=== PATIENT | female | born 1970 | race Caucasian/White ===

== ENCOUNTER 2022-10-20 08:52 | Outpatient (OUT) | payer OTHER, SELFPAY ==
--- NOTE | 2022-10-20 | CT_ITS ---
[address] [address] Patient Name: SAI BURRIS MRN: [id number] date: 1970 Sex: F Assigned Patient Location: CT Current Patient Location: Accession/Order Number: [id number] Exam Date: 10/20/2022 09:00 Report Date: 10/22/2022 09:53 At the request of: PAMELA MAK Procedure: CT lung screening low-dose EXAMINATION: CT lung screening low-dose HISTORY: ENCOUNTER FOR SCREENING FOR MALIGNANT NEOPLASM COMPARISON: No relevant comparison available. TECHNIQUE: Axial, Coronal, and Sagittal images were created without the administration of IV contrast material. Dose reduction techniques were achieved by using automated exposure control and/or adjustment of mA and/or kV according to patient size and/or use of iterative reconstruction technique. FINDINGS: LUNGS: No visible pulmonary disease. PLEURA: No mass, effusion, or pneumothorax. VASCULATURE: No abnormality. RUTHY: No mass or pathologic adenopathy. MEDIASTINUM: No mass or pathologic adenopathy. CARDIAC: No enlargement, pericardial thickening, or significant calcification. AORTA: No aneurysm or dissection. CHEST WALL: No mass or axillary adenopathy BONES: Prominent left convex curvature of thoracic spine. No fracture or bone lesion. LIMITED ABDOMEN: No suspicious findings. Limited images of the upper abdomen. OTHER: Negative. CT/CT lung screening low-dose IMPRESSION: 1. Lung-RADS Category 1 Negative. No nodules and definitely benign nodules. Continue annual screening with LDCT in 12 months. Electronically authenticated by: BRITNI HARRISON Date: 10/22/2022 09:53
== END 2022-10-20 08:53 | disposition home or self-care (01) ==
LOC: CT 08:52
PROVIDERS: PCP Nurse Practitioner Primary Care; Visit Provider Nurse Practitioner Primary Care
DX: Z12.2 Encounter for screening for malignant neoplasm of respiratory organs (principal)
CPT/HCPCS: 71271

== ENCOUNTER 2023-03-02 11:09 | Outpatient (OUT) | payer OTHER, SELFPAY ==
[2023-03-02 11:38] LABS: Basophils Absolute Auto 0.1 10^3/uL (0.0-0.1); Basophils Percent Auto 0.7 % (0.2-2.0); Eosinophils Absolute Auto 0.3 10^3/uL (0.0-0.7); Eosinophils Percent Auto 3.5 % (0.9-7.0); Hematocrit 43.2 % (36.0-48.0); Hemoglobin 14.2 g/dL (12.0-16.0); Immature Granulocytes Abs Auto 0.03 10^3/uL (0.00-0.03); Immature Granulocytes Pct Auto 0.3 % (0.0-0.5); Lymphocytes Absolute Auto 2.7 10^3/uL (1.2-3.8); Lymphocytes Percent Auto 29.1 % (20.5-60.0); Mean Corpuscular HGB Conc 32.9 g/dL (29.9-35.2); Mean Corpuscular Hemoglobin 30.3 pg (26.7-34.0); Mean Corpuscular Volume 92.3 fL (81.0-99.0); Mean Platelet Volume 11.4 fL (9.5-13.5); Monocytes Absolute Auto 0.7 10^3/uL (0.3-0.8); Monocytes Percent Auto 7.5 % (1.7-12.0); Neutrophils Absolute Auto 5.4 10^3/uL (1.4-6.5); Neutrophils Percent Auto 58.9 % (43.0-75.0); Platelet Count 213 10^3/uL (150-450); Red Blood Count 4.68 10^6/uL (4.20-5.40); Red Cell Distribution Width 13.2 % (11.0-15.0); White Blood Count 9.2 10^3/uL (4.0-11.0)
[2023-03-02 11:49] LABS: Estimated Average Glucose 111 mg/dL; Glycohemoglobin A1C 5.5 % (4.5-6.2)
== END 2023-03-02 11:10 | disposition home or self-care (01) ==
LOC: LAB 11:09
PROVIDERS: PCP Nurse Practitioner Primary Care; Visit Provider Nurse Practitioner Primary Care
DX: Z00.00 Encounter for general adult medical examination without abnormal findings (principal); Z13.6 Encounter for screening for cardiovascular disorders; Z11.59 Encounter for screening for other viral diseases; Z11.4 Encounter for screening for human immunodeficiency virus [HIV]; Z13.29 Encounter for screening for other suspected endocrine disorder
CPT/HCPCS: 36415; 80053; 80061; 83036; 84443; 85025; 86803; 87389

== ENCOUNTER 2023-03-07 15:50 | Outpatient (OUT) | payer OTHER, SELFPAY ==
--- OUTSIDE RECORDS SUMMARY | 2023-03-07 15:54 | XMS_ITS | CCD ---
Author Name Unknown Address [address] [place] [address] Organization [facility] Care Team Providers Care Dust Box Tender Name Role Phone Cristina Iqbal CNP Primary Care Provider Vipin Pina Attending Unavailable Roshni Werner Attending Unavailable Cristina Iqbal CNP Primary Care Provider [phone] CRISTINA IQBAL Primary Care Unavailable GEHLOT, UPENDER Attending Unavailable CRISTINA IQBAL Primary Care Unavailable KENNEDYOT, ALESSANDROENDER Attending Unavailable CRISTINA IQBAL Primary Care Unavailable GEHLOT, ALESSANDROENDER Attending Unavailable CRISTINA IQBAL Primary Care Unavailable GEHLOT, UPENDER Attending Unavailable Cristina Iqbal CNP Primary Care Provider [phone] Cristina Iqbal CNP Primary Care Provider [phone] Cristina Iqbal CNP Primary Care Provider [phone] CRISTINA IQBAL Primary Care Unavailable KIRSTEN DALTON Attending Unavailable CRISTINA IQBAL Primary Care Unavailable DAVIDI, ANASTASIYA Referring Unavailable DAVIDI, ANASTASIYA Attending Unavailable CRISTINA IQBAL Primary Care Unavailable DAVIDI, ANASTASIYA Attending Unavailable ROGER, CRISTINA ALEE Referring Unavailable AICHHOLZ, CRISTINA ALEE Primary Care Unavailable AICHSOPHEI, CRISTINA JO Primary Care Unavailable ROGER, CRISTINA ALEE Referring Unavailable TIFFANI MORALES Attending Unavailable FREDERICK CHAVES Attending Unavailable ROGER, CRISTINA VICKERS Primary Care Unavailable TIFFANI MORALES Referring Unavailable ROGER, CRISTINA ALEE Primary Care Unavailable TIFFANI MORALES Referring Unavailable TIFFANI MORALES Attending Unavailable [facility], CRISTINA ALEE Primary Care Unavailable YAN GARCIA JR Attending Unavailable [facility], [facility] Primary Care Unavailable ANASTASIYA MOSQUEDA Referring Unavailable [facility], [facility] Care Unavailable ANNELISE FRAZIER Admitting Unavailable ANNELISE FRAZIER Attending Unavailable ANNELISE FRAZIER Consulting Unavailable BELEN REGAN Consulting Unavailable IRINA SEGURA Admitting Unavailable IRINA SEGURA Attending Unavailable [facility], [facility] Primary Care Unavailable MISC, DR DECKER Consulting Unavailable GEHLOT, UPENDER Admitting Unavailable GEOT, UPENDER Attending Unavailable [facility], [facility] Referring Unavailable [facility], [facility] Primary Care Unavailable GEHLOT, UPENDER Consulting Unavailable BENEDICT, DR RYDER Admitting Unavailable BENEDICT, DR RYDER Attending Unavailable [facility], [facility] Primary Care Unavailable BENEDICT, DR RYDER Consulting Unavailable MISC, DR DECKER Admitting Unavailable MISC, DR DECKER Attending Unavailable [facility], [facility] Primary Care Unavailable MISC, DR DECKER Consulting Unavailable [facility] Primary Care Unavailable PAY ., DR ZULUAGA Admitting Unavailable PAY ., DR ZULUAGA Attending Unavailable PAY ., DR ZULUAGA Consulting Unavailable CHITRA ALFARO Consulting Unavailable [facility] Primary Care Unavailable PAY ., DR ZULUAGA Admitting Unavailable PAY ., DR ZULUAGA Attending Unavailable ZIEBER, DR BRITNI Wheeler Consulting Unavailable PAY ., DR ZULUAGA Consulting Unavailable [facility] Primary Care Unavailable TJ .GELA Admitting Unavailable GELA WESLEY Attending Unavailable BARBI HENRY Consulting Unavailable TJ ., GELA Consulting Unavailable Medications Current Medications Medication Drug Class(es) Dates Sig (Normalized) Sig (Original) albuterol 0.83 mg/ml inhalation solution (18 sources) beta2-Adrenergic Agonist Start: 07-16-2019 albuterol (PROVENTIL) 2.5 mg /3 mL (0.083 %) nebulizer solution 2.5 mg . 0 07/16/2019 Active ARIPiprazole 5 mg oral tablet (2 sources) Atypical Antipsychotic Start: 09-27-2021 take 1 tablet by mouth once daily ARIPiprazole (ABILIFY) 5 MG tablet Take 1 (one) tablet (5 mg total) by mouth daily . 30 tablet 2 09/27/2021 Active enteric contrast (will be provided with radiology test) (1 source) Start: 03-02-2022 End: 03-03-2022 enteric contrast (will be provided with radiology test) For CT ENTEROGRAPHY W IVCON order Administer, As Directed One Time Only, via Oral, Rectal, both Oral and Rectal, Enteric Tube, Stoma or Indwelling Catheter, Enteric Contrast as designated per enteric contrast guidelines. 1 Each 0 03/02/2022 03/03/2022 Active Comment on above: For CT ENTEROGRAPHY W IVCON order Administer, As Directed One Time Only, via Oral, Rectal, both Oral and Rectal, Enteric Tube, Stoma or Indwelling Catheter, Enteric Contrast as designated per enteric contrast guidelines. iv contrast (will be provided with radiology test) (1 source) Start: 03-02-2022 End: 03-03-2022 iv contrast (will be provided with radiology test) CT Enterography W Inject, intravenously, once for 1 dose.No IV access, insert saline lock prior to the beginning of sedation, infusion, injection of imaging exam. Discontinue saline lock post exam. If Pt. has a central line or IVAD, may access for administration according to line specific nursing protocol. Once exam is complete flush line and de-access according to line specific nursing protocol in the CT contrast administration guidelines link. 1 Each 0 03/02/2022 03/03/2022 Active Comment on above: CT Enterography W In ject, intravenously, once for 1 dose.No IV access, insert saline lock prior to the beginning of sedation, infusion, injection of imaging exam. Discontinue saline lock post exam. If Pt. has a central line or IVAD, may access for administration according to line specific nursing protocol. Once exam is complete flush line and de-access according to line specific nursing protocol in the CT contrast administration guidelines link. OLANZapine 5 mg oral tablet (20 sources) Atypical Antipsychotic Start: 04-20-2022 take 1 tablet by mouth once daily OLANZapine (ZYPREXA) 5 MG tablet Take 1 (one) tablet (5 mg total) by mouth nightly . 30 tablet 0 04/20/2022 Active Start: 12-19-2021 End: 04-20-2022 take 1 tablet by mouth once daily OLANZapine (ZYPREXA) 5 MG tablet Take 1 (one) tablet (5 mg total) by mouth nightly . 30 tablet 0 03/20/2022 04/20/2022 Discontinued (Reorder (Suppress CancelRx Message to Pharmacy)) Comment on above: Take 5 mg by mouth d aily at bedtime. ondansetron 8 mg disintegrating oral tablet (20 sources) Serotonin-3 Receptor Antagonist Start: 03-01-20 End: 11-07-19 take 1 tablet by mouth every twelve hours as needed ondansetron orally disintegrating (ZOFRAN ODT) 8 mg disintegrating tablet Take 1 tablet by mouth every 12 hours as needed for nausea/vomiting. 60 tablet 5 05/10/2022 11/06/2022 Active Start: 02-16-2022 End: 03-02-2022 take 1 tablet by mouth once daily as needed for nausea ondansetron (ZOFRAN) 4 mg tablet Take 1 tablet by mouth once daily as needed for nausea/vomiting (for nausea.) for up to 14 days. 30 tablet 0 02/16/2022 03/02/2022 Active Start: 01-05-2022 End: 02-04-2022 take 1 tablet by mouth every eight hours as needed ondansetron (ZOFRAN) 4 mg tablet Take 1 tablet by mouth every 8 hours as needed for nausea/vomiting (for nausea.). 90 tablet 0 01/05/2022 02/04/2022 Active Comment on above: Take 4 mg by mouth e very 8 hours as needed. Take 1 tablet by shahzad th every 8 hours as needed for nausea/vomiting (for nausea.). Take 1 tablet by shahzad th once daily as needed for nausea/vomiting (for nausea.) for up to 14 days. Take 1 tablet by shahzad th every 12 hours as needed for nausea/vomiting. pantoprazole 40 mg delayed release oral tablet (20 sources) Proton Pump Inhibitor Start: 07-16-19 20 pantoprazole (PROTONIX) 40 MG tablet Take 40 mg by mouth . 0 07/16/2019 Active Comment on above: Take 40 mg by mouth once daily. polyethylene glycol 3350 20518 mg powder for oral solution (18 sources) Osmotic Laxative Start: 05-24-19 21 polyethylene glycol (MIRALAX) 17 gram powder MIX 1 PACKET IN DRINK AND TAKE ONCE DAILY 0 05/23/2020 Active risperiDONE 2 mg oral tablet (16 sources) Atypical Antipsychotic Start: 10-29-19 End: 09-20-19 take 1 tablet by mouth once daily risperiDONE (RISPERDAL) 2 MG tablet Take 1 (one) tablet (2 mg total) by mouth daily . 30 tablet 5 09/19/2021 Active Start: 06-24-2020 End: 08-22-2020 take 1 tablet by mouth once daily risperiDONE (RISPERDAL) 4 MG tablet Take 1 (one) tablet (4 mg total) by mouth daily . 30 tablet 5 08/22/2020 Active 10 actuat tiotropium 0.0025 mg/actuat inhalation spray (20 sources) Anticholinergic Start: 07-04-2020 take 2 puff(s) by mouth once daily Spiriva Respimat 2.5 mcg/actuation Mist TAKE 2 PUFFS BY MOUTH EVERY DAY 0 07/04/2020 Active take 1 capsule by inhalation onc e daily tiotropium (SPIRIVA WITH HANDIHALER) 18 mcg inhalation capsule Inhale 18 mcg as instructed once daily. 0 Active Comment on above: Inhale 18 mcg as ins tructed once daily. Completed/Discontinued Medications Medication Drug Class(es) Dates Sig (Normalized) Sig (Original) ALPRAZolam 0.5 mg oral tablet (20 sources) Benzodiazepine Start: 05-31-2021 End: 07-11-2022 take 1 tablet by mouth every eight hours as needed ALPRAZolam (XANAX) 0.5 mg tablet Take 0.5 mg by mouth three times daily as needed. 0 12/20/2021 Active Start: 04-03-2021 take 1 tablet by [facility] three times daily as needed for anxiety ALPRAZolam (XANAX) 0.5 MG tablet Indications: Generalized anxiety disorder Take 1 (one) tablet (0.5 mg total) by mouth 3 (three) times a day as needed for sleep or anxiety . 90 tablet 0 04/03/2021 Active Start: 10-28-2020 End: 04-03-2021 take 1 tablet by mouth three times daily as needed for anxiety ALPRAZolam (XANAX) 0.5 MG tablet Indications: Generalized anxiety disorder Take 1 (one) tablet (0.5 mg total) by mouth 3 (three) times a day as needed for sleep or anxiety . 90 tablet 0 03/01/2021 04/03/2021 Discontinued (Reorder) Start: 07-04-2020 End: 08-22-2020 take 1 tablet by mouth three times daily as needed for anxiety ALPRAZolam (XANAX) 0.5 MG tablet Indications: Generalized anxiety disorder Take 1 (one) tablet (0.5 mg total) by mouth 3 (three) times a day as needed for sleep or anxiety . 90 tablet 1 08/22/2020 Active Comment on above: Take 0.5 mg by mouth three times daily as needed. clonazePAM 1 mg oral tablet (7 sources) Benzodiazepine End: 01-04-20 take 1 tablet by mouth every twelve hours as needed clonazePAM 1 mg tablet Take 1 mg by mouth twice daily as needed. 0 01/03/2022 Discontinued (Course of therapy completed) Comment on above: Take 1 mg by mouth t wice daily as needed. cloNIDine hydrochloride 0.2 mg oral tablet (20 sources) Central alpha-2 Adrenergic Agonist Start: 12-20-19 cloNIDine HCl (CATAPRES) 0.2 mg tablet Start: 10-28-2020 End: 10-03-2021 take 1 tablet by mouth once daily cloNIDine HCL (CATAPRES) 0.2 MG tablet Take 1 (one) tablet (0.2 mg total) by mouth nightly . 30 tablet 5 10/03/2021 Active Start: 06-16-2020 End: 08-22-2020 take 1 tablet by mouth once daily cloNIDine HCL (CATAPRES) 0.2 MG tablet Take 1 (one) tablet (0.2 mg total) by mouth nightly . 30 tablet 5 08/22/2020 Active diclofenac sodium 0.01 mg/mg topical gel (7 sources) Nonsteroidal Anti-inflammatory Drug Start: 10-24-2012 End: 01-03-2022 Diclofenac Sodium (VOLTAREN) 1 % gel Indications: Hand pain , Joint swelling apply 2gms to areas of joint pain up to four times a day. Avoid contact with eyes. Do not exceed 32gm/day 100 g 5 10/24/2012 01/03/2022 Discontinued (Course of therapy completed) Comment on above: apply 2gms to areas of joint pain up to four times a day. Avoid contact with eyes. Do not exceed 32gm/day fluticasone / salmeterol (7 sources) Corticosteroid, beta2-Adrenergic Agonist End: 01-03-2022 take 1 puff(s) by inhalation twice daily fluticasone-salme terol (ADVAIR DISKUS) 100-50 mcg/dose DsDv Inhale 1 Puff as instructed twice daily. 0 01/03/2022 Discontinued (Course of therapy completed) take 1 puff(s) by in halation twice daily fluticasone-salmeterol (ADVAIR DISKUS) 1 00-50 mcg/dose DsDv Inhale 1 Puff as instructed twice daily. 0 Active Comment on above: Inhale 1 Puff as ins tructed twice daily. gabapentin 100 mg oral capsule (7 sources) Anti-epileptic Agent Start: 10-25-19 End: 01-04-20 22 gabapentin (NEURONTIN) 100 mg capsule Indications: Hand pain , Numbness and tingling , Neuropathy Take 1cap nightly x 3-5days, increase 1cap every 3-5days until 3caps AM/3caps noon/3capsPM thereafter if tolerated/necessary. 270 capsule 3 10/24/2012 01/03/2022 Discontinued (Course of therapy completed) Comment on above: Take 1cap nightly x 3-5days, increase 1cap every 3-5days until 3caps AM/3caps noon/3capsPM thereafter if tolerated/necessary. hydrOXYzine pamoate 25 mg oral capsule (7 sources) Antihistamine End: 01-04-20 take 1 capsule by mouth every eight hours as needed hydrOXYzine pamoate 25 mg capsule Take 25 mg by mouth three times daily as needed. 0 01/03/2022 Discontinued (Course of therapy completed) Comment on above: Take 25 mg by mouth three times daily as needed. lamoTRIgine 200 mg oral tablet (20 sources) Mood Stabilizer, Anti-epileptic Agent Start: 12-20-19 22 lamoTRIgine (LAMICTAL) 200 mg tablet Take 200 mg by mouth. 0 12/19/2021 Active Start: 10-28-2020 End: 10-03-2021 take 1 tablet by mouth once daily lamoTRIgine (LAMICTAL) 200 MG tablet Take 1 (one) tablet (200 mg total) by mouth daily . 30 tablet 5 10/03/2021 Active Start: 08-29-2020 take 1 tablet by shahzad th once daily lamoTRIgine (LAMICTAL) 200 MG tablet Take 1 (one) tablet (200 mg total) by mouth daily Start: 08/29/20. 30 tablet 1 08/29/2020 Active Start: 07-08-2020 End: 08-22-2020 lamoTRIgine (LAMICTAL) 25 MG tablet Comment on above: Take 200 mg by mouth . metoclopramide 10 mg oral tablet (1 source) Dopamine-2 Receptor Antagonist Start: 2021 End: 2021 take 1 tablet by mouth every eight hours as needed metoclopramide HCl (REGLAN) 10 mg tablet Take 10 mg by mouth every 8 hours as needed. 0 12/11/2021 01/05/2022 Discontinued (Course of therapy completed) Comment on above: Take 10 mg by mouth every 8 hours as needed. 24 hr nicotine 0.875 mg/hr transdermal system (7 sources) Cholinergic Nicotinic Agonist Start: 2012 End: 2021 apply 1 dose transdermal route every twenty-four hours nicotine 21 mg/24 hr Indications: Tobacco abuse Apply 1 Patch as directed every 24 hours. 30 Patch 3 10/24/2012 01/03/2022 Discontinued (Course of therapy completed) Comment on above: Apply 1 Patch as dir ected every 24 hours. prazosin 2 mg oral capsule (7 sources) alpha-Adrenergic Cari End: 2021 take 1 capsule by mouth twice daily prazosin 2 mg cap Take by mouth twice daily. 0 01/03/2022 Discontinued (Course of therapy completed) Comment on above: Take by mouth twice daily. prochlorperazine 5 mg oral tablet (15 sources) Phenothiazine Start: 2021 End: 2021 take 1 tablet by mouth every six hours as needed for nausea and vomiting prochlorperazine (COMPAZINE) 5 mg tablet TAKE 1 TABLET BY MOUTH EVERY 6 HOURS NEEDED FOR NAUSEA AND VOMITING 100 tablet 1 03/14/2022 Active Start: 01-05-2022 End: 02-04-2022 take 1 tablet by mouth every six hours as needed prochlorperazine (COMPAZINE) 5 mg tablet Take 1 tablet by mouth every 6 hours as needed for nausea/vomiting. 120 tablet 0 01/05/2022 02/04/2022 Active Comment on above: Take 1 tablet by shahzad th every 6 hours as needed for nausea/vomiting. TAKE 1 TABLET BY SHAHZAD TH EVERY 6 HOURS NEEDED FOR NAUSEA AND VOMITING sertraline 100 mg oral tablet (7 sources) Serotonin Reuptake Inhibitor End: 01-04-20 take 1 tablet by mouth once daily sertraline 100 mg tablet Take 100 mg by mouth once daily. 0 01/03/2022 Discontinued (Course of therapy completed) Comment on above: Take 100 mg by mouth once daily. 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] Onset: 3 Chronic Chronic obstructive pulmonary disease and bronchiectasis (19 sources) Chronic obstructive lung disease; Translations: [Chronic obstructive pulmonary disease, unspecified] Onset: 1 07-18-2020 Chronic Esophageal disorders (19 sources) Gastroesophageal reflux disease; Translations: [Gastro-esophageal reflux disease without esophagitis] Onset: 1 07-18-2020 Chronic Gastritis and duodenitis (1 source) Unspecified chronic gastritis without bleeding; Translations: [UNS CHRONIC GASTRITIS W/O BLEEDING] Onset: 2 Chronic Mood disorders (20 sources) Moderate mixed bipolar I disorder; Translations: [Bipolar disorder, current episode mixed, moderate] Onset: 1 Chronic Nutritional deficiencies (14 sources) Deficiency of macronutrients; Translations: [Unspecified severe protein-calorie malnutrition] Onset: 2 Chronic Other aftercare (5 sources) H/O: high risk medication; Translations: [Other extermination inspector (current) drug therapy] Episodic Other and unspecified benign neoplasm (1 source) Intestinal polyposis syndrome; Translations: [Benign neoplasm of colon, unspecified] Episodic Other circulatory disease (20 sources) Raynaud's phenomenon; Translations: [Raynaud's syndrome without gangrene] Onset: 3 10-24-2012 Chronic Other gastrointestinal disorders (1 source) Irritable bowel syndrome without diarrhea; Translations: [IRRITABLE BOWEL SYND W/O DIARRHEA] Onset: 2 Chronic Other gastrointestinal disorders (1 source) Polyp of small intestine; Translations: [Other specified diseases of intestine] Episodic Other nervous system disorders (20 sources) Neuropathy; Translations: [Polyneuropathy, unspecified] Onset: 3 10-24-2012 Chronic Other nervous system disorders (1 source) Other chronic pain; Translations: [OTHER CHRONIC PAIN] Onset: 2 Chronic Other nervous system disorders (1 source) Other symptoms and signs involving cognitive functions and awareness; Translations: [OTH SX SIGNS COG FUNC AND AWARENESS] Onset: 3 Episodic Other nutritional; endocrine; and metabolic disorders (3 sources) Weight loss; Translations: [Abnormal weight loss] Episodic Residual codes; unclassified (18 sources) Sleep apnea; Translations: [Sleep apnea, unspecified] Onset: 1 07-18-2020 Chronic Residual codes; unclassified (4 sources) Obstructive sleep apnea (adult) (pediatric); Translations: [OBSTRUCTIVE SLEEP APNEA] Onset: 3 Chronic Residual codes; unclassified (4 sources) Transient alteration of awareness; Translations: [TRANSIENT ALTERATION OF AWARENESS] Onset: 3 Episodic Substance-related disorders (1 source) Nicotine dependence, cigarettes, uncomplicated; Translations: [NICOTINE DEPEND CIGARETTES UNCOMP] Onset: 2 Chronic Unclassified (1 source) APPOINTMENT CANCELLED Unclassified (2 sources) Medication Management Onset: 1 Past or Other Problems Problem Classification Problem Date Documented Da te Episodic/Chronic Abdominal pain (12 sources) Left upper quadrant pain; Translations: [Left upper quadrant pain] Onset: 11-14-2021 Episodic Fluid and electrolyte disorders (1 source) Dehydration; Translations: [DEHYDRATION] Onset: 12-13-2021 Episodic Genitourinary symptoms and ill-defined conditions (1 source) Personal history of urinary (tract) infections; Translations: [PERS HX URINARY TRACT INFECTIONS] Onset: 11-16-2021 Episodic Immunizations and screening for infectious disease (20 sources) Anti-nuclear factor positive; Translations: [Other specified abnormal immunological findings in serum] Onset: 10-24-2012 10-24-2012 Episodic Nausea and vomiting (7 sources) Nausea and vomiting; Translations: [Nausea with vomiting, unspecified] Onset: 11-13-2021 Episodic Nonspecific chest pain (5 sources) Chest pain, unspecified; Translations: [Other chest pain] Onset: 2021 Episodic Other aftercare (7 sources) Other jail (current) drug therapy; Translations: [Other jail (current) drug therapy] Onset: 09-19-2021 Episodic Other circulatory disease (18 sources) Low blood pressure; Translations: [Hypotension, unspecified] Onset: 07-18-2020 07-18-2020 Episodic Other connective tissue disease (20 sources) Hand pain; Translations: [Pain in unspecified hand] Onset: 10-24-2012 10-24-2012 Episodic Other gastrointestinal disorders (18 sources) Incontinence of feces; Translations: [Full incontinence of feces] Onset: 07-18-2020 07-18-2020 Episodic Other gastrointestinal disorders (1 source) Diarrhea, unspecified; Translations: [DIARRHEA UNSPECIFIED] Onset: 11-13-2021 Episodic Other nervous system disorders (20 sources) Numbness and tingling sensation of skin; Translations: [Anesthesia of skin] Onset: 10-24-2012 10-24-2012 Episodic Other non-traumatic joint disorders (20 sources) Joint swelling; Translations: [Effusion, unspecified joint] Onset: 10-24-2012 10-24-2012 Episodic Other nutritional; endocrine; and metabolic disorders (1 source) Abnormal weight loss; Translations: [Weight loss] Onset: 12-15-2021 Episodic Other screening for suspected conditions (not mental disorders or infectious disease) (20 sources) Elevated C-reactive protein; Translations: [Elevated C-reactive protein (CRP)] Onset: 10-24-2012 10-24-2012 Episodic Residual codes; unclassified (20 sources) FH: Rheumatoid arthritis; Translations: [Family history of arthritis] Onset: 10-24-2012 10-24-2012 Episodic Residual codes; unclassified (20 sources) Tobacco user; Translations: [Tobacco use] Onset: 10-24-2012 10-24-2012 Episodic Residual codes; unclassified (1 source) Acquired absence of both cervix and uterus; Translations: [ACQUIRED ABSENCE BOTH CERVIX AND UTERUS] Onset: 11-16-2021 Episodic Residual codes; unclassified (1 source) Acquired absence of other specified parts of digestive tract; Translations: [ACQ ABSENCE OTH PART DIGESTV TRACT] Onset: 2021 Episodic Substance-related disorders (1 source) Cannabis use, unspecified, uncomplicated; Translations: [CANNABIS USE UNS UNCOMPLICATED] Onset: 2021 Episodic Viral infection (1 source) Zoster without complications; Translations: [ZOSTER WITHOUT COMPLICATIONS] Onset: 2021 Episodic Results Test Name Value Interpretation Reference Range Facility [facility] SAI PINEDA ([id number]) 1970 F Date Time Provider Department 05/08/22 TIFFANI MORALES [id number] During your visit today, we recorded the following information about you: Eva Chong 05/08/2022 10:45 AM Signed 05/08/22 Patient calling to see if Dr Morales will write her a script for Zofran nausea medication strips. [facility] in [place] [phone] Eva Covarrubias RN 05/11/2022 10:05 AM Signed Called pt and let her know Dr. Morales said if med helping her symptoms, she was fine to re-order and she did. Pt said it has been helping very much. Has follow up appt scheduled in mid May but reviewed with something changes to let MD know. Magda Covarrubias RN Allergies As of Date: 05/08/2022 (No Known Allergies) Date Reviewed: 04/04/2022 Reviewed by: Eduardo Harrington RN - Fully Assessed Reason for Visit: Patient Question [6837] Order(s):ondansetron orally disintegrating (ZOFRAN ODT) 8 mg disintegrating tabletTake 1 tablet by mouth every 12 hours as needed for nausea/vomiting.Disp: 60 tabletRfl: 5 Prescriptions as of 05/11/2022 - ondansetron orally disintegrating (ZOFRAN ODT) 8 mg disintegrating tablet Take 1 tablet by mouth every 12 hours as needed for nausea/vomiting. - prochlorperazine (COMPAZINE) 5 mg tablet TAKE 1 TABLET BY MOUTH EVERY 6 HOURS NEEDED FOR NAUSEA AND VOMITING - ALPRAZolam (XANAX) 0.5 mg tablet Take 0.5 mg by mouth three times daily as needed. - cloNIDine HCl (CATAPRES) 0.2 mg tablet - lamoTRIgine (LAMICTAL) 200 mg tablet Take 200 mg by mouth. - OLANZapine 5 mg tablet Take 5 mg by mouth daily at bedtime. - pantoprazole 40 mg tablet Take 40 mg by mouth once daily. - tiotropium (SPIRIVA WITH HANDIHALER) 18 mcg inhalation capsule Inhale 18 mcg as instructed once daily. Problem List As Of Date 05/08/2022 Noted Resolved Hand pain [M79.643] 10/24/2012 Joint swelling [M25.40] 10/24/2012 DESMOND positive [R76.8] 10/24/2012 Elevated C-reactive protein (CRP) [R79.82] 10/24/2012 Family history of rheumatoid arthritis [Z82.61] 10/24/2012 Tobacco abuse [Z72.0] 10/24/2012 Numbness and tingling [R20.0, R20.2] 10/24/2012 Neuropathy [G62.9] 10/24/2012 Raynauds phenomenon [I73.00] 10/24/2012 Severe protein-calorie malnutrition (HCC) [E43] 03/02/2022 Prescriptions ordered this encounter Disp Refills Start End ONDANSETRON 8 MG DISINTEGRATING TABL* 60 t* 5 05/10/2022 11/06/2022 Route: ORAL Sig: Take 1 tablet by mouth every 12 hours as needed for nausea/vomiting. Medications Discontinued During This Encounter Prescriptions - ondansetron orally disintegrating (ZOFRAN ODT) 8 mg disintegrating tablet (Discontinued) Take 1 tablet by mouth every 12 hours as needed for nausea/vomiting. Encounter Status:Closed by TIFFANI MORALES on 05/10/22 Normal [facility] COPPER, SERUM or PLASMAon Copper, Serum 129 ug/dL Normal 80-158 [facility] Comment on above: Result Comment: Dete ction Limit = 5 Performed By: #### C OPPER #### [facility] [address] [address] [address] Prince Olivas FATTY ACID PROFILEon 023 a-Linolenic Acid C18:3w3 81 nmol/mL Normal 20-200 [facility] Comment on above: Performed By: #### M MA2 #### [facility] [address] [address] [address] Prince Olivas Arachidic Acid C20:0 31 nmol/mL Normal 8-43 [facility] Comment on above: Performed By: #### M MA2 #### [facility] [address] [address] [address] Prince Olivas Arachidonic Acid, C20:4w6 943 nmol/mL Normal 310-1420 [facility] Comment on above: Performed By: #### M MA2 #### [facility] [address] [address] [address] Prince Olivas DHA, C22:6w3 85 nmol/mL Normal 45-365 [facility] Comment on above: Performed By: #### M MA2 #### [facility] [address] [address] [address] Prince Olivas Docosenoic Acid C22:1 5 nmol/mL Normal 1-10 [facility] Comment on above: Performed By: #### M MA2 #### [facility] [address] [address] [address] Prince Olivas DPA, C22:5w3 58 nmol/mL Normal 13-75 [facility] Comment on above: Performed By: #### M MA2 #### [facility] [address] [address] [address] Prince Olivas DPA, C22:5w6 18 nmol/mL Normal 6-55 [facility] Comment on above: Performed By: #### M MA2 #### [facility] [address] [address] [address] Prince Olivas DTA, C22:4w6 28 nmol/mL Normal 10-40 [facility] Comment on above: Performed By: #### M MA2 #### [facility] [address] [address] [address] Prince HARRIS Fatty Acid Profile, [facility] See Note Normal [facility] Comment on above: Result Comment: Auth orized individuals can access the [facility] Enhanced Report using the following link: [email or web address] Performed By: #### M MA2 #### [facility] [address] [address] [address] Prince Olivas EPA, C20:5w3 90 nmol/mL Normal 8-130 [facility] Comment on above: Performed By: #### Marine MA2 #### [facility] [address] [address] [address] Prince Olivas g-Linolenic Acid C18:3w6 139 nmol/mL Critically high 10-120 [facility] Comment on above: Performed By: #### Marine MA2 #### [facility] [address] [address] [address] Prince Olivas u-x-Etmdmavwd Acid C20:3w6 211 nmol/mL Normal 45-340 [facility] Comment on above: Performed By: #### Marine MA2 #### [facility] [address] [address] [address] Prince Olivas Hexadecenoic Acid C16:1w9 56 nmol/mL Normal 14-95 [facility] Comment on above: Performed By: #### Marine MA2 #### [facility] [address] [address] [address] Prince Olivas Image . Normal [facility] Comment on above: Performed By: #### Marine CAMPBELL2 #### [facility] [address] [address] [address] Prince Olivas Interp, Fatty Acids Profile SP See Note Normal [facility] Comment on above: Result Comment: Incr eased concentration of omega-6 gamma-linolenic acid, possibly reflecting dietary artifacts. INTERPRETIVE INFORMATION: Fatty Acids Profile, Essential Ser/Plas This test does not screen for disorders of peroxisomal biogenesis/function. This test was developed and its performance characteristics determined by [employer]. It has not been cleared or approved by the [place] Food and Drug Administration. This test was performed in a CLIA certified laboratory and is intended for clinical purposes. Performed By: #### M MA2 #### [facility] [address] [address] [address] Prince Olivas Lauric Acid C12:0 12 nmol/mL Normal 1-200 [facility] Comment on above: Performed By: #### M MA2 #### [facility] [address] [place] [address] Dr. Prince Olivas Linoleic Acid C18:2w6 3844 nmol/mL Normal 5721-0436 [facility] Comment on above: Performed By: #### M MA2 #### [facility] [address] [place] [address] Dr. Prince Olivas Newton Acid C20:3w9 29 nmol/mL Normal 1-35 [facility] Comment on above: Performed By: #### Marine MA2 #### [facility] [address] [place] [address] Dr. Prince Olivas Myristic Acid C14:0 178 nmol/mL Normal 20-520 [facility] Comment on above: Performed By: #### Marine MA2 #### [facility] [address] [place] [address] Dr. Prince Olivas Nervonic Acid C24:1w9 138 nmol/mL Normal 35-145 [facility] Comment on above: Performed By: #### M MA2 #### [facility] [address] [place] [address] Dr. Prince Olivas Oleic Acid C18:1w9 2898 nmol/mL Normal 740-3900 [facility] Comment on above: Performed By: #### Marine MA2 #### [facility] [address] [address] [address] Prince Olivas Palmitic Acid C16:0 3316 nmol/mL Normal 0479-8627 [facility] Comment on above: Performed By: #### Marine MA2 #### [facility] [address] [address] [address] Prince Olivas Palmitoleic Acid C16:1w7 355 nmol/mL Normal 35-580 [facility] Comment on above: Performed By: #### M MA2 #### [facility] [address] [address] [address] Prince Olivas Stearic Acid C18:0 1072 nmol/mL Normal 280-1250 [facility] Comment on above: Performed By: #### M MA2 #### [facility] [address] [address] [address] Prince Olivas Total Fatty Acids 13.7 mmol/L Normal 4.5-15.0 [facility] Comment on above: Performed By: #### M MA2 #### [facility] [address] [address] [address] Prince Olivas Total Monounsaturated Acid 3.6 mmol/L [facility] 0.9-4.7 [facility] Comment on above: Performed By: #### Marine MA2 #### [facility] [address] [address] [address] Prince Olivas Total Polyunsaturated Acid 5.5 mmol/L Normal 2.1-6.2 [facility] Comment on above: Performed By: #### Marine MA2 #### [facility] [address] [address] [address] Prince Olivas Total Saturated Acid 4.6 mmol/L Normal 1.5-5.3 [facility] Comment on above: Performed By: #### M MA2 #### [facility] [address] [address] [address] Prince Olivas Total w3 0.31 mmol/L Normal 0.12-0.55 [facility] Comment on above: Performed By: #### M MA2 #### [facility] [address] [address] [address] Prince Olivas Total w6 5.2 mmol/L Normal 1.8-5.7 [facility] Comment on above: Performed By: #### Marine MA2 #### [facility] [address] [address] [address] Prince Olivas Triene Tetraene Ratio 0.031 Normal 0.004-0.051 [facility] Comment on above: Performed By: #### M MA2 #### [facility] [address] [place] [address] Dr. Prince Olivas Vaccenic Acid C18:1w7 149 nmol/mL Normal 50-250 [facility] Comment on above: Performed By: #### M MA2 #### [facility] [address] [place] [address] Dr. Prince Olivas VITAMIN Aon 04-06-2022 Vitamin A 54.9 ug/dL Normal 20.1-62.0 [facility] Comment on above: Result Comment: Refe rence intervals for vitamin A determined from [facility] internal studies. Individuals with vitamin A less than 20 ug/dL are considered vitamin A deficient and those with serum concentrations less than 10 ug/dL are considered severely deficient. . This test was developed and its performance characteristics determined by [facility]. It has not been cleared or approved by the Food and Drug Administration. Performed By: #### M ADRIAN2 #### [facility] [address] [place] [address] Dr. Prince Olivas VITAMIN Luciano 04-06-2022 Vitamin E (Alpha T) 9.9 mg/L Normal 7.0-25.1 [facility] Comment on above: Performed By: #### S SKYLER #### [facility] [address] [place] [address] Dr. Prince Olivas Vitamin E (Gamma T) 2.1 mg/L Normal 0.5-5.5 [facility] Comment on above: Result Comment: Refe rence intervals for alpha and gamma-tocopherol determined from National Health and Nutrition Examination Survey, 0698-3704. Individuals with alpha-tocopherol levels less than 5.0 mg/L are considered vitamin E deficient. Performed By: #### S ELEDISON #### [facility] [address] [place] [address] Dr. Prince Olivas ZINC SERUM OR PLASMAon 04-06 Zinc, Plasma or Serum 75 ug/dL Normal 44-115 [facility] Comment on above: Result Comment: Dete ction Limit = 5 Performed By: #### L IPID, CMP #### [facility] [address] [place] [address] Dr. Prince Pinon 04-05-2022 CNPN Telephone (GASTA5) SAI PINEDA ([id number]) 1970 F Date Time Provider Department 04/05/22 TIFFANI MORALES GASTA5 During your visit today, we recorded the following information about you: Eva Chong 04/05/2022 9:31 AM Signed 04/05/22 Patient wants tow know if y script you can send her script for ZOFRAN, under the tongue tablets. For nausea. Eva Allergies As of Date: 04/05/2022 (No Known Allergies) Date Reviewed: 04/04/2022 Reviewed by: Eduardo Harrington RN - Fully Assessed Reason for Visit: Refill Request [94] Order(s):ondansetron orally disintegrating (ZOFRAN ODT) 8 mg disintegrating tabletTake 1 tablet by mouth every 12 hours as needed for nausea/vomiting.Disp: 60 tabletRfl: 1 Prescriptions as of 04/05/2022 - ondansetron orally disintegrating (ZOFRAN ODT) 8 mg disintegrating tablet Take 1 tablet by mouth every 12 hours as needed for nausea/vomiting. - prochlorperazine (COMPAZINE) 5 mg tablet TAKE 1 TABLET BY MOUTH EVERY 6 HOURS NEEDED FOR NAUSEA AND VOMITING - ALPRAZolam (XANAX) 0.5 mg tablet Take 0.5 mg by mouth three times daily as needed. - cloNIDine HCl (CATAPRES) 0.2 mg tablet - lamoTRIgine (LAMICTAL) 200 mg tablet Take 200 mg by mouth. - OLANZapine 5 mg tablet Take 5 mg by mouth daily at bedtime. - pantoprazole 40 mg tablet Take 40 mg by mouth once daily. - tiotropium (SPIRIVA WITH HANDIHALER) 18 mcg inhalation capsule Inhale 18 mcg as instructed once daily. Problem List As Of Date 04/05/2022 Noted Resolved Hand pain [M79.643] 10/24/2012 Joint swelling [M25.40] 10/24/2012 DESMOND positive [R76.8] 10/24/2012 Elevated C-reactive protein (CRP) [R79.82] 10/24/2012 Family history of rheumatoid arthritis [Z82.61] 10/24/2012 Tobacco abuse [Z72.0] 10/24/2012 Numbness and tingling [R20.0, R20.2] 10/24/2012 Neuropathy [G62.9] 10/24/2012 Raynauds phenomenon [I73.00] 10/24/2012 Severe protein-calorie malnutrition (HCC) [E43] 03/02/2022 Prescriptions ordered this encounter Disp Refills Start End ONDANSETRON 8 MG DISINTEGRATING TABL* 60 t* 1 04/05/2022 Route: ORAL Sig: Take 1 tablet by mouth every 12 hours as needed for nausea/vomiting. Medications Discontinued During This Encounter Prescriptions - ondansetron orally disintegrating (ZOFRAN ODT) 8 mg disintegrating tablet (Discontinued) Take 1 tablet by mouth every 12 hours as needed for nausea/vomiting. Encounter Status:Closed by TIFFANI MORALES on 04/05/22 Normal [facility] METHYLMALONIC ACID (MMA)on 0 04-05-2022 Methylmalonic Acid, Serum 498 nmol/L Critically high 0-378 [facility] Comment on above: Performed By: #### M MA2 #### [facility] [address] [place] [address] Dr. Prince Olivas ANES POSTPROC EVALon 023 ANES POSTPROC EVAL HNO ID: [id number] Author: Altagracia Salvador MD Service: ? 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 Post Anesthesia Patient Status Patient Evaluation: PACU. PACU/ICU Patient Condition: stable. Anticipated Disposition: phase 2 then home. Neurological Status: aware and responsive. Pulmonary Status: breathing comfortably on supplemental oxygen Airway Control: returned to baseline unsupported. Cardiovascular Status: stable. Pain Management: clinically adequate Postoperative Hydration: acceptable. Intraoperative Events: no significant anesthesia events Post Operative Nausea/Vomiting Status: no significant post operative nausea or vomiting Recommendation: continue current plan of care. Anesthesia Observations No notable events were associated with this procedure. Documented by Frederick Chaves APRN.[employer] 04/04/2022 3:31 PM EST SIGNATURE: Altagracia Salvador MD PATIENT NAME: Sai Pineda DATE: April 04, 2022 TIME: 3:51 PM CSN: [id number] Normal [facility] ANES PRE-OPon 04-04-2022 ANES PRE-OP HNO ID: [id number] Author: Altagracia Salvador MD Service: ? Author Type: Anesthesiologist Type: Anesthesia Preprocedure Evaluation Filed: 04/04/2022 12:56 PM Note Text: ANESTHESIOLOGY DAY OF SURGERY NOTE : 1970 Procedure Information Date/Time: 04/04/22 1300 Scheduled providers: Tiffani Morales MD; Altagracia Salvador MD; Frederick Chaves APRN.[employer] Procedure: ENTEROSCOPY Location: Gastroenterology Estimated body mass index is 15.36 kg/m? as calculated from the following: Height as of this encounter: 172.7 cm (5' 8 ). Weight as of this encounter: 45.8 kg (101 lb). Most recent hematocrit and potassium results: No results found for this basename: HCT,HEMATOCRIT,K,POTAS SIUM +COPD I - PHYSICAL EVALUATION AIRWAY Patient intubated: No. Tracheostomy tube not present Mallampati: II. TM distance: >3 FB. Neck ROM: full ROM without neurological symptoms. Mouth opening: adequate. Short neck: no. Thick neck: no Merino present: no DENTAL Dental findings: edentulous. Dentures, upper: complete. Dentures, lower: complete. II - ANESTHESIA PLAN ASA Score: 3 Anesthetic Plan: general Airway type: ETT The patient is a current smoker. NPO Status: adequate Beta Cari Monitoring Plan Monitoring plan: standard ASA. Post Procedure Analgesic Plan Postoperative analgesic plan: per surgical service. Informed Consent Anesthetic risks, benefits, alternatives, personnel and consent discussed: yes. Patient / Responsible Republican agrees to proceed: yes Patient / Surrogate agrees to blood products: Yes Significant changes in the patient condition since the History and Physical, not otherwise documented in primary service progress note: no. Potential Anesthesia issues that may suggest increased risk of complications or contraindication to planned procedure: none. Vitals Value Taken Time BP 108/67 04/04/22 1251 Pulse 90 04/04/22 1251 Resp 18 04/04/22 1251 Temp 37 ?C (98.6 ?F) 04/04/22 1251 SpO2 93 % 04/04/22 1251 Outpatient Medications as of 04/04/2022 Medication Sig - prochlorperazine (COMPAZINE) 5 mg tablet TAKE 1 TABLET BY MOUTH EVERY 6 HOURS NEEDED FOR NAUSEA AND VOMITING - ondansetron orally disintegrating (ZOFRAN ODT) 8 mg disintegrating tablet Take 1 tablet by mouth every 12 hours as needed for nausea/vomiting. - ALPRAZolam (XANAX) 0.5 mg tablet Take 0.5 mg by mouth three times daily as needed. - cloNIDine HCl (CATAPRES) 0.2 mg tablet - lamoTRIgine (LAMICTAL) 200 mg tablet Take 200 mg by mouth. - OLANZapine 5 mg tablet Take 5 mg by mouth daily at bedtime. - pantoprazole 40 mg tablet Take 40 mg by mouth once daily. - tiotropium (SPIRIVA WITH HANDIHALER) 18 mcg inhalation capsule Inhale 18 mcg as instructed once daily. No current facility-administered medications on file as of 04/04/2022. I have interviewed and examined the patient. I have reviewed the medical record and/or the pre-anesthesia evaluation, pertinent labs, and test results. This contains updated information obtained within 48 hours of Surgery/Procedure. 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 No clear liquids within 2 hours. PAST ANESTHESIA HISTORY: No history of adverse anesthesia event PAST MEDICAL HISTORY: PAST MEDICAL HISTORY Diagnosis Date COPD (chronic obstructive pulmonary disease) (HCC) PAST SURGICAL HISTORY: PAST SURGICAL HISTORY Procedure Laterality Date APPENDECTOMY HX REMOVAL GALLBLADDER TOTAL ABDOM HYSTERECTOMY CURRENT MEDICATIONS: Prior to Admission medications as of 04/04/22 1251 Medication Sig Last Dose Taking prochlorperazine (COMPAZINE) 5 mg tablet TAKE 1 TABLET BY MOUTH EVERY 6 HOURS NEEDED FOR NAUSEA AND VOMITING ondansetron orally disintegrating (ZOFRAN ODT) 8 mg disintegrating tablet Take 1 tablet by mouth every 12 hours as needed for nausea/vomiting. ALPRAZolam (XANAX) 0.5 mg tablet Take 0.5 mg by mouth three times daily as needed. cloNIDine HCl (CATAPRES) 0.2 mg tablet lamoTRIgine (LAMICTAL) 200 mg tablet Take 200 mg by mouth. OLANZapine 5 mg tablet Take 5 mg by mouth daily at bedtime. pantoprazole 40 mg tablet Take 40 mg by mouth once daily. tiotropium (SPIRIVA WITH HANDIHALER) 18 mcg inhalation capsule Inhale 18 mcg as instructed once daily. ALLERGIES: ALLERGIES No Known Allergies OBJECTIVE PHYSICAL EXAM: BP: 108/67 Temp: 37 ?C (98.6 ?F) Pulse: 90 Resp: 18 O2 Therapy: Room Air SpO2: 93 % AIRWAY: Patent, Full neck flexion and extension, Mallampati 1. LUNGS: Normal respiratory effort CARDIAC: PPP, normal HS, no murmur ABDOMEN: Soft, non-tender, no masses SIGNATURE: Tiffani Morales MD PATIENT NAME: Sai Pineda DATE: 04/04/2022 TIME: 1302 Normal [facility] METHYLMALONIC ACID (MMA)on 0 04-04-2022 Methylmalonic Acid, Serum 397 nmol/L Critically high 0-378 [facility] Comment on above: Performed By: #### M GA2 #### [facility] [address] [place] [address] Dr. Prince Olivas NURSING PROGon 04-04-2022 NURSING PROG HNO ID: [id number] Author: Eduardo Harrington RN Service: Nursing Author Type: Registered Nurse Type: Nursing Progress Note Filed: 04/04/2022 3:24 PM Note Text: AMBULATORY PATIENT EDUCATION NOTE TOPIC: GI PROCEDURES: Enteroscopy READINESS TO LEARN INSTRUCTION PROVIDED TO: Patient, readness to learn accessed prior to procedure COGNITIVE ABILITY: Alert and oriented PTED MOTIVATION TO LEARN: Eager FAMILY SUPPORT: High - Very involved in pt care IPATIENT LEARNS BEST BY: Individual Instruction Written Instruction - Hand-outs Verbal Instruction FACTORS AFFECTING LEARNING: None PHYSICAL LIMITATIONS AFFECTING LEARNING: None LEARNING RESPONSE METHOD OF INSTRUCTION: Individual instruction PATIENT / FAMILY RESPONSE: Verbalizes understanding of: WORSENING CONDITION-Signs and symptoms of a worsening condition that warrant a call to the physician FOLLOW-UP PLAN: Recommend - Recommend continued instruction and follow up as directed Contact information given. SUPPLEMENTAL MATERIAL: Procedure Discharge Instructions REFERRAL (RECOMMENDATION): None Electronically Signed By: Eduardo Harrington RN Normal [facility] NURSING PROG HNO ID: [id number] Author: Rima Kirk RN Service: Nursing Author Type: Registered Nurse Type: Nursing Progress Note Filed: 04/04/2022 12:48 PM Note Text: PRE OP LEARNING ASSESSMENT PROCEDURE/SURGERY: GI PROCEDURES: enteroscopy READINESS TO LEARN COGNITIVE ABILITY: Alert and oriented MOTIVATION TO LEARN: Eager Interested FAMILY SUPPORT: High - Very involved in pt care PATIENT LEARNS BEST BY: Individual Instruction Written Instruction - Hand-outs Verbal Instruction FACTORS AFFECTING LEARNING: None PHYSICAL LIMITATIONS AFFECTING LEARNING: None Electronically Signed By: Rima Kirk RN In Department: GASTROENTEROLOGY Normal [facility] SELENIUM, PLASMAon 3 Selenium, Serum/Plasma 124 ug/L Normal 93-198 [facility] Comment on above: Performed By: #### S ELNIUM #### [facility] [address] [address] [address] Prince Olivas SURGICAL PATHOLOGYon 023 CASE REPORT Normal [facility] Comment on above: Order Comment: Speci men Type: TISSUE SPECIMENOrdering Facility: [facility] Address: [address] [place] [address] Result Comment: Surg ica Pathology Report Case: [id number] Authorizing Provider: Tiffani Morales MD Collected: 04/04/2022 02:57 PM Ordering Location: Gastroenterology Received: 04/04/2022 05:34 PM Pathologist: Gonzalo Lemons MD Specimen: JEJUNUM BIOPSY, polyp: r/o adenoma Performed By: #### S ####[facility] [id number] [address] FINAL DIAGNOSIS Normal [facility] Comment on above: Order Comment: Speci men Type: TISSUE SPECIMENOrdering Facility: [facility] Address: [address] [place] [address] Result Comment: A. Therese ejunum, polyp, biopsy: - Small intestine with gastric heterotopia. - Negative for dysplasia and malignancy. Performed By: #### S ####[facility] [id number] [address] OF [facility] FINAL PERFORMING LAB Normal [facility] Comment on above: Order Comment: Speci men Type: TISSUE SPECIMENOrdering Facility: [facility] Address: [address] [place] [address] Result Comment: Diag nostic interpretation performed at [facility], [address] [place], [place] [id number] CLIA# [id number] Broach Trouble Shooter: Constantin Quevedo M.D. Performed By: #### S ####[facility] [id number] [address] [id number] [place] GROSS DESCRIPTION Normal [facility] Comment on above: Order Comment: Speci men Type: TISSUE SPECIMENOrdering Facility: [facility] Address: [address] [id number] Result Comment: A. J EJUNUM BIOPSY Received in formalin is a segment of proctor polypoid tissue measuring 1.2 x 1.0 x 0.4 cm. No stalk is noted. The line of resection is noted. The specimen is bisected and totally submitted in formalin in one cassette. Gross examination performed at [facility], [address] [place] [address] 04/04/2022 10:13 PM Performed By: #### S ####[facility] [id number] [address] [id number] [place] FOLATE, RBC AND SERUMon 03-18 Folate 7.5 ng/mL Normal >3.0 [facility] Comment on above: Result Comment: A se rum folate concentration of less than 3.1 ng/mL is considered to represent clinical deficiency. Performed By: #### L IPID, CMP #### [facility] [address] [address] [address] Prince Olivas Folate, Hemolysate 297.0 ng/mL Normal Not Estab. [facility] Comment on above: Performed By: #### L IPID, CMP #### [facility] [id number] Prince Olivas Folate, RBC 721 ng/mL Normal >498 [facility] Comment on above: Performed By: #### L IPID, CMP #### [facility] [address] [address] [address] Prince Olivas Hematocrit (Bld) [Volume fraction] 41.2 % Normal 34.0-46.6 [facility] Comment on above: Performed By: #### L IPID, CMP #### [facility] [address] [place] [address] Dr. Prince Olivas CBC AUTO DIFFon 03-31-2022 BASO # 0.1 103/ul Normal 0.0-0.1 [facility] Comment on above: Performed By: #### L IPID, CMP #### [facility] [address] [place] [address] Dr. Prince Olivas Basophils/100 WBC (Bld) 0.6 % Normal 0.2-2.0 [facility] Comment on above: Performed By: #### L IPID, CMP #### [facility] [address] [place] [address] Dr. Prince Olivas EO # 0.2 103/ul Normal 0.0-0.7 [facility] Comment on above: Performed By: #### L IPID, CMP #### [facility] [address] [place] [address] Dr. Prince Olivas Eosinophils/100 WBC (Bld) 2.9 % Normal 0.9-7.0 [facility] Comment on above: Performed By: #### L IPID, CMP #### [facility] [address] [place] [address] Dr. Prince Olivas Erythrocyte distribution width (RBC) [Ratio] 13.2 % Normal 11.0-15.0 [facility] Comment on above: Performed By: #### L IPID, CMP #### [facility] [address] [place] [address] Dr. Prince Olivas Hematocrit (Bld) [Volume fraction] 41.1 % Normal 36.0-48.0 [facility] Comment on above: Performed By: #### L IPID, CMP #### [facility] [address] [place] [address] Dr. Prince Olivas Hemoglobin (Bld) [Mass/Vol] 13.6 g/dL Normal 12.0-16.0 [facility] Comment on above: Performed By: #### L IPID, CMP #### [facility] [address] [address] [address] Prince Olivas IG # 0.04 10e3/ul Critically high 0.00-0.03 [facility] Comment on above: Performed By: #### L IPID, CMP #### [facility] [address] [address] [address] Prince Olivas IG % 0.5 % Normal 0.0-0.5 [facility] Comment on above: Performed By: #### L IPID, CMP #### [facility] [address] [address] [address] Prince Olivas LYMPH # 2.5 103/ul Normal 1.2-3.8 [facility] Comment on above: Performed By: #### L IPID, CMP #### [facility] [address] [address] [address] Prince Olivas Lymphocytes/100 WBC (Bld) 31.5 % Normal 20.5-60.0 [facility] Comment on above: Performed By: #### L IPID, CMP #### [facility] [address] [address] [address] Prince Olivas MANUAL DIFF REQ NO Normal [facility] Comment on above: Performed By: #### L IPID, CMP #### [facility] [address] [address] [address] Prince Olivas MCH (RBC) [Entitic mass] 30.5 pg Normal 26.7-34.0 [facility] Comment on above: Performed By: #### L IPID, CMP #### [facility] [address] [address] [address] Prince Olivas MCHC (RBC) [Mass/Vol] 33.1 g/dL Normal 29.9-35.2 [facility] Comment on above: Performed By: #### L IPID, CMP #### [facility] [address] [address] [address] Prince Olivas MCV (RBC) [Entitic vol] 92.2 fL Normal 81.0-99.0 [facility] Comment on above: Performed By: #### L IPID, CMP #### [facility] [address] [place] [address] Dr. Prince Olivas MONO # 0.6 103/ul Normal 0.3-0.8 [facility] Comment on above: Performed By: #### L IPID, CMP #### [facility] [address] [place] [address] Dr. Prince Olivas Monocytes/100 WBC (Bld) 7.0 % Normal 1.7-12.0 [facility] Comment on above: Performed By: #### L IPID, CMP #### [facility] [address] [place] [address] Dr. Prince Olivas NEUT # 4.5 103/ul Normal 1.4-6.5 [facility] Comment on above: Performed By: #### L IPID, CMP #### [facility] [address] [place] [address] Dr. Prince Olivas Neutrophils/100 WBC (Bld) 57.5 % Normal 43.0-75.0 [facility] Comment on above: Performed By: #### L IPID, CMP #### [facility] [address] [place] [address] Dr. Prince Olivas Platelet mean volume (Bld) [Entitic vol] 11.5 fL Normal 9.5-13.5 [facility] Comment on above: Performed By: #### L IPID, CMP #### [facility] [address] [place] [address] Dr. Prince Olivas PLT 224 103/ul Normal 150-450 [facility] Comment on above: Performed By: #### L IPID, CMP #### [facility] [address] [place] [address] Dr. Prince Olivas RBC 4.46 106/ul Normal 4.20-5.40 [facility] Comment on above: Performed By: #### L IPID, CMP #### [facility] [address] [place] [address] Dr. Prince Olivas WBC 7.9 103/ul Normal 4.0-11.0 [facility] Comment on above: Performed By: #### L IPID, CMP #### [facility] [address] [place] [address] Dr. Prince Olivas CRPon 03-31-2022 CRP [Mass/Vol] mg/L Normal <=1.0 [facility] Comment on above: Performed By: #### C OPPER #### [facility] [address] [place] [address] Dr. Prince Olivas FERRITINon 03-31-2022 Ferritin [Mass/Vol] 99.0 ng/mL Normal 8.0-252.0 [facility] Comment on above: Performed By: #### F ERR, VITB12, VITAD, FETIBC #### [facility] [address] [place] [address] Dr. Prince Olivas IRON AND TIBCon 03-31-2022 % SATURATION 29.3 % Normal [facility] Comment on above: Performed By: #### F ERR, VITB12, VITAD, FETIBC #### [facility] [address] [place] [address] Dr. Prince Olivas Iron [Mass/Vol] 90.0 ug/dL Normal 50.0-170.[address] [facility] Comment on above: Performed By: #### F ERR, VITB12, VITAD, FETIBC #### [facility] [address] [place] [address] Dr. Prince Olivas TIBC DIRECT 307.0 ug/dL Normal 250.0-450.0 [facility] Comment on above: Performed By: #### F ERR, VITB12, VITAD, FETIBC #### [facility] [address] [place] [address] Dr. Prince Olivas MAGNESIUMon 03-31-2022 Magnesium [Mass/Vol] 2.0 mg/dL Normal 1.8-2.4 [facility] Comment on above: Performed By: #### C OPPER #### [facility] [address] [place] [address] Dr. Prince Olivas PHOSPHORUSon 03-31-2022 Phosphate [Mass/Vol] 3.6 mg/dL Normal 2.6-4.7 [facility] Comment on above: Performed By: #### C OPPER #### [facility] [address] [address] [address] Prince Olivas PROF 14(COMP METB)on 023 Albumin [Mass/Vol] 3.9 g/dL Normal 3.4-5.[address] [facility] Comment on above: Performed By: #### C OPPER #### [facility] [address] [address] [address] Prince Olivas Albumin/Globulin [Mass ratio] 1.3 {ratio} Normal [facility] Comment on above: Performed By: #### C OPPER #### [facility] [address] [place] [address] Dr. Prince Olivas ALP [Catalytic activity/Vol] 75 U/L Normal 46-116 [facility] Comment on above: Performed By: #### C OPPER #### [facility] [address] [place] [address] Dr. Prince Olivas ALT [Catalytic activity/Vol] 19 U/L Normal 14-59 [facility] Comment on above: Performed By: #### C OPPER #### [facility] [address] [place] [address] Dr. Prince Olivas Anion gap [Moles/Vol] 11.3 mmol/L Normal [facility] Comment on above: Performed By: #### C OPPER #### [facility] [address] [place] [address] Dr. Prince Olivas AST [Catalytic activity/Vol] 19 U/L Normal 15-37 [facility] Comment on above: Performed By: #### C OPPER #### [facility] [address] [place] [address] Dr. Prince Olivas Bilirubin [Mass/Vol] 0.3 mg/dL Normal 0.2-1.0 [facility] Comment on above: Performed By: #### C OPPER #### [facility] [address] [place] [address] Dr. Prince Olivas Calcium [Mass/Vol] 9.0 mg/dL Normal 8.5-10.1 [facility] Comment on above: Performed By: #### C OPPER #### [facility] [address] [address] [address] Prince Olivas Chloride [Moles/Vol] 105 mmol/L Normal 98-107 [facility] Comment on above: Performed By: #### C OPPER #### [facility] [address] [address] [address] Prince Olivas CO2 [Moles/Vol] 28.9 mmol/L Normal 21.0-32.0 [facility] Comment on above: Performed By: #### C OPPER #### [facility] [address] [place] [address] Dr. Prince Olivas Creatinine [Mass/Vol] 0.79 mg/dL Normal 0.55-1.02 [facility] Comment on above: Performed By: #### C OPPER #### [facility] [address] [place] [address] Dr. Prince Olivas EGFR-AF HUNGARIAN >60 Normal >=60 [facility] Comment on above: Performed By: #### C OPPER #### [facility] [address] [place] [address] Dr. Prince Olivas EGFR-NON AF HUNGARIAN >60 Normal >=60 [facility] Comment on above: Performed By: #### C OPPER #### [facility] [address] [place] [address] Dr. Prince Olivas Globulin (S) [Mass/Vol] 3.0 g/dL Normal [facility] Comment on above: Performed By: #### C OPPER #### [facility] [address] [place] [address] Dr. Prince Olivas Glucose [Mass/Vol] 91 mg/dL Normal 74-[address] [facility] Comment on above: Performed By: #### C OPPER #### [facility] [address] [place] [address] Dr. Prince Olivas Potassium [Moles/Vol] 4.2 mmol/L Normal 3.5-5.1 [facility] Comment on above: Performed By: #### C OPPER #### [facility] [address] [address] [address] Prince Olivas Protein [Mass/Vol] 6.9 g/dL Normal 6.4-8.2 [facility] Comment on above: Performed By: #### C OPPER #### [facility] [address] [address] [address] Prince Olivas Sodium [Moles/Vol] 141 mmol/L Normal 136-[address] [facility] Comment on above: Performed By: #### C OPPER #### [facility] [address] [address] [address] Prince Olivas Urea nitrogen [Mass/Vol] 10.0 mg/dL Normal 7.0-18.0 [facility] Comment on above: Performed By: #### C OPPER #### [facility] [address] [place] [address] Dr. Prince Olivas Urea nitrogen/Creatinine [Mass ratio] 12.7 mg/mg Normal [facility] Comment on above: Performed By: #### C OPPER #### [facility] [address] [place] [address] Dr. Prince Olivas PROTIMEon 03-31-2022 INR Coag (PPP) [Relative time] 0.94 {INR} Normal [facility] Comment on above: Performed By: #### M MA2 #### [facility] [address] [place] [address] Dr. Prince Olivas INR GUIDELINES SEE BELOW Normal [facility] Comment on above: Result Comment: BRIANNA RED INR: 2.0 - 3.0 CONDITIONS NOT LISTED BELOW 2.5 - 3.5 FOR PROSTHETIC HEART VALVE REPLACEMENT 2.5 - 3.5 RECURRENT THROMBOSIS Performed By: #### M MA2 #### [facility] [address] [place] [address] Dr. Prince Olivas PT Coag (PPP) [Time] 10.0 s Normal 9.0-11.6 [facility] Comment on above: Performed By: #### M MA2 #### [facility] [address] [place] [address] Dr. Prince Olivas TRIGLYCERIDEon 03-31-2022 Triglyceride [Mass/Vol] 103 mg/dL Normal <=150 [facility] Comment on above: Performed By: #### C OPPER #### [facility] [address] [place] [address] Dr. Prince Olivas VITAMIN B12on 03-31-2022 Cobalamin (Vitamin B12) [Mass/Vol] 259.0 pg/mL Normal 193.0-986.0 [facility] Comment on above: Performed By: #### F ERR, VITB12, VITAD, FETIBC #### [facility] [address] [place] [address] Dr. Prince Olivas VITAMIN D 25 OHon 03-31-2022 VIT D 25-OH 49.0 ng/mL Normal [facility] Comment on above: Performed By: #### F ERR, VITB12, VITAD, FETIBC #### [facility] [address] [place] [address] Dr. Prince Olivas VIT D RANGES SEE BELOW Normal [facility] Comment on above: Result Comment: <20 ng/mL Vit D deficient 20 - <30 ng/mL Vit D insufficient 30 - 100 ng/mL Vit D sufficient >100 ng/mL Potential Toxicity Performed By: #### F ERR, VITB12, VITAD, FETIBC #### [facility] [address] [place] [address] Dr. Prince Olivas CBC AUTO DIFFon 03-28-2022 BASO # 0.1 103/ul Normal 0.0-0.1 [facility] Comment on above: Performed By: #### S ELNIUM #### [facility] [address] [place] [address] Dr. Prince Olivas Basophils/100 WBC (Bld) 0.6 % Normal 0.2-2.0 [facility] Comment on above: Performed By: #### S ELNIUM #### [facility] [address] [place] [address] Dr. Prince Olivas EO # 0.2 103/ul Normal 0.0-0.7 [facility] Comment on above: Performed By: #### S ELNIYANNICK #### [facility] [address] [place] [address] Dr. Prince Olivas Eosinophils/100 WBC (Bld) 2.4 % Normal 0.9-7.0 [facility] Comment on above: Performed By: #### S ELNIUM #### [facility] [address] [place] [address] Dr. Prince Olivas Erythrocyte distribution width (RBC) [Ratio] 13.2 % Normal 11.0-15.0 [facility] Comment on above: Performed By: #### S ELNIUM #### [facility] [address] [place] [address] Dr. Prince Olivas Hematocrit (Bld) [Volume fraction] 44.3 % Normal 36.0-48.0 [facility] Comment on above: Performed By: #### S ELNIUM #### [facility] [address] [place] [address] Dr. Prince Olivas Hemoglobin (Bld) [Mass/Vol] 13.8 g/dL Normal 12.0-16.0 [facility] Comment on above: Performed By: #### S ELNIUM #### [facility] [address] [place] [address] Dr. Prince Olivas IG # 0.02 10e3/ul Normal 0.00-0.03 [facility] Comment on above: Performed By: #### S ELNIUM #### [facility] [address] [place] [address] Dr. Prince Olivas IG % 0.2 % Normal 0.0-0.5 [facility] Comment on above: Performed By: #### S ELNIUM #### [facility] [address] [place] [address] Dr. Prince Olivas LYMPH # 3.1 103/ul Normal 1.2-3.8 [facility] Comment on above: Performed By: #### S ELNIUM #### [facility] [address] [place] [address] Dr. Prince Olivas Lymphocytes/100 WBC (Bld) 34.8 % Normal 20.5-60.0 [facility] Comment on above: Performed By: #### S ELNIUM #### [facility] [address] [address] [address] Prince Olivas MANUAL DIFF REQ NO Normal [facility] Comment on above: Performed By: #### S ELNIUM #### [facility] [address] [place] [address] Dr. Prince Olivas MCH (RBC) [Entitic mass] 30.5 pg Normal 26.7-34.0 [facility] Comment on above: Performed By: #### S ELNIUM #### [facility] [address] [place] [address] Dr. Prince Olivas MCHC (RBC) [Mass/Vol] 31.2 g/dL Normal 29.9-35.2 [facility] Comment on above: Performed By: #### S ELNIUM #### [facility] [address] [place] [address] Dr. Prince Olivas MCV (RBC) [Entitic vol] 98.0 fL Normal 81.0-99.0 [facility] Comment on above: Performed By: #### S ELNIUM #### [facility] [address] [place] [address] Dr. Prince Olivas MONO # 0.5 103/ul Normal 0.3-0.8 [facility] Comment on above: Performed By: #### S ELNIUM #### [facility] [address] [place] [address] Dr. Prince Olivas Monocytes/100 WBC (Bld) 6.0 % Normal 1.7-12.0 [facility] Comment on above: Performed By: #### S ELNIUM #### [facility] [address] [place] [address] Dr. Prince Olivas NEUT # 5.0 103/ul Normal 1.4-6.5 [facility] Comment on above: Performed By: #### S ELNIUM #### [facility] [address] [place] [address] Dr. Prince Olivas Neutrophils/100 WBC (Bld) 56.0 % Normal 43.0-75.0 [facility] Comment on above: Performed By: #### S ELNIUM #### [facility] [address] [address] [address] Prince Olivas Platelet mean volume (Bld) [Entitic vol] 11.5 fL Normal 9.5-13.5 [facility] Comment on above: Performed By: #### S ELNIUM #### [facility] [address] [address] [address] Prince Olivas PLT 221 103/ul Normal 150-450 [facility] Comment on above: Performed By: #### S ELNIUM #### [facility] [address] [address] [address] Prince Olivas RBC 4.52 106/ul Normal 4.20-5.40 [facility] Comment on above: Performed By: #### S ELNIUM #### [facility] [address] [address] [address] Prince Olivas WBC 8.9 103/ul Normal 4.0-11.0 [facility] Comment on above: Performed By: #### S ELNIUM #### [facility] [address] [address] [address] Prince Pinon 03-28-2022 KISHANN Telephone ([facility]) SAI PINEDA ([id number]) 1970 F Date Time Provider Department 03/28/22 EDUARDO HARRINGTON [facility] During your visit today, we recorded the following information about you: Eduardo Harrington RN 03/28/2022 3:52 PM Signed Attempted to reach the patient at the contact number that they provided [phone] (home) . Unable to speak with patient so without identifying the patient the following information was left on their voice mail: Date of procedure, location and report time A message was left informing the patient/patient tax representative they must have a responsible adult accompany them to their procedure; and remain in the endoscopy area until they are discharged. Failure to have a responsible adult accompany the patient to their procedure appointment prevents the use of sedation or anesthesia for their procedure; and can result in cancellation of the procedure NPO instructions were reviewed. Instructions to contact their primary care provider regarding their medications and which medications to stop in preparation for their procedure Instructions to completely read and follow the written instructions that they recieved regarding their procedure. Number to call with questions or concerns [phone] Number to call to cancel their procedure [phone] Eduardo Harrington RN Allergies As of Date: 03/28/2022 (No Known Allergies) Date Reviewed: 01/01/2022 Reviewed by: Juan Carlos Saucedo LPN - Fully Assessed Reason for Visit: Appointment Confirmation [1225] Prescriptions as of 03/28/2022 - prochlorperazine (COMPAZINE) 5 mg tablet TAKE 1 TABLET BY MOUTH EVERY 6 HOURS NEEDED FOR NAUSEA AND VOMITING - ondansetron orally disintegrating (ZOFRAN ODT) 8 mg disintegrating tablet Take 1 tablet by mouth every 12 hours as needed for nausea/vomiting. - ALPRAZolam (XANAX) 0.5 mg tablet Take 0.5 mg by mouth three times daily as needed. - cloNIDine HCl (CATAPRES) 0.2 mg tablet - lamoTRIgine (LAMICTAL) 200 mg tablet Take 200 mg by mouth. - OLANZapine 5 mg tablet Take 5 mg by mouth daily at bedtime. - pantoprazole 40 mg tablet Take 40 mg by mouth once daily. - tiotropium (SPIRIVA WITH HANDIHALER) 18 mcg inhalation capsule Inhale 18 mcg as instructed once daily. Problem List As Of Date 03/28/2022 Noted Resolved Hand pain [M79.643] 10/24/2012 Joint swelling [M25.40] 10/24/2012 DESMOND positive [R76.8] 10/24/2012 Elevated C-reactive protein (CRP) [R79.82] 10/24/2012 Family history of rheumatoid arthritis [Z82.61] 10/24/2012 Tobacco abuse [Z72.0] 10/24/2012 Numbness and tingling [R20.0, R20.2] 10/24/2012 Neuropathy [G62.9] 10/24/2012 Raynauds phenomenon [I73.00] 10/24/2012 Severe protein-calorie malnutrition (HCC) [E43] 03/02/2022 Encounter Status:Closed by EDUARDO HARRINGTON on 03/28/22 Normal [facility] PROF 14(COMP METB)on 023 Albumin [Mass/Vol] 4.2 g/dL Normal 3.4-5.0 [facility] Comment on above: Performed By: #### L IPID, CMP #### [facility] [address] [place] [address] Dr. Prince Olivas Albumin/Globulin [Mass ratio] 1.4 {ratio} Normal [facility] Comment on above: Performed By: #### L IPID, CMP #### [facility] [address] [place] [address] Dr. Prince Olivas ALP [Catalytic activity/Vol] 86 U/L Normal 46-116 [facility] Comment on above: Performed By: #### L IPID, CMP #### [facility] [address] [address] [address] Prince Olivas ALT [Catalytic activity/Vol] 13 U/L Critically low 14-59 [facility] Comment on above: Performed By: #### L IPID, CMP #### [facility] [address] [place] [address] Dr. Prince Olivas Anion gap [Moles/Vol] 9.7 mmol/L Normal [facility] Comment on above: Performed By: #### L IPID, CMP #### [facility] [address] [address] [address] Prince Olivas AST [Catalytic activity/Vol] 15 U/L Normal 15-37 [facility] Comment on above: Performed By: #### L IPID, CMP #### [facility] [address] [address] [address] Prince Olivas Bilirubin [Mass/Vol] 0.2 mg/dL Normal 0.2-1.0 [facility] Comment on above: Performed By: #### L IPID, CMP #### [facility] [address] [address] [address] Prince Olivas Calcium [Mass/Vol] 9.2 mg/dL Normal 8.5-10.[address] [facility] Comment on above: Performed By: #### L IPID, CMP #### [facility] [address] [address] [address] Prince Olivas Chloride [Moles/Vol] 102 mmol/L Normal 98-107 [facility] Comment on above: Performed By: #### L IPID, CMP #### [facility] [address] [address] [address] Prince Olivas CO2 [Moles/Vol] 28.9 mmol/L Normal 21.0-32.0 [facility] Comment on above: Performed By: #### L IPID, CMP #### [facility] [address] [place] [address] Dr. Prince Olivas Creatinine [Mass/Vol] 0.81 mg/dL Normal 0.55-1.02 [facility] Comment on above: Performed By: #### L IPID, CMP #### [facility] [address] [place] [address] Dr. Prince Olivas EGFR-AF HUNGARIAN >60 Normal >=60 [facility] Comment on above: Performed By: #### L IPID, CMP #### [facility] [address] [place] [address] Dr. Prince Olivas EGFR-NON AF HUNGARIAN >60 Normal >=60 [facility] Comment on above: Performed By: #### L IPID, CMP #### [facility] [address] [place] [address] Dr. Prince Olivas Globulin (S) [Mass/Vol] 3.1 g/dL Normal [facility] Comment on above: Performed By: #### L IPID, CMP #### [facility] [address] [address] [address] Prince Olivas Glucose [Mass/Vol] 74 mg/dL Normal 74-[address] [facility] Comment on above: Performed By: #### L IPID, CMP #### [facility] [address] [place] [address] Dr. Prince Olivas Potassium [Moles/Vol] 4.1 mmol/L Normal 3.5-5.1 [facility] Comment on above: Performed By: #### L IPID, CMP #### [facility] [address] [place] [address] Dr. Prince Olivas Protein [Mass/Vol] 7.3 g/dL Normal 6.4-8.2 [facility] Comment on above: Performed By: #### L IPID, CMP #### [facility] [address] [place] [address] Dr. Prince Olivas Sodium [Moles/Vol] 138 mmol/L Normal 136-145 [facility] Comment on above: Performed By: #### L IPID, CMP #### [facility] [address] [place] [address] Dr. Prince Olivas Urea nitrogen [Mass/Vol] 11.0 mg/dL Normal 7.0-18.0 [facility] Comment on above: Performed By: #### L IPID, CMP #### [facility] [address] [place] [address] Dr. Prince Olivas Urea nitrogen/Creatinine [Mass ratio] 13.6 mg/mg Normal [facility] Comment on above: Performed By: #### L IPID, CMP #### [facility] [address] [place] [address] Dr. Prince Olivas TSHon 03-28-2022 TSH 0.948 uIU/mL Normal 0.358-3.740 [facility] Comment on above: Performed By: #### L IPID, CMP #### [facility] [address] [place] [address] Dr. Prince Olivas VIT B12 AND FOLATEon 023 Cobalamin (Vitamin B12) [Mass/Vol] 260.0 pg/mL Normal 193.0-986.0 [facility] Comment on above: Performed By: #### C OPPER #### [facility] [address] [place] [address] Dr. Prince Olivas FOLATE 7.90 ng/mL Critically low 8.60-58.90 [facility] Comment on above: Performed By: #### C OPPER #### [facility] [address] [address] [address] Prince Olivas NM GASTRIC EMPTYING SOLIDon 02-05-2022 NM GASTRIC EMPTYING SOLID * * *Final Report* * * DATE OF EXAM: Feb 05 2022 12:26PM [facility] 0017 - [place] GASTRIC EMPTYING SOLID / PROCEDURE REASON: Nausea * * * * Physician Interpretation * * * * SOLID MEAL GASTRIC EMPTYING STUDY HISTORY: Nausea - Assess for abnormal gastric emptying of a solid meal. TECHNIQUE: 1 mCi Tc-99m sulfur colloid was given orally in a meal consisting of 4 oz Egg Beaters, 2 slices of toast, 1 oz jelly, and 8 oz water, consumed over 5 to 10 minutes. Anterior and posterior spot images of the stomach region at times 0, 1, 2, and 4 hours were obtained, over the course of 1 minute each. Anterior and posterior projection were then used to calculate the geometric mean activity. RESULT: Solid study demonstrates: - 61% gastric retention at 1hr (normal range, 37-90%) - 19% gastric retention at 2hr (normal range, 30-60%) - 0% gastric retention at 4hr (normal range, 0-10%) No evidence of accelerated emptying of gastric contents, with 61% retention at 1hr (rapid emptying is <30% retention at 1hr). IMPRESSION: Normal rate of gastric emptying of solid meal. Aligner: PSCB Transcribe Date/Time: Feb 05 2022 1:36P Dictated by : SHER RODRIGUEZ MD This examination was interpreted and the report reviewed and electronically signed by: RENATO PATEL MD on Feb 05 2022 2:03PM EST [id number] [facility] Zi 01-05-2022 YAMILETH Telephone (GAPRA3) SAI PINEDA ([id number]) 1970 F Date Time Provider Department 01/05/22 TIFFANI MORALES During your visit today, we recorded the following information about you: Tiffani Morales MD 01/05/2022 5:55 PM Signed Phone note F/U EGD Incidental finding of duodenal adenoma. She continues to feel unwell with ongoing nausea and upper abdominal pain. Weight has stabilized around 100 lbs (BMI 15) She had a colonoscopy and thinks that she is due for another one soon. Plan: Capsule study Stool fat and stool elastase Gastric emptying study Cross sectional imaging AND update basic labs (CBC, CMP, CRP, 25-OH vitamin D, B12, ferritin, folate, TSH) if not done recently. Continued symptom management Colonoscopy eventually when she can tolerate a bowel preparation Tiffani Morales MD 01-05-2022 17:51 Allergies As of Date: 01/05/2022 (No Known Allergies) Date Reviewed: 01/01/2022 Reviewed by: Juan Carlos Saucedo LPN - Fully Assessed Reason for Visit: Results [95] Cmt: Post-EGD Prescriptions as of 01/05/2022 - ALPRAZolam (XANAX) 0.5 mg tablet Take 0.5 mg by mouth three times daily as needed. - cloNIDine HCl (CATAPRES) 0.2 mg tablet - lamoTRIgine (LAMICTAL) 200 mg tablet Take 200 mg by mouth. - ondansetron (ZOFRAN) 4 mg tablet Take 1 tablet by mouth every 8 hours as needed for nausea/vomiting (for nausea.). - prochlorperazine (COMPAZINE) 5 mg tablet Take 1 tablet by mouth every 6 hours as needed for nausea/vomiting. - OLANZapine 5 mg tablet Take 5 mg by mouth daily at bedtime. - pantoprazole 40 mg tablet Take 40 mg by mouth once daily. - tiotropium (SPIRIVA WITH HANDIHALER) 18 mcg inhalation capsule Inhale 18 mcg as instructed once daily. Problem List As Of Date 01/05/2022 Noted Resolved Hand pain [M79.643] 10/24/2012 Joint swelling [M25.40] 10/24/2012 DESMOND positive [R76.8] 10/24/2012 Elevated C-reactive protein (CRP) [R79.82] 10/24/2012 Family history of rheumatoid arthritis [Z82.61] 10/24/2012 Tobacco abuse [Z72.0] 10/24/2012 Numbness and tingling [R20.0, R20.2] 10/24/2012 Neuropathy [G62.9] 10/24/2012 Raynauds phenomenon [I73.00] 10/24/2012 Encounter Status:Closed by TIFFANI MORALES on 01/05/22 [facility] ([id number]) 1970 F Date Time Provider Department 01/03/22 ANASTASIYA MOSQUEDA GASTGA During your visit today, we recorded the following information about you: Anastasiya Mosqueda PA-C 01/03/2022 10:19 AM Signed EGD results discussed with patient as requested, pathology still pending. Will reach out to patient once resulted. Red flags for in person care discussed. GRECIA Castorena [facility] 01/05/2022 10:02 AM Signed Patient requests return call [phone] Elizabeth Jean Barbara [facility] Allergies As of Date: 01/03/2022 (No Known Allergies) Date Reviewed: 01/01/2022 Reviewed by: Juan Carlos Saucedo LPN - Fully Assessed Reason for Visit: Results [95] Prescriptions as of 01/05/2022 - OLANZapine 5 mg tablet Take 5 mg by mouth daily at bedtime. - pantoprazole 40 mg tablet Take 40 mg by mouth once daily. - ondansetron 4 mg tablet Take 4 mg by mouth every 8 hours as needed. - tiotropium (SPIRIVA WITH HANDIHALER) 18 mcg inhalation capsule Inhale 18 mcg as instructed once daily. Problem List As Of Date 01/03/2022 Noted Resolved Hand pain [M79.643] 10/24/2012 Joint swelling [M25.40] 10/24/2012 DESMOND positive [R76.8] 10/24/2012 Elevated C-reactive protein (CRP) [R79.82] 10/24/2012 Family history of rheumatoid arthritis [Z82.61] 10/24/2012 Tobacco abuse [Z72.0] 10/24/2012 Numbness and tingling [R20.0, R20.2] 10/24/2012 Neuropathy [G62.9] 10/24/2012 Raynauds phenomenon [I73.00] 10/24/2012 Medications Discontinued During This Encounter Prescriptions - Diclofenac Sodium (VOLTAREN) 1 % gel (Discontinued) apply 2gms to areas of joint pain up to four times a day. Avoid contact with eyes. Do not exceed 32gm/day - clonazePAM 1 mg tablet (Discontinued) Take 1 mg by mouth twice daily as needed. - fluticasone-salmeterol (ADVAIR DISKUS) 100-50 mcg/dose DsDv (Discontinued) Inhale 1 Puff as instructed twice daily. - gabapentin (NEURONTIN) 100 mg capsule (Discontinued) Take 1cap nightly x 3-5days, increase 1cap every 3-5days until 3caps AM/3caps noon/3capsPM thereafter if tolerated/necessary. - hydrOXYzine pamoate 25 mg capsule (Discontinued) Take 25 mg by mouth three times daily as needed. - nicotine 21 mg/24 hr (Discontinued) Apply 1 Patch as directed every 24 hours. - prazosin 2 mg cap (Discontinued) Take by mouth twice daily. - sertraline 100 mg tablet (Discontinued) Take 100 mg by mouth once daily. Encounter Status:Closed by ANASTASIYA MOSQUEDA on 01/03/22 [facility] Zi 01-02-2022 [facility] Telephone (DDQ) PINEDASAI MICHAEL ([id number]) 1970 F Date Time Provider Department 01/02/22 ANASTASIYA MOSQUEDA During your visit today, we recorded the following information about you: Leydi Henry Workleader 01/02/2022 8:52 AM Signed Patient called to get results from her procedure. Please contact her at number listed in system. Thanks Leydisrini Henry Workleader Allergies As of Date: 01/02/2022 (No Known Allergies) Date Reviewed: 01/01/2022 Reviewed by: Juan Carlos Saucedo LPN - Fully Assessed Reason for Visit: Results [95] Prescriptions as of 01/02/2022 - sertraline 100 mg tablet Take 100 mg by mouth once daily. - hydrOXYzine pamoate 25 mg capsule Take 25 mg by mouth three times daily as needed. - clonazePAM 1 mg tablet Take 1 mg by mouth twice daily as needed. - OLANZapine 5 mg tablet Take 5 mg by mouth daily at bedtime. - pantoprazole 40 mg tablet Take 40 mg by mouth once daily. - ondansetron 4 mg tablet Take 4 mg by mouth every 8 hours as needed. - prazosin 2 mg cap Take by mouth twice daily. - tiotropium (SPIRIVA WITH HANDIHALER) 18 mcg inhalation capsule Inhale 18 mcg as instructed once daily. - fluticasone-salmeterol (ADVAIR DISKUS) 100-50 mcg/dose DsDv Inhale 1 Puff as instructed twice daily. - nicotine 21 mg/24 hr Apply 1 Patch as directed every 24 hours. - gabapentin (NEURONTIN) 100 mg capsule Take 1cap nightly x 3-5days, increase 1cap every 3-5days until 3caps AM/3caps noon/3capsPM thereafter if tolerated/necessary. - Diclofenac Sodium (VOLTAREN) 1 % gel apply 2gms to areas of joint pain up to four times a day. Avoid contact with eyes. Do not exceed 32gm/day Problem List As Of Date 01/02/2022 Noted Resolved Hand pain [M79.643] 10/24/2012 Joint swelling [M25.40] 10/24/2012 DESMOND positive [R76.8] 10/24/2012 Elevated C-reactive protein (CRP) [R79.82] 10/24/2012 Family history of rheumatoid arthritis [Z82.61] 10/24/2012 Tobacco abuse [Z72.0] 10/24/2012 Numbness and tingling [R20.0, R20.2] 10/24/2012 Neuropathy [G62.9] 10/24/2012 Raynauds phenomenon [I73.00] 10/24/2012 Encounter Status:Closed by RON ARAIZALEADELEYDI Wheeler on 01/02/22 [facility] ANES POSTPROC EVALon 022 ANES POSTPROC EVAL HNO ID: [id number] Author: Sher Hudson MD Service: ? Author Type: Anesthesiologist Type: Anesthesia Postprocedure Evaluation Filed: 01/01/2022 5:13 PM Note Text: POST ANESTHESIA EVALUATION NOTE : 1970 Procedure Summary Date: 01/01/22 Room / Location: Gastroenterology Anesthesia Start: 1559 Anesthesia Stop: 1634 Procedure: EGD DIAGNOSTIC Diagnosis: Nausea and vomiting, unspecified vomiting type Left upper quadrant abdominal pain (Epigastric abdominal pain) (Nausea) (Weight loss) Scheduled Providers: Tiffani Morales MD Responsible Provider: Sher Hudson MD Anesthesia Type: general ASA Status: 3 Anesthesia Type: general Airway Type: anesthesia mask Last Vitals Vitals Value Taken Time BP 110/69 01/01/22 1650 Temp 36.7 ?C (98.1 ?F) 01/01/22 1633 Pulse 73 01/01/22 1652 Resp 18 01/01/22 1713 SpO2 95 % 01/01/22 1652 Vitals shown include unvalidated device data. Post Anesthesia Patient Status Patient Evaluation: PACU. PACU/ICU Patient Condition: stable. Anticipated Disposition: phase 2 then home. Neurological Status: aware and responsive. Pulmonary Status: breathing comfortably on room air Airway Control: returned to baseline unsupported. Cardiovascular Status: stable. Pain Management: clinically adequate Postoperative Hydration: acceptable. Intraoperative Events: no significant anesthesia events Post Operative Nausea/Vomiting Status: no significant post operative nausea or vomiting Anesthetic Observations: Recommendation: further care per PACU/ICU/floor team. Anesthesia Observations No Documentation SIGNATURE: Sher Hudson MD PATIENT NAME: Sai Guerrero DATE: January 01, 2022 TIME: 5:13 PM CSN: [id number] [facility] ANES PRE-OPon 01-01-2022 ANES PRE-OP HNO ID: [id number] Author: Sher Hudson MD Service: ? Author Type: Anesthesiologist Type: Anesthesia Preprocedure Evaluation Filed: 01/01/2022 3:42 PM Note Text: ANESTHESIOLOGY DAY OF SURGERY NOTE : 1970 Procedure Information Date/Time: 01/01/22 1600 Scheduled providers: Tiffani Morales MD; Sher Hudson MD; Kirsten Dalton APRN.[employer] Procedure: EGD DIAGNOSTIC Location: Gastroenterology Estimated body mass index is 15.36 kg/m? as calculated from the following: Height as of this encounter: 172.7 cm (5' 8 ). Weight as of this encounter: 45.8 kg (101 lb). Most recent hematocrit and potassium results: No results found for this basename: HCT,HEMATOCRIT,K,POTAS SIUM Relevant Problems No relevant active problems I - PHYSICAL EVALUATION AIRWAY Patient intubated: No. Tracheostomy tube not present Mallampati: II. TM distance: >3 FB. Neck ROM: full ROM without neurological symptoms. Mouth opening: adequate. Short neck: no. Thick neck: no DENTAL Dental findings: missing tooth/teeth. Dentures, upper: complete. Dentures, lower: complete. II - ANESTHESIA PLAN ASA Score: 3 Anesthetic Plan: general Airway type: anesthesia mask The patient is not a current smoker. NPO Status: adequate Monitoring plan: standard ASA. Postoperative analgesic plan: multimodal analgesia. Informed Consent Anesthetic risks, benefits, alternatives, personnel and consent discussed: yes. Patient / Responsible Republican agrees to proceed: yes Patient / Surrogate agrees to blood products: Yes Significant changes in the patient condition since the History and Physical, not otherwise documented in primary service progress note: no. Potential Anesthesia issues that may suggest increased risk of complications or contraindication to planned procedure: none. Vitals Value Taken Time BP 121/64 01/01/22 1539 Pulse 78 01/01/22 1539 Resp 19 01/01/22 1539 Temp 36.3 ?C (97.3 ?F) 01/01/22 1539 SpO2 98 % 01/01/22 1539 Outpatient Medications as of 01/01/2022 Medication Sig - sertraline 100 mg tablet Take 100 mg by mouth once daily. - hydrOXYzine pamoate 25 mg capsule Take 25 mg by mouth three times daily as needed. - clonazePAM 1 mg tablet Take 1 mg by mouth twice daily as needed. - OLANZapine 5 mg tablet Take 5 mg by mouth daily at bedtime. - pantoprazole 40 mg tablet Take 40 mg by mouth once daily. - ondansetron 4 mg tablet Take 4 mg by mouth every 8 hours as needed. - prazosin 2 mg cap Take by mouth twice daily. - tiotropium (SPIRIVA WITH HANDIHALER) 18 mcg inhalation capsule Inhale 18 mcg as instructed once daily. - fluticasone-salmeterol (ADVAIR DISKUS) 100-50 mcg/dose DsDv Inhale 1 Puff as instructed twice daily. - nicotine 21 mg/24 hr Apply 1 Patch as directed every 24 hours. - gabapentin (NEURONTIN) 100 mg capsule Take 1cap nightly x 3-5days, increase 1cap every 3-5days until 3caps AM/3caps noon/3capsPM thereafter if tolerated/necessary. - Diclofenac Sodium (VOLTAREN) 1 % gel apply 2gms to areas of joint pain up to four times a day. Avoid contact with eyes. Do not exceed 32gm/day No current facility-administered medications on file as of 01/01/2022. I have interviewed and examined the patient. I have reviewed the medical record and/or the pre-anesthesia evaluation, pertinent labs, and test results. This contains updated information obtained within 48 hours of Surgery/Procedure. SIGNATURE: Sher Hudson MD PATIENT NAME: Sai Guerrero DATE: January 01, 2022 TIME: 3:42 PM CSN: [id number] [facility] EGD DIAGNOSTICon 01-01-2022 [facility] HISTORY PHYSICALon HISTORY PHYSICAL HNO ID: [id number] Author: Tiffani Morales MD Service: Gastroenterology Author Type: Physician Type: HANDP Filed: 01/01/2022 4:01 PM Note Text: GI PROCEDURAL HISTORY AND PHYSICAL EXAM PLANNED PROCEDURE EGD ASSESSMENT Unexplained weight loss, oily stools, nausea, upper abdominal pain SUBJECTIVE HPI: This is a 51 year old female who presents with a history of chronic nausea, abdominal discomfort, and alternating diarrhea and constipation. EGD about 4 years ago was unremarkable. She now has lost about 15 lbs within the past 3-4 weeks. Last oral intake: No solids within 8 hours. No clear liquids within 2 hours. 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 No pertinent surgical history. CURRENT MEDICATIONS: Prior to Admission medications as of 01/01/22 1535 Medication Sig Last Dose Taking sertraline 100 mg tablet Take 100 mg by mouth once daily. hydrOXYzine pamoate 25 mg capsule Take 25 mg by mouth three times daily as needed. clonazePAM 1 mg tablet Take 1 mg by mouth twice daily as needed. OLANZapine 5 mg tablet Take 5 mg by mouth daily at bedtime. pantoprazole 40 mg tablet Take 40 mg by mouth once daily. ondansetron 4 mg tablet Take 4 mg by mouth every 8 hours as needed. prazosin 2 mg cap Take by mouth twice daily. tiotropium (SPIRIVA WITH HANDIHALER) 18 mcg inhalation capsule Inhale 18 mcg as instructed once daily. fluticasone-salmeterol (ADVAIR DISKUS) 100-50 mcg/dose DsDv Inhale 1 Puff as instructed twice daily. nicotine 21 mg/24 hr Apply 1 Patch as directed every 24 hours. gabapentin (NEURONTIN) 100 mg capsule Take 1cap nightly x 3-5days, increase 1cap every 3-5days until 3caps AM/3caps noon/3capsPM thereafter if tolerated/necessary. Diclofenac Sodium (VOLTAREN) 1 % gel apply 2gms to areas of joint pain up to four times a day. Avoid contact with eyes. Do not exceed 32gm/day ALLERGIES: ALLERGIES No Known Allergies OBJECTIVE PHYSICAL EXAM: BP: 121/64 Temp: 36.3 ?C (97.3 ?F) Temp src: Temporal Pulse: 78 Resp: 19 O2 Therapy: Room Air SpO2: 98 % AIRWAY: Patent, Full neck flexion and extension, Mallampati 2. LUNGS: Normal respiratory effort CARDIAC: PPP, normal HS, no murmur ABDOMEN: Soft, non-tender, no masses SIGNATURE: Tiffani Morales MD PATIENT NAME: Sai Guerrero DATE: 01/01/2022 TIME: 1600 [facility] NURSING PROGon 01-01-2022 NURSING PROG HNO ID: [id number] Author: Juan Carlos Saucedo LPN Service: ? Author Type: LICENSED NURSE Type: Nursing Progress Note Filed: 01/01/2022 5:18 PM Note Text: AMBULATORY PATIENT EDUCATION NOTE TOPIC: GI PROCEDURES: Esophagogastroduodenos copy(EGD) with or without biopies based on clinical findings, removal of polyps or lesions READINESS TO LEARN INSTRUCTION PROVIDED TO: Patient and family member COGNITIVE ABILITY: Alert and oriented PTED MOTIVATION TO LEARN: Interested FAMILY SUPPORT: High - Very involved in pt care IPATIENT LEARNS BEST BY: Individual Instruction Written Instruction - Hand-outs Verbal Instruction FACTORS AFFECTING LEARNING: None PHYSICAL LIMITATIONS AFFECTING LEARNING: None LEARNING RESPONSE METHOD OF INSTRUCTION: Individual instruction PATIENT / FAMILY RESPONSE: Verbalizes understanding of: WORSENING CONDITION-Signs and symptoms of a worsening condition that warrant a call to the physician FOLLOW-UP PLAN: Recommend - Recommend continued instruction and follow up as directed SUPPLEMENTAL MATERIAL: Procedure Discharge Instructions REFERRAL (RECOMMENDATION): None Electronically Signed By: Juan Carlos Saucedo LPN [facility] NURSING PROG HNO ID: [id number] Author: Rima Coleman RN Service: ? Author Type: Registered Nurse Type: Nursing Progress Note Filed: 01/01/2022 3:38 PM Note Text: PRE OP LEARNING ASSESSMENT PROCEDURE/SURGERY: GI PROCEDURES: EGD READINESS TO LEARN COGNITIVE ABILITY: Alert and oriented MOTIVATION TO LEARN: Interested FAMILY SUPPORT: High - Very involved in pt care PATIENT LEARNS BEST BY: Individual Instruction Written Instruction - Hand-outs Verbal Instruction FACTORS AFFECTING LEARNING: None PHYSICAL LIMITATIONS AFFECTING LEARNING: None Electronically Signed By: Rima Coleman RN In Department: GASTROENTEROLOGY [facility] SURGICAL PATHOLOGYon 022 CASE REPORT [facility] Comment on above: Order Comment: Speci men Type: TISSUE SPECIMENOrdering Facility: [facility] Address: [address] [place] [id number] Result Comment: Surg ical Pathology Report Case: [id number] Authorizing Provider: Tiffani Morales MD Collected: 01/01/2022 04:13 PM Ordering Location: Gastroenterology Received: 01/01/2022 08:38 PM Pathologist: Jyotsna Cartwright MD Specimens: A) - DUODENUM BIOPSY, r/o celiac B) - STOMACH BIOPSY, r/o h. pylori C) - STOMACH (GASTRIC) POLYP BIOPSY, r/o adenoma Performed By: #### S ####[facility] LABIA [id number] [address] DIAGNOSIS COMMENT Normal [facility] Comment on above: Order Comment: Speci men Type: TISSUE SPECIMENOrdering Facility: [facility] Address: [address] [place], [place] [id number] Result Comment: A. A denovirus stain is negative for viral inclusions. Dr Valorie Jaimes has reviewed this part of the case and concurs. Laboratory Developed Test (LDT) Disclaimer: Performance characteristics of immunohistochemical, immunofluorescent and chromogenic in-situ hybridization tests have been determined by the performing laboratory within [facility]???s Lul Gandhi [facility] Pathology and Laboratory Medicine [place] ([facility], [facility], [facility] or [facility]) in a manner consistent with CLIA requirements. One or more of these tests have not been cleared or approved by the FDA. [facility] is regulated under CLIA as qualified to perform high-complexity testing. These tests are used for clinical purposes. They should not be regarded as investigational or for research. Positive and negative controls stain appropriately. Performed By: #### S ####[facility] [id number] [address] FINAL DIAGNOSIS [facility] Comment on above: Order Comment: Speci men Type: TISSUE SPECIMENOrdering Facility: [facility] Address: [address] [place] [address] Result Comment: A. D uodenum, biopsy: - Incidental and minute tubular adenoma, negative for high grade dysplasia. See comment. - Duodenal mucosa with no diagnostic alterations. B. Stomach, biopsy: - Oxyntic and antral mucosa with no diagnostic alteration. - No morphologic evidence of H. Pylori microorganisms. C. Stomach, polypectomy: - Hyperplastic polyp. Performed By: #### S ####[facility] LABCLIA [id number] [address] STATES OF [facility] FINAL PERFORMING LAB [facility] Comment on above: Order Comment: Speci men Type: TISSUE SPECIMENOrdering Facility: [facility] Address: [address] [place] [address] Result Comment: Diag nostic interpretation performed at [facility], [address] [place] [address] CLIA# [id number] Broach Trouble Shooter: Constantin Quevedo M.D. Performed By: #### S ####[facility]CL[facility] [id number] [address] GROSS DESCRIPTION Normal [facility] Comment on above: Order Comment: Speci men Type: TISSUE SPECIMENOrdering Facility: [facility] Address: [address] [place] [address] Result Comment: A. D UODENUM BIOPSY Received in formalin are multiple pieces of proctor, soft tissue aggregating to 3.0 x 0.2 x 0.2 cm. Totally submitted in two cassettes. B. STOMACH BIOPSY Received in formalin are multiple pieces of proctor, soft tissue aggregating to 1.9 x 0.3 x 0.2 cm. Totally submitted in one cassette. C. STOMACH (GASTRIC) POLYP BIOPSY Received in formalin is one piece of proctor, soft tissue measuring 0.5 x 0.2 x 0.2 cm. Totally submitted in one cassette. Gross examination performed at [facility], [address] [place] [address] TTN 01/02/2022 12:06 AM Performed By: #### S ####[facility] LABCLIA [id number] [address] [place] Upper GI endoscopyon 10--2 022 Upper GI endoscopy A31 Gastrointestinal Endoscopy Patient Name: Sai Guerrero Procedure Date: 01/01/2022 3:37 PM Date of : 1970 Admit Type: Outpatient Age: 51 Room: PROC 3 Gender: Female Note Status: Finalized Attending MD: Tiffani Morales MD Procedure: Upper GI endoscopy Indications: Epigastric abdominal pain, Nausea, Weight loss Providers: Tiffani Morales MD Patient Profile: Refer to note in patient chart for documentation of history and physical. Referring Physician: Anastasiya Mosqueda (pa) (Referring MD) Medicines: See the Anesthesia note for documentation of the administered medications Complications: No immediate complications. Requesting Provider: Procedure: Pre-Anesthesia Assessment: - Prior to the procedure, a History and Physical was performed, and patient medications and allergies were reviewed. The patient's tolerance of previous anesthesia was also reviewed. The risks and benefits of the procedure and the sedation options and risks were discussed with the patient. All questions were answered, and informed consent was obtained. Prior Anticoagulants: The patient has taken no anticoagulant or antiplatelet agents. ASA Grade Assessment: II - A patient with mild systemic disease. After reviewing the risks and benefits, the patient was deemed in satisfactory condition to undergo the procedure. After obtaining informed consent, the endoscope was passed under direct vision. Throughout the procedure, the patient's blood pressure, pulse, and oxygen saturations were monitored continuously. The Endoscope was introduced through the mouth, and advanced to the third part of duodenum. The upper GI endoscopy was accomplished without difficulty. The patient tolerated the procedure well. Moderate Sedation: MAC anesthesia was administered by the anesthesia team. MAC anesthesia was administered by the anesthesia team. Findings: The esophagus was normal. The Z-line was found 36 cm from the incisors. A 2 cm hiatal hernia was present. Moderately erythematous mucosa without bleeding was found in the entire examined stomach. Biopsies were taken with a cold forceps for histology. A single 6 mm sessile polyp with no stigmata of recent bleeding was found in the gastric body. Biopsies were taken with a cold forceps for histology. Hiatal hernia seen again on retroflexion, Hill Grade IV. Patchy atrophic mucosa was found in the entire duodenum. Biopsies were taken with a cold forceps for histology. There was a small lipoma, 12 mm in diameter, in the third portion of the duodenum with a positive pillow sign. Impression: - Normal esophageal mucosa. - 2cm hiatal hernia, Hill Grade IV - Gastropathy may be due to NSAIDs, H pylori, or chemical injury (eg bile acid). Biopsied. - A single gastric polyp is likely a benign fundic gland polyp. Biopsied. - Duodenal mucosal atrophy may be causing malabsorption and contributing to weight loss. Biopsied. 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 Estimated Blood Loss: Estimated blood loss was minimal. Recommendation: - Await pathology results. - Resume previous diet. - Continue present medications. Avoid all NSAID medications. - Patient has a contact number available for emergencies. The signs and symptoms of potential delayed complications were discussed with the patient. Return to normal activities tomorrow. Written discharge instructions were provided to the patient. Procedure Code(s): --- Professional --- 63814, Esophagogastroduodenos copy, flexible, transoral; with biopsy, single or multiple Diagnosis Code(s): --- Professional --- K44.9, Diaphragmatic hernia without obstruction or gangrene K31.89, Other diseases of stomach and duodenum K31.7, Polyp of stomach and duodenum D17.5, Benign lipomatous neoplasm of intra-abdominal organs R10.13, Epigastric pain R11.0, Nausea R63.4, Abnormal weight loss CPT copyright 2020 [employer]. All rights reserved. The codes documented in this report are preliminary and upon data coder operator review may be revised to meet current compliance requirements. Attending Participation: I personally performed the entire procedure. Scope In: 4:09:57 PM Scope Out: 4:21:34 PM MD Tiffani Camargo MD 01/01/2022 4:34:18 PM This report has been signed electronically by Tiffani Morales MD Number of Addenda: 0 Note Initiated On: 01/01/2022 3:37 PM Normal [facility] 12-28-2021 CNPN Telephone (GAPRA3) SAI WELLS ([id number]) 1970 F Date Time Provider Department 12/28/21 JOSE ROBERTO VYAS GAPRA3 During your visit today, we recorded the following information about you: Jose Roberto Vyas RN 12/28/2021 9:55 AM Signed GI Pre-Procedure Spoke with patient: Yes Confirmed date scheduled and patient report time: Yes Procedure Planned:Esophagogastro duodenoscopy(EGD) with or without biopies based on clinical findings, removal of polyps or lesions Is the patient on blood thinners?no Procedure Instructions given to patient: Yes, and they verbalized their understanding of instructions given Patient instructed to take prescribed preparation prior to procedure:Yes, and they verbalized their understanding of instructions given Patient instructed to have family/friend present for procedure transport home:Patient/patient tax representative was told that if they do not have a responsible adult accompany them to their procedure; and remain in the endoscopy area until they are discharged; that their procedure cannot be done with sedation or anesthesia and may be cancelled. and They verbalized their understanding and agree to have a responsible adult accompany the patient to their procedure and remain in the endoscopy area. Any barriers to Patient learning: Patient/Patient Competitive Intelligence Analyst responded appropriately on phone. Type of instruction given: Verbal by telephone contact. Jose Roberto Vyas RN Allergies As of Date: 12/28/2021 (No Known Allergies) Date Reviewed: 11/11/2012 Reviewed by: Merry Alfaro Ma - Fully Assessed Reason for Visit: Appointment [186] Cmt: EGD preparation instructions Prescriptions as of 12/28/2021 - sertraline 100 mg tablet Take 100 mg by mouth once daily. - hydrOXYzine pamoate 25 mg capsule Take 25 mg by mouth three times daily as needed. - clonazePAM 1 mg tablet Take 1 mg by mouth twice daily as needed. - OLANZapine 5 mg tablet Take 5 mg by mouth daily at bedtime. - pantoprazole 40 mg tablet Take 40 mg by mouth once daily. - ondansetron 4 mg tablet Take 4 mg by mouth every 8 hours as needed. - prazosin 2 mg cap Take by mouth twice daily. - tiotropium (SPIRIVA WITH HANDIHALER) 18 mcg inhalation capsule Inhale 18 mcg as instructed once daily. - fluticasone-salmeterol (ADVAIR DISKUS) 100-50 mcg/dose DsDv Inhale 1 Puff as instructed twice daily. - nicotine 21 mg/24 hr Apply 1 Patch as directed every 24 hours. - gabapentin (NEURONTIN) 100 mg capsule Take 1cap nightly x 3-5days, increase 1cap every 3-5days until 3caps AM/3caps noon/3capsPM thereafter if tolerated/necessary. - Diclofenac Sodium (VOLTAREN) 1 % gel apply 2gms to areas of joint pain up to four times a day. Avoid contact with eyes. Do not exceed 32gm/day Problem List As Of Date 12/28/2021 Noted Resolved Hand pain [M79.643] 10/24/2012 Joint swelling [M25.40] 10/24/2012 DESMOND positive [R76.8] 10/24/2012 Elevated C-reactive protein (CRP) [R79.82] 10/24/2012 Family history of rheumatoid arthritis [Z82.61] 10/24/2012 Tobacco abuse [Z72.0] 10/24/2012 Numbness and tingling [R20.0, R20.2] 10/24/2012 Neuropathy [G62.9] 10/24/2012 Raynauds phenomenon [I73.00] 10/24/2012 Encounter Status:[facility] YAMILETH [facility] (GAPRA3) SAI WELLS ([id number]) 1970 F Date Time Provider Department 12/25/21 RIMA GERARD During your visit today, we recorded the following information about you: Rima Gerard RN 12/25/2021 8:41 AM Signed Patient scheduled incorrectly. Anesthesia not supposed to have 430 case. I called patient to see if they can come in early. She said she would call me back Rima Gerard RN Allergies As of Date: 12/25/2021 (No Known Allergies) Date Reviewed: 11/11/2012 Reviewed by: Merry Alfaro Ma - Fully Assessed Reason for Visit: Appointment [186] Prescriptions as of 12/25/2021 - sertraline 100 mg tablet Take 100 mg by mouth once daily. - hydrOXYzine pamoate 25 mg capsule Take 25 mg by mouth three times daily as needed. - clonazePAM 1 mg tablet Take 1 mg by mouth twice daily as needed. - OLANZapine 5 mg tablet Take 5 mg by mouth daily at bedtime. - pantoprazole 40 mg tablet Take 40 mg by mouth once daily. - ondansetron 4 mg tablet Take 4 mg by mouth every 8 hours as needed. - prazosin 2 mg cap Take by mouth twice daily. - tiotropium (SPIRIVA WITH HANDIHALER) 18 mcg inhalation capsule Inhale 18 mcg as instructed once daily. - fluticasone-salmeterol (ADVAIR DISKUS) 100-50 mcg/dose DsDv Inhale 1 Puff as instructed twice daily. - nicotine 21 mg/24 hr Apply 1 Patch as directed every 24 hours. - gabapentin (NEURONTIN) 100 mg capsule Take 1cap nightly x 3-5days, increase 1cap every 3-5days until 3caps AM/3caps noon/3capsPM thereafter if tolerated/necessary. - Diclofenac Sodium (VOLTAREN) 1 % gel apply 2gms to areas of joint pain up to four times a day. Avoid contact with eyes. Do not exceed 32gm/day Problem List As Of Date 12/25/2021 Noted Resolved Hand pain [M79.643] 10/24/2012 Joint swelling [M25.40] 10/24/2012 DESMOND positive [R76.8] 10/24/2012 Elevated C-reactive protein (CRP) [R79.82] 10/24/2012 Family history of rheumatoid arthritis [Z82.61] 10/24/2012 Tobacco abuse [Z72.0] 10/24/2012 Numbness and tingling [R20.0, R20.2] 10/24/2012 Neuropathy [G62.9] 10/24/2012 Raynauds phenomenon [I73.00] 10/24/2012 Encounter Status:Closed by RIMA GERARD on 10/10/22 Normal [facility] 12-18-2021 CNPN Telephone (GAPRA3) SAI WELLS ([id number]) 1970 F Date Time Provider Department 12/18/21 BHUPINDER CARREON GAPRA3 During your visit today, we recorded the following information about you: Bhupinder Carreon MA 12/18/2021 10:51 AM Signed Attempted to reach the patient at the contact number that they provided [phone] (home) . Unable to speak with patient the line was busy, 2 attempts Bhupinder Carreon MA Allergies As of Date: 12/18/2021 (No Known Allergies) Date Reviewed: 11/11/2012 Reviewed by: Merry Alfaro Ma - Fully Assessed Reason for Visit: Education Of Patient/family [904] Cmt: 12/25 appt Prescriptions as of 12/18/2021 - sertraline 100 mg tablet Take 100 mg by mouth once daily. - hydrOXYzine pamoate 25 mg capsule Take 25 mg by mouth three times daily as needed. - clonazePAM 1 mg tablet Take 1 mg by mouth twice daily as needed. - OLANZapine 5 mg tablet Take 5 mg by mouth daily at bedtime. - pantoprazole 40 mg tablet Take 40 mg by mouth once daily. - ondansetron 4 mg tablet Take 4 mg by mouth every 8 hours as needed. - prazosin 2 mg cap Take by mouth twice daily. - tiotropium (SPIRIVA WITH HANDIHALER) 18 mcg inhalation capsule Inhale 18 mcg as instructed once daily. - fluticasone-salmeterol (ADVAIR DISKUS) 100-50 mcg/dose DsDv Inhale 1 Puff as instructed twice daily. - nicotine 21 mg/24 hr Apply 1 Patch as directed every 24 hours. - gabapentin (NEURONTIN) 100 mg capsule Take 1cap nightly x 3-5days, increase 1cap every 3-5days until 3caps AM/3caps noon/3capsPM thereafter if tolerated/necessary. - Diclofenac Sodium (VOLTAREN) 1 % gel apply 2gms to areas of joint pain up to four times a day. Avoid contact with eyes. Do not exceed 32gm/day Problem List As Of Date 12/18/2021 Noted Resolved Hand pain [M79.643] 10/24/2012 Joint swelling [M25.40] 10/24/2012 DESMOND positive [R76.8] 10/24/2012 Elevated C-reactive protein (CRP) [R79.82] 10/24/2012 Family history of rheumatoid arthritis [Z82.61] 10/24/2012 Tobacco abuse [Z72.0] 10/24/2012 Numbness and tingling [R20.0, R20.2] 10/24/2012 Neuropathy [G62.9] 10/24/2012 Raynauds phenomenon [I73.00] 10/24/2012 Encounter Status:Closed by BHUPINDER CARREON on 12/18/21 [facility] ([id number]) 1970 F Date Time Provider Department 12/13/21 ANASTASIYA MOSQUEDA [facility] During your visit today, we recorded the following information about you: Elizabeth Jimenez [facility] 12/13/2021 11:20 AM Signed Received a call from patient's health agency concerning virtual visit set up with you today at 11 - Patient has not registered for [facility] (having trouble accessing her email) AND they want to know if you will do a phone visit instead Was told this was an urgent request from the referring doctor's office - the visit was scheduled thru the Referring Physician office There are no records found for this patient AND I attempted to pull records thru Care Everywhere Patient's phone [phone] Elizabeth Jimenez [facility] Elizabeth Ted Jimenez [facility] 12/13/2021 12:33 PM Signed Spoke to patient's daughter - she will contact the [employer] support line to assist with setting up patient's Mychart AND assist with set up for virtual visit tomorrow morning Elizabeth Jimenez [facility] Elizabeth Jimenez [facility] 12/14/2021 12:34 PM Signed Patient phoned again unable to connect with you via [facility] Okay to schedule phone visit tomorrow? [phone] Elizabeth Jimenez [facility] Elizabeth Ted Jimenez [facility] 12/14/2021 1:32 PM Signed Patient scheduled for phone visit Dec 15 at 11 am - patient instructed not to screen her calls at the time of the visit AND to answer her phone Elizabeth Jimenez [facility] Elizabeth Jimenez [facility] 12/15/2021 11:46 AM Addendum Patient called the office stating you did not phone her for her 11 am appt today- she confirmed the phone number on file service desk associate checked the patient in as arrived you should be able to call her back without rescheduling the time [phone] [facility] As of Date: 12/13/2021 (No Known Allergies) Date Reviewed: 11/11/2012 Reviewed by: Merry Alfaro Ma - Fully Assessed Reason for Visit: Appointment [186] Prescriptions as of 12/15/2021 - sertraline 100 mg tablet Take 100 mg by mouth once daily. - hydrOXYzine pamoate 25 mg capsule Take 25 mg by mouth three times daily as needed. - clonazePAM 1 mg tablet Take 1 mg by mouth twice daily as needed. - OLANZapine 5 mg tablet Take 5 mg by mouth daily at bedtime. - pantoprazole 40 mg tablet Take 40 mg by mouth once daily. - ondansetron 4 mg tablet Take 4 mg by mouth every 8 hours as needed. - prazosin 2 mg cap Take by mouth twice daily. - tiotropium (SPIRIVA WITH HANDIHALER) 18 mcg inhalation capsule Inhale 18 mcg as instructed once daily. - fluticasone-salmeterol (ADVAIR DISKUS) 100-50 mcg/dose DsDv Inhale 1 Puff as instructed twice daily. - nicotine 21 mg/24 hr Apply 1 Patch as directed every 24 hours. - gabapentin (NEURONTIN) 100 mg capsule Take 1cap nightly x 3-5days, increase 1cap every 3-5days until 3caps AM/3caps noon/3capsPM thereafter if tolerated/necessary. - Diclofenac Sodium (VOLTAREN) 1 % gel apply 2gms to areas of joint pain up to four times a day. Avoid contact with eyes. Do not exceed 32gm/day Problem List As Of Date 12/13/2021 Noted Resolved Hand pain [M79.643] 10/24/2012 Joint swelling [M25.40] 10/24/2012 DESMOND positive [R76.8] 10/24/2012 Elevated C-reactive protein (CRP) [R79.82] 10/24/2012 Family history of rheumatoid arthritis [Z82.61] 10/24/2012 Tobacco abuse [Z72.0] 10/24/2012 Numbness and tingling [R20.0, R20.2] 10/24/2012 Neuropathy [G62.9] 10/24/2012 Raynauds phenomenon [I73.00] 10/24/2012 Encounter Status:Closed by ELIZABETH RODRIGUEZ on 12/13/21 Normal [facility] BNPon 12-11-2021 Natriuretic peptide B (Bld) [Mass/Vol] 134.0 pg/mL Normal <=900.0 [facility] Comment on above: Performed By: #### M MA2 #### [facility] [address] [place] [address] Dr. Prince Olivas CBC AUTO DIFFon 12-11-2021 BASO # 0.0 103/ul Normal 0.0-0.1 [facility] Comment on above: Performed By: #### L IPID, CMP #### [facility] [address] [place] [address] Dr. Prince Olivas Basophils/100 WBC (Bld) 0.4 % Normal 0.2-2.0 [facility] Comment on above: Performed By: #### L IPID, CMP #### [facility] [address] [place] [address] Dr. Prince Olivas EO # 0.0 103/ul Normal 0.0-0.7 [facility] Comment on above: Performed By: #### L IPID, CMP #### [facility] [address] [place] [address] Dr. Prince Olivas Eosinophils/100 WBC (Bld) 0.3 % Critically low 0.9-7.0 [facility] Comment on above: Performed By: #### L IPID, CMP #### [facility] [address] [place] [address] Dr. Prince Olivas Erythrocyte distribution width (RBC) [Ratio] 13.1 % Normal 11.0-15.0 [facility] Comment on above: Performed By: #### L IPID, CMP #### [facility] [address] [place] [address] Dr. Prince Olivas Hematocrit (Bld) [Volume fraction] 45.9 % Normal 36.0-48.0 [facility] Comment on above: Performed By: #### L IPID, CMP #### [facility] [address] [place] [address] Dr. Prince Olivas Hemoglobin (Bld) [Mass/Vol] 15.3 g/dL Normal 12.0-16.0 [facility] Comment on above: Performed By: #### L IPID, CMP #### [facility] [address] [place] [address] Dr. Prince Olivas IG # 0.04 10e3/ul Critically high 0.00-0.03 [facility] Comment on above: Performed By: #### L IPID, CMP #### [facility] [address] [place] [address] Dr. Prince Olivas IG % 0.4 % Normal 0.0-0.5 [facility] Comment on above: Performed By: #### L IPID, CMP #### [facility] [address] [place] [address] Dr. Prince Olivas LYMPH # 1.9 103/ul Normal 1.2-3.8 [facility] Comment on above: Performed By: #### L IPID, CMP #### [facility] [address] [place] [address] Dr. Prince Olivas Lymphocytes/100 WBC (Bld) 17.0 % Critically low 20.5-60.0 [facility] Comment on above: Performed By: #### L IPID, CMP #### [facility] [address] [place] [address] Dr. Prince Olivas MANUAL DIFF REQ NO Normal [facility] Comment on above: Performed By: #### L IPID, CMP #### [facility] [address] [place] [address] Dr. Prince lOivas MCH (RBC) [Entitic mass] 31.4 pg Normal 26.7-34.0 [facility] Comment on above: Performed By: #### L IPID, CMP #### [facility] [address] [place] [address] Dr. Prince Olivas MCHC (RBC) [Mass/Vol] 33.3 g/dL Normal 29.9-35.2 [facility] Comment on above: Performed By: #### L IPID, CMP #### [facility] [address] [place] [address] Dr. Prince Olivas MCV (RBC) [Entitic vol] 94.3 fL Normal 81.0-99.0 [facility] Comment on above: Performed By: #### L IPID, CMP #### [facility] [address] [place] [address] Dr. Prince Olivas MONO # 0.6 103/ul Normal 0.3-0.8 [facility] Comment on above: Performed By: #### L IPID, CMP #### [facility] [address] [place] [address] Dr. Prince Olivas Monocytes/100 WBC (Bld) 5.6 % Normal 1.7-12.0 [facility] Comment on above: Performed By: #### L IPID, CMP #### [facility] [address] [place] [address] Dr. Prince Olivas NEUT # 8.3 103/ul Critically high 1.4-6.5 [facility] Comment on above: Performed By: #### L IPID, CMP #### [facility] [address] [place] [address] Dr. Prince Olivas Neutrophils/100 WBC (Bld) 76.3 % Critically high 43.0-75.0 [facility] Comment on above: Performed By: #### L IPID, CMP #### [facility] [address] [place] [address] Dr. Prince Olivas Platelet mean volume (Bld) [Entitic vol] 12.1 fL Normal 9.5-13.5 [facility] Comment on above: Performed By: #### L IPID, CMP #### [facility] [address] [place] [address] Dr. Prince Olivas PLT 204 103/ul Normal 150-450 [facility] Comment on above: Performed By: #### L IPID, CMP #### [facility] [address] [place] [address] Dr. Prince Olivas RBC 4.87 106/ul Normal 4.20-5.40 [facility] Comment on above: Performed By: #### L IPID, CMP #### [facility] [address] [place] [address] Dr. Prince Olivas WBC 10.9 103/ul Normal 4.0-11.0 [facility] Comment on above: Performed By: #### L IPID, CMP #### [facility] [address] [place] [address] Dr. Prince Olivas LACTATE/LACTIC ACIDon 2021 Lactate [Moles/Vol] 1.9 mmol/L Normal 0.4-1.9 [facility] Comment on above: Performed By: #### S ELNIUM #### [facility] [address] [place] [address] Dr. Prince Olivas LIPASEon 12-11-2021 Lipase [Catalytic activity/Vol] 49.0 U/L Critically low 73.0-393.0 [facility] Comment on above: Performed By: #### M MA2 #### [facility] [address] [address] [address] Prince Olivas PROF 14(COMP METB)on 022 Albumin [Mass/Vol] 4.5 g/dL Normal 3.4-5.0 [facility] Comment on above: Performed By: #### M MA2 #### [facility] [address] [place] [address] Dr. Prince Olivas Albumin/Globulin [Mass ratio] 1.7 {ratio} Normal [facility] Comment on above: Performed By: #### M MA2 #### [facility] [address] [place] [address] Dr. Prince Olivas ALP [Catalytic activity/Vol] 83 U/L Normal 46-116 [facility] Comment on above: Performed By: #### Marine MA2 #### [facility] [address] [place] [address] Dr. Prince Olivas ALT [Catalytic activity/Vol] 19 U/L Normal 14-59 [facility] Comment on above: Performed By: #### Marine MA2 #### [facility] [address] [place] [address] Dr. Prince Olivas Anion gap [Moles/Vol] 15.8 mmol/L Normal [facility] Comment on above: Performed By: #### Marine MA2 #### [facility] [address] [place] [address] Dr. Prince Olivas AST [Catalytic activity/Vol] 15 U/L Normal 15-37 [facility] Comment on above: Performed By: #### Marine MA2 #### [facility] [address] [place] [address] Dr. Prince Olivas Bilirubin [Mass/Vol] 0.6 mg/dL Normal 0.2-1.0 [facility] Comment on above: Performed By: #### M MA2 #### [facility] [address] [place] [address] Dr. Prince Olivas Calcium [Mass/Vol] 9.3 mg/dL Normal 8.5-10.[address] [facility] Comment on above: Performed By: #### M MA2 #### [facility] [address] [address] [address] Prince Olivas Chloride [Moles/Vol] 103 mmol/L Normal 98-107 [facility] Comment on above: Performed By: #### M MA2 #### [facility] [address] [place] [address] Dr. Prince Olivas CO2 [Moles/Vol] 25.9 mmol/L Normal 21.0-32.0 [facility] Comment on above: Performed By: #### M MA2 #### [facility] [address] [place] [address] Dr. Prince Olivas Creatinine [Mass/Vol] 0.97 mg/dL Normal 0.55-1.02 [facility] Comment on above: Performed By: #### M MA2 #### [facility] [address] [place] [address] Dr. Prince Olivas EGFR-AF HUNGARIAN >60 Normal >=60 [facility] Comment on above: Performed By: #### M MA2 #### [facility] [address] [place] [address] Dr. Prince Olivas EGFR-NON AF HUNGARIAN >60 Normal >=60 [facility] Comment on above: Performed By: #### M MA2 #### [facility] [address] [address] [address] Prince Olivas Globulin (S) [Mass/Vol] 2.7 g/dL Normal [facility] Comment on above: Performed By: #### M MA2 #### [facility] [address] [address] [address] Prince Olivas Glucose [Mass/Vol] 107 mg/dL Critically high 74-106 [facility] Comment on above: Performed By: #### M MA2 #### [facility] [address] [place] [address] Dr. Prince Olivas Potassium [Moles/Vol] 3.7 mmol/L Normal 3.5-5.1 [facility] Comment on above: Performed By: #### M MA2 #### [facility] [address] [place] [address] Dr. Prince Olivas Protein [Mass/Vol] 7.2 g/dL Normal 6.4-8.[address] [facility] Comment on above: Performed By: #### M MA2 #### [facility] [address] [address] [address] Prince Olivas Sodium [Moles/Vol] 141 mmol/L Normal 136-[address] [facility] Comment on above: Performed By: #### M MA2 #### [facility] [address] [address] [address] Prince Olivas Urea nitrogen [Mass/Vol] 11.0 mg/dL Normal 7.0-18.0 [facility] Comment on above: Performed By: #### M MA2 #### [facility] [address] [address] [address] Prince Olivas Urea nitrogen/Creatinine [Mass ratio] 11.3 mg/mg Normal [facility] Comment on above: Performed By: #### M MA2 #### [facility] [address] [address] [address] Prince Olivas TROPONIN, HIGH SENSITIVITYon 12-11-2021 HSTROP 5.5 pg/mL Normal 4.0-51.3 [facility] Comment on above: Result Comment: CUT- OFF POINTS HAVE BEEN ESTABLISHED BASED ON THE FOURTH UNIVERSAL DEFINITIONS OF MYOCARDIAL INFARCTION. THE UPPER REFERENCE LIMIT (URL) OF TROPONIN, DEFINED THE 99TH PERCENTILE OF cTnI DISTRIBUTION IN A REFERENCE POPULATION, HAS BEEN CONFIRMED THE DECISION THRESHOLD FOR IN DIAGNOSIS. Performed By: #### M MA2 #### [facility] [address] [address] [address] Prince Olivas XR CHEST 1 Von 12-11-2021 XR CHEST 1 V EXAMINATION: XR CHES T 1 V HISTORY: CHEST PAIN, UNSPECIFIED , shortness breath COMPARISON: XR abdomen with PA chest 11/14/2021 FINDINGS: LUNGS: Hyperexpanded lungs. No significant pulmonary parenchymal abnormalities. VASCULATURE: No increased pulmonary vasculature. PLEURA: No pneumothorax, effusion, or pleural thickening. CARDIAC: No cardiomegaly or cardiac silhouette abnormality. MEDIASTINUM: No visible mass or adenopathy. BONES: No fracture or visible bone lesion. OTHER: Negative. IMPRESSION: 1. No acute cardiopulmonary process. Electronically authenticated by: BRITNI HARRISON Date: 2021-12-11 15:20 Normal [facility] Coding Summary.on 12-06-2021 Coding Summary. [id number] [id number] [id number] [id number] dpDGzjaK1xsBCqV1d4HkJe XX08kH46IFzzFBDzVgU6Yl ZpbjsgbWFy Q3miQmFxlVVyFyl+PHRhYm xlIHdpZHRoPScxMDAlJyBz jWwmVO7nFy4nABImLQAleN xhcHNlOiBj v7asBZQeAMbaVV7yzUlsD3 YmxJP3SQXzx3h9Pt35oGM+ NMPaCHV4pLupJTkle130Cx Eqj9ykHST5 lIGsZAkpPII3L03tt5I2CL WzTXIkIER3wFT1dL4xfAkq hwdnP3LzoYEvQfE3DBZ5oN PgwD9ztElx wuvycS3sBgh+P44UAC2GRL SYWM5TSdz2V4LmXaogpJD+ CB74RIOzUQ79gKMuySVqf1 xmsYd5RqAi ARMcFUX6qMegFVasx6AaFO IyS85pfVYvg9D5FACtsGvz hCTtWaAmaSR1yZ0jGGwkaz ddg7ezvhrk Gxtgu7hwom01dN11P84oLY yxICWaLFA9CUBpJDRyvKoi xo8ueD6rFx5+CIxka0sdy1 hllZa5TeXb GUTienMveHokFFV2a0UaJy 86W0AwaAvbk8CcJsf3kr91 lWWlj7M3uOJ5RLyvIMZgmW 8iRXrmWoM9 CBPoOdBknR17uWElXKziGf 2tcQwwlJzrZA9pLVBzufmf OJQziR7cAAZqxATleKkgRU 4wNTBpbjtm i078HhNxGGK1DCElyUHdP3 DlzA3qTlBeCLCzPWNqL1Ud qCNdXJggC119STnmUhZ7WA NxtlXsH4Oj TCLajQkbKtH2f3C4Aa2Cm9 RsycnfRBL4MTbvOCJ5PpRh VwGjCvM1T4EiKzs5EGEfkY tuMA2sD1Jz JCXlbrucpxyexBT0IYDlRT HcaU61bSLoPKzzOj9io9G7 p894QNWiSYUfeW67Ke4ghK ogMTBwdCBU kU9mklwhv7goczalNmRrHL GoQVs0SVs5QINmoHroTcUj KXV4CsO9KTR5vIXwyW2fgK hwyeykxT2j Oyc+B72qwU1xPTL7BXR7fv lfHCWrdeXaKI24MG36O4Ks PjwvdGFibGU+PGRpdiBzdH gxRQ6nBsQf p3fwr5AkHXnzT0HpFBSdVH pvDre9BZGbAJS8rSN5iT9j GPCzGLcef9F9xUD7D0Ovbr Bpoe7ry4bi TPZqZKknF41egTFdc9M8KV BrhFB5BODtcLezRjFgrI79 Oyc+EXHkoTyqb8StMxvgd4 lit5rscHh2 VyMfMDAkdnSxwYioBVY9h1 AyIj84L64uGIbaKPPgRDLt CVNrQXRfdDnhwo6ltP5vIv 8+PGNvbCB3 dZN4gO0oQALaToR1JWlwX3 32PwYbxEMtWtwvu3fez2yg zFq0FzAaJRWrlwJszDsdWR E2r8TlNx53 V56vBTgjRNDmSKZpEAQvGB ExhJluli3jdK4aIj1+PC9j v2mmtb79wL11mTM+PHRkIH P3vYhwDEsv CGAqdU7fHCtwAnA6IWKgAm YvqS05jXSfRZlgLt7wpTrb bAbmOE0pVIRhsxoua970Ko Dfq8nnJLEo uPCkCTvnMAS3O36te6D9ZF PyTXMyHQQ1kSE1lC6ljLcc bjogbGVmdDsgdmVydGljYW giVRbvO860 IHRvcDsnPlBhdGllbnQgTm VcBRp2K6MlIwi9LQPbuXvu TH9zhDAdQNvjJj5feQincP mxXQ3bUXEa lmhdr681PbKxg6kaFIMjoC NhLIerGSG9A96uy5B6HPKs FJBwAUU6cTI6rN6jgUoniv ogbGVmdDsg kjXdrYajUEzbTCafQ369CZ RvcDsnPkJpcnRoIERhdGU6 SV42EI64lHVpr8J2mVC0T6 BhZGRpbmct npadnMO2SQBdJCSpyS84Ii 3abQhlBw2yWLHuWKO9AFDi hDGnY9NtmV8sBaCdTUHgMI KaG9PkiTOu NBycN370HKolMpB2BRYaly ZyH1ViCTEdiFxtVfD5z3J3 Bc0NP1T6UN95NI17vPExs4 G0rME5Q9Kn WUDzlzymlssnqKQ1BAEkQC XxxJ65Lm9xjQphJt4oWBBc RMS4PMNwjHSsH8RqrB6yUz AjMDAwMDAw K4BdxFFrVVcpE697MSenRv Z9HHPdkvIvV2BcBBGmrMdx ZsR0l2H9Uk5DQPz8LD13KJ 47yZKpi9Q9 zPV3X9RyIPIcvlineewwiT Y3YEZnOAXauG90Sd1edYiu Fg1gSOCkGHU5PYGueBNfG2 JtjM5rSbJt VJLyGKLsO0OsaKHhSWylW8 21BVvbCrD0YZFbxyCgS2Al GTIfyMqxSlJ9h5X7Cc2BBD QhUL42GFO0 jIL6IY15OM54A9SuLrhnsJ FibGU+PHRhYmxlIHdpZHRo UCztEJRdQjQiuSlqIG4dXu 9yZGVyLWNv iKxpsYYcSwBej8fpMORzLA wbTB6huPjxD2IhmLL2MKJr p0n7Rf70Y56jD1QknAR+PG RjtED9bYH7 gP2lQeLxZeW1AFvoK095Lg OltTTlWqusr2vfl3sktSy3 LqO0NXUycmQkwCbgCJZ5d3 NxTo17O19t IHdpZHRoPSIxNSUiIHZhbG kjyf9zuD2vNy0+PGNvbCB3 aLE2uU0mCzWdZzK2ENeqR4 49InRvcCIv Enxis8qea7vauHk0JcSiAL TxvmVsqKffJPL1r4LvLb84 T2VoxYbgq6DbUcx1cm58zO Ohp0J6rEV6 E5BzDOUdqqpgnSLbaCkoIY 8eOPNimrsmQZGzoO6aKZOt Y9r5QpZcPoW8FAhkR5Zlnq S7VFMdbNEw NFuePNI6H39bv7S9EWZbFW EfAKU7jRD7mC1ifQpskndj bGVmdDsgdmVydGljYWwtYW wfS778CXGs uGtlTPRfqL2vFSMfyXKmhF muVF2qYHLugfdlKkbAQYQL LfngCscTQpBNHRL0K4QiFd i2PEEgbXvp IH8xgMJnPTtoJz7jfPvxcD saQX1jEAXpyesdRIQhcY1g GRXmtKLrkOzxOJ1wKILrha zrz729RaOk KNH2ESQmpTGiT4XzlY2iOb SjOMFcFMEtG8IptSWoBRdu T379HLxeRiE5SWKymfIrD8 FsLWFsaWdu SfK7q0U6Ga7lEs7yXx7gQP zzBX16EA72jFNuh0C7xKB8 V4FyLRHakfazapuydEE9XK PxYNOopP02 nGSgIXskSw4ya3N6s111SF MrTIFdjK94Tb3ntGzbKWRi qEGTkY8idvkvl6caiahkZt AwMDAwMDt0 CNe3GEYlkNabCyTgCXF2Nz W0AQL7uSFohJ7sbWigwfof cY7nTqg+ZBIyJZOsgwK8R8 IjBfq9JIKh oZwgML3chZJzZKmyWx6ssV ejtBvhIB3wGMLkdsjpDPFt bU2aUOMnkUKyyBpqBQ6oEA Tyhhxms052 EqJbSOA9CBMfuGGtO0UkqI 6tZyIcDIItFPXhF0QlbMXl ANgqT331HGihZiS2ZQFupa KpS3VsNZNe yXszZgK7x1W4Jf3QTE9jdN L4U8ZdGlk3AJNkeJgkYV9c xSInGWjiGb8tcSwksErjKQ 4wNTBpbjtw YEJzvF8tROZnzWTzoRqgYI 5xRLUvakpwz282ErRwXSW4 EBLknCAsK1VpuC3dLqSgJZ YzLPIfE5Mp oZXzIHwyC538BVybTqF8VU VqubUbC4WbHCCsiAseRiZ5 c8R9Xm7UbOSmG7LwZ4d5A1 RkPjwvdHI+ PB74HDQgID63qAUzvPBro9 slkWl5XfZkIWXeOEY1xZmn BGhky9RnANNqP78rvXShc1 S7GMIokScb fWOpUsWsmND2dH9gDJihhr kdc6pwfbikTcqwt4wcpq28 wM46X49bDNivFKOtYSQwJU UiIHZhbGln rr8tsH2kLl7+WZAhkDW2xR C2iA7bKrMeRyT0ROceA758 RnBcnKPwJefwu4mbn2xsqH h1VuMwWTBv ptUxnUxyZAZ1z2FsPe64J5 9sIHdpZHRoPSIyMCUiIHZh dHwwwm0ssK2cCh0+PC9jb2 mzwy24uV33 dHI+WVDmMCM7nPnvCOubFA FdjS9iIHihLfW1ISPjPcAx fW14aXWiICeiYc0igQlkcL naLD6oDCRe lnqcx298LpTil2suBPVnsQ RdKGrwQEV2X46bd5P1FWGq DIDzTTQ0jUE5pQ3rgZaxsw ogbGVmdDsg gmIxcQkiKQikEDeuT908KY OqdLrzGmYnpPQoM3msowIB AA6wLeriuUB+PSImQLI7dU xlPSdwYWRk oU4aTUXdP5t6WkBzAdI2LT smW3RmwrI8SDUhhAYqLUNi sMUBzW4wumuye4yuxhmuIz AwMDAwMDt0 MTu3GYSeuLjdUzMaJGV7Sh A7IES5yDSmbQ0suCupxlig uA7zJhv+RklOOjwvdGQ+PH UoUDJ5mGym KGgcYOZntX0fIIRmR9x9Zy PnYoP9VPssO4XbtrS1WCEu dSCxIMVkhVVBmY0emcelh7 xvcjogIzAw XCBzHMb7XJc8SEYgzAlaDn GtAVC5MxC5JGM6xZYjpY8r xTzqfbeupX7lTjb+TVJOOj wvdGQ+PHRk TBX8eEvjJXbtAOJkoW0mJJ AzB3s0WtIlMqM2GCdbL8Dk dkK7LXBdnRGrKTHbwGKNnR 1xnjgqm3ro vmfzXyDwBMUhHDr1HTa2YR IoaEfcTiOpJNA1NqL0YIS9 lDZxtI1mfXsonhegfU5kGu c+DKE7NZL3 RL27BD83Y8AwJtvooJJdlT U+PHRhYmxlIHdpZHRoPScx PITmSgQnoHulRK6zJw5eCY VyLWNvbGxh cHNl (more content not included)... Normal [facility] Amylaseon 12-03-2021 Amylase [Catalytic activity/Vol] 32 U/L Normal 25-157 [facility] Comment on above: Performed By: #### 1 [id number], 7092654, 1693795, 2074011, 5620975, 2079023, 6562501 #### [facility] Laboratory [address] [place] [address] Auto Diffon 12-03-2021 Basophils/100 WBC (Bld) 0.6 % Normal 0.0-2.0 [facility] Comment on above: Order Comment: Order Added by Discern Expert. Performed By: #### 1 [id number], 7480590, 4893132, 1852632, 6547570, 2277760, 6761387 #### [facility] [address] [place] [address] Basophils/Leukocytes Auto (Bld) [Pure # fraction] 0.1 E9/L Normal 0.0-0.2 [facility] Comment on above: Order Comment: Order Added by Discern Expert. Performed By: #### 1 [id number], 5660135, 4843646, 8353255, 3395651, 3567918, 5778841 #### [facility] [address] [place] [address] Eosinophils/100 WBC (Bld) 0.1 % Normal 0.0-8.0 [facility] Comment on above: Order Comment: Order Added by Discern Expert. Performed By: #### 1 4106686, 7553303, 7006792, 6013246, 6654116, 0560483, 1235331 #### [facility] [address] [place] [address] Eosinophils/Leukocyt es Auto (Bld) [Pure # fraction] 0.0 E9/L Normal 0.0-0.5 [facility] Comment on above: Order Comment: Order Added by Discern Expert. Performed By: #### 1 1637445, 6656146, 1577485, 0808348, 4580901, 7193896, 8784202 #### [facility] [address] [place] [address] Lymphocytes/100 WBC (Bld) 16.1 % Normal 14.0-50.0 [facility] Comment on above: Order Comment: Order Added by Discern Expert. Performed By: #### 1 5376826, 4251324, 1312730, 9704862, 0490378, 6354815, 7882445 #### [facility] Laboratory [address] [place] [address] Lymphocytes/Leukocyt es Auto (Bld) [Pure # fraction] 1.5 E9/L Normal 1.0-4.0 [facility] Comment on above: Order Comment: Order Added by Discern Expert. Performed By: #### 1 3236492, 4605924, 9598108, 6845077, 5177824, 4069321, 0834586 #### [facility] [address] [place] [address] Monocytes/100 WBC (Bld) 4.6 % Normal 4.0-14.0 [facility] Comment on above: Order Comment: Order Added by Discern Expert. Performed By: #### 1 3857164, 1104193, 1570147, 4545354, 5386131, 0234730, 7338173 #### [facility] [address] [place] [address] Monocytes/Leukocytes Auto (Bld) [Pure # fraction] 0.4 E9/L Normal 0.2-1.0 [facility] Comment on above: Order Comment: Order Added by Discern Expert. Performed By: #### 1 8976033, 3386504, 7060036, 5358951, 5316915, 6202287, 4061535 #### [facility] [address] [place] [address] Neutrophils/100 WBC (Bld) 78.6 % High 36.0-75.0 [facility] Comment on above: Order Comment: Order Added by Discern Expert. Performed By: #### 1 6579136, 4150276, 9417016, 7369137, 5060795, 0421812, 4072180 #### [facility] [address] [place] [address] Neutrophils/Leukocyt es Auto (Bld) [Pure # fraction] 7.6 E9/L High 2.0-7.5 [facility] Comment on above: Order Comment: Order Added by Discern Expert. Performed By: #### 1 8032103, 6966614, 8150458, 2772595, 2085771, 0291258, 9011476 #### [facility] [address] [place] [address] BMPon 12-03-2021 Creatinine [Mass/Vol] 1.1 mg/dL Normal 0.5-1.3 [facility] Comment on above: Performed By: #### 1 5695295, 0588906, 0161241, 1669680, 2080552, 6071863, 3058656 #### [facility] [address] [place] [address] Urea nitrogen [Mass/Vol] 21 mg/dL Normal 5-21 [facility] Comment on above: Performed By: #### 1 1500462, 4475074, 4889831, 5889878, 5672573, 5000015, 2631658 #### [facility] [address] [place] [address] Urea nitrogen/Creatinine [Mass ratio] 19 No Units Normal 10-20 [facility] Comment on above: Performed By: #### 1 9286635, 5250236, 7091661, 9263533, 3104745, 0792153, 8511554 #### [facility] [address] [place] [address] Anion gap [Moles/Vol] 22 mmol/L High 6-16 [facility] Comment on above: Performed By: #### 1 4398938, 9619742, 6816518, 0865515, 2273838, 9430137, 8442459 #### [facility] [address] [place] [address] Calcium [Mass/Vol] 9.8 mg/dL Normal 8.9-11.1 [facility] Comment on above: Performed By: #### 1 4992350, 2650989, 3826311, 9609689, 8584392, 7187143, 6814096 #### [facility] [address] [place] [address] Chloride [Moles/Vol] 96 mmol/L Low 101-111 [facility] Comment on above: Performed By: #### 1 7085814, 0269519, 8678552, 0934917, 2306148, 0011415, 6934647 #### [facility] [address] [place] [address] CO2 [Moles/Vol] 19 mmol/L Low 21-31 [facility] Comment on above: Performed By: #### 1 4783585, 7539220, 3743754, 6685993, 8216510, 1828275, 1605077 #### [facility] [address] [place] [address] Glucose [Mass/Vol] 64 mg/dL Normal 55-199 [facility] Comment on above: Result Comment: If t his glucose result represents a fasting glucose, interpretation should refer to the following reference range: 55-99 mg/dL Performed By: #### 1 6324376, 4496681, 6630196, 8023627, 6541737, 2735819, 0100810 #### [facility] [address] [place] [address] Potassium [Moles/Vol] 4.3 mmol/L Normal 3.5-5.3 [facility] Comment on above: Performed By: #### 1 1636354, 0473495, 4989368, 9744996, 4728848, 7957798, 2691530 #### [facility] [address] [place] [address] Sodium [Moles/Vol] 133 mmol/L Low 135-145 [facility] Comment on above: Performed By: #### 1 5084412, 4205016, 3457356, 0421821, 1999820, 8572895, 2792939 #### [facility] [address] [place] [address] CBC w/ Auto Diffon 2 Erythrocyte distribution width (RBC) [Ratio] 13.5 % Normal 10.9-14.2 [facility] Comment on above: Performed By: #### 1 7198849, 2449003, 7369333, 8361554, 3235426, 9220137, 4678439 #### [facility] [address] [place] [address] Hematocrit (Bld) [Volume fraction] 51.0 % High 34.0-46.0 [facility] Comment on above: Performed By: #### 1 8723345, 5674800, 8440498, 2231260, 1533980, 6100281, 7600431 #### [facility] [address] [place] [address] Hemoglobin (Bld) [Mass/Vol] 16.8 g/dL High 12.0-16.0 [facility] Comment on above: Performed By: #### 1 3387618, 5384487, 8807306, 5158347, 7860360, 5746878, 8562880 #### [facility] [address] [place] [address] MCH (RBC) [Entitic mass] 30.9 pg Normal 27.0-34.0 [facility] Comment on above: Performed By: #### 1 2753724, 6211351, 6865892, 3271326, 9385594, 6068050, 2437022 #### [facility] [address] [place] [address] MCHC (RBC) [Mass/Vol] 32.9 g/dL Normal 31.4-36.0 [facility] Comment on above: Performed By: #### 1 8879452, 2463692, 9896789, 7406610, 3731931, 7251342, 9087610 #### [facility] [address] [place] [address] MCV (RBC) [Entitic vol] 94.0 fL Normal 80.0-100.0 [facility] Comment on above: Performed By: #### 1 0606566, 5612949, 1052111, 9010980, 8433030, 0292413, 9456830 #### [facility] [address] [place] [address] Platelet mean volume (Bld) [Entitic vol] 9.8 fL Normal 6.4-10.8 [facility] Comment on above: Performed By: #### 1 0119145, 5628504, 0112547, 6106607, 7450657, 4512651, 3596988 #### [facility] [address] [place] [address] Platelets (Bld) [#/Vol] 212.0 E9/L Normal 150.0-500.0 [facility] Comment on above: Performed By: #### 1 3166277, 5309185, 0997655, 6774357, 7976152, 6097896, 6149304 #### [facility] [address] [place] [address] RBC (Bld) [#/Vol] 5.4 E12/L Normal 4.3-5.9 [facility] Comment on above: Performed By: #### 1 1542455, 0859886, 2336363, 6242724, 6092070, 3219406, 1670130 #### [facility] [address] [place] [address] WBC corrected for nucl RBC Auto (Bld) [#/Vol] 9.6 E9/L Normal 4.0-11.0 [facility] Comment on above: Performed By: #### 1 0763387, 5134599, 5356428, 9885338, 5350471, 8136544, 9256298 #### [facility] [address] [place] [address] Consent for Treatmenton 11-16 Consent for Treatment [id number] 0CD:127 Normal [facility] Discharge Instructionson Discharge Instructions [id number] CD:127 Normal [facility] ED Clinical Summaryon 2021 ED Clinical Summary [address] [address] ED Clinical Summary Person Information Name: SAI PINEDA Natalie/[facility] Age: 51 Years : 1970 Sex: Female Language: Ukrainian PCP: CRISTINA IQBAL CNP Marital Status: MRN: Visit Id: Visit Reason: Nausea; Abdominal pain; PYTMB-TBROS-ITNA BREATHING Speciality: Acuity: 3 Enc Type: Emergency Med Service: Emergency Arrival: 12/03/2021 09:55:45 Discharge: 12/03/2021 13:54:49 LOS: 000 03:59 Checkin: 12/03/2021 09:55:45 Checkout: 12/03/2021 13:54:49 Dispo Type: Home (Routine DC) EVENTS: Event Name Event Status Request Date/Time Start Date/Time Complete Date/Time Arrive Complete 12/03/2021 09:55:45 12/03/2021 09:55:45 12/03/2021 09:55:45 Document Home Meds Request 12/03/2021 09:55:45 Triage Complete 12/03/2021 09:55:45 12/03/2021 10:15:35 12/03/2021 10:15:35 Bed Assign Complete 12/03/2021 10:15:47 12/03/2021 10:15:47 12/03/2021 10:15:47 Dr Exam Complete 12/03/2021 10:15:47 12/03/2021 10:38:51 12/03/2021 10:38:51 RN Exam Complete 12/03/2021 10:15:47 12/03/2021 12:19:50 12/03/2021 12:19:50 Registration Complete 12/03/2021 10:21:52 12/03/2021 10:21:52 12/03/2021 10:21:52 Reg Complete Request 12/03/2021 10:21:52 Reg Bed Request Complete 12/03/2021 10:21:52 12/03/2021 10:21:52 12/03/2021 10:21:52 Registration Request 12/03/2021 10:38:51 EKG Complete 12/03/2021 11:05:50 12/03/2021 11:15:02 Meds Admin Complete 12/03/2021 11:05:50 12/03/2021 11:52:35 Pending Labs Request 12/03/2021 11:05:50 Lab Request 12/03/2021 11:05:50 Urine Collect Request 12/03/2021 11:05:50 Pending Labs Complete 12/03/2021 11:30:09 12/03/2021 11:30:09 12/03/2021 11:50:45 Lab Complete 12/03/2021 11:30:09 12/03/2021 11:30:09 12/03/2021 11:50:45 Meds Admin Complete 12/03/2021 11:39:14 12/03/2021 11:52:35 Pending Labs Complete 12/03/2021 11:39:37 12/03/2021 11:39:37 12/03/2021 11:39:44 Lab Complete 12/03/2021 11:39:37 12/03/2021 11:39:37 12/03/2021 11:39:44 Pending Labs Complete 12/03/2021 12:51:41 12/03/2021 12:51:41 12/03/2021 12:51:42 Discharge Complete 12/03/2021 13:36:07 12/03/2021 13:54:54 12/03/2021 13:54:54 Transfer Complete 12/03/2021 13:54:54 12/03/2021 13:54:54 12/03/2021 13:54:54 ADDRESS: [address] [facility] [id number] PHYS DOC NOTES: MEDICAL INFORMATION: Prescriptions Given: New Medications [facility]/pharmacy #[id number], [address], [place] [id number], [phone] promethazine (Phenergan 25 mg Supp) 1 Suppositories By rectum every 6 hours as needed as needed for nausea. Insert one per rectum every six hours as needed for nausea and vomiting. Refills: 0. promethazine (promethazine 25 mg Tab) 1 Tablets By Mouth every 4 hours. Refills: 0. Medications to Continue Taking That Have Changed [facility]/pharmacy #[id number], [address], [place] [phone], [phone] START: pantoprazole (Protonix 40 mg Tab-DR) 1 Tablets By Mouth every day. Refills: 0. Printed Prescriptions START: alprazolam (Xanax 0.5 mg Tab) 1 Tablets By Mouth 3 times a day as needed for anxiety. Refills: 0. Other Medications START: alprazolam (Xanax 0.5 mg Tab) 1 Tablets By Mouth 3 times a day as needed for anxiety. Refills: 2. START: pantoprazole (pantoprazole 40 mg Oral EC Tab) 1 Tablets By Mouth every day. Medications to Continue with No Changes Other Medications albuterol (albuterol 0.083% Inh Misty 3 mL) 3 Milliliter Inhalation every 6 hours. Q6H and PRN. albuterol (Ventolin HFA 90 mcg/inh Aerosol) 2 Puffs Inhalation every 4 hours as needed for wheezing. clonidine (cloNIDine 0.2 mg Tab) 1 Tablets By Mouth at bedtime. Refills: 1. hydrOXYzine (hydrOXYzine hydrochloride 50 mg oral tablet) 1 Tablets By Mouth 3 times a day as needed as needed for anxiety. Refills: 0. ondansetron (Zofran 4 mg Tab) 1 Tablets By Mouth every 8 hours as needed Nausea. Refills: 0. tiotropium (Spiriva Respimat 10 ACT 2.5 mcg/inh inhalation aerosol) 2 Puffs Inhalation every day. PATIENT EDUCATION INFORMATION: Instructions: Gastritis, Adult, [id number]; Abdominal Pain, Adult Follow up: With: Address: When: CRISTINA IQBAL [address] [facility], [place], [place] [phone] Business (1) In 3 days 12/06/2021 DIAGNOSIS: 1:Upper abdominal pain; 2:Gastritis; 3:Anxiety Normal [facility] ED Note-Physicianon 12-04-19 ED Note-Physician Basic Information Time Seen: Vipin Pina MD 12/03/2021 10:38 Chief Complaint Abdomial pain, nausea and vomitng x2 weeks. Anxious. Unable to keep xanax down per pt. 15 lb weight loss in 2 weeks History of Present Illness 51-year-old female presents the complaining of upper abdominal pain which started 4 days ago. The pain has been there fairly constantly. The pain is associated with nausea and occasional vomiting. Patient had a similar episode within the past month that lasted for 8 days and was treated with Zofran. Patient states she has a history of PTSD and takes Xanax on a daily basis. Patient states that she did vomit the Xanax this morning when she tried to take it for her anxiety. Patient states has been since at least several days since her last bowel movement. She denies any dysuria. Patient states she has had a significant weight loss over the past year. Patient has had a previous appendectomy and cholecystectomy and hysterectomy. 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 She is a smoker with COPD. Review of Systems A 10 point review of systems is negative except as noted above. Medical and Surgical History: Reviewed and noted Social history: Lives at home Tobacco: Denies Physical Exam Vitals & Measurements T: 36.8 ?C(Oral) HR: 96(Monitored) RR: 18 BP: 96/75 SpO2: 98% HT: 172.9 cm HT: 172.9 cm WT: 46.2 kg WT: 46.2 kg BMI: 15.45 This is a well-developed 51-year-old female she is alert and oriented skin is warm and dry color is pink on room air. Oral mucosa does appear to be slightly dry. The heart is regular without murmur gallop or rub. Lungs are clear to auscultation there is no respiratory guarding. The abdomen is flat soft tender across the upper abdomen but there is no guarding or rebound. Bowel sounds are hypoactive. There is no CVA tenderness. Medical Decision Making In reviewing the patient's past medical records it does appear that she has had a diagnosis of gastritis in the past. It also appears that her stomach symptoms are closely related to her anxiety. The fact that she could not keep her Xanax down today may have been an element of the exacerbation. Patient is currently taking Protonix. We can consider using the Phenergan suppositories as a substitute for the Zofran if it is not effective. Assessment/Plan 1. Upper abdominal pain (R10.10: Upper abdominal pain, unspecified) 2. Gastritis (K29.70: Gastritis, unspecified, without bleeding) 3. Anxiety (F41.9: Anxiety disorder, unspecified) Orders: alprazolam, 0.5 mg = 1 tab(s), Oral, TID, PRN for anxiety, # 12 tab(s), Refills(s) 0 diazepam, 5 mg = 1 mL, Injection, IV Push, Once, Stop date 12/03/21 11:39:00 EDT, STAT, Start date 12/03/21 11:39:00 EDT, 12/03/21 11:39:00 EDT dicyclomine, 20 mg = 2 mL, Injection, IntraMuscular, Once, Stop date 12/03/21 11:05:00 EDT, STAT, Start date 12/03/21 11:05:00 EDT, 12/03/21 11:05:00 EDT famotidine, 20 mg = 2 mL, Soln-IV, IV Push, Once, Stop date 12/03/21 11:05:00 EDT, STAT, Start date 12/03/21 11:05:00 EDT, 12/03/21 11:05:00 EDT pantoprazole, 40 mg = 1 tab(s), Oral, Daily, # 30 tab(s), Refills(s) 0, Pharmacy: [facility]/pharmacy #[id number], 172.9, cm, 12/03/21 10:15:00 EDT, Height/Length Dosing, 46.2, kg, 12/03/21 10:15:00 EDT, Weight Dosing promethazine, 25 mg = 1 tab(s), Oral, q4hr, # 12 tab(s), Refills(s) 0, Pharmacy: [facility]/pharmacy #[id number], 172.9, cm, 12/03/21 10:15:00 EDT, Height/Length Dosing, 46.2, kg, 12/03/21 10:15:00 EDT, Weight Dosing promethazine, 25 mg = 1 supp, Rectal, q6hr, PRN as needed for nausea, Insert one per rectum every six hours as needed for nausea and vomiting, # 6 EA, Refills(s) 0, Pharmacy: [facility]/pharmacy #[id number], 172.9, cm, 12/03/21 10:15:00 EDT, Height/Length Dosing, 46.2, kg, 11/16... promethazine, 12.5 mg = 0.5 mL, Injection, IV Push, Once, Stop date 12/03/21 11:05:00 EDT, STAT, Start date 12/03/21 11:05:00 EDT, 12/03/21 11:05:00 EDT Sodium Chloride 0.9% intravenous solution, 1,000 mL, Soln-IV, IV, Once, Stop date 12/03/21 11:05:00 EDT, STAT, Start date 12/03/21 11:05:00 EDT, mL/hr, Infuse over 61, minute(s) Amylase Level Automated Diff Basic Metabolic Panel CBC w/ Auto Diff ECG 12 Lead Adult eGFR Extra SST Tube Hepatic Function Panel Lipase Level UA With Cult Reflex Medications Administered Given diazepam 5 mg/mL Inj, 5 mg, IV Push dicyclomine 10 mg/mL Inj, 20 mg, IntraMuscular famotidine 10 mg/mL IV Misty, 20 mg, IV Push [id number] [F], 1000 mL, IV promethazine 25 mg/mL Inj, 12.5 mg, IV Push Disposition Plan Discharge Prescription List Prescriptions Phenergan 25 mg Supp, 25 mg= 1 supp, Rectal, q6hr, PRN promethazine 25 mg Tab, 25 mg= 1 tab(s), Oral, q4hr Protonix 40 mg Tab-DR, 40 mg= 1 tab(s), Oral, Daily Xanax 0.5 mg Tab, 0.5 mg= 1 tab(s), Oral, TID, PRN Follow-up With When Contact Information CRISTINA IQBAL In 3 days 12/06/2021 EDT [address] [facility] [address] [phone] Business (1) Additional Instructions: Patient Ed (more content not included)... Normal [facility] Comment on above: Result Comment: Shivam carrillo Signed By: Vipin Pina MD\.br\Date and Time Signed: 12/03/21 13:50 EDT ED Patient Education Noteon 12-03-2021 ED Patient Education Note Gastroenterology Gastritis, Adult Gastritis is swelling (inflammation) of the stomach. Gastritis can develop quickly (acute). It can also develop slowly over time (chronic). It is important to get help for this condition. If you do not get help, your stomach can bleed, and you can get sores (ulcers) in your stomach. What are the causes? This condition may be caused by: ? Germs that get to your stomach. ? Drinking too much alcohol. ? Medicines you are taking. ? Too much acid in the stomach. ? A disease of the intestines or stomach. ? Stress. ? An allergic reaction. ? Crohn's disease. ? Some cancer treatments (radiation). Sometimes the cause of this condition is not known. What are the signs or symptoms? Symptoms of this condition include: ? Pain in your stomach. ? A burning feeling in your stomach. ? Feeling sick to your stomach (nauseous). ? Throwing up (vomiting). ? Feeling too full after you eat. ? Weight loss. ? Bad breath. ? Throwing up blood. ? Blood in your poop (stool). How is this diagnosed? This condition may be diagnosed with: ? Your medical history and symptoms. ? A physical exam. ? Tests. These can include: ? Blood tests. ? Stool tests. ? A procedure to look inside your stomach (upper endoscopy). ? A test in which a sample of tissue is taken for testing (biopsy). How is this treated? Treatment for this condition depends on what caused it. You may be given: ? Antibiotic medicine, if your condition was caused by germs. ? H2 blockers and similar medicines, if your condition was caused by too much acid. Follow these instructions at home: Medicines ? Take wruh-dyu-fniwsfc and prescription medicines only as told by your doctor. ? If you were prescribed an antibiotic medicine, take it as told by your doctor. Do not stop taking it even if you start to feel better. Eating and drinking ? Eat small meals often, instead of large meals. ? Avoid foods and drinks that make your symptoms worse. ? Drink enough fluid to keep your pee (urine) pale yellow. Alcohol use ? Do not drink alcohol if: ? Your doctor tells you not to drink. ? You are , may be , or are planning to become . ? If you drink alcohol: ? Limit your use to: ? 0?1 drink a day for women. ? 0?2 drinks a day for men. ? Be aware of how much alcohol is in your drink. In the [place] one drink equals one 12 oz bottle of beer (355 mL), one 5 oz glass of wine (148 mL), or one 1? oz glass of hard liquor (44 mL). General instructions ? Talk with your doctor about ways to manage stress. You can exercise or do deep breathing, meditation, or yoga. ? Do not smoke or use products that have nicotine or tobacco. If you need help quitting, ask your doctor. ? Keep all follow-up visits as told by your doctor. This is important. Contact a doctor if: ? Your symptoms get worse. ? Your symptoms go away and then come back. Get help right away if: ? You throw up blood or something that looks like coffee grounds. ? You have black or dark red poop. ? You throw up any time you try to drink fluids. ? Your stomach pain gets worse. ? You have a fever. ? You do not feel better after one week. Summary ? Gastritis is swelling (inflammation) of the stomach. ? You must get help for this condition. If you do not get help, your stomach can bleed, and you can get sores (ulcers). ? This condition is diagnosed with medical history, physical exam, or tests. ? You can be treated with medicines for germs or medicines to block too much acid in your stomach. This information is not intended to replace advice given to you by your health care provider. Make sure you discuss any questions you have with your health care provider. Document Released: 08/20/2008 Document Revised: 07/22/2018 Document Reviewed: 07/22/2018 [employer] Patient Education ? 2020 [employer] Abdominal Pain, Adult Pain in the abdomen (abdominal pain) can be caused by many things. Often, abdominal pain is not serious and it gets better with no treatment or by being treated at home. However, sometimes abdominal pain is serious. Your health care provider will ask questions about your medical history and do a physical exam to try to determine the cause of your abdominal pain. Follow these instructions at home: Medicines ? Take arud-bin-oocloca and prescription medicines only as told by your health care provider. ? Do not take a laxative unless told by your health care provider. General instructions ? Watch your condition for any changes. ? Drink enough fluid to keep your urine pale yellow. ? Keep all follow-up visits as told by your health care provider. This is important. Contact a health care provider if: ? Your abdominal pain changes or gets worse. ? You are not hungry or you lose weight without trying. ? You are cons (more content not included)... Normal [facility] ED Patient Summaryon 022 ED Patient Summary [place] [id number] Patient Discharge Instructions Person Information Name: SAI PINEDA Age: 51 Years Arrival Date: 12/03/2021 09:55:45 Discharge Diagnosis: 1:Upper abdominal pain; 2:Gastritis; 3:Anxiety Primary Care Physician: CRISTINA IQBAL CNP Provider Information Primary Provider: Vipin Pina MD Advanced Implementation Director:None The exam and treatment you received in the Emergency Department were for an urgent problem and are not intended as complete care. It is important that you follow up with a doctor, nurse practitioner, or physician?s administrative library assistant for ongoing care. If your symptoms become worse or you do not improve as expected and you are unable to reach your usual health care provider, you should return to the Emergency Department. We are available 24 hours a day. SAI PINEDA has been given the following list of patient education materials, prescriptions and follow-up instructions: Follow-up Instructions: With: Address: When: CRISTINA IQBAL [address], [place] [id number] [phone] Business (1) In 3 days 12/06/2021 In the event that this physician does not participate in your insurance network, please consult with your insurance company to find a nearby participating provider. Patient Education Materials: Gastritis, Adult, Ijvm-kk-Gcvk; Abdominal Pain, Adult A MESSAGE TO ALL PATIENTS REGARDING OPIOIDS PRESCRIPTION OPIOIDS: WHAT YOU NEED TO KNOW Prescription opioids can be used to help relieve qiklgsgh-hp-gdkkoz pain and are often prescribed following a surgery or injury, or for certain health conditions. These medications can be an important part of the treatment but also come with serious risks. It is important to work with your healthcare provider to make sure you are getting the safest, most effective care. WHAT ARE THE RISKS AND SIDE EFFECTS OF OPIOID USE? Prescription opioids carry serious risks of addiction and overdose, especially with prolonged use. An opioid overdose, often marked by slowed breathing, can cause sudden . The use of prescription opioids can have a number of side effects as well, even when taken as directed: ? Tolerance?meaning you might need to take more of the medication for the same pain relief ? Physical dependence?meaning you have symptoms of withdrawal when a medication is stopped ? Increased sensitivity to pain ? Constipation ? Nausea, vomiting, and dry mouth ? Sleepiness and dizziness ? Confusion ? Depression ? Low levels of testosterone that can result in lower sex drive, energy, and strength ? Itching and sweating RISKS ARE GREATER WITH: ? History of drug misuse, substance use disorder, or overdose ? Mental health conditions (such as depression or anxiety) ? Sleep apnea ? Older age (65 years and older) ? Avoid alcohol while taking prescription opioids. Also, unless specifically advised by your health care provider, medications to avoid include: ? Benzodiazepines (such as Xanax or Valium) ? Muscle relaxants (such as Soma or Flexeril) ? Hypnotics (such as Ambien or Lunesta) ? Other prescription opioids KNOW YOUR OPTIONS Talk to your health care provider about ways to manage your pain that don?t involve prescription opioids. Some of these options may actually work better and have fewer risks and side effects. Options may include: ? Pain relievers such as acetaminophen, ibuprofen, and naproxen ? Some medication that are also used for depression or seizures ? Physical therapy and exercise ? Cognitive behavioral therapy, a psychological, goal-directed approach, in which patients learn how to modify physical, behavioral, and emotional triggers of pain and stress. IF YOU ARE PRESCRIBED OPIOIDS FOR PAIN: ? Never take opioids in greater amounts or more often than prescribed. ? Follow up with your primary health care provider. o Work together to create a plan on how to manage your pain. o Talk about ways to help manage your pain that don?t involve prescription opioids. o Talk about any and all concerns and side effects. ? Help prevent misuse and abuse o Never sell or share prescription opioids. o Never use another person?s prescription opioids. ? Store prescription opioids in a secure place and out of reach of others (this may include visitors, children, friends, and family). ? Safely dispose of unused prescription opioids: Find your community drug take-back program or your pharmacy mail-back program, or flush them down the toilet, following guidance from the Food and Drug Administration (www.fda.gov/Drugs/Res ourcesForYou). ? Visit www.cdc.gov/drugoverdo se to learn about the risks of opioids abuse and overdose. ? If you believe you may be struggling with addiction, tell your health client care consultant and ask for guidance or call [facility]? (more content not included)... Normal [facility] Hep Func Panelon 12-03-2021 Albumin [Mass/Vol] 5.3 g/dL High 3.3-5.0 [facility] Comment on above: Performed By: #### 1 [id number], [id number], 6853013, 2202875, 7557431, 4402713, 8649475 #### [facility] Laboratory [address] [place] [address] Albumin/Globulin (S) [Mass conc ratio] 1.8 Normal 1.1-2.2 [facility] Comment on above: Performed By: #### 1 [id number], [id number], 4524691, 4622919, 8009477, 1056415, 6791225 #### [facility] [address] [place] [address] ALP [Catalytic activity/Vol] 79 Int._Unit/L Normal 21-98 [facility] Comment on above: Performed By: #### 1 [id number], 6847505, 3136125, 1960655, 4625007, 2205241, 1070724 #### [facility] [address] [place] [address] ALT No additional P-5'-P [Catalytic activity/Vol] 14 Int._Unit/L Normal 6-46 [facility] Comment on above: Performed By: #### 1 4052941, 3662601, 6262102, 7826230, 7475736, 3375238, 6334048 #### [facility] [address] [place] [address] AST [Catalytic activity/Vol] 21 Int._Unit/L Normal 5-43 [facility] Comment on above: Performed By: #### 1 [id number], 3120499, 9161761, 8332999, 6633753, 1034625, 4917145 #### [facility] [address] [place] [id number] Bilirubin [Mass/Vol] 1.2 mg/dL High 0.0-1.1 [facility] Comment on above: Performed By: #### 1 0519437, 4255371, 0240342, 4694340, 8404439, 0386745, 5096256 #### [facility] [address] [place] [address] Bilirubin.direct [Mass/Vol] 0.2 mg/dL Normal 0.1-0.4 [facility] Comment on above: Performed By: #### 1 5353096, 3664494, 1618767, 8725552, 3223901, 7849046, 3415331 #### [facility] [address] [place] [address] Bilirubin.indirect [Mass or moles/Vol] 1.0 mg/dL High 0.1-0.9 [facility] Comment on above: Performed By: #### 1 6904691, 7664255, 0552085, 2883593, 4260219, 7059898, 4845842 #### [facility] [address] [place] [address] Globulin (S) [Mass/Vol] 3.0 g/dL Normal 1.4-4.0 [facility] Comment on above: Performed By: #### 1 5262475, 9390200, 1622889, 9003846, 3515217, 9324078, 6981442 #### [facility] [address] [place] [address] Protein [Mass/Vol] 8.3 g/dL High 6.0-7.8 [facility] Comment on above: Performed By: #### 1 8268818, 3457843, 3046794, 6770149, 8097246, 5117083, 4952719 #### [facility] [address] [place] [address] Lipase Levelon 12-03-2021 Lipase [Catalytic activity/Vol] 21 U/L Normal 13-58 [facility] Comment on above: Performed By: #### 1 5529063, 2527774, 6716370, 3674305, 7628589, 1235621, 3693524 #### [facility] [address] [place] [address] eGFRon 12-03-2021 GFR/1.73 sq M.predicted among blacks MDRD (S/P/Bld) [Vol rate/Area] mL/min/{1.73_m2} Normal >=59 [facility] Comment on above: Order Comment: Order added by Discern Expert. Result Comment: eGFR is race adjusted. AA=. Performed By: #### 1 [id number], 4216832, 0515376, 0826210, 1072531, 2142249, 5431277 #### [facility] [address] [place] [address] GFR/1.73 sq M.predicted among non-blacks MDRD (S/P/Bld) [Vol rate/Area] 52 mL/min/1.73 m2 Low >=59 [facility] Comment on above: Order Comment: Order added by Discern Expert. Result Comment: Parking Worker julian kidney disease could be indicated at eGFR's of less than 60 mL/min/1.73m2. Kidney failure is indicated at less than 15 mL/min/1.73m2. Performed By: #### 1 [id number], 1139061, 1596297, 7693738, 6347334, 3078954, 5178923 #### [facility] [address] [place] [address] CARDIAC SIMA ADMITon 022 CK [Catalytic activity/Vol] 72 U/L Normal 26-192 [facility] Comment on above: Performed By: #### S ELNIUM #### [facility] [address] [address] [address] Prince Olivas CK.MB [Mass/Vol] 1.28 ng/mL Normal <=3.60 [facility] Comment on above: Performed By: #### S ELNIUM #### [facility] [address] [address] [address] Prince Olivas HSTROP 5.4 pg/mL Normal 4.0-51.3 [facility] Comment on above: Result Comment: CUT- OFF POINTS HAVE BEEN ESTABLISHED BASED ON THE FOURTH UNIVERSAL DEFINITIONS OF MYOCARDIAL INFARCTION. THE UPPER REFERENCE LIMIT (URL) OF TROPONIN, DEFINED THE 99TH PERCENTILE OF cTnI DISTRIBUTION IN A REFERENCE POPULATION, HAS BEEN CONFIRMED THE DECISION THRESHOLD FOR IN DIAGNOSIS. Performed By: #### S ELNIUM #### [facility] [address] [address] [address] Prince Olivas JENNIFER 58 ng/mL Normal 9-82 [facility] Comment on above: Performed By: #### S ELVETOUM #### [facility] [address] [place] [address] Dr. Prince Olivas CBC AUTO DIFFon 11-14-2021 BASO # 0.1 103/ul Normal 0.0-0.1 [facility] Comment on above: Performed By: #### L IPID, CMP #### [facility] [address] [address] [address] Prince Olivas Basophils/100 WBC (Bld) 0.6 % Normal 0.2-2.0 [facility] Comment on above: Performed By: #### L IPID, CMP #### [facility] [address] [place] [address] Dr. Prince Olivas EO # 0.1 103/ul Normal 0.0-0.7 [facility] Comment on above: Performed By: #### L IPID, CMP #### [facility] [address] [place] [address] Dr. Prince Olivas Eosinophils/100 WBC (Bld) 0.9 % Normal 0.9-7.0 [facility] Comment on above: Performed By: #### L IPID, CMP #### [facility] [address] [place] [address] Dr. Prince Olivas Erythrocyte distribution width (RBC) [Ratio] 13.0 % Normal 11.0-15.0 [facility] Comment on above: Performed By: #### L IPID, CMP #### [facility] [address] [place] [address] Dr. Prince Olivas Hematocrit (Bld) [Volume fraction] 46.3 % Normal 36.0-48.0 [facility] Comment on above: Performed By: #### L IPID, CMP #### [facility] [address] [place] [address] Dr. Prince Olivas Hemoglobin (Bld) [Mass/Vol] 15.8 g/dL Normal 12.0-16.0 [facility] Comment on above: Performed By: #### L IPID, CMP #### [facility] [address] [place] [address] Dr. Prince Olivas IG # 0.03 10e3/ul Normal 0.00-0.03 [facility] Comment on above: Performed By: #### L IPID, CMP #### [facility] [address] [place] [address] Dr. Pirnce Olivas IG % 0.3 % Normal 0.0-0.5 [facility] Comment on above: Performed By: #### L IPID, CMP #### [facility] [address] [place] [address] Dr. Prince Olivas LYMPH # 2.8 103/ul Normal 1.2-3.8 [facility] Comment on above: Performed By: #### L IPID, CMP #### [facility] [address] [place] [address] Dr. Prince Olivas Lymphocytes/100 WBC (Bld) 31.8 % Normal 20.5-60.0 [facility] Comment on above: Performed By: #### L IPID, CMP #### [facility] [address] [place] [address] Dr. Prince Olivas MANUAL DIFF REQ NO Normal [facility] Comment on above: Performed By: #### L IPID, CMP #### [facility] [address] [place] [address] Dr. Prince Olivas MCH (RBC) [Entitic mass] 31.5 pg Normal 26.7-34.0 [facility] Comment on above: Performed By: #### L IPID, CMP #### [facility] [address] [place] [address] Dr. Prince Olivas MCHC (RBC) [Mass/Vol] 34.1 g/dL Normal 29.9-35.2 [facility] Comment on above: Performed By: #### L IPID, CMP #### [facility] [address] [place] [address] Dr. Prince Olivas MCV (RBC) [Entitic vol] 92.4 fL Normal 81.0-99.0 [facility] Comment on above: Performed By: #### L IPID, CMP #### [facility] [address] [place] [address] Dr. Prince Olivas MONO # 0.6 103/ul Normal 0.3-0.8 [facility] Comment on above: Performed By: #### L IPID, CMP #### [facility] [address] [place] [address] Dr. Prince Olivas Monocytes/100 WBC (Bld) 6.8 % Normal 1.7-12.0 [facility] Comment on above: Performed By: #### L IPID, CMP #### [facility] [address] [place] [address] Dr. Prince Olivas NEUT # 5.3 103/ul Normal 1.4-6.5 [facility] Comment on above: Performed By: #### L IPID, CMP #### [facility] [address] [place] [address] Dr. Prince Olivas Neutrophils/100 WBC (Bld) 59.6 % Normal 43.0-75.0 [facility] Comment on above: Performed By: #### L IPID, CMP #### [facility] [address] [place] [address] Dr. Prince Olivas Platelet mean volume (Bld) [Entitic vol] 11.6 fL Normal 9.5-13.5 [facility] Comment on above: Performed By: #### L IPID, CMP #### [facility] [address] [place] [address] Dr. Prince Olivas PLT 185 103/ul Normal 150-450 [facility] Comment on above: Performed By: #### L IPJACLYN, CMP #### [facility] [address] [place] [address] Dr. Prince Olivas RBC 5.01 106/ul Normal 4.20-5.40 [facility] Comment on above: Performed By: #### L ONDINA, CMP #### [facility] [address] [place] [address] Dr. Prince Olivas WBC 8.9 103/ul Normal 4.0-11.0 [facility] Comment on above: Performed By: #### L ONDINA, CMP #### [facility] [address] [place] [address] Dr. Prince Olivas LIPASEon 11-14-2021 Lipase [Catalytic activity/Vol] 84.0 U/L Normal 73.0-393.0 [facility] Comment on above: Performed By: #### S ARGENTINANIUM #### [facility] [address] [place] [address] Dr. Prince Olivas PROF 14(COMP METB)on 022 Albumin [Mass/Vol] 4.1 g/dL Normal 3.4-5.0 [facility] Comment on above: Performed By: #### S ADOREUM #### [facility] [address] [place] [address] Dr. Prince Olivas Albumin/Globulin [Mass ratio] 1.6 {ratio} Normal [facility] Comment on above: Performed By: #### S ADOREUM #### [facility] [address] [address] [address] Prince Olivas ALP [Catalytic activity/Vol] 76 U/L Normal 46-116 [facility] Comment on above: Performed By: #### S ELNIUM #### [facility] [address] [address] [address] Prince Olivas ALT [Catalytic activity/Vol] 14 U/L Normal 14-59 [facility] Comment on above: Performed By: #### S ELNIUM #### [facility] [address] [address] [address] Prince Olivas Anion gap [Moles/Vol] 17.7 mmol/L Normal [facility] Comment on above: Performed By: #### S ELNIUM #### [facility] [address] [address] [address] Prince Olivas AST [Catalytic activity/Vol] 15 U/L Normal 15-37 [facility] Comment on above: Performed By: #### S ELNIUM #### [facility] [address] [address] [address] Prince Olivas Bilirubin [Mass/Vol] 0.7 mg/dL Normal 0.2-1.0 [facility] Comment on above: Performed By: #### S ELNIUM #### [facility] [address] [address] [address] Prince Olivas Calcium [Mass/Vol] 9.4 mg/dL Normal 8.5-10.1 [facility] Comment on above: Performed By: #### S ELNIUM #### [facility] [address] [address] [address] Prince Olivas Chloride [Moles/Vol] 104 mmol/L Normal 98-107 [facility] Comment on above: Performed By: #### S ELNIUM #### [facility] [address] [address] [address] Prince Olivas CO2 [Moles/Vol] 20.8 mmol/L Critically low 21.0-32.0 [facility] Comment on above: Performed By: #### S ELNIUM #### [facility] [address] [address] [address] Prince Olivas Creatinine [Mass/Vol] 0.96 mg/dL Normal 0.55-1.02 [facility] Comment on above: Performed By: #### S ELNIUM #### [facility] [address] [address] [address] Prince Olivas EGFR-AF HUNGARIAN >60 Normal >=60 [facility] Comment on above: Performed By: #### S ELNIUM #### [facility] [address] [address] [address] Prince Olivas EGFR-NON AF HUNGARIAN >60 Normal >=60 [facility] Comment on above: Performed By: #### S ELNIUM #### [facility] [address] [place] [address] Dr. Prince Olivas Globulin (S) [Mass/Vol] 2.6 g/dL Normal [facility] Comment on above: Performed By: #### S ELNIUM #### [facility] [address] [place] [address] Dr. Prince Olivas Glucose [Mass/Vol] 104 mg/dL Normal 74-[address] [facility] Comment on above: Performed By: #### S ELNIUM #### [facility] [address] [place] [address] Dr. Prince Olivas Potassium [Moles/Vol] 3.5 mmol/L Normal 3.5-5.1 [facility] Comment on above: Performed By: #### S ELNIUM #### [facility] [address] [place] [address] Dr. Prince Olivas Protein [Mass/Vol] 6.7 g/dL Normal 6.4-8.[address] [facility] Comment on above: Performed By: #### S ELNIUM #### [facility] [address] [place] [address] Dr. Prince Olivas Sodium [Moles/Vol] 139 mmol/L Normal 136-[address] [facility] Comment on above: Performed By: #### S ELNIUM #### [facility] [address] [address] [address] Prince Olivas Urea nitrogen [Mass/Vol] 10.0 mg/dL Normal 7.0-18.0 [facility] Comment on above: Performed By: #### S SKYLER #### [facility] [address] [place] [address] Dr. Prince Olivas Urea nitrogen/Creatinine [Mass ratio] 10.4 mg/mg Normal [facility] Comment on above: Performed By: #### S SKYLER #### [facility] [address] [place] [address] Dr. Prince Olivas XR ABD FLAT UP_PA Arnold 11-14 XR ABD FLAT UP_PA CH EXAM: XR ABD FLAT UP_PA CH HISTORY: CHEST PAIN, UNSPECIFIED COMPARISON: 05/22/2020. TECHNIQUE: Single view of the chest and 2 views of the abdomen. FINDINGS: Chronic pulmonary hyperinflation. Cardiomediastinal silhouette and pulmonary vascularity are within normal limits. The lungs and the costophrenic angles are clear. Bowel gas pattern is unremarkable. No abnormal calcifications within the abdomen or the pelvis. Prior cholecystectomy. S-shaped scoliotic curvature of the thoracolumbar spine. IMPRESSION: 1. COPD. No acute cardiopulmonary disease. 2. Unremarkable bowel gas pattern. Electronically authenticated by: CHITRA ALFARO Date: 2021-11-14 18:10 Normal [facility] CBC AUTO DIFFon 11-09-2021 BASO # 0.0 103/ul Normal 0.0-0.1 [facility] Comment on above: Performed By: #### S SKYLER #### [facility] [address] [place] [address] Dr. Prince Olivas Basophils/100 WBC (Bld) 0.3 % Normal 0.2-2.0 [facility] Comment on above: Performed By: #### S ELVETOUM #### [facility] [address] [place] [address] Dr. Prince Olivas EO # 0.0 103/ul Normal 0.0-0.7 [facility] Comment on above: Performed By: #### S SKYLER #### [facility] [address] [address] [address] Prince Olivas Eosinophils/100 WBC (Bld) 0.3 % Critically low 0.9-7.0 [facility] Comment on above: Performed By: #### S ELNIUM #### [facility] [address] [place] [address] Dr. Prince Olivas Erythrocyte distribution width (RBC) [Ratio] 13.1 % Normal 11.0-15.0 [facility] Comment on above: Performed By: #### S ELNIUM #### [facility] [address] [place] [address] Dr. Prince Olivas Hematocrit (Bld) [Volume fraction] 46.8 % Normal 36.0-48.0 [facility] Comment on above: Performed By: #### S ELNIUM #### [facility] [address] [place] [address] Dr. Prince Olivas Hemoglobin (Bld) [Mass/Vol] 15.8 g/dL Normal 12.0-16.0 [facility] Comment on above: Performed By: #### S ELNIUM #### [facility] [address] [place] [address] Dr. Prince Olivas IG # 0.03 10e3/ul Normal 0.00-0.03 [facility] Comment on above: Performed By: #### S ELNIUM #### [facility] [address] [place] [address] Dr. Prince Olvias IG % 0.3 % Normal 0.0-0.5 [facility] Comment on above: Performed By: #### S ELNIUM #### [facility] [address] [place] [address] Dr. Prince Olivas LYMPH # 2.9 103/ul Normal 1.2-3.8 [facility] Comment on above: Performed By: #### S ELNIUM #### [facility] [address] [place] [address] Dr. Prince Olivas Lymphocytes/100 WBC (Bld) 31.7 % Normal 20.5-60.0 [facility] Comment on above: Performed By: #### S ELNIUM #### [facility] [address] [address] [address] Prince Olivas MANUAL DIFF REQ NO Normal [facility] Comment on above: Performed By: #### S ELNIUM #### [facility] [address] [place] [address] Dr. Prince Olivas MCH (RBC) [Entitic mass] 31.9 pg Normal 26.7-34.0 [facility] Comment on above: Performed By: #### S ELNIUM #### [facility] [address] [place] [address] Dr. Prince Olivas MCHC (RBC) [Mass/Vol] 33.8 g/dL Normal 29.9-35.2 [facility] Comment on above: Performed By: #### S ELNIUM #### [facility] [address] [place] [address] Dr. Prince Olivas MCV (RBC) [Entitic vol] 94.5 fL Normal 81.0-99.0 [facility] Comment on above: Performed By: #### S ELNIUM #### [facility] [address] [place] [address] Dr. Prince Olivas MONO # 0.5 103/ul Normal 0.3-0.8 [facility] Comment on above: Performed By: #### S ELNIUM #### [facility] [address] [place] [address] Dr. Prince Olivas Monocytes/100 WBC (Bld) 5.2 % Normal 1.7-12.0 [facility] Comment on above: Performed By: #### S ELNIUM #### [facility] [address] [place] [address] Dr. Prince Olivas NEUT # 5.8 103/ul Normal 1.4-6.5 [facility] Comment on above: Performed By: #### S ELNIUM #### [facility] [address] [place] [address] Dr. Prince Olivas Neutrophils/100 WBC (Bld) 62.2 % Normal 43.0-75.0 [facility] Comment on above: Performed By: #### S ELNIUM #### [facility] [address] [address] [address] Prince Olivas Platelet mean volume (Bld) [Entitic vol] 11.1 fL Normal 9.5-13.5 [facility] Comment on above: Performed By: #### S ELNIUM #### [facility] [address] [place] [address] Dr. Prince Olivas PLT 218 103/ul Normal 150-450 [facility] Comment on above: Performed By: #### S ELNIUM #### [facility] [address] [address] [address] Prince Olivas RBC 4.95 106/ul Normal 4.20-5.40 [facility] Comment on above: Performed By: #### S ELNIUM #### [facility] [address] [place] [address] Dr. Prince Olivas WBC 9.3 103/ul Normal 4.0-11.0 [facility] Comment on above: Performed By: #### S ELNIUM #### [facility] [address] [place] [address] Dr. Prince Olivas PROF CHEM 8 (BAS METB)on Anion gap [Moles/Vol] 14.8 mmol/L Normal [facility] Comment on above: Performed By: #### C OPPER #### [facility] [address] [place] [address] Dr. Prince Olivas Calcium [Mass/Vol] 9.3 mg/dL Normal 8.5-10.1 [facility] Comment on above: Performed By: #### C OPPER #### [facility] [address] [place] [address] Dr. Prince Olivas Chloride [Moles/Vol] 105 mmol/L Normal 98-107 [facility] Comment on above: Performed By: #### C OPPER #### [facility] [address] [place] [address] Dr. Prince Olivas CO2 [Moles/Vol] 23.7 mmol/L Normal 21.0-32.0 [facility] Comment on above: Performed By: #### C OPPER #### [facility] [address] [address] [address] Prince Olivas Creatinine [Mass/Vol] 0.95 mg/dL Normal 0.55-1.02 [facility] Comment on above: Performed By: #### C OPPER #### [facility] [address] [address] [address] Prince Olivas EGFR-AF HUNGARIAN >60 Normal >=60 [facility] Comment on above: Performed By: #### C OPPER #### [facility] [address] [address] [address] Prince Olivas EGFR-NON AF HUNGARIAN >60 Normal >=60 [facility] Comment on above: Performed By: #### C OPPER #### [facility] [address] [address] [address] Prince Olivas Glucose [Mass/Vol] 103 mg/dL Normal 74-106 [facility] Comment on above: Performed By: #### C OPPER #### [facility] [address] [address] [address] Prince Olivas Potassium [Moles/Vol] 3.5 mmol/L Normal 3.5-5.1 [facility] Comment on above: Performed By: #### C OPPER #### [facility] [address] [address] [address] Prince Olivas Sodium [Moles/Vol] 140 mmol/L Normal 136-[address] [facility] Comment on above: Performed By: #### C OPPER #### [facility] [address] [address] [address] Prince Olivas Urea nitrogen [Mass/Vol] 7.0 mg/dL Normal 7.0-18.0 [facility] Comment on above: Performed By: #### C OPPER #### [facility] [address] [address] [address] Prince Olivas Urea nitrogen/Creatinine [Mass ratio] 7.4 mg/mg Normal [facility] Comment on above: Performed By: #### C OPPER #### [facility] [address] [address] [address] Prince Olivas TROPONIN, HIGH SENSITIVITYon 11-09-2021 HSTROP 4.3 pg/mL Normal 4.0-51.3 [facility] Comment on above: Result Comment: CUT- OFF POINTS HAVE BEEN ESTABLISHED BASED ON THE FOURTH UNIVERSAL DEFINITIONS OF MYOCARDIAL INFARCTION. THE UPPER REFERENCE LIMIT (URL) OF TROPONIN, DEFINED THE 99TH PERCENTILE OF cTnI DISTRIBUTION IN A REFERENCE POPULATION, HAS BEEN CONFIRMED THE DECISION THRESHOLD FOR IN DIAGNOSIS. Performed By: #### C OPPER #### [facility] [address] [address] [address] Prince Olivas XR CHEST 1 Von 11-09-2021 XR CHEST 1 V EXAM: XR CHEST 1 V a t 1629 hours HISTORY: CHEST PAIN, UNSPECIFIED COMPARISON: 10/04/2021 TECHNIQUE: AP upright portable chest x-ray FINDINGS: The heart is not enlarged and the vasculature is not distended. No acute infiltrate, effusion or pneumothorax is identified. Scoliosis of the spine is noted. IMPRESSION: No acute infiltrate or evidence of cardiac decompensation. The overall appearance of the chest is unchanged. Electronically authenticated by: BELEN REGAN Date: 2021-11-09 17:05 Normal [facility] CARDIAC SIMA ADMITon 022 CK [Catalytic activity/Vol] 62 U/L Normal 26-192 [facility] Comment on above: Performed By: #### M MA2 #### [facility] [address] [address] [address] Prince Olivas CK.MB [Mass/Vol] 0.37 ng/mL Normal <=3.60 [facility] Comment on above: Performed By: #### M MA2 #### [facility] [address] [address] [address] Prince Olivas HSTROP 3.5 pg/mL Critically low 4.0-51.3 [facility] Comment on above: Result Comment: CUT- OFF POINTS HAVE BEEN ESTABLISHED BASED ON THE FOURTH UNIVERSAL DEFINITIONS OF MYOCARDIAL INFARCTION. THE UPPER REFERENCE LIMIT (URL) OF TROPONIN, DEFINED THE 99TH PERCENTILE OF cTnI DISTRIBUTION IN A REFERENCE POPULATION, HAS BEEN CONFIRMED THE DECISION THRESHOLD FOR IN DIAGNOSIS. Performed By: #### M MA2 #### [facility] [address] [place] [address] Dr. Prince Olivas JENNIEFR 40 ng/mL Normal 9-82 [facility] Comment on above: Performed By: #### M MA2 #### [facility] [address] [place] [address] Dr. Prince Olivas CBC AUTO DIFFon 10-04-2021 BASO # 0.0 103/ul Normal 0.0-0.1 [facility] Comment on above: Performed By: #### C BC #### [facility] [address] [place] [address] Dr. Prince Olivas Basophils/100 WBC (Bld) 0.6 % Normal 0.2-2.0 [facility] Comment on above: Performed By: #### C BC #### [facility] [address] [place] [address] Dr. Prince Olivas EO # 0.3 103/ul Normal 0.0-0.7 [facility] Comment on above: Performed By: #### C BC #### [facility] [address] [place] [address] Dr. Prince Olivas Eosinophils/100 WBC (Bld) 3.7 % Normal 0.9-7.0 [facility] Comment on above: Performed By: #### C BC #### [facility] [address] [place] [address] Dr. Prince Olivas Erythrocyte distribution width (RBC) [Ratio] 13.4 % Normal 11.0-15.0 [facility] Comment on above: Performed By: #### C BC #### [facility] [address] [place] [address] Dr. Prince Olivas Hematocrit (Bld) [Volume fraction] 42.8 % Normal 36.0-48.0 [facility] Comment on above: Performed By: #### C BC #### [facility] [address] [place] [address] Dr. Prince Olvias Hemoglobin (Bld) [Mass/Vol] 14.1 g/dL Normal 12.0-16.0 [facility] Comment on above: Performed By: #### C BC #### [facility] [address] [place] [address] Dr. Prince Olivas IG # 0.02 10e3/ul Normal 0.00-0.03 [facility] Comment on above: Performed By: #### C BC #### [facility] [address] [place] [address] Dr. Prince Olivas IG % 0.3 % Normal 0.0-0.5 [facility] Comment on above: Performed By: #### C BC #### [facility] [address] [place] [address] Dr. Prince Olivas LYMPH # 2.0 103/ul Normal 1.2-3.8 [facility] Comment on above: Performed By: #### C BC #### [facility] [address] [place] [address] Dr. Prince Olivas Lymphocytes/100 WBC (Bld) 27.6 % Normal 20.5-60.0 [facility] Comment on above: Performed By: #### C BC #### [facility] [address] [place] [address] Dr. Prince Olivas MANUAL DIFF REQ NO Normal [facility] Comment on above: Performed By: #### C BC #### [facility] [address] [place] [address] Dr. Prince Olivas MCH (RBC) [Entitic mass] 31.4 pg Normal 26.7-34.0 [facility] Comment on above: Performed By: #### C BC #### [facility] [address] [place] [address] Dr. Prince Olivas MCHC (RBC) [Mass/Vol] 32.9 g/dL Normal 29.9-35.2 [facility] Comment on above: Performed By: #### C BC #### [facility] [address] [place] [address] Dr. Prince Olivas MCV (RBC) [Entitic vol] 95.3 fL Normal 81.0-99.0 [facility] Comment on above: Performed By: #### C BC #### [facility] [address] [place] [address] Dr. Prince Olivas MONO # 0.6 103/ul Normal 0.3-0.8 [facility] Comment on above: Performed By: #### C BC #### [facility] [address] [place] [address] Dr. Prince Olivas Monocytes/100 WBC (Bld) 8.2 % Normal 1.7-12.0 [facility] Comment on above: Performed By: #### C BC #### [facility] [address] [place] [address] Dr. Prince Olivas NEUT # 4.2 103/ul Normal 1.4-6.5 [facility] Comment on above: Performed By: #### C BC #### [facility] [address] [place] [address] Dr. Prince Olivas Neutrophils/100 WBC (Bld) 59.6 % Normal 43.0-75.0 [facility] Comment on above: Performed By: #### C BC #### [facility] [address] [place] [address] Dr. Prince Olivas Platelet mean volume (Bld) [Entitic vol] 11.1 fL Normal 9.5-13.5 [facility] Comment on above: Performed By: #### C BC #### [facility] [address] [place] [address] Dr. Prince Olivas PLT 194 103/ul Normal 150-450 [facility] Comment on above: Performed By: #### C BC #### [facility] [address] [place] [address] Dr. Prince Olivas RBC 4.49 106/ul Normal 4.20-5.40 [facility] Comment on above: Performed By: #### C BC #### [facility] [address] [place] [address] Dr. Prince Olivas WBC 7.1 103/ul Normal 4.0-11.0 [facility] Comment on above: Performed By: #### C BC #### [facility] [address] [place] [address] Dr. Prince Olivas PROF 14(COMP METB)on 022 Albumin [Mass/Vol] 3.9 g/dL Normal 3.4-5.0 [facility] Comment on above: Performed By: #### M MA2 #### [facility] [address] [place] [address] Dr. Prince Olivas Albumin/Globulin [Mass ratio] 1.4 {ratio} Normal [facility] Comment on above: Performed By: #### M MA2 #### [facility] [address] [address] [address] Prince Olivas ALP [Catalytic activity/Vol] 71 U/L Normal 46-116 [facility] Comment on above: Performed By: #### M MA2 #### [facility] [address] [place] [address] Dr. Prince Olivas ALT [Catalytic activity/Vol] 18 U/L Normal 14-59 [facility] Comment on above: Performed By: #### Marine CAMPBELL2 #### [facility] [address] [place] [address] Dr. Prince Olivas Anion gap [Moles/Vol] 10.1 mmol/L Normal [facility] Comment on above: Performed By: #### Marine CAMPBELL2 #### [facility] [address] [place] [address] Dr. Prince Olivas AST [Catalytic activity/Vol] 11 U/L Critically low 15-37 [facility] Comment on above: Performed By: #### Marine CAMPBELL2 #### [facility] [address] [place] [address] Dr. Prince Olivas Bilirubin [Mass/Vol] 0.4 mg/dL Normal 0.2-1.0 [facility] Comment on above: Performed By: #### M MA2 #### [facility] [address] [place] [address] Dr. Prince Olivas Calcium [Mass/Vol] 8.8 mg/dL Normal 8.5-10.[address] [facility] Comment on above: Performed By: #### Marine MA2 #### [facility] [address] [place] [address] Dr. Prince Olivas Chloride [Moles/Vol] 105 mmol/L Normal 98-107 [facility] Comment on above: Performed By: #### M MA2 #### [facility] [address] [address] [address] Prince Olivas CO2 [Moles/Vol] 27.0 mmol/L Normal 21.0-32.0 [facility] Comment on above: Performed By: #### M MA2 #### [facility] [address] [address] [address] Prince Olivas Creatinine [Mass/Vol] 0.67 mg/dL Normal 0.55-1.02 [facility] Comment on above: Performed By: #### M MA2 #### [facility] [address] [place] [address] Dr. Prince Olivas EGFR-AF HUNGARIAN >60 Normal >=60 [facility] Comment on above: Performed By: #### M MA2 #### [facility] [address] [address] [address] Prince Olivas EGFR-NON AF HUNGARIAN >60 Normal >=60 [facility] Comment on above: Performed By: #### M MA2 #### [facility] [address] [address] [address] Prince Olivas Globulin (S) [Mass/Vol] 2.7 g/dL Normal [facility] Comment on above: Performed By: #### M MA2 #### [facility] [address] [address] [address] Prince Olivas Glucose [Mass/Vol] 105 mg/dL Normal 74-[address] [facility] Comment on above: Performed By: #### M MA2 #### [facility] [address] [address] [address] Prince Olivas Potassium [Moles/Vol] 4.1 mmol/L Normal 3.5-5.1 [facility] Comment on above: Performed By: #### M MA2 #### [facility] [address] [place] [address] Dr. Prince Olivas Protein [Mass/Vol] 6.6 g/dL Normal 6.4-8.[address] [facility] Comment on above: Performed By: #### M MA2 #### [facility] [address] [address] [address] Prince Olivas Sodium [Moles/Vol] 138 mmol/L Normal 136-[address] [facility] Comment on above: Performed By: #### M MA2 #### [facility] [address] [address] [address] Prince Olivas Urea nitrogen [Mass/Vol] 7.0 mg/dL Normal 7.0-18.0 [facility] Comment on above: Performed By: #### M MA2 #### [facility] [address] [address] [address] Prince Olivas Urea nitrogen/Creatinine [Mass ratio] 10.4 mg/mg Normal [facility] Comment on above: Performed By: #### M MA2 #### [facility] [address] [address] [address] Prince Olivas XR CHEST 1 Von 10-04-2021 XR CHEST 1 V EXAM: Portable chest REASON FOR EXAM: Chest pain. TECHNIQUE: A portable frontal view of the chest was obtained. COMPARISON: 05/22/2020. FINDINGS: The lungs are well-inflated and clear. The heart and mediastinum are normal. There is no mass or pathologic adenopathy. Osseous structures are stable in appearance. IMPRESSION: No acute cardiopulmonary process. Electronically authenticated by: BARBI HENRY Date: 2021-10-04 10:58 Normal [facility] PROLACTINon 09-26-2021 Prolactin 149.0 ng/mL Critically high 4.8-23.3 [facility] Comment on above: Performed By: #### L IPID, CMP #### [facility] [address] [address] [address] Prince Olivas LIPID PROFILEon 09-25-2021 CHOL-HDL RATIO NORM SEE BELOW Normal [facility] Comment on above: Result Comment: 3.3 - 4.4 LOW RISK 4.4 - 7.1 AVERAGE RISK 7.1 - 11.0 MODERATE RISK >11.0 HIGH RISK Performed By: #### L IPID, CMP #### [facility] [address] [address] [address] Prince Olivas Cholesterol [Mass/Vol] 205 mg/dL Critically high <=200 [facility] Comment on above: Performed By: #### L IPID, CMP #### [facility] [address] [address] [address] Prince Olivas Cholesterol in HDL [Mass/Vol] 46 mg/dL Normal 40-60 [facility] Comment on above: Performed By: #### L IPID, CMP #### [facility] [address] [address] [address] Prince Olivas Cholesterol in LDL [Mass/Vol] 148.6 mg/dL Normal [facility] Comment on above: Performed By: #### L IPID, CMP #### [facility] [address] [address] [address] Prince Olivas Cholesterol.total/Ch olesterol in HDL [Mass ratio] 4.5 {ratio} Normal [facility] Comment on above: Performed By: #### L IPID, CMP #### [facility] [address] [address] [address] Prince Olivas HDL NORMAL > or = 60 mg/dl - LO W CARDIOVASCULAR RISK <40 mg/dl - HIGH CARDIOVASCULAR RISK Normal [facility] Comment on above: Performed By: #### L IPID, CMP #### [facility] [address] [address] [address] Prince Olivas LDL CALC NORMAL SEE BELOW Normal [facility] Comment on above: Result Comment: <100 mg/dl OPTIMAL 100 - 129 mg/dl NEAR OR ABOVE OPTIMAL 130 - 159 mg/dl BORDERLINE HIGH 160 - 189 mg/dl HIGH >190 mg/dl VERY HIGH Performed By: #### L IPID, CMP #### [facility] [address] [address] [address] Prince Olivas Triglyceride [Mass/Vol] 52 mg/dL Normal <=150 [facility] Comment on above: Performed By: #### L IPID, CMP #### [facility] [address] [address] [address] Prince Olivas VLDL CALC 10.4 mg/dL Normal [facility] Comment on above: Performed By: #### L IPID, CMP #### [facility] [address] [address] [address] Prince Olivas PROF 14(COMP METB)on 022 Albumin [Mass/Vol] 3.7 g/dL Normal 3.4-5.0 [facility] Comment on above: Performed By: #### L IPID, CMP #### [facility] [address] [address] [address] Prince Olivas Albumin/Globulin [Mass ratio] 1.5 {ratio} Normal [facility] Comment on above: Performed By: #### L IPID, CMP #### [facility] [address] [place] [address] Dr. Prince Olivas ALP [Catalytic activity/Vol] 66 U/L Normal 46-116 [facility] Comment on above: Performed By: #### L IPID, CMP #### [facility] [address] [place] [address] Dr. Prince Olivas ALT [Catalytic activity/Vol] 14 U/L Normal 14-59 [facility] Comment on above: Performed By: #### L IPID, CMP #### [facility] [address] [place] [address] Dr. Prince Olivas Anion gap [Moles/Vol] 13.8 mmol/L Normal [facility] Comment on above: Performed By: #### L IPID, CMP #### [facility] [address] [place] [address] Dr. Prince Olivas AST [Catalytic activity/Vol] 10 U/L Critically low 15-37 [facility] Comment on above: Performed By: #### L IPID, CMP #### [facility] [address] [place] [address] Dr. Prince Olivas Bilirubin [Mass/Vol] 0.3 mg/dL Normal 0.2-1.0 [facility] Comment on above: Performed By: #### L IPID, CMP #### [facility] [address] [place] [address] Dr. Prince Olivas Calcium [Mass/Vol] 8.9 mg/dL Normal 8.5-10.1 [facility] Comment on above: Performed By: #### L IPID, CMP #### [facility] [address] [place] [address] Dr. Prince Olivas Chloride [Moles/Vol] 106 mmol/L Normal 98-107 [facility] Comment on above: Performed By: #### L IPID, CMP #### [facility] [address] [place] [address] Dr. Prince Olivas CO2 [Moles/Vol] 24.0 mmol/L Normal 21.0-32.0 [facility] Comment on above: Performed By: #### L IPID, CMP #### [facility] [address] [place] [address] Dr. Prince Olivas Creatinine [Mass/Vol] 1.05 mg/dL Critically high 0.55-1.02 [facility] Comment on above: Performed By: #### L IPID, CMP #### [facility] [address] [place] [address] Dr. Prince Olivas EGFR-AF HUNGARIAN >60 Normal >=60 [facility] Comment on above: Performed By: #### L IPID, CMP #### [facility] [address] [place] [address] Dr. Prince Olivas EGFR-NON AF HUNGARIAN 55 mL/min/1.73m2 Critically low >=60 [facility] Comment on above: Performed By: #### L IPID, CMP #### [facility] [address] [place] [address] Dr. Prince Olivas Globulin (S) [Mass/Vol] 2.5 g/dL Normal [facility] Comment on above: Performed By: #### L IPID, CMP #### [facility] [address] [place] [address] Dr. Prince Olivas Glucose [Mass/Vol] 107 mg/dL Critically high 74-106 [facility] Comment on above: Performed By: #### L IPID, CMP #### [facility] [address] [place] [address] Dr. Prince Olivas Potassium [Moles/Vol] 3.8 mmol/L Normal 3.5-5.1 [facility] Comment on above: Performed By: #### L IPID, CMP #### [facility] [address] [address] [address] Prince Olivas Protein [Mass/Vol] 6.2 g/dL Critically low 6.4-8.2 Th e [facility] Comment on above: Performed By: #### L IPID, CMP #### [facility] [address] [address] [address] Prince Olivas Sodium [Moles/Vol] 140 mmol/L Normal 136-145 [facility] Comment on above: Performed By: #### L IPID, CMP #### [facility] [address] [place] [address] Dr. Prince Olivas Urea nitrogen [Mass/Vol] 10.0 mg/dL Normal 7.0-18.0 [facility] Comment on above: Performed By: #### L IPID, CMP #### [facility] [address] [place] [address] Dr. Prince Olivas Urea nitrogen/Creatinine [Mass ratio] 9.5 mg/mg Normal [facility] Comment on above: Performed By: #### L IPID, CMP #### [facility] [address] [place] [address] Dr. Prince Olivas Vital Signs Date Time Vital Sign Value Performing Clinician Faci lity 04-04-2022 15:50-0500 Diastolic blood pressure 70 mm[Hg] Tiffani Morales MD Work Phone: [facility] 04-04-2022 15:50-0500 Heart rate 73 /min Tiffani Morales MD Work Phone: [facility] 04-04-2022 15:50-0500 Respiratory rate 16 /min Tiffani Morales MD Work Phone: [facility] 04-04-2022 15:50-0500 SaO2% (BldA) [Mass fraction] 97 % Tiffani Morales MD Work Phone: [facility] 04-04-2022 15:50-0500 Systolic blood pressure 117 mm[Hg] Tiffani Morales MD Work Phone: [facility] 04-04-2022 15:26-0500 Body temperature 97.2 [degF] Tiffani Morales MD Work Phone: [facility] 04-04-2022 12:51-0500 Body height 172.7 cm Tiffani Morales MD Work Phone: [facility] 04-04-2022 12:51-0500 Body weight 45.81 kg Tiffani Morales MD Work Phone: [facility] 01-01-2022 16:50-0400 Diastolic blood pressure 69 mm[Hg] Tiffani Morales MD Work Phone: [facility] 01-01-2022 16:50-0400 Heart rate 69 /min Tiffani Morales MD Work Phone: [facility] 01-01-2022 16:50-0400 Respiratory rate 16 /min Tiffani Morales MD Work Phone: [facility] 01-01-2022 16:50-0400 SaO2% (BldA) [Mass fraction] 95 % Tiffani Morales MD Work Phone: [facility] 01-01-2022 16:50-0400 Systolic blood pressure 110 mm[Hg] Tiffani Morales MD Work Phone: [facility] 01-01-2022 16:33-0400 Body temperature 98.1 [degF] Tiffani Morales MD Work Phone: [facility] 01-01-2022 15:39-0400 Body height 172.7 cm Tiffani Morales MD Work Phone: [facility] 01-01-2022 15:39-0400 Body weight 45.81 kg Tiffani Morales MD Work Phone: [facility] 06-20-2021 13:37-0400 Body height 174 cm Robb Evans MD Work Phone: [facility] 06-20-2021 13:37-0400 Body mass index (BMI) [Ratio] 17.98 kg/m2 Robb Evans MD Work Phone: [facility] 06-20-2021 13:37-0400 Body weight 54.43 kg Robb Evans MD Work Phone: [facility] 06-20-2021 13:37-0400 Diastolic blood pressure 69 mm[Hg] Robb Evans MD Work Phone: [facility] 06-20-2021 13:37-0400 Heart rate 77 /min Robb Evans MD Work Phone: [facility] 06-20-2021 13:37-0400 Respiratory rate 16 /min Robb Evans MD Work Phone: [facility] 06-20-2021 13:37-0400 SaO2% (BldA) [Mass fraction] 95 % Robb Evans MD Work Phone: [facility] 06-20-2021 13:37-0400 Systolic blood pressure 102 mm[Hg] Robb Evans MD Work Phone: [facility] 07-18-2020 14:10-0400 Body height 174 cm Robb Evans MD Work Phone: [facility] 07-18-2020 14:10-0400 Body mass index (BMI) [Ratio] 17.38 kg/m2 Robb Evans MD Work Phone: [facility] 07-18-2020 14:10-0400 Body weight 52.62 kg Robb Evans MD Work Phone: [facility] 07-18-2020 14:10-0400 Diastolic blood pressure 68 mm[Hg] Robb Evans MD Work Phone: [facility] 07-18-2020 14:10-0400 Heart rate 84 /min Robb Evans MD Work Phone: [facility] 07-18-2020 14:10-0400 Respiratory rate 16 /min Robb Evans MD Work Phone: [facility] 07-18-2020 14:100400 SaO2% (BldA) [Mass fraction] 96 % Robb Evans MD Work Phone: [facility] 07-18-2020 14:100400 Systolic blood pressure 94 mm[Hg] Robb Evans MD Work Phone: [facility] Encounters Encounter Date Encounter Type Care Provider Facility Start: 05-08-2022 Telephone encounter Tiffani valencia MD Work Phone: Gastroenterology Comment on above: Patient Question Start: 05-07-2022 End: 05-08-2022 ambulatory IRINA SEGURA Facility: Start: 04-24-2022 End: 04-24-2022 [facility] Start: 04-24-2022 End: 04-24-2022 Nutrition therapy Tiffani Morales MD Work Phone: Gastroenterology Comment on above: Severe malnutrition (HCC) (Primary Dx) Start: 04-24-2022 End: 04-24-2022 Telemedicine consultation with patient Tiffani Morales MD Work Phone: [facility] Start: 04-20-2022 Refill Robb Evans MD Work Phone: [facility] Start: 04-12-2022 Refill Saúl SHORT 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 Start: 03-14-2022 Refill Anastasiya Davidi PA-C Work Phone: Gastroenterology Comment on above: Refill Request Start: 03-09-2022 Refill Gokul Maurilio CAMPBELL [facility] Comment on above: Generalized anxiety disorder Start: 03-01-2022 End: 03-01-2022 [facility] Start: 03-01-2022 End: 03-01-2022 Nutrition therapy Tiffani Morales MD Work Phone: Gastroenterology Comment on above: Severe protein-calor ie malnutrition (HCC) (Primary Dx); 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); Weight loss; Severe malnutrition (HCC) Start: 03-01-2022 End: 03-01-2022 Telemedicine consultation with patient Tiffani Morales MD Work Phone: [facility] Start: 02-07-2022 ambulatory Yan wood MD Work Phone: Gastroenterology Start: 02-07-2022 Patient encounter procedure Yan Garcia Jr., MD Work Phone: [facility] Start: 02-07-2022 Refill Anastasiya Davidi PA-C Work Phone: Gastroenterology Comment on above: Refill Request Start: 02-06-2022 End: 02-07-2022 ambulatory CRISTINA ALEE IQBAL Facility:[facility] Start: 02-05-2022 End: 02-05-2022 ambulatory [facility] Start: 01-29-2022 ambulatory Dolores Lopez RN Gastr oenterology Start: 01-29-2022 Patient encounter procedure Dolores Lopez RN [facility] Start: 01-29-2022 End: 01-29-2022 Subsequent hospital visit by physician Maegan Work Phone: Gastroenterology Comment on above: Arrived Start: 01-17-2022 ambulatory Roshni Srini Reyes ty:RadhaSeth Start: 01-16-2022 Refill Gokul Maurilio [facility] Start: 01-05-2022 Telephone encounter Anastasiya kimbrough PA-C Work Phone: Gastroenterology Comment on above: Patient Question; Re turning Patient's Call; Results Nausea (Primary Dx); Weight loss; Small bowel polyp Results (Post-EGD) Start: 01-03-2022 Telephone encounter Anastasiya kimbrough PA-C Work Phone: Gastroenterology Comment on above: Results Start: 01-02-2022 Telephone encounter Anastasiya kimbrough PA-C Work Phone: [facility] Comment on above: Results Start: 01-01-2022 End: 01-01-2022 ambulatory KIRSTEN Milligan SJSrini Facility:[facility] Start: 01-01-2022 End: 01-01-2022 Subsequent hospital visit by physician Tiffani Morales MD Work Phone: Gastroenterology Comment on above: Nausea and vomiting, unspecified vomiting type [R11.2] Start: 12-25-2021 Telephone encounter Rima Gerard RNcomputer applications developer Comment on above: Appointment Start: 12-19-2021 End: 12-19-2021 ambulatory CRISTINA IQBAL [facility] Start: 12-15-2021 End: 12-16-2021 ambulatory Anastasiya Mosqueda PA-C Work Phone: Gastroenterology Comment on above: Nausea and vomiting, unspecified vomiting type (Primary Dx); Left upper quadrant abdominal pain; Weight loss Start: 12-15-2021 End: 12-15-2021 Telemedicine consultation with patient Anastasiya Mosqueda PA-C Work Phone: [facility] Start: 12-14-2021 End: 12-14-2021 ambulatory ANASTASIYA MOSQUEDA Facility:[facility] Start: 12-14-2021 End: 12-14-2021 Patient encounter procedure Anastasiya Mosqueda PA-C Work Phone: Gastroenterology Comment on above: APPOINTMENT CANCELLE D (Primary Dx) Start: 12-14-2021 End: 12-14-2021 Telemedicine consultation with patient Anastasiya Mosqueda PA-C Work Phone: [facility] Start: 12-13-2021 Telephone encounter Anastasiya kimbrough PA-C Work Phone: Gastroenterology Comment on above: Appointment Start: 12-11-2021 End: 12-11-2021 ambulatory CLINICAL PHARMACOLOGIST CRISTINA RCSalomeMARYAMBoyd Facility:[facility] Start: 12-03-2021 End: 12-03-2021 Emergency department patient visit Vipin Chitra Facility:[facility] Start: 11-14-2021 End: 11-14-2021 ambulatory CLINICAL PHARMACOLOGIST CRISTINA RCSalomeMARYAMBoyd Facility:[facility] Start: 11-09-2021 End: 11-09-2021 ambulatory CLINICAL PHARMACOLOGIST CRISTINA RCSalomeMARYAMZ Facility:[facility] Start: 10-04-2021 End: 10-04-2021 ambulatory CLINICAL PHARMACOLOGIST CRISTINA RCSalomeMARYAMZ Facility:[facility] Start: 10-03-2021 Refill Robb Evans MD Work Phone: [facility] Start: 09-27-2021 Documentation procedure Zuleyma Evans MD Work Phone: [facility] Start: 09-25-2021 End: 09-26-2021 ambulatory ROBB EVANS Facility:[facility] Start: 09-19-2021 End: 09-19-2021 [facility] Start: 09-19-2021 End: 09-19-2021 Office outpatient visit 25 minutes Robb Evans MD Work Phone: [facility] Comment on above: Bipolar 1 disorder, mixed, mild (HCC) (Primary Dx); Generalized anxiety disorder; Long-term use of high-risk medication Start: 09-15-2021 Refill Fartun Mack LPN [facility] Comment on above: Generalized anxiety disorder Start: 06-20-2021 End: 06-20-2021 [facility] Start: 06-20-2021 End: 06-20-2021 Office outpatient visit 25 minutes Robb Evans MD Work Phone: [facility] Comment on above: Generalized anxiety disorder (Primary Dx); Bipolar 1 disorder, mixed, mild (HCC); Long-term use of high-risk medication; Post traumatic stress disorder (PTSD) Start: 04-03-2021 Refill Gokul Maurilio MA [facility] Comment on above: Generalized anxiety disorder Start: 03-01-2021 End: 03-01-2021 Phys/qhp telephone evaluation 11-20 min Robb Evans MD Work Phone: [facility] Comment on above: Bipolar 1 disorder, mixed, mild (HCC) (Primary Dx); Generalized anxiety disorder; Long-term use of high-risk medication Start: 03-01-2021 End: 03-01-2021 [facility] Start: 01-31-2021 Refill Gokul Maurilio ADRIAN 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); Generalized anxiety disorder; Long-term use of high-risk medication Start: 07-18-2020 End: 07-18-2020 Office outpatient visit 25 minutes Robb Evans MD Work Phone: [facility] Comment on above: Generalized anxiety disorder (Primary Dx); Moderate mixed bipolar I disorder (HCC); Long-term use of high-risk medication Procedures Date Procedure Procedure Detail Performing Clinician Start: 04-04-2022 Endoscopy upper small intestine Tiffani Morales MD Work Phone: Start: 01-01-2022 Esophagogastroduodenoscopy transoral diagnostic Anastasiya Mosqueda PA-C Work Phone: Start: 05-08-2019 Colonoscopy Gokul Montoya MA Plan of Treatment Date Care Activity Detail Author Start: 05-08-2029 Screening for malign ant neoplasm of colon [facility] Start: 04-27-2022 End: 04-27-2022 Patient encounter procedure 04/27/2022 Office Visit Psychiatry Robb Evans MD [address] [facility] [address] [place], [place] [id number] [facility] Start: 03-26-2022 End: 03-26-2022 Patient encounter procedure 03/26/2022 Office Visit Psychiatry Robb Evans MD [address] [place] [address] [facility] Start: 03-18-2022 DEPRESSION ASSESSMENT DEPRESSION ASS [facility] Start: 03-02-2022 End: 03-01-2023 25-hydroxyvitamin D3 [Mass/volume] in Serum or Plasma VITAMIN D 25 HYDROXY Lab Routine Severe protein-calorie malnutrition (HCC) Expected: 03/02/2022 (Approximate), Expires: 03/01/2023 [facility] Work Phone: Comment on above: Expected: 03/02/2022 (Approximate), Expires: 03/01/2023 Start: 03-02-2022 End: 03-01-2023 Alpha tocopherol [Mass/volume] in Serum or Plasma VITAMIN E/TOCOPHEROL Lab Routine Severe protein-calorie malnutrition (HCC) Expected: 03/02/2022 (Approximate), Expires: 03/01/2023 [facility] Work Phone: Comment on above: Expected: 03/02/2022 (Approximate), Expires: 03/01/2023 Start: 03-02-2022 End: 03-01-2023 C reactive protein [Mass/volume] in Serum or Plasma C-REACTIVE PROTEIN (CRP) Lab Routine Severe protein-calorie malnutrition (HCC) Expected: 03/02/2022 (Approximate), Expires: 03/01/2023 [facility] Work Phone: Comment on above: Expected: 03/02/2022 (Approximate), Expires: 03/01/2023 Start: 03-02-2022 End: 03-01-2023 CBC W Auto Differential panel - Blood CBC + DIFF Lab Routine Severe protein-calorie malnutrition (HCC) Expected: 03/02/2022 (Approximate), Expires: 03/01/2023 [facility] Work Phone: Comment on above: Expected: 03/02/2022 (Approximate), Expires: 03/01/2023 Start: 03-02-2022 End: 03-01-2023 Cobalamin (Vitamin B12) [Mass/volume] in Serum or Plasma VITAMIN B12 BLOOD Lab Routine Severe protein-calorie malnutrition (HCC) Expected: 03/02/2022 (Approximate), Expires: 03/01/2023 [facility] Work Phone: Comment on above: Expected: 03/02/2022 (Approximate), Expires: 03/01/2023 Start: 03-02-2022 End: 03-01-2023 Comprehensive metabolic 2000 panel - Serum or Plasma COMP METABOLIC PANEL Lab Routine Severe protein-calorie malnutrition (HCC) Expected: 03/02/2022 (Approximate), Expires: 03/01/2023 [facility] Work Phone: Comment on above: Expected: 03/02/2022 (Approximate), Expires: 03/01/2023 Start: 03-02-2022 End: 03-01-2023 COPPER BLOOD COPPER BLOOD Lab Routine Severe protein-calorie malnutrition (HCC) Expected: 03/02/2022 (Approximate), Expires: 03/01/2023 [facility] Work Phone: Comment on above: Expected: 03/02/2022 (Approximate), Expires: 03/01/2023 Start: 03-02-2022 End: 03-01-2023 FATTY ACIDS PROFILE, ESSENTIAL FATTY ACIDS PROFILE, ESSENTIAL Lab Routine Severe protein-calorie malnutrition (HCC) Expected: 03/02/2022 (Approximate), Expires: 03/01/2023 [facility] Work Phone: Comment on above: Expected: 03/02/2022 (Approximate), Expires: 03/01/2023 Start: 03-02-2022 End: 03-01-2023 Ferritin [Mass/volume] in Serum or Plasma FERRITIN BLD Lab Routine Severe protein-calorie malnutrition (HCC) Expected: 03/02/2022 (Approximate), Expires: 03/01/2023 [facility] Work Phone: Comment on above: Expected: 03/02/2022 (Approximate), Expires: 03/01/2023 Start: 03-02-2022 End: 03-01-2023 Iron and Iron binding capacity panel - Serum or Plasma IRON + TIBC Lab Routine Severe protein-calorie malnutrition (HCC) Expected: 03/02/2022 (Approximate), Expires: 03/01/2023 [facility] Work Phone: Comment on above: Expected: 03/02/2022 (Approximate), Expires: 03/01/2023 Start: 03-02-2022 End: 03-01-2023 Magnesium [Mass/volume] in Serum or Plasma MAGNESIUM BLD Lab Routine Severe protein-calorie malnutrition (HCC) Expected: 03/02/2022 (Approximate), Expires: 03/01/2023 [facility] Work Phone: Comment on above: Expected: 03/02/2022 (Approximate), Expires: 03/01/2023 Start: 03-02-2022 End: 03-01-2023 Methylmalonate [Moles/volume] in Serum or Plasma METHYLMALONIC ACID Lab Routine Severe protein-calorie malnutrition (HCC) Expected: 03/02/2022 (Approximate), Expires: 03/01/2023 [facility] Work Phone: Comment on above: Expected: 03/02/2022 (Approximate), Expires: 03/01/2023 Start: 03-02-2022 End: 03-01-2023 Phosphate [Mass/volume] in Serum or Plasma PHOSPHORUS INORGANIC Lab Routine Severe protein-calorie malnutrition (HCC) Expected: 03/02/2022 (Approximate), Expires: 03/01/2023 [facility] Work Phone: Comment on above: Expected: 03/02/2022 (Approximate), Expires: 03/01/2023 Start: 03-02-2022 End: 03-01-2023 PT panel - Platelet poor plasma by Coagulation assay PROTHROMBIN TIME/PT Lab Routine Severe protein-calorie malnutrition (HCC) Expected: 03/02/2022 (Approximate), Expires: 03/01/2023 [facility] Work Phone: Comment on above: Expected: 03/02/2022 (Approximate), Expires: 03/01/2023 Start: 03-02-2022 End: 03-01-2023 RBC FOLATE RBC FOLATE Lab Routine Severe protein-calorie malnutrition (HCC) Expected: 03/02/2022 (Approximate), Expires: 03/01/2023 [facility] Work Phone: Comment on above: Expected: 03/02/2022 (Approximate), Expires: 03/01/2023 Start: 03-02-2022 End: 03-01-2023 Retinol [Mass/volume] in Serum or Plasma VITAMIN A/RETINOL Lab Routine Severe protein-calorie malnutrition (HCC) Expected: 03/02/2022 (Approximate), Expires: 03/01/2023 [facility] Work Phone: Comment on above: Expected: 03/02/2022 (Approximate), Expires: 03/01/2023 Start: 03-02-2022 End: 03-01-2023 Selenium [Mass/volume] in Blood SELENIUM BLOOD Lab Routine Severe protein-calorie malnutrition (HCC) Expected: 03/02/2022 (Approximate), Expires: 03/01/2023 [facility] Work Phone: Comment on above: Expected: 03/02/2022 (Approximate), Expires: 03/01/2023 Start: 03-02-2022 End: 03-01-2023 Triglyceride [Mass/volume] in Serum or Plasma TRIGLYCERIDES BLD Lab Routine Severe protein-calorie malnutrition (HCC) Expected: 03/02/2022 (Approximate), Expires: 03/01/2023 [facility] Work Phone: Comment on above: Expected: 03/02/2022 (Approximate), Expires: 03/01/2023 Start: 03-02-2022 End: 03-01-2023 Zinc [Mass/volume] in Serum or Plasma ZINC BLD Lab Routine Severe protein-calorie malnutrition (HCC) Expected: 03/02/2022 (Approximate), Expires: 03/01/2023 [facility] Work Phone: Comment on above: Expected: 03/02/2022 (Approximate), Expires: 03/01/2023 Start: 12-19-2021 End: 12-19-2021 Patient encounter procedure 12/19/2021 Office Visit Psychiatry Robb Evans MD [address] [facility] [address] [place] [id number] [facility] Start: 11-16-2021 Influenza vaccination [facility] Start: 09-19-2021 End: 09-19-2021 Patient encounter procedure 09/19/2021 Office Visit Robb Patton MD [address] [facility] [address] [place] [id number] [facility] Start: 09-15-2021 End: 09-15-2021 Patient encounter procedure 09/15/2021 Office Visit Robb Patton MD [address] [facility] [address] [place] [id number] [facility] Start: 05-30-2021 End: 05-30-2021 Patient encounter procedure 05/30/2021 Office Visit Robb Patton MD [address] [facility] [address] [place] [id number] [facility] Start: 03-18-2021 DEPRESSION ASSESSMENT DEPRESSION ASS ESSMENT [facility] Start: 02-17-2021 End: 02-17-2021 Patient encounter procedure 02/17/2021 Office Visit Psychiatry Robb Evans MD [address] [facility] [address] [place] [id number] [facility] Start: 02-03-2021 End: 02-03-2021 Patient encounter procedure 02/03/2021 Office Visit Robb Patton MD [address] [facility] [address] [place] [phone] [facility] Start: 11-16-2020 Influenza vaccination [facility] Start: 10-28-2020 End: 10-28-2020 Patient encounter procedure 10/28/2020 Office Visit Robb Patton MD [address] [facility] [address] [place] [id number] [phone] [facility] Start: 2020 Administration of he rpes zoster vaccine Zoster Vaccines (1 of 2) [facility] Start: 2020 Screening for malign ant neoplasm of colon [facility] Start: 2020 SHINGRIX VACCINE (1 of 2) SHINGRIX VACCINE (1 of 2) [facility] Start: 08-22-2020 End: 08-22-2020 Telemedicine consultation with patient 08/22/2020 Telemedicine Psychiatry Robb Evans MD [address] [facility] [address] [place] [id number] [phone] [facility] Start: 10-07-2015 COLOGUARD (FIT-DNA) COLOGUARD (FIT-D NA) [facility] Start: 10-07-2015 Colonoscopy COLONOSCOPY [facility] Start: 10-07-2015 COLORECTAL CANCER SCREENING COLORECTAL CANCER SCREENING [facility] Start: 10-07-[address] COLONOGRAPHY [facility] Start: 10-07-2015 DIABETES SCREEN DIABETES SCREEN [facility] Start: 10-07-2015 FECAL OCCULT BLOOD FECAL OCCULT BLOO D [facility] Start: 10-07-2015 LIPID SCREEN LIPID SCREEN [facility] Start: 10-07-2015 SIGMOIDOSCOPY SIGMOIDOSCOPY [facility] Start: 01-02-2015 PAP TESTING PAP TESTING [facility] Start: 2010 Mammography MAMMOGRAM [facility] Start: 2010 Screening for malign ant neoplasm of breast Mammogram [facility] Start: 2010 [facility]: 2000 HPV TESTING HPV TESTING [facility] Start: 1989 Urine microalbumin profile DTAP,TDAP,TD (1 - Tdap) [facility] Start: 1988 Hepatitis C screening Hepatitis C Sc reening [facility] Start: 1988 HIV SCREENING HIV SCREENING [facility] Start: 1986 COVID-19 Vaccine (1) COVID-19 Vaccin e (1) [facility] Start: 1985 HIV screening HIV Screening [facility] Start: 1982 COVID-19 Vaccine (1) COVID-19 Vaccin e (1) [facility] [facility] Start: [facility] PNEUMOCOCCAL (1 - PCV) PNEUMOCOCCAL (1 - PCV) [facility] Start: 1976 Pneumococcal Vaccine : Ped or At-Risk (1 - PCV) Pneumococcal Vaccine: Ped or At-Risk (1 - PCV) [facility] Start: 1976 Pneumococcal Vaccine : Ped or At-Risk (1 of 2 - PPSV23) Pneumococcal Vaccine: Ped or At-Risk (1 of 2 - PPSV23) [facility] Start: 1976 Pneumococcal Vaccine : Ped or At-Risk (1 of 4 - PCV13) Pneumococcal Vaccine: Ped or At-Risk (1 of 4 - PCV13) [facility] Start: 10-07-1975 COVID-19 Vaccine (1) COVID-19 Vaccin e (1) [facility] Start: 1973 History and physical examination, annual for health maintenance Wellness Visit [facility] Start: 04-08-1971 COVID-19 Vaccine (#1) COVID-19 Vacci ne (#1) [facility] Start: 1970 HEPATITIS B (1 of 3 - 3-dose series) HEPATITIS B (1 of 3 - 3-dose series) [facility] Start: 1970 Screening for malign ant neoplasm of cervix Pap Smear [facility] Start: 1970 Screening for malign ant neoplasm of colon [facility] Start: 1970 Screening mammography Mammogram [facility] Start: 1970 Tetanus vaccination Tetanus: Every 1 0yrs [facility] End: 09-19-2022 Comprehensive metabolic 2000 panel - Serum or Plasma Comprehensive Metabolic Panel Lab Routine Generalized anxiety disorder Long-term use of high-risk medication Bipolar 1 disorder, mixed, mild (HCC) 1 Occurrences starting 09/19/2021 until 09/19/2022 [facility] Comment on above: 1 Occurrences starti ng 09/19/2021 until 09/19/2022 End: 04-01-2023 Ct abdomen & pelvis w/contrast material CT ENTEROGRAPHY W IVCON Radiology Routine 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) Weight loss 1 Occurrences starting 03/02/2022 until 04/01/2023 [facility] Work Phone: Comment on above: 1 Occurrences starti ng 03/02/2022 until 04/01/2023 End: 12-15-2022 EGD DIAGNOSTIC EGD DIAGNOSTIC Endoscopy Routine Nausea and vomiting, unspecified vomiting type Left upper quadrant abdominal pain 1 Occurrences starting 12/15/2021 until 12/15/2022 [facility] Work Phone: Comment on above: 1 Occurrences starti ng 12/15/2021 until 12/15/2022 End: 03-02-2023 ENTEROSCOPY ENTEROSCOPY Endoscopy Routine 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) 1 Occurrences starting 03/02/2022 until 03/02/2023 [facility] Work Phone: Comment on above: 1 Occurrences starti ng 03/02/2022 until 03/02/2023 FAT, FECAL QUAL FAT, FECAL QUAL Lab Routine Weight loss Ordered: 01/05/2022 [facility] Work Phone: Comment on above: Ordered: 01/05/2022 End: 02-04-2023 Gastric emptying imaging study NM GASTRIC EMPTYING SOLID Radiology Routine Nausea 1 Occurrences starting 01/05/2022 until 02/04/2023 [facility] Work Phone: Comment on above: 1 Occurrences starti ng 01/05/2022 until 02/04/2023 End: 01-05-2023 Gi imag intraluminal esophagus-ileum w/i&r CAPSULE ENDOSCOPY SMALL BOWEL Endoscopy Routine Small bowel polyp 1 Occurrences starting 01/05/2022 until 01/05/2023 [facility] Work Phone: Comment on above: 1 Occurrences starti ng 01/05/2022 until 01/05/2023 End: 09-19-2022 Lipid 1996 panel - Serum or Plasma Lipid Panel Lab Routine Generalized anxiety disorder Long-term use of high-risk medication Bipolar 1 disorder, mixed, mild (HCC) 1 Occurrences starting 09/19/2021 until 09/19/2022 [facility] Comment on above: 1 Occurrences starti ng 09/19/2021 until 09/19/2022 PANC ELASTASE, FECAL PANC ELASTA SE, FECAL Lab Routine Weight loss Ordered: 01/05/2022 [facility] Work Phone: Comment on above: Ordered: 01/05/2022 End: 09-19-2022 Prolactin [Mass/volume] in Serum or Plasma Prolactin Lab Routine Generalized anxiety disorder Long-term use of high-risk medication Bipolar 1 disorder, mixed, mild (HCC) 1 Occurrences starting 09/19/2021 until 09/19/2022 [facility] Work Phone: Comment on above: 1 Occurrences starti ng 09/19/2021 until 09/19/2022 End: 04-01-2023 Radiologic exam chest 2 views XR CHEST 2V FRONTAL/LAT Radiology Routine Weight loss 1 Occurrences starting 03/02/2022 until 04/01/2023 [facility] Work Phone: Comment on above: 1 Occurrences starti ng 03/02/2022 until 04/01/2023 SURGICAL PATHOLOGY [facility] Work Phone: Comment on above: Release Upon Orderin g for 1 Occurrences starting 01/01/2022, 1 completed SURGICAL PATHOLOGY [facility] Work Phone: Comment on above: Release Upon Orderin g for 1 Occurrences starting 04/04/2022, 1 completed [facility] Payers Date Payer Category Payer Medicaid [id number] 2017 Medicaid [id number] 1970 Unknown [id number] 2.16.8 [id number] 1970 Unknown [id number] 2.16.8 [id number] 1970 Unknown [id number] 2.16. [id number] 1970 Unknown [id number] 2.16. [id number] 1970 Unknown [id number] 2.16. [id number] 1970 Unknown [id number] 2.16. [id number] 1970 Unknown [id number] 2.16.84 [id number] 1970 Unknown [id number] 2.16.84 [id number] 1970 Unknown [id number] 2.16.84 [id number] 1970 Unknown [id number] 2.16.84 [id number] 1970 Unknown [id number] 2.16.84 [id number] 1970 Unknown [id number] 2.16.84 [id number] 1970 Unknown [id number] 2.16.84 [id number] 1970 Unknown [id number] 2.16.84 [id number] 1959 Unknown [id number] 1959 Unknown [id number] Social History Date Type Detail Facility Start: 07-18-2020 End: 01-01-2022 Tobacco smoking status NHIS Current every day smoker [facility] Start: 07-18-2020 End: 01-01-2022 Tobacco use and exposure Never used [facility] Start: 07-18-2020 End: 04-04-2022 Alcohol intake Ex-drinker (finding) [facility] Start: 1970 Sex Assigned At Not on file [facility] Start: 09-09-2021 End: 02-05-2022 Exposure to SARS-CoV-2 (event) Not sure [facility] Start: 12-03-2021 End: 12-14-2021 Exposure to SARS-CoV-2 (event) Unable to assess [facility] Start: 06-10-2021 End: 06-20-2021 Exposure to SARS-CoV-2 (event) Yes [facility] Start: 1970 Sex Assigned At Female C [facility] History of tobacco use Cigarette Smoker C [facility] Start: 01-01-2022 Cigarettes smoked cu rrent (pack per day) - Reported 0.5 [facility] History of tobacco use Passive smoker [facility] Clinical Notes 07-20-2020 to 05-08-2022 Telephone Encounter - Eva Chong - 05/08/2022 10:40 AM Estrella Morales MD - 04/24/2022 8:06 AM ESTTelephone Encounter - Eva Chong - 04/05/2022 9:29 AM EST Note Date & Type Note Facility 05-08-2022 Miscellaneous Notes 05/08/22 Patient calling to see if Dr Morales will write her a script for Zofran nausea medication strips. [facility] in [place] [phone] Eva documented in this encounter [facility] 04-24-2022 Note HNO ID: [id number] Author: Tiffani Morales MD Service: ? Author Type: Physician Type: Progress Notes Filed: 04/24/2022 12:52 PM Note Text: SMALL BOWEL DISEASES AND NUTRITION FOLLOW-UP VIDEO VISIT Date of direct communication: 04/24/2022 [x] Patient consented to video visit IMPRESSION: Sai Pineda is a 51 year old female with severe malnutrition and weight loss in the setting of chronic nausea. There is a small tumor/polyp seen in the jejunum on recent capsule study, but this does not fully explain the reason for her nausea or weight loss as it is completely non-obstructing. Plan for further general evaluation of weight loss and malnutrition as well as oral balloon enteroscopy for evaluation and removal of small bowel tumor. 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 - no follow up needed for this #) Nausea management: #) Suspected constipation/high stool burden Zofran ODT, compazine - continue Fleet enema x 1, repeat x1 if needed Start senna daily, if too strong, can use Smooth Move or Calm #) Severe malnutrition (BMI 15) #) Weight loss Labs all normal Continue MVI with mineral supplement daily Would benefit from RD referral locally FOLLOW-UP: 6 weeks or sooner if needed Tiffani Morales MD 04/24/2022 11:19 AM Staff Electronic Scale Tester, [facility] [place] PRIMARY PROBLEM: small bowel tumor, severe malnutrition INTERVAL HISTORY: -Oral DBE with small patch of gastric heterotopic tissue which was removed, otherwise normal -Continues to have ongoing nausea - on zofran, compazine, xanax -Vomiting periodically, moves to fast, trying to do a lot at once -BM's seem normal, once every 2-3 day, soft, formed -Some fecal urgency, occasional incontinence -+abdo pain - sometimes none, sometimes up to 6/10, worse if she does a lot of physical activity, worse with eating, has to take zofran before and after eating, after BM -+gas, +bloat - worse with eating, improved after BM -Hasn't seen a RD locally yet -Weight maintained at 101 lbs CURRENT NUTRITION SUPPORT: None Weight history: Last 5 Encounter Wt Readings: Date: Wt: 04/04/2022 45.8 kg (101 lb) 01/01/2022 45.8 kg (101 lb) 10/24/2012 63.5 kg (140 lb) CURRENT MEDICATIONS: Current Outpatient Medications Medication Sig Dispense Refill ondansetron orally disintegrating (ZOFRAN ODT) 8 mg disintegrating tablet Take 1 tablet by mouth every 12 hours as needed for nausea/vomiting. 60 tablet 1 prochlorperazine (COMPAZINE) 5 mg tablet TAKE 1 TABLET BY MOUTH EVERY 6 HOURS NEEDED FOR NAUSEA AND VOMITING 100 tablet 1 ALPRAZolam (XANAX) 0.5 mg tablet Take 0.5 mg by mouth three times daily as needed. cloNIDine HCl (CATAPRES) 0.2 mg tablet lamoTRIgine (LAMICTAL) 200 mg tablet Take 200 mg by mouth. OLANZapine 5 mg tablet Take 5 mg by mouth daily at bedtime. pantoprazole 40 mg tablet Take 40 mg by mouth once daily. tiotropium (SPIRIVA WITH HANDIHALER) 18 mcg inhalation capsule Inhale 18 mcg as instructed once daily. No current facility-administered medications for this visit. ALLERGIES: ALLERGIES No Known Allergies PAST MEDICAL/SURGICAL HISTORY, SOCIAL HISTORY, AND FAMILY HISTORY: Reviewed and is unchanged aside from the changes documented in HPI. REVIEW OF SYSTEMS: ROS completed and negative outside of the systems documented in the HPI. INVESTIGATIONS: All available pertinent interval investigations were reviewed and were notable for: Capsule endoscopy : small bowel tumor seen in the proximal jejunum Oral DBE 04-04-2022: Findings: Patchy atrophic mucosa was found in the duodenal bulb, in the first portion of the duodenum and in the second portion of the duodenum. A 8 mm sessile polyp with was found in the proximal jejunum just distal to the ligament of Treitz. The polyp was removed with a saline injection-lift technique using a hot snare. Resection and retrieval were complete. Area was tattooed with an injection of 3 mL of Spot (carbon black) on the downstream side of the polypectomy site. For hemostasis, two hemostatic clips were successfully placed (MR conditional). Clip circular sawyer stone: Boonty. There was no bleeding at the end of the maneuver. Exam of the jejunum was otherwise normal. Impression: - Atrophic mucosa. - Jejunal polyp(s). Resected and retrieved. Tattooed. Pathology: A. Jejunum, polyp, biopsy: - Small intestine with gastric heterotopia. - Negative for dysplasia and malignancy. PHYSICAL EXAM: Limited with video visit. Total time spent on this patient encounter today was >25 mins including: preparation for the visit, review and interpretation of records, direct discussion with the patient, physical examination, documentation, and co-ordination of care. [facility] 04-24-2022 History of Presen t illness Narrative SMALL BOWEL DISEASES AND NUTRITION FOLLOW-UP VIDEO VISIT Date of direct communication: 04/24/2022 [x] Patient consented to video visit IMPRESSION: Sai Pineda is a 51 year old female with severe malnutrition and weight loss in the setting of chronic nausea. There is a small tumor/polyp seen in the jejunum on recent capsule study, but this does not fully explain the reason for her nausea or weight loss as it is completely non-obstructing. Plan for further general evaluation of weight loss and malnutrition as well as oral balloon enteroscopy for evaluation and removal of small bowel tumor. 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 - no follow up needed for this #) Nausea management: #) Suspected constipation/high stool burden Zofran ODT, compazine - continue Fleet enema x 1, repeat x1 if needed Start senna daily, if too strong, can use Smooth Move or Calm #) Severe malnutrition (BMI 15) #) Weight loss Labs all normal Continue MVI with mineral supplement daily Would benefit from RD referral locally FOLLOW-UP: 6 weeks or sooner if needed Tiffani Morales MD 04/24/2022 11:19 AM Staff Electronic Scale Tester, [facility] [place] PRIMARY PROBLEM: small bowel tumor, severe malnutrition INTERVAL HISTORY: -Oral DBE with small patch of gastric heterotopic tissue which was removed, otherwise normal -Continues to have ongoing nausea - on zofran, compazine, xanax -Vomiting periodically, moves to fast, trying to do a lot at once -BM's seem normal, once every 2-3 day, soft, formed -Some fecal urgency, occasional incontinence -+abdo pain - sometimes none, sometimes up to 6/10, worse if she does a lot of physical activity, worse with eating, has to take zofran before and after eating, after BM -+gas, +bloat - worse with eating, improved after BM -Hasn't seen a RD locally yet -Weight maintained at 101 lbs CURRENT NUTRITION SUPPORT: None Weight history: Last 5 Encounter Wt Readings: Date: Wt: 04/04/2022 45.8 kg (101 lb) 01/01/2022 45.8 kg (101 lb) 10/24/2012 63.5 kg (140 lb) CURRENT MEDICATIONS: Current Outpatient Medications Medication Sig Dispense Refill ondansetron orally disintegrating (ZOFRAN ODT) 8 mg disintegrating tablet Take 1 tablet by mouth every 12 hours as needed for nausea/vomiting. 60 tablet 1 prochlorperazine (COMPAZINE) 5 mg tablet TAKE 1 TABLET BY MOUTH EVERY 6 HOURS NEEDED FOR NAUSEA AND VOMITING 100 tablet 1 ALPRAZolam (XANAX) 0.5 mg tablet Take 0.5 mg by mouth three times daily as needed. cloNIDine HCl (CATAPRES) 0.2 mg tablet lamoTRIgine (LAMICTAL) 200 mg tablet Take 200 mg by mouth. OLANZapine 5 mg tablet Take 5 mg by mouth daily at bedtime. pantoprazole 40 mg tablet Take 40 mg by mouth once daily. tiotropium (SPIRIVA WITH HANDIHALER) 18 mcg inhalation capsule Inhale 18 mcg as instructed once daily. No current facility-administered medications for this visit. ALLERGIES: ALLERGIES No Known Allergies PAST MEDICAL/SURGICAL HISTORY, SOCIAL HISTORY, AND FAMILY HISTORY: Reviewed and is unchanged aside from the changes documented in HPI. REVIEW OF SYSTEMS: ROS completed and negative outside of the systems documented in the HPI. INVESTIGATIONS: All available pertinent interval investigations were reviewed and were notable for: Capsule endoscopy : small bowel tumor seen in the proximal jejunum Oral DBE 04-04-2022: Findings: Patchy atrophic mucosa was found in the duodenal bulb, in the first portion of the duodenum and in the second portion of the duodenum. A 8 mm sessile polyp with was found in the proximal jejunum just distal to the ligament of Treitz. The polyp was removed with a saline injection-lift technique using a hot snare. Resection and retrieval were complete. Area was tattooed with an injection of 3 mL of Spot (carbon black) on the downstream side of the polypectomy site. For hemostasis, two hemostatic clips were successfully placed (MR conditional). Clip circular sawyer stone: Boonty. There was no bleeding at the end of the maneuver. Exam of the jejunum was otherwise normal. Impression: - Atrophic mucosa. - Jejunal polyp(s). Resected and retrieved. Tattooed. Pathology: A. Jejunum, polyp, biopsy: - Small intestine with gastric heterotopia. - Negative for dysplasia and malignancy. PHYSICAL EXAM: Limited with video visit. Total time spent on this patient encounter today was >25 mins including: preparation for the visit, review and interpretation of records, direct discussion with the patient, physical examination, documentation, and co-ordination of care. documented in this encounter [facility] 04-05-2022 Miscellaneous Notes 04/05/22 Patient wants tow know if y script you can send her script for ZOFRAN, under the tongue tablets. For nausea. Eva documented in this encounter [facility] 04-04-2022 Note HNO ID: [id number] Author: Frederick Chaves APRN.[employer] Service: ? Author Type: Nurse Office Services Representative Type: Anesthesia Procedure Notes Filed: 04/04/2022 1:55 PM Note Text: ANESTHESIOLOGY PROCEDURE NOTE Airway General Information Procedure Start Time/Medication Administration: 04/04/2022 1:38 PM Patient location during procedure: OR Timeout Performed Pre-procedure: timeout performed Consent Obtained: Yes Patient identity confirmed: arm band Staffing [employer]: Frederick Chaves APRN.[employer] Performed by: [employer] Indications and Patient Condition Indications for airway management: anesthesia Preoxygenated: yes anesthesia circuit Patient position: sniffing Method: asleep Cricoid Pressure: No Difficult Mask: No Final Airway Details Final airway type: endotracheal airway Final Endotracheal Airway: ETT Cuffed: yes Successful intubation technique: video laryngoscopy Devices used: Cellectar Endotracheal tube insertion site: oral Blade: [place] Blade size: #3 ETT size (mm): 7.0 Measured from: lips Measurement (cm): 21 Placement verified by: capnometry Cormack-Lehane Classification: grade I - full view of glottis Number of attempts at approach: 1 Airway not difficult SIGNATURE: Frederick Chaves APRN.CRNA PATIENT NAME: Sai Pineda DATE: April 04, 2022 TIME: 1:54 PM CSN: [id number] [facility] 04-04-2022 Note HNO ID: [id number] Author: Frederick Chaves APRN.[employer] Service: ? Author Type: Nurse Office Services Representative Type: Anesthesia Procedure Notes Filed: 04/04/2022 1:51 PM Note Text: ANESTHESIOLOGY PROCEDURE NOTE PIV General Information Procedure Start Time/Medication Administration: 04/04/2022 1:26 PM Patient Location: OR Staffing [employer]: Frederick Chaves APRN.[employer] Performed by: GORGE Preparation Sterility Preparation: hand hygiene performed prior to procedure, surgical cap used, mask used, skin prep agent completely dried prior to procedure Site Prep: alcohol Procedure Details Indication: need for IV access Needle Size/Type: 22 gauge angiocath Orientation: Right Location: Foot Imaging Guidance Used: No SIGNATURE: Frederick Chaves APRN.CRNA PATIENT NAME: Sai Pineda DATE: April 04, 2022 TIME: 1:49 PM CSN: [id number] [facility] 04-04-2022 Nurse Note AMBULATORY PATIENT EDUCATION NOTE TOPIC: GI PROCEDURES: Enteroscopy READINESS TO LEARN INSTRUCTION PROVIDED TO: Patient, readness to learn accessed prior to procedure COGNITIVE ABILITY: Alert and oriented PTED MOTIVATION TO LEARN: Eager FAMILY SUPPORT: High - Very involved in pt care IPATIENT LEARNS BEST BY: Individual Instruction Written Instruction - Hand-outs Verbal Instruction FACTORS AFFECTING LEARNING: None PHYSICAL LIMITATIONS AFFECTING LEARNING: None LEARNING RESPONSE METHOD OF INSTRUCTION: Individual instruction PATIENT / FAMILY RESPONSE: Verbalizes understanding of: WORSENING CONDITION-Signs and symptoms of a worsening condition that warrant a call to the physician FOLLOW-UP PLAN: Recommend - Recommend continued instruction and follow up as directed Contact information given. SUPPLEMENTAL MATERIAL: Procedure Discharge Instructions REFERRAL (RECOMMENDATION): None Electronically Signed By: Eduardo Harrington RN PRE OP LEARNING ASSESSMENT PROCEDURE/SURGERY: GI PROCEDURES: enteroscopy READINESS TO LEARN COGNITIVE ABILITY: Alert and oriented MOTIVATION TO LEARN: Eager Interested FAMILY SUPPORT: High - Very involved in pt care PATIENT LEARNS BEST BY: Individual Instruction Written Instruction - Hand-outs Verbal Instruction FACTORS AFFECTING LEARNING: None PHYSICAL LIMITATIONS AFFECTING LEARNING: None Electronically Signed By: Rima Kirk RN In Department: GASTROENTEROLOGY documented in this encounter [facility] 04-04-2022 Note Q3 Patient Name: Sai Pineda Procedure Date: 04/04/2022 12:43 PM Date of : 1970 Admit Type: Outpatient Age: 51 Gender: Female Note Status: Finalized Attending MD: Tiffani Morales MD Procedure: Small bowel enteroscopy Indications: Abnormal video capsule endoscopy Providers: Tiffani Morales MD Patient Profile: This is a 51 year old female. Refer to note in patient chart for documentation of history and physical. Referring Physician: Tiffani Morales MD (Referring MD) Medicines: General Anesthesia Complications: No immediate complications. Requesting Provider: Procedure: Pre-Anesthesia Assessment: - Prior to the procedure, a History and Physical was performed, and patient medications and allergies were reviewed. The patient is competent. The risks and benefits of the procedure and the sedation options and risks were discussed with the patient. All questions were answered and informed consent was obtained. Patient identification and proposed procedure were verified by the physician, the nurse and the anesthesiologist in the procedure room. Mental Status Examination: alert and oriented. Airway Examination: normal oropharyngeal airway and neck mobility. Prophylactic Antibiotics: The patient does not require prophylactic antibiotics. Prior Anticoagulants: The patient has taken no anticoagulant or antiplatelet agents. ASA Grade Assessment: II - A patient with mild systemic disease. After reviewing the risks and benefits, the patient was deemed in satisfactory condition to undergo the procedure. The anesthesia plan was to use general anesthesia. Immediately prior to administration of medications, the patient was re-assessed for adequacy to receive sedatives. The heart rate, respiratory rate, oxygen saturations, blood pressure, adequacy of pulmonary ventilation, and response to care were monitored throughout the procedure. The physical status of the patient was re-assessed after the procedure. After obtaining informed consent, the endoscope was passed under direct vision. Throughout the procedure, the patient's blood pressure, pulse, and oxygen saturations were monitored continuously. The scope was introduced through the mouth and advanced to the distal jejunum. The small bowel enteroscopy was accomplished without difficulty. The patient tolerated the procedure well. Moderate Sedation: Moderate (conscious) sedation was administered by the endoscopy nurse and supervised by the endoscopist. The patient's oxygen saturation, heart rate, blood pressure and response to care were monitored. MAC anesthesia was administered by the anesthesia team. The administration of moderate sedation was initiated at 13:30 PM. Moderate (conscious) sedation was personally administered by an anesthesia professional. The following parameters were monitored: oxygen saturation, heart rate, blood pressure, and response to care. Findings: Patchy atrophic mucosa was found in the duodenal bulb, in the first portion of the duodenum and in the second portion of the duodenum. A 8 mm sessile polyp with was found in the proximal jejunum just distal to the ligament of Treitz. The polyp was removed with a saline injection-lift technique using a hot snare. Resection and retrieval were complete. Area was tattooed with an injection of 3 mL of Spot (carbon black) on the downstream side of the polypectomy site. For hemostasis, two hemostatic clips were successfully placed (MR conditional). Clip circular sawyer stone: Boonty. There was no bleeding at the end of the maneuver. Exam of the jejunum was otherwise normal. Impression: - Atrophic mucosa. - Jejunal polyp(s). Resected and retrieved. Tattooed. Clips (MR conditional) were placed. Clip circular sawyer stone: Boonty. Estimated Blood Loss: Estimated blood loss was minimal. Recommendation: - Await pathology results. - Resume previous diet. - Continue present medications. - Return to endoscopist at the next available appointment. Procedure Code(s): --- Professional --- 15527, Small intestinal endoscopy, enteroscopy beyond second portion of duodenum, not including ileum; with removal of tumor(s), polyp(s), or other lesion(s) by snare technique 38108, Unlisted procedure, small intestine Diagnosis Code(s): --- Professional --- K31.89, Other diseases of stomach and duodenum D13.39, Benign neoplasm of other parts of small intestine R93.3, Abnormal findings on diagnostic imaging of other parts of digestive tract CPT copyright 2020 [employer]. All rights reserved. Attending Participation: I was present and participated during the entire procedure, including non-morrison portions. Scope In: 1:44:30 PM Scope Out: 3:07:42 PM MD Tiffani Camargo MD 04/04/2022 3:21:50 PM This report has been signed electronically by Tiffani Morales MD Number of Addenda: 0 (more content not included)... 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 No clear liquids within 2 hours. PAST ANESTHESIA HISTORY: No history of adverse anesthesia event PAST MEDICAL HISTORY: PAST MEDICAL HISTORY Diagnosis Date COPD (chronic obstructive pulmonary disease) (HCC) PAST SURGICAL HISTORY: PAST SURGICAL HISTORY Procedure Laterality Date APPENDECTOMY HX REMOVAL GALLBLADDER TOTAL ABDOM HYSTERECTOMY CURRENT MEDICATIONS: Prior to Admission medications as of 04/04/22 1251 Medication Sig Last Dose Taking prochlorperazine (COMPAZINE) 5 mg tablet TAKE 1 TABLET BY MOUTH EVERY 6 HOURS NEEDED FOR NAUSEA AND VOMITING ondansetron orally disintegrating (ZOFRAN ODT) 8 mg disintegrating tablet Take 1 tablet by mouth every 12 hours as needed for nausea/vomiting. ALPRAZolam (XANAX) 0.5 mg tablet Take 0.5 mg by mouth three times daily as needed. cloNIDine HCl (CATAPRES) 0.2 mg tablet lamoTRIgine (LAMICTAL) 200 mg tablet Take 200 mg by mouth. OLANZapine 5 mg tablet Take 5 mg by mouth daily at bedtime. pantoprazole 40 mg tablet Take 40 mg by mouth once daily. tiotropium (SPIRIVA WITH HANDIHALER) 18 mcg inhalation capsule Inhale 18 mcg as instructed once daily. ALLERGIES: ALLERGIES No Known Allergies OBJECTIVE PHYSICAL EXAM: BP: 108/67 Temp: 37 C (98.6 F) Pulse: 90 Resp: 18 O2 Therapy: Room Air SpO2: 93 % AIRWAY: Patent, Full neck flexion and extension, Mallampati 1. LUNGS: Normal respiratory effort CARDIAC: PPP, normal HS, no murmur ABDOMEN: Soft, non-tender, no masses SIGNATURE: Tiffani Morales MD PATIENT NAME: Sai Pineda DATE: 04/04/2022 TIME: 1302 documented in this encounter [facility] 03-28-2022 Miscellaneous Notes Attempted to reach the patient at the contact number that they provided [phone] (home) . Unable to speak with patient so without identifying the patient the following information was left on their voice mail: Date of procedure, location and report time A message was left informing the patient/patient tax representative they must have a responsible adult accompany them to their procedure; and remain in the endoscopy area until they are discharged. Failure to have a responsible adult accompany the patient to their procedure appointment prevents the use of sedation or anesthesia for their procedure; and can result in cancellation of the procedure NPO instructions were reviewed. Instructions to contact their primary care provider regarding their medications and which medications to stop in preparation for their procedure Instructions to completely read and follow the written instructions that they recieved regarding their procedure. Number to call with questions or concerns [phone] Number to call to cancel their procedure [phone] Eduardo Harrington RN documented in this encounter [facility] 03-13-2022 Note Addended by: ROBB EVANS on: 03/13/2022 03:44 PM Modules accepted: Orders [facility] 03-13-2022 Miscellaneous Notes Addended by: ROBB EVANS on: 03/13/2022 03:44 PM Modules accepted: Orders Addended by: GOKUL MONTOYA on: 03/13/2022 03:37 PM Modules accepted: Orders documented in this encounter [facility] 03-13-2022 Note Addended by: GOKUL MONTOYA on: 03/13/2022 03:37 PM Modules accepted: Orders [facility] 03-13-2022 Note Addended by: GOKUL MONTOYA on: 03/13/2022 03:37 PM Modules accepted: Orders [facility] 03-13-2022 Miscellaneous Notes Addended by: GOKUL MONTOYA on: 03/13/2022 03:37 PM Modules accepted: Orders documented in this encounter [facility] 03-01-2022 Note HNO ID: [id number] Author: Tiffani Morales MD Service: ? Author Type: Physician Type: Progress Notes Filed: 03/02/2022 9:08 AM Note Text: SMALL BOWEL DISEASES AND NUTRITION FOLLOW-UP TELEPHONE VISIT Date of direct communication: 03/01/2022 [x] Patient consented to telephone visit. It was done as a phone visit because after over 15 mins of trying to trouble shoot over the phone, she still could not access the video or audio on Zoom with a direct link or access the video or audio with a FaceTime invite. IMPRESSION: Sai Pineda is a 51 year old female with severe malnutrition and weight loss in the setting of chronic nausea. There is a small tumor/polyp seen in the jejunum on recent capsule study, but this does not fully explain the reason for her nausea or weight loss as it is completely non-obstructing. Plan for further general evaluation of weight loss and malnutrition as well as oral balloon enteroscopy for evaluation and removal of small bowel tumor. DIAGNOSTIC ISSUES AND PLAN: #) Small bowel tumor/polyp CT enterography CXR Single balloon enteroscopy #) Nausea management: Zofran ODT #) Severe malnutrition (BMI 15) #) Weight loss Check nutrition labs Oral intake encouraged Add MVI with mineral supplement daily Would benefit from RD referral locally FOLLOW-UP: at the time of GI procedures Tiffani Morales MD 03/01/2022 11:19 AM Staff Electronic Scale Tester, [facility] [place] PRIMARY PROBLEM: small bowel tumor, severe malnutrition INTERVAL HISTORY: -Still 101 lbs, unable to gain weight -Ongoing nausea is really bad -Also with night sweats -Black BM's every 2 weeks -Currently has the flu from her daughter -No NSAIDs, anti-plt, anti-coag CURRENT NUTRITION SUPPORT: None Weight history: Last 5 Encounter Wt Readings: Date: Wt: 01/01/2022 45.8 kg (101 lb) 10/24/2012 63.5 kg (140 lb) CURRENT MEDICATIONS: Current Outpatient Medications Medication Sig Dispense Refill ondansetron (ZOFRAN) 4 mg tablet Take 1 tablet by mouth once daily as needed for nausea/vomiting (for nausea.) for up to 14 days. 30 tablet 0 prochlorperazine (COMPAZINE) 5 mg tablet TAKE 1 TABLET BY MOUTH EVERY 6 HOURS NEEDED FOR NAUSEA AND VOMITING 100 tablet 1 ALPRAZolam (XANAX) 0.5 mg tablet Take 0.5 mg by mouth three times daily as needed. cloNIDine HCl (CATAPRES) 0.2 mg tablet lamoTRIgine (LAMICTAL) 200 mg tablet Take 200 mg by mouth. OLANZapine 5 mg tablet Take 5 mg by mouth daily at bedtime. pantoprazole 40 mg tablet Take 40 mg by mouth once daily. tiotropium (SPIRIVA WITH HANDIHALER) 18 mcg inhalation capsule Inhale 18 mcg as instructed once daily. No current facility-administered medications for this visit. ALLERGIES: ALLERGIES No Known Allergies PAST MEDICAL/SURGICAL HISTORY, SOCIAL HISTORY, AND FAMILY HISTORY: Reviewed and is unchanged aside from the changes documented in HPI. REVIEW OF SYSTEMS: ROS completed and negative outside of the systems documented in the HPI. INVESTIGATIONS: All available pertinent interval investigations were reviewed and were notable for: Capsule endoscopy : small bowel tumor seen in the proximal jejunum PHYSICAL EXAM: Not done with telephone visit Total time spent on this patient encounter today was >45 mins including: preparation for the visit, review and interpretation of records, direct discussion with the patient, physical examination, documentation, and co-ordination of care. [facility] 03-01-2022 History of Presen t illness Narrative SMALL BOWEL DISEASES AND NUTRITION FOLLOW-UP TELEPHONE VISIT Date of direct communication: 03/01/2022 [x] Patient consented to telephone visit. It was done as a phone visit because after over 15 mins of trying to trouble shoot over the phone, she still could not access the video or audio on Zoom with a direct link or access the video or audio with a FaceTime invite. IMPRESSION: Sai Pineda is a 51 year old female with severe malnutrition and weight loss in the setting of chronic nausea. There is a small tumor/polyp seen in the jejunum on recent capsule study, but this does not fully explain the reason for her nausea or weight loss as it is completely non-obstructing. Plan for further general evaluation of weight loss and malnutrition as well as oral balloon enteroscopy for evaluation and removal of small bowel tumor. DIAGNOSTIC ISSUES AND PLAN: #) Small bowel tumor/polyp CT enterography CXR Single balloon enteroscopy #) Nausea management: Zofran ODT #) Severe malnutrition (BMI 15) #) Weight loss Check nutrition labs Oral intake encouraged Add MVI with mineral supplement daily Would benefit from RD referral locally FOLLOW-UP: at the time of GI procedures Tiffani Morales MD 03/01/2022 11:19 AM Staff Electronic Scale Tester, [facility] [place] PRIMARY PROBLEM: small bowel tumor, severe malnutrition INTERVAL HISTORY: -Still 101 lbs, unable to gain weight -Ongoing nausea is really bad -Also with night sweats -Black BM's every 2 weeks -Currently has the flu from her daughter -No NSAIDs, anti-plt, anti-coag CURRENT NUTRITION SUPPORT: None Weight history: Last 5 Encounter Wt Readings: Date: Wt: 01/01/2022 45.8 kg (101 lb) 10/24/2012 63.5 kg (140 lb) CURRENT MEDICATIONS: Current Outpatient Medications Medication Sig Dispense Refill ondansetron (ZOFRAN) 4 mg tablet Take 1 tablet by mouth once daily as needed for nausea/vomiting (for nausea.) for up to 14 days. 30 tablet 0 prochlorperazine (COMPAZINE) 5 mg tablet TAKE 1 TABLET BY MOUTH EVERY 6 HOURS NEEDED FOR NAUSEA AND VOMITING 100 tablet 1 ALPRAZolam (XANAX) 0.5 mg tablet Take 0.5 mg by mouth three times daily as needed. cloNIDine HCl (CATAPRES) 0.2 mg tablet lamoTRIgine (LAMICTAL) 200 mg tablet Take 200 mg by mouth. OLANZapine 5 mg tablet Take 5 mg by mouth daily at bedtime. pantoprazole 40 mg tablet Take 40 mg by mouth once daily. tiotropium (SPIRIVA WITH HANDIHALER) 18 mcg inhalation capsule Inhale 18 mcg as instructed once daily. No current facility-administered medications for this visit. ALLERGIES: ALLERGIES No Known Allergies PAST MEDICAL/SURGICAL HISTORY, SOCIAL HISTORY, AND FAMILY HISTORY: Reviewed and is unchanged aside from the changes documented in HPI. REVIEW OF SYSTEMS: ROS completed and negative outside of the systems documented in the HPI. INVESTIGATIONS: All available pertinent interval investigations were reviewed and were notable for: Capsule endoscopy : small bowel tumor seen in the proximal jejunum PHYSICAL EXAM: Not done with telephone visit Total time spent on this patient encounter today was >45 mins including: preparation for the visit, review and interpretation of records, direct discussion with the patient, physical examination, documentation, and co-ordination of care. documented in this encounter [facility] 02-16-2022 Note HNO ID: [id number] Author: Anastasiya Mosqueda PA-C Service: ? Author Type: Physician Weatherization Crew Leader Type: Progress Notes Filed: 02/16/2022 5:07 PM Note Text: Orders placed [facility] 02-05-2022 Note HNO ID: [id number] Author: RT Fabiana(Liam) Service: Nuclear Medicine Author Type: Technologist Type: Progress Notes Filed: 02/05/2022 10:16 AM Note Text: RADIOLOGY SERVICE PROGRESS NOTE SERVICE DATE: 02/05/2022 SERVICE TIME: 10:16 AM PATIENT IDENTITY VERIFICATION COMPLETED USING TWO (2) STANDARD IDENTIFIERS: Name and Date of confirmed by patient verbally FALL SCREENING: Has the patient had 2 falls in the last year or 1 fall with injury or currently using an Ambulatory Assistive Device (Walker, Cane, Wheelchair, Crutches, etc.)? No PATIENT GENDER DATA: .female : No ALLERGIES: Reviewed and unchanged MEDICATIONS REVIEWED: Yes PATIENT RELEVANT IMPLANT DATA REVIEWED: Not Applicable CREATININE: No results found for: CREAT, EGFROTH, EGFRAA P.O.C.T. RESULTS: N/A February 05, [address] PERFORMED: No IV SITE: NM only - not applicable, oral or physician administered agents given to patient POST EXAM PIV STATUS: Discontinued PROCEDURE TYPE: NM GET: 1 mCi Tc99m SULFUR COLLOID was administered orally via 4 ounces of Egg Beaters,2 pieces of toast, 1 ounce of jelly with 8 ounces of water orally ADMINISTRATION TIME: 08:15 PATIENT DISCHARGED TO: Ambulatory patient, left [place] department area. A Diagnostic radioactive procedure has taken place, with no further precautions necessary other than routine body substance precautions. More information regarding radiation safety can be found using this link: [email or web address] SIGNATURE: RT Fabiana(R) PATIENT NAME: Sai Pineda DATE: February 05, 2022 TIME: 10:16 AM PAGER/CONTACT #: [facility] 01-29-2022 Note HNO ID: [id number] Author: Dolores Lopez RN Service: ? Author Type: Registered Nurse Type: Progress Notes Filed: 02/01/2022 4:29 PM Note Text: Summary: capsule endoscopy small bowel Capsule endoscopy small bowel ingested without difficulty @ 1300 on 01-29-2022. Therese Lopez RN [id number] [facility] PTF G [id number] Capsule Endoscopy Post Ingestion Patient Information Do not eat or drink for two (2) hours after you have swallowed the capsule endoscope. Two (2) hours after you have swallowed the capsule endoscope you may drink clear liquids like coffee and tea (without cream), cola drinks, apple juice, broth, and eat Jell-O or popsicles. Please do not consume anything red in color. You may also return to taking your routine medications. Four (4) hours after you have swallowed the capsule endoscope, you may return to your usual diet. You may return to your normal activities after ingesting the capsule. Please avoid vigorous exercise. You may operate electrical equipment while undergoing your capsule endoscopy. It is not likely that any household or office equipment will interfere with this examination. You may use cell phones, computers, remote TV appliances, microwaves, [employer] players and digital cameras. Because the capsule endoscopy equipment is somewhat ominous in appearance, we recommend you avoid the airport, bank and government buildings. Many museums use a similar technology for security, it is best to avoid these environments. Avoid other patients also undergoing capsule endoscopy. Although the transmission distance is limited, it is possible that your capsule images could be altered. You may not have an MRI (a test similar to an x-ray that uses magnets in the imaging process) while the capsule endoscope remains in your body. Do not schedule a capsule endoscope and an MRI for the same day. Should you require an MRI in the future and you have not seen the capsule evacuated in your stool, discuss this with your physician. An x-ray of your abdomen can show if the capsule has been evacuated. Remove your capsule endoscopy equipment at the time indicated by your procedure nurse. Loosen the Velcro Belt (if you have adhesive patches on your abdomen-remove them). The equipment will come off in one piece. There is nothing to turn of or take apart. Place all equipment in the box provided. Place the provided adhesive- backed UPS requisition on the box for return to the main [place]. Place the box in the closest UPS SEND box. Please return the completed Patient Satisfaction questionnaire with the equipment The capsule endoscope will pass naturally in your stool. It is not necessary to retrieve or return the capsule. The images are stored in the equipment you have worn on your belt. You may flush the used capsule down the bathroom toilet for disposal. In some instances, patients have passed the capsule endoscope during stooling while the capsule is still actively ?blinking?. Do not be alarmed if this happens to you. You may dispose of the capsule in the same manner. If you stopped taking your oral Iron for this examination, you may resume taking it as your physician has prescribed. Seek medical assistance if you develop extreme abdominal pain, bloating, fever, nausea and vomiting. These may be signs of obstruction and require medical intervention. During routine business hours you may call: HERNÁN Salvador RN [phone] After Business hours: [phone] and ask for GI [facility] 01-29-2022 History of Presen t illness Narrative Summary: capsule endoscopy small bowel Capsule endoscopy small bowel ingested without difficulty @ 1300 on 01-29-2022. Therese Lopez RN [id number] [facility] PTF G [id number] Capsule Endoscopy Post Ingestion Patient Information Do not eat or drink for two (2) hours after you have swallowed the capsule endoscope. Two (2) hours after you have swallowed the capsule endoscope you may drink clear liquids like coffee and tea (without cream), cola drinks, apple juice, broth, and eat Jell-O or popsicles. Please do not consume anything red in color. You may also return to taking your routine medications. Four (4) hours after you have swallowed the capsule endoscope, you may return to your usual diet. You may return to your normal activities after ingesting the capsule. Please avoid vigorous exercise. You may operate electrical equipment while undergoing your capsule endoscopy. It is not likely that any household or office equipment will interfere with this examination. You may use cell phones, computers, remote TV appliances, microwaves, [employer] players and digital cameras. Because the capsule endoscopy equipment is somewhat ominous in appearance, we recommend you avoid the airport, bank and government buildings. Many [facility] use a similar technology for security, it is best to avoid these environments. Avoid other patients also undergoing capsule endoscopy. Although the transmission distance is limited, it is possible that your capsule images could be altered. You may not have an MRI (a test similar to an x-ray that uses magnets in the imaging process) while the capsule endoscope remains in your body. Do not schedule a capsule endoscope and an MRI for the same day. Should you require an MRI in the future and you have not seen the capsule evacuated in your stool, discuss this with your physician. An x-ray of your abdomen can show if the capsule has been evacuated. Remove your capsule endoscopy equipment at the time indicated by your procedure nurse. Loosen the Velcro Belt (if you have adhesive patches on your abdomen-remove them). The equipment will come off in one piece. There is nothing to turn of or take apart. Place all equipment in the box provided. Place the provided adhesive- backed UPS requisition on the box for return to the main campus. Place the box in the closest UPS SEND box. Please return the completed Patient Satisfaction questionnaire with the equipment The capsule endoscope will pass naturally in your stool. It is not necessary to retrieve or return the capsule. The images are stored in the equipment you have worn on your belt. You may flush the used capsule down the bathroom toilet for disposal. In some instances, patients have passed the capsule endoscope during stooling while the capsule is still actively blinking . Do not be alarmed if this happens to you. You may dispose of the capsule in the same manner. If you stopped taking your oral Iron for this examination, you may resume taking it as your physician has prescribed. Seek medical assistance if you develop extreme abdominal pain, bloating, fever, nausea and vomiting. These may be signs of obstruction and require medical intervention. During routine business hours you may call: HERNÁN Salvador RN [phone] After Business hours: [phone] and ask for GI [facility] documented in this encounter [facility] 01-05-2022 Miscellaneous Notes Phone note F/U EGD Incidental finding of duodenal adenoma. She continues to feel unwell with ongoing nausea and upper abdominal pain. Weight has stabilized around 100 lbs (BMI 15) She had a colonoscopy and thinks that she is due for another one soon. Plan: Capsule study Stool fat and stool elastase Gastric emptying study Cross sectional imaging & update basic labs (CBC, CMP, CRP, 25-OH vitamin D, B12, ferritin, folate, TSH) if not done recently. Continued symptom management Colonoscopy eventually when she can tolerate a bowel preparation Tiffani Morales MD 01-05-2022 17:51 documented in this encounter [facility] 01-05-2022 Note HNO ID: [id number] Author: Anastasiya Mosqueda PA-C Service: ? Author Type: Physician Weatherization Crew Leader Type: Progress Notes Filed: 01/05/2022 2:24 PM Note Text: Per discussion with Dr. Morales, GES, Small bowel capsule study, Fecal fat qual and pancreatic elastase stool studies orders placed. Discussed plan with patient. Anastasiya Mosqueda PA-C [facility] 01-05-2022 History of Presen t illness Narrative Per discussion with Dr. Morales, GES, Small bowel capsule study, Fecal fat qual and pancreatic elastase stool studies orders placed. Discussed plan with patient. Anastasiya Mosqueda PA-C documented in this encounter [facility] 01-05-2022 Miscellaneous Notes Patient with continued nausea and vomiting, discussed pathology results with patient, though awaiting input from performing GI provider for further clarification. Patient has previously tolerated Zofran and compazine, will try combination. Risks/benefits/side effects discussed given hx of anti-psychotic medications, though given previous tolerance, patient agreeable and wants to continue treatment. Consider GES testing. Anastasiya Mosqueda PA-C documented in this encounter [facility] 01-03-2022 Miscellaneous Notes EGD results discussed with patient as requested, pathology still pending. Will reach out to patient once resulted. Red flags for in person care discussed. Anastasiya Mosqueda PA-C documented in this encounter [facility] 01-02-2022 Miscellaneous Notes Patient called to get results from her procedure. Please contact her at number listed in system. Thanks Leydi Henry Workleader documented in this encounter [facility] 01-01-2022 Nurse Note AMBULATORY PATIENT EDUCATION NOTE TOPIC: GI PROCEDURES: Esophagogastroduodenoscopy(EGD) with or without biopies based on clinical findings, removal of polyps or lesions READINESS TO LEARN INSTRUCTION PROVIDED TO: Patient and family member COGNITIVE ABILITY: Alert and oriented PTED MOTIVATION TO LEARN: Interested FAMILY SUPPORT: High - Very involved in pt care IPATIENT LEARNS BEST BY: Individual Instruction Written Instruction - Hand-outs Verbal Instruction FACTORS AFFECTING LEARNING: None PHYSICAL LIMITATIONS AFFECTING LEARNING: None LEARNING RESPONSE METHOD OF INSTRUCTION: Individual instruction PATIENT / FAMILY RESPONSE: Verbalizes understanding of: WORSENING CONDITION-Signs and symptoms of a worsening condition that warrant a call to the physician FOLLOW-UP PLAN: Recommend - Recommend continued instruction and follow up as directed SUPPLEMENTAL MATERIAL: Procedure Discharge Instructions REFERRAL (RECOMMENDATION): None Electronically Signed By: Juan Carlos Saucedo LPN PRE OP LEARNING ASSESSMENT PROCEDURE/SURGERY: GI PROCEDURES: EGD READINESS TO LEARN COGNITIVE ABILITY: Alert and oriented MOTIVATION TO LEARN: Interested FAMILY SUPPORT: High - Very involved in pt care PATIENT LEARNS BEST BY: Individual Instruction Written Instruction - Hand-outs Verbal Instruction FACTORS AFFECTING LEARNING: None PHYSICAL LIMITATIONS AFFECTING LEARNING: None Electronically Signed By: Rima Coleman RN In Department: GASTROENTEROLOGY documented in this encounter [facility] 01-01-2022 History and physical note GI PROCEDURAL HISTORY AND PHYSICAL EXAM PLANNED PROCEDURE EGD ASSESSMENT Unexplained weight loss, oily stools, nausea, upper abdominal pain SUBJECTIVE HPI: This is a 51 year old female who presents with a history of chronic nausea, abdominal discomfort, and alternating diarrhea and constipation. EGD about 4 years ago was unremarkable. She now has lost about 15 lbs within the past 3-4 weeks. Last oral intake: No solids within 8 hours. No clear liquids within 2 hours. 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 No pertinent surgical history. CURRENT MEDICATIONS: Prior to Admission medications as of 01/01/22 1535 Medication Sig Last Dose Taking sertraline 100 mg tablet Take 100 mg by mouth once daily. hydrOXYzine pamoate 25 mg capsule Take 25 mg by mouth three times daily as needed. clonazePAM 1 mg tablet Take 1 mg by mouth twice daily as needed. OLANZapine 5 mg tablet Take 5 mg by mouth daily at bedtime. pantoprazole 40 mg tablet Take 40 mg by mouth once daily. ondansetron 4 mg tablet Take 4 mg by mouth every 8 hours as needed. prazosin 2 mg cap Take by mouth twice daily. tiotropium (SPIRIVA WITH HANDIHALER) 18 mcg inhalation capsule Inhale 18 mcg as instructed once daily. fluticasone-salmeterol (ADVAIR DISKUS) 100-50 mcg/dose DsDv Inhale 1 Puff as instructed twice daily. nicotine 21 mg/24 hr Apply 1 Patch as directed every 24 hours. gabapentin (NEURONTIN) 100 mg capsule Take 1cap nightly x 3-5days, increase 1cap every 3-5days until 3caps AM/3caps noon/3capsPM thereafter if tolerated/necessary. Diclofenac Sodium (VOLTAREN) 1 % gel apply 2gms to areas of joint pain up to four times a day. Avoid contact with eyes. Do not exceed 32gm/day ALLERGIES: ALLERGIES No Known Allergies OBJECTIVE PHYSICAL EXAM: BP: 121/64 Temp: 36.3 C (97.3 F) Temp src: Temporal Pulse: 78 Resp: 19 O2 Therapy: Room Air SpO2: 98 % AIRWAY: Patent, Full neck flexion and extension, Mallampati 2. LUNGS: Normal respiratory effort CARDIAC: PPP, normal HS, no murmur ABDOMEN: Soft, non-tender, no masses SIGNATURE: Tiffani Morales MD PATIENT NAME: Sai Guerrero DATE: 01/01/2022 TIME: 1600 documented in this encounter [facility] 12-25-2021 Miscellaneous Notes Patient scheduled incorrectly. Anesthesia not supposed to have 430 case. I called patient to see if they can come in early. She said she would call me back Rima Gerard RN documented in this encounter [facility] 12-15-2021 Note HNO ID: [id number] Author: Anastasiya oMsqueda PA-C Service: ? Author Type: Physician Weatherization Crew Leader Type: Progress Notes Filed: 12/15/2021 4:32 PM Note Text: VIRTUAL VISIT NEW PATIENT NAME: Sai Guerrero [facility] NO: [id number] DATE: 12/15/2021 REASON FOR VISIT Sai Guerrero [id number] 1970 has requested a video telemedicine initial consultation at the request of Self. Sai Guerrero verbalized informed consent to proceed with the video telemedicine initial consultation. Sai Guerrero was informed that the details of this video visit would be recorded as part of their electronic medical record. My recommendations will be conveyed to the consulting provider by way of shared electronic medical record, fax, or U.S. Mail. No chief complaint on file. PRESENTING COMPLAINT Sai Guerrero is a 51 year old female with PMHx of MOON, Bipolar 1 disorder, History of Etoh abuse, COPD who presents for evaluation of abdominal pain, nausea and vomiting x 3 weeks. *Visit done via telephone per patient request* Patient reports losing 15 pounds over the past 3 weeks. Mentions she has visited the ED on 3 different occasions for her symptoms. States symptoms initially started off as flu like symptoms followed by chest pain, abdominal pain and diarrhea. Diarrhea has since resolved. Has been on Zofran, phenergan and reglan. Also reports night sweats that started around 1.5 months ago. Mentions anti nausea medication helps, though was previously vomiting around 2-3 times daily. Patient last underwent EGD and a colonoscopy a few years ago, mentions she was having diarrhea and vomiting. States she was told she has a small hiatal hernia on EGD and had multiple polyps removed. Patient last went to the ED on 12/03, was also prescribed PPI which she has been taking. Denies chronic NSAID use. Father had colon cancer was diagnosed at age 65. Patient is a recovering alcoholic, sober for 10 years, denies smoking or illicit drug use. Patient does not have a history of diabetes. Reports having LUQ abdominal pain, tender on palpation. Described as a sharp/aching pain rating it a 8/10 at this time. Has constant nausea. States she has minimum PO intake, gags when attempting to eat. States she is currently 101 pounds. Denies fevers/chills, chest pain, sob, hematemesis, hematochezia, melena, dysphagia or odynophagia. EGD 04/2019: 2mild antral gastritis and small hiatal hernia Colonoscopy 04/2019: 12 small sessile polyps descending colon, 5 small sessile polyps sigmoid. CURRENT MEDICATIONS Current Outpatient Medications Medication Sig Dispense Refill sertraline 100 mg tablet Take 100 mg by mouth once daily. hydrOXYzine pamoate 25 mg capsule Take 25 mg by mouth three times daily as needed. clonazePAM 1 mg tablet Take 1 mg by mouth twice daily as needed. OLANZapine 5 mg tablet Take 5 mg by mouth daily at bedtime. pantoprazole 40 mg tablet Take 40 mg by mouth once daily. ondansetron 4 mg tablet Take 4 mg by mouth every 8 hours as needed. prazosin 2 mg cap Take by mouth twice daily. tiotropium (SPIRIVA WITH HANDIHALER) 18 mcg inhalation capsule Inhale 18 mcg as instructed once daily. fluticasone-salmeterol (ADVAIR DISKUS) 100-50 mcg/dose DsDv Inhale 1 Puff as instructed twice daily. nicotine 21 mg/24 hr Apply 1 Patch as directed every 24 hours. 30 Patch 3 gabapentin (NEURONTIN) 100 mg capsule Take 1cap nightly x 3-5days, increase 1cap every 3-5days until 3caps AM/3caps noon/3capsPM thereafter if tolerated/necessary. 270 capsule 3 Diclofenac Sodium (VOLTAREN) 1 % gel apply 2gms to areas of joint pain up to four times a day. Avoid contact with eyes. Do not exceed 32gm/day 100 g 5 No current facility-administered medications for this visit. Patient has no known allergies. Recent Labs: CBC: No results found for: WBC, HCT, MCV, PLT, NEUT, LYMPHP Hepatic Function Panel: No results found for: ALB, TBILI, CBILI, ALKPHOS, AST, ALT, TPROT PAST MEDICAL HISTORY No past medical history on file. PAST SURGICAL HISTORY No past surgical history on file. FAMILY HISTORY No family history on file. SOCIAL HISTORY ROS EyesNegative for vision changes, diplopia or epiphora. Ears, Mouth, nose, throat:No problems Cardiovascular: No Problems Respiratory: Negative for cough, wheezing and shortness of breath Gastrointestinal : SEE HPI Genitourinary: negative Musuloskeletal: Normal Integumentary: no rashes, lesions, or jaundice Neurological: No history of neurologic problems Endocrine: Negative for cold or heat intolerance, polyuria, polydipsia and goiter. Psychiatric: Cooperative and agreeable Allergic/ Immunologic: Negative All others negative PHYSICAL EXAMINATION Unable to perform as visit done via telephone per patient request. Abdominal exam: Patient reports LUQ tenderness to palpation, denies abdominal rigidity Assessment IMPRESSION (more content not included)... [facility] 12-15-2021 History of Presen t illness Narrative VIRTUAL VISIT NEW PATIENT NAME: Sai Guerrero [facility] NO: [id number] DATE: 12/15/2021 REASON FOR VISIT Sai Guerrero [id number] 1970 has requested a video telemedicine initial consultation at the request of Self. Sai Guerrero verbalized informed consent to proceed with the video telemedicine initial consultation. Sai Guerrero was informed that the details of this video visit would be recorded as part of their electronic medical record. My recommendations will be conveyed to the consulting provider by way of shared electronic medical record, fax, or U.S. Mail. No chief complaint on file. PRESENTING COMPLAINT Sai Guerrero is a 51 year old female with PMHx of MOON, Bipolar 1 disorder, History of Etoh abuse, COPD who presents for evaluation of abdominal pain, nausea and vomiting x 3 weeks. *Visit done via telephone per patient request* Patient reports losing 15 pounds over the past 3 weeks. Mentions she has visited the ED on 3 different occasions for her symptoms. States symptoms initially started off as flu like symptoms followed by chest pain, abdominal pain and diarrhea. Diarrhea has since resolved. Has been on Zofran, phenergan and reglan. Also reports night sweats that started around 1.5 months ago. Mentions anti nausea medication helps, though was previously vomiting around 2-3 times daily. Patient last underwent EGD and a colonoscopy a few years ago, mentions she was having diarrhea and vomiting. States she was told she has a small hiatal hernia on EGD and had multiple polyps removed. Patient last went to the ED on 12/03, was also prescribed PPI which she has been taking. Denies chronic NSAID use. Father had colon cancer was diagnosed at age 65. Patient is a recovering alcoholic, sober for 10 years, denies smoking or illicit drug use. Patient does not have a history of diabetes. Reports having LUQ abdominal pain, tender on palpation. Described as a sharp/aching pain rating it a 8/10 at this time. Has constant nausea. States she has minimum PO intake, gags when attempting to eat. States she is currently 101 pounds. Denies fevers/chills, chest pain, sob, hematemesis, hematochezia, melena, dysphagia or odynophagia. EGD 04/2019: 2mild antral gastritis and small hiatal hernia Colonoscopy 04/2019: 12 small sessile polyps descending colon, 5 small sessile polyps sigmoid. CURRENT MEDICATIONS Current Outpatient Medications Medication Sig Dispense Refill sertraline 100 mg tablet Take 100 mg by mouth once daily. hydrOXYzine pamoate 25 mg capsule Take 25 mg by mouth three times daily as needed. clonazePAM 1 mg tablet Take 1 mg by mouth twice daily as needed. OLANZapine 5 mg tablet Take 5 mg by mouth daily at bedtime. pantoprazole 40 mg tablet Take 40 mg by mouth once daily. ondansetron 4 mg tablet Take 4 mg by mouth every 8 hours as needed. prazosin 2 mg cap Take by mouth twice daily. tiotropium (SPIRIVA WITH HANDIHALER) 18 mcg inhalation capsule Inhale 18 mcg as instructed once daily. fluticasone-salmeterol (ADVAIR DISKUS) 100-50 mcg/dose DsDv Inhale 1 Puff as instructed twice daily. nicotine 21 mg/24 hr Apply 1 Patch as directed every 24 hours. 30 Patch 3 gabapentin (NEURONTIN) 100 mg capsule Take 1cap nightly x 3-5days, increase 1cap every 3-5days until 3caps AM/3caps noon/3capsPM thereafter if tolerated/necessary. 270 capsule 3 Diclofenac Sodium (VOLTAREN) 1 % gel apply 2gms to areas of joint pain up to four times a day. Avoid contact with eyes. Do not exceed 32gm/day 100 g 5 No current facility-administered medications for this visit. Patient has no known allergies. Recent Labs: CBC: No results found for: WBC, HCT, MCV, PLT, NEUT, LYMPHP Hepatic Function Panel: No results found for: ALB, TBILI, CBILI, ALKPHOS, AST, ALT, TPROT PAST MEDICAL HISTORY No past medical history on file. PAST SURGICAL HISTORY No past surgical history on file. FAMILY HISTORY No family history on file. SOCIAL HISTORY ROS EyesNegative for vision changes, diplopia or epiphora. Ears, Mouth, nose, throat:No problems Cardiovascular: No Problems Respiratory: Negative for cough, wheezing and shortness of breath Gastrointestinal : SEE HPI Genitourinary: negative Musuloskeletal: Normal Integumentary: no rashes, lesions, or jaundice Neurological: No history of neurologic problems Endocrine: Negative for cold or heat intolerance, polyuria, polydipsia and goiter. Psychiatric: Cooperative and agreeable Allergic/ Immunologic: Negative All others negative PHYSICAL EXAMINATION Unable to perform as visit done via telephone per patient request. Abdominal exam: Patient reports LUQ tenderness to palpation, denies abdominal rigidity Assessment IMPRESSION Sai Guerrero is a 51 year old female with PMHx of MOON, Bipolar 1 disorder, History of Etoh abuse, COPD who presents for evaluation of abdominal pain, nausea and vomiting x 3 weeks. Patient reports acute onset of n/v/d and abdominal pain 3 weeks ago. Diarrhea has resolved, though nausea, vomiting and L sided abdominal pain have persisted. Currently taking phenergan, zofran and reglan prn for nausea. Reports LUQ abdominal pain in addition, described as a sharp/aching rating it 8/10. Has lost 15 pounds since onset of symptoms, mentions not eating helps symptoms. Last underwent EGD and colonoscopy in 2019, states she was told she has a small hiatal hernia and had multiple polyps removed from colonoscopy, mentions her father was diagnosed with colon cancer at age 65. Denies chronic NSAID use. No history of diabetes. Also started taking PPI, has had 3 hospital visits since onset of symptoms, most recently on 12/03. R/o Gastritis/Esophagitis/Duodeniti s/PUD vs ?Gastroparesis. PLAN Adequate hydration 6 small frequent meals throughout the day Low fat/ Low fiber diet Continue anti-emetics prn Continue PPI Nutrition consultation placed given weight loss EGD order placed, consider GES if negative Red flags for in person care discussed Follow up prn I spent a total of 30 minutes on the date of the service which included completing clinical documentation, performing a medically appropriate examination, counseling and educating the patient/family/caregiver, and ordering medications, tests, or procedures. Anastasiya Mosqueda PA-C December 15, 2021 11:51 AM documented in this encounter [facility] 12-14-2021 Note HNO ID: [id number] Author: Anastasiya Mosqueda PA-C Service: ? Author Type: Physician Weatherization Crew Leader Type: Progress Notes Filed: 12/14/2021 3:51 PM Note Text: Unable to connect to VV, called multiple times and left multiple VM's. Patient rescheduled for tomorrow. [facility] 12-14-2021 History of Presen t illness Narrative Unable to connect to VV, called multiple times and left multiple VM's. Patient rescheduled for tomorrow. documented in this encounter [facility] 12-13-2021 Miscellaneous Notes Spoke to patient's daughter - she will contact the [employer] support line to assist with setting up patient's [employer] & assist with set up for virtual visit tomorrow morning [facility] Received a call from patient's health agency concerning virtual visit set up with you today at 11 - Patient has not registered for [facility] (having trouble accessing her email) & they want to know if you will do a phone visit instead Was told this was an urgent request from the referring doctor's office - the visit was scheduled thru the Referring Physician office There are no records found for this patient & I attempted to pull records thru Care Everywhere Patient's phone [phone] Elizabeth Ricci documented in this encounter [facility] 09-27-2021 History of Presen t illness Narrative Prolactin Level Elevated at 146. Will add Abilify 5 mg daily to address that. Pt informed. Pt is denying breast tenderness or documented in this encounter [facility] 09-19-2021 History of Presen t illness Narrative BEHAVIORAL HEALTH PSYCHIATRIC PROGRESS NOTE Reason for visit: Psychotropic medication management 09/19/2021 Patient is seen alone in his office for psychotropic medication management. Patient reported they are moving to a new residence, in [place] same place they have been living in. Patient is excited about the new place, states moving has been slightly stressful otherwise she is glad that they have downsized. Patient denies any decline in her mood since she was last seen. Patient continues to do well on current psychotropic medication regimen. Patient denies any ongoing pervasive sadness or anhedonia. Reports fair energy and fair motivation. Patient has been taking care of ADLs and hygiene without any issues. Reports her sleep has been fair no issues falling or staying asleep. Patient denies any nightmares or other trauma symptoms. Not feeling helpless or hopeless or worthless. Denies any ongoing suicidal ideation intent or plan. Appetite is within normal limits. Anxiety control has been fair and patient reports no breakthrough bothersome anxiety She also denies any ongoing drug or alcohol abuse. Continues to maintain sobriety. Patient denies experiencing any ongoing hypomanic or manic mood symptoms. Patient denies any ongoing racing thoughts or flight of ideas. Denies any pervasive irritability. Denies any increased distress or increased goal-directed activities. Denies any ongoing distractibility. Interpersonal issues were discussed: Support was provided Medications assessed: Patient has been compliant denies any ongoing side effects and wants to stay on the same plan, response has been fair Goals and objectives of treatment: Maintain baseline mood stability Maintain good anxiety control Maintain sobriety Treatment compliance The following portions of the patient's history were reviewed and updated as appropriate: allergies, current medications, past family history, past medical history, past social history, past surgical history and problem list. Review of Systems : Constitutional: Negative. HENT: Negative. Eyes: Negative. Respiratory: Negative. Cardiovascular: Negative. Gastrointestinal: Negative. Endocrine: Negative. Genitourinary: Negative. Musculoskeletal: Negative. Skin: Negative. Allergic/Immunologic: Negative. Neurological: Negative. Hematological: Negative. Patient's Medications New Prescriptions No medications on file Previous Medications ALBUTEROL (PROVENTIL) 2.5 MG /3 ML (0.083 %) NEBULIZER SOLUTION 2.5 mg . PANTOPRAZOLE (PROTONIX) 40 MG TABLET Take 40 mg by mouth . POLYETHYLENE GLYCOL (MIRALAX) 17 GRAM POWDER MIX 1 PACKET IN DRINK AND TAKE ONCE DAILY SPIRIVA RESPIMAT 2.5 MCG/ACTUATION MIST TAKE 2 PUFFS BY MOUTH EVERY DAY Modified Medications Modified Medication Previous Medication ALPRAZOLAM (XANAX) 0.5 MG TABLET ALPRAZolam (XANAX) 0.5 MG tablet Take 1 (one) tablet (0.5 mg total) by mouth 3 (three) times a day as needed for sleep or anxiety . Take 1 (one) tablet (0.5 mg total) by mouth 3 (three) times a day as needed for sleep or anxiety . CLONIDINE HCL (CATAPRES) 0.2 MG TABLET cloNIDine HCL (CATAPRES) 0.2 MG tablet Take 1 (one) tablet (0.2 mg total) by mouth nightly . Take 1 (one) tablet (0.2 mg total) by mouth nightly . LAMOTRIGINE (LAMICTAL) 200 MG TABLET lamoTRIgine (LAMICTAL) 200 MG tablet Take 1 (one) tablet (200 mg total) by mouth daily . Take 1 (one) tablet (200 mg total) by mouth daily . RISPERIDONE (RISPERDAL) 2 MG TABLET risperiDONE (RISPERDAL) 2 MG tablet Take 1 (one) tablet (2 mg total) by mouth daily . Take 1 (one) tablet (2 mg total) by mouth daily . Discontinued Medications No medications on file Assessment/Plan: MSE: Psychiatric General Behavior: Patient is engaged and cooperative, fair eye contact Speech/motor activity Normal rate and tone, Flow to Thought: Denies racing thoughts/flight of ideas Thought Associations: Intact Content of Thought: No evidence of suicidal ideations / homicidal ideations / delusions / obsessions Mood and affect good / Appropriate and full range Insight: fair Judgment: fair Orientation: alert and oriented to person, place, time Memory: Recent intact, remote intact Attention: fair Concentration: Fair Language: Average Fund of Knowledge: Average ASSESSMENT AND PLAN: Assessment Diagnoses and all orders for this visit: Bipolar 1 disorder, mixed, mild (HCC): In full remission Generalized anxiety disorder - ALPRAZolam (XANAX) 0.5 MG tablet; Take 1 (one) tablet (0.5 mg total) by mouth 3 (three) times a day as needed for sleep or anxiety . Long-term use of high-risk medication PTSD: Chronic Current Global assessment of functionin Other orders - cloNIDine HCL (CATAPRES) 0.2 MG tablet; Take 1 (one) tablet (0.2 mg total) by mouth nightly . - lamoTRIgine (LAMICTAL) 200 MG tablet; Take 1 (one) tablet (200 mg total) by mouth daily . - risperiDONE (RISPERDAL) 2 MG tablet; Take 1 (one) tablet (2 mg total) by mouth daily . Treatment Plan: Pharmacological management: Alternative medication plans were discussed with the patient/guardian. All relevant side effects and potential adverse effects were discussed with the patient/guardian. Standard cautions and potential benefits were discussed. FDA label and OFF label uses of medications were discussed. Patient/Guardian consented to the start/continuation of the following: Continue ALPRAZolam (XANAX) 0.5 MG tablet, Take 1 (one) tablet (0.5 mg total) by mouth 3 (three) times a day as needed for sleep or anxiety ., Disp: 90 tablet, Rfl: 0 cloNIDine HCL (CATAPRES) 0.2 MG tablet, Take 1 (one) tablet (0.2 mg total) by mouth nightly ., Disp: 30 tablet, Rfl: 5 lamoTRIgine (LAMICTAL) 200 MG tablet, Take 1 (one) tablet (200 mg total) by mouth daily ., Disp: 30 tablet, Rfl: 5 risperiDONE (RISPERDAL) 2 MG tablet, Take 1 (one) tablet (2 mg total) by mouth daily ., Disp: 30 tablet, Rfl: 5 Will monitor side effects and progress and adjust medications appropriately Crisis Intervention plan was discussed and agreed upon. Patient/Guardian will call 911 in case of emergency. Emergency contact information was provided to the patient/guardian. Laboratory and other tests: See orders. Psychotherapy: none Follow up as scheduled or return early if needed. School or community referral: none Treatment Goals and Objectives discussed. Other Referrals/Consults/Psychologica l Testing: none Robb Evans documented in this encounter [facility] 06-20-2021 History of Presen t illness Narrative BEHAVIORAL HEALTH PSYCHIATRIC PROGRESS NOTE Reason for visit: Psychotropic medication management 06/20/2021 Patient is seen alone in his office for psychotropic medication management. Patient has no ongoing concerns to report. Patient reports she is doing pretty good the best she has been in a while. She denies any ongoing depressed mood or P or other depressive mood symptoms. Denies any ongoing anhedonia. Reports fair motivation and energy. Patient denies any excessive tearfulness and is not withdrawn and isolated. Patient denies any ongoing feelings of hopelessness or helplessness. Denies any ongoing passive or active morbid thoughts. Patient is not experiencing any manic or hypomanic mood symptoms at this time. Patient denies any pervasive irritability or inflated moods. Patient denies any ongoing racing thoughts or flight of ideas. There is no ongoing increased busyness or increased goal-directed activities. Her Impulse control has been fair. Patient reports adequate anxiety control. She denies any excessive trauma symptoms at this time. She is not experiencing any bothersome nightmares or flashbacks or intrusive memories of her trauma. Patient denies any ongoing drug or alcohol abuse Interpersonal issues were discussed: Support was provided Medications assessed: Patient has been compliant denies any ongoing side effects and wants to stay on the same plan, response has been fair Goals and objectives of treatment: Maintain baseline mood stability Maintain good anxiety control Maintain sobriety Compliance The following portions of the patient's history were reviewed and updated as appropriate: allergies, current medications, past family history, past medical history, past social history, past surgical history and problem list. Review of Systems : Constitutional: Negative. HENT: Negative. Eyes: Negative. Respiratory: Negative. Cardiovascular: Negative. Gastrointestinal: Negative. Endocrine: Negative. Genitourinary: Negative. Musculoskeletal: Negative. Skin: Negative. Allergic/Immunologic: Negative. Neurological: Negative. Hematological: Negative. Patient's Medications New Prescriptions No medications on file Previous Medications ALBUTEROL (PROVENTIL) 2.5 MG /3 ML (0.083 %) NEBULIZER SOLUTION 2.5 mg . PANTOPRAZOLE (PROTONIX) 40 MG TABLET Take 40 mg by mouth . POLYETHYLENE GLYCOL (MIRALAX) 17 GRAM POWDER MIX 1 PACKET IN DRINK AND TAKE ONCE DAILY SPIRIVA RESPIMAT 2.5 MCG/ACTUATION MIST TAKE 2 PUFFS BY MOUTH EVERY DAY Modified Medications Modified Medication Previous Medication ALPRAZOLAM (XANAX) 0.5 MG TABLET ALPRAZolam (XANAX) 0.5 MG tablet Take 1 (one) tablet (0.5 mg total) by mouth 3 (three) times a day as needed for sleep or anxiety . Take 1 (one) tablet (0.5 mg total) by mouth 3 (three) times a day as needed for sleep or anxiety . CLONIDINE HCL (CATAPRES) 0.2 MG TABLET cloNIDine HCL (CATAPRES) 0.2 MG tablet Take 1 (one) tablet (0.2 mg total) by mouth nightly . Take 1 (one) tablet (0.2 mg total) by mouth nightly . LAMOTRIGINE (LAMICTAL) 200 MG TABLET lamoTRIgine (LAMICTAL) 200 MG tablet Take 1 (one) tablet (200 mg total) by mouth daily . Take 1 (one) tablet (200 mg total) by mouth daily . RISPERIDONE (RISPERDAL) 2 MG TABLET risperiDONE (RISPERDAL) 2 MG tablet Take 1 (one) tablet (2 mg total) by mouth daily . Take 1 (one) tablet (2 mg total) by mouth daily . Discontinued Medications No medications on file Assessment/Plan: MSE: Psychiatric General Behavior: Patient is engaged and cooperative, fair eye contact Speech/motor activity Normal rate and tone/normal Flow to Thought: Denies racing thoughts/flight of ideas Thought Associations: Intact Content of Thought: No evidence of suicidal ideations / homicidal ideations / delusions / obsessions Mood and affect good and congruent to stated mood Insight: fair Judgment: fair Orientation: alert and oriented to person, place, time Memory: Recent intact, remote intact Attention: Adequate Concentration: Adequate Language: Average Fund of Knowledge: Average ASSESSMENT AND PLAN: Assessment Diagnoses and all orders for this visit: Bipolar 1 disorder, mixed, mild (HCC): In full remission Generalized anxiety disorder - ALPRAZolam (XANAX) 0.5 MG tablet; Take 1 (one) tablet (0.5 mg total) by mouth 3 (three) times a day as needed for sleep or anxiety . Long-term use of high-risk medication PTSD: Chronic Current Global assessment of functionin Other orders - cloNIDine HCL (CATAPRES) 0.2 MG tablet; Take 1 (one) tablet (0.2 mg total) by mouth nightly . - lamoTRIgine (LAMICTAL) 200 MG tablet; Take 1 (one) tablet (200 mg total) by mouth daily . - risperiDONE (RISPERDAL) 2 MG tablet; Take 1 (one) tablet (2 mg total) by mouth daily . Treatment Plan: Pharmacological management: Alternative medication plans were discussed with the patient/guardian. All relevant side effects and potential adverse effects were discussed with the patient/guardian. Standard cautions and potential benefits were discussed. FDA label and OFF label uses of medications were discussed. Patient/Guardian consented to the start/continuation of the following: Continue ALPRAZolam (XANAX) 0.5 MG tablet, Take 1 (one) tablet (0.5 mg total) by mouth 3 (three) times a day as needed for sleep or anxiety ., Disp: 90 tablet, Rfl: 0 cloNIDine HCL (CATAPRES) 0.2 MG tablet, Take 1 (one) tablet (0.2 mg total) by mouth nightly ., Disp: 30 tablet, Rfl: 5 lamoTRIgine (LAMICTAL) 200 MG tablet, Take 1 (one) tablet (200 mg total) by mouth daily ., Disp: 30 tablet, Rfl: 5 risperiDONE (RISPERDAL) 2 MG tablet, Take 1 (one) tablet (2 mg total) by mouth daily ., Disp: 30 tablet, Rfl: 5 Will monitor side effects and progress and adjust medications appropriately Crisis Intervention plan was discussed and agreed upon. Patient/Guardian will call 911 in case of emergency. Emergency contact information was provided to the patient/guardian. Laboratory and other tests: See orders. Psychotherapy: none Follow up as scheduled or return early if needed. School or community referral: none Treatment Goals and Objectives discussed. Other Referrals/Consults/Psychologica l Testing: none Robb Evans documented in this encounter [facility] 03-01-2021 History of Presen t illness Narrative Telephone Visit Via Phone Call [facility] [address]) [facility] [address] [facility] [phone] Telephone Visit [facility] 03/01/2021 Robb Evans MD Provider Location: [facility] Patient Location Airplane Rental Clerk: None Patient Location: Patient's Home Patient: Sai Pineda Date of : 1970 (50 y.o. female) PCP: Cristina Iqbal CNP I discussed risks, benefits and alternatives of a telephone visit telemedicine consultation with the patient (and any accompanying persons) including the risks that the patient's personal health details and medical records will be discussed over real-time, synchronous, interactive audio technology, the visit will not be recorded without the express consent of both the provider and the patient, and that there are inherent diagnostic limitations compared to [id number] evaluations. We elected to proceed with the telephone visit telemedicine consultation. HPI Patient interviewed over the phone, audio quality was fair, patient was able to engage and answer questions appropriately. Patient reports she is doing better, mood is improved and feeling significantly less irritable and significantly less depressed. Having more fair days, feels more stable more days than not. Reports minimal to no racing thoughts. Motor activity normal limits. Patient is not hyperverbal or having pressured speech over the phone. Patient reported sleep is getting fair, no issues falling or staying asleep. Patient reported fair attention span and concentration. Denies excessive distractibility. Patient reported no ongoing pervasive sadness or anhedonia. Patient denies any ongoing feelings of hopelessness or helplessness. Denies any ongoing passive or active morbid thoughts. Adequate energy and motivation reported. Patient is taking care of ADLs and hygiene and miter cutter. She is not withdrawn or isolated. Denies any excessive tearfulness or crying episodes. Denies any pervasive irritability, denies engaging in impulsive reckless behaviors. Impulse control has been fair. Patient reports adequate anxiety control. Minimal trauma symptoms reported. Patient denies any ongoing drug or alcohol abuse The prescriptions were discussed and support was provided Medications assessed: Patient has been compliant denies any ongoing side effects and wants to stay on the same plan, response has been fair The following portions of the patient's history were reviewed and updated as appropriate: allergies, current medications, past family history, past medical history, past social history, past surgical history and problem list. Review of Systems Constitutional: Negative. HENT: Negative. Eyes: Negative. Respiratory: Negative. Cardiovascular: Negative. Gastrointestinal: Negative. Endocrine: Negative. Genitourinary: Negative. Musculoskeletal: Negative. Skin: Negative. Allergic/Immunologic: Negative. Neurological: Negative. Hematological: Negative. Patient's Medications New Prescriptions No medications on file Previous Medications ALBUTEROL (PROVENTIL) 2.5 MG /3 ML (0.083 %) NEBULIZER SOLUTION 2.5 mg . PANTOPRAZOLE (PROTONIX) 40 MG TABLET Take 40 mg by mouth . POLYETHYLENE GLYCOL (MIRALAX) 17 GRAM POWDER MIX 1 PACKET IN DRINK AND TAKE ONCE DAILY SPIRIVA RESPIMAT 2.5 MCG/ACTUATION MIST TAKE 2 PUFFS BY MOUTH EVERY DAY Modified Medications Modified Medication Previous Medication ALPRAZOLAM (XANAX) 0.5 MG TABLET ALPRAZolam (XANAX) 0.5 MG tablet Take 1 (one) tablet (0.5 mg total) by mouth 3 (three) times a day as needed for sleep or anxiety . Take 1 (one) tablet (0.5 mg total) by mouth 3 (three) times a day as needed for sleep or anxiety . CLONIDINE HCL (CATAPRES) 0.2 MG TABLET cloNIDine HCL (CATAPRES) 0.2 MG tablet Take 1 (one) tablet (0.2 mg total) by mouth nightly . Take 1 (one) tablet (0.2 mg total) by mouth nightly . LAMOTRIGINE (LAMICTAL) 200 MG TABLET lamoTRIgine (LAMICTAL) 200 MG tablet Take 1 (one) tablet (200 mg total) by mouth daily . Take 1 (one) tablet (200 mg total) by mouth daily . RISPERIDONE (RISPERDAL) 2 MG TABLET risperiDONE (RISPERDAL) 2 MG tablet Take 1 (one) tablet (2 mg total) by mouth daily . Take 1 (one) tablet (2 mg total) by mouth daily . Discontinued Medications No medications on file Assessment/Plan: MSE: Psychiatric General Behavior: Patient is engaged and cooperative Speech: Normal rate and tone Flow to Thought: Denies racing thoughts/flight of ideas Thought Associations: Intact Content of Thought: No evidence of suicidal ideations / homicidal ideations / delusions / obsessions Mood: 'better Insight: fair Judgment: fair Orientation: alert and oriented to person, place, time Memory: Recent intact, remote intact Attention: Adequate Concentration: Adequate Language: Average Fund of Knowledge: Average ASSESSMENT AND PLAN: Diagnoses and all orders for this visit: Bipolar 1 disorder, mixed, mild (HCC) Generalized anxiety disorder - ALPRAZolam (XANAX) 0.5 MG tablet; Take 1 (one) tablet (0.5 mg total) by mouth 3 (three) times a day as needed for sleep or anxiety . Long-term use of high-risk medication PTSD: Chronic Current Global assessment of functionin Other orders - cloNIDine HCL (CATAPRES) 0.2 MG tablet; Take 1 (one) tablet (0.2 mg total) by mouth nightly . - lamoTRIgine (LAMICTAL) 200 MG tablet; Take 1 (one) tablet (200 mg total) by mouth daily . - risperiDONE (RISPERDAL) 2 MG tablet; Take 1 (one) tablet (2 mg total) by mouth daily . Treatment Plan: Pharmacological management: Alternative medication plans were discussed with the patient/guardian. All relevant side effects and potential adverse effects were discussed with the patient/guardian. Standard cautions and potential benefits were discussed. FDA label and OFF label uses of medications were discussed. Patient/Guardian consented to the start/continuation of the following: Continue ALPRAZolam (XANAX) 0.5 MG tablet, Take 1 (one) tablet (0.5 mg total) by mouth 3 (three) times a day as needed for sleep or anxiety ., Disp: 90 tablet, Rfl: 0 cloNIDine HCL (CATAPRES) 0.2 MG tablet, Take 1 (one) tablet (0.2 mg total) by mouth nightly ., Disp: 30 tablet, Rfl: 5 lamoTRIgine (LAMICTAL) 200 MG tablet, Take 1 (one) tablet (200 mg total) by mouth daily ., Disp: 30 tablet, Rfl: 5 risperiDONE (RISPERDAL) 2 MG tablet, Take 1 (one) tablet (2 mg total) by mouth daily ., Disp: 30 tablet, Rfl: 5 Will monitor side effects and progress and adjust medications appropriately Crisis Intervention plan was discussed and agreed upon. Patient/Guardian will call 911 in case of emergency. Emergency contact information was provided to the patient/guardian. Laboratory and other tests: See orders. Psychotherapy: none Follow up as scheduled or return early if needed. School or community referral: none Treatment Goals and Objectives discussed. Other Referrals/Consults/Psychologica l Testing: none I have spent 15 minutes with the patient reviewing the HPI and Plan of Care. documented in this encounter [facility] 08-22-2020 History of Presen t illness Narrative Telephone Visit Via Phone Call [facility] [phone] Telephone Visit [facility] 08/22/2020 Robb Evans MD Provider Location: [facility] Patient Location Airplane Rental Clerk: None Patient Location: Patient's Home Patient: Sai Pineda Date of : 1970 (49 y.o. female) PCP: Cristina Iqbal CNP I discussed risks, benefits and alternatives of a telephone visit telemedicine consultation with the patient (and any accompanying persons) including the risks that the patient's personal health details and medical records will be discussed over real-time, synchronous, interactive audio technology, the visit will not be recorded without the express consent of both the provider and the patient, and that there are inherent diagnostic limitations compared to [id number] evaluations. We elected to proceed with the telephone visit telemedicine consultation. HPI Patient was interviewed over the phone, already quality was fair, patient was engaged. Patient reported she has started to make progress since her last visit with medication adjustments. Patient reports she is feeling less down and depressed and less irritable, having more fair days, reports decreased racing thoughts and decreased psychomotor agitation. She reported she is not engaging in anything reckless or impulsive and denied any ongoing increased busyness or increased goal-directed activities. She denies any ongoing feelings of hopelessness, helplessness or worthlessness. Reports adequate energy and motivation. Denies any ongoing passive or active morbid thoughts. Denies any ongoing suicidal ideation intent or plan. Patient also reported that her anxiety control is getting better. Reports reduced breakthrough anxiety. Denies excessive worrying and is not feeling constantly restless or tense like she used to before. Sleep is improved able to fall asleep and stay asleep and is averaging around 6 to 7 hours of sleep. Appetite has improved. Patient reports decreased PTSD symptoms. Reports less frequent nightmares, decreased intensity of intrusive memories and reduced flashbacks. Still has times when she gets easily startled. Denies any ongoing drug or alcohol abuse. Patient has been maintained sobriety Interpersonal issues were discussed: Support was provided Medications assessed: Patient is compliant denies any ongoing side effects. Patient is showing fair response. We will continue to optimize treatment The following portions of the patient's history were reviewed and updated as appropriate: allergies, current medications, past family history, past medical history, past social history, past surgical history and problem list. Review of Systems Constitutional: Negative. HENT: Negative. Eyes: Negative. Respiratory: Negative. Gastrointestinal: Negative. Endocrine: Negative. Genitourinary: Negative. Patient's Medications New Prescriptions No medications on file Previous Medications ALBUTEROL (PROVENTIL) 2.5 MG /3 ML (0.083 %) NEBULIZER SOLUTION 2.5 mg . PANTOPRAZOLE (PROTONIX) 40 MG TABLET Take 40 mg by mouth . POLYETHYLENE GLYCOL (MIRALAX) 17 GRAM POWDER MIX 1 PACKET IN DRINK AND TAKE ONCE DAILY SPIRIVA RESPIMAT 2.5 MCG/ACTUATION MIST TAKE 2 PUFFS BY MOUTH EVERY DAY Modified Medications Modified Medication Previous Medication ALPRAZOLAM (XANAX) 0.5 MG TABLET ALPRAZolam (XANAX) 0.5 MG tablet Take 1 (one) tablet (0.5 mg total) by mouth 3 (three) times a day as needed for sleep or anxiety . Take 1 (one) tablet (0.5 mg total) by mouth 3 (three) times a day as needed for sleep or anxiety . CLONIDINE HCL (CATAPRES) 0.2 MG TABLET cloNIDine HCL (CATAPRES) 0.2 MG tablet Take 1 (one) tablet (0.2 mg total) by mouth nightly . Take 1 (one) tablet (0.2 mg total) by mouth nightly . LAMOTRIGINE (LAMICTAL) 200 MG TABLET lamoTRIgine (LAMICTAL) 25 MG tablet Take 1 (one) tablet (200 mg total) by mouth daily Start: 08/29/20. RISPERIDONE (RISPERDAL) 4 MG TABLET risperiDONE (RISPERDAL) 4 MG tablet Take 1 (one) tablet (4 mg total) by mouth daily . Take 1 (one) tablet (4 mg total) by mouth daily . Discontinued Medications No medications on file Assessment/Plan: Mental status examination: Patient was able to engage over the phone, speech is not pressured, patient is not reporting any psychomotor agitation and reports minimal racing thoughts, reports impulse control has been fair. Patient denies any ongoing suicidal ideation intent or plan. Mood was reported to be okay, patient denies any ongoing thought content and thought process abnormalities. Patient denies any ongoing homicidal ideation intent or plan. Attention and concentration is adequate, memory is baseline intact, insight/judgment: Improved, language/intellect: Average Diagnoses and all orders for this visit: Moderate mixed bipolar I disorder (HCC) Improving Generalized anxiety disorder, improving - ALPRAZolam (XANAX) 0.5 MG tablet; Take 1 (one) tablet (0.5 mg total) by mouth 3 (three) times a day as needed for anxiety . Long-term use of high-risk medication PTSD: Chronic, improving GAF: 67 Other orders - cloNIDine HCL (CATAPRES) 0.2 MG tablet; Take 1 (one) tablet (0.2 mg total) by mouth nightly . - lamoTRIgine (LAMICTAL) 200 MG tablet; Take 1 (one) tablet (200 mg total) by mouth daily Start: 08/29/20. - risperiDONE (RISPERDAL) 4 MG tablet; Take 1 (one) tablet (4 mg total) by mouth daily . Treatment Plan: Pharmacological management: Alternative medication plans were discussed with the patient/guardian. All relevant side effects and potential adverse effects were discussed with the patient/guardian. Standard cautions and potential benefits were discussed. FDA label and OFF label uses of medications were discussed. Patient/Guardian consented to the start/continuation of the following: Continue Risperdal 4 mg daily Starting 08/29/2020 increase lamotrigine to 200 mg daily. Continue to monitor for rash Continue clonidine 0.2 mg daily at bedtime Continue Xanax 0.5 mg 1 tablet 3 times a day as needed for anxiety Will monitor side effects and progress and adjust medications appropriately Crisis Intervention plan was discussed and agreed upon. Patient/Guardian will call 911 in case of emergency. Emergency contact information was provided to the patient/guardian. Laboratory and other tests: See orders. Psychotherapy: Completed Follow up as scheduled or return early if needed. School or community referral: None Treatment Goals and Objectives discussed. Other Referrals/Consults/Psychologica l Testing I have spent 15 minutes with the patient reviewing the HPI and Plan of Care. documented in this encounter [facility] 07-20-2020 History of Presen t illness Narrative BEHAVIORAL HEALTH PSYCHIATRIC ASSESSMENT DOS: 07/18/3020 Reason for visit: Psychotropic management follow-up. Patient is here to reestablish care at my new location HPI: Patient is seen in office alone. Patient was under my care for about a year at my old location in [facility]. Her working diagnosis is bipolar disorder type I, panic disorder with agoraphobia and PTSD. She has prior history of alcohol and cannabis abuse but has maintained sobriety for about last 1 year. Patient was seen here for reestablishing care at my new location in [facility]. Patient wants to continue her psychiatric management.. She had briefly seen a nurse practitioner in [place] after I left. Patient reported she she is doing okay, still having mild to moderate mixed mood symptoms. She reports mild to moderate depressed mood and irritability, does have racing thoughts and flight of ideas and distractibility. Mild psychomotor agitation is present. She is hyperverbal. Patient stated that she did not start lamotrigine because she was concerned about the rash. Patient reported that she was scared. We discussed rash and Du-Mir's again and patient stated that she is going to restart that medication back again. She is feeling helpless and worthless but denies any ongoing feelings of hopelessness. Appetite is within normal limits. She does have mild difficulty falling asleep and staying asleep. She is also reporting mild PTSD symptoms, mostly intrusive memories and flashbacks but denies any ongoing nightmares. Does report mild hypervigilance symptoms. Xanax continues to help her breakthrough anxiety and agoraphobia. Patient stated that she still prefers to stay at home but has less difficulty when sitting out in public and going to her appointments and doing basic stuff like groceries. Patient has been able to take care of her hygiene and ADLs. Denies any ongoing drug or alcohol abuse. Denied any ongoing suicide ideation intent or plan. Denies any ongoing aggressive thoughts or thoughts of harming others. Denied any ongoing psychotic symptoms. Denies any ongoing perceptual disturbances Interpersonal issues were discussed: Support was provided Medications assessed: Patient has been compliant. No ongoing side effects reported. Patient will start her lamotrigine titration. PFSH: Past Medical History: Diagnosis Date Alcoholism ([facility]), in remission Anxiety Bipolar disorder ([facility]) Depression Drug abuse and dependence ([facility]) in remission Panic disorder Psychosis ([facility]) Social History Substance and Sexual Activity Alcohol Use Not Currently Social History Substance and Sexual Activity Drug Use Not on file Social History Substance and Sexual Activity Sexual Activity Not on file Family History: Mother: depression, anxiety Current Medications: Current Outpatient Medications: albuterol (PROVENTIL) 2.5 mg /3 mL (0.083 %) nebulizer solution, 2.5 mg ., Disp: , Rfl: ALPRAZolam (XANAX) 0.5 MG tablet, Take 1 (one) tablet (0.5 mg total) by mouth 3 (three) times a day as needed for sleep or anxiety ., Disp: 90 tablet, Rfl: 1 cloNIDine HCL (CATAPRES) 0.2 MG tablet, Take 1 (one) tablet (0.2 mg total) by mouth nightly ., Disp: 30 tablet, Rfl: 5 lamoTRIgine (LAMICTAL) 25 MG tablet, , Disp: , Rfl: pantoprazole (PROTONIX) 40 MG tablet, Take 40 mg by mouth ., Disp: , Rfl: polyethylene glycol (MIRALAX) 17 gram powder, MIX 1 PACKET IN DRINK AND TAKE ONCE DAILY, Disp: , Rfl: risperiDONE (RISPERDAL) 4 MG tablet, Take 1 (one) tablet (4 mg total) by mouth daily ., Disp: 30 tablet, Rfl: 5 Spiriva Respimat 2.5 mcg/actuation Mist, TAKE 2 PUFFS BY MOUTH EVERY DAY, Disp: , Rfl: PSYCHIATRIC EXAMINATION Constitutional BP 94/68 (BP Location: Right arm, Patient Position: Sitting, BP Cuff Size: Adult) Pulse 84 Resp 16 Ht 5' 8.5 Wt 52.6 kg (116 lb) SpO2 96% BMI 17.38 kg/m Musculoskeletal Muscle strength and tone:Normal Gait and station: normal Psychiatric Grooming & Hygiene: casually dressed and age appropriate General Behavior: Patient is engaged and cooperative need some redirections Psychomotor Activity: Mild psychomotor agitation Speech: Hyperverbal Flow to Thought: Racing thoughts/flight of ideas Thought Associations: Intact Content of Thought: No evidence of suicidal idealizations / homicidal idealizations / delusions / obsessions Mood: Depressed/irritable Affect: Restricted Insight: fair Judgment: fair Orientation: alert and oriented to person, place, time Memory: Recent intact Attention: Distractible Concentration: Reduced Language: Average Fund of Knowledge: Average ASSESSMENT AND PLAN: Follow-up plan was discussed with patient. Impression/ Plan: Bipolar disorder type I, mixed, moderate with anxiety distress Panic disorder with agoraphobia PTSD: Chronic Alcohol use disorder: In remission Global assessment of functionin Recommendations: Treatment Plan: Pharmacological management: Alternative medication plans were discussed with the patient/guardian. All relevant side effects and potential adverse effects were discussed with the patient/guardian. Standard cautions and potential benefits were discussed. FDA label and OFF label uses of medications were discussed. Patient/Guardian consented to the start/continuation of the following: Continue risperidone 4 mg daily at bedtime Continue clonidine 0.2 mg daily at bedtime Start lamotrigine titration, 25 mg 1 daily x2 weeks, then 50 mg daily x2 weeks, then 200 mg daily thereafter. Watch for rash/fever. Du-Mir's rash was discussed. Patient verbalized understanding Continue Xanax 0.5 mg 3 times daily as needed anxiety Will monitor side effects and progress and adjust medications appropriately Crisis Intervention plan was discussed and agreed upon. Patient/Guardian will call 911 in case of emergency. Emergency contact information was provided to the patient/guardian. Laboratory and other tests: See orders. Psychotherapy: continue with current provider Follow up as scheduled or return early if needed. School or community referral: none Treatment Goals and Objectives discussed. Other Referrals/Consults/Psychologica l Testing: none Robb Evans documented in this encounter [facility] Evaluation note Diagnosis Generalized anxiety disorder- Primary Moderate mixed bipolar I disorder (HCC) Bipolar I disorder, most recent episode (or current) mixed, moderate Long-term use of high-risk medication [facility] Diagnosis Moderate mixed bipolar I disorder (HCC)- Primary Bipolar I disorder, most recent episode (or current) mixed, moderate Generalized anxiety disorder Long-term use of high-risk medication [facility] Generalized anxiety disorder [facility] Diagnosis Bipolar 1 disorder, mixed, mild (HCC)- Primary Generalized anxiety disorder Long-term use of high-risk medication [facility] Diagnosis Generalized anxiety disorder- Primary Bipolar 1 disorder, mixed, mild (HCC) Long-term use of high-risk medication Post traumatic stress disorder (PTSD) [facility] Diagnosis Bipolar 1 disorder, mixed, mild (HCC)- Primary Generalized anxiety disorder Long-term use of high-risk medication [facility] Diagnosis APPOINTMENT CANCELLED- Primary documented in this encounter [facility] note* Diagnosis Nausea and vomiting, unspecified vomiting type- Primary Left upper quadrant abdominal pain Weight loss Loss of [facility] Diagnosis Nausea and vomiting, unspecified vomiting type Left upper quadrant abdominal pain [facility]* Diagnosis Nausea- Primary Nausea alone Weight loss Loss of weight 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, jejunum, and ileum [facility]* Diagnosis Abdominal pain, unspecified abdominal location- Primary [facility] Diagnosis Intestinal polyposis- Primary Benign neoplasm of colon documented in this encounter [facility] note* Diagnosis Severe protein-calorie malnutrition (HCC)- Primary Other severe protein-calorie malnutrition 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* Diagnosis Generalized anxiety disorder documented in this encounter [facility] note* Diagnosis Generalized anxiety disorder documented in this encounter 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 note* Diagnosis Severe malnutrition (HCC)- Primary 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 [facility] for referral (narrative)* Outpatient Procedure (Routine) - Closed Specialty Diagnoses / Procedures Referred By Shane titus Referred To Contact [facility] Diagnoses Nausea and vomiting, unspecified vomiting type Left upper quadrant abdominal pain Procedures EGD DIAGNOSTIC ESOPHAGOGASTRODUODENOSC OPY TRANSORAL DIAGNOSTIC Anastasiya Mosqueda PA-C [address] [place] [address] [facility] [id number] [place] [id number] Referral ID Status Reason Start Date Expiration Date V isits Requested Visits Authorized [id number] Closed Auto-Generate d Referral 12/15/2021 12/15/2022 1 1 [facility] for referral (narrative)* Outpatient Procedure (Routine) - Pending Review Specialty Diagnoses / Procedures Referred By Shane titus Referred To Contact [facility] Diagnoses Small bowel polyp Procedures CAPSULE ENDOSCOPY SMALL BOWEL GI TRC IMG INTRALUMINAL ESOPHAGUS-ILEUM W/I&R Anastasiya Mosqueda PA-C [address] [place] [address] [facility] [address] [place] [address] Referral ID Status Reason Start Date Expiration Date Visits Requested Visits Authorized [id number] Pending Review Auto-Generat ed Referral 2 01/05/2023 1 1 * Diagnostic Procedure Only (Routine) - Pending Review Specialty Diagnoses / Procedures Referred By Contac t Referred To Contact [facility] Diagnoses Nausea Procedures NM GASTRIC EMPTYING SOLID GASTRIC EMPTYING STUDY Anastasiya Mosqueda PA-C [address] [place] [address] [facility] [address] [place] [address] Referral ID Status Reason Start Date Expiration Date Visits Requested Visits Authorized [id number] Pending Review Auto-Generat ed Referral 2 02/04/2023 1 1 [facility] for referral (narrative)* Outpatient Procedure (Routine) - Pending Review Specialty Diagnoses / Procedures Referred By Shane t Referred To Contact [facility] Diagnoses 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) Procedures ENTEROSCOPY ENDOSCOPY UPPER SMALL INTESTINE Tiffani Morales MD [address] [place] [address] [facility] [place] [address] [place] [address] Referral ID Status Reason Start Date Expiration Date Visits Requested Visits Authorized [id number] Pending Review Auto-Generat ed Referral 2 03/02/2023 1 1 * MRI/CT (Routine) - Pending Review Specialty Diagnoses / Procedures Referred By Shane t Referred To Contact CT IMAGING Diagnoses 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) Weight loss Procedures CT ENTEROGRAPHY W IVCON CT ABD & PELVIS W/CONTRAST Tiffani Morales MD [address] [place] [address] Ct [facility] Referral ID Status Reason Start Date Expiration Date Visits Requested Visits Authorized [id number] Pending Review Auto-Generat ed Referral 2 04/01/2023 1 1 [facility] for referral (narrative)* Outpatient Procedure (Routine) - Closed Specialty Diagnoses / Procedures Referred By Shane t [facility] Diagnoses 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) Procedures ENTEROSCOPY ENDOSCOPY UPPER SMALL INTESTINE Tiffani Morales MD [address] [place] [address] [address] Referral ID Status Reason Start Date Expiration Date V isits Requested Visits Authorized [id number] Closed Auto-Generate d Referral 03/02/2022 03/02/2023 1 1 [facility] for visit Narrative* Outpatient Procedure (Routine) - Closed Specialty Diagnoses / Procedures [facility] Diagnoses Nausea and vomiting, unspecified vomiting type Left upper quadrant abdominal pain Procedures EGD DIAGNOSTIC ESOPHAGOGASTRODUODENOSC OPY TRANSORAL DIAGNOSTIC Anastasiya Mosqueda PA-C [address] [place] [id number] [address] [address] Referral ID Status Reason Start Date Expiration Date V isits Requested Visits Authorized [id number] Closed Auto-Generate d Referral 12/15/2021 12/15/2022 1 1 [facility] for visit Narrative* Outpatient Procedure (Routine) - Closed Specialty Diagnoses / Procedures [facility] Diagnoses 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) Procedures ENTEROSCOPY ENDOSCOPY UPPER SMALL INTESTINE Tiffani Morales MD [address] [place] [address] [address] Referral ID Status Reason Start Date Expiration Date V isits Requested Visits Authorized [id number] Closed Auto-Generate d Referral 03/02/2022 03/02/2023 1 1 [facility] Advance Directives No Advanced Directives Records FoundDocuments on File Type Date Recorded Patient Competitive Intelligence Analyst Expl anation Advance Directives and Living Will Summary Purpose Family History No Family History Records FoundNo Family History Records FoundNo Family History Records FoundNo Family History Records Found Reason for Referral Specialty Diagnoses / Procedures Referred By Shane titus Referred To Contact Nutrition Diagnoses Nausea and vomiting, unspecified vomiting type Weight loss Procedures CONSULT TO NUTRITION THERAPY OFFICE/OUTPATIENT [facility] HIGH MDM 60-74 MINUTES Anastasiya Mosqueda PA-C [address] [place] [address] Referral ID Status Reason Start Date Expiration Date Visits Requested Visits Authorized [id number] Authorized PCP Requested Referral 12/15/2021 12/15/2022 1 1 Specialty Diagnoses / Procedures Referred By Shane titus Referred To Contact [facility] Diagnoses Nausea and vomiting, unspecified vomiting type Left upper quadrant abdominal pain Procedures EGD DIAGNOSTIC ESOPHAGOGASTRODUODENOSC OPY TRANSORAL DIAGNOSTIC Anastasiya Mosqueda PA-C [address] [place] [address] [facility] [place] [address] [place] [address] Referral ID Status Reason Start Date Expiration Date Visits Requested Visits Authorized [id number] Authorized Auto-Generat ed Referral 12/15/2021 12/15/2022 1 1 Medications Administered Section Inactive Administered Medications - up to 3 most recent administrations Medication Order MAR Action Action Date Dose Rate Site benzocaine 20% (TOPEX) TOPICAL, X (OR/PROCEDURE) PRN, Starting on Sat01/01/22 at 1606, Until Sat01/01/22 at 1606, Intraprocedure Given 01/01/2022 4:06 PM EDT 1 [place] NaCl 0.9% iv infusion 30 mL/hr, INTRAVENOUS, CONTINUOUS, Starting on Sat01/01/22 at 1600, Until Sat01/02/22 at 0407, Preprocedure New Bag/Syringe/Bottle 01/01/2022 3:58 PM EDT 30 mL/hr 30 mL/hr Additional Source Comments Reason for Visit (unrecogniz ed section and content) Reason Comments Medication Management Reason Onset Date Comments Medication Refill 12/29/2020 Reason Onset Date Comments Medication Refill 01/31/2021 Reason Onset Date Comments Medication Refill 04/03/2021 Reason Onset Date Comments Medication Refill 09/15/2021 Reason Onset Date Comments Medication Refill 10/03/2021 Reason Comments Appointment Reason Comments Appointment Cancelled Reason Comments Abdominal Pain Nausea Reason Comments Results Reason Comments Patient Question Returning Patient's Call Results Reason Comments Results Post-EGD Reason Onset Date Comments Medication Refill 01/16/2022 Reason Comments Refill Request Reason Comments Malnutrition Reason Onset Date Comments Medication Refill 03/09/2022 Reason Comments Appointment Confirmation Reason Onset Date Comments Medication Refill 04/20/2022 Reason Comments Malnutrition Reason Comments Patient Question Care Teams (unrecognized sec tion and content) Dust Box Tender Relationship Specialty Start Date End Date Cristina Iqbal, CLINICAL PHARMACOLOGIST [address] [place] [address] PCP - General Nurse Practitioner 07/18/20 Dust Box Tender Relationship Specialty Start Date End Date Cristina Iqbal, CLINICAL PHARMACOLOGIST [address] [place] [address] PCP - General Nurse Practitioner 07/18/20 Dust Box Tender Relationship Specialty Start Date End Date Cristina Iqbal, CLINICAL PHARMACOLOGIST [address] [place] [address] PCP - General Nurse Practitioner 07/18/20 Dust Box Tender Relationship Specialty Start Date End Date Cristina Iqbal, CLINICAL PHARMACOLOGIST [address] [place] [address] PCP - General Nurse Practitioner 07/18/20 Dust Box Tender Relationship Specialty Start Date End Date Cristina Iqbal CLINICAL PHARMACOLOGIST [address] [place] [address] PCP - General Nurse Practitioner 07/18/20 Dust Box Tender Relationship Specialty Start Date End Date Cristina Iqbal, CLINICAL PHARMACOLOGIST [address] [place] [address] PCP - General Family Medicine 10/15/12 Dust Box Tender Relationship Specialty Start Date End Date Cristina Iqbal CLINICAL PHARMACOLOGIST [address] [place] [address] PCP - General Family Medicine 10/15/12 Dust Box Tender Relationship Specialty Start Date End Date Cristina Iqbal, CLINICAL PHARMACOLOGIST [address] [place] [address] PCP - General Family Medicine 10/15/12 Dust Box Tender Relationship Specialty Start Date End Date Cristina Iqbal, CLINICAL PHARMACOLOGIST [address] [place] [address] PCP - General Family Medicine 10/15/12 Dust Box Tender Relationship Specialty Start Date End Date Cristina Iqbal, CLINICAL PHARMACOLOGIST [address] [place] [address] PCP - General Family Medicine 10/15/12 Dust Box Tender Relationship Specialty Start Date End Date Cristina Iqbal, CLINICAL PHARMACOLOGIST [address] [place] [address] PCP - General Family Medicine 10/15/12 Dust Box Tender Relationship Specialty Start Date End Date Cristina Iqbal, CLINICAL PHARMACOLOGIST [address] [place] [address] PCP - General Family Medicine 10/15/12 Dust Box Tender Relationship Specialty Start Date End Date Cristina Iqbal, CLINICAL PHARMACOLOGIST [address] [place] [address] PCP - General Family Medicine 10/15/12 Dust Box Tender Relationship Specialty Start Date End Date Cristina Iqbal, CLINICAL PHARMACOLOGIST [address] [place] [address] PCP - General Nurse Practitioner 07/18/20 Dust Box Tender Relationship Specialty Start Date End Date Cristina Iqbal, CLINICAL PHARMACOLOGIST [address] [place] [address] PCP - General Family Medicine 10/15/12 Dust Box Tender Relationship Specialty Start Date End Date Cristina Iqbal, CLINICAL PHARMACOLOGIST [address] [place] [address] PCP - General Family Medicine 10/15/12 Dust Box Tender Relationship Specialty Start Date End Date Cristina Iqbal, CLINICAL PHARMACOLOGIST [address] [place] [address] PCP - General Family Medicine 10/15/12 Dust Box Tender Relationship Specialty Start Date End Date Cristina Iqbal, CLINICAL PHARMACOLOGIST [address] [place] [address] PCP - General Family Medicine 10/15/12 Dust Box Tender Relationship Specialty Start Date End Date Cristina Iqbal, CLINICAL PHARMACOLOGIST [address] [place] [address] PCP - General Nurse Practitioner 07/18/20 Dust Box Tender Relationship Specialty Start Date End Date Cristina Iqbal, CLINICAL PHARMACOLOGIST [address] [place] [address] PCP - General Nurse Practitioner 07/18/20 Dust Box Tender Relationship Specialty Start Date End Date Cristina Iqbal, CLINICAL PHARMACOLOGIST [address] [place] [address] PCP - General Family Medicine 10/15/12 Dust Box Tender Relationship Specialty Start Date End Date Cristina Iqbal, CLINICAL PHARMACOLOGIST [address] [place] [address] PCP - General Family Medicine 10/15/12 Dust Box Tender Relationship Specialty Start Date End Date Cristina Iqbal, CLINICAL PHARMACOLOGIST [address] [place] [address] PCP - General Family Medicine 10/15/12 Dust Box Tender Relationship Specialty Start Date End Date Cristina Iqbal, CLINICAL PHARMACOLOGIST [address] [place] [address] PCP - General Family Medicine 10/15/12 INFORMATION SOURCE (unrecogn ized section and content) DATE CREATED AUTHOR [facility] DATE CREATED AUTHOR AUTHOR'S ORGANIZ ATION 12/20/2021 [facility] DATE CREATED AUTHOR AUTHOR'S ORGANIZ ATION 05/12/2022 [facility] DATE CREATED AUTHOR AUTHOR'S ORGANIZ ATION 05/31/2022 [facility] Comments (unrecognize d section and content) In the event this informatio n is protected by the Federal Confidentiality of Alcohol and Drug Abuse Patient Records regulations: The Federal rules restrict any use of the information to criminally investigate or prosecute any alcohol or drug abuse patient.[facility] the event this information is protected by the Federal Confidentiality of Alcohol and Drug Abuse Patient Records regulations: The Federal rules restrict any use of the information to criminally investigate or prosecute any alcohol or drug abuse patient.[facility] the event this information is protected by the Federal Confidentiality of Alcohol and Drug Abuse Patient Records regulations: The Federal rules restrict any use of the information to criminally investigate or prosecute any alcohol or drug abuse patient.[facility] the event this information is protected by the Federal Confidentiality of Alcohol and Drug Abuse Patient Records regulations: The Federal rules restrict any use of the information to criminally investigate or prosecute any alcohol or drug abuse patient.[facility] the event this information is protected by the Federal Confidentiality of Alcohol and Drug Abuse Patient Records regulations: The Federal rules restrict any use of the information to criminally investigate or prosecute any alcohol or drug abuse patient.[facility] the event this information is protected by the Federal Confidentiality of Alcohol and Drug Abuse Patient Records regulations: The Federal rules restrict any use of the information to criminally investigate or prosecute any alcohol or drug abuse patient.[facility] the event this information is protected by the Federal Confidentiality of Alcohol and Drug Abuse Patient Records regulations: The Federal rules restrict any use of the information to criminally investigate or prosecute any alcohol or drug abuse patient.[facility] the event this information is protected by the Federal Confidentiality of Alcohol and Drug Abuse Patient Records regulations: The Federal rules restrict any use of the information to criminally investigate or prosecute any alcohol or drug abuse patient.[facility] the event this information is protected by the Federal Confidentiality of Alcohol and Drug Abuse Patient Records regulations: The Federal rules restrict any use of the information to criminally investigate or prosecute any alcohol or drug abuse patient.[facility] the event this information is protected by the Federal Confidentiality of Alcohol and Drug Abuse Patient Records regulations: The Federal rules restrict any use of the information to criminally investigate or prosecute any alcohol or drug abuse patient.[facility] the event this information is protected by the Federal Confidentiality of Alcohol and Drug Abuse Patient Records regulations: The Federal rules restrict any use of the information to criminally investigate or prosecute any alcohol or drug abuse patient.[facility] the event this information is protected by the Federal Confidentiality of Alcohol and Drug Abuse Patient Records regulations: The Federal rules restrict any use of the information to criminally investigate or prosecute any alcohol or drug abuse patient.[facility] the event this information is protected by the Federal Confidentiality of Alcohol and Drug Abuse Patient Records regulations: The Federal rules restrict any use of the information to criminally investigate or prosecute any alcohol or drug abuse patient.[facility] the event this information is protected by the Federal Confidentiality of Alcohol and Drug Abuse Patient Records regulations: The Federal rules restrict any use of the information to criminally investigate or prosecute any alcohol or drug abuse patient.[facility] the event this information is protected by the Federal Confidentiality of Alcohol and Drug Abuse Patient Records regulations: The Federal rules restrict any use of the information to criminally investigate or prosecute any alcohol or drug abuse patient.[facility] the event this information is protected by the Federal Confidentiality of Alcohol and Drug Abuse Patient Records regulations: The Federal rules restrict any use of the information to criminally investigate or prosecute any alcohol or drug abuse patient.[facility] the event this information is protected by the Federal Confidentiality of Alcohol and Drug Abuse Patient Records regulations: The Federal rules restrict any use of the information to criminally investigate or prosecute any alcohol or drug abuse patient.[facility] the event this information is protected by the Federal Confidentiality of Alcohol and Drug Abuse Patient Records regulations: The Federal rules restrict any use of the information to criminally investigate or prosecute any alcohol or drug abuse patient.[facility] the event this information is protected by the Federal Confidentiality of Alcohol and Drug Abuse Patient Records regulations: The Federal rules restrict any use of the information to criminally investigate or prosecute any alcohol or drug abuse patient.[facility] Hospital[facility] the event this information is protected by the Federal Confidentiality of Alcohol and Drug Abuse Patient Records regulations: The Federal rules restrict any use of the information to criminally investigate or prosecute any alcohol or drug abuse patient.[facility] Hospital[facility] the event this information is protected by the Federal Confidentiality of Alcohol and Drug Abuse Patient Records regulations: The Federal rules restrict any use of the information to criminally investigate or prosecute any alcohol or drug abuse patient.[facility] FOR RECORDS PERTAINING TO PATIENTS WHO ARE OR HAVE BEEN ENROLLED IN A CHEMICAL DEPENDENCY/SUBSTANCEABUSE PROGRAM, SOME INFORMATION MAY BE OMITTED. This clinical summary was aggregated from multiple sources. Caution should be exercised in using it in the provision of clinical care. This summary normalizes information from multiple sources, and as a consequence, information in this document may materially change the coding, format and clinical context of patient data. In addition, data may be omitted in some cases. CLINICAL DECISIONS SHOULD BE BASED ON THE PRIMARY CLINICAL RECORDS. [facility]. provides no warranty or guarantee of the accuracy or completeness of information in this document.
[2023-03-07 17:00] LABS: Alanine Aminotransferase 14 U/L (14-59); Albumin Globulin Ratio 1.1; Albumin Level 3.9 g/dL (3.4-5.0); Alkaline Phosphatase 91 U/L (46-116); Anion Gap 13.1; Aspartate Amino Transferase 23 U/L (15-37); BUN Creatinine Ratio 7.6; Bilirubin Total 0.4 mg/dL (0.2-1.0); Calcium 9.3 mg/dL (8.5-10.1); Carbon Dioxide 27.1 mmol/L (21.0-32.0); Chloride 104 mmol/L (98-107); Chol HDL Ratio 4.3; Cholesterol 234 mg/dL (<=200); Estimated GFR (African America >60 (>=60); Estimated GFR (Non-African Ame >60 (>=60); Globulin 3.5 g/dL; Glucose 96 mg/dL (74-106); HDL Cholesterol 54 mg/dL (40-60); Potassium 4.2 mmol/L (3.5-5.1); Sodium 140 mmol/L (136-145); Total Protein 7.4 g/dL (6.4-8.2); Triglycerides 92 mg/dL (<=150); VLDL CHOLESTEROL 18.4 mg/dL
[2023-03-09 08:10] LABS: HCV Ab Non Reactive (Non Reactive); HIV Ab/p24 Ag Screen Non Reactive (Non Reactive)
== END 2023-03-07 15:51 | disposition home or self-care (01) ==
LOC: LAB 15:50
PROVIDERS: PCP Nurse Practitioner Primary Care; Visit Provider Nurse Practitioner Primary Care
DX: Z00.00 Encounter for general adult medical examination without abnormal findings (principal); Z13.6 Encounter for screening for cardiovascular disorders; Z11.59 Encounter for screening for other viral diseases; Z11.4 Encounter for screening for human immunodeficiency virus [HIV]; Z13.29 Encounter for screening for other suspected endocrine disorder
CPT/HCPCS: 36415; 80053; 80061; 84443; 86803; 87389

== ENCOUNTER 2024-02-01 15:12 | Emergency (ER) | payer OTHER, SELFPAY ==
[2024-02-01 15:16] VITALS: BP 156/88; PULSE 109; TEMP 36.6; O2SAT 97; BMI 22.8
--- NOTE | 2024-02-01 15:22 | XR_ITS ---
The [address] [address] Patient Name: SAI BURRIS MRN: [id number] date: 1970 Sex: F Assigned Patient Location: ER Current Patient Location: Accession/Order Number: [id number] Exam Date: 02/01/2024 15:54 Report Date: 02/01/2024 17:46 At the request of: ROBBY MCNAIR Procedure: XR chest 2V EXAM: XR chest 2V HISTORY: sob COMPARISON: 12/11/2021 and earlier. TECHNIQUE: PA, lateral chest x-ray. FINDINGS: Lungs stable, linear density projecting over the midthoracic spine on the lateral view probable scar. No infiltrate or edema or other acute process. Normal heart size and mediastinal contour. No pleural effusion. XR/XR chest 2V IMPRESSION: Stable chest x-ray, no acute findings. Electronically authenticated by: DARRYL ALVA Date: 02/01/2024 17:46
--- OUTSIDE RECORDS SUMMARY | 2024-02-01 15:23 | XMS_ITS | CCD ---
Author Organization [facility] Care Team Providers Care Casing Builder Name Role Phone Cristina Iqabl CNP Primary Care Provider [phone] Vipin Pina Attending Unavailable Roshni Werner Attending Unavailable Cristina Iqbal CNP Primary Care Provider CRISTINA IQBAL Primary Care Unavailable KENNEDYOT, UPENDER Attending Unavailable CRISTINA IQBAL Primary Care Unavailable JENNY, ALESSANDROENDER Attending Unavailable CRISTINA IQBAL Primary Care Unavailable KENNEDYOT, ALESSANDROENDER Attending Unavailable CRISTINA IQBAL Primary Care Unavailable GEHLOT, ALESSANDROENDER Attending Unavailable Cristina Iqbal CNP Primary Care Provider Cristina Iqbal CNP Primary Care Provider Cristina Iqbal CNP Primary Care Provider CRISTINA IQBAL Primary Care Unavailable KIRSTEN DALTON Attending Unavailable CRISTINA IQBAL Primary Care Unavailable MUKHJACOBI, ANASTASIYA Referring Unavailable MUELLAI, ANASTASIYA Attending Unavailable CRISTINA IQBAL Primary Care Unavailable JAYLIN, ANASTASIYA Attending Unavailable CRISTINA IQBAL Referring Unavailable ROGER, CRISTINA VICKERS Primary Care Unavailable ROGER, CRISTINA VICKERS Primary Care Unavailable CRISTINA IQBAL Referring Unavailable TIFFANI MORALES Attending Unavailable FREDERICK CHAVES Attending Unavailable CRISTINA IQBAL Primary Care Unavailable TIFFANI MORALES Referring Unavailable ROGER, CRISTINA VICKERS Primary Care Unavailable TIFFANI MORALES Referring Unavailable TIFFANI MORALES Attending Unavailable AICHHOLZ, CRISTINA ALEE Primary Care Unavailable YAN GARCIA JR Attending Unavailable AICHHOLZ, CRISTINA ALEE Primary Care Unavailable ANASTASIYA MOSQUEDA Referring Unavailable AICHOLZ, [facility] CRISTINA Primary Care Unavailable ANNELISE FRAZIER Admitting Unavailable ANNELISE FRAZIER Attending Unavailable ANNELISE FRAZIER Consulting Unavailable BELEN REGAN Consulting Unavailable IRINA SEGURA Admitting Unavailable IRINA SEGURA Attending Unavailable AICHOLZ, SALES TRAINING COORDINATOR CRISTINA Primary Care Unavailable MISC, DR DECKER Consulting Unavailable GEHLOT, UPENDER Admitting Unavailable GEHLOT, UPENDER Attending Unavailable AICHOLZ, SALES TRAINING COORDINATOR CRISTINA Referring Unavailable AICHHOLZ, [facility] CRISTINA Primary Care Unavailable GEHLOT, UPENDER Consulting Unavailable BENEDICT, DR RYDER Admitting Unavailable BENEDICT, DR RYDER Attending Unavailable AICHOLZ, [facility] CRISTINA Primary Care Unavailable BENEDICT, DR RYDER Consulting Unavailable MISC, DR DECKER Admitting Unavailable MISC, DR DECKER Attending Unavailable AICHOLZ, [facility] CRISTINA Primary Care Unavailable MISC, DR DECKER Consulting Unavailable AICHOLZ, [facility] CRISTINA Primary Care Unavailable PAY ., DR ZULUAGA Admitting Unavailable PAY ., DR ZULUAGA Attending Unavailable PAY ., DR ZULUAGA Consulting Unavailable CHITRA ALFARO Consulting Unavailable AICHOLZ, [facility] CRISTINA Primary Care Unavailable PAY ., DR ZULUAGA Admitting Unavailable PAY ., DR ZULUAGA Attending Unavailable ZIEBER, DR RYDER R Consulting Unavailable PAY ., DR ZULUAGA Consulting Unavailable AICHOLZ, [facility] CRISTINA Primary Care Unavailable GELA WESLEY Admitting Unavailable GELA WESLEY Attending Unavailable BARBI HENRY Consulting Unavailable GELA WESLEY Consulting Unavailable [facility] Primary Care Physician Lala Zarco Primary Care Physician [phone] Sandoval Rae Attending Unavailable [facility] Unavailable Lala Zarco Attending Unavailable Lala Zarco Attending Unavailable [facility] Primary Care Unavailable Sandoval Rae Admitting Unavailable Sandoval Rae Attending Unavailable Sandoval Rae Referring Unavailable Medications Current Medications Medication Drug Class(es) Dates Sig (Normalized) Sig (Original) albuterol 0.83 mg/ml inhalation solution (20 sources) beta2-Adrenergic Agonist Start: 07-16-2019 albuterol (PROVENTIL) 2.5 mg /3 mL (0.083 %) nebulizer solution 2.5 mg . 0 07/16/2019 Active Start: 07-16-2019 take 2.5 mg by inhal ation every six hours as needed albuterol 0.083% Inh Misty 3 mL 2.5 mg, 3 mL, Inhalation, q6hr, Refill(s) 12, Q6H and PRN Start Date: 07/16/19 Status: Ordered ALPRAZolam 0.5 mg oral tablet (20 sources) Benzodiazepine Start: 05-31-2021 End: 07-11-2022 take 1 tablet by mouth three times daily as needed for anxiety Xanax 0.5 mg Tab 0.5 mg = 1 tab(s), Oral, TID, PRN for anxiety, # 12 tab(s), Refills(s) 0 Start Date: 12/03/21 Status: Ordered Start: 04-03-2021 take 1 tablet by shahzad three times daily as needed for anxiety [...] tablet 0 03/01/2021 04/03/2021 Discontinued (Reorder) Start: 05-24-2020 End: 08-22-2020 take 1 tablet by mouth three times daily as needed for anxiety ALPRAZolam (XANAX) 0.5 MG tablet Indications: Generalized anxiety disorder Take 1 (one) tablet (0.5 mg total) by mouth 3 (three) times a day as needed for sleep or anxiety . 90 tablet 1 08/22/2020 Active Comment on above: Take 0.5 mg by mouth three times daily as needed. ARIPiprazole 5 mg oral tablet (2 sources) Atypical Antipsychotic Start: 09-28-19 take 1 tablet by mouth once daily ARIPiprazole (ABILIFY) 5 MG tablet Take 1 (one) tablet (5 mg total) by mouth daily . 30 tablet 2 09/27/2021 Active cephalexin 500 mg oral capsule (1 source) Cephalosporin Antibacterial Start: 09-24-19 End: 09-29-19 take 1 capsule by mouth every twelve hours Keflex 500 mg Cap 500 mg = 1 cap(s), Oral, q12hr, X 5 day(s), # 10 cap(s), Refills(s) 0, Pharmacy: [facility]/pharmacy #[id number], 172, cm, 09/24/23 13:02:00 EDT, Height/Length Dosing, 61.2, kg, 09/24/23 13:02:00 EDT, Weight Dosing Start Date: 09/24/23 Stop Date: 09/29/23 Status: Ordered cholestyramine resin 4000 mg powder for oral suspension (2 sources) Bile Acid Sequestrant Start: 01-16-20 Questran 4 g/9 g oral powder = 1 packet(s), Oral, BID, # 60 EA, Refills(s) 2, Pharmacy: [facility]/pharmacy #[id number], 169, cm, 01/16/24 10:14:00 EDT, Height/Length Dosing, 63.9, kg, 01/16/24 10:14:00 EDT, Weight Dosing Start Date: 01/16/24 Status: Ordered colestipol hydrochloride 1000 mg oral tablet (1 source) Bile Acid Sequestrant Start: 01-23-20 take 2 tablets by mouth twice daily colestipol 1 g Tab 2 gm = 2 tab(s), Oral, BID, with a full glass of water, # 120 tab(s), Refills(s) 1, Pharmacy: [facility]/pharmacy #[id number], 169, cm, 01/16/24 10:14:00 EDT, Height/Length Dosing, 63.9, kg, 01/16/24 10:14:00 EDT, Weight Dosing Start Date: 01/23/24 Status: Ordered enteric contrast (will be provided with radiology test) (1 source) Start: 03-02-20 End: 12-17-20 22 enteric contrast (will be provided with radiology [...] Contrast as designated per enteric contrast guidelines. hydrOXYzine hydrochloride 50 mg oral tablet (10 sources) Antihistamine Start: 04-26-19 take 1 tablet by mouth three times daily as needed for anxiety hydrOXYzine hydrochloride 50 mg oral tablet 50 mg = 1 tab(s), Oral, TID, PRN as needed for anxiety, # 30 tab(s), Refills(s) 0, Pharmacy: [facility]/pharmacy #[id number], 173, cm, 04/26/20 13:07:00 EST, Height/Length Dosing, 52.8, kg, 04/26/20 13:07:00 EST, Weight Dosing Start Date: 04/26/20 Status: Ordered End: 01-03-2022 take 1 capsule by mouth every eight hours as needed hydrOXYzine pamoate 25 mg capsule Take 25 mg by mouth three times daily as needed. 0 01/03/2022 Discontinued (Course of therapy completed) Comment on above: Take 25 mg by mouth three times daily as needed. iv contrast (will be provided with radiology test) (1 source) Start: 03-02-20 End: 03-03-20 iv contrast (will be provided with radiology [...] in the CT contrast administration guidelines link. lamoTRIgine 25 mg oral tablet (20 sources) Mood Stabilizer, Anti-epileptic Agent Start: 11-27-19 take 1 tablet by mouth once daily lamotrigine 25 mg Tab See Instructions, TAKE 1 TABLET BY MOUTH EVERY DAY IN THE AFTERNOON, # 30 tab(s), Refills(s) 0, Pharmacy: [facility] STORE [id number], 169.7, cm, 11/26/23 15:32:00 EDT, Height/Length Dosing, 62.1, kg, 11/26/23 15:32:00 EDT, Weight Dosing Start Date: 11/27/23 Status: Ordered Start: 12-19-2021 lamoTRIgine (L AMICTAL) 200 mg tablet Take 200 mg by [...] above: Take 200 mg by mouth . mirtazapine 7.5 mg oral tablet (2 sources) Start: take 1 tablet by mouth at bedtime mirtazapine 7.5 mg oral tablet 7.5 mg = 1 tab(s), Oral, Bedtime, # 30 tab(s), Refills(s) 0, Pharmacy: [facility]/pharmacy #[id number], 169.7, cm, 10/03/23 9:38:00 EDT, Height/Length Dosing, 62.5, kg, 10/03/23 9:38:00 EDT, Weight Dosing Start Date: 10/31/23 Status: Ordered OLANZapine 5 mg oral tablet (20 sources) Atypical Antipsychotic Start: take 1 tablet by mouth once daily [...] mg by mouth d aily at bedtime. omeprazole 20 mg delayed release oral capsule (2 sources) Proton Pump Inhibitor Start: 01-20-2024 take 1 capsule by mouth once daily omeprazole 20 mg Cap-DR See Instructions, TAKE 1 CAPSULE BY MOUTH EVERY DAY, # 30 cap(s), Refills(s) 0, Pharmacy: [facility] STORE [id number], 169, cm, 01/16/24 10:14:00 EDT, Height/Length Dosing, 63.9, kg, 01/16/24 10:14:00 EDT, Weight Dosing Start Date: 01/20/24 Status: Ordered Start: 12-04-2023 take 1 capsule by [facility] once daily omeprazole 20 mg Cap-DR See Instructions, TAKE 1 CAPSULE BY MOUTH EVERY DAY, # 30 cap(s), Refills(s) 0, Pharmacy: [facility]/pharmacy #[id number], 169.7, cm, 11/26/23 15:32:00 EDT, Height/Length Dosing, 62.1, kg, 11/26/23 15:32:00 EDT, Weight Dosing Start Date: 12/04/23 Status: Ordered ondansetron 4 mg disintegrating oral tablet (20 sources) Serotonin-3 Receptor Antagonist Start: 12-20-2023 take 1 tablet by mouth every six hours as needed for nausea ondansetron 4 mg Dis Tab 4 mg = 1 tab(s), Oral, q6hr, PRN Nausea/Vomiting, # 30 tab(s), Refills(s) 0, Pharmacy: [facility]/pharmacy #[id number], 169.7, cm, 11/26/23 15:32:00 EDT, Height/Length Dosing, 62.1, kg, 11/26/23 15:32:00 EDT, Weight Dosing Start Date: 12/20/23 Status: Ordered Start: 03-01-2022 End: 11-06-2022 take 1 tablet by mouth every twelve [...] 30 tablet 0 02/16/2022 03/02/2022 Active Start: 04-26-2020 End: 02-04-2022 take 1 tablet by mouth every eight hours as needed for nausea Zofran 4 mg Tab 4 mg = 1 tab(s), Oral, q8hr, PRN Nausea, # 10 tab(s), Refills(s) 0, [id number], cm, 04/26/20 13:07:00 EST, Height/Length Dosing, 52.8, kg, 04/26/20 13:07:00 EST, Weight Dosing Start Date: 04/26/20 Status: Ordered Comment on above: Take 4 mg by [...] tablet (20 sources) Proton Pump Inhibitor Start: 07-16-2019 take 1 tablet by mouth once daily Protonix 40 mg Tab-DR 40 mg = 1 tab(s), Oral, Daily, # 30 tab(s), Refills(s) 0, Pharmacy: [facility]/pharmacy #[id number], 172.9, cm, 12/03/21 10:15:00 EDT, Height/Length Dosing, 46.2, kg, 12/03/21 10:15:00 EDT, Weight Dosing Start Date: 12/03/21 Status: Ordered Start: 07-16-2019 take 1 tablet by shahzad th once daily pantoprazole 40 mg Oral EC Tab 40 mg = 1 tab(s), Oral, Daily, # 30 tab(s), Refills(s) 0 Start Date: 07/16/19 Status: Ordered Comment on above: Take 40 mg by mouth once daily. polyethylene glycol 3350 [id number] mg powder for oral solution (18 sources) Osmotic Laxative Start: 05-24-19 polyethylene glycol (MIRALAX) 17 gram powder MIX 1 PACKET IN DRINK AND TAKE ONCE DAILY 0 05/23/2020 Active promethazine hydrochloride 25 mg oral tablet (3 sources) Phenothiazine Start: 09-24-19 take 1 tablet by mouth three times daily promethazine 25 mg Tab 25 mg = 1 tab(s), Oral, TID, # 15 tab(s), Refills(s) 0, Pharmacy: [facility]/pharmacy #[id number], 172, cm, 09/24/23 13:02:00 EDT, Height/Length Dosing, 61.2, kg, 09/24/23 13:02:00 EDT, Weight Dosing Start Date: 09/24/23 Status: Ordered Start: 12-03-2021 take 1 tablet by shahzad th every four hours promethazine 25 mg Tab 25 mg = 1 tab(s), Oral, q4hr, # 12 tab(s), Refills(s) 0, Pharmacy: [facility]/pharmacy #[id number], 172.9, cm, 12/03/21 10:15:00 EDT, Height/Length Dosing, 46.2, kg, 12/03/21 10:15:00 EDT, Weight Dosing Start Date: 12/03/21 Status: Ordered Start: 12-03-2021 Phenergan 25 m g Supp 25 mg = 1 supp, Rectal, q6hr, PRN as needed for nausea, Insert one per rectum every six hours as needed for nausea and vomiting, # 6 EA, Refills(s) 0, Pharmacy: [facility]/pharmacy #[id number], 172.9, cm, 12/03/21 10:15:00 EDT, Height/Length Dosing, 46.2, kg, 12/03/21 10:15:00 EDT, Weight Dosing Start Date: 12/03/21 Status: Ordered risperiDONE 2 mg oral tablet (16 sources) Atypical Antipsychotic Start: 10-28-2020 End: 09-19-2021 take 1 tablet by mouth once daily risperiDONE (RISPERDAL) 2 MG tablet Take 1 (one) tablet (2 mg total) by mouth daily . 30 tablet 5 09/19/2021 Active Start: 06-24-2020 End: 08-22-2020 take 1 tablet by mouth once daily risperiDONE (RISPERDAL) 4 MG tablet Take 1 (one) tablet (4 mg total) by mouth daily . 30 tablet 5 08/22/2020 Active 60 actuat tiotropium 0.0025 mg/actuat inhalation spray (20 sources) Anticholinergic Start: 11-27-2023 Spiriva Respim at 60 ACT 2.5 mcg/inh inhalation aerosol = 2 inh, Inhalation, Daily, # 4 gm, Refills(s) 11, Pharmacy: [facility]/pharmacy #[id number], 169.7, cm, 11/26/23 15:32:00 EDT, Height/Length Dosing, 62.1, kg, 11/26/23 15:32:00 EDT, Weight Dosing Start Date: 11/27/23 Status: Ordered Start: 07-16-2019 Spiriva Respim at 10 ACT 2.5 mcg/inh inhalation aerosol = 2 puff(s), Inhalation, Daily, Refills(s) 0 Start Date: 07/16/19 Status: Ordered take 1 capsule by in halation once daily tiotropium (SPIRIVA WITH HANDIHALER) 18 mcg inhalation capsule Inhale 18 mcg as instructed once daily. 0 Active Comment on above: Inhale 18 mcg as ins tructed once daily. Ventolin HFA 90 mcg/inh Aerosol (3 sources) Start: 07-16-2019 take 2 puff(s) by inhalation every four hours for wheezing Ventolin HFA 90 mcg/inh Aerosol 2 puff(s), Inhalation, q4hr for wheezing, 18 gram, Refill(s) 0 Start Date: 07/16/19 Status: Ordered Zofran ODT 4 mg Tab-Dis (3 sources) Start: 09-24-2023 take 1 tablet by mouth three times daily Zofran ODT 4 mg Tab-Dis 4 mg = 1 tab(s), Oral, TID, # 15 tab(s), Refills(s) 0, [id number], cm, 09/24/23 13:02:00 EDT, Height/Length Dosing, 61.2, kg, 09/24/23 13:02:00 EDT, Weight Dosing Start Date: 09/24/23 Status: Ordered Zofran ODT 8 mg Tab-Dis (1 source) Start: 01-23-2024 take 1 tablet under the tongue every eight hours as needed for nausea Zofran ODT 8 mg Tab-Dis 8 mg = 1 tab(s), SubLingual, q8hr, PRN Nausea/Vomiting, # 24 tab(s), Refills(s) 0, [id number] 169, cm, 01/16/24 10:14:00 EDT, Height/Length Dosing, 63.9, kg, 01/16/24 10:14:00 EDT, Weight Dosing Start Date: 01/23/24 Status: Ordered Completed/Discontinued Medications Medication Drug Class(es) Dates Sig (Normalized) Sig (Original) clonazePAM 1 mg oral tablet (7 sources) Benzodiazepine End: 01-03-2022 take 1 tablet by mouth every twelve hours as needed clonazePAM 1 mg tablet Take 1 mg by mouth twice daily as needed. 0 01/03/2022 Discontinued (Course of therapy completed) Comment on above: Take 1 mg by mouth t wice daily as needed. cloNIDine hydrochloride 0.2 mg oral tablet (20 sources) Central alpha-2 Adrenergic Agonist Start: 05-24-2020 End: 10-03-2021 cloNIDine HCl (CATAPRES) 0.2 mg tablet diclofenac sodium 0.01 mg/mg topical gel (7 [...] oral capsule (7 sources) Anti-epileptic Agent Start: 2012 End: 2021 gabapentin (NEURONTIN) 100 mg capsule Indications: Hand pain , Numbness and tingling , Neuropathy Take 1cap nightly x 3-5days, increase 1cap every 3-5days until 3caps AM/3caps noon/3capsPM thereafter if tolerated/necessary. 270 capsule 3 10/24/2012 01/03/2022 Discontinued (Course of therapy completed) Comment on above: Take 1cap nightly x 3-5days, increase 1cap every 3-5days until 3caps AM/3caps noon/3capsPM thereafter if tolerated/necessary. metoclopramide 10 mg oral tablet (1 source) [...] Date Documented Da te Episodic/Chronic Abdominal pain (16 sources) Left upper quadrant pain; Translations: [Left upper quadrant pain] Onset: 2 Episodic Alcohol-related disorders (3 sources) Alcoholism 10-21-2019 Chronic Anxiety disorders (20 sources) Generalized anxiety disorder; Translations: [Generalized anxiety disorder] Onset: 1 Chronic Bacterial infection; unspecified site (1 source) Bacterial infectious disease; Translations: [Bacterial infection, unspecified] Onset: 4 Episodic Cancer of other GI organs; peritoneum (3 sources) Malignant tumor of digestive organ; 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] Onset: 3 Chronic Chronic obstructive pulmonary disease and bronchiectasis (20 sources) Chronic obstructive lung disease; Translations: [Chronic obstructive pulmonary disease, unspecified] Onset: 1 07-18-2020 Chronic Esophageal disorders (20 sources) Gastroesophageal reflux disease; Translations: [Gastro-esophageal reflux disease without esophagitis] Onset: 1 07-18-2020 Chronic Gastritis and duodenitis (1 source) Unspecified chronic gastritis without bleeding; Translations: [UNS CHRONIC GASTRITIS W/O BLEEDING] Onset: 2 Chronic Mood disorders (20 sources) Moderate mixed bipolar I disorder; Translations: [Bipolar disorder, current episode mixed, moderate] Onset: 1 Chronic Nausea and vomiting (13 sources) Nausea and vomiting; Translations: [Nausea with vomiting, unspecified] Onset: 2 Episodic Noninfectious gastroenteritis (3 sources) Noninfectious enteritis; Translations: [Noninfective gastroenteritis and colitis, unspecified] Onset: 4 Episodic Nutritional deficiencies (17 sources) Deficiency of macronutrients; Translations: [Unspecified severe protein-calorie malnutrition] Onset: 2 Chronic Other aftercare (5 sources) H/O: high risk medication; Translations: [Other chcf (current) drug therapy] Episodic Other and unspecified benign neoplasm (1 source) Intestinal polyposis syndrome; Translations: [Benign neoplasm of colon, unspecified] Episodic Other and unspecified benign neoplasm (3 sources) History of polyp of colon; Translations: [Personal history of colon polyps, unspecified] Onset: 4 Episodic Other circulatory disease (20 sources) Raynaud's phenomenon; Translations: [Raynaud's syndrome without gangrene] Onset: 3 10-24-2012 Chronic Other circulatory disease (20 sources) Low blood pressure; Translations: [Hypotension, unspecified] Onset: 1 07-18-2020 Episodic Other disorders of stomach and duodenum (1 source) Gastroduodenal disorder; Translations: [Disease of stomach and duodenum, unspecified] Onset: 4 Episodic Other disorders of stomach and duodenum (2 sources) Disorder of stomach 01-16-2024 Episodic Other gastrointestinal disorders (1 source) Irritable bowel syndrome without diarrhea; Translations: [IRRITABLE BOWEL SYND W/O DIARRHEA] Onset: 2 Chronic Other gastrointestinal disorders (20 sources) Incontinence of feces; Translations: [Full incontinence of feces] Onset: 1 07-18-2020 Episodic Other gastrointestinal disorders (1 source) Polyp of small intestine; Translations: [Other specified diseases of intestine] Episodic Other gastrointestinal disorders (2 sources) Diarrhea 11-26-2023 Episodic Other lower respiratory disease (3 sources) Chronic disease of respiratory system 04-26-2020 Episodic Other nervous system disorders (20 sources) [...] Weight loss; Translations: [Abnormal weight loss] Episodic Other nutritional; endocrine; and metabolic disorders (3 sources) Underweight 04-26-2020 Episodic Residual codes; unclassified (20 sources) Sleep apnea; Translations: [Sleep apnea, unspecified] Onset: 1 07-18-2020 Chronic Residual codes; unclassified (4 sources) Obstructive sleep apnea (adult) (pediatric); Translations: [OBSTRUCTIVE SLEEP APNEA] Onset: 3 Chronic Residual codes; unclassified (20 sources) Tobacco user; Translations: [Tobacco use] Onset: 3 10-24-2012 Episodic Residual codes; unclassified (4 sources) Transient alteration of awareness; Translations: [TRANSIENT ALTERATION OF AWARENESS] Onset: 3 Episodic Residual codes; unclassified (1 source) Past history of procedure; Translations: [Other specified postprocedural states] Onset: 4 Episodic Residual codes; unclassified (1 source) Acquired absence of organ; Translations: [Acquired absence of other specified parts of digestive tract] Onset: 4 Episodic Substance-related disorders (4 sources) Nicotine dependence, cigarettes, uncomplicated; Translations: [Nicotine dependence] Onset: 2 04-26-2020 Chronic Comment on above: Added secondary to d ocumentation in Social History. Unclassified (1 source) APPOINTMENT CANCELLED Unclassified (2 sources) Medication Management Onset: 1 Unclassified (8 sources) Patient encounter status 04-26-2020 Urinary tract infections (1 source) Urinary tract infectious disease; Translations: [Urinary tract infection, site not specified] Onset: 4 Episodic Past or Other Problems Problem Classification Problem Date Documented Da te Episodic/Chronic Fluid and electrolyte disorders (1 source) Dehydration; Translations: [DEHYDRATION] Onset: 12-13-2021 Episodic Fracture of lower limb (3 sources) Fracture of foot Onset: 03-18-2018 04-26-2020 Episodic Genitourinary symptoms and ill-defined conditions (1 source) Personal history of urinary (tract) infections; Translations: [PERS HX URINARY TRACT INFECTIONS] Onset: 11-16-2021 Episodic Immunizations and screening for infectious disease (20 sources) Anti-nuclear factor positive; Translations: [Other specified abnormal immunological findings in serum] Onset: 10-24-2012 10-24-2012 Episodic Nonspecific chest pain (5 sources) Chest pain, unspecified; Translations: [Other chest pain] Onset: 2021 Episodic Other aftercare (7 sources) 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 HPI Staff Patient is a(n) 53 year old female who was referred by Therese Zarco CNP for chronic diarrhea. Patient also c/o intermittent nausea and vomiting. Episodes last around 4-5 days. Diarrhea: stool testing ordered but not completed. How many BM a day (normal <4): 10 When did it start: Years ago. Had capsule done at [facility] and surgery. Dr Tiffani Morales. Constant? Or alternate with normal BM or constipation: alternates with normal BM Associated symptoms: Severe nausea and vomiting EGD w/ Dr Negro 10/22/19 Impression and Plan Small hiatal hernia Mild nonobstructive Schatzki's ring Mild diffuse gastritis, biopsied Final Diagnosis (Verified) STOMACH, BIOPSY: ??? ANTRAL AND BODY MUCOSA WITH MILD CHRONIC GASTRITIS, COMPATIBLE WITH REACTIVE GASTROPATHY. Colonoscopy w/ Dr Keith 04/2019- no op note available Pathological Diagnosis A. Stomach, antrum, biopsy: - Mild chronic inactive gastritis - No morphologic evidence of H. pylori microorganisms B. Descending colon, biopsy: - Tubular adenoma C. Sigmoid colon, biopsy: - Tubular adenoma History of Present Illness I have reviewed HPI staff note, most recent labs and imaging, I agree with the above documentation with the following additions/exceptions : pt with weight loss, throw up, and diarrhea capsule endoscopy done at [facility] and was found to have stomach going inside small bowel tissues gained 43 pounds since then nausea is debilitating dry heaves and vomits food she ate before on zofran gastric emptying done in the past feels symptoms are coming back symptoms could come every 1-2 weeks and could last for 4-5 days Review of Systems PHQ Score Initial Depression Screen Score: 0 SCORE All systems reviewed, negative except as mentioned above Physical Exam Vitals & Measurements HR: 73(Peripheral) BP: 116/76 HT: 67 in HT: 169 cm WT: 63.9 kg WT: 140.58 lb BMI: 22.37 General: alert, no acute distress HEENT: atraumatic normocephalic Cardiovascular: regular rate and rhythm, normal peripheral perfusion Respiratory: Lungs CTA, respirations non labored Extremities: no deformity, no trauma Abdomen: Benign, soft, tender nondistended Assessment/Plan 1. Chronic diarrhea (K52.9: Noninfective gastroenteritis and colitis, unspecified) 2. Chronic post-traumatic stress disorder (PTSD) (F43.12: Post-traumatic stress disorder, chronic) 3. History of abdominal surgery (Z98.890: Other specified postprocedural states) 4. S/P cholecystectomy (Z90.49: Acquired absence of other specified parts of digestive tract) 5. Nausea and vomiting (R11.2: Nausea with vomiting, unspecified) 6. Epigastric pain (R10.13: Epigastric pain) 7. History of colon polyps (Z86.0100: Personal history of colon polyps, unspecified) 8. Gastropathy (K31.9: Disease of stomach and duodenum, unspecified) 9. Schatzki's ring (K22.2: Esophageal obstruction) Nausea and vomiting hours after eating could be secondary to gastroparesis. Patient is positive with gastric emptying test was done in the past but mother was not sure when and where. 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 Will treat empirically with Questran 4 g twice daily Obtain GI follow-through study to assess anatomy after bowel surgery in the setting of current GI symptoms Continue omeprazole 20 mg daily Continue Zofran as needed for nausea and vomiting Follow-up No qualifying data available Problem List/Past Medical History Ongoing Apnea, sleep Bipolar 1 disorder, mixed, moderate Chronic diarrhea Chronic GERD Chronic obstructive pulmonary disease (COPD) Chronic post-traumatic stress disorder (PTSD) COPD - Chronic obstructive pulmonary disease COPD without exacerbation Diarrhea Dietary counseling Epigastric pain Establishing care with new doctor, encounter for Exercise counseling MOON (generalized anxiety disorder) Gastropathy History of abdominal surgery History of colon polyps Hypotension Malnutrition Nausea and vomiting S/P cholecystectomy Schatzki's ring Smoker Underweight due to inadequate caloric intake Vomiting Historical Alcoholism Stool incontinence Unspecified fracture of left foot, subsequent encounter for fracture with routine healing Procedure/Surgical History Colonoscopy (05/08/2019), EGD - Esophagogastroduodenoscopy (05/08/2019), CT - Computerized tomography (01/18/2019), Echocardiogram (11/14/2016), Cardiovascular stress testing (11/01/2016), Appendectomy, delivery, Cholecystectomy, Foot repair, Oral surgery, Total hysterectomy. Medications albuterol 0.083% Inh Misty 3 mL, 2.5 mg= 3 mL, Inhalation, q6hr cloNIDine 0.2 mg Tab, 0.2 mg= 1 tab(s), Oral, Bedtime, 1 refills hydrOXYzine hydrochloride 50 mg oral tablet, 50 mg= 1 tab(s), Oral, TID, (more content not included)... [facility] Comment on above: Result Comment: Elec tronically Signed By: Butch SANDOVAL, Sandoval Frost\.br\Date and Time Signed: 01/16/24 10:34 EDT Family Medicine Office/Clini c Noteon 11-27-2023 Family Medicine Office/Clinic Note Family Medicine Office/Clinic Note HPI Staff Sai is a 53 year old female presenting with diarrhea and vomiting Onset; 4-5 days She has no control of her BM she said Zofran helps but she is out Zofran and spiriva inhaler need refilled No controls of BM is wearing adult diapers All she has ate was 4-5 crackers since this started History of Present Illness pt presents with diarrhea and vomiting. Review of Systems PHQ Score Initial Depression Screen Score: 0 SCORE Physical Exam Vitals & Measurements T: 37.0 ?C(Oral) HR: 80(Peripheral) RR: 18 BP: 112/72 SpO2: 97% HT: 67 in HT: 169.7 cm WT: 62.1 kg WT: 136.62 lb BMI: 21.56 General: alert, no acute distress ENMT: oral mucosa moist, no pharyngeal erythema or exudate Cardiovascular: regular rate and rhythm, normal peripheral perfusion Respiratory: Lungs CTA, respirations non labored Extremities: no deformity, no trauma Neurological: oriented x 4, LOC appropriate for age, CN II-XII intact, motor strength equal & normal bilaterally, speech normal Assessment/Plan 1. Diarrhea (R19.7: Diarrhea, unspecified) pt unable to give us a stool sample in office today. sent her home with supplies to obtain specimen. encouraged pt to reach out to GI doc for appointment. if unable to get in, will send referral to [facility] 2. Vomiting (R11.10: Vomiting, unspecified) pt is asking for refill on omeprazole 3. Smoker (F17.200: Nicotine dependence, unspecified, uncomplicated) consider not smoking 4. BMI 21.0-21.9, adult (Z68.21: Body mass index [BMI] 21.0-21.9, adult) BMI education given Orders: lamotrigine, See Instructions, TAKE 1 TABLET BY MOUTH EVERY DAY IN THE AFTERNOON, # 30 tab(s), Refills(s) 0, Pharmacy: [id number], 169.7, cm, 10/03/23 9:38:00 EDT, Height/Length Dosing, 62.5, kg, 10/03/23 9:38:00 EDT, Weight Dosing lamotrigine, See Instructions, TAKE 1 TABLET EVERY MORNING, # 30 tab(s), Refills(s) 0, Pharmacy: [id number], 169.7, cm, 10/03/23 9:38:00 EDT, Height/Length Dosing, 62.5, kg, 10/03/23 9:38:00 EDT, Weight Dosing lamotrigine, See Instructions, TAKE 1 TABLET BY MOUTH EVERY DAY IN THE AFTERNOON, # 30 tab(s), Refills(s) 0, Pharmacy: [id number], 169.7, cm, 11/26/23 15:32:00 EDT, Height/Length Dosing, 62.1, kg, 11/26/23 15:32:00 EDT, Weight Dosing nitrofurantoin, 100 mg = 1 cap(s), Oral, BID, X 7 day(s), # 14 cap(s), Refills(s) 0, [id number], 169.7, cm, 11/26/23 15:32:00 EDT, Height/Length Dosing, 62.1, kg, 11/26/23 15:32:00 EDT, Weight Dosing omeprazole, 20 mg = 1 cap(s), Oral, Daily, # 30 cap(s), Refills(s) 0, [id number], 169.7, cm, 10/03/23 9:38:00 EDT, Height/Length Dosing, 62.5, kg, 10/03/23 9:38:00 EDT, Weight Dosing omeprazole, See Instructions, TAKE 1 CAPSULE BY MOUTH EVERY DAY, # 30 cap(s), Refills(s) 0, Pharmacy: [facility] [id number], 169.7, cm, 11/26/23 15:32:00 EDT, Height/Length Dosing, 62.1, kg, 11/26/23 15:32:00 EDT, Weight Dosing tiotropium, = 2 inh, Inhalation, Daily, # 4 gm, Refills(s) 11, [id number], 169.7, cm, 11/26/23 15:32:00 EDT, Height/Length Dosing, 62.1, kg, 11/26/23 15:32:00 EDT, Weight Dosing Follow-up No qualifying data available Problem List/Past Medical History Ongoing Apnea, sleep Bipolar 1 disorder, mixed, moderate Chronic GERD Chronic obstructive pulmonary disease (COPD) Chronic post-traumatic stress disorder (PTSD) COPD - Chronic obstructive pulmonary disease COPD without exacerbation Diarrhea Dietary counseling Establishing care with new doctor, encounter for Exercise counseling MOON (generalized anxiety disorder) Hypotension Malnutrition Smoker Underweight due to inadequate caloric intake Vomiting Historical Alcoholism Stool incontinence Unspecified fracture of left foot, subsequent encounter for fracture with routine healing Procedure/Surgical History Colonoscopy (05/08/2019), EGD - Esophagogastroduodenoscopy (05/08/2019), CT - Computerized tomography (01/18/2019), Echocardiogram (11/14/2016), Cardiovascular stress testing (11/01/2016), Appendectomy, delivery, Cholecystectomy, Foot repair, Oral surgery, Total hysterectomy. Medications albuterol 0.083% Inh Misty 3 mL, 2.5 mg= 3 mL, Inhalation, q6hr cloNIDine 0.2 mg Tab, 0.2 mg= 1 tab(s), Oral, Bedtime, 1 refills hydrOXYzine hydrochloride 50 mg oral tablet, 50 mg= 1 tab(s), Oral, TID, PRN lamotrigine 25 mg Tab, See Instructions Macrobid 100 mg Cap, 100 mg= 1 cap(s), Oral, BID mirtazapine 7.5 mg oral tablet, 7.5 mg= 1 tab(s), Oral, Bedtime omeprazole 20 mg Cap-DR, See Instructions ondansetron 4 mg Dis Tab, 4 mg= 1 tab(s), Oral, q6hr, PRN Protonix 40 mg Tab-DR, 40 mg= 1 tab(s), Oral, Daily Spiriva Respimat 10 ACT 2.5 mcg/inh inhalation aerosol, 2 puff(s), Inhalation, Daily Spiriva Respimat 60 ACT 2.5 mcg/inh inhalation aerosol, 2 inh, Inhalation, Daily, 11 refills Ventolin HFA 90 mcg/inh Aerosol, 2 puff(s), Inhalation, q4hr, PRN Zofran 4 mg Tab, 4 mg= 1 tab(s), Or (more content not included)... [facility] Comment on above: Result Comment: Elec tronically Signed By: Lala Horner\.br\Date and Time Signed: 11/27/23 17:39 EDT Ambulatory Visit Summaryon 0 11-26-2023 Ambulatory Visit Summary Ambulatory Visit Summary SAI PINEDA :1970 Visit Date:11/26/2023 Ambulatory Visit Instructions Your Diagnosis Diarrhea Vomiting Your Care Team Attending Physician - Lala Horner Primary Care Physician - Lala Horner This Is Your Medications List albuterol (Ventolin HFA 90 mcg/inh Aerosol) albuterol (albuterol 0.083% Inh Misty 3 mL) clonidine (cloNIDine 0.2 mg Tab) hydrOXYzine (hydrOXYzine hydrochloride 50 mg oral tablet) lamotrigine (lamotrigine 200 mg Tab) lamotrigine (lamotrigine 25 mg Tab) mirtazapine (mirtazapine 7.5 mg oral tablet) omeprazole (omeprazole 20 mg Cap-DR) ondansetron (Zofran 4 mg Tab) ondansetron (Zofran ODT 4 mg Tab-Dis) ondansetron (ondansetron 4 mg Dis Tab) pantoprazole (Protonix 40 mg Tab-DR) tiotropium (Spiriva Respimat 10 ACT 2.5 mcg/inh inhalation aerosol) Procedures Performed Colonoscopy (05/08/2019), EGD - Esophagogastroduodenoscopy (05/08/2019), CT - Computerized tomography (01/18/2019), Echocardiogram (11/14/2016), Cardiovascular stress testing (11/01/2016), Appendectomy, delivery, Cholecystectomy, Foot repair, Oral surgery, Total hysterectomy. Discharge Vitals Temperature (Oral) 37.0 ?C Heart Rate (Peripheral) 80 Respiratory Rate 18 Blood Pressure 112/72 Height 169.7 cm Height 67 in Weight 62.1 kg Weight 136.62 lb BMI 21.56 What to do next You Need to Complete the Following Clostridium Difficile PCR, Stool, Routine collect, 11/26/23, Order for future visit, Nurse collect, Diarrhea Vomiting, Print Label By Order Location Giardia lamblia, Direct Detection EIA, Stool, Routine collect, 11/26/23, Order for future visit, Nurse collect, Diarrhea Vomiting, Print Label By Order Location O & P Exam, Routine, Stool, Routine collect, 11/26/23, Order for future visit, Nurse collect, Diarrhea Vomiting, Print Label By Order Location Rotavirus Ab, Stool, Routine collect, 11/26/23, Order for future visit, Nurse collect, Diarrhea Vomiting, Print Label By Order Location Medications What How Much When Why Instructions Unchanged albuterol (albuterol 0.083% Inh Misty 3 mL) 3 Milliliter Inhalation Every 6 hours Q6H and PRN Unchanged albuterol (Ventolin HFA 90 mcg/ inh Aerosol) 2 Puffs Inhalation Every 4 hours as needed for for wheezing Unchanged clonidine (cloNIDine 0.2 mg Tab) 1 Tablets By Mouth At bedtime Unchanged hydrOXYzine (hydrOXYzine hydrochloride 50 mg oral tablet) 1 Tablets By Mouth 3 times a day as needed for as needed for anxiety MOON (generalized anxiety disorder) Unchanged lamotrigine (lamotrigine 200 mg Tab) See instructions TAKE 1 TABLET EVERY MORNING Unchanged lamotrigine (lamotrigine 25 mg Tab) See instructions TAKE 1 TABLET BY MOUTH EVERY DAY IN THE AFTERNOON Unchanged mirtazapine (mirtazapine 7.5 mg oral tablet) 1 Tablets By Mouth At bedtime Unchanged omeprazole (omeprazole 20 mg Cap-DR) 1 Capsules By Mouth Every day Unchanged ondansetron (ondansetron 4 mg Dis Tab) 1 Tablets By Mouth Every 6 hours as needed for Nausea/Vomiting Pickup at [facility]/pharmacy #[id number] Unchanged ondansetron (Zofran 4 mg Tab) 1 Tablets By Mouth Every 8 hours as needed for Nausea Nausea Unchanged ondansetron (Zofran ODT 4 mg Tab-Dis) 1 Tablets By Mouth 3 times a day Unchanged pantoprazole (Protonix 40 mg Tab-DR) 1 Tablets By Mouth Every day Unchanged tiotropium (Spiriva Respimat 10 ACT 2.5 mcg/ inh inhalation aerosol) 2 Puffs Inhalation Every day Pharmacy Information [facility]/pharmacy #[id number]: [address], [place] [id number] [phone] Allergies No Known Allergies Problems Ongoing - Any problem that you are currently receiving treatment for. Apnea, sleep Bipolar 1 disorder, mixed, moderate Chronic GERD Chronic obstructive pulmonary disease (COPD) Chronic post-traumatic stress disorder (PTSD) COPD - Chronic obstructive pulmonary disease COPD without exacerbation Diarrhea Dietary counseling Establishing care with new doctor, encounter for Exercise counseling MOON (generalized anxiety disorder) Hypotension Malnutrition Smoker Underweight due to inadequate caloric intake Vomiting Historical - Any problem that you are no longer receiving treatment for. Alcoholism Stool incontinence Unspecified fracture of left foot, subsequent encounter for fracture with routine healing Patient Survey You may receive a survey via text or e-mail asking about your office visit. Please share your experience with us by completing your survey. We appreciate your feedback and thank you for choosing us for your care. [facility] ED Note-Physicianon 10-21-19 ED Note-Physician ED Note-Physician Basic Information Time Seen: Vj Martinez PA-C 09/24/2023 12:59 Chief Complaint Pt presents to ED with complaints of ABD pain, N/V/D onset 4 days ago. previous GI surgery to remove stomach tissue months ago. History of Present Illness 52-year-old female comes to the ED for evaluation of nausea vomiting diarrhea. Over the last few days she has had generalized abdominal cramping with nausea vomiting diarrhea. She had some increased urinary frequency and dysuria. No fever, chills, chest pain or shortness of breath. She states symptoms do feel similar to when she had gastric overgrowth requiring surgical debridement. She has had associated previous appendectomy and cholecystectomy. She took Zofran but continues to have nausea and vomiting. Review of Systems A 10 point review of systems is negative except as noted above. Medical and Surgical History: Reviewed and noted Social history: Lives at home Tobacco: Denies Physical Exam Vitals & Measurements T: 36.7 ?C(Oral) HR: 89(Peripheral) RR: 18 BP: 125/82 SpO2: 96% HT: 172 cm WT: 61.2 kg BMI: 20.69 Nurses notes and vital signs reviewed and patient is not hypoxic. General: The patient appears well and in no significant distress Patient is resting comfortably on the exam bed. Skin: Warm, dry, no pallor noted. Head: Atraumatic. Neck: No JVD. Eye: Normal conjunctiva. Ears, Nose, Mouth, and Throat: Moist mucous membranes Cardiovascular: Strong distal pulses. Chest wall: Respiratory: Respirations are nonlabored. Lungs clear to auscultation. Back: Normal range of motion, no CVA tenderness. Musculoskeletal: Normal ROM with no gross deformity. Gastrointestinal: Abdomen is soft throughout. There is mild generalized tenderness but no focal finding. No guarding, rebound or rigidity. No distention. Urological: Neurological: Awake and alert. No focal deficits. Follows commands. GCS 15. Psychiatric: Cooperative. Medical Decision Making Laboratory studies reviewed and noted. The patient does have urinary findings as well as urinary symptoms. No leukocytosis. Renal function is preserved. She was treated here with IV fluids, antiemetics and pain medications. She had no vomiting here to ED stay. She is overall nontoxic in appearance. She is discharged home with antibiotics, Phenergan and Zofran, and PCP follow-up. Patient was encouraged to return to the ED if symptoms worsen or change. Assessment/Plan Ordered: morphine, 4 mg = 1 mL, Injection, IV Push, Once, Stop date 09/24/23 14:17:00 EDT, STAT, Start date 09/24/23 14:17:00 EDT, 09/24/23 14:17:00 EDT promethazine 25 mg + Sodium Chloride 0.9% intravenous solution 50 mL, Injection, IV Piggyback, Once, Stop date 09/24/23 13:46:00 EDT, STAT, Start date 09/24/23 13:46:00 EDT, 153 mL/hr, Infuse over 20 minute(s) Sodium Chloride 0.9% intravenous solution, 1,000 mL, Soln-IV, IV, Once, Stop date 09/24/23 13:02:00 EDT, STAT, Start date 09/24/23 13:02:00 EDT, Infuse over 61, minute(s) Basic Metabolic Panel CBC w/ Auto Diff eGFR Hepatic Function Panel Lipase Level UA with Cult Rflx Urine Culture Medications Administered Given morphine 4 mg/mL Inj, 4 mg, IV Push NS 1000 ml Bolus, 1000 mL, IV [id number] [F] 25 mg + Sodium Chloride 0.9% IV Misty 50 mL [F] 50 mL, IV Piggyback Disposition Plan Patient Discharge Condition Disposition: Discharged home Condition: Improved and stable Counseled: Patient and/or family were counseled to workup, results, treatment plan and follow-up recommendations Discharge Prescription List Prescriptions Keflex 500 mg Cap, 500 mg= 1 cap(s), Oral, q12hr promethazine 25 mg Tab, 25 mg= 1 tab(s), Oral, TID Zofran ODT 4 mg Tab-Dis, 4 mg= 1 tab(s), Oral, TID Follow-up With When Contact Information CHANCE SERRANO In 3 days 09/27/[address] [place] [id number] [phone] Business (1) Additional Instructions: Patient Education Urinary Tract Infection, Adult Attestation I performed a substantive part of the MDM during the patient?s E/M visit. I personally made or approved the documented management plan and acknowledge its risk of complications. (Independent Interpretation) My (EKG/X-Ray/US/CT) interpretation as above. (Discussion) Management/test interpretation discussed with APC. This report was transcribed using voice recognition software. Every effort was made to ensure accuracy, however, inadvertently computerized glassware engraver mistakes may be present. Appropriate healthcare PPE was used in evaluating this patient. Problem List/Past Medical History Ongoing Apnea, sleep Bipolar 1 disorder, mixed, moderate Chronic GERD Chronic obstructive pulmonary disease (COPD) Chronic post-traumatic stress disorder (PTSD) COPD - Chronic obstructive pulmonary disease COPD without exacerbation Dietary counseling Exercise counseling MOON (generalized anxiety disorder) Hypotension Malnutrition Smoker Underweight due to inadequa (more content not included)... [facility] Comment on above: Result Comment: Elec tronically Signed By: Vj Martinez PA-C\.br\Date and Time Signed: 10/21/23 07:39 EDT\.br\Electronically Co-Signed By: José Luis Resendiz DO\.br\Date and Time Co-Signed: 10/21/23 19:15 EDT Family Medicine Office/Clini c Noteon 10-03-2023 Family Medicine Office/Clinic Note Family Medicine Office/Clinic Note HPI Staff Sai is a 52 year old female presenting to establish care FT ER 09/23 flu like sxs dxed with UTI MOON: 16 Establish Care: History: anxiety, bipolar, PTSD copd Any previous diagnosis: History of seeing any specialist: psych for mental health When was your last doctors visit: month or so ago Last provider: [facility] Any recent labs: IN ER / Health Maintenance UTD: Colonoscopy: several Mammogram: due Pelvic/Pap: hysterectomy yrs ago Acute: Current issues/complaints: fu UTI from ER 7, anxiety bad but going to see a new psych for that didn't know if you'd address that. Would like to have her xanax back went off it but really needs it back the anxiety is affecting her every day life. Has become more of a hermit in her home History of Present Illness pt presents today to establish care. was seen in ER for UTI. Physical Exam Vitals & Measurements T: 37.0 ?C(Temporal Artery) HR: 76(Peripheral) RR: 16 BP: 118/76 SpO2: 98% HT: 67 in HT: 169.7 cm WT: 62.5 kg WT: 137.5 lb BMI: 21.7 General: alert, no acute distress ENMT: oral mucosa moist, no pharyngeal erythema or exudate Cardiovascular: regular rate and rhythm, normal peripheral perfusion Respiratory: Lungs CTA, respirations non labored Extremities: no deformity, no trauma Neurological: oriented x 4, LOC appropriate for age, CN II-XII intact, motor strength equal & normal bilaterally, speech normal Assessment/Plan 1. Establishing care with new doctor, encounter for (Z76.89: Persons encountering health services in other specified circumstances) pt presents today to establish care. was seen in ER for UTI and was told to follow up with PCP. pt is feeling well. denies complaints at this time. she is following up with psych for her anxiety. follow up as needed Ordered: Body Mass Index (BMI) documented 3008F Current tobacco smoker 1034F Most recent diastolic blood pressure <80 mm Hg 3078F Systolic BP <130 mm Hg (Most Recent) 3074F 2. BMI 21.0-21.9, adult (Z68.21: Body mass index [BMI] 21.0-21.9, adult) BNI education given Ordered: Body Mass Index (BMI) documented 3008F Current tobacco smoker 1034F Most recent diastolic blood pressure <80 mm Hg 3078F Systolic BP <130 mm Hg (Most Recent) 3074F 3. Smoker (F17.200: Nicotine dependence, unspecified, uncomplicated) consider not smoking Ordered: Body Mass Index (BMI) documented 3008F Current tobacco smoker 1034F Most recent diastolic blood pressure <80 mm Hg 3078F Systolic BP <130 mm Hg (Most Recent) 3074F Follow-up No qualifying data available Problem List/Past Medical History Ongoing Apnea, sleep Bipolar 1 disorder, mixed, moderate Chronic GERD Chronic obstructive pulmonary disease (COPD) Chronic post-traumatic stress disorder (PTSD) COPD - Chronic obstructive pulmonary disease COPD without exacerbation Dietary counseling Establishing care with new doctor, encounter for Exercise counseling MOON (generalized anxiety disorder) Hypotension Malnutrition Smoker Underweight due to inadequate caloric intake Historical Alcoholism Stool incontinence Unspecified fracture of left foot, subsequent encounter for fracture with routine healing Procedure/Surgical History Colonoscopy (05/08/2019), EGD - Esophagogastroduodenoscopy (05/08/2019), CT - Computerized tomography (01/18/2019), Echocardiogram (11/14/2016), Cardiovascular stress testing (11/01/2016), Appendectomy, delivery, Cholecystectomy, Foot repair, Oral surgery, Total hysterectomy. Medications albuterol 0.083% Inh Misty 3 mL, 2.5 mg= 3 mL, Inhalation, q6hr cloNIDine 0.2 mg Tab, 0.2 mg= 1 tab(s), Oral, Bedtime, 1 refills hydrOXYzine hydrochloride 50 mg oral tablet, 50 mg= 1 tab(s), Oral, TID, PRN Protonix 40 mg Tab-DR, 40 mg= 1 tab(s), Oral, Daily Spiriva Respimat 10 ACT 2.5 mcg/inh inhalation aerosol, 2 puff(s), Inhalation, Daily Ventolin HFA 90 mcg/inh Aerosol, 2 puff(s), Inhalation, q4hr, PRN Zofran 4 mg Tab, 4 mg= 1 tab(s), Oral, q8hr, PRN Zofran ODT 4 mg Tab-Dis, 4 mg= 1 tab(s), Oral, TID Allergies No Known Allergies Social History Alcohol - Denies Alcohol Use, 08/03/2019 Employment/School Unemployed, 08/03/2019 Home/Environment Lives with Significant other. Living situation: Home/Independent., 08/03/2019 Substance Abuse - Denies Substance Abuse, 11/06/2019 Current, Marijuana, 3-5 times per week, 10/21/2019 Tobacco - High Risk, 10/21/2019 4 or less cigarettes(less than 1/4 pack)/day in last 30 days Tobacco Use:. Never Smokeless Tobacco Use:. Cigarettes, 1 per day. Started age 13.0 Years. Previous treatment: Nicotine replacement. Ready to change: No. Household tobacco concerns: Yes., 10/03/2023 Former smoker, quit more than 30 days ago Tobacco Use:., 09/24/2023 Family History Colonic polyp: Father. Immunizations Vaccine Date Status Comments diphtheria/pertussis, acel/tetanus adult 10/11/19 (more content not included)... [facility] Comment on above: Result Comment: Elec tronically Signed By: Lala Horner\.br\Date and Time Signed: 10/03/23 10:12 EDT C Urineon 09-26-2023 Bacteria identified Cx Nom (U) Microbiology PROCEDURE: Urine Culture [R1] SOURCE: U CleanCatch BODY SITE: COLLECTED DATE/TIME: 09/24/2023 13:19 EDT RECEIVED DATE/TIME: 09/24/2023 15:38 EDT START DATE/TIME: 09/24/2023 15:38 EDT FREE TEXT SOURCE: Juan PAIGE, Vj Martinez PA-C, Vj FINAL REPORTS Final Report [] Verified Date/Time: 09/26/2023 09:53 EDT 1,000 cfu/ml Mixed skin contaminants Performing Locations R1: This test was performed at: [facility], [address] [place] [address], [phone] [phone] , [facility] Comment on above: Performed By: #### [id number] #### [facility] [address] [place] [id number] CHEMISTRYOrdered By: SYSTEM SYSTEM on 09-24-2023 Albumin [Mass/Vol] 4.9 g/dL Normal 3.3 - 5.0 gm/dL Remisol Chem Albumin/Globulin [Mass ratio] 1.8 {ratio} Normal 1.1 - 2.2 Remisol Chem ALP [Catalytic activity/Vol] 76 [iU]/d Normal 21 - 98 Int._Unit/L Remisol Chem ALT No additional P-5'-P [Catalytic activity/Vol] 9 [iU]/d Normal 6 - 46 Int._Unit/L Remisol Chem Anion gap [Moles/Vol] 11 mmol/L Normal 6 - 16 mEq/L [facility] AST [Catalytic activity/Vol] 14 [iU]/d Normal 5 - 43 Int._Unit/L [facility] Bilirubin [Mass/Vol] 0.5 mg/dL Normal 0.0 - 1.1 mg/dL [facility] Bilirubin.direct [Mass/Vol] 0.0 mg/dL Normal 0.0 - 0.4 mg/dL [facility] Bilirubin.indirect [Mass or moles/Vol] 0.5 mg/dL Normal 0.1 - 0.9 mg/dL [facility] Calcium [Mass/Vol] 9.8 mg/dL Normal 8.9 - 11. 1 mg/dL [facility] Chloride [Moles/Vol] 104 mmol/L Normal 101 - 111 mmol/L [facility] CO2 [Moles/Vol] 27 mmol/L Normal 21 - 31 mmol/L [facility] Creatinine [Mass/Vol] 1.0 mg/dL Normal 0.5 - 1.3 mg/dL [facility] eGFR 67 mL/min/1.73 m2 Normal >=59mL/min / 1.73 m2 [facility] Globulin (S) [Mass/Vol] 2.8 g/dL Normal 1.4 - 4.0 gm/dL [facility] Glucose [Mass/Vol] 111 mg/dL Normal 55 - 199 mg/dL [facility] Lipase [Catalytic activity/Vol] 9 U/L Low 13 - 58 unit/L [facility] Potassium [Moles/Vol] 3.6 mmol/L Normal 3.5 - 5.3 mmol/L [facility] Protein [Mass/Vol] 7.7 g/dL Normal 6.0 - 7.8 gm/dL [facility] Sodium [Moles/Vol] 138 mmol/L Normal 135 - 145 mmol/L [facility] Urea nitrogen [Mass/Vol] 7 mg/dL Normal 5 - 21 mg/dL [facility] Urea nitrogen/Creatinine [Mass ratio] 7 mg/mg Low 10 - 20 [facility] HEMATOLOGYOrdered By: SYSTEM SYSTEM on 09-24-2023 Basophils/100 WBC (Bld) 1.3 % Normal 0.0 - 2.0 % Rem[facility] Heme Basophils/Leukocyte s Auto (Bld) [Pure # fraction] 0.1 E9/L Normal 0.0 - 0.2 E9/L [facility] Eosinophils (Bld) [#/Vol] 0.1 E9/L Normal 0.0 - 0.5 E9/L [facility] Eosinophils/100 WBC (Bld) 1.3 % Normal 0.0 - 8.0 % [facility]e Erythrocyte distribution width (RBC) [Ratio] 13.1 % Normal 10.9 - 14.2 % [facility] Hematocrit (Bld) [Volume fraction] 47.1 % High 34.0 - 46.0 % [facility]e Hemoglobin (Bld) [Mass/Vol] 15.4 g/dL Normal 12.0 - 16.0 gm/dL [facility] Lymphocytes (Bld) [#/Vol] 2.0 E9/L Normal 1.0 - 4.0 E9/L [facility]e Lymphocytes/100 WBC (Bld) 22.6 % Normal 14.0 - 50.0 % [facility]e MCH (RBC) [Entitic mass] 30.2 pg Normal 27.0 - 34.0 pg Rem[facility]e MCHC (RBC) [Mass/Vol] 32.7 g/dL Normal 31.4 - 36.0 gm/dL [facility] MCV (RBC) [Entitic vol] 92.4 fL Normal 80.0 - 100.0 fL [facility] Monocytes (Bld) [#/Vol] 0.5 E9/L Normal 0.2 - 1.0 E9/L [facility]e Monocytes/100 WBC (Bld) 6.1 % Normal 4.0 - 14.0 % [facility] Neutrophils (Bld) [#/Vol] 6.1 E9/L Normal 2.0 - 7.5 E9/L [facility]e Neutrophils/100 WBC (Bld) 68.7 % Normal 36.0 - 75.0 % [facility] Platelet mean volume (Bld) [Entitic vol] 10.1 fL Normal 6.4 - 10.8 fL [facility] Platelets (Bld) [#/Vol] 239.0 E9/L Normal 150.0 - 500.0 E9/L [facility]e RBC (Bld) [#/Vol] 5.1 E12/L Normal 4.3 - 5.9 E12/L [facility] WBC corrected for nucl RBC Auto (Bld) [#/Vol] 8.9 E9/L Normal 4.0 - 11.0 E9/L [facility]e URINALYSISOrdered By: SYSTEM SYSTEM on 09-24-2023 Bilirubin Ql (U) Negative Normal Negativemg/ dL [facility] UA Auto SS Clarity (U) Clear (09/24/23 1:19 PM) Normal Clear [facility] UA Auto SS Color (U) Yellow 1 (09/24/23 1:19 PM) Normal Yellow [facility] UA Auto SS Comment on above: Interpretive Data: M icroscopic readings are only performed on those samples that meet specific criteria set forth by [facility]. Epithelial cells.squamous Auto (Urine sed) [#/Area] 0-2 graded/HPF Invalid Interpretation Code [facility] UA Auto SS Glucose Ql (U) Negative Normal Negativemg/ dL [facility] UA Auto SS Hemoglobin Auto test strip (U) [Mass/Vol] 1+ mg/dL Invalid Interpretation Code Negativemg/ dL [facility] UA Auto SS Ketones Auto test strip Ql (U) Negative Normal Negativemg/ dL [facility] UA Auto SS Leukocyte esterase Auto test strip Ql (U) 250 Peng/uL Peng/uL Invalid Interpretation Code NegativeLeu /uL [facility] UA Auto SS Mucus Auto Ql (U) Trace graded/LPF Normal Negati vegra ded/LPF [facility] UA Auto SS Nitrite Auto test strip Ql (U) Negative Normal Negativemg/ dL [facility] UA Auto SS pH (U) 5.5 *NA* (09/24/23 1:19 PM) Invalid Interpretation Code 5.0 - 9.0 [facility] UA Auto SS Protein Ql (U) Negative Normal Negativemg/ dL [facility] UA Auto SS RBC Ql (U) 4-20 graded/HPF Invalid Interpretation Code 0-3graded/H PF [facility] UA Auto SS Specific gravity (U) [Rel density] 1.015 *NA* (09/24/23 1:19 PM) Invalid Interpretation Code 1.005 - 1.030 [facility] UA Auto SS Urobilinogen (U) [Mass/Vol] Negative Normal Negativemg/ dL [facility] UA Auto SS WBC Auto (Urine sed) [#/Area] 6-15 graded/HPF Invalid Interpretation Code 0-5graded/H PF [facility] UA Auto SS URINALYSISOrdered By: Vj Martinez on 09-24-2023 UA Spec Desc Clean Catch (09/24/23 1:19 PM) Normal [facility] UA Auto SS Work Phone: Zi 05-08-2022 [facility] Telephone (GASTA5) SAI PINEDA ([id number]) 1970 F Date Time Provider Department 05/08/22 TIFFANI MORALES GASTA5 During your visit today, we recorded the following information about you: Evagreg Jaimeses 05/08/2022 10:45 AM Signed 05/08/22 Patient calling to see if Dr Morales will write her a script for Zofran nausea medication strips. [facility] in [place] [phone] Eva Covarrubias RN 05/11/2022 10:05 AM Signed [...] Fully Assessed Reason for Visit: Patient Question [6991] Order(s):ondansetron orally disintegrating (ZOFRAN ODT) 8 mg [...] Status:Closed by TIFFANI MORALES on 05/10/22 Normal [facility] COPPER, SERUM or PLASMAon Copper, Serum 129 ug/dL Normal 80-158 [facility] Comment on above: Result Comment: Dete ction Limit = 5 Performed By: #### C OPPER #### [facility] [address] [address] [address] Prince Olivas FATTY ACID PROFILEon 023 a-Linolenic Acid C18:3w3 81 nmol/mL Normal 20-200 [facility] Comment on above: Performed By: #### M MA2 #### [facility] [address] [address] [address] Prince Olivas Arachidic Acid C20:0 31 nmol/mL Normal 8-43 [facility] Comment on above: Performed By: #### M MA2 #### [facility] [address] [address] [address] Prince Olivas Arachidonic Acid, C20:4w6 943 nmol/mL Normal 310-1420 [facility] Comment on above: Performed By: #### M MA2 #### [facility] [address] [address] [address] Prince Olivas DHA, C22:6w3 85 nmol/mL Normal 45-365 [facility] Comment on above: Performed By: #### M MA2 #### [facility] [address] [address] [address] Prince Olivas Docosenoic Acid C22:1 5 nmol/mL Normal 1-10 [facility] Comment on above: Performed By: #### M MA2 #### [facility] [address] [address] [address] Prince Olivas DPA, C22:5w3 58 nmol/mL Normal 13-75 [facility] Comment on above: Performed By: #### M MA2 #### [facility] [address] [address] [address] Prince Olivas DPA, C22:5w6 18 nmol/mL Normal 6-55 [facility] Comment on above: Performed By: #### M MA2 #### [facility] [address] [place] [address] Dr. Prince Olivas DTA, C22:4w6 28 nmol/mL Normal 10-40 [facility] Comment on above: Performed By: #### M MA2 #### [facility] [address] [address] [address] Prince Olivas EER Fatty Acid Profile, [facility] See Note Normal [facility] Comment on above: Result Comment: Auth orized individuals can access the [facility] Enhanced Report using the following link: [email or web address] Performed By: #### M MA2 #### [facility] [address] [address] [address] Prince Olivas EPA, C20:5w3 90 nmol/mL Normal 8-130 [facility] Comment on above: Performed By: #### M MA2 #### [facility] [address] [address] [address] Prince Olivas g-Linolenic Acid C18:3w6 139 nmol/mL Critically high 10-120 [facility] Comment on above: Performed By: #### M MA2 #### [facility] [address] [address] [address] Prince Olivas l-s-Jtdigwssd Acid C20:3w6 211 nmol/mL Normal 45-340 [facility] Comment on above: Performed By: #### M MA2 #### [facility] [address] [place] [address] Dr. Prince Olivas Hexadecenoic Acid C16:1w9 56 nmol/mL Normal 14-95 [facility] Comment on above: Performed By: #### M MA2 #### [facility] [address] [address] [address] Prince Olivas Image . Normal [facility] Comment on above: Performed By: #### M MA2 #### [facility] [address] [address] [address] Prince Olivas Inter, Fatty Acids Profile SP See Note Normal [facility] Comment on above: Result Comment: Incr eased concentration of omega-6 gamma- linolenic acid, possibly reflecting dietary artifacts. INTERPRETIVE INFORMATION: Fatty Acids Profile, Essential Ser/Plas This test does not screen for disorders of peroxisomal biogenesis/function. This test was developed and its performance characteristics determined by [employer]. It has not been cleared or approved by the [place] Food and Drug Administration. This test was performed in a CLIA certified laboratory and is intended for clinical purposes. Performed By: #### M MA2 #### [facility] [address] [place] [address] Dr. Prince Olivas Lauric Acid C12:0 12 nmol/mL Normal 1-200 [facility] Comment on above: Performed By: #### M MA2 #### [facility] [address] [address] [address] Prince Olivas Linoleic Acid C18:2w6 3844 nmol/mL Normal 9035-3568 [facility] Comment on above: Performed By: #### M MA2 #### [facility] [address] [place] [address] Dr. Prince Olivas [place] Acid C20:3w9 29 nmol/mL Normal 1-35 [facility] Comment on above: Performed By: #### M MA2 #### [facility] [address] [address] [address] Prince Olivas Myristic Acid C14:0 178 nmol/mL Normal 20-520 [facility] Comment on above: Performed By: #### M MA2 #### [facility] [address] [address] [address] Prince Olivas Nervonic Acid C24:1w9 138 nmol/mL Normal 35-145 [facility] Comment on above: Performed By: #### M MA2 #### [facility] [address] [address] [address] Prince Olivas Oleic Acid C18:1w9 2898 nmol/mL Normal 740-3900 [facility] Comment on above: Performed By: #### M MA2 #### [facility] [address] [address] [address] Prince Olivas Palmitic Acid C16:0 3316 nmol/mL Normal 4562-8766 [facility] Comment on above: Performed By: #### Marine MA2 #### [facility] [address] [address] [address] Prince Olivas Palmitoleic Acid C16:1w7 355 nmol/mL Normal 35-580 [facility] Comment on above: Performed By: #### M MA2 #### [facility] [address] [address] [address] Prince Olivas Stearic Acid C18:0 1072 nmol/mL Normal 280-1250 [facility] Comment on above: Performed By: #### Marine MA2 #### [facility] [address] [address] [address] Prince Olivas Total Fatty Acids 13.7 mmol/L Normal 4.5-15.0 [facility] Comment on above: Performed By: #### M MA2 #### [facility] [address] [address] [address] Prince Olivas Total Monounsaturated Acid 3.6 mmol/L Normal 0.9-4.7 [facility] Comment on above: Performed By: #### Marine MA2 #### [facility] [address] [address] [address] Prince Olivas Total Polyunsaturated Acid 5.5 mmol/L Normal 2.1-6.2 [facility] Comment on above: Performed By: #### M MA2 #### [facility] [address] [place] [address] Dr. Prince Olivas Total Saturated Acid 4.6 mmol/L Normal 1.5-5.3 [facility] Comment on above: Performed By: #### M MA2 #### [facility] [address] [address] [address] Prince Olivas Total w3 0.31 mmol/L Normal 0.12-0.55 [facility] Comment on above: Performed By: #### M MA2 #### [facility] [address] [place] [address] Dr. Prince Olivas Total w6 5.2 mmol/L Normal 1.8-5.7 [facility] Comment on above: Performed By: #### Marine MA2 #### [facility] [address] [place] [address] Dr. Prince Olivas Triene Tetraene Ratio 0.031 Normal 0.004-0.051 [facility] Comment on above: Performed By: #### M MA2 #### [facility] [address] [place] [address] Dr. Prince Olivas Vaccenic Acid C18:1w7 149 nmol/mL Normal 50-250 [facility] Comment on above: Performed By: #### M MA2 #### [facility] [address] [place] [address] Dr. Prince Olivas VITAMIN Aon 04-06-2022 Vitamin A 54.9 ug/dL Normal 20.1-62.0 [facility] Comment on above: Result Comment: Refe [...] Food and Drug Administration. Performed By: #### Marine MA2 #### [facility] [address] [place] [address] Dr. Prince Olivas VITAMIN Luciano 04-06-2022 Vitamin E (Alpha T) 9.9 mg/L Normal 7.0-25.1 [facility] Comment on above: Performed By: #### S ELNIUM #### [facility] [address] [address] [address] Prince Olivas Vitamin E (Gamma T) 2.1 mg/L Normal 0.5-5.5 [facility] Comment on above: Result Comment: Refe rence intervals for alpha and gamma- tocopherol determined from National Health and Nutrition Examination Survey, 8525-6100. Individuals with alpha-tocopherol levels less than 5.0 mg/L are considered vitamin E deficient. Performed By: #### S ELEDISON #### [facility] [address] [address] [address] Prince Olivas ZINC SERUM OR PLASMAon 04-06 Zinc, Plasma or Serum 75 ug/dL Normal 44-115 [facility] Comment on above: Result Comment: Dete ction Limit = 5 Performed By: #### L IPID, CMP #### [facility] [address] [address] [address] Prince Olivas CNPNon 04-05-2022 CNPN Telephone (GASTA5) SAI PINEDA ([id number]) 1970 F Date Time Provider Department 04/05/22 [...] Status:Closed by TIFFANI MORALES on 04/05/22 Normal [facility] METHYLMALONIC ACID (MMA)on 0 04-05-2022 Methylmalonic Acid, Serum 498 nmol/L Critically high 0-378 [facility] Comment on above: Performed By: #### M MA2 #### [facility] [address] [place] [address] Dr. Prince Olivas ANES POSTPROC EVALon 023 ANES POSTPROC EVAL HNO ID: [id number] Author: Altagracia Salvador MD Service: ? Author [...] Morales MD; Altagracia Salvador MD; Frederick Chaves APRN.[employer] Responsible Provider: Altagracia Salvador MD Anesthesia Type: [...] with this procedure. Documented by Frederick Chaves APRN.[employer] 04/04/2022 3:31 PM EST SIGNATURE: Altagracia Salvador MD PATIENT NAME: Sai Pineda DATE: April 04, 2022 TIME: 3:51 PM CSN: [id number] Normal [facility] ANES PRE-OPon 04-04-2022 ANES PRE-OP HNO ID: [id number] Author: Altagracia Salvador MD Service: ? Author Type: Anesthesiologist Type: Anesthesia Preprocedure Evaluation Filed: 04/04/2022 12:56 PM Note Text: ANESTHESIOLOGY DAY OF SURGERY NOTE : 1970 Procedure Information Date/Time: 04/04/22 1300 Scheduled providers: Tiffani Morales MD; Altagracia Salvador MD; Frederick Chaves APRN.[employer] Procedure: ENTEROSCOPY Location: Gastroenterology Estimated body mass index is 15.36 kg/m? as calculated from the following: Height as of this encounter: 172.7 cm (5' 8 ). Weight as of this encounter: 45.8 kg (101 lb). Most recent hematocrit and potassium results: No results found for this basename: HCT,HEMATOCRIT,K,POTASSIUM +COPD I - PHYSICAL EVALUATION AIRWAY Patient [...] and consent discussed: yes. Patient / Responsible Constitution Party agrees to proceed: yes Patient / Surrogate [...] April 04, 2022 TIME: 12:55 PM CSN: [id number] Normal [facility] ENTEROSCOPYon 04-04-2022 [facility] HISTORY PHYSICALon 3 HISTORY PHYSICAL HNO ID: [id number] Author: Tiffani Morales MD Service: Gastroenterology Author [...] Sai Pineda DATE: 04/04/2022 TIME: 1302 Normal [facility] METHYLMALONIC ACID (MMA)on 0 04-04-2022 Methylmalonic Acid, Serum 397 nmol/L Critically high 0-378 [facility] Comment on above: Performed By: #### M MA2 #### [facility] [address] [place] [address] Dr. Prince Olivas NURSING PROGon 04-04-2022 NURSING PROG HNO ID: [id number] Author: Eduardo Harrington RN Service: Nursing Author [...] Electronically Signed By: Eduardo Harrington RN Normal [facility] NURSING PROG HNO ID: [id number] Author: Rima Kirk RN Service: Nursing Author [...] Rima Kirk RN In Department: GASTROENTEROLOGY Normal [facility] SELENIUM, PLASMAon 3 Selenium, Serum/Plasma 124 ug/L Normal 93-198 [facility] Comment on above: Performed By: #### S ELNIUM #### [facility] [address] [place] [address] Dr. Prince Olivas SURGICAL PATHOLOGYon 023 CASE REPORT Normal [facility] Comment on above: Order Comment: Speci men Type: TISSUE SPECIMENOrdering Facility: [facility] Address: [address] [place] [id number] Result Comment: Surg ica Pathology Report Case: [id number] Authorizing Provider: Tiffani Morales MD Collected: 04/04/2022 02:57 PM Ordering Location: Gastroenterology Received: 04/04/2022 05:34 PM Pathologist: Gonzalo Lemons MD Specimen: JEJUNUM BIOPSY, polyp: r/o adenoma Performed By: #### S ####[facility] [id number] [address] FINAL DIAGNOSIS Normal [facility] Comment on above: Order Comment: Speci men Type: TISSUE SPECIMENOrdering Facility: [facility] Address: [address] [place] [address] Result Comment: A. J rosaunum, polyp, biopsy: - Small intestine with gastric heterotopia. - Negative for dysplasia and malignancy. Performed By: #### S ####[facility] [id number] [address] FINAL PERFORMING LAB Normal [facility] Comment on above: Order Comment: Speci men Type: TISSUE SPECIMENOrdering Facility: [facility] Address: [address] [place] [address] Result Comment: Diag nostic interpretation performed at [facility], [address] [place] [address] CLIA# [id number] Behaviour Support Teacher: Constantin Quevedo M.D. Performed By: #### S ####[facility] [id number] [address] GROSS DESCRIPTION Normal [facility] Comment on above: Order Comment: Speci men Type: TISSUE SPECIMENOrdering Facility: [facility] Address: [address] [place] [address] Result Comment: A. J EJUNUM BIOPSY Received in formalin is a segment of proctor polypoid tissue measuring 1.2 x 1.0 x 0.4 cm. No stalk is noted. The line of resection is noted. The specimen is bisected and totally submitted in formalin in one cassette. Gross examination performed at [facility], [address] [place] [address] MDM 04/04/2022 10:13 PM Performed By: #### S ####[facility] [id number] [address] NATALIE FOLATE, RBC AND SERUMon 03-18 Folate 7.5 ng/mL Normal >3.0 [facility] Comment on above: Result Comment: A se rum folate concentration of less than 3.1 ng/mL is considered to represent clinical deficiency. Performed By: #### L IPID, CMP #### [facility] [address] [place] [address] Dr. Prince Olivas Folate, Hemolysate 297.0 ng/mL Normal Not Estab. [facility] Comment on above: Performed By: #### L IPID, CMP #### [facility] [address] [place] [address] Dr. Prince Olivas Folate, RBC 721 ng/mL Normal >498 [facility] Comment on above: Performed By: #### L IPID, CMP #### [facility] [address] [place] [address] Dr. Prince Olivas Hematocrit (Bld) [Volume fraction] 41.2 % Normal 34.0-46.6 [facility] Comment on above: Performed By: #### L IPID, CMP #### [facility] [address] [place] [address] Dr. Prince Olivas CBC AUTO DIFFon 03-31-2022 BASO # 0.1 103/ul Normal 0.0-0.1 [facility] Comment on above: Performed By: #### L IPID, CMP #### [facility] [address] [place] [address] Dr. Prince Olivas Basophils/100 WBC (Bld) 0.6 % Normal 0.2-2.0 [facility] Comment on above: Performed By: #### L IPID, CMP #### [facility] [address] [place] [address] Dr. Prince Olivas EO # 0.2 103/ul Normal 0.0-0.7 [facility] Comment on above: Performed By: #### L IPID, CMP #### [facility] [address] [place] [address] Dr. Prince Olivas Eosinophils/100 WBC (Bld) 2.9 % Normal 0.9-7.0 [facility] Comment on above: Performed By: #### L IPID, CMP #### [facility] [address] [place] [address] Dr. Prince Olivas Erythrocyte distribution width (RBC) [Ratio] 13.2 % Normal 11.0-15.0 [facility] Comment on above: Performed By: #### L IPID, CMP #### [facility] [address] [place] [address] Dr. Prince Olivas Hematocrit (Bld) [Volume fraction] 41.1 % Normal 36.0-48.0 [facility] Comment on above: Performed By: #### L IPID, CMP #### [facility] [address] [place] [address] Dr. Prince Olivas Hemoglobin (Bld) [Mass/Vol] 13.6 g/dL Normal 12.0-16.0 [facility] Comment on above: Performed By: #### L IPID, CMP #### [facility] [address] [place] [address] Dr. Prince Olivas IG # 0.04 10e3/ul Critically high 0.00-0.03 [facility] Comment on above: Performed By: #### L IPID, CMP #### [facility] [address] [place] [address] Dr. Prince Olivas IG % 0.5 % Normal 0.0-0.5 [facility] Comment on above: Performed By: #### L IPID, CMP #### [facility] [address] [place] [address] Dr. Prince Olivas LYMPH # 2.5 103/ul Normal 1.2-3.8 [facility] Comment on above: Performed By: #### L IPID, CMP #### [facility] [address] [place] [address] Dr. Prince Olivas Lymphocytes/100 WBC (Bld) 31.5 % Normal 20.5-60.0 [facility] Comment on above: Performed By: #### L IPID, CMP #### [facility] [address] [place] [address] Dr. Prince Olivas MANUAL DIFF REQ NO Normal [facility] Comment on above: Performed By: #### L IPID, CMP #### [facility] [address] [place] [address] Dr. Prince Olivas MCH (RBC) [Entitic mass] 30.5 pg Normal 26.7-34.0 [facility] Comment on above: Performed By: #### L IPID, CMP #### [facility] [address] [place] [address] Dr. Prince Olivas MCHC (RBC) [Mass/Vol] 33.1 g/dL Normal 29.9-35.2 [facility] Comment on above: Performed By: #### L IPID, CMP #### [facility] [address] [place] [address] Dr. Prince Olivas MCV (RBC) [Entitic vol] 92.2 fL Normal 81.0-99.0 [facility] Comment on above: Performed By: #### L IPID, CMP #### [facility] [address] [place] [address] Dr. Prince Olivas MONO # 0.6 103/ul Normal 0.3-0.8 [facility] Comment on above: Performed By: #### L IPID, CMP #### [facility] [address] [place] [address] Dr. Prince Olivas Monocytes/100 WBC (Bld) 7.0 % Normal 1.7-12.0 [facility] Comment on above: Performed By: #### L IPID, CMP #### [facility] [address] [place] [address] Dr. Prince Olivas NEUT # 4.5 103/ul Normal 1.4-6.5 [facility] Comment on above: Performed By: #### L IPID, CMP #### [facility] [address] [place] [address] Dr. Prince Olivas Neutrophils/100 WBC (Bld) 57.5 % Normal 43.0-75.0 [facility] Comment on above: Performed By: #### L IPID, CMP #### [facility] [address] [address] [address] Prince Olivas Platelet mean volume (Bld) [Entitic vol] 11.5 fL Normal 9.5-13.5 [facility] Comment on above: Performed By: #### L IPID, CMP #### [facility] [address] [address] [address] Prince Olivas PLT 224 103/ul Normal 150-450 [facility] Comment on above: Performed By: #### L IPID, CMP #### [facility] [address] [address] [address] Prince Olivas RBC 4.46 106/ul Normal 4.20-5.40 [facility] Comment on above: Performed By: #### L IPID, CMP #### [facility] [address] [place] [address] Dr. Prince Olivas WBC 7.9 103/ul Normal 4.0-11.0 [facility] Comment on above: Performed By: #### L IPID, CMP #### [facility] [address] [place] [address] Dr. Prince Olivas CRPon 03-31-2022 CRP [Mass/Vol] mg/L Normal <=1.0 [facility] Comment on above: Performed By: #### C OPPER #### [facility] [address] [place] [address] Dr. Prince Olivas FERRITINon 03-31-2022 Ferritin [Mass/Vol] 99.0 ng/mL Normal 8.0-252.0 [facility] Comment on above: Performed By: #### F ERR, VITB12, VITAD, FETIBC #### [facility] [address] [place] [address] Dr. Prince Olivas IRON AND TIBCon 03-31-2022 % SATURATION 29.3 % Normal [facility] Comment on above: Performed By: #### F ERR, VITB12, VITAD, FETIBC #### [facility] [address] [place] [address] Dr. Prince Olivas Iron [Mass/Vol] 90.0 ug/dL Normal 50.0-170.0 [facility] Comment on above: Performed By: #### F ERR, VITB12, VITAD, FETIBC #### [facility] [address] [place] [address] Dr. Prince Olivas TIBC DIRECT 307.0 ug/dL Normal 250.0-450.0 [facility] Comment on above: Performed By: #### F ERR, VITB12, VITAD, FETIBC #### [facility] [address] [place] [address] Dr. Prince Olivas MAGNESIUMon 03-31-2022 Magnesium [Mass/Vol] 2.0 mg/dL Normal 1.8-2.4 [facility] Comment on above: Performed By: #### C OPPER #### [facility] [address] [place] [address] Dr. Prince Olivas PHOSPHORUSon 03-31-2022 Phosphate [Mass/Vol] 3.6 mg/dL Normal 2.6-4.7 [facility] Comment on above: Performed By: #### C OPPER #### [facility] [address] [place] [address] Dr. Prince Olivas PROF 14(COMP METB)on 023 Albumin [Mass/Vol] 3.9 g/dL Normal 3.4-5.0 [facility] Comment on above: Performed By: #### C OPPER #### [facility] [address] [place] [address] Dr. Prince Olivas Albumin/Globulin [Mass ratio] 1.3 {ratio} Normal [facility] Comment on above: Performed By: #### C OPPER #### [facility] [address] [place] [address] Dr. Prince Olivas ALP [Catalytic activity/Vol] 75 U/L Normal 46-116 [facility] Comment on above: Performed By: #### C OPPER #### [facility] [address] [place] [address] Dr. Prince Olivas ALT [Catalytic activity/Vol] 19 U/L Normal 14-59 [facility] Comment on above: Performed By: #### C OPPER #### [facility] [address] [address] [address] Prince Olivas Anion gap [Moles/Vol] 11.3 mmol/L Normal [facility] Comment on above: Performed By: #### C OPPER #### [facility] [address] [address] [address] Prince Olivas AST [Catalytic activity/Vol] 19 U/L Normal 15-37 [facility] Comment on above: Performed By: #### C OPPER #### [facility] [address] [address] [address] Prince Olivas Bilirubin [Mass/Vol] 0.3 mg/dL Normal 0.2-1.0 [facility] Comment on above: Performed By: #### C OPPER #### [facility] [address] [address] [address] Prince Olivas Calcium [Mass/Vol] 9.0 mg/dL Normal 8.5-10.1 [facility] Comment on above: Performed By: #### C OPPER #### [facility] [address] [address] [address] Prince Olivas Chloride [Moles/Vol] 105 mmol/L Normal 98-107 [facility] Comment on above: Performed By: #### C OPPER #### [facility] [address] [address] [address] Prince Olivas CO2 [Moles/Vol] 28.9 mmol/L Normal 21.0-32.0 [facility] Comment on above: Performed By: #### C OPPER #### [facility] [address] [address] [address] Prince Olivas Creatinine [Mass/Vol] 0.79 mg/dL Normal 0.55-1.02 [facility] Comment on above: Performed By: #### C OPPER #### [facility] [address] [address] [address] Prince Olivas EGFR-AF MOSOTHO >60 Normal >=60 [facility] Comment on above: Performed By: #### C OPPER #### [facility] [address] [address] [address] Prince Olivas EGFR-NON AF MOSOTHO >60 Normal >=60 [facility] Comment on above: Performed By: #### C OPPER #### [facility] [address] [place] [address] Dr. Prince Olivas Globulin (S) [Mass/Vol] 3.0 g/dL Normal [facility] Comment on above: Performed By: #### C OPPER #### [facility] [address] [address] [address] Prince Olivas Glucose [Mass/Vol] 91 mg/dL Normal 74-106 [facility] Comment on above: Performed By: #### C OPPER #### [facility] [address] [place] [address] Dr. Prince Olivas Potassium [Moles/Vol] 4.2 mmol/L Normal 3.5-5.1 [facility] Comment on above: Performed By: #### C OPPER #### [facility] [address] [place] [address] Dr. Prince Olivas Protein [Mass/Vol] 6.9 g/dL Normal 6.4-8.2 [facility] Comment on above: Performed By: #### C OPPER #### [facility] [address] [place] [address] Dr. Prince Olivas Sodium [Moles/Vol] 141 mmol/L Normal 136-145 [facility] Comment on above: Performed By: #### C OPPER #### [facility] [address] [place] [address] Dr. Prince Olivas Urea nitrogen [Mass/Vol] 10.0 mg/dL Normal 7.0-18.0 [facility] Comment on above: Performed By: #### C OPPER #### [facility] [address] [place] [address] Dr. Prince Olivas Urea nitrogen/Creatinine [Mass ratio] 12.7 mg/mg Normal [facility] Comment on above: Performed By: #### C OPPER #### [facility] [address] [place] [address] Dr. Prince Olivas PROTIMEon 03-31-2022 INR Coag (PPP) [Relative time] 0.94 {INR} Normal [facility] Comment on above: Performed By: #### M MA2 #### [facility] [address] [place] [address] Dr. Prince Olivas INR GUIDELINES SEE BELOW Normal [facility] Comment on above: Result Comment: BRIANNA RED INR: 2.0 - 3.0 CONDITIONS NOT LISTED BELOW 2.5 - 3.5 FOR PROSTHETIC HEART VALVE REPLACEMENT 2.5 - 3.5 RECURRENT THROMBOSIS Performed By: #### M MA2 #### [facility] [address] [place] [address] Dr. Prince Olivas PT Coag (PPP) [Time] 10.0 s Normal 9.0-11.6 [facility] Comment on above: Performed By: #### M MA2 #### [facility] [address] [place] [address] Dr. Prince Olivas TRIGLYCERIDEon 03-31-2022 Triglyceride [Mass/Vol] 103 mg/dL Normal <=150 [facility] Comment on above: Performed By: #### C OPPER #### [facility] [address] [place] [address] Dr. Prince Olivas VITAMIN B12on 03-31-2022 Cobalamin (Vitamin B12) [Mass/Vol] 259.0 pg/mL Normal 193.0-986.0 [facility] Comment on above: Performed By: #### F ERR, VITB12, VITAD, FETIBC #### [facility] [address] [place] [address] Dr. Prince Olivas VITAMIN D 25 OHon 03-31-2022 VIT D 25-OH 49.0 ng/mL Normal [facility] Comment on above: Performed By: #### F ERR, VITB12, VITAD, FETIBC #### [facility] [address] [place] [address] Dr. Prince Olivas VIT D RANGES SEE BELOW Normal [facility] Comment on above: Result Comment: <20 ng/mL Vit D deficient 20 - <30 ng/mL Vit D insufficient 30 - 100 ng/mL Vit D sufficient >100 ng/mL Potential Toxicity Performed By: #### F ERR, VITB12, VITAD, FETIBC #### [facility] [address] [place] [address] Dr. Prince Olivas CBC AUTO DIFFon 03-28-2022 BASO # 0.1 103/ul Normal 0.0-0.1 [facility] Comment on above: Performed By: #### S ELNIUM #### [facility] [address] [place] [address] Dr. Prince Olivas Basophils/100 WBC (Bld) 0.6 % Normal 0.2-2.0 [facility] Comment on above: Performed By: #### S ELNIUM #### [facility] [address] [place] [address] Dr. Prince Olivas EO # 0.2 103/ul Normal 0.0-0.7 [facility] Comment on above: Performed By: #### S ELNIUM #### [facility] [address] [place] [address] Dr. Prince Olivas Eosinophils/100 WBC (Bld) 2.4 % Normal 0.9-7.0 [facility] Comment on above: Performed By: #### S ELNIUM #### [facility] [address] [place] [address] Dr. Prince Olivas Erythrocyte distribution width (RBC) [Ratio] 13.2 % Normal 11.0-15.0 [facility] Comment on above: Performed By: #### S ELNIUM #### [facility] [address] [place] [address] Dr. Prince Olivas Hematocrit (Bld) [Volume fraction] 44.3 % Normal 36.0-48.0 [facility] Comment on above: Performed By: #### S ELNIUM #### [facility] [address] [place] [address] Dr. Prince Olivas Hemoglobin (Bld) [Mass/Vol] 13.8 g/dL Normal 12.0-16.0 [facility] Comment on above: Performed By: #### S ELNIUM #### [facility] [address] [address] [address] Prince Olivas IG # 0.02 10e3/ul Normal 0.00-0.03 [facility] Comment on above: Performed By: #### S ELNIUM #### [facility] [address] [place] [address] Dr. Prince Olivas IG % 0.2 % Normal 0.0-0.5 [facility] Comment on above: Performed By: #### S ELNIUM #### [facility] [address] [place] [address] Dr. Prince Olivas LYMPH # 3.1 103/ul Normal 1.2-3.8 [facility] Comment on above: Performed By: #### S ELNIUM #### [facility] [address] [place] [address] Dr. Prince Olivas Lymphocytes/100 WBC (Bld) 34.8 % Normal 20.5-60.0 [facility] Comment on above: Performed By: #### S ELNIUM #### [facility] [address] [place] [address] Dr. Prince Olivas MANUAL DIFF REQ NO Normal [facility] Comment on above: Performed By: #### S ELNIUM #### [facility] [address] [place] [address] Dr. Prince Olivas MCH (RBC) [Entitic mass] 30.5 pg Normal 26.7-34.0 [facility] Comment on above: Performed By: #### S ELNIUM #### [facility] [address] [place] [address] Dr. Prince Olivas MCHC (RBC) [Mass/Vol] 31.2 g/dL Normal 29.9-35.2 [facility] Comment on above: Performed By: #### S ELNIUM #### [facility] [address] [place] [address] Dr. Prince Olivas MCV (RBC) [Entitic vol] 98.0 fL Normal 81.0-99.0 [facility] Comment on above: Performed By: #### S ELNIUM #### [facility] [address] [address] [address] Prince Olivas MONO # 0.5 103/ul Normal 0.3-0.8 [facility] Comment on above: Performed By: #### S ELNIUM #### [facility] [address] [address] [address] Prince Olivas Monocytes/100 WBC (Bld) 6.0 % Normal 1.7-12.0 [facility] Comment on above: Performed By: #### S ELNIUM #### [facility] [address] [place] [address] Dr. Prince Olivas NEUT # 5.0 103/ul Normal 1.4-6.5 [facility] Comment on above: Performed By: #### S ELNIUM #### [facility] [address] [place] [address] Dr. Prince Olivas Neutrophils/100 WBC (Bld) 56.0 % Normal 43.0-75.0 [facility] Comment on above: Performed By: #### S ELNIUM #### [facility] [address] [place] [address] Dr. Prince Olivas Platelet mean volume (Bld) [Entitic vol] 11.5 fL Normal 9.5-13.5 [facility] Comment on above: Performed By: #### S ELNIUM #### [facility] [address] [place] [address] Dr. Prince Olivas PLT 221 103/ul Normal 150-450 [facility] Comment on above: Performed By: #### S ELNIUM #### [facility] [address] [place] [address] Dr. Prince Olivas RBC 4.52 106/ul Normal 4.20-5.40 [facility] Comment on above: Performed By: #### S ELNIUM #### [facility] [address] [place] [address] Dr. Prince Olivas WBC 8.9 103/ul Normal 4.0-11.0 [facility] Comment on above: Performed By: #### S ELNIUM #### [facility] [address] [address] [address] Prince Pinon 03-28-2022 CNPN Telephone (GASTPR) SAI PINEDA ([id number]) 1970 F Date Time Provider Department 03/28/22 EDUARDO HARRINGTON [facility] During your visit today, we recorded the following information about you: Eduardo Harrington RN 03/28/2022 3:52 PM Signed Attempted to reach the patient at the contact number that they provided [phone] (home) . Unable to speak with patient so without identifying the patient the following information was left on their voice mail: Date of procedure, location and report time A message was left informing the patient/patient guest service representative they must have a responsible adult [...] Number to call with questions or concerns [phone] Number to call to cancel their procedure [phone] Eduardo Harrington RN Allergies As of Date: 03/28/2022 (No Known Allergies) Date Reviewed: 01/01/2022 Reviewed by: Juan Carlos Saucedo LPN - Fully Assessed Reason for Visit: Appointment Confirmation [[id number]] Prescriptions as of 03/28/2022 - prochlorperazine (COMPAZINE) [...] Status:Closed by EDUARDO HARRINGTON on 03/28/22 Normal [facility] PROF 14(COMP METB)on 023 Albumin [Mass/Vol] 4.2 g/dL Normal 3.4-5.0 [facility] Comment on above: Performed By: #### L IPID, CMP #### [facility] [address] [place] [address] Dr. Prince Olivas Albumin/Globulin [Mass ratio] 1.4 {ratio} Normal [facility] Comment on above: Performed By: #### L IPID, CMP #### [facility] [address] [place] [address] Dr. Prince Olivas ALP [Catalytic activity/Vol] 86 U/L Normal 46-116 [facility] Comment on above: Performed By: #### L IPID, CMP #### [facility] [address] [place] [address] Dr. Prince Olivas ALT [Catalytic activity/Vol] 13 U/L Critically low 14-59 [facility] Comment on above: Performed By: #### L IPID, CMP #### [facility] [address] [place] [address] Dr. Prince Olivas Anion gap [Moles/Vol] 9.7 mmol/L Normal [facility] Comment on above: Performed By: #### L IPID, CMP #### [facility] [address] [place] [address] Dr. Prince Olivas AST [Catalytic activity/Vol] 15 U/L Normal 15-37 [facility] Comment on above: Performed By: #### L IPID, CMP #### [facility] [address] [place] [address] Dr. Prince Olivas Bilirubin [Mass/Vol] 0.2 mg/dL Normal 0.2-1.0 [facility] Comment on above: Performed By: #### L IPID, CMP #### [facility] [address] [place] [address] Dr. Prince Olivas Calcium [Mass/Vol] 9.2 mg/dL Normal 8.5-10.1 [facility] Comment on above: Performed By: #### L IPID, CMP #### [facility] [address] [place] [address] Dr. Prince Olivas Chloride [Moles/Vol] 102 mmol/L Normal 98-107 [facility] Comment on above: Performed By: #### L IPID, CMP #### [facility] [address] [place] [address] Dr. Prince Olivas CO2 [Moles/Vol] 28.9 mmol/L Normal 21.0-32.0 [facility] Comment on above: Performed By: #### L IPID, CMP #### [facility] [address] [place] [address] Dr. Prince Olivas Creatinine [Mass/Vol] 0.81 mg/dL Normal 0.55-1.02 [facility] Comment on above: Performed By: #### L IPID, CMP #### [facility] [address] [address] [address] Prince Olivas EGFR-AF MOSOTHO >60 Normal >=60 [facility] Comment on above: Performed By: #### L IPID, CMP #### [facility] [address] [address] [address] Prince Olivas EGFR-NON AF MOSOTHO >60 Normal >=60 [facility] Comment on above: Performed By: #### L IPID, CMP #### [facility] [address] [address] [address] Prince Olivas Globulin (S) [Mass/Vol] 3.1 g/dL Normal [facility] Comment on above: Performed By: #### L IPID, CMP #### [facility] [address] [place] [address] Dr. Prince Olivas Glucose [Mass/Vol] 74 mg/dL Normal 74-106 [facility] Comment on above: Performed By: #### L IPID, CMP #### [facility] [address] [place] [address] Dr. Prince Olivas Potassium [Moles/Vol] 4.1 mmol/L Normal 3.5-5.1 [facility] Comment on above: Performed By: #### L IPID, CMP #### [facility] [address] [place] [address] Dr. Prince Olivas Protein [Mass/Vol] 7.3 g/dL Normal 6.4-8.2 [facility] Comment on above: Performed By: #### L IPID, CMP #### [facility] [address] [place] [address] Dr. Prince Olivas Sodium [Moles/Vol] 138 mmol/L Normal 136-145 [facility] Comment on above: Performed By: #### L IPID, CMP #### [facility] [address] [place] [address] Dr. Prince Olivas Urea nitrogen [Mass/Vol] 11.0 mg/dL Normal 7.0-18.0 [facility] Comment on above: Performed By: #### L IPID, CMP #### [facility] [address] [place] [address] Dr. Prince Olivas Urea nitrogen/Creatinine [Mass ratio] 13.6 mg/mg Normal [facility] Comment on above: Performed By: #### L IPID, CMP #### [facility] [address] [address] [address] Prince Olivas TSHon 03-28-2022 TSH 0.948 uIU/mL Normal 0.358-3.740 [facility] Comment on above: Performed By: #### L IPID, CMP #### [facility] [address] [address] [address] Prince Olivas VIT B12 AND FOLATEon 023 Cobalamin (Vitamin B12) [Mass/Vol] 260.0 pg/mL Normal 193.0-986.0 [facility] Comment on above: Performed By: #### C OPPER #### [facility] [address] [address] [address] Prince Olivas FOLATE 7.90 ng/mL Critically low 8.60-58.90 [facility] Comment on above: Performed By: #### C OPPER #### [facility] [address] [place] [address] Dr. Prince Olivas NM GASTRIC EMPTYING SOLIDon 02-05-2022 NM GASTRIC EMPTYING SOLID * * *Final Report* * * DATE OF EXAM: Feb 05 2022 12:26PM [facility] 0017 - NM GASTRIC EMPTYING SOLID / PROCEDURE REASON: Nausea [...] rate of gastric emptying of solid meal. Spiral Winding Machine Helper: FAN Transcribe Date/Time: Feb 05 2022 1:36P Dictated by : SHER RODRIGUEZ MD This examination was interpreted and the report reviewed and electronically signed by: RENATO PATEL MD on Feb 05 2022 2:03PM EST [id number] Normal [facility] CNPNon 01-05-2022 CNPN Telephone (GAPRA3) SAI PINEDA ([id number]) 1970 F Date Time Provider Department 01/05/22 TIFFANI MORALES GAPRA3 During your visit today, we recorded [...] Encounter Status:Closed by TIFFANI MORALES on 01/05/22 [facility] 01-03-2022 [facility] Telephone (GASTMN) SAI PINEDA ([id number]) 1970 F Date Time Provider Department 01/03/22 ANASTASIYA MOSQUEDA During your visit today, we recorded the following information about you: Anastasiya Mosqueda PA-C 01/03/2022 10:19 AM Signed EGD results discussed with patient as requested, pathology still pending. Will reach out to patient once resulted. Red flags for in person care discussed. GRECIA Castorena [facility] 01/05/2022 10:02 AM Signed Patient requests return call [phone] Elizabeth Jimenez [facility] Allergies As of Date: 01/03/2022 (No Known [...] Encounter Status:Closed by ANASTASIYA MOSQUEDA on 01/03/22 [facility] 01-02-2022 [facility] Telephone (DDQ) SAI PINEDA ([id number]) 1970 F Date Time Provider Department 01/02/22 ANASTASIYA MOSQUEDA DDQ During your visit today, we recorded the following information about you: Leydi Trejolejayme 01/02/2022 8:52 AM Signed Patient called to get results from her procedure. Please contact her at number listed in system. Thanks Leydi Henry Workleader Allergies As of Date: 01/02/2022 [...] Raynauds phenomenon [I73.00] 10/24/2012 Encounter Status:Closed by LEYDI HUIZAR on 01/02/22 [facility] ANES POSTPROC EVALon 10--2 022 ANES POSTPROC EVAL HNO ID: [id number] Author: Sher Hudson MD Service: ? Author [...] SIGNATURE: Sher Hudson MD PATIENT NAME: Sai Freedovern DATE: January 01, 2022 TIME: 5:13 PM CSN: [id number] Normal [facility] ANES PRE-OPon 01-01-2022 ANES PRE-OP HNO ID: [id number] Author: Sher Hudson MD Service: ? Author Type: Anesthesiologist Type: Anesthesia Preprocedure Evaluation Filed: 01/01/2022 3:42 PM Note Text: ANESTHESIOLOGY DAY OF SURGERY NOTE : 1970 Procedure Information Date/Time: 01/01/22 1600 Scheduled providers: Tiffani Morales MD; Sher Hudson MD; Kirsten Dalton APRN.[employer] Procedure: EGD DIAGNOSTIC Location: Gastroenterology Estimated body mass index is 15.36 kg/m? as calculated from the following: Height as of this encounter: 172.7 cm (5' 8 ). Weight as of this encounter: 45.8 kg (101 lb). Most recent hematocrit and potassium results: No results found for this basename: HCT,HEMATOCRIT,K,POTASSIUM Relevant Problems No relevant active problems I [...] and consent discussed: yes. Patient / Responsible Constitution Party agrees to proceed: yes Patient / Surrogate agrees to blood products: Yes Significant changes in the patient condition since the History and Physical, not otherwise documented in primary service progress note: no. Potential Anesthesia issues that may suggest increased risk of complications or contraindication to planned procedure: none. Vitals Value Taken Time BP 121/64 01/01/22 1539 Pulse 78 01/01/22 1539 Resp 19 01/01/22 153 Temp 36.3 ?C (97.3 ?F) 01/01/22 153 SpO2 98 % 01/01/221538 Outpatient Medications as of 01/01/2022 Medication Sig [...] January 01, 2022 TIME: 3:42 PM CSN: [id number] [facility] EGD DIAGNOSTICon 01-01-2022 [facility] HISTORY PHYSICALon HISTORY PHYSICAL HNO ID: [id number] Author: Tiffani Morales MD Service: Gastroenterology Author [...] Tiffani Morales MD PATIENT NAME: Sai Pineda [place] DATE: 01/01/2022 TIME: 1600 [facility] NURSING PROGon 01-01-2022 NURSING PROG HNO ID: [id number] Author: Juan Carlos Saucedo LPN Service: ? Author Type: LICENSED NURSE Type: Nursing Progress Note Filed: 01/01/2022 5:18 PM Note Text: AMBULATORY PATIENT EDUCATION NOTE TOPIC: GI PROCEDURES: Esophagogastroduodenoscopy(E GD) with or without biopies based on clinical [...] Electronically Signed By: Juan Carlos Saucedo LPN [facility] NURSING PROG HNO ID: [id number] Author: Rima Coleman RN Service: ? Author [...] Rima Coleman RN In Department: GASTROENTEROLOGY [facility] SURGICAL PATHOLOGYon CASE REPORT [facility] Comment on above: Order Comment: Speckimberlee clement Type: TISSUE SPECIMENOrdering Facility: [facility] Address: [address] [place] [address] Result Comment: Surg ical Pathology Report Case: [id number] Authorizing Provider: Tiffani Morales MD Collected: 01/01/2022 04:13 PM Ordering Location: Gastroenterology Received: 01/01/2022 08:38 PM Pathologist: Jyotsna Cartwright MD Specimens: A) - DUODENUM BIOPSY, r/o celiac B) - STOMACH BIOPSY, r/o h. pylori C) - STOMACH (GASTRIC) POLYP BIOPSY, r/o adenoma Performed By: #### S ####[facility] [id number] [address] OF [facility] DIAGNOSIS COMMENT [facility] Comment on above: Order Comment: Robb clement Type: TISSUE SPECIMENOrdering Facility: [facility] Address: [address] [place] [address] Result Comment: A. A denovirus stain is negative for viral inclusions. Dr Valorie Jaimes has reviewed this part of the case and concurs. Laboratory Developed Test (LDT) Disclaimer: Performance characteristics of immunohistochemical, immunofluorescent and chromogenic in-situ hybridization tests have been determined by the performing laboratory within [facility]???s [facility] [place] ([facility], [facility], [facility] or [facility]) in a manner consistent with CLIA requirements. One or more of these tests have not been cleared or approved by the FDA. [facility] is regulated under CLIA as qualified to perform high-complexity testing. These tests are used for clinical purposes. They should not be regarded as investigational or for research. Positive and negative controls stain appropriately. Performed By: #### S ####[facility] [id number] [address] FINAL DIAGNOSIS [facility] Comment on above: Order Comment: Speci men Type: TISSUE SPECIMENOrdering Facility: [facility] Address: [address] [place] [address] Result Comment: A. D uodenum, biopsy: - Incidental and minute tubular adenoma, negative for high grade dysplasia. See comment. - Duodenal mucosa with no diagnostic alterations. B. Stomach, biopsy: - Oxyntic and antral mucosa with no diagnostic alteration. - No morphologic evidence of H. Pylori microorganisms. C. Stomach, polypectomy: - Hyperplastic polyp. Performed By: #### S ####[facility]IA [id number] [address] FINAL PERFORMING LAB [facility] Comment on above: Order Comment: Robb clement Type: TISSUE SPECIMENOrdering Facility: [facility] Address: [address] [place] [address] Result Comment: Diag nostic interpretation performed at [facility], [address] [place], [place] [address]IA# [id number] Behaviour Support Teacher: Constantin Quevedo M.D. Performed By: #### S ####[facility]IA [id number] [address] GROSS DESCRIPTION [facility] Comment on above: Order Comment: Robb clement Type: TISSUE SPECIMENOrdering Facility: [facility] Address: [address] [place] [address] Result Comment: A. D UODENUM BIOPSY Received [...] in one cassette. Gross examination performed at [facility], [facility] [place] [address] TTN 01/02/2022 12:06 AM Performed By: #### S ####[facility]IA [id number] [employer] [id number] [id number] [facility] Upper GI endoscopyon 01-01- 022 Upper GI endoscopy A31 Gastrointestinal Endoscopy Patient Name: Sai Guerrero Procedure Date: 01/01/2022 3:37 PM Date of : 1970 Admit Type: Outpatient Age: 51 Room: [address] Gender: Female Note Status: Finalized Attending [...] the patient. Procedure Code(s): --- Professional --- 95826, Esophagogastroduodenoscopy, flexible, transoral; with biopsy, single or multiple Diagnosis Code(s): --- Professional --- K44.9, Diaphragmatic hernia without obstruction or gangrene K31.89, Other diseases of stomach and duodenum K31.7, Polyp of stomach and duodenum D17.5, Benign lipomatous neoplasm of intra-abdominal organs R10.13, Epigastric pain R11.0, Nausea R63.4, Abnormal weight loss CPT copyright 2020 [employer]. All rights reserved. The codes documented in this report are preliminary and upon pre coder review may be revised to meet current compliance requirements. Attending Participation: I personally performed the entire procedure. Scope In: 4:09:57 PM Scope Out: 4:21:34 PM MD Tiffani Camargo MD 01/01/2022 4:34:18 PM This report has been signed electronically by Tiffani Morales MD Number of Addenda: 0 Note Initiated On: 01/01/2022 3:37 PM Normal [facility] 12-28-2021 CNPN Telephone (GAPRA3) SAI WELLS ([id number]) 1970 F Date Time Provider Department 12/28/21 JOSE ROBERTO VYAS GAP3 During your visit today, we recorded the following information about you: Jose Roberto Vyas RN 12/28/2021 9:55 AM Signed GI Pre-Procedure Spoke with patient: Yes Confirmed date scheduled and patient report time: Yes Procedure Planned:Esophagogastroduoden oscopy(EGD) with or without biopies based on clinical findings, removal of polyps or lesions Is the patient on blood thinners?no Procedure Instructions given to patient: Yes, and they verbalized their understanding of instructions given Patient instructed to take prescribed preparation prior to procedure:Yes, and they verbalized their understanding of instructions given Patient instructed to have family/friend present for procedure transport home:Patient/patient guest service representative was told that if they do [...] area. Any barriers to Patient learning: Patient/Patient Continuous Improvement Engineer responded appropriately on phone. Type of instruction [...] Status:Closed by JOSE ROB[facility]YAS [facility] [facility] FATUMA GUERREROSAI Oliveros ([id number]) 1970 F Date Time Provider Department 12/25/21 [...] 10/24/2012 Encounter Status:Closed by RIMA GERARD on 12/25/21 [facility] [facility] SAI WELLS ([id number]) 1970 F Date Time Provider Department 12/18/21 BHUPINDER CARREON GOLDTHWAITE3 During your visit today, we recorded the following information about you: Bhupinder Carreon MA 12/18/2021 10:51 AM Signed Attempted to reach the patient at the contact number that they provided [phone] (home) . Unable to speak with patient [...] Encounter Status:Closed by BHUPINDER CARREON on 12/18/21 [facility] 12-13-2021 [facility] Telephone (GASTMN) BJ WELLSNDA Domo ([id number]) 1970 F Date Time Provider Department 12/13/21 ANASTASIYA MOSQUEDA During your visit today, we recorded the following information about you: Elizabeth Ricci 12/13/2021 11:20 AM Signed Received a call from patient's health agency concerning virtual visit set up with you today at 11 - Patient has not registered for [employer] (having trouble accessing her email) AND they want to know if you will do a phone visit instead Was told this was an urgent request from the referring doctor's office - the visit was scheduled thru the Referring Physician office There are no records found for this patient AND I attempted to pull records thru Care Everywhere Patient's phone [phone] Elizabeth Ricci 12/13/2021 12:33 PM Signed Spoke to patient's daughter - she will contact the [employer] support line to assist with setting up patient's Mychart AND assist with set up for virtual visit tomorrow morning Elizabeth Ricci 12/14/2021 12:34 PM Signed Patient phoned again unable to connect with you via [facility] Okay to schedule phone visit tomorrow? [phone] Elizabeth Ricci 12/14/2021 1:32 PM Signed Patient scheduled for phone visit Dec 15 at 11 am - patient instructed not to screen her calls at the time of the visit AND to answer her phone Elizabeth Ricci 12/15/2021 11:46 AM Addendum Patient called the office stating you did not phone her for her 11 am appt today- she confirmed the phone number on file agent spa desk checked the patient in as arrived you should be able to call her back without rescheduling the time [phone] Elizabeth Ricci Allergies As of Date: 12/13/2021 (No Known [...] Status:Closed by ELIZABETH RODRIGUEZ on 12/13/21 [facility] BNPon 12-11-2021 Natriuretic peptide B (Bld) [Mass/Vol] 134.0 pg/mL Normal <=900.0 [facility] Comment on above: Performed By: #### M MA2 #### [facility] [address] [place] [address] Dr. Prince Olivas CBC AUTO DIFFon 12-11-2021 BASO # 0.0 103/ul Normal 0.0-0.1 [facility] Comment on above: Performed By: #### L IPID, CMP #### [facility] [address] [place] [address] Dr. Prince Olivas Basophils/100 WBC (Bld) 0.4 % Normal 0.2-2.0 [facility] Comment on above: Performed By: #### L IPID, CMP #### [facility] [address] [place] [address] Dr. Prince Olivas EO # 0.0 103/ul Normal 0.0-0.7 [facility] Comment on above: Performed By: #### L IPID, CMP #### [facility] [address] [place] [address] Dr. Prince Olivas Eosinophils/100 WBC (Bld) 0.3 % Critically low 0.9-7.0 [facility] Comment on above: Performed By: #### L IPID, CMP #### [facility] [address] [place] [address] Dr. Prince Olivas Erythrocyte distribution width (RBC) [Ratio] 13.1 % Normal 11.0-15.0 [facility] Comment on above: Performed By: #### L IPID, CMP #### [facility] [address] [place] [address] Dr. Prince Olivas Hematocrit (Bld) [Volume fraction] 45.9 % Normal 36.0-48.0 [facility] Comment on above: Performed By: #### L IPID, CMP #### [facility] [address] [place] [address] Dr. Prince Olivas Hemoglobin (Bld) [Mass/Vol] 15.3 g/dL Normal 12.0-16.0 [facility] Comment on above: Performed By: #### L IPID, CMP #### [facility] [address] [place] [address] Dr. Prince Olivas IG # 0.04 10e3/ul Critically high 0.00-0.03 [facility] Comment on above: Performed By: #### L IPID, CMP #### [facility] [address] [place] [address] Dr. Pricne Olivas IG % 0.4 % Normal 0.0-0.5 [facility] Comment on above: Performed By: #### L IPID, CMP #### [facility] [address] [place] [address] Dr. Prince Olivas LYMPH # 1.9 103/ul Normal 1.2-3.8 [facility] Comment on above: Performed By: #### L IPID, CMP #### [facility] [address] [place] [address] Dr. Prince Olivas Lymphocytes/100 WBC (Bld) 17.0 % Critically low 20.5-60.0 [facility] Comment on above: Performed By: #### L IPID, CMP #### [facility] [address] [place] [address] Dr. Prince Olivas MANUAL DIFF REQ NO Normal [facility] Comment on above: Performed By: #### L IPID, CMP #### [facility] [address] [place] [address] Dr. Prince Olivas MCH (RBC) [Entitic mass] 31.4 pg Normal 26.7-34.0 [facility] Comment on above: Performed By: #### L IPID, CMP #### [facility] [address] [place] [address] Dr. Prince Olivas MCHC (RBC) [Mass/Vol] 33.3 g/dL Normal 29.9-35.2 [facility] Comment on above: Performed By: #### L IPID, CMP #### [facility] [address] [place] [address] Dr. Prince Olivas MCV (RBC) [Entitic vol] 94.3 fL Normal 81.0-99.0 [facility] Comment on above: Performed By: #### L IPID, CMP #### [facility] [address] [place] [address] Dr. Prince Olivas MONO # 0.6 103/ul Normal 0.3-0.8 [facility] Comment on above: Performed By: #### L IPID, CMP #### [facility] [address] [place] [address] Dr. Prince Olivas Monocytes/100 WBC (Bld) 5.6 % Normal 1.7-12.0 [facility] Comment on above: Performed By: #### L IPID, CMP #### [facility] [address] [place] [address] Dr. Prince Olivas NEUT # 8.3 103/ul Critically high 1.4-6.5 [facility] Comment on above: Performed By: #### L IPID, CMP #### [facility] [address] [place] [address] Dr. Prince Olivas Neutrophils/100 WBC (Bld) 76.3 % Critically high 43.0-75.0 [facility] Comment on above: Performed By: #### L IPID, CMP #### [facility] [address] [place] [address] Dr. Prince Olivas Platelet mean volume (Bld) [Entitic vol] 12.1 fL Normal 9.5-13.5 [facility] Comment on above: Performed By: #### L IPID, CMP #### [facility] [address] [place] [address] Dr. Prince Olivas PLT 204 103/ul Normal 150-450 [facility] Comment on above: Performed By: #### L IPID, CMP #### [facility] [address] [place] [address] Dr. Prince Olivas RBC 4.87 106/ul Normal 4.20-5.40 [facility] Comment on above: Performed By: #### L IPID, CMP #### [facility] [address] [place] [address] Dr. Prince Olivas WBC 10.9 103/ul Normal 4.0-11.0 [facility] Comment on above: Performed By: #### L IPID, CMP #### [facility] [address] [place] [address] Dr. Prince Olivas LACTATE/LACTIC ACIDon 2021 Lactate [Moles/Vol] 1.9 mmol/L Normal 0.4-1.9 [facility] Comment on above: Performed By: #### S ELNIUM #### [facility] [address] [place] [address] Dr. Prince Olivas LIPASEon 12-11-2021 Lipase [Catalytic activity/Vol] 49.0 U/L Critically low 73.0-393.0 [facility] Comment on above: Performed By: #### M MA2 #### [facility] [address] [place] [address] Dr. Prince Olivas PROF 14(COMP METB)on 022 Albumin [Mass/Vol] 4.5 g/dL Normal 3.4-5.0 [facility] Comment on above: Performed By: #### M MA2 #### [facility] [address] [place] [address] Dr. Prince Olivas Albumin/Globulin [Mass ratio] 1.7 {ratio} Normal [facility] Comment on above: Performed By: #### M MA2 #### [facility] [address] [place] [address] Dr. Prince Olivas ALP [Catalytic activity/Vol] 83 U/L Normal 46-116 [facility] Comment on above: Performed By: #### M MA2 #### [facility] [address] [place] [address] Dr. Prince Olivas ALT [Catalytic activity/Vol] 19 U/L Normal 14-59 [facility] Comment on above: Performed By: #### M MA2 #### [facility] [address] [place] [address] Dr. Prince Olivas Anion gap [Moles/Vol] 15.8 mmol/L Normal [facility] Comment on above: Performed By: #### M MA2 #### [facility] [address] [address] [address] Prince Olivas AST [Catalytic activity/Vol] 15 U/L Normal 15-37 [facility] Comment on above: Performed By: #### M MA2 #### [facility] [address] [address] [address] Prince Olivas Bilirubin [Mass/Vol] 0.6 mg/dL Normal 0.2-1.0 [facility] Comment on above: Performed By: #### M MA2 #### [facility] [address] [address] [address] Prince Olivas Calcium [Mass/Vol] 9.3 mg/dL Normal 8.5-10.1 [facility] Comment on above: Performed By: #### M MA2 #### [facility] [address] [place] [address] Dr. Prince Olivas Chloride [Moles/Vol] 103 mmol/L Normal 98-107 [facility] Comment on above: Performed By: #### M MA2 #### [facility] [address] [address] [address] Prince Olivas CO2 [Moles/Vol] 25.9 mmol/L Normal 21.0-32.0 [facility] Comment on above: Performed By: #### M MA2 #### [facility] [address] [address] [address] Prince Olivas Creatinine [Mass/Vol] 0.97 mg/dL Normal 0.55-1.02 [facility] Comment on above: Performed By: #### M MA2 #### [facility] [address] [address] [address] Prince Olivas EGFR-AF MOSOTHO >60 Normal >=60 [facility] Comment on above: Performed By: #### M MA2 #### [facility] [address] [address] [address] Prince Olivas EGFR-NON AF MOSOTHO >60 Normal >=60 [facility] Comment on above: Performed By: #### M MA2 #### [facility] [address] [address] [address] Prince Olivas Globulin (S) [Mass/Vol] 2.7 g/dL Normal [facility] Comment on above: Performed By: #### M MA2 #### [facility] [address] [address] [address] Prince Olivas Glucose [Mass/Vol] 107 mg/dL Critically high 74-106 [facility] Comment on above: Performed By: #### M MA2 #### [facility] [address] [address] [address] Prince Olivas Potassium [Moles/Vol] 3.7 mmol/L Normal 3.5-5.1 [facility] Comment on above: Performed By: #### M MA2 #### [facility] [address] [address] [address] Prince Olivas Protein [Mass/Vol] 7.2 g/dL Normal 6.4-8.2 [facility] Comment on above: Performed By: #### M MA2 #### [facility] [address] [address] [address] Prince Olivas Sodium [Moles/Vol] 141 mmol/L Normal 136-145 [facility] Comment on above: Performed By: #### M MA2 #### [facility] [address] [address] [address] Prince Olivas Urea nitrogen [Mass/Vol] 11.0 mg/dL Normal 7.0-18.0 [facility] Comment on above: Performed By: #### M MA2 #### [facility] [address] [address] [address] Prince Olivas Urea nitrogen/Creatinine [Mass ratio] 11.3 mg/mg Normal [facility] Comment on above: Performed By: #### M MA2 #### [facility] [address] [address] [address] Prince Olivas TROPONIN, HIGH SENSITIVITYon 12-11-2021 HSTROP 5.5 pg/mL Normal 4.0-51.3 [facility] Comment on above: Result Comment: CUT- OFF POINTS HAVE BEEN ESTABLISHED BASED ON THE FOURTH UNIVERSAL DEFINITIONS OF MYOCARDIAL INFARCTION. THE UPPER REFERENCE LIMIT (URL) OF TROPONIN, DEFINED THE 99TH PERCENTILE OF cTnI DISTRIBUTION IN A REFERENCE POPULATION, HAS BEEN CONFIRMED THE DECISION THRESHOLD FOR LA DIAGNOSIS. Performed By: #### M MA2 #### [facility] [id number] Prince Olivas XR CHEST 1 Von [...] No acute cardiopulmonary process. Electronically authenticated by: BIRTNI HARRISON Date: 2021-12-11 15:20 Normal [facility] Coding Summary.on 12-06-2021 Coding Summary. CD:[id number] Gh0bWw+P GhlYWQ+NP5SHTFlG32guGEbwC8ZG 0lWCH6KCZVDHHDPMR1BXK4pqCG8R IxoR5RlmvHs AjsfvVMzSB70FOk7MIQ9vLrpVNjz dG6heSWnS8q1AfMrRW00iK76DVwz ODXvWeL4AaMulcpasFXp M0exLhGnfBHaUmm+PHRhYmxlIHdp WYMzGNexNEMvLhKunFofFP7mXy4h ZGVyLWNvbGxhcHNlOiBj e5riZYTlYKbsGE6iiWbhN9BsmGK5 HEGjk1s7Wh50dCP+IBNzSNR5iIcs TDfgu975HsIhd6pcWCS8 sAKwBCjiPYE4D45lg1J4POQuVZZj KVA4jTI9rJ4ucUyhdvpkC8QxlXQq AuL6ITC0dLFwrM5byPxb wukqtL5pLlz+N98POP1MOXNPXG0Y Zpc8Y3MgEjyehTJ+NR78LVHtFO52 wNGpjHJqy4gkwRy5KhCc PBGqUVB7mEngRImoe9KwKBRwT02d hZUgk2K8WQOlvKsrcQOdKhZlzNZ8 oS4kAHgcmcpri0kapjzb Xuozq6dzrx92tD52A46bZUkzGAGg FZG5SEPlEGErtAnywc9foO8gAx8+ TXaql7slg8gvoUg4QjXa NAQhncRlcMwjJXZ2w6AcRd16Y5Ip jNlff7QzMly0er88fXIsf8V6vFZ3 YBtdZMAdpJ7vHTfsQvJ9 HKCmYbGbmG79xYDkRRtqBc3fwDii hLucBN1yDPUfanxnXAPswF2iELFh hWGwrOgsGS9hJGCpnvfz z656ApSjTHI7TVGpvRUuZ5WtkW7v SxVfEMAqAXVlL5EmdCQfKPinK137 YZraAzN2POKyfoSyE4Fp NRWtbLgjLwR5n6W0Ch4Hi0Lxzrup XUE6KFvkTHE5KpDzBkSsFdH6N2Gk Acw7VVRrrBnrXB8mY4Ks OUMachdulolyjKA2KLAaLEHhvK10 pGGyUZyqAc3xk7S6y600BGBiAGCm tH86Je2cgLrvJXZjqONG nI0wtkdfm7fmcopkFzZpQXCbZVb0 KUj3WLFqlMlsUfGjFAH2UjD5TCM6 bBOftQ0npCrehpdwsY3u Oyc+V03jnX6pYXW3KEU3polnQEYm ttReJT33KP65V6LmVtnfnRVqnEP+ ZUKvtfYwwSobTX0kZuZa j6iqa8SdQFbzJ6QvETLkIRjvNbb6 XULcEWO2vXQ0oF8xMMGmUJaze9P9 kNF4B5YnveBohi3em8ms WMHyCUzeY84mnUDkg1A1NYCkbVQ6 UDXmhLhcYoJgoF91Vhb+PGNvbGdy k2PoModbr9pca3aweUd5 KlZuLTJfyrKvvPqzUYJ8u8XkKo04 W60zXSngGDJbPKYcTGXjBJHajXpx hv4znX0kFg1+PGNvbCB3 zTO6aF1lPBMpZuY2RNgzG428PeZd aCXkEvrrw0ext7zqrSn4DyIlWKLg uiAtvZpoVST2q7UtYp27 O73bDYywXSCaPSKpDMVcOVVikTbm od7yaX9kKs0+WU5qq7nbzg72iY81 dHI+FRWaZBJ9hGdxMEoh OHUngT9lNAypHsA0SFZiDkYtgM73 zRHtMDxcOr9zeQionCyyYI9yYIZo idnyo825OzMup0joAHDd xZAiGMurAPP4Y83uu7E2TAVwRYRg APJ4jNY5pE3zwJcbwesocWCjzJcp jbCzhOgeNGhuMRuxU414 IHRvcDsnPlBhdGllbnQgTmFtZTo8 D3MkVar4TWJiyDfsJB4ytUDwZPdj Sy4qeFxlvEoyFU5gDKUv nwypc406CnXbd2nfFIBsqQYsVSse SFI6V54qb1I4SFEiMYFrAQR5aJU3 xD3ngJondaglmNIikMyv bgUezNiwNPtdJRwrH351LRPoaJyv KfZadwYqECOcgDR0VJ42DH62zOMf e7D3vFL7A9DmFWBuwdzi vghotBE2TNHsRKZmpV93Re8euXow Kp6qXZYiLYB5WGJbhVBdZ2RziP4v PtXtBJSbRKRqD1RiwJPz YWkgE000FBxqJhI3PRLkrsIzM7Oq SKAstXwaAuK8h9P7Kd1XH9M6NV73 QK80uVBvr0I8nZP1T6Qw XTGxnuzwhywzoZK9HXLaHRJbxE70 Di9hkIsxOp6eVIZrNGA6TXKidIMi J7CkbC6kXhHyCUHcKWBq F2XvgDGvZZiyN535PTxsYjA1PCUh cyDyP2WhMZFioSchCwB9i8O6Ef4U RFv6TQ69BF32gLUvs2D6 vGU0X1SdKASbsklmytgyiEG0BBWl RXWofQ60Dl5hiXrkZf1cLEKaYGZ5 QQPqhJYvH9OdvL6dBaYq AJYcZIYhB4SxaGFwMBoyS550UNva ZyF5FTQdjjAzC3VwJSRhpXnqSvO8 r8U1Ag2WICIqDB87IIF6 kJD6NM42EO20M0MeVifcrTSgpTM+ PHRhYmxlIHdpZHRoPScxMDAlJyBz qBmpEJ2mWs3jDYJbCODj nWlerOXzAdUil9vsYAQcEOykKP8z wKhiA0BofHX0RSIkg6i2Yt84X55i S7GgpDF+XFKneDP4gUF9 qM1bKrNeIiJ4RUxcP946LjApzZRy Cetjb8ygn6esdCz1PpN7NCDbexNr iNvyIZF4g6JlLx60H81u HNwuFMCbZKUpCYLjRLEjuNqbql1r iT3yTd7+WDCfnMM4wFH8vK4qTyQl QgU1FZxoD734BfQwaQHi Umqev0fno6igxVj9CnGvFUZwtfRl hApeGQQ5i0HlYt40H6BzxVsqq1Ut Kqt6ec73aBKsf2H4cGX6 W3ZhGGIxmfvghEJzoAlrAA1vYQUh qflcIFWsrW5zIVJnI3o4IcZqDfW4 GIgqZ0CnljJ8PFNynRCs QZzuDGT9Z84ul1Z6HYSrFUCzLXB3 rZN5vP1spHyjgadwtOSntQlcfvDy zNbwQBdbIAxqV721QYYe zHtcQRMpwL8dMPHgnKOdfRfgQB8g NTBpbjsnPldFQVZFUiwgUkhPTkRB FVC9Q3KyMyj2BZThhEqy FX5fjAIjFWuiAn4hxOjtkNvhYF5r RNTendjxHGUpnV4yGHRkuVIohInr FH8fEQLkmrnka084EyUd QRY7NPKuaTGaV4UuwJ1fQuQzWTEr RAQgO3AlqTTtABtrS993LCobUoM3 CBTpzzUnK5FyDNMyfQqk IkS6x0N5Cu6nXe4lAm4rALanEE11 TM04xNVfr1U6xVA7T5WqRRIhxemr iqqnrTF5AWUoPSOahM75 mUNaTPzqLn2hu2T7e649QLVbDIQw dD97Av2fsEpsAHEjaKHBsN1boxoh h5fcwrsqJmInDLSuMWm5 GXh0XRBxoOgwQdIvZSN9MgC6KJK9 kTRwqT8poFiukslrmA2mKpz+NTEg MOAobbL8X0AtQdb2NJOm wDkqZJ1zyQGnHHroUi8jjMlrxYge EM9fACJuxuvsWQRctK3rYXSxnZCq xTnfOQ9sGMIcxknur931 ZcEcYEP0ZSJovDRmC7QmsC3sYxUu FHXeJEQuP3FgyWDeINwxA041EJse BpG0ZTIthiCjM8HjRJTp sZzaYeA9r0I6Jx1JZC7ujXQ2R7Xo Zql8GXVgmDqoXX0tzGMqBRjbPv7y dIuhyFjjCJ5iXVVtgxpq PTRksC5vMFMzjSSgmBsjAA2hOVSx lezrp275NjZjEQE0MEPpeEOcB4Zc iY0dIwRyDEGbKCXgY0Rr bIDkCIulN054NQmkFvT5YMNdxsQu B4MvVFDfnOhjRaI8m5F5Bz4JzWQa Y7EqJ6a9I3MkHdzspWD+ UH76XWHmNI14mYVylHEmq9pugHr0 MsSaINVzSIW7dIigDZzhz3MsJWHl Y42keSPft1B7CSXgmMng vFHjHpExwIU2uT2gELjgwxhmi8kb zcvdMmfmc6ydtb22xT57M69zKKjb ZHRoPSIzMCUiIHZhbGln tv3tiI8yFr6+PBRqkLZ1wUN4oH5i ByFgPzP4RMjqY981ZhNqpGKnUgaa n5ssf9auqPm3KmSwZQOj knOqhUnkIWZ7w6SfPn11L26xAIsf PGJzVUIjRNFyORYqeSjtfc8bmA9k Ii8+SR5be1fklj55hE25 dHI+KJOqDSA6oIvaPJxgGTYyoW7d BWkhCgR0FNNvKjMksU26eZEhRUoa We9kyVjagAnvIV2cEHXt xaisw820ZoGzr6pxSTRlpYOlXCsc ZKV1L00mz0K9MSAmDWMoVOZ3cXA3 iK1avVualhrlhSBlcObd ujYrePkaYRgdVGzcO269LBYsfEvc RuDtzESnX3yqwhMTPR9zSwnqgBF+ NUBmWNI8lPpeKVtpFPMu cG5hJXXlE5g4BhQnBxT0RBblZ1Fr kwE9LZCmuTNgBWRgrYQEkV0lurka u1njmnzcDoVkIXImYHw9 GGn9KNQcyRnfZeNtNBI5JvP2VLR3 yFVsgG6jnKuhohekbK5uTfa+RklO OjwvdGQ+AYCjPSR1iMvz MCbaOKCmnG3oNYZrT9g5UjUlOhN8 PPjmL7DbjlX9DQEpbIUeXKVgnIIO cV6vedrsz5wyaikaLfAu CLYeDPj0JFn9IDPpxMngNuAsCPP0 LbD4GUV7fMUxtG3tnPabpnwrcC5u Oyc+TVJOOjwvdGQ+PHRk AJC0bOyqWDzpOSFnuZ3uIZHrX0a9 AiGkYhP2XOjrR2HzxwV7HIHcaIVb PPLziYVYfI0tgabzo9im wjzhVjDdRLJfNNa3ENp2SVRvgTlp GxZdWFW2CxV4UGW9nWOjcC6jaEjw boqdtE6qLyi+YKG8SCB0 GI16AG99P8DiEcnnfJSzmUQ+PHRh YmxlIHdpZHRoPScxMDAlJyBzdHls LZ6kYz6fBUOeDADcrObz cHNl (more content not included)... Normal [facility] Amylaseon 12-03-2021 Amylase [Catalytic activity/Vol] 32 U/L Normal 25-157 [facility] Comment on above: Performed By: #### 1 1200555, 3161693, 6311437, 9753462, 0880400, 5424943, 2246674 #### [facility] [address] [place] [address] Auto Diffon 12-03-2021 Basophils/100 WBC (Bld) 0.6 % Normal 0.0-2.0 [facility] Comment on above: Order Comment: Order Added by Discern Expert. Performed By: #### 1 6468015, 4434000, 0251904, 4491177, 2395861, 5441595, 0433279 #### [facility] [address] [place] [address] 91622 Basophils/Leukocyte s Auto (Bld) [Pure # fraction] 0.1 E9/L Normal 0.0-0.2 [facility] Comment on above: Order Comment: Order Added by Discern Expert. Performed By: #### 1 9277682, 9690716, 5026914, 2436167, 6881520, 5853954, 7027943 #### [facility] [address] [place] [address]22 Eosinophils/100 WBC (Bld) 0.1 % Normal 0.0-8.0 [facility] Comment on above: Order Comment: Order Added by Discern Expert. Performed By: #### 1 6615965, 2654684, 9547619, 4743161, 8317946, 5854575, 8564518 #### [facility] [address] [place] [address] 46818 Eosinophils/Leukocy lefty Auto (Bld) [Pure # fraction] 0.0 E9/L Normal 0.0-0.5 [facility] Comment on above: Order Comment: Order Added by Discern Expert. Performed By: #### 1 0629059, 1636474, 2115424, 5694175, 5647231, 4555782, 8199343 #### [facility] [address] [place] [address] 82372 Lymphocytes/100 WBC (Bld) 16.1 % Normal 14.0-50.0 [facility] Comment on above: Order Comment: Order Added by Discern Expert. Performed By: #### 1 8033439, 6697096, 1951419, 1413014, 2227014, 8183218, 7305969 #### [facility] [address] [place] [address]1970 Lymphocytes/Leukocy lefty Auto (Bld) [Pure # fraction] 1.5 E9/L Normal 1.0-4.0 [facility] Comment on above: Order Comment: Order Added by Discern Expert. Performed By: #### 1 1006668, 0543329, 6368993, 6589831, 7610502, 3751580, 0733235 #### [facility] [address] [place] [address] 14965 Monocytes/100 WBC (Bld) 4.6 % Normal 4.0-14.0 [facility] Comment on above: Order Comment: Order Added by Discern Expert. Performed By: #### 1 0445777, 3893359, 8297313, 5299884, 2630284, 9923593, 8662189 #### [facility] [address] [place] [address] 76799 Monocytes/Leukocyte s Auto (Bld) [Pure # fraction] 0.4 E9/L Normal 0.2-1.0 [facility] Comment on above: Order Comment: Order Added by Discern Expert. Performed By: #### 1 2944565, 0451861, 7230228, 0866294, 8479864, 0344602, 2925658 #### [facility] [address] [place] [address] 77077 Neutrophils/100 WBC (Bld) 78.6 % High 36.0-75.0 [facility] Comment on above: Order Comment: Order Added by Discern Expert. Performed By: #### 1 0678515, 8107135, 1387376, 7770908, 9648659, 5074089, 1305664 #### [facility] [address] [place] [address] 29224 Neutrophils/Leukocy lefty Auto (Bld) [Pure # fraction] 7.6 E9/L High 2.0-7.5 [facility] Comment on above: Order Comment: Order Added by Discern Expert. Performed By: #### 1 8080215, 7983163, 6330320, 0896842, 9154952, 0250445, 4874904 #### [facility] [address] [place] [address] 40054 BMPon 12-03-2021 Creatinine [Mass/Vol] 1.1 mg/dL Normal 0.5-1.3 [facility] Comment on above: Performed By: #### 1 0445836, 4494799, 1636383, 9660096, 9303480, 9165059, 7591893 #### [facility] [address] [place] [address] Urea nitrogen [Mass/Vol] 21 mg/dL Normal 5-21 [facility] Comment on above: Performed By: #### 1 0393550, 8532982, 8318691, 5213520, 4813130, 4575790, 6454480 #### [facility] [address] [place] [address] Urea nitrogen/Creatinine [Mass ratio] 19 No Units Normal 10-20 [facility] Comment on above: Performed By: #### 1 9148587, 5983926, 5949463, 4082538, 2403158, 8350634, 7853239 #### [facility] [address] [place] [address] Anion gap [Moles/Vol] 22 mmol/L High 6-16 [facility] Comment on above: Performed By: #### 1 9985096, 7900216, 4581992, 4397394, 8371653, 2108632, 1420363 #### [facility] [address] [place] [address] Calcium [Mass/Vol] 9.8 mg/dL Normal 8.9-11.1 [facility] Comment on above: Performed By: #### 1 5112279, 1931914, 2074230, 7901849, 4538925, 9950734, 0545908 #### [facility] [address] [place] [address] Chloride [Moles/Vol] 96 mmol/L Low 101-111 [facility] Comment on above: Performed By: #### 1 4899582, 3562032, 3964473, 2947605, 9527083, 3938152, 1715404 #### [facility] [address] [place] [address] CO2 [Moles/Vol] 19 mmol/L Low 21-31 [facility] Comment on above: Performed By: #### 1 4024786, 1762940, 9554698, 3319743, 1386929, 1146658, 1036419 #### [facility] [address] [place] [address] Glucose [Mass/Vol] 64 mg/dL Normal 55-199 [facility] Comment on above: Result Comment: If t his glucose result represents a fasting glucose, interpretation should refer to the following reference range: 55-99 mg/dL Performed By: #### 1 6444603, 0700849, 5516710, 7030946, 1439964, 3927502, 7997857 #### [facility] [address] [place] [address] Potassium [Moles/Vol] 4.3 mmol/L Normal 3.5-5.3 [facility] Comment on above: Performed By: #### 1 8614950, 1442443, 9795356, 2800376, 3026740, 2785143, 7999412 #### [facility] [address] [place] [address] Sodium [Moles/Vol] 133 mmol/L Low 135-145 [facility] Comment on above: Performed By: #### 1 8459106, 4325245, 2371783, 4405915, 6983587, 0602139, 0669886 #### [facility] [address] [place] [address] CBC w/ Auto Diffon Erythrocyte distribution width (RBC) [Ratio] 13.5 % Normal 10.9-14.2 [facility] Comment on above: Performed By: #### 1 9424802, 6332914, 8080354, 8674343, 3833875, 2442049, 6213901 #### [facility] [address] [place] [address] Hematocrit (Bld) [Volume fraction] 51.0 % High 34.0-46.0 [facility] Comment on above: Performed By: #### 1 3530181, 7931985, 0205127, 5023358, 7723853, 8693564, 3621689 #### [facility] [address] [place] [address] Hemoglobin (Bld) [Mass/Vol] 16.8 g/dL High 12.0-16.0 [facility] Comment on above: Performed By: #### 1 4390641, 5061797, 6386949, 3727159, 0083712, 7516398, 1136736 #### [facility] [address] [place] [address] 78353 MCH (RBC) [Entitic mass] 30.9 pg Normal 27.0-34.0 [facility] Comment on above: Performed By: #### 1 2324583, 7287521, 2471913, 4429967, 9972017, 3598485, 0572276 #### [facility] [address] [place] [address] 19993 MCHC (RBC) [Mass/Vol] 32.9 g/dL Normal 31.4-36.0 [facility] Comment on above: Performed By: #### 1 1863750, 6470625, 8526252, 8133731, 7147868, 8373163, 8583678 #### [facility] [address] [place] [address] 09542 MCV (RBC) [Entitic vol] 94.0 fL Normal 80.0-100.0 [facility] Comment on above: Performed By: #### 1 7494350, 2224403, 1629148, 0274032, 7640494, 8122108, 0511765 #### [facility] [address] [place] [address] 43665 Platelet mean volume (Bld) [Entitic vol] 9.8 fL Normal 6.4-10.8 [facility] Comment on above: Performed By: #### 1 4671026, 2178470, 5669561, 9140639, 9246470, 4800374, 3072135 #### [facility] [address] [place] [address] 01525 Platelets (Bld) [#/Vol] 212.0 E9/L Normal 150.0-500.0 [facility] Comment on above: Performed By: #### 1 4222448, 3854215, 9776206, 8515065, 4594478, 5426314, 9369327 #### [facility] [address] [place] [address] RBC (Bld) [#/Vol] 5.4 E12/L Normal 4.3-5.9 [facility] Comment on above: Performed By: #### 1 8128331, 6092020, 1375376, 1288030, 8490616, 6754104, 5758450 #### [facility] [address] [place] [address] WBC corrected for nucl RBC Auto (Bld) [#/Vol] 9.6 E9/L Normal 4.0-11.0 [facility] Comment on above: Performed By: #### 1 4081914, 4206246, 0200785, 7575900, 7446178, 2582104, 7942623 #### [facility] [address] [place] [address] Consent for Treatmenton 11-16 Consent for Treatment [id number]:127 Normal [facility] Discharge Instructionson Discharge Instructions [id number]:127 Normal [facility] ED Clinical Summaryon 2021 ED Clinical Summary (Inserted Image. Antoinette ble to display) [address] [address] ED Clinical Summary Person Information Name: SAI PINEDA [facility] Age: 51 Years : 1970 Sex: Female Language: Ukrainian PCP: CRISTINA IQBAL CNP Marital Status: Visit Id: Visit Reason: Nausea; Abdominal pain; RPUQG-FYRHN-VPCM BREATHING Speciality: Acuity: 3 Enc Type: Emergency [...] 12/03/2021 13:54:54 12/03/2021 13:54:54 12/03/2021 13:54:54 ADDRESS: [address] [place] [id number] PHYS DOC NOTES: MEDICAL INFORMATION: Prescriptions Given: New Medications [facility]/pharmacy #[id number], [address], [place] [id number], [phone] promethazine (Phenergan 25 mg Supp) 1 Suppositories By rectum every 6 hours as needed as needed for nausea. Insert one per rectum every six hours as needed for nausea and vomiting. Refills: 0. promethazine (promethazine 25 mg Tab) 1 Tablets By Mouth every 4 hours. Refills: 0. Medications to Continue Taking That Have Changed [facility]/pharmacy #[id number], [address], [place] [id number], [phone] START: pantoprazole (Protonix 40 mg Tab-DR) 1 [...] day. PATIENT EDUCATION INFORMATION: Instructions: Gastritis, Adult, Dbsi-el-Hbxz; Abdominal Pain, Adult Follow up: With: Address: When: CRISTINA IQBAL [address], [place], [place] [phone] Business (1) In 3 days 12/06/2021 DIAGNOSIS: 1:Upper abdominal pain; 2:Gastritis; 3:Anxiety Normal [facility] ED Note-Physicianon 12-04-19 ED Note-Physician Basic Information [...] Daily, # 30 tab(s), Refills(s) 0, Pharmacy: [facility]/pharmacy #[id number], 172.9, cm, 12/03/21 10:15:00 EDT, Height/Length Dosing, 46.2, kg, 12/03/21 10:15:00 EDT, Weight Dosing promethazine, 25 mg = 1 tab(s), Oral, q4hr, # 12 tab(s), Refills(s) 0, Pharmacy: [facility]/pharmacy #[id number], 172.9, cm, 12/03/21 10:15:00 EDT, Height/Length Dosing, 46.2, kg, 12/03/21 10:15:00 EDT, Weight Dosing promethazine, 25 mg = 1 supp, Rectal, q6hr, PRN as needed for nausea, Insert one per rectum every six hours as needed for nausea and vomiting, # 6 EA, Refills(s) 0, Pharmacy: [facility]/pharmacy #[id number], 172.9, cm, 12/03/21 10:15:00 EDT, Height/Length [...] mg/mL IV Misty, 20 mg, IV Push [id number] [F], 1000 mL, IV promethazine 25 mg/mL [...] PRN Follow-up With When Contact Information CRISTINA ROGER In 3 days 12/06/[address] EDT [address] [place] [address] [phone] Business (1) Additional Instructions: Patient Ed (more content not included)... Normal [facility] Comment on above: Result Comment: Elec tronically Signed By: Chitra SANDOVAL, Vipin\.br\Date and Time Signed: 12/03/21 13:50 EDT ED [...] these instructions at home: Medicines ? Take vmsk-rnr-riaojnq and prescription medicines only as told by [...] 08/20/2008 Document Revised: 07/22/2018 Document Reviewed: 07/22/2018 [facility] Patient Education ? 2020 Aras. Abdominal Pain, Adult Pain in the abdomen [...] these instructions at home: Medicines ? Take ggkh-rku-orxayia and prescription medicines only as told by [...] are cons (more content not included)... Normal [facility] ED Patient Summaryon 022 ED Patient Summary (Inserted Image. Antoinette ble to display) [address] [address] Patient Discharge Instructions Person Information Name: SAI PINEDA Age: 51 Years Arrival Date: 12/03/2021 09:55:45 Discharge Diagnosis: 1:Upper abdominal pain; 2:Gastritis; 3:Anxiety Primary Care Physician: CRISTINA IQBAL CNP Provider Information Primary Provider: Vipin Pina MD Advanced Lead Python Developer:None The exam and treatment you received in the Emergency Department were for an urgent problem and are not intended as complete care. It is important that you follow up with a doctor, nurse practitioner, or physician?s mechanic's assistant for ongoing care. If your symptoms become worse or you do not improve as expected and you are unable to reach your usual health care provider, you should return to the Emergency Department. We are available 24 hours a day. SAI PINEDA Domo has been given the following list of patient education materials, prescriptions and follow-up instructions: Follow-up Instructions: With: Address: When: CRISTINA IQBAL [address] [place], [place] [phone] Business (1) In 3 days 12/06/2021 In the event that this physician does not participate in your insurance network, please consult with your insurance company to find a nearby participating provider. Patient Education Materials: Gastritis, Adult, Lbea-rm-Pkqh; Abdominal Pain, Adult A MESSAGE TO ALL PATIENTS REGARDING OPIOIDS PRESCRIPTION OPIOIDS: WHAT YOU NEED TO KNOW Prescription opioids can be used to help relieve lptjrlcr-za-gkhizl pain and are often prescribed following a [...] guidance from the Food and Drug Administration (www.fda.gov/Drugs/Resources ForYou). ? Visit www.cdc.gov/drugoverdose to learn about the risks of opioids abuse and overdose. ? If you believe you may be struggling with addiction, tell your health health care law specialist and ask for guidance or call [facility]? (more content not included)... Normal [facility] Hep Func Panelon 12-03-2021 Albumin [Mass/Vol] 5.3 g/dL High 3.3-5.0 [facility] Comment on above: Performed By: #### 1 4189401, 5459232, 7835663, 9566196, 7287918, 4999834, 6042104 #### [facility] [address] [place] [address]165 Albumin/Globulin (S) [Mass conc ratio] 1.8 Normal 1.1-2.2 [facility] Comment on above: Performed By: #### 1 7509761, 1240180, 5852315, 2100189, 1736793, 8179171, 9125337 #### [facility] [address] [place] [address] 26725 ALP [Catalytic activity/Vol] 79 Int._Unit/L Normal 21-98 [facility] Comment on above: Performed By: #### 1 8007089, 8701118, 6952189, 4222150, 3689077, 0910866, 2781300 #### [facility] [address] [place] [address]36 ALT No additional P-5'-P [Catalytic activity/Vol] 14 Int._Unit/L Normal 6-46 [facility] Comment on above: Performed By: #### 1 6176049, 4603089, 3264372, 9998610, 6792168, 8340751, 9638751 #### [facility] [address] [place] [address] 58840 AST [Catalytic activity/Vol] 21 Int._Unit/L Normal 5-43 [facility] Comment on above: Performed By: #### 1 6611413, 2652943, 1023865, 5713363, 3403788, 6934559, 1154007 #### [facility] [address] [place] [address] 10614 Bilirubin [Mass/Vol] 1.2 mg/dL High 0.0-1.1 [facility] Comment on above: Performed By: #### 1 4136159, 8217344, 2500545, 2049986, 5663160, 6210008, 1078505 #### [facility] [address] [place] [address] Bilirubin.direct [Mass/Vol] 0.2 mg/dL Normal 0.1-0.4 [facility] Comment on above: Performed By: #### 1 1918964, 3804125, 7174016, 6006085, 3188441, 4492395, 7099935 #### [facility] [address] [place] [address] Bilirubin.indirect [Mass or moles/Vol] 1.0 mg/dL High 0.1-0.9 [facility] Comment on above: Performed By: #### 1 9393412, 0767315, 0837518, 4004319, 9691175, 4685493, 7463505 #### [facility] [address] [place] [address] Globulin (S) [Mass/Vol] 3.0 g/dL Normal 1.4-4.0 [facility] Comment on above: Performed By: #### 1 6490017, 0399718, 9462581, 4096307, 4358972, 1023164, 6975512 #### [facility] [address] [place] [address] Protein [Mass/Vol] 8.3 g/dL High 6.0-7.8 [facility] Comment on above: Performed By: #### 1 9563069, 1489524, 4711805, 6584773, 7467293, 1765781, 2508358 #### [facility] [address] [place] [address] Lipase Levelon 12-03-2021 Lipase [Catalytic activity/Vol] 21 U/L Normal 13-58 [facility] Comment on above: Performed By: #### 1 1323575, 5767104, 2169901, 1866641, 7087844, 3806866, 4474590 #### [facility] [address] [place] [address] eGFRon 12-03-2021 GFR/1.73 sq M.predicted among blacks MDRD (S/P/Bld) [Vol rate/Area] mL/min/{1.73_m2} Normal >=59 [facility] Comment on above: Order Comment: Order added by Discern Expert. Result Comment: eGFR is race adjusted. AA=. Performed By: #### 1 8360822, 6761323, 1004020, 8215320, 7924851, 6772845, 1961634 #### [facility] [address] [place] [address] GFR/1.73 sq M.predicted among non-blacks MDRD (S/P/Bld) [Vol rate/Area] 52 mL/min/1.73 m2 Low >=59 [facility] Comment on above: Order Comment: Order added by Discern Expert. Result Comment: Green [employer] Packer julian kidney disease could be indicated at eGFR's of less than 60 mL/min/1.73m2. Kidney failure is indicated at less than 15 mL/min/1.73m2. Performed By: #### 1 2375858, 6739862, 4680185, 0340075, 4254145, 5355966, 8934849 #### [facility] [address] [place] [address] CARDIAC SIMA ADMITon 022 CK [Catalytic activity/Vol] 72 U/L Normal 26-192 [facility] Comment on above: Performed By: #### S ADOREUM #### [facility] [address] [address] [address] Prince Olivas CK.MB [Mass/Vol] 1.28 ng/mL Normal <=3.60 [facility] Comment on above: Performed By: #### S ELVETOUM #### [facility] [address] [address] [address] Prince lOivas HSTROP 5.4 pg/mL Normal 4.0-51.3 [facility] Comment on above: Result Comment: CUT- OFF POINTS HAVE BEEN ESTABLISHED BASED ON THE FOURTH UNIVERSAL DEFINITIONS OF MYOCARDIAL INFARCTION. THE UPPER REFERENCE LIMIT (URL) OF TROPONIN, DEFINED THE 99TH PERCENTILE OF cTnI DISTRIBUTION IN A REFERENCE POPULATION, HAS BEEN CONFIRMED THE DECISION THRESHOLD FOR LA DIAGNOSIS. Performed By: #### S ELNIUM #### [facility] [address] [place], [place] [address] Dr. Prince Olivas JENNIFER 58 ng/mL Normal 9-82 [facility] Comment on above: Performed By: #### S ELNIUM #### [facility] [address] [place] [address] Dr. Prince Olivas CBC AUTO DIFFon 11-14-2021 BASO # 0.1 103/ul Normal 0.0-0.1 [facility] Comment on above: Performed By: #### L IPID, CMP #### [facility] [address] [place] [address] Dr. Prince Olivas Basophils/100 WBC (Bld) 0.6 % Normal 0.2-2.0 [facility] Comment on above: Performed By: #### L IPID, CMP #### [facility] [address] [place] [address] Dr. Prince Olivas EO # 0.1 103/ul Normal 0.0-0.7 [facility] Comment on above: Performed By: #### L IPID, CMP #### [facility] [address] [place] [address] Dr. Prince Olivas Eosinophils/100 WBC (Bld) 0.9 % Normal 0.9-7.0 [facility] Comment on above: Performed By: #### L IPID, CMP #### [facility] [address] [place] [address] Dr. Prince Olivas Erythrocyte distribution width (RBC) [Ratio] 13.0 % Normal 11.0-15.0 [facility] Comment on above: Performed By: #### L IPID, CMP #### [facility] [address] [place] [address] Dr. Prince Olivas Hematocrit (Bld) [Volume fraction] 46.3 % Normal 36.0-48.0 [facility] Comment on above: Performed By: #### L IPID, CMP #### [facility] [address] [place] [address] Dr. Prince Olivas Hemoglobin (Bld) [Mass/Vol] 15.8 g/dL Normal 12.0-16.0 [facility] Comment on above: Performed By: #### L IPID, CMP #### [facility] [address] [place] [address] Dr. Prince Olivas IG # 0.03 10e3/ul Normal 0.00-0.03 [facility] Comment on above: Performed By: #### L IPID, CMP #### [facility] [address] [place] [address] Dr. Prince Olivas IG % 0.3 % Normal 0.0-0.5 [facility] Comment on above: Performed By: #### L IPID, CMP #### [facility] [address] [place] [address] Dr. Prince Olivas LYMPH # 2.8 103/ul Normal 1.2-3.8 [facility] Comment on above: Performed By: #### L IPID, CMP #### [facility] [address] [place] [address] Dr. Prince Olivas Lymphocytes/100 WBC (Bld) 31.8 % Normal 20.5-60.0 [facility] Comment on above: Performed By: #### L IPID, CMP #### [facility] [address] [place] [address] Dr. Prince Olivas MANUAL DIFF REQ NO Normal [facility] Comment on above: Performed By: #### L IPID, CMP #### [facility] [address] [place] [address] Dr. Prince Olivas MCH (RBC) [Entitic mass] 31.5 pg Normal 26.7-34.0 [facility] Comment on above: Performed By: #### L IPID, CMP #### [facility] [address] [place] [address] Dr. Prince Olivas MCHC (RBC) [Mass/Vol] 34.1 g/dL Normal 29.9-35.2 [facility] Comment on above: Performed By: #### L IPID, CMP #### [facility] [address] [place] [address] Dr. Prince Olivas MCV (RBC) [Entitic vol] 92.4 fL Normal 81.0-99.0 [facility] Comment on above: Performed By: #### L IPID, CMP #### [facility] [address] [place] [address] Dr. Prince Olivas MONO # 0.6 103/ul Normal 0.3-0.8 [facility] Comment on above: Performed By: #### L IPID, CMP #### [facility] [address] [place] [address] Dr. Prince Olivas Monocytes/100 WBC (Bld) 6.8 % Normal 1.7-12.0 [facility] Comment on above: Performed By: #### L IPID, CMP #### [facility] [address] [place] [address] Dr. Prince Olivas NEUT # 5.3 103/ul Normal 1.4-6.5 [facility] Comment on above: Performed By: #### L IPID, CMP #### [facility] [address] [place] [address] Dr. Prince Olivas Neutrophils/100 WBC (Bld) 59.6 % Normal 43.0-75.0 [facility] Comment on above: Performed By: #### L IPID, CMP #### [facility] [address] [place], [place] [address] Dr. Prince Olivas Platelet mean volume (Bld) [Entitic vol] 11.6 fL Normal 9.5-13.5 [facility] Comment on above: Performed By: #### L IPID, CMP #### [facility] [address] [place] [address] Dr. Prince Olivas PLT 185 103/ul Normal 150-450 [facility] Comment on above: Performed By: #### L IPID, CMP #### [facility] [address] [place] [address] Dr. Prince Olivas RBC 5.01 106/ul Normal 4.20-5.40 [facility] Comment on above: Performed By: #### L IPID, CMP #### [facility] [address] [place] [address] Dr. Prince Olivas WBC 8.9 103/ul Normal 4.0-11.0 [facility] Comment on above: Performed By: #### L IPID, CMP #### [facility] [address] [place] [address] Dr. Prince Olivas LIPASEon 11-14-2021 Lipase [Catalytic activity/Vol] 84.0 U/L Normal 73.0-393.0 [facility] Comment on above: Performed By: #### S ELNIUM #### [facility] [address] [place] [address] Dr. Prince Olivas PROF 14(COMP METB)on 022 Albumin [Mass/Vol] 4.1 g/dL Normal 3.4-5.0 [facility] Comment on above: Performed By: #### S ELNIUM #### [facility] [address] [place] [address] Dr. Prince Olivas Albumin/Globulin [Mass ratio] 1.6 {ratio} Normal [facility] Comment on above: Performed By: #### S ELNIUM #### [facility] [address] [place] [address] Dr. Prince Olivas ALP [Catalytic activity/Vol] 76 U/L Normal 46-116 [facility] Comment on above: Performed By: #### S ELNIUM #### [facility] [address] [address] [address] Prince Olivas ALT [Catalytic activity/Vol] 14 U/L Normal 14-59 [facility] Comment on above: Performed By: #### S ELNIUM #### [facility] [address] [place] [address] Dr. Prince Olivas Anion gap [Moles/Vol] 17.7 mmol/L Normal [facility] Comment on above: Performed By: #### S ELNIUM #### [facility] [address] [place] [address] Dr. Prince Olivas AST [Catalytic activity/Vol] 15 U/L Normal 15-37 [facility] Comment on above: Performed By: #### S ELNIUM #### [facility] [address] [place] [address] Dr. Prince Olivas Bilirubin [Mass/Vol] 0.7 mg/dL Normal 0.2-1.0 [facility] Comment on above: Performed By: #### S ELNIUM #### [facility] [address] [address] [address] Prince Olivas Calcium [Mass/Vol] 9.4 mg/dL Normal 8.5-10.1 [facility] Comment on above: Performed By: #### S ELNIUM #### [facility] [address] [address] [address] Prince Olivas Chloride [Moles/Vol] 104 mmol/L Normal 98-107 [facility] Comment on above: Performed By: #### S ELNIUM #### [facility] [address] [address] [address] Prince Olivas CO2 [Moles/Vol] 20.8 mmol/L Critically low 21.0-32.0 [facility] Comment on above: Performed By: #### S ELNIUM #### [facility] [address] [place] [address] Dr. Prince Olivas Creatinine [Mass/Vol] 0.96 mg/dL Normal 0.55-1.02 [facility] Comment on above: Performed By: #### S ELNIUM #### [facility] [address] [address] [address] Prince Olivas EGFR-AF MOSOTHO >60 Normal >=60 [facility] Comment on above: Performed By: #### S ELNIUM #### [facility] [address] [place] [address] Dr. Prince Olivas EGFR-NON AF MOSOTHO >60 Normal >=60 [facility] Comment on above: Performed By: #### S ELNIUM #### [facility] [address] [address] [address] Prince Olivas Globulin (S) [Mass/Vol] 2.6 g/dL Normal [facility] Comment on above: Performed By: #### S ELNIUM #### [facility] [address] [address] [address] Prince Olivas Glucose [Mass/Vol] 104 mg/dL Normal 74-106 [facility] Comment on above: Performed By: #### S ELNIUM #### [facility] [address] [place] [address] Dr. Prince Olivas Potassium [Moles/Vol] 3.5 mmol/L Normal 3.5-5.1 [facility] Comment on above: Performed By: #### S ELNIUM #### [facility] [address] [address] [address] Prince Olivas Protein [Mass/Vol] 6.7 g/dL Normal 6.4-8.2 [facility] Comment on above: Performed By: #### S ELNIUM #### [facility] [address] [address] [address] Prince Olivas Sodium [Moles/Vol] 139 mmol/L Normal 136-145 [facility] Comment on above: Performed By: #### S ELNIUM #### [facility] [address] [address] [address] Prince Olivas Urea nitrogen [Mass/Vol] 10.0 mg/dL Normal 7.0-18.0 [facility] Comment on above: Performed By: #### S ELNIUM #### [facility] [address] [address] [address] Prince Olivas Urea nitrogen/Creatinine [Mass ratio] 10.4 mg/mg Normal [facility] Comment on above: Performed By: #### S ELNIUM #### [facility] [address] [address] [address] Prince Olivas XR ABD FLAT UP_PA [...] CHITRA ALFARO Date: 2021-11-14 18:10 Normal [facility] CBC AUTO DIFFon 11-09-2021 BASO # 0.0 103/ul Normal 0.0-0.1 [facility] Comment on above: Performed By: #### S ELNIUM #### [facility] [address] [place] [address] Dr. Prince Olivas Basophils/100 WBC (Bld) 0.3 % Normal 0.2-2.0 [facility] Comment on above: Performed By: #### S ELNIUM #### [facility] [address] [place] [address] Dr. Prince Olivas EO # 0.0 103/ul Normal 0.0-0.7 [facility] Comment on above: Performed By: #### S ELNIUM #### [facility] [address] [place] [address] Dr. Prince Olivas Eosinophils/100 WBC (Bld) 0.3 % Critically low 0.9-7.0 [facility] Comment on above: Performed By: #### S ELNIUM #### [facility] [address] [place] [address] Dr. Prince Olivas Erythrocyte distribution width (RBC) [Ratio] 13.1 % Normal 11.0-15.0 [facility] Comment on above: Performed By: #### S ELNIUM #### [facility] [address] [place] [address] Dr. Prince Olivas Hematocrit (Bld) [Volume fraction] 46.8 % Normal 36.0-48.0 [facility] Comment on above: Performed By: #### S ELNIUM #### [facility] [address] [place] [address] Dr. Prince Oliavs Hemoglobin (Bld) [Mass/Vol] 15.8 g/dL Normal 12.0-16.0 [facility] Comment on above: Performed By: #### S ELNIUM #### [facility] [address] [place] [address] Dr. Prince Olivas IG # 0.03 10e3/ul Normal 0.00-0.03 [facility] Comment on above: Performed By: #### S ELNIUM #### [facility] [address] [address] [address] Prince Olivas IG % 0.3 % Normal 0.0-0.5 [facility] Comment on above: Performed By: #### S ELNIUM #### [facility] [address] [address] [address] Prince Olivas LYMPH # 2.9 103/ul Normal 1.2-3.8 [facility] Comment on above: Performed By: #### S ELNIUM #### [facility] [address] [place] [address] Dr. Prince Olivas Lymphocytes/100 WBC (Bld) 31.7 % Normal 20.5-60.0 [facility] Comment on above: Performed By: #### S ELNIUM #### [facility] [address] [place] [address] Dr. Prince Olivas MANUAL DIFF REQ NO Normal [facility] Comment on above: Performed By: #### S ELNIUM #### [facility] [address] [place] [address] Dr. Prince Olivas MCH (RBC) [Entitic mass] 31.9 pg Normal 26.7-34.0 [facility] Comment on above: Performed By: #### S ELNIUM #### [facility] [address] [place] [address] Dr. Prince Olivas MCHC (RBC) [Mass/Vol] 33.8 g/dL Normal 29.9-35.2 [facility] Comment on above: Performed By: #### S ELNIUM #### [facility] [address] [place] [address] Dr. Prince Olivas MCV (RBC) [Entitic vol] 94.5 fL Normal 81.0-99.0 [facility] Comment on above: Performed By: #### S ELNIUM #### [facility] [address] [place] [address] Dr. Prince Olivas MONO # 0.5 103/ul Normal 0.3-0.8 [facility] Comment on above: Performed By: #### S ELNIUM #### [facility] [address] [address] [address] Pricne Olivas Monocytes/100 WBC (Bld) 5.2 % Normal 1.7-12.0 [facility] Comment on above: Performed By: #### S ELNIUM #### [facility] [address] [place] [address] Dr. Prince Olivas NEUT # 5.8 103/ul Normal 1.4-6.5 [facility] Comment on above: Performed By: #### S ELNIUM #### [facility] [address] [place] [address] Dr. Prince Olivas Neutrophils/100 WBC (Bld) 62.2 % Normal 43.0-75.0 [facility] Comment on above: Performed By: #### S ELNIUM #### [facility] [address] [place] [address] Dr. Prince Olivas Platelet mean volume (Bld) [Entitic vol] 11.1 fL Normal 9.5-13.5 [facility] Comment on above: Performed By: #### S ELNIUM #### [facility] [address] [place] [address] Dr. Prince Olivas PLT 218 103/ul Normal 150-450 [facility] Comment on above: Performed By: #### S ELNIUM #### [facility] [address] [place] [address] Dr. Prince Olivas RBC 4.95 106/ul Normal 4.20-5.40 [facility] Comment on above: Performed By: #### S ELNIUM #### [facility] [address] [place] [address] Dr. Prince Olivas WBC 9.3 103/ul Normal 4.0-11.0 [facility] Comment on above: Performed By: #### S ELNIUM #### [facility] [address] [place] [address] Dr. Prince Olivas PROF CHEM 8 (BAS METB)on Anion gap [Moles/Vol] 14.8 mmol/L Normal [facility] Comment on above: Performed By: #### C OPPER #### [facility] [address] [address] [address] Prince Olivas Calcium [Mass/Vol] 9.3 mg/dL Normal 8.5-10.1 [facility] Comment on above: Performed By: #### C OPPER #### [facility] [address] [address] [address] Prince Olivas Chloride [Moles/Vol] 105 mmol/L Normal 98-107 [facility] Comment on above: Performed By: #### C OPPER #### [facility] [address] [address] [address] Prince Olivas CO2 [Moles/Vol] 23.7 mmol/L Normal 21.0-32.0 [facility] Comment on above: Performed By: #### C OPPER #### [facility] [address] [place] [address] Dr. Prince Olivas Creatinine [Mass/Vol] 0.95 mg/dL Normal 0.55-1.02 [facility] Comment on above: Performed By: #### C OPPER #### [facility] [address] [address] [address] Prince Olivas EGFR-AF MOSOTHO >60 Normal >=60 [facility] Comment on above: Performed By: #### C OPPER #### [facility] [address] [place] [address] Dr. Prince Olivas EGFR-NON AF MOSOTHO >60 Normal >=60 [facility] Comment on above: Performed By: #### C OPPER #### [facility] [address] [address] [address] Prince Olivas Glucose [Mass/Vol] 103 mg/dL Normal 74-106 [facility] Comment on above: Performed By: #### C OPPER #### [facility] [address] [place] [address] Dr. Prince Olivas Potassium [Moles/Vol] 3.5 mmol/L Normal 3.5-5.1 [facility] Comment on above: Performed By: #### C OPPER #### [facility] [address] [address] [address] Prince Olivas Sodium [Moles/Vol] 140 mmol/L Normal 136-145 [facility] Comment on above: Performed By: #### C OPPER #### [facility] [address] [address] [address] Prince Olivas Urea nitrogen [Mass/Vol] 7.0 mg/dL Normal 7.0-18.0 [facility] Comment on above: Performed By: #### C OPPER #### [facility] [address] [address] [address] Prince Olivas Urea nitrogen/Creatinine [Mass ratio] 7.4 mg/mg Normal [facility] Comment on above: Performed By: #### C OPPER #### [facility] [address] [address] [address] Prince Olivas TROPONIN, HIGH SENSITIVITYon 11-09-2021 HSTROP 4.3 pg/mL Normal 4.0-51.3 [facility] Comment on above: Result Comment: CUT- OFF POINTS HAVE BEEN ESTABLISHED BASED ON THE FOURTH UNIVERSAL DEFINITIONS OF MYOCARDIAL INFARCTION. THE UPPER REFERENCE LIMIT (URL) OF TROPONIN, DEFINED THE 99TH PERCENTILE OF cTnI DISTRIBUTION IN A REFERENCE POPULATION, HAS BEEN CONFIRMED THE DECISION THRESHOLD FOR LA DIAGNOSIS. Performed By: #### C OPPER #### [facility] [address] [place] [address] Dr. Prince Olivas XR CHEST 1 Von [...] BELEN REGAN Date: 2021-11-09 17:05 Normal [facility] CARDIAC SIMA ADMITon 022 CK [Catalytic activity/Vol] 62 U/L Normal 26-192 [facility] Comment on above: Performed By: #### M MA2 #### [facility] [address] [place] [address] Dr. Prince Olivas CK.MB [Mass/Vol] 0.37 ng/mL Normal <=3.60 [facility] Comment on above: Performed By: #### M MA2 #### [facility] [address] [place] [address] Dr. Prince Olivas HSTROP 3.5 pg/mL Critically low 4.0-51.3 [facility] Comment on above: Result Comment: CUT- OFF POINTS HAVE BEEN ESTABLISHED BASED ON THE FOURTH UNIVERSAL DEFINITIONS OF MYOCARDIAL INFARCTION. THE UPPER REFERENCE LIMIT (URL) OF TROPONIN, DEFINED THE 99TH PERCENTILE OF cTnI DISTRIBUTION IN A REFERENCE POPULATION, HAS BEEN CONFIRMED THE DECISION THRESHOLD FOR LA DIAGNOSIS. Performed By: #### M MA2 #### [facility] [address] [place] [address] Dr. Prince Olivas JENNIFER 40 ng/mL Normal 9-82 [facility] Comment on above: Performed By: #### M MA2 #### [facility] [address] [place] [address] Dr. Prince Olivas CBC AUTO DIFFon 10-04-2021 BASO # 0.0 103/ul Normal 0.0-0.1 [facility] Comment on above: Performed By: #### C BC #### [facility] [address] [place] [address] Dr. Prince Olivas Basophils/100 WBC (Bld) 0.6 % Normal 0.2-2.0 [facility] Comment on above: Performed By: #### C BC #### [facility] [address] [place] [address] Dr. Prince Olivas EO # 0.3 103/ul Normal 0.0-0.7 [facility] Comment on above: Performed By: #### C BC #### [facility] [address] [place] [address] Dr. Prince Olivas Eosinophils/100 WBC (Bld) 3.7 % Normal 0.9-7.0 [facility] Comment on above: Performed By: #### C BC #### [facility] [address] [place] [address] Dr. Prince Olivas Erythrocyte distribution width (RBC) [Ratio] 13.4 % Normal 11.0-15.0 [facility] Comment on above: Performed By: #### C BC #### [facility] [address] [place] [address] Dr. Prince Olivas Hematocrit (Bld) [Volume fraction] 42.8 % Normal 36.0-48.0 [facility] Comment on above: Performed By: #### C BC #### [facility] [address] [place] [address] Dr. Prince Olivas Hemoglobin (Bld) [Mass/Vol] 14.1 g/dL Normal 12.0-16.0 [facility] Comment on above: Performed By: #### C BC #### [facility] [address] [place] [address] Dr. Prince Olivas IG # 0.02 10e3/ul Normal 0.00-0.03 [facility] Comment on above: Performed By: #### C BC #### [facility] [address] [place] [address] Dr. Prince Olivas IG % 0.3 % Normal 0.0-0.5 [facility] Comment on above: Performed By: #### C BC #### [facility] [address] [place] [address] Dr. Prince Olivas LYMPH # 2.0 103/ul Normal 1.2-3.8 [facility] Comment on above: Performed By: #### C BC #### [facility] [address] [place] [address] Dr. Prince Olivas Lymphocytes/100 WBC (Bld) 27.6 % Normal 20.5-60.0 [facility] Comment on above: Performed By: #### C BC #### [facility] [address] [place] [address] Dr. Prince Olivas MANUAL DIFF REQ NO Normal [facility] Comment on above: Performed By: #### C BC #### [facility] [address] [place] [address] Dr. Prince Olivas MCH (RBC) [Entitic mass] 31.4 pg Normal 26.7-34.0 [facility] Comment on above: Performed By: #### C BC #### [facility] [address] [place] [address] Dr. Prince Olivas MCHC (RBC) [Mass/Vol] 32.9 g/dL Normal 29.9-35.2 [facility] Comment on above: Performed By: #### C BC #### [facility] [address] [place] [address] Dr. Prince Olivas MCV (RBC) [Entitic vol] 95.3 fL Normal 81.0-99.0 [facility] Comment on above: Performed By: #### C BC #### [facility] [address] [place] [address] Dr. Prince Olivas MONO # 0.6 103/ul Normal 0.3-0.8 [facility] Comment on above: Performed By: #### C BC #### [facility] [address] [place] [address] Dr. Prince Olivas Monocytes/100 WBC (Bld) 8.2 % Normal 1.7-12.0 [facility] Comment on above: Performed By: #### C BC #### [facility] [address] [place] [address] Dr. Prince Olivas NEUT # 4.2 103/ul Normal 1.4-6.5 [facility] Comment on above: Performed By: #### C BC #### [facility] [address] [place] [address] Dr. Prince Olivas Neutrophils/100 WBC (Bld) 59.6 % Normal 43.0-75.0 [facility] Comment on above: Performed By: #### C BC #### [facility] [address] [place] [address] Dr. Prince Olivas Platelet mean volume (Bld) [Entitic vol] 11.1 fL Normal 9.5-13.5 [facility] Comment on above: Performed By: #### C BC #### [facility] [address] [place] [address] Dr. Prince Olivas PLT 194 103/ul Normal 150-450 [facility] Comment on above: Performed By: #### C BC #### [facility] [address] [place] [address] Dr. Prince Olivas RBC 4.49 106/ul Normal 4.20-5.40 [facility] Comment on above: Performed By: #### C BC #### [facility] [address] [place] [address] Dr. Prince Olivas WBC 7.1 103/ul Normal 4.0-11.0 [facility] Comment on above: Performed By: #### C BC #### [facility] [address] [place] [address] Dr. Prince Olivas PROF 14(COMP METB)on 022 Albumin [Mass/Vol] 3.9 g/dL Normal 3.4-5.0 [facility] Comment on above: Performed By: #### Marine CAMPBELL2 #### [facility] [address] [place] [address] Dr. Prince Olivas Albumin/Globulin [Mass ratio] 1.4 {ratio} Normal [facility] Comment on above: Performed By: #### Marine CAMPBELL2 #### [facility] [address] [place] [address] Dr. Prince Olivas ALP [Catalytic activity/Vol] 71 U/L Normal 46-116 [facility] Comment on above: Performed By: #### Marine CAMPBELL2 #### [facility] [address] [place] [address] Dr. Prince Olivas ALT [Catalytic activity/Vol] 18 U/L Normal 14-59 [facility] Comment on above: Performed By: #### Marine CAMPBELL2 #### [facility] [address] [place] [address] Dr. Prince Olivas Anion gap [Moles/Vol] 10.1 mmol/L Normal [facility] Comment on above: Performed By: #### Marine CAMPBELL2 #### [facility] [address] [place] [address] Dr. Prince Olivas AST [Catalytic activity/Vol] 11 U/L Critically low 15-37 [facility] Comment on above: Performed By: #### M MA2 #### [facility] [address] [address] [address] Prince Olivas Bilirubin [Mass/Vol] 0.4 mg/dL Normal 0.2-1.0 [facility] Comment on above: Performed By: #### M MA2 #### [facility] [address] [address] [address] Prince Olivas Calcium [Mass/Vol] 8.8 mg/dL Normal 8.5-10.1 [facility] Comment on above: Performed By: #### M MA2 #### [facility] [address] [place] [address] Dr. Prince Olivas Chloride [Moles/Vol] 105 mmol/L Normal 98-107 [facility] Comment on above: Performed By: #### M MA2 #### [facility] [address] [place] [address] Dr. Prince Olivas CO2 [Moles/Vol] 27.0 mmol/L Normal 21.0-32.0 [facility] Comment on above: Performed By: #### M MA2 #### [facility] [address] [place] [address] Dr. Prince Olivas Creatinine [Mass/Vol] 0.67 mg/dL Normal 0.55-1.02 [facility] Comment on above: Performed By: #### M MA2 #### [facility] [address] [place] [address] Dr. Prince Olivas EGFR-AF MOSOTHO >60 Normal >=60 [facility] Comment on above: Performed By: #### M MA2 #### [facility] [address] [address] [address] Prince Olivas EGFR-NON AF MOSOTHO >60 Normal >=60 [facility] Comment on above: Performed By: #### M MA2 #### [facility] [address] [place] [address] Dr. Prince Olivas Globulin (S) [Mass/Vol] 2.7 g/dL Normal [facility] Comment on above: Performed By: #### M MA2 #### [facility] [address] [address] [address] Prince Olivas Glucose [Mass/Vol] 105 mg/dL Normal 74-106 [facility] Comment on above: Performed By: #### M MA2 #### [facility] [address] [address] [address] Prince Olivas Potassium [Moles/Vol] 4.1 mmol/L Normal 3.5-5.1 [facility] Comment on above: Performed By: #### M MA2 #### [facility] [address] [address] [address] Prince Olivas Protein [Mass/Vol] 6.6 g/dL Normal 6.4-8.2 [facility] Comment on above: Performed By: #### M MA2 #### [facility] [address] [address] [address] Prince Olivas Sodium [Moles/Vol] 138 mmol/L Normal 136-145 [facility] Comment on above: Performed By: #### M MA2 #### [facility] [address] [address] [address] Prince Olivas Urea nitrogen [Mass/Vol] 7.0 mg/dL Normal 7.0-18.0 [facility] Comment on above: Performed By: #### M MA2 #### [facility] [address] [address] [address] Prince Olivas Urea nitrogen/Creatinine [Mass ratio] 10.4 mg/mg Normal [facility] Comment on above: Performed By: #### M MA2 #### [facility] [address] [address] [address] Prince Olivas XR CHEST 1 Von [...] BARBI HENRY Date: 2021-10-04 10:58 Normal [facility] PROLACTINon 09-26-2021 Prolactin 149.0 ng/mL Critically high 4.8-23.3 [facility] Comment on above: Performed By: #### L IPID, CMP #### [facility] [address] [address] [address] Prince Olivas LIPID PROFILEon 09-25-2021 CHOL-HDL RATIO NORM SEE BELOW Normal [facility] Comment on above: Result Comment: 3.3 - 4.4 LOW RISK 4.4 - 7.1 AVERAGE RISK 7.1 - 11.0 MODERATE RISK >11.0 HIGH RISK Performed By: #### L IPID, CMP #### [facility] [address] [address] [address] Prince Olivas Cholesterol [Mass/Vol] 205 mg/dL Critically high <=200 [facility] Comment on above: Performed By: #### L IPID, CMP #### [facility] [address] [address] [address] Prince Olivas Cholesterol in HDL [Mass/Vol] 46 mg/dL Normal 40-60 [facility] Comment on above: Performed By: #### L IPID, CMP #### [facility] [address] [address] [address] Prince Olivas Cholesterol in LDL [Mass/Vol] 148.6 mg/dL Normal [facility] Comment on above: Performed By: #### L IPID, CMP #### [facility] [address] [address] [address] Prince Olivas Cholesterol.total/C holesterol in HDL [Mass ratio] 4.5 {ratio} Normal [facility] Comment on above: Performed By: #### L IPID, CMP #### [facility] [address] [address] [address] Prince Olivas HDL NORMAL > or = 60 mg/dl - LO W CARDIOVASCULAR RISK <40 mg/dl - HIGH CARDIOVASCULAR RISK Normal [facility] Comment on above: Performed By: #### L IPID, CMP #### [facility] [address] [address] [address] Prince Olivas LDL CALC NORMAL SEE BELOW Normal [facility] Comment on above: Result Comment: <100 mg/dl OPTIMAL 100 - 129 mg/dl NEAR OR ABOVE OPTIMAL 130 - 159 mg/dl BORDERLINE HIGH 160 - 189 mg/dl HIGH >190 mg/dl VERY HIGH Performed By: #### L IPID, CMP #### [facility] [address] [place] [address] Dr. Prince Olivas Triglyceride [Mass/Vol] 52 mg/dL Normal <=150 [facility] Comment on above: Performed By: #### L IPID, CMP #### [facility] [address] [address] [address] Prince Olivas VLDL CALC 10.4 mg/dL Normal [facility] Comment on above: Performed By: #### L IPID, CMP #### [facility] [address] [place] [address] Dr. Prince Olivas PROF 14(COMP METB)on 022 Albumin [Mass/Vol] 3.7 g/dL Normal 3.4-5.0 [facility] Comment on above: Performed By: #### L IPID, CMP #### [facility] [address] [place] [address] Dr. Prince Olivas Albumin/Globulin [Mass ratio] 1.5 {ratio} Normal [facility] Comment on above: Performed By: #### L IPID, CMP #### [facility] [address] [address] [address] Prince Olivas ALP [Catalytic activity/Vol] 66 U/L Normal 46-116 [facility] Comment on above: Performed By: #### L IPID, CMP #### [facility] [address] [address] [address] Prince Olivas ALT [Catalytic activity/Vol] 14 U/L Normal 14-59 [facility] Comment on above: Performed By: #### L IPID, CMP #### [facility] [address] [place] [address] Dr. Prince Olivas Anion gap [Moles/Vol] 13.8 mmol/L Normal [facility] Comment on above: Performed By: #### L IPID, CMP #### [facility] [address] [address] [address] Prince Olivas AST [Catalytic activity/Vol] 10 U/L Critically low 15-37 [facility] Comment on above: Performed By: #### L IPID, CMP #### [facility] [address] [address] [address] Prince Olivas Bilirubin [Mass/Vol] 0.3 mg/dL Normal 0.2-1.0 [facility] Comment on above: Performed By: #### L IPID, CMP #### [facility] [address] [address] [address] Prince Olivas Calcium [Mass/Vol] 8.9 mg/dL Normal 8.5-10.1 [facility] Comment on above: Performed By: #### L IPID, CMP #### [facility] [address] [place] [address] Dr. Prince Olivas Chloride [Moles/Vol] 106 mmol/L Normal 98-107 [facility] Comment on above: Performed By: #### L IPID, CMP #### [facility] [address] [address] [address] Prince Olivas CO2 [Moles/Vol] 24.0 mmol/L Normal 21.0-32.0 [facility] Comment on above: Performed By: #### L IPID, CMP #### [facility] [address] [address] [address] Prince Olivas Creatinine [Mass/Vol] 1.05 mg/dL Critically high 0.55-1.02 [facility] Comment on above: Performed By: #### L IPID, CMP #### [facility] [address] [address] [address] Prince Olivas EGFR-AF MOSOTHO >60 Normal >=60 [facility] Comment on above: Performed By: #### L IPID, CMP #### [facility] [address] [place] [address] Dr. Prince Olivas EGFR-NON AF MOSOTHO 55 mL/min/1.73m2 Critically low >=60 [facility] Comment on above: Performed By: #### L IPID, CMP #### [facility] [address] [address] [address] Prince Olivas Globulin (S) [Mass/Vol] 2.5 g/dL Normal [facility] Comment on above: Performed By: #### L IPID, CMP #### [facility] [address] [place] [address] Dr. Prince Olivas Glucose [Mass/Vol] 107 mg/dL Critically high 74-106 [facility] Comment on above: Performed By: #### L IPID, CMP #### [facility] [address] [place] [address] Dr. Prince Olivas Potassium [Moles/Vol] 3.8 mmol/L Normal 3.5-5.1 [facility] Comment on above: Performed By: #### L IPID, CMP #### [facility] [address] [place] [address] Dr. Prince Olivas Protein [Mass/Vol] 6.2 g/dL Critically low 6.4-8.2 [facility] Comment on above: Performed By: #### L IPID, CMP #### [facility] [address] [place] [address] Dr. Prince Olivas Sodium [Moles/Vol] 140 mmol/L Normal 136-145 [facility] Comment on above: Performed By: #### L IPID, CMP #### [facility] [address] [place] [address] Dr. Prince Olivas Urea nitrogen [Mass/Vol] 10.0 mg/dL Normal 7.0-18.0 [facility] Comment on above: Performed By: #### L IPID, CMP #### [facility] [address] [place] [address] Dr. Prince Olivas Urea nitrogen/Creatinine [Mass ratio] 9.5 mg/mg Normal [facility] Comment on above: Performed By: #### L IPID, CMP #### [facility] [address] [place] [address] Dr. Prince Olivas Vital Signs Date Time Vital Sign Value Performing Clinician Facility 01-16-2024 10:08-0400 Blood Pressure Location [facility] 01-16-2024 10:08-0400 Diastolic blood pressure 76 mm[Hg] Sandoval Magañali [facility] 01-16-2024 10:08-0400 Heart rate 73 /min Sandoval Magañali [facility] 01-16-2024 10:08-0400 Systolic blood pressure 116 mm[Hg] Sandoval Magañali [facility] 09-24-2023 15:00-0400 Diastolic blood pressure 78 mm[Hg] José Luis Astrid [facility] 09-24-2023 15:00-0400 Heart rate 66 /min José Luis Astrid [facility] 09-24-2023 15:00-0400 Mean blood pressure 95 mm[Hg] José Luis Astrid [facility] 09-24-2023 15:00-0400 Respiratory rate 16 /min José Luis Astrid [facility] 09-24-2023 15:00-0400 Systolic blood pressure 128 mm[Hg] José Luis Astrid [facility] 09-24-2023 14:00-0400 Diastolic blood pressure 69 mm[Hg] José Luis Astrid [facility] 09-24-2023 14:00-0400 Heart rate 75 /min José Luis Astird [facility] 09-24-2023 14:00-0400 Mean blood pressure 88 mm[Hg] José Luis Astrid [facility] 09-24-2023 14:00-0400 SaO2% (BldA) [Mass fraction] 95 % José Luis Resendiz [facility] 09-24-2023 14:00-0400 Systolic blood pressure 126 mm[Hg] José Luis Resendiz [facility] 09-24-2023 12:58-0400 Body temperature 98.06 [degF] José Luis Resendiz [facility] 09-24-2023 12:58-0400 Diastolic blood pressure 82 mm[Hg] José Luis Resendiz [facility] 09-24-2023 12:58-0400 Heart rate 89 /min José Luis Resendiz [facility] 09-24-2023 12:58-0400 Respiratory rate 18 /min José Luis Resendiz [facility] 09-24-2023 12:58-0400 SaO2% (BldA) [Mass fraction] 96 % José Luis Resendiz [facility] 09-24-2023 12:58-0400 Systolic blood pressure 125 mm[Hg] José Luis Resendiz [facility] 04-04-2022 15:50-0500 Diastolic blood pressure 70 mm[Hg] Tiffani Morales MD Work Phone: [facility] 04-04-2022 15:50-0500 Heart rate 73 /min Tiffani Morales MD Work Phone: [facility] 04-04-2022 15:50-0500 Respiratory rate 16 /min Tiffani Morales MD Work Phone: [facility] 04-04-2022 15:50-0500 SaO2% (BldA) [Mass fraction] 97 % Tiffani Morales MD Work Phone: [facility] 04-04-2022 15:50-0500 Systolic blood pressure 117 mm[Hg] Tiffani Morales MD Work Phone: [facility] 04-04-2022 15:26-0500 Body temperature 97.2 [degF] Tiffani Morales MD Work Phone: [facility] 04-04-2022 12:51-0500 Body height 172.7 cm Tiffani Morales MD Work Phone: [facility] 04-04-2022 12:51-0500 Body weight 45.81 kg Tiffani Morales MD Work Phone: [facility] 01-01-2022 16:50-0400 Diastolic blood pressure 69 mm[Hg] Tiffani Morales MD Work Phone: [facility] 01-01-2022 16:50-0400 Heart rate 69 /min Tiffani Morales MD Work Phone: [facility] 01-01-2022 16:50-0400 Respiratory rate 16 /min Tiffani Morales MD Work Phone: [facility] 01-01-2022 16:50-0400 SaO2% (BldA) [Mass fraction] 95 % Tiffani Morales MD Work Phone: [facility] 01-01-2022 16:50-0400 Systolic blood pressure 110 mm[Hg] Tiffani Morales MD Work Phone: [facility] 01-01-2022 16:33-0400 Body temperature 98.1 [degF] Tiffani Morales MD Work Phone: [facility] 01-01-2022 15:39-0400 Body height 172.7 cm Tiffani Morales MD Work Phone: [facility] 01-01-2022 15:39-0400 Body weight 45.81 kg Tiffani Morales MD Work Phone: [facility] 06-20-2021 13:37-0400 Body height 174 cm Robb Evans MD Work Phone: [facility] 06-20-2021 13:37-0400 Body mass index (BMI) [Ratio] 17.98 kg/m2 Robb Evans MD Work Phone: [facility] 06-20-2021 13:37-0400 Body weight 54.43 kg Robb Evans MD Work Phone: [facility] 06-20-2021 13:37-0400 Diastolic blood pressure 69 mm[Hg] Robb Evans MD Work Phone: [facility] 06-20-2021 13:37-0400 Heart rate 77 /min Robb Evans MD Work Phone: [facility] 06-20-2021 13:37-0400 Respiratory rate 16 /min Robb Evans MD Work Phone: [facility] 06-20-2021 13:37-0400 SaO2% (BldA) [Mass fraction] 95 % Robb Evans MD Work Phone: [facility] 06-20-2021 13:37-0400 Systolic blood pressure 102 mm[Hg] Robb Evans MD Work Phone: [facility] 07-18-2020 14:10-0400 Body height 174 cm Robb Evans MD Work Phone: [facility] 07-18-2020 14:10-0400 Body mass index (BMI) [Ratio] 17.38 kg/m2 Robb Evans MD Work Phone: [facility] 07-18-2020 14:10-0400 Body weight 52.62 kg Robb Evans MD Work Phone: [facility] 07-18-2020 14:10-0400 Diastolic blood pressure 68 mm[Hg] Robb Evans MD Work Phone: [facility] 07-18-2020 14:10-0400 Heart rate 84 /min Robb Evans MD Work Phone: [facility] 07-18-2020 14:10-0400 Respiratory rate 16 /min Robb Evans MD Work Phone: [facility] 07-18-2020 [id number]:[id number] SaO2% (BldA) [Mass fraction] 96 % Robb Evans MD Work Phone: [facility] 07-18-2020 [id number]:[id number] Systolic blood pressure 94 mm[Hg] Robb Evans MD Work Phone: [facility] Encounters Encounter Date Encounter Type Care Provider Facility Start: 01-27-2024 End: 01-27-2024 ambulatory Sandoval Rae Facility:[facility] Start: 01-27-2024 End: 01-27-2024 Patient encounter procedure Sandoval Rae [facility] Start: 01-16-2024 End: 01-16-2024 ambulatory Sandoval Rae Facility:[facility] Start: 01-16-2024 End: 01-16-2024 Patient encounter procedure Sandoval Rae [facility] Start: 11-26-2023 End: 11-26-2023 ambulatory Lala L Carolee Facility: [facility] [place] [facility] Start: 10-03-2023 End: 10-03-2023 ambulatory Lala L Carolee Facility: [facility] [place] [facility] Start: 09-27-2023 ambulatory CHANCE ZACH Facility:[facility] Start: 09-24-2023 End: 09-24-2023 Emergency department patient visit José Luis Resendiz [facility] Start: 05-08-2022 Telephone encounter Tiffani valencia MD Work Phone: Gastroenterology Comment on above: Patient Question Start: 05-07-2022 End: 05-08-2022 ambulatory IRINA SEGURA Facility: Start: 04-24-2022 End: 04-24-2022 ambulatory CRISTINA IQBAL Facility:[facility] Start: 04-24-2022 End: 04-24-2022 Nutrition therapy Tiffani Morales MD Work Phone: Gastroenterology Comment on above: Severe malnutrition (HCC) (Primary Dx) Start: 04-24-2022 End: 04-24-2022 Telemedicine consultation with patient Tiffani Morales MD Work Phone: [facility] Start: 04-20-2022 Refill Robb Evans MD Work Phone: [facility] Start: 04-12-2022 Refill Saúl Kaur [facility] Comment on above: Generalized anxiety disorder Start: 04-05-2022 Telephone encounter Tiffani valencia MD Work Phone: Gastroenterology Comment on above: Refill Request Start: 04-04-2022 End: 04-04-2022 ambulatory FREDERICK CHAVES Facility:[facility] Start: 04-04-2022 End: 04-04-2022 Subsequent hospital visit by physician Tiffani Morales MD Work Phone: Gastroenterology Comment on above: 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] Start: 03-31-2022 End: 04-01-[address] DOCTOR BERMEO Facility:[facility] Start: 03-28-2022 End: 03-29-[address] BRITNI SIMPSON Facility:[facility] Start: 03-28-2022 Telephone encounter Eduardo Harrington RNreamer hand Comment on above: Appointment Confirma tion Start: 03-20-2022 Refill Saúl SHORT [facility] Start: 03-14-2022 Refill Anastasiya Mosqueda PA-C Work Phone: Gastroenterology Comment on above: Refill Request Start: 03-09-2022 Refill Gokul Maurilio CAMPBELL [facility] Comment on above: Generalized anxiety disorder Start: 03-01-2022 End: 03-01-2022 ambulatory CRISTINA IQBAL Facility:[facility] Start: 03-01-2022 End: 03-01-2022 Nutrition therapy Tiffani Morales MD Work Phone: Gastroenterology Comment on above: Severe protein-calor ie malnutrition (HCC) (Primary Dx); 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); Weight loss; Severe malnutrition (HCC) Start: 03-01-2022 End: 03-01-2022 Telemedicine consultation with patient Tiffani Morales MD Work Phone: [facility] Start: 02-07-2022 ambulatory Yan wood MD Work Phone: Gastroenterology Start: 02-07-2022 Patient encounter procedure Yan Garcia Jr., MD Work Phone: [facility] Start: 02-07-2022 Refill Anastasiya Mosqueda PA-C Work Phone: Gastroenterology Comment on above: Refill Request Start: 02-06-2022 End: 02-07-2022 ambulatory [facility] Facility:[facility] Start: 02-05-2022 End: 02-05-2022 [facility]ulatory [facility] Start: 01-29-2022 ambulatory Dolores Lopez RN Gast[facility]enterology Start: 01-29-2022 Patient encounter procedure Dolores Lopez RN [facility] Start: 01-29-2022 End: 01-29-2022 Subsequent hospital visit by physician Capsule Work Phone: Gastroenterology Comment on above: Arrived Start: 01-17-2022 ambulatory Roshni Reyes ty:Thuy ELLIOTT Start: 01-16-2022 Refill Gokul Maurilio CAMPBELL [facility] Start: 01-05-2022 Telephone encounter Anastasiya kimbrough PA-C Work Phone: Gastroenterology Comment on above: Patient Question; Re turning Patient's Call; Results Nausea (Primary Dx); Weight loss; Small bowel polyp Results (Post-EGD) Start: 01-03-2022 Telephone encounter Anastasiya kimbrough PA-C Work Phone: Gastroenterology Comment on above: Results Start: 01-02-2022 Telephone encounter Anastasiya Mukh luis e PA-C Work Phone: [facility] Comment on above: Results Start: 01-01-2022 End: 01-01-2022 ambulatory KIRSTEN DALTON Facility:[facility] Start: 01-01-2022 End: 01-01-2022 Subsequent hospital visit by physician Tiffani Morales MD Work Phone: Gastroenterology Comment on above: Nausea and vomiting, unspecified vomiting type [R11.2] Start: 12-25-2021 Telephone encounter Rima Gerard RNreamer hand Comment on above: Appointment Start: 12-19-2021 End: 12-19-2021 [facility] Start: 12-15-2021 End: 12-16-2021 ambulatory Anastasiya Nolani PA-C Work Phone: Gastroenterology Comment on above: Nausea and vomiting, unspecified vomiting type (Primary Dx); Left upper quadrant abdominal pain; Weight loss Start: 12-15-2021 End: 12-15-2021 Telemedicine consultation with patient Anastasiya Nolani PA-C Work Phone: [facility] Start: 12-14-2021 End: 12-14-2021 ambulatory ANASTASIYA MOSQUEDA Facility:[facility] Start: 12-14-2021 End: 12-14-2021 Patient encounter procedure Anastasiya Hubbarddomi PA-C Work Phone: Gastroenterology Comment on above: APPOINTMENT CANCELLE D (Primary Dx) Start: 12-14-2021 End: 12-14-2021 Telemedicine consultation with patient Anastasiya Nolani PA-C Work Phone: [facility] Start: 12-13-2021 Telephone encounter Anastasiya Hubbard luis e PA-C Work Phone: Gastroenterology Comment on above: Appointment Start: 12-11-2021 End: 12-11-2021 ambulatory KISHAN IQBAL Facility: Start: 12-03-2021 End: 12-03-2021 Emergency department patient visit [facility] Facility:[facility] Start: 11-14-2021 End: 11-14-2021 ambulatory KISHAN IQBAL Facility:[facility] Start: 11-09-2021 End: 11-09-2021 ambulatory KISHAN IQBAL Facility:[facility] Start: 10-04-2021 End: 10-04-2021 ambulatory KISHAN IQBAL Facility:[facility] Start: 10-03-2021 Refill Robb Evans MD Work Phone: [facility] Start: 09-27-2021 Documentation procedure Zuleyma Evans MD Work Phone: [facility] Start: 09-25-2021 End: 09-26-2021 ambulatory ROBB EVANS Facility:[facility] Start: 09-19-2021 End: 09-19-2021 [facility] Start: 09-19-2021 End: 09-19-2021 Office outpatient visit 25 minutes Robb Evans MD Work Phone: [facility] Comment on above: Bipolar 1 disorder, mixed, mild (HCC) (Primary Dx); Generalized anxiety disorder; Long-term use of high-risk medication Start: 09-15-2021 Refill Fartun Mack LPN [facility] Comment on above: Generalized anxiety disorder Start: 06-20-2021 End: 06-20-2021 [facility] Start: 06-20-2021 End: 06-20-2021 Office outpatient visit 25 minutes Robb Evans MD Work Phone: [facility] Comment on above: Generalized anxiety disorder (Primary Dx); Bipolar 1 disorder, mixed, mild (HCC); Long-term use of high-risk medication; Post traumatic stress disorder (PTSD) Start: 04-03-2021 Refill Gokul Montoya MA [facility] Comment on above: Generalized anxiety disorder Start: 03-01-2021 End: 03-01-2021 Phys/qhp telephone evaluation 11-20 min Robb Evans MD Work Phone: [facility] Comment on above: Bipolar 1 disorder, mixed, mild (HCC) (Primary Dx); Generalized anxiety disorder; Long-term use of high-risk medication Start: 03-01-2021 End: 03-01-2021 ambulatory CRISTINA IQBAL [facility] Start: 01-31-2021 Refill Gokul Montoya ADRIAN [facility] Comment on above: Generalized anxiety disorder Start: 12-29-2020 Refill Gokul Maurilio CAMPBELL [facility] Comment on above: Generalized anxiety disorder Start: 08-22-2020 End: 08-22-2020 Phys/qhp telephone evaluation 11-20 min Upobdulio Evans MD Work Phone: [facility] Comment on above: 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); Generalized anxiety disorder; Long-term use of high-risk medication Start: 07-18-2020 End: 07-18-2020 Office outpatient visit 25 minutes Upobdulio Evans MD Work Phone: [facility] Comment on above: Generalized anxiety disorder (Primary Dx); Moderate mixed bipolar I disorder (HCC); Long-term use of high-risk medication Procedures Date Procedure Procedure Detail Performing Clinician Start: 04-04-2022 Endoscopy upper small intestine Tiffani Morales MD Work Phone: Start: 01-01-2022 Esophagogastroduodenoscopy transoral diagnostic Anastasiya Mosqueda PA-C Work Phone: Start: 05-08-2019 Colonoscopy Gokul Maurilio CAMPBELL Start: 05-08-2019 Colonoscopy José Luis Resendiz Comment on above: 2 small sessile polyps descending colon, 5 small sessile polyps sigmoid. Start: 05-08-2019 Esophagogastroduodenoscopy José Luis Resendiz Comment on above: mild antral gastristis and small hiatal hernia Start: 01-18-2019 Computerized axial tomography José Luis vela Comment on above: Abdomen and Pelvis; small left renal cys t Start: 11-14-2016 Echocardiography José Luis Resendiz Comment on above: ECG Monitoring also performed. Normal , EF 55-60% no vascular abnormalties Start: 11-01-2016 Cardiovascular stress testing José Luis vela Comment on above: Normal; EF 74%, normal study, nucleur Appendectomy José Luis Resendiz section José Luis thomas Cholecystectomy José Luis Resendiz Foot repair José Luis Resendiz H/O: surgery History of abdom inal surgery Sandoval Rae History of cholecystectomy S/P cholecyste ctomy Sandoval Rae Oral surgery (qualifier value) José Luis Resendiz Total hysterectomy José Luis nolasco Plan of Treatment Date Care Activity Detail Author Start: 05-08-2029 Screening for malign ant neoplasm of colon [facility] Start: 04-27-2022 End: 04-27-2022 Patient encounter procedure 04/27/2022 Office Visit Psychiatry Robb Evans MD [address] [place], [place] [id number] [facility] Start: 03-26-2022 End: 03-26-2022 Patient encounter procedure 03/26/2022 Office Visit Psychiatry Robb Evans MD [address] [place], [place] [id number] [facility] Start: 03-18-2022 DEPRESSION ASSESSMENT DEPRESSION ASS ESSMENT [facility] Start: 03-02-2022 End: 03-01-2023 25-hydroxyvitamin D3 [Mass/volume] in Serum or Plasma VITAMIN D 25 HYDROXY Lab Routine Severe protein-calorie malnutrition (HCC) Expected: 03/02/2022 (Approximate), Expires: 03/01/2023 [facility] Work Phone: Comment on above: Expected: 03/02/2022 (Approximate), Expires: 03/01/2023 Start: 03-02-2022 End: 03-01-2023 Alpha tocopherol [Mass/volume] in Serum or Plasma VITAMIN E/TOCOPHEROL Lab Routine Severe protein-calorie malnutrition (HCC) Expected: 03/02/2022 (Approximate), Expires: 03/01/2023 [facility] Work Phone: Comment on above: Expected: 03/02/2022 (Approximate), Expires: 03/01/2023 Start: 03-02-2022 End: 03-01-2023 C reactive protein [Mass/volume] in Serum or Plasma C-REACTIVE PROTEIN (CRP) Lab Routine Severe protein-calorie malnutrition (HCC) Expected: 03/02/2022 (Approximate), Expires: 03/01/2023 [facility] Work Phone: Comment on above: Expected: 03/02/2022 (Approximate), Expires: 03/01/2023 Start: 03-02-2022 End: 03-01-2023 CBC W Auto Differential panel - Blood CBC + DIFF Lab Routine Severe protein-calorie malnutrition (HCC) Expected: 03/02/2022 (Approximate), Expires: 03/01/2023 [facility] Work Phone: Comment on above: Expected: 03/02/2022 (Approximate), Expires: 03/01/2023 Start: 03-02-2022 End: 03-01-2023 Cobalamin (Vitamin B12) [Mass/volume] in Serum or Plasma VITAMIN B12 BLOOD Lab Routine Severe protein-calorie malnutrition (HCC) Expected: 03/02/2022 (Approximate), Expires: 03/01/2023 [facility] Work Phone: Comment on above: Expected: 03/02/2022 (Approximate), Expires: 03/01/2023 Start: 03-02-2022 End: 03-01-2023 Comprehensive metabolic 2000 panel - Serum or Plasma COMP METABOLIC PANEL Lab Routine Severe protein-calorie malnutrition (HCC) Expected: 03/02/2022 (Approximate), Expires: 03/01/2023 [facility] Work Phone: Comment on above: Expected: 03/02/2022 (Approximate), Expires: 03/01/2023 Start: 03-02-2022 End: 03-01-2023 COPPER BLOOD COPPER BLOOD Lab Routine Severe protein-calorie malnutrition (HCC) Expected: 03/02/2022 (Approximate), Expires: 03/01/2023 [facility] Work Phone: Comment on above: Expected: 03/02/2022 (Approximate), Expires: 03/01/2023 Start: 03-02-2022 End: 03-01-2023 FATTY ACIDS PROFILE, ESSENTIAL FATTY ACIDS PROFILE, ESSENTIAL Lab Routine Severe protein-calorie malnutrition (HCC) Expected: 03/02/2022 (Approximate), Expires: 03/01/2023 [facility] Work Phone: Comment on above: Expected: 03/02/2022 (Approximate), Expires: 03/01/2023 Start: 03-02-2022 End: 03-01-2023 Ferritin [Mass/volume] in Serum or Plasma FERRITIN BLD Lab Routine Severe protein-calorie malnutrition (HCC) Expected: 03/02/2022 (Approximate), Expires: 03/01/2023 [facility] Work Phone: Comment on above: Expected: 03/02/2022 (Approximate), Expires: 03/01/2023 Start: 03-02-2022 End: 03-01-2023 Iron and Iron binding capacity panel - Serum or Plasma IRON + TIBC Lab Routine Severe protein-calorie malnutrition (HCC) Expected: 03/02/2022 (Approximate), Expires: 03/01/2023 [facility] Work Phone: Comment on above: Expected: 03/02/2022 (Approximate), Expires: 03/01/2023 Start: 03-02-2022 End: 03-01-2023 Magnesium [Mass/volume] in Serum or Plasma MAGNESIUM BLD Lab Routine Severe protein-calorie malnutrition (HCC) Expected: 03/02/2022 (Approximate), Expires: 03/01/2023 [facility] Work Phone: Comment on above: Expected: 03/02/2022 (Approximate), Expires: 03/01/2023 Start: 03-02-2022 End: 03-01-2023 Methylmalonate [Moles/volume] in Serum or Plasma METHYLMALONIC ACID Lab Routine Severe protein-calorie malnutrition (HCC) Expected: 03/02/2022 (Approximate), Expires: 03/01/2023 [facility] Work Phone: Comment on above: Expected: 03/02/2022 (Approximate), Expires: 03/01/2023 Start: 03-02-2022 End: 03-01-2023 Phosphate [Mass/volume] in Serum or Plasma PHOSPHORUS INORGANIC Lab Routine Severe protein-calorie malnutrition (HCC) Expected: 03/02/2022 (Approximate), Expires: 03/01/2023 [facility] Work Phone: Comment on above: Expected: 03/02/2022 (Approximate), Expires: 03/01/2023 Start: 03-02-2022 End: 03-01-2023 PT panel - Platelet poor plasma by Coagulation assay PROTHROMBIN TIME/PT Lab Routine Severe protein-calorie malnutrition (HCC) Expected: 03/02/2022 (Approximate), Expires: 03/01/2023 [facility] Work Phone: Comment on above: Expected: 03/02/2022 (Approximate), Expires: 03/01/2023 Start: 03-02-2022 End: 03-01-2023 RBC FOLATE RBC FOLATE Lab Routine Severe protein-calorie malnutrition (HCC) Expected: 03/02/2022 (Approximate), Expires: 03/01/2023 [facility] Work Phone: Comment on above: Expected: 03/02/2022 (Approximate), Expires: 03/01/2023 Start: 03-02-2022 End: 03-01-2023 Retinol [Mass/volume] in Serum or Plasma VITAMIN A/RETINOL Lab Routine Severe protein-calorie malnutrition (HCC) Expected: 03/02/2022 (Approximate), Expires: 03/01/2023 [facility] Work Phone: Comment on above: Expected: 03/02/2022 (Approximate), Expires: 03/01/2023 Start: 03-02-2022 End: 03-01-2023 Selenium [Mass/volume] in Blood SELENIUM BLOOD Lab Routine Severe protein-calorie malnutrition (HCC) Expected: 03/02/2022 (Approximate), Expires: 03/01/2023 [facility] Work Phone: Comment on above: Expected: 03/02/2022 (Approximate), Expires: 03/01/2023 Start: 03-02-2022 End: 03-01-2023 Triglyceride [Mass/volume] in Serum or Plasma TRIGLYCERIDES BLD Lab Routine Severe protein-calorie malnutrition (HCC) Expected: 03/02/2022 (Approximate), Expires: 03/01/2023 [facility] Work Phone: Comment on above: Expected: 03/02/2022 (Approximate), Expires: 03/01/2023 Start: 03-02-2022 End: 03-01-2023 Zinc [Mass/volume] in Serum or Plasma ZINC BLD Lab Routine Severe protein-calorie malnutrition (HCC) Expected: 03/02/2022 (Approximate), Expires: 03/01/2023 [facility] Work Phone: Comment on above: Expected: 03/02/2022 (Approximate), Expires: 03/01/2023 Start: 12-19-2021 End: 12-19-2021 Patient encounter procedure 12/19/2021 Office Visit Psychiatry Robb Evans MD [address] [place] [id number] [facility] Start: 11-16-2021 Influenza vaccination [facility] Start: 09-19-2021 End: 09-19-2021 Patient encounter procedure 09/19/2021 Office Visit Psychiatry Robb Evans MD [address] [place] [phone] [facility] Start: 09-15-2021 End: 09-15-2021 Patient encounter procedure 09/15/2021 Office Visit Psychiatry Robb Evans MD [address] [facility] [address] [place] [phone] [facility] Start: 05-30-2021 End: 05-30-2021 Patient encounter procedure 05/30/2021 Office Visit Robb aPtton MD [address] [facility] [address] [place] [phone] [facility] Start: 03-18-2021 DEPRESSION ASSESSMENT DEPRESSION ASS ESSMENT [facility] Start: 02-17-2021 End: 02-17-2021 Patient encounter procedure 02/17/2021 Office Visit Psychiatry Robb Evans MD [address] [facility] [address] [place] [id number] [facility] Start: 02-03-2021 End: 02-03-2021 Patient encounter procedure 02/03/2021 Office Visit Psychiatry Robb Evans MD [address] [facility] [address] [place] [id number] [facility] Start: 11-16-2020 Influenza vaccination [facility] Start: 10-28-2020 End: 10-28-2020 Patient encounter procedure 10/28/2020 Office Visit Psychiatry Robb Evans MD [address] [facility] [address] [place] [id number] [phone] [facility] Start: 2020 Administration of he rpes zoster vaccine Zoster Vaccines (1 of 2) [facility] Start: 2020 Screening for malign ant neoplasm of colon [facility] Start: 2020 SHINGRIX VACCINE (1 of 2) SHINGRIX VACCINE (1 of 2) [facility] Start: 08-22-2020 End: 08-22-2020 Telemedicine consultation with patient 08/22/2020 Telemedicine Psychiatry Robb Evans MD [address] [facility] [address] [place] [id number] [phone] [facility] Start: 10-07-2015 COLOGUARD (FIT-DNA) COLOGUARD (FIT-D NA) [facility] Start: 10-07-2015 Colonoscopy COLONOSCOPY [facility] Start: 10-07-2015 COLORECTAL CANCER SCREENING COLORECTAL CANCER SCREENING [facility] Start: 10-07-[address] COLONOGRAPHY [facility] Start: 10-07-2015 DIABETES SCREEN DIABETES SCREEN [facility] Start: 10-07-2015 FECAL OCCULT BLOOD FECAL OCCULT BLOO D [facility] Start: 10-07-2015 LIPID SCREEN LIPID SCREEN [facility] Start: 10-07-2015 SIGMOIDOSCOPY SIGMOIDOSCOPY [facility] Start: 01-02-2015 PAP TESTING PAP TESTING [facility] Start: 2010 Mammography MAMMOGRAM [facility] Start: 2010 Screening for malign ant neoplasm of breast Mammogram [facility] Start: 2010 Screening mammography Mammogram [facility] Start: 2000 HPV TESTING HPV TESTING [facility] Start: 1989 Urine microalbumin profile DTAP,TDAP,TD (1 - Tdap) [facility] Start: 1988 Hepatitis C screening Hepatitis C Sc reening [facility] Start: 1988 HIV SCREENING HIV SCREENING [facility] Start: 1986 COVID-19 Vaccine (1) COVID-19 Vaccin e (1) [facility] Start: 1985 HIV screening HIV Screening [facility] Start: 1982 COVID-19 Vaccine (1) COVID-19 Vaccin e (1) [facility] Start: 1976 PNEUMOCOCCAL (1 - PCV) PNEUMOCOCCAL (1 - PCV) [facility] Start: 1976 Pneumococcal Vaccine : Ped or At-Risk (1 - PCV) Pneumococcal Vaccine: Ped or At-Risk (1 - PCV) [facility] Start: 1976 Pneumococcal Vaccine : Ped or At-Risk (1 of 2 - PPSV23) Pneumococcal Vaccine: Ped or At-Risk (1 of 2 - PPSV23) [facility] Start: 1976 Pneumococcal Vaccine : Ped or At-Risk (1 of 4 - PCV13) Pneumococcal Vaccine: Ped or At-Risk (1 of 4 - PCV13) [facility] Start: 10-07-1975 COVID-19 Vaccine (1) COVID-19 Vaccin e (1) [facility] Start: 1973 History and physical examination, annual for health maintenance Wellness Visit [facility] Start: 04-08-1971 COVID-19 Vaccine (#1) COVID-19 Vacci ne (#1) [facility] Start: 1970 HEPATITIS B (1 of 3 - 3-dose series) HEPATITIS B (1 of 3 - 3-dose series) [facility] Start: 1970 Screening for malign ant neoplasm of cervix Pap Smear [facility] Start: 1970 Screening for malign ant neoplasm of colon [facility] Start: 1970 Screening mammography Mammogram [facility] Start: 1970 Tetanus vaccination Tetanus: Every 1 0yrs [facility] End: 09-19-2022 Comprehensive metabolic 2000 panel - Serum or Plasma Comprehensive Metabolic Panel Lab Routine Generalized anxiety disorder Long-term use of high-risk medication Bipolar 1 disorder, mixed, mild (HCC) 1 Occurrences starting 09/19/2021 until 09/19/2022 [facility] Comment on above: 1 Occurrences starti ng 09/19/2021 until 09/19/2022 End: 04-01-2023 Ct abdomen & pelvis w/contrast material CT ENTEROGRAPHY W IVCON Radiology Routine 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) Weight loss 1 Occurrences starting 03/02/2022 until 04/01/2023 [facility] Work Phone: Comment on above: 1 Occurrences starti ng 03/02/2022 until 04/01/2023 End: 12-15-2022 EGD DIAGNOSTIC EGD DIAGNOSTIC Endoscopy Routine Nausea and vomiting, unspecified vomiting type Left upper quadrant abdominal pain 1 Occurrences starting 12/15/2021 until 12/15/2022 [facility] Work Phone: Comment on above: 1 Occurrences starti ng 12/15/2021 until 12/15/2022 End: 03-02-2023 ENTEROSCOPY ENTEROSCOPY Endoscopy Routine 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) 1 Occurrences starting 03/02/2022 until 03/02/2023 [facility] Work Phone: Comment on above: 1 Occurrences starti ng 03/02/2022 until 03/02/2023 FAT, FECAL QUAL FAT, FECAL QUAL Lab Routine Weight loss Ordered: 01/05/2022 [facility] Work Phone: Comment on above: Ordered: 01/05/2022 End: 02-04-2023 Gastric emptying imaging study NM GASTRIC EMPTYING SOLID Radiology Routine Nausea 1 Occurrences starting 01/05/2022 until 02/04/2023 [facility] Work Phone: Comment on above: 1 Occurrences starti ng 01/05/2022 until 02/04/2023 End: 01-05-2023 Gi imag intraluminal esophagus-ileum w/i&r CAPSULE ENDOSCOPY SMALL BOWEL Endoscopy Routine Small bowel polyp 1 Occurrences starting 01/05/2022 until 01/05/2023 [facility] Work Phone: Comment on above: 1 Occurrences starti ng 01/05/2022 until 01/05/2023 End: 09-19-2022 Lipid 1996 panel - Serum or Plasma Lipid Panel Lab Routine Generalized anxiety disorder Long-term use of high-risk medication Bipolar 1 disorder, mixed, mild (HCC) 1 Occurrences starting 09/19/2021 until 09/19/2022 [facility] Comment on above: 1 Occurrences starti ng 09/19/2021 until 09/19/2022 PANC ELASTASE, FECAL PANC ELASTA SE, FECAL Lab Routine Weight loss Ordered: 01/05/2022 [facility] Work Phone: Comment on above: Ordered: 01/05/2022 End: 09-19-2022 Prolactin [Mass/volume] in Serum or Plasma Prolactin Lab Routine Generalized anxiety disorder Long-term use of high-risk medication Bipolar 1 disorder, mixed, mild (HCC) 1 Occurrences starting 09/19/2021 until 09/19/2022 [facility] Work Phone: Comment on above: 1 Occurrences starti ng 09/19/2021 until 09/19/2022 End: 04-01-2023 Radiologic exam chest 2 views XR CHEST 2V FRONTAL/LAT Radiology Routine Weight loss 1 Occurrences starting 03/02/2022 until 04/01/2023 [facility] Work Phone: Comment on above: 1 Occurrences starti ng 03/02/2022 until 04/01/2023 SURGICAL PATHOLOGY [facility] Work Phone: Comment on above: Release Upon Orderin g for 1 Occurrences starting 01/01/2022, 1 completed SURGICAL PATHOLOGY [facility] Work Phone: Comment on above: Release Upon Orderin g for 1 Occurrences starting 04/04/2022, 1 completed [facility] Immunizations Immunization Date Immunization Notes Care Provider Dany ordoñez 10-10-2022 tetanus toxoid, reduced diphtheria toxoid, and acellular pertussis vaccine, adsorbed Sandoval Rae [facility] [place] NEGATED: Highlighted row has not occurred!01-16-2024 influenza virus vaccine, unspecified formulation Sandoval Rae [facility] NEGATED: Highlighted row has not occurred!05-24-2020 influenza virus vaccine, unspecified formulation José Luis Resendiz [facility] Payers Date Payer Category Payer Medicaid [id number] 2017 Medicaid [id number] 1970 Unknown [id number] 2.16.8 [id number] 1970 Unknown [id number] 2.16.8 [id number] 1970 Unknown [id number] 2.16. [id number] 1970 Unknown [id number] 2.16. [id number] 1970 Unknown [id number] 2.16. [id number] 1970 Unknown [id number] 2.16. [id number] 1970 Unknown [id number] 2.16.84 0.1.877990.3.579.2.593 1970 Unknown [id number] 2.16.84 0.1.715574.3.579.2.593 1970 Unknown [id number] 2.16.84 0.1.468719.3.579.2.593 1970 Unknown [id number] 2.16.84 0.1.481014.3.579.2.593 1970 Unknown [id number] 2.16.84 0.1.190122.3.579.2.593 1970 Unknown [id number] 2.16.84 0.1.106997.3.579.2.593 1970 Unknown [id number] 2.16.84 0.1.515257.3.579.2.593 1970 Unknown [id number] 2.16.84 0.1.140202.3.579.2.593 1970 Unknown [id number] 2.16.8 40.1.926930.3.579.2.727 1970 Unknown [id number] 2.16.8 40.1.929374.3.579.2.727 1970 Unknown [id number] .16.8 [id number] 1970 Unknown [id number] 2.16.8 [id number] 1959 Unknown [id number] 1959 Unknown [id number] Social History Date Type Detail Facility Start: 07-18-2020 End: 01-01-2022 Tobacco smoking status NHIS Current every day smoker [facility] Start: 07-18-2020 End: 01-01-2022 Tobacco use and exposure Never used [facility] Start: 07-18-2020 End: 04-04-2022 Alcohol intake Ex-drinker (finding) [facility] Start: 1970 Sex Assigned At Not on file [facility] Start: 09-09-2021 End: 02-05-2022 Exposure to SARS-CoV-2 (event) Not sure [facility] Start: 12-03-2021 End: 12-14-2021 Exposure to SARS-CoV-2 (event) Unable to assess [facility] Start: 06-10-2021 End: 06-20-2021 Exposure to SARS-CoV-2 (event) Yes [facility] Tobacco smoking stat [facility] Tobacco smoking consumption unknown [facility] Start: 1970 [facility] History of tobacco use [facility] Start: 01-01-2022 Cigarettes smoked current (pack per day) - Reported 0.5 [facility] History of tobacco use Passive smoker [facility] Start: 09-24-2023 Tobacco smoking status Ex-smoker (fi nding) [facility] Comment on above: quit smoking 2023 Sex Assigned At Female [facility] Start: 01-16-2024 Tobacco smoking status Light t obacco smoker (finding) [facility] Tobacco smoking status Never [facility] Functional Status Date Assessment Result Facility 01-16-2024 Functional Status N/A [facility] 09-24-2023 Functional Status N/A [facility] Clinical Notes 07-20-2020 to 11-26-2023 LaboratoryRadiologyTelephone Encounter - Eva Chong - 05/08/2022 10:40 AM Estrella Morales MD - 04/24/2022 8:06 AM ESTTelephone Encounter - Eva Chong - 04/05/2022 9:29 AM ESTLaboratory Note Date & Type Note Facility 11-26-2023 Evaluation + Plan note Future Scheduled TestsGiardia lamblia, Direct Detection EIA 11/26/23O & P Exam, Routine 11/26/23Rotavirus Ab 11/26/23Clostridium Difficile PCR 11/26/23XR Small Bowel w/ Serial Films 02/10/24 [facility] 09-24-2023 Hospital Discharg e instructions Patient Education 09/24/2023 15:42:11 Urinary Tract Infection, Adult Urinary Tract Infection, Adult A urinary tract infection (UTI) is an infection of any part of the urinary tract. The urinary tract includes the kidneys, ureters, bladder, and urethra. These organs make, store, and get rid of urine in the body. An upper UTI affects the ureters and kidneys. A lower UTI affects the bladder and urethra. What are the causes? Most urinary tract infections are caused by bacteria in your genital area around your urethra, where urine leaves your body. These bacteria grow and cause inflammation of your urinary tract. What increases the risk? You are more likely to develop this condition if: You have a urinary catheter that stays in place. You are not able to control when you urinate or have a bowel movement (incontinence). You are female and you: ?Use a spermicide or diaphragm for control. ?Have low estrogen levels. ?Are . You have certain genes that increase your risk. You are sexually active. You take antibiotic medicines. You have a condition that causes your flow of urine to slow down, such as: ?An enlarged prostate, if you are male. ?Blockage in your urethra. ?A kidney stone. ?A nerve condition that affects your bladder control (neurogenic bladder). ?Not getting enough to drink, or not urinating often. You have certain medical conditions, such as: ?Diabetes. ?A weak disease-fighting system (immunesystem). ?Sickle cell disease. ?Gout. ?Spinal cord injury. What are the signs or symptoms? Symptoms of this condition include: Needing to urinate right away (urgency). Frequent urination. This may include small amounts of urine each time you urinate. Pain or burning with urination. Blood in the urine. Urine that smells bad or unusual. Trouble urinating. Cloudy urine. Vaginal discharge, if you are female. Pain in the abdomen or the lower back. You may also have: Vomiting or a decreased appetite. Confusion. Irritability or tiredness. A fever or chills. Diarrhea. The first symptom in older adults may be confusion. In some cases, they may not have any symptoms until the infection has worsened. How is this diagnosed? This condition is diagnosed based on your medical history and a physical exam. You may also have other tests, including: Urine tests. Blood tests. Tests for STIs (sexually transmitted infections). If you have had more than one UTI, a cystoscopy or imaging studies may be done to determine the cause of the infections. How is this treated? Treatment for this condition includes: Antibiotic medicine. Pvxh-had-mwqwnvr medicines to treat discomfort. Drinking enough water to stay hydrated. If you have frequent infections or have other conditions such as a kidney stone, you may need to see a health care provider who specializes in the urinary tract (urologist). In rare cases, urinary tract infections can cause sepsis. Sepsis is a life-threatening condition that occurs when the body responds to an infection. Sepsis is treated in the hospital with IV antibiotics, fluids, and other medicines. Follow these instructions at home: Medicines Take mohj-ipx-ptpsuvt and prescription medicines only as told by your health care provider. If you were prescribed an antibiotic medicine, take it as told by your health care provider. Do not stop using the antibiotic even if you start to feel better. General instructions Make sure you: ?Empty your bladder often and completely. Do not hold urine for long periods of time. ?Empty your bladder after sex. ?Wipe from front to back after urinating or having a bowel movement if you are female. Use each tissue only one time when you wipe. Drink enough fluid to keep your urine pale yellow. Keep all follow-up visits. This is important. Contact a health care provider if: Your symptoms do not get better after 1 2 days. Your symptoms go away and then return. Get help right away if: You have severe pain in your back or your lower abdomen. You have a fever or chills. You have nausea or vomiting. Summary A urinary tract infection (UTI) is an infection of any part of the urinary tract, which includes the kidneys, ureters, bladder, and urethra. Most urinary tract infections are caused by bacteria in your genital area. Treatment for this condition often includes antibiotic medicines. If you were prescribed an antibiotic medicine, take it as told by your health care provider. Do not stop using the antibiotic even if you start to feel better. Keep all follow-up visits. This is important. This information is not intended to replace advice given to you by your health care provider. Make sure you discuss any questions you have with your health care provider. Document Revised: 10/14/2020 Document Reviewed: 10/14/2020 [employer] Patient Education 2022 Aras. Follow Up Care 09/24/2023 12:53:04 With:CHANCE SERRANO Address: [address] [place] [phone] Business (1) When:09/27/2023 15:19:10 [facility] 09-24-2023 Evaluation + Plan note Diagnostic Tests PendingUrine Culture 09/24/23 [facility] 05-08-2022 Miscellaneous Notes 05/08/22 Patient calling to see if Dr Morales will write her a script for Zofran nausea medication strips. [phone] Eva documented in this encounter [facility] 04-24-2022 Note HNO ID: [id number] Author: Tiffani Morales MD Service: ? Author [...] Tiffani Morales MD 04/24/2022 11:19 AM Staff Transmission Builder, Digestive Disease AND Surgery [place] PRIMARY PROBLEM: small bowel tumor, severe malnutrition [...] clips were successfully placed (MR conditional). Clip tie loader: [employer]. There was no bleeding at the end [...] physical examination, documentation, and co-ordination of care. [facility] 04-24-2022 History of Presen t illness Narrative [...] Tiffani Morales MD 04/24/2022 11:19 AM Staff Transmission Builder, Digestive Disease & Surgery [place] PRIMARY PROBLEM: small bowel tumor, severe malnutrition [...] clips were successfully placed (MR conditional). Clip tie loader: [employer]. There was no bleeding at the end [...] co-ordination of care. documented in this encounter [facility] 04-05-2022 Miscellaneous Notes 04/05/22 Patient wants tow know if y script you can send her script for ZOFRAN, under the tongue tablets. For nausea. Eva documented in this encounter [facility] 04-04-2022 Note HNO ID: [id number] Author: Frederick Chaves APRN.[employer] Service: ? Author Type: Nurse Patch Worker Type: Anesthesia Procedure Notes Filed: 04/04/2022 1:55 PM Note Text: ANESTHESIOLOGY PROCEDURE NOTE Airway General Information Procedure Start Time/Medication Administration: 04/04/2022 1:38 PM Patient location during procedure: OR Timeout Performed Pre-procedure: timeout performed Consent Obtained: Yes Patient identity confirmed: arm band Staffing [employer]: Frederick Chaves APRN.[employer] Performed by: GORGE Indications and Patient Condition Indications for airway management: anesthesia Preoxygenated: yes anesthesia circuit Patient position: sniffing Method: asleep Cricoid Pressure: No Difficult Mask: No Final Airway Details Final airway type: endotracheal airway Final Endotracheal Airway: ETT Cuffed: yes Successful intubation technique: video laryngoscopy Devices used: Implanet Endotracheal tube insertion site: oral Blade: [place] Blade size: #3 ETT size (mm): 7.0 Measured from: lips Measurement (cm): 21 Placement verified by: capnometry Cormack-Lehane Classification: grade I - full view of glottis Number of attempts at approach: 1 Airway not difficult SIGNATURE: Frederick Chaves APRN.CRNA PATIENT NAME: Sai Pineda DATE: April 04, 2022 TIME: 1:54 PM CSN: [id number] [facility] 04-04-2022 Note HNO ID: [id number] Author: Frederick Chaves APRN.[employer] Service: ? Author Type: Nurse Patch Worker Type: Anesthesia Procedure Notes Filed: 04/04/2022 1:51 PM Note Text: ANESTHESIOLOGY PROCEDURE NOTE PIV General Information Procedure Start Time/Medication Administration: 04/04/2022 1:26 PM Patient Location: OR Staffing [employer]: Frederick Chaves APRN.[employer] Performed by: GORGE Preparation Sterility Preparation: hand [...] April 04, 2022 TIME: 1:49 PM CSN: [id number] [facility] 04-04-2022 Nurse Note AMBULATORY PATIENT EDUCATION NOTE [...] LIMITATIONS AFFECTING LEARNING: None Electronically Signed By: iRma Kirk RN In Department: GASTROENTEROLOGY documented in this encounter [facility] 04-04-2022 Note Q3 Patient Name: Sai [...] clips were successfully placed (MR conditional). Clip tie loader: [employer]. There was no bleeding at the end of the maneuver. Exam of the jejunum was otherwise normal. Impression: - Atrophic mucosa. - Jejunal polyp(s). Resected and retrieved. Tattooed. Clips (MR conditional) were placed. Clip tie loader: [employer]. Estimated Blood Loss: Estimated blood loss was minimal. Recommendation: - Await pathology results. - Resume previous diet. - Continue present medications. - Return to endoscopist at the next available appointment. 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 All rights reserved. Attending Participation: I was present and participated during the entire procedure, including non-morrison portions. Scope In: 1:44:30 PM Scope Out: 3:07:42 PM MD Tiffani Camargo MD 04/04/2022 3:21:50 PM This report has been signed electronically by Tiffani Morales MD Number of Addenda: 0 (more content not included)... [facility] 04-04-2022 History and physical note GI PROCEDURAL [...] 04/04/2022 TIME: 1302 documented in this encounter [facility] 03-28-2022 Miscellaneous Notes Attempted to reach the patient at the contact number that they provided [phone] (home) . Unable to speak with patient so without identifying the patient the following information was left on their voice mail: Date of procedure, location and report time A message was left informing the patient/patient guest service representative they must have a responsible adult [...] Number to call with questions or concerns [phone] Number to call to cancel their procedure [phone] Eduardo Harrington RN documented in this encounter [facility] 03-13-2022 Note Addended by: ROBB EVANS on: 03/13/2022 03:44 PM Modules accepted: Orders [facility] 03-13-2022 Miscellaneous Notes Addended by: ROBB EVANS on: 03/13/2022 03:44 PM Modules accepted: Orders Addended by: GOKUL MONTOYA on: 03/13/2022 03:37 PM Modules accepted: Orders documented in this encounter [facility] 03-13-2022 Note Addended by: GOKUL MONTOYA on: 03/13/2022 03:37 PM Modules accepted: Orders [facility] 03-13-2022 Note Addended by: GOKUL MONTOYA on: 03/13/2022 03:37 PM Modules accepted: Orders [facility] 03-13-2022 Miscellaneous Notes Addended by: GOKUL MONTOYA on: 03/13/2022 03:37 PM Modules accepted: Orders documented in this encounter [facility] 03-01-2022 Note HNO ID: [id number] Author: Tiffani Morales MD Service: ? Author [...] Tiffani Morales MD 03/01/2022 11:19 AM Staff Transmission Builder, Digestive Disease AND Surgery [place] PRIMARY PROBLEM: small bowel tumor, severe malnutrition [...] physical examination, documentation, and co-ordination of care. [facility] 03-01-2022 History of Presen t illness Narrative [...] Tiffani Morales MD 03/01/2022 11:19 AM Staff Transmission Builder, Digestive Disease & Surgery [place] PRIMARY PROBLEM: small bowel tumor, severe malnutrition [...] co-ordination of care. documented in this encounter [facility] 02-16-2022 Note HNO ID: [id number] Author: Anastasiya Mosqueda PA-C Service: ? Author Type: Physician Mail Teller Type: Progress Notes Filed: 02/16/2022 5:07 PM Note Text: Orders placed [facility] 02-05-2022 Note HNO ID: [id number] Author: PHILLIP Jung) Service: Nuclear Medicine Author Type: Technologist Type: [...] 08:15 PATIENT DISCHARGED TO: Ambulatory patient, left DC department area. A Diagnostic radioactive procedure has taken place, with no further precautions necessary other than routine body substance precautions. More information regarding radiation safety can be found using this link: [email or web address] SIGNATURE: RT Fabiana(Liam) PATIENT NAME: Sai Pineda DATE: February 05, 2022 TIME: 10:16 AM PAGER/CONTACT #: [facility] 01-29-2022 Note HNO ID: [id number] Author: Dolores Lopez RN Service: ? Author Type: Registered Nurse Type: Progress Notes Filed: 02/01/2022 4:29 PM Note Text: Summary: capsule endoscopy small bowel Capsule endoscopy small bowel ingested without difficulty @ 1300 on 01-29-2022. Therese Lopez RN [id number] [facility] PTF G [id number] Capsule Endoscopy Post Ingestion Patient Information Do [...] cell phones, computers, remote TV appliances, microwaves, Vendly players and digital cameras. Because the capsule endoscopy equipment is somewhat ominous in appearance, we recommend you avoid the airport, [employer] and [employer] buildings. Many museums use a similar technology [...] the box for return to the main gunlock. Place the box in the closest UPS [...] During routine business hours you may call: HERÁNN Salvador RN [phone] After Business hours: [phone] and ask for [facility] History of Presen t illness Narrative Summary: capsule endoscopy small bowel Capsule endoscopy small bowel ingested without difficulty @ 1300 on 01-29-2022. Therese Lopez RN [id number] [facility] PTF G [id number] Capsule Endoscopy Post Ingestion Patient Information Do [...] cell phones, computers, remote TV appliances, microwaves, MP3 players and digital cameras. Because the capsule endoscopy equipment is somewhat ominous in appearance, we recommend you avoid the airport, [employer] and [employer] buildings. Many [employer] use a similar technology for security, it [...] the box for return to the main gunlock. Place the box in the closest UPS [...] hours you may call: HERNÁN Salvador RN [phone] After Business hours: [phone] and ask for GI Jgjggl-Ex-Shg documented in this encounter [facility] 01-05-2022 Miscellaneous Notes Phone note F/U [...] MD 01-05-2022 17:51 documented in this encounter [facility] 01-05-2022 Note HNO ID: [id number] Author: Anastasiya Mosqueda PA-C Service: ? Author Type: Physician Mail Teller Type: Progress Notes Filed: 01/05/2022 2:24 PM Note Text: Per discussion with SUZANNE Estrada, Small bowel capsule study, Fecal fat qual and pancreatic elastase stool studies orders placed. Discussed plan with patient. Anastasiya Mosqueda PA-C [facility] 01-05-2022 History of Presen t illness Narrative Per discussion with SUZANNE Estrada, Small bowel capsule study, Fecal fat qual and pancreatic elastase stool studies orders placed. Discussed plan with patient. Anastasiya Mosqueda PA-C documented in this encounter [facility] 01-05-2022 Miscellaneous Notes Patient with continued [...] Anastasiya Mosqueda PA-C documented in this encounter [facility] 01-03-2022 Miscellaneous Notes EGD results discussed with patient as requested, pathology still pending. Will reach out to patient once resulted. Red flags for in person care discussed. Anastasiya Mosqueda PA-C documented in this encounter [facility] 01-02-2022 Miscellaneous Notes Patient called to get results from her procedure. Please contact her at number listed in system. Thanks Leydi Henry Workleader documented in this encounter [facility] 01-01-2022 Nurse Note AMBULATORY PATIENT EDUCATION [...] In Department: GASTROENTEROLOGY documented in this encounter [facility] 01-01-2022 History and physical note GI [...] 01/01/2022 TIME: 1600 documented in this encounter [facility] 12-25-2021 Miscellaneous Notes Patient scheduled incorrectly. Anesthesia not supposed to have 430 case. I called patient to see if they can come in early. She said she would call me back Rima Gerard RN documented in this encounter [facility] 12-15-2021 Note HNO ID: [id number] Author: Anastasiya Mosqueda PA-C Service: ? Author Type: Physician Mail Teller Type: Progress Notes Filed: 12/15/2021 4:32 PM Note Text: VIRTUAL VISIT NEW PATIENT NAME: Sai Pindea [facility] NO: [id number] DATE: 12/15/2021 REASON FOR VISIT Sai Guerrero [id number] 1970 has requested a video telemedicine initial [...] rigidity Assessment IMPRESSION (more content not included)... [facility] 12-15-2021 History of Presen t illness Narrative VIRTUAL VISIT [id number] DATE: 12/15/2021 REASON FOR VISIT Saiseverino Guerrero [id number] 1970 has requested a video telemedicine initial [...] addition, described as a sharp/aching rating it 10/25. Has lost 15 pounds since onset of [...] 2021 11:51 AM documented in this encounter [facility] 12-14-2021 Note HNO ID: [id number] Author: Anastasiya Mosqueda PA-C Service: ? Author Type: Physician Mail Teller Type: Progress Notes Filed: 12/14/2021 3:51 PM Note Text: Unable to connect to VV, called multiple times and left multiple VM's. Patient rescheduled for tomorrow. [facility] 12-14-2021 History of Presen t illness Narrative Unable to connect to VV, called multiple times and left multiple VM's. Patient rescheduled for tomorrow. documented in this encounter [facility] 12-13-2021 Miscellaneous Notes Spoke to patient's daughter - she will contact the [employer] support line to assist with setting up patient's Mychart & assist with set up for virtual visit tomorrow morning Elizabeth Ricci Received a call from patient's health agency concerning virtual visit set up with you today at 11 - Patient has not registered for [employer] (having trouble accessing her email) & they want to know if you will do a phone visit instead Was told this was an urgent request from the referring doctor's office - the visit was scheduled thru the Referring Physician office There are no records found for this patient & I attempted to pull records thru Care Everywhere Patient's phone [phone] Elizabeth Ricci documented in this encounter [facility] 09-27-2021 History of Presen t illness Narrative Prolactin Level Elevated at 146. Will add Abilify 5 mg daily to address that. Pt informed. Pt is denying breast tenderness or documented in this encounter [facility] 09-19-2021 History of Presen t illness Narrative BEHAVIORAL HEALTH PSYCHIATRIC PROGRESS NOTE Reason for visit: Psychotropic medication management 09/19/2021 Patient is seen alone in his office for psychotropic medication management. Patient reported they are moving to a new residence, in [place] same place they have been living in. [...] none Robb Evans documented in this encounter [facility] 06-20-2021 History of Presen t illness Narrative [...] none Robb Evans documented in this encounter [facility] 03-01-2021 History of Presen t illness Narrative Telephone Visit Via Phone Call [facility] [address] (11) [facility] [address] [facility] [phone] Telephone Visit [facility] 03/01/2021 Robb Evans MD Provider Location: [facility] Patient Location Seed Cutter: None Patient Location: Patient's Home Patient: Sai [...] there are inherent diagnostic limitations compared to eabc-cl-vqit evaluations. 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 She is not withdrawn or isolated. Denies [...] Plan of Care. documented in this encounter [facility] 08-22-2020 History of Presen t illness Narrative Telephone Visit Via Phone Call [facility] [phone] Telephone Visit [facility] 08/22/2020 Robb Evans MD Provider Location: [facility] Patient Location Seed Cutter: None Patient Location: Patient's Home Patient: Sai Pineda Date of : 1970 (49 y.o. female) PCP: Cristina Iqbal, KISHAN I discussed risks, benefits and alternatives of [...] there are inherent diagnostic limitations compared to fhtw-bp-ysev evaluations. We elected to proceed with the [...] Plan of Care. documented in this encounter [facility] 07-20-2020 History of Presen t illness Narrative BEHAVIORAL HEALTH PSYCHIATRIC ASSESSMENT DOS: 07/18/3020 Reason for visit: Psychotropic management follow-up. Patient is here to reestablish care at my new location HPI: Patient is seen in office alone. Patient was under my care for about a year at my old location in [facility]. Her working diagnosis is bipolar disorder type I, panic disorder with agoraphobia and PTSD. She has prior history of alcohol and cannabis abuse but has maintained sobriety for about last 1 year. Patient was seen here for reestablishing care at my new location in [facility]. Patient wants to continue her psychiatric management.. She had briefly seen a nurse practitioner in [place] after I left. Patient reported she she [...] PFSH: Past Medical History: Diagnosis Date Alcoholism (HCC), in remission Anxiety Bipolar disorder (HCC) Depression Drug abuse and dependence (HCC) in remission Panic disorder Psychosis (HCC) Social History Substance and Sexual Activity Alcohol [...] none Robb Evans documented in this encounter [facility] Evaluation + Plan note Future Appointments Appointment Date:01/27/2024 10:00:00 AM Scheduled Provider: Location[facility] Appointment Type:XR Esophagus/Upper GI/Small Bowel (FT) Future Scheduled TestsGiardia lamblia, Direct Detection EIA 11/26/23O & P Exam, Routine 11/26/23Rotavirus Ab 11/26/23Clostridium Difficile PCR 11/26/23XR Small Bowel w/ Serial Films 01/27/24 [facility] Digestive Health Evaluation note Diagnosis Generalized anxiety disorder- Primary Moderate mixed bipolar I disorder (HCC) Bipolar I disorder, most recent episode (or current) mixed, moderate Long-term use of high-risk medication [facility] Moderate mixed bipolar I disorder (HCC)- Primary Bipolar I disorder, most recent episode (or current) mixed, moderate Generalized anxiety disorder Long-term use of high-risk medication documented in this encounter [facility] note* Diagnosis Generalized anxiety disorder documented in this encounter [facility] note* Diagnosis Bipolar 1 disorder, mixed, mild (HCC)- Primary Generalized anxiety disorder Long-term use of high-risk medication documented in this encounter [facility] note* Diagnosis Generalized anxiety disorder- Primary Bipolar 1 disorder, mixed, mild (HCC) Long-term use of high-risk medication Post traumatic stress disorder (PTSD) documented in this encounter [facility] note* Diagnosis Bipolar 1 disorder, mixed, mild (HCC)- Primary Generalized anxiety disorder Long-term use of high-risk medication documented in this encounter [facility] note* Diagnosis APPOINTMENT CANCELLED- Primary documented in this encounter [facility] note* Diagnosis Nausea and vomiting, unspecified vomiting type- Primary Left upper quadrant abdominal pain Weight loss Loss of weight documented in this encounter [facility] note* Diagnosis Nausea and vomiting, unspecified vomiting type Left upper quadrant abdominal pain documented in this encounter [facility] note* Diagnosis Nausea- Primary Nausea alone Weight loss Loss of weight 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, jejunum, and ileum documented in this encounter [facility] note* Diagnosis Abdominal pain, unspecified abdominal location- Primary documented in this encounter [facility] note* Diagnosis Intestinal polyposis- Primary Benign neoplasm of colon documented in this encounter [facility] note* Diagnosis Severe protein-calorie malnutrition (HCC)- Primary Other severe protein-calorie malnutrition 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 Weight loss Loss of weight Severe malnutrition (HCC) 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 [facility] note* Diagnosis Generalized anxiety disorder documented in this encounter [facility] note* Diagnosis Generalized anxiety disorder documented in this encounter [facility] note* Diagnosis Generalized anxiety disorder documented in this encounter [facility] note* Diagnosis 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 documented in this encounter [facility] note* Diagnosis Generalized anxiety disorder documented in this encounter [facility] note* Diagnosis Severe malnutrition (HCC)- Primary 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 [facility] course Narrative No data available for this section [facility] No data available for this section [facility] Digestive Health Progress note No data available for this section [facility] Outpatient Procedure (Routine) - Closed Specialty Diagnoses / Procedures Referred By Shane titus Referred To Contact [facility] Diagnoses Nausea and vomiting, unspecified vomiting type Left upper quadrant abdominal pain Procedures EGD DIAGNOSTIC ESOPHAGOGASTRODUODENOSC OPY TRANSORAL DIAGNOSTIC Anastasiya Mosqueda PA-C [address] [place] [address] [facility] [address] [place] [address] Referral ID Status Reason Start Date Expiration Date V isits Requested Visits Authorized [id number] Closed Auto-Generate d Referral 12/15/2021 12/15/2022 1 1 [facility] for referral (narrative)* Outpatient Procedure (Routine) - Pending Review Specialty Diagnoses / Procedures Referred By Shane titus Referred To Contact [facility] [place] Diagnoses Small bowel polyp Procedures CAPSULE ENDOSCOPY SMALL BOWEL GI TRC IMG INTRALUMINAL ESOPHAGUS-ILEUM W/I&R Anastasiya Mosqueda PA-C [address] [place] [address] [facility] [address] [place] [address] Referral ID Status Reason Start Date Expiration Date Visits Requested Visits Authorized [id number] Pending Review Auto-Generat ed Referral 2 01/05/2023 1 1 * Diagnostic Procedure Only (Routine) - Pending Review Specialty Diagnoses / Procedures Referred By Shane titus Referred To Contact MOLECULAR & FUNCTIONAL IMAGING Diagnoses Nausea Procedures NM GASTRIC EMPTYING SOLID GASTRIC EMPTYING STUDY Anastasiya Mosqueda PA-C [address] [place] [address] Molecular & Functional Imaging [address] [id number] Referral ID Status Reason Start Date Expiration Date Visits Requested Visits Authorized [id number] Pending Review Auto-Generat ed Referral 2 02/04/2023 1 1 [facility] for referral (narrative)* Outpatient Procedure (Routine) - Pending Review Specialty Diagnoses / Procedures Referred By Contac t Referred To Contact [facility] Diagnoses 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) Procedures ENTEROSCOPY ENDOSCOPY UPPER SMALL INTESTINE Tiffani Morales MD [address] [place] [address] [facility] Disease [address] [address] Referral ID Status Reason Start Date Expiration Date Visits Requested Visits Authorized [id number] Pending Review Auto-Generat ed Referral 2 03/02/2023 1 1 * MRI/CT (Routine) - Pending Review Specialty Diagnoses / Procedures Referred By Shane t Referred To Contact CT IMAGING Diagnoses 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) Weight loss Procedures CT ENTEROGRAPHY W IVCON CT ABD & PELVIS W/CONTRAST Tiffani Morales MD [address] [place] [address] Ct Imaging Referral ID Status Reason Start Date Expiration Date Visits Requested Visits Authorized [id number] Pending Review Auto-Generat ed Referral 2 04/01/2023 1 1 [facility] for referral (narrative)* Outpatient Procedure (Routine) - Closed Specialty Diagnoses / Procedures Referred By Shane t Referred To Contact [facility] Diagnoses 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) Procedures ENTEROSCOPY ENDOSCOPY UPPER SMALL INTESTINE Tiffani Morales MD [address] [place] [address] [id number] [place] [address] Referral ID Status Reason Start Date Expiration Date V isits Requested Visits Authorized [id number] Closed Auto-Generate d Referral 03/02/2022 03/02/2023 1 1 [facility] for visit Narrative* Outpatient Procedure (Routine) - Closed Specialty Diagnoses / Procedures Referred By Contac t Referred To Contact [facility] Diagnoses Nausea and vomiting, unspecified vomiting type Left upper quadrant abdominal pain Procedures EGD DIAGNOSTIC ESOPHAGOGASTRODUODENOSC OPY TRANSORAL DIAGNOSTIC Anastasiya Mosqueda PA-C [address] [place] [address] [phone] Referral ID Status Reason Start Date Expiration Date V isits Requested Visits Authorized [id number] Closed Auto-Generate d Referral 12/15/2021 12/15/2022 1 1 [facility] for visit Narrative* Outpatient Procedure (Routine) - Closed Specialty Diagnoses / Procedures Referred By Contac t Referred To Contact [facility] Diagnoses 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) Procedures ENTEROSCOPY ENDOSCOPY UPPER SMALL INTESTINE Tiffani Morales MD [address] [place] [address] [address] Referral ID Status Reason Start Date Expiration Date V isits Requested Visits Authorized [id number] Closed Auto-Generate d Referral 03/02/2022 03/02/2023 1 1 [facility] Advance Directives Documents on File Type Date Recorded 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 Advance Directives and Living Will Summary Purpose Family History No Family History Records FoundNo Family History Records FoundNo Family History Records FoundNo Family History Records Found No data available for this section No data available for this section No Family History Records Found No data available for this section Reason for Referral Specialty Diagnoses / Procedures Referred By Contac t Referred To Contact Nutrition Diagnoses Nausea and vomiting, unspecified vomiting type Weight loss Procedures CONSULT TO NUTRITION THERAPY OFFICE/OUTPATIENT NEW HIGH MDM 60-74 MINUTES Anastasiya Mosqueda PA-C [address] [place] [address] Referral ID Status Reason Start Date Expiration Date Visits Requested Visits Authorized [id number] Authorized PCP Requested Referral 12/15/2021 12/15/2022 1 1 Specialty Diagnoses / Procedures Referred By Shane titus Referred To Contact [facility] Diagnoses Nausea and vomiting, unspecified vomiting type Left upper quadrant abdominal pain Procedures EGD DIAGNOSTIC ESOPHAGOGASTRODUODENOSC OPY TRANSORAL DIAGNOSTIC Anastasiya Mosqueda PA-C [address] [place] [address] [facility] Disease [place] [phone] Referral ID Status Reason Start Date Expiration Date Visits Requested Visits Authorized [id number] Authorized Auto-Generat ed Referral 12/15/2021 12/15/2022 1 1 Medications Administered Section Inactive Administered Medications - up to 3 most recent administrations Medication Order MAR Action Action Date Dose Rate Site benzocaine 20% (TOPEX) TOPICAL, X (OR/PROCEDURE) PRN, Starting on Sat01/01/22 at 1606, Until Sat01/01/22 at 1606, Intraprocedure Given 01/01/2022 4:06 PM EDT 1 [place] NaCl 0.9% iv infusion 30 mL/hr, INTRAVENOUS, [...] Care Teams (unrecognized sec tion and content) Personnel Name: Lala Horner Address: Address: [address] [place] [phone] Casing Builder Relationship Specialty Start Date End Date Cristina Iqbal, SALES TRAINING COORDINATOR [address] [place] [address] PCP - General Nurse Practitioner 07/18/20 Casing Builder Relationship Specialty Start Date End Date [facility] SALES TRAINING COORDINATOR [address] [place] [address] PCP - General Nurse Practitioner 07/18/20 Casing Builder Relationship Specialty Start Date End Date Cristina Iqbal, SALES TRAINING COORDINATOR [address] [facility] [place] [address] PCP - General Nurse Practitioner 07/18/20 Casing Builder Relationship Specialty Start Date End Date Cristina Iqbal, SALES TRAINING COORDINATOR [address] [facility] [place] [address] PCP - General Nurse Practitioner 07/18/20 Casing Builder Relationship Specialty Start Date End Date Cristina Iqbal, SALES TRAINING COORDINATOR [address] [place] [address] PCP - General Nurse Practitioner 07/18/20 Casing Builder Relationship Specialty Start Date End Date Cristina Iqbal, SALES TRAINING COORDINATOR [address] [place] [address] PCP - General Family Medicine 10/15/12 Casing Builder Relationship Specialty Start Date End Date Cristina Iqbal SALES TRAINING COORDINATOR [address] [place] [address] PCP - General Family Medicine 10/15/12 Casing Builder Relationship Specialty Start Date End Date Cristina Iqbal, SALES TRAINING COORDINATOR [address] [place] [address] PCP - General Family Medicine 10/15/12 Casing Builder Relationship Specialty Start Date End Date Cristina Iqbal, SALES TRAINING COORDINATOR [address] [place] [address] PCP - General Family Medicine 10/15/12 Casing Builder Relationship Specialty Start Date End Date Cristina Iqbal, SALES TRAINING COORDINATOR [address] [place] [address] PCP - General Family Medicine 10/15/12 Casing Builder Relationship Specialty Start Date End Date Cristina Iqbal, SALES TRAINING COORDINATOR [address] [place] [address] PCP - General Family Medicine 10/15/12 Casing Builder Relationship Specialty Start Date End Date Cristina Iqbal, SALES TRAINING COORDINATOR [address] [place] [address] PCP - General Family Medicine 10/15/12 Casing Builder Relationship Specialty Start Date End Date Cristina Iqbal, SALES TRAINING COORDINATOR [address] [place] [address] PCP - General Family Medicine 10/15/12 Casing Builder Relationship Specialty Start Date End Date Cristina Iqbal, SALES TRAINING COORDINATOR [address] [place] [address] PCP - General Nurse Practitioner 07/18/20 Casing Builder Relationship Specialty Start Date End Date Cristina Iqbal, SALES TRAINING COORDINATOR [address] [place] [address] PCP - General Family Medicine 10/15/12 Casing Builder Relationship Specialty Start Date End Date Cristina Iqbal, SALES TRAINING COORDINATOR [address] [place] [address] PCP - General Family Medicine 10/15/12 Casing Builder Relationship Specialty Start Date End Date Cristina Iqbal, SALES TRAINING COORDINATOR [address] [place] [address] PCP - General Family Medicine 10/15/12 Casing Builder Relationship Specialty Start Date End Date Cristina Iqbal, SALES TRAINING COORDINATOR [address] [place] [address] PCP - General Family Medicine 10/15/12 Casing Builder Relationship Specialty Start Date End Date Cristina Iqbal, SALES TRAINING COORDINATOR [address] [place] [address] PCP - General Nurse Practitioner 07/18/20 Casing Builder Relationship Specialty Start Date End Date Cristina Iqbal, SALES TRAINING COORDINATOR [address] [place] [address] PCP - General Nurse Practitioner 07/18/20 Casing Builder Relationship Specialty Start Date End Date Cristina Iqbal, SALES TRAINING COORDINATOR [address] [place] [address] PCP - General Family Medicine 10/15/12 Casing Builder Relationship Specialty Start Date End Date Cristina Iqbal, SALES TRAINING COORDINATOR [address] [place] [address] PCP - General Family Medicine 10/15/12 Casing Builder Relationship Specialty Start Date End Date Cristina Iqbal, SALES TRAINING COORDINATOR [address] [place] [address] PCP - General Family Medicine 10/15/12 Casing Builder Relationship Specialty Start Date End Date Cristina Iqbal, SALES TRAINING COORDINATOR [address] [place] [address] PCP - General Family Medicine 10/15/12 INFORMATION SOURCE (unrecogn ized section and content) DATE CREATED AUTHOR 12/16/2021 [employer] [facility] DATE CREATED AUTHOR AUTHOR'S ORGANIZ ATION 12/20/2021 [facility] DATE CREATED AUTHOR AUTHOR'S ORGANIZ ATION 05/12/2022 [facility] DATE CREATED AUTHOR AUTHOR'S ORGANIZ ATION 05/31/2022 [facility] DATE CREATED AUTHOR AUTHOR'S ORGANIZ ATION 01/28/2024 [employer] [facility] Source Comments (unrecognize d section and content) In the event this informatio n is protected by the Federal Confidentiality of Alcohol and Drug Abuse Patient Records regulations: The Federal rules restrict any use of the information to criminally investigate or prosecute any alcohol or drug abuse patient.[facility] the event this information is protected by the Federal Confidentiality of Alcohol and Drug Abuse Patient Records regulations: The Federal rules restrict any use of the information to criminally investigate or prosecute any alcohol or drug abuse patient.[facility] the event this information is protected by the Federal Confidentiality of Alcohol and Drug Abuse Patient Records regulations: The Federal rules restrict any use of the information to criminally investigate or prosecute any alcohol or drug abuse patient.[facility] the event this information is protected by the Federal Confidentiality of Alcohol and Drug Abuse Patient Records regulations: The Federal rules restrict any use of the information to criminally investigate or prosecute any alcohol or drug abuse patient.[facility] the event this information is protected by the Federal Confidentiality of Alcohol and Drug Abuse Patient Records regulations: The Federal rules restrict any use of the information to criminally investigate or prosecute any alcohol or drug abuse patient.[facility] the event this information is protected by the Federal Confidentiality of Alcohol and Drug Abuse Patient Records regulations: The Federal rules restrict any use of the information to criminally investigate or prosecute any alcohol or drug abuse patient.[facility] the event this information is protected by the Federal Confidentiality of Alcohol and Drug Abuse Patient Records regulations: The Federal rules restrict any use of the information to criminally investigate or prosecute any alcohol or drug abuse patient.[facility] the event this information is protected by the Federal Confidentiality of Alcohol and Drug Abuse Patient Records regulations: The Federal rules restrict any use of the information to criminally investigate or prosecute any alcohol or drug abuse patient.[facility] the event this information is protected by the Federal Confidentiality of Alcohol and Drug Abuse Patient Records regulations: The Federal rules restrict any use of the information to criminally investigate or prosecute any alcohol or drug abuse patient.[facility] the event this information is protected by the Federal Confidentiality of Alcohol and Drug Abuse Patient Records regulations: The Federal rules restrict any use of the information to criminally investigate or prosecute any alcohol or drug abuse patient.[facility] the event this information is protected by the Federal Confidentiality of Alcohol and Drug Abuse Patient Records regulations: The Federal rules restrict any use of the information to criminally investigate or prosecute any alcohol or drug abuse patient.[facility] the event this information is protected by the Federal Confidentiality of Alcohol and Drug Abuse Patient Records regulations: The Federal rules restrict any use of the information to criminally investigate or prosecute any alcohol or drug abuse patient.[facility] the event this information is protected by the Federal Confidentiality of Alcohol and Drug Abuse Patient Records regulations: The Federal rules restrict any use of the information to criminally investigate or prosecute any alcohol or drug abuse patient.[facility] the event this information is protected by the Federal Confidentiality of Alcohol and Drug Abuse Patient Records regulations: The Federal rules restrict any use of the information to criminally investigate or prosecute any alcohol or drug abuse patient.[facility] the event this information is protected by the Federal Confidentiality of Alcohol and Drug Abuse Patient Records regulations: The Federal rules restrict any use of the information to criminally investigate or prosecute any alcohol or drug abuse patient.[facility] the event this information is protected by the Federal Confidentiality of Alcohol and Drug Abuse Patient Records regulations: The Federal rules restrict any use of the information to criminally investigate or prosecute any alcohol or drug abuse patient.[facility] the event this information is protected by the Federal Confidentiality of Alcohol and Drug Abuse Patient Records regulations: The Federal rules restrict any use of the information to criminally investigate or prosecute any alcohol or drug abuse patient.[facility] the event this information is protected by the Federal Confidentiality of Alcohol and Drug Abuse Patient Records regulations: The Federal rules restrict any use of the information to criminally investigate or prosecute any alcohol or drug abuse patient.[facility] the event this information is protected by the Federal Confidentiality of Alcohol and Drug Abuse Patient Records regulations: The Federal rules restrict any use of the information to criminally investigate or prosecute any alcohol or drug abuse patient.[facility] the event this information is protected by the Federal Confidentiality of Alcohol and Drug Abuse Patient Records regulations: The Federal rules restrict any use of the information to criminally investigate or prosecute any alcohol or drug abuse patient.[facility] the event this information is protected by the Federal Confidentiality of Alcohol and Drug Abuse Patient Records regulations: The Federal rules restrict any use of the information to criminally investigate or prosecute any alcohol or drug abuse patient.[facility] FOR RECORDS PERTAINING TO PATIENTS WHO [...] BE BASED ON THE PRIMARY CLINICAL RECORDS. [employer] [facility]. provides no warranty or guarantee of the accuracy or completeness of information in this document.
[2024-02-01 15:50] LABS: SARS-CoV-2 Ag NEGATIVE (NEGATIVE)
[2024-02-01 15:51] LABS: Internal Control Within Normal Limits
--- NOTE | 2024-02-01 15:57 | ED.GENADUL1 ---
HPI HPI - General Adult General Chief complaint: Upper Respiratory Infection Stated complaint: sob Time Seen by Provider: 02/01/24 15:20 Source: patient Mode of arrival: walk-in History of Present Illness HPI narrative: 53 female presents here with chief complaint of cough congestion and wheezing. Patient has a history of smoking in the past but states no longer smokes. Over the last several days she has had increased wheezing at home. She has better at this time but wanted to be checked for COVID. States significant other was exposed to COVID 2 days ago. Patient's lung sounds are aspiratory wheezing. She is in no acute distress she is not hypoxic Related Data Previous Rx's ?Medication ?Instructions ?Recorded prednisone 20 mg tablet 20 mg PO DAILY #7 tabs 02/01/24 Allergies Allergy/AdvReac Type Severity Reaction Status Date / Time No Known Drug Allergies Allergy Verified 02/01/24 15:18 Opioid HPI Opioid Management Most Recent Opioid Data: No Data to Display Review of Systems ROS Narrative All Systems are negative except as noted/marked.All systems reviewed and otherwise negative PFSH PFSH Social History Little interest or pleasure in doing things: not at all Feeling down, depressed, or hopeless: not at all Exam Narrative Exam Narrative: A Nurses note and vital signs reviewed and patient is not hypoxic. General: The patient appears well and in no apparent distress. Patient is resting comfortably on cart. Skin: Warm, dry, no pallor noted. There is no rash noted. Head: Normocephalic, atraumatic Eye: Normal conjunctiva, no drainage, EOMI. PERRL Ears, Nose, Mouth, and Throat: oral mucosa is moist. Nares patent. Mouth without vesicles. Ear canals patent. Tm's without Erythema Cardiovascular: Regular Rate and Rhythm Respiratory: dry nonproductive Cough, scattered wheezing throughout posterior, no acute respiratory distress patient is in no distress, no accessory muscle use, no rales or rhonchi Back: non-tender, no CVA tenderness bilaterally to percussion. Musculoskeletal: The patient has no evidence of calf tenderness, no pitting edema, symmetrical pulses noted bilaterally Neurological: A&O x4, normal speech Psychiatric: Cooperative Constitutional Vital Signs, click to edit/add: Last Vital Signs Temp 97.8 F 02/01/24 15:16 Pulse 109 H 02/01/24 15:16 Resp 18 02/01/24 15:16 BP 156/88 H 02/01/24 15:16 Pulse Ox 96 02/01/24 16:17 O2 Del Method Room Air 02/01/24 16:17 Course Vital Signs Vital signs: Vital Signs Temperature 97.8 F 02/01/24 15:16 Pulse Rate 109 H 02/01/24 15:16 Respiratory Rate 18 02/01/24 15:16 Blood Pressure 156/88 H 02/01/24 15:16 Pulse Oximetry 97 02/01/24 15:16 Oxygen Delivery Method Room Air 02/01/24 15:16 Temperature 97.8 F 02/01/24 15:16 Pulse Rate 109 H 02/01/24 15:16 Respiratory Rate 18 02/01/24 15:16 Blood Pressure 156/88 H 02/01/24 15:16 Pulse Oximetry 96 02/01/24 16:17 Oxygen Delivery Method Room Air 02/01/24 16:17 Medical Decision Making MDM Narrative Medical decision making narrative: -year-old female presenting here with chief complaint of wanting tested for COVID. Initial COVID swab was negative. She then asked for me tested for influenza. She has no fevers chills or abdominal pain. No body aches. Patient does have a history of asthma questionable COPD she had a history of smoking in the past but no longer smokes. Patient seen x-ray wheezing on arrival was given a DuoNeb breathing treatment. She was also medicated today with prednisone as she states she has had wheezing and cough at home. Patient's test appear to be normal. Chest x-ray is negative. Patient be discharged home with prescription of prednisone and follow-up primary care physician she denies the need for inhalers. Patient agrees with plan of care and discharged home diagnosis upper respiratory infection. Differential Diagnosis Differential Diagnosis: COPD, URI, COVID Medical Records Medical records reviewed: Yes I reviewed the patient's medical records Lab Data Lab results reviewed: Yes I reviewed the patient's lab results Labs: Lab Results 02/01/24 Range/Units 15:19 Influenza Type A Ag Negative Influenza Type B Ag Negative SARS-CoV-2 Ag (CV2AG) Negative (NEGATIVE) Discharge Plan Discharge Chief Complaint: Upper Respiratory Infection Clinical Impression: Upper respiratory infection Patient Disposition: Home, Self-Care Time of Disposition Decision: 16:27 Condition: Good Prescriptions / Home Meds: New prednisone 20 mg tablet 20 mg PO DAILY Qty: 7 0RF Print Language: Macedonian Instructions: Upper Respiratory Infection (ED) Referrals: Vincent Rosas NP [Primary Care Provider] - 1 week Discharge Date/Time: 02/01/24 16:36
[2024-02-01] MEDS: IPRATROPIUM/ALBUTEROL SULFATE 3 ML AMPUL.NEB IH (16:16)
[2024-02-01 16:17] VITALS: O2SAT 96
[2024-02-01] MEDS: PREDNISONE 20 MG TABLET 40 MG PO (16:20)
[2024-02-01 16:27] LABS: Influenza Virus A Antigen Negative; Influenza Virus B Antigen Negative; Internal Control Within Normal Limits
== END 2024-02-01 16:36 | disposition home or self-care (01) ==
PROVIDERS: Physician Assistant; Emergency Provider Emergency Medicine; PCP Nurse Practitioner Primary Care
DX: J06.9 Acute upper respiratory infection, unspecified (principal); Z87.891 Personal history of nicotine dependence; Z20.822 Contact with and (suspected) exposure to COVID-19
CPT/HCPCS: 71046; 87804; 87811; 94640; 99285; J7512

== ENCOUNTER 2024-03-15 08:47 | Emergency (ER) | payer OTHER, SELFPAY ==
--- OUTSIDE RECORDS SUMMARY | 2024-03-15 08:59 | XMS_ITS | CCD ---
Author Organization [facility] ion [facility] Care Team Providers Care Oracle Data Warehouse Developer Name Role Phone Cristina Iqbal CNP Primary Care Provider Vipin Pina Attending Unavailable Roshni Werner Attending Unavailable Cristina Iqbal CNP Primary Care Provider CRISTINA IQBAL Primary Care Unavailable JENNY, ALESSANDROENDER Attending Unavailable CRISTINA IQBAL Primary Care Unavailable ROBB EVANS Attending Unavailable CRISTINA IQBAL Primary Care Unavailable JENNY, ALESSANDROENDER Attending Unavailable CRISTINA IQBAL Primary Care Unavailable KENNEDYOT, ALESSANDROENDER Attending Unavailable Cristina Iqbal CNP Primary Care Provider [phone] Cristina Iqbal CNP Primary Care Provider Cristina Iqbal CNP Primary Care Provider CRISTINA IQBAL Primary Care Unavailable KIRSTEN DALTON Attending Unavailable CRISTINA IQBAL Primary Care Unavailable DAVIDI, ANASTASIYA Referring Unavailable JAYLIN, ANASTASIYA Attending Unavailable CRISTINA IQBAL Primary Care Unavailable JAYLIN, ANASTASIYA Attending Unavailable CRISTINA IQBAL Referring Unavailable CRISTINA IQBAL Primary Care Unavailable CRISTINA IQBAL Primary Care Unavailable CRISTINA IQBAL Referring Unavailable TIFFANI MORALES Attending Unavailable FREDERICK CHAVES Attending Unavailable CRISTINA IQBAL Primary Care Unavailable TIFFANI MORALES Referring Unavailable AICHHOLZ, CRISTINA ALEE Primary Care Unavailable TIFFANI MORALES Referring Unavailable TIFFANI MORALES Attending Unavailable [facility], CRISTINA ALEE Primary Care Unavailable YAN GARCIA JR Attending Unavailable [facility], CRISTINA ALEE Primary Care Unavailable ANASTASIYA MOSQUEDA Referring Unavailable [facility], [facility] Primary Care Unavailable ANNELISE FRAZIER Admitting Unavailable ANNELISE FRAZIER Attending Unavailable ANNELISE FRAZIER Consulting Unavailable BELEN REGAN Consulting Unavailable IRINA SEGURA Admitting Unavailable IRINA SEGURA Attending [facility]available [facility] Primary Care Unavailable MISC, DR DECKER Consulting Unavailable GEHLOT, UPENDER Admitting Unavailable GEHLOT, UPENDER Attending Unavailable [facility], [facility] Referring Unavailable [facility], [facility] Primary Care Unavailable GEHLOT, UPENDER Consulting Unavailable BENEDICT, DR RYDER Admitting Unavailable BENEDICT, DR RYDER Attending Unavailable [facility], [facility] Primary Care Unavailable BENEDICT, DR RYDER Consulting Unavailable MISC, DR DECKER Admitting Unavailable MISC, DR DECKER Attending Unavailable AICHOLZ, [facility] Primary Care Unavailable MISC, DR DECKER Consulting Unavailable [facility], [facility] Primary Care Unavailable PAY ., DR ZULUAGA Admitting Unavailable PAY ., DR ZULUAGA Attending Unavailable PAY ., DR ZULUAGA Consulting Unavailable CHITRA ALFARO Consulting Unavailable [facility], [facility] Primary Care Unavailable PAY ., DR ZULUAGA Admitting Unavailable PAY ., DR ZULUAGA Attending Unavailable ZIEBER, DR BRITNI Wheleer Consulting Unavailable PAY ., DR ZULUAGA Consulting Unavailable [facility], [facility] Primary Care Unavailable GELA WESLEY Admitting Unavailable GELA WESLEY Attending Unavailable BARBI HENRY Consulting Unavailable GELA WESLEY Consulting Unavailable [facility] Primary Care Physician [phone] Lala Zarco Primary Care Physician [facility] Primary Care Unavailable Sandoval Rae Admitting Unavailable Sandoval Rae Attending Unavailable Sandoval Rae Referring Unavailable Sandoval Rae Attending Unavailable Sandoval Rae Attending Unavailable Sandoval Rae Attending Unavailable Sandoval Rae Attending Unavailable Lala Zarco Attending Unavailable Lala Zarco Attending Unavailable Lala Zarco Attending Unavailable [facility] Care Unavailable Sandoval Rae Admitting Unavailable Sandoval [...] Start: 04-03-2021 take 1 tablet by shahzad th three times daily as needed for anxiety [...] day(s), # 10 cap(s), Refills(s) 0, Pharmacy: [facility]/pharmacy #[id number], 172, cm, 09/24/23 13:02:00 EDT, Height/Length Dosing, 61.2, kg, 09/24/23 13:02:00 EDT, Weight Dosing Start Date: 09/24/23 Stop Date: 09/29/23 Status: Ordered cholestyramine resin 4000 mg powder for oral suspension (5 sources) Bile Acid Sequestrant Start: 01-16-20 Questran 4 g/9 g oral powder = 1 packet(s), Oral, BID, # 60 EA, Refills(s) 2, Pharmacy: [facility]/pharmacy #[id number], 169, cm, 01/16/24 10:14:00 EDT, Height/Length Dosing, 63.9, kg, 01/16/24 10:14:00 EDT, Weight Dosing Start Date: 01/16/24 Status: Ordered cloNIDine hydrochloride 0.2 mg oral tablet (20 sources) Central alpha-2 Adrenergic Agonist Start: 05-25-19 End: 10-04-19 take 1 tablet by mouth at bedtime cloNIDine 0.2 mg Tab 0.2 mg = 1 tab(s), Oral, Bedtime, # 30 tab(s), Refills(s) 1, Pharmacy: [facility]/pharmacy #[id number], 173, cm, 05/24/20 14:42:00 EST, Height/Length Dosing, 50.1, kg, 05/24/20 14:42:00 EST, Weight Dosing Start Date: 05/24/20 Status: Ordered colestipol hydrochloride 1000 mg oral tablet (4 sources) Bile Acid Sequestrant Start: 01-23-20 take 2 tablets by mouth twice daily colestipol 1 g Tab 2 gm = 2 tab(s), Oral, BID, with a full glass of water, # 120 tab(s), Refills(s) 1, Pharmacy: [facility]/pharmacy #[id number], 169, cm, 01/16/24 10:14:00 EDT, Height/Length Dosing, 63.9, kg, 01/16/24 10:14:00 EDT, Weight Dosing Start Date: 01/23/24 Status: Ordered enteric contrast (will be provided with radiology test) (1 source) Start: 03-02-20 End: 03-03-20 enteric contrast (will be provided with radiology [...] guidelines. hydrOXYzine hydrochloride 50 mg oral tablet (13 sources) Antihistamine Start: 04-26-19 take 1 tablet by mouth three times daily as needed for anxiety hydrOXYzine hydrochloride 50 mg oral tablet 50 mg = 1 tab(s), Oral, TID, PRN as needed for anxiety, # 30 tab(s), Refills(s) 0, [id number], cm, 04/26/20 13:07:00 EST, [...] AFTERNOON, # 30 tab(s), Refills(s) 0, Pharmacy: [id number], 169.7, cm, 11/26/23 15:32:00 EDT, Height/Length Dosing, [...] mouth . mirtazapine 7.5 mg oral tablet (5 sources) Start: 4 take 1 tablet by mouth at bedtime mirtazapine 7.5 mg oral tablet 7.5 mg = 1 tab(s), Oral, Bedtime, # 30 tab(s), Refills(s) 0, Pharmacy: [facility]/pharmacy #[id number], 169.7, cm, 10/03/23 9:38:00 EDT, Height/Length Dosing, 62.5, kg, 10/03/23 9:38:00 EDT, Weight Dosing Start Date: 10/31/23 Status: Ordered 24 hr nicotine 0.875 mg/hr transdermal system (8 sources) Cholinergic Nicotinic Agonist Start: 4 nicotine 21 mg/24 hr Transderm ER Film Refill(s) 0 Start Date: 02/18/24 Status: Ordered Start: 10-24-2012 End: 01-03-2022 apply 1 dose transdermal route every twenty-four hours nicotine 21 mg/24 hr Indications: Tobacco abuse Apply 1 Patch as directed every 24 hours. 30 Patch 3 10/24/2012 01/03/2022 Discontinued (Course of therapy completed) Comment on above: Apply 1 Patch as dir ected every 24 hours. OLANZapine 5 mg oral tablet (20 sources) Atypical Antipsychotic Start: 3 take 1 tablet by mouth once daily [...] omeprazole 20 mg delayed release oral capsule (5 sources) Proton Pump Inhibitor Start: 02-24-2024 take 1 capsule by mouth once daily omeprazole 20 mg Cap-DR See Instructions, TAKE 1 CAPSULE BY MOUTH EVERY DAY, # 30 cap(s), Refills(s) 0, Pharmacy: [facility] STORE [id number], 169, cm, 02/21/24 8:47:00 EST, Height/Length Dosing, 62.2, kg, 02/21/24 8:47:00 EST, Weight Dosing Start Date: 02/24/24 Status: Ordered Start: 01-20-2024 take 1 capsule by [facility] once daily omeprazole 20 mg Lisandro- See Instructions, TAKE 1 CAPSULE BY MOUTH EVERY DAY, # 30 cap(s), Refills(s) 0, Pharmacy: [facility] STORE [id number], 169, cm, 01/16/24 10:14:00 EDT, Height/Length Dosing, 63.9, kg, 01/16/24 10:14:00 EDT, Weight Dosing Start Date: 01/20/24 Status: Ordered Start: 12-04-2023 take 1 capsule by [facility] once daily omeprazole 20 mg Lisandro- See Instructions, TAKE 1 CAPSULE BY MOUTH EVERY DAY, # 30 cap(s), Refills(s) 0, Pharmacy: [facility]/pharmacy #[id number], 169.7, cm, 11/26/23 15:32:00 EDT, Height/Length Dosing, 62.1, kg, 11/26/23 15:32:00 EDT, Weight Dosing Start Date: 12/04/23 Status: Ordered ondansetron 8 mg disintegrating oral tablet (20 sources) Serotonin-3 Receptor Antagonist Start: 02-18-2024 ondansetron 8 mg Dis Tab See Instructions, DISSOLVE 1 TABLET ON THE TONGUE EVERY 8 HOURS NEEDED FOR NAUSEA AND VOMITING, # 24 tab(s), Refills(s) 0, Pharmacy: [facility]/pharmacy #[id number], 169, cm, 02/18/24 11:55:00 EST, Height/Length Dosing, 61.8, kg, 02/18/24 11:55:00 EST, Weight Dosing Start Date: 02/18/24 Status: Ordered Start: 12-20-2023 take 1 tablet by shahzad th every six hours as needed for nausea ondansetron 4 mg Dis Tab 4 mg = 1 tab(s), Oral, q6hr, PRN Nausea/Vomiting, # 30 tab(s), Refills(s) 0, [id number] 169.7, cm, 11/26/23 15:32:00 EDT, [...] Nausea, # 10 tab(s), Refills(s) 0, [id number] 173, cm, 04/26/20 13:07:00 EST, [...] (20 sources) Proton Pump Inhibitor Start: 07-16-2019 Protonix 40 mg Tab-DR Oral, 0 Refill(s), Refills(s) 0 Start Date: 07/16/19 Status: Ordered Start: 07-16-2019 take 1 tablet by shahzad th once daily pantoprazole 40 mg Oral EC Tab 40 mg = 1 tab(s), Oral, Daily, # 30 tab(s), Refills(s) 0 Start Date: 07/16/19 Status: Ordered Comment on above: Take 40 mg by mouth once daily. polyethylene glycol 3350 11709 mg powder for oral solution (18 sources) Osmotic Laxative Start: 05-24-19 polyethylene glycol (MIRALAX) 17 gram powder MIX 1 PACKET IN DRINK AND TAKE ONCE DAILY 0 05/23/2020 Active promethazine hydrochloride 25 mg oral tablet (7 sources) Phenothiazine Start: 02-12-20 take 1 tablet by mouth three times daily promethazine 25 mg Tab See Instructions, TAKE 1 TABLET BY MOUTH THREE TIMES A DAY, # 30 tab(s), Refills(s) 1, Pharmacy: [facility]/pharmacy #[id number], 169, cm, 02/18/24 11:55:00 EST, Height/Length Dosing, 61.8, kg, 02/18/24 11:55:00 EST, Weight Dosing Start Date: 02/18/24 Status: Ordered Start: 09-24-2023 take 1 tablet by shahzad three times daily promethazine 25 mg Tab 25 mg = 1 tab(s), Oral, TID, # 15 tab(s), Refills(s) 0, Pharmacy: [facility]/pharmacy #[id number], 172, cm, 09/24/23 13:02:00 EDT, Height/Length Dosing, 61.2, kg, 09/24/23 13:02:00 EDT, Weight Dosing Start Date: 09/24/23 Status: Ordered Start: 12-03-2021 take 1 tablet by shahzad every four hours promethazine 25 mg Tab 25 mg = 1 tab(s), Oral, q4hr, # 12 tab(s), Refills(s) 0, Pharmacy: [facility]/pharmacy #[id number], 172.9, cm, 12/03/21 10:15:00 EDT, Height/Length Dosing, 46.2, kg, 12/03/21 10:15:00 EDT, Weight Dosing Start Date: 12/03/21 Status: Ordered Start: 12-03-2021 Phenergan 25 m g Supp 25 mg = 1 supp, Rectal, q6hr, PRN as needed for nausea, Insert one per rectum every six hours as needed for nausea and vomiting, # 6 EA, Refills(s) 0, Pharmacy: [facility]/pharmacy #[id number], 172.9, cm, 12/03/21 10:15:00 EDT, [...] daily . 30 tablet 5 08/22/2020 Active sucralfate 1000 mg oral tablet (2 sources) Aluminum Complex Start: 02-21-2024 End: 03-06-2024 take 1 tablet by mouth four times daily Carafate 1 gram Tab 1 gm = 1 tab(s), Oral, QID, X 14 day(s), # 56 tab(s), Refills(s) 0, Pharmacy: [facility]/pharmacy #[id number], 169, cm, 02/21/24 8:47:00 EST, Height/Length Dosing, 62.2, kg, 02/21/24 8:47:00 EST, Weight Dosing Start Date: 02/21/24 Stop Date: 03/06/24 Status: Ordered 10 actuat tiotropium 0.0025 mg/actuat inhalation spray (20 sources) Anticholinergic Start: 02-18-2024 Spiriva Respim at 10 ACT 2.5 mcg/inh inhalation aerosol = 2 puff(s), Inhalation, Daily, Refills(s) 0 Start Date: 02/18/24 Status: Ordered Start: 11-27-2023 Spiriva Respim at 60 ACT 2.5 mcg/inh inhalation aerosol = 2 inh, Inhalation, Daily, # 4 gm, Refills(s) 11, Pharmacy: [facility]/pharmacy #[id number], 169.7, cm, 11/26/23 15:32:00 EDT, Height/Length [...] once daily. Ventolin HFA 90 mcg/inh Aerosol (6 sources) Start: 07-16-2019 take 2 puff(s) by inhalation every four hours for wheezing Ventolin HFA 90 mcg/inh Aerosol 2 puff(s), Inhalation, q4hr for wheezing, 18 gram, Refill(s) 0 Start Date: 07/16/19 Status: Ordered Zofran ODT 4 mg Tab-Dis (6 sources) Start: 09-24-2023 take 1 tablet by mouth three times daily Zofran ODT 4 mg Tab-Dis 4 mg = 1 tab(s), Oral, TID, # 15 tab(s), Refills(s) 0, Pharmacy: [facility]/pharmacy #[id number], 172, cm, 09/24/23 13:02:00 EDT, Height/Length Dosing, 61.2, kg, 09/24/23 13:02:00 EDT, Weight Dosing Start Date: 09/24/23 Status: Ordered Zofran ODT 8 mg Tab-Dis (4 sources) Start: 02-12-2024 take 1 tablet under the tongue every eight hours as needed for nausea Zofran ODT 8 mg Tab-Dis 8 mg = 1 tab(s), SubLingual, q8hr, PRN Nausea/Vomiting, # 24 tab(s), Refills(s) 0, Pharmacy: [facility]/pharmacy #[id number], 169, cm, 01/16/24 10:14:00 EDT, Height/Length Dosing, 63.9, kg, 01/16/24 10:14:00 EDT, Weight Dosing Start Date: 02/12/24 Status: Ordered Start: 01-23-2024 take 1 tablet under the tongue every eight hours as needed for nausea Zofran ODT 8 mg Tab-Dis 8 mg = 1 tab(s), SubLingual, q8hr, PRN Nausea/Vomiting, # 24 tab(s), Refills(s) 0, [id number] 169, cm, 01/16/24 10:14:00 EDT, [...] by mouth t wice daily as needed. diclofenac sodium 0.01 mg/mg topical gel (7 [...] take 1 puff(s) by inhalation twice daily fluticasone-salmet tammi (ADVAIR DISKUS) 100-50 mcg/dose DsDv Inhale 1 [...] 8 hours as needed. prazosin 2 mg oral capsule (7 sources) [...] Date Documented Da te Episodic/Chronic Abdominal pain (20 sources) Left upper quadrant pain; Translations: [Left upper quadrant pain] Onset: 2 Episodic Alcohol-related disorders (6 sources) Alcoholism 10-21-2019 Chronic Anxiety disorders (20 [...] moderate] Onset: 1 Chronic Nausea and vomiting (20 sources) Nausea and vomiting; Translations: [Nausea with vomiting, unspecified] Onset: 2 Episodic Noninfectious gastroenteritis (8 sources) Noninfectious enteritis; Translations: [Noninfective gastroenteritis and colitis, unspecified] Onset: 4 Episodic Nutritional deficiencies (20 sources) Deficiency of macronutrients; Translations: [Unspecified severe protein-calorie malnutrition] Onset: 2 Chronic Other aftercare (5 sources) H/O: high risk medication; Translations: [Other [place] [facility] therapy] Episodic Other and unspecified benign neoplasm (1 source) Intestinal polyposis syndrome; Translations: [Benign neoplasm of colon, unspecified] Episodic Other and unspecified benign neoplasm (8 sources) History of polyp of colon; Translations: [Personal history of colon polyps, unspecified] Onset: 4 Episodic Other circulatory disease (20 sources) Raynaud's phenomenon; Translations: [Raynaud's syndrome without gangrene] Onset: 3 10-24-2012 Chronic Other circulatory disease (20 sources) Low blood pressure; Translations: [Hypotension, unspecified] Onset: 1 07-18-2020 Episodic Other disorders of stomach and duodenum (3 sources) Gastroduodenal disorder; Translations: [Disease of stomach and duodenum, unspecified] Onset: 4 Episodic Other disorders of stomach and duodenum (5 sources) Disorder of stomach 01-16-2024 Episodic Other gastrointestinal disorders (1 source) Irritable bowel syndrome without diarrhea; Translations: [IRRITABLE BOWEL SYND W/O DIARRHEA] Onset: 2 Chronic Other gastrointestinal disorders (20 sources) Incontinence of feces; Translations: [Full incontinence of feces] Onset: 1 07-18-2020 Episodic Other gastrointestinal disorders (1 source) Polyp of small intestine; Translations: [Other specified diseases of intestine] Episodic Other gastrointestinal disorders (5 sources) Diarrhea 11-26-2023 Episodic Other lower respiratory disease (6 sources) Chronic disease of respiratory system 04-26-2020 [...] Episodic Other nutritional; endocrine; and metabolic disorders (6 sources) Underweight 04-26-2020 Episodic Residual codes; unclassified [...] AWARENESS] Onset: 3 Episodic Residual codes; unclassified (2 sources) Past history of procedure; Translations: [Other specified postprocedural states] Onset: 4 Episodic Residual codes; unclassified (1 source) Acquired absence of organ; Translations: [Acquired absence of other specified parts of digestive tract] Onset: 4 Episodic Residual codes; unclassified (2 sources) Amnesia 02-18-2024 Episodic Residual codes; unclassified (2 sources) Family history of dementia 02-18-2024 Episodic Substance-related disorders (9 sources) Nicotine dependence, cigarettes, uncomplicated; Translations: [Nicotine dependence] Onset: 2 04-26-2020 Chronic Comment on above: Added secondary to d ocumentation in Social History. Unclassified (1 source) APPOINTMENT CANCELLED Unclassified (2 sources) Medication Management Onset: 1 Unclassified (17 sources) Patient encounter status 04-26-2020 Unclassified (2 sources) Body mass index 20-24 - normal 02-18-2024 Urinary tract infections (1 source) Urinary tract infectious disease; Translations: [Urinary tract infection, site not specified] Onset: 4 Episodic Past or Other Problems Problem Classification Problem Date Documented Da te Episodic/Chronic Fluid and electrolyte disorders (1 source) Dehydration; Translations: [DEHYDRATION] Onset: 12-13-2021 Episodic Fracture of lower limb (6 sources) Fracture of foot Onset: 03-18-2018 04-26-2020 [...] 2021 Episodic Other aftercare (7 sources) [facility] [place] [facility] therapy; Translations: [Other [place] [facility] drug therapy] Onset: 09-19-2021 Episodic Other [...] Test Name Value Interpretation Reference Range Facility Surgical Pathology Reporton 03-02-2024 Surgical Pathology Report [facility] [address] [place] [address]- Surgical Pathology Report Collected Date/Time: 02/25/2024 10:41 EST Pathologist: Brendon SANDOVAL PhD, Prince Ch Received Date/Time: 02/25/2024 12:53 EST Butch SANDOVAL, Sandoval Rae MD, Sandoval Talley Surgical Pathology Report - 03/02/2024 09:55 EST - Auth (Verified) Final Diagnosis A: STOMACH, BIOPSY: - GASTRIC ANTRAL MUCOSA COMPATIBLE WITH MILD REACTIVE GASTROPATHY. - DETACHED UNREMARKABLE DUODENAL MUCOSA. - NO H. PYLORI MICROORGANISMS IDENTIFIED WITH IMMUNOSTAIN. B: POLYP, DUODENUM, POLYPECTOMY: - BENIGN REACTIVE DUODENAL MUCOSA. - NO ACTIVE INFLAMMATION, GRANULOMA OR DYSPLASIA. C: DUODENUM, BIOPSY: - BENIGN REACTIVE DUODENAL MUCOSA. - NO ACTIVE INFLAMMATION, GRANULOMA OR DYSPLASIA. (Electronic Signature) Prince Olivas MD PhD 03/02/2024 09:55 Clinical Information Nausea, vomiting, epigastric pain, chronic diarrhea Pre-Op Diagnosis: Nausea, vomiting, epigastric pain, chronic diarrhea Procedure: EGD Post-Op Diagnosis: 1. Diffuse gastropathy 2. Possible bile reflux 3. Hiatal hernia 4. Duodenal scalloping 5. Duodenal polyp s/p resection Specimen(s) Received A.Gastric biopsy B.Duodenal polyp C.Duodenal biopsy Gross Description A: Received in formalin labeled with patient name, number, and gastric biopsy are three fragments of proctor/pink soft tissue measuring 0.1 to 0.3 cm in diameter. Entire specimen submitted in one cassette. B: Received in formalin labeled with patient name, number, and duodenal polyp is one fragment of proctor/pink soft tissue measuring 0.5 x 0.3 x 0.3 cm. Entire specimen submitted in one cassette. C: Received in formalin labeled with patient name, number, and duodenal biopsy are two fragments of proctor/pink soft tissue measuring 0.2 and 0.3 cm in diameter, respectively. Entire specimen submitted in one cassette. (YC) [facility] Microscopic Description Microscopic examination performed unless gross only specified. The use of one or more reagents in the above tests is regulated as an analyte specific reagent (ASR). The test or tests are ordered following initial H&E microscopic examination. The Surgical Pathology Report Collected Date/Time: 02/25/2024 10:41 EST Pathologist: Brendon SANDOVAL PhD, Prince Ch Received Date/Time: 02/25/2024 12:53 EST Butch SANDOVAL, Sandoval Milligan. Sandoval Rae MD Microscopic Description performance characteristics were determined by the [facility] Surgical Pathology. They have not been cleared or approved by the [place] Food and Drug Administration. The FDA has determined that such clearance or approval is not necessary. These tests are used for clinical purposes. They should not be regarded as investigational or for research. Appropriate positive and negative controls are performed and are acceptable. Normal [facility] Comment on above: Performed By: #### [id number] #### [facility] [address] [place] [address] Main OR Intraoperative Recor don 02-27-2024 Main OR Intraoperative Record Main OR Intraoperative Record IntraOp Document Type FT Summary Primary Physician: Sandoval Rae MD Finalized Date/Time: 02/27/24 07:51:23 Pt. Name: SAI PINEDA/Sex: 1970 Female Med Rec #: [id number] Physician: Sandoval Rae MD Financial #: [id number] Pt. Type: O Room/Bed: / Admit/Disch: 02/25/24 08:51:53 - 02/25/24 23:59:59 Institution: Case Times FT Entry 1 Patient Times In Room 02/25/24 10:32:00 Out Room 02/25/24 10:50:00 Procedure Times Start 02/25/24 10:36:00 Stop 02/25/24 10:46:00 Anesthesia Times Start 02/25/24 10:32:00 Stop 02/25/24 10:50:00 Last Modified By: Chucho Allen RN 02/25/24 10:50:45 General Comments: 02/27/24 Chart opened to review and send charges [facility]oth CSFA Case Attendance FT Entry 1 Entry 2 Entry 3 Case Attendee Evan PENNINGTON, Orlando Rae MD, Chucho Ferreira RN Role Performed ENVIRONMENTAL TEST TECHNICIAN Surgeon - Primary National Accounts Recruiter - Primary Time In 02/25/24 10:32:00 02/25/24 10:32:00 02/25/24 10:32:00 Time Out 02/25/24 10:50:00 02/25/24 10:50:00 02/25/24 10:50:00 Procedure EGD(.) EGD(.) EGD(.) Comments Dr. Rivas supervising case Last Modified By: Chucho Allen RN, RN, Morgan E Souter RN, Morgan E 02/25/24 10:50:45 02/25/24 10:50:45 02/25/24 10:50:45 Entry 4 Entry 5 Case Attendee Roque MOORE, Samantha Jamil Role Performed Scrub - Primary Staff - Other Time In 02/25/24 10:32:00 02/25/24 10:32:00 Time Out 02/25/24 10:50:00 02/25/24 10:50:00 Procedure EGD(.) EGD(.) Comments help in room Last Modified By: Chucho Allen RN, RN, Morgan E 02/25/24 10:50:45 02/25/24 10:50:45 Perioperative Protocols FT Pre-Care Text: Implements protective measures prior to operative or invasive procedure, confirms identity before the operative or invasive procedure, verifies operative procedure, surgical site, and laterality Entry 1 Procedure(s) EGD(.) Patient Identity Birthday, ID Band Verified (select at Check, Patient least 2): Participation Consents / H and P Anesthesia Consent, Operative Site N/A Verified H&P, Surgery/Procedure Marking Verified Consent Surgical Site No Laterality Verified n/a Verified Procedure Verified Yes Correct Patient Yes Position Verified Availability Equipment, Medication Prep Dry n/a Verified (If Applicable) PreOp Antibiotic No Time Out Orlando Gordon CRNA, Given Participants Chucho Allen RN, Mouchli MD, Sandoval Frost, Roque HOT TAMALE WORKER, Luis Manuel Jacob Kirstyn K Time Out Complete 02/25/24 10:35:00 Outcomes Met? Yes Last Modified By: Chucho Allen RN 02/25/24 10:36:15 Post-Care Text: The patient is free from signs and symptoms of injury caused by extraneous objects Allergy Information FT Pre-Care Text: Verifies allergies Entry 1 Allergies Reviewed? Yes Allergies Reviewed Self/Patient With Outcomes Met? Yes Last Modified By: Chucho Allen RN 02/25/24 10:37:04 Post-Care Text: The patient received appropriate medication(s) safely administered during the perioperative period Surgical Procedures FT Entry 1 Procedure Description Procedure EGD Modifiers . Surgeon Description EGD with duodenal biopsy, gastric biopsy, and duodenal polypectomy Primary Procedure Yes Primary Surgeon Butch SANDOVAL, Sandoval Frost Start 02/25/24 10:36:00 Stop 02/25/24 10:46:00 Anesthesia Type General Surgical Service Gastroenterology Wound Class 2 - Clean-Contaminated Last Modified By: Chucho Allen RN 02/25/24 10:49:15 General Case Data FT Pre-Care Text: Classifies surgical wound, implements aseptic technique, initiates traffic control Entry 1 Case Information OR ENDO 1 FT Case Level Level 2 Wound Class 2 - Clean-Contaminated Specialty Gastroenterology ASA Class 3 Preop Diagnosis Nause, Vomiting, Postop Same As Preop No Epigastric pain, Chronic Diarrhea Postop Diagnosis Duodenal polyp, Hiatal Outcomes Met? Yes hernia Last Modified By: Chucho Allen RN 02/25/24 14:52:45 Post-Care Text: The patient is free from signs and symptoms of infection Skin Assessment (Pre Procedure) FT Pre-Care Text: Implements protective measures to prevent skin/ tissue injury due to thermal or mechanical sources Evaluates for signs and symptoms of physical injury to skin and tissue Entry 1 Skin Integrity Dry, Warm Skin Abnormality No Outcomes Met? Yes Last Modified By: Chucho Allen RN 02/25/24 10:39:40 Post-Care Text: The patient is free from signs and symptoms of injury caused by extraneous objects Patient Positioning FT Pre-Care Text: Identifies physical alterations that require additional precautions for procedure-specific positioning, verifies presence of prosthetics or corrective devices, positions the patient, evaluates the patient for signs and symptoms of injury as a result of positioning Entry 1 Procedure EGD(.) Body Position Lateral, right side up Feet Uncrossed? Yes Le (more content not included)... Normal [facility] Discharge Instructionson Discharge Instructions Discharge Instructions SAI PINEDA :1970 Visit Date:02/25/2024 Inpatient Discharge Instructions Your Care Team Admitting Physician - Sandoval Rae MD Referring Physician - Sandoval Rae MD Reason for Your Visit NAUSEA AND VOMITING, EPIGASTRIC PAIN, CHRONIC DIARRHEA Your Diagnosis Adenomatous duodenal polyp Gastropathy Hernia, hiatal Tests Performed Pathology Tissue Exam -- Results Pending -- Please visit your patient portal for your results or contact your primary care physician. This Is Your Medications List albuterol (Ventolin HFA 90 mcg/inh Aerosol) albuterol (albuterol 0.083% Inh Mitsy 3 mL) cholestyramine (Questran 4 g/9 g oral powder) clonidine (cloNIDine 0.2 mg Tab) colestipol (colestipol 1 g Tab) hydrOXYzine (hydrOXYzine hydrochloride 50 mg oral tablet) lamotrigine (lamotrigine 25 mg Tab) mirtazapine (mirtazapine 7.5 mg oral tablet) omeprazole (omeprazole 20 mg Cap-DR) ondansetron (Zofran 4 mg Tab) ondansetron (Zofran ODT 4 mg Tab-Dis) ondansetron (Zofran ODT 8 mg Tab-Dis) ondansetron (ondansetron 4 mg Dis Tab) ondansetron (ondansetron 8 mg Dis Tab) pantoprazole (Protonix 40 mg Tab-DR) promethazine (promethazine 25 mg Tab) promethazine (promethazine 25 mg Tab) sucralfate (Carafate 1 gram Tab) tiotropium (Spiriva Respimat 10 ACT 2.5 mcg/inh inhalation aerosol) tiotropium (Spiriva Respimat 60 ACT 2.5 mcg/inh inhalation aerosol) Procedure History Esophagogastroduodenoscopy (02/25/2024), Colonoscopy (05/08/2019), EGD - Esophagogastroduodenoscopy (05/08/2019), CT - Computerized tomography (01/18/2019), Echocardiogram (11/14/2016), Cardiovascular stress testing (11/01/2016), Appendectomy, delivery, Cholecystectomy, Foot repair, Oral surgery, Total hysterectomy. What to do next Instructions From Your Doctor No qualifying data available. Medications What How Much When Why Instructions Next Dose Unchanged albuterol (albuterol 0.083% Inh Misty 3 mL) 3 Milliliter Inhalation Every 6 hours Q6H and PRN Unchanged albuterol (Ventolin HFA 90 mcg/ inh Aerosol) 2 Puffs Inhalation Every 4 hours as needed for for wheezing Unchanged cholestyramine (Questran 4 g/ 9 g oral powder) 1 Packets By Mouth 2 times a day Unchanged clonidine (cloNIDine 0.2 mg Tab) 1 Tablets By Mouth At bedtime Unchanged colestipol (colestipol 1 g Tab) 2 Tablets By Mouth 2 times a day with a full glass of water Unchanged hydrOXYzine (hydrOXYzine hydrochloride 50 mg oral tablet) 1 Tablets By Mouth 3 times a day as needed for as needed for anxiety MOON (generalized anxiety disorder) Unchanged lamotrigine (lamotrigine 25 mg Tab) See instructions TAKE 1 TABLET BY MOUTH EVERY DAY IN THE AFTERNOON Unchanged mirtazapine (mirtazapine 7.5 mg oral tablet) 1 Tablets By Mouth At bedtime Unchanged omeprazole (omeprazole 20 mg Cap-DR) See instructions TAKE 1 CAPSULE BY MOUTH EVERY DAY Unchanged ondansetron (ondansetron 4 mg Dis Tab) 1 Tablets By Mouth Every 6 hours as needed for Nausea/Vomiting Unchanged ondansetron (ondansetron 8 mg Dis Tab) See instructions DISSOLVE 1 TABLET ON THE TONGUE EVERY 8 HOURS NEEDED FOR NAUSEA AND VOMITING Unchanged ondansetron (Zofran 4 mg Tab) 1 Tablets By Mouth Every 8 hours as needed for Nausea Nausea Unchanged ondansetron (Zofran ODT 4 mg Tab-Dis) 1 Tablets By Mouth 3 times a day Unchanged ondansetron (Zofran ODT 8 mg Tab-Dis) 1 Tablets Sublingual Every 8 hours as needed for Nausea/Vomiting Unchanged pantoprazole (Protonix 40 mg Tab-DR) Oral, 0 Refill(s) Unchanged promethazine (promethazine 25 mg Tab) 1 Tablets By Mouth 3 times a day Unchanged promethazine (promethazine 25 mg Tab) See instructions TAKE 1 TABLET BY MOUTH THREE TIMES A DAY Unchanged sucralfate (Carafate 1 gram Tab) 1 Tablets By Mouth 4 times a day Duration: 14 Days Unchanged tiotropium (Spiriva Respimat 10 ACT 2.5 mcg/ inh inhalation aerosol) 2 Puffs Inhalation Every day Unchanged tiotropium (Spiriva Respimat 60 ACT 2.5 mcg/ inh inhalation aerosol) 2 Inhalation Inhalation Every day Test Results No qualifying data available. Allergies No Known Allergies Problems Ongoing - Any problem that you are currently receiving treatment for. Apnea, sleep Bipolar 1 disorder, mixed, moderate BMI 21.0-21.9, adult Chronic diarrhea Chronic GERD Chronic obstructive pulmonary disease (COPD) Chronic post-traumatic stress disorder (PTSD) COPD - Chronic obstructive pulmonary disease COPD without exacerbation Diarrhea Dietary counseling Epigastric pain Establishing care with new doctor, encounter for Exercise counseling MOON (generalized anxiety disorder) Gastropathy History of abdominal surgery History of colon polyps Hypotension Malnutrition Maternal family history of dementia Memory loss Nausea and vomiting S/P cholecystectomy Schatzki's ring Smoker Smoker Underweight due to inadequate caloric intake Vomiting Historical (more content not included)... Normal [facility] Comment on above: Result Comment: Elec tronically Signed By: Christin Hensley I\.br\Date and Time Signed: 02/25/24 11:03 EST H&P Updateon 02-25-2024 H&P Update H&P Update Patient: SAI PINEDA Age: 53 years Sex: Female : 1970 Associated Diagnoses: None Author: Butch SANDOVAL, Sandoval Frost Preoperative Information Chief compliant/Indication for procedure: Nausea, vomiting, and epigastric pain Chief Complaint as above Review of Systems All systems reviewed, negative except as mentioned above Physical Examination Vital Signs (last 24 hrs) Last Charted Temp Temporal 36.6 DegC (FEB 24:) Heart Rate Monitored 70 bpm (FEB 24:) SBP 130 mmHg (FEB 24:) DBP 75 mmHg (FEB 24) Weight 62.2 kg (DEC 10 09:14) General: in Nad Abdomen: Soft, NTND Impression and Plan Diagnosis: Nausea, vomiting, and epigastric pain -EGD Normal [facility] Main OR PACU II [place] Main OR PACU II Record Main OR PACU II Record PACU Phase II Document Type FT Summary Primary Physician: Sandoval Rae MD Finalized Date/Time: 02/25/24 11:30:19 Pt. Name: SAI PINEDA Domo SolomonB./Sex: 1970 Female Med Rec #: [id number] Physician: Sandoval Rae MD Financial #: [id number] Pt. Type: O Room/Bed: / Admit/Disch: 02/25/24 08:51:53 - Institution: Case Times PACU II FT Pre-Care Text: Identifies barriers to communication and implements measures to provide psychological support and determines knowledge level Develops individualized plan of care, and ensures continuity of care Maintains patient's dignity and privacy, and maintains patient confidentiality Identifies and reports philosophical, cultural, and spiritual beliefs and values Identifies individual values and wishes concerning care administers prescribed antibiotic therapy and immunizing agents as ordered, Evaluates postoperative tissue perfusion Implements thermoregulation measures, and monitors body temperature Evaluates postoperative respiratory status Evaluates postoperative cardiac status Evaluates postoperative neurological status Assesses pain control, collaborated in initiating patient-controlled analgesia and implements alternative methods of pain control Verifies allergies, administers prescribed medications and solutions, evaluates response to medications Entry 1 In PACU II 02/25/24 10:51:00 Discharge from PACU 02/25/24 11:21:00 II Outcomes Met? Yes Last Modified By: Christin Hensley I 02/25/24 11:30:16 Post-Care Text: The patient demonstrates knowledge of the expected response to the operative or invasive procedure The patient's care is consistent with the individualized perioperative plan of care The patient's right to privacy is maintained The patient's value system, lifestyle, ethnicity, and culture are considered, respected, and incorporated into the perioperative plan of care The patient participates in decisions affecting his or her perioperative plan of care. The patient is free from signs and symptoms of infection The patient has wound/tissue perfusion consistent with or improved from baseline levels established preoperatively The patient is at or returning to normothermia at the conclusion of the immediate postoperative period The patient's respiratory function is consistent with or improved from baseline levels established preoperatively The patient's cardiovascular status is consistent with or improved from baseline levels established preoperatively The patient's neurological status is consistent with or improved from baseline levels established preoperatively The patient demonstrates and/or reports adequate pain control throughout the perioperative period The patient received appropriate medication(s), safely administered during the perioperative period Finalized By: Christin Hensley I Document Signatures Signed By: Christin Hensley I 02/25/24 11:30 Normal [facility] Main OR Preoperative Recordo n 02-25-2024 Main OR Preoperative Record Main OR Preoperative Record Holding Area Document Type FT Summary Primary Physician: Sandoval Rae MD Finalized Date/Time: 02/25/24 09:16:52 Pt. Name: SAI PINEDA/Sex: 1970 Female Med Rec #: [id number] Physician: Sandoval Rae MD Financial #: [id number] Pt. Type: O Room/Bed: / Admit/Disch: 02/25/24 08:51:53 - Institution: Case Times Holding FT Pre-Care Text: Verifies consent for planned procedure, identifies individual values and wishes concerning care, includes family members in perioperative teaching Secures patient's records' belongings, and valuables, maintains patient's dignity and privacy, and maintains patient confidentiality Entry 1 In Holding 02/25/24 09:03:00 Outcomes Met? Yes Last Modified By: Mely Montilla RN 02/25/24 09:15:52 Post-Care Text: The patient participates in decisions affecting his or her perioperative plan of care The patient's right to privacy is maintained Surgery Checklist FT Entry 1 Patient Birthday, ID Band Procedure History and Physical, Identification: Check, Patient Verification: Surgical Consent, With Participation Patient NPO after Midnight: Yes Results Reviewed n/a Comments: Personal Items: Dentures, Jewelry Personal Items Metal to R toe, rings, Comment: dentures Limitations: Anxious Complaints of Pain: No Pain Comment: Denies Operative Site n/a Marking: Does Patient Smoke Yes If Yes to Smoking. 4 cigarettes per week Cigars or Cigarettes. How much per day? Patient states Yes Comment - Adult Armando- daughter postop adult Supervision supervision available Case Cancelled in No Holding Area see comments below for reason Last Modified By: Mely Montilla RN 02/25/24 09:16:47 Finalized By: Mely Montilla RN Document Signatures Signed By: Mely Montilla RN 02/25/24 09:16 Normal [facility] Operative Reporton Operative Report Operative Report Patient: SAI PINEDA Age: 53 years Sex: Female : 1970 Associated Diagnoses: None Author: Sandoval Rae MD Pre-Procedure Procedure Date 02/25/2024 10:48:00 . Procedure Type: Esophagogastroduodenoscopy with biopsy, removal of polyp/ tumor by snare technique. Procedure provider Performed by Sandoval Rae MD. Current history and physical Documented on chart. Informed Consent After discussing the rationale, risks and benefits, and alternatives to this procedure, the patient provided signed consent for the procedure. Pre-procedure diagnosis: anemia. Medications (Selected) Inpatient Medications Ordered Lactated Ringers IV Misty 1000 mL 1,000 mL: 1,000 mL, IV, 100 mL/hr, Routine, Start date 02/25/24 10:16:00 EST, 10 hour(s), Total volume (mL): 1,000, 62.2 kg, 1.71, m2 Sodium Chloride 0.9% 60 mL syringe 60 mL: 60 mL, IV, 20 mL/hr, Routine, Start date 02/25/24 6:44:00 EST, 3 hour(s), Total volume (mL): 60, 62.2 kg, 1.71, m2 Prescriptions Prescribed Carafate 1 gram Tab: 1 gm = 1 tab(s), Oral, QID, X 14 day(s), # 56 tab(s), Refills(s) 0, Pharmacy: [facility]/pharmacy #[id number], 169, cm, 02/21/24 8:47:00 EST, Height/Length Dosing, 62.2, kg, 02/21/24 8:47:00 EST, Weight Dosing Questran 4 g/9 g oral powder: = 1 packet(s), Oral, BID, # 60 EA, Refills(s) 2, [id number] 169, cm, 01/16/24 10:14:00 EDT, Height/Length Dosing, 63.9, kg, 01/16/24 10:14:00 EDT, Weight Dosing Spiriva Respimat 60 ACT 2.5 mcg/inh inhalation aerosol: = 2 inh, Inhalation, Daily, # 4 gm, Refills(s) 11, [id number], 169.7, cm, 11/26/23 15:32:00 EDT, Height/Length Dosing, 62.1, kg, 11/26/23 15:32:00 EDT, Weight Dosing Zofran 4 mg Tab: 4 mg = 1 tab(s), Oral, q8hr, PRN Nausea, # 10 tab(s), Refills(s) 0, [id number], 173, cm, 04/26/20 13:07:00 EST, Height/Length Dosing, 52.8, kg, 04/26/20 13:07:00 EST, Weight Dosing Zofran ODT 4 mg Tab-Dis: 4 mg = 1 tab(s), Oral, TID, # 15 tab(s), Refills(s) 0, [id number], 172, cm, 09/24/23 13:02:00 EDT, Height/Length Dosing, 61.2, kg, 09/24/23 13:02:00 EDT, Weight Dosing Zofran ODT 8 mg Tab-Dis: 8 mg = 1 tab(s), SubLingual, q8hr, PRN Nausea/Vomiting, # 24 tab(s), Refills(s) 0, [id number], 169, cm, 01/16/24 10:14:00 EDT, Height/Length Dosing, 63.9, kg, 01/16/24 10:14:00 EDT, Weight Dosing cloNIDine 0.2 mg Tab: 0.2 mg = 1 tab(s), Oral, Bedtime, # 30 tab(s), Refills(s) 1, [id number], 173, cm, 05/24/20 14:42:00 EST, Height/Length Dosing, 50.1, kg, 05/24/20 14:42:00 EST, Weight Dosing colestipol 1 g Tab: 2 gm = 2 tab(s), Oral, BID, with a full glass of water, # 120 tab(s), Refills(s) 1, [id number], 169, cm, 01/16/24 10:14:00 EDT, Height/Length Dosing, 63.9, kg, 01/16/24 10:14:00 EDT, Weight Dosing hydrOXYzine hydrochloride 50 mg oral tablet: 50 mg = 1 tab(s), Oral, TID, PRN as needed for anxiety, # 30 tab(s), Refills(s) 0, [id number], 173, cm, 04/26/20 13:07:00 EST, Height/Length Dosing, 52.8, kg, 04/26/20 13:07:00 EST, Weight Dosing lamotrigine 25 mg Tab: See Instructions, TAKE 1 TABLET BY MOUTH EVERY DAY IN THE AFTERNOON, # 30 tab(s), Refills(s) 0, Pharmacy: [id number], 169.7, cm, 11/26/23 15:32:00 EDT, Height/Length Dosing, 62.1, kg, 11/26/23 15:32:00 EDT, Weight Dosing mirtazapine 7.5 mg oral tablet: 7.5 mg = 1 tab(s), Oral, Bedtime, # 30 tab(s), Refills(s) 0, [id number], 169.7, cm, 10/03/23 9:38:00 EDT, Height/Length Dosing, 62.5, kg, 10/03/23 9:38:00 EDT, Weight Dosing omeprazole 20 mg Cap-DR: See Instructions, TAKE 1 CAPSULE BY MOUTH EVERY DAY, # 30 cap(s), Refills(s) 0, Pharmacy: [id number], 169, cm, 02/21/24 8:47:00 EST, Height/Length Dosing, 62.2, kg, 02/21/24 8:47:00 EST, Weight Dosing ondansetron 4 mg Dis Tab: 4 mg = 1 tab(s), Oral, q6hr, PRN Nausea/Vomiting, # 30 tab(s), Refills(s) 0, [id number], 169.7, cm, 11/26/23 15:32:00 EDT, Height/Length Dosing, 62.1, kg, 11/26/23 15:32:00 EDT, Weight Dosing ondansetron 8 mg Dis Tab: See Instructions, DISSOLVE 1 TABLET ON THE TONGUE EVERY 8 HOURS NEEDED FOR NAUSEA AND VOMITING, # 24 tab(s), Refills(s) 0, [id number] 169, cm, 02/18/24 11:55:00 EST, Height/Length Dosing, 61.8, kg, 02/18/24 11:55:00 EST, Weight D... promethazine 25 mg Tab: 25 mg = 1 tab(s), Oral, TID, # 15 tab(s), Refills(s) 0, [id number], 169, cm, 01/16/24 10:14:00 EDT, Height/Length Dosing, 63.9, kg, 01/16/24 10:14:00 EDT, Weight Dosing promethazine 25 mg Tab: See Instructions, TAKE 1 TABLET BY MOUTH THREE TIMES A DAY, # 30 tab(s), Refills(s) 1, Pharmacy: [facility] #[id number], 169, cm, 02/18/24 11:55:00 EST, Height/Length Dosing, 61.8, kg, 02/18/24 11:55:00 EST, Weight Dosing Documented Medications Documented Protonix 40 mg Tab-DR: Oral, 0 Refill(s), Refills(s) 0 Spiriva Respimat 10 ACT 2.5 mcg/inh inhalation aerosol: = 2 puff(s), Inhalation, Daily, Refi (more content not included)... Normal [facility] Comment on above: Result Comment: Elec tronically Signed By: Butch SANDOVAL, Sandoval Frost\.br\Date and Time Signed: 02/25/24 10:51 EST Other Comment: Linda mendosa Attachment - attachment storage system not supported [id number] Can be viewed in source systemMissing Attachment - attachment storage system not supported [id number] Can be viewed in source systemMissing Attachment - attachment storage system not supported [id number] Can be viewed in source systemMissing Attachment - attachment storage system not supported [id number] Can be viewed in source systemMissing Attachment - attachment storage system not supported [id number] Can be viewed in source systemMissing Attachment - attachment storage system not supported [id number] Can be viewed in source systemMissing Attachment - attachment storage system not supported [id number] Can be viewed in source systemMissing Attachment - attachment storage system not supported [id number] Can be viewed in source systemMissing Attachment - attachment storage system not supported [id number] Can be viewed in source systemMissing Attachment - attachment storage system not supported [id number] Can be viewed in source system Ambulatory Visit Summaryon 1 04-23-2023 Ambulatory Visit Summary Ambulatory Visit Summary SAI PINEDA :1970 Visit Date:02/21/2024 Ambulatory Visit Instructions Your Diagnosis Nausea and vomiting Epigastric pain Chronic diarrhea Gastropathy History of colon polyps Schatzki's ring Your Care Team Attending Physician - Butch SANDOVAL, Sandoval Frost Primary Care Physician - Lala Horner This Is Your Medications List Contact prescribing physician if questions or concerns albuterol (Ventolin HFA 90 mcg/inh Aerosol) albuterol (albuterol 0.083% Inh Misty 3 mL) cholestyramine (Questran 4 g/9 g oral powder) clonidine (cloNIDine 0.2 mg Tab) colestipol (colestipol 1 g Tab) hydrOXYzine (hydrOXYzine hydrochloride 50 mg oral tablet) lamotrigine (lamotrigine 25 mg Tab) mirtazapine (mirtazapine 7.5 mg oral tablet) nicotine (nicotine 21 mg/24 hr Transderm ER Film) omeprazole (omeprazole 20 mg Cap-DR) ondansetron (Zofran 4 mg Tab) ondansetron (Zofran ODT 4 mg Tab-Dis) ondansetron (Zofran ODT 8 mg Tab-Dis) ondansetron (ondansetron 4 mg Dis Tab) ondansetron (ondansetron 8 mg Dis Tab) pantoprazole (Protonix 40 mg Tab-DR) promethazine (promethazine 25 mg Tab) promethazine (promethazine 25 mg Tab) tiotropium (Spiriva Respimat 10 ACT 2.5 mcg/inh inhalation aerosol) tiotropium (Spiriva Respimat 60 ACT 2.5 mcg/inh inhalation aerosol) Procedures Performed Colonoscopy (05/08/2019), EGD - Esophagogastroduodenoscopy (05/08/2019), CT - Computerized tomography (01/18/2019), Echocardiogram (11/14/2016), Cardiovascular stress testing (11/01/2016), Appendectomy, delivery, Cholecystectomy, Foot repair, Oral surgery, Total hysterectomy. Discharge Vitals Heart Rate (Peripheral) 80 Blood Pressure 134/83 Height 169 cm Height 67 in Weight 62.2 kg Weight 137.127 lb BMI 21.78 Medications What How Much When Why Instructions Unchanged albuterol (albuterol 0.083% Inh Misty 3 mL) 3 Milliliter Inhalation Every 6 hours Q6H and PRN Contact prescribing physician if questions or concerns Unchanged albuterol (Ventolin HFA 90 mcg/ inh Aerosol) 2 Puffs Inhalation Every 4 hours as needed for for wheezing Contact prescribing physician if questions or concerns Unchanged cholestyramine (Questran 4 g/ 9 g oral powder) 1 Packets By Mouth 2 times a day Contact prescribing physician if questions or concerns Unchanged clonidine (cloNIDine 0.2 mg Tab) 1 Tablets By Mouth At bedtime Contact prescribing physician if questions or concerns Unchanged colestipol (colestipol 1 g Tab) 2 Tablets By Mouth 2 times a day with a full glass of water Contact prescribing physician if questions or concerns Unchanged hydrOXYzine (hydrOXYzine hydrochloride 50 mg oral tablet) 1 Tablets By Mouth 3 times a day as needed for as needed for anxiety MOON (generalized anxiety disorder) Contact prescribing physician if questions or concerns Unchanged lamotrigine (lamotrigine 25 mg Tab) See instructions TAKE 1 TABLET BY MOUTH EVERY DAY IN THE AFTERNOON Contact prescribing physician if questions or concerns Unchanged mirtazapine (mirtazapine 7.5 mg oral tablet) 1 Tablets By Mouth At bedtime Contact prescribing physician if questions or concerns Unchanged nicotine (nicotine 21 mg/ 24 hr Transderm ER Film) Contact prescribing physician if questions or concerns Unchanged omeprazole (omeprazole 20 mg Cap-DR) See instructions TAKE 1 CAPSULE BY MOUTH EVERY DAY Contact prescribing physician if questions or concerns Unchanged ondansetron (ondansetron 4 mg Dis Tab) 1 Tablets By Mouth Every 6 hours as needed for Nausea/Vomiting Contact prescribing physician if questions or concerns Unchanged ondansetron (ondansetron 8 mg Dis Tab) See instructions DISSOLVE 1 TABLET ON THE TONGUE EVERY 8 HOURS NEEDED FOR NAUSEA AND VOMITING Contact prescribing physician if questions or concerns Unchanged ondansetron (Zofran 4 mg Tab) 1 Tablets By Mouth Every 8 hours as needed for Nausea Nausea Contact prescribing physician if questions or concerns Unchanged ondansetron (Zofran ODT 4 mg Tab-Dis) 1 Tablets By Mouth 3 times a day Contact prescribing physician if questions or concerns Unchanged ondansetron (Zofran ODT 8 mg Tab-Dis) 1 Tablets Sublingual Every 8 hours as needed for Nausea/Vomiting Contact prescribing physician if questions or concerns Unchanged pantoprazole (Protonix 40 mg Tab-DR) Oral, 0 Refill(s) Contact prescribing physician if questions or concerns Unchanged promethazine (promethazine 25 mg Tab) 1 Tablets By Mouth 3 times a day Contact prescribing physician if questions or concerns Unchanged promethazine (promethazine 25 mg Tab) See instructions TAKE 1 TABLET BY MOUTH THREE TIMES A DAY Contact prescribing physician if questions or concerns Unchanged tiotropium (Spiriva Respimat 10 ACT 2.5 mcg/ inh inhalation aerosol) 2 Puffs Inhalation Every day Contact prescribing physician if questions or concerns Unchanged tiotropium (Spiriva Respimat 60 ACT 2.5 mcg/ inh inhalation aerosol) (more content not included)... Normal [facility] Gastroenterology Office/Clin ic Noteon 02-21-2024 Gastroenterology Office/Clinic Note Gastroenterology Office/Clinic Note Chief Complaint Nausea and discuss alternate testing HPI Staff This is a 53 year old female who presents today for a 4 week follow-up for c/o epigastric pain and nausea & vomiting. Discuss alternate testing that doesnt have barium. XR not completed as the patient was not able to keep down the prep so we did order CTE and patient was not willing to proceed with barium. She would like to discuss capsule. (Had one completed at [facility] 2021)- results below Last visit w/ Dr Rae History of Present Illness pt with weight loss, throw up, and diarrhea capsule endoscopy done at [facility] and was found to have stomach going inside small bowel tissues gained 43 pounds since then nausea is debilitating dry heaves and vomits food she ate before on zofran gastric emptying done in the past feels symptoms are coming back symptoms could come every 1-2 weeks and could last for 4-5 days Assessment/Plan 1. 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 - 2cm [...] transverse duodenum with a positive pillow sign. FINAL DIAGNOSIS Result Comments: A. Duodenum, biopsy: - Incidental and minute tubular adenoma, negative for high grade dysplasia. See comment. - Duodenal mucosa with no diagnostic alterations. B. Stomach, biopsy: - Oxyntic and antral mucosa with no diagnostic alteration. - No morphologic evidence of H. Pylori microorganisms. C. Stomach, polypectomy: - Hyperplastic polyp. Small bowel enteroscopy 04/04/22 @ [facility] Findings: Patchy atrophic mucosa was found in [...] clips were successfully placed (MR conditional). 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 There was no bleeding at the end of the maneuver. Exam of the jejunum was otherwise normal. Impression: - Atrophic mucosa. - Jejunal polyp(s). Resected a (more content not included)... Normal [facility] Comment on above: Result Comment: Elec tronically Signed By: Butch SANDOVAL, Sandoval Frost\.br\Date and Time Signed: 02/21/24 09:10 EST Ambulatory Visit Summaryon 1 04-20-2023 Ambulatory Visit Summary Ambulatory Visit Summary SAI PINEDA :1970 Visit Date:02/18/2024 Ambulatory Visit Instructions Your Diagnosis Memory loss Maternal family history of dementia Nausea and vomiting Schatzki's ring Diarrhea Your Care Team Attending Physician - Lala Horner Primary Care Physician - Lala Horner This Is Your Medications List albuterol (Ventolin HFA 90 mcg/inh Aerosol) albuterol (albuterol 0.083% Inh Misty 3 mL) cholestyramine (Questran 4 g/9 g oral powder) clonidine (cloNIDine 0.2 mg Tab) colestipol (colestipol 1 g Tab) hydrOXYzine (hydrOXYzine hydrochloride 50 mg oral tablet) lamotrigine (lamotrigine 25 mg Tab) mirtazapine (mirtazapine 7.5 mg oral tablet) nicotine (nicotine 21 mg/24 hr Transderm ER Film) omeprazole (omeprazole 20 mg Cap-DR) ondansetron (Zofran 4 mg Tab) ondansetron (Zofran ODT 4 mg Tab-Dis) ondansetron (Zofran ODT 8 mg Tab-Dis) ondansetron (ondansetron 4 mg Dis Tab) ondansetron (ondansetron 8 mg Dis Tab) pantoprazole (Protonix 40 mg Tab-DR) promethazine (promethazine 25 mg Tab) promethazine (promethazine 25 mg Tab) tiotropium (Spiriva Respimat 10 ACT 2.5 mcg/inh inhalation aerosol) tiotropium (Spiriva Respimat 60 ACT 2.5 mcg/inh inhalation aerosol) Procedures Performed Colonoscopy (05/08/2019), EGD - Esophagogastroduodenoscopy (05/08/2019), CT - Computerized tomography (01/18/2019), Echocardiogram (11/14/2016), Cardiovascular stress testing (11/01/2016), Appendectomy, delivery, Cholecystectomy, Foot repair, Oral surgery, Total hysterectomy. Discharge Vitals Temperature (Tympanic) 36.6 ???C Heart Rate (Peripheral) 112 Respiratory Rate 18 Blood Pressure 132/80 Height 169 cm Height 67 in Weight 61.8 kg Weight 136.246 lb BMI 21.64 What to do next Someone Will Contact You Regarding These Appointments [facility] External Ambulatory Referral, Neurology, [facility] office, 02/18/24 12:19:00 EST, Memory loss Maternal family history of dementia Medications What How Much When Why Instructions New nicotine (nicotine 21 mg/ 24 hr Transderm ER Film) Changed tiotropium (Spiriva Respimat 10 ACT 2.5 mcg/ inh inhalation aerosol) 2 Puffs Inhalation Every day Changed tiotropium (Spiriva Respimat 60 ACT 2.5 mcg/ inh inhalation aerosol) 2 Inhalation Inhalation Every day Unchanged albuterol (albuterol 0.083% Inh Misty 3 mL) 3 Milliliter Inhalation Every 6 hours Q6H and PRN Unchanged albuterol (Ventolin HFA 90 mcg/ inh Aerosol) 2 Puffs Inhalation Every 4 hours as needed for for wheezing Unchanged cholestyramine (Questran 4 g/ 9 g oral powder) 1 Packets By Mouth 2 times a day Unchanged clonidine (cloNIDine 0.2 mg Tab) 1 Tablets By Mouth At bedtime Unchanged colestipol (colestipol 1 g Tab) 2 Tablets By Mouth 2 times a day with a full glass of water Unchanged hydrOXYzine (hydrOXYzine hydrochloride 50 mg oral tablet) 1 Tablets By Mouth 3 times a day as needed for as needed for anxiety MOON (generalized anxiety disorder) Unchanged lamotrigine (lamotrigine 25 mg Tab) See instructions TAKE 1 TABLET BY MOUTH EVERY DAY IN THE AFTERNOON Unchanged mirtazapine (mirtazapine 7.5 mg oral tablet) 1 Tablets By Mouth At bedtime Unchanged omeprazole (omeprazole 20 mg Cap-DR) See instructions TAKE 1 CAPSULE BY MOUTH EVERY DAY Unchanged ondansetron (ondansetron 4 mg Dis Tab) 1 Tablets By Mouth Every 6 hours as needed for Nausea/Vomiting Unchanged ondansetron (ondansetron 8 mg Dis Tab) See instructions DISSOLVE 1 TABLET ON THE TONGUE EVERY 8 HOURS NEEDED FOR NAUSEA AND VOMITING Pickup at [facility]/pharmacy #[id number] Unchanged ondansetron (Zofran 4 mg Tab) 1 Tablets By Mouth Every 8 hours as needed for Nausea Nausea Unchanged ondansetron (Zofran ODT 4 mg Tab-Dis) 1 Tablets By Mouth 3 times a day Unchanged ondansetron (Zofran ODT 8 mg Tab-Dis) 1 Tablets Sublingual Every 8 hours as needed for Nausea/Vomiting Unchanged pantoprazole (Protonix 40 mg Tab-DR) Oral, 0 Refill(s) Unchanged promethazine (promethazine 25 mg Tab) 1 Tablets By Mouth 3 times a day Unchanged promethazine (promethazine 25 mg Tab) See instructions TAKE 1 TABLET BY MOUTH THREE TIMES A DAY Pickup at [id number] Pharmacy Information [id number]: [address], [place] [id number] [phone] Allergies No Known Allergies Problems Ongoing - [...] surgery History of colon polyps Hypotension Malnutrition Maternal family history of (more content not included)... Normal [facility] Family Medicine Office/Clini c Noteon 02-18-2024 Family Medicine Office/Clinic Note Family Medicine Office/Clinic Note Chief Complaint N&V & Diarrhea HPI Staff Sai is a 53 year old female presenting with diarrhea, vomiting. AMILCAR 11/27/23 pt here for the same reason. Sent home with stool sample supplies. Pt did see [facility] 01/16/24 for diarrhea & N&V. Tx'd w/[facility] did order CTE, however pt no showed due to not wanting to drink barium. Called our office requesting refill of Zofran & promethazine 02/12/24 due to nausea Pt states she does not remember going to see [facility]. She has been having memory issues. History of Present Illness pt presents today with continue nausea, vomiting and diarrhea. also having memory loss issues Review of Systems PHQ Score Initial Depression Screen Score: 0 SCORE Physical Exam Vitals & Measurements T: 36.6 ???C(Tympanic) HR: 112(Peripheral) RR: 18 BP: 132/80 SpO2: 95% HT: 67 in HT: 169 cm WT: 61.8 kg WT: 136.246 lb BMI: 21.64 General: alert, no acute distress ENMT: oral mucosa moist, no pharyngeal erythema or exudate Cardiovascular: regular rate and rhythm, normal peripheral perfusion Respiratory: Lungs CTA, respirations non labored Extremities: no deformity, no trauma Neurological: oriented x 4, LOC appropriate for age, CN II-XII intact, motor strength equal & normal bilaterally, speech normal Assessment/Plan 1. Memory loss (R41.3: Other amnesia) pt states she is having severe memory loss issues. her daughter is present with her today and states I'm here to try to help her sort all of this out. pt becomes tearful and says I can remember anything. Denies headaches. she says she was seen by DESMOND several years ago for memory issues, but these symptoms are much worse. will send referral for neuro consult. her mother has dementia. Ordered: [facility] External Ambulatory Referral 2. Maternal family history of dementia (Z81.8: Family history of other mental and behavioral disorders) mother has dementia Ordered: [facility] External Ambulatory Referral 3. Nausea and vomiting (R11.2: Nausea with vomiting, unspecified) pt continue having nausea and vomiting was seen by GI. they ordered a test with barium and she canceled it. they then reviewed her notes from [facility] and was ordered CT. But patient was a no show for appointment on 02/04 ( she states I didn't even know I had an appointment). she also canceled her CT scan but thought she was canceling the test with barium. She is not a good historian and I'm having trouble getting any helpful information out of her. I then questioned her about the medication that GI prescribed. She says I took it once. and honestly forgot about it. She isn't even sure if she still has it. I encouraged her daughter to call GI and explain what is going on and get her scheduled for follow up . This is beyond my scope of practice. I will send refills on zofran and phenergan while she awaits getting back to GI. I encouraged her and daughter to keep this appointment and to complete any testing that they may order. 4. Schatzki's ring (K22.2: Esophageal obstruction) see above 5. Diarrhea (R19.7: Diarrhea, unspecified) see above 6. BMI 21.0-21.9, adult (Z68.21: Body mass index [BMI] 21.0-21.9, adult) BMI education. discussed eating small frequent meals, staying hydrated. and increasing protein intake 7. Smoker (F17.200: Nicotine dependence, unspecified, uncomplicated) consider not smoking Orders: ondansetron, See Instructions, DISSOLVE 1 TABLET ON THE TONGUE EVERY 8 HOURS NEEDED FOR NAUSEA AND VOMITING, # 24 tab(s), Refills(s) 0, [id number] 169, cm, 02/18/24 11:55:00 EST, Height/Length Dosing, 61.8, kg, 02/18/24 11:55:00 EST, Weight D... promethazine, See Instructions, TAKE 1 TABLET BY MOUTH THREE TIMES A DAY, # 30 tab(s), Refills(s) 1, [id number] 169, cm, 02/18/24 11:55:00 EST, Height/Length Dosing, 61.8, kg, 02/18/24 11:55:00 EST, Weight Dosing Follow-up No qualifying data available Problem List/Past Medical History Ongoing Apnea, sleep Bipolar 1 disorder, mixed, moderate BMI 21.0-21.9, adult Chronic diarrhea Chronic GERD Chronic obstructive pulmonary disease (COPD) Chronic post-traumatic stress disorder (PTSD) COPD - Chronic obstructive pulmonary disease COPD without exacerbation Diarrhea Dietary counseling Epigastric pain Establishing care with new doctor, encounter for Exercise counseling MOON (generalized anxiety disorder) Gastropathy History of abdominal surgery History of colon polyps Hypotension Malnutrition Maternal family history of dementia Memory loss Nausea and vomiting S/P cholecystectomy Schatzki's ring Smoker Smoker Underweight due to inadequate caloric intake Vomiting Historical Alcoholism Stool incontinence Unspecified fracture of left foot, subsequent encounter for fracture with routine healing Procedure/Surgical History Colonoscopy (05/08/2019), EGD - Esophagogastroduodenoscopy (04/19 (more content not included)... Normal [facility] Comment on above: Result Comment: Elec tronically Signed By: Lala Horner\.br\Date and Time Signed: 02/18/24 13:38 EST Gastroenterology Office/Clin ic Noteon 01-16-2024 Gastroenterology Office/Clinic [...] start: Years ago. Had capsule done at [facility] and surgery. Dr Tiffani Morales. Constant? [...] up, and diarrhea capsule endoscopy done at [facility] and was found to have stomach [...] Oral, TID, (more content not included)... Normal [facility] Comment on above: Result Comment: Elec tronically Signed By: Butch SANDOVAL, Sandoval Vega.br\Date and Time Signed: 01/16/24 10:34 EDT Family [...] to get in, will send referral to [facility] 2. Vomiting (R11.10: Vomiting, unspecified) pt is asking for refill on omeprazole 3. Smoker (F17.200: Nicotine dependence, unspecified, uncomplicated) consider not smoking 4. BMI 21.0-21.9, adult (Z68.21: Body mass index [BMI] 21.0-21.9, adult) BMI education given Orders: lamotrigine, See Instructions, TAKE 1 TABLET BY MOUTH EVERY DAY IN THE AFTERNOON, # 30 tab(s), Refills(s) 0, [id number], 169.7, cm, 10/03/23 9:38:00 EDT, Height/Length Dosing, 62.5, kg, 10/03/23 9:38:00 EDT, Weight Dosing lamotrigine, See Instructions, TAKE 1 TABLET EVERY MORNING, # 30 tab(s), Refills(s) 0, [id number], 169.7, cm, 10/03/23 9:38:00 EDT, Height/Length Dosing, 62.5, kg, 10/03/23 9:38:00 EDT, Weight Dosing lamotrigine, See Instructions, TAKE 1 TABLET BY MOUTH EVERY DAY IN THE AFTERNOON, # 30 tab(s), Refills(s) 0, Pharmacy: [id number], 169.7, cm, 11/26/23 15:32:00 EDT, Height/Length Dosing, 62.1, kg, 11/26/23 15:32:00 EDT, Weight Dosing nitrofurantoin, 100 mg = 1 cap(s), Oral, BID, X 7 day(s), # 14 cap(s), Refills(s) 0, [id number], 169.7, cm, 11/26/23 15:32:00 EDT, Height/Length Dosing, 62.1, kg, 11/26/23 15:32:00 EDT, Weight Dosing omeprazole, 20 mg = 1 cap(s), Oral, Daily, # 30 cap(s), Refills(s) 0, [id number], 169.7, cm, 10/03/23 9:38:00 EDT, Height/Length Dosing, 62.5, kg, 10/03/23 9:38:00 EDT, Weight Dosing omeprazole, See Instructions, TAKE 1 CAPSULE BY MOUTH EVERY DAY, # 30 cap(s), Refills(s) 0, Pharmacy: [facility] [id number], 169.7, cm, 11/26/23 15:32:00 EDT, Height/Length Dosing, 62.1, kg, 11/26/23 15:32:00 EDT, Weight Dosing tiotropium, = 2 inh, Inhalation, Daily, # 4 gm, Refills(s) 11, [id number], 169.7, cm, 11/26/23 15:32:00 EDT, [...] tab(s), Or (more content not included)... Normal [facility] Comment on above: Result Comment: Elec tronically [...] hours as needed for Nausea/Vomiting Pickup at [facility]/pharmacy #[id number] Unchanged ondansetron (Zofran 4 mg Tab) 1 Tablets By Mouth Every 8 hours as needed for Nausea Nausea Unchanged ondansetron (Zofran ODT 4 mg Tab-Dis) 1 Tablets By Mouth 3 times a day Unchanged pantoprazole (Protonix 40 mg Tab-DR) 1 Tablets By Mouth Every day Unchanged tiotropium (Spiriva Respimat 10 ACT 2.5 mcg/ inh inhalation aerosol) 2 Puffs Inhalation Every day Pharmacy Information [facility]/pharmacy #[id number]: [address], [place] [phone] Allergies No Known Allergies Problems Ongoing - [...] you for choosing us for your care. Normal [facility] ED Note-Physicianon 10-21-19 ED Note-Physician ED Note-Physician [...] NS 1000 ml Bolus, 1000 mL, IV [id number] [F] 25 mg + Sodium Chloride 0.9% [...] CHANCE SERRANO In 3 days 09/27/[address] [place] [phone] Business (1) Additional Instructions: Patient Education Urinary [...] made to ensure accuracy, however, inadvertently computerized scheduling analyst mistakes may be present. Appropriate healthcare PPE [...] to inadequa (more content not included)... Normal [facility] Comment on above: Result Comment: Elec tronically [...] visit: month or so ago Last provider: Chance Koenig [facility] Any recent labs: IN ER 7/ Health Maintenance UTD: Colonoscopy: several Mammogram: due Pelvic/Pap: hysterectomy yrs ago Acute: Current issues/complaints: fu UTI from ER 09/23, anxiety bad but going to see a [...] adult 10/11/19 (more content not included)... Normal [facility] Comment on above: Result Comment: Elec tronically [...] Locations R1: This test was performed at: [facility], [address] [place] [address], [facility] , , [facility] Comment on above: Performed By: #### 2 [id number] ####[facility] [address] [place] [address] CHEMISTRYOrdered By: SYSTEM SYSTEM on 09-24-2023 Albumin [...] Bilirubin Ql (U) Negative Normal Negativemg/ dL [facility] UA Auto SS Clarity (U) Clear (09/24/23 1:19 PM) Normal Clear [facility] UA Auto SS Color (U) Yellow 1 (09/24/23 1:19 PM) Normal Yellow [facility] UA Auto SS Comment on above: Interpretive Data: M icroscopic readings are only performed on those samples that meet specific criteria set forth by [facility]. Epithelial cells.squamous Auto (Urine sed) [#/Area] 0-2 graded/HPF Invalid Interpretation Code [facility] UA Auto SS Glucose Ql (U) Negative Normal Negativemg/ dL [facility] UA Auto SS Hemoglobin Auto test strip [...] UA Auto SS Work Phone: Zi 05-08-2022 [facility] Telephone ([id number]) PINEDAASI ([id number]) 1970 F Date Time Provider Department 05/08/22 TIFFANI MORALES [id number] During your visit today, we recorded the following information about you: Eva Chong 05/08/2022 10:45 AM Signed 05/08/22 Patient calling to see if Dr Morales will write her a script for Zofran nausea medication strips. [facility] Pharmacy in [place] [id number] Eva Covarrubias RN 05/11/2022 10:05 AM Signed [...] Fully Assessed Reason for Visit: Patient Question [5786] Order(s):ondansetron orally disintegrating (ZOFRAN ODT) 8 mg [...] Status:Closed by TIFFANI MORALES on 05/10/22 Normal [facility] COPPER, SERUM or PLASMAon Copper, Serum 129 ug/dL Normal 80-158 [facility] Comment on above: Result Comment: Dete ction Limit = 5 Performed By: #### C OPPER #### [facility] [address] [place] [id number] [address] Prince Olivas FATTY ACID PROFILEon 023 a-Linolenic Acid C18:3w3 81 nmol/mL Normal 20-200 [facility] Comment on above: Performed By: #### M MA2 #### [facility] [address] [address] [address] Prince Olivas Arachidic Acid C20:0 31 nmol/mL Normal 8-43 [facility] Comment on above: Performed By: #### M MA2 #### [facility] [address] [address] [address] Prince Olivas Arachidonic Acid, C20:4w6 943 nmol/mL Normal 310-1420 [facility] Comment on above: Performed By: #### M MA2 #### [facility] [address] [address] [address] Prince Olivas DHA, C22:6w3 85 nmol/mL Normal 45-365 [facility] Comment on above: Performed By: #### M MA2 #### [facility] [address] [address] [address] Prince Olivas Docosenoic Acid C22:1 5 nmol/mL Normal 1-10 [facility] Comment on above: Performed By: #### Marine MA2 #### [facility] [address] [address] [address] Prince Olivas DPA, C22:5w3 58 nmol/mL Normal 13-75 [facility] Comment on above: Performed By: #### M MA2 #### [facility] [address] [address] [address] Prince Olivas DPA, C22:5w6 18 nmol/mL Normal 6-55 [facility] Comment on above: Performed By: #### Marine MA2 #### [facility] [address] [address] [address] Prince Olivas DTA, C22:4w6 28 nmol/mL Normal 10-40 [facility] Comment on above: Performed By: #### M MA2 #### [facility] [address] [address] [address] Prince Olivas EER Fatty Acid Profile, [facility] See Note Normal [facility] Comment on above: Result Comment: Auth orized individuals can access the [facility] Enhanced Report using the following link: [email or web address] Performed By: #### M MA2 #### [facility] [address] [address] [address] Prince Olivas EPA, C20:5w3 90 nmol/mL Normal 8-130 [facility] Comment on above: Performed By: #### M MA2 #### [facility] [address] [address] [address] Prince Olivas g-Linolenic Acid C18:3w6 139 nmol/mL Critically high 10-120 [facility] Comment on above: Performed By: #### M MA2 #### [facility] [address] [address] [address] Prince Olivas h-p-Smusdiscm Acid C20:3w6 211 nmol/mL Normal 45-340 [facility] Comment on above: Performed By: #### M MA2 #### [facility] [address] [address] [address] Prince Olivas Hexadecenoic Acid C16:1w9 56 nmol/mL Normal 14-95 [facility] Comment on above: Performed By: #### M MA2 #### [facility] [address] [address] [address] Prince Olivas Image . Normal [facility] Comment on above: Performed By: #### M MA2 #### [facility] [address] [address] [address] Prince Olivas Interp, Fatty Acids Profile SP See Note Normal [facility] Comment on above: Result Comment: Incr eased concentration of omega-6 gamma- linolenic acid, possibly reflecting dietary artifacts. INTERPRETIVE INFORMATION: Fatty Acids Profile, Essential Ser/Plas This test does not screen for disorders of peroxisomal biogenesis/function. This test was developed and its performance characteristics determined by [employer]. It has not been cleared or approved by the [place] Food and Drug Administration. This test was performed in a CLIA certified laboratory and is intended for clinical purposes. Performed By: #### M MA2 #### [facility] [address] [address] [address] Prince Olivas Lauric Acid C12:0 12 nmol/mL Normal 1-200 [facility] Comment on above: Performed By: #### M MA2 #### [facility] [address] [place], [place] [address] Dr. Prince Olivas Linoleic Acid C18:2w6 3844 nmol/mL Normal 8356-4534 [facility] Comment on above: Performed By: #### Marine MA2 #### [facility] [address] [address] [address] Prince Olivas [place] Acid C20:3w9 29 nmol/mL Normal 1-35 [facility] Comment on above: Performed By: #### Marine MA2 #### [facility] [address] [address] [address] Prince Olivas Myristic Acid C14:0 178 nmol/mL Normal 20-520 [facility] Comment on above: Performed By: #### Marine MA2 #### [facility] [address] [address] [address] Prince Olivas Nervonic Acid C24:1w9 138 nmol/mL Normal 35-145 [facility] Comment on above: Performed By: #### Marine MA2 #### [facility] [address] [address] [address] Prince Olivas Oleic Acid C18:1w9 2898 nmol/mL Normal 740-3900 [facility] Comment on above: Performed By: #### Marine MA2 #### [facility] [address] [address] [address] Prince Olivas Palmitic Acid C16:0 3316 nmol/mL Normal 8822-0682 [facility] Comment on above: Performed By: #### Marine MA2 #### [facility] [address] [place], [place] [address] Dr. Prince Olivas Palmitoleic Acid C16:1w7 355 nmol/mL Normal 35-580 [facility] [facility] Comment on above: Performed By: #### Marine MA2 #### [facility] [address], [place] [address] Dr. Prince Olivas Stearic Acid C18:0 1072 nmol/mL Normal 280-1250 [facility] Comment on above: Performed By: #### Marine MA2 #### [facility] [address] [address] [address] Prince Olivas Total Fatty Acids 13.7 mmol/L Normal 4.5-15.0 [facility] Comment on above: Performed By: #### M MA2 #### [facility] [address] [address] [address] Prince Olivas Total Monounsaturated Acid 3.6 mmol/L Normal 0.9-4.7 [facility] Comment on above: Performed By: #### M MA2 #### [facility] [address] [address] [address] Prince Olivas Total Polyunsaturated Acid 5.5 mmol/L Normal 2.1-6.2 [facility] Comment on above: Performed By: #### M MA2 #### [facility] [address] [address] [address] Prince Olivas Total Saturated Acid 4.6 mmol/L Normal 1.5-5.3 [facility] Comment on above: Performed By: #### M MA2 #### [facility] [address] [address] [address] Prince Olivas Total w3 0.31 mmol/L Normal 0.12-0.55 [facility] Comment on above: Performed By: #### M MA2 #### [facility] [address] [address] [address] Prince Olivas Total w6 5.2 mmol/L Normal 1.8-5.7 [facility] Comment on above: Performed By: #### M MA2 #### [facility] [address] [address] [address] Prince Olivas Triene Tetraene Ratio 0.031 Normal 0.004-0.051 [facility] Comment on above: Performed By: #### M MA2 #### [facility] [address] [address] [address] Prince Olivas Vaccenic Acid C18:1w7 149 nmol/mL Normal 50-250 [facility] Comment on above: Performed By: #### M MA2 #### [facility] [address] [place] [address] Dr. Prince Olivas VITAMIN Aon 04-06-2022 Vitamin A 54.9 ug/dL Normal 20.1-62.0 [facility] Comment on above: Result Comment: Refe rence intervals for vitamin A determined from [facility] internal studies. Individuals with vitamin A less than 20 ug/dL are considered vitamin A deficient and those with serum concentrations less than 10 ug/dL are considered severely deficient. . This test was developed and its performance characteristics determined by [facility]. It has not been cleared or approved by the Food and Drug Administration. Performed By: #### M MA2 #### [facility] [address] [place] [address] Dr. Prince Olivas VITAMIN Luciano 04-06-2022 Vitamin E (Alpha T) 9.9 mg/L Normal 7.0-25.1 [facility] Comment on above: Performed By: #### S SKYLER #### [facility] [address] [place] [address] Dr. Prince Olivas Vitamin E (Gamma T) 2.1 mg/L Normal 0.5-5.5 [facility] Comment on above: Result Comment: Refe rence intervals for alpha and gamma- tocopherol determined from National Health and Nutrition Examination Survey, 1901-0097. Individuals with alpha-tocopherol levels less than 5.0 mg/L are considered vitamin E deficient. Performed By: #### S ELEDISON #### [facility] [address] [place] [address] Dr. Prince Olivas ZINC SERUM OR PLASMAon 04-06 Zinc, Plasma or Serum 75 ug/dL Normal 44-115 [facility] Comment on above: Result Comment: Dete ction Limit = 5 Performed By: #### L IPID, CMP #### [facility] [address] [place] [address] Dr. Prince Pinon 04-05-2022 YAMILETH Telephone (GASTA5) SAI PINEDA ([id number]) 1970 F Date Time Provider Department 04/05/22 [...] Status:Closed by TIFFANI MORALES on 04/05/22 Normal [facility] METHYLMALONIC ACID (MMA)on 0 - Methylmalonic Acid, Serum 498 nmol/L Critically high 0-378 [facility] Comment on above: Performed By: #### M MA2 #### [facility] [address] [place] [address] Dr. Prince Olivas ANES POSTPROC EVALon 023 ANES POSTPROC EVAL HNO ID: [id number] Author: Altagracia Salvador MD Service: ? Author [...] Morales MD; Altagracia Salvador MD; Frederick Chaves APRN.ENVIRONMENTAL TEST TECHNICIAN Responsible Provider: Altagracia Salvador MD Anesthesia Type: [...] with this procedure. Documented by Frederick Chaves APRN.ENVIRONMENTAL TEST TECHNICIAN 04/04/2022 3:31 PM EST SIGNATURE: Altagracia Salvador MD PATIENT NAME: Sai Pineda DATE: April 04, 2022 TIME: 3:51 PM CSN: [id number] Normal [facility] ANES PRE-OPon 04-04-2022 ANES PRE-OP HNO ID: [id number] Author: Altagracia Salvador MD Service: ? Author Type: Anesthesiologist Type: Anesthesia Preprocedure Evaluation Filed: 04/04/2022 12:56 PM Note Text: ANESTHESIOLOGY DAY OF SURGERY NOTE : 1970 Procedure Information Date/Time: 04/04/22 1300 Scheduled providers: Tiffani Morales MD; Altagracia Salvador MD; Frederick Chaves APRN.ENVIRONMENTAL TEST TECHNICIAN Procedure: ENTEROSCOPY Location: Gastroenterology Estimated body mass [...] and consent discussed: yes. Patient / Responsible Libertarian agrees to proceed: yes Patient / Surrogate [...] April 04, 2022 TIME: 12:55 PM CSN: [id number] [facility] 04-04-2022 [facility] HISTORY PHYSICALon HISTORY PHYSICAL HNO ID: [id number] Author: Tiffani Morales MD Service: Gastroenterology Author [...] Sai Pineda DATE: 04/04/2022 TIME: 1302 Normal [facility] METHYLMALONIC ACID (MMA)on 0 04-04-2022 Methylmalonic Acid, Serum 397 nmol/L Critically high 0-378 [facility] Comment on above: Performed By: #### M MA2 #### [facility] [address], [place] [address] Dr. Prince Olivas NURSING PROGon 04-04-2022 NURSING PROG HNO ID: [id number] Author: Eduardo Harrington RN Service: Nursing Author [...] Electronically Signed By: Eduardo Harrington RN Normal [facility] NURSING PROG HNO ID: [id number] Author: Rima Kirk RN Service: Nursing Author [...] Rima Kirk RN In Department: GASTROENTEROLOGY Normal [facility] SELENIUM, PLASMAon 3 Selenium, Serum/Plasma 124 ug/L Normal 93-198 [facility] Comment on above: Performed By: #### S ELNIUM #### [facility] [address] [address] [address] Prince Olivas SURGICAL PATHOLOGYon 023 CASE REPORT Normal [facility] Comment on above: Order Comment: Speci men Type: TISSUE SPECIMENOrdering Facility: [facility] Address: [address] [place] [address] Result Comment: Surg ica Pathology Report Case: [id number] Authorizing Provider: Tiffani Morales MD Collected: 04/04/2022 02:57 PM Ordering Location: Gastroenterology Received: 04/04/2022 05:34 PM Pathologist: Gonzalo Lemons MD Specimen: JEJUNUM BIOPSY, polyp: r/o adenoma Performed By: #### S ####[facility]CLIA [id number] [address] [place] FINAL DIAGNOSIS Normal [facility] Comment on above: Order Comment: Speci men Type: TISSUE SPECIMENOrdering Facility: [facility] Address: [address] [place] [address] Result Comment: Santosh cordovaum, polyp, biopsy: - Small intestine with gastric heterotopia. - Negative for dysplasia and malignancy. Performed By: #### S ####[facility]CLIA [id number] [address] [place] FINAL PERFORMING LAB Normal [facility] Comment on above: Order Comment: Speci men Type: TISSUE SPECIMENOrdering Facility: [facility] Address: [address] [place] [address] Result Comment: Diag nostic interpretation performed at [facility], [address] [address] CLIA# [id number] Hand Stone Polisher: Constantin Quevedo M.D. Performed By: #### S ####[facility] LABCLIA [id number] [place] [address] [place] GROSS DESCRIPTION Normal [facility] Comment on above: Order Comment: Speci men Type: TISSUE SPECIMENOrdering Facility: [facility] Address: [address] [place] [address] Result Comment: A. J EJUNUM BIOPSY Received in formalin is a segment of proctor polypoid tissue measuring 1.2 x 1.0 x 0.4 cm. No stalk is noted. The line of resection is noted. The specimen is bisected and totally submitted in formalin in one cassette. Gross examination performed at [facility], [address] [facility], [facility], [address] 04/04/2022 10:13 PM Performed By: #### S ####[facility] LABCLIA [id number] [facility] [id number] [address] [id number] [place] FOLATE, RBC AND SERUMon 03-18 Folate 7.5 ng/mL Normal >3.0 [facility] Comment on above: Result Comment: A se rum folate concentration of less than 3.1 ng/mL is considered to represent clinical deficiency. Performed By: #### L IPID, CMP #### [facility] [address] [place] [address] Dr. Prince Olivas Folate, Hemolysate 297.0 ng/mL Normal Not Estab. [facility] Comment on above: Performed By: #### L IPID, CMP #### [facility] [address] [address] [address] Prince Olivas Folate, RBC 721 ng/mL Normal >498 [facility] Comment on above: Performed By: #### L IPID, CMP #### [facility] [address] [address] [address] Prince Olivas Hematocrit (Bld) [Volume fraction] 41.2 % Normal 34.0-46.6 [facility] Comment on above: Performed By: #### L IPID, CMP #### [facility] [address] [address] [address] Prince Olivas CBC AUTO DIFFon 03-31-2022 BASO # 0.1 103/ul Normal 0.0-0.1 [facility] Comment on above: Performed By: #### L IPID, CMP #### [facility] [address] [place] [address] Dr. Prince Olivas Basophils/100 WBC (Bld) 0.6 % Normal 0.2-2.0 [facility] Comment on above: Performed By: #### L IPID, CMP #### [facility] [address] [place] [address] Dr. Prince Olivas EO # 0.2 103/ul Normal 0.0-0.7 [facility] Comment on above: Performed By: #### L IPID, CMP #### [facility] [address] [place] [address] Dr. Prince Olivas Eosinophils/100 WBC (Bld) 2.9 % Normal 0.9-7.0 [facility] Comment on above: Performed By: #### L IPID, CMP #### [facility] [address] [place] [address] Dr. Prince Olivas Erythrocyte distribution width (RBC) [Ratio] 13.2 % Normal 11.0-15.0 [facility] Comment on above: Performed By: #### L IPID, CMP #### [facility] [address] [place] [address] Dr. Prince Olivas Hematocrit (Bld) [Volume fraction] 41.1 % Normal 36.0-48.0 [facility] Comment on above: Performed By: #### L IPID, CMP #### [facility] [address] [place] [address] Dr. Prince Olivas Hemoglobin (Bld) [Mass/Vol] 13.6 g/dL Normal 12.0-16.0 [facility] Comment on above: Performed By: #### L IPID, CMP #### [facility] [address] [place] [address] Dr. Prince Olivas IG # 0.04 10e3/ul Critically high 0.00-0.03 [facility] Comment on above: Performed By: #### L IPID, CMP #### [facility] [address] [place] [address] Dr. Prince Olivas IG % 0.5 % Normal 0.0-0.5 [facility] Comment on above: Performed By: #### L IPID, CMP #### [facility] [address] [address] [address] Prince Olivas LYMPH # 2.5 103/ul Normal 1.2-3.8 [facility] Comment on above: Performed By: #### L IPID, CMP #### [facility] [address] [address] [address] Prince Olivas Lymphocytes/100 WBC (Bld) 31.5 % Normal 20.5-60.0 [facility] Comment on above: Performed By: #### L IPID, CMP #### [facility] [address] [address] [address] Prince Olivas MANUAL DIFF REQ NO Normal [facility] Comment on above: Performed By: #### L IPID, CMP #### [facility] [address] [place] [address] Dr. Prince Olivas MCH (RBC) [Entitic mass] 30.5 pg Normal 26.7-34.0 [facility] Comment on above: Performed By: #### L IPID, CMP #### [facility] [address] [address] [address] Prince Olivas MCHC (RBC) [Mass/Vol] 33.1 g/dL Normal 29.9-35.2 [facility] Comment on above: Performed By: #### L IPID, CMP #### [facility] [address] [address] [address] Prince Olivas MCV (RBC) [Entitic vol] 92.2 fL Normal 81.0-99.0 [facility] Comment on above: Performed By: #### L IPID, CMP #### [facility] [address] [address] [address] Prince Olivas MONO # 0.6 103/ul Normal 0.3-0.8 [facility] Comment on above: Performed By: #### L IPID, CMP #### [facility] [address] [address] [address] Prince Olivas Monocytes/100 WBC (Bld) 7.0 % Normal 1.7-12.0 [facility] Comment on above: Performed By: #### L IPID, CMP #### [facility] [address] [place] [address] Dr. Prince Olivas NEUT # 4.5 103/ul Normal 1.4-6.5 [facility] Comment on above: Performed By: #### L IPID, CMP #### [facility] [address] [place] [address] Dr. Prince Olivas Neutrophils/100 WBC (Bld) 57.5 % Normal 43.0-75.0 [facility] Comment on above: Performed By: #### L IPID, CMP #### [facility] [address] [place] [address] Dr. Prince Olivas Platelet mean volume (Bld) [Entitic vol] 11.5 fL Normal 9.5-13.5 [facility] Comment on above: Performed By: #### L IPID, CMP #### [facility] [address] [place] [address] Dr. Prince Olivas PLT 224 103/ul Normal 150-450 [facility] Comment on above: Performed By: #### L IPID, CMP #### [facility] [address] [place] [address] Dr. Prince Olivas RBC 4.46 106/ul Normal 4.20-5.40 [facility] Comment on above: Performed By: #### L IPID, CMP #### [facility] [address] [place] [address] Dr. Prince Olivas WBC 7.9 103/ul Normal 4.0-11.0 [facility] Comment on above: Performed By: #### L IPID, CMP #### [facility] [address] [place] [address] Dr. Prince Olivas CRPon 03-31-2022 CRP [Mass/Vol] mg/L Normal <=1.0 [facility] Comment on above: Performed By: #### C OPPER #### [facility] [address] [place] [address] Dr. Prince Olivas FERRITINon 03-31-2022 Ferritin [Mass/Vol] 99.0 ng/mL Normal 8.0-252.0 [facility] Comment on above: Performed By: #### F ERR, VITB12, VITAD, FETIBC #### [facility] [address] [place] [address] Dr. Prince Olivas IRON AND TIBCon 03-31-2022 % SATURATION 29.3 % Normal [facility] Comment on above: Performed By: #### F ERR, VITB12, VITAD, FETIBC #### [facility] [address] [place] [address] Dr. Prince Olivas Iron [Mass/Vol] 90.0 ug/dL Normal 50.0-170.0 [facility] Comment on above: Performed By: #### F ERR, VITB12, VITAD, FETIBC #### [facility] [address] [place] [address] Dr. Prince Olivas TIBC DIRECT 307.0 ug/dL Normal 250.0-450.0 [facility] Comment on above: Performed By: #### F ERR, VITB12, VITAD, FETIBC #### [facility] [address] [place] [address] Dr. Prince Olivas MAGNESIUMon 03-31-2022 Magnesium [Mass/Vol] 2.0 mg/dL Normal 1.8-2.4 [facility] Comment on above: Performed By: #### C OPPER #### [facility] [address] [place] [address] Dr. Prince Olivas PHOSPHORUSon 03-31-2022 Phosphate [Mass/Vol] 3.6 mg/dL Normal 2.6-4.7 [facility] Comment on above: Performed By: #### C OPPER #### [facility] [address] [place] [address] Dr. Prince Olivas PROF 14(COMP METB)on 023 Albumin [Mass/Vol] 3.9 g/dL Normal 3.4-5.0 [facility] Comment on above: Performed By: #### C OPPER #### [facility] [address] [place] [address] Dr. Prince Olivas Albumin/Globulin [Mass ratio] 1.3 {ratio} Normal [facility] Comment on above: Performed By: #### C OPPER #### [facility] [address] [place] [address] Dr. Prince Olivas ALP [Catalytic activity/Vol] 75 U/L Normal 46-116 [facility] Comment on above: Performed By: #### C OPPER #### [facility] [address] [place] [address] Dr. Prince Olivas ALT [Catalytic activity/Vol] 19 U/L Normal 14-59 [facility] Comment on above: Performed By: #### C OPPER #### [facility] [address] [place] [address] Dr. Prince Olivas Anion gap [Moles/Vol] 11.3 mmol/L Normal [facility] Comment on above: Performed By: #### C OPPER #### [facility] [address] [place] [address] Dr. Prince Olivas AST [Catalytic activity/Vol] 19 U/L Normal 15-37 [facility] Comment on above: Performed By: #### C OPPER #### [facility] [address] [place] [address] Dr. Prince Olivas Bilirubin [Mass/Vol] 0.3 mg/dL Normal 0.2-1.0 [facility] Comment on above: Performed By: #### C OPPER #### [facility] [address] [place] [address] Dr. Prince Olivas Calcium [Mass/Vol] 9.0 mg/dL Normal 8.5-10.1 [facility] Comment on above: Performed By: #### C OPPER #### [facility] [address] [place] [address] Dr. Prince Olivas Chloride [Moles/Vol] 105 mmol/L Normal 98-107 [facility] Comment on above: Performed By: #### C OPPER #### [facility] [address] [place] [address] Dr. Prince Olivas CO2 [Moles/Vol] 28.9 mmol/L Normal 21.0-32.0 [facility] Comment on above: Performed By: #### C OPPER #### [facility] [address] [place] [address] Dr. Prince Olivas Creatinine [Mass/Vol] 0.79 mg/dL Normal 0.55-1.02 [facility] Comment on above: Performed By: #### C OPPER #### [facility] [address] [address] [address] Prince Olivas EGFR-AF AFGHAN >60 Normal >=60 [facility] Comment on above: Performed By: #### C OPPER #### [facility] [address] [place] [address] Dr. Prince Olivas EGFR-NON AF AFGHAN >60 Normal >=60 [facility] Comment on above: Performed By: #### C OPPER #### [facility] [address] [place] [address] Dr. Prince Olivas Globulin (S) [Mass/Vol] 3.0 g/dL Normal [facility] Comment on above: Performed By: #### C OPPER #### [facility] [address] [place] [address] Dr. Prince Olivas Glucose [Mass/Vol] 91 mg/dL Normal 74-106 [facility] Comment on above: Performed By: #### C OPPER #### [facility] [address] [place] [address] Dr. Prince Olivas Potassium [Moles/Vol] 4.2 mmol/L Normal 3.5-5.1 [facility] Comment on above: Performed By: #### C OPPER #### [facility] [address] [place] [address] Dr. Prince Olivas Protein [Mass/Vol] 6.9 g/dL Normal 6.4-8.2 [facility] Comment on above: Performed By: #### C OPPER #### [facility] [address] [place] [address] Dr. Prince Olivas Sodium [Moles/Vol] 141 mmol/L Normal 136-145 [facility] Comment on above: Performed By: #### C OPPER #### [facility] [address] [place] [address] Dr. Prince Olivas Urea nitrogen [Mass/Vol] 10.0 mg/dL Normal 7.0-18.0 [facility] Comment on above: Performed By: #### C OPPER #### [facility] [address] [place] [address] Dr. Prince Olivas Urea nitrogen/Creatinine [Mass ratio] 12.7 mg/mg Normal [facility] Comment on above: Performed By: #### C OPPER #### [facility] [address] [place] [address] Dr. Prince Olivas PROTIMEon 03-31-2022 INR Coag (PPP) [Relative time] 0.94 {INR} Normal [facility] Comment on above: Performed By: #### M MA2 #### [facility] [address] [place] [address] Dr. Prince Olivas INR GUIDELINES SEE BELOW Normal [facility] Comment on above: Result Comment: BRIANNA RED INR: 2.0 - 3.0 CONDITIONS NOT LISTED BELOW 2.5 - 3.5 FOR PROSTHETIC HEART VALVE REPLACEMENT 2.5 - 3.5 RECURRENT THROMBOSIS Performed By: #### M MA2 #### [facility] [address] [place] [address] Dr. Prince Olivas PT Coag (PPP) [Time] 10.0 s Normal 9.0-11.6 [facility] Comment on above: Performed By: #### M MA2 #### [facility] [address] [place] [address] Dr. Prince Olivas TRIGLYCERIDEon 03-31-2022 Triglyceride [Mass/Vol] 103 mg/dL Normal <=150 [facility] Comment on above: Performed By: #### C OPPER #### [facility] [address] [place] [address] Dr. Prince Olivas VITAMIN B12on 03-31-2022 Cobalamin (Vitamin B12) [Mass/Vol] 259.0 pg/mL Normal 193.0-986.0 [facility] Comment on above: Performed By: #### F ERR, VITB12, VITAD, FETIBC #### [facility] [address] [place] [address] Dr. Prince Olivas VITAMIN D 25 OHon 03-31-2022 VIT D 25-OH 49.0 ng/mL Normal [facility] Comment on above: Performed By: #### F ERR, VITB12, VITAD, FETIBC #### [facility] [address] [place] [address] Dr. Prince Olivas VIT D RANGES SEE BELOW Normal [facility] Comment on above: Result Comment: <20 ng/mL Vit D deficient 20 - <30 ng/mL Vit D insufficient 30 - 100 ng/mL Vit D sufficient >100 ng/mL Potential Toxicity Performed By: #### F ERR, VITB12, VITAD, FETIBC #### [facility] [address] [place] [address] Dr. Prince Olivas CBC AUTO DIFFon 03-28-2022 BASO # 0.1 103/ul Normal 0.0-0.1 [facility] [facility] Comment on above: Performed By: #### S ELNIUM #### [facility] [address] [place] [address] Dr. Prince Olivas Basophils/100 WBC (Bld) 0.6 % Normal 0.2-2.0 [facility] Comment on above: Performed By: #### S ELNIUM #### [facility] [address] [place] [address] Dr. Prince Olivas EO # 0.2 103/ul Normal 0.0-0.7 [facility] Comment on above: Performed By: #### S ELNIUM #### [facility] [address] [place] [address] Dr. Prince Olivas Eosinophils/100 WBC (Bld) 2.4 % Normal 0.9-7.0 [facility] Comment on above: Performed By: #### S ELNIUM #### [facility] [address] [place] [address] Dr. Prince Olivas Erythrocyte distribution width (RBC) [Ratio] 13.2 % Normal 11.0-15.0 [facility] Comment on above: Performed By: #### S ELNIUM #### [facility] [address] [place] [address] Dr. Prince Olivas Hematocrit (Bld) [Volume fraction] 44.3 % Normal 36.0-48.0 [facility] Comment on above: Performed By: #### S ELNIUM #### [facility] [address] [place] [address] Dr. Prince Olivas Hemoglobin (Bld) [Mass/Vol] 13.8 g/dL Normal 12.0-16.0 [facility] Comment on above: Performed By: #### S ELNIUM #### [facility] [address] [place] [address] Dr. Prince Olivas IG # 0.02 10e3/ul Normal 0.00-0.03 [facility] Comment on above: Performed By: #### S ELNIUM #### [facility] [address] [place] [address] Dr. Prince Olivas IG % 0.2 % Normal 0.0-0.5 [facility] Comment on above: Performed By: #### S ELNIUM #### [facility] [address] [place] [address] Dr. Prince Olivas LYMPH # 3.1 103/ul Normal 1.2-3.8 [facility] Comment on above: Performed By: #### S ELNIUM #### [facility] [address] [place] [address] Dr. Prince Olivas Lymphocytes/100 WBC (Bld) 34.8 % Normal 20.5-60.0 [facility] Comment on above: Performed By: #### S ELNIUM #### [facility] [address] [place] [address] Dr. Prince Olivas MANUAL DIFF REQ NO Normal [facility] Comment on above: Performed By: #### S ELNIUM #### [facility] [address] [place] [address] Dr. Prince Olivas MCH (RBC) [Entitic mass] 30.5 pg Normal 26.7-34.0 [facility] Comment on above: Performed By: #### S ELNIUM #### [facility] [address] [place] [address] Dr. Prince Olivas MCHC (RBC) [Mass/Vol] 31.2 g/dL Normal 29.9-35.2 [facility] Comment on above: Performed By: #### S ELNIUM #### [facility] [address] [place] [address] Dr. Prince Olivas MCV (RBC) [Entitic vol] 98.0 fL Normal 81.0-99.0 [facility] Comment on above: Performed By: #### S ELNIUM #### [facility] [address] [place] [address] Dr. Prince Olivas MONO # 0.5 103/ul Normal 0.3-0.8 [facility] Comment on above: Performed By: #### S ELNIUM #### [facility] [address] [place] [address] Dr. Prince Olivas Monocytes/100 WBC (Bld) 6.0 % Normal 1.7-12.0 [facility] Comment on above: Performed By: #### S ELNIUM #### [facility] [address] [place] [address] Dr. Prince Olivas NEUT # 5.0 103/ul Normal 1.4-6.5 [facility] Comment on above: Performed By: #### S ELNIUM #### [facility] [address] [place] [address] Dr. Prince Olivas Neutrophils/100 WBC (Bld) 56.0 % Normal 43.0-75.0 [facility] Comment on above: Performed By: #### S ELNIUM #### [facility] [address] [place] [address] Dr. Prince Olivas Platelet mean volume (Bld) [Entitic vol] 11.5 fL Normal 9.5-13.5 [facility] Comment on above: Performed By: #### S ELNIUM #### [facility] [address] [place] [address] Dr. Prince Olivas PLT 221 103/ul Normal 150-450 [facility] Comment on above: Performed By: #### S ELNIUM #### [facility] [address] [place], [place] [address] Dr. Prince Olivas RBC 4.52 106/ul Normal 4.20-5.40 [facility] Comment on above: Performed By: #### S ELNIUM #### [facility] [address] [place], [place] [address] Dr. Prince Olivas WBC 8.9 103/ul Normal 4.0-11.0 [facility] Comment on above: Performed By: #### S ELNIUM #### [facility] [address] [place], [place] [address] Dr. Prince Pinon 03-28-2022 CNPN Telephone ([facility]) SAI PINEDA ([id number]) 1970 F Date Time Provider Department 03/28/22 EDUARDO HARRINGTON [facility] During your visit today, we recorded the following information about you: Eduardo Harrington RN 03/28/2022 3:52 PM Signed Attempted to reach the patient at the contact number that they provided [phone] (home) . Unable to speak with patient so without identifying the patient the following information was left on their voice mail: Date of procedure, location and report time A message was left informing the patient/patient hospital insurance representative they must have a responsible adult [...] Number to call with questions or concerns [phone] Number to call to cancel their procedure [phone] Eduardo Harrington RN Allergies As of Date: 03/28/2022 (No Known Allergies) Date Reviewed: 01/01/2022 Reviewed by: Juan Carlos Saucedo LPN - Fully Assessed Reason for Visit: Appointment Confirmation [[id number]] Prescriptions as of 03/28/2022 - prochlorperazine (COMPAZINE) [...] Status:Closed by EDUARDO HARRINGTON on 03/28/22 Normal [facility] PROF 14(COMP METB)on 023 Albumin [Mass/Vol] 4.2 g/dL Normal 3.4-5.0 [facility] Comment on above: Performed By: #### L IPID, CMP #### [facility] [address] [place] [address] [address] Prince Olivas Albumin/Globulin [Mass ratio] 1.4 {ratio} Normal [facility] Comment on above: Performed By: #### L IPID, CMP #### [facility] [address] [place] [address] [address] Prince Olivas ALP [Catalytic activity/Vol] 86 U/L Normal 46-116 [facility] Comment on above: Performed By: #### L IPID, CMP #### [facility] [address] [place] [address] [address] Prince Olivas ALT [Catalytic activity/Vol] 13 U/L Critically low 14-59 [facility] Comment on above: Performed By: #### L IPID, CMP #### [facility] [address] [place] [address] [address] Prince Olivas Anion gap [Moles/Vol] 9.7 mmol/L Normal [facility] Comment on above: Performed By: #### L IPID, CMP #### [facility] [address] [place] [address] [address] Prince Olivas AST [Catalytic activity/Vol] 15 U/L Normal 15-37 [facility] Comment on above: Performed By: #### L IPID, CMP #### [facility] [address] [place] [address] [address] Prince Olivas Bilirubin [Mass/Vol] 0.2 mg/dL Normal 0.2-1.0 [facility] Comment on above: Performed By: #### L IPID, CMP #### [facility] [address] [place] [address] [address] Prince Olivas Calcium [Mass/Vol] 9.2 mg/dL Normal 8.5-10.1 [facility] Comment on above: Performed By: #### L IPID, CMP #### [facility] [address] [place] [address] [address] Prince Olivas Chloride [Moles/Vol] 102 mmol/L Normal 98-107 [facility] Comment on above: Performed By: #### L IPID, CMP #### [facility] [address] [place] [address] [address] Prince Olivas CO2 [Moles/Vol] 28.9 mmol/L Normal 21.0-32.0 [facility] Comment on above: Performed By: #### L IPID, CMP #### [facility] [address] [address] [address] Prince Olivas Creatinine [Mass/Vol] 0.81 mg/dL Normal 0.55-1.02 [facility] Comment on above: Performed By: #### L IPID, CMP #### [facility] [address] [place] [address] [address] Prince Olivas EGFR-AF AFGHAN >60 Normal >=60 [facility] Comment on above: Performed By: #### L IPID, CMP #### [facility] [address] [place] [address] [address] Prince Olivas EGFR-NON AF AFGHAN >60 Normal >=60 [facility] Comment on above: Performed By: #### L IPID, CMP #### [facility] [address] [place] [address] [address] Prince Olivas Globulin (S) [Mass/Vol] 3.1 g/dL Normal [facility] Comment on above: Performed By: #### L IPID, CMP #### [facility] [address] [place] [address] [address] Prince Olivas Glucose [Mass/Vol] 74 mg/dL Normal 74-106 [facility] Comment on above: Performed By: #### L IPID, CMP #### [facility] [address] [place] [address] [address] Prince Olivas Potassium [Moles/Vol] 4.1 mmol/L Normal 3.5-5.1 [facility] Comment on above: Performed By: #### L IPID, CMP #### [facility] [address] [place] [address] [address] Prince Olivas Protein [Mass/Vol] 7.3 g/dL Normal 6.4-8.2 [facility] Comment on above: Performed By: #### L IPID, CMP #### [facility] [address] [place] [address] [address] Prince Olivas Sodium [Moles/Vol] 138 mmol/L Normal 136-145 [facility] Comment on above: Performed By: #### L IPID, CMP #### [facility] [address] [place] [address] Dr. Prince Olivas Urea nitrogen [Mass/Vol] 11.0 mg/dL Normal 7.0-18.0 [facility] Comment on above: Performed By: #### L IPID, CMP #### [facility] [address] [place] [address] Dr. Prince Olivas Urea nitrogen/Creatinine [Mass ratio] 13.6 mg/mg Normal [facility] Comment on above: Performed By: #### L IPID, CMP #### [facility] [address] [place] [address] Dr. Prince Olivas TSHon 03-28-2022 TSH 0.948 uIU/mL Normal 0.358-3.740 [facility] Comment on above: Performed By: #### L IPID, CMP #### [facility] [address] [place] [address] Dr. Prince Olivas VIT B12 AND FOLATEon 023 Cobalamin (Vitamin B12) [Mass/Vol] 260.0 pg/mL Normal 193.0-986.0 [facility] Comment on above: Performed By: #### C OPPER #### [facility] [address] [place] [address] Dr. Prince Olivas FOLATE 7.90 ng/mL Critically low 8.60-58.90 [facility] Comment on above: Performed By: #### C OPPER #### [facility] [address] [place] [address] Dr. Prince Olivas NM GASTRIC EMPTYING SOLIDon 02-05-2022 NM GASTRIC EMPTYING SOLID * * *Final Report* * * DATE OF EXAM: Feb 05 2022 12:26PM JIE 0017 - NM GASTRIC EMPTYING SOLID / [...] rate of gastric emptying of solid meal. Roller Coaster Engineer: FAN Transcribe Date/Time: Feb 05 2022 1:36P Dictated by : SHER RODRIGUEZ MD This examination was interpreted and the report reviewed and electronically signed by: RENATO PATEL MD on Feb 05 2022 2:03PM EST [id number] Normal [facility] 01-05-2022 [facility] Telephone (GAPRA3) SAI PINEDA ([id number]) 1970 F Date Time Provider Department 01/05/22 [...] Encounter Status:Closed by TIFFANI MORALES on 01/05/22 [facility] SAI PIN[facility] ([id number]) 1970 F Date Time Provider Department 01/03/22 ANASTASIYA MOSQUEDA GASTWA During your visit today, we recorded the following information about you: Anastasiya Mosqueda PA-C 01/03/2022 10:19 AM Signed EGD results discussed with patient as requested, pathology still pending. Will reach out to patient once resulted. Red flags for in person care discussed. GRECIA Castorena [facility] 01/05/2022 10:02 AM Signed Patient requests return call [phone] Elizabeth Jean Barbara [facility] Allergies As of Date: 01/03/2022 (No Known [...] Encounter Status:Closed by ANASTASIYA MOSQUEDA on 01/03/22 [facility] 01-02-2022 [facility] Telephone (DDQ) SAI PINEDA ([id number]) 1970 F Date Time Provider Department 01/02/22 ANASTASIYA MOSQUEDA DDQ During your visit today, we recorded the following information about you: Leydi Mendiola 01/02/2022 8:52 AM Signed Patient called to get results from her procedure. Please contact her at number listed in system. Thanks Leydi Trejoleader Allergies As of Date: 01/02/2022 (No Known [...] Encounter Status:Closed by LEYDI HUIZAR on 01/02/22 [facility] ANES POSTPROC EVALon 022 ANES POSTPROC EVAL HNO ID: [id number] Author: Sher Hudson MD Service: ? Author [...] SIGNATURE: Sher Hudson MD PATIENT NAME: Sai Pineda [place] DATE: January 01, 2022 TIME: 5:13 PM CSN: [id number] Normal [facility] ANES PRE-OPon 01-01-2022 ANES PRE-OP HNO ID: [id number] Author: Sher Hudson MD Service: ? Author Type: Anesthesiologist Type: Anesthesia Preprocedure Evaluation Filed: 01/01/2022 3:42 PM Note Text: ANESTHESIOLOGY DAY OF SURGERY NOTE : 1970 Procedure Information Date/Time: 01/01/22 1600 Scheduled providers: Tiffani Morales MD; Sher Hudson MD; Kirsten Dalton APRN.ENVIRONMENTAL TEST TECHNICIAN Procedure: EGD DIAGNOSTIC Location: Gastroenterology Estimated body [...] and consent discussed: yes. Patient / Responsible Libertarian agrees to proceed: yes Patient / Surrogate [...] SIGNATURE: Sher Hudson MD PATIENT NAME: Sai Pineda [place] DATE: January 01, 2022 TIME: 3:42 PM CSN: [id number] Normal [facility] EGD DIAGNOSTICon 01-01-2022 [facility] HISTORY PHYSICALon HISTORY PHYSICAL HNO ID: [id number] Author: Tiffani Morales MD Service: Gastroenterology Author [...] Prior to Admission medications as of 01/01/22 9925 Medication Sig Last Dose Taking sertraline 100 [...] SIGNATURE: Tiffani Morales MD PATIENT NAME: Sai Freedovern DATE: 01/01/2022 TIME: 1600 Normal [facility] NURSING PROGon 01-01-2022 NURSING PROG HNO ID: [id number] Author: Juan Carlos Saucedo LPN Service: ? [...] Signed By: Juan Carlos Saucedo LPN Normal [facility] NURSING PROG HNO ID: [id number] Author: Rima Coleman RN Service: ? Author [...] Rima Coleman RN In Department: GASTROENTEROLOGY Normal [facility] SURGICAL PATHOLOGYon CASE REPORT Normal [facility] Comment on above: Order Comment: Speci urbano Type: TISSUE SPECIMENOrdering Facility: [facility] Address: [address] [place] [address] Result Comment: Surg [facility] Pathology Report Case: [id number] Authorizing Provider: Tiffani Morales MD Collected: 01/01/2022 04:13 PM Ordering Location: Gastroenterology Received: 01/01/2022 08:38 PM Pathologist: Jyotsna Cartwright MD Specimens: A) - DUODENUM BIOPSY, r/o celiac B) - STOMACH BIOPSY, r/o h. pylori C) - STOMACH (GASTRIC) POLYP BIOPSY, r/o adenoma Performed By: #### S ####[facility] LABCLIA [id number] [place] [address] [place] DIAGNOSIS COMMENT Normal [facility] Comment on above: Order Comment: Speci men Type: TISSUE SPECIMENOrdering Facility: [facility] Address: [address] [place], [place] [id number] Result Comment: A. A denovirus stain is negative for viral inclusions. Dr Valorie Jaimes has reviewed this part of the case and concurs. Laboratory Developed Test (LDT) Disclaimer: Performance characteristics of immunohistochemical, immunofluorescent and chromogenic in-situ hybridization tests have been determined by the performing laboratory within [facility]???s Lul Gandhi [facility] Pathology and Laboratory Medicine [place] ([facility], [facility], [facility] or [facility]) in a manner consistent with CLIA requirements. One or more of these tests have not been cleared or approved by the FDA. [facility] is regulated under CLIA as qualified to perform high-complexity testing. These tests are used for clinical purposes. They should not be regarded as investigational or for research. Positive and negative controls stain appropriately. Performed By: #### S ####[facility] LABIA [id number] [address] FINAL DIAGNOSIS Normal [facility] Comment on above: Order Comment: Speci men Type: TISSUE SPECIMENOrdering Facility: [facility] Address: [address] [place], [place] [id number] Result Comment: A. D uodenum, biopsy: - Incidental and minute tubular adenoma, negative for high grade dysplasia. See comment. - Duodenal mucosa with no diagnostic alterations. B. Stomach, biopsy: - Oxyntic and antral mucosa with no diagnostic alteration. - No morphologic evidence of H. Pylori microorganisms. C. Stomach, polypectomy: - Hyperplastic polyp. Performed By: #### S ####[facility]IA [id number] [address] FINAL PERFORMING LAB Normal [facility] Comment on above: Order Comment: Speci men Type: TISSUE SPECIMENOrdering Facility: [facility] Address: [address] [place], [place] [id number] Result Comment: Diag nostic interpretation performed at [facility], [address] [place], [place] [id number] CLIA# [id number] Hand Stone Polisher: Constantin Quevedo M.D. Performed By: #### S ####[facility] LABIA [id number] [address] [place] GROSS DESCRIPTION Normal [facility] Comment on above: Order Comment: Speci men Type: TISSUE SPECIMENOrdering Facility: [facility] Address: [address] [place] [address] Result Comment: A. D UODENUM BIOPSY Received [...] in one cassette. Gross examination performed at [facility], [address] [place] [address] TTN 01/02/2022 12:06 AM Performed By: #### S ####[facility] LABIA [id number] [address] [place] Upper GI endoscopyon 10-17-2 022 Upper GI endoscopy A31 Gastrointestinal Endoscopy Patient Name: Sai Guerrero Procedure Date: 01/01/2022 3:37 PM Date of : 1970 Admit Type: Outpatient Age: 51 Room: [address] [place] [address] Gender: Female Note Status: Finalized [...] the patient. 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 All rights reserved. The codes documented in this report are preliminary and upon body painter review may be revised to meet current compliance requirements. Attending Participation: I personally performed the entire procedure. Scope In: 4:09:57 PM Scope Out: 4:21:34 PM MD Tiffani Camargo MD 01/01/2022 4:34:18 PM This report has been signed electronically by Tiffani Morales MD Number of Addenda: 0 Note Initiated On: 01/01/2022 3:37 PM Normal [facility] 12-28-2021 CNPN Telephone (GAPRA3) SAI WELLS ([id number]) 1970 F Date Time Provider Department 12/28/21 JOSE ROBERTO VYAS3 During your visit today, we recorded the [...] have family/friend present for procedure transport home:Patient/patient hospital insurance representative was told that if they do [...] area. Any barriers to Patient learning: Patient/Patient Director Biology responded appropriately on phone. Type of instruction [...] Status:Closed by JOSE ROBERTO VYAS on 12/28/21 [facility] 12-25-2021 [facility] Telephone (GAPRA3) SAI WELLS ([id number]) 1970 F Date Time Provider Department 12/25/21 [...] Encounter Status:Closed by RIMA GERARD on 12/25/21 [facility] SAI WELLS ([id number]) 1970 F Date Time Provider Department 12/18/21 BHUPINDER CARREONRA3 During your visit today, we recorded the following information about you: Bhupinder Carreon MA 12/18/2021 10:51 AM Signed Attempted to reach the patient at the contact number that they provided [phone] (home) . Unable to speak with patient [...] Encounter Status:Closed by BHUPINDER CARREON on 12/18/21 [facility] 12-13-2021 CNPN Telephone (GASTMN) SAI WELLS ([id number]) 1970 F Date Time Provider Department 12/13/21 ANASTASIYA MOSQUEDA GASTWA During your visit today, we recorded the following information about you: [facility] 12/13/2021 11:20 AM Signed Received a call from patient's health agency concerning virtual visit set up with you today at 11 - Patient has not registered for [employer] (having trouble accessing her email) AND they want to know if you will do a phone visit instead Was told this was an urgent request from the referring doctor's office - the visit was scheduled thru the Referring Physician office There are no records found for this patient AND I attempted to pull records thru Care Everywhere Patient's phone [phone] [facility] 12/13/2021 12:33 PM Signed Spoke to patient's daughter - she will contact the [employer] support line to assist with setting up patient's [employer] AND assist with set up for virtual visit tomorrow morning [facility] 12/14/2021 12:34 PM Signed Patient phoned again unable to connect with you via Lailaihui Okay to schedule phone visit tomorrow? [phone] [facility] Elizabeth Jean Maurer [facility] 12/14/2021 1:32 PM Signed Patient scheduled for phone visit Dec 15 at 11 am - patient instructed not to screen her calls at the time of the visit AND to answer her phone Elizabeth Jimenez [facility] Elizabeth Jean Maurer [facility] 12/15/2021 11:46 AM Addendum Patient called the office stating you did not phone her for her 11 am appt today- she confirmed the phone number on file front desk team member checked the patient in as arrived you should be able to call her back without rescheduling the time [phone] [facility] Allergies As of Date: 12/13/2021 (No [...] Status:Closed by ELIZABETH RODRIGUEZ on 12/13/21 Normal [facility] BNPon 12-11-2021 Natriuretic peptide B (Bld) [Mass/Vol] 134.0 pg/mL Normal <=900.0 [facility] Comment on above: Performed By: #### M MA2 #### [facility] [address] [place] [address] Dr. Prince Olivas CBC AUTO DIFFon 12-11-2021 BASO # 0.0 103/ul Normal 0.0-0.1 [facility] Comment on above: Performed By: #### L IPID, CMP #### [facility] [address] [place] [address] Dr. Prince Olivas Basophils/100 WBC (Bld) 0.4 % Normal 0.2-2.0 [facility] Comment on above: Performed By: #### L IPID, CMP #### [facility] [address] [place] [address] Dr. Prince Olivas EO # 0.0 103/ul Normal 0.0-0.7 [facility] Comment on above: Performed By: #### L IPID, CMP #### [facility] [address] [place] [address] Dr. Prince Olivas Eosinophils/100 WBC (Bld) 0.3 % Critically low 0.9-7.0 [facility] Comment on above: Performed By: #### L IPID, CMP #### [facility] [address] [place] [address] Dr. Prince Olivas Erythrocyte distribution width (RBC) [Ratio] 13.1 % Normal 11.0-15.0 [facility] Comment on above: Performed By: #### L IPID, CMP #### [facility] [address] [place] [address] Dr. Prince Olivas Hematocrit (Bld) [Volume fraction] 45.9 % Normal 36.0-48.0 [facility] Comment on above: Performed By: #### L IPID, CMP #### [facility] [address] [place] [address] Dr. Prince Olivas Hemoglobin (Bld) [Mass/Vol] 15.3 g/dL Normal 12.0-16.0 [facility] Comment on above: Performed By: #### L IPID, CMP #### [facility] [address] [place] [address] Dr. Prince Olivas IG # 0.04 10e3/ul Critically high 0.00-0.03 [facility] Comment on above: Performed By: #### L IPID, CMP #### [facility] [address] [place] [address] Dr. Prince Olivas IG % 0.4 % Normal 0.0-0.5 [facility] Comment on above: Performed By: #### L IPID, CMP #### [facility] [address] [place] [address] Dr. Prince Olivas LYMPH # 1.9 103/ul Normal 1.2-3.8 [facility] Comment on above: Performed By: #### L IPID, CMP #### [facility] [address] [place] [address] Dr. Prince Olivas Lymphocytes/100 WBC (Bld) 17.0 % Critically low 20.5-60.0 [facility] Comment on above: Performed By: #### L IPID, CMP #### [facility] [address] [place] [address] Dr. Prince Olivas MANUAL DIFF REQ NO Normal [facility] Comment on above: Performed By: #### L IPID, CMP #### [facility] [address] [address] [address] Prince Olivas MCH (RBC) [Entitic mass] 31.4 pg Normal 26.7-34.0 [facility] Comment on above: Performed By: #### L IPID, CMP #### [facility] [address] [place] [address] Dr. Prince Olivas MCHC (RBC) [Mass/Vol] 33.3 g/dL Normal 29.9-35.2 [facility] Comment on above: Performed By: #### L IPID, CMP #### [facility] [address] [place] [address] Dr. Prnice Olivas MCV (RBC) [Entitic vol] 94.3 fL Normal 81.0-99.0 [facility] Comment on above: Performed By: #### L IPID, CMP #### [facility] [address] [place] [address] Dr. Prince Olivas MONO # 0.6 103/ul Normal 0.3-0.8 [facility] Comment on above: Performed By: #### L IPID, CMP #### [facility] [address] [place] [address] Dr. Prince Olivas Monocytes/100 WBC (Bld) 5.6 % Normal 1.7-12.0 [facility] Comment on above: Performed By: #### L IPID, CMP #### [facility] [address] [place] [address] Dr. Prince Olivas NEUT # 8.3 103/ul Critically high 1.4-6.5 [facility] Comment on above: Performed By: #### L IPID, CMP #### [facility] [address] [place] [address] Dr. Prince Olivas Neutrophils/100 WBC (Bld) 76.3 % Critically high 43.0-75.0 [facility] Comment on above: Performed By: #### L IPID, CMP #### [facility] [address] [place] [address] Dr. Prince Olivas Platelet mean volume (Bld) [Entitic vol] 12.1 fL Normal 9.5-13.5 [facility] Comment on above: Performed By: #### L IPID, CMP #### [facility] [address] [place] [address] Dr. Prince Olivas PLT 204 103/ul Normal 150-450 [facility] Comment on above: Performed By: #### L IPID, CMP #### [facility] [address] [place] [address] Dr. Prince Olivas RBC 4.87 106/ul Normal 4.20-5.40 [facility] Comment on above: Performed By: #### L IPID, CMP #### [facility] [address] [place] [address] Dr. Prince Olivas WBC 10.9 103/ul Normal 4.0-11.0 [facility] Comment on above: Performed By: #### L IPID, CMP #### [facility] [address] [place] [address] Dr. Prince Olivas LACTATE/LACTIC ACIDon 2021 Lactate [Moles/Vol] 1.9 mmol/L Normal 0.4-1.9 [facility] Comment on above: Performed By: #### S ELNIUM #### [facility] [address] [place] [address] Dr. Prince lOivas LIPASEon 12-11-2021 Lipase [Catalytic activity/Vol] 49.0 U/L Critically low 73.0-393.0 [facility] Comment on above: Performed By: #### M MA2 #### [facility] [address] [place] [address] Dr. Prince Olivas PROF 14(COMP METB)on 022 Albumin [Mass/Vol] 4.5 g/dL Normal 3.4-5.0 [facility] Comment on above: Performed By: #### M ADRIAN2 #### [facility] [address] [place] [address] Dr. Prince Olivas Albumin/Globulin [Mass ratio] 1.7 {ratio} Normal [facility] Comment on above: Performed By: #### M ADRIAN2 #### [facility] [address] [address] [address] Prince Olivas ALP [Catalytic activity/Vol] 83 U/L Normal 46-116 [facility] Comment on above: Performed By: #### M MA2 #### [facility] [address] [place] [address] Dr. Prince Olivas ALT [Catalytic activity/Vol] 19 U/L Normal 14-59 [facility] Comment on above: Performed By: #### Marine CAMPBELL2 #### [facility] [address] [address] [address] Prince Olivas Anion gap [Moles/Vol] 15.8 mmol/L Normal [facility] Comment on above: Performed By: #### Marine CAMPBELL2 #### [facility] [address] [place] [address] Dr. Prince Olivas AST [Catalytic activity/Vol] 15 U/L Normal 15-37 [facility] Comment on above: Performed By: #### Marine CAMPBELL2 #### [facility] [address] [place] [address] Dr. Prince Olivas Bilirubin [Mass/Vol] 0.6 mg/dL Normal 0.2-1.0 [facility] Comment on above: Performed By: #### Marine CAMPBELL2 #### [facility] [address] [place] [address] Dr. Prince Olivas Calcium [Mass/Vol] 9.3 mg/dL Normal 8.5-10.1 [facility] Comment on above: Performed By: #### Marine CAMPBELL2 #### [facility] [address] [place] [address] Dr. Prince Olivas Chloride [Moles/Vol] 103 mmol/L Normal 98-107 [facility] Comment on above: Performed By: #### Marine CAMPBELL2 #### [facility] [address] [place] [address] Dr. Prince Olivas CO2 [Moles/Vol] 25.9 mmol/L Normal 21.0-32.0 [facility] Comment on above: Performed By: #### Marine CAMPBELL2 #### [facility] [address] [place] [address] Dr. Prince Olivas Creatinine [Mass/Vol] 0.97 mg/dL Normal 0.55-1.02 [facility] Comment on above: Performed By: #### M MA2 #### [facility] [address] [place] [address] Dr. Prince Olivas EGFR-AF AFGHAN >60 Normal >=60 [facility] Comment on above: Performed By: #### M MA2 #### [facility] [address] [address] [address] Prince Olivas EGFR-NON AF AFGHAN >60 Normal >=60 [facility] Comment on above: Performed By: #### M MA2 #### [facility] [address] [address] [address] Prince Olivas Globulin (S) [Mass/Vol] 2.7 g/dL Normal [facility] Comment on above: Performed By: #### M MA2 #### [facility] [address] [place] [address] Dr. Prince Olivas Glucose [Mass/Vol] 107 mg/dL Critically high 74-106 [facility] Comment on above: Performed By: #### M MA2 #### [facility] [address] [address] [address] Prince Olivas Potassium [Moles/Vol] 3.7 mmol/L Normal 3.5-5.1 [facility] Comment on above: Performed By: #### M MA2 #### [facility] [address] [place] [address] Dr. Prince Olivas Protein [Mass/Vol] 7.2 g/dL Normal 6.4-8.2 [facility] Comment on above: Performed By: #### M MA2 #### [facility] [address] [address] [address] Prince Olivas Sodium [Moles/Vol] 141 mmol/L Normal 136-145 [facility] Comment on above: Performed By: #### M MA2 #### [facility] [address] [place] [address] Dr. Prince Olivas Urea nitrogen [Mass/Vol] 11.0 mg/dL Normal 7.0-18.0 [facility] Comment on above: Performed By: #### M MA2 #### [facility] [address] [place], [place] [address] Dr. Prince Olivas Urea nitrogen/Creatinine [Mass ratio] 11.3 mg/mg Normal [facility] Comment on above: Performed By: #### M MA2 #### [facility] [address] [place], [place] [address] Dr. Prince Olivas TROPONIN, HIGH SENSITIVITYon 12-11-2021 HSTROP 5.5 pg/mL Normal 4.0-51.3 [facility] Comment on above: Result Comment: CUT- OFF POINTS HAVE BEEN ESTABLISHED BASED ON THE FOURTH UNIVERSAL DEFINITIONS OF MYOCARDIAL INFARCTION. THE UPPER REFERENCE LIMIT (URL) OF TROPONIN, DEFINED THE 99TH PERCENTILE OF cTnI DISTRIBUTION IN A REFERENCE POPULATION, HAS BEEN CONFIRMED THE DECISION THRESHOLD FOR [place] DIAGNOSIS. Performed By: #### M MA2 #### [facility] [address] [address] [address] Prince Olivas XR CHEST 1 Von [...] by: BRITNI HARRISON Date: 2021-12-11 15:20 Normal [facility] Coding Summary.on 12-06-2021 Coding Summary. CD:[id number] Gh0bWw+P GhlYWQ+ZI1DBYSyR25gsKUqpP1QM 7hSAD1NBVTGMFJILA1IAU7yvUK0R RyiD7GuatNq IepwlGPlCG30IBl8XLI8vIikVFpp lH3gvNIlD8p2AaNcBE46cA21TMwv QXRwPxA4IfPdzalzfAVq E8mzTmMhbOFjDdu+PHRhYmxlIHdp APTgVOjeYTGoAzGjoXrhZA4cLx9u ZGVyLWNvbGxhcHNlOiBj l9ejACNlHDawTY1veYhcH1TicEF1 EARop2t9Bb23iGU+FFTwASJ4qTub QRmqj811PwWxs2ltHGN5 cJXjAGpzYWM3F67oi6B1NXNpDBXw THI7bXZ5vA3dnLrpqzbyO5OizJDr QaV3CFO7jZUcfA8mlPao ubeynR8mRnt+K52UDF6SPBZHEX6U Ssd0O8GkOubsiBJ+ZT19CTReVK80 mRJuaURsh1wmhTp0VjAk YQWkGMU5xSbzZHwak9HdLNPxX82m sERzw8T5ATIfaDiotUQlQdOjgJW0 cD2rNRlesbgec8nsmvfq Xkvvc5kcyz36rC96I60eUPqoCUNl RPS2ONPoPTSyoPdlbx5fwV4oDi5+ NSyto4eiu0tdlZk4BbZs JAFsvzPavUbmTAB1f7OxAt93R9Si tYwis8PiJgt4ly20cAFkx3G9bLU8 PRzuAIVkaN1hBLihRqN2 KYSrKhPmeE82cSCvZSsoZc5zlZzy kIqiUO1dFPRxpfcjTCCdkY7kGARv jAAnyDizRL2rTZNcyfai t870KyGbVII6UZDpnXQgE9HmlF5i FyYlBLAzDIFjJ7SboDPgJPrcG118 JFwjXlC8RPWvpgWbG2Pi OLPxvWudOvC9g3R8Qy7Gq5Vwhcjk MTQ6YCuzLNV7UiRgNaRbNcM6J9Ef Qjw7MFXqaFbzDR0kO8Nf VWLixkqtrejdyWV6GNVkBRFxdI27 wGOfKKniSz4pz9S8t499PSOnBZOf uS43Jh3ypPxwYHDrbJWZ bN9vuipux0lrjtrmVuQlSFTtUFc7 SKz6BFLgrAijZoEoNBV7KpX2HEQ3 bYRsjI4bvYvbgmlyyO4j Oyc+L23vuO8yLGX5YOL1zyszONFi tlWkOU34YR69E0TqMuvbuIDyeSL+ DHGnauHjnIalFU7iWcOr e6qfw7QwOGwyV4IoDZCbBZexJcp2 FYAgJVQ9dKK8yJ8kIKUkEBtra2R1 xPP8U9BrauZjtt4ti7fk AMCmZCywV19wdWDay8D5CWJuoMP1 MROszHpeXsUtcH37Amb+PGNvbGdy j6QbFmggt9djd7insLr6 PjGuHXFrueLepKmtBRH4w6TtWt81 J49kIQriBDPlMSBhYLHqQDLxeUmd bb1kpZ2wAm2+PGNvbCB3 yUH4bT6hDFIuCtK5VRnfX604GfBi rCStRhgus5tac6neiDn9FuNrXHIx yaOhkKjpDNL4h6TfWe64 D41uMZqnRYOeQPSvFBXmUXQiwDxo pk0smG4aWg2+VV8yv7siav41uA27 dHI+JTHsTMU0rStgTOzj FGYtaH7kWQtwMnJ7WPPfRpVgkW60 jNEmNBnuMm9pbUsxtAajFE0cHSHn rsbqf613NzEez2ndMNGp sDRsGYmoGJK8U20uh7G3MAUsQVQz ZBB1uGZ7nF6amZdsmoqoiJWqkYvw tvOxfYxzURxnAJonX819 IHRvcDsnPlBhdGllbnQgTmFtZTo8 W0DqCmu3DZGtbEttSU6dtEJgONko Dl2pyXkkrRdsFV5zYQDx divzw818FaXwj7hqTQKvwRFwYSag WGB7S91bx6G0KJEjHQSlSLM8hBY2 pH3qhCfylmywaQYvdLoj leQafCtbIHlxBPkkH383PVDuhBjy DuZesnNxSPOzhWW3QC21XG35iUWr j3D8iUN5G0QrFXSkomal ekvapOI2FOWsICJxhO26Gc7waEhj Em0pIMZvPWR5OLFpcNZeM7DzeK9u ScVqYSDzPEZtP4VczBWe MTieV524YCiaImJ8ATYyjwNlL0Ij PDPvwFokBoP2h8P9Wa4WB4M9CX58 PF72eVPbx1L3kXY3O9Hk HBTfxbqgbixaoXJ0YWRgFMBgwT48 Ee2hjUcaSi2oWISmMJW4WRTnnIIc Q8XvkU6tZiNhKUBbZQZd Y1DlpUIvTHusC389INfsOwU5GWMe ekWvS1WjUZCznUduRhJ9z5M7Ew9N UZj3WQ76HT08nWRve0O8 mPK8L2FnGXHhgpfbxytcbMF1GHVk FEHpiB02Dv8cxTvvId8fVPLmERG2 JRWwzBQaT2BobF3iVuOt YJPpTPWpO0MfbYHuNKvhI395JFzm OaO7FJGxjjKgU4CePHPmyYgcPxU7 e7P7Ts8VHXNmIN70PXK1 bRZ0ZH16EB08R9BrVeijeOFibGZ+ PHRhYmxlIHdpZHRoPScxMDAlJyBz rDpaAK4xPb8tRYOlQBLk eZajsZGrDwFip1xtJENfSYtvJD5d gBzsW7PoxOG8XNQme6o4Tw64R32t U3YzgSE+MXOvxBC1nBL4 fU5hWwZrJbA8DXlpY171TrYnuOAa Eknzj9bqc4sxjVf4VaY2RLUrzdRm qIzaZSG9l6FnOm61E17n EVoyWRUiJZPzLMUyGTWhzByrgq1u hO8fSq1+HIVkiKA0yTM7yE1jQtPi VcP7CIgjR187GkTfdCGj Idiqc3irf4vdtQk4IuUeXVGtrkJy oUqpPIC5v5CoEz47P6WumCmtw8Rw Swn9rq29tCXcx5R7rXT6 X3JvQABcqopkqGSobCtvBE4uLFFt wqudAJOmfH0fRCAsB0u3DkQuSeU1 ZTpnP3SeogH2NEMedUNl VVcqRUS6V94mh7O4POYbYGXpDEN2 kTG5mZ6xjYphxltzgMVwlJaiygRu rGuhAJjeOYsxG558OIXc yQuuJIBuoG5wHQFtxCMnjCbhXP8u NTBpbjsnPldFQVZFUiwgUkhPTkRB IIV8S7NqEtn9VWAuxRec PB6hfIIkUQahOt1bsPrwqQjyCZ9y BTLjncwsFJIoyK0fPOUpwXYayIoi KS2xUUUcrixou502WhNd DSY7UQUhxRYxW8GbyM6rXuRmQAXq ZVGuZ5NquLYcOExxL815WVfqMjN5 BAXubqFoB3VuCFXirNkp DwA5x6L4Nj2lZy5zZk5jJYrhVL01 YU71nUIjd4H8gJI4C0NhCWEwjxgr hrkplPB3ZGWfFANlfG40 eDLdAUldSf6lp8S7g434SKSzJBOr fB74Fz3bwOgjEGBgdWRSdY5vbgdb x8qnqmzvPsFwOVEoDQk7 FPc2YZTomCplTkJqITO2XpB5CEU9 hKZsvC6dkMivxyfvvW2jHnr+NTEg CQOoqlF7M7PfQnz0SEDr fLpwEF2saSRbMBxtBz4ieOzvgJtk XH2mJLFetpwbCTKhwD0lRVWhmWPb tIqfBU3oWAFsbfazy033 PlZhZSR8NASlyUYzL8LdhU3pDvTc NOExJPMdP7ViyZOjMWguF522QHwo SkS7PSHsbnBxD2XuBEJw dOzkIsV4p5B2Qt3GQW2erCT6T5Gq Nqn5PTUwcOpzQM1pqEKkHVjjRm5u eSczfBdgSM7zBHKbzuyy PWBrmZ0aIJBfoWYdoPjrMV5tOBLy mhide246ZtYlOOF4PEZfkAYaM0Js sE6vIiXpOPCcZCEnK0Ic wPDkTUkwQ979OZxiZaX7NDPewpBw N5WoLQCqdNwrIiE2i5M7Uv3CvWVj E6OtN2u2T1SeLffpkTB+ HN84VTBfLP87oGRsqHNwf2jjsQn6 YpRxWDZjDRT4cZauSMnzw8XvRZTy Y21ceDVrp2G6LORkhDga lBJhShEqyEQ5fE8eJXawjujgb1px eouaUaqik5pdwp08zL44W16qUSlj ZHRoPSIzMCUiIHZhbGln ng3cbT6cPh0+MKLloXQ3fZW5wU4w UuAoQdY0LKeiF609XqPsdQZmDaav p8nhi8xopIx3HyHdNOGs jzGtpEqgIUA7u0SzOe36E74aHIlf ZLQtTQRoBELmFRSpmKkskh5wdP4u Ii8+KJ6sg8fqyq62aH31 dHI+VKZaIHO7kEpuHQeoGJBdfV4d IPfvNhE4IGBdIaOdcD04zWYcTGjh Ri7ecJmfqGhrTB8qPYWq jchsy220VqNuq9crKIIleOIpRHkf WGJ1H02pe4F8KAYpHUDaEYB8vQD5 yC4laQtsnlopcUFszOqt agGteQgoZBziOPicW494WEOjbWij YsVgyDDoM8esbvZZGD3oUjdftDE+ BCGsKGL6aGjcHVpzAZRa fD4wYBMmM8u0ZaXoZwB7PHfhL4Fc biS9BJCbxDWoJDTzeNGSjW8oxlnc e5vxbzbaNeLoVSWfNMw3 KFz5HZHcwJymBwWwTJL3RbK4CVT4 kBBteX0vyGikkjecxG2jDrk+RklO OjwvdGQ+ZDXrJIX4mJol ETdtNNJnmA0rYLZkM4p1JwAyVxH3 ZAxwQ0DqgvV2LJBxcTGfZBIcqWEV nD7oofvfo8wiysxcEuLx TUZhUEs1LFk3QUXiaQcjUxCfVWT5 KtM8FCE2cFQroG5rfAryltzvrB1n Oyc+TVJOOjwvdGQ+PHRk IOO5rNslVCgsLVKnpB7kFXKtI0m9 GbNmSlQ8SKqfA4MlizF5SOEdwELn LVNckBBUbM7lymxlw0va rsvdKqBjTOEaFLt3RYl0DNGvkQhc PlEfAQK9SnO5ANU1lOUxaF5fxNlj ozzdtJ6sHys+ADD3EYI4 FI34WF14P3PxPcxmaGGpkLA+PHRh YmxlIHdpZHRoPScxMDAlJyBzdHls LD3rLg5oVRTiKMTkiRbq cHNl (more content not included)... Normal [facility] Amylaseon 12-03-2021 Amylase [Catalytic activity/Vol] 32 U/L Normal 25-157 [facility] Comment on above: Performed By: #### 1 [id number], [id number], [id number], 8918564, 9607321, 9594620, 8475827 #### [facility] [address] [place] [address] Auto Diffon 12-03-2021 Basophils/100 WBC (Bld) 0.6 % Normal 0.0-2.0 [facility] Comment on above: Order Comment: Order Added by Discern Expert. Performed By: #### 1 [id number], [id number], 3290373, 1669175, 3260529, 9404790, 9784329 #### [facility] [address] [place] [address] Basophils/Leukocyte s Auto (Bld) [Pure # fraction] 0.1 E9/L Normal 0.0-0.2 [facility] Comment on above: Order Comment: Order Added by Discern Expert. Performed By: #### 1 [id number], 0729490, 7434087, 6792571, 2052745, 0790279, 3504054 #### [facility] [address] [place] [address] Eosinophils/100 WBC (Bld) 0.1 % Normal 0.0-8.0 [facility] Comment on above: Order Comment: Order Added by Discern Expert. Performed By: #### 1 [id number], 3027800, 8152055, 8309262, 9173736, 0089378, 6875347 #### [facility] [address] [place] [address] Eosinophils/Leukocy lefty Auto (Bld) [Pure # fraction] 0.0 E9/L Normal 0.0-0.5 [facility] Comment on above: Order Comment: Order Added by Discern Expert. Performed By: #### 1 [id number], 4189237, 3075098, 5324450, 8440802, 2377466, 1251884 #### [facility] [address] [place] [address]29[address] Lymphocytes/100 WBC (Bld) 16.1 % Normal 14.0-50.0 [facility] Comment on above: Order Comment: Order Added by Discern Expert. Performed By: #### 1 [id number], 8907219, 4160408, 4033475, 2683385, 6234615, 6613716 #### [facility] [address] [place] [address] 318[address] Lymphocytes/Leukocy lefty Auto (Bld) [Pure # fraction] 1.5 E9/L Normal 1.0-4.0 [facility] Comment on above: Order Comment: Order Added by Discern Expert. Performed By: #### 1 [id number], 5217245, 9849524, 2454686, 4628625, 5548775, 2778510 #### [facility] [address] [place] [address] Monocytes/100 WBC (Bld) 4.6 % Normal 4.0-14.0 [facility] Comment on above: Order Comment: Order Added by Discern Expert. Performed By: #### 1 [id number], 4501056, 7095124, 6089151, 7638790, 7787758, 1121590 #### [facility] [address] [place] [address] Monocytes/Leukocyte s Auto (Bld) [Pure # fraction] 0.4 E9/L Normal 0.2-1.0 [facility] Comment on above: Order Comment: Order Added by Discern Expert. Performed By: #### 1 [id number], 7420571, 2608106, 5889897, 8880675, 1992336, 2966979 #### [facility] [address] [place] [address] Neutrophils/100 WBC (Bld) 78.6 % High 36.0-75.0 [facility] Comment on above: Order Comment: Order Added by Farurkh Expert. Performed By: #### 1 [id number], 9360907, 6906684, 1771158, 5667965, 2810889, 6705760 #### [facility] [address] [place] [address] Neutrophils/Leukocy lefty Auto (Bld) [Pure # fraction] 7.6 E9/L High 2.0-7.5 [facility] Comment on above: Order Comment: Order Added by Discern Expert. Performed By: #### 1 [id number], 8047127, 9939762, 6758378, 6814538, 1161696, 7901864 #### [facility] [address] [place] [address] BMPon 12-03-2021 Creatinine [Mass/Vol] 1.1 mg/dL Normal 0.5-1.3 [facility] Comment on above: Performed By: #### 1 [id number], 6736389, 4413683, 0008645, 2049922, 7462341, 3450047 #### [facility] [address] [place] [address] Urea nitrogen [Mass/Vol] 21 mg/dL Normal 5-21 [facility] Comment on above: Performed By: #### 1 [id number], 1829175, 5954016, 2321233, 5603860, 4189643, 3908995 #### [facility] [address] [place] [address] Urea nitrogen/Creatinine [Mass ratio] 19 No Units Normal 10-20 [facility] Comment on above: Performed By: #### 1 [id number], 9544313, 4503290, 2142272, 3454604, 5088455, 4849135 #### [facility] [address] [place] [address] Anion gap [Moles/Vol] 22 mmol/L High 6-16 [facility] Comment on above: Performed By: #### 1 [id number], 5404773, 5901531, 2984292, 9208763, 4294687, 8871631 #### [facility] [address] [place] [address] Calcium [Mass/Vol] 9.8 mg/dL Normal 8.9-11.1 [facility] Comment on above: Performed By: #### 1 [id number], 0851647, 6324047, 2522476, 8511965, 8228567, 1619230 #### [facility] [address] [place] [address] Chloride [Moles/Vol] 96 mmol/L Low 101-111 [facility] Comment on above: Performed By: #### 1 [id number], 1236821, 1678750, 9447933, 8521047, 5158056, 8490119 #### [facility] [address] [place] [address] CO2 [Moles/Vol] 19 mmol/L Low 21-31 [facility] Comment on above: Performed By: #### 1 [id number], 5186199, 2455125, 7851647, 7122029, 8354824, 9475253 #### [facility] [address] [place] [address] Glucose [Mass/Vol] 64 mg/dL Normal 55-199 [facility] Comment on above: Result Comment: If t his glucose result represents a fasting glucose, interpretation should refer to the following reference range: 55-99 mg/dL Performed By: #### 1 [id number], 0033670, 9453514, 7638434, 1374955, 2024613, 1225088 #### [facility] [address] [place] [address] Potassium [Moles/Vol] 4.3 mmol/L Normal 3.5-5.3 [facility] Comment on above: Performed By: #### 1 [id number], 3241706, 9323731, 6675212, 8940675, 3523307, 9950926 #### [facility] [address] [place] [address] Sodium [Moles/Vol] 133 mmol/L Low 135-145 [facility] Comment on above: Performed By: #### 1 [id number], 2977422, 1010220, 8501809, 5558066, 9551406, 5862030 #### [facility] [address] [place] [address] CBC w/ Auto Diffon 2 Erythrocyte distribution width (RBC) [Ratio] 13.5 % Normal 10.9-14.2 [facility] Comment on above: Performed By: #### 1 [id number], 6444031, 2165297, 1555528, 2881972, 6373464, 7162166 #### [facility] [address] [place] [address] Hematocrit (Bld) [Volume fraction] 51.0 % High 34.0-46.0 [facility] Comment on above: Performed By: #### 1 9531465, 7220541, 2679644, 0569560, 7800440, 0929115, 3389176 #### [facility] [address] [place] [address] Hemoglobin (Bld) [Mass/Vol] 16.8 g/dL High 12.0-16.0 [facility] Comment on above: Performed By: #### 1 0891149, 4200311, 9946724, 9257358, 4843719, 5889993, 0347871 #### [facility] [address] [place] [address] MCH (RBC) [Entitic mass] 30.9 pg Normal 27.0-34.0 [facility] Comment on above: Performed By: #### 1 8786765, 5601963, 6413991, 8415084, 7325671, 0404092, 3867437 #### [facility] [facility] [address] [place] [address] 88471 MCHC (RBC) [Mass/Vol] 32.9 g/dL Normal 31.4-36.0 [facility] Comment on above: Performed By: #### 1 [id number], 9254498, 3100397, 3251819, 6442626, 5697837, 4357897 #### [facility] [address] [place] [address] MCV (RBC) [Entitic vol] 94.0 fL Normal 80.0-100.0 [facility] Comment on above: Performed By: #### 1 [id number], 1771761, 1350727, 2751762, 0662021, 0296761, 9330427 #### [facility] [address] [place] [address] Platelet mean volume (Bld) [Entitic vol] 9.8 fL Normal 6.4-10.8 [facility] Comment on above: Performed By: #### 1 [id number], 2472842, 3004825, 9609451, 2931422, 3040368, 8493503 #### [facility] [address] [place] [address] 11114 Platelets (Bld) [#/Vol] 212.0 E9/L Normal 150.0-500.0 [facility] Comment on above: Performed By: #### 1 6829587, 3504233, 2468189, 0347174, 0021572, 1302234, 2994511 #### [facility] [address] [place] [address] 53743 RBC (Bld) [#/Vol] 5.4 E12/L Normal 4.3-5.9 [facility] Comment on above: Performed By: #### 1 6858098, 1101574, 6665727, 3209116, 6751220, 3679933, 2572221 #### [facility] [address] [place] [address] 12280 WBC corrected for nucl RBC Auto (Bld) [#/Vol] 9.6 E9/L Normal 4.0-11.0 [facility] Comment on above: Performed By: #### 1 [id number], 4823893, 9245759, 4389660, 2803876, 1037984, 3994246 #### [facility] [address] [place] [address] 20881 Consent for Treatmenton 11-16 Consent for Treatment [id number]:127 Normal [facility] Discharge Instructionson Discharge Instructions [id number]:127 Normal [facility] ED Clinical Summaryon 2021 ED Clinical Summary (Inserted Image. Antoinette ble to display) [address] [address] ED Clinical Summary Person Information Name: SAI PINEDA [place] Age: 51 Years : 1970 Sex: Female Language: Surinamese PCP: CRISTINA IQBAL CNP Marital Status: MRN: [id number] Visit Id: Visit Reason: Nausea; Abdominal pain; [id number] BREATHING Speciality: Acuity: 3 Enc Type: Emergency [...] 12/03/2021 13:54:54 12/03/2021 13:54:54 12/03/2021 13:54:54 ADDRESS: [address] [place] [phone] PHYS DOC NOTES: MEDICAL INFORMATION: Prescriptions Given: New Medications [id number], [address], [place] [id number], [phone] promethazine (Phenergan 25 mg Supp) 1 Suppositories By rectum every 6 hours as needed as needed for nausea. Insert one per rectum every six hours as needed for nausea and vomiting. Refills: 0. promethazine (promethazine 25 mg Tab) 1 Tablets By Mouth every 4 hours. Refills: 0. Medications to Continue Taking That Have Changed [id number], [address], [place] [id number], [phone] START: pantoprazole (Protonix 40 mg Tab-DR) 1 [...] day. PATIENT EDUCATION INFORMATION: Instructions: Gastritis, Adult, Jhoh-ms-Gfap; Abdominal Pain, Adult Follow up: With: Address: When: CRISTINA IQBAL [address] [facility], [place], [place] [phone] Business (1) In 3 days 12/06/2021 DIAGNOSIS: 1:Upper abdominal pain; 2:Gastritis; 3:Anxiety Normal [facility] ED Note-Physicianon 12-04-19 ED Note-Physician Basic Information [...] Daily, # 30 tab(s), Refills(s) 0, Pharmacy: [id number], 172.9, cm, 12/03/21 10:15:00 EDT, Height/Length Dosing, 46.2, kg, 12/03/21 10:15:00 EDT, Weight Dosing promethazine, 25 mg = 1 tab(s), Oral, q4hr, # 12 tab(s), Refills(s) 0, Pharmacy: [id number], 172.9, cm, 12/03/21 10:15:00 EDT, Height/Length Dosing, 46.2, kg, 12/03/21 10:15:00 EDT, Weight Dosing promethazine, 25 mg = 1 supp, Rectal, q6hr, PRN as needed for nausea, Insert one per rectum every six hours as needed for nausea and vomiting, # 6 EA, Refills(s) 0, Pharmacy: [facility]pharmacy #[id number], 172.9, cm, 12/03/21 10:15:00 EDT, [...] mg/mL IV Misty, 20 mg, IV Push [id number] [F], 1000 mL, IV promethazine 25 mg/mL [...] In 3 days 12/06/2021 EDT [address] [place] [address] [phone] Business (1) Additional Instructions: Patient Ed (more content not included)... Normal [facility] Comment on above: Result Comment: Elec tronically [...] these instructions at home: Medicines ? Take vnsi-zrl-rcmkorv and prescription medicines only as told by [...] 08/20/2008 Document Revised: 07/22/2018 Document Reviewed: 07/22/2018 [employer] Patient Education ? 2020 [employer] Abdominal Pain, Adult Pain in the [...] these instructions at home: Medicines ? Take brya-gej-bopokxn and prescription medicines only as told by [...] are cons (more content not included)... Normal [facility] ED Patient Summaryon 022 ED Patient Summary (Inserted Image. Antoinette ble to display) [address] [address] Patient Discharge Instructions Person Information Name: SAI PINEDA Age: 51 Years Arrival Date: 12/03/2021 09:55:45 Discharge Diagnosis: 1:Upper abdominal pain; 2:Gastritis; 3:Anxiety Primary Care Physician: CRISTINA IQBAL CNP Provider Information Primary Provider: Vipin Pina MD Advanced Shot Coat Tender:None The exam and treatment you received in the Emergency Department were for an urgent problem and are not intended as complete care. It is important that you follow up with a doctor, nurse practitioner, or physician?s employment legal assistant for ongoing care. If your symptoms [...] With: Address: When: CRISTINA IQBAL [address] [facility], [place], [place] [phone] Business (1) In 3 days 12/06/2021 In the event that this physician does not participate in your insurance network, please consult with your insurance company to find a nearby participating provider. Patient Education Materials: Gastritis, Adult, Eqfl-tc-Mnej; Abdominal Pain, Adult A MESSAGE TO ALL PATIENTS REGARDING OPIOIDS PRESCRIPTION OPIOIDS: WHAT YOU NEED TO KNOW Prescription opioids can be used to help relieve oqeklyli-wj-tsyilz pain and are often prescribed following a [...] be struggling with addiction, tell your health personal care assistant and ask for guidance or call [facility]? (more content not included)... Normal [facility] Hep Func Panelon 12-03-2021 Albumin [Mass/Vol] 5.3 g/dL High 3.3-5.0 [facility] Comment on above: Performed By: #### 1 3277865, 3600570, 4999515, 3668528, 8701931, 9083408, 3092493 #### [facility] [address] [place] [address] Albumin/Globulin (S) [Mass conc ratio] 1.8 Normal 1.1-2.2 [facility] Comment on above: Performed By: #### 1 0978591, 0576132, 0097424, 3719981, 7974665, 3191620, 8378837 #### [facility] [address] [place] [address] ALP [Catalytic activity/Vol] 79 Int._Unit/L Normal 21-98 [facility] Comment on above: Performed By: #### 1 3924925, 5652426, 8561972, 7973302, 8188488, 1935347, 2034168 #### [facility] [address] [place] [address] ALT No additional P-5'-P [Catalytic activity/Vol] 14 Int._Unit/L Normal 6-46 [facility] Comment on above: Performed By: #### 1 0924272, 1609411, 5649871, 6271535, 7172860, 5337626, 8485501 #### [facility] [address] [place] [address] AST [Catalytic activity/Vol] 21 Int._Unit/L Normal 5-43 [facility] Comment on above: Performed By: #### 1 9618413, 3383069, 2283528, 3773080, 6990872, 7975636, 5096465 #### [facility] [address] [place] [address] Bilirubin [Mass/Vol] 1.2 mg/dL High 0.0-1.1 [facility] Comment on above: Performed By: #### 1 8464911, 5112960, 8359326, 1514616, 1460314, 6100891, 0659330 #### [facility] [address] [place] [address] Bilirubin.direct [Mass/Vol] 0.2 mg/dL Normal 0.1-0.4 [facility] Comment on above: Performed By: #### 1 3079694, 8264471, 3460457, 2012565, 4898375, 4037015, 1401516 #### [facility] [address] [place] [address] Bilirubin.indirect [Mass or moles/Vol] 1.0 mg/dL High 0.1-0.9 [facility] Comment on above: Performed By: #### 1 7203530, 0604213, 5037520, 9433017, 6734949, 5617897, 6491033 #### [facility] [address] [place] [address] Globulin (S) [Mass/Vol] 3.0 g/dL Normal 1.4-4.0 [facility] Comment on above: Performed By: #### 1 8837454, 2964899, 0930612, 3042755, 8322818, 0925735, 5790542 #### [facility] [address] [place] [address] Protein [Mass/Vol] 8.3 g/dL High 6.0-7.8 [facility] Comment on above: Performed By: #### 1 8572557, 1193122, 0826090, 9548160, 9367696, 2349440, 8524118 #### [facility] [address] [place] [address]40 Lipase Levelon 12-03-2021 Lipase [Catalytic activity/Vol] 21 U/L Normal 13-58 [facility] Comment on above: Performed By: #### 1 5355277, 4257151, 8143154, 4100411, 8050390, 8431192, 6818005 #### [facility] [address] [place] [address] eGFRon 12-03-2021 GFR/1.73 sq M.predicted among blacks MDRD (S/P/Bld) [Vol rate/Area] mL/min/{1.73_m2} Normal >=59 [facility] Comment on above: Order Comment: Order added by Discern Expert. Result Comment: eGFR is race adjusted. AA=. Performed By: #### 1 4029437, 4933397, 3351548, 6272041, 3583121, 1648349, 7048912 #### [facility] [address] [place] [address] GFR/1.73 sq M.predicted among non-blacks MDRD (S/P/Bld) [Vol rate/Area] 52 mL/min/1.73 m2 Low >=59 [facility] Comment on above: Order Comment: Order added by Discern Expert. Result Comment: [employer] julian kidney disease could be indicated at eGFR's of less than 60 mL/min/1.73m2. Kidney failure is indicated at less than 15 mL/min/1.73m2. Performed By: #### 1 8138293, 3556645, 6532856, 5151022, 6858800, 1975730, 2321966 #### [facility] [address] [place] [address] CARDIAC SIMA ADMITon 022 CK [Catalytic activity/Vol] 72 U/L Normal 26-192 [facility] Comment on above: Performed By: #### S SKYLER #### [facility] [address] [place], [place] [address] Dr. Prince Olivas CK.MB [Mass/Vol] 1.28 ng/mL Normal <=3.60 [facility] Comment on above: Performed By: #### S SKYLER #### [facility] [address] [place] [address] [address] Prince Olivas HSTROP 5.4 pg/mL Normal 4.0-51.3 [facility] Comment on above: Result Comment: CUT- OFF POINTS HAVE BEEN ESTABLISHED BASED ON THE FOURTH UNIVERSAL DEFINITIONS OF MYOCARDIAL INFARCTION. THE UPPER REFERENCE LIMIT (URL) OF TROPONIN, DEFINED THE 99TH PERCENTILE OF cTnI DISTRIBUTION IN A REFERENCE POPULATION, HAS BEEN CONFIRMED THE DECISION THRESHOLD FOR [place] DIAGNOSIS. Performed By: #### S ELNIUM #### [facility] [address] [place] [address] [address] Prince Olivas JENNIFER 58 ng/mL Normal 9-82 [facility] Comment on above: Performed By: #### S ELVETOUM #### [facility] [address] [place] [address] Dr. Prince Olivas CBC AUTO DIFFon 11-14-2021 BASO # 0.1 103/ul Normal 0.0-0.1 [facility] Comment on above: Performed By: #### L IPID, CMP #### [facility] [address] [place] [address] Dr. Prince Olivas Basophils/100 WBC (Bld) 0.6 % Normal 0.2-2.0 [facility] Comment on above: Performed By: #### L IPID, CMP #### [facility] [address] [place] [address] Dr. Prince Olivas EO # 0.1 103/ul Normal 0.0-0.7 [facility] Comment on above: Performed By: #### L IPID, CMP #### [facility] [address] [place] [address] Dr. Prince Olivas Eosinophils/100 WBC (Bld) 0.9 % Normal 0.9-7.0 [facility] Comment on above: Performed By: #### L IPID, CMP #### [facility] [address] [place] [address] Dr. Prince Olivas Erythrocyte distribution width (RBC) [Ratio] 13.0 % Normal 11.0-15.0 [facility] Comment on above: Performed By: #### L IPID, CMP #### [facility] [address] [place] [address] Dr. Prince Olivas Hematocrit (Bld) [Volume fraction] 46.3 % Normal 36.0-48.0 [facility] Comment on above: Performed By: #### L IPID, CMP #### [facility] [address] [place] [address] Dr. Prince Olivas Hemoglobin (Bld) [Mass/Vol] 15.8 g/dL Normal 12.0-16.0 [facility] Comment on above: Performed By: #### L IPID, CMP #### [facility] [address] [place] [address] Dr. Prince Olivas IG # 0.03 10e3/ul Normal 0.00-0.03 [facility] Comment on above: Performed By: #### L IPID, CMP #### [facility] [address] [place] [address] Dr. Prince Olivas IG % 0.3 % Normal 0.0-0.5 [facility] Comment on above: Performed By: #### L IPID, CMP #### [facility] [address] [place] [address] Dr. Prince Olivas LYMPH # 2.8 103/ul Normal 1.2-3.8 [facility] Comment on above: Performed By: #### L IPID, CMP #### [facility] [address] [place] [address] Dr. Prince Olivas Lymphocytes/100 WBC (Bld) 31.8 % Normal 20.5-60.0 [facility] Comment on above: Performed By: #### L IPID, CMP #### [facility] [address] [place] [address] Dr. Prince Olivas MANUAL DIFF REQ NO Normal [facility] Comment on above: Performed By: #### L IPID, CMP #### [facility] [address] [place] [address] Dr. Prince Olivas MCH (RBC) [Entitic mass] 31.5 pg Normal 26.7-34.0 [facility] Comment on above: Performed By: #### L IPID, CMP #### [facility] [address] [address] [address] Prince Olivas MCHC (RBC) [Mass/Vol] 34.1 g/dL Normal 29.9-35.2 [facility] Comment on above: Performed By: #### L IPID, CMP #### [facility] [address] [place] [address] Dr. Prince Olivas MCV (RBC) [Entitic vol] 92.4 fL Normal 81.0-99.0 [facility] Comment on above: Performed By: #### L IPID, CMP #### [facility] [address] [place] [address] Dr. Prince Olivas MONO # 0.6 103/ul Normal 0.3-0.8 [facility] Comment on above: Performed By: #### L IPID, CMP #### [facility] [address] [place] [address] Dr. Prince Olivas Monocytes/100 WBC (Bld) 6.8 % Normal 1.7-12.0 [facility] Comment on above: Performed By: #### L IPID, CMP #### [facility] [address] [place] [address] Dr. Prince Olivas NEUT # 5.3 103/ul Normal 1.4-6.5 [facility] Comment on above: Performed By: #### L IPID, CMP #### [facility] [address] [place] [address] Dr. Prince Olivas Neutrophils/100 WBC (Bld) 59.6 % Normal 43.0-75.0 [facility] Comment on above: Performed By: #### L IPID, CMP #### [facility] [address] [place] [address] Dr. Prince Olivas Platelet mean volume (Bld) [Entitic vol] 11.6 fL Normal 9.5-13.5 [facility] Comment on above: Performed By: #### L IPID, CMP #### [facility] [address] [place] [address] Dr. Prince Olivas PLT 185 103/ul Normal 150-450 [facility] Comment on above: Performed By: #### L IPID, CMP #### [facility] [address] [place] [address] Dr. Prince Olivas RBC 5.01 106/ul Normal 4.20-5.40 [facility] Comment on above: Performed By: #### L IPID, CMP #### [facility] [address] [place] [address] Dr. Prince Olivas WBC 8.9 103/ul Normal 4.0-11.0 [facility] Comment on above: Performed By: #### L IPID, CMP #### [facility] [address] [place] [address] Dr. Prince Olivas LIPASEon 11-14-2021 Lipase [Catalytic activity/Vol] 84.0 U/L Normal 73.0-393.0 [facility] Comment on above: Performed By: #### S ELNIUM #### [facility] [address] [place] [address] Dr. Prince Olivas PROF 14(COMP METB)on 022 Albumin [Mass/Vol] 4.1 g/dL Normal 3.4-5.0 [facility] Comment on above: Performed By: #### S ELNIUM #### [facility] [address] [place] [address] Dr. Prince Olivas Albumin/Globulin [Mass ratio] 1.6 {ratio} Normal [facility] Comment on above: Performed By: #### S ELNIUM #### [facility] [address] [place] [address] Dr. Prince Olivas ALP [Catalytic activity/Vol] 76 U/L Normal 46-116 [facility] Comment on above: Performed By: #### S ELNIUM #### [facility] [address] [place] [address] Dr. Prince Olivas ALT [Catalytic activity/Vol] 14 U/L Normal 14-59 [facility] Comment on above: Performed By: #### S ELNIUM #### [facility] [address] [place] [address] Dr. Prince Olivas Anion gap [Moles/Vol] 17.7 mmol/L Normal [facility] Comment on above: Performed By: #### S ELNIUM #### [facility] [address] [place] [address] Dr. Prince Olivas AST [Catalytic activity/Vol] 15 U/L Normal 15-37 [facility] Comment on above: Performed By: #### S ELNIUM #### [facility] [address] [place] [address] Dr. Prince Olivas Bilirubin [Mass/Vol] 0.7 mg/dL Normal 0.2-1.0 [facility] Comment on above: Performed By: #### S ELNIUM #### [facility] [address] [place] [address] Dr. Prince Olivas Calcium [Mass/Vol] 9.4 mg/dL Normal 8.5-10.1 [facility] Comment on above: Performed By: #### S ELNIUM #### [facility] [address] [place] [address] Dr. Prince Olivas Chloride [Moles/Vol] 104 mmol/L Normal 98-107 [facility] Comment on above: Performed By: #### S ELNIUM #### [facility] [address] [place] [address] Dr. Prince Olivas CO2 [Moles/Vol] 20.8 mmol/L Critically low 21.0-32.0 [facility] Comment on above: Performed By: #### S ELNIUM #### [facility] [address] [place] [address] Dr. Prince Olivas Creatinine [Mass/Vol] 0.96 mg/dL Normal 0.55-1.02 [facility] Comment on above: Performed By: #### S ELNIUM #### [facility] [address] [place] [address] Dr. Prince Olivas EGFR-AF AFGHAN >60 Normal >=60 [facility] Comment on above: Performed By: #### S ELNIUM #### [facility] [address] [place] [address] Dr. Prince Olivas EGFR-NON AF AFGHAN >60 Normal >=60 [facility] Comment on above: Performed By: #### S ELNIUM #### [facility] [address] [place] [address] [address] Prince Olivas Globulin (S) [Mass/Vol] 2.6 g/dL Normal [facility] Comment on above: Performed By: #### S ELNIUM #### [facility] [address] [place] [address] [address] Prince Olivas Glucose [Mass/Vol] 104 mg/dL Normal 74-106 [facility] Comment on above: Performed By: #### S ELNIUM #### [facility] [address] [place] [address] [address] Prince Olivas Potassium [Moles/Vol] 3.5 mmol/L Normal 3.5-5.1 [facility] Comment on above: Performed By: #### S ELNIUM #### [facility] [address] [place] [address] Dr. Prince Olivas Protein [Mass/Vol] 6.7 g/dL Normal 6.4-8.2 [facility] Comment on above: Performed By: #### S ELNIUM #### [facility] [address] [place] [address] Dr. Prince Olivas Sodium [Moles/Vol] 139 mmol/L Normal 136-145 [facility] Comment on above: Performed By: #### S ELNIUM #### [facility] [address] [place] [address] [address] Prince Olivas Urea nitrogen [Mass/Vol] 10.0 mg/dL Normal 7.0-18.0 [facility] Comment on above: Performed By: #### S ELNIUM #### [facility] [address] [address] [address] Prince Olivas Urea nitrogen/Creatinine [Mass ratio] 10.4 mg/mg Normal [facility] Comment on above: Performed By: #### S ELNIUM #### [facility] [address] [place] [address] Dr. Prince Olivas XR ABD FLAT UP_PA [...] CHITRA ALFARO Date: 2021-11-14 18:10 Normal [facility] CBC AUTO DIFFon 11-09-2021 BASO # 0.0 103/ul Normal 0.0-0.1 [facility] Comment on above: Performed By: #### S ELNIUM #### [facility] [address] [address] [address] Prince Olivas Basophils/100 WBC (Bld) 0.3 % Normal 0.2-2.0 [facility] Comment on above: Performed By: #### S ELNIUM #### [facility] [address] [place] [address] [address] Prince Olivas EO # 0.0 103/ul Normal 0.0-0.7 [facility] Comment on above: Performed By: #### S ELNIUM #### [facility] [address] [place] [address] [address] Prince Olivas Eosinophils/100 WBC (Bld) 0.3 % Critically low 0.9-7.0 [facility] Comment on above: Performed By: #### S ELNIUM #### [facility] [address] [place] [address] [address] Prince Olivas Erythrocyte distribution width (RBC) [Ratio] 13.1 % Normal 11.0-15.0 [facility] Comment on above: Performed By: #### S ELNIUM #### [facility] [address] [address] [address] Prince Olivas Hematocrit (Bld) [Volume fraction] 46.8 % Normal 36.0-48.0 [facility] Comment on above: Performed By: #### S ELNIUM #### [facility] [address] [place] [address] Dr. Prince Olivas Hemoglobin (Bld) [Mass/Vol] 15.8 g/dL Normal 12.0-16.0 [facility] Comment on above: Performed By: #### S ELNIUM #### [facility] [address] [place] [address] Dr. Prince Olivas IG # 0.03 10e3/ul Normal 0.00-0.03 [facility] Comment on above: Performed By: #### S ELNIUM #### [facility] [address] [place] [address] Dr. Prince Olivas IG % 0.3 % Normal 0.0-0.5 [facility] Comment on above: Performed By: #### S ELNIUM #### [facility] [address] [place] [address] Dr. Prince Olivas LYMPH # 2.9 103/ul Normal 1.2-3.8 [facility] Comment on above: Performed By: #### S ELNIUM #### [facility] [address] [place] [address] Dr. Prince Olivas Lymphocytes/100 WBC (Bld) 31.7 % Normal 20.5-60.0 [facility] Comment on above: Performed By: #### S ELNIUM #### [facility] [address] [place] [address] Dr. Prince Olivas MANUAL DIFF REQ NO Normal [facility] Comment on above: Performed By: #### S ELNIUM #### [facility] [address] [place] [address] Dr. Prince Olivas MCH (RBC) [Entitic mass] 31.9 pg Normal 26.7-34.0 [facility] Comment on above: Performed By: #### S ELNIUM #### [facility] [address] [place] [address] Dr. Prince Olivas MCHC (RBC) [Mass/Vol] 33.8 g/dL Normal 29.9-35.2 [facility] Comment on above: Performed By: #### S ELNIUM #### [facility] [address] [place] [address] Dr. Prince Olivas MCV (RBC) [Entitic vol] 94.5 fL Normal 81.0-99.0 [facility] Comment on above: Performed By: #### S ELNIUM #### [facility] [address] [place] [address] Dr. Prince Olivas MONO # 0.5 103/ul Normal 0.3-0.8 [facility] Comment on above: Performed By: #### S ELNIUM #### [facility] [address] [place] [address] Dr. Prince Olivas Monocytes/100 WBC (Bld) 5.2 % Normal 1.7-12.0 [facility] Comment on above: Performed By: #### S ELNIUM #### [facility] [address] [place] [address] Dr. Prince Olivas NEUT # 5.8 103/ul Normal 1.4-6.5 [facility] Comment on above: Performed By: #### S ELNIUM #### [facility] [address] [place] [address] Dr. Prince Olivas Neutrophils/100 WBC (Bld) 62.2 % Normal 43.0-75.0 [facility] Comment on above: Performed By: #### S ELNIUM #### [facility] [address] [place] [address] Dr. Prince Olivas Platelet mean volume (Bld) [Entitic vol] 11.1 fL Normal 9.5-13.5 [facility] Comment on above: Performed By: #### S ELNIUM #### [facility] [address] [place] [address] Dr. Prince Olivas PLT 218 103/ul Normal 150-450 [facility] Comment on above: Performed By: #### S ELNIUM #### [facility] [address] [place] [address] Dr. Prince Olivas RBC 4.95 106/ul Normal 4.20-5.40 [facility] Comment on above: Performed By: #### S ELNIUM #### [facility] [address] [place] [address] Dr. Prince Olivas WBC 9.3 103/ul Normal 4.0-11.0 [facility] Comment on above: Performed By: #### S ELNIUM #### [facility] [address] [place] [address] Dr. Prince Olivas PROF CHEM 8 (BAS METB)on Anion gap [Moles/Vol] 14.8 mmol/L Normal [facility] Comment on above: Performed By: #### C OPPER #### [facility] [address] [place] [address] Dr. Prince Olivas Calcium [Mass/Vol] 9.3 mg/dL Normal 8.5-10.1 [facility] Comment on above: Performed By: #### C OPPER #### [facility] [address] [place] [address] Dr. Prince Olivas Chloride [Moles/Vol] 105 mmol/L Normal 98-107 [facility] Comment on above: Performed By: #### C OPPER #### [facility] [address] [place] [address] Dr. Prince Olivas CO2 [Moles/Vol] 23.7 mmol/L Normal 21.0-32.0 [facility] Comment on above: Performed By: #### C OPPER #### [facility] [address] [place] [address] Dr. Prince Olivas Creatinine [Mass/Vol] 0.95 mg/dL Normal 0.55-1.02 [facility] Comment on above: Performed By: #### C OPPER #### [facility] [address] [place] [address] Dr. Prince Olivas EGFR-AF AFGHAN >60 Normal >=60 [facility] Comment on above: Performed By: #### C OPPER #### [facility] [address] [place] [address] Dr. Prince Olivas EGFR-NON AF AFGHAN >60 Normal >=60 [facility] Comment on above: Performed By: #### C OPPER #### [facility] [address] [address] [address] Prince Olivas Glucose [Mass/Vol] 103 mg/dL Normal 74-106 [facility] Comment on above: Performed By: #### C OPPER #### [facility] [address] [address] [address] Prince Olivas Potassium [Moles/Vol] 3.5 mmol/L Normal 3.5-5.1 [facility] Comment on above: Performed By: #### C OPPER #### [facility] [address] [address] [address] Prince Olivas Sodium [Moles/Vol] 140 mmol/L Normal 136-145 [facility] Comment on above: Performed By: #### C OPPER #### [facility] [address] [address] [address] Prince Olivas Urea nitrogen [Mass/Vol] 7.0 mg/dL Normal 7.0-18.0 [facility] Comment on above: Performed By: #### C OPPER #### [facility] [address] [place] [address] Dr. Prince Olivas Urea nitrogen/Creatinine [Mass ratio] 7.4 mg/mg Normal [facility] Comment on above: Performed By: #### C OPPER #### [facility] [address] [place] [address] Dr. Prince Olivas TROPONIN, HIGH SENSITIVITYon 11-09-2021 HSTROP 4.3 pg/mL Normal 4.0-51.3 [facility] Comment on above: Result Comment: CUT- OFF POINTS HAVE BEEN ESTABLISHED BASED ON THE FOURTH UNIVERSAL DEFINITIONS OF MYOCARDIAL INFARCTION. THE UPPER REFERENCE LIMIT (URL) OF TROPONIN, DEFINED THE 99TH PERCENTILE OF cTnI DISTRIBUTION IN A REFERENCE POPULATION, HAS BEEN CONFIRMED THE DECISION THRESHOLD FOR [place] DIAGNOSIS. Performed By: #### C OPPER #### [facility] [address] [address] [address] Prince Olivas XR CHEST 1 Von [...] BELEN REGAN Date: 2021-11-09 17:05 Normal [facility] CARDIAC SIMA ADMITon 022 CK [Catalytic activity/Vol] 62 U/L Normal 26-192 [facility] Comment on above: Performed By: #### M MA2 #### [facility] [address] [place] [address] Dr. Prince Olivas CK.MB [Mass/Vol] 0.37 ng/mL Normal <=3.60 [facility] Comment on above: Performed By: #### Marine CAMPBELL2 #### [facility] [address] [address] [address] Prince Olivas HSTROP 3.5 pg/mL Critically low 4.0-51.3 [facility] Comment on above: Result Comment: CUT- OFF POINTS HAVE BEEN ESTABLISHED BASED ON THE FOURTH UNIVERSAL DEFINITIONS OF MYOCARDIAL INFARCTION. THE UPPER REFERENCE LIMIT (URL) OF TROPONIN, DEFINED THE 99TH PERCENTILE OF cTnI DISTRIBUTION IN A REFERENCE POPULATION, HAS BEEN CONFIRMED THE DECISION THRESHOLD FOR NH DIAGNOSIS. Performed By: #### Marine CAMPBELL2 #### [facility] [address] [address] [address] Prince Olivas JENNIFER 40 ng/mL Normal 9-82 [facility] Comment on above: Performed By: #### Marine CAMPBELL2 #### [facility] [address] [address] [address] Prince Olivas CBC AUTO DIFFon 10-04-2021 BASO # 0.0 103/ul Normal 0.0-0.1 [facility] Comment on above: Performed By: #### C BC #### [facility] [address] [address] [address] Prince Olivas Basophils/100 WBC (Bld) 0.6 % Normal 0.2-2.0 [facility] Comment on above: Performed By: #### C BC #### [facility] [address] [place] [address] Dr. Prince Olivas EO # 0.3 103/ul Normal 0.0-0.7 [facility] Comment on above: Performed By: #### C BC #### [facility] [address] [place] [address] Dr. Prince Olivas Eosinophils/100 WBC (Bld) 3.7 % Normal 0.9-7.0 [facility] Comment on above: Performed By: #### C BC #### [facility] [address] [place] [address] Dr. Prince Olivas Erythrocyte distribution width (RBC) [Ratio] 13.4 % Normal 11.0-15.0 [facility] Comment on above: Performed By: #### C BC #### [facility] [address] [place] [address] Dr. Prince Olivas Hematocrit (Bld) [Volume fraction] 42.8 % Normal 36.0-48.0 [facility] Comment on above: Performed By: #### C BC #### [facility] [address] [place] [address] Dr. Prince Olivas Hemoglobin (Bld) [Mass/Vol] 14.1 g/dL Normal 12.0-16.0 [facility] Comment on above: Performed By: #### C BC #### [facility] [address] [place] [address] Dr. Prince Olivas IG # 0.02 10e3/ul Normal 0.00-0.03 [facility] Comment on above: Performed By: #### C BC #### [facility] [address] [place] [address] Dr. Prince Olivas IG % 0.3 % Normal 0.0-0.5 [facility] Comment on above: Performed By: #### C BC #### [facility] [address] [place] [address] Dr. Prince Olivas LYMPH # 2.0 103/ul Normal 1.2-3.8 [facility] Comment on above: Performed By: #### C BC #### [facility] [address] [place] [address] Dr. Prince Olivas Lymphocytes/100 WBC (Bld) 27.6 % Normal 20.5-60.0 [facility] Comment on above: Performed By: #### C BC #### [facility] [address] [place] [address] Dr. Prince Olivas MANUAL DIFF REQ NO Normal [facility] Comment on above: Performed By: #### C BC #### [facility] [address] [place] [address] Dr. Prince Olivas MCH (RBC) [Entitic mass] 31.4 pg Normal 26.7-34.0 [facility] Comment on above: Performed By: #### C BC #### [facility] [address] [place] [address] Dr. Prince Olivas MCHC (RBC) [Mass/Vol] 32.9 g/dL Normal 29.9-35.2 [facility] Comment on above: Performed By: #### C BC #### [facility] [address] [place] [address] Dr. Prince Olivas MCV (RBC) [Entitic vol] 95.3 fL Normal 81.0-99.0 [facility] Comment on above: Performed By: #### C BC #### [facility] [address] [place] [address] Dr. Prince Olivas MONO # 0.6 103/ul Normal 0.3-0.8 [facility] Comment on above: Performed By: #### C BC #### [facility] [address] [place] [address] Dr. Prince Olivas Monocytes/100 WBC (Bld) 8.2 % Normal 1.7-12.0 [facility] Comment on above: Performed By: #### C BC #### [facility] [address] [place] [address] Dr. Prince Olivas NEUT # 4.2 103/ul Normal 1.4-6.5 [facility] Comment on above: Performed By: #### C BC #### [facility] [address] [place] [address] Dr. Prince Olivas Neutrophils/100 WBC (Bld) 59.6 % Normal 43.0-75.0 [facility] Comment on above: Performed By: #### C BC #### [facility] [address] [place] [address] Dr. Prince Olivas Platelet mean volume (Bld) [Entitic vol] 11.1 fL Normal 9.5-13.5 [facility] Comment on above: Performed By: #### C BC #### [facility] [address] [place] [address] Dr. Prince Olivas PLT 194 103/ul Normal 150-450 [facility] Comment on above: Performed By: #### C BC #### [facility] [address] [place] [address] Dr. Prince Olivas RBC 4.49 106/ul Normal 4.20-5.40 [facility] Comment on above: Performed By: #### C BC #### [facility] [address] [place] [address] Dr. Prince Olivas WBC 7.1 103/ul Normal 4.0-11.0 [facility] Comment on above: Performed By: #### C BC #### [facility] [address] [place] [address] Dr. Prince Olivas PROF 14(COMP METB)on 022 Albumin [Mass/Vol] 3.9 g/dL Normal 3.4-5.0 [facility] Comment on above: Performed By: #### M MA2 #### [facility] [address] [place] [address] Dr. Prince Olivas Albumin/Globulin [Mass ratio] 1.4 {ratio} Normal [facility] Comment on above: Performed By: #### M MA2 #### [facility] [address] [place] [address] Dr. Prince Olivas ALP [Catalytic activity/Vol] 71 U/L Normal 46-116 [facility] Comment on above: Performed By: #### M MA2 #### [facility] [address] [address] [address] Prince Olivas ALT [Catalytic activity/Vol] 18 U/L Normal 14-59 [facility] Comment on above: Performed By: #### M MA2 #### [facility] [address] [address] [address] Prince Olivas Anion gap [Moles/Vol] 10.1 mmol/L Normal [facility] Comment on above: Performed By: #### M MA2 #### [facility] [address] [address] [address] Prince Olivas AST [Catalytic activity/Vol] 11 U/L Critically low 15-37 [facility] Comment on above: Performed By: #### M MA2 #### [facility] [address] [address] [address] Prince Olivas Bilirubin [Mass/Vol] 0.4 mg/dL Normal 0.2-1.0 [facility] Comment on above: Performed By: #### Marine MA2 #### [facility] [address] [address] [address] Prince Olivas Calcium [Mass/Vol] 8.8 mg/dL Normal 8.5-10.1 [facility] Comment on above: Performed By: #### M MA2 #### [facility] [address] [address] [address] Prince Olivas Chloride [Moles/Vol] 105 mmol/L Normal 98-107 [facility] Comment on above: Performed By: #### M MA2 #### [facility] [address] [address] [address] Prince Olivas CO2 [Moles/Vol] 27.0 mmol/L Normal 21.0-32.0 [facility] Comment on above: Performed By: #### M MA2 #### [facility] [address] [address] [address] Prince Olivas Creatinine [Mass/Vol] 0.67 mg/dL Normal 0.55-1.02 [facility] Comment on above: Performed By: #### M MA2 #### [facility] [address] [place] [address] Dr. Prince Olivas EGFR-AF AFGHAN >60 Normal >=60 [facility] Comment on above: Performed By: #### M MA2 #### [facility] [address] [place] [address] Dr. Prince Olivas EGFR-NON AF AFGHAN >60 Normal >=60 [facility] Comment on above: Performed By: #### M MA2 #### [facility] [address] [address] [address] Prince Olivas Globulin (S) [Mass/Vol] 2.7 g/dL Normal [facility] Comment on above: Performed By: #### M MA2 #### [facility] [address] [place] [address] Dr. Prince Olivas Glucose [Mass/Vol] 105 mg/dL Normal 74-106 [facility] Comment on above: Performed By: #### M MA2 #### [facility] [address] [place] [address] Dr. Prince Olivas Potassium [Moles/Vol] 4.1 mmol/L Normal 3.5-5.1 [facility] Comment on above: Performed By: #### M MA2 #### [facility] [address] [place] [address] Dr. Prince Olivas Protein [Mass/Vol] 6.6 g/dL Normal 6.4-8.2 [facility] Comment on above: Performed By: #### M MA2 #### [facility] [address] [place] [address] Dr. Prince Olivas Sodium [Moles/Vol] 138 mmol/L Normal 136-145 [facility] Comment on above: Performed By: #### M MA2 #### [facility] [address] [place] [address] Dr. Prince Olivas Urea nitrogen [Mass/Vol] 7.0 mg/dL Normal 7.0-18.0 [facility] Comment on above: Performed By: #### M MA2 #### [facility] [address] [place] [address] Dr. Prince Olivas Urea nitrogen/Creatinine [Mass ratio] 10.4 mg/mg Normal [facility] Comment on above: Performed By: #### M MA2 #### [facility] [address] [address] [address] Prince Olivsa XR CHEST 1 Von 10-04-2021 XR CHEST [...] BARBI HENRY Date: 2021-10-04 10:58 Normal [facility] PROLACTINon 09-26-2021 Prolactin 149.0 ng/mL Critically high 4.8-23.3 [facility] Comment on above: Performed By: #### L IPID, CMP #### [facility] [address] [address] [address] Prince Olivas LIPID PROFILEon 09-25-2021 CHOL-HDL RATIO NORM SEE BELOW Normal [facility] Comment on above: Result Comment: 3.3 - 4.4 LOW RISK 4.4 - 7.1 AVERAGE RISK 7.1 - 11.0 MODERATE RISK >11.0 HIGH RISK Performed By: #### L IPID, CMP #### [facility] [address] [address] [address] Prince Olivas Cholesterol [Mass/Vol] 205 mg/dL Critically high <=200 [facility] Comment on above: Performed By: #### L IPID, CMP #### [facility] [address] [address] [address] Prince Olivas Cholesterol in HDL [Mass/Vol] 46 mg/dL Normal 40-60 [facility] Comment on above: Performed By: #### L IPID, CMP #### [facility] [address] [address] [address] Prince Olivas Cholesterol in LDL [Mass/Vol] 148.6 mg/dL Normal [facility] Comment on above: Performed By: #### L IPID, CMP #### [facility] [address] [address] [address] Prince Olivas Cholesterol.total/C holesterol in HDL [Mass ratio] 4.5 {ratio} Normal [facility] Comment on above: Performed By: #### L IPID, CMP #### [facility] [address] [place] [address] Dr. Prince Olivas HDL NORMAL > or = 60 mg/dl - LO W CARDIOVASCULAR RISK <40 mg/dl - HIGH CARDIOVASCULAR RISK Normal [facility] Comment on above: Performed By: #### L IPID, CMP #### [facility] [address] [place] [address] Dr. Prince Olivas LDL CALC NORMAL SEE BELOW Normal [facility] Comment on above: Result Comment: <100 mg/dl OPTIMAL 100 - 129 mg/dl NEAR OR ABOVE OPTIMAL 130 - 159 mg/dl BORDERLINE HIGH 160 - 189 mg/dl HIGH >190 mg/dl VERY HIGH Performed By: #### L IPID, CMP #### [facility] [address] [place] [address] Dr. Prince Olivas Triglyceride [Mass/Vol] 52 mg/dL Normal <=150 [facility] Comment on above: Performed By: #### L IPID, CMP #### [facility] [address] [place] [address] Dr. Prince Olivas VLDL CALC 10.4 mg/dL Normal [facility] Comment on above: Performed By: #### L IPID, CMP #### [facility] [address] [place] [address] Dr. Prince Olivas PROF 14(COMP METB)on 022 Albumin [Mass/Vol] 3.7 g/dL Normal 3.4-5.0 [facility] Comment on above: Performed By: #### L IPID, CMP #### [facility] [address] [place] [address] Dr. Prince Olivas Albumin/Globulin [Mass ratio] 1.5 {ratio} Normal [facility] Comment on above: Performed By: #### L IPID, CMP #### [facility] [address] [address] [address] Prince Olivas ALP [Catalytic activity/Vol] 66 U/L Normal 46-116 [facility] Comment on above: Performed By: #### L IPID, CMP #### [facility] [address] [address] [address] Prince Olivas ALT [Catalytic activity/Vol] 14 U/L Normal 14-59 [facility] Comment on above: Performed By: #### L IPID, CMP #### [facility] [address] [place] [address] Dr. Prince Olivas Anion gap [Moles/Vol] 13.8 mmol/L Normal [facility] Comment on above: Performed By: #### L IPID, CMP #### [facility] [address] [place] [address] Dr. Prince Olivas AST [Catalytic activity/Vol] 10 U/L Critically low 15-37 [facility] Comment on above: Performed By: #### L IPID, CMP #### [facility] [address] [place] [address] Dr. Prince Olivas Bilirubin [Mass/Vol] 0.3 mg/dL Normal 0.2-1.0 [facility] Comment on above: Performed By: #### L IPID, CMP #### [facility] [address] [place] [address] Dr. Prince Olivas Calcium [Mass/Vol] 8.9 mg/dL Normal 8.5-10.1 [facility] Comment on above: Performed By: #### L IPID, CMP #### [facility] [address] [place] [address] Dr. Prince Olivas Chloride [Moles/Vol] 106 mmol/L Normal 98-107 [facility] Comment on above: Performed By: #### L IPID, CMP #### [facility] [address] [place] [address] Dr. Prince Olivas CO2 [Moles/Vol] 24.0 mmol/L Normal 21.0-32.0 [facility] Comment on above: Performed By: #### L IPID, CMP #### [facility] [address] [address] [address] Prince Olivas Creatinine [Mass/Vol] 1.05 mg/dL Critically high 0.55-1.02 [facility] Comment on above: Performed By: #### L IPID, CMP #### [facility] [address] [address] [address] Prince Olivas EGFR-AF AFGHAN >60 Normal >=60 [facility] Comment on above: Performed By: #### L IPID, CMP #### [facility] [address] [address] [address] Prince Olivas EGFR-NON AF AFGHAN 55 mL/min/1.73m2 Critically low >=60 [facility] Comment on above: Performed By: #### L IPID, CMP #### [facility] [address] [address] [address] Prince Olivas Globulin (S) [Mass/Vol] 2.5 g/dL Normal [facility] [facility] Comment on above: Performed By: #### L IPID, CMP #### [facility] [address] [address] [address] Prince Olivas Glucose [Mass/Vol] 107 mg/dL Critically high 74-106 [facility] Comment on above: Performed By: #### L IPID, CMP #### [facility] [address] [address] [address] Prince Olivas Potassium [Moles/Vol] 3.8 mmol/L Normal 3.5-5.1 [facility] Comment on above: Performed By: #### L IPID, CMP #### [facility] [address] [address] [address] Prince Olivas Protein [Mass/Vol] 6.2 g/dL Critically low 6.4-8.2 Th [facility] Comment on above: Performed By: #### L IPID, CMP #### [facility] [address] [address] [address] Prince Olivas Sodium [Moles/Vol] 140 mmol/L Normal 136-145 [facility] Comment on above: Performed By: #### L IPID, CMP #### [facility] [address] [place], [place] [address] Dr. Prince Olivas Urea nitrogen [Mass/Vol] 10.0 mg/dL Normal 7.0-18.0 [facility] Comment on above: Performed By: #### L IPID, CMP #### [facility] [address] [place], [place] [address] Dr. Prince Olivas Urea nitrogen/Creatinine [Mass ratio] 9.5 mg/mg Normal [facility] Comment on above: Performed By: #### L IPID, CMP #### [facility] [address] [place], [place] [address] Dr. Prince Olivas Vital Signs Date Time Vital Sign Value Performing Clinician Facility 02-25-2024 11:16-0500 Diastolic blood pressure 64 mm[Hg] Mohamad Mouchli [facility] 02-25-2024 11:16-0500 Heart rate 71 /min Mohamad Mouchli [facility] 02-25-2024 11:16-0500 Mean blood pressure 80 mm[Hg] Mohamad Momichelineli [facility] 02-25-2024 11:16-0500 Respiratory rate 10 /min Mohamad Mouchli [facility] 02-25-2024 11:16-0500 SaO2% (BldA) [Mass fraction] 96 % Mohamad Mouchli [facility] 02-25-2024 11:16-0500 Systolic blood pressure 113 mm[Hg] Mohamad Mouchli [facility] 02-25-2024 11:05-0500 Diastolic blood pressure 75 mm[Hg] Mohamad Mouchli [facility] 02-25-2024 11:05-0500 Heart rate 73 /min Mohamad Mouchli [facility] 02-25-2024 11:05-0500 Mean blood pressure 86 mm[Hg] Mohamad Mouchli [facility] 02-25-2024 11:05-0500 Respiratory rate 18 /min Mohamad Mouchli [facility] 02-25-2024 11:05-0500 SaO2% (BldA) [Mass fraction] 95 % Mohamad Mouchli [facility] 02-25-2024 11:05-0500 Systolic blood pressure 107 mm[Hg] Mohamad Mouchli [facility] 02-25-2024 10:51-0500 Body temperature 98.24 [degF] Mohamad Mouchli [facility] 02-25-2024 10:51-0500 Diastolic blood pressure 92 mm[Hg] Mohamad Mouchli [facility] 02-25-2024 10:51-0500 Heart rate 81 /min Mohamad Mouchli [facility] 02-25-2024 10:51-0500 Mean blood pressure 96 mm[Hg] Mohamad Mouchli [facility] 02-25-2024 10:51-0500 Respiratory rate 18 /min Mohamad Mouchli [facility] 02-25-2024 10:51-0500 SaO2% (BldA) [Mass fraction] 97 % Mohamad Mouchli [facility] 02-25-2024 10:51-0500 Systolic blood pressure 103 mm[Hg] Mohamad Mouchli [facility] 02-25-2024 10:45-0500 Respiratory rate 15 /min Mohamad Mouchli [facility] 02-25-2024 10:40-0500 Respiratory rate 16 /min Mohamad Mouchli [facility] 02-25-2024 10:35-0500 Respiratory rate 17 /min Mohamad Mouchli [facility] 02-25-2024 09:14-0500 Blood Pressure Location Mohamad Mouchli [facility] 02-25-2024 09:14-0500 Body temperature 97.88 [degF] Mohamad Mouchli [facility] 02-21-2024 08:41-0500 Blood Pressure Location Mohamad Mouchli [facility] 02-21-2024 08:41-0500 Diastolic blood pressure 83 mm[Hg] Mohamad Mouchli [facility] 02-21-2024 08:41-0500 Heart rate 80 /min Mohamad Mouchli [facility] 02-21-2024 08:41-0500 Systolic blood pressure 134 mm[Hg] Mohamad Mouchli [facility] 01-16-2024 10:08-0400 Blood Pressure Location Mohamad Mouchli [facility] 01-16-2024 10:08-0400 Diastolic blood pressure 76 mm[Hg] Mohamad Mouchli [facility] 01-16-2024 10:08-0400 Heart rate 73 /min Mohamad Mouchli [facility] 01-16-2024 10:08-0400 Systolic blood pressure 116 mm[Hg] Mohamad Mouchli [facility] 09-24-2023 15:00-0400 Diastolic blood pressure 78 mm[Hg] José Luis Resendiz [facility] 09-24-2023 15:00-0400 Heart rate 66 /min José Luis Moee [facility] 09-24-2023 15:00-0400 Mean blood pressure 95 mm[Hg] José Luis Astrid [facility] 09-24-2023 15:00-0400 Respiratory rate 16 /min José Luis Moee [facility] 09-24-2023 15:00-0400 Systolic blood pressure 128 mm[Hg] José Luis Astrid [facility] 09-24-2023 14:00-0400 Diastolic blood pressure 69 mm[Hg] José Luis Astrid [facility] 09-24-2023 14:00-0400 Heart rate 75 /min José Luis Moee [facility] 09-24-2023 14:00-0400 Mean blood pressure 88 mm[Hg] José Luis Moee [facility] 09-24-2023 14:00-0400 SaO2% (BldA) [Mass fraction] 95 % José Luis Astrid [facility] 09-24-2023 14:00-0400 Systolic blood pressure 126 mm[Hg] José Luis Astrid [facility] 09-24-2023 12:58-0400 Body temperature 98.06 [degF] José Luis Astrid [facility] 09-24-2023 12:58-0400 Diastolic blood pressure 82 mm[Hg] José Luis Astrid [facility] 09-24-2023 12:58-0400 Heart rate 89 /min José Luis Resendiz [facility] 09-24-2023 12:58-0400 Respiratory rate 18 /min José Luis Resendiz [facility] 09-24-2023 12:58-0400 SaO2% (BldA) [Mass fraction] 96 % José Luis Resendiz [facility] 09-24-2023 12:58-0400 Systolic blood pressure 125 mm[Hg] José Luis Resendiz [facility] 04-04-2022 15:50-0500 Diastolic blood pressure 70 mm[Hg] Tiffani Morales MD Work Phone: [facility] 04-04-2022 15:50-0500 Heart rate 73 /min Tiffani Morales MD Work Phone: [facility] 04-04-2022 15:50-0500 Respiratory rate 16 /min Tiffani Morales MD Work Phone: [facility] 04-04-2022 15:50-0500 SaO2% (BldA) [Mass fraction] 97 % Tiffani Morales MD Work Phone: [facility] 04-04-2022 15:50-0500 Systolic blood pressure 117 mm[Hg] Tiffani Morales MD Work Phone: [facility] 04-04-2022 15:26-0500 Body temperature 97.2 [degF] Tiffani Morales MD Work Phone: [facility] 04-04-2022 12:51-0500 Body height 172.7 cm Tiffani Morales MD Work Phone: [facility] 04-04-2022 12:51-0500 Body weight 45.81 kg Tiffani Morales MD Work Phone: [facility] 01-01-2022 16:50-0400 Diastolic blood pressure 69 mm[Hg] Tiffani Morales MD Work Phone: [facility] 01-01-2022 16:50-0400 Heart rate 69 /min Tiffani Morales MD Work Phone: [facility] 01-01-2022 16:50-0400 Respiratory rate 16 /min Tiffani Morales MD Work Phone: [facility] 01-01-2022 16:50-0400 SaO2% (BldA) [Mass fraction] 95 % Tiffani Morales MD Work Phone: [facility] 01-01-2022 16:50-0400 Systolic blood pressure 110 mm[Hg] Tiffani Morales MD Work Phone: [facility] 01-01-2022 16:33-0400 Body temperature 98.1 [degF] Tiffani Morales MD Work Phone: [facility] 01-01-2022 15:39-0400 Body height 172.7 cm Tiffani Morales MD Work Phone: [facility] 01-01-2022 15:39-0400 Body weight 45.81 kg Tiffani Morales MD Work Phone: [facility] 06-20-2021 13:37-0400 Body height 174 cm Robb Evans MD Work Phone: [facility] 06-20-2021 13:37-0400 Body mass index (BMI) [Ratio] 17.98 kg/m2 Robb Eavns MD Work Phone: [facility] 06-20-2021 13:37-0400 Body weight 54.43 kg Robb Evans MD Work Phone: [facility] 06-20-2021 13:37-0400 Diastolic blood pressure 69 mm[Hg] Robb Evans MD Work Phone: [facility] 06-20-2021 13:37-0400 Heart rate 77 /min Robb Evans MD Work Phone: [facility] 04-05-2022 13:37-0400 Respiratory rate 16 /min Robb Evans MD Work Phone: [facility] 06-20-2021 13:37-0400 SaO2% (BldA) [Mass fraction] 95 % Robb Evans MD Work Phone: [facility] 06-20-2021 13:37-0400 Systolic blood pressure 102 mm[Hg] Robb Evans MD Work Phone: [facility] 07-18-2020 14:10-0400 Body height 174 cm Robb Evans MD Work Phone: [facility] 07-18-2020 14:10-0400 Body mass index (BMI) [Ratio] 17.38 kg/m2 Robb Evans MD Work Phone: [facility] 07-18-2020 14:10-0400 Body weight 52.62 kg Robb Evans MD Work Phone: [facility] 07-18-2020 14:10-0400 Diastolic blood pressure 68 mm[Hg] Robb Evans MD Work Phone: [facility] 07-18-2020 14:10-0400 Heart rate 84 /min Robb Evans MD Work Phone: [facility] 07-18-2020 14:10-0400 Respiratory rate 16 /min Robb Evans MD Work Phone: [facility] 07-18-2020 14:10-0400 SaO2% (BldA) [Mass fraction] 96 % Robb Evans MD Work Phone: [facility] 07-18-2020 14:10-0400 Systolic blood pressure 94 mm[Hg] Robb Evans MD Work Phone: [facility] Encounters Encounter Date Encounter Type Care Provider Facility Start: 03-23-2024 ambulatory Sandoval Zarate lity:Thuy Start: 02-25-2024 End: 02-25-2024 ambulatory Sandoval Rae [facility] Start: 02-25-2024 End: 02-25-2024 Patient encounter procedure Sandoval Rae [facility] Start: 02-21-2024 End: 02-21-2024 ambulatory [facility] Start: 02-21-2024 End: 02-21-2024 Patient encounter procedure Sandoval Rae [facility] Start: 02-18-2024 End: 02-18-2024 ambulatory Lala L Carolee Facility:[facility] [place] [facility] Start: 02-05-2024 End: 02-05-2024 ambulatory Sandoval Rae Facility[facility] Start: 02-05-2024 End: 02-05-2024 Patient encounter procedure Sandoval Rae [facility] Start: 01-27-2024 End: 01-27-2024 ambulatory Teresad A. Butch Facility:[facility] Start: 01-27-2024 End: 01-27-2024 Patient encounter procedure Teresad A. Gómezli [facility] Start: 01-16-2024 End: 01-16-2024 ambulatory Mohamad A. Momichelineli Facility:[facility] [place] Start: 01-16-2024 End: 01-16-2024 Patient encounter procedure Mohamad A. Mouchli [facility] Start: 11-26-2023 End: 11-26-2023 ambulatory Lala L Carolee Facility: [facility] [place] [facility] Start: 10-03-2023 End: 10-03-2023 ambulatory Lala L Carolee Facility:[facility] [place] Start: 09-27-2023 ambulatory CHANCE ZACH Facility:[facility] Start: 09-24-2023 End: 09-24-2023 Emergency department patient visit José Luis Resendiz [facility] Start: 05-08-2022 Telephone encounter Tiffani valencia MD Work Phone: Gastroenterology Comment on above: Patient Question Start: 05-07-2022 End: 05-08-2022 ambulatory IRINA SEGURA Facility:[facility] Start: 04-24-2022 End: 04-24-2022 [facility] Start: 04-24-2022 End: 04-24-2022 Nutrition therapy Tiffani Morales MD Work Phone: Gastroenterology Comment on above: Severe malnutrition (HCC) (Primary Dx) Start: 04-24-2022 End: 04-24-2022 Telemedicine consultation with patient Tiffani Morales MD Work Phone: [facility] Start: 04-20-2022 Refill Robb Evans MD Work Phone: [facility] Start: 04-12-2022 Refill Saúl SHORT [facility] Comment on above: Generalized anxiety disorder Start: 04-05-2022 Telephone encounter Tiffani valencia MD Work Phone: Gastroenterology Comment on above: Refill Request Start: 04-04-2022 End: 04-04-2022 ambulatory FREDERICK CHAVES Facility:[facility] Start: 04-04-2022 End: 04-04-2022 Subsequent hospital visit by physician Tiffani Morales MD Work Phone: Gastroenterology Comment on above: 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] Start: 03-31-2022 End: 04-01-[address] DOCTOR BERMEO Facility:[facility] Start: 03-28-2022 End: 03-29-[address] BRITNI SIMPSON Facility:[facility] Start: 01-11-2023 Telephone encounter Eduardo Harrington [employer] manufacturing consultant Comment on above: Appointment Renetta berumen Start: 03-20-2022 Refill Saúl Kaur DEJA [facility] Start: 03-14-2022 Refill Anastasiya Mosqueda PA-C Work Phone: Gastroenterology Comment on above: Refill Request Start: 03-09-2022 Refill Gokul Maurilio CAMP[facility]LL [facility] Comment on above: Generalized anxiety disorder Start: 03-01-2022 End: 03-01-2022 [facility] Start: 03-01-2022 End: 03-01-2022 Nutrition therapy Tiffani Morales MD Work Phone: Gastroenterology Comment on above: Severe protein-calor ie malnutrition (HCC) (Primary Dx); 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); Weight loss; Severe malnutrition (HCC) Start: 03-01-2022 End: 03-01-2022 Telemedicine consultation with patient Tiffani Morales MD Work Phone: [facility] Start: 02-07-2022 ambulatory Yan wood MD Work Phone: Gastroenterology Start: 02-07-2022 Patient encounter procedure Yan Garcia Jr., MD Work Phone: [facility] Start: 02-07-2022 Refill Anastasiya Mosqueda PA-C Work Phone: Gastroenterology Comment on above: Refill Request Start: 02-06-2022 End: 02-07-2022 ambulatory [facility] Start: 02-05-2022 End: 02-05-2022 ambulatory [facility] Start: 01-29-2022 ambulatory Dolores Lopez RN [facility] Start: 01-29-2022 Patient encounter procedure Dolores Lopez RN [facility] Start: 01-29-2022 End: 01-29-2022 Subsequent hospital visit by physician Capsule Work Phone: Gastroenterology Comment on above: Arrived Start: 01-17-2022 ambulatory Roshni Milligan Alphonso Reyes ty:Thuy Start: 01-16-2022 Refill [facility] Maurilio CAMPBELL [facility] Start: 01-05-2022 Telephone encounter Anastasiya kimbrough PA-C Work Phone: Gastroenterology Comment on above: Patient Question; Re turning Patient's Call; Results Nausea (Primary Dx); Weight loss; Small bowel polyp Results (Post-EGD) Start: 01-03-2022 Telephone encounter Anastasiyajamal kimbrough PA-C Work Phone: Gastroenterology Comment on above: Results Start: 01-02-2022 Telephone encounter Anastasiya kimbrough PA-C Work Phone: [facility] Comment on above: Results Start: 01-01-2022 End: 01-01-2022 ambulatory KIRSTEN DALTON Facility:[facility] Start: 01-01-2022 End: 01-01-2022 Subsequent hospital visit by physician Tiffani Morales MD Work Phone: Gastroenterology Comment on above: Nausea and vomiting, unspecified vomiting type [R11.2] Start: 12-25-2021 Telephone encounter Rima Gerard [employer] manufacturing consultant Comment on above: Appointment Start: 12-19-2021 End: 12-19-2021 [facility] Start: 12-15-2021 End: 12-16-2021 ambulatory Anastasiya Mosqueda PA-C Work Phone: Gastroenterology Comment on above: Nausea and vomiting, unspecified vomiting type (Primary Dx); Left upper quadrant abdominal pain; Weight loss Start: 12-15-2021 End: 12-15-2021 Telemedicine consultation with patient Anastasiya AGUILAR-C Work Phone: [facility] Start: 12-14-2021 End: 12-14-2021 ambulatory ANASTASIYA MOSQUEDA Facility:[facility] Start: 12-14-2021 End: 12-14-2021 Patient encounter procedure Anastasiya Mosqueda PA-C Work Phone: Gastroenterology Comment on above: APPOINTMENT CANCELLE D (Primary Dx) Start: 12-14-2021 End: 12-14-2021 Telemedicine consultation with patient Anastasiya Mosqueda PA-C Work Phone: [facility] Start: 12-13-2021 Telephone encounter Anastasiya kimbrough JEFFDeyaOsbaldo Work Phone: Gastroenterology Comment on above: Appointment Start: 12-11-2021 End: 12-11-2021 ambulatory CHILD WELFARE DIRECTOR CRISTINA IQBAL Facility:[facility] Start: 12-03-2021 End: 12-03-2021 Emergency department patient visit Vipin Chitra Facility:[facility] Start: 11-14-2021 End: 11-14-2021 ambulatory CHILD WELFARE DIRECTOR CRISTINA IQBAL Facility:[facility] Start: 11-09-2021 End: 11-09-2021 ambulatory CHILD WELFARE DIRECTOR CRISTINA IQBAL Facility:[facility] Start: 10-04-2021 End: 10-04-2021 ambulatory CHILD WELFARE DIRECTOR CRISTINA ROGER Facility:[facility] Start: 10-03-2021 Refill Robb Evans MD Work Phone: [facility] Start: 09-27-2021 Documentation procedure Zuleyma Evans MD Work Phone: [facility] Start: 09-25-2021 End: 09-26-2021 ambulatory ROBB EVANS Facility:[facility] Start: 09-19-2021 End: 09-19-2021 [facility] Start: 09-19-2021 End: 09-19-2021 Office outpatient visit 25 minutes Robb Evans MD Work Phone: [facility] Comment on above: Bipolar 1 disorder, mixed, mild (HCC) (Primary Dx); Generalized anxiety disorder; Long-term use of high-risk medication Start: 09-15-2021 Refill Fartun Mack LPN [facility] Comment on above: Generalized anxiety disorder Start: 06-20-2021 End: 06-20-2021 [facility] Start: 06-20-2021 End: 06-20-2021 Office outpatient visit 25 minutes Robb Evans MD Work Phone: [facility] Comment on above: Generalized anxiety disorder (Primary Dx); Bipolar 1 disorder, mixed, mild (HCC); Long-term use of high-risk medication; Post traumatic stress disorder (PTSD) Start: 04-03-2021 Refill Gokul Maurilio [facility] Comment on above: Generalized anxiety disorder Start: 03-01-2021 End: 03-01-2021 Phys/qhp telephone evaluation 11-20 min Robb Evans MD Work Phone: [facility] Comment on above: Bipolar 1 disorder, mixed, mild (HCC) (Primary Dx); Generalized anxiety disorder; Long-term use of high-risk medication Start: 03-01-2021 End: 03-01-2021 ambulatory CRISTINA [facility] Start: 01-31-2021 Refill Gokul Maurilio [facility] Comment on above: Generalized anxiety disorder Start: 12-29-2020 Refill Gokul Maurilio [facility] Comment on above: Generalized anxiety disorder Start: 08-22-2020 End: 08-22-2020 Phys/qhp telephone evaluation 11-20 min Robb Evans MD Work Phone: [facility] Comment on above: 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); Generalized anxiety disorder; Long-term use of high-risk medication Start: 07-18-2020 End: 07-18-2020 Office outpatient visit 25 minutes Robb Evans MD Work Phone: [facility] Comment on above: Generalized anxiety disorder (Primary Dx); Moderate mixed bipolar I disorder (HCC); Long-term use of high-risk medication Procedures Date Procedure Procedure Detail Performing Clinician Start: 02-25-2024 Esophagogastroduodenoscopy Sandoval oneal Start: 04-04-2022 Endoscopy upper small intestine Tiffani Morales MD Work Phone: Start: 01-01-2022 Esophagogastroduodenoscopy transoral diagnostic Anastasiya Jaylin PAIGE Work Phone: Start: 05-08-2019 Colonoscopy Gokul Maurilio [...] abnormalties Start: 11-01-2016 Cardiovascular stress testing José Lusi vela Comment on above: Normal; EF 74%, normal study, nucleur Appendectomy José Luis Resendiz section José Luis thomas Cholecystectomy José Luis Resendiz Foot repair José Luis Resendiz H/O: surgery History of abdom inal surgery Sandoval Montelongomichelinekimmy History of cholecystectomy S/P cholecyste ctomy Sandoval Rae Oral surgery (qualifier value) José Luis Resendiz Total hysterectomy José Luis nolasco Plan of Treatment Date Care Activity Detail Author Start: 05-08-2029 Screening for malign ant neoplasm of colon [facility] Start: 04-27-2022 End: 04-27-2022 Patient encounter procedure 04/27/2022 Office Visit Psychiatry Robb Evans MD [facility] [place] [address] [facility] Start: 03-26-2022 End: 03-26-2022 Patient encounter procedure 03/26/2022 Office Visit Psychiatry Robb Evans MD [address] [place] [address] [facility] Start: 03-18-2022 DEPRESSION ASSESSMENT DEPRESSION ASS ESSMENT [facility] Start: 03-02-2022 End: 03-01-2023 25-hydroxyvitamin D3 [Mass/volume] in Serum or Plasma VITAMIN D 25 HYDROXY Lab Routine Severe protein-calorie malnutrition (HCC) Expected: 03/02/2022 (Approximate), Expires: 03/01/2023 [facility] Work Phone: Comment on above: Expected: 03/02/2022 (Approximate), Expires: 03/01/2023 Start: 03-02-2022 End: 03-01-2023 Alpha tocopherol [Mass/volume] in Serum or Plasma VITAMIN E/TOCOPHEROL Lab Routine Severe protein-calorie malnutrition (HCC) Expected: 03/02/2022 (Approximate), Expires: 03/01/2023 [facility] Work Phone: Comment on above: Expected: 03/02/2022 (Approximate), Expires: 03/01/2023 Start: 03-02-2022 End: 03-01-2023 C reactive protein [Mass/volume] in Serum or Plasma C-REACTIVE PROTEIN (CRP) Lab Routine Severe protein-calorie malnutrition (HCC) Expected: 03/02/2022 (Approximate), Expires: 03/01/2023 [facility] Work Phone: Comment on above: Expected: 03/02/2022 (Approximate), Expires: 03/01/2023 Start: 03-02-2022 End: 03-01-2023 CBC W Auto Differential panel - Blood CBC + DIFF Lab Routine Severe protein-calorie malnutrition (HCC) Expected: 03/02/2022 (Approximate), Expires: 03/01/2023 [facility] Work Phone: Comment on above: Expected: 03/02/2022 (Approximate), Expires: 03/01/2023 Start: 03-02-2022 End: 03-01-2023 Cobalamin (Vitamin B12) [Mass/volume] in Serum or Plasma VITAMIN B12 BLOOD Lab Routine Severe protein-calorie malnutrition (HCC) Expected: 03/02/2022 (Approximate), Expires: 03/01/2023 [facility] Work Phone: Comment on above: Expected: 03/02/2022 (Approximate), Expires: 03/01/2023 Start: 03-02-2022 End: 03-01-2023 Comprehensive metabolic 2000 panel - Serum or Plasma COMP METABOLIC PANEL Lab Routine Severe protein-calorie malnutrition (HCC) Expected: 03/02/2022 (Approximate), Expires: 03/01/2023 [facility] Work Phone: Comment on above: Expected: 03/02/2022 (Approximate), Expires: 03/01/2023 Start: 03-02-2022 End: 03-01-2023 COPPER BLOOD COPPER BLOOD Lab Routine Severe protein-calorie malnutrition (HCC) Expected: 03/02/2022 (Approximate), Expires: 03/01/2023 [facility] Work Phone: Comment on above: Expected: 03/02/2022 (Approximate), Expires: 03/01/2023 Start: 03-02-2022 End: 03-01-2023 FATTY ACIDS PROFILE, ESSENTIAL FATTY ACIDS PROFILE, ESSENTIAL Lab Routine Severe protein-calorie malnutrition (HCC) Expected: 03/02/2022 (Approximate), Expires: 03/01/2023 [facility] Work Phone: Comment on above: Expected: 03/02/2022 (Approximate), Expires: 03/01/2023 Start: 03-02-2022 End: 03-01-2023 Ferritin [Mass/volume] in Serum or Plasma FERRITIN BLD Lab Routine Severe protein-calorie malnutrition (HCC) Expected: 03/02/2022 (Approximate), Expires: 03/01/2023 [facility] Work Phone: Comment on above: Expected: 03/02/2022 (Approximate), Expires: 03/01/2023 Start: 03-02-2022 End: 03-01-2023 Iron and Iron binding capacity panel - Serum or Plasma IRON + TIBC Lab Routine Severe protein-calorie malnutrition (HCC) Expected: 03/02/2022 (Approximate), Expires: 03/01/2023 [facility] Work Phone: Comment on above: Expected: 03/02/2022 (Approximate), Expires: 03/01/2023 Start: 03-02-2022 End: 03-01-2023 Magnesium [Mass/volume] in Serum or Plasma MAGNESIUM BLD Lab Routine Severe protein-calorie malnutrition (HCC) Expected: 03/02/2022 (Approximate), Expires: 03/01/2023 [facility] Work Phone: Comment on above: Expected: 03/02/2022 (Approximate), Expires: 03/01/2023 Start: 03-02-2022 End: 03-01-2023 Methylmalonate [Moles/volume] in Serum or Plasma METHYLMALONIC ACID Lab Routine Severe protein-calorie malnutrition (HCC) Expected: 03/02/2022 (Approximate), Expires: 03/01/2023 [facility] Work Phone: Comment on above: Expected: 03/02/2022 (Approximate), Expires: 03/01/2023 Start: 03-02-2022 End: 03-01-2023 Phosphate [Mass/volume] in Serum or Plasma PHOSPHORUS INORGANIC Lab Routine Severe protein-calorie malnutrition (HCC) Expected: 03/02/2022 (Approximate), Expires: 03/01/2023 [facility] Work Phone: Comment on above: Expected: 03/02/2022 (Approximate), Expires: 03/01/2023 Start: 03-02-2022 End: 03-01-2023 PT panel - Platelet poor plasma by Coagulation assay PROTHROMBIN TIME/PT Lab Routine Severe protein-calorie malnutrition (HCC) Expected: 03/02/2022 (Approximate), Expires: 03/01/2023 [facility] Work Phone: Comment on above: Expected: 03/02/2022 (Approximate), Expires: 03/01/2023 Start: 03-02-2022 End: 03-01-2023 RBC FOLATE RBC FOLATE Lab Routine Severe protein-calorie malnutrition (HCC) Expected: 03/02/2022 (Approximate), Expires: 03/01/2023 [facility] Work Phone: Comment on above: Expected: 03/02/2022 (Approximate), Expires: 03/01/2023 Start: 03-02-2022 End: 03-01-2023 Retinol [Mass/volume] in Serum or Plasma VITAMIN A/RETINOL Lab Routine Severe protein-calorie malnutrition (HCC) Expected: 03/02/2022 (Approximate), Expires: 03/01/2023 [facility] Work Phone: Comment on above: Expected: 03/02/2022 (Approximate), Expires: 03/01/2023 Start: 03-02-2022 End: 03-01-2023 Selenium [Mass/volume] in Blood SELENIUM BLOOD Lab Routine Severe protein-calorie malnutrition (HCC) Expected: 03/02/2022 (Approximate), Expires: 03/01/2023 [facility] Work Phone: Comment on above: Expected: 03/02/2022 (Approximate), Expires: 03/01/2023 Start: 03-02-2022 End: 03-01-2023 Triglyceride [Mass/volume] in Serum or Plasma TRIGLYCERIDES BLD Lab Routine Severe protein-calorie malnutrition (HCC) Expected: 03/02/2022 (Approximate), Expires: 03/01/2023 [facility] Work Phone: Comment on above: Expected: 03/02/2022 (Approximate), Expires: 03/01/2023 Start: 03-02-2022 End: 03-01-2023 Zinc [Mass/volume] in Serum or Plasma ZINC BLD Lab Routine Severe protein-calorie malnutrition (HCC) Expected: 03/02/2022 (Approximate), Expires: 03/01/2023 [facility] Work Phone: Comment on above: Expected: 03/02/2022 (Approximate), Expires: 03/01/2023 Start: 12-19-2021 End: 12-19-2021 Patient encounter procedure 12/19/2021 Office Visit Robb Patton MD [address] [facility] [place] [id number] [facility] Start: 11-16-2021 Influenza vaccination [facility] Start: 09-19-2021 End: 09-19-2021 Patient encounter procedure 09/19/2021 Office Visit Robb Patton MD [address] [facility] [address] [place] [phone] [facility] Start: 09-15-2021 End: 09-15-2021 Patient encounter procedure 09/15/2021 Office Visit Robb Patton MD [address] [facility] [address] [place] [phone] [facility] Start: 05-30-2021 End: 05-30-2021 Patient encounter procedure 05/30/2021 Office Visit Robb Patton MD [address] [facility] [address] [place] [phone] [facility] Start: 03-18-2021 DEPRESSION ASSESSMENT DEPRESSION ASS [facility] Start: 02-17-2021 End: 02-17-2021 Patient encounter procedure 02/17/2021 Office Visit Robb Patton MD [address] [facility] [address] [place] [phone] [facility] Start: 02-03-2021 End: 02-03-2021 Patient encounter procedure 02/03/2021 Office Visit Robb Patton MD [address] [facility] [address] [place] [phone] [facility] Start: 11-16-2020 Influenza vaccination [facility] Start: 10-28-2020 End: 10-28-2020 Patient encounter procedure 10/28/2020 Office Visit Psychiatry Robb Evans MD [address] [place] [address] [phone] [facility] Start: 2020 Administration of he rpes zoster vaccine Zoster Vaccines (1 of 2) [facility] Start: 2020 Screening for malign ant neoplasm of colon [facility] Start: 2020 SHINGRIX VACCINE (1 of 2) SHINGRIX VACCINE (1 of 2) [facility] Start: 08-22-2020 End: 08-22-2020 Telemedicine consultation with patient 08/22/2020 Telemedicine Psychiatry Robb Evans MD [address] [place] [address] [phone] [facility] Start: 10-07-2015 COLOGUARD (FIT-DNA) COLOGUARD (FIT-D NA) [facility] Start: 10-07-2015 Colonoscopy COLONOSCOPY [facility] Start: 10-07-2015 COLORECTAL CANCER SCREENING COLORECTAL CANCER SCREENING [facility] Start: 10-07-[address] COLONOGRAPHY [facility] Start: 10-07-2015 DIABETES SCREEN DIABETES SCREEN [facility] Start: 10-07-2015 FECAL OCCULT BLOOD FECAL OCCULT BLOO D [facility] Start: 10-07-2015 LIPID SCREEN LIPID SCREEN [facility] Start: 10-07-2015 SIGMOIDOSCOPY SIGMOIDOSCOPY [facility] Start: 01-02-2015 PAP TESTING PAP TESTING [facility] Start: 2010 Mammography MAMMOGRAM [facility] Start: 2010 Screening for malign ant neoplasm of breast Mammogram [facility] Start: 2010 Screening mammography Mammogram [facility] Start: 2000 HPV TESTING HPV TESTING [facility] Start: 1989 Urine microalbumin profile DTAP,TDAP,TD (1 - Tdap) [facility] Start: 1988 Hepatitis C screening Hepatitis C Sc reening [facility] Start: 1988 HIV SCREENING HIV SCREENING [facility] Start: 1986 COVID-19 Vaccine (1) COVID-19 Vaccin e (1) [facility] Start: 1985 HIV screening HIV Screening [facility] Start: 1982 COVID-19 Vaccine (1) COVID-19 Vaccin e (1) [facility] Start: 1976 PNEUMOCOCCAL (1 - PCV) PNEUMOCOCCAL (1 - PCV) [facility] Start: 1976 Pneumococcal Vaccine : Ped or At-Risk (1 - PCV) Pneumococcal Vaccine: Ped or At-Risk (1 - PCV) [facility] Start: 1976 Pneumococcal Vaccine : Ped or At-Risk (1 of 2 - PPSV23) Pneumococcal Vaccine: Ped or At-Risk (1 of 2 - PPSV23) [facility] Start: 1976 Pneumococcal Vaccine : Ped or At-Risk (1 of 4 - PCV13) Pneumococcal Vaccine: Ped or At-Risk (1 of 4 - PCV13) [facility] Start: 10-07-1975 COVID-19 Vaccine (1) COVID-19 Vaccin e (1) [facility] Start: 1973 History and physical examination, annual for health maintenance Wellness Visit [facility] Start: 04-08-1971 COVID-19 Vaccine (#1) COVID-19 Vacci ne (#1) [facility] Start: 1970 HEPATITIS B (1 of 3 - 3-dose series) HEPATITIS B (1 of 3 - 3-dose series) [facility] Start: 1970 Screening for malign ant neoplasm of cervix Pap Smear [facility] Start: 1970 Screening for malign ant neoplasm of colon [facility] Start: 1970 Screening mammography Mammogram [facility] Start: 1970 Tetanus vaccination Tetanus: Every 1 0yrs [facility] End: 09-19-2022 Comprehensive metabolic 2000 panel - Serum or Plasma Comprehensive Metabolic Panel Lab Routine Generalized anxiety disorder Long-term use of high-risk medication Bipolar 1 disorder, mixed, mild (HCC) 1 Occurrences starting 09/19/2021 until 09/19/2022 [facility] Comment on above: 1 Occurrences starti ng 09/19/2021 until 09/19/2022 End: 04-01-2023 Ct abdomen & pelvis w/contrast material CT ENTEROGRAPHY W IVCON Radiology Routine 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) Weight loss 1 Occurrences starting 03/02/2022 until 04/01/2023 [facility] Work Phone: Comment on above: 1 Occurrences starti ng 03/02/2022 until 04/01/2023 End: 12-15-2022 EGD DIAGNOSTIC EGD DIAGNOSTIC Endoscopy Routine Nausea and vomiting, unspecified vomiting type Left upper quadrant abdominal pain 1 Occurrences starting 12/15/2021 until 12/15/2022 [facility] Work Phone: Comment on above: 1 Occurrences starti ng 12/15/2021 until 12/15/2022 End: 03-02-2023 ENTEROSCOPY ENTEROSCOPY Endoscopy Routine 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) 1 Occurrences starting 03/02/2022 until 03/02/2023 [facility] Work Phone: Comment on above: 1 Occurrences starti ng 03/02/2022 until 03/02/2023 FAT, FECAL QUAL FAT, FECAL QUAL Lab Routine Weight loss Ordered: 01/05/2022 [facility] Work Phone: Comment on above: Ordered: 01/05/2022 End: 02-04-2023 Gastric emptying imaging study NM GASTRIC EMPTYING SOLID Radiology Routine Nausea 1 Occurrences starting 01/05/2022 until 02/04/2023 [facility] Work Phone: Comment on above: 1 Occurrences starti ng 01/05/2022 until 02/04/2023 End: 01-05-2023 Gi imag intraluminal esophagus-ileum w/i&r CAPSULE ENDOSCOPY SMALL BOWEL Endoscopy Routine Small bowel polyp 1 Occurrences starting 01/05/2022 until 01/05/2023 [facility] Work Phone: Comment on above: 1 Occurrences starti ng 01/05/2022 until 01/05/2023 End: 09-19-2022 Lipid 1996 panel - Serum or Plasma Lipid Panel Lab Routine Generalized anxiety disorder Long-term use of high-risk medication Bipolar 1 disorder, mixed, mild (HCC) 1 Occurrences starting 09/19/2021 until 09/19/2022 [facility] Comment on above: 1 Occurrences starti ng 09/19/2021 until 09/19/2022 PANC ELASTASE, FECAL PANC ELASTA SE, FECAL Lab Routine Weight loss Ordered: 01/05/2022 [facility] Work Phone: Comment on above: Ordered: 01/05/2022 End: 09-19-2022 Prolactin [Mass/volume] in Serum or Plasma Prolactin Lab Routine Generalized anxiety disorder Long-term use of high-risk medication Bipolar 1 disorder, mixed, mild (HCC) 1 Occurrences starting 09/19/2021 until 09/19/2022 [facility] Work Phone: Comment on above: 1 Occurrences starti ng 09/19/2021 until 09/19/2022 End: 04-01-2023 Radiologic exam chest 2 views XR CHEST 2V FRONTAL/LAT Radiology Routine Weight loss 1 Occurrences starting 03/02/2022 until 04/01/2023 [facility] Work Phone: Comment on above: 1 Occurrences starti ng 03/02/2022 until 04/01/2023 SURGICAL PATHOLOGY [facility] Work Phone: Comment on above: Release Upon Orderin g for 1 Occurrences starting 01/01/2022, 1 completed SURGICAL PATHOLOGY [facility] Work Phone: Comment on above: Release Upon Orderin g for 1 Occurrences starting 04/04/2022, 1 completed [facility] Immunizations Immunization Date Immunization Notes Care Provider Dany ordoñez 10-10-2022 tetanus toxoid, reduced diphtheria toxoid, and acellular pertussis vaccine, adsorbed Sandoval Rae [facility] Rashaun NEGATED: Highlighted row has not occurred!01-16-2024 influenza virus vaccine, unspecified formulation Paradiseamad Mouchli [facility] NEGATED: Highlighted row has not occurred!05-24-2020 influenza virus vaccine, unspecified formulation José Luis Resendiz [facility] Payers Date Payer Category Payer Medicaid [id number] 2017 Medicaid [id number] 1970 Unknown [id number] 2.16.8 40.1.605660.3.579.2.727 1970 Unknown [id number] 2.16.8 40.1.816474.3.579.2.727 1970 Unknown [id number] 2.16. 840.1.297812.3.579.2.903 1970 Unknown [id number] 2.16. 840.1.447188.3.579.2.903 1970 Unknown [id number] 2.16. 840.1.525019.3.579.2.903 1970 Unknown [id number] 2.16. 840.1.260005.3.579.2.903 1970 Unknown [id number] 2.16.84 0.1.141460.3.579.2.593 1970 Unknown [id number] 2.16.84 0.1.823083.3.579.2.593 1970 Unknown [id number] 2.16.84 0.1.991535.3.579.2.593 1970 Unknown [id number] 2.16.84 0.1.387774.3.579.2.593 1970 Unknown [id number] 2.16.84 0.1.970165.3.579.2.593 1970 Unknown [id number] 2.16.84 0.1.224917.3.579.2.593 1970 Unknown [id number] 2.16.84 0.1.194285.3.579.2.593 1970 Unknown [id number] 2.16.84 0.1.047952.3.579.2.593 1970 Unknown [id number] 2.16.8 40.1.636009.3.579.2.727 1970 Unknown [id number] 2.16.8 40.1.938797.3.579.2.727 1970 Unknown [id number] 2.16.8 40.1.294014.3.579.2.727 1970 Unknown [id number] 2.16.8 40.1.416197.3.579.2.727 1970 Unknown [id number] 2.16.8 40.1.989792.3.579.2.727 1970 Unknown [id number] 2.16.8 40.1.126980.3.579.2.727 1970 Unknown [id number] 2.16.8 40.1.251463.3.579.2.727 1970 Unknown [id number] 2.16.8 40.1.778756.3.579.2.727 1970 Unknown [id number] 2.16.8 40.1.424677.3.579.2.727 1959 Unknown [id number] 1959 Unknown [id number] Social History Date Type Detail Facility Start: 07-18-2020 End: 01-01-2022 Tobacco smoking status MOIS Current every day smoker [facility] Start: 07-18-2020 End: 01-01-2022 Tobacco use and exposure Never used [facility] Start: 07-18-2020 End: 04-04-2022 Alcohol intake Ex-drinker (finding) [facility] Start: 1970 Sex Assigned At Not on file [facility] Start: 09-09-2021 End: 02-05-2022 Exposure to SARS-CoV-2 (event) Not sure [facility] Start: 12-03-2021 End: 12-14-2021 Exposure to SARS-CoV-2 (event) Unable to assess [facility] Start: 06-10-2021 End: 06-20-2021 Exposure to SARS-CoV-2 (event) Yes [facility] Tobacco smoking stat us MOIS Tobacco smoking consumption unknown [facility] Start: 1970 [facility] History of tobacco use Cigarette Smoker [facility] Start: 01-01-2022 Cigarettes smoked current (pack per day) - Reported 0.5 [facility] History of tobacco use Passive smoker [facility] Start: 09-24-2023 Tobacco smoking status Ex-smoker (fi nding) [facility] Comment on above: quit smoking 2023 Sex Assigned At Female [facility] Start: 01-16-2024 End: 02-21-2024 Tobacco smoking status Light tobacco smoker (finding) [facility] Tobacco smoking status Never [facility] Functional Status Date Assessment Result Facility 02-25-2024 Functional Status N/A [facility] 02-21-2024 Functional Status N/A [facility] 01-16-2024 Functional Status N/A [facility] 09-24-2023 Functional Status N/A [facility] Clinical Notes 07-20-2020 to 02-25-2024 Note Date & Type Note Facility 02-25-2024 Evaluation + Plan note Extrac kitty from: Title:ANES Post-operative Note---General Author: Dakota Rivas MD Date:02/25/24 Plan Transfer/Discharge: Transfer/Discharge Discharge when meets criteria ( To home ). Extracted from: Title:ANES Pre-operative Note 2022 Author:Dakota Rhoades Date:02/25/24 Plan [place] [employer] ([employer]A) physical status classification: Class III. Anesthetic Preoperative Plan: Anesthesia General. Future Scheduled Tests Laboratory* Giardia lamblia, Direct Detection EIA 11/26/23 * O & P Exam, Routine 11/26/23 * Rotavirus Ab 11/26/23 * Clostridium Difficile PCR 11/26/23 Radiology* CT Abdomen/Pelvis w/contrast (enterography) 01/30/24 * XR Small Bowel w/ Serial Films 02/10/24 [facility] 12-10-2024 Hospital Discharge instructions Patient Education 02/25/2024 11:02:59 Colon Polyps Colon Polyps Colon polyps are tissue growths inside the colon, which is part of the large intestine. They are one of the types of polyps that can grow in the body. A polyp may be a round bump or a mushroom-shapedgrowth. You could have one polyp or more than one. Most colon polyps are noncancerous (benign). However, some colon polyps can become cancerous over time. Finding and removing the polyps early can help prevent this. What are the causes? The exact cause of colon polyps is not known. What increases the risk? The following factors may make you more likely to develop this condition: Having a family history of colorectal cancer or colon polyps. Being older than 45 years of age. Being younger than 45 years of age and having a significant family history of colorectal cancer or colon polyps or a genetic condition that puts you at higher risk of getting colon polyps. Having inflammatory bowel disease, such as ulcerative colitis or Crohn's disease. Having certain conditions passed from parent to child (hereditary conditions), such as: ?Familial adenomatous polyposis (FAP). ?Moyer syndrome. ?Turcot syndrome. ?Peutz Jeghers syndrome. ?MUTYH-associated polyposis (MAP). Being overweight. Certain lifestyle factors. These include smoking cigarettes, drinking too much alcohol, not gettingenough exercise, and eating a diet that is high in fat and red meat and low in fiber. Having had childhood cancer that was treated with radiation of the abdomen. What are the signs or symptoms? Many times, there are no symptoms. If you have symptoms, they may include: Blood coming from the rectum during a bowel movement. Blood in the stool (feces). The blood may be bright red or very dark in color. Pain in the abdomen. A change in bowel habits, such as constipation or diarrhea. How is this diagnosed? This condition is diagnosed with a colonoscopy. This is a procedure in which a lighted, flexible scope is inserted into the opening between the buttocks (anus) and then passed into the colon to examine the area. Polyps are sometimes found when a colonoscopy is done as part of routine cancer screening tests. How is this treated? This condition is treated by removing any polyps that are found. Most polyps can be removed during a colonoscopy. Those polyps will then be tested for cancer. Additional treatment may be needed depending on the results of testing. Follow these instructions at home: Eating and drinking Eat foods that are high in fiber, such as fruits, vegetables, and whole grains. Eat foods that are high in calcium and vitamin D, such as milk, cheese, yogurt, eggs, liver, fish, and broccoli. Limit foods that are high in fat, such as fried foods and desserts. Limit the amount of red meat, precooked or cured meat, or other processed meat that you eat, such as hot dogs, sausages, bolivar, or meat loaves. Limit sugary drinks. Lifestyle Maintain a healthy weight, or lose weight if recommended by your health care provider. Exercise every day or as told by your health care provider. Do not use any products that contain nicotine or tobacco, such as cigarettes, e- cigarettes, and chewing tobacco. If you need help quitting, ask your health care provider. Do not drink alcohol if: ?Your health care provider tells you not to drink. ?You are , may be , or are planning to become . If you drink alcohol: ?Limit how much you use to: ?0 1 drink a day for women. ?0 2 drinks a day for men. ?Know how much alcohol is in your drink. In the [place] one drink equals one 12 oz bottle of beer (355 mL), one 5 oz glass of wine (148 mL), or one 1 oz glass of hard liquor (44 mL). General instructions Take cutx-raa-wznfoha and prescription medicines only as told by your health care provider. Keep all follow-up visits. This is important. This includes having regularly scheduled colonoscopies. Talk to your health care provider about when you need a colonoscopy. Contact a health care provider if: You have new or worsening bleeding during a bowel movement. You have new or increased blood in your stool. You have a change in bowel habits. You lose weight for no known reason. Summary Colon polyps are tissue growths inside the colon, which is part of the large intestine. They are one type of polyp that can grow in the body. Most colon polyps are noncancerous (benign), but some can become cancerous over time. This condition is diagnosed with a colonoscopy. This condition is treated by removing any polyps that are found. Most polyps can be removed during a colonoscopy. This information is not intended to replace advice given to you by your health care provider. Make sure you discuss any questions you have with your health care provider. Document Revised: 06/22/2020 Document Reviewed: 06/22/2020 [employer] Patient Education 2023 [place]. 02/25/2024 11:02:55 Hiatal Hernia Hiatal Hernia A hiatal hernia occurs when part of the stomach slides above the muscle that separates the abdomen from the chest (diaphragm). A person can be born with a hiatal hernia (congenital), or it may develop over time. In almost all cases of hiatal hernia, only the top part of the stomach pushes through the diaphragm. Many people have a hiatal hernia with no symptoms. The larger the hernia, the more likely it is that you will have symptoms. In some cases, a hiatal hernia allows stomach acid to flow back into the tube that carries food from your mouth to your stomach (esophagus). This may cause heartburn symptoms. The development of heartburn symptoms may mean that you have a condition called gastroesophageal reflux disease (GERD). What are the causes? This condition is caused by a weakness in the opening (hiatus) where the esophagus passes through the diaphragm to attach to the upper part of the stomach. A person may be born with a weakness in thehiatus, or a weakness can develop over time. What increases the risk? This condition is more likely to develop in: Older people. Age is a major risk factor for a hiatal hernia, especially if you are over the age of50. women. People who are overweight. People who have frequent constipation. What are the signs or symptoms? Symptoms of this condition usually develop in the form of GERD symptoms. Symptoms include: Heartburn. Upset stomach (indigestion). Trouble swallowing. Coughing or wheezing. Wheezing is making high-pitched whistling sounds when you breathe. Sore throat. Chest pain. Nausea and vomiting. How is this diagnosed? This condition may be diagnosed during testing for GERD. Tests that may be done include: X-rays of your stomach or chest. An upper gastrointestinal (GI) series. This is an X-ray exam of your GI tract that is taken after you swallow a chalky liquid that shows up clearly on the X-ray. Endoscopy. This is a procedure to look into your stomach using a thin, flexible tube that has a tiny camera and light on the end of it. How is this treated? This condition may be treated by: Dietary and lifestyle changes to help reduce GERD symptoms. Medicines. These may include: ?Xxaj-lxq-haabyrc antacids. ?Medicines that make your stomach empty more quickly. ?Medicines that block the production of stomach acid (H2 blockers). ?Stronger medicines to reduce stomach acid (proton pump inhibitors). Surgery to repair the hernia, if other treatments are not helping. If you have no symptoms, you may not need treatment. Follow these instructions at home: Lifestyle and activity Do not use any products that contain nicotine or tobacco. These products include cigarettes, chewing tobacco, and vaping devices, such as e-cigarettes. If you need help quitting, ask your health careprovider. Try to achieve and maintain a healthy body weight. Avoid putting pressure on your abdomen. Anything that puts pressure on your abdomen increases the amount of acid that may be pushed up into your esophagus. ?Avoid bending over, especially after eating. ?Raise the head of your bed by putting blocks under the legs. This keeps your head and esophagus higher than your stomach. ?Do not wear tight clothing around your chest or stomach. ?Try not to strain when having a bowel movement, when urinating, or when lifting heavy objects. Eating and drinking Avoid foods that can worsen GERD symptoms. These may include: ?Fatty foods, like fried foods. ?Clarion fruits, like oranges or lemon. ?Other foods and drinks that contain acid, like orange juice or tomatoes. ?Spicy food. ?Chocolate. Eat frequent small meals instead of three large meals a day. This helps prevent your stomach from getting too full. ?Eat slowly. ?Do not lie down right after eating. ?Do not eat 1 2 hours before bed. Do not drink beverages with caffeine. These include cola, coffee, cocoa, and tea. Do not drink alcohol. General instructions Take apav-jee-vfdmbrt and prescription medicines only as told by your health care provider. Keep all follow-up visits. Your health care provider will want to check that any new prescribed medicines are helping your symptoms. Contact a health care provider if: Your symptoms are not controlled with medicines or lifestyle changes. You are having trouble swallowing. You have coughing or wheezing that will not go away. Your pain is getting worse. Your pain spreads to your arms, neck, jaw, teeth, or back. You feel nauseous or you vomit. Get help right away if: You have shortness of breath. You vomit blood. You have bright red blood in your stools. You have black, tarry stools. These symptoms may be an emergency. Get help right away. Call 911. Do not wait to see if the symptoms will go away. Do not drive yourself to the hospital. Summary A hiatal hernia occurs when part of the stomach slides above the muscle that separates the abdomen from the chest. A person may be born with a weakness in the hiatus, or a weakness can develop over time. Symptoms of a hiatal hernia may include heartburn, trouble swallowing, or sore throat. Management of a hiatal hernia includes eating frequent small meals instead of three large meals a day. Get help right away if you vomit blood, have bright red blood in your stools, or have black, tarry stools. This information is not intended to replace advice given to you by your health care provider. Make sure you discuss any questions you have with your health care provider. Document Revised: 05/01/2022 Document Reviewed: 05/01/2022 [employer] Patient Education 2023 [place]. 02/25/2024 11:02:51 Gastritis, Adult, Rakc-lm-Zuii Gastritis, Adult Gastritis is irritation and swelling (inflammation) of the stomach. There are two kinds of gastritis: Acute gastritis. This kind develops quickly. Chronic gastritis. This kind is much more common. It develops slowly and lasts for a long time. It is important to get help for this condition. If you do not get help, your stomach can bleed, andyou can get sores (ulcers) in your stomach. What are the causes? This condition may be caused by: Germs that get to your stomach and cause an infection. Drinking too much alcohol. Medicines you are taking. Having too much acid in the stomach. Having a disease of the stomach. Other causes may include: An allergic reaction. Some cancer treatments (radiation). Smoking cigarettes or using products that contain nicotine or tobacco. In some cases, the cause of this condition is not known. What increases the risk? Having a disease of the intestines. Having Crohn's disease. Using aspirin or ibuprofen and other NSAIDs to treat other conditions. Stress. What are the signs or symptoms? Pain in your stomach. A burning feeling in your stomach. Feeling like you may vomit (nauseous). Vomiting or vomiting blood. Feeling too full after you eat. Weight loss. Bad breath. Blood in your poop (stool). In some cases, there are no symptoms. How is this treated? This condition is treated with medicines. The medicines that are used depend on what caused the condition. You may be given: Antibiotic medicine, if your condition was caused by an infection from germs. H2 blockers and similar medicines, if your condition was caused by too much acid in the stomach. Treatment may also include stopping the use of certain medicines, such as aspirin or ibuprofen. Follow these instructions at home: Medicines Take rmtz-pcc-mnqxnok and prescription medicines only as told by your doctor. If you were prescribed an antibiotic medicine, take it as told by your doctor. Do not stop taking it even if you start to feel better. Alcohol use Do not drink alcohol if: ?Your doctor tells you not to drink. ?You are , may be , or are planning to become . If you drink alcohol: ?Limit your use to: ?0 1 drink a day for women. ?0 2 drinks a day for men. ?Know how much alcohol is in your drink. In the [place] one drink equals one 12 oz bottle of beer (355 mL), one 5 oz glass of wine (148 mL), or one 1 oz glass of hard liquor (44 mL). General instructions Eat small meals often, instead of large meals. Avoid foods and drinks that make you feel worse. Drink enough fluid to keep your pee (urine) pale yellow. Talk with your doctor about ways to manage stress. You can exercise or do deep breathing, meditation, or yoga. Do not smoke or use any products that contain nicotine or tobacco. If you need help quitting, ask your doctor. Keep all follow-up visits. Contact a doctor if: Your symptoms get worse. Your stomach pain gets worse. Your symptoms go away and then come back. You have a fever. Get help right away if: You vomit blood or something that looks like coffee grounds. You have black or dark red poop. You throw up any time you try to drink fluids. These symptoms may be an emergency. Get help right away. Call your local emergency services (911 int [place] Do not wait to see if the symptoms will go away. Do not drive yourself to the hospital. Summary Gastritis is irritation and swelling (inflammation) of the stomach. You must get help for this condition. If you do not get help, your stomach can bleed, and you can get sores (ulcers) in your stomach. You can be treated with medicines for germs or medicines to block too much acid in your stomach. This information is not intended to replace advice given to you by your health care provider. Make sure you discuss any questions you have with your health care provider. Document Revised: 07/08/2021 Document Reviewed: 07/08/2021 [employer] Patient Education 2023 [place]. 02/25/2024 11:02:46 Endoscopy, Care After Procedure [facility] Endoscopy Care After Procedure Please read the instructions outlined below and refer to this sheet in the next few weeks. These discharge instructions provide you with general information on caring [facility] Your doctor may also give you specific instructions. While your treatment has been planned according to the most current medical practices available, unavoidable complications occasionally occur. If you have any problems or questions after discharge, please call your doctor. ACTIVITY You may resume your regular activity but move at a slower pace for the next 24 hours. Take frequent rest periods for the next 24 hours. Walking will help expel (get rid of) the air and reduce the bloated feeling in your abdomen. No driving for 24 hours (because of the anesthesia (medicine) used during the test). You may shower. Do not sign any important legal documents or operate any machinery for 24 hours (because of the anesthesia used during the test). NUTRITION Drink plenty of fluids. You may resume your normal diet. Begin with a light meal and progress to your normal diet. Avoid alcoholic beverages for 24 hours or as instructed by your caregiver. MEDICATIONS You may resume your normal medications unless your caregiver tells you otherwise. WHAT YOU CAN EXPECT TODAY You may experience abdominal discomfort such as a feeling of fullness or gas pains. FOLLOW-UP Your doctor will discuss the results of your test with you. SEEK IMMEDIATE MEDICAL ATTENTION IF ANY OF THE FOLLOWING OCCUR: Excessive nausea (feeling sick to your stomach) and/or vomiting. Severe abdominal pain and distention (swelling). Trouble swallowing. Temperature over 100 F (37.8 C). Rectal bleeding or vomiting of blood. Document Released: 10/16/2004 Document Re-Released: 08/26/2006 [employer] Patient Information 2009 [employer]. [facility] [id number] NoteProgress Note-Physician Patient: SAI PINEDA Age: 53 years Sex: Female : 1970 Associated Diagnoses: None Author: Dakota Rivas MD Postoperative Information Postoperative disposition: Postoperative disposition: To PACU. Optimetrix number: Optimetrix number [id number]. Anesthetic utilized: General. Health Status Allergies: Allergic Reactions (Selected) No Known Allergies Physical Examination Vital Signs 02/25/2024 11:16 EST Heart Rate Monitored 71 bpm Respiratory Rate Monitored 10 br/min Systolic Blood Pressure 113 mmHg Diastolic Blood Pressure 64 mmHg Mean Arterial Pressure, Cuff 80 mmHg SpO2 96 % 02/25/2024 11:05 EST Heart Rate Monitored 73 bpm Respiratory Rate Monitored 18 br/min Systolic Blood Pressure 107 mmHg Diastolic Blood Pressure 75 mmHg Mean Arterial Pressure, Cuff 86 mmHg SpO2 95 % 02/25/2024 10:51 EST Temperature Temporal Artery 36.8 DegC Heart Rate Monitored 81 bpm Respiratory Rate Monitored 18 br/min Systolic Blood Pressure 103 mmHg Diastolic Blood Pressure 92 mmHg HI Mean Arterial Pressure, Cuff 96 mmHg SpO2 97 % Pain Assessment: Controlled. General: Awake, Appropriate. Respiratory: Adequate air exchange. Cardiovascular: Stable. Neurological Assessment Anesthetic outcome No anesthetic complications noted. Adequate pain relief. Review / Management Condition: Stable. Plan Transfer/Discharge: Transfer/Discharge Discharge when meets criteria ( To home ).[facility]Comment on above:Result Comment: Electronically Signed By: Dakota Rivas MD\.br\Date and Time Signed: 02/25/24 11:49 EST 02-25-2024 NotePatient Education - Text Endoscopy Care After Procedure Please read the instructions outlined below and refer to this sheet in the next few weeks. These discharge instructions provide you with general information on caring for yourself after you leave thehospital. Your doctor may also give you specific instructions. While your treatment has been planned according to the most current medical practices available, unavoidable complications occasionally occur. If you have any problems or questions after discharge, please call your doctor. ACTIVITY ??? You may resume your regular activity but move at a slower pace for the next 24 hours. ??? Take frequent rest periods for the next 24 hours. ??? Walking will help expel (get rid of) the air and reduce the bloated feeling in your abdomen. ??? No driving for 24 hours (because of the anesthesia (medicine) used during the test). ??? You may shower. ??? Do not sign any important legal documents or operate any machinery for 24 hours (because of theanesthesia used during the test). NUTRITION ??? Drink plenty of fluids. ??? You may resume your normal diet. ??? Begin with a light meal and progress to your normal diet. ??? Avoid alcoholic beverages for 24 hours or as instructed by your caregiver. MEDICATIONS ??? You may resume your normal medications unless your caregiver tells you otherwise. WHAT YOU CAN EXPECT TODAY ??? You may experience abdominal discomfort such as a feeling of fullness or ???gas??? pains. FOLLOW-UP ??? Your doctor will discuss the results of your test with you. seek immediate medical attention if any of the following occur: ??? Excessive nausea (feeling sick to your stomach) and/or vomiting. ??? Severe abdominal pain and distention (swelling). ??? Trouble swallowing. ??? Temperature over 100 F (37.8??? C). ??? Rectal bleeding or vomiting of blood. Document Released: 10/16/2004 Document Re-Released: 08/26/2006 [employer]??? Patient Information ???2009 [employer]. Gastroenterology Hiatal Hernia A hiatal hernia occurs when part of the stomach slides above the muscle that separates the abdomen from the chest (diaphragm). A person can be born with a hiatal hernia (congenital), or it may develop over time. In almost all cases of hiatal hernia, only the top part of the stomach pushes through the diaphragm. Many people have a hiatal hernia with no symptoms. The larger the hernia, the more likely it is that you will have symptoms. In some cases, a hiatal hernia allows stomach acid to flow back into the tube that carries food from your mouth to your stomach (esophagus). This may cause heartburn symptoms. The development of heartburn symptoms may mean that you have a condition called gastroesophageal reflux disease (GERD). What are the causes? This condition is caused by a weakness in the opening (hiatus) where the esophagus passes through the diaphragm to attach to the upper part of the stomach. A person may be born with a weakness in thehiatus, or a weakness can develop over time. What increases the risk? This condition is more likely to develop in: ??? Older people. Age is a major risk factor for a hiatal hernia, especially if you are over the age of 50. ??? women. ??? People who are overweight. ??? People who have frequent constipation. What are the signs or symptoms? Symptoms of this condition usually develop in the form of GERD symptoms. Symptoms include: ??? Heartburn. ??? Upset stomach (indigestion). ??? Trouble swallowing. ??? Coughing or wheezing. Wheezing is making high-pitched whistling sounds when you breathe. ??? Sore throat. ??? Chest pain. ??? Nausea and vomiting. How is this diagnosed? This condition may be diagnosed during testing for GERD. Tests that may be done include: ??? X-rays of your stomach or chest. ??? An upper gastrointestinal (GI) series. This is an X-ray exam of your GI tract that is taken after you swallow a chalky liquid that shows up clearly on the X-ray. ??? Endoscopy. This is a procedure to look into your stomach using a thin, flexible tube that has atiny camera and light on the end of it. How is this treated? This condition may be treated by: ??? Dietary and lifestyle changes to help reduce GERD symptoms. ??? Medicines. These may include: ? Etdu-mop-wsqrwhd antacids. ? Medicines that make your stomach empty more quickly. ? Medicines that block the production of stomach acid (H2 blockers). ? Stronger medicines to reduce stomach acid (proton pump inhibitors). ??? Surgery to repair the hernia, if other treatments are not helping. If you have no symptoms, you may not need treatment. Follow these instructions at home: Lifestyle and activity ??? Do not use any products that contain nicotine or tobacco. These products include cigarettes, chewing tobacco, and vaping devices, such as e-cigarettes. If you need help quitting, ask your health care provide (more content not included)...[facility]12-10-[facility] NoteProgress Note-Physician Patient: SAI PINEDA Age: 53 years Sex: Female : 1970 Associated Diagnoses: None Author: Rob SANDOVAL, Dakota Shoemaker Preoperative Information Anesthesia Preop Info: Time patient last ate or drank 02/25/2024 00:00:00. Anesthesia history: Patient history: None. Family history+: None. Informed consent: Signed by patient. Re-evaluation prior to induction: Initial evaluation reviewed: No significant change. Review of Systems Eye Ear/Nose/Mouth/Throat Respiratory: No shortness of breath, No cough. Cardiovascular: Negative. Gastrointestinal: No heartburn. Musculoskeletal Neurologic Health Status Allergies: Allergic Reactions (Selected) No Known Allergies, Allergies (1) Active Severity Reaction No Known Allergies None Documented Current medications: (Selected) Inpatient Medications Ordered Lactated Ringers IV Misty 1000 mL 1,000 mL: 1,000 mL, IV, 100 mL/hr, Routine, Start date 02/25/24 10:16:00 EST, 10 hour(s), Total volume (mL): 1,000, 62.2 kg, 1.71, m2 Sodium Chloride 0.9% 60 mL syringe 60 mL: 60 mL, IV, 20 mL/hr, Routine, Start date 02/25/24 6:44:00EST, 3 hour(s), Total volume (mL): 60, 62.2 kg, 1.71, m2 Prescriptions Prescribed Carafate 1 gram Tab: 1 gm = 1 tab(s), Oral, QID, X 14 day(s), # 56 tab(s), Refills(s) 0, Pharmacy: [facility]/pharmacy #[id number], 169, cm, 02/21/24 8:47:00 EST, Height/Length Dosing, 62.2, kg, 02/21/24 8:47:00 EST, Weight Dosing Questran 4 g/9 g oral powder: = 1 packet(s), Oral, BID, # 60 EA, Refills(s) 2, Pharmacy: [facility]/pharmacy #[id number], 169, cm, 01/16/24 10:14:00 EDT, Height/Length Dosing, 63.9, kg, 01/16/24 10:14:00 EDT, Weight Dosing Spiriva Respimat 60 ACT 2.5 mcg/inh inhalation aerosol: = 2 inh, Inhalation, Daily, # 4 gm, Refills(s) 11, [id number] 169.7, cm, 11/26/23 15:32:00 EDT, Height/Length Dosing, 62.1, kg, 11/26/23 15:32:00 EDT, Weight Dosing Zofran 4 mg Tab: 4 mg = 1 tab(s), Oral, q8hr, PRN Nausea, # 10 tab(s), Refills(s) 0, [id number] 173, cm, 04/26/20 13:07:00 EST, Height/Length Dosing, 52.8, kg, 04/26/20 13:07:00 EST, Weight Dosing Zofran ODT 4 mg Tab-Dis: 4 mg = 1 tab(s), Oral, TID, # 15 tab(s), Refills(s) 0, [id number] 172, cm, 09/24/23 13:02:00 EDT, Height/Length Dosing, 61.2, kg, 09/24/23 13:02:00 EDT, Weight Dosing Zofran ODT 8 mg Tab-Dis: 8 mg = 1 tab(s), SubLingual, q8hr, PRN Nausea/Vomiting, # 24 tab(s), Refills(s) 0, [id number] 169, cm, 01/16/24 10:14:00 EDT, Height/Length Dosing, 63.9, kg, 01/16/24 10:14:00 EDT, Weight Dosing cloNIDine 0.2 mg Tab: 0.2 mg = 1 tab(s), Oral, Bedtime, # 30 tab(s), Refills(s) 1, [id number] 173, cm, 05/24/20 14:42:00 EST, Height/Length Dosing, 50.1, kg, 05/24/20 14:42:00 EST,Weight Dosing colestipol 1 g Tab: 2 gm = 2 tab(s), Oral, BID, with a full glass of water, # 120 tab(s), Refills(s) 1, [id number] 169, cm, 01/16/24 10:14:00 EDT, Height/Length Dosing, 63.9, kg, 01/16/24 10:14:00 EDT, Weight Dosing hydrOXYzine hydrochloride 50 mg oral tablet: 50 mg = 1 tab(s), Oral, TID, PRN as needed for anxiety, # 30 tab(s), Refills(s) 0, [id number] 173, cm, 04/26/20 13:07:00 EST, Height/Length Dosing, 52.8, kg, 04/26/20 13:07:00 EST, Weight Dosing lamotrigine 25 mg Tab: See Instructions, TAKE 1 TABLET BY MOUTH EVERY DAY IN THE AFTERNOON, # 30 tab(s), Refills(s) 0, Pharmacy: [id number], 169.7, cm, 11/26/23 15:32:00 EDT, Height/Length Dosing, 62.1, kg, 11/26/23 15:32:00 EDT, Weight Dosing mirtazapine 7.5 mg oral tablet: 7.5 mg = 1 tab(s), Oral, Bedtime, # 30 tab(s), Refills(s) 0, [id number], 169.7, cm, 10/03/23 9:38:00 EDT, Height/Length Dosing, 62.5, kg, 10/03/23 9:38:00 EDT, Weight Dosing omeprazole 20 mg Cap-DR: See Instructions, TAKE 1 CAPSULE BY MOUTH EVERY DAY, # 30 cap(s), Refills(s) 0, Pharmacy: [id number], 169, cm, 02/21/24 8:47:00 EST, Height/Length Dosing, 62.2, kg, 02/21/24 8:47:00 EST, Weight Dosing ondansetron 4 mg Dis Tab: 4 mg = 1 tab(s), Oral, q6hr, PRN Nausea/Vomiting, # 30 tab(s), Refills(s)0, [id number] 169.7, cm, 11/26/23 15:32:00 EDT, Height/Length Dosing, 62.1, kg, 11/26/23 15:32:00 EDT, Weight Dosing ondansetron 8 mg Dis Tab: See Instructions, DISSOLVE 1 TABLET ON THE TONGUE EVERY 8 HOURS NEEDEDFOR NAUSEA AND VOMITING, # 24 tab(s), Refills(s) 0, [id number] 169, cm, 02/17/2411:55:00 EST, Height/Length Dosing, 61.8, kg, 02/18/24 11:55:00 EST, Weight D... promethazine 25 mg Tab: 25 mg = 1 tab(s), Oral, TID, # 15 tab(s), Refills(s) 0, [id number] 169, cm, 01/16/24 10:14:00 EDT, Height/Length Dosing, 63.9, kg, 01/16/24 10:14:00 EDT, Weight Dosing promethazine 25 mg Tab: See Instructions, TAKE 1 TABLET BY MOUTH THREE TIMES A DAY, # 30 tab(s), Refills(s) 1, [id number] 169, cm, 02/18/24 11:55:00 EST, Height/Length Dosing, 61.8, kg, 02/18/24 11:55:00 E (more content not included)...[facility] MemorialComment on above:Result Comment: Electronically Signed By: Rob SANDOVAL, Dakota Shoemaker\.br\Date and Time Signed: 02/25/24 10:18 [id number] Evaluation + Plan note Future Scheduled Tests Laboratory* Giardia lamblia, Direct Detection EIA 11/26/23 * O & P Exam, Routine 11/26/23 * Rotavirus Ab 11/26/23 * Clostridium Difficile PCR 11/26/23 Radiology* XR Small Bowel w/ Serial Films 02/10/24 [facility] [id number] Evaluation + Plan note Future Scheduled Tests Laboratory* Giardia lamblia, Direct Detection EIA 11/26/23 * O & P Exam, Routine 11/26/23 * Rotavirus Ab 11/26/23 * Clostridium Difficile PCR 11/26/23 Radiology* CT Abdomen/Pelvis w/contrast (enterography) 01/30/24 * XR Small Bowel w/ Serial Films 02/10/24 [facility] 07-09-2024 Hospital Discharge instructions Patient Education 09/24/2023 15:42:11 Urinary Tract Infection, Adult Urinary Tract Infection, Adult A urinary tract infection (UTI) is an infection of any part of the urinary tract. The urinary tractincludes the kidneys, ureters, bladder, and urethra. These organs make, store, and get rid of urinein the body. An upper UTI affects the [...] Treatment for this condition includes: Antibiotic medicine. Fxop-zlp-sdfewap medicines to treat discomfort. Drinking enough water to stay hydrated. If you have frequent infections or have other conditions such as a kidney stone, you may need to see a health care provider who specializes in the urinary tract (urologist). In rare cases, urinary tract infections can cause sepsis. Sepsis is a life- threatening condition that occurs when the body responds to an infection. Sepsis is treated in the hospital with IV antibiotics, fluids, and other medicines. Follow these instructions at home: Medicines Take rjxm-zca-wttdcxo and prescription medicines only as told by your health care provider. If you were prescribed an antibiotic medicine, take it as told by your health care provider. Do notstop using the antibiotic even if you start [...] told by your health care provider. Do notstop using the antibiotic even if you start to feel better. Keep all follow-up visits. This is important. This information is not intended to replace advice given to you by your health care provider. Make sure you discuss any questions you have with your health care provider. Document Revised: 10/14/2020 Document Reviewed: 10/14/2020 [employer] Patient Education 2022 [place]. Follow Up Care 09/24/2023 12:53:04 With:CHANCE SERRANO Address: [address] [place] [phone] Business (1) When:09/27/2023 15:19:10 [facility]07-09-2024 Evaluation + Plan note Diagnostic Tests Pending * Urine Culture 09/24/23 [facility]02-21-2023 Miscellaneous Notes* Telephone Encounter - Eva Chong - 05/08/2022 10:40 AM EST 05/08/22 Patient calling to see if Dr Morales will write her a script for Zofran nausea medication strips. [phone] Eva documented in this encounterUniversity Hospitals Lake West Medical Center02-07-2023 NoteHNO ID: [id number] Author: Tiffani Morales MD Service: ? Author [...] Tiffani Morales MD 04/24/2022 11:19 AM Staff Mate First, [facility] [place] PRIMARY PROBLEM: small bowel tumor, severe malnutrition [...] clips were successfully placed (MR conditional). 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 There was no bleeding at the end [...] patient, physical examination, documentation, and co-ordination of care.[facility]02-07-2023 History of Present illness Narrative* Tiffani Morales MD - 04/24/2022 8:06 AM EST SMALL BOWEL DISEASES AND NUTRITION FOLLOW-UP VIDEO VISIT Date of direct communication: 04/24/2022 [x] Patient consented to video visit IMPRESSION: Sai Pineda is a 51 year old female with severe malnutrition and weight loss in thesetting of chronic nausea. There is a small [...] Tiffani Morales MD 04/24/2022 11:19 AM Staff Mate First, [facility] [place] PRIMARY PROBLEM: small bowel tumor, severe malnutrition [...] clips were successfully placed (MR conditional). 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 There was no bleeding at the end [...] with the patient, physical examination, documentation, and co- ordination of care. documented in this encounterUniversity Hospitals Lake West Medical Center01-19-2023 Miscellaneous Notes* Telephone Encounter - Eva Chong - 04/05/2022 9:29 AM EST 04/05/22 Patient wants tow know if y script you can send her script for ZOFRAN, under the tongue tablets. For nausea. Eva documented in this encounterUniversity Hospitals Lake West Medical Center01-18-2023 NoteHNO ID: [id number] Author: Frederick Chaves APRN.ENVIRONMENTAL TEST TECHNICIAN Service: ? Author Type: Nurse Relief Manager Type: Anesthesia Procedure Notes Filed: 04/04/2022 1:55 PM Note Text: ANESTHESIOLOGY PROCEDURE NOTE Airway General Information Procedure Start Time/Medication Administration: 04/04/2022 1:38 PM Patient location during procedure: OR Timeout Performed Pre-procedure: timeout performed Consent Obtained: Yes Patient identity confirmed: arm band Staffing ENVIRONMENTAL TEST TECHNICIAN: Frederick Chaves APRN.ENVIRONMENTAL TEST TECHNICIAN Performed by: GORGE Indications and Patient Condition Indications for airway management: anesthesia Preoxygenated: yes anesthesia circuit Patient position: sniffing Method: asleep Cricoid Pressure: No Difficult Mask: No Final Airway Details Final airway type: endotracheal airway Final Endotracheal Airway: ETT Cuffed: yes Successful intubation technique: video laryngoscopy Devices used: Peerlyst Endotracheal tube insertion site: oral Blade: [place] Blade size: #3 ETT size (mm): 7.0 Measured from: lips Measurement (cm): 21 Placement verified by: capnometry Cormack-Lehane Classification: grade I - full view of glottis Number of attempts at approach: 1 Airway not difficult SIGNATURE: Frederick Chaves APRN.CRNA PATIENT NAME: Sai Pineda DATE: April 04, 2022 TIME: 1:54 PM [facility]: [id number] NoteHNO ID: [id number] Author: Frederick Chaves APRN.ENVIRONMENTAL TEST TECHNICIAN Service: ? Author Type: Nurse Relief Manager Type: Anesthesia Procedure Notes Filed: 04/04/2022 1:51 PM Note Text: ANESTHESIOLOGY PROCEDURE NOTE PIV General Information Procedure Start Time/Medication Administration: 04/04/2022 1:26 PM Patient Location: OR Staffing ENVIRONMENTAL TEST TECHNICIAN: Frederick Chaves APRN.ENVIRONMENTAL TEST TECHNICIAN Performed by: GORGE Preparation Sterility Preparation: hand [...] April 04, 2022 TIME: 1:49 PM CSN: [id number] Hospital01-18-2023 Nurse Note* Eduardo Harrington RN - 04/04/2022 3:19 PM EST AMBULATORY PATIENT EDUCATION NOTE TOPIC: GI PROCEDURES: [...] / FAMILY RESPONSE: Verbalizes understanding of: WORSENING CONDITION- Signs and symptoms of aworsening condition that warrant a call to the physician FOLLOW-UP PLAN: Recommend - Recommend continued instruction and follow up as directed Contact information given. SUPPLEMENTAL MATERIAL: Procedure Discharge Instructions REFERRAL (RECOMMENDATION): None Electronically Signed By: Eduardo Harrington RN * Rima Kirk RN - 04/04/2022 12:48 PM EST PRE OP LEARNING ASSESSMENT PROCEDURE/SURGERY: GI PROCEDURES: enteroscopy READINESS TO LEARN COGNITIVE ABILITY: Alert and oriented MOTIVATION TO LEARN: Eager Interested FAMILY SUPPORT: High - Very involved in pt care PATIENT LEARNS BEST BY: Individual Instruction Written Instruction - Hand-outs Verbal Instruction FACTORS AFFECTING LEARNING: None PHYSICAL LIMITATIONS AFFECTING LEARNING: None Electronically Signed By: Rima Kirk RN In Department: GASTROENTEROLOGY documented in this encounterUniversity Hospitals Lake West Medical Center01-18-2023 NoteQ3 Patient Name: Sai Pineda Procedure Date: 04/04/2022 [...] clips were successfully placed (MR conditional). 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 There was no bleeding at the end of the maneuver. Exam of the jejunum was otherwise normal. Impression: - Atrophic mucosa. - Jejunal polyp(s). Resected and retrieved. Tattooed. Clips (MR conditional) were placed. Clip internal grinder tender: [employer]. Estimated Blood Loss: Estimated blood loss was minimal. Recommendation: - Await pathology results. - Resume previous diet. - Continue present medications. - Return to endoscopist at the next available appointment. 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 All rights reserved. Attending Participation: I was present and participated during the entire procedure, including non-morrison portions. Scope In: 1:44:30 PM Scope Out: 3:07:42 PM MD Tiffani Camargo MD 04/04/2022 3:21:50 PM This report has been signed electronically by Tiffani Morales MD Number of Addenda: 0 (more content not included)...[facility] 04-04-2022 History and physical note* Tiffani Morales MD - 04/04/2022 1:00 PM EST GI PROCEDURAL HISTORY AND PHYSICAL EXAM PLANNED [...] DATE: 04/04/2022 TIME: 1302 documented in this encounterUniversity Hospitals Lake West Medical Center01-11-2023 Miscellaneous Notes* Telephone Encounter - Eduardo Harrington RN - 03/28/2022 3:50 PM EST Attempted to reach the patient at the contact number that they provided [phone] (home) . Unable to speak with patient so without identifying the patient the following information was left on their voice mail: Date of procedure, location and report time A message was left informing the patient/patient hospital insurance representative they must have a responsible adult accompany them to their procedure; and remain in the endoscopy area until they are discharged. Failure to have a responsible adult accompany the patient to their procedure appointment prevents the useof sedation or anesthesia for their procedure; and can result in cancellation of the procedure NPO instructions were reviewed. Instructions to contact their primary care provider regarding their medications and which medications to stop in preparation for their procedure Instructions to completely read and follow the written instructions that they recieved regarding their procedure. Number to call with questions or concerns [phone] Number to call to cancel their procedure [phone] Eduardo Harrington RN documented in this encounterUniversity Hospitals Lake West Medical Center12-27-2022 Note* Addendum Note - Robb Evans MD - 03/13/2022 3:44 PM ESTAddended by: ROBB EVANS on: 03/13/2022 03:44 PM Modules accepted: Orders [id number] Miscellaneous Notes* Addendum Note - Robb Evans MD - 03/13/2022 3:44 PM ESTAddended by: ROBB EVANS on: 03/13/2022 03:44 PM Modules accepted: Orders * Addendum Note - Gokul Montoya MA - 03/13/2022 3:37 PM ESTAddended by: GOKUL MONTOYA on: 03/13/2022 03:37 PM Modules accepted: Orders documented in this [id number] Note* Addendum Note - Gokul Montoya MA - 03/13/2022 3:37 PM ESTAddended by: GOKUL MONTOYA on: 03/13/2022 03:37 PM Modules accepted: Orders [id number] Note* Addendum Note - Gokul Montoya MA - 03/13/2022 3:37 PM ESTAddended by: GOKUL MONTOYA on: 03/13/2022 03:37 PM Modules accepted: Orders [id number] Miscellaneous Notes* Addendum Note - Gokul Montoya MA - 03/13/2022 3:37 PM ESTAddended by: GOKUL MONTOYA on: 03/13/2022 03:37 PM Modules accepted: Orders documented in this [id number] NoteHNO ID: [id number] Author: Tiffani Morales MD Service: ? Author [...] Tiffani Morales MD 03/01/2022 11:19 AM Staff Mate First, [facility] [place] PRIMARY PROBLEM: small bowel tumor, severe malnutrition [...] patient, physical examination, documentation, and co-ordination of care.[facility]12-15-2022 History of Present illness Narrative* Tiffani Morales MD - 03/01/2022 11:17 AM EST SMALL BOWEL DISEASES AND NUTRITION FOLLOW-UP TELEPHONE VISIT Date of direct communication: 03/01/2022 [x] Patient consented to telephone visit. It was done as aphone visit because after over 15 mins of trying to trouble shoot over the phone, she still could not access the video or audio on Zoom with a direct link or access the video or audio with a FaceTimeinvite. IMPRESSION: Sai Pineda is a 51 year old female with severe malnutrition and weight loss in thesetting of chronic nausea. There is a small [...] Tiffani Morales MD 03/01/2022 11:19 AM Staff Mate First, [facility] [place] PRIMARY PROBLEM: small bowel tumor, severe malnutrition [...] with the patient, physical examination, documentation, and co- ordination of care. documented in this encounterUniversity Hospitals Lake West Medical Center12-02-2022 NoteHNO ID: [id number] Author: Anastasiya Mosqueda PA-C Service: ? Author Type: Physician General Sales Manager Type: Progress Notes Filed: 02/16/2022 5:07 PM Note Text: [facility] placedC[facility]11-21-2022 NoteHNO ID: [id number] Author: RT Fabiana(R) Service: Nuclear Medicine Author Type: Technologist Type: [...] 08:15 PATIENT DISCHARGED TO: Ambulatory patient, left [place] department area. A Diagnostic radioactive procedure has taken place, with no further precautions necessary other than routine body substance precautions. More information regarding radiation safety can be found using this link: [email or web address] SIGNATURE: RT Fabiana(R) PATIENT NAME: Sai Pineda DATE: February 05, 2022 TIME: 10:16 AM PAGER/CONTACT #:[facility]11-14-2022 NoteHNO ID: [id number] Author: Dolores Lopez RN Service: ? Author Type: Registered Nurse Type: Progress Notes Filed: 02/01/2022 4:29 PM Note Text: Summary: capsule endoscopy small bowel Capsule endoscopy small bowel ingested without difficulty @ 1300 on 01-29-2022. Therese Lopez RN [id number] [facility] PTF G [id number] Capsule Endoscopy Post Ingestion Patient Information Do [...] recommend you avoid the airport, bank and [employer] buildings. Many [employer] use a similar technology for security, it [...] hours you may call: HERNÁN Salvador RN [phone] After Business hours: [phone] and ask for GI Zrgsqx-Kn-OuzThpsyqpqmSamaritan [facility]11-14-2022 History of Present illness Narrative* Dolores Lopez RN - 01/29/2022 1:17 PM ESTSummary: capsule endoscopy small bowel Capsule endoscopy small bowel ingested without difficulty @ 1300 on 01-29-2022. Therese Lopez RN [id number] [facility] PTF G [id number] Capsule Endoscopy Post Ingestion Patient Information Do [...] your capsule endoscopy. It is not likely thatany household or office equipment will interfere with [...] that uses magnets in the imaging process) whilethe capsule endoscope remains in your body. Do not schedule a capsule endoscope and an MRI for the same day. Should you require an MRI in the future and you have not seen the capsule evacuated in your stool, discuss this with your physician. An x-ray of your abdomen can show if the capsule has beenevacuated. Remove your capsule endoscopy equipment at the time indicated by your procedure nurse. Loosen the Velcro Belt (if you have adhesive patches on your abdomen-remove them). The equipment will come off in one piece. There is nothing to turn of or take apart. Place all equipment in the box provided. Place the provided adhesive- backed UPS requisition on thebox for return to the main campus. Place [...] blinking . Do not be alarmed if thishappens to you. You may dispose of the [...] hours you may call: HERNÁN Salvador RN [phone] After Business hours: [phone] and ask for GI Qaprdp-Fk-Bgl documented in this encounterUniversity Hospitals Lake West Medical Center10-21-2022 Miscellaneous Notes* Telephone Encounter - Tiffani Morales MD - 01/05/2022 5:46 PM EDT Phone note F/U EGD Incidental finding of [...] Morales MD 01-05-2022 17:51 documented in this encounterUniversity Hospitals Lake West Medical Center10-21-2022 NoteHNO ID: [id number] Author: Anastasiya Mosqueda PA-C Service: ? Author Type: Physician General Sales Manager Type: Progress Notes Filed: 01/05/2022 2:24 PM Note Text: Per discussion with Dr. Morales, GES, Small bowel capsule study, Fecal fat qual and pancreatic elastase stool studies orders placed. Discussed plan with patient. [facility] History of Present illness Narrative* Anastasiya Mosqueda PA-C - 01/05/2022 2:13 PM EDT Per discussion with Dr. Morales, GES, Small bowel capsule study, Fecal fat qual and pancreatic elastase stool studies orders placed. Discussed plan with patient. Anastasiya Mosqueda PA-C documented in this encounterUniversity Hospitals Lake West Medical Center10-21-2022 Miscellaneous Notes* Telephone Encounter - Anastasiya Mosqueda PA-C - 01/05/2022 10:27 AM EDT Patient with continued nausea and vomiting, discussed pathology results with patient, though awaiting input from performing GI provider for further clarification. Patient has previously tolerated Zofran and compazine, will try combination. Risks/benefits/side effects discussed given hx of anti-psychotic medications, though given previous tolerance, patient agreeable and wants to continue treatment. Consider GES testing. Anastasiya Mosqueda PA-C documented in this encounterUniversity Hospitals Lake West Medical Center10-19-2022 Miscellaneous Notes* Telephone Encounter - Anastasiya Mosqueda PA-C - 01/03/2022 10:17 AM EDT EGD results discussed with patient as requested, pathology still pending. Will reach out to patientonce resulted. Red flags for in person care discussed. Anastasiya Mosqueda PA-C documented in this encounterUniversity Hospitals Lake West Medical Center10-18-2022 Miscellaneous Notes* Telephone Encounter - Leydi Henry Workmarcelinoader - 01/02/2022 8:47 AM EDT Patient called to get results from her procedure. Please contact her at number listed in system. Thanks Leydi Henry Workleader documented in this encounterUniversity Hospitals Lake West Medical Center10-17-2022 Nurse Note* Juan Carlos Saucedo LPN - 01/01/2022 5:00 PM EDT AMBULATORY PATIENT EDUCATION NOTE TOPIC: GI PROCEDURES: [...] / FAMILY RESPONSE: Verbalizes understanding of: WORSENING CONDITION- Signs and symptoms of aworsening condition that warrant a call to the physician FOLLOW-UP PLAN: Recommend - Recommend continued instruction and follow up as directed SUPPLEMENTAL MATERIAL: Procedure Discharge Instructions REFERRAL (RECOMMENDATION): None Electronically Signed By: Juan Carlos Saucedo LPN * Rima Coleman RN - 01/01/2022 3:38 PM EDT PRE OP LEARNING ASSESSMENT PROCEDURE/SURGERY: GI PROCEDURES: EGD READINESS TO LEARN COGNITIVE ABILITY: Alert and oriented MOTIVATION TO LEARN: Interested FAMILY SUPPORT: High - Very involved in pt care PATIENT LEARNS BEST BY: Individual Instruction Written Instruction - Hand-outs Verbal Instruction FACTORS AFFECTING LEARNING: None PHYSICAL LIMITATIONS AFFECTING LEARNING: None Electronically Signed By: Rima Coleman RN In Department: GASTROENTEROLOGY documented in this encounterUniversity Hospitals Lake West Medical Center10-17-2022 History and physical note * Tiffani Morales MD - 01/01/2022 4:00 PM EDT GI PROCEDURAL HISTORY AND PHYSICAL EXAM PLANNED [...] DATE: 01/01/2022 TIME: 1600 documented in this encounterUniversity Hospitals Lake West Medical Center10-10-2022 Miscellaneous Notes* Telephone Encounter - Rima Gerard RN - 12/25/2021 8:26 AM EDT Patient scheduled incorrectly. Anesthesia not supposed to have 430 case. I called patient to see iftsaleem can come in early. She said she would call me back Rima Gerard RN documented in this encounterUniversity Hospitals Lake West Medical Center09-30-2022 NoteHNO ID: [id number] Author: Anastasiya Mosqueda PA-C Service: ? Author Type: Physician General Sales Manager Type: Progress Notes Filed: 12/15/2021 4:32 PM Note Text: VIRTUAL VISIT NEW PATIENT NAME: Sai Pineda [facility] NO: [id number] DATE: 12/15/2021 REASON FOR VISIT Sai Guerrero [id number] 1970 has requested a video telemedicine initial [...] abdominal rigidity Assessment IMPRESSION (more content not included)...[facility]09[facility]20[facility] History of Present illness Narrative* Anastasiya Mosqueda PA-C - 12/15/2021 11:50 AM EDT VIRTUAL VISIT NEW PATIENT NAME: Sai Guerrero CLINIC NO: [id number] DATE: 12/15/2021 REASON FOR VISIT Sai Guerrero [id number] 1970 has requested a video telemedicine initial consultationat the request of Self. Sai Guerrero verbalized [...] removed. Patient last went to the ED on12/03, was also prescribed PPI which she has been taking. Denies chronic NSAID use. Father had coloncancer was diagnosed at age 65. Patient is [...] attempting to eat. States she is currently 101pounds. Denies fevers/chills, chest pain, sob, hematemesis, hematochezia, [...] symptoms, mentions not eating helps symptoms. Last underwentEGD and colonoscopy in 2019, states she was told she has a small hiatal hernia and had multiple polyps removed from colonoscopy, mentions her father was diagnosed with colon cancer at age 65. Denies chronic NSAID use. No history of diabetes. Also started taking PPI, has had 3 hospital visits since onset of symptoms, most recently on 12/03. R/o Gastritis/Esophagitis/Duodenitis/PUD vs ?Gastroparesis. PLAN Adequate hydration 6 small [...] 15, 2021 11:51 AM documented in this encounterUniversity Hospitals Lake West Medical Center09-29-2022 NoteHNO ID: [id number] Author: Anastasiya Mosqueda PA-C Service: ? Author Type: Physician General Sales Manager Type: Progress Notes Filed: 12/14/2021 3:51 PM Note Text: Unable to connect to VV, called multiple times and left multiple VM's. Patient rescheduled for tomorrow.[facility]09[facility]20[facility] History of Present illness Narrative* Anastasiya Mosqueda PA-C - 12/14/2021 10:52 AM EDT Unable to connect to VV, called multiple times and left multiple VM's. Patient rescheduled for tomorrow. documented in this encounterUniversity Hospitals Lake West Medical Center09-28-2022 Miscellaneous Notes* Telephone Encounter - Elizabeth Ricci - 12/13/2021 12:32 PM EDT Spoke to patient's daughter - she will contact the [employer] support line to assist with setting up patient's Mychart & assist with set up for virtual visit tomorrow morning Elizabeth Ricci * Telephone Encounter - Elizabeth Ricci - 12/13/2021 11:17 AM EDT Received a call from patient's health agency concerning virtual visit set up with you today at 11 - Patient has not registered for [employer] (having trouble accessing her email) & they want to knowif you will do a phone visit instead Was told this was an urgent request from the referring doctor's office - the visit was scheduled thru the Referring Physician office There are no records found for this patient & I attempted to pull records thru Care Everywhere Patient's phone [phone] Elizabeth Ricci documented in this encounterUniversity Hospitals Lake West Medical Center07-13-2022 History of Present illness Narrative* Robb Evans MD - 09/27/2021 10:19 AM EDT Prolactin Level Elevated at 146. Will add Abilify 5 mg daily to address that. Pt informed. Pt is denying breast tenderness or documented in this [id number] History of Present illness Narrative* Robb Evans MD - 09/19/2021 2:19 PM EDT BEHAVIORAL HEALTH PSYCHIATRIC PROGRESS NOTE Reason for visit: Psychotropic medication management 09/19/2021 Patient is seen alone in his office for psychotropic medication management. Patient reported they are moving to a new residence, in [place] same place they have been living in. Patient is excited about the new place, states moving has been slightly stressful otherwise she is glad that they have downsized. Patient denies any decline in her mood since she was last seen. Patient continues to do well on current psychotropic medication regimen. Patient denies any ongoing pervasive sadness or anhedonia. Reports fair energy and fair motivation.Patient has been taking care of ADLs and [...] mood symptoms. Patient denies any ongoing racing thoughtsor flight of ideas. Denies any pervasive irritability. Denies any increased distress or increased goal- directed activities. Denies any ongoing distractibility. Interpersonal issues [...] past medical history, past social history, past surgicalhistory and problem list. Review of Systems : [...] total) by mouth 3 (three) times a dayas needed for sleep or anxiety ., Disp: 90 tablet, Rfl: 0 cloNIDine HCL (CATAPRES) 0.2 MG tablet, Take 1 (one) tablet (0.2 mg total) by mouth nightly ., Disp: 30 tablet, Rfl: 5 lamoTRIgine (LAMICTAL) 200 MG tablet, Take 1 (one) tablet (200 mg total) by mouth daily ., Disp: 30tablet, Rfl: 5 risperiDONE (RISPERDAL) 2 MG tablet, [...] none Treatment Goals and Objectives discussed. Other Referrals/Consults/Psychological Testing: none Upender Gehlot documented in this [id number] History of Present illness Narrative* Robb Evans MD - 06/20/2021 1:43 PM EDT BEHAVIORAL HEALTH PSYCHIATRIC PROGRESS NOTE Reason for [...] ongoing feelings of hopelessness or helplessness. Denies anyongoing passive or active morbid thoughts. Patient is [...] past medical history, past social history, past surgicalhistory and problem list. Review of Systems : [...] total) by mouth 3 (three) times a dayas needed for sleep or anxiety ., Disp: 90 tablet, Rfl: 0 cloNIDine HCL (CATAPRES) 0.2 MG tablet, Take 1 (one) tablet (0.2 mg total) by mouth nightly ., Disp: 30 tablet, Rfl: 5 lamoTRIgine (LAMICTAL) 200 MG tablet, Take 1 (one) tablet (200 mg total) by mouth daily ., Disp: 30tablet, Rfl: 5 risperiDONE (RISPERDAL) 2 MG tablet, [...] none Treatment Goals and Objectives discussed. Other Referrals/Consults/Psychological Testing: none Robb Evans documented in this [id number] History of Present illness Narrative* Robb Evans MD - 03/01/2021 1:31 PM EST Telephone Visit Via Phone Call [facility] [address]) [facility] [address] [facility] [phone] Telephone Visit [facility] 03/01/2021 Robb Evans MD Provider Location: [facility] Patient Location Curator Of Education: None Patient Location: Patient's Home Patient: Sai Pineda Date of : 1970 (50 y.o. female) PCP: Cristina Iqbal CNP I discussed risks, benefits and alternatives of a telephone visit telemedicine consultation with the patient (and any accompanying persons) including the risks that the patient's personal health details and medical records will be discussed over real-time, synchronous, interactive audio technology,the visit will not be recorded without the express consent of both the provider and the patient, and that there are inherent diagnostic limitations compared to xxsp-so-mxlz evaluations. We elected toproceed with the telephone visit telemedicine consultation. HPI [...] Motor activity normal limits. Patient is not hyp erverbal or having pressured speech over the phone. [...] taking care of ADLs and hygiene and householdchores. She is not withdrawn or isolated. Denies any excessive tearfulness or crying episodes. Denies any pervasive irritability, denies engaging in impulsive reckless behaviors. Impulse controlhas been fair. Patient reports adequate anxiety control. [...] past medical history, past social history, past surgicalhistory and problem list. Review of Systems Constitutional: [...] total) by mouth 3 (three) times a dayas needed for sleep or anxiety ., Disp: 90 tablet, Rfl: 0 cloNIDine HCL (CATAPRES) 0.2 MG tablet, Take 1 (one) tablet (0.2 mg total) by mouth nightly ., Disp: 30 tablet, Rfl: 5 lamoTRIgine (LAMICTAL) 200 MG tablet, Take 1 (one) tablet (200 mg total) by mouth daily ., Disp: 30tablet, Rfl: 5 risperiDONE (RISPERDAL) 2 MG tablet, [...] none Treatment Goals and Objectives discussed. Other Referrals/Consults/Psychological Testing: none I have spent 15 minutes with the patient reviewing the HPI and Plan of Care. documented in this [id number] History of Present illness Narrative* Robb Evans MD - 08/22/2020 3:27 PM EDT Telephone Visit Via Phone Call [facility] [phone] Telephone Visit [facility] 08/22/2020 Robb Evans MD Provider Location: [facility] Patient Location Curator Of Education: None Patient Location: Patient's Home Patient: Sai Pineda Date of : 1970 (49 y.o. female) PCP: Cristina Iqbal CNP I discussed risks, benefits and alternatives of a telephone visit telemedicine consultation with the patient (and any accompanying persons) including the risks that the patient's personal health details and medical records will be discussed over real-time, synchronous, interactive audio technology,the visit will not be recorded without the express consent of both the provider and the patient, and that there are inherent diagnostic limitations compared to [id number] evaluations. We elected toproceed with the telephone visit telemedicine consultation. HPI [...] any ongoing side effects. Patient is showing fairresponse. We will continue to optimize treatment The following portions of the patient's history were reviewed and updated as appropriate: allergies, current medications, past family history, past medical history, past social history, past surgicalhistory and problem list. Review of Systems Constitutional: [...] any psychomotor agitation and reports minimal racing thoughts,reports impulse control has been fair. Patient denies any ongoing suicidal ideation intent or plan.Mood was reported to be okay, patient denies [...] None Treatment Goals and Objectives discussed. Other Referrals/Consults/Psychological Testing I have spent 15 minutes with the patient reviewing the HPI and Plan of Care. documented in this [id number] History of Present illness Narrative* Robb Evans MD - 07/20/2020 11:29 AM EDT BEHAVIORAL HEALTH PSYCHIATRIC ASSESSMENT DOS: 07/18/3020 Reason for visit: Psychotropic management follow-up. Patient is here to reestablish care at my new location HPI: Patient is seen in office alone. Patient was under [facility] care [facility] a [facility]. Her working diagnosis is bipolar disorder type I, panic disorder with agoraphobia and PTSD. She has prior history of alcohol and cannabis abuse but has maintained sobriety for about last 1 year. Patient was seen here for reestablishing care at my new location in [facility]. Patient wants to continue her psychiatric management.. She had [place] seen [place] nurse practitioner [place] Patient reported she she is doing okay, [...] PFSH: Past Medical History: Diagnosis Date Alcoholism ([facility]), in remission Anxiety Bipolar disorder ([facility]) Depression Drug abuse and dependence ([facility]) in remission Panic disorder Psychosis ([facility]) Social History Substance and Sexual Activity Alcohol [...] total) by mouth 3 (three) times a dayas needed for sleep or anxiety ., Disp: [...] Sitting, BP Cuff Size: Adult) Pulse 84 Resp16 Ht 5' 8.5 Wt 52.6 kg (116 [...] none Treatment Goals and Objectives discussed. Other Referrals/Consults/Psychological Testing: none Upender Gehlot documented in this encounterOhioHealthEvaluation + Plan note Future Appointments Appointment Date:01/27/2024 10:00:00 AM Scheduled [facility]: [facility] Esophagus/Upper GI/Small Bowel (FT) Future Scheduled Tests Laboratory* Giardia lamblia, Direct Detection EIA 11/26/23 * O & P Exam, Routine 11/26/23 * Rotavirus Ab 11/26/23 * Clostridium Difficile PCR 11/26/23 Radiology* XR Small Bowel w/ Serial Films 01/27/24 [facility] Evaluation + Plan note Future Appointments Appointment Date:02/25/2024 11:00:00 AM Scheduled Provider: Location:[facility] Appointment Type:Surgery FT Future Scheduled Tests Laboratory* Giardia lamblia, Direct Detection EIA 11/26/23 * O & P Exam, Routine 11/26/23 * Rotavirus Ab 11/26/23 * Clostridium Difficile PCR 11/26/23 Radiology* CT Abdomen/Pelvis w/contrast (enterography) 01/30/24 * XR Small Bowel w/ Serial Films 02/10/24 [facility] Evaluation note* Diagnosis Generalized anxiety disorder- Primary Moderate mixed bipolar I disorder (HCC) Bipolar I disorder, most recent episode (or current) mixed, moderate Long-term use of high-risk medication [facility] Diagnosis Moderate mixed bipolar I disorder (HCC)- Primary Bipolar I disorder, most recent episode (or current) mixed, moderate Generalized anxiety disorder Long-term use of high-risk medication [facility]* Diagnosis Generalized anxiety disorder [facility]* Diagnosis Bipolar 1 disorder, mixed, mild (HCC)- Primary Generalized anxiety disorder Long-term use of high-risk medication [facility] Diagnosis Generalized anxiety disorder- Primary Bipolar 1 disorder, mixed, mild (HCC) Long-term use of high-risk medication Post traumatic stress disorder (PTSD) [facility]* Diagnosis Bipolar 1 disorder, mixed, mild (HCC)- Primary Generalized anxiety disorder Long-term use of high-risk medication documented in this encounter [facility] note* Diagnosis APPOINTMENT CANCELLED- Primary documented in this encounter [facility] note* Diagnosis Nausea and vomiting, unspecified vomiting type- Primary Left upper quadrant abdominal pain Weight loss Loss of weight documented in this encounter [facility] note* Diagnosis Nausea and vomiting, unspecified vomiting type Left upper quadrant abdominal pain documented in this encounter [facility] note* Diagnosis Nausea- Primary Nausea alone Weight loss Loss of weight 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, jejunum, and ileum documented in this encounter [facility] note* Diagnosis Abdominal pain, unspecified abdominal location- Primary documented in this encounter [facility] note* Diagnosis Intestinal polyposis- Primary Benign neoplasm of colon documented in this encounter [facility] note* Diagnosis Severe protein-calorie malnutrition (HCC)- Primary Other severe protein-calorie malnutrition 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 Weight loss Loss of weight Severe malnutrition (HCC) 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 [facility] note* Diagnosis Generalized anxiety disorder documented in this encounter [facility] note* Diagnosis Generalized anxiety disorder documented in this encounter [facility] note* Diagnosis Generalized anxiety disorder documented in this encounter [facility] note* Diagnosis 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 documented in this encounter [facility] note* Diagnosis Generalized anxiety disorder documented in this encounter [facility] note* Diagnosis Severe malnutrition (HCC)- Primary 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 [facility] course Narrative No data available for this section [facility] No data available for this section [facility] Progress note No data available for this section [facility] Outpatient Procedure (Routine) - Closed Specialty Diagnoses / Procedures Referred By Shane t Referred To Contact [facility] Diagnoses Nausea and vomiting, unspecified vomiting type Left upper quadrant abdominal pain Procedures EGD DIAGNOSTIC ESOPHAGOGASTRODUODENOSC OPY TRANSORAL DIAGNOSTIC Anastasiya Mosqueda PA-C [address] [place] [address] [facility] [place] [address] [place] [address] Referral ID Status Reason Start Date Expiration Date V isits Requested Visits Authorized [id number] Closed Auto-Generate d Referral 12/15/2021 12/15/2022 1 1 [facility] for referral (narrative)* Outpatient Procedure (Routine) - Pending Review Specialty Diagnoses / Procedures Referred By Contac t Referred To Contact [facility] Diagnoses Small bowel polyp Procedures CAPSULE ENDOSCOPY SMALL BOWEL GI TRC IMG INTRALUMINAL ESOPHAGUS-ILEUM W/I&R Anastasiya Mosqueda PA-C [address] [place] [address] [facility] [place] [address] [place] [address] Referral ID Status Reason Start Date Expiration Date Visits Requested Visits Authorized [id number] Pending Review Auto-Generat ed Referral 2 01/05/2023 1 1 * Diagnostic Procedure Only (Routine) - Pending Review Specialty Diagnoses / Procedures Referred By Shane t Referred To Contact MOLECULAR & FUNCTIONAL IMAGING Diagnoses Nausea Procedures NM GASTRIC EMPTYING SOLID GASTRIC EMPTYING STUDY Anastasiya Mosqueda PA-C [address] [place] [address] Molecular & Functional Imaging [address] [id number] Referral ID Status Reason Start Date Expiration Date Visits Requested Visits Authorized [id number] Pending Review Auto-Generat ed Referral 2 02/04/2023 1 1 [facility] for referral (narrative)* Outpatient Procedure (Routine) - Pending Review Specialty Diagnoses / Procedures Referred By Contac t Referred To Contact [facility] Diagnoses 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) Procedures ENTEROSCOPY ENDOSCOPY UPPER SMALL INTESTINE Tiffani Morales MD [address] [place] [address] [address] Referral ID Status Reason Start Date Expiration Date Visits Requested Visits Authorized [id number] Pending Review Auto-Generat ed Referral 2 03/02/2023 1 1 * MRI/CT (Routine) - Pending Review Specialty Diagnoses / Procedures Referred By Shane titus Referred To Contact CT IMAGING Diagnoses 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) Weight loss Procedures CT ENTEROGRAPHY W IVCON CT ABD & PELVIS W/CONTRAST Tiffani Morales MD [address] [place] [address] Ct Imaging Referral ID Status Reason Start Date Expiration Date Visits Requested Visits Authorized [id number] Pending Review Auto-Generat ed Referral 2 04/01/2023 1 1 [facility] for referral (narrative)* Outpatient Procedure (Routine) - Closed Specialty Diagnoses / Procedures Referred By Shane titus Referred To Contact [facility] Diagnoses 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) Procedures ENTEROSCOPY ENDOSCOPY UPPER SMALL INTESTINE Tiffani Morales MD [address] [place] [address] [address] Referral ID Status Reason Start Date Expiration Date V isits Requested Visits Authorized [id number] Closed Auto-Generate d Referral 03/02/2022 03/02/2023 1 1 [facility] for visit Narrative* Outpatient Procedure (Routine) - Closed Specialty Diagnoses / Procedures Referred By Shane titus Referred To Contact [facility] Diagnoses Nausea and vomiting, unspecified vomiting type Left upper quadrant abdominal pain Procedures EGD DIAGNOSTIC ESOPHAGOGASTRODUODENOSC OPY TRANSORAL DIAGNOSTIC Anastasiya Mosqueda PA-C [address] [id number] [id number] [place] [id number] Referral ID Status Reason Start Date Expiration Date V isits Requested Visits Authorized [id number] Closed Auto-Generate d Referral 12/15/2021 12/15/2022 1 1 [facility]* Outpatient Procedure (Routine) - Closed Specialty Diagnoses / Procedures Referred By Contac t Referred To Contact [facility] Diagnoses 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) Procedures ENTEROSCOPY ENDOSCOPY UPPER SMALL INTESTINE Tiffani Morales MD [address] [place] [address] [place] [address] Referral ID Status Reason Start Date Expiration Date V isits Requested Visits Authorized [id number] Closed Auto-Generate d Referral 03/02/2022 03/02/2023 1 1 [facility] Advance Directives No Advanced Directives Records FoundDocuments on File Type Date Recorded Patient Director Biology Expl anation Advance Directives and Living Will [...] for this section No Family History Records FoundNo Family History Records Found Reason for Referral Specialty Diagnoses / Procedures Referred By Contac t Referred To Contact Nutrition Diagnoses Nausea and vomiting, unspecified vomiting type Weight loss Procedures CONSULT TO NUTRITION THERAPY OFFICE/OUTPATIENT NEW HIGH MDM 60-74 MINUTES Anastasiya Mosqueda PA-C [address] [place] [address] Referral ID Status Reason Start Date Expiration Date Visits Requested Visits Authorized [id number] Authorized PCP Requested Referral 12/15/2021 12/15/2022 1 1 Specialty Diagnoses / Procedures Referred By Contac t Referred To Contact [facility] Diagnoses Nausea and vomiting, unspecified vomiting type Left upper quadrant abdominal pain Procedures EGD DIAGNOSTIC ESOPHAGOGASTRODUODENOSC OPY TRANSORAL DIAGNOSTIC Anastasiya Mosqueda PA-C [address] [place] [address] [facility] [place] [address] [place] [address] Referral ID Status Reason Start Date Expiration Date Visits Requested Visits Authorized [id number] Authorized Auto-Generat ed Referral 12/15/2021 12/15/2022 1 1 Medications Administered Section Inactive Administered Medications - up to 3 most recent administrations Medication Order MAR Action Action Date Dose Rate Site benzocaine 20% (TOPEX) TOPICAL, X (OR/PROCEDURE) PRN, Starting on Sat01/01/22 at 1606, Until Sat01/01/22 at 1606, Intraprocedure Given 01/01/2022 4:06 PM EDT 1 [place] NaCl 0.9% iv infusion 30 mL/hr, INTRAVENOUS, [...] Care Teams (unrecognized sec tion and content) [employer] Data Warehouse Developer Relationship Specialty Start Date End Date Cristina Iqbal, CHILD WELFARE DIRECTOR [address] [place] [address] PCP - General Nurse Practitioner 07/18/20 [employer] Ware[employer] Developer Relationship Specialty Start Date End Date Cristina Iqbal, CHILD WELFARE DIRECTOR [address] [place] [address] PCP - General Nurse Practitioner 07/18/20 [employer] Warehouse Developer Relationship Specialty Start Date End Date Cristina Iqbal, CHILD WELFARE DIRECTOR [address] [place] [address] PCP - General Nurse Practitioner 07/18/20 [employer] Data Warehouse Developer Relationship Specialty Start Date End Date Cristina Iqbal, CHILD WELFARE DIRECTOR [address] [place] [address] PCP - General Nurse Practitioner 07/18/20 [employer] Data Warehouse Developer Relationship Specialty Start Date End Date Cristina Iqbal CHILD WELFARE DIRECTOR [address] [place] [address] PCP - General Nurse Practitioner 07/18/20 [employer] Data Warehouse Developer Relationship Specialty Start Date End Date Cristina Iqbal, CHILD WELFARE DIRECTOR [address] [place] [address] PCP - General Family Medicine 10/15/12 [employer] Data Warehouse Developer Relationship Specialty Start Date End Date Cristina Iqbal, CHILD WELFARE DIRECTOR [address] [place] [address] PCP - General Family Medicine 10/15/12 [employer] Data Warehouse Developer Relationship Specialty Start Date End Date Cristina Iqbal CHILD WELFARE DIRECTOR [address] [place] [address] PCP - General Family Medicine 10/15/12 [employer] Data Warehouse Developer Relationship Specialty Start Date End Date Cristina Iqbal CHILD WELFARE DIRECTOR [address] [place] [address] PCP - General Family Medicine 10/15/12 [employer] Data Warehouse Developer Relationship Specialty Start Date End Date Cristina Iqbal, CHILD WELFARE DIRECTOR [address] [place] [address] PCP - General Family Medicine 10/15/12 [employer] Data Warehouse Developer Relationship Specialty Start Date End Date Cristina Iqbal, CHILD WELFARE DIRECTOR [address] [place] [address] PCP - General Family Medicine 10/15/12 [employer] Data Warehouse Developer Relationship Specialty Start Date End Date Cristina Iqbal, CHILD WELFARE DIRECTOR [address] [place] [address] PCP - General Family Medicine 10/15/12 [employer] Data Warehouse Developer Relationship Specialty Start Date End Date rCistina Iqbal, CHILD WELFARE DIRECTOR [address] [place] [address] PCP - General Family Medicine 10/15/12 [employer] Data Warehouse Developer Relationship Specialty Start Date End Date Cristina Iqbal, CHILD WELFARE DIRECTOR [address] [place] [address] PCP - General Nurse Practitioner 07/18/20 [employer] Data Warehouse Developer Relationship Specialty Start Date End Date Cristina Iqbal, CHILD WELFARE DIRECTOR [address] [place] [address] PCP - General Family Medicine 10/15/12 [employer] Data Warehouse Developer Relationship Specialty Start Date End Date Cristina Iqbal, CHILD WELFARE DIRECTOR [address] [place] [address] PCP - General Family Medicine 10/15/12 [employer] Data Warehouse Developer Relationship Specialty Start Date End Date Cristina Iqbal, CHILD WELFARE DIRECTOR [address] [place] [address] PCP - General Family Medicine 10/15/12 [employer] Data Warehouse Developer Relationship Specialty Start Date End Date Cristina Iqbal, CHILD WELFARE DIRECTOR [address] [place] [address] PCP - General Family Medicine 10/15/12 [employer] Data Warehouse Developer Relationship Specialty Start Date End Date Cristina Iqbal, CHILD WELFARE DIRECTOR [address] [place] [address] PCP - General Nurse Practitioner 07/18/20 [employer] Warehouse Developer Relationship Specialty Start Date End Date Cristina Iqbal, CHILD WELFARE DIRECTOR [address] [place] [address] PCP - General Nurse Practitioner 07/18/20 [employer] Warehouse Developer Relationship Specialty Start Date End Date Cristina Iqbal, CHILD WELFARE DIRECTOR [address] [place] [address] PCP - General Family Medicine 10/15/12 [employer] Warehouse Developer Relationship Specialty Start Date End Date Cristina Iqbal, CHILD WELFARE DIRECTOR [address] [place] [address] PCP - General Family Medicine 10/15/12 [employer] Warehouse Developer Relationship Specialty Start Date End Date Cristina Iqbal, CHILD WELFARE DIRECTOR [address] [place] [address] PCP - General Family Medicine 10/15/12 [employer] Warehouse Developer Relationship Specialty Start Date End Date Cristina Iqbal, CHILD WELFARE DIRECTOR [address] [place] [address] PCP - General Family Medicine 10/15/12 INFORMATION SOURCE (unrecogn ized section and content) DATE CREATED AUTHOR 12/16/2021 [facility] DATE CREATED AUTHOR AUTHOR'S ORGANIZ ATION 12/20/2021 [facility] DATE CREATED AUTHOR AUTHOR'S ORGANIZ ATION 05/12/2022 [facility] DATE CREATED AUTHOR AUTHOR'S ORGANIZ ATION 05/31/2022 [facility] DATE CREATED AUTHOR AUTHOR'S ORGANIZ ATION 02/28/2024 [facility] DATE CREATED AUTHOR AUTHOR'S ORGANIZ ATION 03/04/2024 [facility] DATE CREATED AUTHOR AUTHOR'S ORGANIZ ATION 03/05/2024 [facility] Source Comments (unrecognize d section and content) In the event this informatio n is protected by the Federal Confidentiality of Alcohol and Drug Abuse Patient Records regulations: The Federal rules restrict any use of the information to criminally investigate or prosecute any alcohol or drug abuse patient.[facility] the event this information is protected by the Federal Confidentiality of Alcohol and Drug Abuse Patient Records regulations: The Federal rules restrict any use of the information to criminally investigate or prosecute any alcohol or drug abuse patient.[facility] the event this information is protected by the Federal Confidentiality of Alcohol and Drug Abuse Patient Records regulations: The Federal rules restrict any use of the information to criminally investigate or prosecute any alcohol or drug abuse patient.[facility] the event this information is protected by the Federal Confidentiality of Alcohol and Drug Abuse Patient Records regulations: The Federal rules restrict any use of the information to criminally investigate or prosecute any alcohol or drug abuse patient.[facility] the event this information is protected by the Federal Confidentiality of Alcohol and Drug Abuse Patient Records regulations: The Federal rules restrict any use of the information to criminally investigate or prosecute any alcohol or drug abuse patient.[facility] the event this information is protected by the Federal Confidentiality of Alcohol and Drug Abuse Patient Records regulations: The Federal rules restrict any use of the information to criminally investigate or prosecute any alcohol or drug abuse patient.[facility] Center[facility] the event this information is protected by the Federal Confidentiality of Alcohol and Drug Abuse Patient Records regulations: The Federal rules restrict any use of the information to criminally investigate or prosecute any alcohol or drug abuse patient.[facility] CenterIn the event this information is protected by the Federal Confidentiality of Alcohol and Drug Abuse Patient Records regulations: The Federal rules restrict any use of the information to criminally investigate or prosecute any alcohol or drug abuse patient.[facility] CenterIn the event this information is protected by the Federal Confidentiality of Alcohol and Drug Abuse Patient Records regulations: The Federal rules restrict any use of the information to criminally investigate or prosecute any alcohol or drug abuse patient.[facility] CenterIn the event this information is protected by the Federal Confidentiality of Alcohol and Drug Abuse Patient Records regulations: The Federal rules restrict any use of the information to criminally investigate or prosecute any alcohol or drug abuse patient.[facility] CenterIn the event this information is protected by the Federal Confidentiality of Alcohol and Drug Abuse Patient Records regulations: The Federal rules restrict any use of the information to criminally investigate or prosecute any alcohol or drug abuse patient.[facility] CenterIn the event this information is protected by the Federal Confidentiality of Alcohol and Drug Abuse Patient Records regulations: The Federal rules restrict any use of the information to criminally investigate or prosecute any alcohol or drug abuse patient.[facility] CenterIn the event this information is protected by the Federal Confidentiality of Alcohol and Drug Abuse Patient Records regulations: The Federal rules restrict any use of the information to criminally investigate or prosecute any alcohol or drug abuse patient.[facility] CenterIn the event this information is protected by the Federal Confidentiality of Alcohol and Drug Abuse Patient Records regulations: The Federal rules restrict any use of the information to criminally investigate or prosecute any alcohol or drug abuse patient.[facility] CenterIn the event this information is protected by the Federal Confidentiality of Alcohol and Drug Abuse Patient Records regulations: The Federal rules restrict any use of the information to criminally investigate or prosecute any alcohol or drug abuse patient.[facility] the event this information is protected by the Federal Confidentiality of Alcohol and Drug Abuse Patient Records regulations: The Federal rules restrict any use of the information to criminally investigate or prosecute any alcohol or drug abuse patient.[facility] CenterIn the event this information is protected by the Federal Confidentiality of Alcohol and Drug Abuse Patient Records regulations: The Federal rules restrict any use of the information to criminally investigate or prosecute any alcohol or drug abuse patient.[facility] CenterIn the event this information is protected by the Federal Confidentiality of Alcohol and Drug Abuse Patient Records regulations: The Federal rules restrict any use of the information to criminally investigate or prosecute any alcohol or drug abuse patient.[facility] the event this information is protected by the Federal Confidentiality of Alcohol and Drug Abuse Patient Records regulations: The Federal rules restrict any use of the information to criminally investigate or prosecute any alcohol or drug abuse patient.[facility] CenterIn the event this information is protected by the Federal Confidentiality of Alcohol and Drug Abuse Patient Records regulations: The Federal rules restrict any use of the information to criminally investigate or prosecute any alcohol or drug abuse patient.[facility] CenterIn the event this information is protected by the Federal Confidentiality of Alcohol and Drug Abuse Patient Records regulations: The Federal rules restrict any use of the information to criminally investigate or prosecute any alcohol or drug abuse patient.[facility] FOR RECORDS PERTAINING TO PATIENTS WHO ARE [...] BE BASED ON THE PRIMARY CLINICAL RECORDS. [facility]. provides no warranty or guarantee of the accuracy or completeness of information in this document.
[2024-03-15 09:04] VITALS: BP 119/96; TEMP 36.8; O2SAT 98; BMI 20.4
--- NOTE | 2024-03-15 09:04 | ED.NAVMDI1 ---
HPI - Nausea/Vomiting/Diarrhea General Chief complaint: Nausea/Vomiting/Diarrhea Stated complaint: VOMITING, DIARRHEA, ABDOMINAL PAIN Time Seen by Provider: 03/15/24 08:55 Source: patient and family History of Present Illness HPI Narrative: Right patient here at the complaining of ongoing nausea vomiting diarrhea. This current episode is lasting about the last 5 days. However she says this has been going off and on for a long time. Her previous episode was around . She has seen a procurement professional logistics in [place] who just a week or so ago did a upper endoscopy and she was told that she had a hiatal hernia. She has not had a colonoscopy for over a year but was told that she had some minor polyps but no inflammatory bowel disease. She has not seen any blood in the vomitus or the diarrhea. She has not run a fever with the vomitus or diarrhea. No other family members have this. She has not been on antibiotics and she has not had any travel history. She says she is having episodes approximately 10 episodes of watery diarrhea a day. Related Data Home Medications ?Medication ?Instructions ?Recorded ?Confirmed clonidine HCl 0.1 mg tablet mg 03/15/24 lamotrigine 200 mg tablet mg 03/15/24 lamotrigine 25 mg tablet mg 03/15/24 mirtazapine 7.5 mg tablet mg 03/15/24 olanzapine 10 mg tablet mg 03/15/24 omeprazole 20 mg capsule,delayed mg 03/15/24 release ondansetron 4 mg disintegrating mg 03/15/24 tablet Allergies Allergy/AdvReac Type Severity Reaction Status Date / Time No Known Drug Allergies Allergy Verified 03/15/24 09:04 PFSH PFS Social History Little interest or pleasure in doing things: not at all Feeling down, depressed, or hopeless: not at all Exam Narrative Exam Narrative: Alert anxious complains of abdominal cramping type of pain. Vital signs are stable afebrile no tachycardia normal blood pressure. Mucous memories are moist and pink there is no scleral icterus or jaundice. Pupils are midposition and reactive. New Bowel sounds are present are not hypertympanic or abnormal. There is no guarding rebound rigidity or peritoneal findings. Previous surgical incisions are noted but did not appear to show any evidence of herniation or complications. Neurological examination with no focal neurologic complaints or deficits. Extremities are unremarkable with no joint pain or swelling or erythema. MDM - Nausea/Vomiting/Diarrhea MDM Narrative Medical decision making narrative: This patient is under the care of numerous specialist including GI doctors. Apparently they have not commented on the etiology of her chronic long-lasting diarrhea and GI symptoms. Incidentally her urine toxicology is positive for THC and this may be contributing to cyclic vomiting this will be discussed with her. Otherwise her laboratory testing is remarkably unremarkable. She was given 3 antinausea medications with moderate relief. There was no clinical evidence of dehydration this was based purely on her history and yet she was not able to provide any stool specimen while being here for multiple hours. There is no indication or likelihood of C. difficile since she has not been on any antibiotics or in a healthcare facility recently. Since she is under the care of a procurement professional logistics I advised further follow-up with them Discharge Plan Discharge Chief Complaint: Nausea/Vomiting/Diarrhea Clinical Impression: Nausea vomiting and diarrhea Patient Disposition: Home, Self-Care Time of Disposition Decision: 12:56 Prescriptions / Home Meds: No Action clonidine HCl 0.1 mg tablet lamotrigine 200 mg tablet olanzapine 10 mg tablet lamotrigine 25 mg tablet omeprazole 20 mg capsule,delayed release(DR/EC) ondansetron 4 mg tablet,disintegrating mirtazapine 7.5 mg tablet Print Language: Stateless Additional Instructions: Follow-up with your procurement professional logistics, clear fluids only and small but frequent sips Referrals: ROQUE MORALES [Primary Care Provider] - 1 week
[2024-03-15] MEDS: 0.9 % SODIUM CHLORIDE 1,000 ML 999 ML IV ×2 (09:30→11:15)
[2024-03-15] MEDS: ONDANSETRON PF 4 MG/2 ML VIAL IV (09:35)
[2024-03-15 09:37] LABS: Basophils Percent Auto 0.3 % (0.2-2.0); Eosinophils Percent Auto 0.2 % (0.9-7.0); Hematocrit 45.3 % (36.0-48.0); Hemoglobin 14.7 g/dL (12.0-16.0); Immature Granulocytes Abs Auto 0.06 10^3/uL (0.00-0.03); Immature Granulocytes Pct Auto 0.4 % (0.0-0.5); Lymphocytes Absolute Auto 1.4 10^3/uL (1.2-3.8); Lymphocytes Percent Auto 9.3 % (20.5-60.0); Mean Corpuscular HGB Conc 32.5 g/dL (29.9-35.2); Mean Corpuscular Hemoglobin 29.5 pg (26.7-34.0); Mean Platelet Volume 10.7 fL (9.5-13.5); Monocytes Absolute Auto 0.5 10^3/uL (0.3-0.8); Monocytes Percent Auto 3.1 % (1.7-12.0); Neutrophils Absolute Auto 13.3 10^3/uL (1.4-6.5); Neutrophils Percent Auto 86.7 % (43.0-75.0); Platelet Count 270 10^3/uL (150-450); Red Blood Count 4.98 10^6/uL (4.20-5.40); Red Cell Distribution Width 14.9 % (11.0-15.0); White Blood Count 15.3 10^3/uL (4.0-11.0)
--- NOTE | 2024-03-15 09:42 | PC.NURSE ---
RLQ and upper abd pain with N/V/D for the past 5 days. States often has these episodes. Seeing a Crm Coordinator. Diagnosed with hiatal hernia.
[2024-03-15 10:07] LABS: Alanine Aminotransferase 50 U/L (14-59); Albumin Level 3.8 g/dL (3.4-5.0); Alkaline Phosphatase 101 U/L (46-116); Aspartate Amino Transferase 33 U/L (15-37); BUN Creatinine Ratio 5.1; Bilirubin Total 0.5 mg/dL (0.2-1.0); Calcium 9.5 mg/dL (8.5-10.1); Carbon Dioxide 26.6 mmol/L (21.0-32.0); Chloride 104 mmol/L (98-107); Estimated GFR (African America >60 (>=60 mL/min/1.73m^2); Estimated GFR (Non-African Ame 59 (>=60 mL/min/1.73m^2); Globulin 3.7 g/dL; Glucose 114 mg/dL (74-106); Potassium 3.6 mmol/L (3.5-5.1); Sodium 141 mmol/L (136-145); Total Protein 7.5 g/dL (6.4-8.2)
[2024-03-15] MEDS: HYDROMORPHONE HCL 1 MG/ML CARTRIDGE IV (10:23)
[2024-03-15] MEDS: PROMETHAZINE HCL 12.5 MG in 0.9 % SODIUM CHLORIDE 50 ML 202 MG IV (10:26)
[2024-03-15 11:17] VITALS: BP 134/79; PULSE 87; O2SAT 99
[2024-03-15 11:55] LABS: Bilirubin Urine NEGATIVE (NEGATIVE); Blood Urine SMALL (NEGATIVE); Clarity Urine CLEAR (CLEAR); Color Urine LT. YELLOW (YELLOW); Glucose Urine UA NEGATIVE (NEGATIVE); Ketones Urine NEGATIVE (NEGATIVE); Leukocyte Esterase Urine MODERATE (NEGATIVE); Nitrite Urine NEGATIVE (NEGATIVE); Protein Urine NEGATIVE (NEG/TRACE); Specific Gravity Urine <=1.005 (1.005-1.025)
[2024-03-15] MEDS: METOCLOPRAMIDE HCL 10 MG/2 ML VIAL IVP (12:05)
[2024-03-15 12:10] LABS: Urine Microscopic Indicated YES
[2024-03-15 12:11] LABS: RBC Urine 0-2 #/HPF (0-2)
[2024-03-15 12:12] LABS: Bacteria Urine SMALL #/HPF (NONE SEEN); Cast Seen? NONE SEEN #/LPF (NONE SEEN); Crystals Seen? None Seen #/HPF (None Seen); Mucus Urine NONE SEEN (NONE SEEN); Squamous Epithelial Cell Urine FEW #/LPF (NONE/RARE); Urine Culture Indicated YES
[2024-03-15 12:26] LABS: Amphetamine Screen Urine NEGATIVE (NEGATIVE); Barbiturates Screen Urine NEGATIVE (NEGATIVE); Benzodiazepines Screen Urine POSITIVE (NEGATIVE); Buprenorphine Screen Urine NEGATIVE (NEGATIVE); Cannabinoid Screen Urine POSITIVE (NEGATIVE); Cocaine Screen Urine NEGATIVE (NEGATIVE); Methadone Screen Urine NEGATIVE (NEGATIVE); Methamphetamines Screen Urine NEGATIVE (NEGATIVE); Opiate Screen Urine NEGATIVE (NEGATIVE); Oxycodone Screen Urine NEGATIVE (NEGATIVE); Phencyclidine Screen Urine NEGATIVE (NEGATIVE); Tricyclic Antidepressant Urine NEGATIVE (NEGATIVE)
[2024-03-15 13:39] VITALS: BP 142/76; PULSE 93; O2SAT 97
[2024-03-15 15:01] LABS: Internal Control Within Normal Limits; Occult Blood Negative
[2024-03-15 15:20] LABS: C. Difficile PCR NEGATIVE
[2024-03-17 09:41] LABS: BOX Test Reference Lab FIRELANDS
== END 2024-03-15 13:42 | disposition home or self-care (01) ==
PROVIDERS: Emergency Provider Emergency Medicine Emergency Medical Services; PCP Nurse Practitioner
DX: R11.2 Nausea with vomiting, unspecified (principal); R19.7 Diarrhea, unspecified; K44.9 Diaphragmatic hernia without obstruction or gangrene
CPT/HCPCS: 36415; 80053; 80307; 81001; 83605; 85025; 87086; 87493; 96361; 96365; 96375; 99284; G0328; J1171; J2405; J2550; J2765

== ENCOUNTER 2024-05-05 01:11 | Inpatient (IN) | payer OTHER, SELFPAY ==
[2024-05-05] VITALS (34 sets, daily range): BP systolic 101–158; BP diastolic 51–110; PULSE 72–137; TEMP 36.3–36.7; O2SAT 88–100; BMI 21.3; BMI 21.8
[2024-05-05] MEDS: IPRATROPIUM/ALBUTEROL SULFATE 3 ML AMPUL.NEB IH ×5 (01:15→23:49)
--- NOTE | 2024-05-05 01:17 | XR_ITS ---
The [address] [address] Patient Name: SAI BURRIS MRN: [id number] date: 1970 Sex: F Assigned Patient Location: ED.MAIN Current Patient Location: ER Accession/Order Number: [id number] Exam Date: 05/15/2017 13:07 Report Date: 05/15/2017 13:12 At the request of: ANNELISE FRAZIER MD Procedure: XR chest 1V CLINICAL DATA: Follow-up axillary nodularity. LEFT DIAGNOSTIC MAMMOGRAMS - FULL FIELD DIGITAL WITH TOMOSYNTHESIS AND CAD Routine and tomosynthesis craniocaudal and mediolateral oblique views of both breasts were obtained using low-dose digital technique. Comparison is made to prior studies from March 07, 2010 through October 26, 2013. This examination was reviewed with the aid of CAD. The breast parenchyma has been largely replaced by fat. There are no dominant masses, typically malignant calcifications or architectural distortion. The nodular area of concern at the posterior left breast on the recent comparison MLO view is not included on today's images as it wasn't in 2013. However it is stable from 2009 and 2010 and is thought to be a lymph node. There has been no significant interval change.
--- NOTE | 2024-05-05 01:27 | ED_ITS ---
HPI HPI - General Adult General Chief complaint: Shortness of Breath/Dyspnea Stated complaint: SOB Time Seen by Provider: 05/05/24 01:11 Source: patient Mode of arrival: Wheelchair Limitations: no limitations History of Present Illness HPI narrative: 53-year-old male present for difficulty breathing. She states it started at 6 PM, about 7 hours ago. She used her inhaler but it did not help much. She has not had a productive cough but at least 1 other family members ill at home. No hemoptysis. She has been nauseous when she coughs. She also has chronic diarrhea and its unchanged. Related Data Home Medications ?Medication ?Instructions ?Recorded ?Confirmed clonidine HCl 0.1 mg tablet mg 03/15/24 lamotrigine 200 mg tablet mg 03/15/24 lamotrigine 25 mg tablet mg 03/15/24 mirtazapine 7.5 mg tablet mg 03/15/24 olanzapine 10 mg tablet mg 03/15/24 omeprazole 20 mg capsule,delayed mg 03/15/24 release ondansetron 4 mg disintegrating mg 03/15/24 tablet Allergies Allergy/AdvReac Type Severity Reaction Status Date / Time No Known Drug Allergies Allergy Verified 05/05/24 01:26 Opioid HPI Opioid Management Most Recent Opioid Data: Ur Phencyclidine Scrn Negative (NEGATIVE) 03/15/24 09:10 02/16 12/09 Review of Systems ROS Narrative A ten point review of systems is negative except as noted above. PFSH PFSH Social History Little interest or pleasure in doing things: not at all Feeling down, depressed, or hopeless: not at all Exam Narrative Exam Narrative: Nurses note and vital signs reviewed and patient is not hypoxic. General: The patient appears moderately dyspneic. She is using accessory muscles to breathe. Skin: Warm, dry, no pallor noted. There is no rash noted. Head: Normocephalic, atraumatic Eye: Normal conjunctiva, no drainage Ears, Nose, Mouth, and Throat: oral mucosa is moist. Nares patent. Cardiovascular: Regular Rate and Rhythm, tachycardic Respiratory: Breath sounds are diminished but equal Back: non-tender GI: Soft and nontender Musculoskeletal: The patient has no evidence of calf tenderness, no pitting edema, symmetrical pulses noted bilaterally Neurological: A&O, normal speech Psychiatric: Cooperative Constitutional Vital Signs, click to edit/add: Last Vital Signs Temp 98.1 F 05/05/24 02:05 Pulse 132 H 05/05/24 02:00 Resp 25 H 05/05/24 02:00 BP 123/81 05/05/24 02:00 Pulse Ox 98 05/05/24 02:00 O2 Del Method Nonrebreather 05/05/24 01:15 O2 Flow Rate 2 05/05/24 02:00 Course Vital Signs Vital signs: Vital Signs Pulse Rate 124 H 05/05/24 01:15 Respiratory Rate 48 H 05/05/24 01:15 Blood Pressure 158/110 H 05/05/24 01:15 Pulse Oximetry 100 05/05/24 01:15 Oxygen Delivery Method Nonrebreather 05/05/24 01:15 Temperature 98.1 F 05/05/24 02:05 Pulse Rate 132 H 05/05/24 02:00 Respiratory Rate 25 H 05/05/24 02:00 Blood Pressure 123/81 05/05/24 02:00 Pulse Oximetry 98 05/05/24 02:00 Oxygen Delivery Method Nonrebreather 05/05/24 01:15 Oxygen Delivery Flow Rate 2 05/05/24 02:00 Medical Decision Making MDM Narrative Medical decision making narrative: COVID and influenza test are negative and chest x-ray shows no infiltrate. My clinical impression is that she has had a COPD exacerbation. She was given IV Solu-Medrol and multiple aerosol treatments and is being admitted. Blood cultures were also obtained and she was given IV Levaquin. Treatment diagnosis and disposition were discussed with the patient. I have no clinical suspicion of pulmonary embolism. Chest x-ray per radiologist shows no acute process in the chest. They see no lobar consolidation or edema or pleural effusion or pneumothorax. Differential Diagnosis Differential Diagnosis: COVID, influenza, pneumonia, COPD exacerbation Lab Data Lab results reviewed: Yes I reviewed the patient's lab results Labs: Lab Results 05/05/24 05/05/24 05/05/24 Range/Units 01:34 01:52 02:14 WBC 13.4 H (4.0-11.0) 10^3/uL RBC 4.90 (4.20-5.40) 10^6/uL Hgb 14.5 (12.0-16.0) g/dL Hct 44.3 (36.0-48.0) % MCV 90.4 (81.0-99.0) fL MCH 29.6 (26.7-34.0) pg MCHC 32.7 (29.9-35.2) g/dL RDW 14.2 (11.0-15.0) % Plt Count 230 (150-450) 10^3/uL MPV 11.5 (9.5-13.5) fL Neut % (Auto) 83.8 H (43.0-75.0) % Lymph % (Auto) 6.9 L (20.5-60.0) % [place] % (Auto) 7.2 (1.7-12.0) % Eos % (Auto) 0.3 L (0.9-7.0) % Baso % (Auto) 0.5 (0.2-2.0) % Neut # (Auto) 11.2 H (1.4-6.5) 10^3/uL Lymph # (Auto) 0.9 L (1.2-3.8) 10^3/uL [place] # (Auto) 1.0 H (0.3-0.8) 10^3/uL Eos # (Auto) 0.0 (0.0-0.7) 10^3/uL Baso # (Auto) 0.1 (0.0-0.1) 10^3/uL Abs Immat Gran (auto) 0.18 H (0.00-0.03) 10^3/uL Imm/Tot Granulo (auto) 1.3 H (0.0-0.5) % Sodium 136 (136-145) mmol/L Potassium 3.4 L (3.5-5.1) mmol/L Chloride 102 (98-107) mmol/L Carbon Dioxide 26.6 (21.0-32.0) mmol/L Anion Gap 10.8 BUN 11.0 (7.0-18.0) mg/dL Creatinine 1.07 H (0.55-1.02) mg/dL Est GFR ( Amer) >60 (>=60 mL/min/1.73m^2) Est GFR (Non-Af Amer) 54 L (>=60 mL/min/1.73m^2) BUN/Creatinine Ratio 10.3 Glucose 144 H (74-106) mg/dL Calcium 9.0 (8.5-10.1) mg/dL Troponin I High Sens 8.6 (4.0-51.3) pg/mL Influenza Type A Ag Negative Influenza Type B Ag Negative SARS-CoV-2 Ag (CV2AG) Negative (NEGATIVE) ECG Data Attestation: I personally reviewed and interpreted this ECG as follows: (EKG on my interpretation shows sinus tachycardia with rate of 127) Discharge Plan Discharge Chief Complaint: Shortness of Breath/Dyspnea Clinical Impression: COPD exacerbation Patient Disposition: Admitted as Observation Time of Disposition Decision: 02:49 Condition: Fair
[2024-05-05] MEDS: METHYLPREDNISOLONE SOD SUCC PF 125 MG/2 ML VIAL IVP (01:32)
--- OUTSIDE RECORDS SUMMARY | 2024-05-05 01:39 | XMS_ITS | CCD ---
Author Organization [facility] Care Team Providers Care Helpdesk Manager Name Role Phone Cristina Iqbal CNP Primary Care Provider Vipni Pina Attending Unavailable Roshni Werner Attending Unavailable Cristina Iqbal CNP Primary Care Provider CRISTINA IQBAL Primary Care Unavailable GEHLOT, UPENDER Attending Unavailable CRISTINA IQBAL Primary Care Unavailable GEHLOT, UPENDER Attending Unavailable CRISTINA IQBAL Primary Care Unavailable GEHLOT, UPENDER Attending Unavailable CRISTINA IQBAL Primary Care Unavailable GEHLOT, UPENDER Attending Unavailable ReneehCristina oh CNP Primary Care Provider Cristina Iqbal CNP Primary Care Provider Cristina Iqbal CNP Primary Care Provider [phone] PARKER IQBALA ALEE Primary Care Unavailable KIRSTEN DALTON Attending Unavailable ROGER CRISTINA ALEE Primary Care Unavailable MUKHJACOBI, ANASTASIYA Referring Unavailable MUKHJACOBI, ANASTASIYA Attending Unavailable AICHHOLZ, CRISTINA ALEE Primary Care Unavailable MUKHJACOBI, ANASTASIYA Attending Unavailable RENEEHSOPHIE, CRISTINA ALEE Referring Unavailable AICHHOLZ, CRISTINA ALEE Primary Care Unavailable AICHHOLZ, CRISTINA ALEE Primary Care Unavailable AICHMARYAMZ, CRISTINA ALEE Referring Unavailable TIFFANI MORALES Attending Unavailable FREDERICK HCAVES Attending Unavailable AICHHOLZ, CRISTINA ALEE Primary Care Unavailable TIFFANI MORALES Referring Unavailable AICHHOLZ, CRISTINA ALEE Primary Care Unavailable TIFFANI MORALES Referring Unavailable TIFFANI MORALES Attending Unavailable ROGER, CRISTINA ALEE Primary Care Unavailable YAN GARCIA JR Attending Unavailable AICHHOLZ, CRISTINA ALEE Primary Care Unavailable JAYLIN ANASTASIYA Referring Unavailable AICHHOLZ, MINE CAR DISPATCHER CRISTINA Primary Care Unavailable ANNELISE FRAZIER Admitting Unavailable ANNELISE FRAZIER Attending Unavailable ANNELISE FRAZIER Consulting Unavailable BELEN REGAN Consulting Unavailable IRINA SEGURA Admitting Unavailable IRINA SEGURA Attending Unavailable AICHHOLZ, MINE CAR DISPATCHER CRISTINA Primary Care Unavailable MISC, DR DECKER Consulting Unavailable GEHLOT, UPENDER Admitting Unavailable GEHLOT, UPENDER Attending Unavailable AICHHOLZ, MINE CAR DISPATCHER CRISTINA Referring Unavailable AICHHOLZ, MINE CAR DISPATCHER CRISTINA Primary Care Unavailable GEHLOT, UPENDER Consulting Unavailable BENEDICT, DR RYDER Admitting Unavailable BENEDICT, DR RYDER Attending Unavailable AICHHOLZ, MINE CAR DISPATCHER CRISTINA Primary Care Unavailable BENEDICT, DR RYDER Consulting Unavailable MISC, DR DECKER Admitting Unavailable MISC, DR DECKER Attending Unavailable AICHHOLZ, MINE CAR DISPATCHER CRISTINA Primary Care Unavailable MISC, DR DECKER Consulting Unavailable AICHOLZ, MINE CAR DISPATCHER CRISTINA Primary Care Unavailable PAY ., DR ZULUAGA Admitting Unavailable PAY ., DR ZULUAGA Attending Unavailable PAY ., DR ZULUAGA Consulting Unavailable CHITRA ALFARO Consulting Unavailable AICHHOLZ, MINE CAR DISPATCHER CRISTINA Primary Care Unavailable PAY ., DR ZULUAGA Admitting Unavailable PAY ., DR ZULUAGA Attending Unavailable ZIEBER, DR RYDER R Consulting Unavailable PAY ., DR ZULUGAA Consulting Unavailable AICHOLZ, MINE CAR DISPATCHER CRISTINA Primary Care Unavailable TJ .GELA Admitting Unavailable TJ ., GELA Attending Unavailable BARBI HENRY Consulting Unavailable TJ ., GELA Consulting Unavailable [facility] Primary Care Physician Lala Zarco Primary Care Physician Eligio Noe Attending Unavailable Eligio Noe Admitting Unavailable Aichholz, Cristina J Primary Care Unavailable [facility] Primary Care Unavailable Sandoval Rae Admitting Unavailable Sandoval Rae Attending Unavailable Sandoval Rae Referring Unavailable Sandoval Rae Attending Unavailable Sandoval Rae Attending Unavailable Sandoval Rae Attending Unavailable Sandoval Rae Attending Unavailable Lala Zarco Attending Unavailable Lala Zarco Attending Unavailable [facility] Unavailable Lala Zarco Attending Unavailable Sandoval Rae Admitting Unavailable Sandoval Rae [...] by mouth three times daily as needed. amitriptyline hydrochloride 25 mg oral tablet (1 source) Tricyclic Antidepressant Start: 025 take 1 tablet by mouth once daily at bedtime Elavil 25 mg Tab 25 mg = 1 tab(s), Oral, Once a day (at bedtime), # 30 tab(s), Refills(s) 5, Pharmacy: [facility]/pharmacy #[id number], 169, cm, 03/23/24 13:17:00 EST, Height/Length Dosing, 64.9, kg, 03/23/24 13:17:00 EST, Weight Dosing Start Date: 03/23/24 Status: Ordered ARIPiprazole 5 mg oral tablet (2 sources) Atypical Antipsychotic Start: take 1 tablet by mouth once daily ARIPiprazole (ABILIFY) 5 MG tablet Take 1 (one) tablet (5 mg total) by mouth daily . 30 tablet 2 09/27/2021 Active cephalexin 500 mg oral capsule (1 source) Cephalosporin Antibacterial Start: End: take 1 capsule by mouth every twelve hours Keflex 500 mg Cap 500 mg = 1 cap(s), Oral, q12hr, X 5 day(s), # 10 cap(s), Refills(s) 0, Pharmacy: [facility]/pharmacy #[id number], 172, cm, 09/24/23 13:02:00 EDT, Height/Length Dosing, 61.2, kg, 09/24/23 13:02:00 EDT, Weight Dosing Start Date: 09/24/23 Stop Date: 09/29/23 Status: Ordered cholestyramine resin 4000 mg powder for oral suspension (5 sources) Bile Acid Sequestrant Start: 024 Questran 4 g/9 g oral powder = 1 packet(s), Oral, BID, # 60 EA, Refills(s) 2, Pharmacy: [facility]/pharmacy #[id number], 169, cm, 01/16/24 10:14:00 EDT, Height/Length Dosing, 63.9, kg, 01/16/24 10:14:00 EDT, Weight Dosing Start Date: 01/16/24 Status: Ordered cloNIDine hydrochloride 0.2 mg oral tablet (20 sources) Central alpha-2 Adrenergic Agonist Start: End: take 1 tablet by mouth at bedtime cloNIDine 0.2 mg Tab 0.2 mg = 1 tab(s), Oral, Bedtime, # 30 tab(s), Refills(s) 1, Pharmacy: [facility]/pharmacy #[id number], 173, cm, 05/24/20 14:42:00 EST, Height/Length Dosing, 50.1, kg, 05/24/20 14:42:00 EST, Weight Dosing Start Date: 05/24/20 Status: Ordered colestipol hydrochloride 1000 mg oral tablet (5 sources) Bile Acid Sequestrant Start: take 2 tablets by mouth twice daily colestipol 1 g Tab 2 gm = 2 tab(s), Oral, BID, with a full glass of water, # 120 tab(s), Refills(s) 1, Pharmacy: [facility]/pharmacy #[id number], 169, cm, 01/16/24 10:14:00 EDT, Height/Length Dosing, 63.9, kg, 01/16/24 10:14:00 EDT, Weight Dosing Start Date: 01/23/24 Status: Ordered enteric contrast (will be provided with radiology test) (1 source) Start: End: enteric contrast (will be provided with radiology [...] guidelines. hydrOXYzine hydrochloride 50 mg oral tablet (14 sources) Antihistamine Start: 02-09-2 021 take 1 tablet by mouth three times daily as needed for anxiety hydrOXYzine hydrochloride 50 mg oral tablet 50 mg = 1 tab(s), Oral, TID, PRN as needed for anxiety, # 30 tab(s), Refills(s) 0, Pharmacy: [facility]/pharmacy #[id number], 173, cm, 04/26/20 13:07:00 EST, Height/Length [...] AFTERNOON, # 30 tab(s), Refills(s) 0, Pharmacy: [id number], 169.7, cm, 11/26/23 15:32:00 EDT, Height/Length Dosing, [...] mouth . mirtazapine 7.5 mg oral tablet (6 sources) Start: take 1 tablet by mouth at bedtime mirtazapine 7.5 mg oral tablet 7.5 mg = 1 tab(s), Oral, Bedtime, # 30 tab(s), Refills(s) 0, Pharmacy: [facility]/pharmacy #[id number], 169.7, cm, 10/03/23 9:38:00 EDT, [...] omeprazole 20 mg delayed release oral capsule (6 sources) Proton Pump Inhibitor Start: 03-23-2024 take 1 capsule by mouth once daily omeprazole 20 mg Cap-DR See Instructions, TAKE 1 CAPSULE BY MOUTH EVERY DAY, # 30 cap(s), Refills(s) 0, Pharmacy: [id number], 169, cm, 02/25/24 9:14:00 EST, Height/Length Dosing, 62.2, kg, 02/25/24 9:14:00 EST, Weight Dosing Start Date: 03/23/24 Status: Ordered Start: 02-24-2024 take 1 capsule by [facility] once daily omeprazole 20 mg Cap-DR See Instructions, TAKE 1 CAPSULE BY MOUTH EVERY DAY, # 30 cap(s), Refills(s) 0, Pharmacy: [id number], 169, cm, 02/21/24 8:47:00 EST, Height/Length Dosing, 62.2, kg, 02/21/24 8:47:00 EST, Weight Dosing Start Date: 02/24/24 Status: Ordered Start: 01-20-2024 take 1 capsule by [facility] once daily omeprazole 20 mg Cap- See Instructions, TAKE 1 CAPSULE BY MOUTH EVERY DAY, # 30 cap(s), Refills(s) 0, Pharmacy: [id number], 169, cm, 01/16/24 10:14:00 EDT, Height/Length Dosing, 63.9, kg, 01/16/24 10:14:00 EDT, Weight Dosing Start Date: 01/20/24 Status: Ordered Start: 12-04-2023 take 1 capsule by [facility] once daily omeprazole 20 mg Cap-DR See Instructions, TAKE 1 CAPSULE BY MOUTH EVERY DAY, # 30 cap(s), Refills(s) 0, Pharmacy: [facility]/pharmacy #[id number], 169.7, cm, 11/26/23 15:32:00 EDT, Height/Length Dosing, 62.1, kg, 11/26/23 15:32:00 EDT, Weight Dosing Start Date: 12/04/23 Status: Ordered ondansetron 4 mg oral tablet (20 sources) Serotonin-3 Receptor Antagonist Start: 02-27-2024 take 1 tablet by mouth every eight hours as needed for nausea Zofran 4 mg Tab 4 mg = 1 tab(s), Oral, q8hr, PRN Nausea, # 30 tab(s), Refills(s) 0, Pharmacy: [facility]/pharmacy #[id number], 169, cm, 02/25/24 9:14:00 EST, Height/Length Dosing, 62.2, kg, 02/25/24 9:14:00 EST, Weight Dosing Start Date: 02/27/24 Status: Ordered Start: 02-18-2024 ondansetron 8 mg Dis Tab See Instructions, DISSOLVE 1 TABLET ON THE TONGUE EVERY 8 HOURS NEEDED FOR NAUSEA AND VOMITING, # 24 tab(s), Refills(s) 0, Pharmacy: [facility]/pharmacy #[id number], 169, cm, 02/18/24 11:55:00 EST, Height/Length Dosing, 61.8, kg, 02/18/24 11:55:00 EST, Weight Dosing Start Date: 02/18/24 Status: Ordered Start: 12-20-2023 [facility] six hours as needed for nausea ondansetron 4 mg Dis Tab 4 mg = 1 tab(s), Oral, q6hr, PRN Nausea/Vomiting, # 30 tab(s), Refills(s) 0, Pharmacy: [facility]/pharmacy #[id number], 169.7, cm, 11/26/23 15:32:00 EDT, [...] Nausea, # 10 tab(s), Refills(s) 0, Pharmacy: [facility]/pharmacy #[id number], 173, cm, 04/26/20 13:07:00 EST, Height/Length [...] by mouth once daily. polyethylene glycol 3350 31344 mg powder for oral solution (18 sources) Osmotic Laxative Start: 05-24-19 polyethylene glycol (MIRALAX) 17 gram powder MIX 1 PACKET IN DRINK AND TAKE ONCE DAILY 0 05/23/2020 Active promethazine hydrochloride 25 mg oral tablet (10 sources) Phenothiazine Start: 02-12-20 take 1 tablet by mouth three times daily promethazine 25 mg Tab 25 mg = 1 tab(s), Oral, TID, # 15 tab(s), Refills(s) 1, [id number], cm, 03/23/24 13:17:00 EST, Height/Length Dosing, 64.9, kg, 03/23/24 13:17:00 EST, Weight Dosing Start Date: 03/23/24 Status: Ordered Start: 09-24-2023 take 1 tablet by shahzad th three times daily promethazine 25 mg Tab 25 mg = 1 tab(s), Oral, TID, # 15 tab(s), Refills(s) 0, [id number], cm, 09/24/23 13:02:00 EDT, Height/Length Dosing, 61.2, kg, 09/24/23 13:02:00 EDT, Weight Dosing Start Date: 09/24/23 Status: Ordered Start: 12-03-2021 take 1 tablet by shahzad every four hours promethazine 25 mg Tab 25 mg = 1 tab(s), Oral, q4hr, # 12 tab(s), Refills(s) 0, [id number] 172.9, cm, 12/03/21 10:15:00 EDT, Height/Length Dosing, 46.2, kg, 12/03/21 10:15:00 EDT, Weight Dosing Start Date: 12/03/21 Status: Ordered Start: 12-03-2021 Phenergan 25 m g Supp 25 mg = 1 supp, Rectal, q6hr, PRN as needed for nausea, Insert one per rectum every six hours as needed for nausea and vomiting, # 6 EA, Refills(s) 0, Pharmacy: [facility]/pharmacy #[id number], 172.9, cm, 12/03/21 10:15:00 EDT, [...] day(s), # 56 tab(s), Refills(s) 0, Pharmacy: [facility]/pharmacy #[id number], 169, cm, 02/21/24 8:47:00 EST, [...] Daily, # 4 gm, Refills(s) 11, Pharmacy: [facility]/pharmacy #[id number], 169.7, cm, 11/26/23 15:32:00 EDT, [...] once daily. Ventolin HFA 90 mcg/inh Aerosol (7 sources) Start: 07-16-2019 take 2 puff(s) by inhalation every four hours for wheezing Ventolin HFA 90 mcg/inh Aerosol 2 puff(s), Inhalation, q4hr for wheezing, 18 gram, Refill(s) 0 Start Date: 07/16/19 Status: Ordered Zofran ODT 4 mg Tab-Dis (7 sources) Start: 09-24-2023 take 1 tablet by mouth three times daily Zofran ODT 4 mg Tab-Dis 4 mg = 1 tab(s), Oral, TID, # 15 tab(s), Refills(s) 0, Pharmacy: [facility]/pharmacy #[id number], 172, cm, 09/24/23 13:02:00 EDT, Height/Length Dosing, 61.2, kg, 09/24/23 13:02:00 EDT, Weight Dosing Start Date: 09/24/23 Status: Ordered Zofran ODT 8 mg Tab-Dis (5 sources) Start: 03-23-2024 take 1 tablet under the tongue every eight hours as needed for nausea Zofran ODT 8 mg Tab-Dis 8 mg = 1 tab(s), SubLingual, q8hr, PRN Nausea/Vomiting, # 24 tab(s), Refills(s) 0, Pharmacy: [facility]/pharmacy #[id number], 169, cm, 03/23/24 13:17:00 EST, Height/Length Dosing, 64.9, kg, 03/23/24 13:17:00 EST, Weight Dosing Start Date: 03/23/24 Status: Ordered Start: 02-12-2024 take 1 tablet under the tongue every eight hours as needed for nausea Zofran ODT 8 mg Tab-Dis 8 mg = 1 tab(s), SubLingual, q8hr, PRN Nausea/Vomiting, # 24 tab(s), Refills(s) 0, Pharmacy: [facility]/pharmacy #[id number], 169, cm, 01/16/24 10:14:00 EDT, Height/Length Dosing, 63.9, kg, 01/16/24 10:14:00 EDT, Weight Dosing Start Date: 02/12/24 Status: Ordered Start: 01-23-2024 take 1 tablet under the tongue every eight hours as needed for nausea Zofran ODT 8 mg Tab-Dis 8 mg = 1 tab(s), SubLingual, q8hr, PRN Nausea/Vomiting, # 24 tab(s), Refills(s) 0, Pharmacy: [facility]/pharmacy #[id number], 169, cm, 01/16/24 10:14:00 EDT, [...] (7 sources) Serotonin Reuptake Inhibitor End: 01-04-20 22 take 1 tablet by mouth once daily [...] quadrant pain] Onset: 2 Episodic Alcohol-related disorders (7 sources) Alcoholism 10-21-2019 Chronic Anxiety disorders (20 [...] vomiting, unspecified] Onset: 2 Episodic Noninfectious gastroenteritis (10 sources) Noninfectious enteritis; Translations: [Noninfective gastroenteritis and colitis, unspecified] Onset: 4 Episodic Nutritional deficiencies (20 sources) Deficiency of macronutrients; Translations: [Unspecified severe protein-calorie malnutrition] Onset: 2 Chronic Other aftercare (5 sources) H/O: high risk medication; Translations: [Other long distance operator (current) drug therapy] Episodic Other and unspecified benign neoplasm (1 source) Intestinal polyposis syndrome; Translations: [Benign neoplasm of colon, unspecified] Episodic Other and unspecified benign neoplasm (10 sources) History of polyp of colon; Translations: [Personal history of colon polyps, unspecified] Onset: 4 Episodic Other circulatory disease (20 sources) Raynaud's phenomenon; Translations: [Raynaud's syndrome without gangrene] Onset: 3 10-24-2012 Chronic Other circulatory disease (20 sources) Low blood pressure; Translations: [Hypotension, unspecified] Onset: 1 07-18-2020 Episodic Other disorders of stomach and duodenum (4 sources) Gastroduodenal disorder; Translations: [Disease of stomach and duodenum, unspecified] Onset: 4 Episodic Other disorders of stomach and duodenum (6 sources) Disorder of stomach 01-16-2024 Episodic Other gastrointestinal disorders (1 source) Irritable bowel syndrome without diarrhea; Translations: [IRRITABLE BOWEL SYND W/O DIARRHEA] Onset: 2 Chronic Other gastrointestinal disorders (20 sources) Incontinence of feces; Translations: [Full incontinence of feces] Onset: 1 07-18-2020 Episodic Other gastrointestinal disorders (1 source) Polyp of small intestine; Translations: [Other specified diseases of intestine] Episodic Other gastrointestinal disorders (6 sources) Diarrhea 11-26-2023 Episodic Other lower respiratory disease (7 sources) Chronic disease of respiratory system 04-26-2020 [...] Episodic Other nutritional; endocrine; and metabolic disorders (7 sources) Underweight 04-26-2020 Episodic Residual codes; unclassified [...] tract] Onset: 4 Episodic Residual codes; unclassified (3 sources) Amnesia 02-18-2024 Episodic Residual codes; unclassified (3 sources) Family history of dementia 02-18-2024 Episodic Substance-related disorders (13 sources) Nicotine dependence, cigarettes, uncomplicated; Translations: [Nicotine dependence] Onset: 2 04-26-2020 Chronic Comment on above: Added secondary to d ocumentation in Social History. Unclassified (1 source) APPOINTMENT CANCELLED Unclassified (2 sources) Medication Management Onset: 1 Unclassified (20 sources) Patient encounter status 04-26-2020 Unclassified (3 sources) Body mass index 20-24 - normal 02-18-2024 Urinary tract infections (1 source) Urinary tract infectious disease; Translations: [Urinary tract infection, site not specified] Onset: 4 Episodic Past or Other Problems Problem Classification Problem Date Documented Da te Episodic/Chronic Fluid and electrolyte disorders (1 source) Dehydration; Translations: [DEHYDRATION] Onset: 12-13-2021 Episodic Fracture of lower limb (7 sources) Fracture of foot Onset: 03-18-2018 04-26-2020 [...] 2021 Episodic Other aftercare (7 sources) Other long distance operator (current) drug therapy; Translations: [Other alf (current) drug therapy] Onset: 09-19-2021 Episodic Other [...] Test Name Value Interpretation Reference Range Facility Ambulatory Visit Summaryon 0 03-23-2024 Ambulatory Visit Summary Ambulatory Visit Summary SAI PINEDA :1970 Visit Date:03/23/2024 Ambulatory Visit Instructions Your Diagnosis Nausea and vomiting Epigastric pain Chronic diarrhea History of colon polyps Schatzki's ring Gastropathy Tetrahydrocannabinol (THC) dependence Your Care Team Attending Physician - Butch SANDOVAL, Sandoval Frost Primary Care Physician - Lala Horner This Is Your Medications List amitriptyline (Elavil 25 mg Tab) Contact prescribing physician if questions or concerns albuterol (Ventolin HFA 90 mcg/inh Aerosol) albuterol (albuterol 0.083% Inh Misty 3 mL) clonidine (cloNIDine 0.2 mg Tab) colestipol (colestipol 1 g Tab) hydrOXYzine (hydrOXYzine hydrochloride 50 mg oral tablet) lamotrigine (lamotrigine 25 mg Tab) mirtazapine (mirtazapine 7.5 mg oral tablet) omeprazole (omeprazole 20 mg Cap-DR) ondansetron (Zofran 4 mg Tab) ondansetron (Zofran ODT 4 mg Tab-Dis) ondansetron (Zofran ODT 8 mg Tab-Dis) ondansetron (ondansetron 4 mg Dis Tab) ondansetron (ondansetron 8 mg Dis Tab) promethazine (promethazine 25 mg Tab) promethazine (promethazine 25 mg Tab) promethazine (promethazine 25 mg Tab) tiotropium (Spiriva Respimat 10 ACT 2.5 mcg/inh inhalation aerosol) tiotropium (Spiriva Respimat 60 ACT 2.5 mcg/inh inhalation aerosol) Procedures Performed Esophagogastroduodenoscopy (02/25/2024), Colonoscopy (05/08/2019), EGD - Esophagogastroduodenoscopy (05/08/2019), CT - Computerized tomography (01/18/2019), Echocardiogram (11/14/2016), Cardiovascular stress testing (11/01/2016), Appendectomy, delivery, Cholecystectomy, Foot repair, Oral surgery, Total hysterectomy. Discharge Vitals Heart Rate (Peripheral) 96 Blood Pressure 102/70 Height 169 cm Height 67 in Weight 64.9 kg Weight 143.08 lb BMI 22.72 Medications What How Much When Why Instructions New amitriptyline (Elavil 25 mg Tab) 1 Tablets By Mouth Once a day (at bedtime) Nausea and vomiting Epigastric pain Chronic diarrhea History of colon polyps Schatzki's ring Gastropathy Tetrahydrocannabinol (THC) dependence Refills: [address] [facility]/pharmacy #[id number] Unchanged albuterol (albuterol 0.083% Inh Misty 3 [...] concerns Unchanged tiotropium (Spiriva Respimat 60 ACT 2 (more content not included)... Normal [facility] Gastroenterology Office/Clin ic Noteon 03-23-2024 Gastroenterology Office/Clinic Note Gastroenterology Office/Clinic Note Chief Complaint Nausea, vomiting, abdominal pain and diarrhea. HPI Staff This is a 53 year old female who presents today for a follow up to EGD. Patient c/o vomiting and diarrhea. Patient requesting nausea medication refill: Phenergan and Zofran 8 mg. Last office visit w/ Dr Rae History of Present Illness PT still with bad nausea pt with flares of diarrhea that comes and goes could last for 3 days Assessment/Plan 1. Nausea and vomiting (R11.2: Nausea with vomiting, unspecified) 2. Epigastric pain (R10.13: Epigastric pain) 3. Chronic diarrhea (K52.9: Noninfective gastroenteritis and colitis, unspecified) 4. Gastropathy (K31.9: Disease of stomach and duodenum, unspecified) 5. History of colon polyps (Z86.0100: Personal history of colon polyps, unspecified) 6. Schatzki's ring (K22.2: Esophageal obstruction) Patient did okay with colesevelam but she ran out of her prescription. We might prescribe later Will prescribe a course of Carafate tablets 4 times daily Continue Zofran and Phenergan for nausea Will repeat upper endoscopy given history of gastropathy and ongoing nausea Might benefit from IBgard and rifaximin in the future EGD w/ Dr Rae 02/21/24 Findings 1. Normal esophagus. Z-line irregular at 35 cm. Hiatal hernia measuring 5 cm 2. Erythema in the the whole stomach with bilious fluids. Biopsies of the stomach were taken to rule out H. pylori. 3. Flattening and scalloping throughout the whole examined duodenum status post biopsies. Small duodenal polyp measuring 3 mm s/p resection using cold snare Impression and Plan diffuse gastropathy Possible bile reflux Hiatal hernia Duodenal scalloping Duodenal polyp s/p resection Final Diagnosis (Verified) A: STOMACH, BIOPSY: ??? GASTRIC ANTRAL MUCOSA COMPATIBLE WITH MILD REACTIVE GASTROPATHY. ??? DETACHED UNREMARKABLE DUODENAL MUCOSA. ??? NO H. PYLORI MICROORGANISMS IDENTIFIED WITH IMMUNOSTAIN. B: POLYP, DUODENUM, POLYPECTOMY: ??? BENIGN REACTIVE DUODENAL MUCOSA. ??? NO ACTIVE INFLAMMATION, GRANULOMA OR DYSPLASIA. C: DUODENUM, BIOPSY: ??? BENIGN REACTIVE DUODENAL MUCOSA. ??? NO ACTIVE INFLAMMATION, GRANULOMA OR DYSPLASIA. History of Present Illness I have reviewed HPI staff note, most recent labs and imaging, I agree with the above documentation with the following additions/exceptions : PT feels fine for days then she gets flares of vomiting, diarrhea, and dry heaving smokes THC comes and goes has bad anxiety was on xanax for years but stopped by psychiatrist Review of Systems PHQ Score Initial Depression Screen Score: 0 SCORE All systems reviewed, negative except as mentioned above Physical Exam Vitals & Measurements HR: 96(Peripheral) BP: 102/70 HT: 67 in HT: 169 cm WT: 64.9 kg WT: 143.08 lb BMI: 22.72 General: alert, no acute distress HEENT: atraumatic normocephalic Cardiovascular: regular rate and rhythm, normal peripheral perfusion Respiratory: Lungs CTA, respirations non labored Extremities: no deformity, no trauma Abdomen: Benign, soft, nontender nondistended Assessment/Plan 1. Nausea and vomiting (R11.2: Nausea with vomiting, unspecified) Ordered: amitriptyline, 25 mg = 1 tab(s), Oral, Once a day (at bedtime), # 30 tab(s), Refills(s) 5, [id number], cm, 03/23/24 13:17:00 EST, Height/Length Dosing, 64.9, kg, 03/23/24 13:17:00 EST, Weight Dosing 2. Epigastric pain (R10.13: Epigastric pain) Ordered: amitriptyline, 25 mg = 1 tab(s), Oral, Once a day (at bedtime), # 30 tab(s), Refills(s) 5, [id number] 169, cm, 03/23/24 13:17:00 EST, Height/Length Dosing, 64.9, kg, 03/23/24 13:17:00 EST, Weight Dosing 3. Chronic diarrhea (K52.9: Noninfective gastroenteritis and colitis, unspecified) Ordered: amitriptyline, 25 mg = 1 tab(s), Oral, Once a day (at bedtime), # 30 tab(s), Refills(s) 5, [id number] 169, cm, 03/23/24 13:17:00 EST, Height/Length Dosing, 64.9, kg, 03/23/24 13:17:00 EST, Weight Dosing 4. History of colon polyps (Z86.0100: Personal history of colon polyps, unspecified) Ordered: amitriptyline, 25 mg = 1 tab(s), Oral, Once a day (at bedtime), # 30 tab(s), Refills(s) 5, [id number] 169, cm, 03/23/24 13:17:00 EST, Height/Length Dosing, 64.9, kg, 03/23/24 13:17:00 EST, Weight Dosing 5. Schatzki's ring (K22.2: Esophageal obstruction) Ordered: amitriptyline, 25 mg = 1 tab(s), Oral, Once a day (at bedtime), # 30 tab(s), Refills(s) 5, [id number] 169, cm, 03/23/24 13:17:00 EST, Height/Length Dosing, 64.9, kg, 03/23/24 13:17:00 EST, Weight Dosing 6. Gastropathy (K31.9: Disease of stomach and duodenum, unspecified) Ordered: amitriptyline, 25 mg = 1 tab(s), Oral, Once a day (at bedtime), # 30 tab(s), Refills(s) 5, Pharmacy: [facility]/pharmacy #[id number], 169, cm, 03/23/24 13:17:00 EST, Height/Length Dosing, 64.9, kg, 03/23/24 13:17:00 EST, Weight Dosing 7. Tetrahydr (more content not included)... Normal [facility] Comment on above: Result Comment: Elec tronically Signed By: Butch SANDOVAL, Sandoval Frost\.br\Date and Time Signed: 03/23/24 13:45 EST Urine Cultureon 03-15-2024 Bacteria identified Cx Nom (U) 50,000 colonies/ml mixed bacterial skin contaminants including mixed gram negative bacilli - 2 Days PERFORMED BY: [place] [address] PATHOLOGIST DIET ATTENDANT HARRIS CUELLAR M.D. Normal [facility] Comment on above: Performed By: #### C UU #### [address] Surgical Pathology Reporton 03-02-2024 [place] [address]- Surgical Pathology Report Collected Date/Time: 02/25/2024 10:41 [...] specimen submitted in one cassette. (YC) [facility] Microscopic Description Microscopic examination performed unless gross [...] EST Butch SANDOVAL, Sandoval Rae MD, Sandoval Frost Microscopic Description performance characteristics were determined by the [facility]. They have not been cleared or approved by the US Food and Drug Administration. The FDA has determined that such clearance or approval is not necessary. These tests are used for clinical purposes. They should not be regarded as investigational or for research. Appropriate positive and negative controls are performed and are acceptable. Normal [facility] Comment on above: Performed By: #### [id number] #### [facility] [address] [place] [id number] Main OR Intraoperative Recor don 02-27-2024 Main OR Intraoperative Record Main OR Intraoperative Record IntraOp Document Type FT Summary Primary Physician: Sandoval Rae MD Finalized Date/Time: 02/27/24 07:51:23 Pt. Name: SAI PINEDA /Sex: 1970 Female Med Rec #: [id number] Physician: Sandoval Rae MD Financial #: [id number] Pt. Type: O Room/Bed: / Admit/Disch: 02/25/24 [...] Case Attendee Evan PENNINGTON, Orlando Rae MD, Sandoval Allen RN, Chucho Calderon Role Performed AUTOMOTIVE TITLE CLERK Surgeon - Primary Teacher Hearing Impaired - Primary Time In 02/25/24 10:32:00 02/25/24 10:32:00 02/25/24 10:32:00 Time Out 02/25/24 10:50:00 02/25/24 10:50:00 02/25/24 10:50:00 Procedure EGD(.) EGD(.) EGD(.) Comments Dr. Rivas supervising case Last Modified By: Chucho Allen RN, RN, Chucho Isaacs RN 02/25/24 10:50:45 02/25/24 10:50:45 02/25/24 10:50:45 Entry [...] Allen RN, Mouchli MD, Sandoval Frost, Roque PUBLIC HEALTH MICROBIOLOGIST, Luis Manuel Jacob Kirstyn K Time Out [...] Yes Le (more content not included)... Normal [facility] Discharge Instructionson Discharge Instructions Discharge Instructions SAI [...] Vomiting Historical (more content not included)... Normal [facility] Comment on above: Result Comment: Elec tronically Signed By: Christin Hensley I\.br\Date and Time Signed: 02/25/24 11:03 EST H&P Updateon 02-25-2024 H&P Update H&P Update Patient: SAI PINEDA Age: 53 years Sex: Female : 1970 Associated Diagnoses: None Author: Sandoval Rae MD Preoperative Information Chief compliant/Indication for procedure: Nausea, vomiting, and epigastric pain Chief Complaint as above Review of Systems All systems reviewed, negative except as mentioned above Physical Examination Vital Signs (last 24 hrs) Last Charted Temp Temporal 36.6 DegC (FEB 24:) Heart Rate Monitored 70 bpm (FEB 24) SBP 130 mmHg (FEB 24:) DBP 75 mmHg (FEB 24:) Weight 62.2 kg (FEB 24:) General: in Nad Abdomen: Soft, NTND Impression and Plan Diagnosis: Nausea, vomiting, and epigastric pain -EGD Normal [facility] Main OR PACU II Recordon Main OR PACU II Record Main OR PACU II Record PACU Phase II Document Type FT Summary Primary Physician: Sandoval Rae MD Finalized Date/Time: 02/25/24 11:30:19 Pt. Name: SAI PINEDA /Sex: 1970 Female Med Rec #: [id number] Physician: Sandoval Rae MD Financial #: [id number] Pt. Type: O Room/Bed: / Admit/Disch: 02/25/24 [...] By: Christin Hensley I 02/25/24 11:30 Normal [facility] Main OR Preoperative Recordo n 02-25-2024 Main OR Preoperative Record Main OR Preoperative Record Holding Area Document Type FT Summary Primary Physician: Sandoval Rae MD Finalized Date/Time: 02/25/24 09:16:52 Pt. Name: SAI PINEDA/Sex: 1970 Female Med Rec #: [id number] Physician: Sandoval Rae MD Financial #: [id number] Pt. Type: O Room/Bed: / Admit/Disch: 02/25/24 [...] By: Mely Montilla RN 02/25/24 09:16 Normal [facility] Operative Reporton Operative Report Operative Report Patient: [...] day(s), # 56 tab(s), Refills(s) 0, [id number] 169, cm, 02/21/24 8:47:00 EST, Height/Length Dosing, 62.2, kg, 02/21/24 8:47:00 EST, Weight Dosing Questran 4 g/9 g oral powder: = 1 packet(s), Oral, BID, # 60 EA, Refills(s) 2, [id number], 169, cm, 01/16/24 10:14:00 EDT, Height/Length Dosing, 63.9, kg, 01/16/24 10:14:00 EDT, Weight Dosing Spiriva Respimat 60 ACT 2.5 mcg/inh inhalation aerosol: = 2 inh, Inhalation, Daily, # 4 gm, Refills(s) 11, [id number], 169.7, cm, 11/26/23 15:32:00 EDT, Height/Length Dosing, 62.1, kg, 11/26/23 15:32:00 EDT, Weight Dosing Zofran 4 mg Tab: 4 mg = 1 tab(s), Oral, q8hr, PRN Nausea, # 10 tab(s), Refills(s) 0, [id number], 173, cm, 04/26/20 13:07:00 EST, Height/Length Dosing, 52.8, kg, 04/26/20 13:07:00 EST, Weight Dosing Zofran ODT 4 mg Tab-Dis: 4 mg = 1 tab(s), Oral, TID, # 15 tab(s), Refills(s) 0, [id number], 172, cm, 09/24/23 13:02:00 EDT, Height/Length Dosing, 61.2, kg, 09/24/23 13:02:00 EDT, Weight Dosing Zofran ODT 8 mg Tab-Dis: 8 mg = 1 tab(s), SubLingual, q8hr, PRN Nausea/Vomiting, # 24 tab(s), Refills(s) 0, [id number], 169, cm, 01/16/24 10:14:00 EDT, Height/Length Dosing, 63.9, kg, 01/16/24 10:14:00 EDT, Weight Dosing cloNIDine 0.2 mg Tab: 0.2 mg = 1 tab(s), Oral, Bedtime, # 30 tab(s), Refills(s) 1, [id number], 173, cm, 05/24/20 14:42:00 EST, Height/Length Dosing, 50.1, kg, 05/24/20 14:42:00 EST, Weight Dosing colestipol 1 g Tab: 2 gm = 2 tab(s), Oral, BID, with a full glass of water, # 120 tab(s), Refills(s) 1, [id number], 169, cm, 01/16/24 10:14:00 EDT, Height/Length Dosing, 63.9, kg, 01/16/24 10:14:00 EDT, Weight Dosing hydrOXYzine hydrochloride 50 mg oral tablet: 50 mg = 1 tab(s), Oral, TID, PRN as needed for anxiety, # 30 tab(s), Refills(s) 0, [id number], 173, cm, 04/26/20 13:07:00 EST, Height/Length Dosing, 52.8, kg, 04/26/20 13:07:00 EST, Weight Dosing lamotrigine 25 mg Tab: See Instructions, TAKE 1 TABLET BY MOUTH EVERY DAY IN THE AFTERNOON, # 30 tab(s), Refills(s) 0, Pharmacy: [facility] [id number], 169.7, cm, 11/26/23 15:32:00 EDT, Height/Length Dosing, 62.1, kg, 11/26/23 15:32:00 EDT, Weight Dosing mirtazapine 7.5 mg oral tablet: 7.5 mg = 1 tab(s), Oral, Bedtime, # 30 tab(s), Refills(s) 0, [id number], 169.7, cm, 10/03/23 9:38:00 EDT, Height/Length Dosing, 62.5, kg, 10/03/23 9:38:00 EDT, Weight Dosing omeprazole 20 mg Cap-DR: See Instructions, TAKE 1 CAPSULE BY MOUTH EVERY DAY, # 30 cap(s), Refills(s) 0, Pharmacy: [facility] [id number], 169, cm, 02/21/24 8:47:00 EST, Height/Length Dosing, 62.2, kg, 02/21/24 8:47:00 EST, Weight Dosing ondansetron 4 mg Dis Tab: 4 mg = 1 tab(s), Oral, q6hr, PRN Nausea/Vomiting, # 30 tab(s), Refills(s) 0, [id number], 169.7, cm, 11/26/23 15:32:00 EDT, Height/Length Dosing, 62.1, kg, 11/26/23 15:32:00 EDT, Weight Dosing ondansetron 8 mg Dis Tab: See Instructions, DISSOLVE 1 TABLET ON THE TONGUE EVERY 8 HOURS NEEDED FOR NAUSEA AND VOMITING, # 24 tab(s), Refills(s) 0, [id number], 169, cm, 02/18/24 11:55:00 EST, Height/Length Dosing, 61.8, kg, 02/18/24 11:55:00 EST, Weight D... promethazine 25 mg Tab: 25 mg = 1 tab(s), Oral, TID, # 15 tab(s), Refills(s) 0, [id number], 169, cm, 01/16/24 10:14:00 EDT, Height/Length Dosing, 63.9, kg, 01/16/24 10:14:00 EDT, Weight Dosing promethazine 25 mg Tab: See Instructions, TAKE 1 TABLET BY MOUTH THREE TIMES A DAY, # 30 tab(s), Refills(s) 1, Pharmacy: [facility]/pharmacy #[id number], 169, cm, 02/18/24 11:55:00 EST, Height/Length Dosing, 61.8, kg, 02/18/24 11:55:00 EST, Weight Dosing Documented Medications Documented Protonix 40 mg Tab-DR: Oral, 0 Refill(s), Refills(s) 0 Spiriva Respimat 10 ACT 2.5 mcg/inh inhalation aerosol: = 2 puff(s), Inhalation, Daily, Refi (more content not included)... Normal [facility] Comment on above: Result Comment: Elec tronically Signed By: Butch SANDOVAL, Sandoval Frost\.br\Date and Time Signed: 02/25/24 10:51 EST Other Comment: Linda mendosa Attachment - attachment storage system not supported [id number] Can be viewed in source systemMissing Attachment - attachment storage system not supported [id number] Can be viewed in source systemMissing Attachment - attachment storage system not supported [id number] Can be viewed in source systemMissing Attachment - attachment storage system not supported [id number] Can be viewed in source systemMissing Attachment - attachment storage system not supported [id number] Can be viewed in source systemMissing Attachment - attachment storage system not supported [id number] Can be viewed in source systemMissing Attachment - attachment storage system not supported [id number] Can be viewed in source systemMissing Attachment - attachment storage system not supported [id number] Can be viewed in source systemMissing Attachment - attachment storage system not supported [id number] Can be viewed in source systemMissing Attachment - attachment storage system not supported [id number] Can be viewed in source system Ambulatory Visit Summaryon 1 04-23-2023 Ambulatory Visit Summary Ambulatory Visit Summary FATUMABJSIA S :1970 Visit Date:02/21/2024 Ambulatory Visit Instructions Your Diagnosis Nausea and vomiting Epigastric pain Chronic diarrhea Gastropathy History of colon polyps Schatzki's ring Your Care Team Attending Physician - Sandoval Rae MD Primary Care Physician - Lala Horner This [...] inhalation aerosol) (more content not included)... Normal [facility] Gastroenterology Office/Clin ic Noteon 02-21-2024 Gastroenterology Office/Clinic [...] to discuss capsule. 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 There was no bleeding at the end of the maneuver. Exam of the jejunum was otherwise normal. Impression: - Atrophic mucosa. - Jejunal polyp(s). Resected a (more content not included)... Normal [facility] Comment on above: Result Comment: Elec [...] Someone Will Contact You Regarding These Appointments [facility] External Ambulatory Referral, Neurology, [facility] office, 02/18/24 [...] NEEDED FOR NAUSEA AND VOMITING Pickup at [facility]/pharmacy #[id number] Unchanged ondansetron (Zofran 4 mg Tab) [...] MOUTH THREE TIMES A DAY Pickup at [facility]/pharmacy #6177 [id number] [address], [place] [phone] Allergies No Known Allergies Problems Ongoing - [...] history of (more content not included)... Normal [facility] Family Medicine Office/Clini c Noteon 02-18-2024 Family Medicine Office/Clinic Note Family Medicine Office/Clinic Note Chief Complaint N&V & Diarrhea HPI Staff Sai is a 53 year old female presenting with diarrhea, vomiting. AMILCAR 11/27/23 pt here for the same reason. Sent home with stool sample supplies. Pt did see [facility] 01/16/24 for diarrhea & N&V. Tx'd w/[facility] did order CTE, however pt no showed [...] neuro consult. her mother has dementia. Ordered: [facility] External Ambulatory Referral 2. Maternal family history of dementia (Z81.8: Family history of other mental and behavioral disorders) mother has dementia Ordered: [facility] External Ambulatory Referral 3. Nausea and vomiting [...] VOMITING, # 24 tab(s), Refills(s) 0, Pharmacy: [facility]/pharmacy #[id number], 169, cm, 02/18/24 11:55:00 EST, Height/Length Dosing, 61.8, kg, 02/18/24 11:55:00 EST, Weight D... promethazine, See Instructions, TAKE 1 TABLET BY MOUTH THREE TIMES A DAY, # 30 tab(s), Refills(s) 1, Pharmacy: [facility]/pharmacy #[id number], 169, cm, 02/18/24 11:55:00 EST, [...] Esophagogastroduodenoscopy (04/19 (more content not included)... Normal [facility] Comment on above: Result Comment: Elec tronically Signed By: Lala Horner\.светлана\Date and Time Signed: 02/18/24 13:38 EST Gastroenterology [...] start: Years ago. Had capsule done at [facility] and surgery. Dr Tiffani Morales. Constant? Or [...] up, and diarrhea capsule endoscopy done at [facility] and was found to have stomach going [...] Oral, TID, (more content not included)... Normal [facility] Comment on above: Result Comment: Elec [...] to get in, will send referral to [facility] 2. Vomiting (R11.10: Vomiting, unspecified) pt is asking for refill on omeprazole 3. Smoker (F17.200: Nicotine dependence, unspecified, uncomplicated) consider not smoking 4. BMI 21.0-21.9, adult (Z68.21: Body mass index [BMI] 21.0-21.9, adult) BMI education given Orders: lamotrigine, See Instructions, TAKE 1 TABLET BY MOUTH EVERY DAY IN THE AFTERNOON, # 30 tab(s), Refills(s) 0, [id number], 169.7, cm, 10/03/23 9:38:00 EDT, Height/Length Dosing, 62.5, kg, 10/03/23 9:38:00 EDT, Weight Dosing lamotrigine, See Instructions, TAKE 1 TABLET EVERY MORNING, # 30 tab(s), Refills(s) 0, [id number] 169.7, cm, 10/03/23 9:38:00 EDT, Height/Length Dosing, 62.5, kg, 10/03/23 9:38:00 EDT, Weight Dosing lamotrigine, See Instructions, TAKE 1 TABLET BY MOUTH EVERY DAY IN THE AFTERNOON, # 30 tab(s), Refills(s) 0, Pharmacy: [facility] [address], 169.7, cm, 11/26/23 15:32:00 EDT, Height/Length Dosing, 62.1, kg, 11/26/23 15:32:00 EDT, Weight Dosing nitrofurantoin, 100 mg = 1 cap(s), Oral, BID, X 7 day(s), # 14 cap(s), Refills(s) 0, [id number], 169.7, cm, 11/26/23 15:32:00 EDT, Height/Length Dosing, 62.1, kg, 11/26/23 15:32:00 EDT, Weight Dosing omeprazole, 20 mg = 1 cap(s), Oral, Daily, # 30 cap(s), Refills(s) 0, Pharmacy: [facility]/pharmacy #6177, 169.7, cm, 10/03/23 9:38:00 EDT, Height/Length Dosing, 62.5, kg, 10/03/23 9:38:00 EDT, Weight Dosing omeprazole, See Instructions, TAKE 1 CAPSULE BY MOUTH EVERY DAY, # 30 cap(s), Refills(s) 0, Pharmacy: [facility], 169.7, cm, 11/26/23 15:32:00 EDT, Height/Length Dosing, 62.1, kg, 11/26/23 15:32:00 EDT, Weight Dosing tiotropium, = 2 inh, Inhalation, Daily, # 4 gm, Refills(s) 11, [id number], 169.7, cm, 11/26/23 15:32:00 EDT, [...] tab(s), Or (more content not included)... Normal [facility] Comment on above: Result Comment: Elec [...] hours as needed for Nausea/Vomiting Pickup at [facility]/pharmacy #[id number] Unchanged ondansetron (Zofran 4 mg Tab) [...] 2 Puffs Inhalation Every day Pharmacy Information [facility]/pharmacy #[id number]: [address], [place] [phone] Allergies No Known Allergies Problems Ongoing - [...] you for choosing us for your care. [facility] ED Note-Physicianon 10-21-19 ED Note-Physician ED Note-Physician [...] NS 1000 ml Bolus, 1000 mL, IV [id number] [F] 25 mg + Sodium Chloride 0.9% [...] CHANCE SERRANO In 3 days 09/27/[address] [place] [phone] [phone] Mendor (1) Additional Instructions: Patient Education Urinary Tract [...] made to ensure accuracy, however, inadvertently computerized sas developer analyst mistakes may be present. Appropriate healthcare [...] to inadequa (more content not included)... Normal [facility] Comment on above: Result Comment: Elec tronically Signed By: Juan PAIGE, Vj\.br\Date and Time Signed: 10/21/23 07:39 EDT\.br\Electronically Co-Signed By: José Luis Resendiz DO\.светлана\Date and Time Co-Signed: 10/21/23 19:15 EDT Family [...] visit: month or so ago Last provider: [facility] Any recent labs: IN ER 09/23 Health Maintenance UTD: Colonoscopy: several Mammogram: due [...] acel/tetanus adult 10/11/19 (more content not included)... [facility] Comment on above: Result Comment: Elec tronically Signed By: Carolee ANTONY, Lala Ch\.br\Date and Time Signed: 10/03/23 10:12 EDT C [...] Locations R1: [facility] performed at[facility] [address] [place] [address], [phone] , , [facility] Comment on above: Performed By: #### 2 [id number] ####[facility] [id number] [place] [address] CHEMISTRYOrdered By: SYSTEM SYSTEM on 09-24-2023 Albumin [...] that meet specific criteria set forth by [facility]. Epithelial cells.squamous Auto (Urine sed) [#/Area] 0-2 graded/HPF Invalid Interpretation Code FT UA Auto SS Glucose Ql (U) Negative Normal Negativemg/ dL FT UA Auto SS Hemoglobin Auto test strip (U) [Mass/Vol] 1+ mg/dL Invalid Interpretation Code Negativemg/ dL FT UA Auto SS Ketones Auto test strip [...] UA Auto SS Work Phone: Zi 05-08-2022 [facility] Telephone (GASTA5) SAI PINEDA ([id number]) 1970 F Date Time Provider Department 05/08/22 TIFFANI MORALES GASTA5 During your visit today, we recorded the following information about you: Eva Chong 05/08/2022 10:45 AM Signed 05/08/22 Patient calling to see if Dr Morales will write her a script for Zofran nausea medication strips. [facility] Pharmacy in [place] [phone] Eva Covarrubias, HERNÁN 05/11/2022 10:05 AM Signed Called pt and let her know Dr. Morales said if med helping her symptoms, she was fine to re-order and she did. Pt said it has been helping very much. Has follow up appt scheduled in mid May but reviewed with something changes to let MD know. Magda Covarrubias, RN Allergies As of Date: 05/08/2022 (No Known Allergies) Date Reviewed: 04/04/2022 Reviewed by: Eduardo Harrington RN - Fully Assessed Reason for Visit: Patient Question [1767] Order(s):ondansetron orally disintegrating (ZOFRAN ODT) 8 mg [...] Status:Closed by TIFFANI MORALES on 05/10/22 Normal [facility] COPPER, SERUM or PLASMAon Copper, Serum 129 ug/dL Normal 80-158 [facility] Comment on above: Result Comment: Dete ction Limit = 5 Performed By: #### C OPPER #### [facility] [address] [address] [address] Prince Olivas FATTY ACID PROFILEon 023 a-Linolenic Acid C18:3w3 81 nmol/mL Normal 20-200 [facility] Comment on above: Performed By: #### M MA2 #### [facility] [address] [address] [address] Prince Olivas Arachidic Acid C20:0 31 nmol/mL Normal 8-43 [facility] Comment on above: Performed By: #### Marine MA2 #### [facility] [address] [address] [address] Prince Olivas Arachidonic Acid, C20:4w6 943 nmol/mL Normal 310-1420 [facility] Comment on above: Performed By: #### Marine MA2 #### [facility] [address] [address] [address] Prince Olivas DHA, C22:6w3 85 nmol/mL Normal 45-365 [facility] Comment on above: Performed By: #### M MA2 #### [facility] [address] [address] [address] Prince Olivas Docosenoic Acid C22:1 5 nmol/mL Normal 1-10 [facility] Comment on above: Performed By: #### M MA2 #### [facility] [address] [address] [address] Prince Olivas DPA, C22:5w3 58 nmol/mL Normal 13-75 [facility] Comment on above: Performed By: #### M MA2 #### [facility] [address] [address] [address] Prince Olivas DPA, C22:5w6 18 nmol/mL Normal 6-55 [facility] Comment on above: Performed By: #### Marine CAMPBELL2 #### [facility] [address] [address] [address] Prince Olivas DTA, C22:4w6 28 nmol/mL Normal 10-40 [facility] Comment on above: Performed By: #### Marine CAMPBELL2 #### [facility] [address] [place] [address] Dr. Prince Olivas EER Fatty Acid Profile, [facility] See Note Normal [facility] Comment on above: Result Comment: Auth orized individuals can access the [facility] Enhanced Report using the following link: [email or web address] Performed By: #### Marine CAMPBELL2 #### [facility] [address] [place] [address] Dr. Prince Olivas EPA, C20:5w3 90 nmol/mL Normal 8-130 [facility] Comment on above: Performed By: #### Marine CAMPBELL2 #### [facility] [address] [place] [address] Dr. Prince Olivas g-Linolenic Acid C18:3w6 139 nmol/mL Critically high 10-120 [facility] Comment on above: Performed By: #### Marine CAMPBELL2 #### [facility] [address] [address] [address] Prince Olivas w-o-Qogzammlw Acid C20:3w6 211 nmol/mL Normal 45-340 [facility] Comment on above: Performed By: #### Marine CAMPBELL2 #### [facility] [address] [place] [address] Dr. Prince Olivas Hexadecenoic Acid C16:1w9 56 nmol/mL Normal 14-95 [facility] Comment on above: Performed By: #### Marine CAMPBELL2 #### [facility] [address] [place] [address] Dr. Prince Olivas Image . Normal [facility] Comment on above: Performed By: #### M MA2 #### [facility] [address] [address] [address] Prince Onealp, Fatty Acids Profile SP See Note Normal [facility] Comment on above: Result Comment: Incr eased concentration of omega-6 gamma- linolenic acid, possibly reflecting dietary artifacts. INTERPRETIVE INFORMATION: Fatty Acids Profile, Essential Ser/Plas This test does not screen for disorders of peroxisomal biogenesis/function. This test was developed and its performance characteristics determined by [employer]. It has not been cleared or approved by the [place] Food and Drug Administration. This test was performed in a CLIA certified laboratory and is intended for clinical purposes. Performed By: #### Marine MA2 #### [facility] [address] [place] [address] Dr. Prince Olivas Lauric Acid C12:0 12 nmol/mL Normal 1-200 [facility] [facility] Comment on above: Performed By: #### Marine MA2 #### [facility] [address] [place] [address] Dr. Prince Olivas Linoleic Acid C18:2w6 3844 nmol/mL Normal 0511-5167 [facility] Comment on above: Performed By: #### Marine MA2 #### [facility] [address] [address] [address] Prince Olivas Augusta Acid C20:3w9 29 nmol/mL Normal 1-35 [facility] Comment on above: Performed By: #### Marine MA2 #### [facility] [address] [address] [address] Prince Olivas Myristic Acid C14:0 178 nmol/mL Normal 20-520 [facility] Comment on above: Performed By: #### Marine MA2 #### [facility] [address] [place] [address] Dr. Prince Olivas Nervonic Acid C24:1w9 138 nmol/mL Normal 35-145 [facility] Comment on above: Performed By: #### Marine MA2 #### [facility] [address] [place] [address] Dr. Prince Olivas Oleic Acid C18:1w9 2898 nmol/mL Normal 740-3900 [facility] Comment on above: Performed By: #### M MA2 #### [facility] [address] [address] [address] Prince Olivas Palmitic Acid C16:0 3316 nmol/mL Normal 7933-9827 [facility] Comment on above: Performed By: #### M MA2 #### [facility] [address] [address] [address] Prince Olivas Palmitoleic Acid C16:1w7 355 nmol/mL Normal 35-580 [facility] Comment on above: Performed By: #### M MA2 #### [facility] [address] [address] [address] Prince Olivas Stearic Acid C18:0 1072 nmol/mL Normal 280-1250 [facility] Comment on above: Performed By: #### M MA2 #### [facility] [address] [address] [address] Prince Olivas Total Fatty Acids 13.7 mmol/L Normal 4.5-15.0 [facility] Comment on above: Performed By: #### M MA2 #### [facility] [address] [address] [address] Prince Olivas Total Monounsaturated Acid 3.6 mmol/L Normal 0.9-4.7 [facility] Comment on above: Performed By: #### M MA2 #### [facility] [address] [address] [address] Prince Olivas Total Polyunsaturated Acid 5.5 mmol/L Normal 2.1-6.2 [facility] Comment on above: Performed By: #### M MA2 #### [facility] [address] [address] [address] Prince Olivas Total Saturated Acid 4.6 mmol/L Normal 1.5-5.3 [facility] Comment on above: Performed By: #### M MA2 #### [facility] [address] [address] [address] Prince Olivas Total w3 0.31 mmol/L Normal 0.12-0.55 [facility] Comment on above: Performed By: #### M MA2 #### [facility] [address] [address] [address] Prince Olivas Total w6 5.2 mmol/L Normal 1.8-5.7 [facility] Comment on above: Performed By: #### M MA2 #### [facility] [address] [address] [address] Prince Olivas Triene Tetraene Ratio 0.031 Normal 0.004-0.051 [facility] Comment on above: Performed By: #### M MA2 #### [facility] [address] [address] [address] Prince Olivas Vaccenic Acid C18:1w7 149 nmol/mL Normal 50-250 [facility] Comment on above: Performed By: #### M MA2 #### [facility] [address] [address] [address] Prince Olivas VITAMIN Aon 04-06-2022 Vitamin A 54.9 ug/dL Normal 20.1-62.0 [facility] Comment on above: Result Comment: Refe [...] Administration. Performed By: #### M MA2 #### [facility] [address] [address] [address] Prince Olivas VITAMIN Luciano 04-06-2022 Vitamin E (Alpha T) 9.9 mg/L Normal 7.0-25.1 [facility] Comment on above: Performed By: #### Domo HOLLAND #### [facility] [address] [address] [address] Prince Olivas Vitamin E (Gamma T) 2.1 mg/L Normal 0.5-5.5 [facility] Comment on above: Result Comment: Refe rence intervals for alpha and gamma- tocopherol determined from National Health and Nutrition Examination Survey, 6413-9072. Individuals with alpha-tocopherol levels less than 5.0 mg/L are considered vitamin E deficient. Performed By: #### S ELNIUM #### [facility] [address] [place] [address] Dr. Prince Olivas ZINC SERUM OR PLASMAon 04-06 Zinc, Plasma or Serum 75 ug/dL Normal 44-115 [facility] Comment on above: Result Comment: Dete ction Limit = 5 Performed By: #### L IPID, CMP #### [facility] [id number] Prince Olivas CNPNon 04-05-2022 CNPN Telephone (GASTA5) SAI PINEDA ([id number]) 1970 F Date Time Provider Department 04/05/22 TIFFANI MORALES GASTA5 During your visit today, we recorded the following information about you: Eva Torres 04/05/2022 9:31 AM Signed 04/05/22 Patient wants [...] Status:Closed by TIFFANI MORALES on 04/05/22 Normal [facility] METHYLMALONIC ACID (MMA)on 0 04-05-2022 Methylmalonic Acid, Serum 498 nmol/L Critically high 0-378 [facility] Comment on above: Performed By: #### M MA2 #### [facility] [address] [place] [address] Dr. Prince Olivas ANES POSTPROC EVALon 023 ANES POSTPROC EVAL HNO ID: [id number] Author: Altagracia Salvador MD Service: ? Author [...] Morales MD; Altagracia Salvador MD; Frederick Chaves APRN.AUTOMOTIVE TITLE CLERK Responsible Provider: Altagracia Salvador MD Anesthesia Type: [...] with this procedure. Documented by Frederick Chaves APRN.AUTOMOTIVE TITLE CLERK 04/04/2022 3:31 PM EST SIGNATURE: Altagracia Salvador MD PATIENT NAME: Sai Pineda DATE: April 04, 2022 TIME: 3:51 PM CSN: [id number] Normal [facility] ANES PRE-OPon 04-04-2022 ANES PRE-OP HNO ID: [id number] Author: Altagracia Salvador MD Service: ? Author Type: Anesthesiologist Type: Anesthesia Preprocedure Evaluation Filed: 04/04/2022 12:56 PM Note Text: ANESTHESIOLOGY DAY OF SURGERY NOTE : 1970 Procedure Information Date/Time: 04/04/22 1300 Scheduled providers: Tiffani Morales MD; Altagracia Salvador MD; Frederick Chaves APRN.AUTOMOTIVE TITLE CLERK Procedure: ENTEROSCOPY Location: Gastroenterology Estimated body mass [...] and consent discussed: yes. Patient / Responsible Democrat agrees to proceed: yes Patient / Surrogate [...] April 04, 2022 TIME: 12:55 PM CSN: [id number] Normal [facility] ENTEROSCOPYon 04-04-2022 [facility] HISTORY PHYSICALon 3 HISTORY PHYSICAL HNO ID: [id number] Author: Tiffani Morales MD Service: Gastroenterology Author [...] Sai Pineda DATE: 04/04/2022 TIME: 1302 Normal [facility] METHYLMALONIC ACID (MMA)on 0 04-04-2022 Methylmalonic Acid, Serum 397 nmol/L Critically high 0-378 [facility] Comment on above: Performed By: #### M MA2 #### [facility] [address] [address] [address] Prince Olivas NURSING PROGon 04-04-2022 NURSING PROG HNO ID: [id number] Author: Eduardo Harrington RN Service: Nursing Author [...] Electronically Signed By: Eduardo Harrington RN Normal [facility] NURSING PROG HNO ID: [id number] Author: Rima Kirk RN Service: Nursing Author [...] Rima Kirk RN In Department: GASTROENTEROLOGY Normal [facility] SELENIUM, PLASMAon 3 Selenium, Serum/Plasma 124 ug/L Normal 93-198 [facility] Comment on above: Performed By: #### S ELNIUM #### [facility] [address] [place] [address] Dr. Prince Olivas SURGICAL PATHOLOGYon 023 CASE REPORT Normal [facility] Comment on above: Order Comment: Speci men Type: TISSUE SPECIMENOrdering Facility: [facility] Address: [address] [place] [address] Result Comment: Surg ical Pathology Report Case: [id number] Authorizing Provider: Tiffani Morales MD Collected: 04/04/2022 02:57 PM Ordering Location: Gastroenterology Received: 04/04/2022 05:34 PM Pathologist: Gonzalo Lemons MD Specimen: JEJUNUM BIOPSY, polyp: r/o adenoma Performed By: #### S ####[facility] LABCLIA [id number] FINAL DIAGNOSIS Normal [facility] Comment on above: Order Comment: Speci men Type: TISSUE SPECIMENOrdering Facility: [facility] Address: [address] [place] [address] Result Comment: Santosh Saleh ejunum, polyp, biopsy: - Small intestine with gastric heterotopia. - Negative for dysplasia and malignancy. Performed By: #### S ####[facility] LABCLIA [id number] [place] [address] [place] FINAL PERFORMING LAB Normal [facility] Comment on above: Order Comment: Speci men Type: TISSUE SPECIMENOrdering Facility: [facility] Address: [address] [address] Result Comment: Diag nostic interpretation performed at [facility], [address] [place] [address] CLIA# [id number] Net Wpf Developer: Constantin Quevedo M.D. Performed By: #### S ####[facility] LABCLIA [id number] [address] [place] GROSS DESCRIPTION Normal [facility] Comment on above: Order Comment: Speci men Type: TISSUE SPECIMENOrdering Facility: [facility] Address: [address] [place] [address] Result Comment: A. J EJUNUM BIOPSY Received in formalin is a segment of proctor polypoid tissue measuring 1.2 x 1.0 x 0.4 cm. No stalk is noted. The line of resection is noted. The specimen is bisected and totally submitted in formalin in one cassette. Gross examination performed at [facility], [address] [place] [address] 04/04/2022 10:13 PM Performed By: #### S ####[facility] [id number] [place] [address] [place] FOLATE, RBC AND SERUMon 03-18 Folate 7.5 ng/mL Normal >3.0 [facility] Comment on above: Result Comment: A se rum folate concentration of less than 3.1 ng/mL is considered to represent clinical deficiency. Performed By: #### L IPID, CMP #### [facility] [address] [address] [address] Prince Olivas Folate, Hemolysate 297.0 ng/mL Normal Not Estab. [facility] Comment on above: Performed By: #### L IPID, CMP #### [facility] [address] [address] [address] Prince Olivas Folate, RBC 721 ng/mL Normal >498 [facility] Comment on above: Performed By: #### L IPID, CMP #### [facility] [address] [address] [address] Prince Olivas Hematocrit (Bld) [Volume fraction] 41.2 % Normal 34.0-46.6 [facility] Comment on above: Performed By: #### L IPID, CMP #### [facility] [address] [address] [address] Prince Olivas CBC AUTO DIFFon 03-31-2022 BASO # 0.1 103/ul Normal 0.0-0.1 [facility] Comment on above: Performed By: #### L IPID, CMP #### [facility] [address] [place] [address] Dr. Prince Olivas Basophils/100 WBC (Bld) 0.6 % Normal 0.2-2.0 [facility] Comment on above: Performed By: #### L IPID, CMP #### [facility] [address] [place] [address] Dr. Prince Olivas EO # 0.2 103/ul Normal 0.0-0.7 [facility] Comment on above: Performed By: #### L IPID, CMP #### [facility] [address] [place] [address] Dr. Prince Olivas Eosinophils/100 WBC (Bld) 2.9 % Normal 0.9-7.0 [facility] Comment on above: Performed By: #### L IPID, CMP #### [facility] [address] [address] [address] Prince Olivas Erythrocyte distribution width (RBC) [Ratio] 13.2 % Normal 11.0-15.0 [facility] Comment on above: Performed By: #### L IPID, CMP #### [facility] [address] [place] [address] Dr. Prince Olivas Hematocrit (Bld) [Volume fraction] 41.1 % Normal 36.0-48.0 [facility] Comment on above: Performed By: #### L IPID, CMP #### [facility] [address] [place] [address] Dr. Prince Olivas Hemoglobin (Bld) [Mass/Vol] 13.6 g/dL Normal 12.0-16.0 [facility] Comment on above: Performed By: #### L IPID, CMP #### [facility] [address] [place] [address] Dr. Prince Olivas IG # 0.04 10e3/ul Critically high 0.00-0.03 [facility] Comment on above: Performed By: #### L IPID, CMP #### [facility] [address] [place] [address] Dr. Prince Olivas IG % 0.5 % Normal 0.0-0.5 [facility] Comment on above: Performed By: #### L IPID, CMP #### [facility] [address] [place] [address] Dr. Prince Olivas LYMPH # 2.5 103/ul Normal 1.2-3.8 [facility] Comment on above: Performed By: #### L IPID, CMP #### [facility] [address] [place] [address] Dr. Prince Olivas Lymphocytes/100 WBC (Bld) 31.5 % Normal 20.5-60.0 [facility] Comment on above: Performed By: #### L IPID, CMP #### [facility] [address] [place] [address] Dr. Prince Olivas MANUAL DIFF REQ NO Normal [facility] Comment on above: Performed By: #### L IPID, CMP #### [facility] [address] [place] [address] Dr. Prince Olivas MCH (RBC) [Entitic mass] 30.5 pg Normal 26.7-34.0 [facility] Comment on above: Performed By: #### L IPID, CMP #### [facility] [address] [place] [address] Dr. Prince Olivas MCHC (RBC) [Mass/Vol] 33.1 g/dL Normal 29.9-35.2 [facility] Comment on above: Performed By: #### L IPID, CMP #### [facility] [address] [place] [address] Dr. Prince Olivas MCV (RBC) [Entitic vol] 92.2 fL Normal 81.0-99.0 [facility] Comment on above: Performed By: #### L IPID, CMP #### [facility] [address] [place] [address] Dr. Prince Olivas MONO # 0.6 103/ul Normal 0.3-0.8 [facility] Comment on above: Performed By: #### L IPID, CMP #### [facility] [address] [place] [address] Dr. Prince Olivas Monocytes/100 WBC (Bld) 7.0 % Normal 1.7-12.0 [facility] Comment on above: Performed By: #### L IPID, CMP #### [facility] [address] [place] [address] Dr. Prince Olivas NEUT # 4.5 103/ul Normal 1.4-6.5 [facility] Comment on above: Performed By: #### L IPID, CMP #### [facility] [address] [place] [address] Dr. Prince Olivas Neutrophils/100 WBC (Bld) 57.5 % Normal 43.0-75.0 [facility] Comment on above: Performed By: #### L IPID, CMP #### [facility] [address] [place] [address] Dr. Prince Olivas Platelet mean volume (Bld) [Entitic vol] 11.5 fL Normal 9.5-13.5 [facility] Comment on above: Performed By: #### L IPID, CMP #### [facility] [address] [place] [address] Dr. Prince Olivas PLT 224 103/ul Normal 150-450 [facility] Comment on above: Performed By: #### L IPID, CMP #### [facility] [address] [place] [address] Dr. Prince Olivas RBC 4.46 106/ul Normal 4.20-5.40 [facility] Comment on above: Performed By: #### L IPID, CMP #### [facility] [address] [place] [address] Dr. Prince Olivas WBC 7.9 103/ul Normal 4.0-11.0 [facility] Comment on above: Performed By: #### L IPID, CMP #### [facility] [address] [place] [address] Dr. Prince Olivas CRPon 03-31-2022 CRP [Mass/Vol] mg/L Normal <=1.0 [facility] Comment on above: Performed By: #### C OPPER #### [facility] [address] [place] [address] Dr. Prince Olivas FERRITINon 03-31-2022 Ferritin [Mass/Vol] 99.0 ng/mL Normal 8.0-252.0 [facility] Comment on above: Performed By: #### F ERR, VITB12, VITAD, FETIBC #### [facility] [address] [place] [address] Dr. Prince Olivas IRON AND TIBCon 03-31-2022 % SATURATION 29.3 % Normal [facility] Comment on above: Performed By: #### F ERR, VITB12, VITAD, FETIBC #### [facility] [address] [place] [address] Dr. Prince Olivas Iron [Mass/Vol] 90.0 ug/dL Normal 50.0-170.0 [facility] Comment on above: Performed By: #### F ERR, VITB12, VITAD, FETIBC #### [facility] [address] [place] [address] Dr. Prince Olivas TIBC DIRECT 307.0 ug/dL Normal 250.0-450.0 [facility] Comment on above: Performed By: #### F ERR, VITB12, VITAD, FETIBC #### [facility] [address] [place] [address] Dr. Prince Olivas MAGNESIUMon 03-31-2022 Magnesium [Mass/Vol] 2.0 mg/dL Normal 1.8-2.4 [facility] Comment on above: Performed By: #### C OPPER #### [facility] [address] [place] [address] Dr. Prince Olivas PHOSPHORUSon 03-31-2022 Phosphate [Mass/Vol] 3.6 mg/dL Normal 2.6-4.7 [facility] Comment on above: Performed By: #### C OPPER #### [facility] [address] [place] [address] Dr. Prince Olivas PROF 14(COMP METB)on 023 Albumin [Mass/Vol] 3.9 g/dL Normal 3.4-5.0 [facility] Comment on above: Performed By: #### C OPPER #### [facility] [address] [place] [address] Dr. Prince Olivas Albumin/Globulin [Mass ratio] 1.3 {ratio} Normal [facility] Comment on above: Performed By: #### C OPPER #### [facility] [address] [place] [address] Dr. Prince Olivas ALP [Catalytic activity/Vol] 75 U/L Normal 46-116 [facility] Comment on above: Performed By: #### C OPPER #### [facility] [address] [place] [address] Dr. Prince Olivas ALT [Catalytic activity/Vol] 19 U/L Normal 14-59 [facility] Comment on above: Performed By: #### C OPPER #### [facility] [address] [place] [address] Dr. Prince Olivas Anion gap [Moles/Vol] 11.3 mmol/L Normal [facility] Comment on above: Performed By: #### C OPPER #### [facility] [address] [place] [address] Dr. Prince Olivas AST [Catalytic activity/Vol] 19 U/L Normal 15-37 [facility] Comment on above: Performed By: #### C OPPER #### [facility] [address] [address] [address] Prince Olivas Bilirubin [Mass/Vol] 0.3 mg/dL Normal 0.2-1.0 [facility] Comment on above: Performed By: #### C OPPER #### [facility] [address] [place] [address] Dr. Prince Olivas Calcium [Mass/Vol] 9.0 mg/dL Normal 8.5-10.1 [facility] Comment on above: Performed By: #### C OPPER #### [facility] [address] [place] [address] Dr. Prince Olivas Chloride [Moles/Vol] 105 mmol/L Normal 98-107 [facility] Comment on above: Performed By: #### C OPPER #### [facility] [address] [place] [address] Dr. Prince Olivas CO2 [Moles/Vol] 28.9 mmol/L Normal 21.0-32.0 [facility] Comment on above: Performed By: #### C OPPER #### [facility] [address] [place] [address] Dr. Prince Olivas Creatinine [Mass/Vol] 0.79 mg/dL Normal 0.55-1.02 [facility] Comment on above: Performed By: #### C OPPER #### [facility] [address] [place] [address] Dr. Prince Olivas EGFR-AF UKRAINIAN >60 Normal >=60 [facility] Comment on above: Performed By: #### C OPPER #### [facility] [address] [place] [address] Dr. Prince Olivas EGFR-NON AF UKRAINIAN >60 Normal >=60 [facility] Comment on above: Performed By: #### C OPPER #### [facility] [address] [place] [address] Dr. rPince Olivas Globulin (S) [Mass/Vol] 3.0 g/dL Normal [facility] Comment on above: Performed By: #### C OPPER #### [facility] [address] [place] [address] Dr. Prince Olivas Glucose [Mass/Vol] 91 mg/dL Normal 74-106 [facility] Comment on above: Performed By: #### C OPPER #### [facility] [address] [address] [address] Prince Olivas Potassium [Moles/Vol] 4.2 mmol/L Normal 3.5-5.1 [facility] Comment on above: Performed By: #### C OPPER #### [facility] [address] [address] [address] Prince Olivas Protein [Mass/Vol] 6.9 g/dL Normal 6.4-8.2 [facility] Comment on above: Performed By: #### C OPPER #### [facility] [address] [place] [address] Dr. Prince Olivas Sodium [Moles/Vol] 141 mmol/L Normal 136-145 [facility] Comment on above: Performed By: #### C OPPER #### [facility] [address] [place] [address] Dr. Prince Olivas Urea nitrogen [Mass/Vol] 10.0 mg/dL Normal 7.0-18.0 [facility] Comment on above: Performed By: #### C OPPER #### [facility] [address] [place] [address] Dr. Prince Olivas Urea nitrogen/Creatinine [Mass ratio] 12.7 mg/mg Normal [facility] Comment on above: Performed By: #### C OPPER #### [facility] [address] [place] [address] Dr. Prince Olivas PROTIMEon 03-31-2022 INR Coag (PPP) [Relative time] 0.94 {INR} Normal [facility] Comment on above: Performed By: #### M MA2 #### [facility] [address] [place] [address] Dr. Prince Olivas INR GUIDELINES SEE BELOW Normal [facility] Comment on above: Result Comment: BRIANNA RED INR: 2.0 - 3.0 CONDITIONS NOT LISTED BELOW 2.5 - 3.5 FOR PROSTHETIC HEART VALVE REPLACEMENT 2.5 - 3.5 RECURRENT THROMBOSIS Performed By: #### M MA2 #### [facility] [address] [place] [address] Dr. Prince Olivas PT Coag (PPP) [Time] 10.0 s Normal 9.0-11.6 [facility] Comment on above: Performed By: #### M MA2 #### [facility] [address] [place] [address] Dr. Prince Olivas TRIGLYCERIDEon 03-31-2022 Triglyceride [Mass/Vol] 103 mg/dL Normal <=150 [facility] Comment on above: Performed By: #### C OPPER #### [facility] [address] [place] [address] Dr. Prince Olivas VITAMIN B12on 03-31-2022 Cobalamin (Vitamin B12) [Mass/Vol] 259.0 pg/mL Normal 193.0-986.0 [facility] Comment on above: Performed By: #### F ERR, VITB12, VITAD, FETIBC #### [facility] [address] [place] [address] Dr. Prince Olivas VITAMIN D 25 OHon 03-31-2022 VIT D 25-OH 49.0 ng/mL Normal [facility] Comment on above: Performed By: #### F ERR, VITB12, VITAD, FETIBC #### [facility] [address] [place] [address] Dr. Prince Olivas VIT D RANGES SEE BELOW Normal [facility] Comment on above: Result Comment: <20 ng/mL Vit D deficient 20 - <30 ng/mL Vit D insufficient 30 - 100 ng/mL Vit D sufficient >100 ng/mL Potential Toxicity Performed By: #### F ERR, VITB12, VITAD, FETIBC #### [facility] [address] [place] [address] Dr. Prince Olivas CBC AUTO DIFFon 03-28-2022 BASO # 0.1 103/ul Normal 0.0-0.1 [facility] Comment on above: Performed By: #### S ELNIUM #### [facility] [address] [place] [address] Dr. Prince Olivas Basophils/100 WBC (Bld) 0.6 % Normal 0.2-2.0 [facility] Comment on above: Performed By: #### S ELNIUM #### [facility] [address] [place] [address] Dr. Prince Olivas EO # 0.2 103/ul Normal 0.0-0.7 [facility] Comment on above: Performed By: #### S ELNIUM #### [facility] [address] [place] [address] Dr. Prince Olivas Eosinophils/100 WBC (Bld) 2.4 % Normal 0.9-7.0 [facility] Comment on above: Performed By: #### S ELNIUM #### [facility] [address] [place] [address] Dr. rPince Olivas Erythrocyte distribution width (RBC) [Ratio] 13.2 % Normal 11.0-15.0 [facility] Comment on above: Performed By: #### S ELNIUM #### [facility] [address] [place] [address] Dr. Prince Olivas Hematocrit (Bld) [Volume fraction] 44.3 % Normal 36.0-48.0 [facility] Comment on above: Performed By: #### S ELNIUM #### [facility] [address] [place] [address] Dr. Prince Olivas Hemoglobin (Bld) [Mass/Vol] 13.8 g/dL Normal 12.0-16.0 [facility] Comment on above: Performed By: #### S ELNIUM #### [facility] [address] [place] [address] Dr. Prince Olivas IG # 0.02 10e3/ul Normal 0.00-0.03 [facility] Comment on above: Performed By: #### S ELNIUM #### [facility] [address] [place] [address] Dr. Prince Olivas IG % 0.2 % Normal 0.0-0.5 [facility] Comment on above: Performed By: #### S ELNIUM #### [facility] [address] [place] [address] Dr. Prince Olivas LYMPH # 3.1 103/ul Normal 1.2-3.8 [facility] Comment on above: Performed By: #### S ELNIUM #### [facility] [address] [place] [address] Dr. Prince Olivas Lymphocytes/100 WBC (Bld) 34.8 % Normal 20.5-60.0 [facility] Comment on above: Performed By: #### S ELNIUM #### [facility] [address] [place] [address] Dr. Prince Olivas MANUAL DIFF REQ NO Normal [facility] Comment on above: Performed By: #### S ELNIUM #### [facility] [address] [place] [address] Dr. Prince Olivas MCH (RBC) [Entitic mass] 30.5 pg Normal 26.7-34.0 [facility] Comment on above: Performed By: #### S ELNIUM #### [facility] [address] [place] [address] Dr. Prince Olivas MCHC (RBC) [Mass/Vol] 31.2 g/dL Normal 29.9-35.2 [facility] Comment on above: Performed By: #### S ELNIUM #### [facility] [address] [place] [address] Dr. Prince Olivas MCV (RBC) [Entitic vol] 98.0 fL Normal 81.0-99.0 [facility] Comment on above: Performed By: #### S ELNIUM #### [facility] [address] [place] [address] Dr. Prince Olivas MONO # 0.5 103/ul Normal 0.3-0.8 [facility] Comment on above: Performed By: #### S ELNIUM #### [facility] [address] [place] [address] Dr. Prince Olivas Monocytes/100 WBC (Bld) 6.0 % Normal 1.7-12.0 [facility] Comment on above: Performed By: #### S ELNIUM #### [facility] [address] [place] [address] Dr. Prince Olivas NEUT # 5.0 103/ul Normal 1.4-6.5 [facility] Comment on above: Performed By: #### S ELNIUM #### [facility] [address] [address] [address] Prince Olivas Neutrophils/100 WBC (Bld) 56.0 % Normal 43.0-75.0 [facility] Comment on above: Performed By: #### S ELNIUM #### [facility] [address] [address] [address] Prince Olivas Platelet mean volume (Bld) [Entitic vol] 11.5 fL Normal 9.5-13.5 [facility] Comment on above: Performed By: #### S ELVETOUM #### [facility] [address] [place] [address] Dr. Prince Olivas PLT 221 103/ul Normal 150-450 [facility] Comment on above: Performed By: #### S ELNIUM #### [facility] [address] [place] [address] Dr. Prince Olivas RBC 4.52 106/ul Normal 4.20-5.40 [facility] Comment on above: Performed By: #### S ELNIUM #### [facility] [address] [place] [address] Dr. Prince Olivas WBC 8.9 103/ul Normal 4.0-11.0 [facility] Comment on above: Performed By: #### S ELNIUM #### [facility] [address] [address] [address] Prince Pinon 03-28-2022 KISHANN Telephone (JAMIE) SAI PINEDA ([id number]) 1970 F Date Time Provider Department 03/28/22 EDUARDO HARRINGTON GASTRIC During your visit today, we recorded the following information about you: Eduardo Harrington RN 03/28/2022 3:52 PM Signed Attempted to reach the patient at the contact number that they provided [phone] (home) . Unable to speak with patient so without identifying the patient the following information was left on their voice mail: Date of procedure, location and report time A message was left informing the patient/patient field representative/health education they must have a responsible adult accompany [...] Number to call with questions or concerns [phone] Number to call to cancel their procedure [phone] Eduardo Harrington RN Allergies As of Date: 03/28/2022 (No Known Allergies) Date Reviewed: 01/01/2022 Reviewed by: Juan Carlos Saucedo LPN - Fully Assessed Reason for Visit: Appointment Confirmation [[id number]] Prescriptions as of 03/28/2022 - prochlorperazine (COMPAZINE) [...] Status:Closed by EDUARDO HARRINGTON on 03/28/22 Normal [facility] PROF 14(COMP METB)on 023 Albumin [Mass/Vol] 4.2 g/dL Normal 3.4-5.0 [facility] Comment on above: Performed By: #### L IPID, CMP #### [facility] [address] [place] [address] Dr. Prince Olivas Albumin/Globulin [Mass ratio] 1.4 {ratio} Normal [facility] Comment on above: Performed By: #### L IPID, CMP #### [facility] [address] [place] [address] Dr. Prince Olivas ALP [Catalytic activity/Vol] 86 U/L Normal 46-116 [facility] Comment on above: Performed By: #### L IPID, CMP #### [facility] [address] [place] [address] Dr. Prince Olivas ALT [Catalytic activity/Vol] 13 U/L Critically low 14-59 [facility] Comment on above: Performed By: #### L IPID, CMP #### [facility] [address] [place] [address] Dr. Prince Olivas Anion gap [Moles/Vol] 9.7 mmol/L Normal [facility] Comment on above: Performed By: #### L IPID, CMP #### [facility] [address] [place] [address] Dr. Prince Olivas AST [Catalytic activity/Vol] 15 U/L Normal 15-37 [facility] Comment on above: Performed By: #### L IPID, CMP #### [facility] [address] [place] [address] Dr. Prince Olivas Bilirubin [Mass/Vol] 0.2 mg/dL Normal 0.2-1.0 [facility] Comment on above: Performed By: #### L IPID, CMP #### [facility] [address] [place] [address] Dr. Prince Olivas Calcium [Mass/Vol] 9.2 mg/dL Normal 8.5-10.1 [facility] Comment on above: Performed By: #### L IPID, CMP #### [facility] [address] [place] [address] Dr. Prince Olivas Chloride [Moles/Vol] 102 mmol/L Normal 98-107 [facility] Comment on above: Performed By: #### L IPID, CMP #### [facility] [address] [place] [address] Dr. Prince Olivas CO2 [Moles/Vol] 28.9 mmol/L Normal 21.0-32.0 [facility] Comment on above: Performed By: #### L IPID, CMP #### [facility] [address] [place] [address] Dr. Prince Olivas Creatinine [Mass/Vol] 0.81 mg/dL Normal 0.55-1.02 [facility] Comment on above: Performed By: #### L IPID, CMP #### [facility] [address] [place] [address] Dr. Prince Olivas EGFR-AF UKRAINIAN >60 Normal >=60 [facility] Comment on above: Performed By: #### L IPID, CMP #### [facility] [address] [place] [address] Dr. Prince Olivas EGFR-NON AF UKRAINIAN >60 Normal >=60 [facility] Comment on above: Performed By: #### L IPID, CMP #### [facility] [address] [place] [address] Dr. Prince Olivas Globulin (S) [Mass/Vol] 3.1 g/dL Normal [facility] Comment on above: Performed By: #### L IPID, CMP #### [facility] [address] [place] [address] Dr. Prince Olivas Glucose [Mass/Vol] 74 mg/dL Normal 74-106 [facility] Comment on above: Performed By: #### L IPID, CMP #### [facility] [address] [place] [address] Dr. Prince Olivas Potassium [Moles/Vol] 4.1 mmol/L Normal 3.5-5.1 [facility] Comment on above: Performed By: #### L IPID, CMP #### [facility] [address] [place] [address] Dr. Prince Olivas Protein [Mass/Vol] 7.3 g/dL Normal 6.4-8.2 [facility] Comment on above: Performed By: #### L IPID, CMP #### [facility] [address] [place] [address] Dr. Prince Olivas Sodium [Moles/Vol] 138 mmol/L Normal 136-145 [facility] Comment on above: Performed By: #### L IPID, CMP #### [facility] [address] [place] [address] Dr. Prince Olivas Urea nitrogen [Mass/Vol] 11.0 mg/dL Normal 7.0-18.0 [facility] Comment on above: Performed By: #### L IPID, CMP #### [facility] [address] [place] [address] Dr. Prince Olivas Urea nitrogen/Creatinine [Mass ratio] 13.6 mg/mg Normal [facility] Comment on above: Performed By: #### L IPID, CMP #### [facility] [address] [place] [address] Dr. Prince Olivas TSHon 03-28-2022 TSH 0.948 uIU/mL Normal 0.358-3.740 [facility] Comment on above: Performed By: #### L IPID, CMP #### [facility] [address] [place] [address] Dr. Prince Olivas VIT B12 AND FOLATEon 023 Cobalamin (Vitamin B12) [Mass/Vol] 260.0 pg/mL Normal 193.0-986.0 [facility] Comment on above: Performed By: #### C OPPER #### [facility] [address] [place], [place] [address] Dr. Prince Olivas FOLATE 7.90 ng/mL Critically low 8.60-58.90 [facility] Comment on above: Performed By: #### C OPPER #### [facility] [id number] Prince Olivas NM GASTRIC EMPTYING SOLIDon 02-05-2022 NM GASTRIC EMPTYING SOLID * * *Final Report* * * DATE OF EXAM: Feb 05 2022 12:26PM [facility] 0017 - NM GASTRIC EMPTYING SOLID / [...] rate of gastric emptying of solid meal. Administrative Services Coordinator: PSCB Transcribe Date/Time: Feb 05 2022 1:36P Dictated by : SHER RODRIGUEZ MD This examination was interpreted and the report reviewed and electronically signed by: RENATO PATEL MD on Feb 05 2022 2:03PM EST [id number] Normal [facility] 01-05-2022 [facility] Telephone (GAPRA3) SAI PINEDA ([id number]) 1970 F Date Time Provider Department 01/05/22 TIFFANI MORALES3 During your visit today, we recorded the [...] Encounter Status:Closed by TIFFANI MORALES on 01/05/22 [facility] 01-03-2022 CNPN Telephone (GASTMN) SAI PINEDA ([id number]) 1970 F Date Time Provider Department 01/03/22 ANASTASIYA MOSQUEDA GASTWV During your visit today, we recorded the following information about you: Anastasiya Mosqueda PA-C 01/03/2022 10:19 AM Signed EGD results discussed with patient as requested, pathology still pending. Will reach out to patient once resulted. Red flags for in person care discussed. GRECIA Castorena [facility] 01/05/2022 10:02 AM Signed Patient requests return call [phone] Elizabeth Jimenez [facility] Allergies As of Date: 01/03/2022 (No Known [...] Encounter Status:Closed by [facility]STAS[facility]YA [facility]ED[facility] Telephone (DDQ) SAI PINEDA ([id number]) 1970 F Date Time Provider Department 01/02/22 ANASTASIYA MOSQUEDA DDQ During your visit today, we recorded the following information about you: Leydisrini Henry Workleader 01/02/2022 8:52 AM Signed Patient [...] Encounter Status:Closed by LEYDI HUIZAR on 01/02/22 [facility] ANES POSTPROC EVALon 022 ANES POSTPROC EVAL HNO ID: [id number] Author: Sher Hudson MD Service: ? Author [...] January 01, 2022 TIME: 5:13 PM CSN: [id number] Normal [facility] ANES PRE-OPon 01-01-2022 ANES PRE-OP HNO ID: [id number] Author: Sher Hudson MD Service: ? Author Type: Anesthesiologist Type: Anesthesia Preprocedure Evaluation Filed: 01/01/2022 3:42 PM Note Text: ANESTHESIOLOGY DAY OF SURGERY NOTE : 1970 Procedure Information Date/Time: 01/01/22 1600 Scheduled providers: Tiffani Morales MD; Sher Hudson MD; Kirsten Dalton APRN.AUTOMOTIVE TITLE CLERK Procedure: EGD DIAGNOSTIC Location: Gastroenterology Estimated body [...] and consent discussed: yes. Patient / Responsible Democrat agrees to proceed: yes Patient / Surrogate [...] January 01, 2022 TIME: 3:42 PM CSN: [id number] Normal [facility] EGD DIAGNOSTICon 01-01-2022 [facility] HISTORY PHYSICALon HISTORY PHYSICAL HNO ID: [id number] Author: Tiffani Morales MD Service: Gastroenterology Author [...] Sai Guerrero DATE: 01/01/2022 TIME: 1600 Normal [facility] NURSING PROGon 01-01-2022 NURSING PROG HNO ID: [id number] Author: Juan Carlos Saucedo LPN Service: ? [...] Signed By: Juan Carlos Saucedo LPN Normal [facility] NURSING PROG HNO ID: [id number] Author: Rima Coleman RN Service: ? Author [...] Rima Coleman RN In Department: GASTROENTEROLOGY Normal [facility] SURGICAL PATHOLOGYon CASE REPORT [facility] Comment on above: Order Comment: Speci men Type: TISSUE SPECIMENOrdering Facility: [facility] Address: [address] [place] [address] Result Comment: Surg [facility] Pathology Report Case: [id number] Authorizing Provider: Tiffani Morales MD Collected: 01/01/2022 04:13 PM Ordering Location: Gastroenterology Received: 01/01/2022 08:38 PM Pathologist: Jyotsna Cartwright MD Specimens: A) - DUODENUM BIOPSY, r/o celiac B) - STOMACH BIOPSY, r/o h. pylori C) - STOMACH (GASTRIC) POLYP BIOPSY, r/o adenoma Performed By: #### S ####[facility] LABIA [id number] [address] DIAGNOSIS COMMENT Normal [facility] Comment on above: Order Comment: Matai urbano Type: TISSUE SPECIMENOrdering Facility: [facility] Address: [address] [place] [address] Result Comment: A. A denovirus stain is negative for viral inclusions. Dr Valorie Jaimes has reviewed this part of the case and concurs. Laboratory Developed Test (LDT) Disclaimer: Performance characteristics of immunohistochemical, immunofluorescent and chromogenic in-situ hybridization tests have been determined by the performing laboratory within [facility]???s Lul Gandhi [facility] Pathology and Laboratory Medicine Aline ([facility], [facility] or [facility]) in a manner consistent with CLIA requirements. One or more of these tests have not been cleared or approved by the FDA. [facility] is regulated under CLIA as qualified to perform high-complexity testing. These tests are used for clinical purposes. They should not be regarded as investigational or for research. Positive and negative controls stain appropriately. Performed By: #### S ####[facility] [id number] [address] FINAL DIAGNOSIS Normal [facility] Comment on above: Order Comment: Matai urbano Type: TISSUE SPECIMENOrdering Facility: [facility] Address: [address] [place] [address] Result Comment: A. D uodenum, biopsy: - Incidental and minute tubular adenoma, negative for high grade dysplasia. See comment. - Duodenal mucosa with no diagnostic alterations. B. Stomach, biopsy: - Oxyntic and antral mucosa with no diagnostic alteration. - No morphologic evidence of H. Pylori microorganisms. C. Stomach, polypectomy: - Hyperplastic polyp. Performed By: #### S ####[facility] LABCLIA [id number] [address] OF [facility] FINAL PERFORMING LAB Normal [facility] Comment on above: Order Comment: Speci men Type: TISSUE SPECIMENOrdering Facility: [facility] Address: [address] [place] [address] Result Comment: Diag nostic interpretation performed at [facility], [address] [place] [address] CLIA# [id number] Net Wpf Developer: Constantin Quevedo M.D. Performed By: #### S ####[facility] LABCLIA [id number] [address] GROSS DESCRIPTION Normal [facility] Comment on above: Order Comment: Speci men Type: TISSUE SPECIMENOrdering Facility: [facility] Address: [address] [place] [address] Result Comment: A. D UODENUM BIOPSY Received [...] in one cassette. Gross examination performed at [facility], [address] [place] [address] TTN 01/02/2022 12:06 AM Performed By: #### S ####[facility] LABCLIA [id number] [address] [place] Upper GI endoscopyon 10-17-2 022 Upper GI endoscopy A31 Gastrointestinal Endoscopy Patient Name: Sai Guerrero Procedure Date: 01/01/2022 3:37 PM Date of : 1970 Admit Type: Outpatient Age: 51 Room: [address] Gender: Female Note Status: Finalized [...] the patient. 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 All rights reserved. The codes documented in this report are preliminary and upon strategic accounts manager review may be revised to meet current compliance requirements. Attending Participation: I personally performed the entire procedure. Scope In: 4:09:57 PM Scope Out: 4:21:34 PM MD Tiffani Camargo MD 01/01/2022 4:34:18 PM This report has been signed electronically by Tiffani Morales MD Number of Addenda: 0 Note Initiated On: 01/01/2022 3:37 PM Normal [facility] 12-28-2021 [facility] Telephone (GAPRA3) SAI WELLS ([id number]) 1970 F Date Time Provider Department 12/28/21 [...] have family/friend present for procedure transport home:Patient/patient field representative/health education was told that if they do not [...] area. Any barriers to Patient learning: Patient/Patient Harness Placer responded appropriately on phone. Type of instruction given: Verbal by telephone contact. Jose Rboerto Vyas RN Allergies As of Date: 12/28/2021 [...] Status:Closed by JOSE ROBERTO VYAS on 12/28/21 [facility] WE[facility]S ([id number]) 1970 F Date Time Provider Department 12/25/21 [...] Encounter Status:Closed by RIMA GERARD on 12/25/21 [facility] CNPNon 12-18-2021 CNPN Telephone (GAPRA3) SAI WELLS ([id number]) 1970 F Date Time Provider Department 12/18/21 BHUPINDER CARREON GAPRA3 During your visit today, we recorded the following information about you: Bhupinder Carreon MA 12/18/2021 10:51 AM Signed Attempted to reach the patient at the contact number that they provided [phone] (home) . Unable to speak with patient [...] Encounter Status:Closed by BHUPINDER CARREON on 12/18/21 [facility] 12-13-2021 [facility] Telephone (SHAREEMN) SAI WELLS ([id number]) 1970 F Date Time Provider Department 12/13/21 ANASTASIYA MOSQUEDA [facility] During your visit today, we recorded the following information about you: Elizabeth Jimenez [facility] 12/13/2021 11:20 AM Signed Received a call from patient's health agency concerning virtual visit set up with you today at 11 - Patient has not registered for [employer] (having trouble accessing her email) AND they want to know if you will do a phone visit instead Was told this was an urgent request from the referring doctor's office - the visit was scheduled thru the Referring Physician office There are no records found for this patient AND I attempted to pull records thru Care Everywhere Patient's phone [phone] Elizabeth Jimenez [facility] Elizabeth Jimenez [facility] 12/13/2021 12:33 PM Signed Spoke to patient's daughter - she will contact the [employer] support line to assist with setting up patient's [employer] AND assist with set up for virtual visit tomorrow morning Elizabeth Jimenez [facility] Elizabeth Jimenez [facility] 12/14/2021 12:34 PM Signed Patient phoned again unable to connect with you via [employer] Okay to schedule phone visit tomorrow? [phone] Elizabeth Jimenez [facility] Elizabeth Jimenez [facility] 12/14/2021 1:32 PM Signed Patient scheduled for phone visit Dec 15 at 11 am - patient instructed not to screen her calls at the time of the visit AND to answer her phone Elizabeth Jimenez [facility] Elizabeth Jimenez [facility] 12/15/2021 11:46 AM Addendum Patient called the office stating you did not phone her for her 11 am appt today- she confirmed the phone number on file desk operator checked the patient in as arrived you should be able to call her back without rescheduling the time [phone] Elizabeth Jimenez [facility] Allergies As of Date: 12/13/2021 (No Known [...] Status:Closed by ELIZABETH RODRIGUEZ on 12/13/21 Normal [facility] BNPon 12-11-2021 Natriuretic peptide B (Bld) [Mass/Vol] 134.0 pg/mL Normal <=900.0 [facility] Comment on above: Performed By: #### M MA2 #### [facility] [address] [place] [address] Dr. Prince Olivas CBC AUTO DIFFon 12-11-2021 BASO # 0.0 103/ul Normal 0.0-0.1 [facility] Comment on above: Performed By: #### L IPID, CMP #### [facility] [address] [place] [address] Dr. Prince Olivas Basophils/100 WBC (Bld) 0.4 % Normal 0.2-2.0 [facility] Comment on above: Performed By: #### L IPID, CMP #### [facility] [address] [place] [address] Dr. Prince Olivas EO # 0.0 103/ul Normal 0.0-0.7 [facility] Comment on above: Performed By: #### L IPID, CMP #### [facility] [address] [place] [address] Dr. Prince Olivas Eosinophils/100 WBC (Bld) 0.3 % Critically low 0.9-7.0 [facility] Comment on above: Performed By: #### L IPID, CMP #### [facility] [address] [place] [address] Dr. Prince Olivas Erythrocyte distribution width (RBC) [Ratio] 13.1 % Normal 11.0-15.0 [facility] Comment on above: Performed By: #### L IPID, CMP #### [facility] [address] [place] [address] Dr. Prince Olivas Hematocrit (Bld) [Volume fraction] 45.9 % Normal 36.0-48.0 [facility] Comment on above: Performed By: #### L IPID, CMP #### [facility] [address] [place] [address] Dr. Prince Olivas Hemoglobin (Bld) [Mass/Vol] 15.3 g/dL Normal 12.0-16.0 [facility] Comment on above: Performed By: #### L IPID, CMP #### [facility] [address] [place] [address] Dr. Prince Olivas IG # 0.04 10e3/ul Critically high 0.00-0.03 [facility] Comment on above: Performed By: #### L IPID, CMP #### [facility] [address] [place] [address] Dr. Prince Olivas IG % 0.4 % Normal 0.0-0.5 [facility] Comment on above: Performed By: #### L IPID, CMP #### [facility] [address] [address] [address] Prince Olivas LYMPH # 1.9 103/ul Normal 1.2-3.8 [facility] Comment on above: Performed By: #### L IPID, CMP #### [facility] [address] [address] [address] Prince Olivas Lymphocytes/100 WBC (Bld) 17.0 % Critically low 20.5-60.0 [facility] Comment on above: Performed By: #### L IPID, CMP #### [facility] [address] [place] [address] Dr. Prince Olivas MANUAL DIFF REQ NO Normal [facility] Comment on above: Performed By: #### L IPID, CMP #### [facility] [address] [place] [address] Dr. Prince Olivas MCH (RBC) [Entitic mass] 31.4 pg Normal 26.7-34.0 [facility] Comment on above: Performed By: #### L IPID, CMP #### [facility] [address] [place] [address] Dr. Prince Olivas MCHC (RBC) [Mass/Vol] 33.3 g/dL Normal 29.9-35.2 [facility] Comment on above: Performed By: #### L IPID, CMP #### [facility] [address] [place] [address] Dr. Prince Olivas MCV (RBC) [Entitic vol] 94.3 fL Normal 81.0-99.0 [facility] Comment on above: Performed By: #### L IPID, CMP #### [facility] [address] [place] [address] Dr. Prince Olivas MONO # 0.6 103/ul Normal 0.3-0.8 [facility] Comment on above: Performed By: #### L IPID, CMP #### [facility] [address] [place] [address] Dr. Prince Olivas Monocytes/100 WBC (Bld) 5.6 % Normal 1.7-12.0 [facility] Comment on above: Performed By: #### L IPID, CMP #### [facility] [address] [place] [address] Dr. Prince Olivas NEUT # 8.3 103/ul Critically high 1.4-6.5 [facility] Comment on above: Performed By: #### L IPID, CMP #### [facility] [address] [place] [address] Dr. Prince Olivas Neutrophils/100 WBC (Bld) 76.3 % Critically high 43.0-75.0 [facility] Comment on above: Performed By: #### L IPID, CMP #### [facility] [address] [place] [address] Dr. Prince Olivas Platelet mean volume (Bld) [Entitic vol] 12.1 fL Normal 9.5-13.5 [facility] Comment on above: Performed By: #### L IPID, CMP #### [facility] [address] [place] [address] Dr. Prince Olivas PLT 204 103/ul Normal 150-450 [facility] Comment on above: Performed By: #### L IPID, CMP #### [facility] [address] [place] [address] Dr. Prince Olivas RBC 4.87 106/ul Normal 4.20-5.40 [facility] Comment on above: Performed By: #### L IPID, CMP #### [facility] [address] [place] [address] Dr. Prince Olivas WBC 10.9 103/ul Normal 4.0-11.0 [facility] Comment on above: Performed By: #### L IPID, CMP #### [facility] [address] [place] [address] Dr. Prince Olivas LACTATE/LACTIC ACIDon 2021 Lactate [Moles/Vol] 1.9 mmol/L Normal 0.4-1.9 [facility] Comment on above: Performed By: #### S ELNIUM #### [facility] [address] [place] [address] Dr. Prince Olivas LIPASEon 12-11-2021 Lipase [Catalytic activity/Vol] 49.0 U/L Critically low 73.0-393.0 [facility] Comment on above: Performed By: #### M MA2 #### [facility] [address] [address] [address] Prince Olivas PROF 14(COMP METB)on 022 Albumin [Mass/Vol] 4.5 g/dL Normal 3.4-5.0 [facility] Comment on above: Performed By: #### M MA2 #### [facility] [address] [address] [address] Prince Olivas Albumin/Globulin [Mass ratio] 1.7 {ratio} Normal [facility] Comment on above: Performed By: #### Marine MA2 #### [facility] [address] [place] [address] Dr. Prince Olivas ALP [Catalytic activity/Vol] 83 U/L Normal 46-116 [facility] Comment on above: Performed By: #### Marine MA2 #### [facility] [address] [address] [address] Prince Olivas ALT [Catalytic activity/Vol] 19 U/L Normal 14-59 [facility] Comment on above: Performed By: #### Marine MA2 #### [facility] [address] [place] [address] Dr. Prince Olivas Anion gap [Moles/Vol] 15.8 mmol/L Normal [facility] Comment on above: Performed By: #### Marine MA2 #### [facility] [address] [address] [address] Prince Olivas AST [Catalytic activity/Vol] 15 U/L Normal 15-37 [facility] Comment on above: Performed By: #### M MA2 #### [facility] [address] [place] [address] Dr. Prince Olivas Bilirubin [Mass/Vol] 0.6 mg/dL Normal 0.2-1.0 [facility] Comment on above: Performed By: #### Marine MA2 #### [facility] [address] [address] [address] Prince Olivas Calcium [Mass/Vol] 9.3 mg/dL Normal 8.5-10.1 [facility] Comment on above: Performed By: #### M MA2 #### [facility] [address] [address] [address] Prince Olivas Chloride [Moles/Vol] 103 mmol/L Normal 98-107 [facility] Comment on above: Performed By: #### M MA2 #### [facility] [address] [place] [address] Dr. Prince Olivas CO2 [Moles/Vol] 25.9 mmol/L Normal 21.0-32.0 [facility] Comment on above: Performed By: #### Marine MA2 #### [facility] [address] [place] [address] Dr. Prince Olivas Creatinine [Mass/Vol] 0.97 mg/dL Normal 0.55-1.02 [facility] Comment on above: Performed By: #### Marine MA2 #### [facility] [address] [place] [address] Dr. Prince Olivas EGFR-AF UKRAINIAN >60 Normal >=60 [facility] Comment on above: Performed By: #### Marine MA2 #### [facility] [address] [place] [address] Dr. Prince Olivas EGFR-NON AF UKRAINIAN >60 Normal >=60 [facility] Comment on above: Performed By: #### Marine MA2 #### [facility] [address] [place] [address] Dr. Prince Olivas Globulin (S) [Mass/Vol] 2.7 g/dL Normal [facility] Comment on above: Performed By: #### M MA2 #### [facility] [address] [place] [address] Dr. Prince Olivas Glucose [Mass/Vol] 107 mg/dL Critically high 74-106 [facility] Comment on above: Performed By: #### M MA2 #### [facility] [address] [place] [address] Dr. Prince Olivas Potassium [Moles/Vol] 3.7 mmol/L Normal 3.5-5.1 [facility] Comment on above: Performed By: #### M MA2 #### [facility] [address] [address] [address] Prince Olivas Protein [Mass/Vol] 7.2 g/dL Normal 6.4-8.2 [facility] Comment on above: Performed By: #### Marine MA2 #### [facility] [address] [address] [address] Prince Olivas Sodium [Moles/Vol] 141 mmol/L Normal 136-145 [facility] Comment on above: Performed By: #### Marine MA2 #### [facility] [address] [address] [address] Prince Olivas Urea nitrogen [Mass/Vol] 11.0 mg/dL Normal 7.0-18.0 [facility] Comment on above: Performed By: #### Marine MA2 #### [facility] [address] [address] [address] Prince lOivas Urea nitrogen/Creatinine [Mass ratio] 11.3 mg/mg Normal [facility] Comment on above: Performed By: #### Marine MA2 #### [facility] [address] [address] [address] Prince Olivas TROPONIN, HIGH SENSITIVITYon 12-11-2021 HSTROP 5.5 pg/mL Normal 4.0-51.3 [facility] Comment on above: Result Comment: CUT- OFF POINTS HAVE BEEN ESTABLISHED BASED ON THE FOURTH UNIVERSAL DEFINITIONS OF MYOCARDIAL INFARCTION. THE UPPER REFERENCE LIMIT (URL) OF TROPONIN, DEFINED THE 99TH PERCENTILE OF cTnI DISTRIBUTION IN A REFERENCE POPULATION, HAS BEEN CONFIRMED THE DECISION THRESHOLD FOR [place] DIAGNOSIS. Performed By: #### Marine MA2 #### [facility] [address] [address] [address] Prince Olivas XR CHEST 1 Von [...] BRITNI HARRISON Date: 2021-12-11 15:20 Normal [facility] Coding Summary.on 12-06-2021 Coding Summary. CD:[id number] Gh0bWw+P GhlYWQ+SD2MCYKkW08anIIvrD9HA 1cBTB7GFWMVIJUYAI3XVX0qyVR1Y TkwI8RsmjIp XsvzsOWdST16QMj1OXQ9tDpvKTyo oW9pwZOfG2b5DaYtBE41fY50BZia CDIlIkI8SjHclgjfeTLv R9ytJhFreDYwArd+PHRhYmxlIHdp LRDlUZpxZUVmRmPjuGyrIW9vQx5s ZGVyLWNvbGxhcHNlOiBj m2bnGRJcSQeyVJ4gsWecG8QcwMF6 DZKdl2d4Bv85zQC+CZPpOKX9eSkx HWdae227EqTwu4vwYBQ6 sQLxZEtwYYZ2Y72xw4Q5AHMuBCTb TYW1yIS0bL9mqEvizpoiW5KshVOc LpH5IHI1tKIzfO1ulMwm sggwsA2uUlp+R87CYN1TIGFABK1C Phq4K5YvJbhljRS+PC28TYUyVX84 yEIytSVbe7ztqTb7GzLc SVAiTDW6tOtqNJzho0UoBAGtS97o oYJpw1M0COGjuJxphHWbJoMttSP2 bH2jFBywrxtxa4xnryxk Hxfae9myiw37qP28B13mZMhdPLXd BJA0XKDjZJXktWcsms3zsN2wRe5+ EZrsg4han8vzdSx5RtRy DZEzswEhiXbkILL8u6FqZo84T9Xc aRovl4UeWjf6wk24nAAeo1U7yCF5 LRvdXQGcvG0oCVzlQeI9 YSFkNiPvbA79wHKqLJrxVk5ulMjn eWuuZH0dYNWpfheoLYJdeC1vYAVn mVRcdNdwVM2lVAYlyibt i740DySyUTB5NEAepMRfH6LjxX3o CgUhOUQsYJXmN6MrfWQsNEnoA584 XFweTzT7QOMyzzOpI0Sp XYIwvIslVoD5k1X2Ha0Rd0Dsezqo SEM4HKwzKIX0TkPuWaUsBfR0Z7Zb Kfp8VVPrvQpjPE1yC4Zn MYPehsbqklzzvZL7DBQsHGTxeW77 wLMkNIjjRq9ik6G1v390RUXxBFKx dI46Pc1qiFmzRBIkbVQK oJ5kkwdsb8zxzzqrBgTyLCDxGIh1 LHf5PUHnfCdeQfRmJGQ2HgD9PXG3 cICxoY4zuFrrqgpdoN9e Oyc+N24guA4rFKJ4UZT1xragSTIr sqIwEH96TK44D7RaBvwtaRCexUN+ MXXwvjWxcQulQE9pNdIg l4hwd3XkSYcgW2GkIPEmLDngSsk6 DYKbMMQ5gAS7rU2oFBQkPRzcc0R2 gYE9F8CvehXjlk8hy6xv DDXgZOofP41mrFVco8S9HOQlgJT0 OIPrwEqaUmKwiK08Opq+PGNvbGdy k8RtSgbei7wct8bnkMz4 GdLcMQBpuaYruBwySSF4k3SsAq51 D10hEDtoNSMxRWMoAYVjSVQxrUeu or0ojE8rMb2+PGNvbCB3 vFI7xQ7kOVWoIrD5QQxwE384QlTm nNXyLthre0cly2isoTt6RcLrDPFi pkYemYzgKTQ5n5TmLc08 S92yUShtDMJsRUAuEPDeGBYgnDem qa4vpA2fZm4+IW8mh4cxpo33kE71 dHI+WNUmOEV2eYglYDew FQMakN1cQEwjQfQ8FCHqNvJzmV50 jJIbIZrnIi2zxIzvuNynRS6yZFDk dshgd482CqAfm4jeUMSf gWZySIabFHS4P30wy7V7POYjANGv ZXV1iVY4fL6diHdqlevabAVktOzm cxXjvYbmNGykHPvsK697 IHRvcDsnPlBhdGllbnQgTmFtZTo8 N1DpBuc1YULdhBvvZA9ijCMoRKmy Iv4uvDtolZovNP7aXKYx lgsgk832FgMnq9tdMPKqeMBjHSxo QIF8Q21sp9X2EJXbDBGuDZO9cAB3 qG5gmVmxmclgfKExdEoh oiHqvJvwLHljJFedX612ZMLeaWcb WkAgewEbMNKojYX0TT48CN73wPHf r0K6rYM0G1ByAWSpigvs flgezXQ1LWXgJWEpqB93Nu6mbPtu Cc0wGABjSIS4TIWreJQfO3YuxI7o JjQyHCDuCBNeD5JfqRQh UHvqH635JUzjXoI0BGQsnlTmV1Em VGCzaXstBwB8b0S8Sd8GG6A0PZ17 CX29fHTuc3R7fOV4R3Nu KVPdaczuzxsynVJ4JWQdAVSktC99 Si3gbNciZa3zWIJxIOA5ONRpuKZh M5YzfS2pSdQkPXBpGUTk R2QmvNYfZEwgS095EXysUyC9QWBa lcAkJ5TyACApqIarSfG1y3K8Gt8M EIr1RM62VX04hDCih2U4 qQC3W5MjCHHwctcsersheTW1DEXs AFYpfO59Bj9plDjfXw1zIDJqLIT8 TSRmeFShM7UbxM0mYfFs STLyDRFmC0AzkLJfTQqzT484HQld TzR2MANwpnBpF6RoCMTxtOokXzS4 o0R8De1MAXRpCE90ERH5 qEI1CV48NW97E1WlMezckOYdfDN+ PHRhYmxlIHdpZHRoPScxMDAlJyBz dAfiEF0dNf7bIQSvXFKd yHyznNJbUkKuh1emPZAtUYnlYE8n jYbcO4WsqBH1JFSax1i0Et23X90k G7DzjOT+TKBzlCO2eEX6 gJ1wPpSpDyA5YUnsS400ImGhaZAt Wgbpn6hri6qmuKf7CzS3FUHsmrOe uZwgEHH4e0AqEh79V96r IZhhVIRoTWJiXOReRVUuqEgdeu4s jL9jEx4+EAGtwUZ6lLN4bI8zFoYo JvW9AQjfE152XcComQKf Mqizi8zyx2gwkQs3ZiNzIWMhhqIr dDmwUQW2y0JtQr53J3RjfLstq9Qk Fxd7fs16eGFwi3U0fTF3 A6FnHJAzogbdlFLxgFblLI9vTKPq iksxSGNccD6aTDCsS2c7JeMqGhC3 ZGclB8PosvJ3ODCwiGFa KYqfOUO3S57qt9W8CKWcDUDsUGJ9 vUY7bC8lsUlxczugaXUlvTcmrhIz hHvxVVloNBpqN341XRYa vOelMQTqaB6tVKEkxFKmrGsgDL3x NTBpbjsnPldFQVZFUiwgUkhPTkRB ENP0F0FoWhw7BORvwEii VN0rbZYcUJbvIw6xeAehwGscYD2y UUPrfxiyZNYbwC4gJWMhwAMdiCmq SR0kZBKuthdrp554WsYj EGX3OEAxkPHnJ4YwjK4mQnKhQDBk HDIbG5PxtCUkPKpcB908BBdcFmC2 ACJsltCdM6SyXBTyhEhu ClY9p5M3Ww3bHn3nMu3kRGbpMI36 NI28zLPwq7Q7zGQ4G4AeZEQmnnui sugxuJE5VSPgLJRfwW33 kVOyBPkyGg8ct3J9h937QDKxLEOl hT86Mu2lbGlwUDGxsYFQlB0qabti p1wbjuokLdYlBKFuEKn8 IEn6BHSwcLvpAfDaQAN9UpE7MZB7 bERkiY9tsKlwpnrhaP2aVhy+NTEg LDOgphW4F7OaVtk8GKFi qRajOE2opAHdKKtmNf7vnHgnfCbh SV2pMVWohfvaTIQueZ8xKVAphJIa rEhaWA0wJXXhzrkok379 HwLiUWU3GOIdqIYhY3JorA4gFwXz UTXhBHLfO3DpqEXwWPdbJ453EEah VlU7STJskcDnA0MfDQQd gDvzWeU7r0Z8Tz7HHV2qzVA4R8Jm Ykx7YARggGeyFU4czSDjRNmvFo4e fCtbbNiqOO3cVYAwiygt NZEpwG5lVHYecOFbzKndUF7rOPJu qyygz289XnXnJOS7FDAalMJdP4Lb rI3sXoIcGWVxSMFaZ7Vp zKJkVQklZ186HYnxRpW6PTLgihXv K4PmFRLnoQsfZoH9c9F8Tu8UeROa T0VeY9o9O4QxFkuemRS+ LD02MMRcHG24nHSflIKey3maeHn1 OxZjKFPyWHR5wRjaGDvml9FfTKOy G95ejPMxn2J1QNUdgQmz yGPpPeSczHP1mA9lTGngdbtfi9md hxapBodwv2mfke02aO39V46wBKgk ZHRoPSIzMCUiIHZhbGln xk5nfW5eWb8+EJPlfUE0jYE9cQ0v PkOvQxB2URcyK538LhSofBGaYrho p8hdl0rgdKh4MvZiQDDx fjQriLbpQCH6m5TvTg85I65sLSwv CABaKHNwLAEdIFUamXnjcz4bqQ4d Ii8+IW4os9oetr69sN04 dHI+XMMvZOB3qVeuXEodLEJmgO9k ACmePqP8BZEtGwRpqD48ePKwWGvd Uj5xtKjzjUmtYE2dYLLt rqeau267JePfn9tbUCUnjCZuWHyi SFO3T27kp0Z5ONWoQZKdNTN6uHF1 rN1dkOdydpurzVFekZmg awEwgFneQCohONuzF417BLLsaRln YaBetOXtU0gmtyRKOX5hQoiklBQ+ NPGqTLY4eExkQOkcAEQv rB5fZUUjL4b2ZiRhEsJ9QTpcT6Nu bvN6XNWonBPgSSFjwKWVdX3btvtl l2uiyvjzVaAwKKZnZGo1 DOt1VDNbbOvaImRzHHD5XuD1DZQ9 tZJtdT9zbHksnbwqhM2dRle+RklO OjwvdGQ+ERMoYCF5rEqw FRqlKIZasH7uAAAiY7b0IwCeGaR0 UUjpX3XbdmC9LJZqwBSbRPZrcMWV lH6vjrjco1zlxnryVxHg JISxKUq9KHi0FDHffUtcUbEhHYY9 WgY2KHC7qEPgiE3adGaunrcstL2w Oyc+TVJOOjwvdGQ+PHRk THO6gAtvPBaiSTMqxM0dJZXnF6q3 ZrUgQlL0KJmgL9VvpiE2IBYebVWd IQJhyLWHbA2oufadf0dq jnzxXzNiVRTiRMg9QSx3OIHvuRus JyVhIWF2ZbJ4TCN0lGBucU8yyIzl xvhkzI1fVik+MCM8JJX0 JW12JX77U9GrThstqJTdgPB+PHRh YmxlIHdpZHRoPScxMDAlJyBzdHls VR4rRe3xXVGyBIQwaItu cHNl (more content not included)... Normal [facility] Amylaseon 12-03-2021 Amylase [Catalytic activity/Vol] 32 U/L Normal 25-157 [facility] Comment on above: Performed By: #### 1 [id number], [id number], 8580856, 0934552, 9540033, 1270858, 1680962 #### [facility] [address] [place] [address] Auto Diffon 12-03-2021 Basophils/100 WBC (Bld) 0.6 % Normal 0.0-2.0 [facility] Comment on above: Order Comment: Order Added by Discern Expert. Performed By: #### 1 [id number], 0972355, 8018945, 3169169, 4055596, 7679813, 6473938 #### [facility] [address] [place] [address] Basophils/Leukocyte s Auto (Bld) [Pure # fraction] 0.1 E9/L Normal 0.0-0.2 [facility] Comment on above: Order Comment: Order Added by Discern Expert. Performed By: #### 1 [id number], 4272420, 6796318, 8450036, 1374568, 6050460, 2373777 #### [facility] [address] [place] [address] Eosinophils/100 WBC (Bld) 0.1 % Normal 0.0-8.0 [facility] Comment on above: Order Comment: Order Added by Discern Expert. Performed By: #### 1 [id number], 7940288, 7692307, 2479994, 5460314, 4333135, 9235095 #### [facility] [address] [place] [address] Eosinophils/Leukocy lefty Auto (Bld) [Pure # fraction] 0.0 E9/L Normal 0.0-0.5 [facility] Comment on above: Order Comment: Order Added by Discern Expert. Performed By: #### 1 [id number], 1639315, 4205027, 4506370, 3494497, 6650377, 4052211 #### [facility] [address] [place] [address] Lymphocytes/100 WBC (Bld) 16.1 % Normal 14.0-50.0 [facility] Comment on above: Order Comment: Order Added by Discern Expert. Performed By: #### 1 [id number], 0276538, 6974100, 2194588, 5848175, 1810297, 1245369 #### [facility] [address] [place] [address] Lymphocytes/Leukocy lefty Auto (Bld) [Pure # fraction] 1.5 E9/L Normal 1.0-4.0 [facility] Comment on above: Order Comment: Order Added by Discern Expert. Performed By: #### 1 [id number], 9013957, 8973096, 1659076, 1573377, 7154782, 0183211 #### [facility] [address] [place] [address] Monocytes/100 WBC (Bld) 4.6 % Normal 4.0-14.0 [facility] Comment on above: Order Comment: Order Added by Farrukh Expert. Performed By: #### 1 [id number], 4569583, 5655891, 3860490, 5937992, 5205642, 3540720 #### [facility] [address] [place] [address] Monocytes/Leukocyte s Auto (Bld) [Pure # fraction] 0.4 E9/L Normal 0.2-1.0 [facility] Comment on above: Order Comment: Order Added by Discern Expert. Performed By: #### 1 [id number], 1777317, 7412615, 7996900, 2948011, 5148841, 5534124 #### [facility] [address] [place] [address] Neutrophils/100 WBC (Bld) 78.6 % High 36.0-75.0 [facility] Comment on above: Order Comment: Order Added by Discern Expert. Performed By: #### 1 [id number], 7444192, 5353770, 4420953, 4990574, 6710134, 8859749 #### [facility] [address] [place] [address] Neutrophils/Leukocy lefty Auto (Bld) [Pure # fraction] 7.6 E9/L High 2.0-7.5 [facility] Comment on above: Order Comment: Order Added by Discern Expert. Performed By: #### 1 [id number], 5833271, 8182972, 1096595, 3822873, 9414999, 5474924 #### [facility] [address] [place] [address] BMPon 12-03-2021 Creatinine [Mass/Vol] 1.1 mg/dL Normal 0.5-1.3 [facility] Comment on above: Performed By: #### 1 6253529, 4489747, 3468025, 3880900, 6534144, 8439256, 3594247 #### [facility] [address] [place] [address] Urea nitrogen [Mass/Vol] 21 mg/dL Normal 5-21 [facility] Comment on above: Performed By: #### 1 [id number], 1903934, 9804490, 8823260, 2578325, 4391534, 5783275 #### [facility] [address] [place] [address] Urea nitrogen/Creatinine [Mass ratio] 19 No Units Normal 10-20 [facility] Comment on above: Performed By: #### 1 [id number], 7768353, 1425956, 1927923, 9092707, 0023699, 1859481 #### [facility] [address] [place] [address] Anion gap [Moles/Vol] 22 mmol/L High 6-16 [facility] Comment on above: Performed By: #### 1 [id number], 5464926, 3588131, 2609727, 9268518, 9979328, 2833229 #### [facility] [address] [place] [address] Calcium [Mass/Vol] 9.8 mg/dL Normal 8.9-11.1 [facility] Comment on above: Performed By: #### 1 [id number], 2884819, 1853319, 9705601, 2808964, 8742703, 4545912 #### [facility] [address] [place] [address] Chloride [Moles/Vol] 96 mmol/L Low 101-111 [facility] Comment on above: Performed By: #### 1 9160978, 1050036, 4417579, 5188383, 3639369, 7047399, 3436256 #### [facility] [address] [place] [address] CO2 [Moles/Vol] 19 mmol/L Low 21-31 [facility] Comment on above: Performed By: #### 1 3574817, 2849539, 5108844, 3909076, 3474397, 3038622, 8070837 #### [facility] [address] [place] [address] Glucose [Mass/Vol] 64 mg/dL Normal 55-199 [facility] Comment on above: Result Comment: If t his glucose result represents a fasting glucose, interpretation should refer to the following reference range: 55-99 mg/dL Performed By: #### 1 [id number], 7539844, 5713711, 1483558, 8801887, 2684373, 1552363 #### [facility] [address] [place] [address] Potassium [Moles/Vol] 4.3 mmol/L Normal 3.5-5.3 [facility] Comment on above: Performed By: #### 1 [id number], 9893280, 4561166, 4894484, 8019194, 9388315, 4422210 #### [facility] [address] [place] [address] Sodium [Moles/Vol] 133 mmol/L Low 135-145 [facility] Comment on above: Performed By: #### 1 [id number], 4328091, 9468014, 5100501, 7416969, 8601163, 8562882 #### [facility] [address] [place] [address] CBC w/ Auto Diffon 2 Erythrocyte distribution width (RBC) [Ratio] 13.5 % Normal 10.9-14.2 [facility] Comment on above: Performed By: #### 1 [id number], 7344134, 6156834, 2632992, 4863395, 4366310, 6438541 #### [facility] [address] [place] [address] Hematocrit (Bld) [Volume fraction] 51.0 % High 34.0-46.0 [facility] Comment on above: Performed By: #### 1 5918348, 9087132, 8002069, 4020011, 4769585, 7895061, 0360635 #### [facility] [address] [place] [address] Hemoglobin (Bld) [Mass/Vol] 16.8 g/dL High 12.0-16.0 [facility] Comment on above: Performed By: #### 1 5273818, 5063708, 2939089, 5011508, 3148909, 8076406, 9409517 #### [facility] [address] [place] [address] MCH (RBC) [Entitic mass] 30.9 pg Normal 27.0-34.0 [facility] Comment on above: Performed By: #### 1 2654181, 8459857, 9572329, 7674850, 6895855, 2276068, 5765645 #### [facility] [address] [place] [address] MCHC (RBC) [Mass/Vol] 32.9 g/dL Normal 31.4-36.0 [facility] Comment on above: Performed By: #### 1 0210853, 1471627, 3401094, 8392262, 5497537, 0390269, 9953821 #### [facility] [address] [place] [address] MCV (RBC) [Entitic vol] 94.0 fL Normal 80.0-100.0 [facility] Comment on above: Performed By: #### 1 3693006, 8319618, 9626730, 2898464, 9137885, 2350798, 6668226 #### [facility] [address] [place] [address] Platelet mean volume (Bld) [Entitic vol] 9.8 fL Normal 6.4-10.8 [facility] Comment on above: Performed By: #### 1 9817968, 8233160, 0162615, 3836989, 4058715, 0580241, 0273004 #### [facility] [address] [place] [address] Platelets (Bld) [#/Vol] 212.0 E9/L Normal 150.0-500.0 [facility] Comment on above: Performed By: #### 1 5646179, 1736969, 1292007, 5977935, 1294475, 6494788, 4184623 #### [facility] [address] [place] [address] RBC (Bld) [#/Vol] 5.4 E12/L Normal 4.3-5.9 [facility] Comment on above: Performed By: #### 1 8404900, 8618492, 3843151, 2815233, 9310270, 3402014, 3710955 #### [facility] [address] [place] [address] WBC corrected for nucl RBC Auto (Bld) [#/Vol] 9.6 E9/L Normal 4.0-11.0 [facility] Comment on above: Performed By: #### 1 0160313, 1126570, 5530398, 0685047, 4082866, 6836141, 7224540 #### [facility] [address] [place] [address] Consent for Treatmenton 11-16 Consent for Treatment [id number]:127 Normal [facility] Discharge Instructionson Discharge Instructions [id number]:127 Normal [facility] ED Clinical Summaryon 2021 ED Clinical Summary (Inserted Image. Antoinette ble to display) [address] [address] ED Clinical Summary Person Information Name: SAI PINEDA Natalie/[facility] Age: 51 Years : 1970 Sex: Female Language: Chinese PCP: CRISTINA IQBAL CNP Marital Status: MRN: Visit Id: Visit Reason: Nausea; Abdominal pain; [id number] BREATHING Speciality: Acuity: 3 Enc Type: Emergency [...] 12/03/2021 13:54:54 12/03/2021 13:54:54 12/03/2021 13:54:54 ADDRESS: [address] [place] [id number] PHYS DOC NOTES: MEDICAL INFORMATION: Prescriptions Given: New Medications [facility]/pharmacy #[id number], [address], [place] [id number], [phone] promethazine (Phenergan 25 mg Supp) 1 Suppositories By rectum every 6 hours as needed as needed for nausea. Insert one per rectum every six hours as needed for nausea and vomiting. Refills: 0. promethazine (promethazine 25 mg Tab) 1 Tablets By Mouth every 4 hours. Refills: 0. Medications to Continue Taking That Have Changed [facility]/pharmacy #[id number], [address], [place] [id number], [phone] START: pantoprazole (Protonix 40 mg Tab-DR) 1 [...] day. PATIENT EDUCATION INFORMATION: Instructions: Gastritis, Adult, Ysgo-lx-Avul; Abdominal Pain, Adult Follow up: With: Address: When: CRISTINA HOODMARYAMBoyd [address] [facility] [place], [place] [phone] Business (1) In 3 days 12/06/2021 DIAGNOSIS: 1:Upper abdominal pain; 2:Gastritis; 3:Anxiety Normal [facility] ED Note-Physicianon 12-04-19 ED Note-Physician Basic [...] Daily, # 30 tab(s), Refills(s) 0, Pharmacy: [facility]/pharmacy #[id number], 172.9, cm, 12/03/21 10:15:00 EDT, Height/Length Dosing, 46.2, kg, 12/03/21 10:15:00 EDT, Weight Dosing promethazine, 25 mg = 1 tab(s), Oral, q4hr, # 12 tab(s), Refills(s) 0, [id number] 172.9, cm, 12/03/21 10:15:00 EDT, Height/Length Dosing, 46.2, kg, 12/03/21 10:15:00 EDT, Weight Dosing promethazine, 25 mg = 1 supp, Rectal, q6hr, PRN as needed for nausea, Insert one per rectum every six hours as needed for nausea and vomiting, # 6 EA, Refills(s) 0, [id number] 172.9, cm, 12/03/21 10:15:00 EDT, Height/Length [...] mg/mL IV Misty, 20 mg, IV Push [id number] [F], 1000 mL, IV promethazine 25 mg/mL [...] days 12/06/2021 EDT [address] [place] [id number] [phone] Business (1) Additional Instructions: Patient Ed (more content not included)... Normal [facility] Comment on above: Result Comment: Elec [...] these instructions at home: Medicines ? Take jlth-mhs-eqnfeeb and prescription medicines only as told by [...] 08/20/2008 Document Revised: 07/22/2018 Document Reviewed: 07/22/2018 [email or web address] Patient Education ? 2020 [employer]. Abdominal Pain, Adult Pain in the abdomen [...] these instructions at home: Medicines ? Take vtpd-rmr-cpseucs and prescription medicines only as told by [...] are cons (more content not included)... Normal [facility] ED Patient Summaryon 022 ED Patient Summary (Inserted Image. Antoinette ble to display) [place] [id number] Patient Discharge Instructions Person Information Name: SAI PINEDA Age: 51 Years Arrival Date: 12/03/2021 09:55:45 Discharge Diagnosis: 1:Upper abdominal pain; 2:Gastritis; 3:Anxiety Primary Care Physician: CRISTINA IQBAL CNP Provider Information Primary Provider: Vipin Pina MD Advanced Housesmith:None The exam and treatment you received in the Emergency Department were for an urgent problem and are not intended as complete care. It is important that you follow up with a doctor, nurse practitioner, or physician?s senior executive assistant for ongoing care. If your symptoms [...] Address: When: CRISTINA IQBAL [address] [place], [place] [phone] Business (1) In 3 days 12/06/2021 In the event that this physician does not participate in your insurance network, please consult with your insurance company to find a nearby participating provider. Patient Education Materials: Gastritis, Adult, Rihr-zk-Lrbn; Abdominal Pain, Adult A MESSAGE TO ALL PATIENTS REGARDING OPIOIDS PRESCRIPTION OPIOIDS: WHAT YOU NEED TO KNOW Prescription opioids can be used to help relieve mqipuaqw-fu-wgnyyu pain and are often prescribed following a [...] be struggling with addiction, tell your health live in caregiver and ask for guidance or call [facility]? (more content not included)... Normal [facility] Hep Func Panelon 12-03-2021 Albumin [Mass/Vol] 5.3 g/dL High 3.3-5.0 [facility] Comment on above: Performed By: #### 1 [id number], 6845746, 7950130, 9630485, 2458128, 3246242, 0576085 #### [facility] Laboratory [address] [place] [address] Albumin/Globulin (S) [Mass conc ratio] 1.8 Normal 1.1-2.2 [facility] Comment on above: Performed By: #### 1 [id number], 2846895, 6257044, 0488430, 7344933, 0763447, 8661598 #### [facility] [address] [place] [address] ALP [Catalytic activity/Vol] 79 Int._Unit/L Normal 21-98 [facility] Comment on above: Performed By: #### 1 [id number], 7502200, 8332152, 0565524, 3041136, 2712966, 0184816 #### [facility] [address] [place] [address] ALT No additional P-5'-P [Catalytic activity/Vol] 14 Int._Unit/L Normal 6-46 [facility] Comment on above: Performed By: #### 1 [id number], 9155849, 2250935, 5021669, 1803308, 1277816, 0952027 #### [facility] [address] [place] [address] AST [Catalytic activity/Vol] 21 Int._Unit/L Normal 5-43 [facility] Comment on above: Performed By: #### 1 0753267, 6730742, 4034715, 4223849, 2074090, 4358706, 6064911 #### [facility] [address] [place] [address] Bilirubin [Mass/Vol] 1.2 mg/dL High 0.0-1.1 [facility] Comment on above: Performed By: #### 1 1877769, 1802659, 3741670, 3654511, 6234371, 7394359, 0234683 #### [facility] [address] [place] [address] Bilirubin.direct [Mass/Vol] 0.2 mg/dL Normal 0.1-0.4 [facility] Comment on above: Performed By: #### 1 5211156, 1729077, 9270509, 2673414, 0771081, 5523246, 0912015 #### [facility] [address] [place] [address] Bilirubin.indirect [Mass or moles/Vol] 1.0 mg/dL High 0.1-0.9 [facility] Comment on above: Performed By: #### 1 3664403, 9812399, 5331219, 0632508, 9925991, 0790349, 3025965 #### [facility] [address] [place] [address] Globulin (S) [Mass/Vol] 3.0 g/dL Normal 1.4-4.0 [facility] Comment on above: Performed By: #### 1 1295126, 0956711, 7133312, 7869232, 7869264, 0405349, 7668531 #### [facility] [address] [place] [address] Protein [Mass/Vol] 8.3 g/dL High 6.0-7.8 [facility] Comment on above: Performed By: #### 1 6032236, 5654853, 1787035, 3565055, 0576819, 6760853, 1061157 #### [facility] [address] [place] [address] Lipase Levelon 12-03-2021 Lipase [Catalytic activity/Vol] 21 U/L Normal 13-58 [facility] Comment on above: Performed By: #### 1 0194175, 3377160, 8082142, 7867069, 8236976, 0637238, 2288115 #### [facility] [address] [place] [address] eGFRon 12-03-2021 GFR/1.73 sq M.predicted among blacks MDRD (S/P/Bld) [Vol rate/Area] mL/min/{1.73_m2} Normal >=59 [facility] Comment on above: Order Comment: Order added by Discern Expert. Result Comment: eGFR is race adjusted. AA=. Performed By: #### 1 [id number], 8520276, 3374231, 7387640, 7032268, 4165939, 5585013 #### [facility] [address] [place] [address] GFR/1.73 sq M.predicted among non-blacks MDRD (S/P/Bld) [Vol rate/Area] 52 mL/min/1.73 m2 Low >=59 [facility] Comment on above: Order Comment: Order added by Discern Expert. Result Comment: Grounds Maintenance Supervisor julian kidney disease could be indicated at eGFR's of less than 60 mL/min/1.73m2. Kidney failure is indicated at less than 15 mL/min/1.73m2. Performed By: #### 1 2271343, 9002972, 5414885, 5041519, 6095178, 3094496, 7034455 #### [facility] [address] [place] [address] CARDIAC SIMA ADMITon 022 CK [Catalytic activity/Vol] 72 U/L Normal 26-192 [facility] Comment on above: Performed By: #### S SKYLER #### [facility] [address] [place] [address] Dr. Prince Olivas CK.MB [Mass/Vol] 1.28 ng/mL Normal <=3.60 [facility] Comment on above: Performed By: #### S SKYLER #### [facility] [address] [place] [address] Dr. Prince Olivas HSTROP 5.4 pg/mL Normal 4.0-51.3 [facility] Comment on above: Result Comment: CUT- OFF POINTS HAVE BEEN ESTABLISHED BASED ON THE FOURTH UNIVERSAL DEFINITIONS OF MYOCARDIAL INFARCTION. THE UPPER REFERENCE LIMIT (URL) OF TROPONIN, DEFINED THE 99TH PERCENTILE OF cTnI DISTRIBUTION IN A REFERENCE POPULATION, HAS BEEN CONFIRMED THE DECISION THRESHOLD FOR [place] DIAGNOSIS. Performed By: #### S SKYLER #### [facility] [address] [place] [address] Dr. Prince Olivas JENNIFER 58 ng/mL Normal 9-82 [facility] Comment on above: Performed By: #### S SKYLER #### [facility] [address] [place] [address] Dr. Prince Olivas CBC AUTO DIFFon 11-14-2021 BASO # 0.1 103/ul Normal 0.0-0.1 [facility] Comment on above: Performed By: #### L IPID, CMP #### [facility] [address] [place] [address] Dr. Prince Olivas Basophils/100 WBC (Bld) 0.6 % Normal 0.2-2.0 [facility] Comment on above: Performed By: #### L IPID, CMP #### [facility] [address] [place] [address] Dr. Prince Olivas EO # 0.1 103/ul Normal 0.0-0.7 [facility] Comment on above: Performed By: #### L IPID, CMP #### [facility] [address] [place] [address] Dr. Prince Olivas Eosinophils/100 WBC (Bld) 0.9 % Normal 0.9-7.0 [facility] Comment on above: Performed By: #### L IPID, CMP #### [facility] [address] [place] [address] Dr. Prince Olivas Erythrocyte distribution width (RBC) [Ratio] 13.0 % Normal 11.0-15.0 [facility] Comment on above: Performed By: #### L IPID, CMP #### [facility] [address] [place] [address] Dr. Prince Olivas Hematocrit (Bld) [Volume fraction] 46.3 % Normal 36.0-48.0 [facility] Comment on above: Performed By: #### L IPID, CMP #### [facility] [address] [place] [address] Dr. Prince Olivas Hemoglobin (Bld) [Mass/Vol] 15.8 g/dL Normal 12.0-16.0 [facility] Comment on above: Performed By: #### L IPID, CMP #### [facility] [address] [place] [address] Dr. Prince Olivas IG # 0.03 10e3/ul Normal 0.00-0.03 [facility] Comment on above: Performed By: #### L IPID, CMP #### [facility] [address] [place] [address] Dr. Prince Olivas IG % 0.3 % Normal 0.0-0.5 [facility] Comment on above: Performed By: #### L IPID, CMP #### [facility] [address] [place] [address] Dr. Prince Olivas LYMPH # 2.8 103/ul Normal 1.2-3.8 [facility] Comment on above: Performed By: #### L IPID, CMP #### [facility] [address] [place] [address] Dr. Prince Olivas Lymphocytes/100 WBC (Bld) 31.8 % Normal 20.5-60.0 [facility] Comment on above: Performed By: #### L IPID, CMP #### [facility] [address] [place] [address] Dr. Prince Olivas MANUAL DIFF REQ NO Normal [facility] Comment on above: Performed By: #### L IPID, CMP #### [facility] [address] [place] [address] Dr. Prince Olivas MCH (RBC) [Entitic mass] 31.5 pg Normal 26.7-34.0 [facility] Comment on above: Performed By: #### L IPID, CMP #### [facility] [address] [place] [address] Dr. Prince Olivas MCHC (RBC) [Mass/Vol] 34.1 g/dL Normal 29.9-35.2 [facility] Comment on above: Performed By: #### L IPID, CMP #### [facility] [address] [place] [address] Dr. Prince Olivas MCV (RBC) [Entitic vol] 92.4 fL Normal 81.0-99.0 [facility] Comment on above: Performed By: #### L IPID, CMP #### [facility] [address] [place] [address] Dr. Prince Olivas MONO # 0.6 103/ul Normal 0.3-0.8 [facility] Comment on above: Performed By: #### L IPID, CMP #### [facility] [address] [place] [address] Dr. Prince Olivas Monocytes/100 WBC (Bld) 6.8 % Normal 1.7-12.0 [facility] Comment on above: Performed By: #### L IPID, CMP #### [facility] [address] [place] [address] Dr. Prince Olivas NEUT # 5.3 103/ul Normal 1.4-6.5 [facility] Comment on above: Performed By: #### L IPID, CMP #### [facility] [address] [place] [address] Dr. Prince Olivas Neutrophils/100 WBC (Bld) 59.6 % Normal 43.0-75.0 [facility] Comment on above: Performed By: #### L IPID, CMP #### [facility] [address] [place] [address] Dr. Prince Olivas Platelet mean volume (Bld) [Entitic vol] 11.6 fL Normal 9.5-13.5 [facility] Comment on above: Performed By: #### L IPID, CMP #### [facility] [address] [place] [address] Dr. Prince Olivas PLT 185 103/ul Normal 150-450 [facility] Comment on above: Performed By: #### L IPID, CMP #### [facility] [address] [place] [address] Dr. Prince Olivas RBC 5.01 106/ul Normal 4.20-5.40 [facility] Comment on above: Performed By: #### L IPID, CMP #### [facility] [address] [place] [address] Dr. Prince Oliavs WBC 8.9 103/ul Normal 4.0-11.0 [facility] Comment on above: Performed By: #### L IPID, CMP #### [facility] [address] [place] [address] Dr. Prince Olivas LIPASEon 11-14-2021 Lipase [Catalytic activity/Vol] 84.0 U/L Normal 73.0-393.0 [facility] Comment on above: Performed By: #### S ELNIUM #### [facility] [address] [place] [address] Dr. Prince Olivas PROF 14(COMP METB)on 022 Albumin [Mass/Vol] 4.1 g/dL Normal 3.4-5.0 [facility] Comment on above: Performed By: #### S ELNIUM #### [facility] [address] [place] [address] Dr. Prince Olivas Albumin/Globulin [Mass ratio] 1.6 {ratio} Normal [facility] Comment on above: Performed By: #### S ELNIUM #### [facility] [address] [place] [address] Dr. Prince Olivas ALP [Catalytic activity/Vol] 76 U/L Normal 46-116 [facility] Comment on above: Performed By: #### S ELNIUM #### [facility] [address] [place] [address] Dr. Prince Olivas ALT [Catalytic activity/Vol] 14 U/L Normal 14-59 [facility] Comment on above: Performed By: #### S ELNIUM #### [facility] [address] [place] [address] Dr. Prince Olivas Anion gap [Moles/Vol] 17.7 mmol/L Normal [facility] Comment on above: Performed By: #### S ELNIUM #### [facility] [address] [place] [address] Dr. Prince Olivas AST [Catalytic activity/Vol] 15 U/L Normal 15-37 [facility] Comment on above: Performed By: #### S ELNIUM #### [facility] [address] [place] [address] Dr. Prince Olivas Bilirubin [Mass/Vol] 0.7 mg/dL Normal 0.2-1.0 [facility] Comment on above: Performed By: #### S ELNIUM #### [facility] [address] [place] [address] Dr. Prince Olivas Calcium [Mass/Vol] 9.4 mg/dL Normal 8.5-10.1 [facility] Comment on above: Performed By: #### S ELNIUM #### [facility] [address] [place] [address] Dr. Prince Olivas Chloride [Moles/Vol] 104 mmol/L Normal 98-107 [facility] Comment on above: Performed By: #### S ELNIUM #### [facility] [address] [place] [address] Dr. Prince Olivas CO2 [Moles/Vol] 20.8 mmol/L Critically low 21.0-32.0 [facility] Comment on above: Performed By: #### S ELNIUM #### [facility] [address] [place] [address] Dr. Prince Olivas Creatinine [Mass/Vol] 0.96 mg/dL Normal 0.55-1.02 [facility] Comment on above: Performed By: #### S ELNIUM #### [facility] [address] [place] [address] Dr. Prince Olivas EGFR-AF UKRAINIAN >60 Normal >=60 [facility] Comment on above: Performed By: #### S ELNIUM #### [facility] [address] [place] [address] Dr. Prince Olivas EGFR-NON AF UKRAINIAN >60 Normal >=60 [facility] Comment on above: Performed By: #### S ELNIUM #### [facility] [address] [place] [address] [address] Prince Olivas Globulin (S) [Mass/Vol] 2.6 g/dL Normal [facility] Comment on above: Performed By: #### S ELNIUM #### [facility] [address] [place] [address] Dr. Prince Olivas Glucose [Mass/Vol] 104 mg/dL Normal 74-106 [facility] Comment on above: Performed By: #### S ELNIUM #### [facility] [address] [place] [address] Dr. Prince Olivas Potassium [Moles/Vol] 3.5 mmol/L Normal 3.5-5.1 [facility] Comment on above: Performed By: #### S ELNIUM #### [facility] [address] [place] [address] Dr. Prince Olivas Protein [Mass/Vol] 6.7 g/dL Normal 6.4-8.2 [facility] Comment on above: Performed By: #### S ELNIUM #### [facility] [address] [place] [address] Dr. Prince Olivas Sodium [Moles/Vol] 139 mmol/L Normal 136-145 [facility] Comment on above: Performed By: #### S ELNIUM #### [facility] [address] [place] [address] [address] Prince Olivas Urea nitrogen [Mass/Vol] 10.0 mg/dL Normal 7.0-18.0 [facility] Comment on above: Performed By: #### S ELNIUM #### [facility] [address] [place] [address] [address] Prince Olivas Urea nitrogen/Creatinine [Mass ratio] 10.4 mg/mg Normal [facility] Comment on above: Performed By: #### S ELNIUM #### [facility] [address] [place] [address] Dr. Prince Olivas XR ABD FLAT UP_PA [...] CHITRA ALFARO Date: 2021-11-14 18:10 Normal [facility] CBC AUTO DIFFon 11-09-2021 BASO # 0.0 103/ul Normal 0.0-0.1 [facility] Comment on above: Performed By: #### S ELNIUM #### [facility] [address] [place] [address] Dr. Prince Olivas Basophils/100 WBC (Bld) 0.3 % Normal 0.2-2.0 [facility] Comment on above: Performed By: #### S ELNIUM #### [facility] [address] [place] [address] [address] Prince Olivas EO # 0.0 103/ul Normal 0.0-0.7 [facility] Comment on above: Performed By: #### S ELNIUM #### [facility] [address] [place] [address] Dr. Prince Olivas Eosinophils/100 WBC (Bld) 0.3 % Critically low 0.9-7.0 [facility] Comment on above: Performed By: #### S ELNIUM #### [facility] [address] [place] [address] Dr. Prince Olivas Erythrocyte distribution width (RBC) [Ratio] 13.1 % Normal 11.0-15.0 [facility] Comment on above: Performed By: #### S ELNIUM #### [facility] [address] [place] [address] Dr. Prince Olivas Hematocrit (Bld) [Volume fraction] 46.8 % Normal 36.0-48.0 [facility] Comment on above: Performed By: #### S ELNIUM #### [facility] [address] [place] [address] Dr. Prince Olivas Hemoglobin (Bld) [Mass/Vol] 15.8 g/dL Normal 12.0-16.0 [facility] Comment on above: Performed By: #### S ELNIUM #### [facility] [address] [place] [address] Dr. Prince Olivas IG # 0.03 10e3/ul Normal 0.00-0.03 [facility] Comment on above: Performed By: #### S ELNIUM #### [facility] [address] [place] [address] Dr. Prince Olivas IG % 0.3 % Normal 0.0-0.5 [facility] Comment on above: Performed By: #### S ELNIUM #### [facility] [address] [place] [address] Dr. Prince Olivas LYMPH # 2.9 103/ul Normal 1.2-3.8 [facility] Comment on above: Performed By: #### S ELNIUM #### [facility] [address] [place], [place] [id number] Dr. Prince Olivas Lymphocytes/100 WBC (Bld) 31.7 % Normal 20.5-60.0 [facility] Comment on above: Performed By: #### S ELNIUM #### [facility] [address] [place] [address] Dr. Prince Olivas MANUAL DIFF REQ NO Normal [facility] Comment on above: Performed By: #### S ELNIUM #### [facility] [address] [place] [address] Dr. Prince Olivas MCH (RBC) [Entitic mass] 31.9 pg Normal 26.7-34.0 [facility] Comment on above: Performed By: #### S ELNIUM #### [facility] [address] [place] [address] Dr. Prince Olivas MCHC (RBC) [Mass/Vol] 33.8 g/dL Normal 29.9-35.2 [facility] Comment on above: Performed By: #### S ELNIUM #### [facility] [address] [place] [address] Dr. Prince Olivas MCV (RBC) [Entitic vol] 94.5 fL Normal 81.0-99.0 [facility] Comment on above: Performed By: #### S ELNIUM #### [facility] [address] [place] [address] Dr. Prince Olivas MONO # 0.5 103/ul Normal 0.3-0.8 [facility] Comment on above: Performed By: #### S ELNIUM #### [facility] [address] [place] [address] Dr. Prince Olivas Monocytes/100 WBC (Bld) 5.2 % Normal 1.7-12.0 [facility] Comment on above: Performed By: #### S ELNIUM #### [facility] [address] [place] [address] Dr. Prince Olivas NEUT # 5.8 103/ul Normal 1.4-6.5 [facility] Comment on above: Performed By: #### S ELNIUM #### [facility] [address] [address] [address] Prince Olivas Neutrophils/100 WBC (Bld) 62.2 % Normal 43.0-75.0 [facility] Comment on above: Performed By: #### S ELNIUM #### [facility] [address] [address] [address] Prince Olivas Platelet mean volume (Bld) [Entitic vol] 11.1 fL Normal 9.5-13.5 [facility] Comment on above: Performed By: #### S ELNIUM #### [facility] [address] [place] [address] [address] Prince Olivas PLT 218 103/ul Normal 150-450 [facility] Comment on above: Performed By: #### S ELNIUM #### [facility] [address] [place] [address] Dr. Prince Olivas RBC 4.95 106/ul Normal 4.20-5.40 [facility] Comment on above: Performed By: #### S ELNIUM #### [facility] [address] [address] [address] Prince Olivas WBC 9.3 103/ul Normal 4.0-11.0 [facility] Comment on above: Performed By: #### S ELNIUM #### [facility] [address] [place] [address] Dr. Prince Olivas PROF CHEM 8 (BAS METB)on Anion gap [Moles/Vol] 14.8 mmol/L Normal [facility] Comment on above: Performed By: #### C OPPER #### [facility] [address] [place] [address] Dr. Prince Olivas Calcium [Mass/Vol] 9.3 mg/dL Normal 8.5-10.1 [facility] Comment on above: Performed By: #### C OPPER #### [facility] [address] [place] [address] Dr. Prince Olivas Chloride [Moles/Vol] 105 mmol/L Normal 98-107 [facility] Comment on above: Performed By: #### C OPPER #### [facility] [address] [address] [address] Prince Olivas CO2 [Moles/Vol] 23.7 mmol/L Normal 21.0-32.0 [facility] [facility] Comment on above: Performed By: #### C OPPER #### [facility] [address] [address] [address] Prince Olivas Creatinine [Mass/Vol] 0.95 mg/dL Normal 0.55-1.02 [facility] Comment on above: Performed By: #### C OPPER #### [facility] [address] [address] [address] Prince Olivas EGFR-AF UKRAINIAN >60 Normal >=60 [facility] Comment on above: Performed By: #### C OPPER #### [facility] [address] [place] [address] Dr. Prince Olivas EGFR-NON AF UKRAINIAN >60 Normal >=60 [facility] Comment on above: Performed By: #### C OPPER #### [facility] [address] [place] [address] Dr. Prince Olivas Glucose [Mass/Vol] 103 mg/dL Normal 74-106 [facility] Comment on above: Performed By: #### C OPPER #### [facility] [address] [place] [address] Dr. Prince Olivas Potassium [Moles/Vol] 3.5 mmol/L Normal 3.5-5.1 [facility] Comment on above: Performed By: #### C OPPER #### [facility] [address] [place] [address] Dr. Prince Olivas Sodium [Moles/Vol] 140 mmol/L Normal 136-145 [facility] Comment on above: Performed By: #### C OPPER #### [facility] [address] [place] [address] Dr. Prince Olivas Urea nitrogen [Mass/Vol] 7.0 mg/dL Normal 7.0-18.0 [facility] Comment on above: Performed By: #### C OPPER #### [facility] [address] [place] [address] Dr. Prince Olivas Urea nitrogen/Creatinine [Mass ratio] 7.4 mg/mg Normal [facility] Comment on above: Performed By: #### C OPPER #### [facility] [address] [address] [address] Prince Olivas TROPONIN, HIGH SENSITIVITYon 11-09-2021 HSTROP 4.3 pg/mL Normal 4.0-51.3 [facility] Comment on above: Result Comment: CUT- OFF POINTS HAVE BEEN ESTABLISHED BASED ON THE FOURTH UNIVERSAL DEFINITIONS OF MYOCARDIAL INFARCTION. THE UPPER REFERENCE LIMIT (URL) OF TROPONIN, DEFINED THE 99TH PERCENTILE OF cTnI DISTRIBUTION IN A REFERENCE POPULATION, HAS BEEN CONFIRMED THE DECISION THRESHOLD FOR [place] DIAGNOSIS. Performed By: #### C OPPER #### [facility] [address] [address] [address] Prince Olivas XR CHEST 1 Von [...] BELEN REGAN Date: 2021-11-09 17:05 Normal [facility] CARDIAC SIMA ADMITon 022 CK [Catalytic activity/Vol] 62 U/L Normal 26-192 [facility] Comment on above: Performed By: #### M MA2 #### [facility] [address] [address] [address] Prince Olivas CK.MB [Mass/Vol] 0.37 ng/mL Normal <=3.60 [facility] Comment on above: Performed By: #### M MA2 #### [facility] [address] [place] [address] Dr. Prince Olivas HSTROP 3.5 pg/mL Critically low 4.0-51.3 [facility] Comment on above: Result Comment: CUT- OFF POINTS HAVE BEEN ESTABLISHED BASED ON THE FOURTH UNIVERSAL DEFINITIONS OF MYOCARDIAL INFARCTION. THE UPPER REFERENCE LIMIT (URL) OF TROPONIN, DEFINED THE 99TH PERCENTILE OF cTnI DISTRIBUTION IN A REFERENCE POPULATION, HAS BEEN CONFIRMED THE DECISION THRESHOLD FOR [place] DIAGNOSIS. Performed By: #### M MA2 #### [facility] [address] [place] [address] Dr. Prince Olivas JENNIFER 40 ng/mL Normal 9-82 [facility] Comment on above: Performed By: #### M MA2 #### [facility] [address] [place] [address] Dr. Prince Olivas CBC AUTO DIFFon 10-04-2021 BASO # 0.0 103/ul Normal 0.0-0.1 [facility] Comment on above: Performed By: #### C BC #### [facility] [address] [place] [address] Dr. Prince Olivas Basophils/100 WBC (Bld) 0.6 % Normal 0.2-2.0 [facility] Comment on above: Performed By: #### C BC #### [facility] [address] [place] [address] Dr. Prince Olivas EO # 0.3 103/ul Normal 0.0-0.7 [facility] Comment on above: Performed By: #### C BC #### [facility] [address] [place] [address] Dr. Prince Olivas Eosinophils/100 WBC (Bld) 3.7 % Normal 0.9-7.0 [facility] Comment on above: Performed By: #### C BC #### [facility] [address] [place] [address] Dr. Prince Olivas Erythrocyte distribution width (RBC) [Ratio] 13.4 % Normal 11.0-15.0 [facility] Comment on above: Performed By: #### C BC #### [facility] [address] [place] [address] Dr. Prince Olivas Hematocrit (Bld) [Volume fraction] 42.8 % Normal 36.0-48.0 [facility] Comment on above: Performed By: #### C BC #### [facility] [address] [place] [address] Dr. Prince Olivas Hemoglobin (Bld) [Mass/Vol] 14.1 g/dL Normal 12.0-16.0 [facility] Comment on above: Performed By: #### C BC #### [facility] [address] [place] [address] Dr. Prince Olivas IG # 0.02 10e3/ul Normal 0.00-0.03 [facility] Comment on above: Performed By: #### C BC #### [facility] [address] [place] [address] Dr. Prince Olivas IG % 0.3 % Normal 0.0-0.5 [facility] Comment on above: Performed By: #### C BC #### [facility] [address] [place] [address] Dr. Prince Olivas LYMPH # 2.0 103/ul Normal 1.2-3.8 [facility] Comment on above: Performed By: #### C BC #### [facility] [address] [place] [address] Dr. Prince Olivas Lymphocytes/100 WBC (Bld) 27.6 % Normal 20.5-60.0 [facility] Comment on above: Performed By: #### C BC #### [facility] [address] [place] [address] Dr. Prince Olivas MANUAL DIFF REQ NO Normal [facility] Comment on above: Performed By: #### C BC #### [facility] [address] [place] [address] Dr. Prince Olivas MCH (RBC) [Entitic mass] 31.4 pg Normal 26.7-34.0 [facility] Comment on above: Performed By: #### C BC #### [facility] [address] [place] [address] Dr. Prince Olivas MCHC (RBC) [Mass/Vol] 32.9 g/dL Normal 29.9-35.2 [facility] Comment on above: Performed By: #### C BC #### [facility] [address] [place] [address] Dr. Prince Olivas MCV (RBC) [Entitic vol] 95.3 fL Normal 81.0-99.0 [facility] Comment on above: Performed By: #### C BC #### [facility] [address] [place] [address] Dr. Prince Olivas MONO # 0.6 103/ul Normal 0.3-0.8 [facility] Comment on above: Performed By: #### C BC #### [facility] [address] [place] [address] Dr. Prince Olivas Monocytes/100 WBC (Bld) 8.2 % Normal 1.7-12.0 [facility] Comment on above: Performed By: #### C BC #### [facility] [address] [place] [address] Dr. Prince lOivas NEUT # 4.2 103/ul Normal 1.4-6.5 [facility] Comment on above: Performed By: #### C BC #### [facility] [address] [place] [address] Dr. Prince Olivas Neutrophils/100 WBC (Bld) 59.6 % Normal 43.0-75.0 [facility] Comment on above: Performed By: #### C BC #### [facility] [address] [place] [address] Dr. Prince Olivas Platelet mean volume (Bld) [Entitic vol] 11.1 fL Normal 9.5-13.5 [facility] Comment on above: Performed By: #### C BC #### [facility] [address] [place] [address] Dr. Prince Olivas PLT 194 103/ul Normal 150-450 [facility] Comment on above: Performed By: #### C BC #### [facility] [address] [place] [address] Dr. Prince Olivas RBC 4.49 106/ul Normal 4.20-5.40 [facility] Comment on above: Performed By: #### C BC #### [facility] [address] [place] [address] Dr. Prince Olivas WBC 7.1 103/ul Normal 4.0-11.0 [facility] Comment on above: Performed By: #### C BC #### [facility] [address] [address] [address] Prince Olivas PROF 14(COMP METB)on 022 Albumin [Mass/Vol] 3.9 g/dL Normal 3.4-5.0 [facility] Comment on above: Performed By: #### M MA2 #### [facility] [address] [address] [address] Prince Olivas Albumin/Globulin [Mass ratio] 1.4 {ratio} Normal [facility] Comment on above: Performed By: #### M MA2 #### [facility] [address] [address] [address] Prince Olivas ALP [Catalytic activity/Vol] 71 U/L Normal 46-116 [facility] Comment on above: Performed By: #### M MA2 #### [facility] [address] [place] [address] Dr. Prince Olivas ALT [Catalytic activity/Vol] 18 U/L Normal 14-59 [facility] Comment on above: Performed By: #### M MA2 #### [facility] [address] [address] [address] Prince Olivas Anion gap [Moles/Vol] 10.1 mmol/L Normal [facility] Comment on above: Performed By: #### M MA2 #### [facility] [address] [place] [address] Dr. Prince Olivas AST [Catalytic activity/Vol] 11 U/L Critically low 15-37 [facility] Comment on above: Performed By: #### M MA2 #### [facility] [address] [place] [address] Dr. Prince Olivas Bilirubin [Mass/Vol] 0.4 mg/dL Normal 0.2-1.0 [facility] Comment on above: Performed By: #### M MA2 #### [facility] [address] [place] [address] Dr. Prince Olivas Calcium [Mass/Vol] 8.8 mg/dL Normal 8.5-10.1 [facility] Comment on above: Performed By: #### M MA2 #### [facility] [address] [address] [address] Prince Olivas Chloride [Moles/Vol] 105 mmol/L Normal 98-107 [facility] Comment on above: Performed By: #### M MA2 #### [facility] [address] [address] [address] Prince Olivas CO2 [Moles/Vol] 27.0 mmol/L Normal 21.0-32.0 [facility] Comment on above: Performed By: #### M MA2 #### [facility] [address] [address] [address] Prince Olivas Creatinine [Mass/Vol] 0.67 mg/dL Normal 0.55-1.02 [facility] Comment on above: Performed By: #### M MA2 #### [facility] [address] [address] [address] Prince Olivas EGFR-AF UKRAINIAN >60 Normal >=60 [facility] Comment on above: Performed By: #### Marine MA2 #### [facility] [address] [address] [address] Prince Olivas EGFR-NON AF UKRAINIAN >60 Normal >=60 [facility] Comment on above: Performed By: #### M MA2 #### [facility] [address] [address] [address] Prince Olivas Globulin (S) [Mass/Vol] 2.7 g/dL Normal [facility] Comment on above: Performed By: #### M MA2 #### [facility] [address] [address] [address] Prince Olivas Glucose [Mass/Vol] 105 mg/dL Normal 74-106 [facility] Comment on above: Performed By: #### M MA2 #### [facility] [address] [address] [address] Prince Olivas Potassium [Moles/Vol] 4.1 mmol/L Normal 3.5-5.1 [facility] Comment on above: Performed By: #### M MA2 #### [facility] [address] [address] [address] Prince Olivas Protein [Mass/Vol] 6.6 g/dL Normal 6.4-8.2 [facility] Comment on above: Performed By: #### M MA2 #### [facility] [address] [address] [address] Prince Olivas Sodium [Moles/Vol] 138 mmol/L Normal 136-145 [facility] Comment on above: Performed By: #### M MA2 #### [facility] [address] [address] [address] Prince Olivas Urea nitrogen [Mass/Vol] 7.0 mg/dL Normal 7.0-18.0 [facility] Comment on above: Performed By: #### M MA2 #### [facility] [address] [address] [address] Prince Olivas Urea nitrogen/Creatinine [Mass ratio] 10.4 mg/mg Normal [facility] Comment on above: Performed By: #### M MA2 #### [facility] [address] [address] [address] Prince Olivas XR CHEST 1 Von [...] BARBI HENRY Date: 2021-10-04 10:58 Normal [facility] PROLACTINon 09-26-2021 Prolactin 149.0 ng/mL Critically high 4.8-23.3 [facility] Comment on above: Performed By: #### L IPID, CMP #### [facility] [address] [address] [address] Prince Olivas LIPID PROFILEon 09-25-2021 CHOL-HDL RATIO NORM SEE BELOW Normal [facility] Comment on above: Result Comment: 3.3 - 4.4 LOW RISK 4.4 - 7.1 AVERAGE RISK 7.1 - 11.0 MODERATE RISK >11.0 HIGH RISK Performed By: #### L IPID, CMP #### [facility] [address] [address] [address] Prince Olivas Cholesterol [Mass/Vol] 205 mg/dL Critically high <=200 [facility] Comment on above: Performed By: #### L IPID, CMP #### [facility] [address] [address] [address] Prince Olivas Cholesterol in HDL [Mass/Vol] 46 mg/dL Normal 40-60 [facility] Comment on above: Performed By: #### L IPID, CMP #### [facility] [address] [address] [address] Prince Olivas Cholesterol in LDL [Mass/Vol] 148.6 mg/dL Normal [facility] Comment on above: Performed By: #### L IPID, CMP #### [facility] [address] [place] [address] Dr. Prince Olivas Cholesterol.total/C holesterol in HDL [Mass ratio] 4.5 {ratio} Normal [facility] Comment on above: Performed By: #### L IPID, CMP #### [facility] [address] [place] [address] Dr. Prince Olivas HDL NORMAL > or = 60 mg/dl - LO W CARDIOVASCULAR RISK <40 mg/dl - HIGH CARDIOVASCULAR RISK Normal [facility] Comment on above: Performed By: #### L IPID, CMP #### [facility] [address] [place] [address] Dr. Pirnce Olivas LDL CALC NORMAL SEE BELOW Normal [facility] Comment on above: Result Comment: <100 mg/dl OPTIMAL 100 - 129 mg/dl NEAR OR ABOVE OPTIMAL 130 - 159 mg/dl BORDERLINE HIGH 160 - 189 mg/dl HIGH >190 mg/dl VERY HIGH Performed By: #### L IPID, CMP #### [facility] [address] [address] [address] Prince Olivas Triglyceride [Mass/Vol] 52 mg/dL Normal <=150 [facility] Comment on above: Performed By: #### L IPID, CMP #### [facility] [address] [place] [address] Dr. Prince Olivas VLDL CALC 10.4 mg/dL Normal [facility] Comment on above: Performed By: #### L IPID, CMP #### [facility] [address] [place] [address] Dr. Prince Olivas PROF 14(COMP METB)on 022 Albumin [Mass/Vol] 3.7 g/dL Normal 3.4-5.0 [facility] Comment on above: Performed By: #### L IPID, CMP #### [facility] [address] [place] [address] Dr. Prince Olivas Albumin/Globulin [Mass ratio] 1.5 {ratio} Normal [facility] Comment on above: Performed By: #### L IPID, CMP #### [facility] [address] [place] [address] Dr. Prince Olivas ALP [Catalytic activity/Vol] 66 U/L Normal 46-116 [facility] Comment on above: Performed By: #### L IPID, CMP #### [facility] [address] [place] [address] Dr. Prince Olivas ALT [Catalytic activity/Vol] 14 U/L Normal 14-59 [facility] Comment on above: Performed By: #### L IPID, CMP #### [facility] [address] [place] [address] Dr. Prince Olivas Anion gap [Moles/Vol] 13.8 mmol/L Normal [facility] Comment on above: Performed By: #### L IPID, CMP #### [facility] [address] [place] [address] Dr. Prince Olivas AST [Catalytic activity/Vol] 10 U/L Critically low 15-37 [facility] Comment on above: Performed By: #### L IPID, CMP #### [facility] [address] [place] [address] Dr. Prince Olivas Bilirubin [Mass/Vol] 0.3 mg/dL Normal 0.2-1.0 [facility] Comment on above: Performed By: #### L IPID, CMP #### [facility] [address] [address] [address] Prince Olivas Calcium [Mass/Vol] 8.9 mg/dL Normal 8.5-10.1 [facility] Comment on above: Performed By: #### L IPID, CMP #### [facility] [address] [address] [address] Prince Olivas Chloride [Moles/Vol] 106 mmol/L Normal 98-107 [facility] Comment on above: Performed By: #### L IPID, CMP #### [facility] [address] [address] [address] Prince Olivas CO2 [Moles/Vol] 24.0 mmol/L Normal 21.0-32.0 [facility] Comment on above: Performed By: #### L IPID, CMP #### [facility] [address] [place] [address] Dr. Prince Olivas Creatinine [Mass/Vol] 1.05 mg/dL Critically high 0.55-1.02 [facility] Comment on above: Performed By: #### L IPID, CMP #### [facility] [address] [place] [address] Dr. Prince Olivas EGFR-AF UKRAINIAN >60 Normal >=60 [facility] Comment on above: Performed By: #### L IPID, CMP #### [facility] [address] [place] [address] Dr. Prince Olivas EGFR-NON AF UKRAINIAN 55 mL/min/1.73m2 Critically low >=60 [facility] Comment on above: Performed By: #### L IPID, CMP #### [facility] [address] [place] [address] Dr. Prince Olivas Globulin (S) [Mass/Vol] 2.5 g/dL Normal [facility] Comment on above: Performed By: #### L IPID, CMP #### [facility] [address] [address] [address] Prince Olivas Glucose [Mass/Vol] 107 mg/dL Critically high 74-106 [facility] Comment on above: Performed By: #### L IPID, CMP #### [facility] [address] [address] [address] Prince Olivas Potassium [Moles/Vol] 3.8 mmol/L Normal 3.5-5.1 [facility] Comment on above: Performed By: #### L IPID, CMP #### [facility] [address] [place] [address] Dr. Prince Olivas Protein [Mass/Vol] 6.2 g/dL Critically low 6.4-8.2 [facility] Comment on above: Performed By: #### L IPID, CMP #### [facility] [address] [address] [address] Prince Olivas Sodium [Moles/Vol] 140 mmol/L Normal 136-145 [facility] Comment on above: Performed By: #### L IPID, CMP #### [facility] [address] [place] [address] Dr. Prince Olivas Urea nitrogen [Mass/Vol] 10.0 mg/dL Normal 7.0-18.0 [facility] Comment on above: Performed By: #### L IPID, CMP #### [facility] [address] [place] [address] Dr. Prince Olivas Urea nitrogen/Creatinine [Mass ratio] 9.5 mg/mg Normal [facility] Comment on above: Performed By: #### L IPID, CMP #### [facility] [address] [place] [address] Dr. Prince Olivas Vital Signs Date Time Vital Sign Value Performing Clinician Facility 03-23-2024 13:10-0500 Blood Pressure Location Sandoval Rae [facility] 03-23-2024 13:10-0500 Diastolic blood pressure 70 mm[Hg] Sandoval Rae [facility] 03-23-2024 13:10-0500 Heart rate 96 /min Sandoval Rae [facility] 03-23-2024 13:10-0500 Systolic blood pressure 102 mm[Hg] Mohamad Mouchli [facility] 02-25-2024 11:16-0500 Diastolic blood pressure 64 mm[Hg] Mohamad Mouchli [facility] 02-25-2024 11:16-0500 Heart rate 71 /min Mohamad Mouchli [facility] 02-25-2024 11:16-0500 Mean blood pressure 80 mm[Hg] Mohamad Mouchli [facility] 02-25-2024 11:16-0500 Respiratory rate 10 /min Mohamad Mouchli [facility] 02-25-2024 11:16-0500 SaO2% (BldA) [Mass fraction] 96 % Mohamad Mouchli [facility] 02-25-2024 11:16-0500 Systolic blood pressure 113 mm[Hg] Mohamad Mouchli [facility] 02-25-2024 11:05-0500 Diastolic blood pressure 75 mm[Hg] Mohamad Mouchli [facility] 02-25-2024 11:05-0500 Heart rate 73 /min Mohamad Mouchli [facility] 02-25-2024 11:05-0500 Mean blood pressure 86 mm[Hg] Mohamad Mouchli [facility] 02-25-2024 11:05-0500 Respiratory rate 18 /min Mohamad Mouchli [facility] 02-25-2024 11:05-0500 SaO2% (BldA) [Mass fraction] 95 % Mohamad Mouchli [facility] 02-25-2024 11:05-0500 Systolic blood pressure 107 mm[Hg] Mohamad Mouchli [facility] 02-25-2024 10:51-0500 Body temperature 98.24 [degF] Mohamad Mouchli [facility] 02-25-2024 10:51-0500 Diastolic blood pressure 92 mm[Hg] Mohamad Mouchli [facility] 02-25-2024 10:51-0500 Heart rate 81 /min Mohamad Mouchli [facility] 02-25-2024 10:51-0500 Mean blood pressure 96 mm[Hg] Mohamad Mouchli [facility] 02-25-2024 10:51-0500 Respiratory rate 18 /min Mohamad Mouchli [facility] 02-25-2024 10:51-0500 SaO2% (BldA) [Mass fraction] 97 % Mohamad Mouchli [facility] 02-25-2024 10:51-0500 Systolic blood pressure 103 mm[Hg] Mohamad Mouchli [facility] 02-25-2024 10:45-0500 Respiratory rate 15 /min Mohamad Mouchli [facility] 02-25-2024 10:40-0500 Respiratory rate 16 /min Mohamad Mouchli [facility] 02-25-2024 10:35-0500 Respiratory rate 17 /min Mohamad Mouchli [facility] 02-25-2024 09:14-0500 Blood Pressure Location Mohamad Mouchli [facility] 02-25-2024 09:14-0500 Body temperature 97.88 [degF] Mohamad Mouchli [facility] 02-21-2024 08:41-0500 Blood Pressure Location Mohamad Mouchli [facility] 02-21-2024 08:41-0500 Diastolic blood pressure 83 mm[Hg] Mohamad Mouchli [facility] 02-21-2024 08:41-0500 Heart rate 80 /min Mohamad Mouchli [facility] 02-21-2024 08:41-0500 Systolic blood pressure 134 mm[Hg] Mohamad Mouchli [facility] 01-16-2024 10:08-0400 Blood Pressure Location Mohamad Mouchli [facility] 01-16-2024 10:08-0400 Diastolic blood pressure 76 mm[Hg] Mohamad Mouchli [facility] 01-16-2024 10:08-0400 Heart rate 73 /min Mohamad Mouchli [facility] 01-16-2024 10:08-0400 Systolic blood pressure 116 mm[Hg] Mohamad Mouchli [facility] 09-24-2023 15:00-0400 Diastolic blood pressure 78 mm[Hg] José Luis Resendiz [facility] 09-24-2023 15:00-0400 Heart rate 66 /min José Luis Resendiz [facility] 09-24-2023 15:00-0400 Mean blood pressure 95 mm[Hg] José Luis Astrid [facility] 09-24-2023 15:00-0400 Respiratory rate 16 /min José Luis Moee [facility] 09-24-2023 15:00-0400 Systolic blood pressure 128 mm[Hg] José Luis Moee [facility] 09-24-2023 14:00-0400 Diastolic blood pressure 69 mm[Hg] José Luis Moee [facility] 09-24-2023 14:00-0400 Heart rate 75 /min José Luis Moee [facility] 09-24-2023 14:00-0400 Mean blood pressure 88 mm[Hg] José Luis Moee [facility] 09-24-2023 14:00-0400 SaO2% (BldA) [Mass fraction] 95 % José Luis Moee [facility] 09-24-2023 14:00-0400 Systolic blood pressure 126 mm[Hg] José Luis Moee [facility] 09-24-2023 12:58-0400 Body temperature 98.06 [degF] José Luis Moee [facility] 09-24-2023 12:58-0400 Diastolic blood pressure 82 mm[Hg] José Luis Moee [facility] 09-24-2023 12:58-0400 Heart rate 89 /min José Luis Moee [facility] 09-24-2023 12:58-0400 Respiratory rate 18 /min José Luis Moee [facility] 09-24-2023 12:58-0400 SaO2% (BldA) [Mass fraction] 96 % José Luis Moee [facility] 09-24-2023 12:58-0400 Systolic blood pressure 125 mm[Hg] José Luis Resendiz [facility] 04-04-2022 15:50-0500 Diastolic blood pressure 70 mm[Hg] Tiffani Morales MD Work Phone: [facility] 04-04-2022 15:50-0500 Heart rate 73 /min Tiffani Morales MD Work Phone: [facility] 04-04-2022 15:50-0500 Respiratory rate 16 /min Tiffani Morales MD Work Phone: [facility] 04-04-2022 15:50-0500 SaO2% (BldA) [Mass fraction] 97 % Tiffani Morales MD Work Phone: [facility] 04-04-2022 15:50-0500 Systolic blood pressure 117 mm[Hg] Tiffani Morales MD Work Phone: [facility] 04-04-2022 15:26-0500 Body temperature 97.2 [degF] Tiffani Morales MD Work Phone: [facility] 04-04-2022 12:51-0500 Body height 172.7 cm Tiffani Morales MD Work Phone: [facility] 04-04-2022 12:51-0500 Body weight 45.81 kg Tiffani Morales MD Work Phone: [facility] 01-01-2022 16:50-0400 Diastolic blood pressure 69 mm[Hg] Tiffani Morales MD Work Phone: [facility] 01-01-2022 16:50-0400 Heart rate 69 /min Tiffani Morales MD Work Phone: [facility] 01-01-2022 16:50-0400 Respiratory rate 16 /min Tiffani Morales MD Work Phone: [facility] 01-01-2022 16:50-0400 SaO2% (BldA) [Mass fraction] 95 % Tiffani Morales MD Work Phone: [facility] 01-01-2022 16:50-0400 Systolic blood pressure 110 mm[Hg] Tiffani Morales MD Work Phone: [facility] 01-01-2022 16:33-0400 Body temperature 98.1 [degF] Tiffani Morales MD Work Phone: [facility] 01-01-2022 15:39-0400 Body height 172.7 cm Tiffani Morales MD Work Phone: [facility] 01-01-2022 15:39-0400 Body weight 45.81 kg Tiffani Morales MD Work Phone: [facility] 06-20-2021 13:37-0400 Body height 174 cm Robb Evans MD Work Phone: [facility] 06-20-2021 13:37-0400 Body mass index (BMI) [Ratio] 17.98 kg/m2 Robb Evans MD Work Phone: [facility] 06-20-2021 13:37-0400 Body weight 54.43 kg Robb Evans MD Work Phone: [facility] 06-20-2021 13:37-0400 Diastolic blood pressure 69 mm[Hg] Robb Evans MD Work Phone: [facility] 06-20-2021 13:37-0400 Heart rate 77 /min Robb Evans MD Work Phone: [facility] 06-20-2021 13:37-0400 Respiratory rate 16 /min Robb Evans MD Work Phone: [facility] 06-20-2021 13:37-0400 SaO2% (BldA) [Mass fraction] 95 % Robb Evans MD Work Phone: [facility] 06-20-2021 13:37-0400 Systolic blood pressure 102 mm[Hg] Robb Evans MD Work Phone: [facility] 07-18-2020 14:10-0400 Body height 174 cm Upender Gehlot MD Work Phone: [facility] 07-18-2020 14:10-0400 Body mass index (BMI) [Ratio] 17.38 kg/m2 Robb Evans MD Work Phone: [facility] 07-18-2020 14:10-0400 Body weight 52.62 kg Robb Evans MD Work Phone: [facility] 07-18-2020 14:10-0400 Diastolic blood pressure 68 mm[Hg] Robb Evans MD Work Phone: [facility] 07-18-2020 14:10-0400 Heart rate 84 /min Robb Evans MD Work Phone: [facility] 07-18-2020 14:10-0400 Respiratory rate 16 /min Robb Evans MD Work Phone: [facility] 07-18-2020 14:10-0400 SaO2% (BldA) [Mass fraction] 96 % Robb Evans MD Work Phone: [facility] 07-18-2020 14:10-0400 Systolic blood pressure 94 mm[Hg] Robb Evans MD Work Phone: [facility] Encounters Encounter Date Encounter Type Care Provider Facility Start: 03-23-2024 End: 03-23-2024 ambulatory Sandoval Rae Facility:[facility] Start: 03-23-2024 End: 03-23-2024 Patient encounter procedure Sandoval Rae [facility] Start: 03-15-2024 End: 03-15-2024 ambulatory Eligio Noe Facility:[facility] Start: 02-25-2024 End: 02-25-2024 ambulatory Sandoval Rae Facility:[facility] Start: 02-25-2024 End: 02-25-2024 Patient encounter procedure Sandoval Rae [facility] Start: 02-21-2024 End: 02-21-2024 [facility]ulatory [facility] Start: 02-21-2024 End: 02-21-2024 Patient encounter procedure Mohamad A. Mouchli [facility] Start: 02-18-2024 End: 02-18-2024 ambulatory Lala L Carolee [facility] Start: 02-05-2024 End: 02-05-2024 ambulatory [facility] Start: 02-05-2024 End: 02-05-2024 Patient encounter procedure Mohamad A. Mouchli [facility] Start: 01-27-2024 End: 01-27-2024 ambulatory Mohamad A. Mouchli Facility:[facility] Start: 01-27-2024 End: 01-27-2024 Patient encounter procedure Mohamad A. Mouchli [facility] Start: 01-16-2024 End: 01-16-2024 ambulatory [facility] Start: 01-16-2024 End: 01-16-2024 Patient encounter procedure Mohamad A. Mouchli [facility] Start: 11-26-2023 End: 11-26-2023 ambulatory Lala L Carolee [facility] Start: 10-03-2023 End: 10-03-2023 ambulatory Lala L Carolee [facility] Start: 09-27-2023 ambulatory CHANCE ZACH Facility:[facility] Start: 09-24-2023 End: 09-24-2023 Emergency department patient visit José Luis Resendiz [facility] Start: 05-08-2022 Telephone encounter Tiffani valencia MD Work Phone: Gastroenterology Comment on above: Patient Question Start: 05-07-2022 End: 05-08-2022 ambulatory IRINA SEGURA Facility:[facility] Start: 04-24-2022 End: 04-24-2022 ambulatory CRISTINA ALEE IQBAL Facility:[facility] Start: 04-24-2022 End: 04-24-2022 Nutrition therapy Tiffani Morales MD Work Phone: Gastroenterology Comment on above: Severe malnutrition (HCC) (Primary Dx) Start: 04-24-2022 End: 04-24-2022 Telemedicine consultation with patient Tiffani Morales MD Work Phone: [facility] Start: 04-20-2022 Refill Robb Evans MD Work Phone: [facility] Start: 04-12-2022 Refill Saúl SHORT [facility] Comment on above: Generalized anxiety disorder Start: 04-05-2022 Telephone encounter Tiffani valencia MD Work Phone: Gastroenterology Comment on above: Refill Request Start: 04-04-2022 End: 04-04-2022 ambulatory FREDERICK CHAVES Facility:[facility] Start: 04-04-2022 End: 04-04-2022 Subsequent hospital visit by physician Tiffani Morales MD Work Phone: Gastroenterology Comment on above: 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] Start: 03-31-2022 End: 04-01-[address] DOCTOR BERMEO Facility:[facility] Start: 03-28-2022 End: 03-29-[address] BRITNI SIMPSON Facility:[facility] Start: 03-28-2022 Telephone encounter Eduardo Harrington RNnight shift Comment on above: Appointment Confirma tion Start: 03-20-2022 Refill Saúl SHORT [facility] Start: 03-14-2022 Refill Anastasiya Steviedomi PA-C Work Phone: Gastroenterology Comment on above: Refill Request Start: 03-09-2022 Refill Gokul Maurilio Alexis [facility] Comment on above: Generalized anxiety disorder Start: 03-01-2022 End: 03-01-2022 ambulatory [facility]STINA [facility] Facility:[facility] Start: 03-01-2022 End: 03-01-2022 Nutrition therapy Tiffani Morales MD Work Phone: Gastroenterology Comment on above: Severe protein-calor ie malnutrition (HCC) (Primary Dx); 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 Start: 02-07-2022 ambulatory Yan wood MD Work Phone: Gastroenterology Start: 02-07-2022 Patient encounter procedure Yan Garcia Jr., MD Work Phone: [facility] Start: 02-07-2022 Refill Anastasiya Ovidioi PA-C Work Phone: Gastroenterology Comment on above: Refill Request Start: 02-06-2022 End: 02-07-2022 ambulatory [facility]RISTINA [facility] Facility:[facility] Start: 02-05-2022 End: 02-05-2022 ambulatory [facility]RISTINA [facility] Facility:[facility] Start: 01-29-2022 ambulatory Dolores Lopez RN [facility]ast[facility] Start: 01-29-2022 Patient encounter procedure Dolores Lopez RN [facility] Start: 01-29-2022 End: 01-29-2022 Subsequent hospital visit by physician Capsule Work Phone: Gastroenterology Comment on above: Arrived Start: 01-17-2022 ambulatory Roshni Reyes ty:Thuy ELLIOTT Start: 01-16-2022 Refill Gokul Maurilio CAMPBELL [facility] Start: 01-05-2022 Telephone encounter Anastasiya Acevesshantell kimbrough PA-C Work Phone: Gastroenterology Comment on above: Patient Question; Re turning Patient's Call; Results Nausea (Primary Dx); Weight loss; Small bowel polyp Results (Post-EGD) Start: 01-03-2022 Telephone encounter Anastasiya Acevesshantell kimbrough PA-C Work Phone: Gastroenterology Comment on above: Results Start: 01-02-2022 Telephone encounter Anastasiya Acevesshantell weberi PA-C Work Phone: [facility] Comment on above: Results Start: 01-01-2022 End: 01-01-2022 ambulatory KIRSTEN Srini DALTON Facility:[facility] Start: 01-01-2022 End: 01-01-2022 Subsequent hospital visit by physician Tiffani Morales MD Work Phone: Gastroenterology Comment on above: Nausea and vomiting, unspecified vomiting type [R11.2] Start: 12-25-2021 Telephone encounter iRma Gerard RNnight shift Comment on above: Appointment Start: 12-19-2021 End: 12-19-2021 ambulatory CRISTINA Saleh [facility] Start: 12-15-2021 End: 12-16-2021 ambulatory Anastasiya Mosqueda PA-C Work Phone: Gastroenterology Comment on above: Nausea and vomiting, unspecified vomiting type (Primary Dx); Left upper quadrant abdominal pain; Weight loss Start: 12-15-2021 End: 12-15-2021 Telemedicine consultation with patient Anastasiya Aceveschandler PA-C Work Phone: [facility] Start: 12-14-2021 End: 12-14-2021 ambulatory ANASTASIYA MOSQUEDA Facility:[facility] Start: 12-14-2021 End: 12-14-2021 Patient encounter procedure Anastasiya Jaylin PA-C Work Phone: Gastroenterology Comment on above: APPOINTMENT CANCELLE D (Primary Dx) Start: 12-14-2021 End: 12-14-2021 Telemedicine consultation with patient Anastasiya Mosqueda JEFFDeyaOsbaldo Work Phone: [facility] Start: 12-13-2021 Telephone encounter Anastasiya kimbrough JEFFDeyaOsbaldo Work Phone: Gastroenterology Comment on above: Appointment Start: 12-11-2021 End: 12-11-2021 ambulatory MINE CAR DISPATCHER CRISTINA IQBAL Facility:[facility] Start: 12-03-2021 End: 12-03-2021 Emergency department patient visit Vipin Pina Facility[facility] Start: 11-14-2021 End: 11-14-2021 ambulatory MINE CAR DISPATCHER CRISTINA ROGER Facility:[facility] Start: 11-09-2021 End: 11-09-2021 ambulatory MINE CAR DISPATCHER CRISTINA ROGER Facility:[facility] Start: 10-04-2021 End: 10-04-2021 ambulatory MINE CAR DISPATCHER CRISTINA IQBAL Facility:[facility] Start: 10-03-2021 Refill Robb Evans MD Work Phone: [facility] Start: 09-27-2021 Documentation procedure Zuleyma Evans MD Work Phone: [facility] Start: 09-25-2021 End: 09-26-2021 ambulatory ROBB EVANS Facility:[facility] Start: 09-19-2021 End: 09-19-2021 [facility] Start: 09-19-2021 End: 09-19-2021 Office outpatient visit 25 minutes Robb Evans MD Work Phone: [facility] Comment on above: Bipolar 1 disorder, mixed, mild (HCC) (Primary Dx); Generalized anxiety disorder; Long-term use of high-risk medication Start: 09-15-2021 Refill Fartun Mack LPN [facility] Comment on above: Generalized anxiety disorder Start: 06-20-2021 End: 06-20-2021 ambulatory [facility] Start: 06-20-2021 End: 06-20-2021 Office outpatient visit 25 minutes Robb Evans MD Work Phone: [facility] Comment on above: Generalized anxiety disorder (Primary Dx); Bipolar 1 disorder, mixed, mild (HCC); Long-term use of high-risk medication; Post traumatic stress disorder (PTSD) Start: 04-03-2021 Refill [facility] Maurilio ADRIAN [facility] Comment on above: Generalized anxiety disorder Start: 03-01-2021 End: 03-01-2021 Phys/qhp telephone evaluation 11-20 min Upobdulio Evans MD Work Phone: [facility] Comment on above: Bipolar 1 disorder, mixed, mild (HCC) (Primary Dx); Generalized anxiety disorder; Long-term use of high-risk medication Start: 03-01-2021 End: 03-01-2021 [facility] Start: 01-31-2021 Refill [facility] Maurilio [facility] Comment on above: Generalized anxiety disorder Start: 12-29-2020 Refill [facility] Maurilio [facility] Comment on above: Generalized anxiety disorder Start: 08-22-2020 End: 08-22-2020 Phys/qhp telephone evaluation 11-20 min Robb Evans MD Work Phone: [facility] Comment on above: 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); Generalized anxiety disorder; Long-term use of high-risk medication Start: 07-18-2020 End: 07-18-2020 Office outpatient visit 25 minutes Robb Evans MD Work Phone: [facility] Comment on above: Generalized anxiety disorder (Primary Dx); Moderate mixed bipolar I disorder (HCC); Long-term use of high-risk medication Procedures Date Procedure Procedure Detail Performing Clinician Start: 02-25-2024 Esophagogastroduodenoscopy Sandoval oneal Start: 04-04-2022 Endoscopy upper small intestine Tiffani Morales MD Work Phone: Start: 01-01-2022 Esophagogastroduodenoscopy transoral diagnostic Anastasiya Mosqueda PA-C Work Phone: Start: 05-08-2019 Colonoscopy Gokul Montoya MA Start: 05-08-2019 Colonoscopy José Luis Resendiz Comment [...] Appendectomy José Luis Resendiz section José Luis calderon Cholecystectomy José Luis Resendiz Foot repair José Luis Resendiz H/O: surgery History of abdom inal surgery Sandoval Rae History of cholecystectomy S/P cholecyste ctomy Sandoval Rae Oral surgery (qualifier value) José Luis Resendiz Total hysterectomy José Luis nolasco Plan of Treatment Date Care Activity Detail Author Start: 05-08-2029 Screening for malign ant neoplasm of colon [facility] Start: 04-27-2022 End: 04-27-2022 Patient encounter procedure 04/27/2022 Office Visit Psychiatry Robb Evans MD [address] [facility] [address] [id number] [facility] Start: 03-26-2022 End: 03-26-2022 Patient encounter procedure 03/26/2022 Office Visit Robb Patton MD [address] [place] [id number] [facility] Start: 03-18-2022 DEPRESSION ASSESSMENT DEPRESSION ASS ESSMENT [facility] Start: 03-02-2022 End: 03-01-2023 25-hydroxyvitamin D3 [Mass/volume] in Serum or Plasma VITAMIN D 25 HYDROXY Lab Routine Severe protein-calorie malnutrition (HCC) Expected: 03/02/2022 (Approximate), Expires: 03/01/[address] [facility] Work Phone: Comment on above: Expected: 03/02/2022 (Approximate), Expires: 03/01/2023 Start: 03-02-2022 End: 03-01-2023 Alpha tocopherol [Mass/volume] in Serum or Plasma VITAMIN E/TOCOPHEROL Lab Routine Severe protein-calorie malnutrition (HCC) Expected: 03/02/2022 (Approximate), Expires: 03/01/[address] [facility] Work Phone: Comment on above: Expected: 03/02/2022 (Approximate), Expires: 03/01/2023 Start: 03-02-2022 End: 03-01-2023 C reactive protein [Mass/volume] in Serum or Plasma C-REACTIVE PROTEIN (CRP) Lab Routine Severe protein-calorie malnutrition (HCC) Expected: 03/02/2022 (Approximate), Expires: 03/01/[address] [facility] Work Phone: Comment on above: Expected: 03/02/2022 (Approximate), Expires: 03/01/2023 Start: 03-02-2022 End: 03-01-2023 CBC W Auto Differential panel - Blood CBC + DIFF Lab Routine Severe protein-calorie malnutrition (HCC) Expected: 03/02/2022 (Approximate), Expires: 03/01/[address] [facility] Work Phone: Comment on above: Expected: 03/02/2022 (Approximate), Expires: 03/01/2023 Start: 03-02-2022 End: 03-01-2023 Cobalamin (Vitamin B12) [Mass/volume] in Serum or Plasma VITAMIN B12 BLOOD Lab Routine Severe protein-calorie malnutrition (HCC) Expected: 03/02/2022 (Approximate), Expires: 03/01/[address] [facility] Work Phone: Comment on above: Expected: 03/02/2022 (Approximate), Expires: 03/01/2023 Start: 03-02-2022 End: 03-01-2023 Comprehensive metabolic 2000 panel - Serum or Plasma COMP METABOLIC PANEL Lab Routine Severe protein-calorie malnutrition (HCC) Expected: 03/02/2022 (Approximate), Expires: 03/01/[address] [facility] Work Phone: Comment on above: Expected: 03/02/2022 (Approximate), Expires: 03/01/2023 Start: 03-02-2022 End: 03-01-2023 COPPER BLOOD COPPER BLOOD Lab Routine Severe protein-calorie malnutrition (HCC) Expected: 03/02/2022 (Approximate), Expires: 03/01/[address] [facility] Work Phone: Comment on above: Expected: 03/02/2022 (Approximate), Expires: 03/01/2023 Start: 03-02-2022 End: 03-01-2023 FATTY ACIDS PROFILE, ESSENTIAL FATTY ACIDS PROFILE, ESSENTIAL Lab Routine Severe protein-calorie malnutrition (HCC) Expected: 03/02/2022 (Approximate), Expires: 03/01/[address] [facility] Work Phone: Comment on above: Expected: 03/02/2022 (Approximate), Expires: 03/01/2023 Start: 03-02-2022 End: 03-01-2023 Ferritin [Mass/volume] in Serum or Plasma FERRITIN BLD Lab Routine Severe protein-calorie malnutrition (HCC) Expected: 03/02/2022 (Approximate), Expires: 03/01/[address] [facility] Work Phone: Comment on above: Expected: 03/02/2022 (Approximate), Expires: 03/01/2023 Start: 03-02-2022 End: 03-01-2023 Iron and Iron binding capacity panel - Serum or Plasma IRON + TIBC Lab Routine Severe protein-calorie malnutrition (HCC) Expected: 03/02/2022 (Approximate), Expires: 03/01/[address] [facility] Work Phone: Comment on above: Expected: 03/02/2022 (Approximate), Expires: 03/01/2023 Start: 03-02-2022 End: 03-01-2023 Magnesium [Mass/volume] in Serum or Plasma MAGNESIUM BLD Lab Routine Severe protein-calorie malnutrition (HCC) Expected: 03/02/2022 (Approximate), Expires: 03/01/[address] [facility] Work Phone: Comment on above: Expected: 03/02/2022 (Approximate), Expires: 03/01/2023 Start: 03-02-2022 End: 03-01-2023 Methylmalonate [Moles/volume] in Serum or Plasma METHYLMALONIC ACID Lab Routine Severe protein-calorie malnutrition (HCC) Expected: 03/02/2022 (Approximate), Expires: 03/01/[address] [facility] Work Phone: Comment on above: Expected: 03/02/2022 (Approximate), Expires: 03/01/2023 Start: 03-02-2022 End: 03-01-2023 Phosphate [Mass/volume] in Serum or Plasma PHOSPHORUS INORGANIC Lab Routine Severe protein-calorie malnutrition (HCC) Expected: 03/02/2022 (Approximate), Expires: 03/01/[address] [facility] Work Phone: Comment on above: Expected: 03/02/2022 (Approximate), Expires: 03/01/2023 Start: 03-02-2022 End: 03-01-2023 PT panel - Platelet poor plasma by Coagulation assay PROTHROMBIN TIME/PT Lab Routine Severe protein-calorie malnutrition (HCC) Expected: 03/02/2022 (Approximate), Expires: 03/01/[address] [facility] Work Phone: Comment on above: Expected: 03/02/2022 (Approximate), Expires: 03/01/2023 Start: 03-02-2022 End: 03-01-2023 RBC FOLATE RBC FOLATE Lab Routine Severe protein-calorie malnutrition (HCC) Expected: 03/02/2022 (Approximate), Expires: 03/01/[address] [facility] Work Phone: Comment on above: Expected: 03/02/2022 (Approximate), Expires: 03/01/2023 Start: 03-02-2022 End: 03-01-2023 Retinol [Mass/volume] in Serum or Plasma VITAMIN A/RETINOL Lab Routine Severe protein-calorie malnutrition (HCC) Expected: 03/02/2022 (Approximate), Expires: 03/01/[address] [facility] Work Phone: Comment on above: Expected: 03/02/2022 (Approximate), Expires: 03/01/2023 Start: 03-02-2022 End: 03-01-2023 Selenium [Mass/volume] in Blood SELENIUM BLOOD Lab Routine Severe protein-calorie malnutrition (HCC) Expected: 03/02/2022 (Approximate), Expires: 03/01/[address] [facility] Work Phone: Comment on above: Expected: 03/02/2022 (Approximate), Expires: 03/01/2023 Start: 03-02-2022 End: 03-01-2023 Triglyceride [Mass/volume] in Serum or Plasma TRIGLYCERIDES BLD Lab Routine Severe protein-calorie malnutrition (HCC) Expected: 03/02/2022 (Approximate), Expires: 03/01/[address] [facility] Work Phone: Comment on above: Expected: 03/02/2022 (Approximate), Expires: 03/01/2023 Start: 03-02-2022 End: 03-01-2023 Zinc [Mass/volume] in Serum or Plasma ZINC BLD Lab Routine Severe protein-calorie malnutrition (HCC) Expected: 03/02/2022 (Approximate), Expires: 03/01/[address] [facility] Work Phone: Comment on above: Expected: 03/02/2022 (Approximate), Expires: 03/01/2023 Start: 12-19-2021 End: 12-19-2021 Patient encounter procedure 12/19/2021 Office Visit Psychiatry Robb Evans MD [address] [place] [id number] [facility] Start: 11-16-2021 Influenza vaccination [facility] Start: 09-19-2021 End: 09-19-2021 Patient encounter procedure 09/19/2021 Office Visit Psychiatry Robb Evans MD [address] [facility] [address] [place] [id number] [facility] Start: 09-15-2021 End: 09-15-2021 Patient encounter procedure 09/15/2021 Office Visit Psychiatry Robb Evans MD [address] [facility] [address] [place] [id number] [facility] Start: 05-30-2021 End: 05-30-2021 Patient encounter procedure 05/30/2021 Office Visit Psychiatry Robb Evans MD [address] [facility] [address] [place] [id number] [facility] Start: 03-18-2021 DEPRESSION ASSESSMENT DEPRESSION ASS [facility] Start: 02-17-2021 End: 02-17-2021 Patient encounter procedure 02/17/2021 Office Visit Psychiatry Robb Evans MD [address] [facility] [address] [place] [id number] [facility] Start: 02-03-2021 End: 02-03-2021 Patient encounter procedure 02/03/2021 Office Visit Robb Patton MD [address] [facility] [address] [place] [id number] [facility] Start: 11-16-2020 Influenza vaccination [facility] Start: 10-28-2020 End: 10-28-2020 Patient encounter procedure 10/28/2020 Office Visit Psychiatry Robb Evans MD [address] [place] [address] [phone] [facility] Start: 2020 Administration of he rpes zoster vaccine Zoster Vaccines (1 of 2) [facility] Start: 2020 Screening for malign ant neoplasm of colon [facility] Start: 2020 SHINGRIX VACCINE (1 of 2) SHINGRIX VACCINE (1 of 2) [facility] Start: 08-22-2020 End: 08-22-2020 Telemedicine consultation with patient 08/22/2020 Telemedicine Psychiatry Robb Evans MD [address] [place] [address] [phone] [facility] Start: 10-07-2015 COLOGUARD (FIT-DNA) COLOGUARD (FIT-D NA) [facility] Start: 10-07-2015 Colonoscopy COLONOSCOPY [facility] Start: 10-07-2015 COLORECTAL CANCER SCREENING COLORECTAL CANCER SCREENING [facility] Start: 10-07-[address] COLONOGRAPHY [facility] Start: 10-07-2015 DIABETES SCREEN DIABETES SCREEN [facility] Start: 10-07-2015 FECAL OCCULT BLOOD FECAL OCCULT BLOO D [facility] Start: 10-07-2015 LIPID SCREEN LIPID SCREEN [facility] Start: 10-07-2015 SIGMOIDOSCOPY SIGMOIDOSCOPY [facility] Start: 01-02-2015 PAP TESTING PAP TESTING [facility] Start: 2010 Mammography MAMMOGRAM [facility] Start: 2010 Screening for malign ant neoplasm of breast Mammogram [facility] Start: 2010 Screening mammography Mammogram [facility] Start: 2000 HPV TESTING HPV TESTING [facility] Start: 1989 Urine microalbumin profile DTAP,TDAP,TD (1 - Tdap) [facility] Start: 1988 Hepatitis C screening Hepatitis C Sc reening [facility] Start: 1988 HIV SCREENING HIV SCREENING [facility] Start: 1986 COVID-19 Vaccine (1) COVID-19 Vaccin e (1) [facility] Start: 1985 HIV screening HIV Screening [facility] Start: 1982 COVID-19 Vaccine (1) COVID-19 Vaccin e (1) [facility] Start: 1976 PNEUMOCOCCAL (1 - PCV) PNEUMOCOCCAL (1 - PCV) [facility] Start: 1976 Pneumococcal Vaccine : Ped or At-Risk (1 - PCV) Pneumococcal Vaccine: Ped or At-Risk (1 - PCV) [facility] Start: 1976 Pneumococcal Vaccine : Ped or At-Risk (1 of 2 - PPSV23) Pneumococcal Vaccine: Ped or At-Risk (1 of 2 - PPSV23) [facility] Start: 1976 Pneumococcal Vaccine : Ped or At-Risk (1 of 4 - PCV13) Pneumococcal Vaccine: Ped or At-Risk (1 of 4 - PCV13) [facility] Start: 10-07-1975 COVID-19 Vaccine (1) COVID-19 Vaccin e (1) [facility] Start: 1973 History and physical examination, annual for health maintenance Wellness Visit [facility] Start: 04-08-1971 COVID-19 Vaccine (#1) COVID-19 Vacci ne (#1) [facility] Start: 1970 HEPATITIS B (1 of 3 - 3-dose series) HEPATITIS B (1 of 3 - 3-dose series) [facility] Start: 1970 Screening for malign ant neoplasm of cervix Pap Smear [facility] Start: 1970 Screening for malign ant neoplasm of colon [facility] Start: 1970 Screening mammography Mammogram [facility] Start: 1970 Tetanus vaccination Tetanus: Every 1 0yrs [facility] End: 09-19-2022 Comprehensive metabolic 2000 panel - Serum or Plasma Comprehensive Metabolic Panel Lab Routine Generalized anxiety disorder Long-term use of high-risk medication Bipolar 1 disorder, mixed, mild (HCC) 1 Occurrences starting 09/19/2021 until 09/19/2022 [facility] Comment on above: 1 Occurrences starti ng 09/19/2021 until 09/19/2022 End: 04-01-2023 Ct abdomen & pelvis w/contrast material CT ENTEROGRAPHY W IVCON Radiology Routine 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 Work Phone: Comment on above: 1 Occurrences starti ng 03/02/2022 until 04/01/2023 End: 12-15-2022 EGD DIAGNOSTIC EGD DIAGNOSTIC Endoscopy Routine Nausea and vomiting, unspecified vomiting type Left upper quadrant abdominal pain 1 Occurrences starting 12/15/2021 until 12/15/[address] 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 Work Phone: Comment on above: 1 Occurrences starti ng 03/02/2022 until 03/02/2023 FAT, FECAL QUAL FAT, FECAL QUAL Lab Routine Weight loss Ordered: 01/05/[address] [facility] Work Phone: Comment on above: Ordered: 01/05/2022 End: 02-04-2023 Gastric emptying imaging study NM GASTRIC EMPTYING SOLID Radiology Routine Nausea 1 Occurrences starting 01/05/2022 until 02/04/[address] [facility] Work Phone: Comment on above: 1 Occurrences starti ng 01/05/2022 until 02/04/2023 End: 01-05-2023 Gi imag intraluminal esophagus-ileum w/i&r CAPSULE ENDOSCOPY SMALL BOWEL Endoscopy Routine Small bowel polyp 1 Occurrences starting 01/05/2022 until 01/05/[address] [facility] Work Phone: Comment on above: 1 Occurrences starti ng 01/05/2022 until 01/05/2023 End: 09-19-2022 Lipid 1996 panel - Serum or Plasma Lipid Panel Lab Routine Generalized anxiety disorder Long-term use of high-risk medication Bipolar 1 disorder, mixed, mild (HCC) 1 Occurrences starting 09/19/2021 until 09/19/2022 [facility] Comment on above: 1 Occurrences starti ng 09/19/2021 until 09/19/2022 PANC ELASTASE, FECAL PANC ELASTA SE, FECAL Lab Routine Weight loss Ordered: 01/05/[address] [facility] Work Phone: Comment on above: Ordered: 01/05/2022 End: 09-19-2022 Prolactin [Mass/volume] in Serum or Plasma Prolactin Lab Routine Generalized anxiety disorder Long-term use of high-risk medication Bipolar 1 disorder, mixed, mild (HCC) 1 Occurrences starting 09/19/2021 until 09/19/2022 [facility] Work Phone: Comment on above: 1 Occurrences starti ng 09/19/2021 until 09/19/2022 End: 04-01-2023 Radiologic exam chest 2 views XR CHEST 2V FRONTAL/LAT Radiology Routine Weight loss 1 Occurrences starting 03/02/2022 until 04/01/[address] [facility] Work Phone: Comment on above: 1 Occurrences starti ng 03/02/2022 until 04/01/2023 SURGICAL PATHOLOG[address] [facility] Work Phone: Comment on above: Release Upon Orderin g for 1 Occurrences starting 01/01/2022, 1 completed SURGICAL PATHOLOGY [facility] Work Phone: Comment on above: Release Upon Orderin g for 1 Occurrences starting 04/04/2022, [facility] Immunizations Immunization Date Immunization Notes Care Provider Dany ordoñez 10-10-2022 tetanus toxoid, reduced diphtheria toxoid, and acellular pertussis vaccine, adsorbed Sandoval Rae [facility] Rashaun NEGATED: Highlighted row has not occurred!01-16-2024 influenza virus vaccine, unspecified formulation Sandoval Rae [facility] NEGATED: Highlighted row has not occurred!05-24-2020 influenza virus vaccine, unspecified formulation José Luis Resendiz [facility] Payers Date Payer Category Payer Self-pay 2017 Medicaid [id number] 2017 Medicaid [id number] 1970 Unknown [id number] 2.16.8 40.1.993174.3.579.2.727 1970 Unknown [id number] 2.16.8 40.1.259447.3.579.2.727 1970 Unknown [id number] 2.16. 840.1.969090.3.579.2.903 1970 Unknown [id number] 2.16. 840.1.597431.3.579.2.903 1970 Unknown [id number] 2.16. 840.1.351226.3.579.2.903 1970 Unknown [id number] 2.16. 840.1.521577.3.579.2.903 1970 Unknown [id number] 2.16.84 0.1.201733.3.579.2.593 1970 Unknown [id number] 2.16.84 0.1.151045.3.579.2.593 1970 Unknown [id number] 2.16.84 0.1.386692.3.579.2.593 1970 Unknown [id number] 2.16.84 0.1.678618.3.579.2.593 1970 Unknown [id number] 2.16.84 0.1.032198.3.579.2.593 1970 Unknown [id number] 2.16.84 0.1.198899.3.579.2.593 1970 Unknown [id number] 2.16.84 0.1.100882.3.579.2.593 1970 Unknown [id number] 2.16.84 0.1.968668.3.579.2.593 1970 Unknown [id number] 2.16.8 40.1.698938.3.579.2.727 1970 Unknown [id number] 2.16.8 40.1.721477.3.579.2.727 1970 Unknown [id number] 2.16.8 40.1.801262.3.579.2.727 1970 Unknown [id number] 2.16.8 40.1.857735.3.579.2.727 1970 Unknown [id number] 2.16.8 40.1.385550.3.579.2.727 1970 Unknown [id number] 2.16.8 40.1.207450.3.579.2.727 1970 Unknown [id number] 2.16.8 40.1.537811.3.579.2.727 1970 Unknown [id number] 2.16.8 40.1.793911.3.579.2.727 1970 Unknown [id number] 2.16.8 40.1.094547.3.579.2.727 1959 Unknown [id number] 1959 Unknown [id number] Unknown [id number] 2.16.8 40.1.421749.3.579.2.531 Social History Date Type Detail Facility Start: 07-18-2020 End: 01-01-2022 Tobacco smoking status ILIS Current every day smoker [facility] Start: 07-18-2020 End: 01-01-2022 Tobacco use and exposure Never used [facility] Start: 07-18-2020 End: 04-04-2022 Alcohol intake Ex-drinker (finding) [facility] Start: 1970 Sex Assigned At Not on file [facility] Start: 09-09-2021 End: 02-05-2022 Exposure to SARS-CoV-2 (event) Not sure [facility] Start: 12-03-2021 End: 12-14-2021 Exposure to SARS-CoV-2 (event) Unable to assess [facility] Start: 06-10-2021 End: 06-20-2021 Exposure to SARS-CoV-2 (event) Yes [facility] Start: 1970 [facility] History of tobacco use Cigarette Smoker [facility] Start: 01-01-2022 Cigarettes smoked current (pack per day) - Reported 0.5 [facility] History of tobacco use Passive smoker [facility] Start: 09-24-2023 Tobacco smoking status Ex-smoker (fi nding) [facility] Comment on above: quit smoking 2023 Sex Assigned At Female [facility] Start: 01-16-2024 End: 03-23-2024 Tobacco smoking status Light tobacco smoker (finding) [facility] Tobacco smoking status Never [facility] Functional Status Date Assessment Result Facility 03-23-2024 Functional Status N/A [facility] 02-25-2024 Functional Status N/A [facility] 02-21-2024 Functional Status N/A [facility] 01-16-2024 Functional Status N/A [facility] 09-24-2023 Functional Status N/A [facility] Clinical Notes 07-20-2020 to 02-25-2024 Note Date & Type Note Facility 02-25-2024 Evaluation + Plan note Extrac kitty from: Title:ANES Post-operative Note---General Author: Dakota Rivas MD Date:02/25/24 Plan Transfer/Discharge: Transfer/Discharge Discharge when meets criteria ( To home ). Extracted from: Title:ANES Pre-operative Note 2022 Author:Dakota Rhoades Date:02/25/24 Plan [place] [employer]esthesi[employer] (ASA) physical status classification: Class III. Anesthetic Preoperative Plan: Anesthesia General. Future Scheduled Tests Laboratory* Giardia lamblia, Direct Detection EIA 11/26/23 * O & P Exam, Routine 11/26/23 * Rotavirus Ab 11/26/23 * Clostridium Difficile PCR 11/26/23 Radiology* CT Abdomen/Pelvis w/contrast (enterography) 01/30/24 * XR Small Bowel w/ Serial Films 02/10/24 [facility] 12-10-2024 Hospital Discharge instructions Patient Education [...] hard liquor (44 mL). General instructions Take nccw-zzw-sksdtue and prescription medicines only as told by [...] provider. Document Revised: 06/22/2020 Document Reviewed: 06/22/2020 [email or web address] Patient Education 2023 [employer]. 02/25/2024 11:02:55 Hiatal Hernia Hiatal Hernia A [...] reduce GERD symptoms. Medicines. These may include: ?Eiln-cuj-vovhttd antacids. ?Medicines that make your stomach empty [...] may include: ?Fatty foods, like fried foods. ?Hundred fruits, like oranges or lemon. ?Other foods [...] Do not drink alcohol. General instructions Take gcwe-ivc-pniergl and prescription medicines only as told by [...] provider. Document Revised: 05/01/2022 Document Reviewed: 05/01/2022 [email or web address] Patient Education 2023 [employer]. 02/25/2024 11:02:51 Gastritis, Adult, Flnd-xm-Bhfj Gastritis, Adult Gastritis is irritation and swelling [...] Follow these instructions at home: Medicines Take rvfg-mfr-rtqwhmc and prescription medicines only as told by [...] right away. Call your local emergency services ([address] [place] Do not wait to see [...] provider. Document Revised: 07/08/2021 Document Reviewed: 07/08/2021 [email or web address] Patient Education 2023 [employer]. 02/25/2024 11:02:46 Endoscopy, Care After Procedure [facility] Endoscopy Care After Procedure Please read the instructions outlined below and refer to this sheet in the next few weeks. These discharge instructions provide you with general information on [facility] Your doctor may also give you specific [...] Document Re-Released: 08/26/2006 ExitCare Patient Information 2009 [employer]. [facility] [phone] NoteProgress Note-Physician Patient: SAI PINEDA Age: 53 years Sex: Female : 1970 Associated Diagnoses: None Author: Dakota Rivas MD Postoperative Information Postoperative disposition: Postoperative disposition: To PACU. Optimetrix number: Optimetrix number [id number]. Anesthetic utilized: General. Health Status Allergies: Allergic [...] Discharge when meets criteria ( To home ).[facility]Result Comment: Electronically Signed By: Dakota [...] blood. Document Released: 10/16/2004 Document Re-Released: 08/26/2006 [facility] Patient Information ???2009 [employer]. Gastroenterology Hiatal Hernia A hiatal hernia occurs [...] symptoms. ??? Medicines. These may include: ? Mzgo-eqg-ocyxczf antacids. ? Medicines that make your stomach [...] your health care provide (more content not included)...[facility]12-10-2024 NoteProgress Note-Physician Patient: SAI PINEDA Age: 53 [...] day(s), # 56 tab(s), Refills(s) 0, Pharmacy: [facility]/pharmacy #[id number], 169, cm, 02/21/24 8:47:00 EST, Height/Length Dosing, 62.2, kg, 02/21/24 8:47:00 EST, Weight Dosing Questran 4 g/9 g oral powder: = 1 packet(s), Oral, BID, # 60 EA, Refills(s) 2, Pharmacy: [facility]/pharmacy #[id number], 169, cm, 01/16/24 10:14:00 EDT, Height/Length Dosing, 63.9, kg, 01/16/24 10:14:00 EDT, Weight Dosing Spiriva Respimat 60 ACT 2.5 mcg/inh inhalation aerosol: = 2 inh, Inhalation, Daily, # 4 gm, Refills(s) 11, [id number] 169.7, cm, 11/26/23 15:32:00 EDT, Height/Length Dosing, 62.1, kg, 11/26/23 15:32:00 EDT, Weight Dosing Zofran 4 mg Tab: 4 mg = 1 tab(s), Oral, q8hr, PRN Nausea, # 10 tab(s), Refills(s) 0, [id number], 173, cm, 04/26/20 13:07:00 EST, Height/Length Dosing, 52.8, kg, 04/26/20 13:07:00 EST, Weight Dosing Zofran ODT 4 mg Tab-Dis: 4 mg = 1 tab(s), Oral, TID, # 15 tab(s), Refills(s) 0, [id number], 172, cm, 09/24/23 13:02:00 EDT, Height/Length Dosing, 61.2, kg, 09/24/23 13:02:00 EDT, Weight Dosing Zofran ODT 8 mg Tab-Dis: 8 mg = 1 tab(s), SubLingual, q8hr, PRN Nausea/Vomiting, # 24 tab(s), Refills(s) 0, [id number], 169, cm, 01/16/24 10:14:00 EDT, Height/Length Dosing, 63.9, kg, 01/16/24 10:14:00 EDT, Weight Dosing cloNIDine 0.2 mg Tab: 0.2 mg = 1 tab(s), Oral, Bedtime, # 30 tab(s), Refills(s) 1, [id number], 173, cm, 05/24/20 14:42:00 EST, Height/Length Dosing, 50.1, kg, 05/24/20 14:42:00 EST,Weight Dosing colestipol 1 g Tab: 2 gm = 2 tab(s), Oral, BID, with a full glass of water, # 120 tab(s), Refills(s) 1, [id number], 169, cm, 01/16/24 10:14:00 EDT, Height/Length Dosing, 63.9, kg, 01/16/24 10:14:00 EDT, Weight Dosing hydrOXYzine hydrochloride 50 mg oral tablet: 50 mg = 1 tab(s), Oral, TID, PRN as needed for anxiety, # 30 tab(s), Refills(s) 0, [id number], 173, cm, 04/26/20 13:07:00 EST, Height/Length Dosing, 52.8, kg, 04/26/20 13:07:00 EST, Weight Dosing lamotrigine 25 mg Tab: See Instructions, TAKE 1 TABLET BY MOUTH EVERY DAY IN THE AFTERNOON, # 30 tab(s), Refills(s) 0, Pharmacy: [facility] STORE [id number], 169.7, cm, 11/26/23 15:32:00 EDT, Height/Length Dosing, 62.1, kg, 11/26/23 15:32:00 EDT, Weight Dosing mirtazapine 7.5 mg oral tablet: 7.5 mg = 1 tab(s), Oral, Bedtime, # 30 tab(s), Refills(s) 0, [id number], 169.7, cm, 10/03/23 9:38:00 EDT, Height/Length Dosing, 62.5, kg, 10/03/23 9:38:00 EDT, Weight Dosing omeprazole 20 mg Cap-DR: See Instructions, TAKE 1 CAPSULE BY MOUTH EVERY DAY, # 30 cap(s), Refills(s) 0, Pharmacy: [facility] STORE [id number], 169, cm, 02/21/24 8:47:00 EST, Height/Length Dosing, 62.2, kg, 02/21/24 8:47:00 EST, Weight Dosing ondansetron 4 mg Dis Tab: 4 mg = 1 tab(s), Oral, q6hr, PRN Nausea/Vomiting, # 30 tab(s), Refills(s)0, [id number], 169.7, cm, 11/26/23 15:32:00 EDT, Height/Length Dosing, 62.1, kg, 11/26/23 15:32:00 EDT, Weight Dosing ondansetron 8 mg Dis Tab: See Instructions, DISSOLVE 1 TABLET ON THE TONGUE EVERY 8 HOURS NEEDEDFOR NAUSEA AND VOMITING, # 24 tab(s), Refills(s) 0, [id number], 169, cm, 02/17/2411:55:00 EST, Height/Length Dosing, 61.8, kg, 02/18/24 11:55:00 EST, Weight D... promethazine 25 mg Tab: 25 mg = 1 tab(s), Oral, TID, # 15 tab(s), Refills(s) 0, Pharmacy: [facility]/pharmacy #[id number], 169, cm, 01/16/24 10:14:00 EDT, Height/Length Dosing, 63.9, kg, 01/16/24 10:14:00 EDT, Weight Dosing promethazine 25 mg Tab: See Instructions, TAKE 1 TABLET BY MOUTH THREE TIMES A DAY, # 30 tab(s), Refills(s) 1, [id number] 169, cm, 02/18/24 11:55:00 EST, Height/Length Dosing, 61.8, kg, 02/18/24 11:55:00 E (more content not included)...[facility]:Result Comment: Electronically Signed By: Rob SANDOVAL, Dakota Shoemaker\.br\Date and Time Signed: 02/25/24 10:18 [id number] Evaluation + Plan note Future Scheduled Tests Laboratory* Giardia lamblia, Direct Detection EIA 11/26/23 * O & P Exam, Routine 11/26/23 * Rotavirus Ab 11/26/23 * Clostridium Difficile PCR 11/26/23 Radiology* XR Small Bowel w/ Serial Films 02/10/24 [facility] 09-10-2024 Evaluation + Plan note Future Scheduled Tests Laboratory* Giardia lamblia, Direct Detection EIA 11/26/23 * O & P Exam, Routine 11/26/23 * Rotavirus Ab 11/26/23 * Clostridium Difficile PCR 11/26/23 Radiology* CT Abdomen/Pelvis w/contrast (enterography) 01/30/24 * XR Small Bowel w/ Serial Films 02/10/24 [facility] 07-09-2024 Hospital Discharge [...] Treatment for this condition includes: Antibiotic medicine. Hzmr-psz-nyhpqhv medicines to treat discomfort. Drinking enough water [...] Follow these instructions at home: Medicines Take cwls-crm-pgmoadm and prescription medicines only as told by [...] provider. Document Revised: 10/14/2020 Document Reviewed: 10/14/2020 [email or web address] Patient Education 2022 [employer]. Follow Up Care 09/24/2023 12:53:04 With:CHANCE SERRANO Address: [address] [place] [phone] Business (1) When:09/27/2023 15:19:10 [facility]07-09-2024 Evaluation + Plan note Diagnostic Tests Pending * Urine Culture 09/24/23 [facility]02-21-2023 Miscellaneous Notes* Telephone Encounter - Eva Chong - 05/08/2022 10:40 AM EST 05/08/22 Patient calling to see if Dr Morales will write her a script for Zofran nausea medication strips. [phone] Eva documented in [facility] NoteHNO ID: [id number] Author: Tiffani Morales MD Service: ? Author [...] Tiffani Morales MD 04/24/2022 11:19 AM Staff Special Events Coordinator, Digestive Disease AND Surgery Aline PRIMARY PROBLEM: small bowel tumor, severe malnutrition [...] clips were successfully placed (MR conditional). 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 There was no bleeding at the end [...] patient, physical examination, documentation, and co-ordination of care.[facility]02-07-2023 History of Present illness Narrative* Tiffani Morales [...] Tiffani Morales MD 04/24/2022 11:19 AM Staff Special Events Coordinator, Digestive Disease & Surgery Aline PRIMARY PROBLEM: small bowel tumor, severe malnutrition [...] clips were successfully placed (MR conditional). 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 There was no bleeding at the end [...] co- ordination of care. documented in this encounterAs[facility]01-[facility]23 Miscellaneous Notes* Telephone Encounter - Eva Chong - 04/05/2022 9:29 AM EST 04/05/22 Patient wants tow know if y script you can send her script for ZOFRAN, under the tongue tablets. For nausea. Eva documented in this encounterAshtabula [facility]01-18-2023 NoteHNO ID: [id number] Author: Frederick Chaves APRN.AUTOMOTIVE TITLE CLERK Service: ? Author Type: Nurse Lens Mounter Type: Anesthesia Procedure Notes Filed: 04/04/2022 1:55 PM Note Text: ANESTHESIOLOGY PROCEDURE NOTE Airway General Information Procedure Start Time/Medication Administration: 04/04/2022 1:38 PM Patient location during procedure: OR Timeout Performed Pre-procedure: timeout performed Consent Obtained: Yes Patient identity confirmed: arm band Staffing AUTOMOTIVE TITLE CLERK: Frederick Chaves APRN.AUTOMOTIVE TITLE CLERK Performed by: GORGE Indications and Patient Condition Indications for airway management: anesthesia Preoxygenated: yes anesthesia circuit Patient position: sniffing Method: asleep Cricoid Pressure: No Difficult Mask: No Final Airway Details Final airway type: endotracheal airway Final Endotracheal Airway: ETT Cuffed: yes Successful intubation technique: video laryngoscopy Devices used: [employer] Endotracheal tube insertion site: oral Blade: [place] Blade size: #3 ETT size (mm): 7.0 Measured from: lips Measurement (cm): 21 Placement verified by: capnometry Cormack-Lehane Classification: grade I - full view of glottis Number of attempts at approach: 1 Airway not difficult SIGNATURE: Frederick Chaves APRN.CRNA PATIENT NAME: Sai Pineda DATE: April 04, 2022 TIME: 1:54 PM CSN: [id number] NoteHNO ID: [id number] Author: Frederick Chaves APRN.AUTOMOTIVE TITLE CLERK Service: ? Author Type: Nurse Lens Mounter Type: Anesthesia Procedure Notes Filed: 04/04/2022 1:51 PM Note Text: ANESTHESIOLOGY PROCEDURE NOTE PIV General Information Procedure Start Time/Medication Administration: 04/04/2022 1:26 PM Patient Location: OR Staffing AUTOMOTIVE TITLE CLERK: Frederick Chaves APRN.AUTOMOTIVE TITLE CLERK Performed by: GORGE Preparation Sterility Preparation: hand [...] April 04, 2022 TIME: 1:49 PM CSN: [id number] Nurse Note* Eduardo Harrington RN - 04/04/2022 [...] RN In Department: GASTROENTEROLOGY documented in this encounterAshtabula [facility] Center01-18-2023 NoteQ3 Patient Name: Sai Pineda [...] clips were successfully placed (MR conditional). 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 There was no bleeding at the end of the maneuver. Exam of the jejunum was otherwise normal. Impression: - Atrophic mucosa. - Jejunal polyp(s). Resected and retrieved. Tattooed. Clips (MR conditional) were placed. Clip senior producer: [employer]. Estimated Blood Loss: Estimated blood loss was minimal. Recommendation: - Await pathology results. - Resume previous diet. - Continue present medications. - Return to endoscopist at the next available appointment. 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 All rights reserved. Attending Participation: I was present and participated during the entire procedure, including non-morrison portions. Scope In: 1:44:30 PM Scope Out: 3:07:42 PM MD Tiffani Camargo MD 04/04/2022 3:21:50 PM This report has been signed electronically by Tiffani Morales MD Number of Addenda: 0 (more content not included)...[facility] 04-04-2022 History and physical note* Tiffani Morales [...] DATE: 04/04/2022 TIME: 1302 documented in this encounterAshtabula County Medical Center01-11-2023 Miscellaneous Notes* Telephone Encounter - Eduardo Harrington RN - 03/28/2022 3:50 PM EST Attempted to reach the patient at the contact number that they provided [phone] (home) . Unable to speak with patient so without identifying the patient the following information was left on their voice mail: Date of procedure, location and report time A message was left informing the patient/patient field representative/health education they must have a responsible adult accompany [...] Number to call with questions or concerns [phone] Number to call to cancel their procedure [phone] Eduardo Harrington RN documented in this encounterAshtabula County Medical Center12-27-2022 Note* Addendum Note - Robb Evans MD - 03/13/2022 3:44 PM ESTAddended by: ROBB EVANS on: 03/13/2022 03:44 PM Modules accepted: Orders [id number] Miscellaneous Notes* Addendum Note - Robb Evans MD - 03/13/2022 3:44 PM ESTAddended by: ROBB EVANS on: 03/13/2022 03:44 PM Modules accepted: Orders * Addendum Note - Gokul Montoya MA - 03/13/2022 3:37 PM ESTAddended by: GOKUL MONTOYA on: 03/13/2022 03:37 PM Modules accepted: Orders documented in this [id number] Note* Addendum Note - Gokul Montoya MA - 03/13/2022 3:37 PM ESTAddended by: GOKUL MONTOYA on: 03/13/2022 03:37 PM Modules accepted: Orders [id number] Note* Addendum Note - Gokul Montoya MA - 03/13/2022 3:37 PM ESTAddended by: GOKUL MONTOYA on: 03/13/2022 03:37 PM Modules accepted: Orders [id number] Miscellaneous Notes* Addendum Note - Gokul Montoya MA - 03/13/2022 3:37 PM ESTAddended by: GOKUL MONTOYA on: 03/13/2022 03:37 PM Modules accepted: Orders documented in this [id number] NoteHNO ID: [id number] Author: Tiffani Morales MD Service: ? Author [...] Tiffani Morales MD 03/01/2022 11:19 AM Staff Special Events Coordinator, Digestive Disease AND Surgery Aline PRIMARY PROBLEM: small bowel tumor, severe malnutrition [...] patient, physical examination, documentation, and co-ordination of care.[facility]12-15-2022 History of Present illness Narrative* Tiffani Morales [...] Tiffani Morales MD 03/01/2022 11:19 AM Staff Special Events Coordinator, Digestive Disease & Surgery Aline PRIMARY PROBLEM: small bowel tumor, severe malnutrition [...] co- ordination of care. documented in this encounterAshtabula County Medical Center12-02-2022 NoteHNO ID: [id number] Author: Anastasiya Mosqueda PA-C Service: ? Author Type: Physician Salsa Dance Instructor Type: Progress Notes Filed: 02/16/2022 5:07 PM Note Text: Orders placedGood [facility]aritan Hospital11-21-2022 NoteHNO ID: [id number] Author: RT Fabiana(R) Service: Nuclear Medicine Author [...] [address] PERFORMED: No IV SITE: OR only - not applicable, oral or physician administered agents given to patient POST EXAM PIV STATUS: Discontinued PROCEDURE TYPE: NM GET: 1 mCi Tc99m SULFUR COLLOID was administered orally via 4 ounces of Egg Beaters,2 pieces of toast, 1 ounce of jelly with 8 ounces of water orally ADMINISTRATION TIME: 08:15 PATIENT DISCHARGED TO: Ambulatory patient, left OR department area. A Diagnostic radioactive procedure has taken place, with no further precautions necessary other than routine body substance precautions. More information regarding radiation safety can be found using this link: [email or web address] SIGNATURE: PHILLIP Jung) PATIENT NAME: Sai Pineda DATE: February 05, 2022 TIME: 10:16 AM PAGER/CONTACT #:[facility]11-14-2022 NoteHNO ID: [id number] Author: Dolores Lopez RN Service: ? Author Type: Registered Nurse Type: Progress Notes Filed: 02/01/2022 4:29 PM Note Text: Summary: capsule endoscopy small bowel Capsule endoscopy small bowel ingested without difficulty @ 1300 on 01-29-2022. Therese Lopez RN [id number] [facility] PTF G [id number] Capsule Endoscopy Post Ingestion Patient Information Do [...] cell phones, computers, remote TV appliances, microwaves, [employer] players and digital cameras. Because the capsule [...] hours you may call: HERNÁN Salvador RN [phone] After Business hours: [phone] and ask for GI Tettnh-Jh-RssLjtzkhspfAden[facility]11-14-[facility] History of Present illness Narrative* Dolores Lopez RN - 01/29/2022 1:17 PM ESTSummary: capsule endoscopy small bowel Capsule endoscopy small bowel ingested without difficulty @ 1300 on 01-29-2022. Therese Lopez RN [id number] [facility] PTF G [id number] Capsule Endoscopy Post Ingestion Patient Information Do [...] hours you may call: HERNÁN Salvador RN [phone] After Business hours: [phone] and ask for GI Wuicwt-Oh-Wcl documented in this encounterAshtabula County Medical Center10-21-2022 Miscellaneous Notes* Telephone Encounter - Tfifani Morales MD - 01/05/2022 5:46 PM EDT [...] Morales MD 01-05-2022 17:51 documented in this encounterAshtabula County Medical Center10-21-2022 NoteHNO ID: [id number] Author: Anastasiya Mosqueda PA-C Service: ? Author Type: Physician Salsa Dance Instructor Type: Progress Notes Filed: 01/05/2022 2:24 PM Note Text: Per discussion with Dr. Morales, GES, Small bowel capsule study, Fecal fat qual and pancreatic elastase stool studies orders placed. Discussed plan with patient. [facility]naAd[facility]10-[facility]22 History of Present illness Narrative* Anastasiya Mosqueda PA-C - 01/05/2022 2:13 PM EDT Per discussion with Dr. Morales, GES, Small bowel capsule study, Fecal fat qual and pancreatic elastase stool studies orders placed. Discussed plan with patient. Anastasiya Mosqueda PA-C documented in this encounterAshtabula County Medical Center10-21-2022 Miscellaneous Notes* Telephone Encounter - [...] testing. Anastasiya Mosqueda PA-C documented in this encounterCleveland [id number] Miscellaneous Notes* Telephone Encounter - Anastasiya Mosqueda PA-C - 01/03/2022 10:17 AM EDT EGD results discussed with patient as requested, pathology still pending. Will reach out to patientonce resulted. Red flags for in person care discussed. Anastasiya Mosqueda PA-C documented in this encounterAshtabula County Medical Center10-18-2022 Miscellaneous Notes* Telephone Encounter - Leydi Dumontader - 01/02/2022 8:47 AM EDT Patient called to get results from her procedure. Please contact her at number listed in system. Thanks Leydi Henry Workleader documented in this encounterAshtabula County Medical Center10-17-2022 Nurse Note* Juan Carlos Saucedo [...] RN In Department: GASTROENTEROLOGY documented in this encounterAshtabula County Medical Center10-17-2022 History and physical note * [...] DATE: 01/01/2022 TIME: 1600 documented in this encounterAshtabula County Medical Center10-10-2022 Miscellaneous Notes* Telephone Encounter - Rima Gerard RN - 12/25/2021 8:26 AM EDT Patient scheduled incorrectly. Anesthesia not supposed to have 430 case. I called patient to see ifthey can come in early. She said she would call me back Rima Gerard RN documented in this encounterAshtabula County Medical Center09-30-2022 NoteHNO ID: [id number] Author: Anastasiya Mosqueda PA-C Service: ? Author Type: Physician Salsa Dance Instructor Type: Progress Notes Filed: 12/15/2021 4:32 PM Note Text: VIRTUAL VISIT NEW PATIENT NAME: Sai Pineda [facility] NO: [id number] DATE: 12/15/2021 REASON FOR VISIT Sai Randolphn [id number] 1970 has requested a video telemedicine initial consultation at the request of Self. Sai Pineda Alamillo verbalized informed consent to proceed with the [...] abdominal rigidity Assessment IMPRESSION (more content not included)...[facility]09-30-[facility] History of Present illness Narrative* GRECIA Castorena 12/15/2021 11:50 AM EDT VIRTUAL VISIT NEW PATIENT NAME: Sai Guerrero CLINIC NO: [id number] DATE: 12/15/2021 REASON FOR VISIT Sai Guerrero [id number] 1970 has requested a video telemedicine initial [...] 15, 2021 11:51 AM documented in this encounterAshtabula County Medical Center09-29-2022 NoteHNO ID: [id number] Author: Anastasiya Mosqueda PA-C Service: ? Author Type: Physician Salsa Dance Instructor Type: Progress Notes Filed: 12/14/2021 3:51 PM Note Text: Unable to connect to VV, called multiple times and left multiple VM's. Patient rescheduled for tomorrow.[facility]09-29-2022 History of Present illness Narrative* Anastasiya Mosqueda PA-C - 12/14/2021 10:52 AM EDT Unable to connect to VV, called multiple times and left multiple VM's. Patient rescheduled for tomorrow. documented in this encounterAshtabula County Medical Center09-28-2022 Miscellaneous Notes* Telephone Encounter - Elizabeth Ricci - 12/13/2021 12:32 PM EDT Spoke to patient's daughter - she will contact the [employer] support line to assist with setting up patient's Mychart & assist with set up for virtual visit tomorrow morning Elizabeth Ricci * Telephone Encounter - Elizabeth Ricci - 12/13/2021 11:17 AM EDT Received a call from patient's health agency concerning virtual visit set up with you today at 11 - Patient has not registered for [employer] (having trouble accessing her email) & they want to knowif you will do a phone visit instead Was told this was an urgent request from the referring doctor's office - the visit was scheduled thru the Referring Physician office There are no records found for this patient & I attempted to pull records thru Care Everywhere Patient's phone [phone] Elizabeth Ricci documented in this encounterAshtabula County Medical Center07-13-2022 History of Present illness Narrative* Robb Evans MD - 09/27/2021 10:19 AM EDT Prolactin Level Elevated at 146. Will add Abilify 5 mg daily to address that. Pt informed. Pt is denying breast tenderness or documented in this [id number] History of Present illness Narrative* Robb Evans MD - 09/19/2021 2:19 PM EDT BEHAVIORAL HEALTH PSYCHIATRIC PROGRESS NOTE Reason for visit: Psychotropic medication management 09/19/2021 Patient is seen alone in his office for psychotropic medication management. Patient reported they are moving to a new residence, in [place] same place they have been living in. [...] Testing: none Robb Evans documented in this [id number] History of Present illness Narrative* Robb Evans [...] Testing: none Robb Evans documented in this [id number] History of Present illness Narrative* Robb Evans MD - 03/01/2021 1:31 PM EST Telephone Visit Via Phone Call [facility] [address]) [facility] [address] [facility] [phone] Telephone Visit [facility] 03/01/2021 Robb Evans MD Provider Location: [facility] Patient Location Gas Substation Operator: None Patient Location: Patient's Home Patient: Sai [...] there are inherent diagnostic limitations compared to meaj-ou-bltv evaluations. We elected toproceed with the telephone [...] and Plan of Care. documented in this [id number] History of Present illness Narrative* Robb Evans MD - 08/22/2020 3:27 PM EDT Telephone Visit Via Phone Call [facility] [phone] Telephone Visit [facility] 08/22/2020 Robb Evans MD Provider Location: [facility] Patient Location Gas Substation Operator: None Patient Location: Patient's Home Patient: Sai [...] there are inherent diagnostic limitations compared to jmrv-hk-afto evaluations. We elected toproceed with the telephone [...] and Plan of Care. documented in this [id number] History of Present illness Narrative* Robb Evans MD - 07/20/2020 11:29 AM EDT BEHAVIORAL HEALTH PSYCHIATRIC ASSESSMENT DOS: 07/18/3020 Reason for visit: Psychotropic management follow-up. Patient is here to reestablish care at my new location HPI: Patient is seen in office alone. [facility] Her working diagnosis is bipolar disorder type I, panic disorder with agoraphobia and PTSD. She has prior history of alcohol and cannabis abuse but has maintained sobriety for about last 1 year. Patient was seen here for reestablishing care at my new location in [facility]. Patient wants to continue her psychiatric management.. She had briefly seen a nurse practitioner in [place] after [place]. Patient reported she she is [...] PFSH: Past Medical History: Diagnosis Date Alcoholism ([facility]), in remission Anxiety Bipolar disorder ([facility]) Depression Drug abuse and dependence ([facility]) in remission Panic disorder Psychosis ([facility]) Social History Substance and Sexual Activity Alcohol [...] Testing: none Robb Evans documented in this encounterOhioHealthEvaluation + Plan note Future Appointments Appointment Date:01/27/2024 10:00:00 AM Scheduled Provider: Location:.XRAY Appointment Type:XR Esophagus/Upper GI/Small Bowel (FT) Future Scheduled Tests Laboratory* Giardia lamblia, Direct Detection EIA 11/26/23 * O & P Exam, Routine 11/26/23 * Rotavirus Ab 11/26/23 * Clostridium Difficile PCR 11/26/23 Radiology* XR Small Bowel w/ Serial Films 01/27/24 [facility] Evaluation + Plan note Future Appointments Appointment Date:02/25/2024 11:00:00 AM Scheduled Provider: Location:[facility] Appointment Type:Surgery FT Future Scheduled Tests Laboratory* Giardia lamblia, Direct Detection EIA 11/26/23 * O & P Exam, Routine 11/26/23 * Rotavirus Ab 11/26/23 * Clostridium Difficile PCR 11/26/23 Radiology* CT Abdomen/Pelvis w/contrast (enterography) 01/30/24 * XR Small Bowel w/ Serial Films 02/10/24 [facility] Digestive Health evaluation note* Diagnosis Generalized anxiety disorder- Primary Moderate mixed bipolar I disorder (HCC) Bipolar I disorder, most recent episode (or current) mixed, moderate Long-term use of high-risk medication [facility]* Diagnosis Moderate mixed bipolar I disorder (HCC)- Primary Bipolar I disorder, most recent episode (or current) mixed, moderate Generalized anxiety disorder Long-term use of high-risk medication [facility]* Diagnosis Generalized anxiety disorder [facility]* Diagnosis Bipolar 1 disorder, mixed, mild (HCC)- Primary Generalized anxiety disorder Long-term use of high-risk medication [facility]* Diagnosis Generalized anxiety disorder- Primary Bipolar 1 disorder, mixed, mild (HCC) Long-term use of high-risk medication Post traumatic stress disorder (PTSD) documented in this [facility] note* Diagnosis Bipolar 1 disorder, mixed, mild (HCC)- Primary Generalized anxiety disorder Long-term use of high-risk medication documented in this encounter [facility] note* Diagnosis APPOINTMENT CANCELLED- Primary documented in this encounter [facility] note* Diagnosis Nausea and vomiting, unspecified vomiting type- Primary Left upper quadrant abdominal pain Weight loss Loss of weight documented in this encounter [facility] note* Diagnosis Nausea and vomiting, unspecified vomiting type Left upper quadrant abdominal pain documented in this encounter [facility] note* Diagnosis Nausea- Primary Nausea alone Weight loss Loss of weight 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, jejunum, and ileum documented in this encounter [facility] note* Diagnosis Abdominal pain, unspecified abdominal location- Primary documented in this encounter [facility] note* Diagnosis Intestinal polyposis- Primary Benign neoplasm of colon documented in this encounter [facility] note* Diagnosis Severe protein-calorie malnutrition (HCC)- Primary Other severe protein-calorie malnutrition 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 Weight loss Loss of weight Severe malnutrition (HCC) 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 [facility] note* Diagnosis Generalized anxiety disorder documented in this encounter [facility] note* Diagnosis Generalized anxiety disorder documented in this encounter [facility] note* Diagnosis Generalized anxiety disorder documented in this encounter [facility] note* Diagnosis 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 documented in this encounter [facility] note* Diagnosis Generalized anxiety disorder documented in this encounter [facility] note* Diagnosis Severe malnutrition (HCC)- Primary 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 [facility] course Narrative No data available for this section [facility] No data available for this section [facility] Dig[facility] Progress note No data available for this section [facility] (narrative)* Outpatient Procedure (Routine) - Closed Specialty Diagnoses / Procedures Referred By Shane t Referred To Contact [facility] Diagnoses Nausea and vomiting, unspecified vomiting type Left upper quadrant abdominal pain Procedures EGD DIAGNOSTIC ESOPHAGOGASTRODUODENOSC OPY TRANSORAL DIAGNOSTIC Anastasiya Mosqueda PA-C [address] [place] [address] [facility] [address] [place] [address] Referral ID Status Reason Start Date Expiration Date V isits Requested Visits Authorized [id number] Closed Auto-Generate d Referral 12/15/2021 12/15/2022 1 1 [facility] for referral (narrative)* Outpatient Procedure (Routine) - Pending Review Specialty Diagnoses / Procedures Referred By Shane titus Referred To Contact [facility] Diagnoses Small bowel polyp Procedures CAPSULE ENDOSCOPY SMALL BOWEL GI TRC IMG INTRALUMINAL ESOPHAGUS-ILEUM W/I&R Anastasiya Mosqueda PA-C [address] [place] [address] [address] Referral ID Status Reason Start Date Expiration Date Visits Requested Visits Authorized [id number] Pending Review Auto-Generat ed Referral 2 01/05/2023 1 1 * Diagnostic Procedure Only (Routine) - Pending Review Specialty Diagnoses / Procedures Referred By Shane titus Referred To Contact MOLECULAR & FUNCTIONAL IMAGING Diagnoses Nausea Procedures NM GASTRIC EMPTYING SOLID GASTRIC EMPTYING STUDY Anastasiya Mosqueda PA-C [address] [place] [address] Molecular & Functional Imaging [address] [phone] Referral ID Status Reason Start Date Expiration Date Visits Requested Visits Authorized [id number] Pending Review Auto-Generat ed Referral 2 02/04/2023 1 1 [facility] for referral (narrative)* Outpatient Procedure (Routine) - Pending Review Specialty Diagnoses / Procedures Referred By Shane titus Referred To Contact [facility] Diagnoses 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) Procedures ENTEROSCOPY ENDOSCOPY UPPER SMALL INTESTINE Tiffani Morales MD [address] [place] [address] [facility] [address] [address] Referral ID Status Reason Start Date Expiration Date Visits Requested Visits Authorized [id number] Pending Review Auto-Generat ed Referral 2 03/02/2023 1 1 * MRI/CT (Routine) - Pending Review Specialty Diagnoses / Procedures Referred By Shane titus Referred To Contact CT IMAGING Diagnoses 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) Weight loss Procedures CT ENTEROGRAPHY W IVCON CT ABD & PELVIS W/CONTRAST Tiffani Morales MD [address] [place] [address] Ct Imaging Referral ID Status Reason Start Date Expiration Date Visits Requested Visits Authorized [id number] Pending Review Auto-Generat ed Referral 2 04/01/2023 1 1 [facility] for referral (narrative)* Outpatient Procedure (Routine) - Closed Specialty Diagnoses / Procedures Referred By Shane titus Referred To Contact [facility] Diagnoses 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) Procedures ENTEROSCOPY ENDOSCOPY UPPER SMALL INTESTINE Tiffani Morales MD [address] [place] [address] [facility] [address] [address] Referral ID Status Reason Start Date Expiration Date V isits Requested Visits Authorized [id number] Closed Auto-Generate d Referral 03/02/2022 03/02/2023 1 1 [facility] for visit Narrative* Outpatient Procedure (Routine) - Closed Specialty Diagnoses / Procedures Referred By Contac t Referred To Contact [facility] Diagnoses Nausea and vomiting, unspecified vomiting type Left upper quadrant abdominal pain Procedures EGD DIAGNOSTIC ESOPHAGOGASTRODUODENOSC OPY TRANSORAL DIAGNOSTIC Anastasiya Mosqueda PA-C [id number] [place] [address] Referral ID Status Reason Start Date Expiration Date V isits Requested Visits Authorized [id number] Closed Auto-Generate d Referral 12/15/2021 12/15/2022 1 1 [facility]* Outpatient Procedure (Routine) - Closed Specialty Diagnoses / Procedures Referred By Shane titus Referred To Contact [facility] Diagnoses 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) Procedures ENTEROSCOPY ENDOSCOPY UPPER SMALL INTESTINE Tiffani Morales MD [address] [place] [address] [place] [address] Referral ID Status Reason Start Date Expiration Date V isits Requested Visits Authorized [id number] Closed Auto-Generate d Referral 03/02/2022 03/02/2023 1 1 [facility] Advance Directives No Advanced Directives Records FoundDocuments on File Type Date Recorded 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 Advance Directives and Living Will [...] this section No Family History Records Found Reason for Referral Specialty Diagnoses / Procedures Referred By Shane t Referred To Contact Nutrition Diagnoses Nausea and vomiting, unspecified vomiting type Weight loss Procedures CONSULT TO NUTRITION THERAPY OFFICE/OUTPATIENT [facility] HIGH MDM 60-74 MINUTES Anastasiya Mosqueda PA-C [address] [id number] Referral ID Status Reason Start Date Expiration Date Visits Requested Visits Authorized [id number] Authorized PCP Requested Referral 12/15/2021 12/15/2022 1 1 Specialty Diagnoses / Procedures Referred By Shane t Referred To Contact [facility] Diagnoses Nausea and vomiting, unspecified vomiting type Left upper quadrant abdominal pain Procedures EGD DIAGNOSTIC ESOPHAGOGASTRODUODENOSC OPY TRANSORAL DIAGNOSTIC Anastasiya Mosqueda PA-C [address] [id number] [facility] [address] [place] [address] Referral ID Status Reason Start Date Expiration Date Visits Requested Visits Authorized [id number] Authorized Auto-Generat ed Referral 12/15/2021 12/15/2022 1 1 Medications Administered Section Inactive Administered Medications - up to 3 most recent administrations Medication Order MAR Action Action Date Dose Rate Site benzocaine 20% (TOPEX) TOPICAL, X (OR/PROCEDURE) PRN, Starting on Sat01/01/22 at 1606, Until Sat01/01/22 at 1606, Intraprocedure Given 01/01/2022 4:06 PM EDT 1 Jacob NaCl 0.9% iv infusion 30 mL/hr, INTRAVENOUS, [...] Care Teams (unrecognized sec tion and content) Helpdesk Manager Relationship Specialty Start Date End Date Cristina Iqbal, MINE CAR DISPATCHER [address] [place] [address] PCP - General Nurse Practitioner 07/18/20 Helpdesk Manager Relationship Specialty Start Date End Date Cristina Iqbal, MINE CAR DISPATCHER [address] [place] [address] PCP - General Nurse Practitioner 07/18/20 Helpdesk Manager Relationship Specialty Start Date End Date Cristina Iqbal, MINE CAR DISPATCHER [address] [place] [address] PCP - General Nurse Practitioner 07/18/20 Helpdesk Manager Relationship Specialty Start Date End Date Cristina Iqbal, MINE CAR DISPATCHER [address] [place] [address] PCP - General Nurse Practitioner 07/18/20 Helpdesk Manager Relationship Specialty Start Date End Date Cristina Iqbal, MINE CAR DISPATCHER [address] [place] [address] PCP - General Nurse Practitioner 07/18/20 Helpdesk Manager Relationship Specialty Start Date End Date Cristina Iqbal, MINE CAR DISPATCHER [address] [place] [address] PCP - General Family Medicine 10/15/12 Helpdesk Manager Relationship Specialty Start Date End Date Cristina Iqbal, MINE CAR DISPATCHER [address] [place] [address] PCP - General Family Medicine 10/15/12 Helpdesk Manager Relationship Specialty Start Date End Date Cristina Iqbal, MINE CAR DISPATCHER [address] [place] [address] PCP - General Family Medicine 10/15/12 Helpdesk Manager Relationship Specialty Start Date End Date Cristina Iqbal, MINE CAR DISPATCHER [address] [place] [address] PCP - General Family Medicine 10/15/12 Helpdesk Manager Relationship Specialty Start Date End Date Cristina Iqbal, MINE CAR DISPATCHER [address] [place] [address] PCP - General Family Medicine 10/15/12 Helpdesk Manager Relationship Specialty Start Date End Date Cristina Iqbal, MINE CAR DISPATCHER [address] [place] [address] PCP - General Family Medicine 10/15/12 Helpdesk Manager Relationship Specialty Start Date End Date Cristina Iqbal, MINE CAR DISPATCHER [address] [place] [address] PCP - General Family Medicine 10/15/12 Helpdesk Manager Relationship Specialty Start Date End Date Cristina Iqbal, MINE CAR DISPATCHER [address] [place] [address] PCP - General Family Medicine 10/15/12 Helpdesk Manager Relationship Specialty Start Date End Date Cristina Iqbal, MINE CAR DISPATCHER [address] [place] [address] PCP - General Nurse Practitioner 07/18/20 Helpdesk Manager Relationship Specialty Start Date End Date Cristina Iqbal, MINE CAR DISPATCHER [address] [place] [address] PCP - General Family Medicine 10/15/12 Helpdesk Manager Relationship Specialty Start Date End Date Cristina Iqbal, MINE CAR DISPATCHER [address] [place] [address] PCP - General Family Medicine 10/15/12 Helpdesk Manager Relationship Specialty Start Date End Date Cristina Iqbal, MINE CAR DISPATCHER [address] [place] [address] PCP - General Family Medicine 10/15/12 Helpdesk Manager Relationship Specialty Start Date End Date Cristina Iqbal, MINE CAR DISPATCHER [address] [place] [address] PCP - General Family Medicine 10/15/12 Helpdesk Manager Relationship Specialty Start Date End Date Cristina Iqbal, MINE CAR DISPATCHER [address] [place] [address] PCP - General Nurse Practitioner 07/18/20 Helpdesk Manager Relationship Specialty Start Date End Date Cristina Iqbal, MINE CAR DISPATCHER [address] [place] [address] PCP - General Nurse Practitioner 07/18/20 Helpdesk Manager Relationship Specialty Start Date End Date Cristina Iqbal, MINE CAR DISPATCHER [address] [place] [address] PCP - General Family Medicine 10/15/12 Helpdesk Manager Relationship Specialty Start Date End Date Cristina Iqbal, MINE CAR DISPATCHER [address] [place] [address] PCP - General Family Medicine 10/15/12 Helpdesk Manager Relationship Specialty Start Date End Date Cristina Iqbal, MINE CAR DISPATCHER [address] [place] [address] PCP - General Family Medicine 10/15/12 Helpdesk Manager Relationship Specialty Start Date End Date Cristina Iqbal, MINE CAR DISPATCHER [address] [place] [address] [phone] (work) PCP - General Family Medicine 10/15/12 INFORMATION SOURCE (unrecogn ized section and content) DATE CREATED AUTHOR 12/16/2021 [facility] DATE CREATED AUTHOR AUTHOR'S ORGANIZ ATION 12/20/2021 [facility] DATE CREATED AUTHOR AUTHOR'S ORGANIZ ATION 05/12/2022 [facility] DATE CREATED AUTHOR AUTHOR'S ORGANIZ ATION 05/31/2022 [facility] DATE CREATED AUTHOR AUTHOR'S ORGANIZ ATION 03/04/2024 [facility] DATE CREATED AUTHOR AUTHOR'S ORGANIZ ATION 03/05/2024 [facility] DATE CREATED AUTHOR AUTHOR'S ORGANIZ ATION 03/19/[address] [facility] DATE CREATED AUTHOR AUTHOR'S ORGANIZ ATION 03/29/2024 [facility] Source Comments (unrecognize d section and content) In the event this informatio n is protected by the Federal Confidentiality of Alcohol and Drug Abuse Patient Records regulations: The Federal rules restrict any use of the information to criminally investigate or prosecute any alcohol or drug abuse patient.[facility] the event this information is protected by the Federal Confidentiality of Alcohol and Drug Abuse Patient Records regulations: The Federal rules restrict any use of the information to criminally investigate or prosecute any alcohol or drug abuse patient.[facility] the event this information is protected by the Federal Confidentiality of Alcohol and Drug Abuse Patient Records regulations: The Federal rules restrict any use of the information to criminally investigate or prosecute any alcohol or drug abuse patient.[facility] the event this information is protected by the Federal Confidentiality of Alcohol and Drug Abuse Patient Records regulations: The Federal rules restrict any use of the information to criminally investigate or prosecute any alcohol or drug abuse patient.[facility] the event this information is protected by the Federal Confidentiality of Alcohol and Drug Abuse Patient Records regulations: The Federal rules restrict any use of the information to criminally investigate or prosecute any alcohol or drug abuse patient.[facility] the event this information is protected by the Federal Confidentiality of Alcohol and Drug Abuse Patient Records regulations: The Federal rules restrict any use of the information to criminally investigate or prosecute any alcohol or drug abuse patient.[facility] the event this information is protected by the Federal Confidentiality of Alcohol and Drug Abuse Patient Records regulations: The Federal rules restrict any use of the information to criminally investigate or prosecute any alcohol or drug abuse patient.[facility] the event this information is protected by the Federal Confidentiality of Alcohol and Drug Abuse Patient Records regulations: The Federal rules restrict any use of the information to criminally investigate or prosecute any alcohol or drug abuse patient.[facility] the event this information is protected by the Federal Confidentiality of Alcohol and Drug Abuse Patient Records regulations: The Federal rules restrict any use of the information to criminally investigate or prosecute any alcohol or drug abuse patient.[facility] the event this information is protected by the Federal Confidentiality of Alcohol and Drug Abuse Patient Records regulations: The Federal rules restrict any use of the information to criminally investigate or prosecute any alcohol or drug abuse patient.[facility] the event this information is protected by the Federal Confidentiality of Alcohol and Drug Abuse Patient Records regulations: The Federal rules restrict any use of the information to criminally investigate or prosecute any alcohol or drug abuse patient.[facility] the event this information is protected by the Federal Confidentiality of Alcohol and Drug Abuse Patient Records regulations: The Federal rules restrict any use of the information to criminally investigate or prosecute any alcohol or drug abuse patient.[facility] the event this information is protected by the Federal Confidentiality of Alcohol and Drug Abuse Patient Records regulations: The Federal rules restrict any use of the information to criminally investigate or prosecute any alcohol or drug abuse patient.[facility] the event this information is protected by the Federal Confidentiality of Alcohol and Drug Abuse Patient Records regulations: The Federal rules restrict any use of the information to criminally investigate or prosecute any alcohol or drug abuse patient.[facility] the event this information is protected by the Federal Confidentiality of Alcohol and Drug Abuse Patient Records regulations: The Federal rules restrict any use of the information to criminally investigate or prosecute any alcohol or drug abuse patient.[facility] the event this information is protected by the Federal Confidentiality of Alcohol and Drug Abuse Patient Records regulations: The Federal rules restrict any use of the information to criminally investigate or prosecute any alcohol or drug abuse patient.[facility] the event this information is protected by the Federal Confidentiality of Alcohol and Drug Abuse Patient Records regulations: The Federal rules restrict any use of the information to criminally investigate or prosecute any alcohol or drug abuse patient.[facility] the event this information is protected by the Federal Confidentiality of Alcohol and Drug Abuse Patient Records regulations: The Federal rules restrict any use of the information to criminally investigate or prosecute any alcohol or drug abuse patient.[facility] the event this information is protected by the Federal Confidentiality of Alcohol and Drug Abuse Patient Records regulations: The Federal rules restrict any use of the information to criminally investigate or prosecute any alcohol or drug abuse patient.[facility] Center[facility] the event this information is protected by the Federal Confidentiality of Alcohol and Drug Abuse Patient Records regulations: The Federal rules restrict any use of the information to criminally investigate or prosecute any alcohol or drug abuse patient.[facility] Center[facility] the event this information is protected by the Federal Confidentiality of Alcohol and Drug Abuse Patient Records regulations: The Federal rules restrict any use of the information to criminally investigate or prosecute any alcohol or drug abuse patient.[facility] FOR RECORDS PERTAINING TO PATIENTS [...] BE BASED ON THE PRIMARY CLINICAL RECORDS. [facility] [employer] [facility]. provides no warranty or guarantee of the accuracy or completeness of information in this document.
[2024-05-05] MEDS: ALBUTEROL SULFATE 2.5 MG/3 ML VIAL NEB IH (01:45)
[2024-05-05 01:51] LABS: Influenza Virus A Antigen Negative; Influenza Virus B Antigen Negative; Internal Control Within Normal Limits; SARS-CoV-2 Ag NEGATIVE (NEGATIVE)
[2024-05-05 01:58] LABS: Basophils Absolute Auto 0.1 10^3/uL (0.0-0.1); Basophils Percent Auto 0.5 % (0.2-2.0); Eosinophils Percent Auto 0.3 % (0.9-7.0); Hematocrit 44.3 % (36.0-48.0); Hemoglobin 14.5 g/dL (12.0-16.0); Immature Granulocytes Abs Auto 0.18 10^3/uL (0.00-0.03); Immature Granulocytes Pct Auto 1.3 % (0.0-0.5); Lymphocytes Absolute Auto 0.9 10^3/uL (1.2-3.8); Lymphocytes Percent Auto 6.9 % (20.5-60.0); Mean Corpuscular HGB Conc 32.7 g/dL (29.9-35.2); Mean Corpuscular Hemoglobin 29.6 pg (26.7-34.0); Mean Corpuscular Volume 90.4 fL (81.0-99.0); Mean Platelet Volume 11.5 fL (9.5-13.5); Monocytes Percent Auto 7.2 % (1.7-12.0); Neutrophils Absolute Auto 11.2 10^3/uL (1.4-6.5); Neutrophils Percent Auto 83.8 % (43.0-75.0); Platelet Count 230 10^3/uL (150-450); Red Cell Distribution Width 14.2 % (11.0-15.0); White Blood Count 13.4 10^3/uL (4.0-11.0)
[2024-05-05] MEDS: ONDANSETRON PF 4 MG/2 ML VIAL IV ×5 (02:19→23:40)
--- NOTE | 2024-05-05 02:28 | PC.NURSE ---
this patient is awake and alert sitting upright on the bed. this patient voices she feel better and can breath now. this patient voices no concerns and shows no signs of distress. this patient aware that we are waiting on all of the test results to come back
[2024-05-05 02:36] LABS: Anion Gap 10.8; BUN Creatinine Ratio 10.3; Carbon Dioxide 26.6 mmol/L (21.0-32.0); Chloride 102 mmol/L (98-107); Estimated GFR (African America >60 (>=60 mL/min/1.73m^2); Estimated GFR (Non-African Ame 54 (>=60 mL/min/1.73m^2); Glucose 144 mg/dL (74-106); Potassium 3.4 mmol/L (3.5-5.1); Sodium 136 mmol/L (136-145); Troponin I High Sensitivity 8.6 pg/mL (4.0-51.3)
--- NOTE | 2024-05-05 03:00 | RESP.RT ---
Titrated to 4 lpm NC
--- NOTE | 2024-05-05 03:02 | RESP.RT ---
Titrated to 2 lpm
[2024-05-05] MEDS: LEVOFLOXACIN IN DEXTROSE 5 % 750 MG/150 ML PREMIX 100 MG IV (03:03)
--- OUTSIDE RECORDS SUMMARY | 2024-05-05 03:21 | XMS_ITS | CCD ---
Author Organization [facility] Care Team Providers Care Science Faculty Member Name Role Phone Cristina Iqbal CNP Primary Care Provider [phone] Vipin Pina Attending Unavailable Roshni Werner Attending Unavailable Cristina Iqbal CNP Primary Care Provider [phone] CRISTINA IQBAL Primary Care Unavailable GEHLOT, UPENDER Attending Unavailable CRISTINA IQBAL Primary Care Unavailable GEHLOT, UPENDER Attending Unavailable CRISTINA IQBAL Primary Care Unavailable GEHLOT, UPENDER Attending Unavailable CRISTINA IQBAL Primary Care Unavailable GEHLOT, UPENDER Attending Unavailable ReneehCristina oh CNP Primary Care Provider Cristina Iqbal CNP Primary Care Provider Cristina Iqbal CNP Primary Care Provider [phone] PARKER IQBALA ALEE Primary Care Unavailable KIRSTEN [...] MORALES Attending Unavailable FREDERICK CHAVES Attending Unavailable AICHHOLZ, CRISTINA ALEE Primary Care Unavailable TIFFANI MORALES Referring Unavailable AICHHOLZ, CRISTINA ALEE Primary Care Unavailable TIFFANI MORALES Referring Unavailable TIFFANI MORALES Attending Unavailable ROGER, CRISTINA ALEE Primary Care Unavailable YAN GARCIA JR Attending Unavailable AICHHOLZ, CRISTINA ALEE Primary Care Unavailable JAYLIN ANASTASIYA Referring Unavailable AICHHOLZ, GRAIN WAFER MACHINE OPERATOR CRISTINA Primary Care Unavailable ANNELISE FRAZIER Admitting Unavailable ANNELISE FRAZIER Attending Unavailable ANNELISE FRAZIER Consulting Unavailable BELEN REGAN Consulting Unavailable IRINA SEGURA Admitting Unavailable IRINA SEGURA Attending Unavailable AICHHOLZ, GRAIN WAFER MACHINE OPERATOR CRISTINA Primary Care Unavailable MISC, DR DECKER Consulting Unavailable GEHLOT, UPENDER Admitting Unavailable GEHLOT, UPENDER Attending Unavailable AICHHOLZ, GRAIN WAFER MACHINE OPERATOR CRISTINA Referring Unavailable AICHHOLZ, GRAIN WAFER MACHINE OPERATOR CRISTINA Primary Care Unavailable GEHLOT, UPENDER Consulting Unavailable BENEDICT, DR RYDER Admitting Unavailable BENEDICT, DR RYDER Attending Unavailable AICHHOLZ, GRAIN WAFER MACHINE OPERATOR CRISTINA Primary Care Unavailable BENEDICT, DR RYDER Consulting Unavailable MISC, DR DECKER Admitting Unavailable MISC, DR DECKER Attending Unavailable AICHHOLZ, GRAIN WAFER MACHINE OPERATOR CRISTINA Primary Care Unavailable MISC, DR DECKER Consulting Unavailable AICHOLZ, GRAIN WAFER MACHINE OPERATOR CRISTINA Primary Care Unavailable PAY ., DR ZULUAGA Admitting Unavailable PAY ., DR ZULUAGA Attending Unavailable PAY ., DR ZULUAGA Consulting Unavailable CHITRA ALFARO Consulting Unavailable AICHHOLZ, GRAIN WAFER MACHINE OPERATOR CRISTINA Primary Care Unavailable PAY ., DR ZULUAGA Admitting Unavailable PAY ., DR ZULUAGA Attending Unavailable ZIEBER, DR RYDER R Consulting Unavailable PAY ., DR ZULUAGA Consulting Unavailable AICHOLZ, GRAIN WAFER MACHINE OPERATOR CRISTINA Primary Care Unavailable TJ .GELA Admitting Unavailable TJ ., GELA Attending Unavailable BARBI HENRY Consulting Unavailable TJ ., GELA Consulting [facility]available [facility] Physician [phone] Lala Zarco Primary Care Physician Eligio Noe Attending Unavailable Eligio Noe Admitting Unavailable Aichholz, Cristina J Primary Care Unavailable [facility] Primary Care Unavailable Sandoval Rae Admitting Unavailable Sandoval Rae Attending Unavailable Sandoavl Rae Referring Unavailable Sandoval Rae Attending Unavailable Sandoval Rae Attending Unavailable Sandoval Rae Attending Unavailable Sandoval Rae Attending Unavailable Lala Zarco Attending Unavailable Lala Zarco Attending Unavailable [facility] Unavailable Lala Zarco Attending Unavailable Sandoval Rae [...] bedtime), # 30 tab(s), Refills(s) 5, Pharmacy: [facility]/pharmacy #[id number], 169, cm, 03/23/24 13:17:00 EST, Height/Length [...] day(s), # 10 cap(s), Refills(s) 0, Pharmacy: [facility]/pharmacy #[id number], 172, cm, 09/24/23 13:02:00 EDT, Height/Length Dosing, 61.2, kg, 09/24/23 13:02:00 EDT, Weight Dosing Start Date: 09/24/23 Stop Date: 09/29/23 Status: Ordered cholestyramine resin 4000 mg powder for oral suspension (5 sources) Bile Acid Sequestrant Start: 024 Questran 4 g/9 g oral powder = 1 packet(s), Oral, BID, # 60 EA, Refills(s) 2, Pharmacy: [facility]/pharmacy #[id number], 169, cm, 01/16/24 10:14:00 EDT, Height/Length Dosing, 63.9, kg, 01/16/24 10:14:00 EDT, Weight Dosing Start Date: 01/16/24 Status: Ordered cloNIDine hydrochloride 0.2 mg oral tablet (20 sources) Central alpha-2 Adrenergic Agonist Start: End: take 1 tablet by mouth at bedtime cloNIDine 0.2 mg Tab 0.2 mg = 1 tab(s), Oral, Bedtime, # 30 tab(s), Refills(s) 1, Pharmacy: [facility]/pharmacy #[id number], 173, cm, 05/24/20 14:42:00 EST, Height/Length Dosing, 50.1, kg, 05/24/20 14:42:00 EST, Weight Dosing Start Date: 05/24/20 Status: Ordered colestipol hydrochloride 1000 mg oral tablet (5 sources) Bile Acid Sequestrant Start: take 2 tablets by mouth twice daily colestipol 1 g Tab 2 gm = 2 tab(s), Oral, BID, with a full glass of water, # 120 tab(s), Refills(s) 1, Pharmacy: [facility]/pharmacy #[id number], 169, cm, 01/16/24 10:14:00 EDT, Height/Length [...] anxiety, # 30 tab(s), Refills(s) 0, Pharmacy: [facility]/pharmacy #[id number], 173, cm, 04/26/20 13:07:00 EST, Height/Length [...] AFTERNOON, # 30 tab(s), Refills(s) 0, Pharmacy: [id number], 169.7, cm, 11/26/23 15:32:00 EDT, Height/Length Dosing, [...] Bedtime, # 30 tab(s), Refills(s) 0, Pharmacy: [facility]/pharmacy #[id number], 169.7, cm, 10/03/23 9:38:00 EDT, Height/Length [...] DAY, # 30 cap(s), Refills(s) 0, Pharmacy: [id number], 169, cm, 02/25/24 9:14:00 EST, Height/Length Dosing, 62.2, kg, 02/25/24 9:14:00 EST, Weight Dosing Start Date: 03/23/24 Status: Ordered Start: 02-24-2024 take 1 capsule by [facility] once daily omeprazole 20 mg Cap-DR See Instructions, TAKE 1 CAPSULE BY MOUTH EVERY DAY, # 30 cap(s), Refills(s) 0, Pharmacy: [facility] [id number], 169, cm, 02/21/24 8:47:00 EST, Height/Length Dosing, 62.2, kg, 02/21/24 8:47:00 EST, Weight Dosing Start Date: 02/24/24 Status: Ordered Start: 01-20-2024 take 1 capsule by [facility] once daily omeprazole 20 mg Cap- See Instructions, TAKE 1 CAPSULE BY MOUTH EVERY DAY, # 30 cap(s), Refills(s) 0, Pharmacy: [facility] [id number], 169, cm, 01/16/24 10:14:00 EDT, Height/Length Dosing, 63.9, kg, 01/16/24 10:14:00 EDT, Weight Dosing Start Date: 01/20/24 Status: Ordered Start: 12-04-2023 take 1 capsule by [facility] once daily omeprazole 20 mg Cap-DR See Instructions, TAKE 1 CAPSULE BY MOUTH EVERY DAY, # 30 cap(s), Refills(s) 0, Pharmacy: [facility]/pharmacy #[id number], 169.7, cm, 11/26/23 15:32:00 EDT, Height/Length Dosing, 62.1, kg, 11/26/23 15:32:00 EDT, Weight Dosing Start Date: 12/04/23 Status: Ordered ondansetron 4 mg oral tablet (20 sources) Serotonin-3 Receptor Antagonist Start: 02-27-2024 take 1 tablet by mouth every eight hours as needed for nausea Zofran 4 mg Tab 4 mg = 1 tab(s), Oral, q8hr, PRN Nausea, # 30 tab(s), Refills(s) 0, Pharmacy: [facility]/pharmacy #[id number], 169, cm, 02/25/24 9:14:00 EST, Height/Length Dosing, 62.2, kg, 02/25/24 9:14:00 EST, Weight Dosing Start Date: 02/27/24 Status: Ordered Start: 02-18-2024 ondansetron 8 mg Dis Tab See Instructions, DISSOLVE 1 TABLET ON THE TONGUE EVERY 8 HOURS NEEDED FOR NAUSEA AND VOMITING, # 24 tab(s), Refills(s) 0, Pharmacy: [facility]/pharmacy #[id number], 169, cm, 02/18/24 11:55:00 EST, Height/Length Dosing, 61.8, kg, 02/18/24 11:55:00 EST, Weight Dosing Start Date: 02/18/24 Status: Ordered Start: 12-20-2023 take 1 tablet by [facility] every six hours as needed for nausea ondansetron 4 mg Dis Tab 4 mg = 1 tab(s), Oral, q6hr, PRN Nausea/Vomiting, # 30 tab(s), Refills(s) 0, Pharmacy: [facility]/pharmacy #[id number], 169.7, cm, 11/26/23 15:32:00 EDT, Height/Length [...] Nausea, # 10 tab(s), Refills(s) 0, Pharmacy: [facility]/pharmacy #[id number], 173, cm, 04/26/20 13:07:00 EST, Height/Length [...] by mouth once daily. polyethylene glycol 3350 58804 mg powder for oral solution (18 sources) [...] TID, # 15 tab(s), Refills(s) 1, [id number], cm, 03/23/24 13:17:00 EST, Height/Length Dosing, 64.9, kg, 03/23/24 13:17:00 EST, Weight Dosing Start Date: 03/23/24 Status: Ordered Start: 09-24-2023 take 1 tablet by shahzad th three times daily promethazine 25 mg Tab 25 mg = 1 tab(s), Oral, TID, # 15 tab(s), Refills(s) 0, [id number], 172, cm, 09/24/23 13:02:00 EDT, Height/Length Dosing, 61.2, kg, 09/24/23 13:02:00 EDT, Weight Dosing Start Date: 09/24/23 Status: Ordered Start: 12-03-2021 take 1 tablet by shahzad every four hours promethazine 25 mg Tab 25 mg = 1 tab(s), Oral, q4hr, # 12 tab(s), Refills(s) 0, [id number], 172.9, cm, 12/03/21 10:15:00 EDT, Height/Length Dosing, 46.2, kg, 12/03/21 10:15:00 EDT, Weight Dosing Start Date: 12/03/21 Status: Ordered Start: 12-03-2021 Phenergan 25 m g Supp 25 mg = 1 supp, Rectal, q6hr, PRN as needed for nausea, Insert one per rectum every six hours as needed for nausea and vomiting, # 6 EA, Refills(s) 0, Pharmacy: [facility]/pharmacy #[id number], 172.9, cm, 12/03/21 10:15:00 EDT, Height/Length [...] day(s), # 56 tab(s), Refills(s) 0, Pharmacy: [facility]/pharmacy #[id number], 169, cm, 02/21/24 8:47:00 EST, Height/Length [...] Daily, # 4 gm, Refills(s) 11, Pharmacy: [facility]/pharmacy #[id number], 169.7, cm, 11/26/23 15:32:00 EDT, Height/Length [...] TID, # 15 tab(s), Refills(s) 0, Pharmacy: [facility]/pharmacy #[id number], 172, cm, 09/24/23 13:02:00 EDT, Height/Length Dosing, 61.2, kg, 09/24/23 13:02:00 EDT, Weight Dosing Start Date: 09/24/23 Status: Ordered Zofran ODT 8 mg Tab-Dis (5 sources) Start: 03-23-2024 take 1 tablet under the tongue every eight hours as needed for nausea Zofran ODT 8 mg Tab-Dis 8 mg = 1 tab(s), SubLingual, q8hr, PRN Nausea/Vomiting, # 24 tab(s), Refills(s) 0, Pharmacy: [facility]/pharmacy #[id number], 169, cm, 03/23/24 13:17:00 EST, Height/Length Dosing, 64.9, kg, 03/23/24 13:17:00 EST, Weight Dosing Start Date: 03/23/24 Status: Ordered Start: 02-12-2024 take 1 tablet under the tongue every eight hours as needed for nausea Zofran ODT 8 mg Tab-Dis 8 mg = 1 tab(s), SubLingual, q8hr, PRN Nausea/Vomiting, # 24 tab(s), Refills(s) 0, Pharmacy: [facility]/pharmacy #[id number], 169, cm, 01/16/24 10:14:00 EDT, Height/Length Dosing, 63.9, kg, 01/16/24 10:14:00 EDT, Weight Dosing Start Date: 02/12/24 Status: Ordered Start: 01-23-2024 take 1 tablet under the tongue every eight hours as needed for nausea Zofran ODT 8 mg Tab-Dis 8 mg = 1 tab(s), SubLingual, q8hr, PRN Nausea/Vomiting, # 24 tab(s), Refills(s) 0, Pharmacy: [facility]/pharmacy #[id number], 169, cm, 01/16/24 10:14:00 EDT, Height/Length [...] sources) H/O: high risk medication; Translations: [Other [facility] (current) drug therapy] Episodic Other and unspecified [...] 2021 Episodic Other aftercare (7 sources) Other [facility] (current) drug therapy; Translations: [Other [facility] (current) drug therapy] Onset: 09-19-2021 Episodic Other [...] Tetrahydrocannabinol (THC) dependence Refills: 5 Pickup at [facility]/pharmacy #[id number] Unchanged albuterol (albuterol 0.083% Inh Misty 3 [...] ACT 2 (more content not included)... Normal [facility] Gastroenterology Office/Clin ic Noteon 03-23-2024 Gastroenterology Office/Clinic [...] bedtime), # 30 tab(s), Refills(s) 5, [id number] 169, cm, 03/23/24 13:17:00 EST, Height/Length Dosing, 64.9, kg, 03/23/24 13:17:00 EST, Weight Dosing 2. Epigastric pain (R10.13: Epigastric pain) Ordered: amitriptyline, 25 mg = 1 tab(s), Oral, Once a day (at bedtime), # 30 tab(s), Refills(s) 5, [id number], 169, cm, 03/23/24 13:17:00 EST, Height/Length Dosing, 64.9, kg, 03/23/24 13:17:00 EST, Weight Dosing 3. Chronic diarrhea (K52.9: Noninfective gastroenteritis and colitis, unspecified) Ordered: amitriptyline, 25 mg = 1 tab(s), Oral, Once a day (at bedtime), # 30 tab(s), Refills(s) 5, [id number], 169, cm, 03/23/24 13:17:00 EST, Height/Length Dosing, 64.9, kg, 03/23/24 13:17:00 EST, Weight Dosing 4. History of colon polyps (Z86.0100: Personal history of colon polyps, unspecified) Ordered: amitriptyline, 25 mg = 1 tab(s), Oral, Once a day (at bedtime), # 30 tab(s), Refills(s) 5, [id number], 169, cm, 03/23/24 13:17:00 EST, Height/Length Dosing, 64.9, kg, 03/23/24 13:17:00 EST, Weight Dosing 5. Schatzki's ring (K22.2: Esophageal obstruction) Ordered: amitriptyline, 25 mg = 1 tab(s), Oral, Once a day (at bedtime), # 30 tab(s), Refills(s) 5, [id number], 169, cm, 03/23/24 13:17:00 EST, Height/Length Dosing, 64.9, kg, 03/23/24 13:17:00 EST, Weight Dosing 6. Gastropathy (K31.9: Disease of stomach and duodenum, unspecified) Ordered: amitriptyline, 25 mg = 1 tab(s), Oral, Once a day (at bedtime), # 30 tab(s), Refills(s) 5, Pharmacy: [facility]/pharmacy #[id number], 169, cm, 03/23/24 13:17:00 EST, Height/Length Dosing, 64.9, kg, 03/23/24 13:17:00 EST, Weight Dosing 7. Tetrahydr (more content not included)... Normal [facility] Comment on above: Result Comment: Elec tronically Signed By: Butch SANDOVAL, Sandoval Frost\.br\Date and Time Signed: 03/23/24 13:45 EST Urine Cultureon 03-15-2024 Bacteria identified Cx Nom (U) 50,000 colonies/ml mixed bacterial skin contaminants including mixed gram negative bacilli - 2 Days PERFORMED BY: [place] [address] PATHOLOGIST CHARGEMASTER ANALYST HARRIS CUELLAR M.D. Normal [facility] Comment on above: Performed By: #### C UU #### [address] Surgical Pathology Reporton 03-02-2024 [place] [address]- Surgical Pathology Report Collected Date/Time: 02/25/2024 10:41 [...] Entire specimen submitted in one cassette. (YC) [facility] Microscopic Description Microscopic examination performed unless gross [...] characteristics were determined by the [facility]. They have not been cleared or approved by the US Food and Drug Administration. The FDA has determined that such clearance or approval is not necessary. These tests are used for clinical purposes. They should not be regarded as investigational or for research. Appropriate positive and negative controls are performed and are acceptable. Normal [facility] Comment on above: Performed By: #### [id number] #### [facility] Laboratory [address] [place] [id number] Main OR Intraoperative Recor don 02-27-2024 Main OR Intraoperative Record Main OR Intraoperative Record IntraOp Document Type FT Summary Primary Physician: Sandoval Rae MD Finalized Date/Time: 02/27/24 07:51:23 Pt. Name: SAI PINEDA /Sex: 1970 Female Med Rec #: [id number] Physician: Sandoval Rae MD Financial #: [id number] Pt. Type: O Room/Bed: / Admit/Disch: 02/25/24 [...] Sandoval Allen RN, Chucho Calderon Role Performed SPLICING MACHINE OPERATOR AUTOMATIC Surgeon - Primary Net Washer - Primary Time In 02/25/24 10:32:00 02/25/24 [...] Allen RN, Mouchli MD, Sandoval Frost, Roque HAM DOCTOR, Luis Manuel Jacob Kirstyn K Time Out [...] Yes Le (more content not included)... Normal [facility] Discharge Instructionson Discharge Instructions Discharge Instructions SAI [...] Vomiting Historical (more content not included)... Normal [facility] Comment on above: Result Comment: Elec tronically [...] Nausea, vomiting, and epigastric pain -EGD Normal [facility] Main OR PACU II Recordon Main OR PACU II Record Main OR PACU II Record PACU Phase II Document Type FT Summary Primary Physician: Sandoval Rae MD Finalized Date/Time: 02/25/24 11:30:19 Pt. Name: SAI PINEDA /Sex: 1970 Female Med Rec #: [id number] Physician: Sandoval Rae MD Financial #: [id number] Pt. Type: O Room/Bed: / Admit/Disch: 02/25/24 [...] By: Christin Hensley I 02/25/24 11:30 Normal [facility] Main OR Preoperative Recordo n 02-25-2024 Main OR Preoperative Record Main OR Preoperative Record Holding Area Document Type FT Summary Primary Physician: Sandovla Rae MD Finalized Date/Time: 02/25/24 09:16:52 Pt. Name: SAI PINEDA/Sex: 1970 Female Med Rec #: [id number] Physician: Sandoval Rae MD Financial #: [id number] Pt. Type: O Room/Bed: / Admit/Disch: 02/25/24 [...] By: Mely Montilla RN 02/25/24 09:16 Normal [facility] Operative Reporton Operative Report Operative Report Patient: [...] day(s), # 56 tab(s), Refills(s) 0, [id number], 169, cm, 02/21/24 8:47:00 EST, Height/Length Dosing, 62.2, kg, 02/21/24 8:47:00 EST, Weight Dosing Questran 4 g/9 g oral powder: = 1 packet(s), Oral, BID, # 60 EA, Refills(s) 2, [id number], 169, cm, 01/16/24 10:14:00 EDT, Height/Length Dosing, 63.9, kg, 01/16/24 10:14:00 EDT, Weight Dosing Spiriva Respimat 60 ACT 2.5 mcg/inh inhalation aerosol: = 2 inh, Inhalation, Daily, # 4 gm, Refills(s) 11, [id number], 169.7, cm, 11/26/23 15:32:00 EDT, Height/Length Dosing, 62.1, kg, 11/26/23 15:32:00 EDT, Weight Dosing Zofran 4 mg Tab: 4 mg = 1 tab(s), Oral, q8hr, PRN Nausea, # 10 tab(s), Refills(s) 0, [id number], 173, cm, 04/26/20 13:07:00 EST, Height/Length Dosing, 52.8, kg, 04/26/20 13:07:00 EST, Weight Dosing Zofran ODT 4 mg Tab-Dis: 4 mg = 1 tab(s), Oral, TID, # 15 tab(s), Refills(s) 0, [id number], 172, cm, 09/24/23 13:02:00 EDT, Height/Length Dosing, 61.2, kg, 09/24/23 13:02:00 EDT, Weight Dosing Zofran ODT 8 mg Tab-Dis: 8 mg = 1 tab(s), SubLingual, q8hr, PRN Nausea/Vomiting, # 24 tab(s), Refills(s) 0, [id number], 169, cm, 01/16/24 10:14:00 EDT, Height/Length Dosing, 63.9, kg, 01/16/24 10:14:00 EDT, Weight Dosing cloNIDine 0.2 mg Tab: 0.2 mg = 1 tab(s), Oral, Bedtime, # 30 tab(s), Refills(s) 1, [id number], 173, cm, 05/24/20 14:42:00 EST, Height/Length Dosing, 50.1, kg, 05/24/20 14:42:00 EST, Weight Dosing colestipol 1 g Tab: 2 gm = 2 tab(s), Oral, BID, with a full glass of water, # 120 tab(s), Refills(s) 1, [id number], 169, cm, 01/16/24 10:14:00 EDT, Height/Length Dosing, 63.9, kg, 01/16/24 10:14:00 EDT, Weight Dosing hydrOXYzine hydrochloride 50 mg oral tablet: 50 mg = 1 tab(s), Oral, TID, PRN as needed for anxiety, # 30 tab(s), Refills(s) 0, [id number], 173, cm, 04/26/20 13:07:00 EST, Height/Length Dosing, 52.8, kg, 04/26/20 13:07:00 EST, Weight Dosing lamotrigine 25 mg Tab: See Instructions, TAKE 1 TABLET BY MOUTH EVERY DAY IN THE AFTERNOON, # 30 tab(s), Refills(s) 0, Pharmacy: [facility] [id number], 169.7, cm, 11/26/23 15:32:00 EDT, Height/Length Dosing, 62.1, kg, 11/26/23 15:32:00 EDT, Weight Dosing mirtazapine 7.5 mg oral tablet: 7.5 mg = 1 tab(s), Oral, Bedtime, # 30 tab(s), Refills(s) 0, [id number], 169.7, cm, 10/03/23 9:38:00 EDT, Height/Length Dosing, 62.5, kg, 10/03/23 9:38:00 EDT, Weight Dosing omeprazole 20 mg Cap-DR: See Instructions, TAKE 1 CAPSULE BY MOUTH EVERY DAY, # 30 cap(s), Refills(s) 0, Pharmacy: [facility] [id number], 169, cm, 02/21/24 8:47:00 EST, Height/Length Dosing, 62.2, kg, 02/21/24 8:47:00 EST, Weight Dosing ondansetron 4 mg Dis Tab: 4 mg = 1 tab(s), Oral, q6hr, PRN Nausea/Vomiting, # 30 tab(s), Refills(s) 0, [id number], 169.7, cm, 11/26/23 15:32:00 EDT, Height/Length Dosing, 62.1, kg, 11/26/23 15:32:00 EDT, Weight Dosing ondansetron 8 mg Dis Tab: See Instructions, DISSOLVE 1 TABLET ON THE TONGUE EVERY 8 HOURS NEEDED FOR NAUSEA AND VOMITING, # 24 tab(s), Refills(s) 0, [id number], 169, cm, 02/18/24 11:55:00 EST, Height/Length Dosing, 61.8, kg, 02/18/24 11:55:00 EST, Weight D... promethazine 25 mg Tab: 25 mg = 1 tab(s), Oral, TID, # 15 tab(s), Refills(s) 0, [id number], 169, cm, 01/16/24 10:14:00 EDT, Height/Length Dosing, 63.9, kg, 01/16/24 10:14:00 EDT, Weight Dosing promethazine 25 mg Tab: See Instructions, TAKE 1 TABLET BY MOUTH THREE TIMES A DAY, # 30 tab(s), Refills(s) 1, Pharmacy: [facility]/pharmacy #[id number], 169, cm, 02/18/24 11:55:00 EST, Height/Length Dosing, 61.8, kg, 02/18/24 11:55:00 EST, Weight Dosing Documented Medications Documented Protonix 40 mg Tab-DR: Oral, 0 Refill(s), Refills(s) 0 Spiriva Respimat 10 ACT 2.5 mcg/inh inhalation aerosol: = 2 puff(s), Inhalation, Daily, Refi (more content not included)... Normal [facility] Comment on above: Result Comment: Elec tronically Signed By: Butch SANDOVAL, Sandoval Frost\.br\Date and Time Signed: 02/25/24 10:51 EST Other Comment: Linda mendosa Attachment - attachment storage system not supported [id number] Can be viewed in source systemMissing Attachment - attachment storage system not supported [id number] Can be viewed in source systemMissing Attachment - attachment storage system not supported [id number] Can be viewed in source systemMissing Attachment - attachment storage system not supported [id number] Can be viewed in source systemMissing Attachment - attachment storage system not supported [id number] Can be viewed in source systemMissing Attachment - attachment storage system not supported [id number] Can be viewed in source systemMissing Attachment - attachment storage system not supported [id number] Can be viewed in source systemMissing Attachment - attachment storage system not supported [id number] Can be viewed in source systemMissing Attachment - attachment storage system not supported [id number] Can be viewed in source systemMissing Attachment - attachment storage system not supported [id number] Can be viewed in source system Ambulatory Visit Summaryon 1 04-23-2023 Ambulatory Visit Summary Ambulatory Visit Summary FATUMABJSAI S :1970 Visit Date:02/21/2024 Ambulatory Visit Instructions [...] aerosol) (more content not included)... Normal [facility] Gastroenterology Office/Clin ic Noteon 02-21-2024 Gastroenterology Office/Clinic [...] to discuss capsule. (Had one completed at [facility] 2021)- results below Last visit w/ Dr Rae History of Present Illness pt with weight loss, throw up, and diarrhea capsule endoscopy done at [facility] and was found to have stomach [...] clips were successfully placed (MR conditional). 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 There was no bleeding at the end of the maneuver. Exam of the jejunum was otherwise normal. Impression: - Atrophic mucosa. - Jejunal polyp(s). Resected a (more content not included)... Normal [facility] Comment on above: Result Comment: Elec tronically [...] Someone Will Contact You Regarding These Appointments [facility] External Ambulatory Referral, Neurology, [place] office, 02/18/24 [...] NEEDED FOR NAUSEA AND VOMITING Pickup at [facility]/pharmacy #[id number] Unchanged ondansetron (Zofran 4 mg Tab) [...] MOUTH THREE TIMES A DAY Pickup at [facility]/pharmacy #[id number] [id number] [address], [place] [id number] [phone] Allergies No Known Allergies Problems Ongoing - Any problem that you are currently receiving treatment for. Apnea, sleep Bipolar 1 disorder, mixed, moderate Chronic diarrhea Chronic GERD Chronic obstructive pulmonary disease (COPD) Chronic post-traumatic stress disorder (PTSD) COPD - Chronic obstructive pulmonary disease COPD without exacerbation Diarrhea Dietary counseling Epigastric pain Establishing care with new doctor, encounter for Exercise counseling MONO (generalized anxiety disorder) Gastropathy History of abdominal surgery History of colon polyps Hypotension Malnutrition Maternal family history of (more content not included)... Normal [facility] Family Medicine Office/Clini c Noteon 02-18-2024 Family Medicine Office/Clinic Note Family Medicine Office/Clinic Note Chief Complaint N&V & Diarrhea HPI Staff Sai is a 53 year old female presenting with diarrhea, vomiting. AMILCAR 11/27/23 pt here for the same reason. Sent home with stool sample supplies. Pt did see [facility] 01/16/24 for diarrhea & N&V. Tx'd w/[facility] did order CTE, however pt no showed [...] neuro consult. her mother has dementia. Ordered: [facility] External Ambulatory Referral 2. Maternal family history of dementia (Z81.8: Family history of other mental and behavioral disorders) mother has dementia Ordered: [facility] External Ambulatory Referral 3. Nausea and vomiting [...] VOMITING, # 24 tab(s), Refills(s) 0, Pharmacy: [facility]/pharmacy #[id number], 169, cm, 02/18/24 11:55:00 EST, Height/Length Dosing, 61.8, kg, 02/18/24 11:55:00 EST, Weight D... promethazine, See Instructions, TAKE 1 TABLET BY MOUTH THREE TIMES A DAY, # 30 tab(s), Refills(s) 1, Pharmacy: [facility]/pharmacy #[id number], 169, cm, 02/18/24 11:55:00 EST, Height/Length [...] Esophagogastroduodenoscopy (04/19 (more content not included)... Normal [facility] Comment on above: Result Comment: Elec tronically [...] start: Years ago. Had capsule done at [facility] and surgery. Dr Tiffani Morales. Constant? [...] up, and diarrhea capsule endoscopy done at [facility] and was found to have stomach [...] Oral, TID, (more content not included)... Normal [facility] Comment on above: Result Comment: Elec tronically [...] to get in, will send referral to [facility] 2. Vomiting (R11.10: Vomiting, unspecified) pt is asking for refill on omeprazole 3. Smoker (F17.200: Nicotine dependence, unspecified, uncomplicated) consider not smoking 4. BMI 21.0-21.9, adult (Z68.21: Body mass index [BMI] 21.0-21.9, adult) BMI education given Orders: lamotrigine, See Instructions, TAKE 1 TABLET BY MOUTH EVERY DAY IN THE AFTERNOON, # 30 tab(s), Refills(s) 0, [id number], 169.7, cm, 10/03/23 9:38:00 EDT, Height/Length Dosing, 62.5, kg, 10/03/23 9:38:00 EDT, Weight Dosing lamotrigine, See Instructions, TAKE 1 TABLET EVERY MORNING, # 30 tab(s), Refills(s) 0, [id number], 169.7, cm, 10/03/23 9:38:00 EDT, Height/Length Dosing, 62.5, kg, 10/03/23 9:38:00 EDT, Weight Dosing lamotrigine, See Instructions, TAKE 1 TABLET BY MOUTH EVERY DAY IN THE AFTERNOON, # 30 tab(s), Refills(s) 0, Pharmacy: [facility] [id number], 169.7, cm, 11/26/23 15:32:00 EDT, Height/Length Dosing, 62.1, kg, 11/26/23 15:32:00 EDT, Weight Dosing nitrofurantoin, 100 mg = 1 cap(s), Oral, BID, X 7 day(s), # 14 cap(s), Refills(s) 0, [id number], 169.7, cm, 11/26/23 15:32:00 EDT, Height/Length Dosing, 62.1, kg, 11/26/23 15:32:00 EDT, Weight Dosing omeprazole, 20 mg = 1 cap(s), Oral, Daily, # 30 cap(s), Refills(s) 0, Pharmacy: [facility]/pharmacy #[id number], 169.7, cm, 10/03/23 9:38:00 EDT, Height/Length Dosing, 62.5, kg, 10/03/23 9:38:00 EDT, Weight Dosing omeprazole, See Instructions, TAKE 1 CAPSULE BY MOUTH EVERY DAY, # 30 cap(s), Refills(s) 0, Pharmacy: [id number], 169.7, cm, 11/26/23 15:32:00 EDT, Height/Length Dosing, 62.1, kg, 11/26/23 15:32:00 EDT, Weight Dosing tiotropium, = 2 inh, Inhalation, Daily, # 4 gm, Refills(s) 11, [id number], 169.7, cm, 11/26/23 15:32:00 EDT, Height/Length [...] tab(s), Or (more content not included)... Normal [facility] Comment on above: Result Comment: Elec tronically [...] hours as needed for Nausea/Vomiting Pickup at [facility]/pharmacy #[id number] Unchanged ondansetron (Zofran 4 mg Tab) [...] 2 Puffs Inhalation Every day Pharmacy Information [facility]/pharmacy #[id number]: [address], [place] [id number] [phone] Allergies No Known Allergies Problems Ongoing - [...] you for choosing us for your care. [facility] ED Note-Physicianon 10-21-19 ED Note-Physician ED Note-Physician [...] NS 1000 ml Bolus, 1000 mL, IV [id number] [F] 25 mg + Sodium Chloride 0.9% [...] CHANCE SERRANO In 3 days 09/27/[address] [place] [phone] [id number] [employer] (1) Additional Instructions: Patient Education Urinary Tract [...] made to ensure accuracy, however, inadvertently computerized picking supervisor mistakes may be present. Appropriate healthcare PPE [...] to inadequa (more content not included)... Normal [facility] Comment on above: Result Comment: Elec tronically [...] visit: month or so ago Last provider: [facility] Any recent labs: IN ER 09/23 [...] acel/tetanus adult 10/11/19 (more content not included)... [facility] Comment on above: Result Comment: Elec tronically [...] Locations R1: [facility], [address] [place] [address], [id number] , , [facility] Comment on above: Performed By: #### 2 [id number] ####[facility] [address] [place] [address] CHEMISTRYOrdered By: SYSTEM SYSTEM on 09-24-2023 Albumin [...] that meet specific criteria set forth by [facility]. Epithelial cells.squamous Auto (Urine sed) [#/Area] [...] UA Auto SS Work Phone: Zi 05-08-2022 [facility] Telephone (GASTA5) SAI PINEDA ([id number]) 1970 F Date Time Provider Department 05/08/22 TIFFANI MORALES GASTA5 During your visit today, we recorded the following information about you: Eva Chong 05/08/2022 10:45 AM Signed 05/08/22 Patient calling to see if Dr Morales will write her a script for Zofran nausea medication strips. [facility] in [place] [phone] Eva Covarrubias, HERNÁN 05/11/2022 10:05 AM Signed [...] Fully Assessed Reason for Visit: Patient Question [4037] Order(s):ondansetron orally disintegrating (ZOFRAN ODT) 8 mg [...] Status:Closed by TIFFANI MORALES on 05/10/22 Normal [facility] COPPER, SERUM or PLASMAon Copper, Serum 129 ug/dL Normal 80-158 [facility] Comment on above: Result Comment: Dete ction Limit = 5 Performed By: #### C OPPER #### [facility] [address] [address] [address] Prince Olivas FATTY ACID PROFILEon 023 a-Linolenic Acid C18:3w3 81 nmol/mL Normal 20-200 [facility] Comment on above: Performed By: #### M MA2 #### [facility] [address] [address] [address] Prince Olivas Arachidic Acid C20:0 31 nmol/mL Normal 8-43 [facility] Comment on above: Performed By: #### Marine MA2 #### [facility] [address] [address] [address] Prince Olivas Arachidonic Acid, C20:4w6 943 nmol/mL Normal 310-1420 [facility] Comment on above: Performed By: #### Marine MA2 #### [facility] [address] [address] [address] Prince Olivas DHA, C22:6w3 85 nmol/mL Normal 45-365 [facility] Comment on above: Performed By: #### M MA2 #### [facility] [address] [address] [address] Prince Olivas Docosenoic Acid C22:1 5 nmol/mL Normal 1-10 [facility] Comment on above: Performed By: #### M MA2 #### [facility] [address] [address] [address] Prince Olivas DPA, C22:5w3 58 nmol/mL Normal 13-75 [facility] Comment on above: Performed By: #### M MA2 #### [facility] [address] [address] [address] Prince Olivas DPA, C22:5w6 18 nmol/mL Normal 6-55 [facility] Comment on above: Performed By: #### Marine CAMPBELL2 #### [facility] [address] [address] [address] Prince Olivas DTA, C22:4w6 28 nmol/mL Normal 10-40 [facility] Comment on above: Performed By: #### Marine CAMPBELL2 #### [facility] [address] [place] [address] Dr. Prince Olivas EER Fatty Acid Profile, [facility] See Note Normal [facility] Comment on above: Result Comment: Auth orized individuals can access the [facility] Enhanced Report using the following link: [email or web address] Performed By: #### Marine CAMPBELL2 #### [facility] [address] [place] [address] Dr. Prince Olivas EPA, C20:5w3 90 nmol/mL Normal 8-130 [facility] Comment on above: Performed By: #### Marine CAMPBELL2 #### [facility] [address] [place] [address] Dr. Prince Olivas g-Linolenic Acid C18:3w6 139 nmol/mL Critically high 10-120 [facility] Comment on above: Performed By: #### Marine CAMPBELL2 #### [facility] [address] [address] [address] Prince Olivas i-g-Ynpkxmatc Acid C20:3w6 211 nmol/mL Normal 45-340 [facility] Comment on above: Performed By: #### Marine CAMPBELL2 #### [facility] [address] [place] [address] Dr. Prince Olivas Hexadecenoic Acid C16:1w9 56 nmol/mL Normal 14-95 [facility] Comment on above: Performed By: #### Marine CAMPBELL2 #### [facility] [address] [place] [address] Dr. Prince Olivas Image . Normal [facility] Comment on above: Performed By: #### M MA2 #### [facility] [address] [address] [address] Prince Onealp, Fatty Acids Profile SP See Note Normal [facility] Comment on above: Result Comment: Incr eased concentration of omega-6 gamma- linolenic acid, possibly reflecting dietary artifacts. INTERPRETIVE INFORMATION: Fatty Acids Profile, Essential Ser/Plas This test does not screen for disorders of peroxisomal biogenesis/function. This test was developed and its performance characteristics determined by [employer]. It has not been cleared or approved by the [place] Food and Drug Administration. This test was performed in a CLIA certified laboratory and is intended for clinical purposes. Performed By: #### Marine MA2 #### [facility] [address] [place] [address] Dr. Prince Olivas Lauric Acid C12:0 12 nmol/mL Normal 1-200 [facility] Comment on above: Performed By: #### Marine MA2 #### [facility] [address] [place] [address] Dr. Prince Olivas Linoleic Acid C18:2w6 3844 nmol/mL Normal 4845-0587 [facility] Comment on above: Performed By: #### Marine MA2 #### [facility] [address] [address] [address] Prince Olivas Whitney Acid C20:3w9 29 nmol/mL Normal 1-35 [facility] Comment on above: Performed By: #### Marine MA2 #### [facility] [address] [address] [address] Prince Olivas Myristic Acid C14:0 178 nmol/mL Normal 20-520 [facility] Comment on above: Performed By: #### Marine MA2 #### [facility] [address] [place] [address] Dr. Prince Olivas Nervonic Acid C24:1w9 138 nmol/mL Normal 35-145 [facility] Comment on above: Performed By: #### Marine MA2 #### [facility] [address] [place] [address] Dr. Prince Olivas Oleic Acid C18:1w9 2898 nmol/mL Normal 740-3900 [facility] Comment on above: Performed By: #### M MA2 #### [facility] [address] [address] [address] Prince Olivas Palmitic Acid C16:0 3316 nmol/mL Normal 7476-7124 [facility] Comment on above: Performed By: #### M MA2 #### [facility] [address] [address] [address] Prince Olivas Palmitoleic Acid C16:1w7 355 nmol/mL Normal 35-580 [facility] Comment on above: Performed By: #### M MA2 #### [facility] [address] [address] [address] Prince Olivas Stearic Acid C18:0 1072 nmol/mL Normal 280-1250 [facility] Comment on above: Performed By: #### M MA2 #### [facility] [address] [address] [address] Prince Olivas Total Fatty Acids 13.7 mmol/L Normal 4.5-15.0 [facility] Comment on above: Performed By: #### M MA2 #### [facility] [address] [address] [address] Prince Olivas Total Monounsaturated Acid 3.6 mmol/L Normal 0.9-4.7 [facility] Comment on above: Performed By: #### M MA2 #### [facility] [address] [address] [address] Prince Olivas Total Polyunsaturated Acid 5.5 mmol/L Normal 2.1-6.2 [facility] Comment on above: Performed By: #### M MA2 #### [facility] [address] [address] [address] Prince Olivas Total Saturated Acid 4.6 mmol/L Normal 1.5-5.3 [facility] Comment on above: Performed By: #### M MA2 #### [facility] [address] [address] [address] Prince Olivas Total w3 0.31 mmol/L Normal 0.12-0.55 [facility] Comment on above: Performed By: #### M MA2 #### [facility] [address] [address] [address] Prince Olivas Total w6 5.2 mmol/L Normal 1.8-5.7 [facility] Comment on above: Performed By: #### M MA2 #### [facility] [address] [address] [address] Prince Olivas Triene Tetraene Ratio 0.031 Normal 0.004-0.051 [facility] Comment on above: Performed By: #### M MA2 #### [facility] [address] [address] [address] Prince Olivas Vaccenic Acid C18:1w7 149 nmol/mL Normal 50-250 [facility] Comment on above: Performed By: #### M MA2 #### [facility] [address] [address] [address] Pricne Olivas VITAMIN Aon 04-06-2022 Vitamin A 54.9 ug/dL Normal 20.1-62.0 [facility] Comment on above: Result Comment: Refe [...] Administration. Performed By: #### M MA2 #### [facility] [address] [address] [address] Prince Olivas VITAMIN Luciano 04-06-2022 Vitamin E (Alpha T) 9.9 mg/L Normal 7.0-25.1 [facility] Comment on above: Performed By: #### Domo HOLLAND #### [facility] [address] [address] [address] Prince Olivas Vitamin E (Gamma T) 2.1 mg/L Normal 0.5-5.5 [facility] Comment on above: Result Comment: Refe rence intervals for alpha and gamma- tocopherol determined from National Health and Nutrition Examination Survey, 2222-9151. Individuals with alpha-tocopherol levels less than 5.0 mg/L are considered vitamin E deficient. Performed By: #### S ELNIUM #### [facility] [address] [place] [address] Dr. Prince Olivas ZINC SERUM OR PLASMAon 04-06 Zinc, Plasma or Serum 75 ug/dL Normal 44-115 [facility] Comment on above: Result Comment: Dete ction Limit = 5 Performed By: #### L IPID, CMP #### [facility] [id number] Prince Olivas CNPNon 04-05-2022 CNPN Telephone (GASTA5) SAI PINEDA ([id number]) 1970 F Date Time Provider Department 04/05/22 [...] Status:Closed by TIFFANI MORALES on 04/05/22 Normal [facility] METHYLMALONIC ACID (MMA)on 0 04-05-2022 Methylmalonic Acid, Serum 498 nmol/L Critically high 0-378 [facility] Comment on above: Performed By: #### M MA2 #### [facility] [address] [place] [address] Dr. Prince Olivas ANES POSTPROC EVALon 023 ANES POSTPROC EVAL HNO ID: [id number] Author: Altagracia Salvador MD Service: ? Author [...] Morales MD; Altagracia Salvador MD; Frederick Chaves APRN.SPLICING MACHINE OPERATOR AUTOMATIC Responsible Provider: Altagracia Salvador MD Anesthesia Type: [...] with this procedure. Documented by Frederick Chaves APRN.SPLICING MACHINE OPERATOR AUTOMATIC 04/04/2022 3:31 PM EST SIGNATURE: Altagracia Salvador MD PATIENT NAME: Sai Pineda DATE: April 04, 2022 TIME: 3:51 PM CSN: [id number] Normal [facility] ANES PRE-OPon 04-04-2022 ANES PRE-OP HNO ID: [id number] Author: Altagracia Salvador MD Service: ? Author Type: Anesthesiologist Type: Anesthesia Preprocedure Evaluation Filed: 04/04/2022 12:56 PM Note Text: ANESTHESIOLOGY DAY OF SURGERY NOTE : 1970 Procedure Information Date/Time: 04/04/22 1300 Scheduled providers: Tiffani Morales MD; Altagracia Salvador MD; Frederick Chaves APRN.SPLICING MACHINE OPERATOR AUTOMATIC Procedure: ENTEROSCOPY Location: Gastroenterology Estimated body mass [...] April 04, 2022 TIME: 12:55 PM CSN: [id number] Normal [facility] ENTEROSCOPYon 04-04-2022 [facility] HISTORY PHYSICALon 3 HISTORY PHYSICAL HNO ID: [id number] Author: Tiffani Morales MD Service: Gastroenterology Author [...] Sai Pineda DATE: 04/04/2022 TIME: 1302 Normal [facility] METHYLMALONIC ACID (MMA)on 0 04-04-2022 Methylmalonic Acid, Serum 397 nmol/L Critically high 0-378 [facility] Comment on above: Performed By: #### M MA2 #### [facility] [address] [address] [address] Prince Olivas NURSING PROGon 04-04-2022 NURSING PROG HNO ID: [id number] Author: Eduardo Harrington RN Service: Nursing Author [...] Electronically Signed By: Eduardo Harrington RN Normal [facility] NURSING PROG HNO ID: [id number] Author: Rima Kirk RN Service: Nursing Author [...] Rima Kirk RN In Department: GASTROENTEROLOGY Normal [facility] SELENIUM, PLASMAon 3 Selenium, Serum/Plasma 124 ug/L Normal 93-198 [facility] Comment on above: Performed By: #### S ELNIUM #### [facility] [address] [place] [address] Dr. Prince Olivas SURGICAL PATHOLOGYon 023 CASE REPORT Normal [facility] Comment on above: Order Comment: Speci men Type: TISSUE SPECIMENOrdering Facility: [facility] Address: [address] [place] [address] Result Comment: Surg ical Pathology Report Case: [id number] Authorizing Provider: Tiffani Morales MD Collected: 04/04/2022 02:57 PM Ordering Location: Gastroenterology Received: 04/04/2022 05:34 PM Pathologist: Gonzalo Lemons MD Specimen: JEJUNUM BIOPSY, polyp: r/o adenoma Performed By: #### S ####[facility] [id number] [address] FINAL DIAGNOSIS Normal [facility] Comment on above: Order Comment: Speci men Type: TISSUE SPECIMENOrdering Facility: [facility] Address: [address] [place] [address] Result Comment: Santosh Saleh ejunum, polyp, biopsy: - Small intestine with gastric heterotopia. - Negative for dysplasia and malignancy. Performed By: #### S ####[facility] [id number] [place] [address] [place] FINAL PERFORMING LAB Normal [facility] Comment on above: Order Comment: Speci men Type: TISSUE SPECIMENOrdering Facility: [facility] Address: [address] [address] Result Comment: Diag nostic interpretation performed at [facility], [address] [place] [address] CLIA# [id number] Swine Extension Field Specialist: Constantin Quevedo M.D. Performed By: #### S ####[facility] [id number] [address] [place] GROSS DESCRIPTION Normal [facility] Comment on above: Order Comment: Speci men Type: TISSUE SPECIMENOrdering Facility: [facility] Address: [address] [place] [address] Result Comment: A. J EJUNUM BIOPSY Received in formalin is a segment of proctor polypoid tissue measuring 1.2 x 1.0 x 0.4 cm. No stalk is noted. The line of resection is noted. The specimen is bisected and totally submitted in formalin in one cassette. Gross examination performed at [facility], [address] [place] [address] 04/04/2022 10:13 PM Performed By: #### S ####[facility] [id number] [place] [address] [place] FOLATE, RBC AND SERUMon 03-18 Folate 7.5 ng/mL Normal >3.0 [facility] Comment on above: Result Comment: A se rum folate concentration of less than 3.1 ng/mL is considered to represent clinical deficiency. Performed By: #### L IPID, CMP #### [facility] [address] [address] [address] Prince Olivas Folate, Hemolysate 297.0 ng/mL Normal Not Estab. [facility] Comment on above: Performed By: #### L IPID, CMP #### [facility] [address] [address] [address] Prince Olivas Folate, RBC 721 ng/mL Normal >498 [facility] Comment on above: Performed By: #### L IPID, CMP #### [facility] [address] [address] [address] Prince Olivas Hematocrit (Bld) [Volume fraction] 41.2 % Normal 34.0-46.6 [facility] Comment on above: Performed By: #### L IPID, CMP #### [facility] [address] [address] [address] Prince Olivas CBC AUTO DIFFon 03-31-2022 BASO # 0.1 103/ul Normal 0.0-0.1 [facility] Comment on above: Performed By: #### L IPID, CMP #### [facility] [address] [place] [address] Dr. Prince Olivas Basophils/100 WBC (Bld) 0.6 % Normal 0.2-2.0 [facility] Comment on above: Performed By: #### L IPID, CMP #### [facility] [address] [place] [address] Dr. Prince Olivas EO # 0.2 103/ul Normal 0.0-0.7 [facility] Comment on above: Performed By: #### L IPID, CMP #### [facility] [address] [place] [address] Dr. Prince Olivas Eosinophils/100 WBC (Bld) 2.9 % Normal 0.9-7.0 [facility] Comment on above: Performed By: #### L IPID, CMP #### [facility] [address] [address] [address] Prince Olivas Erythrocyte distribution width (RBC) [Ratio] 13.2 % Normal 11.0-15.0 [facility] Comment on above: Performed By: #### L IPID, CMP #### [facility] [address] [place] [address] Dr. Prince Olivas Hematocrit (Bld) [Volume fraction] 41.1 % Normal 36.0-48.0 [facility] Comment on above: Performed By: #### L IPID, CMP #### [facility] [address] [place] [address] Dr. Prince Olivas Hemoglobin (Bld) [Mass/Vol] 13.6 g/dL Normal 12.0-16.0 [facility] Comment on above: Performed By: #### L IPID, CMP #### [facility] [address] [place] [address] Dr. Prince Olivas IG # 0.04 10e3/ul Critically high 0.00-0.03 [facility] Comment on above: Performed By: #### L IPID, CMP #### [facility] [address] [place] [address] Dr. Prince Olivas IG % 0.5 % Normal 0.0-0.5 [facility] Comment on above: Performed By: #### L IPID, CMP #### [facility] [address] [place] [address] Dr. Prince Olivas LYMPH # 2.5 103/ul Normal 1.2-3.8 [facility] Comment on above: Performed By: #### L IPID, CMP #### [facility] [address] [place] [address] Dr. Prince Olivas Lymphocytes/100 WBC (Bld) 31.5 % Normal 20.5-60.0 [facility] Comment on above: Performed By: #### L IPID, CMP #### [facility] [address] [place] [address] Dr. Prince Olivas MANUAL DIFF REQ NO Normal [facility] Comment on above: Performed By: #### L IPID, CMP #### [facility] [address] [place] [address] Dr. Prince Olivas MCH (RBC) [Entitic mass] 30.5 pg Normal 26.7-34.0 [facility] Comment on above: Performed By: #### L IPID, CMP #### [facility] [address] [place] [address] Dr. Prince Olivas MCHC (RBC) [Mass/Vol] 33.1 g/dL Normal 29.9-35.2 [facility] Comment on above: Performed By: #### L IPID, CMP #### [facility] [address] [place] [address] Dr. Prince Olivas MCV (RBC) [Entitic vol] 92.2 fL Normal 81.0-99.0 [facility] Comment on above: Performed By: #### L IPID, CMP #### [facility] [address] [place] [address] Dr. Prince Olivas MONO # 0.6 103/ul Normal 0.3-0.8 [facility] Comment on above: Performed By: #### L IPID, CMP #### [facility] [address] [place] [address] Dr. Prince Olivas Monocytes/100 WBC (Bld) 7.0 % Normal 1.7-12.0 [facility] Comment on above: Performed By: #### L IPID, CMP #### [facility] [address] [place] [address] Dr. Prince Olivas NEUT # 4.5 103/ul Normal 1.4-6.5 [facility] Comment on above: Performed By: #### L IPID, CMP #### [facility] [address] [place] [address] Dr. Prince Olivas Neutrophils/100 WBC (Bld) 57.5 % Normal 43.0-75.0 [facility] Comment on above: Performed By: #### L IPID, CMP #### [facility] [address] [place] [address] Dr. Prince Olivas Platelet mean volume (Bld) [Entitic vol] 11.5 fL Normal 9.5-13.5 [facility] Comment on above: Performed By: #### L IPID, CMP #### [facility] [address] [place] [address] Dr. Prince Olivas PLT 224 103/ul Normal 150-450 [facility] Comment on above: Performed By: #### L IPID, CMP #### [facility] [address] [place] [address] Dr. Prince Olivas RBC 4.46 106/ul Normal 4.20-5.40 [facility] Comment on above: Performed By: #### L IPID, CMP #### [facility] [address] [place] [address] Dr. Prince Olivas WBC 7.9 103/ul Normal 4.0-11.0 [facility] Comment on above: Performed By: #### L IPID, CMP #### [facility] [address] [place] [address] Dr. Prince Olivas CRPon 03-31-2022 CRP [Mass/Vol] mg/L Normal <=1.0 [facility] Comment on above: Performed By: #### C OPPER #### [facility] [address] [place] [address] Dr. Prince Olivas FERRITINon 03-31-2022 Ferritin [Mass/Vol] 99.0 ng/mL Normal 8.0-252.0 [facility] Comment on above: Performed By: #### F ERR, VITB12, VITAD, FETIBC #### [facility] [address] [place] [address] Dr. Prince Olivas IRON AND TIBCon 03-31-2022 % SATURATION 29.3 % Normal [facility] Comment on above: Performed By: #### F ERR, VITB12, VITAD, FETIBC #### [facility] [address] [place] [address] Dr. Prince Olivas Iron [Mass/Vol] 90.0 ug/dL Normal 50.0-170.0 [facility] Comment on above: Performed By: #### F ERR, VITB12, VITAD, FETIBC #### [facility] [address] [place] [address] Dr. Prince Olivas TIBC DIRECT 307.0 ug/dL Normal 250.0-450.0 [facility] Comment on above: Performed By: #### F ERR, VITB12, VITAD, FETIBC #### [facility] [address] [place] [address] Dr. Prince Olivas MAGNESIUMon 03-31-2022 Magnesium [Mass/Vol] 2.0 mg/dL Normal 1.8-2.4 [facility] Comment on above: Performed By: #### C OPPER #### [facility] [address] [place] [address] Dr. Prince Olivas PHOSPHORUSon 03-31-2022 Phosphate [Mass/Vol] 3.6 mg/dL Normal 2.6-4.7 [facility] Comment on above: Performed By: #### C OPPER #### [facility] [address] [place] [address] Dr. Prince Olivas PROF 14(COMP METB)on 023 Albumin [Mass/Vol] 3.9 g/dL Normal 3.4-5.0 [facility] Comment on above: Performed By: #### C OPPER #### [facility] [address] [place] [address] Dr. Prince Olivas Albumin/Globulin [Mass ratio] 1.3 {ratio} Normal [facility] Comment on above: Performed By: #### C OPPER #### [facility] [address] [place] [address] Dr. Prince Olivas ALP [Catalytic activity/Vol] 75 U/L Normal 46-116 [facility] Comment on above: Performed By: #### C OPPER #### [facility] [address] [place] [address] Dr. Prince Olivas ALT [Catalytic activity/Vol] 19 U/L Normal 14-59 [facility] Comment on above: Performed By: #### C OPPER #### [facility] [address] [place] [address] Dr. Prince Olivas Anion gap [Moles/Vol] 11.3 mmol/L Normal [facility] Comment on above: Performed By: #### C OPPER #### [facility] [address] [place] [address] Dr. Prince Olivas AST [Catalytic activity/Vol] 19 U/L Normal 15-37 [facility] Comment on above: Performed By: #### C OPPER #### [facility] [address] [address] [address] Prince Olivas Bilirubin [Mass/Vol] 0.3 mg/dL Normal 0.2-1.0 [facility] Comment on above: Performed By: #### C OPPER #### [facility] [address] [place] [address] Dr. Prince Olivas Calcium [Mass/Vol] 9.0 mg/dL Normal 8.5-10.1 [facility] Comment on above: Performed By: #### C OPPER #### [facility] [address] [place] [address] Dr. Prince Olivas Chloride [Moles/Vol] 105 mmol/L Normal 98-107 [facility] Comment on above: Performed By: #### C OPPER #### [facility] [address] [place] [address] Dr. Prince Olivas CO2 [Moles/Vol] 28.9 mmol/L Normal 21.0-32.0 [facility] Comment on above: Performed By: #### C OPPER #### [facility] [address] [place] [address] Dr. Prince Olivas Creatinine [Mass/Vol] 0.79 mg/dL Normal 0.55-1.02 [facility] Comment on above: Performed By: #### C OPPER #### [facility] [address] [place] [address] Dr. Prince Olivas EGFR-AF ROMANIAN >60 Normal >=60 [facility] Comment on above: Performed By: #### C OPPER #### [facility] [address] [place] [address] Dr. Prince Olivas EGFR-NON AF ROMANIAN >60 Normal >=60 [facility] Comment on above: Performed By: #### C OPPER #### [facility] [address] [place] [address] Dr. Prince Olivas Globulin (S) [Mass/Vol] 3.0 g/dL Normal [facility] Comment on above: Performed By: #### C OPPER #### [facility] [address] [place] [address] Dr. Prince Olivas Glucose [Mass/Vol] 91 mg/dL Normal 74-106 [facility] Comment on above: Performed By: #### C OPPER #### [facility] [address] [address] [address] Prince Olivas Potassium [Moles/Vol] 4.2 mmol/L Normal 3.5-5.1 [facility] Comment on above: Performed By: #### C OPPER #### [facility] [address] [address] [address] Prince Olivas Protein [Mass/Vol] 6.9 g/dL Normal 6.4-8.2 [facility] Comment on above: Performed By: #### C OPPER #### [facility] [address] [place] [address] Dr. Prince Olivas Sodium [Moles/Vol] 141 mmol/L Normal 136-145 [facility] Comment on above: Performed By: #### C OPPER #### [facility] [address] [place] [address] Dr. Prince Olivas Urea nitrogen [Mass/Vol] 10.0 mg/dL Normal 7.0-18.0 [facility] Comment on above: Performed By: #### C OPPER #### [facility] [address] [place] [address] Dr. Prince Olivas Urea nitrogen/Creatinine [Mass ratio] 12.7 mg/mg Normal [facility] Comment on above: Performed By: #### C OPPER #### [facility] [address] [place] [address] Dr. Prince Olivas PROTIMEon 03-31-2022 INR Coag (PPP) [Relative time] 0.94 {INR} Normal [facility] Comment on above: Performed By: #### M MA2 #### [facility] [address] [place] [address] Dr. Prince Olivas INR GUIDELINES SEE BELOW Normal [facility] Comment on above: Result Comment: BRIANNA RED INR: 2.0 - 3.0 CONDITIONS NOT LISTED BELOW 2.5 - 3.5 FOR PROSTHETIC HEART VALVE REPLACEMENT 2.5 - 3.5 RECURRENT THROMBOSIS Performed By: #### M MA2 #### [facility] [address] [place] [address] Dr. Prince Olivas PT Coag (PPP) [Time] 10.0 s Normal 9.0-11.6 [facility] Comment on above: Performed By: #### M MA2 #### [facility] [address] [place] [address] Dr. Prince Olivas TRIGLYCERIDEon 03-31-2022 Triglyceride [Mass/Vol] 103 mg/dL Normal <=150 [facility] Comment on above: Performed By: #### C OPPER #### [facility] [address] [place] [address] Dr. Prince Olivas VITAMIN B12on 03-31-2022 Cobalamin (Vitamin B12) [Mass/Vol] 259.0 pg/mL Normal 193.0-986.0 [facility] Comment on above: Performed By: #### F ERR, VITB12, VITAD, FETIBC #### [facility] [address] [place] [address] Dr. Prince Olivas VITAMIN D 25 OHon 03-31-2022 VIT D 25-OH 49.0 ng/mL Normal [facility] Comment on above: Performed By: #### F ERR, VITB12, VITAD, FETIBC #### [facility] [address] [place] [address] Dr. Prince Olivas VIT D RANGES SEE BELOW Normal [facility] Comment on above: Result Comment: <20 ng/mL Vit D deficient 20 - <30 ng/mL Vit D insufficient 30 - 100 ng/mL Vit D sufficient >100 ng/mL Potential Toxicity Performed By: #### F ERR, VITB12, VITAD, FETIBC #### [facility] [address] [place] [address] Dr. Prince Olivas CBC AUTO DIFFon 03-28-2022 BASO # 0.1 103/ul Normal 0.0-0.1 [facility] Comment on above: Performed By: #### S ELNIUM #### [facility] [address] [place] [address] Dr. Prince Olivas Basophils/100 WBC (Bld) 0.6 % Normal 0.2-2.0 [facility] Comment on above: Performed By: #### S ELNIUM #### [facility] [address] [place] [address] Dr. Prince Olivas EO # 0.2 103/ul Normal 0.0-0.7 [facility] Comment on above: Performed By: #### S ELNIUM #### [facility] [address] [place] [address] Dr. Prince Olivas Eosinophils/100 WBC (Bld) 2.4 % Normal 0.9-7.0 [facility] Comment on above: Performed By: #### S ELNIUM #### [facility] [address] [place] [address] Dr. Prince Olivas Erythrocyte distribution width (RBC) [Ratio] 13.2 % Normal 11.0-15.0 [facility] Comment on above: Performed By: #### S ELNIUM #### [facility] [address] [place] [address] Dr. Prince Olivas Hematocrit (Bld) [Volume fraction] 44.3 % Normal 36.0-48.0 [facility] Comment on above: Performed By: #### S ELNIUM #### [facility] [address] [place] [address] Dr. Prince Olivas Hemoglobin (Bld) [Mass/Vol] 13.8 g/dL Normal 12.0-16.0 [facility] Comment on above: Performed By: #### S ELNIUM #### [facility] [address] [place] [address] Dr. Prince Olivas IG # 0.02 10e3/ul Normal 0.00-0.03 [facility] Comment on above: Performed By: #### S ELNIUM #### [facility] [address] [place] [address] Dr. Prince Olivas IG % 0.2 % Normal 0.0-0.5 [facility] Comment on above: Performed By: #### S ELNIUM #### [facility] [address] [place] [address] Dr. Prince Olivas LYMPH # 3.1 103/ul Normal 1.2-3.8 [facility] Comment on above: Performed By: #### S ELNIUM #### [facility] [address] [place] [address] Dr. Prince Olivas Lymphocytes/100 WBC (Bld) 34.8 % Normal 20.5-60.0 [facility] Comment on above: Performed By: #### S ELNIUM #### [facility] [address] [place] [address] Dr. Prince Olivas MANUAL DIFF REQ NO Normal [facility] Comment on above: Performed By: #### S ELNIUM #### [facility] [address] [place] [address] Dr. Prince Olivas MCH (RBC) [Entitic mass] 30.5 pg Normal 26.7-34.0 [facility] Comment on above: Performed By: #### S ELNIUM #### [facility] [address] [place] [address] Dr. Prince Olivas MCHC (RBC) [Mass/Vol] 31.2 g/dL Normal 29.9-35.2 [facility] Comment on above: Performed By: #### S ELNIUM #### [facility] [address] [place] [address] Dr. Prince Olivas MCV (RBC) [Entitic vol] 98.0 fL Normal 81.0-99.0 [facility] Comment on above: Performed By: #### S ELNIUM #### [facility] [address] [place] [address] Dr. Prince Olivas MONO # 0.5 103/ul Normal 0.3-0.8 [facility] Comment on above: Performed By: #### S ELNIUM #### [facility] [address] [place] [address] Dr. Prince Olivas Monocytes/100 WBC (Bld) 6.0 % Normal 1.7-12.0 [facility] Comment on above: Performed By: #### S ELNIUM #### [facility] [address] [place] [address] Dr. Prince Olivas NEUT # 5.0 103/ul Normal 1.4-6.5 [facility] Comment on above: Performed By: #### S ELNIUM #### [facility] [address] [address] [address] Prince Olivas Neutrophils/100 WBC (Bld) 56.0 % Normal 43.0-75.0 [facility] Comment on above: Performed By: #### S ELNIUM #### [facility] [address] [address] [address] Prince Olivas Platelet mean volume (Bld) [Entitic vol] 11.5 fL Normal 9.5-13.5 [facility] Comment on above: Performed By: #### S ELVETOUM #### [facility] [address] [place] [address] Dr. Prince Olivas PLT 221 103/ul Normal 150-450 [facility] Comment on above: Performed By: #### S ELNIUM #### [facility] [address] [place] [address] Dr. Prince Olivas RBC 4.52 106/ul Normal 4.20-5.40 [facility] Comment on above: Performed By: #### S ELNIUM #### [facility] [address] [place] [address] Dr. Prince Olivas WBC 8.9 103/ul Normal 4.0-11.0 [facility] Comment on above: Performed By: #### S ELNIUM #### [facility] [address] [address] [address] Prince Pinon 03-28-2022 KISHANN Telephone (JAMIE) SAI PINEDA ([id number]) 1970 F Date Time Provider Department 03/28/22 EDUARDO HARRINGTON GASTRIC During your visit today, we recorded the following information about you: Eduardo Harrington RN 03/28/2022 3:52 PM Signed Attempted to reach the patient at the contact number that they provided [phone] (home) . Unable to speak with patient so without identifying the patient the following information was left on their voice mail: Date of procedure, location and report time A message was left informing the patient/patient compliance representative they must have a responsible adult [...] Number to call with questions or concerns [phone] Number to call to cancel their procedure [phone] Eduardo Harrington RN Allergies As of Date: 03/28/2022 (No Known Allergies) Date Reviewed: 01/01/2022 Reviewed by: Juan Carlos Saucedo LPN - Fully Assessed Reason for Visit: Appointment Confirmation [[id number]] Prescriptions as of 03/28/2022 - prochlorperazine (COMPAZINE) [...] Status:Closed by EDUARDO HARRINGTON on 03/28/22 Normal [facility] PROF 14(COMP METB)on 023 Albumin [Mass/Vol] 4.2 g/dL Normal 3.4-5.0 [facility] Comment on above: Performed By: #### L IPID, CMP #### [facility] [address] [place] [address] Dr. Prince Olivas Albumin/Globulin [Mass ratio] 1.4 {ratio} Normal [facility] Comment on above: Performed By: #### L IPID, CMP #### [facility] [address] [place] [address] Dr. Prince Olivas ALP [Catalytic activity/Vol] 86 U/L Normal 46-116 [facility] Comment on above: Performed By: #### L IPID, CMP #### [facility] [address] [place] [address] Dr. Prince Olivas ALT [Catalytic activity/Vol] 13 U/L Critically low 14-59 [facility] Comment on above: Performed By: #### L IPID, CMP #### [facility] [address] [place] [address] Dr. Prince Olivas Anion gap [Moles/Vol] 9.7 mmol/L Normal [facility] Comment on above: Performed By: #### L IPID, CMP #### [facility] [address] [place] [address] Dr. Prince Olivas AST [Catalytic activity/Vol] 15 U/L Normal 15-37 [facility] Comment on above: Performed By: #### L IPID, CMP #### [facility] [address] [place] [address] Dr. Prince Olivas Bilirubin [Mass/Vol] 0.2 mg/dL Normal 0.2-1.0 [facility] Comment on above: Performed By: #### L IPID, CMP #### [facility] [address] [place] [address] Dr. Prince Olivas Calcium [Mass/Vol] 9.2 mg/dL Normal 8.5-10.1 [facility] Comment on above: Performed By: #### L IPID, CMP #### [facility] [address] [place] [address] Dr. Prince Olivas Chloride [Moles/Vol] 102 mmol/L Normal 98-107 [facility] Comment on above: Performed By: #### L IPID, CMP #### [facility] [address] [place] [address] Dr. Prince Olivas CO2 [Moles/Vol] 28.9 mmol/L Normal 21.0-32.0 [facility] Comment on above: Performed By: #### L IPID, CMP #### [facility] [address] [place] [address] Dr. Prince Olivas Creatinine [Mass/Vol] 0.81 mg/dL Normal 0.55-1.02 [facility] Comment on above: Performed By: #### L IPID, CMP #### [facility] [address] [place] [address] Dr. Prince Olivas EGFR-AF ROMANIAN >60 Normal >=60 [facility] Comment on above: Performed By: #### L IPID, CMP #### [facility] [address] [place] [address] Dr. Prince Olivas EGFR-NON AF ROMANIAN >60 Normal >=60 [facility] Comment on above: Performed By: #### L IPID, CMP #### [facility] [address] [place] [address] Dr. Prince Olivas Globulin (S) [Mass/Vol] 3.1 g/dL Normal [facility] Comment on above: Performed By: #### L IPID, CMP #### [facility] [address] [place] [address] Dr. Prince Olivas Glucose [Mass/Vol] 74 mg/dL Normal 74-106 [facility] Comment on above: Performed By: #### L IPID, CMP #### [facility] [address] [place] [address] Dr. Prince Olivas Potassium [Moles/Vol] 4.1 mmol/L Normal 3.5-5.1 [facility] Comment on above: Performed By: #### L IPID, CMP #### [facility] [address] [place] [address] Dr. Prince Olivas Protein [Mass/Vol] 7.3 g/dL Normal 6.4-8.2 [facility] Comment on above: Performed By: #### L IPID, CMP #### [facility] [address] [place] [address] Dr. Prince Olivas Sodium [Moles/Vol] 138 mmol/L Normal 136-145 [facility] Comment on above: Performed By: #### L IPID, CMP #### [facility] [address] [place] [address] Dr. Prince Olivas Urea nitrogen [Mass/Vol] 11.0 mg/dL Normal 7.0-18.0 [facility] Comment on above: Performed By: #### L IPID, CMP #### [facility] [address] [place] [address] Dr. Prince Olivas Urea nitrogen/Creatinine [Mass ratio] 13.6 mg/mg Normal [facility] Comment on above: Performed By: #### L IPID, CMP #### [facility] [address] [place] [address] Dr. Prince Olivas TSHon 03-28-2022 TSH 0.948 uIU/mL Normal 0.358-3.740 [facility] Comment on above: Performed By: #### L IPID, CMP #### [facility] [address] [place] [address] Dr. Prince Olivas VIT B12 AND FOLATEon 023 Cobalamin (Vitamin B12) [Mass/Vol] 260.0 pg/mL Normal 193.0-986.0 [facility] Comment on above: Performed By: #### C OPPER #### [facility] [address] [place] [address] Dr. Prince Olivas FOLATE 7.90 ng/mL Critically low 8.60-58.90 [facility] Comment on above: Performed By: #### C OPPER #### [facility] [id number] Prince Olivas NM GASTRIC EMPTYING SOLIDon 02-05-2022 NM GASTRIC EMPTYING SOLID * * *Final Report* * * DATE OF EXAM: Feb 05 2022 12:26PM [facility] 0017 - NM GASTRIC EMPTYING SOLID / [...] rate of gastric emptying of solid meal. Funeral Pre Arrangement Counselor: PSCB Transcribe Date/Time: Feb 05 2022 1:36P Dictated by : SHER RODRIGUEZ MD This examination was interpreted and the report reviewed and electronically signed by: RENATO PATEL MD on Feb 05 2022 2:03PM EST [id number] Normal [facility] 01-05-2022 [facility] Telephone (GAPRA3) SAI PINEDA ([id number]) 1970 F Date Time Provider Department 01/05/22 [...] Encounter Status:Closed by TIFFANI MORALES on 01/05/22 [facility] 01-03-2022 CNPN Telephone (GASTMN) SAI PINEDA ([id number]) 1970 F Date Time Provider Department 01/03/22 ANASTASIYA MOSQUEDA GASTDC During your visit today, we recorded the following information about you: Anastasiya Mosqueda PA-C 01/03/2022 10:19 AM Signed EGD results discussed with patient as requested, pathology still pending. Will reach out to patient once resulted. Red flags for in person care discussed. GRECIA Castorena [facility] 01/05/2022 10:02 AM Signed Patient requests return call [phone] Elizabeth Jimenez [facility] Allergies As of Date: 01/03/2022 (No Known [...] Encounter Status:Closed by ANASTASIYA [facility]EDA on [facility]03/22 [facility] Telephone (DDQ) SAI PINEDA ([id number]) 1970 F Date Time Provider Department 01/02/22 [...] Encounter Status:Closed by LEYDI HUIZAR on 01/02/22 [facility] ANES POSTPROC EVALon 022 ANES POSTPROC EVAL HNO ID: [id number] Author: Sher Hudson MD Service: ? Author [...] January 01, 2022 TIME: 5:13 PM CSN: [id number] Normal [facility] ANES PRE-OPon 01-01-2022 ANES PRE-OP HNO ID: [id number] Author: Sher Hudson MD Service: ? 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 [...] Signed By: Juan Carlos Saucedo LPN Normal [facility] NURSING PROG HNO ID: [id number] Author: Rima Coleman RN Service: ? Author [...] Rima Coleman RN In Department: GASTROENTEROLOGY Normal [facility] SURGICAL PATHOLOGYon CASE REPORT [facility] Comment on above: Order Comment: Speci men Type: TISSUE SPECIMENOrdering Facility: [facility] Address: [address] [place] [address] Result Comment: Surg [facility] Pathology Report Case: [id number] Authorizing Provider: Tiffani Morales MD Collected: 01/01/2022 04:13 PM Ordering Location: Gastroenterology Received: 01/01/2022 08:38 PM Pathologist: Jyotsna Cartwright MD Specimens: A) - DUODENUM BIOPSY, r/o celiac B) - STOMACH BIOPSY, r/o h. pylori C) - STOMACH (GASTRIC) POLYP BIOPSY, r/o adenoma Performed By: #### S ####[facility] LABIA [id number] [address] DIAGNOSIS COMMENT Normal [facility] Comment on above: Order Comment: Matai urbano Type: TISSUE SPECIMENOrdering Facility: [facility] Address: [address] [place] [address] Result Comment: A. A denovirus stain is negative for viral inclusions. Dr Valorie Jaimes has reviewed this part of the case and concurs. Laboratory Developed Test (LDT) Disclaimer: Performance characteristics of immunohistochemical, immunofluorescent and chromogenic in-situ hybridization tests have been determined by the performing laboratory within [facility]???s Lul Gandhi [facility] Pathology and Laboratory Medicine [place] ([facility], [facility], [facility] or [facility]) in a manner consistent with CLIA requirements. One or more of these tests have not been cleared or approved by the FDA. [facility] is regulated under CLIA as qualified to perform high-complexity testing. These tests are used for clinical purposes. They should not be regarded as investigational or for research. Positive and negative controls stain appropriately. Performed By: #### S ####[facility] [id number] [address] FINAL DIAGNOSIS Normal [facility] Comment on above: Order Comment: Matai urbano Type: TISSUE SPECIMENOrdering Facility: [facility] Address: [address] [place] [address] Result Comment: A. D uodenum, biopsy: - Incidental and minute tubular adenoma, negative for high grade dysplasia. See comment. - Duodenal mucosa with no diagnostic alterations. B. Stomach, biopsy: - Oxyntic and antral mucosa with no diagnostic alteration. - No morphologic evidence of H. Pylori microorganisms. C. Stomach, polypectomy: - Hyperplastic polyp. Performed By: #### S ####[facility] LABCLIA [id number] [address] OF [facility] FINAL PERFORMING LAB Normal [facility] Comment on above: Order Comment: Speci men Type: TISSUE SPECIMENOrdering Facility: [facility] Address: [address] [place] [address] Result Comment: Diag nostic interpretation performed at [facility], [address] [place] [address] CLIA# [id number] Swine [employer] Field Specialist: Constantin Quevedo M.D. Performed By: #### S ####[facility] LABCL[facility] [id number] [address] GROSS DESCRIPTION Normal [facility] Comment on above: Order Comment: Speci men Type: TISSUE SPECIMENOrdering Facility: [facility] Address: [address] [place] [address] Result Comment: A. D UODENUM BIOPSY Received [...] in one cassette. Gross examination performed at [facility], [address] [place] [address] TTN 01/02/2022 12:06 AM Performed By: #### S ####[facility] LABCLIA [id number] [address] [place] Upper GI endoscopyon 10-17-2 022 Upper GI endoscopy A31 Gastrointestinal Endoscopy Patient Name: Sai Guerrero Procedure Date: 01/01/2022 3:37 PM Date of : 1970 Admit Type: Outpatient Age: 51 Room: [address] Gender: Female Note Status: Finalized [...] the patient. 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 All rights reserved. The codes documented in this report are preliminary and upon shine worker review may be revised to meet current compliance requirements. Attending Participation: I personally performed the entire procedure. Scope In: 4:09:57 PM Scope Out: 4:21:34 PM MD Tiffani Camargo MD 01/01/2022 4:34:18 PM This report has been signed electronically by Tiffani Morales MD Number of Addenda: 0 Note Initiated On: 01/01/2022 3:37 PM Normal [facility] 12-28-2021 [facility] Telephone (GAPRA3) SAI WELLS ([id number]) 1970 F Date Time Provider Department 12/28/21 [...] have family/friend present for procedure transport home:Patient/patient compliance representative was told that if they do [...] area. 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 Type of instruction [...] Status:Closed by JOSE ROBERTO VYAS on 12/28/21 [facility] SAI WELLS ([id number]) 1970 F Date Time Provider Department 12/25/21 [...] Encounter Status:Closed by RIMA GERARD on 12/25/21 [facility] CNPNon 12-18-2021 CNPN Telephone (GAPRA3) SAI WELLS ([id number]) 1970 F Date Time Provider Department 12/18/21 BHUPINDER CARREON GAPRA3 During your visit today, we recorded the following information about you: Bhupinder Carreon MA 12/18/2021 10:51 AM Signed Attempted to reach the patient at the contact number that they provided [phone] (home) . Unable to speak with patient [...] Encounter Status:Closed by BHUPINDER CARREON on 12/18/21 [facility] 12-13-2021 [facility] Telephone (SHAREEMN) SAI WELLS ([id number]) 1970 F Date Time Provider Department 12/13/21 ANASTASIYA MOSQUEDA [facility] During your visit today, we recorded the following information about you: Elizabeth Jimenez [facility] 12/13/2021 11:20 AM Signed Received a call from patient's health agency concerning virtual visit set up with you today at 11 - Patient has not registered for [employer] (having trouble accessing her email) AND they want to know if you will do a phone visit instead Was told this was an urgent request from the referring doctor's office - the visit was scheduled thru the Referring Physician office There are no records found for this patient AND I attempted to pull records thru Care Everywhere Patient's phone [phone] Elizabeth Jimenez [facility] Elizabeth Jimenez [facility] 12/13/2021 12:33 PM Signed Spoke to patient's daughter - she will contact the [phone] support line to assist with setting up patient's [employer] AND assist with set up for virtual visit tomorrow morning Elizabeth Jimenez [facility] Elizabeth Jimenez [facility] 12/14/2021 12:34 PM Signed Patient phoned again unable to connect with you via [employer] Okay to schedule phone visit tomorrow? [phone] Elizabeth Jimenez [facility] Elizabeth Jimenez [facility] 12/14/2021 1:32 PM Signed Patient scheduled for phone visit Dec 15 at 11 am - patient instructed not to screen her calls at the time of the visit AND to answer her phone Elizabeth Jimenez [facility] Elizabeth Jimenez [facility] 12/15/2021 11:46 AM Addendum Patient called the office stating you did not phone her for her 11 am appt today- she confirmed the phone number on file service desk analyst checked the patient in as arrived you should be able to call her back without rescheduling the time [phone] Elizabeth Jimenez [facility] Allergies As of Date: 12/13/2021 (No Known [...] Status:Closed by ELIZABETH RODRIGUEZ on 12/13/21 Normal [facility] BNPon 12-11-2021 Natriuretic peptide B (Bld) [Mass/Vol] 134.0 pg/mL Normal <=900.0 [facility] Comment on above: Performed By: #### M MA2 #### [facility] [address] [place] [address] Dr. Prince Olivas CBC AUTO DIFFon 12-11-2021 BASO # 0.0 103/ul Normal 0.0-0.1 [facility] Comment on above: Performed By: #### L IPID, CMP #### [facility] [address] [place] [address] Dr. Prince Olivas Basophils/100 WBC (Bld) 0.4 % Normal 0.2-2.0 [facility] Comment on above: Performed By: #### L IPID, CMP #### [facility] [address] [place] [address] Dr. Prince Olivas EO # 0.0 103/ul Normal 0.0-0.7 [facility] Comment on above: Performed By: #### L IPID, CMP #### [facility] [address] [place] [address] Dr. Prince Olivas Eosinophils/100 WBC (Bld) 0.3 % Critically low 0.9-7.0 [facility] Comment on above: Performed By: #### L IPID, CMP #### [facility] [address] [place] [address] Dr. Prince Olivas Erythrocyte distribution width (RBC) [Ratio] 13.1 % Normal 11.0-15.0 [facility] Comment on above: Performed By: #### L IPID, CMP #### [facility] [address] [place] [address] Dr. Prince Olivas Hematocrit (Bld) [Volume fraction] 45.9 % Normal 36.0-48.0 [facility] Comment on above: Performed By: #### L IPID, CMP #### [facility] [address] [place] [address] Dr. Prince Olivas Hemoglobin (Bld) [Mass/Vol] 15.3 g/dL Normal 12.0-16.0 [facility] Comment on above: Performed By: #### L IPID, CMP #### [facility] [address] [place] [address] Dr. Prince Olivas IG # 0.04 10e3/ul Critically high 0.00-0.03 [facility] Comment on above: Performed By: #### L IPID, CMP #### [facility] [address] [place] [address] Dr. Prince Olivas IG % 0.4 % Normal 0.0-0.5 [facility] Comment on above: Performed By: #### L IPID, CMP #### [facility] [address] [address] [address] Prince Olivas LYMPH # 1.9 103/ul Normal 1.2-3.8 [facility] Comment on above: Performed By: #### L IPID, CMP #### [facility] [address] [address] [address] Prnice Olivas Lymphocytes/100 WBC (Bld) 17.0 % Critically low 20.5-60.0 [facility] Comment on above: Performed By: #### L IPID, CMP #### [facility] [address] [place] [address] Dr. Prince Olivas MANUAL DIFF REQ NO Normal [facility] Comment on above: Performed By: #### L IPID, CMP #### [facility] [address] [place] [address] Dr. Prince Olivas MCH (RBC) [Entitic mass] 31.4 pg Normal 26.7-34.0 [facility] Comment on above: Performed By: #### L IPID, CMP #### [facility] [address] [place] [address] Dr. Prince Olivas MCHC (RBC) [Mass/Vol] 33.3 g/dL Normal 29.9-35.2 [facility] Comment on above: Performed By: #### L IPID, CMP #### [facility] [address] [place] [address] Dr. Prince Olivas MCV (RBC) [Entitic vol] 94.3 fL Normal 81.0-99.0 [facility] Comment on above: Performed By: #### L IPID, CMP #### [facility] [address] [place] [address] Dr. Prince Olivas MONO # 0.6 103/ul Normal 0.3-0.8 [facility] Comment on above: Performed By: #### L IPID, CMP #### [facility] [address] [place] [address] Dr. Prince Olivas Monocytes/100 WBC (Bld) 5.6 % Normal 1.7-12.0 [facility] Comment on above: Performed By: #### L IPID, CMP #### [facility] [address] [place] [address] Dr. Prince Olivas NEUT # 8.3 103/ul Critically high 1.4-6.5 [facility] Comment on above: Performed By: #### L IPID, CMP #### [facility] [address] [place] [address] Dr. Prince Olivsa Neutrophils/100 WBC (Bld) 76.3 % Critically high 43.0-75.0 [facility] Comment on above: Performed By: #### L IPID, CMP #### [facility] [address] [place] [address] Dr. Prince Olivas Platelet mean volume (Bld) [Entitic vol] 12.1 fL Normal 9.5-13.5 [facility] Comment on above: Performed By: #### L IPID, CMP #### [facility] [address] [place] [address] Dr. Prince Olivas PLT 204 103/ul Normal 150-450 [facility] Comment on above: Performed By: #### L IPID, CMP #### [facility] [address] [place] [address] Dr. Prince Olivas RBC 4.87 106/ul Normal 4.20-5.40 [facility] Comment on above: Performed By: #### L IPID, CMP #### [facility] [address] [place] [address] Dr. Prince Olivas WBC 10.9 103/ul Normal 4.0-11.0 [facility] Comment on above: Performed By: #### L IPID, CMP #### [facility] [address] [place] [address] Dr. Prince Olivas LACTATE/LACTIC ACIDon 2021 Lactate [Moles/Vol] 1.9 mmol/L Normal 0.4-1.9 [facility] Comment on above: Performed By: #### S ELNIUM #### [facility] [address] [place] [address] Dr. Prince Olivas LIPASEon 12-11-2021 Lipase [Catalytic activity/Vol] 49.0 U/L Critically low 73.0-393.0 [facility] Comment on above: Performed By: #### M MA2 #### [facility] [address] [address] [address] Prince Olivas PROF 14(COMP METB)on 022 Albumin [Mass/Vol] 4.5 g/dL Normal 3.4-5.0 [facility] Comment on above: Performed By: #### M MA2 #### [facility] [address] [address] [address] Prince Olivas Albumin/Globulin [Mass ratio] 1.7 {ratio} Normal [facility] Comment on above: Performed By: #### Marine MA2 #### [facility] [address] [place] [address] Dr. Prince Olivas ALP [Catalytic activity/Vol] 83 U/L Normal 46-116 [facility] Comment on above: Performed By: #### Marine MA2 #### [facility] [address] [address] [address] Prince Olivas ALT [Catalytic activity/Vol] 19 U/L Normal 14-59 [facility] Comment on above: Performed By: #### Marine MA2 #### [facility] [address] [place] [address] Dr. Prince Olivas Anion gap [Moles/Vol] 15.8 mmol/L Normal [facility] Comment on above: Performed By: #### Marine MA2 #### [facility] [address] [address] [address] Prince Olivas AST [Catalytic activity/Vol] 15 U/L Normal 15-37 [facility] Comment on above: Performed By: #### M MA2 #### [facility] [address] [place] [address] Dr. Prince Olivas Bilirubin [Mass/Vol] 0.6 mg/dL Normal 0.2-1.0 [facility] Comment on above: Performed By: #### Marine MA2 #### [facility] [address] [address] [address] Prince Olivas Calcium [Mass/Vol] 9.3 mg/dL Normal 8.5-10.1 [facility] Comment on above: Performed By: #### M MA2 #### [facility] [address] [address] [address] Prince Olivas Chloride [Moles/Vol] 103 mmol/L Normal 98-107 [facility] Comment on above: Performed By: #### M MA2 #### [facility] [address] [place] [address] Dr. Prince Olivas CO2 [Moles/Vol] 25.9 mmol/L Normal 21.0-32.0 [facility] Comment on above: Performed By: #### Marine MA2 #### [facility] [address] [place] [address] Dr. Prince Olivas Creatinine [Mass/Vol] 0.97 mg/dL Normal 0.55-1.02 [facility] Comment on above: Performed By: #### Marine MA2 #### [facility] [address] [place] [address] Dr. Prince Olivas EGFR-AF ROMANIAN >60 Normal >=60 [facility] Comment on above: Performed By: #### Marine MA2 #### [facility] [address] [place] [address] Dr. Prince Olivas EGFR-NON AF ROMANIAN >60 Normal >=60 [facility] Comment on above: Performed By: #### Marine MA2 #### [facility] [address] [place] [address] Dr. Prince Olivas Globulin (S) [Mass/Vol] 2.7 g/dL Normal [facility] Comment on above: Performed By: #### M MA2 #### [facility] [address] [place] [address] Dr. Prince Olivas Glucose [Mass/Vol] 107 mg/dL Critically high 74-106 [facility] Comment on above: Performed By: #### M MA2 #### [facility] [address] [place] [address] Dr. Prince Olivas Potassium [Moles/Vol] 3.7 mmol/L Normal 3.5-5.1 [facility] Comment on above: Performed By: #### M MA2 #### [facility] [address] [address] [address] Prince Olivas Protein [Mass/Vol] 7.2 g/dL Normal 6.4-8.2 [facility] Comment on above: Performed By: #### Marine MA2 #### [facility] [address] [address] [address] Prince Olivas Sodium [Moles/Vol] 141 mmol/L Normal 136-145 [facility] Comment on above: Performed By: #### Marine MA2 #### [facility] [address] [address] [address] Prince Olivas Urea nitrogen [Mass/Vol] 11.0 mg/dL Normal 7.0-18.0 [facility] Comment on above: Performed By: #### Marine MA2 #### [facility] [address] [address] [address] Prince Olivas Urea nitrogen/Creatinine [Mass ratio] 11.3 mg/mg Normal [facility] Comment on above: Performed By: #### Marine MA2 #### [facility] [address] [address] [address] Prince Olivas TROPONIN, HIGH SENSITIVITYon 12-11-2021 HSTROP 5.5 pg/mL Normal 4.0-51.3 [facility] Comment on above: Result Comment: CUT- OFF POINTS HAVE BEEN ESTABLISHED BASED ON THE FOURTH UNIVERSAL DEFINITIONS OF MYOCARDIAL INFARCTION. THE UPPER REFERENCE LIMIT (URL) OF TROPONIN, DEFINED THE 99TH PERCENTILE OF cTnI DISTRIBUTION IN A REFERENCE POPULATION, HAS BEEN CONFIRMED THE DECISION THRESHOLD FOR [place] DIAGNOSIS. Performed By: #### Marine MA2 #### [facility] [address] [address] [address] Prince Olivas XR CHEST 1 Von [...] BRITNI HARRISON Date: 2021-12-11 15:20 Normal [facility] Coding Summary.on 12-06-2021 Coding Summary. CD:[id number] Gh0bWw+P GhlYWQ+OU3RWCXiQ88zsPPqjD3JE 5nSTT0KARQMLAZRHK0CPH8bkLT2D LwzG0RulpQy DbgksKHoGJ26IHp3EEM3vYfiDEdj jV6hfCScC9t2AjLqGF73bG68QJsu ZYUpXnA9OjEooprauCWv F0zpUcIbiUJbCjb+PHRhYmxlIHdp TIVkRSaxSCSxDeClrKniMP2tNi3j ZGVyLWNvbGxhcHNlOiBj l9isNSTsDYxgHI5dmBbaJ1SgyRA3 EGQkl2o1Az01hJJ+NNZzNKW4tCnn LPcrk476MsUfj2wsOSY5 cHRwCIxkNLO8Y34au8Y3CWCuOPCc XOD3dIW7rX3nbNynozslN0SunYJc OjS5NXX0xYBysK5lyRij nwaupS9xGbv+R48RFS6FDLSJWB7U Yst1A2TgOqspxMY+SJ52UCUfJT12 lHGtxGPdz0hmpIy8RvSf ICHqMTY9nEsyUBvoj6XhMPKzL98y yLNgo7L8MLCpsUvujXQnKqDojRN9 aO5dNNqrsmdsu5ezeqsw Sssiw9rpfk45xR27V59hBChiNLPr CTE1TVDiTEMxrLdiww7dmM3kFb2+ ETmuj2ais0wfpJb4ZhLf ZZAmwhHufErkVXI6w8PwLb07N7Qm rYhhj7EcPnp9fu71hYMfm1X4oZK9 EOytXBQbzS3vUVxhIyS9 BRLeIqUhsP83wZSaESeuGe1jkOgx tDgeNQ1pLAXfpxmeCBMxgX9cVJHd gALzeJeuKX1cFNSmuvqk h420NgAuZRR8XNOmeMVmH5YshM0u ZiZpYYFyONArO4FjwIMfGNszJ203 ZZaaMkE7FTMmmfPkL8Ug DAWmeNuaNoM2p4N5Nm8Rq6Galgve SKB8QSykECT3HtHiUwQsNoA3I6Hz Ndj7XPXekMwlPE7hJ1Eu LXFjhnyogtgkaVE6MQMmVAYqeL15 dMHwYYkjGt9gk2J0s743CHYrYHRg wU40Rh5rsOnjMQHlqDNF yY9zpfjrt9uphyfdXeBnNFThQWi6 FAq2QZPdfUibYgCxKLL4EtF7ZXI3 nNEbjP1xjBtfdglfjR2k Oyc+T08zdP1bNZQ1CNT2cjmzWOSj vyXtEO02BV03L9EmElfkeHYupYI+ BTOjicAtyFpsOZ1jGlBl p2irm5WyCLzqN4KnZNUsRCcgAwu6 JNClFNH9cOL4aN5zXKJaVOkwc9V7 cPY7B1SwhzAhke0fx5hr NXAkVDfwF41lqJLre5A5VJLcdIY6 XETlrYjgGeFieF90Bfy+PGNvbGdy l9OfEhnfx3xwu7rvkGr6 KuBoHMKhgeRkpPisFOI2c8NkPe53 U35gDQofYGPyOGLwPRCuIJGamUoa qz1ijO4tRt2+PGNvbCB3 rQL7rY7dLILvBiC6UUdwS691MhEh yKGkCfbna7kvf5zbnPc6NqQhKWYb bfXcxTqzRST5g7KqBk28 O75pLUzcEDToLTBzJWErIMOklDbt nd9tvN2fTu2+WN2yj0dgab53oM76 dHI+TJJoKRL8gHroOBtl YDRhbI8lHNheWsL8PMHkEtVluV89 fBWuRTmmCr3xjFaepTlkZW6lBGNt yloqd592KbVva4uzRFCc gMXwSAarJCO7Z29gt4O6JDCrFIEi KUG0sVJ7dC2epKpyvokbuFJnhLfc wlOltIyjTSzcVEsqD746 IHRvcDsnPlBhdGllbnQgTmFtZTo8 R4PpOfh1VWYcoJjmXV1dxUXcILpt Tc2bnPnbrXjsMS7xQOQc jfvyg079WmBfw5fjHEYaqNYtXGij OOC9O85lp7Y9XLUzDLQbEOM1iSP1 iB4ewAgddsiwjBSzuOvp euCuyViaQOcbBTekC351ITRztDxm UiUghzTgQHTmkNA5IH29MT49sNWd a3E0bEI8T6ErTCUfpnvs frxngZP5VRYkLLLboJ91Lj6tiEbz Yk7sWEKqTPM4QWKysYEjQ8IdbX6e CmXgUQQkMWKrR6IjbZBe KYunD207JIyzOkX4UBRfzaIcQ3Gc OYPjsZpfEkW9a7H3St1ZO0E6MC85 GJ42uVFyi9V3uCU6Y8Cp BDIwyolafuwqzUV3HZFoRAMeuN43 Dm2itXsjNr3pIMCrAWW0TLMwjHCy D5GehO3qGcYjNLHeDTKz G6PykEQcWFeiN077LGelJiG4VQJf bjOeZ7EkAJJkaYujOeF4r2G3Bh3H XZj3QY02WI71dOFgt1Z5 wDI0F1OoJVPwyiowduhkkRA5RXRp MVIgqD79Pk1npPesTy0aUXPkMID0 HXZnuTGnY8SadV6bQtWj BUAoRSPpR7BywEAsTBxeY332OJmd YeF1FKKwtjUeW9BxGZJogWjtXiV9 d1P6Hy1KRIFhUH95FHD7 xMU2JQ06RJ53U1PpPdpsrYHelCN+ PHRhYmxlIHdpZHRoPScxMDAlJyBz ePnfCT1zAb0qKRQsIPPb yErbvXDdNfZvc7irNIPmXKxjBR8o wTxqW6DtpJM9XFFqu6q4Gl03L82g L1EnoFH+QTXcoGD5pPK2 cZ5wQpErLwJ3TKfoR219FqEyeTDs Ktttq2ayj6rqpTx9DfV8MOFuygAr lDebDYF2v8ZpLr99Y57y NGouFVUoNAZvICIbCSOltHfmes8q zM1dLj2+CQRvfJL7hRL9hC8sQjXo EkL9ELvkN948VnStfCXp Bsbtx8fgj5pagHn9ArDsZDDmqlXz dNjvZKR6b2EvUe40F1TalAlcg7Ra Njd2al72uCEzt9Q1cUY2 H2LxFSWbgoisnAQjyFfyIJ3cLHHi otiuUASawK0fHSXhC5k3VpVsZdB9 GZisD9AtteB4EMZyyIZx WXvkFJU1C62qr2B8JNBrZTStAZD9 uPL2rX0dxRdemapmxAMkjYooncOu fDspQTlrVSlpY120IRVw bOznEIXuqR2kRJNerZCkvSytYY1r NTBpbjsnPldFQVZFUiwgUkhPTkRB DTG4J8ZvCun4XXKcxKqj MY2oxXEfIWlgQh6riCdblKwuMX7b OOFbepbbPCXfkZ1vEXLycTOrlIgj UC7pFMXslnsdc068IjSt PJW2WGDvlGHyO6NsjT0jFuRzFONr QJPyT7AvyDKpYSbvS367YUhtUfD6 HGXfgzJrP2PlLTOngMma XlL0y1Y4Ci6zGe9gFz5eUYdfOX23 JU50lABpf9H7yQE6Q0GwZVPksxem iqykcOH3RVSwKYPxnH36 oEJjQSujVv9ql3O9n606XPKzCTRn hR04Bj5dyZttLXTkgJJCsP3bwhgg d7nywxuzAmJdUGAiHRu9 XRt3RAKzvAwtMnJkVDX6WgG4TTH1 lVKvoW9epHwzzjvpnJ4mAgl+NTEg PHVctnC3M3QsMys4BIGg oRdpNY1uwWKcKNdcTv6krMaooEhf AF0jDFJuljmxKQJcuQ4fCSNuvUGa kRnsTW2rWMYqkccan780 KvNxWZE7XATdcVAkL0WurA2mKmDz EBViPIDuU1TejLQjEYmhH574DCow JsW0UYBvufQeE4JaPZBs pVhuMmV4c8K6Ol1WDX4zeRH5F4Uu Mox2ERLziWymFR6zeFGeILkcBy4r tEfajFxtIP1rVNHmqfvg QLKokE3fPGCujERqzWwiTG3zUXJx dyylm819WcXyMSH9EXAkhTIoY5Zm uD6yAtYeGAIfOXRcO1Cj ePJcZPzsX691SLgrOwM2IPWttaWn B3FzLKLojNelCvL0f6B1Iz3JgCSx Q1EyA2r2J7OcDqcepIT+ ZZ21CXOnSZ86fOEyjUBcz4eleWk2 ZiBmAIMjXBZ7eNdvBUkfj1OhYPMt X11dhWHwi2O3JMRatZhr lMYlOvMpqNB8kL1hEPircanbf9zo fbmjZqshb2ludi76iL39A71uDCsk ZHRoPSIzMCUiIHZhbGln mi2paP4vMw4+DCExsOZ1aIA8hZ0l ZcSeSiB5KJzpD434KyIaaHUqBune c3hnt9nclRm8ItDgNLGc bpZziSwzFBO9a6KhIw83Q77rFXgd ZCUtQXBqRTPxJWFsuBufic4kkF1s Ii8+OY6me0lwdm80aW78 dHI+TKCaNMK2gChuOTzoGUYnlA4j WLrpGfX1IOVtMnCrxO82xEDoILza Xx8rmNvuzUexEM6kHSBl fychu659MnBoy5imUJLedCPjZTdr YKE8E27zw8E1EJJlJBIvESJ0aOE3 dX5aoAiybegqbDLytWzh mfFaaYvpXOfsTDbdJ778WJYuwZws YfKflTVlV1rlijAXSO1mLrvosBE+ RTJhVWH5gMqxKTsoMFIs lS2sDPKvQ2a7UgUuJuN6OZziX3Tz zfH6AOCpoFUsZFKqrGFZeE9wdsxk l5neroduQcSvXUElZHt2 BGo5GOCwbMbuUrYrZKF0DdP6VGD9 jIYyaE5ykNpilqkwkT3gHmq+RklO OjwvdGQ+FIFmEDB8rLcp IOcsNDBigK4zMHVbW4y7LaKbHuG3 ZNaoO3CbrwA9JOJnhGUpASMeuDDY wN4ajlsmk4xdvmjtNjAv NLQeCIt1JFw4MARicYmdHtGrQSL3 BpG2GDP2jCMiaR3ehAiybckpzL1l Oyc+TVJOOjwvdGQ+PHRk NOV1xBwcTKglZGWkaR8tHLJyG4z5 CxGoHqJ1ZQwmZ8ZzfyC3NQFdlPTh DDXxeZNXtU6aegyoz2dm grvnSxYoIWXsHLl2WWw1CJIwfCxx QbJcSIL3EpD2ZBG9dKNmcY1itPnn fwylvC4eRis+HZJ9QUA3 VG13TX07K7YuPrekqCZjsUA+PHRh YmxlIHdpZHRoPScxMDAlJyBzdHls IY5jNq8qVSBpZXPsgTcs cHNl (more content not included)... Normal [facility] Amylaseon 12-03-2021 Amylase [Catalytic activity/Vol] 32 U/L Normal 25-157 [facility] Comment on above: Performed By: #### 1 [id number], 3637419, 9515078, 6277476, 3260297, 2974270, 5356365 #### [facility] [address] [place] [address] Auto Diffon 12-03-2021 Basophils/100 WBC (Bld) 0.6 % Normal 0.0-2.0 [facility] Comment on above: Order Comment: Order Added by Discern Expert. Performed By: #### 1 0335222, 4155409, 6283138, 8473801, 6124656, 9724622, 6862894 #### [facility] [address] [place] [address] Basophils/Leukocyte s Auto (Bld) [Pure # fraction] 0.1 E9/L Normal 0.0-0.2 [facility] Comment on above: Order Comment: Order Added by Discern Expert. Performed By: #### 1 5746673, 6105238, 3366467, 0550380, 5517706, 3948716, 1188318 #### [facility] [address] [place] [address] Eosinophils/100 WBC (Bld) 0.1 % Normal 0.0-8.0 [facility] Comment on above: Order Comment: Order Added by Discern Expert. Performed By: #### 1 9830544, 2390309, 8590807, 6213084, 6452242, 2493375, 0384874 #### [facility] [address] [place] [address] Eosinophils/Leukocy lefty Auto (Bld) [Pure # fraction] 0.0 E9/L Normal 0.0-0.5 [facility] Comment on above: Order Comment: Order Added by Discern Expert. Performed By: #### 1 0722971, 7802785, 1913452, 8327055, 2516781, 7774866, 1647776 #### [facility] [address] [place] [address] Lymphocytes/100 WBC (Bld) 16.1 % Normal 14.0-50.0 [facility] Comment on above: Order Comment: Order Added by Discern Expert. Performed By: #### 1 3917373, 5347652, 5959150, 3733171, 0784349, 3565636, 3582799 #### [facility] [address] [place] [address] Lymphocytes/Leukocy lefty Auto (Bld) [Pure # fraction] 1.5 E9/L Normal 1.0-4.0 [facility] Comment on above: Order Comment: Order Added by Discern Expert. Performed By: #### 1 5599745, 1406343, 9561147, 5918266, 6593723, 0119920, 4791027 #### [facility] [address] [place] [address] Monocytes/100 WBC (Bld) 4.6 % Normal 4.0-14.0 [facility] Comment on above: Order Comment: Order Added by Farrukh Expert. Performed By: #### 1 0297370, 8272620, 0046990, 0278606, 9982731, 8870509, 2015489 #### [facility] [address] [place] [address] Monocytes/Leukocyte s Auto (Bld) [Pure # fraction] 0.4 E9/L Normal 0.2-1.0 [facility] Comment on above: Order Comment: Order Added by Discern Expert. Performed By: #### 1 8360331, 7622538, 7649631, 0931305, 9797191, 1569684, 5411951 #### [facility] [address] [place] [address] Neutrophils/100 WBC (Bld) 78.6 % High 36.0-75.0 [facility] Comment on above: Order Comment: Order Added by Discern Expert. Performed By: #### 1 0867131, 4376901, 1767808, 1346304, 0142326, 5436017, 8136220 #### [facility] [address] [place] [address] Neutrophils/Leukocy lefty Auto (Bld) [Pure # fraction] 7.6 E9/L High 2.0-7.5 [facility] Comment on above: Order Comment: Order Added by Discern Expert. Performed By: #### 1 9600810, 5673010, 4349641, 2088184, 2358159, 1663803, 3190517 #### [facility] [address] [place] [address] BMPon 12-03-2021 Creatinine [Mass/Vol] 1.1 mg/dL Normal 0.5-1.3 [facility] Comment on above: Performed By: #### 1 9203916, 1749707, 3130752, 5269349, 6797470, 0430692, 4840093 #### [facility] [address] [place] [address] Urea nitrogen [Mass/Vol] 21 mg/dL Normal 5-21 [facility] Comment on above: Performed By: #### 1 3884333, 5951772, 5421229, 2116673, 2347112, 0647826, 2456242 #### [facility] [address] [place] [address] Urea nitrogen/Creatinine [Mass ratio] 19 No Units Normal 10-20 [facility] Comment on above: Performed By: #### 1 6304489, 7468227, 0765139, 6824506, 9247780, 7670880, 5578332 #### [facility] [address] [place] [address] Anion gap [Moles/Vol] 22 mmol/L High 6-16 [facility] Comment on above: Performed By: #### 1 2265285, 4649097, 0224682, 8851817, 0097019, 4833039, 5211853 #### [facility] [address] [place] [address] Calcium [Mass/Vol] 9.8 mg/dL Normal 8.9-11.1 [facility] Comment on above: Performed By: #### 1 0796496, 9820650, 4956173, 1130054, 9730533, 1896388, 8826716 #### [facility] [address] [place] [address] Chloride [Moles/Vol] 96 mmol/L Low 101-111 [facility] Comment on above: Performed By: #### 1 6265058, 5063006, 3096998, 9202818, 5520542, 1559787, 9738853 #### [facility] [address] [place] [address] CO2 [Moles/Vol] 19 mmol/L Low 21-31 [facility] Comment on above: Performed By: #### 1 5335784, 4470946, 1407727, 8669009, 2313127, 7133103, 6025178 #### [facility] [address] [place] [address] Glucose [Mass/Vol] 64 mg/dL Normal 55-199 [facility] Comment on above: Result Comment: If t his glucose result represents a fasting glucose, interpretation should refer to the following reference range: 55-99 mg/dL Performed By: #### 1 9297291, 0921598, 1150837, 2929102, 7897101, 1211950, 6391892 #### [facility] [address] [place] [address] Potassium [Moles/Vol] 4.3 mmol/L Normal 3.5-5.3 [facility] Comment on above: Performed By: #### 1 4171481, 1417996, 0535596, 1689302, 8763893, 8369191, 8834305 #### [facility] [address] [place] [address] Sodium [Moles/Vol] 133 mmol/L Low 135-145 [facility] Comment on above: Performed By: #### 1 5264867, 4309404, 1506543, 0591070, 0734602, 6591256, 6723842 #### [facility] [address] [place] [address] CBC w/ Auto Diffon 2 Erythrocyte distribution width (RBC) [Ratio] 13.5 % Normal 10.9-14.2 [facility] Comment on above: Performed By: #### 1 1158385, 1277620, 7611684, 8371091, 1991096, 3891257, 0402854 #### [facility] [address] [place] [address] Hematocrit (Bld) [Volume fraction] 51.0 % High 34.0-46.0 [facility] Comment on above: Performed By: #### 1 9048580, 6282765, 1949201, 4970950, 7124689, 9999315, 9321750 #### [facility] [address] [place] [address] Hemoglobin (Bld) [Mass/Vol] 16.8 g/dL High 12.0-16.0 [facility] Comment on above: Performed By: #### 1 7879656, 5264855, 5110406, 6298664, 5955002, 3052286, 1067858 #### [facility] [address] [place] [address] MCH (RBC) [Entitic mass] 30.9 pg Normal 27.0-34.0 [facility] Comment on above: Performed By: #### 1 1114470, 7820377, 1008332, 3446971, 3279608, 5203070, 7772535 #### [facility] [address] [place] [address] MCHC (RBC) [Mass/Vol] 32.9 g/dL Normal 31.4-36.0 [facility] Comment on above: Performed By: #### 1 6424018, 8624270, 9928382, 9782805, 7273169, 4919247, 6299165 #### [facility] [address] [place] [address] MCV (RBC) [Entitic vol] 94.0 fL Normal 80.0-100.0 [facility] Comment on above: Performed By: #### 1 7936331, 4233658, 6957166, 6576884, 0952306, 6530044, 1428354 #### [facility] [address] [place] [address] Platelet mean volume (Bld) [Entitic vol] 9.8 fL Normal 6.4-10.8 [facility] Comment on above: Performed By: #### 1 1015309, 8483968, 5336765, 2423211, 7912410, 6430372, 9430355 #### [facility] [address] [place] [address] Platelets (Bld) [#/Vol] 212.0 E9/L Normal 150.0-500.0 [facility] Comment on above: Performed By: #### 1 3852822, 7633619, 4205331, 9822327, 2668800, 3079542, 0733221 #### [facility] [address] [place] [address] RBC (Bld) [#/Vol] 5.4 E12/L Normal 4.3-5.9 [facility] Comment on above: Performed By: #### 1 6741266, 5664319, 2592750, 0349602, 3825978, 3056448, 4178039 #### [facility] [address] [place] [address] WBC corrected for nucl RBC Auto (Bld) [#/Vol] 9.6 E9/L Normal 4.0-11.0 [facility] Comment on above: Performed By: #### 1 9332974, 4372678, 6174722, 7104279, 8290178, 5206218, 6507266 #### [facility] [address] [place] [address] Consent for Treatmenton 11-16 Consent for Treatment [id number]:127 Normal [facility] Discharge Instructionson Discharge Instructions [id number]:127 Normal [facility] ED Clinical Summaryon 2021 ED Clinical Summary (Inserted Image. Antoinette ble to display) [address] [address] ED Clinical Summary Person Information Name: SAI PINEDA Natalie/[facility] Age: 51 Years : 1970 Sex: Female Language: Latvian PCP: CRISTINA IQBAL CNP Marital Status: MRN: Visit Id: Visit Reason: Nausea; Abdominal pain; JLFVO-GEUCH-LTCZ BREATHING Speciality: Acuity: 3 Enc Type: Emergency [...] 12/03/2021 13:54:54 12/03/2021 13:54:54 12/03/2021 13:54:54 ADDRESS: [address] [place] [phone] PHYS DOC NOTES: MEDICAL INFORMATION: Prescriptions Given: New Medications [facility]/pharmacy #[id number], [address], [place] [id number], [phone] promethazine (Phenergan 25 mg Supp) 1 Suppositories By rectum every 6 hours as needed as needed for nausea. Insert one per rectum every six hours as needed for nausea and vomiting. Refills: 0. promethazine (promethazine 25 mg Tab) 1 Tablets By Mouth every 4 hours. Refills: 0. Medications to Continue Taking That Have Changed [facility]/pharmacy #[id number], [address], [place] [id number], [phone] START: pantoprazole (Protonix 40 mg Tab-DR) 1 [...] day. PATIENT EDUCATION INFORMATION: Instructions: Gastritis, Adult, Jakd-lf-Cwyg; Abdominal Pain, Adult Follow up: With: Address: When: [facility]STINA [facility] [address] [facility], [place], [place] [phone] Business (1) In 3 days 12/06/2021 DIAGNOSIS: 1:Upper abdominal pain; 2:Gastritis; 3:Anxiety Normal [facility] ED Note-Physicianon 12-04-19 ED Note-Physician Basic Information [...] Daily, # 30 tab(s), Refills(s) 0, Pharmacy: [facility]/pharmacy #[id number], 172.9, cm, 12/03/21 10:15:00 EDT, Height/Length Dosing, 46.2, kg, 12/03/21 10:15:00 EDT, Weight Dosing promethazine, 25 mg = 1 tab(s), Oral, q4hr, # 12 tab(s), Refills(s) 0, [id number], 172.9, cm, 12/03/21 10:15:00 EDT, Height/Length Dosing, 46.2, kg, 12/03/21 10:15:00 EDT, Weight Dosing promethazine, 25 mg = 1 supp, Rectal, q6hr, PRN as needed for nausea, Insert one per rectum every six hours as needed for nausea and vomiting, # 6 EA, Refills(s) 0, [id number], 172.9, cm, 12/03/21 10:15:00 EDT, Height/Length [...] mg/mL IV Misty, 20 mg, IV Push [id number] [F], 1000 mL, IV promethazine 25 mg/mL [...] days 12/06/2021 EDT [address] [facility] [place] [address] [phone] Business (1) Additional Instructions: Patient Ed (more content not included)... Normal [facility] Comment on above: Result Comment: Elec tronically [...] these instructions at home: Medicines ? Take ymqm-vmy-zslcpfg and prescription medicines only as told by [...] 08/20/2008 Document Revised: 07/22/2018 Document Reviewed: 07/22/2018 [employer] Patient Education ? 2020 [employer]. Abdominal Pain, Adult Pain in the abdomen [...] these instructions at home: Medicines ? Take rmla-zqg-ummzgmv and prescription medicines only as told by [...] are cons (more content not included)... Normal [facility] ED Patient Summaryon 022 ED Patient Summary (Inserted Image. Antoinette ble to display) [place] [id number] Patient Discharge Instructions Person Information Name: SAI PINEDA Age: 51 Years Arrival Date: 12/03/2021 09:55:45 Discharge Diagnosis: 1:Upper abdominal pain; 2:Gastritis; 3:Anxiety Primary Care Physician: CRISTINA IQBAL CNP Provider Information Primary Provider: Vipin Pina MD Advanced Mathematics Education Professor:None The exam and treatment you received in the Emergency Department were for an urgent problem and are not intended as complete care. It is important that you follow up with a doctor, nurse practitioner, or physician?s housekeeper and laundry assistant for ongoing care. If your symptoms [...] Address: When: CRISTINA IQBAL [address] [place], [place] [phone] Business (1) In 3 days 12/06/2021 In the event that this physician does not participate in your insurance network, please consult with your insurance company to find a nearby participating provider. Patient Education Materials: Gastritis, Adult, Ybsx-yn-Iaie; Abdominal Pain, Adult A MESSAGE TO ALL PATIENTS REGARDING OPIOIDS PRESCRIPTION OPIOIDS: WHAT YOU NEED TO KNOW Prescription opioids can be used to help relieve pmqzcarw-ne-sfevzp pain and are often prescribed following a [...] be struggling with addiction, tell your health family day care provider and ask for guidance or call [facility]? (more content not included)... Normal [facility] Hep Func Panelon 12-03-2021 Albumin [Mass/Vol] 5.3 g/dL High 3.3-5.0 [facility] Comment on above: Performed By: #### 1 7014862, 7595955, 8919672, 6353437, 8452041, 2971805, 6928383 #### [facility] [address] [place] [address] Albumin/Globulin (S) [Mass conc ratio] 1.8 Normal 1.1-2.2 [facility] Comment on above: Performed By: #### 1 2627899, 6066108, 7951089, 4012032, 8318948, 2973637, 3537573 #### [facility] [address] [place] [address] ALP [Catalytic activity/Vol] 79 Int._Unit/L Normal 21-98 [facility] Comment on above: Performed By: #### 1 3914162, 8196380, 6112581, 0245425, 9388706, 2878814, 2022006 #### [facility] [address] [place] [address] ALT No additional P-5'-P [Catalytic activity/Vol] 14 Int._Unit/L Normal 6-46 [facility] Comment on above: Performed By: #### 1 5359524, 3142318, 7114235, 0059124, 2095205, 6561066, 8588889 #### [facility] [address] [place] [address] AST [Catalytic activity/Vol] 21 Int._Unit/L Normal 5-43 [facility] Comment on above: Performed By: #### 1 5239377, 8287436, 0604506, 1848407, 1813711, 4122092, 6305475 #### [facility] [address] [place] [address] Bilirubin [Mass/Vol] 1.2 mg/dL High 0.0-1.1 [facility] Comment on above: Performed By: #### 1 1744450, 5682660, 9675949, 0533000, 8676539, 5844975, 8957104 #### [facility] [address] [place] [address] Bilirubin.direct [Mass/Vol] 0.2 mg/dL Normal 0.1-0.4 [facility] Comment on above: Performed By: #### 1 2506186, 1498095, 6462237, 9203710, 2868241, 8990222, 2501279 #### [facility] [address] [place] [address] Bilirubin.indirect [Mass or moles/Vol] 1.0 mg/dL High 0.1-0.9 [facility] Comment on above: Performed By: #### 1 9084090, 6015213, 7127262, 9158531, 0183183, 7402122, 8791364 #### [facility] [address] [place] [address] Globulin (S) [Mass/Vol] 3.0 g/dL Normal 1.4-4.0 [facility] Comment on above: Performed By: #### 1 1925349, 1304517, 6685937, 8982935, 0352705, 5056740, 8085424 #### [facility] [address] [place] [address] Protein [Mass/Vol] 8.3 g/dL High 6.0-7.8 [facility] Comment on above: Performed By: #### 1 8323998, 5884535, 3447620, 3084109, 7514309, 8650304, 4614697 #### [facility] [address] [place] [address] Lipase Levelon 12-03-2021 Lipase [Catalytic activity/Vol] 21 U/L Normal 13-58 [facility] Comment on above: Performed By: #### 1 8382661, 3685708, 0285719, 9906017, 9055073, 2747006, 7991287 #### [facility] [address] [place] [address] eGFRon 12-03-2021 GFR/1.73 sq M.predicted among blacks MDRD (S/P/Bld) [Vol rate/Area] mL/min/{1.73_m2} Normal >=59 [facility] Comment on above: Order Comment: Order added by Discern Expert. Result Comment: eGFR is race adjusted. AA=. Performed By: #### 1 3932619, 0282311, 8383804, 8343674, 3204971, 0643170, 7454622 #### [facility] [address] [place] [address] GFR/1.73 sq M.predicted among non-blacks MDRD (S/P/Bld) [Vol rate/Area] 52 mL/min/1.73 m2 Low >=59 [facility] Comment on above: Order Comment: Order added by Discern Expert. Result Comment: Insurance Business Analyst julian kidney disease could be indicated at eGFR's of less than 60 mL/min/1.73m2. Kidney failure is indicated at less than 15 mL/min/1.73m2. Performed By: #### 1 3507075, 3394329, 7170186, 2481350, 6390697, 7455500, 6824193 #### [facility] [address] [place] [address] CARDIAC SIMA ADMITon 022 CK [Catalytic activity/Vol] 72 U/L Normal 26-192 [facility] Comment on above: Performed By: #### S SKYLER #### [facility] [address] [place] [address] Dr. Prince Olivas CK.MB [Mass/Vol] 1.28 ng/mL Normal <=3.60 [facility] Comment on above: Performed By: #### S SKYLER #### [facility] [address] [place] [address] Dr. Prince Olivas HSTROP 5.4 pg/mL Normal 4.0-51.3 [facility] Comment on above: Result Comment: CUT- OFF POINTS HAVE BEEN ESTABLISHED BASED ON THE FOURTH UNIVERSAL DEFINITIONS OF MYOCARDIAL INFARCTION. THE UPPER REFERENCE LIMIT (URL) OF TROPONIN, DEFINED THE 99TH PERCENTILE OF cTnI DISTRIBUTION IN A REFERENCE POPULATION, HAS BEEN CONFIRMED THE DECISION THRESHOLD FOR [place] DIAGNOSIS. Performed By: #### S SKYLER #### [facility] [address] [place] [address] Dr. Prince Olivas JENNIFER 58 ng/mL Normal 9-82 [facility] Comment on above: Performed By: #### S SKYLER #### [facility] [address] [place] [address] Dr. Prince Olivas CBC AUTO DIFFon 11-14-2021 BASO # 0.1 103/ul Normal 0.0-0.1 [facility] Comment on above: Performed By: #### L IPID, CMP #### [facility] [address] [place] [address] Dr. Prince Olivas Basophils/100 WBC (Bld) 0.6 % Normal 0.2-2.0 [facility] Comment on above: Performed By: #### L IPID, CMP #### [facility] [address] [place] [address] Dr. Prince Olivas EO # 0.1 103/ul Normal 0.0-0.7 [facility] Comment on above: Performed By: #### L IPID, CMP #### [facility] [address] [place] [address] Dr. Prince Olivas Eosinophils/100 WBC (Bld) 0.9 % Normal 0.9-7.0 [facility] Comment on above: Performed By: #### L IPID, CMP #### [facility] [address] [place] [address] Dr. Prince Olivas Erythrocyte distribution width (RBC) [Ratio] 13.0 % Normal 11.0-15.0 [facility] Comment on above: Performed By: #### L IPID, CMP #### [facility] [address] [place] [address] Dr. Prince Olivas Hematocrit (Bld) [Volume fraction] 46.3 % Normal 36.0-48.0 [facility] Comment on above: Performed By: #### L IPID, CMP #### [facility] [address] [place] [address] Dr. Prince Olivas Hemoglobin (Bld) [Mass/Vol] 15.8 g/dL Normal 12.0-16.0 [facility] Comment on above: Performed By: #### L IPID, CMP #### [facility] [address] [place] [address] Dr. Prince Olivas IG # 0.03 10e3/ul Normal 0.00-0.03 [facility] Comment on above: Performed By: #### L IPID, CMP #### [facility] [address] [place] [address] Dr. Prince Olivas IG % 0.3 % Normal 0.0-0.5 [facility] Comment on above: Performed By: #### L IPID, CMP #### [facility] [address] [place] [address] Dr. Prince Olivas LYMPH # 2.8 103/ul Normal 1.2-3.8 [facility] Comment on above: Performed By: #### L IPID, CMP #### [facility] [address] [place] [address] Dr. Prince Olivas Lymphocytes/100 WBC (Bld) 31.8 % Normal 20.5-60.0 [facility] Comment on above: Performed By: #### L IPID, CMP #### [facility] [address] [place] [address] Dr. Prince Olivas MANUAL DIFF REQ NO Normal [facility] Comment on above: Performed By: #### L IPID, CMP #### [facility] [address] [place] [address] Dr. Prince Olivas MCH (RBC) [Entitic mass] 31.5 pg Normal 26.7-34.0 [facility] Comment on above: Performed By: #### L IPID, CMP #### [facility] [address] [place] [address] Dr. Prince Olivas MCHC (RBC) [Mass/Vol] 34.1 g/dL Normal 29.9-35.2 [facility] Comment on above: Performed By: #### L IPID, CMP #### [facility] [address] [place] [address] Dr. Prince Olivas MCV (RBC) [Entitic vol] 92.4 fL Normal 81.0-99.0 [facility] Comment on above: Performed By: #### L IPID, CMP #### [facility] [address] [place] [address] Dr. Prince Olivas MONO # 0.6 103/ul Normal 0.3-0.8 [facility] Comment on above: Performed By: #### L IPID, CMP #### [facility] [address] [place] [address] Dr. Prince Olivas Monocytes/100 WBC (Bld) 6.8 % Normal 1.7-12.0 [facility] Comment on above: Performed By: #### L IPID, CMP #### [facility] [address] [place] [address] Dr. Prince Olivas NEUT # 5.3 103/ul Normal 1.4-6.5 [facility] Comment on above: Performed By: #### L IPID, CMP #### [facility] [address] [place] [address] Dr. Prince Olivas Neutrophils/100 WBC (Bld) 59.6 % Normal 43.0-75.0 [facility] Comment on above: Performed By: #### L IPID, CMP #### [facility] [address] [place] [address] Dr. Prince Olivas Platelet mean volume (Bld) [Entitic vol] 11.6 fL Normal 9.5-13.5 [facility] Comment on above: Performed By: #### L IPID, CMP #### [facility] [address] [place] [address] Dr. Prince Olivas PLT 185 103/ul Normal 150-450 [facility] Comment on above: Performed By: #### L IPID, CMP #### [facility] [address] [place] [address] Dr. Prince Olivas RBC 5.01 106/ul Normal 4.20-5.40 [facility] Comment on above: Performed By: #### L IPID, CMP #### [facility] [address] [place] [address] Dr. Prince Olivas WBC 8.9 103/ul Normal 4.0-11.0 [facility] Comment on above: Performed By: #### L IPID, CMP #### [facility] [address] [place] [address] Dr. Prince Olivas LIPASEon 11-14-2021 Lipase [Catalytic activity/Vol] 84.0 U/L Normal 73.0-393.0 [facility] Comment on above: Performed By: #### S ELNIUM #### [facility] [address] [place] [address] Dr. Prince Olivas PROF 14(COMP METB)on 022 Albumin [Mass/Vol] 4.1 g/dL Normal 3.4-5.0 [facility] Comment on above: Performed By: #### S ELNIUM #### [facility] [address] [place] [address] Dr. Prince Olivas Albumin/Globulin [Mass ratio] 1.6 {ratio} Normal [facility] Comment on above: Performed By: #### S ELNIUM #### [facility] [address] [place] [address] Dr. Prince Olivas ALP [Catalytic activity/Vol] 76 U/L Normal 46-116 [facility] Comment on above: Performed By: #### S ELNIUM #### [facility] [address] [place] [address] Dr. Prince Olivas ALT [Catalytic activity/Vol] 14 U/L Normal 14-59 [facility] Comment on above: Performed By: #### S ELNIUM #### [facility] [address] [place] [address] Dr. Prince Olivas Anion gap [Moles/Vol] 17.7 mmol/L Normal [facility] Comment on above: Performed By: #### S ELNIUM #### [facility] [address] [place] [address] Dr. Prince Olivas AST [Catalytic activity/Vol] 15 U/L Normal 15-37 [facility] Comment on above: Performed By: #### S ELNIUM #### [facility] [address] [place] [address] Dr. Prince Olivas Bilirubin [Mass/Vol] 0.7 mg/dL Normal 0.2-1.0 [facility] Comment on above: Performed By: #### S ELNIUM #### [facility] [address] [place] [address] Dr. Prince Olivas Calcium [Mass/Vol] 9.4 mg/dL Normal 8.5-10.1 [facility] Comment on above: Performed By: #### S ELNIUM #### [facility] [address] [place] [address] Dr. Prince Olivas Chloride [Moles/Vol] 104 mmol/L Normal 98-107 [facility] Comment on above: Performed By: #### S ELNIUM #### [facility] [address] [place] [address] Dr. Prince Olivas CO2 [Moles/Vol] 20.8 mmol/L Critically low 21.0-32.0 [facility] Comment on above: Performed By: #### S ELNIUM #### [facility] [address] [place] [address] Dr. Prince Olivas Creatinine [Mass/Vol] 0.96 mg/dL Normal 0.55-1.02 [facility] Comment on above: Performed By: #### S ELNIUM #### [facility] [address] [place] [address] Dr. Prince Olivas EGFR-AF ROMANIAN >60 Normal >=60 [facility] Comment on above: Performed By: #### S ELNIUM #### [facility] [address] [place] [address] Dr. Prince Olivas EGFR-NON AF ROMANIAN >60 Normal >=60 [facility] Comment on above: Performed By: #### S ELNIUM #### [facility] [address] [address] [address] Prince Olivas Globulin (S) [Mass/Vol] 2.6 g/dL Normal [facility] Comment on above: Performed By: #### S ELNIUM #### [facility] [address] [place] [address] Dr. Prince Olivas Glucose [Mass/Vol] 104 mg/dL Normal 74-106 [facility] Comment on above: Performed By: #### S ELNIUM #### [facility] [address] [place] [address] Dr. Prince Olivas Potassium [Moles/Vol] 3.5 mmol/L Normal 3.5-5.1 [facility] Comment on above: Performed By: #### S ELNIUM #### [facility] [address] [place] [address] Dr. Prince Olivas Protein [Mass/Vol] 6.7 g/dL Normal 6.4-8.2 [facility] Comment on above: Performed By: #### S ELNIUM #### [facility] [address] [place] [address] Dr. Prince Olivas Sodium [Moles/Vol] 139 mmol/L Normal 136-145 [facility] Comment on above: Performed By: #### S ELNIUM #### [facility] [address] [address] [address] Prince Olivas Urea nitrogen [Mass/Vol] 10.0 mg/dL Normal 7.0-18.0 [facility] Comment on above: Performed By: #### S ELNIUM #### [facility] [address] [address] [address] Prinec Olivas Urea nitrogen/Creatinine [Mass ratio] 10.4 mg/mg Normal [facility] Comment on above: Performed By: #### S ELNIUM #### [facility] [address] [place] [address] Dr. Prince Olivas XR ABD FLAT UP_PA [...] CHITRA ALFARO Date: 2021-11-14 18:10 Normal [facility] CBC AUTO DIFFon 11-09-2021 BASO # 0.0 103/ul Normal 0.0-0.1 [facility] Comment on above: Performed By: #### S ELNIUM #### [facility] [address] [place] [address] Dr. Prince Olivas Basophils/100 WBC (Bld) 0.3 % Normal 0.2-2.0 [facility] Comment on above: Performed By: #### S ELNIUM #### [facility] [address] [address] [address] Prince Olivas EO # 0.0 103/ul Normal 0.0-0.7 [facility] Comment on above: Performed By: #### S ELNIUM #### [facility] [address] [place] [address] Dr. Prince Olivas Eosinophils/100 WBC (Bld) 0.3 % Critically low 0.9-7.0 [facility] Comment on above: Performed By: #### S ELNIUM #### [facility] [address] [place] [address] Dr. Prince Olivas Erythrocyte distribution width (RBC) [Ratio] 13.1 % Normal 11.0-15.0 [facility] Comment on above: Performed By: #### S ELNIUM #### [facility] [address] [place] [address] Dr. Prince Olivas Hematocrit (Bld) [Volume fraction] 46.8 % Normal 36.0-48.0 [facility] Comment on above: Performed By: #### S ELNIUM #### [facility] [address] [place] [address] Dr. Prince Olivas Hemoglobin (Bld) [Mass/Vol] 15.8 g/dL Normal 12.0-16.0 [facility] Comment on above: Performed By: #### S ELNIUM #### [facility] [address] [place] [address] Dr. Prince Olivas IG # 0.03 10e3/ul Normal 0.00-0.03 [facility] Comment on above: Performed By: #### S ELNIUM #### [facility] [address] [place] [address] Dr. Prince Olivas IG % 0.3 % Normal 0.0-0.5 [facility] Comment on above: Performed By: #### S ELNIUM #### [facility] [address] [place] [address] Dr. Prince Olivas LYMPH # 2.9 103/ul Normal 1.2-3.8 [facility] Comment on above: Performed By: #### S ELNIUM #### [facility] [address] [place], [place] [id number] Dr. Prince Olivas Lymphocytes/100 WBC (Bld) 31.7 % Normal 20.5-60.0 [facility] Comment on above: Performed By: #### S ELNIUM #### [facility] [address] [place] [address] Dr. Prince Olivas MANUAL DIFF REQ NO Normal [facility] Comment on above: Performed By: #### S ELNIUM #### [facility] [address] [place] [address] Dr. Prince Olivas MCH (RBC) [Entitic mass] 31.9 pg Normal 26.7-34.0 [facility] Comment on above: Performed By: #### S ELNIUM #### [facility] [address] [place] [address] Dr. Prince Olivas MCHC (RBC) [Mass/Vol] 33.8 g/dL Normal 29.9-35.2 [facility] Comment on above: Performed By: #### S ELNIUM #### [facility] [address] [place] [address] Dr. Prince Olivas MCV (RBC) [Entitic vol] 94.5 fL Normal 81.0-99.0 [facility] Comment on above: Performed By: #### S ELNIUM #### [facility] [address] [place] [address] Dr. Prince Olivas MONO # 0.5 103/ul Normal 0.3-0.8 [facility] Comment on above: Performed By: #### S ELNIUM #### [facility] [address] [place] [address] Dr. Prince Olivas Monocytes/100 WBC (Bld) 5.2 % Normal 1.7-12.0 [facility] Comment on above: Performed By: #### S ELNIUM #### [facility] [address] [place] [address] Dr. Prince Olivas NEUT # 5.8 103/ul Normal 1.4-6.5 [facility] Comment on above: Performed By: #### S ELNIUM #### [facility] [address] [address] [address] Prince Olivas Neutrophils/100 WBC (Bld) 62.2 % Normal 43.0-75.0 [facility] Comment on above: Performed By: #### S ELNIUM #### [facility] [address] [address] [address] Prince Olivas Platelet mean volume (Bld) [Entitic vol] 11.1 fL Normal 9.5-13.5 [facility] Comment on above: Performed By: #### S ELNIUM #### [facility] [address] [address] [address] Prince Olivas PLT 218 103/ul Normal 150-450 [facility] Comment on above: Performed By: #### S ELNIUM #### [facility] [address] [place] [address] Dr. Prince Olivas RBC 4.95 106/ul Normal 4.20-5.40 [facility] Comment on above: Performed By: #### S ELNIUM #### [facility] [address] [address] [address] Prince Olivas WBC 9.3 103/ul Normal 4.0-11.0 [facility] Comment on above: Performed By: #### S ELNIUM #### [facility] [address] [place] [address] Dr. Prince Olivas PROF CHEM 8 (BAS METB)on Anion gap [Moles/Vol] 14.8 mmol/L Normal [facility] Comment on above: Performed By: #### C OPPER #### [facility] [address] [place] [address] Dr. Prince Olivas Calcium [Mass/Vol] 9.3 mg/dL Normal 8.5-10.1 [facility] Comment on above: Performed By: #### C OPPER #### [facility] [address] [place] [address] Dr. Prince Olivas Chloride [Moles/Vol] 105 mmol/L Normal 98-107 [facility] Comment on above: Performed By: #### C OPPER #### [facility] [address] [address] [address] Prince Olivas CO2 [Moles/Vol] 23.7 mmol/L Normal 21.0-32.0 [facility] Comment on above: Performed By: #### C OPPER #### [facility] [address] [address] [address] Prince Olivas Creatinine [Mass/Vol] 0.95 mg/dL Normal 0.55-1.02 [facility] Comment on above: Performed By: #### C OPPER #### [facility] [address] [address] [address] Prince Olivas EGFR-AF ROMANIAN >60 Normal >=60 [facility] Comment on above: Performed By: #### C OPPER #### [facility] [address] [place] [address] Dr. Prince Olivas EGFR-NON AF ROMANIAN >60 Normal >=60 [facility] Comment on above: Performed By: #### C OPPER #### [facility] [address] [place] [address] Dr. Prince Olivas Glucose [Mass/Vol] 103 mg/dL Normal 74-106 [facility] Comment on above: Performed By: #### C OPPER #### [facility] [address] [place] [address] Dr. Prince Olivas Potassium [Moles/Vol] 3.5 mmol/L Normal 3.5-5.1 [facility] Comment on above: Performed By: #### C OPPER #### [facility] [address] [place] [address] Dr. Prince Olivas Sodium [Moles/Vol] 140 mmol/L Normal 136-145 [facility] Comment on above: Performed By: #### C OPPER #### [facility] [address] [place] [address] Dr. Prince Olivas Urea nitrogen [Mass/Vol] 7.0 mg/dL Normal 7.0-18.0 [facility] Comment on above: Performed By: #### C OPPER #### [facility] [address] [place] [address] Dr. Prince Olivas Urea nitrogen/Creatinine [Mass ratio] 7.4 mg/mg Normal [facility] Comment on above: Performed By: #### C OPPER #### [facility] [address] [address] [address] Prince Olivas TROPONIN, HIGH SENSITIVITYon 11-09-2021 HSTROP 4.3 pg/mL Normal 4.0-51.3 [facility] Comment on above: Result Comment: CUT- OFF POINTS HAVE BEEN ESTABLISHED BASED ON THE FOURTH UNIVERSAL DEFINITIONS OF MYOCARDIAL INFARCTION. THE UPPER REFERENCE LIMIT (URL) OF TROPONIN, DEFINED THE 99TH PERCENTILE OF cTnI DISTRIBUTION IN A REFERENCE POPULATION, HAS BEEN CONFIRMED THE DECISION THRESHOLD FOR [place] DIAGNOSIS. Performed By: #### C OPPER #### [facility] [address] [address] [address] Prince Olivas XR CHEST 1 Von [...] BELEN REGAN Date: 2021-11-09 17:05 Normal [facility] CARDIAC SIMA ADMITon 022 CK [Catalytic activity/Vol] 62 U/L Normal 26-192 [facility] Comment on above: Performed By: #### M MA2 #### [facility] [address] [address] [address] Prince Olivas CK.MB [Mass/Vol] 0.37 ng/mL Normal <=3.60 [facility] Comment on above: Performed By: #### M MA2 #### [facility] [address] [place] [address] Dr. Prince Olivas HSTROP 3.5 pg/mL Critically low 4.0-51.3 [facility] Comment on above: Result Comment: CUT- OFF POINTS HAVE BEEN ESTABLISHED BASED ON THE FOURTH UNIVERSAL DEFINITIONS OF MYOCARDIAL INFARCTION. THE UPPER REFERENCE LIMIT (URL) OF TROPONIN, DEFINED THE 99TH PERCENTILE OF cTnI DISTRIBUTION IN A REFERENCE POPULATION, HAS BEEN CONFIRMED THE DECISION THRESHOLD FOR [place] DIAGNOSIS. Performed By: #### M MA2 #### [facility] [address] [place] [address] Dr. Prince Olivas JENNIFER 40 ng/mL Normal 9-82 [facility] Comment on above: Performed By: #### M MA2 #### [facility] [address] [place] [address] Dr. Prince Olivas CBC AUTO DIFFon 10-04-2021 BASO # 0.0 103/ul Normal 0.0-0.1 [facility] Comment on above: Performed By: #### C BC #### [facility] [address] [place] [address] Dr. Prince Olivas Basophils/100 WBC (Bld) 0.6 % Normal 0.2-2.0 [facility] Comment on above: Performed By: #### C BC #### [facility] [address] [place] [address] Dr. Prince Olivas EO # 0.3 103/ul Normal 0.0-0.7 [facility] Comment on above: Performed By: #### C BC #### [facility] [address] [place] [address] Dr. Prince Olivas Eosinophils/100 WBC (Bld) 3.7 % Normal 0.9-7.0 [facility] Comment on above: Performed By: #### C BC #### [facility] [address] [place] [address] Dr. Prince Olivas Erythrocyte distribution width (RBC) [Ratio] 13.4 % Normal 11.0-15.0 [facility] Comment on above: Performed By: #### C BC #### [facility] [address] [place] [address] Dr. Prince Olivas Hematocrit (Bld) [Volume fraction] 42.8 % Normal 36.0-48.0 [facility] Comment on above: Performed By: #### C BC #### [facility] [address] [place] [address] Dr. Prince Olivas Hemoglobin (Bld) [Mass/Vol] 14.1 g/dL Normal 12.0-16.0 [facility] Comment on above: Performed By: #### C BC #### [facility] [address] [place] [address] Dr. Prince Olivas IG # 0.02 10e3/ul Normal 0.00-0.03 [facility] Comment on above: Performed By: #### C BC #### [facility] [address] [place] [address] Dr. Prince Olivas IG % 0.3 % Normal 0.0-0.5 [facility] Comment on above: Performed By: #### C BC #### [facility] [address] [place] [address] Dr. Prince Olivas LYMPH # 2.0 103/ul Normal 1.2-3.8 [facility] Comment on above: Performed By: #### C BC #### [facility] [address] [place] [address] Dr. Prince Olivas Lymphocytes/100 WBC (Bld) 27.6 % Normal 20.5-60.0 [facility] Comment on above: Performed By: #### C BC #### [facility] [address] [place] [address] Dr. Prince Olivas MANUAL DIFF REQ NO Normal [facility] Comment on above: Performed By: #### C BC #### [facility] [address] [place] [address] Dr. Prince Olivas MCH (RBC) [Entitic mass] 31.4 pg Normal 26.7-34.0 [facility] Comment on above: Performed By: #### C BC #### [facility] [address] [place] [address] Dr. Prince Olivas MCHC (RBC) [Mass/Vol] 32.9 g/dL Normal 29.9-35.2 [facility] Comment on above: Performed By: #### C BC #### [facility] [address] [place] [address] Dr. Prince Olivas MCV (RBC) [Entitic vol] 95.3 fL Normal 81.0-99.0 [facility] Comment on above: Performed By: #### C BC #### [facility] [address] [place] [address] Dr. Prince Olivas MONO # 0.6 103/ul Normal 0.3-0.8 [facility] Comment on above: Performed By: #### C BC #### [facility] [address] [place] [address] Dr. Prince Olivas Monocytes/100 WBC (Bld) 8.2 % Normal 1.7-12.0 [facility] Comment on above: Performed By: #### C BC #### [facility] [address] [place] [address] Dr. Prince Olivas NEUT # 4.2 103/ul Normal 1.4-6.5 [facility] Comment on above: Performed By: #### C BC #### [facility] [address] [place] [address] Dr. Prince Olivas Neutrophils/100 WBC (Bld) 59.6 % Normal 43.0-75.0 [facility] Comment on above: Performed By: #### C BC #### [facility] [address] [place] [address] Dr. Prince Olivas Platelet mean volume (Bld) [Entitic vol] 11.1 fL Normal 9.5-13.5 [facility] Comment on above: Performed By: #### C BC #### [facility] [address] [place] [address] Dr. Prince Olivas PLT 194 103/ul Normal 150-450 [facility] Comment on above: Performed By: #### C BC #### [facility] [address] [place] [address] Dr. Prince Olivas RBC 4.49 106/ul Normal 4.20-5.40 [facility] Comment on above: Performed By: #### C BC #### [facility] [address] [place] [address] Dr. Prince Olivas WBC 7.1 103/ul Normal 4.0-11.0 [facility] [facility] Comment on above: Performed By: #### C BC #### [facility] [address] [address] [address] Prince Olivas PROF 14(COMP METB)on 022 Albumin [Mass/Vol] 3.9 g/dL Normal 3.4-5.0 [facility] Comment on above: Performed By: #### M MA2 #### [facility] [address] [address] [address] Prince Olivas Albumin/Globulin [Mass ratio] 1.4 {ratio} Normal [facility] Comment on above: Performed By: #### M MA2 #### [facility] [address] [address] [address] Prince Olivas ALP [Catalytic activity/Vol] 71 U/L Normal 46-116 [facility] Comment on above: Performed By: #### M MA2 #### [facility] [address] [place] [address] Dr. Prince Olivas ALT [Catalytic activity/Vol] 18 U/L Normal 14-59 [facility] Comment on above: Performed By: #### M MA2 #### [facility] [address] [address] [address] Prince Olivas Anion gap [Moles/Vol] 10.1 mmol/L Normal [facility] Comment on above: Performed By: #### M MA2 #### [facility] [address] [place] [address] Dr. Prince Olivas AST [Catalytic activity/Vol] 11 U/L Critically low 15-37 [facility] Comment on above: Performed By: #### M MA2 #### [facility] [address] [place] [address] Dr. Prince Olivas Bilirubin [Mass/Vol] 0.4 mg/dL Normal 0.2-1.0 [facility] Comment on above: Performed By: #### M MA2 #### [facility] [address] [place] [address] Dr. Prince Olivas Calcium [Mass/Vol] 8.8 mg/dL Normal 8.5-10.1 [facility] Comment on above: Performed By: #### M MA2 #### [facility] [address] [address] [address] Prince Olivas Chloride [Moles/Vol] 105 mmol/L Normal 98-107 [facility] Comment on above: Performed By: #### M MA2 #### [facility] [address] [address] [address] Prince Olivas CO2 [Moles/Vol] 27.0 mmol/L Normal 21.0-32.0 [facility] Comment on above: Performed By: #### M MA2 #### [facility] [address] [address] [address] Prince Olivas Creatinine [Mass/Vol] 0.67 mg/dL Normal 0.55-1.02 [facility] Comment on above: Performed By: #### M MA2 #### [facility] [address] [address] [address] Prince Olivas EGFR-AF ROMANIAN >60 Normal >=60 [facility] Comment on above: Performed By: #### Marine MA2 #### [facility] [address] [address] [address] Prince Olivas EGFR-NON AF ROMANIAN >60 Normal >=60 [facility] Comment on above: Performed By: #### M MA2 #### [facility] [address] [address] [address] Prince Olivas Globulin (S) [Mass/Vol] 2.7 g/dL Normal [facility] Comment on above: Performed By: #### M MA2 #### [facility] [address] [address] [address] Prince Olivas Glucose [Mass/Vol] 105 mg/dL Normal 74-106 [facility] Comment on above: Performed By: #### M MA2 #### [facility] [address] [address] [address] Prince Olivas Potassium [Moles/Vol] 4.1 mmol/L Normal 3.5-5.1 [facility] Comment on above: Performed By: #### M MA2 #### [facility] [address] [address] [address] Prince Olivas Protein [Mass/Vol] 6.6 g/dL Normal 6.4-8.2 [facility] Comment on above: Performed By: #### M MA2 #### [facility] [address] [address] [address] Prince Olivas Sodium [Moles/Vol] 138 mmol/L Normal 136-145 [facility] Comment on above: Performed By: #### M MA2 #### [facility] [address] [address] [address] Prince Olivas Urea nitrogen [Mass/Vol] 7.0 mg/dL Normal 7.0-18.0 [facility] Comment on above: Performed By: #### M MA2 #### [facility] [address] [address] [address] Prince Olivas Urea nitrogen/Creatinine [Mass ratio] 10.4 mg/mg Normal [facility] Comment on above: Performed By: #### M MA2 #### [facility] [address] [address] [address] Prince Olivas XR CHEST 1 Von [...] BARBI HENRY Date: 2021-10-04 10:58 Normal [facility] PROLACTINon 09-26-2021 Prolactin 149.0 ng/mL Critically high 4.8-23.3 [facility] Comment on above: Performed By: #### L IPID, CMP #### [facility] [address] [address] [address] Prince Olivas LIPID PROFILEon 09-25-2021 CHOL-HDL RATIO NORM SEE BELOW Normal [facility] Comment on above: Result Comment: 3.3 - 4.4 LOW RISK 4.4 - 7.1 AVERAGE RISK 7.1 - 11.0 MODERATE RISK >11.0 HIGH RISK Performed By: #### L IPID, CMP #### [facility] [address] [address] [address] Prince Olivas Cholesterol [Mass/Vol] 205 mg/dL Critically high <=200 [facility] Comment on above: Performed By: #### L IPID, CMP #### [facility] [address] [address] [address] Prince Olivas Cholesterol in HDL [Mass/Vol] 46 mg/dL Normal 40-60 [facility] Comment on above: Performed By: #### L IPID, CMP #### [facility] [address] [address] [address] Prince Olivas Cholesterol in LDL [Mass/Vol] 148.6 mg/dL Normal [facility] Comment on above: Performed By: #### L IPID, CMP #### [facility] [address] [place] [address] Dr. Prince Olivas Cholesterol.total/C holesterol in HDL [Mass ratio] 4.5 {ratio} Normal [facility] Comment on above: Performed By: #### L IPID, CMP #### [facility] [address] [place] [address] Dr. Prince Olivas HDL NORMAL > or = 60 mg/dl - LO W CARDIOVASCULAR RISK <40 mg/dl - HIGH CARDIOVASCULAR RISK Normal [facility] Comment on above: Performed By: #### L IPID, CMP #### [facility] [address] [place] [address] Dr. Prince Olivas LDL CALC NORMAL SEE BELOW Normal [facility] Comment on above: Result Comment: <100 mg/dl OPTIMAL 100 - 129 mg/dl NEAR OR ABOVE OPTIMAL 130 - 159 mg/dl BORDERLINE HIGH 160 - 189 mg/dl HIGH >190 mg/dl VERY HIGH Performed By: #### L IPID, CMP #### [facility] [address] [address] [address] Prince Olivas Triglyceride [Mass/Vol] 52 mg/dL Normal <=150 [facility] Comment on above: Performed By: #### L IPID, CMP #### [facility] [address] [place] [address] Dr. Prince Olivas VLDL CALC 10.4 mg/dL Normal [facility] Comment on above: Performed By: #### L IPID, CMP #### [facility] [address] [place] [address] Dr. Prince Olivas PROF 14(COMP METB)on 022 Albumin [Mass/Vol] 3.7 g/dL Normal 3.4-5.0 [facility] Comment on above: Performed By: #### L IPID, CMP #### [facility] [address] [place] [address] Dr. Prince Olivas Albumin/Globulin [Mass ratio] 1.5 {ratio} Normal [facility] Comment on above: Performed By: #### L IPID, CMP #### [facility] [address] [place] [address] Dr. Prince Olivas ALP [Catalytic activity/Vol] 66 U/L Normal 46-116 [facility] Comment on above: Performed By: #### L IPID, CMP #### [facility] [address] [place] [address] Dr. Prince Olivas ALT [Catalytic activity/Vol] 14 U/L Normal 14-59 [facility] Comment on above: Performed By: #### L IPID, CMP #### [facility] [address] [place] [address] Dr. Prince Olivas Anion gap [Moles/Vol] 13.8 mmol/L Normal [facility] Comment on above: Performed By: #### L IPID, CMP #### [facility] [address] [place] [address] Dr. Prince Olivas AST [Catalytic activity/Vol] 10 U/L Critically low 15-37 [facility] Comment on above: Performed By: #### L IPID, CMP #### [facility] [address] [place] [address] Dr. Prince Olivas Bilirubin [Mass/Vol] 0.3 mg/dL Normal 0.2-1.0 [facility] Comment on above: Performed By: #### L IPID, CMP #### [facility] [address] [address] [address] Prince Olivas Calcium [Mass/Vol] 8.9 mg/dL Normal 8.5-10.1 [facility] Comment on above: Performed By: #### L IPID, CMP #### [facility] [address] [address] [address] Prince Olivas Chloride [Moles/Vol] 106 mmol/L Normal 98-107 [facility] Comment on above: Performed By: #### L IPID, CMP #### [facility] [address] [address] [address] Prince Olivas CO2 [Moles/Vol] 24.0 mmol/L Normal 21.0-32.0 [facility] Comment on above: Performed By: #### L IPID, CMP #### [facility] [address] [place] [address] Dr. Prince Olivas Creatinine [Mass/Vol] 1.05 mg/dL Critically high 0.55-1.02 [facility] Comment on above: Performed By: #### L IPID, CMP #### [facility] [address] [place] [address] Dr. Prince Olivas EGFR-AF ROMANIAN >60 Normal >=60 [facility] Comment on above: Performed By: #### L IPID, CMP #### [facility] [address] [place] [address] Dr. Prince Olivas EGFR-NON AF ROMANIAN 55 mL/min/1.73m2 Critically low >=60 [facility] Comment on above: Performed By: #### L IPID, CMP #### [facility] [address] [place] [address] Dr. Prince Olivas Globulin (S) [Mass/Vol] 2.5 g/dL Normal [facility] Comment on above: Performed By: #### L IPID, CMP #### [facility] [address] [address] [address] Prince Olivas Glucose [Mass/Vol] 107 mg/dL Critically high 74-106 [facility] Comment on above: Performed By: #### L IPID, CMP #### [facility] [address] [address] [address] Prince Olivas Potassium [Moles/Vol] 3.8 mmol/L Normal 3.5-5.1 [facility] Comment on above: Performed By: #### L IPID, CMP #### [facility] [address] [place] [address] Dr. Prince Olivas Protein [Mass/Vol] 6.2 g/dL Critically low 6.4-8.2 [facility] Comment on above: Performed By: #### L IPID, CMP #### [facility] [address] [address] [address] Prince Olivas Sodium [Moles/Vol] 140 mmol/L Normal 136-145 [facility] Comment on above: Performed By: #### L IPID, CMP #### [facility] [address] [place] [address] Dr. Prince Olivas Urea nitrogen [Mass/Vol] 10.0 mg/dL Normal 7.0-18.0 [facility] Comment on above: Performed By: #### L IPID, CMP #### [facility] [address] [place] [address] Dr. Prince Olivas Urea nitrogen/Creatinine [Mass ratio] 9.5 mg/mg Normal [facility] Comment on above: Performed By: #### L IPID, CMP #### [facility] [address] [place] [address] Dr. Prince Olivas Vital Signs Date Time Vital Sign Value Performing Clinician Facility 03-23-2024 13:10-0500 Blood Pressure Location Sandoval Rae [facility] 03-23-2024 13:10-0500 Diastolic blood pressure 70 mm[Hg] Sandoval Rae [facility] 03-23-2024 13:10-0500 Heart rate 96 /min Sandoval Rae [facility] 03-23-2024 13:10-0500 Systolic blood pressure 102 mm[Hg] Mohamad Mouchli [facility] 02-25-2024 11:16-0500 Diastolic blood pressure 64 mm[Hg] Mohamad Mouchli [facility] 02-25-2024 11:16-0500 Heart rate 71 /min Mohamad Mouchli [facility] 02-25-2024 11:16-0500 Mean blood pressure 80 mm[Hg] Mohamad Mouchli [facility] 02-25-2024 11:16-0500 Respiratory rate 10 /min Mohamad Mouchli [facility] 02-25-2024 11:16-0500 SaO2% (BldA) [Mass fraction] 96 % Mohamad Mouchli [facility] 02-25-2024 11:16-0500 Systolic blood pressure 113 mm[Hg] Mohamad Mouchli [facility] 02-25-2024 11:05-0500 Diastolic blood pressure 75 mm[Hg] Mohamad Mouchli [facility] 02-25-2024 11:05-0500 Heart rate 73 /min Mohamad Mouchli [facility] 02-25-2024 11:05-0500 Mean blood pressure 86 mm[Hg] Mohamad Mouchli [facility] 02-25-2024 11:05-0500 Respiratory rate 18 /min Mohamad Mouchli [facility] 02-25-2024 11:05-0500 SaO2% (BldA) [Mass fraction] 95 % Mohamad Mouchli [facility] 02-25-2024 11:05-0500 Systolic blood pressure 107 mm[Hg] Mohamad Mouchli [facility] 02-25-2024 10:51-0500 Body temperature 98.24 [degF] Mohamad Mouchli [facility] 02-25-2024 10:51-0500 Diastolic blood pressure 92 mm[Hg] Mohamad Mouchli [facility] 02-25-2024 10:51-0500 Heart rate 81 /min Mohamad Mouchli [facility] 02-25-2024 10:51-0500 Mean blood pressure 96 mm[Hg] Mohamad Mouchli [facility] 02-25-2024 10:51-0500 Respiratory rate 18 /min Mohamad Mouchli [facility] 02-25-2024 10:51-0500 SaO2% (BldA) [Mass fraction] 97 % Mohamad Mouchli [facility] 02-25-2024 10:51-0500 Systolic blood pressure 103 mm[Hg] Mohamad Mouchli [facility] 02-25-2024 10:45-0500 Respiratory rate 15 /min Mohamad Mouchli [facility] 02-25-2024 10:40-0500 Respiratory rate 16 /min Mohamad Mouchli [facility] 02-25-2024 10:35-0500 Respiratory rate 17 /min Mohamad Mouchli [facility] 02-25-2024 09:14-0500 Blood Pressure Location Mohamad Mouchli [facility] 02-25-2024 09:14-0500 Body temperature 97.88 [degF] Mohamad Mouchli [facility] 02-21-2024 08:41-0500 Blood Pressure Location Mohamad Mouchli [facility] 02-21-2024 08:41-0500 Diastolic blood pressure 83 mm[Hg] Mohamad Mouchli [facility] 02-21-2024 08:41-0500 Heart rate 80 /min Mohamad Mouchli [facility] 02-21-2024 08:41-0500 Systolic blood pressure 134 mm[Hg] Mohamad Mouchli [facility] 01-16-2024 10:08-0400 Blood Pressure Location Mohamad Mouchli [facility] 01-16-2024 10:08-0400 Diastolic blood pressure 76 mm[Hg] Mohamad Mouchli [facility] 01-16-2024 10:08-0400 Heart rate 73 /min Mohamad Mouchli [facility] 01-16-2024 10:08-0400 Systolic blood pressure 116 mm[Hg] Mohamad Mouchli [facility] 09-24-2023 15:00-0400 Diastolic blood pressure 78 mm[Hg] José Luis Resendiz [facility] 09-24-2023 15:00-0400 Heart rate 66 /min José Luis Resendiz [facility] 09-24-2023 15:00-0400 Mean blood pressure 95 mm[Hg] José Luis Astrid [facility] 09-24-2023 15:00-0400 Respiratory rate 16 /min José Luis Moee [facility] 09-24-2023 15:00-0400 Systolic blood pressure 128 mm[Hg] José Luis Moee [facility] 09-24-2023 14:00-0400 Diastolic blood pressure 69 mm[Hg] José Luis Moee [facility] 09-24-2023 14:00-0400 Heart rate 75 /min José Luis Moee [facility] 09-24-2023 14:00-0400 Mean blood pressure 88 mm[Hg] José Luis Moee [facility] 09-24-2023 14:00-0400 SaO2% (BldA) [Mass fraction] 95 % José Luis Moee [facility] 09-24-2023 14:00-0400 Systolic blood pressure 126 mm[Hg] José Luis Moee [facility] 09-24-2023 12:58-0400 Body temperature 98.06 [degF] José Luis Moee [facility] 09-24-2023 12:58-0400 Diastolic blood pressure 82 mm[Hg] José Luis Moee [facility] 09-24-2023 12:58-0400 Heart rate 89 /min José Luis Moee [facility] 09-24-2023 12:58-0400 Respiratory rate 18 /min José Luis Moee [facility] 09-24-2023 12:58-0400 SaO2% (BldA) [Mass fraction] 96 % José Luis Moee [facility] 09-24-2023 12:58-0400 Systolic blood pressure 125 mm[Hg] José Luis Resendiz [facility] 04-04-2022 15:50-0500 Diastolic blood pressure 70 mm[Hg] Tiffani Morales MD Work Phone: [facility] 04-04-2022 15:50-0500 Heart rate 73 /min Tiffani Morales MD Work Phone: [facility] 04-04-2022 15:50-0500 Respiratory rate 16 /min Tiffani Morales MD Work Phone: [facility] 04-04-2022 15:50-0500 SaO2% (BldA) [Mass fraction] 97 % Tiffani Morales MD Work Phone: [facility] 04-04-2022 15:50-0500 Systolic blood pressure 117 mm[Hg] Tiffani Morales MD Work Phone: [facility] 04-04-2022 15:26-0500 Body temperature 97.2 [degF] Tiffani Morales MD Work Phone: [facility] 04-04-2022 12:51-0500 Body height 172.7 cm Tiffani Morales MD Work Phone: [facility] 04-04-2022 12:51-0500 Body weight 45.81 kg Tiffani Morales MD Work Phone: [facility] 01-01-2022 16:50-0400 Diastolic blood pressure 69 mm[Hg] Tiffani Morales MD Work Phone: [facility] 01-01-2022 16:50-0400 Heart rate 69 /min Tiffani Morales MD Work Phone: [facility] 01-01-2022 16:50-0400 Respiratory rate 16 /min Tiffani Morales MD Work Phone: [facility] 01-01-2022 16:50-0400 SaO2% (BldA) [Mass fraction] 95 % Tiffani Morales MD Work Phone: [facility] 01-01-2022 16:50-0400 Systolic blood pressure 110 mm[Hg] Tiffani Morales MD Work Phone: [facility] 01-01-2022 16:33-0400 Body temperature 98.1 [degF] Tiffani Morales MD Work Phone: [facility] 01-01-2022 15:39-0400 Body height 172.7 cm Tiffani Morales MD Work Phone: [facility] 01-01-2022 15:39-0400 Body weight 45.81 kg Tiffani Morales MD Work Phone: [facility] 06-20-2021 13:37-0400 Body height 174 cm Robb Evans MD Work Phone: [facility] 06-20-2021 13:37-0400 Body mass index (BMI) [Ratio] 17.98 kg/m2 Robb Evans MD Work Phone: [facility] 06-20-2021 13:37-0400 Body weight 54.43 kg Robb Evans MD Work Phone: [facility] 06-20-2021 13:37-0400 Diastolic blood pressure 69 mm[Hg] Robb Evans MD Work Phone: [facility] 06-20-2021 13:37-0400 Heart rate 77 /min Robb Evans MD Work Phone: [facility] 06-20-2021 13:37-0400 Respiratory rate 16 /min Robb Evans MD Work Phone: [facility] 06-20-2021 13:37-0400 SaO2% (BldA) [Mass fraction] 95 % Robb Evans MD Work Phone: [facility] 06-20-2021 13:37-0400 Systolic blood pressure 102 mm[Hg] Robb Evans MD Work Phone: [facility] 07-18-2020 14:10-0400 Body height 174 cm Upender Gehlot MD Work Phone: [facility] 07-18-2020 14:10-0400 Body mass index (BMI) [Ratio] 17.38 kg/m2 Robb Evans MD Work Phone: [facility] 07-18-2020 14:10-0400 Body weight 52.62 kg Robb Evans MD Work Phone: [facility] 07-18-2020 14:10-0400 Diastolic blood pressure 68 mm[Hg] Robb Evans MD Work Phone: [facility] 07-18-2020 14:10-0400 Heart rate 84 /min Robb Evans MD Work Phone: [facility] 07-18-2020 14:10-0400 Respiratory rate 16 /min Robb Evans MD Work Phone: [facility] 07-18-2020 14:10-0400 SaO2% (BldA) [Mass fraction] 96 % Robb Evans MD Work Phone: [facility] 07-18-2020 14:10-0400 Systolic blood pressure 94 mm[Hg] Robb Evans MD Work Phone: [facility] Encounters Encounter Date Encounter Type Care Provider Facility Start: 03-23-2024 End: 03-23-2024 ambulatory Sandoval Rae Facility:[facility] Start: 03-23-2024 End: 03-23-2024 Patient encounter procedure Sandoval Rae [facility] Start: 03-15-2024 End: 03-15-2024 ambulatory Eligio Noe Facility:[facility] Start: 02-25-2024 End: 02-25-2024 ambulatory Sandoval Rae Facility:[facility] Start: 02-25-2024 End: 02-25-2024 Patient encounter procedure Sandoval Rae [facility] Start: 02-21-2024 End: 02-21-2024 [facility] Start: 02-21-2024 End: 02-21-2024 Patient encounter procedure Mohamad A. Mouchli [facility] Start: 02-18-2024 End: 02-18-2024 ambulatory Lala L Carolee Facility:[facility] Start: 02-05-2024 End: 02-05-2024 ambulatory [facility] Start: 02-05-2024 End: 02-05-2024 Patient encounter procedure Mohamad A. Mouchli [facility] Start: 01-27-2024 End: 01-27-2024 ambulatory Mohamad A. Mouchli Facility:[facility] Start: 01-27-2024 End: 01-27-2024 Patient encounter procedure Mohamad A. Mouchli [facility] Start: 01-16-2024 End: 01-16-2024 ambulatory [facility] Start: 01-16-2024 End: 01-16-2024 Patient encounter procedure Mohamad A. Mouchli [facility] Start: 11-26-2023 End: 11-26-2023 ambulatory Lala L Carolee Facility:[facility] Start: 10-03-2023 End: 10-03-2023 ambulatory Lala L Carolee Facility:[facility] Start: 09-27-2023 ambulatory CHANCE ZACH Facility:[facility] Start: 09-24-2023 End: 09-24-2023 Emergency department patient visit José Luis Resendiz [facility] Start: 05-08-2022 Telephone encounter Tiffani valencia MD Work Phone: Gastroenterology Comment on above: Patient Question Start: 05-07-2022 End: 05-08-2022 ambulatory IRINA SEGURA Facility:[facility] Start: 04-24-2022 End: 04-24-2022 ambulatory CRISTINA ALEE IQBAL Facility:[facility] Start: 04-24-2022 End: 04-24-2022 Nutrition therapy Tiffani Morales MD Work Phone: Gastroenterology Comment on above: Severe malnutrition (HCC) (Primary Dx) Start: 04-24-2022 End: 04-24-2022 Telemedicine consultation with patient Tiffani Morales MD Work Phone: [facility] Start: 04-20-2022 Refill Robb Evans MD Work Phone: [facility] Start: 04-12-2022 Refill Saúl SHORT [facility] Comment on above: Generalized anxiety disorder Start: 04-05-2022 Telephone encounter Tiffani valencia MD Work Phone: Gastroenterology Comment on above: Refill Request Start: 04-04-2022 End: 04-04-2022 ambulatory FREDERICK CHAVES Facility:[facility] Start: 04-04-2022 End: 04-04-2022 Subsequent hospital visit by physician Tiffani Morales MD Work Phone: Gastroenterology Comment on above: 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] Start: 03-31-2022 End: 04-01-[address] DOCTOR BERMEO Facility:[facility] Start: 03-28-2022 End: 03-29-2022 ambulatory DR BRITNI SIMPSON Facility:[facility] Start: 03-28-2022 Telephone encounter Eduardo Harrington RNaircraft maintenance technician Comment on above: Appointment Confirma tion Start: 03-20-2022 Refill Saúl SHORT [facility] Start: 03-14-2022 Refill Anastasiya Steviedomi PA-C Work Phone: Gastroenterology Comment on above: Refill Request Start: 03-09-2022 Refill Gokul Maurilio Alexis [facility] Comment on above: Generalized anxiety disorder Start: 03-01-2022 End: 03-01-2022 ambulatory CRISTINA [facility] Facility:[facility] Start: 03-01-2022 End: 03-01-2022 Nutrition therapy Tiffani Morlaes MD Work Phone: Gastroenterology Comment on above: Severe protein-calor ie malnutrition (HCC) (Primary Dx); 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); Weight loss; Severe malnutrition (HCC) Start: 03-01-2022 End: 03-01-2022 Telemedicine consultation with patient Tiffani Morales MD Work Phone: [facility] Start: 02-07-2022 ambulatory Yan wood MD Work Phone: Gastroenterology Start: 02-07-2022 Patient encounter procedure Yan Garcia Jr., MD Work Phone: [facility] Start: 02-07-2022 Refill Anastasiya Ovidioi PA-C Work Phone: Gastroenterology Comment on above: Refill Request Start: 02-06-2022 End: 02-07-2022 ambulatory CRISTINA [facility] Facility:[facility] Start: 02-05-2022 End: 02-05-2022 ambulatory CRISTINA [facility] Facility:[facility] Start: 01-29-2022 ambulatory Dolores Lopez RN Gastr oenterology Start: 01-29-2022 Patient encounter procedure Dolores Lopez RN [facility] Start: 01-29-2022 End: 01-29-2022 Subsequent hospital visit by physician Capsule Work Phone: Gastroenterology Comment on above: Arrived Start: 01-17-2022 ambulatory Roshni Reyes ty:Thuy ELLIOTT Start: 01-16-2022 Refill Gokul Maurilio CAMPBELL [facility] Start: 01-05-2022 Telephone encounter [...] 01-01-2022 End: 01-01-2022 ambulatory KIRSTEN Srini DALTON Facility:[facility] Start: 01-01-2022 End: 01-01-2022 Subsequent hospital visit by physician Tiffani Morales MD Work Phone: Gastroenterology Comment on above: Nausea and vomiting, unspecified vomiting type [R11.2] Start: 12-25-2021 Telephone encounter Rima Gerard RNaircraft maintenance technician Comment on above: Appointment Start: 12-19-2021 End: 12-19-2021 ambulatory CRISTINA [facility] Start: 12-15-2021 End: 12-16-2021 ambulatory Anastasiya Mosqueda PA-C Work Phone: Gastroenterology Comment on above: Nausea and vomiting, unspecified vomiting type (Primary Dx); Left upper quadrant abdominal pain; Weight loss Start: 12-15-2021 End: 12-15-2021 Telemedicine consultation with patient Anastasiya Aceveschandler PA-C Work Phone: [facility] Start: 12-14-2021 End: 12-14-2021 ambulatory ANASTASIYA MOSQUEDA Facility:[facility] Start: 12-14-2021 End: 12-14-2021 Patient encounter procedure Anastasiya Jaylin PA-C Work Phone: Gastroenterology Comment on above: APPOINTMENT CANCELLE D (Primary Dx) Start: 12-14-2021 End: 12-14-2021 Telemedicine consultation with patient Anastasiya Mosqueda JEFFDeyaOsbaldo Work Phone: [facility] Start: 12-13-2021 Telephone encounter Anastasiya kimbrough JEFFDeyaOsbaldo Work Phone: Gastroenterology Comment on above: Appointment Start: 12-11-2021 End: 12-11-2021 ambulatory GRAIN WAFER MACHINE OPERATOR CRISTINA IQBAL Facility:[facility] Start: 12-03-2021 End: 12-03-2021 Emergency department patient visit Vipin Pina Facility:[facility] Start: 11-14-2021 End: 11-14-2021 ambulatory GRAIN WAFER MACHINE OPERATOR CRISTINA ROGER Facility:[facility] Start: 11-09-2021 End: 11-09-2021 ambulatory GRAIN WAFER MACHINE OPERATOR CRISTINA ROGER Facility:[facility] Start: 10-04-2021 End: 10-04-2021 ambulatory GRAIN WAFER MACHINE OPERATOR CRISTINA IQBAL Facility:[facility] Start: 10-03-2021 Refill Robb Evans MD Work Phone: [facility] Start: 09-27-2021 Documentation procedure Zuleyma Evans MD Work Phone: [facility] Start: 09-25-2021 End: 09-26-2021 ambulatory ROBB EVANS Facility:[facility] Start: 09-19-2021 End: 09-19-2021 [facility] Start: 09-19-2021 End: 09-19-2021 Office outpatient visit 25 minutes Robb Evans MD Work Phone: [facility] Comment on above: Bipolar 1 disorder, mixed, mild (HCC) (Primary Dx); Generalized anxiety disorder; Long-term use of high-risk medication Start: 09-15-2021 Refill Fartun Mack LPN [facility] Comment on above: Generalized anxiety disorder Start: 06-20-2021 End: 06-20-2021 [facility]ulatory [facility] Start: 06-20-2021 End: 06-20-2021 Office outpatient visit 25 minutes Robb Evans MD Work Phone: [facility] Comment on above: Generalized anxiety disorder (Primary Dx); Bipolar 1 disorder, mixed, mild (HCC); Long-term use of high-risk medication; Post traumatic stress disorder (PTSD) Start: 04-03-2021 Refill [facility] Maurilio ADRIAN [facility] Comment on above: Generalized anxiety disorder Start: 03-01-2021 End: 03-01-2021 Phys/qhp telephone evaluation 11-20 min Upobdulio Evans MD Work Phone: [facility] Comment on above: Bipolar 1 disorder, mixed, mild (HCC) (Primary Dx); Generalized anxiety disorder; Long-term use of high-risk medication Start: 03-01-2021 End: 03-01-2021 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); Generalized anxiety disorder; Long-term use of high-risk medication Start: 07-18-2020 End: 07-18-2020 Office outpatient visit 25 minutes Robb Evans MD Work Phone: [facility] Comment on above: [...] H/O: surgery History of abdom inal surgery Sandvoal Rae History of cholecystectomy S/P cholecyste ctomy Sandoval Rae Oral surgery (qualifier value) José Luis Resendiz Total hysterectomy José Luis nolasco Plan of Treatment Date Care Activity Detail Author Start: 05-08-2029 Screening for malign ant neoplasm of colon [facility] Start: 04-27-2022 End: 04-27-2022 Patient encounter procedure 04/27/2022 Office Visit Psychiatry Robb Evans MD [address] [facility] [address] [id number] [facility] Start: 03-26-2022 End: 03-26-2022 Patient encounter procedure 03/26/2022 Office Visit Robb Patton MD [address] [place] [phone] [facility] Start: 03-18-2022 DEPRESSION ASSESSMENT DEPRESSION ASS ESSMENT [facility] Start: 03-02-2022 End: 03-01-2023 25-hydroxyvitamin D3 [Mass/volume] in Serum or Plasma VITAMIN D 25 HYDROXY Lab Routine Severe protein-calorie malnutrition (HCC) Expected: 03/02/2022 (Approximate), Expires: 03/01/2023 [facility] Work Phone: Comment on above: Expected: 03/02/2022 (Approximate), Expires: 03/01/2023 Start: 03-02-2022 End: 03-01-2023 Alpha tocopherol [Mass/volume] in Serum or Plasma VITAMIN E/TOCOPHEROL Lab Routine Severe protein-calorie malnutrition (HCC) Expected: 03/02/2022 (Approximate), Expires: 03/01/2023 [facility] Work Phone: Comment on above: Expected: 03/02/2022 (Approximate), Expires: 03/01/2023 Start: 03-02-2022 End: 03-01-2023 C reactive protein [Mass/volume] in Serum or Plasma C-REACTIVE PROTEIN (CRP) Lab Routine Severe protein-calorie malnutrition (HCC) Expected: 03/02/2022 (Approximate), Expires: 03/01/2023 [facility] Work Phone: Comment on above: Expected: 03/02/2022 (Approximate), Expires: 03/01/2023 Start: 03-02-2022 End: 03-01-2023 CBC W Auto Differential panel - Blood CBC + DIFF Lab Routine Severe protein-calorie malnutrition (HCC) Expected: 03/02/2022 (Approximate), Expires: 03/01/2023 [facility] Work Phone: Comment on above: Expected: 03/02/2022 (Approximate), Expires: 03/01/2023 Start: 03-02-2022 End: 03-01-2023 Cobalamin (Vitamin B12) [Mass/volume] in Serum or Plasma VITAMIN B12 BLOOD Lab Routine Severe protein-calorie malnutrition (HCC) Expected: 03/02/2022 (Approximate), Expires: 03/01/2023 [facility] Work Phone: Comment on above: Expected: 03/02/2022 (Approximate), Expires: 03/01/2023 Start: 03-02-2022 End: 03-01-2023 Comprehensive metabolic 2000 panel - Serum or Plasma COMP METABOLIC PANEL Lab Routine Severe protein-calorie malnutrition (HCC) Expected: 03/02/2022 (Approximate), Expires: 03/01/2023 [facility] Work Phone: Comment on above: Expected: 03/02/2022 (Approximate), Expires: 03/01/2023 Start: 03-02-2022 End: 03-01-2023 COPPER BLOOD COPPER BLOOD Lab Routine Severe protein-calorie malnutrition (HCC) Expected: 03/02/2022 (Approximate), Expires: 03/01/2023 [facility] Work Phone: Comment on above: Expected: 03/02/2022 (Approximate), Expires: 03/01/2023 Start: 03-02-2022 End: 03-01-2023 FATTY ACIDS PROFILE, ESSENTIAL FATTY ACIDS PROFILE, ESSENTIAL Lab Routine Severe protein-calorie malnutrition (HCC) Expected: 03/02/2022 (Approximate), Expires: 03/01/2023 [facility] Work Phone: Comment on above: Expected: 03/02/2022 (Approximate), Expires: 03/01/2023 Start: 03-02-2022 End: 03-01-2023 Ferritin [Mass/volume] in Serum or Plasma FERRITIN BLD Lab Routine Severe protein-calorie malnutrition (HCC) Expected: 03/02/2022 (Approximate), Expires: 03/01/2023 [facility] Work Phone: Comment on above: Expected: 03/02/2022 (Approximate), Expires: 03/01/2023 Start: 03-02-2022 End: 03-01-2023 Iron and Iron binding capacity panel - Serum or Plasma IRON + TIBC Lab Routine Severe protein-calorie malnutrition (HCC) Expected: 03/02/2022 (Approximate), Expires: 03/01/2023 [facility] Work Phone: Comment on above: Expected: 03/02/2022 (Approximate), Expires: 03/01/2023 Start: 03-02-2022 End: 03-01-2023 Magnesium [Mass/volume] in Serum or Plasma MAGNESIUM BLD Lab Routine Severe protein-calorie malnutrition (HCC) Expected: 03/02/2022 (Approximate), Expires: 03/01/2023 [facility] Work Phone: Comment on above: Expected: 03/02/2022 (Approximate), Expires: 03/01/2023 Start: 03-02-2022 End: 03-01-2023 Methylmalonate [Moles/volume] in Serum or Plasma METHYLMALONIC ACID Lab Routine Severe protein-calorie malnutrition (HCC) Expected: 03/02/2022 (Approximate), Expires: 03/01/2023 [facility] Work Phone: Comment on above: Expected: 03/02/2022 (Approximate), Expires: 03/01/2023 Start: 03-02-2022 End: 03-01-2023 Phosphate [Mass/volume] in Serum or Plasma PHOSPHORUS INORGANIC Lab Routine Severe protein-calorie malnutrition (HCC) Expected: 03/02/2022 (Approximate), Expires: 03/01/2023 [facility] Work Phone: Comment on above: Expected: 03/02/2022 (Approximate), Expires: 03/01/2023 Start: 03-02-2022 End: 03-01-2023 PT panel - Platelet poor plasma by Coagulation assay PROTHROMBIN TIME/PT Lab Routine Severe protein-calorie malnutrition (HCC) Expected: 03/02/2022 (Approximate), Expires: 03/01/2023 [facility] Work Phone: Comment on above: Expected: 03/02/2022 (Approximate), Expires: 03/01/2023 Start: 03-02-2022 End: 03-01-2023 RBC FOLATE RBC FOLATE Lab Routine Severe protein-calorie malnutrition (HCC) Expected: 03/02/2022 (Approximate), Expires: 03/01/2023 [facility] Work Phone: Comment on above: Expected: 03/02/2022 (Approximate), Expires: 03/01/2023 Start: 03-02-2022 End: 03-01-2023 Retinol [Mass/volume] in Serum or Plasma VITAMIN A/RETINOL Lab Routine Severe protein-calorie malnutrition (HCC) Expected: 03/02/2022 (Approximate), Expires: 03/01/2023 [facility] Work Phone: Comment on above: Expected: 03/02/2022 (Approximate), Expires: 03/01/2023 Start: 03-02-2022 End: 03-01-2023 Selenium [Mass/volume] in Blood SELENIUM BLOOD Lab Routine Severe protein-calorie malnutrition (HCC) Expected: 03/02/2022 (Approximate), Expires: 03/01/2023 [facility] Work Phone: Comment on above: Expected: 03/02/2022 (Approximate), Expires: 03/01/2023 Start: 03-02-2022 End: 03-01-2023 Triglyceride [Mass/volume] in Serum or Plasma TRIGLYCERIDES BLD Lab Routine Severe protein-calorie malnutrition (HCC) Expected: 03/02/2022 (Approximate), Expires: 03/01/2023 [facility] Work Phone: Comment on above: Expected: 03/02/2022 (Approximate), Expires: 03/01/2023 Start: 03-02-2022 End: 03-01-2023 Zinc [Mass/volume] in Serum or Plasma ZINC BLD Lab Routine Severe protein-calorie malnutrition (HCC) Expected: 03/02/2022 (Approximate), Expires: 03/01/2023 [facility] Work Phone: Comment on above: Expected: 03/02/2022 (Approximate), Expires: 03/01/2023 Start: 12-19-2021 End: 12-19-2021 Patient encounter procedure 12/19/2021 Office Visit Psychiatry Robb Evans MD [address] [place] [phone] [facility] Start: 11-16-2021 Influenza vaccination [facility] Start: 09-19-2021 End: 09-19-2021 Patient encounter procedure 09/19/2021 Office Visit Psychiatry Robb Evans MD [address] [facility] [address] [place] [phone] [facility] Start: 09-15-2021 End: 09-15-2021 Patient encounter procedure 09/15/2021 Office Visit Psychiatry Robb Evans MD [address] [facility] [address] [place] [phone] [facility] Start: 05-30-2021 End: 05-30-2021 Patient encounter procedure 05/30/2021 Office Visit Psychiatry Robb Evans MD [address] [facility] [address] [place] [id number] [facility] Start: 03-18-2021 DEPRESSION ASSESSMENT DEPRESSION ASS [facility] Start: 02-17-2021 End: 02-17-2021 Patient encounter procedure 02/17/2021 Office Visit Psychiatry Robb Evans MD [address] [facility] [address] [place] [phone] [facility] Start: 02-03-2021 End: 02-03-2021 Patient encounter procedure 02/03/2021 Office Visit Robb Patton MD [address] [facility] [address] [place] [phone] [facility] Start: 11-16-2020 Influenza vaccination [facility] Start: 10-28-2020 End: 10-28-2020 Patient encounter procedure 10/28/2020 Office Visit Psychiatry Robb Evans MD [address] [place] [address] [phone] [facility] Start: 2020 Administration of he rpes zoster vaccine Zoster Vaccines (1 of 2) [facility] Start: 2020 Screening for malign ant neoplasm of colon [facility] Start: 2020 SHINGRIX VACCINE (1 of 2) SHINGRIX VACCINE (1 of 2) [facility] Start: 08-22-2020 End: 08-22-2020 Telemedicine consultation with patient 08/22/2020 Telemedicine Psychiatry Robb Evans MD [address] [place] [address] [phone] [facility] Start: 10-07-2015 COLOGUARD (FIT-DNA) COLOGUARD (FIT-D NA) [facility] Start: 10-07-2015 Colonoscopy COLONOSCOPY [facility] Start: 10-07-2015 COLORECTAL CANCER SCREENING COLORECTAL CANCER SCREENING [facility] Start: 10-07-[address] COLONOGRAPHY [facility] Start: 10-07-2015 DIABETES SCREEN DIABETES SCREEN [facility] Start: 10-07-2015 FECAL OCCULT BLOOD FECAL OCCULT BLOO D [facility] Start: 10-07-2015 LIPID SCREEN LIPID SCREEN [facility] Start: 10-07-2015 SIGMOIDOSCOPY SIGMOIDOSCOPY [facility] Start: 01-02-2015 PAP TESTING PAP TESTING [facility] Start: 2010 Mammography MAMMOGRAM [facility] Start: 2010 Screening for malign ant neoplasm of breast Mammogram [facility] Start: 2010 Screening mammography Mammogram [facility] Start: 2000 HPV TESTING HPV TESTING [facility] Start: 1989 Urine microalbumin profile DTAP,TDAP,TD (1 - Tdap) [facility] Start: 1988 Hepatitis C screening Hepatitis C Sc reening [facility] Start: 1988 HIV SCREENING HIV SCREENING [facility] Start: 1986 COVID-19 Vaccine (1) COVID-19 Vaccin e (1) [facility] Start: 1985 HIV screening HIV Screening [facility] Start: 1982 COVID-19 Vaccine (1) COVID-19 Vaccin e (1) [facility] Start: 1976 PNEUMOCOCCAL (1 - PCV) PNEUMOCOCCAL (1 - PCV) [facility] Start: 1976 Pneumococcal Vaccine : Ped or At-Risk (1 - PCV) Pneumococcal Vaccine: Ped or At-Risk (1 - PCV) [facility] Start: 1976 Pneumococcal Vaccine : Ped or At-Risk (1 of 2 - PPSV23) Pneumococcal Vaccine: Ped or At-Risk (1 of 2 - PPSV23) [facility] Start: 1976 Pneumococcal Vaccine : Ped or At-Risk (1 of 4 - PCV13) Pneumococcal Vaccine: Ped or At-Risk (1 of 4 - PCV13) [facility] Start: 10-07-1975 COVID-19 Vaccine (1) COVID-19 Vaccin e (1) [facility] Start: 1973 History and physical examination, annual for health maintenance Wellness Visit [facility] Start: 04-08-1971 COVID-19 Vaccine (#1) COVID-19 Vacci ne (#1) [facility] Start: 1970 HEPATITIS B (1 of 3 - 3-dose series) HEPATITIS B (1 of 3 - 3-dose series) [facility] Start: 1970 Screening for malign ant neoplasm of cervix Pap Smear [facility] Start: 1970 Screening for malign ant neoplasm of colon [facility] Start: 1970 Screening mammography Mammogram [facility] Start: 1970 Tetanus vaccination Tetanus: Every 1 0yrs [facility] End: 09-19-2022 Comprehensive metabolic 2000 panel - Serum or Plasma Comprehensive Metabolic Panel Lab Routine Generalized anxiety disorder Long-term use of high-risk medication Bipolar 1 disorder, mixed, mild (HCC) 1 Occurrences starting 09/19/2021 until 09/19/2022 [facility] Comment on above: 1 Occurrences starti ng 09/19/2021 until 09/19/2022 End: 04-01-2023 Ct abdomen & pelvis w/contrast material CT ENTEROGRAPHY W IVCON Radiology Routine 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) Weight loss 1 Occurrences starting 03/02/2022 until 04/01/2023 [facility] Work Phone: Comment on above: 1 Occurrences starti ng 03/02/2022 until 04/01/2023 End: 12-15-2022 EGD DIAGNOSTIC EGD DIAGNOSTIC Endoscopy Routine Nausea and vomiting, unspecified vomiting type Left upper quadrant abdominal pain 1 Occurrences starting 12/15/2021 until 12/15/2022 [facility] Work Phone: Comment on above: 1 Occurrences starti ng 12/15/2021 until 12/15/2022 End: 03-02-2023 ENTEROSCOPY ENTEROSCOPY Endoscopy Routine 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) 1 Occurrences starting 03/02/2022 until 03/02/2023 [facility] Work Phone: Comment on above: 1 Occurrences starti ng 03/02/2022 until 03/02/2023 FAT, FECAL QUAL FAT, FECAL QUAL Lab Routine Weight loss Ordered: 01/05/2022 [facility] Work Phone: Comment on above: Ordered: 01/05/2022 End: 02-04-2023 Gastric emptying imaging study NM GASTRIC EMPTYING SOLID Radiology Routine Nausea 1 Occurrences starting 01/05/2022 until 02/04/2023 [facility] Work Phone: Comment on above: 1 Occurrences starti ng 01/05/2022 until 02/04/2023 End: 01-05-2023 Gi imag intraluminal esophagus-ileum w/i&r CAPSULE ENDOSCOPY SMALL BOWEL Endoscopy Routine Small bowel polyp 1 Occurrences starting 01/05/2022 until 01/05/2023 [facility] Work Phone: Comment on above: 1 Occurrences starti ng 01/05/2022 until 01/05/2023 End: 09-19-2022 Lipid 1996 panel - Serum or Plasma Lipid Panel Lab Routine Generalized anxiety disorder Long-term use of high-risk medication Bipolar 1 disorder, mixed, mild (HCC) 1 Occurrences starting 09/19/2021 until 09/19/2022 [facility] Comment on above: 1 Occurrences starti ng 09/19/2021 until 09/19/2022 PANC ELASTASE, FECAL PANC ELASTA SE, FECAL Lab Routine Weight loss Ordered: 01/05/2022 [facility] Work Phone: Comment on above: Ordered: 01/05/2022 End: 09-19-2022 Prolactin [Mass/volume] in Serum or Plasma Prolactin Lab Routine Generalized anxiety disorder Long-term use of high-risk medication Bipolar 1 disorder, mixed, mild (HCC) 1 Occurrences starting 09/19/2021 until 09/19/2022 [facility] Work Phone: Comment on above: 1 Occurrences starti ng 09/19/2021 until 09/19/2022 End: 04-01-2023 Radiologic exam chest 2 views XR CHEST 2V FRONTAL/LAT Radiology Routine Weight loss 1 Occurrences starting 03/02/2022 until 04/01/2023 [facility] Work Phone: Comment on above: 1 Occurrences starti ng 03/02/2022 until 04/01/2023 SURGICAL PATHOLOGY [facility] Work Phone: Comment on above: Release Upon Orderin g for 1 Occurrences starting 01/01/2022, 1 completed SURGICAL PATHOLOGY [facility] Work Phone: Comment on above: Release Upon Orderin g for 1 Occurrences starting 04/04/2022, [facility] Immunizations Immunization Date Immunization Notes Care Provider Dany ordoñez 10-10-2022 tetanus toxoid, reduced diphtheria toxoid, and acellular pertussis vaccine, adsorbed Sandoval Rae [facility] Rashaun NEGATED: Highlighted row has not occurred!01-16-2024 influenza virus vaccine, unspecified formulation Sandoval Rae [facility] NEGATED: Highlighted row has not occurred!05-24-2020 influenza virus vaccine, unspecified formulation José Luis Resendiz [facility] Payers Date Payer Category Payer Self-pay 2017 Medicaid [id number] 2017 Medicaid [id number] 1970 Unknown [id number] 2.16.8 [id number] 1970 Unknown [id number] 2.16.8 40.1.815715.3.579.2.727 1970 Unknown [id number] 2.16. 840.1.993633.3.579.2.903 1970 Unknown [id number] 2.16. 840.1.249004.3.579.2.903 1970 Unknown [id number] 2.16. 840.1.712208.3.579.2.903 1970 Unknown [id number] 2.16. 840.1.477824.3.579.2.903 1970 Unknown [id number] 2.16.84 0.1.861002.3.579.2.593 1970 Unknown [id number] 2.16.84 0.1.751650.3.579.2.593 1970 Unknown [id number] 2.16.84 0.1.442540.3.579.2.593 1970 Unknown [id number] 2.16.84 0.1.338123.3.579.2.593 1970 Unknown [id number] 2.16.84 0.1.759390.3.579.2.593 1970 Unknown [id number] 2.16.84 0.1.896502.3.579.2.593 1970 Unknown [id number] 2.16.84 0.1.181799.3.579.2.593 1970 Unknown [id number] 2.16.84 0.1.104257.3.579.2.593 1970 Unknown [id number] 2.16.8 40.1.251937.3.579.2.727 1970 Unknown [id number] 2.16.8 40.1.689061.3.579.2.727 1970 Unknown [id number] 2.16.8 40.1.231130.3.579.2.727 1970 Unknown [id number] 2.16.8 40.1.906047.3.579.2.727 1970 Unknown [id number] 2.16.8 40.1.166433.3.579.2.727 1970 Unknown [id number] 2.16.8 40.1.000003.3.579.2.727 1970 Unknown [id number] 2.16.8 [id number] 1970 Unknown [id number] [id number] 1970 Unknown [id number] [id number] 1959 Unknown [id number] 1959 Unknown [id number] Unknown [id number] Social History Date Type Detail Facility Start: 07-18-2020 End: 01-01-2022 Tobacco smoking status NEIS Current every day smoker [facility] Start: 07-18-2020 End: 01-01-2022 Tobacco use and exposure Never used [facility] Start: 07-18-2020 End: 04-04-2022 Alcohol intake Ex-drinker (finding) [facility] Start: 1970 Sex Assigned At Not on file O [facility] Start: 09-09-2021 End: 02-05-2022 Exposure to SARS-CoV-2 (event) Not sure [facility] Start: 12-03-2021 End: 12-14-2021 Exposure to SARS-CoV-2 (event) Unable to assess [facility] Start: 06-10-2021 End: 06-20-2021 Exposure to SARS-CoV-2 (event) Yes [facility] Start: 1970 [facility] History of tobacco use Cigarette Smoker [facility] Start: 01-01-2022 Cigarettes smoked current (pack per day) - Reported 0.5 [facility] History of tobacco use Passive smoker [facility] Start: 09-24-2023 Tobacco smoking status Ex-smoker (fi nding) [facility] Comment on above: quit smoking 2023 Sex Assigned At Female [facility] Start: 01-16-2024 End: 03-23-2024 Tobacco smoking status Light tobacco smoker (finding) [facility] Tobacco smoking status Never [facility] Functional Status Date Assessment Result Facility 03-23-2024 Functional Status N/A [facility] 02-25-2024 Functional Status N/A [facility] 02-21-2024 Functional Status N/A [facility] 01-16-2024 Functional Status N/A [facility] 09-24-2023 Functional Status N/A [facility] Clinical Notes 07-20-2020 to 02-25-2024 Note Date & Type Note Facility 02-25-2024 Evaluation + Plan note Extrac kitty from: Title:ANES Post-operative Note---General Author: Dakota Rivas MD Date:02/25/24 Plan Transfer/Discharge: Transfer/Discharge Discharge when meets criteria ( To home ). Extracted from: Title:ANES Pre-operative Note 2022 Author:Dakota Rhoades Date:02/25/24 Plan [employer] [employer]hesi[employer] (ASA) physical status classification: Class III. Anesthetic Preoperative Plan: Anesthesia General. Future Scheduled Tests Laboratory* Giardia lamblia, Direct Detection EIA 11/26/23 * O & P Exam, Routine 11/26/23 * Rotavirus Ab 11/26/23 * Clostridium Difficile PCR 11/26/23 Radiology* CT Abdomen/Pelvis w/contrast (enterography) 01/30/24 * XR Small Bowel w/ Serial Films 02/10/24 [facility] 12-10-2024 Hospital Discharge instructions Patient Education 02/25/2024 [...] hard liquor (44 mL). General instructions Take xmjm-sqy-rvcgpww and prescription medicines only as told by [...] provider. Document Revised: 06/22/2020 Document Reviewed: 06/22/2020 [employer] Patient Education 2023 [employer]. 02/25/2024 11:02:55 Hiatal Hernia Hiatal Hernia A [...] reduce GERD symptoms. Medicines. These may include: ?Thmj-rgu-omcwhvk antacids. ?Medicines that make your stomach empty [...] may include: ?Fatty foods, like fried foods. ?[place] fruits, like oranges or lemon. ?Other foods [...] Do not drink alcohol. General instructions Take drtp-uzn-kfgywmg and prescription medicines only as told by [...] provider. Document Revised: 05/01/2022 Document Reviewed: 05/01/2022 [employer] Patient Education 2023 Boost[employer]. 02/25/2024 11:02:51 Gastritis, Adult, Ftay-of-Fjny Gastritis, Adult Gastritis is irritation and swelling [...] Follow these instructions at home: Medicines Take fyjt-bgw-qxlaout and prescription medicines only as told by [...] right away. Call your local emergency services ([address] [place] Do not wait to see [...] provider. Document Revised: 07/08/2021 Document Reviewed: 07/08/2021 [employer] Patient Education 2023 Boosted [employer]. 02/25/2024 11:02:46 Endoscopy, Care After Procedure [facility] Endoscopy Care After Procedure Please read the instructions outlined below and refer to this sheet in the next few weeks. These discharge instructions provide you with general information on [facility] Your doctor may also give you specific [...] Document Re-Released: 08/26/2006 ExitCare Patient Information 2009 e-contratos. [facility] [id number] NoteProgress Note-Physician Patient: SAI PINEDA Age: 53 years Sex: Female : 1970 Associated Diagnoses: None Author: Dakota Rivas MD Postoperative Information Postoperative disposition: Postoperative disposition: To PACU. Optimetrix number: Optimetrix number [id number]. Anesthetic utilized: General. Health Status Allergies: Allergic [...] Discharge when meets criteria ( To home ).[facility]:Result Comment: Electronically Signed By: Dakota [...] blood. Document Released: 10/16/2004 Document Re-Released: 08/26/2006 [facility] Patient Information ???2009 e-contratos. Gastroenterology Hiatal Hernia A hiatal hernia occurs [...] symptoms. ??? Medicines. These may include: ? Rdhx-srb-zjewqrx antacids. ? Medicines that make your stomach [...] your health care provide (more content not included)...[facility]12-10-2024 NoteProgress Note-Physician Patient: SAI PINEDA Age: 53 [...] day(s), # 56 tab(s), Refills(s) 0, Pharmacy: [facility]/pharmacy #[id number], 169, cm, 02/21/24 8:47:00 EST, Height/Length Dosing, 62.2, kg, 02/21/24 8:47:00 EST, Weight Dosing Questran 4 g/9 g oral powder: = 1 packet(s), Oral, BID, # 60 EA, Refills(s) 2, Pharmacy: [facility]/pharmacy #[id number], 169, cm, 01/16/24 10:14:00 EDT, Height/Length Dosing, 63.9, kg, 01/16/24 10:14:00 EDT, Weight Dosing Spiriva Respimat 60 ACT 2.5 mcg/inh inhalation aerosol: = 2 inh, Inhalation, Daily, # 4 gm, Refills(s) 11, [id number] 169.7, cm, 11/26/23 15:32:00 EDT, Height/Length Dosing, 62.1, kg, 11/26/23 15:32:00 EDT, Weight Dosing Zofran 4 mg Tab: 4 mg = 1 tab(s), Oral, q8hr, PRN Nausea, # 10 tab(s), Refills(s) 0, [id number], 173, cm, 04/26/20 13:07:00 EST, Height/Length Dosing, 52.8, kg, 04/26/20 13:07:00 EST, Weight Dosing Zofran ODT 4 mg Tab-Dis: 4 mg = 1 tab(s), Oral, TID, # 15 tab(s), Refills(s) 0, [id number], 172, cm, 09/24/23 13:02:00 EDT, Height/Length Dosing, 61.2, kg, 09/24/23 13:02:00 EDT, Weight Dosing Zofran ODT 8 mg Tab-Dis: 8 mg = 1 tab(s), SubLingual, q8hr, PRN Nausea/Vomiting, # 24 tab(s), Refills(s) 0, [id number], 169, cm, 01/16/24 10:14:00 EDT, Height/Length Dosing, 63.9, kg, 01/16/24 10:14:00 EDT, Weight Dosing cloNIDine 0.2 mg Tab: 0.2 mg = 1 tab(s), Oral, Bedtime, # 30 tab(s), Refills(s) 1, [id number], 173, cm, 05/24/20 14:42:00 EST, Height/Length Dosing, 50.1, kg, 05/24/20 14:42:00 EST,Weight Dosing colestipol 1 g Tab: 2 gm = 2 tab(s), Oral, BID, with a full glass of water, # 120 tab(s), Refills(s) 1, [id number], 169, cm, 01/16/24 10:14:00 EDT, Height/Length Dosing, 63.9, kg, 01/16/24 10:14:00 EDT, Weight Dosing hydrOXYzine hydrochloride 50 mg oral tablet: 50 mg = 1 tab(s), Oral, TID, PRN as needed for anxiety, # 30 tab(s), Refills(s) 0, [id number], 173, cm, 04/26/20 13:07:00 EST, Height/Length Dosing, 52.8, kg, 04/26/20 13:07:00 EST, Weight Dosing lamotrigine 25 mg Tab: See Instructions, TAKE 1 TABLET BY MOUTH EVERY DAY IN THE AFTERNOON, # 30 tab(s), Refills(s) 0, Pharmacy: [id number], 169.7, cm, 11/26/23 15:32:00 EDT, Height/Length Dosing, 62.1, kg, 11/26/23 15:32:00 EDT, Weight Dosing mirtazapine 7.5 mg oral tablet: 7.5 mg = 1 tab(s), Oral, Bedtime, # 30 tab(s), Refills(s) 0, [id number], 169.7, cm, 10/03/23 9:38:00 EDT, Height/Length Dosing, 62.5, kg, 10/03/23 9:38:00 EDT, Weight Dosing omeprazole 20 mg Cap-DR: See Instructions, TAKE 1 CAPSULE BY MOUTH EVERY DAY, # 30 cap(s), Refills(s) 0, Pharmacy: [facility], 169, cm, 02/21/24 8:47:00 EST, Height/Length Dosing, 62.2, kg, 02/21/24 8:47:00 EST, Weight Dosing ondansetron 4 mg Dis Tab: 4 mg = 1 tab(s), Oral, q6hr, PRN Nausea/Vomiting, # 30 tab(s), Refills(s)0, [id number], 169.7, cm, 11/26/23 15:32:00 EDT, Height/Length Dosing, 62.1, kg, 11/26/23 15:32:00 EDT, Weight Dosing ondansetron 8 mg Dis Tab: See Instructions, DISSOLVE 1 TABLET ON THE TONGUE EVERY 8 HOURS NEEDEDFOR NAUSEA AND VOMITING, # 24 tab(s), Refills(s) 0, [id number], 169, cm, 02/17/2411:55:00 EST, Height/Length Dosing, 61.8, kg, 02/18/24 11:55:00 EST, Weight D... promethazine 25 mg Tab: 25 mg = 1 tab(s), Oral, TID, # 15 tab(s), Refills(s) 0, Pharmacy: [facility]/pharmacy #[id number], 169, cm, 01/16/24 10:14:00 EDT, Height/Length Dosing, 63.9, kg, 01/16/24 10:14:00 EDT, Weight Dosing promethazine 25 mg Tab: See Instructions, TAKE 1 TABLET BY MOUTH THREE TIMES A DAY, # 30 tab(s), Refills(s) 1, [id number], 169, cm, 02/18/24 11:55:00 EST, Height/Length Dosing, 61.8, kg, 02/18/24 11:55:00 E (more content not included)...[facility] CenterComment on above:Result Comment: Electronically Signed By: Rob SANDOVAL, Dakota Shoemaker\.br\Date and Time Signed: 02/25/24 10:18 [id number] Evaluation + Plan note Future Scheduled Tests Laboratory* Giardia lamblia, Direct Detection EIA 11/26/23 * O & P Exam, Routine 11/26/23 * Rotavirus Ab 11/26/23 * Clostridium Difficile PCR 11/26/23 Radiology* XR Small Bowel w/ Serial Films 02/10/24 [facility] 09-10-2024 Evaluation + Plan note Future Scheduled Tests Laboratory* Giardia lamblia, Direct Detection EIA 11/26/23 * O & P Exam, Routine 11/26/23 * Rotavirus Ab 11/26/23 * Clostridium Difficile PCR 11/26/23 Radiology* CT Abdomen/Pelvis w/contrast (enterography) 01/30/24 * XR Small Bowel w/ Serial Films 02/10/24 [facility] 07-09-2024 Hospital Discharge instructions [...] Treatment for this condition includes: Antibiotic medicine. Jpnm-ars-vfotfce medicines to treat discomfort. Drinking enough water [...] Follow these instructions at home: Medicines Take dubu-blp-nmrggjk and prescription medicines only as told by [...] provider. Document Revised: 10/14/2020 Document Reviewed: 10/14/2020 [employer] Patient Education 2022 Boosted [employer]ards. Follow Up Care 09/24/2023 12:53:04 With:CHANCE SERRANO Address: [address] [place] [phone] Business (1) When:09/27/2023 15:19:10 [facility]07-09-2024 Evaluation + Plan note Diagnostic Tests Pending * Urine Culture 09/24/23 [facility]02-21-2023 Miscellaneous Notes* Telephone Encounter - Eva Chong - 05/08/2022 10:40 AM EST 05/08/22 Patient calling to see if Dr Moarles will write her a script for Zofran nausea medication strips. [phone] documented in this encounterAv[facility]-07-2023 NoteHNO ID: [id number] Author: Tiffani Morales MD Service: ? Author [...] Tiffani Morales MD 04/24/2022 11:19 AM Staff Transformation Specialist, Digestive Disease [facility] [place] PRIMARY PROBLEM: small bowel tumor, severe malnutrition [...] clips were successfully placed (MR conditional). 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 There was no bleeding at the end [...] patient, physical examination, documentation, and co-ordination of care.[facility]02-07-2023 History of Present illness Narrative* Tiffani [...] Tiffani Morales MD 04/24/2022 11:19 AM Staff Transformation Specialist, Digestive Disease & Surgery [place] PRIMARY PROBLEM: small bowel tumor, severe malnutrition [...] clips were successfully placed (MR conditional). 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 There was no bleeding at the end [...] co- ordination of care. documented in this encounterAvita [facility]01-19-2023 Miscellaneous Notes* Telephone Encounter - Eva Chong - 04/05/2022 9:29 AM EST 04/05/22 Patient wants tow know if y script you can send her script for ZOFRAN, under the tongue tablets. For nausea. Eva documented in this encounterAvita Health [facility]01-18-2023 NoteHNO ID: [id number] Author: Frederick Chaves APRN.SPLICING MACHINE OPERATOR AUTOMATIC Service: ? Author Type: Nurse Painter Barrel Type: Anesthesia Procedure Notes Filed: 04/04/2022 1:55 PM Note Text: ANESTHESIOLOGY PROCEDURE NOTE Airway General Information Procedure Start Time/Medication Administration: 04/04/2022 1:38 PM Patient location during procedure: OR Timeout Performed Pre-procedure: timeout performed Consent Obtained: Yes Patient identity confirmed: arm band Staffing SPLICING MACHINE OPERATOR AUTOMATIC: Frederick Chaves APRN.SPLICING MACHINE OPERATOR AUTOMATIC Performed by: GORGE Indications and Patient Condition Indications for airway management: anesthesia Preoxygenated: yes anesthesia circuit Patient position: sniffing Method: asleep Cricoid Pressure: No Difficult Mask: No Final Airway Details Final airway type: endotracheal airway Final Endotracheal Airway: ETT Cuffed: yes Successful intubation technique: video laryngoscopy Devices used: [employer] Endotracheal tube insertion site: oral Blade: [place] Blade size: #3 ETT size (mm): 7.0 Measured from: lips Measurement (cm): 21 Placement verified by: capnometry Cormack-Lehane Classification: grade I - full view of glottis Number of attempts at approach: 1 Airway not difficult SIGNATURE: Frederick Chaves APRN.CRNA PATIENT NAME: Sai Pineda DATE: April 04, 2022 TIME: 1:54 PM CSN: [id number]01-18-2023 NoteHNO ID: [id number] Author: Frederick Chaves APRN.SPLICING MACHINE OPERATOR AUTOMATIC Service: ? Author Type: Nurse Painter Barrel Type: Anesthesia Procedure Notes Filed: 04/04/2022 1:51 PM Note Text: ANESTHESIOLOGY PROCEDURE NOTE PIV General Information Procedure Start Time/Medication Administration: 04/04/2022 1:26 PM Patient Location: OR Staffing SPLICING MACHINE OPERATOR AUTOMATIC: Frederick Chaves APRN.SPLICING MACHINE OPERATOR AUTOMATIC Performed by: GORGE Preparation Sterility Preparation: hand [...] April 04, 2022 TIME: 1:49 PM CSN: [id number] [facility]01-18-2023 Nurse Note* Eduardo Harrington RN - [...] RN In Department: GASTROENTEROLOGY documented in this encounterAvita Health [facility]01-18-2023 NoteQ3 Patient Name: Sai Pineda Procedure Date: [...] clips were successfully placed (MR conditional). 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 There was no bleeding at the end of the maneuver. Exam of the jejunum was otherwise normal. Impression: - Atrophic mucosa. - Jejunal polyp(s). Resected and retrieved. Tattooed. Clips (MR conditional) were placed. Clip family day care provider: [employer]. Estimated Blood Loss: Estimated blood loss was minimal. Recommendation: - Await pathology results. - Resume previous diet. - Continue present medications. - Return to endoscopist at the next available appointment. Procedure Code(s): --- Professional --- 13171, Small intestinal endoscopy, enteroscopy beyond second portion of duodenum, not including ileum; with removal of tumor(s), polyp(s), or other lesion(s) by snare technique 59155, Unlisted procedure, small intestine Diagnosis Code(s): --- Professional --- K31.89, Other diseases of stomach and duodenum D13.39, Benign neoplasm of other parts of small intestine R93.3, Abnormal findings on diagnostic imaging of other parts of digestive tract CPT copyright 2020 [employer]. All rights reserved. Attending Participation: I was present and participated during the entire procedure, including non-morrison portions. Scope In: 1:44:30 PM Scope Out: 3:07:42 PM MD Tiffani Camargo MD 04/04/2022 3:21:50 PM This report has been signed electronically by Tiffani Morales MD Number of Addenda: 0 (more content not included)...[facility] 04-04-2022 History and physical note* Tiffani [...] DATE: 04/04/2022 TIME: 1302 documented in this encounterAvita Health [facility]01-11-2023 Miscellaneous Notes* Telephone Encounter - Eduardo Harrington RN - 03/28/2022 3:50 PM EST Attempted to reach the patient at the contact number that they provided [phone] (home) . Unable to speak with patient so without identifying the patient the following information was left on their voice mail: Date of procedure, location and report time A message was left informing the patient/patient compliance representative they must have a responsible adult [...] Number to call with questions or concerns [phone] Number to call to cancel their procedure [phone] Eduardo Harrington RN documented in this encounterAvita Health [facility]12-27-2022 Note* Addendum Note - Robb Evans MD - 03/13/2022 3:44 PM ESTAddended by: ROBB EVANS on: 03/13/2022 03:44 PM Modules accepted: Orders [id number] Miscellaneous Notes* Addendum Note - Robb Evans MD - 03/13/2022 3:44 PM ESTAddended by: ROBB EVANS on: 03/13/2022 03:44 PM Modules accepted: Orders * Addendum Note - Gokul Montoya MA - 03/13/2022 3:37 PM ESTAddended by: GOKUL MONTOYA on: 03/13/2022 03:37 PM Modules accepted: Orders documented in this [id number] Note* Addendum Note - Gokul Montoya MA - 03/13/2022 3:37 PM ESTAddended by: GOKUL MONTOYA on: 03/13/2022 03:37 PM Modules accepted: Orders [id number] Note* Addendum Note - Gokul Montoya MA - 03/13/2022 3:37 PM ESTAddended by: GOKUL MONTOYA on: 03/13/2022 03:37 PM Modules accepted: Orders [id number] Miscellaneous Notes* Addendum Note - Gokul Montoya MA - 03/13/2022 3:37 PM ESTAddended by: GOKUL MONTOYA on: 03/13/2022 03:37 PM Modules accepted: Orders documented in this [id number] NoteHNO ID: [id number] Author: Tiffani Morales MD Service: ? Author [...] Tiffani Morales MD 03/01/2022 11:19 AM Staff Transformation Specialist, Digestive Disease AND Surgery [place] PRIMARY PROBLEM: small bowel tumor, severe malnutrition [...] patient, physical examination, documentation, and co-ordination of care.[facility]12-15-2022 History of Present illness Narrative* Tiffani [...] Tiffani Morales MD 03/01/2022 11:19 AM Staff Transformation Specialist, Digestive Disease & Surgery [place] PRIMARY PROBLEM: small bowel tumor, severe malnutrition [...] co- ordination of care. documented in this encounterAvita Health [facility]12-02-2022 NoteHNO ID: [id number] Author: Anastasiya Mosqueda PA-C Service: ? Author Type: Physician Licensed Insurance Agent Type: Progress Notes Filed: 02/16/2022 5:07 PM Note Text: Orders placedRiverside Methodist Hospital11-21-2022 NoteHNO ID: [id number] Author: RT Fabiana(R) Service: Nuclear Medicine Author [...] [address] PERFORMED: No IV SITE: [place] only - not applicable, oral or physician administered agents given to patient POST EXAM PIV STATUS: Discontinued PROCEDURE TYPE: NM GET: 1 mCi Tc99m SULFUR COLLOID was administered orally via 4 ounces of Egg Beaters,2 pieces of toast, 1 ounce of jelly with 8 ounces of water orally ADMINISTRATION TIME: 08:15 PATIENT DISCHARGED TO: Ambulatory patient, left [place] department area. A Diagnostic radioactive procedure has taken place, with no further precautions necessary other than routine body substance precautions. More information regarding radiation safety can be found using this link: [email or web address] SIGNATURE: PHILLIP Jung) PATIENT NAME: Sai Pineda DATE: February 05, 2022 TIME: 10:16 AM PAGER/CONTACT #:[facility]11-14-2022 NoteHNO ID: [id number] Author: Dolores Lopez RN Service: ? Author Type: Registered Nurse Type: Progress Notes Filed: 02/01/2022 4:29 PM Note Text: Summary: capsule endoscopy small bowel Capsule endoscopy small bowel ingested without difficulty @ 1300 on 01-29-2022. Therese Lopez RN [id number] [facility] PTF G [id number] Capsule Endoscopy Post Ingestion Patient Information Do [...] cell phones, computers, remote TV appliances, microwaves, Clarisonic3 players and digital cameras. Because the capsule [...] hours you may call: HERNÁN Salvador RN [phone] After Business hours: [phone] and ask for GI Guuddp-Bk-TuhImrcsqdquUniversity [facility]11-14-2022 History of Present illness Narrative* Dolores Lopez RN - 01/29/2022 1:17 PM ESTSummary: capsule endoscopy small bowel Capsule endoscopy small bowel ingested without difficulty @ 1300 on 01-29-2022. Therese Lopez RN [id number] [facility] PTF G [id number] Capsule Endoscopy Post Ingestion Patient Information Do [...] hours you may call: HERNÁN Salvador RN [phone] After Business hours: [phone] and ask for GI Qmbpgy-Ff-Vzj documented in this encounterAvita Health [facility]10-21-2022 Miscellaneous Notes* Telephone Encounter - Tiffani Morales [...] Morales MD 01-05-2022 17:51 documented in this encounterAvita Health [facility]10-21-2022 NoteHNO ID: [id number] Author: Anastasiya Mosqueda PA-C Service: ? Author Type: Physician Licensed Insurance Agent Type: Progress Notes Filed: 01/05/2022 2:24 PM Note Text: Per discussion with Dr. Morales, GES, Small bowel capsule study, Fecal fat qual and pancreatic elastase stool studies orders placed. Discussed plan with patient. Gustavo Cast[facility]naPark[facility]10[facility] History of Present illness Narrative* Anastasiya Mosqueda PA-C - 01/05/2022 2:13 PM EDT Per discussion with Dr. Morales, GES, Small bowel capsule study, Fecal fat qual and pancreatic elastase stool studies orders placed. Discussed plan with patient. Anastasiya Mosqueda PA-C documented in this encounterAvita Health [facility]10-21-2022 Miscellaneous Notes* Telephone Encounter - Anastasiya Mosqueda [...] Anastasiya Mosqueda PA-C documented in this encounterCleveland [id number] Miscellaneous Notes* Telephone Encounter - Anastasiya Mosqueda PA-C - 01/03/2022 10:17 AM EDT EGD results discussed with patient as requested, pathology still pending. Will reach out to patientonce resulted. Red flags for in person care discussed. Anastasiya Mosqueda PA-C documented in this encounterAvita Health System [facility]10-18-2022 Miscellaneous Notes* Telephone Encounter - Leydi Dumontader - 01/02/2022 8:47 AM EDT Patient called to get results from her procedure. Please contact her at number listed in system. Thanks Leydi Henry Workleader documented in this encounterAvita Health System [facility] Hospital10-17-2022 Nurse Note* Juan Carlos Saucedo LPN - [...] RN In Department: GASTROENTEROLOGY documented in this encounterAvita Health System Galion Hospital10-17-2022 History and physical note * Tiffani Morales [...] DATE: 01/01/2022 TIME: 1600 documented in this encounterAvita Health System [facility] Hospital10-10-2022 Miscellaneous Notes* Telephone Encounter - Rima Gerard RN - 12/25/2021 8:26 AM EDT Patient scheduled incorrectly. Anesthesia not supposed to have 430 case. I called patient to see ifthey can come in early. She said she would call me back Rima Gerard RN documented in this encounterAvita Health System [facility] Hospital09-30-2022 NoteHNO ID: [id number] Author: Anastasiya Mosqueda PA-C Service: ? Author Type: Physician Licensed Insurance Agent Type: Progress Notes Filed: 12/15/2021 4:32 PM Note Text: VIRTUAL VISIT NEW PATIENT NAME: Sai Pineda [facility] NO: [id number] DATE: 12/15/2021 REASON FOR VISIT Sai Randolphn [id number] 1970 has requested a video telemedicine initial consultation at the request of Self. Sai Pineda [place] verbalized informed consent to proceed with the [...] abdominal rigidity Assessment IMPRESSION (more content not included)...[facility]09-30-2022 History of Present illness Narrative* GRECIA Castorena 12/15/2021 11:50 AM EDT VIRTUAL VISIT NEW PATIENT NAME: Sai Guerrero CLINIC NO: [id number] DATE: 12/15/2021 REASON FOR VISIT Sai Guerrero [id number] 1970 has requested a video telemedicine initial [...] 15, 2021 11:51 AM [facility] NoteHNO ID: [id number] Author: Anastasiya Mosqueda PA-C Service: ? Author Type: Physician Licensed Insurance Agent Type: Progress Notes Filed: 12/14/2021 3:51 PM Note Text: Unable to connect to VV, called multiple times and left multiple VM's. Patient rescheduled for tomorrow.[facility]09-29-2022 History of Present illness Narrative* Anastasiya Mosqueda PA-C - 12/14/2021 10:52 AM EDT Unable to connect to VV, called multiple times and left multiple VM's. Patient rescheduled for tomorrow. documented in this encounter[facility] Miscellaneous Notes* Telephone Encounter - Elizabeth Ricci - 12/13/2021 12:32 PM EDT Spoke to patient's daughter - she will contact the [email or web address] support line to assist with setting up patient's Mychart & assist with set up for virtual visit tomorrow morning Elizabeth Ricci * Telephone Encounter - Elizabeth Ricci - 12/13/2021 11:17 AM EDT Received a call from patient's health agency concerning virtual visit set up with you today at 11 - Patient has not registered for [employer] (having trouble accessing her email) & they want to knowif you will do a phone visit instead Was told this was an urgent request from the referring doctor's office - the visit was scheduled thru the Referring Physician office There are no records found for this patient & I attempted to pull records thru Care Everywhere Patient's phone [phone] Elizabeth Ricci documented in this encounter[facility] History of Present illness Narrative* Robb Evans MD - 09/27/2021 10:19 AM EDT Prolactin Level Elevated at 146. Will add Abilify 5 mg daily to address that. Pt informed. Pt is denying breast tenderness or documented in this [id number] History of Present illness Narrative* Robb Evans MD - 09/19/2021 2:19 PM EDT BEHAVIORAL HEALTH PSYCHIATRIC PROGRESS NOTE Reason for visit: Psychotropic medication management 09/19/2021 Patient is seen alone in his office for psychotropic medication management. Patient reported they are moving to a new residence, in [place] same place they have been living in. [...] Testing: none Robb Evans documented in this [id number] History of Present illness Narrative* Robb Evans [...] Testing: none Robb Evans documented in this [id number] History of Present illness Narrative* Robb Evans MD - 03/01/2021 1:31 PM EST Telephone Visit Via Phone Call [facility] [address] (11) [facility] [address] [facility] [phone] Telephone Visit [facility] 03/01/2021 Robb Evans MD Provider Location: [facility] Patient Location [employer] Professor: None Patient Location: Patient's Home Patient: Sai Pineda Date of : 1970 (50 y.o. female) PCP: Cristnia Iqbal CNP I discussed risks, benefits and [...] there are inherent diagnostic limitations compared to fobh-ef-gijg evaluations. We elected toproceed with the telephone [...] and Plan of Care. documented in this [id number] History of Present illness Narrative* Robb Evans MD - 08/22/2020 3:27 PM EDT Telephone Visit Via Phone Call [facility] [phone] Telephone Visit [facility] 08/22/2020 Robb Evans MD Provider Location: [facility] Patient Location [employer] Professor: None Patient Location: Patient's Home Patient: Sai [...] there are inherent diagnostic limitations compared to quxd-bd-jvnu evaluations. We elected toproceed with the telephone [...] and Plan of Care. documented in this [id number] History of Present illness Narrative* Robb Evans MD - 07/20/2020 11:29 AM EDT BEHAVIORAL HEALTH PSYCHIATRIC ASSESSMENT DOS: 07/18/3020 Reason for visit: Psychotropic management follow-up. Patient is here to reestablish care at my new location HPI: Patient is seen in office alone. [facility] Her working diagnosis is bipolar disorder type I, panic disorder with agoraphobia and PTSD. She has prior history of alcohol and cannabis abuse but has maintained sobriety for about last 1 year. Patient was seen here for reestablishing care at my new location in [facility]. Patient wants to continue her psychiatric management.. [place] Patient reported she she is [...] PFSH: Past Medical History: Diagnosis Date Alcoholism ([facility]), in remission Anxiety Bipolar disorder ([facility]) Depression Drug abuse and dependence ([facility]) in remission Panic disorder Psychosis ([facility]) Social History Substance and Sexual Activity [...] XR Small Bowel w/ Serial Films 01/27/24 [facility] Digestive Health Evaluation + Plan note Future Appointments Appointment Date:02/25/2024 11:00:00 AM Scheduled Provider: Location:[facility] Surgical Services Appointment Type:Surgery FT Future Scheduled Tests Laboratory* Giardia lamblia, Direct Detection EIA 11/26/23 * O & P Exam, Routine 11/26/23 * Rotavirus Ab 11/26/23 * Clostridium Difficile PCR 11/26/23 Radiology* CT Abdomen/Pelvis w/contrast (enterography) 01/30/24 * XR Small Bowel w/ Serial Films 02/10/24 [facility] Digestive Health evaluation note* Diagnosis Generalized [...] stress disorder (PTSD) documented in this encounter [facility] note* Diagnosis Bipolar 1 disorder, mixed, mild (HCC)- Primary Generalized anxiety disorder Long-term use of high-risk medication documented in this encounter [facility] note* Diagnosis APPOINTMENT CANCELLED- Primary documented in this encounter [facility] note* Diagnosis Nausea and vomiting, unspecified vomiting type- Primary Left upper quadrant abdominal pain Weight loss Loss of weight documented in this encounter [facility] note* Diagnosis Nausea and vomiting, unspecified vomiting type Left upper quadrant abdominal pain documented in this encounter [facility] note* Diagnosis Nausea- Primary Nausea alone Weight loss Loss of weight 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, jejunum, and ileum documented in this encounter [facility] note* Diagnosis Abdominal pain, unspecified abdominal location- Primary documented in this encounter [facility] note* Diagnosis Intestinal polyposis- Primary Benign neoplasm of colon documented in this encounter [facility] note* Diagnosis Severe protein-calorie malnutrition (HCC)- Primary Other severe protein-calorie malnutrition 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 Weight loss Loss of weight Severe malnutrition (HCC) 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 [facility] note* Diagnosis Generalized anxiety disorder documented in this encounter [facility] note* Diagnosis Generalized anxiety disorder documented in this encounter [facility] note* Diagnosis Generalized anxiety disorder documented in this encounter [facility] note* Diagnosis 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 documented in this encounter [facility] note* Diagnosis Generalized anxiety disorder documented in this encounter [facility] note* Diagnosis Severe malnutrition (HCC)- Primary 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 [facility] course Narrative No data available for this section [facility] No data available for this section [facility] Digestive Health Progress note No data available for this section [facility] Outpatient Procedure (Routine) - Closed Specialty Diagnoses / Procedures Referred By Shane t Referred To Contact [facility] Diagnoses Nausea and vomiting, unspecified vomiting type Left upper quadrant abdominal pain Procedures EGD DIAGNOSTIC ESOPHAGOGASTRODUODENOSC OPY TRANSORAL DIAGNOSTIC Anastasiya Mosqueda PA-C [address] [place] [address] [facility] [address] [place] [address] Referral ID Status Reason Start Date Expiration Date V isits Requested Visits Authorized [id number] Closed Auto-Generate d Referral 12/15/2021 12/15/2022 1 1 [facility] for referral (narrative)* Outpatient Procedure (Routine) - Pending Review Specialty Diagnoses / Procedures Referred By Shane titus Referred To Contact [facility] Diagnoses Small bowel polyp Procedures CAPSULE ENDOSCOPY SMALL BOWEL GI TRC IMG INTRALUMINAL ESOPHAGUS-ILEUM W/I&R Anastasiya Mosqueda PA-C [address] [place] [address] [address] Referral ID Status Reason Start Date Expiration Date Visits Requested Visits Authorized [id number] Pending Review Auto-Generat ed Referral 2 01/05/2023 1 1 * Diagnostic Procedure Only (Routine) - Pending Review Specialty Diagnoses / Procedures Referred By Shane titus Referred To Contact MOLECULAR & FUNCTIONAL IMAGING Diagnoses Nausea Procedures NM GASTRIC EMPTYING SOLID GASTRIC EMPTYING STUDY Anastasiya Mosqueda PA-C [address] [place] [address] Molecular & Functional Imaging [address] [id number] Referral ID Status Reason Start Date Expiration Date Visits Requested Visits Authorized [id number] Pending Review Auto-Generat ed Referral 2 02/04/2023 1 1 [facility] for referral (narrative)* Outpatient Procedure (Routine) - Pending Review Specialty Diagnoses / Procedures Referred By Shane titus Referred To Contact [facility] Diagnoses 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) Procedures ENTEROSCOPY ENDOSCOPY UPPER SMALL INTESTINE Tiffani Morales MD [address] [place] [address] [facility] Disease [address] [address] Referral ID Status Reason Start Date Expiration Date Visits Requested Visits Authorized [id number] Pending Review Auto-Generat ed Referral 2 03/02/2023 1 1 * MRI/CT (Routine) - Pending Review Specialty Diagnoses / Procedures Referred By Shane titus Referred To Contact CT IMAGING Diagnoses 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) Weight loss Procedures CT ENTEROGRAPHY W IVCON CT ABD & PELVIS W/CONTRAST Tiffani Morales MD [address] [place] [address] Ct [facility] Referral ID Status Reason Start Date Expiration Date Visits Requested Visits Authorized [id number] Pending Review Auto-Generat ed Referral 2 04/01/2023 1 1 [facility] for referral (narrative)* Outpatient Procedure (Routine) - Closed Specialty Diagnoses / Procedures Referred By Shane titus Referred To Contact [facility] Diagnoses 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) Procedures ENTEROSCOPY ENDOSCOPY UPPER SMALL INTESTINE Tiffani Morales MD [address] [place] [address] [facility] Disease [address] [address] Referral ID Status Reason Start Date Expiration Date V isits Requested Visits Authorized [id number] Closed Auto-Generate d Referral 03/02/2022 03/02/2023 1 1 [facility] for visit Narrative* Outpatient Procedure (Routine) - Closed Specialty Diagnoses / Procedures Referred By Contac t Referred To Contact [facility] Diagnoses Nausea and vomiting, unspecified vomiting type Left upper quadrant abdominal pain Procedures EGD DIAGNOSTIC ESOPHAGOGASTRODUODENOSC OPY TRANSORAL DIAGNOSTIC Anastasiya Mosqueda PA-C [phone] [place] [address] Referral ID Status Reason Start Date Expiration Date V isits Requested Visits Authorized [id number] Closed Auto-Generate d Referral 12/15/2021 12/15/2022 1 1 [facility]* Outpatient Procedure (Routine) - Closed Specialty Diagnoses / Procedures Referred By Shane titus Referred To Contact [facility] Diagnoses 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) Procedures ENTEROSCOPY ENDOSCOPY UPPER SMALL INTESTINE Tiffani Morales MD [address] [place] [address] [place] [address] Referral ID Status Reason Start Date Expiration Date V isits Requested Visits Authorized [id number] Closed Auto-Generate d Referral 03/02/2022 03/02/2023 1 1 [facility] Advance Directives No Advanced Directives Records FoundDocuments on File Type Date Recorded 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 Advance Directives and Living Will [...] loss Procedures CONSULT TO NUTRITION THERAPY OFFICE/OUTPATIENT [facility] HIGH MDM 60-74 MINUTES Anastasiya Mosqueda PA-C [address] [id number] Referral ID Status Reason Start Date Expiration Date Visits Requested Visits Authorized [id number] Authorized PCP Requested Referral 12/15/2021 12/15/2022 1 1 Specialty Diagnoses / Procedures Referred By Shane t Referred To Contact [facility] Diagnoses Nausea and vomiting, unspecified vomiting type Left upper quadrant abdominal pain Procedures EGD DIAGNOSTIC ESOPHAGOGASTRODUODENOSC OPY TRANSORAL DIAGNOSTIC Anastasiya Mosqueda PA-C [address] [id number] [facility] [place] [address] [place] [address] Referral ID Status Reason Start Date Expiration Date Visits Requested Visits Authorized [id number] Authorized Auto-Generat ed Referral 12/15/2021 12/15/2022 1 1 Medications Administered Section Inactive Administered Medications - up to 3 most recent administrations Medication Order MAR Action Action Date Dose Rate Site benzocaine 20% (TOPEX) TOPICAL, X (OR/PROCEDURE) PRN, Starting on Sat01/01/22 at 1606, Until Sat01/01/22 at 1606, Intraprocedure Given 01/01/2022 4:06 PM EDT 1 [place] NaCl 0.9% iv infusion 30 mL/hr, INTRAVENOUS, [...] Care Teams (unrecognized sec tion and content) Science Faculty Member Relationship Specialty Start Date End Date Cristina Iqbal, GRAIN WAFER MACHINE OPERATOR [address] [place] [address] PCP - General Nurse Practitioner 07/18/20 Science Faculty Member Relationship Specialty Start Date End Date Cristina Iqbal, GRAIN WAFER MACHINE OPERATOR [address] [place] [address] PCP - General Nurse Practitioner 07/18/20 Science Faculty Member Relationship Specialty Start Date End Date Cristina Iqbal, GRAIN WAFER MACHINE OPERATOR [address] [place] [address] PCP - General Nurse Practitioner 07/18/20 Science Faculty Member Relationship Specialty Start Date End Date Cristina Iqbal, GRAIN WAFER MACHINE OPERATOR [address] [place] [address] PCP - General Nurse Practitioner 07/18/20 Science Faculty Member Relationship Specialty Start Date End Date Cristina Iqbal, GRAIN WAFER MACHINE OPERATOR [address] [place] [address] PCP - General Nurse Practitioner 07/18/20 Science Faculty Member Relationship Specialty Start Date End Date Cristina Iqbal, GRAIN WAFER MACHINE OPERATOR [address] [place] [address] PCP - General Family Medicine 10/15/12 Science Faculty Member Relationship Specialty Start Date End Date Cristina Iqbal, GRAIN WAFER MACHINE OPERATOR [address] [place] [address] PCP - General Family Medicine 10/15/12 Science Faculty Member Relationship Specialty Start Date End Date Cristina Iqbal, GRAIN WAFER MACHINE OPERATOR [address] [place] [address] PCP - General Family Medicine 10/15/12 Science Faculty Member Relationship Specialty Start Date End Date Cristina Iqbal, GRAIN WAFER MACHINE OPERATOR [address] [place] [address] PCP - General Family Medicine 10/15/12 Science Faculty Member Relationship Specialty Start Date End Date Cristina Iqbal, GRAIN WAFER MACHINE OPERATOR [address] [place] [address] PCP - General Family Medicine 10/15/12 Science Faculty Member Relationship Specialty Start Date End Date Cristina Iqbal, GRAIN WAFER MACHINE OPERATOR [address] [place] [address] PCP - General Family Medicine 10/15/12 Science Faculty Member Relationship Specialty Start Date End Date Cristina Iqbal, GRAIN WAFER MACHINE OPERATOR [address] [place] [address] PCP - General Family Medicine 10/15/12 Science Faculty Member Relationship Specialty Start Date End Date Cristina Iqbal, GRAIN WAFER MACHINE OPERATOR [address] [place] [address] PCP - General Family Medicine 10/15/12 Science Faculty Member Relationship Specialty Start Date End Date Cristina Iqbal, GRAIN WAFER MACHINE OPERATOR [address] [place] [address] PCP - General Nurse Practitioner 07/18/20 Science Faculty Member Relationship Specialty Start Date End Date Cristina Iqbal, GRAIN WAFER MACHINE OPERATOR [address] [place] [address] PCP - General Family Medicine 10/15/12 Science Faculty Member Relationship Specialty Start Date End Date Cristina Iqbal, GRAIN WAFER MACHINE OPERATOR [address] [place] [address] PCP - General Family Medicine 10/15/12 Science Faculty Member Relationship Specialty Start Date End Date Cristina Iqbal, GRAIN WAFER MACHINE OPERATOR [address] [place] [address] PCP - General Family Medicine 10/15/12 Science Faculty Member Relationship Specialty Start Date End Date Cristina Iqbal, GRAIN WAFER MACHINE OPERATOR [address] [place] [address] PCP - General Family Medicine 10/15/12 Science Faculty Member Relationship Specialty Start Date End Date Cristina Iqbal, GRAIN WAFER MACHINE OPERATOR [address] [place] [address] PCP - General Nurse Practitioner 07/18/20 Science Faculty Member Relationship Specialty Start Date End Date Cristina Iqbal, GRAIN WAFER MACHINE OPERATOR [address] [place] [address] PCP - General Nurse Practitioner 07/18/20 Science Faculty Member Relationship Specialty Start Date End Date Cristina Iqbal, GRAIN WAFER MACHINE OPERATOR [address] [place] [address] PCP - General Family Medicine 10/15/12 Science Faculty Member Relationship Specialty Start Date End Date Cristina Iqbal, GRAIN WAFER MACHINE OPERATOR [address] [place] [address] PCP - General Family Medicine 10/15/12 Science Faculty Member Relationship Specialty Start Date End Date Cristina Iqbal, GRAIN WAFER MACHINE OPERATOR [address] [place] [address] PCP - General Family Medicine 10/15/12 Science Faculty Member Relationship Specialty Start Date End Date Cristina Iqbal, GRAIN WAFER MACHINE OPERATOR [address] [place] [address] [phone] (work) PCP - General Family Medicine 10/15/12 INFORMATION SOURCE (unrecogn ized section and content) DATE CREATED AUTHOR 12/16/2021 [facility] DATE CREATED AUTHOR AUTHOR'S ORGANIZ ATION 12/20/2021 [facility] DATE CREATED AUTHOR AUTHOR'S ORGANIZ ATION 05/12/2022 [facility] DATE CREATED AUTHOR AUTHOR'S ORGANIZ ATION 05/31/2022 [facility] DATE CREATED AUTHOR AUTHOR'S ORGANIZ ATION 03/04/2024 [facility] DATE CREATED AUTHOR AUTHOR'S ORGANIZ ATION 03/05/2024 [facility] DATE CREATED AUTHOR AUTHOR'S ORGANIZ ATION 03/19/2024 [facility] DATE CREATED AUTHOR AUTHOR'S ORGANIZ ATION 03/29/2024 [facility] ical [facility] Source Comments (unrecognize d section and content) In the event this informatio n is protected by the Federal Confidentiality of Alcohol and Drug Abuse Patient Records regulations: The Federal rules restrict any use of the information to criminally investigate or prosecute any alcohol or drug abuse patient.[facility] the event this information is protected by the Federal Confidentiality of Alcohol and Drug Abuse Patient Records regulations: The Federal rules restrict any use of the information to criminally investigate or prosecute any alcohol or drug abuse patient.[facility] the event this information is protected by the Federal Confidentiality of Alcohol and Drug Abuse Patient Records regulations: The Federal rules restrict any use of the information to criminally investigate or prosecute any alcohol or drug abuse patient.[facility] Hospital[facility] the event this information is protected by the Federal Confidentiality of Alcohol and Drug Abuse Patient Records regulations: The Federal rules restrict any use of the information to criminally investigate or prosecute any alcohol or drug abuse patient.[facility] Hospital[facility] the event this information is protected by the Federal Confidentiality of Alcohol and Drug Abuse Patient Records regulations: The Federal rules restrict any use of the information to criminally investigate or prosecute any alcohol or drug abuse patient.[facility] Hospital[facility] the event this information is protected by the Federal Confidentiality of Alcohol and Drug Abuse Patient Records regulations: The Federal rules restrict any use of the information to criminally investigate or prosecute any alcohol or drug abuse patient.[facility] Hospital[facility] the event this information is protected by the Federal Confidentiality of Alcohol and Drug Abuse Patient Records regulations: The Federal rules restrict any use of the information to criminally investigate or prosecute any alcohol or drug abuse patient.[facility] Hospital[facility] the event this information is protected by the Federal Confidentiality of Alcohol and Drug Abuse Patient Records regulations: The Federal rules restrict any use of the information to criminally investigate or prosecute any alcohol or drug abuse patient.[facility] Hospital[facility] the event this information is protected by the Federal Confidentiality of Alcohol and Drug Abuse Patient Records regulations: The Federal rules restrict any use of the information to criminally investigate or prosecute any alcohol or drug abuse patient.[facility] Hospital[facility] the event this information is protected by the Federal Confidentiality of Alcohol and Drug Abuse Patient Records regulations: The Federal rules restrict any use of the information to criminally investigate or prosecute any alcohol or drug abuse patient.[facility] Hospital[facility] the event this information is protected by the Federal Confidentiality of Alcohol and Drug Abuse Patient Records regulations: The Federal rules restrict any use of the information to criminally investigate or prosecute any alcohol or drug abuse patient.[facility] Hospital[facility] the event this information is protected by the Federal Confidentiality of Alcohol and Drug Abuse Patient Records regulations: The Federal rules restrict any use of the information to criminally investigate or prosecute any alcohol or drug abuse patient.[facility] Hospital[facility] the event this information is protected by the Federal Confidentiality of Alcohol and Drug Abuse Patient Records regulations: The Federal rules restrict any use of the information to criminally investigate or prosecute any alcohol or drug abuse patient.[facility] HospitalIn the event this information is protected by the Federal Confidentiality of Alcohol and Drug Abuse Patient Records regulations: The Federal rules restrict any use of the information to criminally investigate or prosecute any alcohol or drug abuse patient.[facility] HospitalIn the event this information is protected by the Federal Confidentiality of Alcohol and Drug Abuse Patient Records regulations: The Federal rules restrict any use of the information to criminally investigate or prosecute any alcohol or drug abuse patient.[facility] HospitalIn the event this information is protected by the Federal Confidentiality of Alcohol and Drug Abuse Patient Records regulations: The Federal rules restrict any use of the information to criminally investigate or prosecute any alcohol or drug abuse patient.[facility] HospitalIn the event this information is protected by the Federal Confidentiality of Alcohol and Drug Abuse Patient Records regulations: The Federal rules restrict any use of the information to criminally investigate or prosecute any alcohol or drug abuse patient.[facility] HospitalIn the event this information is protected by the Federal Confidentiality of Alcohol and Drug Abuse Patient Records regulations: The Federal rules restrict any use of the information to criminally investigate or prosecute any alcohol or drug abuse patient.[facility] HospitalIn the event this information is protected by the Federal Confidentiality of Alcohol and Drug Abuse Patient Records regulations: The Federal rules restrict any use of the information to criminally investigate or prosecute any alcohol or drug abuse patient.[facility] HospitalIn the event this information is protected by the Federal Confidentiality of Alcohol and Drug Abuse Patient Records regulations: The Federal rules restrict any use of the information to criminally investigate or prosecute any alcohol or drug abuse patient.[facility] HospitalIn the event this information is protected by the Federal Confidentiality of Alcohol and Drug Abuse Patient Records regulations: The Federal rules restrict any use of the information to criminally investigate or prosecute any alcohol or drug abuse patient.[facility] FOR RECORDS PERTAINING TO PATIENTS WHO [...] BE BASED ON THE PRIMARY CLINICAL RECORDS. [facility] [employer] [facility] provides no warranty or guarantee of the accuracy or completeness of information in this document.
--- OUTSIDE RECORDS SUMMARY | 2024-05-05 03:35 | XMS_ITS | CCD ---
Author Organization [facility] Care Team Providers Care Defense Travel Administrator Name Role Phone Cristina Iqbal CNP Primary [...] Provider Cristina Iqbal CNP Primary Care Provider [phone] PARKER IQBALA ALEE Primary Care Unavailable KIRSTEN [...] Care Unavailable JAYLIN ANASTASIYA Referring Unavailable AICHHOLZ, CSW CRISTINA Primary Care Unavailable ANNELISE FRAZIER Admitting Unavailable ANNELISE FRAZIER Attending Unavailable ANNELISE FRAZIER Consulting Unavailable BELEN REGAN Consulting Unavailable IRINA SEGURA Admitting Unavailable IRINA SEGURA Attending Unavailable AICHHOLZ, CSW CRISTINA Primary Care Unavailable MISC, DR DECKER Consulting Unavailable GEHLOT, UPENDER Admitting Unavailable GEHLOT, UPENDER Attending Unavailable AICHHOLZ, CSW CRISTINA Referring Unavailable AICHHOLZ, CSW CRISTINA Primary Care Unavailable GEHLOT, UPENDER Consulting Unavailable BENEDICT, DR RYDER Admitting Unavailable BENEDICT, DR RYDER Attending Unavailable AICHHOLZ, CSW CRISTINA Primary Care Unavailable BENEDICT, DR RYDER Consulting Unavailable MISC, DR DECKER Admitting Unavailable MISC, DR DECKER Attending Unavailable AICHHOLZ, CSW CRISTINA Primary Care Unavailable MISC, DR DECKER Consulting Unavailable AICHOLZ, CSW CRISTINA Primary Care Unavailable PAY ., DR ZULUAGA Admitting Unavailable PAY ., DR ZULUAGA Attending Unavailable PAY ., DR ZULUAGA Consulting Unavailable CHITRA ALFARO Consulting Unavailable AICHHOLZ, CSW CRISTINA Primary Care Unavailable PAY ., DR ZULUAGA Admitting Unavailable PAY ., DR ZULUAGA Attending Unavailable ZIEBER, DR RYDER R Consulting Unavailable PAY ., DR ZULUAGA Consulting Unavailable AICHOLZ, CSW CRISTINA Primary Care Unavailable TJ .GELA Admitting Unavailable TJ ., GELA Attending Unavailable BARBI HENRY Consulting Unavailable TJ ., GELA Consulting Unavailable [facility] Primary [facility] Physician Lala Zarco Primary Care Physician Eligio Noe Attending Unavailable Eligio Noe Admitting Unavailable Aichholz, Cristina J Primary Care Unavailable [facility] Primary Care Unavailable Sandoval Rae Admitting Unavailable Sandoval Rae Attending Unavailable Sandoval Rae Referring Unavailable Sandoval Rae Attending Unavailable Sandoval Rae Attending Unavailable Sandoval Rae Attending Unavailable Sandoval Rae Attending Unavailable Lala Zarco Attending Unavailable Lala Zarco Attending Unavailable [facility] Unavailable Lala Zarco Attending Unavailable Sandoval Rae [...] 30 tab(s), Refills(s) 5, Pharmacy: [facility]/pharmacy #[id number], 169, cm, 03/23/24 13:17:00 EST, Height/Length [...] day(s), # 10 cap(s), Refills(s) 0, Pharmacy: [facility]/pharmacy #[id number], 172, cm, 09/24/23 13:02:00 EDT, Height/Length Dosing, 61.2, kg, 09/24/23 13:02:00 EDT, Weight Dosing Start Date: 09/24/23 Stop Date: 09/29/23 Status: Ordered cholestyramine resin 4000 mg powder for oral suspension (5 sources) Bile Acid Sequestrant Start: 024 Questran 4 g/9 g oral powder = 1 packet(s), Oral, BID, # 60 EA, Refills(s) 2, Pharmacy: [facility]/pharmacy #[id number], 169, cm, 01/16/24 10:14:00 EDT, Height/Length Dosing, 63.9, kg, 01/16/24 10:14:00 EDT, Weight Dosing Start Date: 01/16/24 Status: Ordered cloNIDine hydrochloride 0.2 mg oral tablet (20 sources) Central alpha-2 Adrenergic Agonist Start: End: take 1 tablet by mouth at bedtime cloNIDine 0.2 mg Tab 0.2 mg = 1 tab(s), Oral, Bedtime, # 30 tab(s), Refills(s) 1, Pharmacy: [facility]/pharmacy #[id number], 173, cm, 05/24/20 14:42:00 EST, Height/Length [...] 120 tab(s), Refills(s) 1, Pharmacy: [facility]/pharmacy #[id number], 169, cm, 01/16/24 10:14:00 EDT, Height/Length [...] 30 tab(s), Refills(s) 0, Pharmacy: [facility]/pharmacy #[id number], 173, cm, 04/26/20 13:07:00 EST, Height/Length [...] AFTERNOON, # 30 tab(s), Refills(s) 0, Pharmacy: [facility], 169.7, cm, 11/26/23 15:32:00 EDT, Height/Length Dosing, [...] 30 tab(s), Refills(s) 0, Pharmacy: [facility]/pharmacy #6177, 169.7, cm, 10/03/23 9:38:00 EDT, Height/Length [...] DAY, # 30 cap(s), Refills(s) 0, Pharmacy: [id number], 169, cm, 02/25/24 9:14:00 EST, Height/Length Dosing, 62.2, kg, 02/25/24 9:14:00 EST, Weight Dosing Start Date: 03/23/24 Status: Ordered Start: 02-24-2024 take 1 capsule by [facility] once daily omeprazole 20 mg Cap-DR See Instructions, TAKE 1 CAPSULE BY MOUTH EVERY DAY, # 30 cap(s), Refills(s) 0, Pharmacy: [facility], 169, cm, 02/21/24 8:47:00 EST, Height/Length Dosing, 62.2, kg, 02/21/24 8:47:00 EST, Weight Dosing Start Date: 02/24/24 Status: Ordered Start: 01-20-2024 take 1 capsule by [facility] once daily omeprazole 20 mg Cap- See Instructions, TAKE 1 CAPSULE BY MOUTH EVERY DAY, # 30 cap(s), Refills(s) 0, Pharmacy: [facility], 169, cm, 01/16/24 10:14:00 EDT, Height/Length Dosing, 63.9, kg, 01/16/24 10:14:00 EDT, Weight Dosing Start Date: 01/20/24 Status: Ordered Start: 12-04-2023 take 1 capsule by [facility] once daily omeprazole 20 mg Cap-DR See Instructions, TAKE 1 CAPSULE BY MOUTH EVERY DAY, # 30 cap(s), Refills(s) 0, Pharmacy: [facility]/pharmacy #6177, 169.7, cm, 11/26/23 15:32:00 EDT, Height/Length Dosing, 62.1, kg, 11/26/23 15:32:00 EDT, Weight Dosing Start Date: 12/04/23 Status: Ordered ondansetron 4 mg oral tablet (20 sources) Serotonin-3 Receptor Antagonist Start: 02-27-2024 take 1 tablet by mouth every eight hours as needed for nausea Zofran 4 mg Tab 4 mg = 1 tab(s), Oral, q8hr, PRN Nausea, # 30 tab(s), Refills(s) 0, Pharmacy: [facility]/pharmacy #[id number], 169, cm, 02/25/24 9:14:00 EST, Height/Length Dosing, 62.2, kg, 02/25/24 9:14:00 EST, Weight Dosing Start Date: 02/27/24 Status: Ordered Start: 02-18-2024 ondansetron 8 mg Dis Tab See Instructions, DISSOLVE 1 TABLET ON THE TONGUE EVERY 8 HOURS NEEDED FOR NAUSEA AND VOMITING, # 24 tab(s), Refills(s) 0, Pharmacy: [facility]/pharmacy #[id number], 169, cm, 02/18/24 11:55:00 EST, Height/Length Dosing, 61.8, kg, 02/18/24 11:55:00 EST, Weight Dosing Start Date: 02/18/24 Status: Ordered Start: 12-20-2023 take 1 tablet by [facility] every six hours as needed for nausea ondansetron 4 mg Dis Tab 4 mg = 1 tab(s), Oral, q6hr, PRN Nausea/Vomiting, # 30 tab(s), Refills(s) 0, Pharmacy: [facility]/pharmacy #6177, 169.7, cm, 11/26/23 15:32:00 EDT, Height/Length [...] 10 tab(s), Refills(s) 0, Pharmacy: [facility]/pharmacy #6177, 173, cm, 04/26/20 13:07:00 EST, Height/Length [...] by mouth once daily. polyethylene glycol 3350 56437 mg powder for oral solution (18 sources) [...] TID, # 15 tab(s), Refills(s) 1, [facility] 169, cm, 03/23/24 13:17:00 EST, [...] q4hr, # 12 tab(s), Refills(s) 0, [facility], 172.9, cm, 12/03/21 10:15:00 EDT, Height/Length Dosing, 46.2, kg, 12/03/21 10:15:00 EDT, Weight Dosing Start Date: 12/03/21 Status: Ordered Start: 12-03-2021 Phenergan 25 m g Supp 25 mg = 1 supp, Rectal, q6hr, PRN as needed for nausea, Insert one per rectum every six hours as needed for nausea and vomiting, # 6 EA, Refills(s) 0, Pharmacy: [facility]/pharmacy #6177, 172.9, cm, 12/03/21 10:15:00 EDT, Height/Length [...] 56 tab(s), Refills(s) 0, Pharmacy: [facility]/pharmacy #6177, 169, cm, 02/21/24 8:47:00 EST, Height/Length [...] 4 gm, Refills(s) 11, Pharmacy: [facility]/pharmacy #6177, 169.7, cm, 11/26/23 15:32:00 EDT, Height/Length [...] 15 tab(s), Refills(s) 0, Pharmacy: [facility]/pharmacy #6177, 172, cm, 09/24/23 13:02:00 EDT, Height/Length [...] 24 tab(s), Refills(s) 0, Pharmacy: [facility]/pharmacy #6177, 169, cm, 03/23/24 13:17:00 EST, Height/Length Dosing, 64.9, kg, 03/23/24 13:17:00 EST, Weight Dosing Start Date: 03/23/24 Status: Ordered Start: 02-12-2024 take 1 tablet under the tongue every eight hours as needed for nausea Zofran ODT 8 mg Tab-Dis 8 mg = 1 tab(s), SubLingual, q8hr, PRN Nausea/Vomiting, # 24 tab(s), Refills(s) 0, Pharmacy: [facility]/pharmacy #6177, 169, cm, 01/16/24 10:14:00 EDT, Height/Length Dosing, 63.9, kg, 01/16/24 10:14:00 EDT, Weight Dosing Start Date: 02/12/24 Status: Ordered Start: 01-23-2024 take 1 tablet under the tongue every eight hours as needed for nausea Zofran ODT 8 mg Tab-Dis 8 mg = 1 tab(s), SubLingual, q8hr, PRN Nausea/Vomiting, # 24 tab(s), Refills(s) 0, Pharmacy: [facility]/pharmacy #6177, 169, cm, 01/16/24 10:14:00 EDT, Height/Length [...] sources) H/O: high risk medication; Translations: [Other exterminator (current) drug therapy] Episodic Other and unspecified [...] 2021 Episodic Other aftercare (7 sources) Other exterminator (current) drug therapy; Translations: [Other long-term (current) drug therapy] Onset: 09-19-2021 Episodic Other [...] Tetrahydrocannabinol (THC) dependence Refills: 5 Pickup at [facility]/pharmacy #1606 Unchanged albuterol (albuterol 0.083% Inh Misty 3 [...] ACT 2 (more content not included)... Normal [facility] Gastroenterology Office/Clin ic Noteon 03-23-2024 [...] bedtime), # 30 tab(s), Refills(s) 5, [id number] 169, cm, 03/23/24 13:17:00 EST, Height/Length Dosing, 64.9, kg, 03/23/24 13:17:00 EST, Weight Dosing 2. Epigastric pain (R10.13: Epigastric pain) Ordered: amitriptyline, 25 mg = 1 tab(s), Oral, Once a day (at bedtime), # 30 tab(s), Refills(s) 5, [id number] 169, cm, 03/23/24 13:17:00 EST, Height/Length Dosing, 64.9, kg, 03/23/24 13:17:00 EST, Weight Dosing 3. Chronic diarrhea (K52.9: Noninfective gastroenteritis and colitis, unspecified) Ordered: amitriptyline, 25 mg = 1 tab(s), Oral, Once a day (at bedtime), # 30 tab(s), Refills(s) 5, [id number] 169, cm, 03/23/24 13:17:00 EST, Height/Length Dosing, 64.9, kg, 03/23/24 13:17:00 EST, Weight Dosing 4. History of colon polyps (Z86.0100: Personal history of colon polyps, unspecified) Ordered: amitriptyline, 25 mg = 1 tab(s), Oral, Once a day (at bedtime), # 30 tab(s), Refills(s) 5, [id number] 169, cm, 03/23/24 13:17:00 EST, Height/Length Dosing, 64.9, kg, 03/23/24 13:17:00 EST, Weight Dosing 5. Schatzki's ring (K22.2: Esophageal obstruction) Ordered: amitriptyline, 25 mg = 1 tab(s), Oral, Once a day (at bedtime), # 30 tab(s), Refills(s) 5, [id number] 169, cm, 03/23/24 13:17:00 EST, Height/Length Dosing, 64.9, kg, 03/23/24 13:17:00 EST, Weight Dosing 6. 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 Tetrahydr (more content not included)... Normal [facility] Comment on above: Result Comment: Elec tronically Signed By: Butch SANDOVAL, Sandoval Frost\.br\Date and Time Signed: 03/23/24 13:45 EST Urine Cultureon 03-15-2024 Bacteria identified Cx Nom (U) 50,000 colonies/ml mixed bacterial skin contaminants including mixed gram negative bacilli - 2 Days PERFORMED BY: [place] [address] PATHOLOGIST PEDIATRIC OPHTHALMOLOGIST HARRIS CUELLAR M.D. Normal [facility] Comment on above: Performed By: #### C UU #### [address] Surgical Pathology Reporton 03-02-2024 [place] [address]- Surgical Pathology Report Collected Date/Time: 02/25/2024 10:41 [...] Entire specimen submitted in one cassette. (YC) [facility] Microscopic Description Microscopic examination performed unless gross [...] characteristics were determined by the [facility]. They have not been cleared or approved by the US Food and Drug Administration. The FDA has determined that such clearance or approval is not necessary. These tests are used for clinical purposes. They should not be regarded as investigational or for research. Appropriate positive and negative controls are performed and are acceptable. Normal [facility] Comment on above: Performed By: #### [id number] #### [facility] [address] [place] [id number] Main OR Intraoperative Recor don 02-27-2024 Main OR Intraoperative Record Main OR Intraoperative Record IntraOp Document Type FT Summary Primary Physician: Sandoval Rae MD Finalized Date/Time: 02/27/24 07:51:23 Pt. Name: SAI PINEDA /Sex: 1970 Female Med Rec #: [id number] Physician: Sandoval Rae MD Financial #: [id number] Pt. Type: O Room/Bed: / Admit/Disch: 02/25/24 [...] Sandoval Allen RN, Chucho Calderon Role Performed DRILL PUNCH OPERATOR Surgeon - Primary Railroad Engineer - Primary Time In 02/25/24 10:32:00 02/25/24 [...] Allen RN, Mouchli MD, Sandoval Frost, Roque INSTRUCTOR PAINTING, Luis Manuel Jacob Kirstyn K Time Out [...] Yes Le (more content not included)... Normal [facility] Discharge Instructionson Discharge Instructions Discharge [...] Vomiting Historical (more content not included)... Normal [facility] Comment on above: [...] Nausea, vomiting, and epigastric pain -EGD Normal [facility] Main OR PACU II Recordon Main OR PACU II Record Main OR PACU II Record PACU Phase II Document Type FT Summary Primary Physician: Sandoval Rae MD Finalized Date/Time: 02/25/24 11:30:19 Pt. Name: SAI PINEDA /Sex: 1970 Female Med Rec #: [id number] Physician: Sandoval Rae MD Financial #: [id number] Pt. Type: O Room/Bed: / Admit/Disch: 02/25/24 [...] By: Christin Hensley I 02/25/24 11:30 Normal [facility] Main OR Preoperative Recordo n 02-25-2024 Main OR Preoperative Record Main OR Preoperative Record Holding Area Document Type FT Summary Primary Physician: Sandoval Rae MD Finalized Date/Time: 02/25/24 09:16:52 Pt. Name: SAI PINEDA/Sex: 1970 Female Med Rec #: [id number] Physician: Sandoval Rae MD Financial #: [id number] Pt. Type: O Room/Bed: / Admit/Disch: 02/25/24 [...] By: Mely Montilla RN 02/25/24 09:16 Normal [facility] Operative Reporton Operative Report Operative [...] day(s), # 56 tab(s), Refills(s) 0, [id number], 169, cm, 02/21/24 8:47:00 EST, Height/Length Dosing, 62.2, kg, 02/21/24 8:47:00 EST, Weight Dosing Questran 4 g/9 g oral powder: = 1 packet(s), Oral, BID, # 60 EA, Refills(s) 2, [id number], 169, cm, [...] Bedtime, # 30 tab(s), Refills(s) 1, [id number], 173, cm, 05/24/20 14:42:00 EST, Height/Length Dosing, 50.1, kg, 05/24/20 14:42:00 EST, Weight Dosing colestipol 1 g Tab: 2 gm = 2 tab(s), Oral, BID, with a full glass of water, # 120 tab(s), Refills(s) 1, [id number], 169, cm, 01/16/24 10:14:00 EDT, Height/Length Dosing, 63.9, kg, 01/16/24 10:14:00 EDT, Weight Dosing hydrOXYzine hydrochloride 50 mg oral tablet: 50 mg = 1 tab(s), Oral, TID, PRN as needed for anxiety, # 30 tab(s), Refills(s) 0, [id number], 173, cm, 04/26/20 13:07:00 EST, Height/Length Dosing, 52.8, kg, 04/26/20 13:07:00 EST, Weight Dosing lamotrigine 25 mg Tab: See Instructions, TAKE 1 TABLET BY MOUTH EVERY DAY IN THE AFTERNOON, # 30 tab(s), Refills(s) 0, Pharmacy: [facility], 169.7, cm, 11/26/23 15:32:00 EDT, Height/Length Dosing, 62.1, kg, 11/26/23 15:32:00 EDT, Weight Dosing mirtazapine 7.5 mg oral tablet: 7.5 mg = 1 tab(s), Oral, Bedtime, # 30 tab(s), Refills(s) 0, [id number], 169.7, cm, 10/03/23 9:38:00 EDT, Height/Length Dosing, 62.5, kg, 10/03/23 9:38:00 EDT, Weight Dosing omeprazole 20 mg Cap-DR: See Instructions, TAKE 1 CAPSULE BY MOUTH EVERY DAY, # 30 cap(s), Refills(s) 0, Pharmacy: [facility] [address], 169, cm, 02/21/24 8:47:00 EST, Height/Length Dosing, 62.2, kg, 02/21/24 8:47:00 EST, Weight Dosing ondansetron 4 mg Dis Tab: 4 mg = 1 tab(s), Oral, q6hr, PRN Nausea/Vomiting, # 30 tab(s), Refills(s) 0, [id number], 169.7, cm, 11/26/23 15:32:00 EDT, Height/Length Dosing, 62.1, kg, 11/26/23 15:32:00 EDT, Weight Dosing ondansetron 8 mg Dis Tab: See Instructions, DISSOLVE 1 TABLET ON THE TONGUE EVERY 8 HOURS NEEDED FOR NAUSEA AND VOMITING, # 24 tab(s), Refills(s) 0, [id number] 169, cm, 02/18/24 11:55:00 EST, [...] 30 tab(s), Refills(s) 1, Pharmacy: [facility]/pharmacy #[id number], 169, cm, 02/18/24 11:55:00 EST, Height/Length Dosing, 61.8, kg, 02/18/24 11:55:00 EST, Weight Dosing Documented Medications Documented Protonix 40 mg Tab-DR: Oral, 0 Refill(s), Refills(s) 0 Spiriva Respimat 10 ACT 2.5 mcg/inh inhalation aerosol: = 2 puff(s), Inhalation, Daily, Refi (more content not included)... Normal [facility] Comment on above: Result Comment: Elec tronically Signed By: Butch SANDOVAL, Sandoval Frost\.br\Date and Time Signed: 02/25/24 10:51 EST Other Comment: Linda mendosa Attachment - attachment storage system not supported [id number] Can be viewed in source systemMissing Attachment - attachment storage system not supported [id number] Can be viewed in source systemMissing Attachment - attachment storage system not supported [id number] Can be viewed in source systemMissing Attachment - attachment storage system not supported [id number] Can be viewed in source systemMissing Attachment - attachment storage system not supported [id number] Can be viewed in source systemMissing Attachment - attachment storage system not supported [id number] Can be viewed in source systemMissing Attachment - attachment storage system not supported [id number] Can be viewed in source systemMissing Attachment - attachment storage system not supported [id number] Can be viewed in source systemMissing Attachment - attachment storage system not supported [id number] Can be viewed in source systemMissing Attachment - attachment storage system not supported [id number] Can be viewed in source system Ambulatory [...] aerosol) (more content not included)... Normal [facility] Gastroenterology Office/Clin ic Noteon 02-21-2024 Gastroenterology [...] to discuss capsule. (Had one completed at [facility] 2021)- results below Last visit w/ Dr Rae History of Present Illness pt with weight loss, throw up, and diarrhea capsule endoscopy done at [facility] and was found to have stomach going [...] clips were successfully placed (MR conditional). Clip market intelligence consultant: [employer]. There was no bleeding at the end of the maneuver. Exam of the jejunum was otherwise normal. Impression: - Atrophic mucosa. - Jejunal polyp(s). Resected a (more content not included)... Normal [facility] Comment on above: [...] Someone Will Contact You Regarding These Appointments [facility] [place], [place] office, [...] NEEDED FOR NAUSEA AND VOMITING Pickup at [facility]/pharmacy #6177 Unchanged ondansetron (Zofran 4 mg Tab) [...] MOUTH THREE TIMES A DAY Pickup at [facility]/pharmacy #6177 [facility] [address], [place] [phone] Allergies No Known Allergies Problems Ongoing - [...] history of (more content not included)... Normal [facility] Family Medicine Office/Clini c Noteon 02-18-2024 Family Medicine Office/Clinic Note Family Medicine Office/Clinic Note Chief Complaint N&V & Diarrhea HPI Staff Sai is a 53 year old female presenting with diarrhea, vomiting. AMILCAR 11/27/23 pt here for the same reason. Sent home with stool sample supplies. Pt did [place] [facility] [place]/16[place]24 for diarrhea & N&V. Tx'd w/[facility] did order CTE, however pt no [...] neuro consult. her mother has dementia. Ordered: [facility] [place] 2. Maternal family history of dementia (Z81.8: Family history of other mental and behavioral disorders) mother has dementia Ordered[place] [facility] [place] 3. Nausea and [...] 24 tab(s), Refills(s) 0, Pharmacy: [facility]/pharmacy #[id number], 169, cm, 02/18/24 11:55:00 EST, Height/Length Dosing, 61.8, kg, 02/18/24 11:55:00 EST, Weight D... promethazine, See Instructions, TAKE 1 TABLET BY MOUTH THREE TIMES A DAY, # 30 tab(s), Refills(s) 1, Pharmacy: [facility]/pharmacy #6177, 169, cm, 02/18/24 11:55:00 EST, Height/Length [...] Esophagogastroduodenoscopy (04/19 (more content not included)... Normal [facility] Comment on above: [...] start: Years ago. Had capsule done at [facility] and surgery. Dr Tiffani Morales. Constant? Or [...] up, and diarrhea capsule endoscopy done at [facility] and was found to have stomach going [...] Oral, TID, (more content not included)... Normal [facility] Comment on above: [...] to get in, will send [place] [facility] 2. Vomiting (R11.10: Vomiting, unspecified) pt is asking for refill on omeprazole 3. Smoker (F17.200: Nicotine dependence, unspecified, uncomplicated) consider not smoking 4. BMI 21.0-21.9, adult (Z68.21: Body mass index [BMI] 21.0-21.9, adult) BMI education given Orders: lamotrigine, See Instructions, TAKE 1 TABLET BY MOUTH EVERY DAY IN THE AFTERNOON, # 30 tab(s), Refills(s) 0, [id number], 169.7, cm, 10/03/23 9:38:00 EDT, Height/Length Dosing, 62.5, kg, 10/03/23 9:38:00 EDT, Weight Dosing lamotrigine, See Instructions, TAKE 1 TABLET EVERY MORNING, # 30 tab(s), Refills(s) 0, [facility] 169.7, cm, 10/03/23 9:38:00 EDT, Height/Length Dosing, 62.5, kg, 10/03/23 9:38:00 EDT, Weight Dosing lamotrigine, See Instructions, TAKE 1 TABLET BY MOUTH EVERY DAY IN THE AFTERNOON, # 30 tab(s), Refills(s) 0, Pharmacy: [facility] 614[address], 169.7, cm, 11/26/23 15:32:00 EDT, Height/Length Dosing, 62.1, kg, 11/26/23 15:32:00 EDT, Weight Dosing nitrofurantoin, 100 mg = 1 cap(s), Oral, BID, X 7 day(s), # 14 cap(s), Refills(s) 0, [facility], 169.7, cm, 11/26/23 15:32:00 EDT, Height/Length Dosing, 62.1, kg, 11/26/23 15:32:00 EDT, Weight Dosing omeprazole, 20 mg = 1 cap(s), Oral, Daily, # 30 cap(s), Refills(s) 0, Pharmacy: [facility]/pharmacy #6177, 169.7, cm, 10/03/23 9:38:00 EDT, Height/Length Dosing, 62.5, kg, 10/03/23 9:38:00 EDT, Weight Dosing omeprazole, See Instructions, TAKE 1 CAPSULE BY MOUTH EVERY DAY, # 30 cap(s), Refills(s) 0, Pharmacy: [facility], 169.7, cm, 11/26/23 15:32:00 EDT, Height/Length Dosing, [...] tab(s), Or (more content not included)... Normal [facility] Comment on above: [...] hours as needed for Nausea/Vomiting Pickup at [facility]/pharmacy #6177 Unchanged ondansetron (Zofran 4 mg Tab) [...] 2 Puffs Inhalation Every day Pharmacy Information [facility]/pharmacy #6177: [address], [place] [phone] Allergies No Known Allergies Problems Ongoing - [...] you for choosing us for your care[facility] ED Note-Physicianon 10-21-19 ED Note-Physician ED Note-Physician [...] NS 1000 ml Bolus, 1000 mL, IV [id number] [F] 25 mg + Sodium Chloride 0.9% [...] CHANCE SERRANO In 3 days 09/27/[address] [place] [id number] [employer] (1) Additional Instructions: Patient Education Urinary Tract [...] made to ensure accuracy, however, inadvertently computerized tank worker mistakes may be present. Appropriate healthcare PPE [...] to inadequa (more content not included)... Normal [facility] Comment on above: [...] visit: month or so ago Last provider: [facility] Any recent labs: IN ER [...] acel/tetanus adult 10/11/19 (more content not included)... [facility] Comment on above: Result [...] Locations R1: This [facility] performed at[facility] [address] [place] [address], [address] , , [facility] Comment on above: Performed By: #### 2 [id number] ####[facility] [address] [place] [address] CHEMISTRYOrdered By: SYSTEM SYSTEM on 09-24-2023 Albumin [...] that meet specific criteria set forth by [facility]. Epithelial cells.squamous Auto (Urine [...] UA Auto SS Work Phone: Zi 05-08-2022 [facility] Telephone (GASTA5) SAI PINEDA ([id number]) 1970 F Date Time Provider Department 05/08/22 TIFFANI MORALES GASTA5 During your visit today, we recorded the following information about you: Eva Chong 05/08/2022 10:45 AM Signed 05/08/22 Patient calling to see if Dr oMrales will write her a script for Zofran nausea medication strips. [facility] in [place] [phone] Eva Covarrubias, HERNÁN 05/11/2022 10:05 AM Signed [...] Fully Assessed Reason for Visit: Patient Question [5477] Order(s):ondansetron orally disintegrating (ZOFRAN ODT) 8 mg [...] Status:Closed by TIFFANI MORALES on 05/10/22 Normal [facility] COPPER, SERUM or PLASMAon Copper, Serum 129 ug/dL Normal 80-158 [facility] Comment on above: Result Comment: Dete ction Limit = 5 Performed By: #### C OPPER #### [facility] [address] [address] [address] Prince Olivas FATTY ACID PROFILEon 023 a-Linolenic Acid C18:3w3 81 nmol/mL Normal 20-200 [facility] Comment on above: Performed By: #### M MA2 #### [facility] [address] [address] [address] Prince Olivas Arachidic Acid C20:0 31 nmol/mL Normal 8-43 [facility] Comment on above: Performed By: #### Marine MA2 #### [facility] [address] [address] [address] Prince Olivas Arachidonic Acid, C20:4w6 943 nmol/mL Normal 310-1420 [facility] Comment on above: Performed By: #### Marine MA2 #### [facility] [address] [address] [address] Prince Olivas DHA, C22:6w3 85 nmol/mL Normal 45-365 [facility] Comment on above: Performed By: #### M MA2 #### [facility] [address] [address] [address] Prince Olivas Docosenoic Acid C22:1 5 nmol/mL Normal 1-10 [facility] Comment on above: Performed By: #### M MA2 #### [facility] [address] [address] [address] Prince Olivas DPA, C22:5w3 58 nmol/mL Normal 13-75 [facility] Comment on above: Performed By: #### M MA2 #### [facility] [address] [address] [address] Prince Olivas DPA, C22:5w6 18 nmol/mL Normal 6-55 [facility] Comment on above: Performed By: #### Marine CAMPBELL2 #### [facility] [address] [address] [address] Prince Olivas DTA, C22:4w6 28 nmol/mL Normal 10-40 [facility] Comment on above: Performed By: #### Marine CAMPBELL2 #### [facility] [address] [place] [address] Dr. Prince Olivas EER Fatty Acid Profile, See Note Normal [facility] Comment on above: Result Comment: Auth orized individuals can access the [facility] Enhanced Report using the following link: [email or web address] Performed By: #### Marine CAMPBELL2 #### [facility] [address] [place] [address] Dr. Prince Olivas EPA, C20:5w3 90 nmol/mL Normal 8-130 [facility] Comment on above: Performed By: #### Marine CAMPBELL2 #### [facility] [address] [place] [address] Dr. Prince Olivas g-Linolenic Acid C18:3w6 139 nmol/mL Critically high 10-120 [facility] Comment on above: Performed By: #### Marine CAMPBELL2 #### [facility] [address] [address] [address] Prince Olivas v-z-Rsgrbeygh Acid C20:3w6 211 nmol/mL Normal 45-340 [facility] Comment on above: Performed By: #### Marine CAMPBELL2 #### [facility] [address] [place] [address] Dr. Prince Olivas Hexadecenoic Acid C16:1w9 56 nmol/mL Normal 14-95 [facility] Comment on above: Performed By: #### Marine CAMPBELL2 #### [facility] [address] [place] [address] Dr. Prince Olivas Image . Normal [facility] Comment on above: Performed By: #### M MA2 #### [facility] [address] [address] [address] Prince Onealp, Fatty Acids Profile SP See Note Normal [facility] Comment on above: Result Comment: Incr eased concentration of omega-6 gamma- linolenic acid, possibly reflecting dietary artifacts. INTERPRETIVE INFORMATION: Fatty Acids Profile, Essential Ser/Plas This test does not screen for disorders of peroxisomal biogenesis/function. This test was developed and its performance characteristics determined by [employer]. It has not been cleared or approved by the [place] Food and Drug Administration. This test was performed in a CLIA certified laboratory and is intended for clinical purposes. Performed By: #### Marine MA2 #### [facility] [address] [place] [address] Dr. Prince Olivas Lauric Acid C12:0 12 nmol/mL Normal 1-200 [facility] Comment on above: Performed By: #### Marine MA2 #### [facility] [address] [place] [address] Dr. Prince Olivas Linoleic Acid C18:2w6 3844 nmol/mL Normal 5514-3555 [facility] Comment on above: Performed By: #### Marine MA2 #### [facility] [address] [address] [address] Prince Olivas [place] Acid C20:3w9 29 nmol/mL Normal 1-35 [facility] Comment on above: Performed By: #### Marine MA2 #### [facility] [address] [address] [address] Prince Olivas Myristic Acid C14:0 178 nmol/mL Normal 20-520 [facility] Comment on above: Performed By: #### Marine MA2 #### [facility] [address] [place] [address] Dr. Prince Olivas Nervonic Acid C24:1w9 138 nmol/mL Normal 35-145 [facility] Comment on above: Performed By: #### Marine MA2 #### [facility] [address] [place] [address] Dr. Prince Olivas Oleic Acid C18:1w9 2898 nmol/mL Normal 740-3900 [facility] Comment on above: Performed By: #### M MA2 #### [facility] [address] [address] [address] Prince Olivas Palmitic Acid C16:0 3316 nmol/mL Normal 9551-0291 [facility] Comment on above: Performed By: #### M MA2 #### [facility] [address] [address] [address] Prince Olivas Palmitoleic Acid C16:1w7 355 nmol/mL Normal 35-580 [facility] Comment on above: Performed By: #### M MA2 #### [facility] [address] [address] [address] Prince Olivas Stearic Acid C18:0 1072 nmol/mL Normal 280-1250 [facility] Comment on above: Performed By: #### M MA2 #### [facility] [address] [address] [address] Prince Olivas Total Fatty Acids 13.7 mmol/L Normal 4.5-15.0 [facility] Comment on above: Performed By: #### M MA2 #### [facility] [address] [address] [address] Prince Olivas Total Monounsaturated Acid 3.6 mmol/L Normal 0.9-4.7 [facility] Comment on above: Performed By: #### M MA2 #### [facility] [address] [address] [address] Prince Olivas Total Polyunsaturated Acid 5.5 mmol/L Normal 2.1-6.2 [facility] Comment on above: Performed By: #### M MA2 #### [facility] [address] [address] [address] Prince Olivas Total Saturated Acid 4.6 mmol/L Normal 1.5-5.3 [facility] Comment on above: Performed By: #### M MA2 #### [facility] [address] [address] [address] Prince Olivas Total w3 0.31 mmol/L Normal 0.12-0.55 [facility] Comment on above: Performed By: #### M MA2 #### [facility] [address] [address] [address] Prince Olivas Total w6 5.2 mmol/L Normal 1.8-5.7 [facility] Comment on above: Performed By: #### M MA2 #### [facility] [address] [address] [address] Prince Olivas Triene Tetraene Ratio 0.031 Normal 0.004-0.051 [facility] Comment on above: Performed By: #### M MA2 #### [facility] [address] [address] [address] Prince Olivas Vaccenic Acid C18:1w7 149 nmol/mL Normal 50-250 [facility] Comment on above: Performed By: #### M MA2 #### [facility] [address] [address] [address] Prince Olivas VITAMIN Aon 04-06-2022 Vitamin A 54.9 ug/dL Normal 20.1-62.0 [facility] Comment on above: Result Comment: Refe [...] Administration. Performed By: #### M MA2 #### [facility] [address] [address] [address] Prince Olivas VITAMIN Luciano 04-06-2022 Vitamin E (Alpha T) 9.9 mg/L Normal 7.0-25.1 [facility] Comment on above: Performed By: #### Domo HOLLAND #### [facility] [address] [address] [address] Prince Olivas Vitamin E (Gamma T) 2.1 mg/L Normal 0.5-5.5 [facility] Comment on above: Result Comment: Refe rence intervals for alpha and gamma- tocopherol determined from National Health and Nutrition Examination Survey, 6642-7421. Individuals with alpha-tocopherol levels less than 5.0 mg/L are considered vitamin E deficient. Performed By: #### S ELNIUM #### [facility] [address] [place] [address] Dr. Prince Olivas ZINC SERUM OR PLASMAon 04-06 Zinc, Plasma or Serum 75 ug/dL Normal 44-115 [facility] Comment on above: Result Comment: Dete ction Limit = 5 Performed By: #### L IPID, CMP #### [facility] [id number] Prince Olivas CNPNon 04-05-2022 CNPN Telephone (GASTA5) SAI PINEDA ([id number]) 1970 F Date Time Provider Department 04/05/22 [...] Status:Closed by TIFFANI MORALES on 04/05/22 Normal [facility] METHYLMALONIC ACID (MMA)on 0 04-05-2022 Methylmalonic Acid, Serum 498 nmol/L Critically high 0-378 [facility] Comment on above: Performed By: #### M MA2 #### [facility] [address] [place] [address] Dr. Prince Olivas ANES POSTPROC EVALon 023 ANES POSTPROC EVAL HNO ID: [id number] Author: Altagracia Salvador MD Service: ? Author [...] Morales MD; Altagracia Salvador MD; Frederick Chaves APRN.DRILL PUNCH OPERATOR Responsible Provider: Altagracia Salvador MD Anesthesia Type: [...] with this procedure. Documented by Frederick Chaves APRN.DRILL PUNCH OPERATOR 04/04/2022 3:31 PM EST SIGNATURE: Altagracia Salvador MD PATIENT NAME: Sai Pineda DATE: April 04, 2022 TIME: 3:51 PM CSN: [id number] Normal [facility] ANES PRE-OPon 04-04-2022 ANES PRE-OP HNO ID: [id number] Author: Altagracia Salvador MD Service: ? Author Type: Anesthesiologist Type: Anesthesia Preprocedure Evaluation Filed: 04/04/2022 12:56 PM Note Text: ANESTHESIOLOGY DAY OF SURGERY NOTE : 1970 Procedure Information Date/Time: 04/04/22 1300 Scheduled providers: Tiffani Morales MD; Altagracia Salvador MD; Frederick Chaves APRN.DRILL PUNCH OPERATOR Procedure: ENTEROSCOPY Location: Gastroenterology Estimated body mass [...] April 04, 2022 TIME: 12:55 PM CSN: [id number] Normal [facility] ENTEROSCOPYon 04-04-2022 [facility] HISTORY PHYSICALon 3 HISTORY PHYSICAL HNO ID: [id number] Author: Tiffani Morales MD Service: Gastroenterology Author [...] Sai Pineda DATE: 04/04/2022 TIME: 1302 Normal [facility] METHYLMALONIC ACID (MMA)on 0 04-04-2022 Methylmalonic Acid, Serum 397 nmol/L Critically high 0-378 [facility] Comment on above: Performed By: #### M MA2 #### [facility] [address] [address] [address] Prince Olivas NURSING PROGon 04-04-2022 NURSING PROG HNO ID: [id number] Author: Eduardo Harrington RN Service: Nursing Author [...] Electronically Signed By: Eduardo Harrington RN Normal [facility] NURSING PROG HNO ID: [id number] Author: Rima Kirk RN Service: Nursing Author [...] Rima Kirk RN In Department: GASTROENTEROLOGY Normal [facility] SELENIUM, PLASMAon 3 Selenium, Serum/Plasma 124 ug/L Normal 93-198 [facility] Comment on above: Performed By: #### S ELNIUM #### [facility] [address] [place] [address] Dr. Prince Olivas SURGICAL PATHOLOGYon 023 CASE REPORT Normal [facility] Comment on above: Order Comment: Speci men Type: TISSUE SPECIMENOrdering Facility: [facility] Address: [address] [place] [address] Result Comment: Surg ical Pathology Report Case: [id number] Authorizing Provider: Tiffani Morales MD Collected: 04/04/2022 02:57 PM Ordering Location: Gastroenterology Received: 04/04/2022 05:34 PM Pathologist: Gonzalo Lemons MD Specimen: JEJUNUM BIOPSY, polyp: r/o adenoma Performed By: #### S ####[facility] [id number] [address] FINAL DIAGNOSIS Normal [facility] Comment on above: Order Comment: Speci men Type: TISSUE SPECIMENOrdering Facility: [facility] Address: [address] [place] [address] Result Comment: Santosh Saleh ejunum, polyp, biopsy: - Small intestine with gastric heterotopia. - Negative for dysplasia and malignancy. Performed By: #### S ####[facility] [id number] [place] [address] [place] FINAL PERFORMING LAB Normal [facility] Comment on above: Order Comment: Speci men Type: TISSUE SPECIMENOrdering Facility: [facility] Address: [address] [address] Result Comment: Diag nostic interpretation performed at [facility], [address] [place] [address] CLIA# [id number] [employer] Layer: Constantin Quevedo M.D. Performed By: #### S ####[facility] [id number] [address] [place] GROSS DESCRIPTION Normal [facility] Comment on above: Order Comment: Speci men Type: TISSUE SPECIMENOrdering Facility: [facility] Address: [address] [place] [address] Result Comment: A. J EJUNUM BIOPSY Received in formalin is a segment of proctor polypoid tissue measuring 1.2 x 1.0 x 0.4 cm. No stalk is noted. The line of resection is noted. The specimen is bisected and totally submitted in formalin in one cassette. Gross examination performed at [facility], [address] [address] 04/04/2022 10:13 PM Performed By: #### S ####[id number] [place] [address] [place] FOLATE, RBC AND SERUMon 03-18 Folate 7.5 ng/mL Normal >3.0 [facility] Comment on above: Result Comment: A se rum folate concentration of less than 3.1 ng/mL is considered to represent clinical deficiency. Performed By: #### L IPID, CMP #### [facility] [address] [address] [address] Prince Olivas Folate, Hemolysate 297.0 ng/mL Normal Not Estab. [facility] Comment on above: Performed By: #### L IPID, CMP #### [facility] [address] [address] [address] Prince Olivas Folate, RBC 721 ng/mL Normal >498 [facility] Comment on above: Performed By: #### L IPID, CMP #### [facility] [address] [address] [address] Prince Olivas Hematocrit (Bld) [Volume fraction] 41.2 % Normal 34.0-46.6 [facility] Comment on above: Performed By: #### L IPID, CMP #### [facility] [address] [address] [address] Prince Olivas CBC AUTO DIFFon 03-31-2022 BASO # 0.1 103/ul Normal 0.0-0.1 [facility] Comment on above: Performed By: #### L IPID, CMP #### [facility] [address] [place] [address] Dr. Prince Olivas Basophils/100 WBC (Bld) 0.6 % Normal 0.2-2.0 [facility] Comment on above: Performed By: #### L IPID, CMP #### [facility] [address] [place] [address] Dr. Prince Olivas EO # 0.2 103/ul Normal 0.0-0.7 [facility] Comment on above: Performed By: #### L IPID, CMP #### [facility] [address] [place] [address] Dr. Prince Olivas Eosinophils/100 WBC (Bld) 2.9 % Normal 0.9-7.0 [facility] Comment on above: Performed By: #### L IPID, CMP #### [facility] [address] [address] [address] Prince Olivas Erythrocyte distribution width (RBC) [Ratio] 13.2 % Normal 11.0-15.0 [facility] Comment on above: Performed By: #### L IPID, CMP #### [facility] [address] [place] [address] Dr. Prince Olivas Hematocrit (Bld) [Volume fraction] 41.1 % Normal 36.0-48.0 [facility] Comment on above: Performed By: #### L IPID, CMP #### [facility] [address] [place] [address] Dr. Prince Olivas Hemoglobin (Bld) [Mass/Vol] 13.6 g/dL Normal 12.0-16.0 [facility] Comment on above: Performed By: #### L IPID, CMP #### [facility] [address] [place] [address] Dr. Prince Olivas IG # 0.04 10e3/ul Critically high 0.00-0.03 [facility] Comment on above: Performed By: #### L IPID, CMP #### [facility] [address] [place] [address] Dr. Prince Olivas IG % 0.5 % Normal 0.0-0.5 [facility] Comment on above: Performed By: #### L IPID, CMP #### [facility] [address] [place] [address] Dr. Prince Olivas LYMPH # 2.5 103/ul Normal 1.2-3.8 [facility] Comment on above: Performed By: #### L IPID, CMP #### [facility] [address] [place] [address] Dr. Prince Olivas Lymphocytes/100 WBC (Bld) 31.5 % Normal 20.5-60.0 [facility] Comment on above: Performed By: #### L IPID, CMP #### [facility] [address] [place] [address] Dr. Prince Olivas MANUAL DIFF REQ NO Normal [facility] Comment on above: Performed By: #### L IPID, CMP #### [facility] [address] [place] [address] Dr. Prince Olivas MCH (RBC) [Entitic mass] 30.5 pg Normal 26.7-34.0 [facility] Comment on above: Performed By: #### L IPID, CMP #### [facility] [address] [place] [address] Dr. Prince Olivas MCHC (RBC) [Mass/Vol] 33.1 g/dL Normal 29.9-35.2 [facility] Comment on above: Performed By: #### L IPID, CMP #### [facility] [address] [place] [address] Dr. Prince Olivas MCV (RBC) [Entitic vol] 92.2 fL Normal 81.0-99.0 [facility] Comment on above: Performed By: #### L IPID, CMP #### [facility] [address] [place] [address] Dr. Prince Olivas MONO # 0.6 103/ul Normal 0.3-0.8 [facility] Comment on above: Performed By: #### L IPID, CMP #### [facility] [address] [place] [address] Dr. Prince Olivas Monocytes/100 WBC (Bld) 7.0 % Normal 1.7-12.0 [facility] Comment on above: Performed By: #### L IPID, CMP #### [facility] [address] [place] [address] Dr. Prince Olivas NEUT # 4.5 103/ul Normal 1.4-6.5 [facility] Comment on above: Performed By: #### L IPID, CMP #### [facility] [address] [place] [address] Dr. Prince Olivas Neutrophils/100 WBC (Bld) 57.5 % Normal 43.0-75.0 [facility] Comment on above: Performed By: #### L IPID, CMP #### [facility] [address] [place] [address] Dr. Prince Olivas Platelet mean volume (Bld) [Entitic vol] 11.5 fL Normal 9.5-13.5 [facility] Comment on above: Performed By: #### L IPID, CMP #### [facility] [address] [place] [address] Dr. Prince Olivas PLT 224 103/ul Normal 150-450 [facility] Comment on above: Performed By: #### L IPID, CMP #### [facility] [address] [place] [address] Dr. Prince Olivas RBC 4.46 106/ul Normal 4.20-5.40 [facility] Comment on above: Performed By: #### L IPID, CMP #### [facility] [address] [place] [address] Dr. Prince Olivas WBC 7.9 103/ul Normal 4.0-11.0 [facility] Comment on above: Performed By: #### L IPID, CMP #### [facility] [address] [place] [address] Dr. Prince Olivas CRPon 03-31-2022 CRP [Mass/Vol] mg/L Normal <=1.0 [facility] Comment on above: Performed By: #### C OPPER #### [facility] [address] [place] [address] Dr. Prince Olivas FERRITINon 03-31-2022 Ferritin [Mass/Vol] 99.0 ng/mL Normal 8.0-252.0 [facility] Comment on above: Performed By: #### F ERR, VITB12, VITAD, FETIBC #### [facility] [address] [place] [address] Dr. Prince Olivas IRON AND TIBCon 03-31-2022 % SATURATION 29.3 % Normal [facility] Comment on above: Performed By: #### F ERR, VITB12, VITAD, FETIBC #### [facility] [address] [place] [address] Dr. Prince Olivas Iron [Mass/Vol] 90.0 ug/dL Normal 50.0-170.0 [facility] Comment on above: Performed By: #### F ERR, VITB12, VITAD, FETIBC #### [facility] [address] [place] [address] Dr. Prince Olivas TIBC DIRECT 307.0 ug/dL Normal 250.0-450.0 [facility] Comment on above: Performed By: #### F ERR, VITB12, VITAD, FETIBC #### [facility] [address] [place] [address] Dr. Prince Olivas MAGNESIUMon 03-31-2022 Magnesium [Mass/Vol] 2.0 mg/dL Normal 1.8-2.4 [facility] Comment on above: Performed By: #### C OPPER #### [facility] [facility] [address] [place] [address] Dr. Prince Olivas PHOSPHORUSon 03-31-2022 Phosphate [Mass/Vol] 3.6 mg/dL Normal 2.6-4.7 [facility] Comment on above: Performed By: #### C OPPER #### [facility] [address] [place] [address] Dr. Prince Olivas PROF 14(COMP METB)on 023 Albumin [Mass/Vol] 3.9 g/dL Normal 3.4-5.0 [facility] Comment on above: Performed By: #### C OPPER #### [facility] [address] [place] [address] Dr. Prince Olivas Albumin/Globulin [Mass ratio] 1.3 {ratio} Normal [facility] Comment on above: Performed By: #### C OPPER #### [facility] [address] [place] [address] Dr. Prince Olivas ALP [Catalytic activity/Vol] 75 U/L Normal 46-116 [facility] Comment on above: Performed By: #### C OPPER #### [facility] [address] [place] [address] Dr. Prince Olivas ALT [Catalytic activity/Vol] 19 U/L Normal 14-59 [facility] Comment on above: Performed By: #### C OPPER #### [facility] [address] [place] [address] Dr. Prince Olivas Anion gap [Moles/Vol] 11.3 mmol/L Normal [facility] Comment on above: Performed By: #### C OPPER #### [facility] [address] [place] [address] Dr. Prince Olivas AST [Catalytic activity/Vol] 19 U/L Normal 15-37 [facility] Comment on above: Performed By: #### C OPPER #### [facility] [address] [address] [address] Prince Olivas Bilirubin [Mass/Vol] 0.3 mg/dL Normal 0.2-1.0 [facility] Comment on above: Performed By: #### C OPPER #### [facility] [address] [place] [address] Dr. Prince Olivas Calcium [Mass/Vol] 9.0 mg/dL Normal 8.5-10.1 [facility] Comment on above: Performed By: #### C OPPER #### [facility] [address] [place] [address] Dr. Prince Olivas Chloride [Moles/Vol] 105 mmol/L Normal 98-107 [facility] Comment on above: Performed By: #### C OPPER #### [facility] [address] [place] [address] Dr. Prince Olivas CO2 [Moles/Vol] 28.9 mmol/L Normal 21.0-32.0 [facility] Comment on above: Performed By: #### C OPPER #### [facility] [address] [place] [address] Dr. Prince Olivas Creatinine [Mass/Vol] 0.79 mg/dL Normal 0.55-1.02 [facility] Comment on above: Performed By: #### C OPPER #### [facility] [address] [place] [address] Dr. Prince Olivas EGFR-AF ERITREAN >60 Normal >=60 [facility] Comment on above: Performed By: #### C OPPER #### [facility] [address] [place] [address] Dr. Prince Olivas EGFR-NON AF ERITREAN >60 Normal >=60 [facility] Comment on above: Performed By: #### C OPPER #### [facility] [address] [place] [address] Dr. Prince Olivas Globulin (S) [Mass/Vol] 3.0 g/dL Normal [facility] Comment on above: Performed By: #### C OPPER #### [facility] [address] [place] [address] Dr. Prince Olivas Glucose [Mass/Vol] 91 mg/dL Normal 74-106 [facility] Comment on above: Performed By: #### C OPPER #### [facility] [address] [address] [address] Prince Olivas Potassium [Moles/Vol] 4.2 mmol/L Normal 3.5-5.1 [facility] Comment on above: Performed By: #### C OPPER #### [facility] [address] [address] [address] Prince Olivas Protein [Mass/Vol] 6.9 g/dL Normal 6.4-8.2 [facility] Comment on above: Performed By: #### C OPPER #### [facility] [address] [place] [address] Dr. Prince Olivas Sodium [Moles/Vol] 141 mmol/L Normal 136-145 [facility] Comment on above: Performed By: #### C OPPER #### [facility] [address] [place] [address] Dr. Prince Olivas Urea nitrogen [Mass/Vol] 10.0 mg/dL Normal 7.0-18.0 [facility] Comment on above: Performed By: #### C OPPER #### [facility] [address] [place] [address] Dr. Prince Olivas Urea nitrogen/Creatinine [Mass ratio] 12.7 mg/mg Normal [facility] Comment on above: Performed By: #### C OPPER #### [facility] [address] [place] [address] Dr. Prince Olivas PROTIMEon 03-31-2022 INR Coag (PPP) [Relative time] 0.94 {INR} Normal [facility] Comment on above: Performed By: #### M MA2 #### [facility] [address] [place] [address] Dr. Prince Olivas INR GUIDELINES SEE BELOW Normal [facility] Comment on above: Result Comment: BRIANNA RED INR: 2.0 - 3.0 CONDITIONS NOT LISTED BELOW 2.5 - 3.5 FOR PROSTHETIC HEART VALVE REPLACEMENT 2.5 - 3.5 RECURRENT THROMBOSIS Performed By: #### M MA2 #### [facility] [address] [place] [address] Dr. Prince Olivas PT Coag (PPP) [Time] 10.0 s Normal 9.0-11.6 [facility] Comment on above: Performed By: #### M MA2 #### [facility] [address] [place] [address] Dr. Prince Olivas TRIGLYCERIDEon 03-31-2022 Triglyceride [Mass/Vol] 103 mg/dL Normal <=150 [facility] Comment on above: Performed By: #### C OPPER #### [facility] [address] [place] [address] Dr. Prince Olivas VITAMIN B12on 03-31-2022 Cobalamin (Vitamin B12) [Mass/Vol] 259.0 pg/mL Normal 193.0-986.0 [facility] Comment on above: Performed By: #### F ERR, VITB12, VITAD, FETIBC #### [facility] [address] [place] [address] Dr. Prince Olivas VITAMIN D 25 OHon 03-31-2022 VIT D 25-OH 49.0 ng/mL Normal [facility] Comment on above: Performed By: #### F ERR, VITB12, VITAD, FETIBC #### [facility] [address] [place] [address] Dr. Prince Olivas VIT D RANGES SEE BELOW Normal [facility] Comment on above: Result Comment: <20 ng/mL Vit D deficient 20 - <30 ng/mL Vit D insufficient 30 - 100 ng/mL Vit D sufficient >100 ng/mL Potential Toxicity Performed By: #### F ERR, VITB12, VITAD, FETIBC #### [facility] [address] [place] [address] Dr. Prince Olivas CBC AUTO DIFFon 03-28-2022 BASO # 0.1 103/ul Normal 0.0-0.1 [facility] Comment on above: Performed By: #### S ELNIUM #### [facility] [address] [place] [address] Dr. Prince Olivas Basophils/100 WBC (Bld) 0.6 % Normal 0.2-2.0 [facility] Comment on above: Performed By: #### S ELNIUM #### [facility] [address] [place] [address] Dr. Prince Olivas EO # 0.2 103/ul Normal 0.0-0.7 [facility] Comment on above: Performed By: #### S ELNIUM #### [facility] [address] [place] [address] Dr. Prince Olivas Eosinophils/100 WBC (Bld) 2.4 % Normal 0.9-7.0 [facility] Comment on above: Performed By: #### S ELNIUM #### [facility] [address] [place] [address] Dr. Prince Olivas Erythrocyte distribution width (RBC) [Ratio] 13.2 % Normal 11.0-15.0 [facility] Comment on above: Performed By: #### S ELNIUM #### [facility] [address] [place] [address] Dr. Prince Olivas Hematocrit (Bld) [Volume fraction] 44.3 % Normal 36.0-48.0 [facility] Comment on above: Performed By: #### S ELNIUM #### [facility] [address] [place] [address] Dr. Prince Olivas Hemoglobin (Bld) [Mass/Vol] 13.8 g/dL Normal 12.0-16.0 [facility] Comment on above: Performed By: #### S ELNIUM #### [facility] [address] [place] [address] Dr. Prince Olivas IG # 0.02 10e3/ul Normal 0.00-0.03 [facility] Comment on above: Performed By: #### S ELNIUM #### [facility] [address] [place] [address] Dr. Prince Olivas IG % 0.2 % Normal 0.0-0.5 [facility] Comment on above: Performed By: #### S ELNIUM #### [facility] [address] [place] [address] Dr. Prince Olivas LYMPH # 3.1 103/ul Normal 1.2-3.8 [facility] Comment on above: Performed By: #### S ELNIUM #### [facility] [address] [place] [address] Dr. Prince Olivas Lymphocytes/100 WBC (Bld) 34.8 % Normal 20.5-60.0 [facility] Comment on above: Performed By: #### S ELNIUM #### [facility] [address] [place] [address] Dr. Prince Olivas MANUAL DIFF REQ NO Normal [facility] Comment on above: Performed By: #### S ELNIUM #### [facility] [address] [place] [address] Dr. Prince Olivas MCH (RBC) [Entitic mass] 30.5 pg Normal 26.7-34.0 [facility] Comment on above: Performed By: #### S ELNIUM #### [facility] [address] [place] [address] Dr. Prince Olivas MCHC (RBC) [Mass/Vol] 31.2 g/dL Normal 29.9-35.2 [facility] Comment on above: Performed By: #### S ELNIUM #### [facility] [address] [place] [address] Dr. Prince Olivas MCV (RBC) [Entitic vol] 98.0 fL Normal 81.0-99.0 [facility] Comment on above: Performed By: #### S ELNIUM #### [facility] [address] [place] [address] Dr. Prince Olivas MONO # 0.5 103/ul Normal 0.3-0.8 [facility] Comment on above: Performed By: #### S ELNIUM #### [facility] [address] [place] [address] Dr. Prince Olivas Monocytes/100 WBC (Bld) 6.0 % Normal 1.7-12.0 [facility] Comment on above: Performed By: #### S ELNIUM #### [facility] [address] [place] [address] Dr. Prince Olivas NEUT # 5.0 103/ul Normal 1.4-6.5 [facility] Comment on above: Performed By: #### S ELNIUM #### [facility] [address] [address] [address] Prince Olivas Neutrophils/100 WBC (Bld) 56.0 % Normal 43.0-75.0 [facility] Comment on above: Performed By: #### S ELNIUM #### [facility] [address] [address] [address] Prince Olivas Platelet mean volume (Bld) [Entitic vol] 11.5 fL Normal 9.5-13.5 [facility] Comment on above: Performed By: #### S ELVETOUM #### [facility] [address] [place] [address] Dr. Prince Olivas PLT 221 103/ul Normal 150-450 [facility] Comment on above: Performed By: #### S ELNIUM #### [facility] [address] [place] [address] Dr. Prince Olivas RBC 4.52 106/ul Normal 4.20-5.40 [facility] Comment on above: Performed By: #### S ELNIUM #### [facility] [address] [place] [address] Dr. Prince Olivas WBC 8.9 103/ul Normal 4.0-11.0 [facility] Comment on above: Performed By: #### S ELNIUM #### [facility] [address] [address] [address] Prince Pinon 03-28-2022 KISHANN Telephone (JAMIE) SAI PINEDA ([id number]) 1970 F Date Time Provider Department 03/28/22 EDUARDO HARRINGTON GASTRIC During your visit today, we recorded the following information about you: Eduardo Harrington RN 03/28/2022 3:52 PM Signed Attempted to reach the patient at the contact number that they provided [phone] (home) . Unable to speak with patient so without identifying the patient the following information was left on their voice mail: Date of procedure, location and report time A message was left informing the patient/patient marketing sales representative they must have a responsible adult [...] Number to call with questions or concerns [phone] Number to call to cancel their procedure [phone] Eduadro Harrington RN Allergies As of Date: 03/28/2022 (No Known Allergies) Date Reviewed: 01/01/2022 Reviewed by: Juan Carlos Saucedo LPN - Fully Assessed Reason for Visit: Appointment Confirmation [[id number]] Prescriptions as of 03/28/2022 - prochlorperazine (COMPAZINE) [...] Status:Closed by EDUARDO HARRINGTON on 03/28/22 Normal [facility] PROF 14(COMP METB)on 023 Albumin [Mass/Vol] 4.2 g/dL Normal 3.4-5.0 [facility] Comment on above: Performed By: #### L IPID, CMP #### [facility] [address] [place] [address] Dr. Prince Olivas Albumin/Globulin [Mass ratio] 1.4 {ratio} Normal [facility] Comment on above: Performed By: #### L IPID, CMP #### [facility] [address] [place] [address] Dr. Prince Olivas ALP [Catalytic activity/Vol] 86 U/L Normal 46-116 [facility] Comment on above: Performed By: #### L IPID, CMP #### [facility] [address] [place] [address] Dr. Prince Olivas ALT [Catalytic activity/Vol] 13 U/L Critically low 14-59 [facility] Comment on above: Performed By: #### L IPID, CMP #### [facility] [address] [place] [address] Dr. Prince Olivas Anion gap [Moles/Vol] 9.7 mmol/L Normal [facility] Comment on above: Performed By: #### L IPID, CMP #### [facility] [address] [place] [address] Dr. Prince Olivas AST [Catalytic activity/Vol] 15 U/L Normal 15-37 [facility] Comment on above: Performed By: #### L IPID, CMP #### [facility] [address] [place] [address] Dr. Prince Olivas Bilirubin [Mass/Vol] 0.2 mg/dL Normal 0.2-1.0 [facility] Comment on above: Performed By: #### L IPID, CMP #### [facility] [address] [place] [address] Dr. Prince Olivas Calcium [Mass/Vol] 9.2 mg/dL Normal 8.5-10.1 [facility] Comment on above: Performed By: #### L IPID, CMP #### [facility] [address] [place] [address] Dr. Prince Olivas Chloride [Moles/Vol] 102 mmol/L Normal 98-107 [facility] Comment on above: Performed By: #### L IPID, CMP #### [facility] [address] [place] [address] Dr. Prince Olivas CO2 [Moles/Vol] 28.9 mmol/L Normal 21.0-32.0 [facility] Comment on above: Performed By: #### L IPID, CMP #### [facility] [address] [place] [address] Dr. Prince Olivas Creatinine [Mass/Vol] 0.81 mg/dL Normal 0.55-1.02 [facility] Comment on above: Performed By: #### L IPID, CMP #### [facility] [address] [place] [address] Dr. Prince Olivas EGFR-AF ERITREAN >60 Normal >=60 [facility] Comment on above: Performed By: #### L IPID, CMP #### [facility] [address] [place] [address] Dr. Prince Olivas EGFR-NON AF ERITREAN >60 Normal >=60 [facility] Comment on above: Performed By: #### L IPID, CMP #### [facility] [address] [place] [address] Dr. Prince Olivas Globulin (S) [Mass/Vol] 3.1 g/dL Normal [facility] Comment on above: Performed By: #### L IPID, CMP #### [facility] [address] [place] [address] Dr. Prince Olivas Glucose [Mass/Vol] 74 mg/dL Normal 74-106 [facility] Comment on above: Performed By: #### L IPID, CMP #### [facility] [address] [place] [address] Dr. Prince Olivas Potassium [Moles/Vol] 4.1 mmol/L Normal 3.5-5.1 [facility] Comment on above: Performed By: #### L IPID, CMP #### [facility] [address] [place] [address] Dr. Prince Olivas Protein [Mass/Vol] 7.3 g/dL Normal 6.4-8.2 [facility] Comment on above: Performed By: #### L IPID, CMP #### [facility] [address] [place] [address] Dr. Prince Olivas Sodium [Moles/Vol] 138 mmol/L Normal 136-145 [facility] Comment on above: Performed By: #### L IPID, CMP #### [facility] [address] [place] [address] Dr. Prince Olivas Urea nitrogen [Mass/Vol] 11.0 mg/dL Normal 7.0-18.0 [facility] Comment on above: Performed By: #### L IPID, CMP #### [facility] [address] [place] [address] Dr. Prince Olivas Urea nitrogen/Creatinine [Mass ratio] 13.6 mg/mg Normal [facility] Comment on above: Performed By: #### L IPID, CMP #### [facility] [address] [place] [address] Dr. Prince Olivas TSHon 03-28-2022 TSH 0.948 uIU/mL Normal 0.358-3.740 [facility] Comment on above: Performed By: #### L IPID, CMP #### [facility] [address] [place] [address] Dr. Prince Olivas VIT B12 AND FOLATEon 023 Cobalamin (Vitamin B12) [Mass/Vol] 260.0 pg/mL Normal 193.0-986.0 [facility] Comment on above: Performed By: #### C OPPER #### [facility] [address] [place], [place] [address] Dr. Prince Olivas FOLATE 7.90 ng/mL Critically low 8.60-58.90 [facility] Comment on above: Performed By: #### C OPPER #### [facility] [id number] Prince Oliavs NM GASTRIC EMPTYING SOLIDon 02-05-2022 NM GASTRIC EMPTYING SOLID * * *Final Report* * * DATE OF EXAM: Feb 05 2022 12:26PM [facility] 0017 - NM GASTRIC EMPTYING SOLID [...] rate of gastric emptying of solid meal. Privacy Specialist: PSCB Transcribe Date/Time: Feb 05 2022 1:36P Dictated by : SHER RODRIGUEZ MD This examination was interpreted and the report reviewed and electronically signed by: RENATO PATEL MD on Feb 05 2022 2:03PM EST [id number] Normal [facility] 01-05-2022 [facility] Telephone (GAPRA3) SAI PINEDA ([id number]) 1970 F Date Time Provider Department 01/05/22 [...] Encounter Status:Closed by TIFFANI MORALES on 01/05/22 [facility] 01-03-2022 CNPN Telephone (GASTMN) SAI PINEDA ([id number]) 1970 F Date Time Provider Department 01/03/22 ANASTASIYA MOSQUEDA GASTOK During your visit today, we recorded the following information about you: Anastasiya Mosqueda PA-C 01/03/2022 10:19 AM Signed EGD results discussed with patient as requested, pathology still pending. Will reach out to patient once resulted. Red flags for in person care discussed. GRECIA [place]na [facility] [place]/05/2022 10:02 AM Signed Patient requests return call [phone] [facility] Allergies As of Date: 01/03/2022 (No Known [...] Encounter Status:Closed [facility] Telephone (DDQ) SAI PINEDA ([id number]) 1970 F Date Time Provider Department 01/02/22 [...] Encounter Status:Closed by LEYDI HUIZAR on 01/02/22 [facility] ANES POSTPROC EVALon 022 ANES POSTPROC EVAL HNO ID: [id number] Author: Sher Hudson MD Service: ? Author [...] January 01, 2022 TIME: 5:13 PM CSN: [id number] Normal [facility] ANES PRE-OPon 01-01-2022 ANES PRE-OP HNO ID: [id number] Author: Sher Hudson MD Service: ? Author Type: Anesthesiologist Type: Anesthesia Preprocedure Evaluation Filed: 01/01/2022 3:42 PM Note Text: ANESTHESIOLOGY DAY OF SURGERY NOTE : 1970 Procedure Information Date/Time: 01/01/22 1600 Scheduled providers: Tiffani Morales MD; Sher Hudson MD; Kirsten Dalton APRN.[employer]LL [employer]CH OPERATOR Procedure: EGD DIAGNOSTIC Location: Gastroenterology Estimated body [...] January 01, 2022 TIME: 3:42 PM CSN: [id number] Normal [facility] EGD DIAGNOSTICon 01-01-2022 [facility] HISTORY PHYSICALon HISTORY PHYSICAL HNO ID: [id number] Author: Tiffani Morales MD Service: Gastroenterology Author [...] Sai Guerrero DATE: 01/01/2022 TIME: 1600 Normal [facility] NURSING PROGon 01-01-2022 NURSING PROG HNO ID: [id number] Author: Juan Carlos Saucedo LPN Service: ? [...] Signed By: Juan Carlos Saucedo LPN Normal [facility] NURSING PROG HNO ID: [id number] Author: Rima Coleman RN Service: ? Author [...] Rima Coleman RN In Department: GASTROENTEROLOGY Normal [facility] SURGICAL PATHOLOGYon CASE REPORT [facility] Comment on above: Order Comment: Speci men Type: TISSUE SPECIMENOrdering Facility: [facility] Address: [address] [place] [address] Result Comment: Surg [facility] Pathology Report Case: [id number] Authorizing Provider: Tiffani Morales MD Collected: 01/01/2022 04:13 PM Ordering Location: Gastroenterology Received: 01/01/2022 08:38 PM Pathologist: Jyotsna Cartwright MD Specimens: A) - DUODENUM BIOPSY, r/o celiac B) - STOMACH BIOPSY, r/o h. pylori C) - STOMACH (GASTRIC) POLYP BIOPSY, r/o adenoma Performed By: #### S ####[facility] [id number] [address] DIAGNOSIS COMMENT Normal [facility] Comment on above: Order Comment: Matai urbano Type: TISSUE SPECIMENOrdering Facility: [facility] Address: [address] [place] [address] Result Comment: A. A denovirus stain is negative for viral inclusions. Dr Valorie Jaimes has reviewed this part of the case and concurs. Laboratory Developed Test (LDT) Disclaimer: Performance characteristics of immunohistochemical, immunofluorescent and chromogenic in-situ hybridization tests have been determined by the performing laboratory within [facility]???s Lul Gandhi [facility] Pathology and Laboratory Medicine [place] ([facility], [facility], [facility] or [facility]) in a manner consistent with CLIA requirements. One or more of these tests have not been cleared or approved by the FDA. [facility] is regulated under CLIA as qualified to perform high-complexity testing. These tests are used for clinical purposes. They should not be regarded as investigational or for research. Positive and negative controls stain appropriately. Performed By: #### S ####[facility] [id number] [address] FINAL DIAGNOSIS Normal [facility] Comment on above: Order Comment: Matai urbano Type: TISSUE SPECIMENOrdering Facility: [facility] Address: [address] [place] [address] Result Comment: A. D uodenum, biopsy: - Incidental and minute tubular adenoma, negative for high grade dysplasia. See comment. - Duodenal mucosa with no diagnostic alterations. B. Stomach, biopsy: - Oxyntic and antral mucosa with no diagnostic alteration. - No morphologic evidence of H. Pylori microorganisms. C. Stomach, polypectomy: - Hyperplastic polyp. Performed By: #### S ####[facility] [id number] [address] OF [facility] FINAL PERFORMING LAB Normal [facility] Comment on above: Order Comment: Speci men Type: TISSUE SPECIMENOrdering Facility: [facility] Address: [address] [place] [address] Result Comment: Diag nostic interpretation performed at [facility], [address] [place] [address] CLIA# [id number] [employer] Layer: Constantin Quevedo M.D. Performed By: #### S ####[facility] [id number] [address] GROSS DESCRIPTION Normal [facility] Comment on above: Order Comment: Speci men Type: TISSUE SPECIMENOrdering Facility: [facility] Address: [address] [place] [address] Result Comment: A. D UODENUM BIOPSY Received [...] in one cassette. Gross examination performed at [facility], [address] [place] [address] TTN 01/02/2022 12:06 AM Performed By: #### S ####[facility] [id number] [address] [place] Upper GI endoscopyon 10-17-2 022 Upper GI endoscopy A31 Gastrointestinal Endoscopy Patient Name: Sai Guerrero Procedure Date: 01/01/2022 3:37 PM Date of : 1970 Admit Type: Outpatient Age: 51 Room: [address] Gender: Female Note Status: Finalized [...] the patient. 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 All rights reserved. The codes documented in this report are preliminary and upon log hauler review may be revised to meet current compliance requirements. Attending Participation: I personally performed the entire procedure. Scope In: 4:09:57 PM Scope Out: 4:21:34 PM MD Tiffani Camargo MD 01/01/2022 4:34:18 PM This report has been signed electronically by Tiffani Morales MD Number of Addenda: 0 Note Initiated On: 01/01/2022 3:37 PM Normal [facility] 12-28-2021 [facility] Telephone (GAPRA3) SAI WELLS ([id number]) 1970 F Date Time Provider Department 12/28/21 [...] have family/friend present for procedure transport home:Patient/patient marketing sales representative was told that if they do [...] area. Any barriers to Patient learning: Patient/Patient Child Care Attendant School responded appropriately on phone. Type of instruction given: Verbal by telephone contact. Jose Roberto Vysa RN Allergies As of Date: 12/28/2021 (No [...] Status:Closed by JOSE ROBERTO VYAS on 12/28/21 [facility] SIA WELLS ([id number]) 1970 F Date Time Provider Department 12/25/21 [...] Allergies) Date Reviewed: 11/11/2012 Reviewed by: Merry Alfaor Ma - Fully Assessed Reason for Visit: [...] Encounter Status:Closed by RIMA GERARD on 12/25/21 [facility] CNPNon 12-18-2021 [facility] Telephone (GAPRA3) SAI WELLS ([id number]) 1970 F Date Time Provider Department 12/18/21 BHUPINDER CARREON GAPRA3 During your visit today, we recorded the following information about you: Bhupinder Carreon MA 12/18/2021 10:51 AM Signed Attempted to reach the patient at the contact number that they provided [phone] (home) . Unable to speak with patient [...] Encounter Status:Closed by BHUPINDER CARREON on 12/18/21 [facility] 12-13-2021 [facility] Telephone (SHAREEMN) SAI WELLS ([id number]) 1970 F Date Time Provider Department 12/13/[address] [facility] During your visit today, we recorded the following information about you: Elizabeth Jimenez [facility] 12/13/2021 11:20 AM Signed Received a call from patient's health agency concerning virtual visit set up with you today at 11 - Patient has not registered for [email or web address] (having trouble accessing her email) AND they want to know if you will do a phone visit instead Was told this was an urgent request from the referring doctor's office - the visit was scheduled thru the Referring Physician office There are no records found for this patient AND I attempted to pull records thru Care Everywhere Patient's phone [phone] [facility] 12/13/2021 12:33 PM Signed Spoke to patient's daughter - she will contact the [employer] support line to assist with setting up patient's [employer] AND assist with set up for virtual visit tomorrow morning Elizabeth Jimenez [facility] 12/14/2021 12:34 PM Signed Patient phoned again unable to connect with you via [email or web address] Okay to schedule phone visit tomorrow? [phone] [facility] 12/14/2021 1:32 PM Signed Patient scheduled for phone visit Dec 15 at 11 am - patient instructed not to screen her calls at the time of the visit AND to answer her phone Elizabeth [facility] 12/15/2021 11:46 AM Addendum Patient called the office stating you did not phone her for her 11 am appt today- she confirmed the phone number on file computer help desk specialist checked the patient in as arrived you should be able to call her back without rescheduling the time [phone] [facility] Allergies As of Date: 12/13/2021 (No Known [...] Status:Closed by ELIZABETH RODRIGUEZ on 12/13/21 Normal [facility] BNPon 12-11-2021 Natriuretic peptide B (Bld) [Mass/Vol] 134.0 pg/mL Normal <=900.0 [facility] Comment on above: Performed By: #### M MA2 #### [facility] [address] [place] [address] Dr. Prince Olivas CBC AUTO DIFFon 12-11-2021 BASO # 0.0 103/ul Normal 0.0-0.1 [facility] Comment on above: Performed By: #### L IPID, CMP #### [facility] [address] [place] [address] Dr. Prince Olivas Basophils/100 WBC (Bld) 0.4 % Normal 0.2-2.0 [facility] Comment on above: Performed By: #### L IPID, CMP #### [facility] [address] [place] [address] Dr. Prince Olivas EO # 0.0 103/ul Normal 0.0-0.7 [facility] Comment on above: Performed By: #### L IPID, CMP #### [facility] [address] [place] [address] Dr. Prince Olivas Eosinophils/100 WBC (Bld) 0.3 % Critically low 0.9-7.0 [facility] Comment on above: Performed By: #### L IPID, CMP #### [facility] [address] [place] [address] Dr. Prince Olivas Erythrocyte distribution width (RBC) [Ratio] 13.1 % Normal 11.0-15.0 [facility] Comment on above: Performed By: #### L IPID, CMP #### [facility] [address] [place] [address] Dr. Prince Olivas Hematocrit (Bld) [Volume fraction] 45.9 % Normal 36.0-48.0 [facility] Comment on above: Performed By: #### L IPID, CMP #### [facility] [address] [place] [address] Dr. Prince Olivas Hemoglobin (Bld) [Mass/Vol] 15.3 g/dL Normal 12.0-16.0 [facility] Comment on above: Performed By: #### L IPID, CMP #### [facility] [address] [place] [address] Dr. Prince Olivas IG # 0.04 10e3/ul Critically high 0.00-0.03 [facility] Comment on above: Performed By: #### L IPID, CMP #### [facility] [address] [place] [address] Dr. Prince Olivas IG % 0.4 % Normal 0.0-0.5 [facility] Comment on above: Performed By: #### L IPID, CMP #### [facility] [address] [address] [address] Prince Olivas LYMPH # 1.9 103/ul Normal 1.2-3.8 [facility] Comment on above: Performed By: #### L IPID, CMP #### [facility] [address] [address] [address] Prince Olivas Lymphocytes/100 WBC (Bld) 17.0 % Critically low 20.5-60.0 [facility] Comment on above: Performed By: #### L IPID, CMP #### [facility] [address] [place] [address] Dr. Prince Olivas MANUAL DIFF REQ NO Normal [facility] Comment on above: Performed By: #### L IPID, CMP #### [facility] [address] [place] [address] Dr. Prince Olivas MCH (RBC) [Entitic mass] 31.4 pg Normal 26.7-34.0 [facility] Comment on above: Performed By: #### L IPID, CMP #### [facility] [address] [place] [address] Dr. Prince Olivas MCHC (RBC) [Mass/Vol] 33.3 g/dL Normal 29.9-35.2 [facility] Comment on above: Performed By: #### L IPID, CMP #### [facility] [address] [place] [address] Dr. Prince Olivas MCV (RBC) [Entitic vol] 94.3 fL Normal 81.0-99.0 [facility] Comment on above: Performed By: #### L IPID, CMP #### [facility] [address] [place] [address] Dr. Prince Olivas MONO # 0.6 103/ul Normal 0.3-0.8 [facility] Comment on above: Performed By: #### L IPID, CMP #### [facility] [address] [place] [address] Dr. Prince Olivas Monocytes/100 WBC (Bld) 5.6 % Normal 1.7-12.0 [facility] Comment on above: Performed By: #### L IPID, CMP #### [facility] [address] [place] [address] Dr. Prince Olivas NEUT # 8.3 103/ul Critically high 1.4-6.5 [facility] Comment on above: Performed By: #### L IPID, CMP #### [facility] [address] [place] [address] Dr. Prince Olivas Neutrophils/100 WBC (Bld) 76.3 % Critically high 43.0-75.0 [facility] Comment on above: Performed By: #### L IPID, CMP #### [facility] [address] [place] [address] Dr. Prince Olivas Platelet mean volume (Bld) [Entitic vol] 12.1 fL Normal 9.5-13.5 [facility] Comment on above: Performed By: #### L IPID, CMP #### [facility] [address] [place] [address] Dr. Prince Olivas PLT 204 103/ul Normal 150-450 [facility] Comment on above: Performed By: #### L IPID, CMP #### [facility] [address] [place] [address] Dr. Prince Olivas RBC 4.87 106/ul Normal 4.20-5.40 [facility] Comment on above: Performed By: #### L IPID, CMP #### [facility] [address] [place] [address] Dr. Prince Olivas WBC 10.9 103/ul Normal 4.0-11.0 [facility] Comment on above: Performed By: #### L IPID, CMP #### [facility] [address] [place] [address] Dr. Prince Olivas LACTATE/LACTIC ACIDon 2021 Lactate [Moles/Vol] 1.9 mmol/L Normal 0.4-1.9 [facility] Comment on above: Performed By: #### S ELNIUM #### [facility] [address] [place] [address] Dr. Prince Olivas LIPASEon 12-11-2021 Lipase [Catalytic activity/Vol] 49.0 U/L Critically low 73.0-393.0 [facility] Comment on above: Performed By: #### M MA2 #### [facility] [address] [address] [address] Prince Olivas PROF 14(COMP METB)on 022 Albumin [Mass/Vol] 4.5 g/dL Normal 3.4-5.0 [facility] Comment on above: Performed By: #### M MA2 #### [facility] [address] [address] [address] Prince Olivas Albumin/Globulin [Mass ratio] 1.7 {ratio} Normal [facility] Comment on above: Performed By: #### Marine MA2 #### [facility] [address] [place] [address] Dr. Prince Olivas ALP [Catalytic activity/Vol] 83 U/L Normal 46-116 [facility] Comment on above: Performed By: #### Marine MA2 #### [facility] [address] [address] [address] Prince Olivas ALT [Catalytic activity/Vol] 19 U/L Normal 14-59 [facility] Comment on above: Performed By: #### Marine MA2 #### [facility] [address] [place] [address] Dr. Prince Olivas Anion gap [Moles/Vol] 15.8 mmol/L Normal [facility] Comment on above: Performed By: #### Marine MA2 #### [facility] [address] [address] [address] Prince Olivas AST [Catalytic activity/Vol] 15 U/L Normal 15-37 [facility] Comment on above: Performed By: #### M MA2 #### [facility] [address] [place] [address] Dr. Prince Olivas Bilirubin [Mass/Vol] 0.6 mg/dL Normal 0.2-1.0 [facility] Comment on above: Performed By: #### Marine MA2 #### [facility] [address] [address] [address] Prince Olivas Calcium [Mass/Vol] 9.3 mg/dL Normal 8.5-10.1 [facility] Comment on above: Performed By: #### M MA2 #### [facility] [address] [address] [address] Prince Olivas Chloride [Moles/Vol] 103 mmol/L Normal 98-107 [facility] Comment on above: Performed By: #### M MA2 #### [facility] [address] [place] [address] Dr. Prince Olivas CO2 [Moles/Vol] 25.9 mmol/L Normal 21.0-32.0 [facility] Comment on above: Performed By: #### Marine MA2 #### [facility] [address] [place] [address] Dr. Prince Olivas Creatinine [Mass/Vol] 0.97 mg/dL Normal 0.55-1.02 [facility] Comment on above: Performed By: #### Marine MA2 #### [facility] [address] [place] [address] Dr. Prince Olivas EGFR-AF ERITREAN >60 Normal >=60 [facility] Comment on above: Performed By: #### Marine MA2 #### [facility] [address] [place] [address] Dr. Prince Olivas EGFR-NON AF ERITREAN >60 Normal >=60 [facility] Comment on above: Performed By: #### Marine MA2 #### [facility] [address] [place] [address] Dr. Prince Olivas Globulin (S) [Mass/Vol] 2.7 g/dL Normal [facility] Comment on above: Performed By: #### M MA2 #### [facility] [address] [place] [address] Dr. Prince Olivas Glucose [Mass/Vol] 107 mg/dL Critically high 74-106 [facility] Comment on above: Performed By: #### M MA2 #### [facility] [address] [place] [address] Dr. Prince Olivas Potassium [Moles/Vol] 3.7 mmol/L Normal 3.5-5.1 [facility] Comment on above: Performed By: #### M MA2 #### [facility] [address] [address] [address] Prince Olivas Protein [Mass/Vol] 7.2 g/dL Normal 6.4-8.2 [facility] Comment on above: Performed By: #### Marine MA2 #### [facility] [address] [address] [address] Prince Olivas Sodium [Moles/Vol] 141 mmol/L Normal 136-145 [facility] Comment on above: Performed By: #### Marine MA2 #### [facility] [address] [address] [address] Prince Olivas Urea nitrogen [Mass/Vol] 11.0 mg/dL Normal 7.0-18.0 [facility] Comment on above: Performed By: #### Marine MA2 #### [facility] [address] [address] [address] Prince Olivas Urea nitrogen/Creatinine [Mass ratio] 11.3 mg/mg Normal [facility] Comment on above: Performed By: #### Marine MA2 #### [facility] [address] [address] [address] Prince Olivas TROPONIN, HIGH SENSITIVITYon 12-11-2021 HSTROP 5.5 pg/mL Normal 4.0-51.3 [facility] Comment on above: Result Comment: CUT- OFF POINTS HAVE BEEN ESTABLISHED BASED ON THE FOURTH UNIVERSAL DEFINITIONS OF MYOCARDIAL INFARCTION. THE UPPER REFERENCE LIMIT (URL) OF TROPONIN, DEFINED THE 99TH PERCENTILE OF cTnI DISTRIBUTION IN A REFERENCE POPULATION, HAS BEEN CONFIRMED THE DECISION THRESHOLD FOR PA DIAGNOSIS. Performed By: #### Marine MA2 #### [facility] [address] [address] [address] Prince Olivas XR CHEST 1 Von [...] BRITNI HARRISON Date: 2021-12-11 15:20 Normal [facility] Coding Summary.on 12-06-2021 Coding Summary. CD:[id number] Gh0bWw+P GhlYWQ+GS9VQCYdD85rkAAcvX7OS 7rDOT4YGVXMRCEBTW3SJQ0tjWY1R ItyH9TugdQv WurpwWTjJK96KAf4NCV5hGbdSRai rQ4zhFWuL2k3FoQmZA94bQ90GOzq IAFjTvF8AoUtcyejwKBa J1ojRaEbmEAxGbh+PHRhYmxlIHdp YPZsHGimTXWxUxTqzVwwGZ4wVb8p ZGVyLWNvbGxhcHNlOiBj h4meLKEvLFcwEF5ylBvaO3FuqAY8 DRKwu8g4Qj34jWT+FAYdIEF9aQfv DOqpp279SjDic8yeQBL4 cBPuTBuoEIC5J74fg9W4GTMzOOKr RJH4iLL7lX2gmAcqhznjX7FbfQFp LsZ5XLC8cYUnpO1otSzx gowaaH0rAzg+J38XUX0PBWWQCW0X Idq0I0DfQcrruEI+NL61YKNeDE19 dXStnBRdq1kbxCn9SjBv BHGmVLO8vUxhBZmye8GxQNIrU09c wKZoq5X4OGSdhSaueTVuCiFlcBG6 lB7yHJmlabbcx8crfcog Ngtqo2oodn98vL39C50nIQoiPBBd EEJ4LEVtOQWjhYawot4ioU7aEj1+ DHtix1jzl0lsjZp2OiMr APNtgiArzGdcBUU2t5WgSl85P6Hr uEfvq2UmXww7qj79iCFgr3Q7iGI9 GXdlBZStmZ8lPWclWjC7 GTNtOzTqvS28bRHxKVqaQh3muAzw jUulAM1cYUHbziiyFJYugE7uKRIt zCGdxCobGP7iCBGsjtxh p897UwMiLRI2MUNnhZYmL7MyiF9b UrOnFTZdALEmD6BydQNfUEuqZ298 WZwtNlQ0SPSqzrCyG1Oc POZldMvrObX6t5Y5Nt1Dw3Cgtqxu UCL2RWdePHF6ZtRgMgBrMaV7Y9Lc Qng4ELFbmMzcCF4sI0Kj KOAwxrctqocznMG0LZNgWPAskC00 gOTdDLjbOs5qd7D7d580KTPtAYUg eC69Ks3nzPpsADOkwSVM oI6pjfssl3rcbvwfOfFjMKCgOJb5 ZWg9INYhzMovRcBfNLW8HfK8VPC2 pBExeS8suZvjrcscyR7l Oyc+F60imT4rHGX9PQA2btmkDOAs zrUrEQ69DB29F4KyRgqzzHEqaIZ+ WUUgsaZnjXskPD1qEoOw i8ivu6NiBQxuF6LsEBCkNOhnJpa6 AJDgVDP2sIN4bM7eICKdTMyzc0F2 oEQ6R1TadkJdtc4ky4xs BCOjCVxbF03hmAQrb0X0PLRokPN5 AFRvvRinQnDcnV96Ccz+PGNvbGdy p7TsLbcrv3gmo9foaPk8 DoTyHHDddvJmsIejCHV9j9WaXa13 V46sMMpmHGNsVASkGOHsIAWpuGic mh1obG9cQr9+PGNvbCB3 wHV9lI1uFVSeOdG3MLcrI916LzGq sJRaLvbzo5vge7mxaQx4BaUfCSXh dtKaeBglOJZ6h0JgIb66 N64hJEghPRTgSVXjXLXiPPQzxLkp io9zvA2qRh5+VX6ad5jrgw10rW98 dHI+JUXcEKJ2bMpxINim RUNsjN6sCLhrPiL6IZXqHqNyyQ46 zCUjNDffOp0hdYohlXdnNO0tNHJb oomlb551AqTyy9osWMAq uGAqFKvjUYF1W42fc7B8VLXbVYNw KFY1oXV0iL8biQnxebmjhPTpaUpv txOtrOufJYolAGfsX074 IHRvcDsnPlBhdGllbnQgTmFtZTo8 Y3QmLhi6DQLuuCqkHP5rtJElICwg Al2fsJgblIfgPV8qHUSj mfkex933HkPkf5ugRYQbiXHlYSvn YHA2B19os5H0DKEpXEMvQUO9rUW5 oQ7dlBqzarcskUKluAyh ssLscIvxCLwaDHbkV153FQPrlHce TqBhjsNsYMJgmLU5SE32TG86mGDo s0F2gGT7F1CiGBFgimbd agyvoYY4DFApJNUjqQ79Nh0laWab Jj8qROAaJQV3JQFvvIXxB3UhzG2d RpFlAYVgRNSdX6RjnXSi YZenL860GPgtDfF3SOHuieLkB1En SUYfpEidZuG4m0N5Kd0DT3R6IH99 OA47cAAwp6G7iKK9F1Ap YHOkkhuqpboeuMM7YOKaFTApdW13 Pe1giHemGi7xOXSiVLS6XFPtmVUe V7ZkvC6wVoTvLOWhQXXc N1MohKSiGRhmP029DZwaUcN3YNBt lkWvJ7VySVGxcDiiCgG7d1Q5Ci6L VQt4MH61UN17dSYkq1H4 bYJ4U5NeRQOjpipafoiyyYP7KUHt NFJhbK20Zb5kfTddPf5tZQEpEOD1 SIMvjOEkG6KvxB1qPbKp SXLbPTNbD2SrlZDqLYddB309RFut FpG1OIZxunJkH9XfLRYpdZmiJtM9 a9H3Ur8SAKUmXO54SEZ0 uER8IH71HI73W0FtMnptcZKccOV+ PHRhYmxlIHdpZHRoPScxMDAlJyBz cRdfRT7uBg1cLHZhDDPd iSzmwWTuDkBtm3dvSUKqWPshRU9a iGoeP4JnpBA4CEMmx4u8Ib69H72e O7DziLM+IUZqhHZ4uUY4 fF0qJeHgUeS2WDnyH405VxQjxZUd Mnpby1bzt3payOd8TaQ3URFqytNt rKhfQWI8o1TjPn65C70y SFkwAQNrISYyEIPmJMRgrMyiuy9r cI1yTu7+OYNhwZH5gGO7kG7uEcMu OoD5YKcgA092ExUixGIn Geccz4amk2sixKg3WjMfUAJwmzMe yCacGEO3o5KbSh88T5LozFuno0Ta Jlk7uk17pPItz3Z8lDE0 C1RtOUUmgjkkbZGixImsWN8qITBf evtkINRgrV5tKCOvR9g6KvAbMfA4 ECzbE7XamxZ8VYVgnACp LPbjPCF4G02ev4G3UNKzZCDcWOG2 eYE5tL2qeVrvatatqSWseUcfoeIb uAqtGHnyOPhjL954RRPm kHedSIQrnX6jUXXbpAEgnQlaRB0f NTBpbjsnPldFQVZFUiwgUkhPTkRB SIZ7O0FzQxa8ZENkrNpz LK7vrVEoWHgwMf0ngKqitUspQZ4n CCGktltdETWnxW2xLYRtbBWjkGzj EC0vYUYtaufxx252OsRy OOH3OREktHTdT1DwvQ7aJuFlNDZu YBAxX2ItgXSsNJyuK720FFwxNnJ4 DMAkigSlO1MiUMDeiYbf DgV2q3F1Bv8vYb3oBt6cAEzcTO59 NN01eBXsz6G4eJU5B4XvDDDsxzdu sueviYD1DBBfACNzqH03 zBGpAKlaWw4lh3F0m101XLPsYUWr vE63Fp7mhUdeIAGnwJBZqB7povkf c6sqtxxyOxUaKHCxAHs2 GXv8BWFaaWdeGcDhDHQ1FwE5SGE6 cJRntQ0weZfseuqmpJ6iZnb+NTEg DGLzgjX3X6XtSfk6LZXk yCbqEY0seHMfHAvmFv1hoJupwZng MY4rCIRfbfgmGLCbfG0iDOXnvLDy hCvfZV7gPIMfilkag527 TkMuMXP5AYKgzRAhT4FdiA7sObDt SJUwUBRyR2TnfXAsFUvxB360YGwl GuC3GIXlkbNvU7RtQOCl hTgrZdE7f4J0Di0LWI1rqSY0X4Cm Nxp6SACsrDpuDC4jeKUfIRopYb7p uMzwgBqwAO2dNIWglyuz CRCndH3xMWXjtTEycZwnZS9iVUSp nexya491LkBrWGV2CYUveCRhJ0Ao dN6bAnPrYHZnZPQhI8Ro nUXbCSpzN436RUgrUqS5DNHeuaMq O4TaCMTjwAaqKyR4z1P7Fj6UpPTr B9SwD9l9W6BgPpuveBY+ VO75QTQaMC84vICdwHGke3dnyFe7 XgFzTDMoQKH5xVpkXUqsa9LjLNOt Y05kgONrn8B8DAApeGdy uKPdZcCgiID9jI1sBRigbryoq7nw wejvSzzjw1urxu69mI31E09sUBlb ZHRoPSIzMCUiIHZhbGln ml2cwW0jTs2+TDNkbNO9pHB7sG6i GiUjIaO7FUupS198NoLvpFTjFcwo s1oph2hjxRu7MuDvQESx teOpsLxkQRC6l3ZlBh19G45nRQgh NQBfYOXkQGJhALNldYwwef6ynM9o Ii8+AI5pl1ydgn94rX32 dHI+ZJXoNQA8tLtfRLjsQQAleA7y OYbgQfZ5HWByIyDmvU68pHNhIEzs Cg4naDhobKkxYZ0gNBIp vaxyi751VkRhi5sqEBUtvOJdWMtw MBK6M01tv4A7FTOdILRmGTL1zMU9 zF2gfCbpgzngvIYprHbo nnSvgMaiLYnoEEvtO151QDVwzMqr HnUinGLcB0rvydLPWO2sGdqhfBL+ ILLsRKB4nPmoRMobKWMn cI1iOSJnP2k5KbJpRoC0YNshF8Rt tuB3XVJlfIImFHUbmISDkN9gpnea c4kdkmwkAiYcRYEyJUi4 QPf2RYKuuQqxGuUxDAL2WpS0KNK7 wCXjpF1uiBzdvlpkjL5jGcl+RklO OjwvdGQ+URVpBIK0vAcn CLkbDMPfjB5xACNjN3l8MeAiMaV1 FLvfJ2NkptX9CECdaKNeVLOtrYMU aG1ndexix6edffxqLnGq LSRuENa9SEr8UJUupApdZxPtXEQ9 LgP1MCP3fNPayT8pdBzcilyroV2o Oyc+TVJOOjwvdGQ+PHRk UXF6sDpkIZwvTDEuuK3sGRLaN2r9 OlEvCiF5JFzjR1RmapK3HVRubZLa ZIVahTYNrN3ialxrs5xy dfycNjLxTFJbJLv4AGe2HLOzyEto FhWlNXG8KxP4CBA1wTDugL1blVbi qfmxnF7wQew+TCI4BZF3 EH47ZQ29W8BmZbrhiJXzeVF+PHRh YmxlIHdpZHRoPScxMDAlJyBzdHls PD8rUb8tKWJpPOSxbRin cHNl (more content not included)... Normal [facility] Amylaseon 12-03-2021 Amylase [Catalytic activity/Vol] 32 U/L Normal 25-157 [facility] Comment on above: Performed By: #### 1 [id number], [id number], [id number], [id number], [id number], [id number] #### [facility] [address] [place] [address] Auto Diffon 12-03-2021 Basophils/100 WBC (Bld) 0.6 % Normal 0.0-2.0 [facility] Comment on above: Order Comment: Order Added by Discern Expert. Performed By: #### 1 [id number], [id number], [id number], [id number], [id number], [id number] #### [facility] [address] [place] [address] Basophils/Leukocyte s Auto (Bld) [Pure # fraction] 0.1 E9/L Normal 0.0-0.2 [facility] Comment on above: Order Comment: Order Added by Discern Expert. Performed By: #### 1 [id number], [id number], [id number], [id number], [id number], [id number] #### [facility] [address] [place] [address] Eosinophils/100 WBC (Bld) 0.1 % Normal 0.0-8.0 [facility] Comment on above: Order Comment: Order Added by Discern Expert. Performed By: #### 1 [id number], [id number], [id number], 9603544, 2613253, 6401634, 0041719 #### [facility] [address] [place] [address] Eosinophils/Leukocy lefty Auto (Bld) [Pure # fraction] 0.0 E9/L Normal 0.0-0.5 [facility] Comment on above: Order Comment: Order Added by Discern Expert. Performed By: #### 1 0233747, 5941055, 5536585, 5426101, 3875642, 2008374, 4520093 #### [facility] [address] [place] [address] Lymphocytes/100 WBC (Bld) 16.1 % Normal 14.0-50.0 [facility] Comment on above: Order Comment: Order Added by Discern Expert. Performed By: #### 1 4988561, 3523285, 0701891, 5127697, 2074725, 2095831, 2512274 #### [facility] [address] [place] [address] Lymphocytes/Leukocy lefty Auto (Bld) [Pure # fraction] 1.5 E9/L Normal 1.0-4.0 [facility] Comment on above: Order Comment: Order Added by Discern Expert. Performed By: #### 1 4305295, 3950391, 2512400, 6495386, 6834786, 8129728, 7159320 #### [facility] [address] [place] [address] 34976 Monocytes/100 WBC (Bld) 4.6 % Normal 4.0-14.0 [facility] Comment on above: Order Comment: Order Added by Farrukh Expert. Performed By: #### 1 4971502, 4320967, 1544574, 5805403, 1939396, 0324359, 3408009 #### [facility] [address] [place] [address] Monocytes/Leukocyte s Auto (Bld) [Pure # fraction] 0.4 E9/L Normal 0.2-1.0 [facility] Comment on above: Order Comment: Order Added by Discern Expert. Performed By: #### 1 7712952, 1721232, 2024764, 8187847, 4564710, 1929261, 1807926 #### [facility] [address] [place] [address] Neutrophils/100 WBC (Bld) 78.6 % High 36.0-75.0 [facility] Comment on above: Order Comment: Order Added by Discern Expert. Performed By: #### 1 7513910, 7571343, 6429916, 8261889, 5845179, 0368801, 8011341 #### [facility] [address] [place] [address] Neutrophils/Leukocy lefty Auto (Bld) [Pure # fraction] 7.6 E9/L High 2.0-7.5 [facility] Comment on above: Order Comment: Order Added by Discern Expert. Performed By: #### 1 4231004, 6251465, 8109972, 0007688, 5506457, 0800324, 9920504 #### [facility] [address] [place] [address] BMPon 12-03-2021 Creatinine [Mass/Vol] 1.1 mg/dL Normal 0.5-1.3 [facility] Comment on above: Performed By: #### 1 4352936, 3615871, 6444487, 2170649, 8614646, 6827303, 8651071 #### [facility] [address] [place] [address] Urea nitrogen [Mass/Vol] 21 mg/dL Normal 5-21 [facility] Comment on above: Performed By: #### 1 8302399, 5136661, 8523413, 3673950, 1762718, 5525259, 0144094 #### [facility] [address] [place] [address] Urea nitrogen/Creatinine [Mass ratio] 19 No Units Normal 10-20 [facility] Comment on above: Performed By: #### 1 6308602, 6389835, 2091593, 4813892, 7364886, 2855310, 0071996 #### [facility] [address] [place] [address] Anion gap [Moles/Vol] 22 mmol/L High 6-16 [facility] Comment on above: Performed By: #### 1 5665955, 0990362, 6141537, 9542202, 4887977, 7729901, 3158900 #### [facility] [address] [place] [address] Calcium [Mass/Vol] 9.8 mg/dL Normal 8.9-11.1 [facility] Comment on above: Performed By: #### 1 0556588, 5790496, 4165592, 3964369, 7479872, 0546347, 3385105 #### [facility] [address] [place] [address] Chloride [Moles/Vol] 96 mmol/L Low 101-111 [facility] Comment on above: Performed By: #### 1 3567804, 5461799, 4397723, 7053222, 1897366, 5496578, 3371095 #### [facility] [address] [place] [address] CO2 [Moles/Vol] 19 mmol/L Low 21-31 [facility] Comment on above: Performed By: #### 1 2719602, 5556894, 2760940, 9426210, 4220638, 6572742, 4054670 #### [facility] [address] [place] [address] Glucose [Mass/Vol] 64 mg/dL Normal 55-199 [facility] Comment on above: Result Comment: If t his glucose result represents a fasting glucose, interpretation should refer to the following reference range: 55-99 mg/dL Performed By: #### 1 8206381, 5231498, 2509045, 8997504, 0009417, 3552835, 5167187 #### [facility] [address] [place] [address] Potassium [Moles/Vol] 4.3 mmol/L Normal 3.5-5.3 [facility] Comment on above: Performed By: #### 1 6628511, 2962192, 1928533, 4526766, 7867638, 4755813, 1697961 #### [facility] [address] [place] [address] Sodium [Moles/Vol] 133 mmol/L Low 135-145 [facility] Comment on above: Performed By: #### 1 0614634, 3430394, 0833449, 6799433, 5205353, 5921801, 0759157 #### [facility] [address] [place] [address] CBC w/ Auto Diffon 2 Erythrocyte distribution width (RBC) [Ratio] 13.5 % Normal 10.9-14.2 [facility] Comment on above: Performed By: #### 1 8041077, 4995452, 6499097, 5619994, 0247271, 1911665, 0517324 #### [facility] [address] [place] [address] Hematocrit (Bld) [Volume fraction] 51.0 % High 34.0-46.0 [facility] Comment on above: Performed By: #### 1 6784883, 0536839, 6439247, 2546131, 1810844, 6028159, 7388217 #### [facility] [address] [place] [address] Hemoglobin (Bld) [Mass/Vol] 16.8 g/dL High 12.0-16.0 [facility] Comment on above: Performed By: #### 1 0833434, 2556786, 8702833, 4727639, 8706272, 3881119, 6645119 #### [facility] [address] [place] [address] MCH (RBC) [Entitic mass] 30.9 pg Normal 27.0-34.0 [facility] Comment on above: Performed By: #### 1 4296605, 7720882, 7561167, 4963219, 3492771, 8402318, 8410890 #### [facility] [address] [place] [address] MCHC (RBC) [Mass/Vol] 32.9 g/dL Normal 31.4-36.0 [facility] Comment on above: Performed By: #### 1 8752886, 0361052, 8315629, 1873840, 6163516, 6707102, 6574172 #### [facility] [address] [place] [address] MCV (RBC) [Entitic vol] 94.0 fL Normal 80.0-100.0 [facility] Comment on above: Performed By: #### 1 7210740, 3584485, 6285553, 6728815, 9676270, 7573303, 7225712 #### [facility] [address] [place] [address] Platelet mean volume (Bld) [Entitic vol] 9.8 fL Normal 6.4-10.8 [facility] Comment on above: Performed By: #### 1 4192668, 0708490, 0582157, 3087129, 5495279, 8319753, 7059682 #### [facility] [address] [place] [address] Platelets (Bld) [#/Vol] 212.0 E9/L Normal 150.0-500.0 [facility] Comment on above: Performed By: #### 1 5494404, 2404255, 9327677, 4914177, 5538267, 0927422, 8659553 #### [facility] [address] [place] [address] RBC (Bld) [#/Vol] 5.4 E12/L Normal 4.3-5.9 [facility] Comment on above: Performed By: #### 1 0614225, 9610074, 9428389, 8431623, 0718271, 1187760, 1600119 #### [facility] [address] [place] [address] WBC corrected for nucl RBC Auto (Bld) [#/Vol] 9.6 E9/L Normal 4.0-11.0 [facility] Comment on above: Performed By: #### 1 9230403, 8946995, 5287112, 6949206, 7727407, 8919613, 9734394 #### [facility] [address] [place] [address] Consent for Treatmenton 11-16 Consent for Treatment [id number]:127 Normal [facility] Discharge Instructionson Discharge Instructions [id number]:127 Normal [facility] ED Clinical Summaryon 2021 ED Clinical Summary (Inserted Image. Antoinette ble to display) [address] [address] ED Clinical Summary Person Information Name: SAI PINEDA Natalie/[facility] Age: 51 Years : 1970 Sex: Female Language: Czech PCP: CRISTINA IQBAL CNP Marital Status: MRN: Visit Id: Visit Reason: Nausea; Abdominal pain; [id number] BREATHING Speciality: Acuity: 3 Enc Type: Emergency [...] 12/03/2021 13:54:54 12/03/2021 13:54:54 12/03/2021 13:54:54 ADDRESS: [address] [place] [phone] PHYS DOC NOTES: MEDICAL INFORMATION: Prescriptions Given: New Medications [facility]/pharmacy #[id number], [address], [place] [id number], [phone] promethazine (Phenergan 25 mg Supp) 1 Suppositories By rectum every 6 hours as needed as needed for nausea. Insert one per rectum every six hours as needed for nausea and vomiting. Refills: 0. promethazine (promethazine 25 mg Tab) 1 Tablets By Mouth every 4 hours. Refills: 0. Medications to Continue Taking That Have Changed [facility]/pharmacy #[id number], [address], [place] [id number], [phone] START: pantoprazole (Protonix 40 mg Tab-DR) 1 [...] day. PATIENT EDUCATION INFORMATION: Instructions: Gastritis, Adult, Rbua-qh-Vzxq; Abdominal Pain, Adult Follow up: With: Address: When: CRISTINA HOODMARYAMBoyd [address] [facility], [place], [place] [phone] Business (1) In 3 days 12/06/2021 DIAGNOSIS: 1:Upper abdominal pain; 2:Gastritis; 3:Anxiety Normal [facility] ED Note-Physicianon 12-04-19 ED Note-Physician [...] Daily, # 30 tab(s), Refills(s) 0, Pharmacy: [facility]/pharmacy #[id number], 172.9, cm, 12/03/21 10:15:00 EDT, Height/Length Dosing, 46.2, kg, 12/03/21 10:15:00 EDT, Weight Dosing promethazine, 25 mg = 1 tab(s), Oral, q4hr, # 12 tab(s), Refills(s) 0, [id number], 172.9, cm, 12/03/21 10:15:00 EDT, Height/Length Dosing, 46.2, kg, 12/03/21 10:15:00 EDT, Weight Dosing promethazine, 25 mg = 1 supp, Rectal, q6hr, PRN as needed for nausea, Insert one per rectum every six hours as needed for nausea and vomiting, # 6 EA, Refills(s) 0, [id number], 172.9, cm, 12/03/21 10:15:00 EDT, [...] mg/mL IV Misty, 20 mg, IV Push LM0050 [F], 1000 mL, IV promethazine 25 mg/mL [...] days 12/06/2021 EDT [address] [place] [phone] Business (1) Additional Instructions: Patient Ed (more content not included)... Normal [facility] Comment on above: [...] these instructions at home: Medicines ? Take mang-xyr-uqdtlaq and prescription medicines only as told by [...] 08/20/2008 Document Revised: 07/22/2018 Document Reviewed: 07/22/2018 [employer] Patient Education ? 2020 [employer]. Abdominal Pain, Adult Pain in the abdomen [...] these instructions at home: Medicines ? Take brpn-ikn-ntkmblx and prescription medicines only as told by [...] are cons (more content not included)... Normal [facility] ED Patient Summaryon 022 ED Patient Summary (Inserted Image. Antoinette ble to display) [place] [id number] Patient Discharge Instructions Person Information Name: SAI PINEDA Age: 51 Years Arrival Date: 12/03/2021 09:55:45 Discharge Diagnosis: 1:Upper abdominal pain; 2:Gastritis; 3:Anxiety Primary Care Physician: CRISTINA IQBAL CNP Provider Information Primary Provider: Vipin Pina MD Advanced Agricultural Appraiser:None The exam and treatment you received in the Emergency Department were for an urgent problem and are not intended as complete care. It is important that you follow up with a doctor, nurse practitioner, or physician?s diagnostic assistant for ongoing care. If your symptoms [...] Address: When: CRISTINA IQBAL [address] [place], [place] [phone] Business (1) In 3 days 12/06/2021 In the event that this physician does not participate in your insurance network, please consult with your insurance company to find a nearby participating provider. Patient Education Materials: Gastritis, Adult, Bwic-zo-Nbzm; Abdominal Pain, Adult A MESSAGE TO ALL PATIENTS REGARDING OPIOIDS PRESCRIPTION OPIOIDS: WHAT YOU NEED TO KNOW Prescription opioids can be used to help relieve kjaezwsy-lt-njmkdp pain and are often prescribed following a [...] be struggling with addiction, tell your health nursing care attendant and ask for guidance or call [facility]? (more content not included)... Normal [facility] Hep Func Panelon 12-03-2021 Albumin [Mass/Vol] 5.3 g/dL High 3.3-5.0 [facility] Comment on above: Performed By: #### 1 5736716, 6509653, 1104335, 3072485, 7789051, 4944698, 9352071 #### [facility] [address] [place] [address] Albumin/Globulin (S) [Mass conc ratio] 1.8 Normal 1.1-2.2 [facility] Comment on above: Performed By: #### 1 3959232, 2670377, 4782011, 3131541, 5154256, 5162855, 9909455 #### [facility] [address] [place] [address] ALP [Catalytic activity/Vol] 79 Int._Unit/L Normal 21-98 [facility] Comment on above: Performed By: #### 1 9908129, 9804236, 9364974, 8815450, 2176296, 0769361, 5715266 #### [facility] [address] [place] [address] ALT No additional P-5'-P [Catalytic activity/Vol] 14 Int._Unit/L Normal 6-46 [facility] Comment on above: Performed By: #### 1 5939566, 2196270, 2857587, 0177969, 2938105, 5218361, 9444371 #### [facility] [address] [place] [address] AST [Catalytic activity/Vol] 21 Int._Unit/L Normal 5-43 [facility] Comment on above: Performed By: #### 1 8105142, 5905601, 3998846, 9567840, 1088876, 0945004, 8292273 #### [facility] [address] [place] [address] Bilirubin [Mass/Vol] 1.2 mg/dL High 0.0-1.1 [facility] Comment on above: Performed By: #### 1 8847973, 5877448, 8676932, 9142155, 4509548, 2019055, 7984727 #### [facility] [address] [place] [address] Bilirubin.direct [Mass/Vol] 0.2 mg/dL Normal 0.1-0.4 [facility] Comment on above: Performed By: #### 1 2732526, 4674943, 3265217, 6497215, 6784344, 0998102, 2811657 #### [facility] [address] [place] [address] Bilirubin.indirect [Mass or moles/Vol] 1.0 mg/dL High 0.1-0.9 [facility] Comment on above: Performed By: #### 1 3164294, 4935446, 2788255, 7156003, 1158238, 1191387, 2146263 #### [facility] [address] [place] [address] Globulin (S) [Mass/Vol] 3.0 g/dL Normal 1.4-4.0 [facility] Comment on above: Performed By: #### 1 1196481, 3006050, 5531707, 5892227, 5250566, 9465411, 9994741 #### [facility] [address] [place] [address] Protein [Mass/Vol] 8.3 g/dL High 6.0-7.8 [facility] Comment on above: Performed By: #### 1 2361441, 2228046, 5381163, 1162405, 9263507, 0464626, 3592587 #### [facility] [address] [place] [address] Lipase Levelon 12-03-2021 Lipase [Catalytic activity/Vol] 21 U/L Normal 13-58 [facility] Comment on above: Performed By: #### 1 0486018, 7573725, 2688466, 7460943, 6388028, 0346380, 0374810 #### [facility] [address] [place] [address] eGFRon 12-03-2021 GFR/1.73 sq M.predicted among blacks MDRD (S/P/Bld) [Vol rate/Area] mL/min/{1.73_m2} Normal >=59 [facility] Comment on above: Order Comment: Order added by Discern Expert. Result Comment: eGFR is race adjusted. AA=. Performed By: #### 1 6585793, 6349084, 8286567, 8193174, 3089735, 4636588, 8011040 #### [facility] [address] [place] [address] GFR/1.73 sq M.predicted among non-blacks MDRD (S/P/Bld) [Vol rate/Area] 52 mL/min/1.73 m2 Low >=59 [facility] Comment on above: Order Comment: Order added by Discern Expert. Result Comment: [employer] julian kidney disease could be indicated at eGFR's of less than 60 mL/min/1.73m2. Kidney failure is indicated at less than 15 mL/min/1.73m2. Performed By: #### 1 9860615, 8084887, 2121709, 5700047, 5093867, 9052135, 4000840 #### [facility] [address] [place] [address] CARDIAC SIMA ADMITon 022 CK [Catalytic activity/Vol] 72 U/L Normal 26-192 [facility] Comment on above: Performed By: #### S SKYLER #### [facility] [address] [place] [address] Dr. Prince Olivas CK.MB [Mass/Vol] 1.28 ng/mL Normal <=3.60 [facility] Comment on above: Performed By: #### S SKYLER #### [facility] [address] [place] [address] Dr. Prince Olivas HSTROP 5.4 pg/mL Normal 4.0-51.3 [facility] Comment on above: Result Comment: CUT- OFF POINTS HAVE BEEN ESTABLISHED BASED ON THE FOURTH UNIVERSAL DEFINITIONS OF MYOCARDIAL INFARCTION. THE UPPER REFERENCE LIMIT (URL) OF TROPONIN, DEFINED THE 99TH PERCENTILE OF cTnI DISTRIBUTION IN A REFERENCE POPULATION, HAS BEEN CONFIRMED THE DECISION THRESHOLD FOR PA DIAGNOSIS. Performed By: #### S SKYLER #### [facility] [address] [place] [address] Dr. Prince Olivas JENNIFER 58 ng/mL Normal 9-82 [facility] Comment on above: Performed By: #### S SKYLER #### [facility] [address] [place] [address] Dr. Prince Olivas CBC AUTO DIFFon 11-14-2021 BASO # 0.1 103/ul Normal 0.0-0.1 [facility] Comment on above: Performed By: #### L IPID, CMP #### [facility] [address] [place] [address] Dr. Prince Olivas Basophils/100 WBC (Bld) 0.6 % Normal 0.2-2.0 [facility] Comment on above: Performed By: #### L IPID, CMP #### [facility] [address] [place] [address] Dr. Prince Olivas EO # 0.1 103/ul Normal 0.0-0.7 [facility] Comment on above: Performed By: #### L IPID, CMP #### [facility] [address] [place] [address] Dr. Prince Olivas Eosinophils/100 WBC (Bld) 0.9 % Normal 0.9-7.0 [facility] Comment on above: Performed By: #### L IPID, CMP #### [facility] [address] [place] [address] Dr. Prince Olivas Erythrocyte distribution width (RBC) [Ratio] 13.0 % Normal 11.0-15.0 [facility] Comment on above: Performed By: #### L IPID, CMP #### [facility] [address] [place] [address] Dr. Prince Olivas Hematocrit (Bld) [Volume fraction] 46.3 % Normal 36.0-48.0 [facility] Comment on above: Performed By: #### L IPID, CMP #### [facility] [address] [place] [address] Dr. Prince Olivas Hemoglobin (Bld) [Mass/Vol] 15.8 g/dL Normal 12.0-16.0 [facility] Comment on above: Performed By: #### L IPID, CMP #### [facility] [address] [place] [address] Dr. Prince Olivas IG # 0.03 10e3/ul Normal 0.00-0.03 [facility] Comment on above: Performed By: #### L IPID, CMP #### [facility] [address] [place] [address] Dr. Prince Olivas IG % 0.3 % Normal 0.0-0.5 [facility] Comment on above: Performed By: #### L IPID, CMP #### [facility] [address] [place] [address] Dr. Prince Olivas LYMPH # 2.8 103/ul Normal 1.2-3.8 [facility] Comment on above: Performed By: #### L IPID, CMP #### [facility] [address] [place] [address] Dr. Prince Olivas Lymphocytes/100 WBC (Bld) 31.8 % Normal 20.5-60.0 [facility] Comment on above: Performed By: #### L IPID, CMP #### [facility] [address] [place] [address] Dr. Prince Olivas MANUAL DIFF REQ NO Normal [facility] Comment on above: Performed By: #### L IPID, CMP #### [facility] [address] [place] [address] Dr. Prince Olivas MCH (RBC) [Entitic mass] 31.5 pg Normal 26.7-34.0 [facility] Comment on above: Performed By: #### L IPID, CMP #### [facility] [address] [place] [address] Dr. Prince Olivas MCHC (RBC) [Mass/Vol] 34.1 g/dL Normal 29.9-35.2 [facility] Comment on above: Performed By: #### L IPID, CMP #### [facility] [address] [place] [address] Dr. Prince Olivas MCV (RBC) [Entitic vol] 92.4 fL Normal 81.0-99.0 [facility] Comment on above: Performed By: #### L IPID, CMP #### [facility] [address] [place] [address] Dr. Prince Olivas MONO # 0.6 103/ul Normal 0.3-0.8 [facility] Comment on above: Performed By: #### L IPID, CMP #### [facility] [address] [place] [address] Dr. Prince Olivas Monocytes/100 WBC (Bld) 6.8 % Normal 1.7-12.0 [facility] Comment on above: Performed By: #### L IPID, CMP #### [facility] [address] [place] [address] Dr. Prince Olivas NEUT # 5.3 103/ul Normal 1.4-6.5 [facility] Comment on above: Performed By: #### L IPID, CMP #### [facility] [address] [place] [address] Dr. Prince Olivas Neutrophils/100 WBC (Bld) 59.6 % Normal 43.0-75.0 [facility] Comment on above: Performed By: #### L IPID, CMP #### [facility] [address] [place] [address] Dr. Prince Olivas Platelet mean volume (Bld) [Entitic vol] 11.6 fL Normal 9.5-13.5 [facility] Comment on above: Performed By: #### L IPID, CMP #### [facility] [address] [place] [address] Dr. Prince Olivas PLT 185 103/ul Normal 150-450 [facility] Comment on above: Performed By: #### L IPID, CMP #### [facility] [address] [place] [address] Dr. Prince Olivas RBC 5.01 106/ul Normal 4.20-5.40 [facility] Comment on above: Performed By: #### L IPID, CMP #### [facility] [address] [place] [address] Dr. Prince Olivas WBC 8.9 103/ul Normal 4.0-11.0 [facility] Comment on above: Performed By: #### L IPID, CMP #### [facility] [address] [place] [address] Dr. Prince Olivas LIPASEon 11-14-2021 Lipase [Catalytic activity/Vol] 84.0 U/L Normal 73.0-393.0 [facility] Comment on above: Performed By: #### S ELNIUM #### [facility] [address] [place] [address] Dr. Prince Olivas PROF 14(COMP METB)on 022 Albumin [Mass/Vol] 4.1 g/dL Normal 3.4-5.0 [facility] Comment on above: Performed By: #### S ELNIUM #### [facility] [address] [place] [address] Dr. Prince Olivas Albumin/Globulin [Mass ratio] 1.6 {ratio} Normal [facility] Comment on above: Performed By: #### S ELNIUM #### [facility] [address] [place] [address] Dr. Prince Olivas ALP [Catalytic activity/Vol] 76 U/L Normal 46-116 [facility] Comment on above: Performed By: #### S ELNIUM #### [facility] [address] [place] [address] Dr. Prince Olivas ALT [Catalytic activity/Vol] 14 U/L Normal 14-59 [facility] Comment on above: Performed By: #### S ELNIUM #### [facility] [address] [place] [address] Dr. Prince Olivas Anion gap [Moles/Vol] 17.7 mmol/L Normal [facility] Comment on above: Performed By: #### S ELNIUM #### [facility] [address] [place] [address] Dr. Prince Olivas AST [Catalytic activity/Vol] 15 U/L Normal 15-37 [facility] Comment on above: Performed By: #### S ELNIUM #### [facility] [address] [place] [address] Dr. Prince Olivas Bilirubin [Mass/Vol] 0.7 mg/dL Normal 0.2-1.0 [facility] Comment on above: Performed By: #### S ELNIUM #### [facility] [address] [place] [address] Dr. Prince Olivas Calcium [Mass/Vol] 9.4 mg/dL Normal 8.5-10.1 [facility] Comment on above: Performed By: #### S ELNIUM #### [facility] [address] [place] [address] Dr. Prince Olivas Chloride [Moles/Vol] 104 mmol/L Normal 98-107 [facility] Comment on above: Performed By: #### S ELNIUM #### [facility] [address] [place] [address] Dr. Prince Olivas CO2 [Moles/Vol] 20.8 mmol/L Critically low 21.0-32.0 [facility] Comment on above: Performed By: #### S ELNIUM #### [facility] [address] [place] [address] Dr. Prince Olivas Creatinine [Mass/Vol] 0.96 mg/dL Normal 0.55-1.02 [facility] Comment on above: Performed By: #### S ELNIUM #### [facility] [address] [place] [address] Dr. Prince Olivas EGFR-AF ERITREAN >60 Normal >=60 [facility] Comment on above: Performed By: #### S ELNIUM #### [facility] [address] [place] [address] Dr. Prince Olivas EGFR-NON AF ERITREAN >60 Normal >=60 [facility] Comment on above: Performed By: #### S ELNIUM #### [facility] [address] [address] [address] Prince Olivas Globulin (S) [Mass/Vol] 2.6 g/dL Normal [facility] Comment on above: Performed By: #### S ELNIUM #### [facility] [address] [place] [address] Dr. Prince Olivas Glucose [Mass/Vol] 104 mg/dL Normal 74-106 [facility] Comment on above: Performed By: #### S ELNIUM #### [facility] [address] [place] [address] Dr. Prince Olivas Potassium [Moles/Vol] 3.5 mmol/L Normal 3.5-5.1 [facility] Comment on above: Performed By: #### S ELNIUM #### [facility] [address] [place] [address] Dr. Prince Olivas Protein [Mass/Vol] 6.7 g/dL Normal 6.4-8.2 [facility] Comment on above: Performed By: #### S ELNIUM #### [facility] [address] [place] [address] Dr. Prince Olivas Sodium [Moles/Vol] 139 mmol/L Normal 136-145 [facility] Comment on above: Performed By: #### S ELNIUM #### [facility] [address] [address] [address] Prince Olivas Urea nitrogen [Mass/Vol] 10.0 mg/dL Normal 7.0-18.0 [facility] Comment on above: Performed By: #### S ELNIUM #### [facility] [address] [address] [address] Prince Olivas Urea nitrogen/Creatinine [Mass ratio] 10.4 mg/mg Normal [facility] Comment on above: Performed By: #### S ELNIUM #### [facility] [address] [place] [address] Dr. Prince Olivas XR ABD FLAT UP_PA [...] CHITRA ALFARO Date: 2021-11-14 18:10 Normal [facility] CBC AUTO DIFFon 11-09-2021 BASO # 0.0 103/ul Normal 0.0-0.1 [facility] Comment on above: Performed By: #### S ELNIUM #### [facility] [address] [place] [address] Dr. Prince Olivas Basophils/100 WBC (Bld) 0.3 % Normal 0.2-2.0 [facility] Comment on above: Performed By: #### S ELNIUM #### [facility] [address] [address] [address] Prince Olivas EO # 0.0 103/ul Normal 0.0-0.7 [facility] Comment on above: Performed By: #### S ELNIUM #### [facility] [address] [place] [address] Dr. Prince Olivas Eosinophils/100 WBC (Bld) 0.3 % Critically low 0.9-7.0 [facility] Comment on above: Performed By: #### S ELNIUM #### [facility] [address] [place] [address] Dr. Prince Olivas Erythrocyte distribution width (RBC) [Ratio] 13.1 % Normal 11.0-15.0 [facility] Comment on above: Performed By: #### S ELNIUM #### [facility] [address] [place] [address] Dr. Prince Olivas Hematocrit (Bld) [Volume fraction] 46.8 % Normal 36.0-48.0 [facility] Comment on above: Performed By: #### S ELNIUM #### [facility] [address] [place] [address] Dr. Prince Olivas Hemoglobin (Bld) [Mass/Vol] 15.8 g/dL Normal 12.0-16.0 [facility] Comment on above: Performed By: #### S ELNIUM #### [facility] [address] [place] [address] Dr. Prince Olivas IG # 0.03 10e3/ul Normal 0.00-0.03 [facility] Comment on above: Performed By: #### S ELNIUM #### [facility] [address] [place] [address] Dr. Prince Olivas IG % 0.3 % Normal 0.0-0.5 [facility] Comment on above: Performed By: #### S ELNIUM #### [facility] [address] [place] [address] Dr. Prince Olivas LYMPH # 2.9 103/ul Normal 1.2-3.8 [facility] Comment on above: Performed By: #### S ELNIUM #### [facility] [address] [place], [place] [id number] Dr. Prince Olivas Lymphocytes/100 WBC (Bld) 31.7 % Normal 20.5-60.0 [facility] Comment on above: Performed By: #### S ELNIUM #### [facility] [address] [place] [address] Dr. Prince Olivas MANUAL DIFF REQ NO Normal [facility] Comment on above: Performed By: #### S ELNIUM #### [facility] [address] [place] [address] Dr. Prince Olivas MCH (RBC) [Entitic mass] 31.9 pg Normal 26.7-34.0 [facility] Comment on above: Performed By: #### S ELNIUM #### [facility] [address] [place] [address] Dr. Prince Olivas MCHC (RBC) [Mass/Vol] 33.8 g/dL Normal 29.9-35.2 [facility] Comment on above: Performed By: #### S ELNIUM #### [facility] [address] [place] [address] Dr. Prince Olivas MCV (RBC) [Entitic vol] 94.5 fL Normal 81.0-99.0 [facility] Comment on above: Performed By: #### S ELNIUM #### [facility] [address] [place] [address] Dr. Prince Olivas MONO # 0.5 103/ul Normal 0.3-0.8 [facility] Comment on above: Performed By: #### S ELNIUM #### [facility] [address] [place] [address] Dr. Prince Olivas Monocytes/100 WBC (Bld) 5.2 % Normal 1.7-12.0 [facility] Comment on above: Performed By: #### S ELNIUM #### [facility] [address] [place] [address] Dr. Prince Olivas NEUT # 5.8 103/ul Normal 1.4-6.5 [facility] Comment on above: Performed By: #### S ELNIUM #### [facility] [address] [address] [address] Prince Olivas Neutrophils/100 WBC (Bld) 62.2 % Normal 43.0-75.0 [facility] Comment on above: Performed By: #### S ELNIUM #### [facility] [address] [address] [address] Prince Olivas Platelet mean volume (Bld) [Entitic vol] 11.1 fL Normal 9.5-13.5 [facility] Comment on above: Performed By: #### S ELNIUM #### [facility] [address] [address] [address] Prince Olivas PLT 218 103/ul Normal 150-450 [facility] Comment on above: Performed By: #### S ELNIUM #### [facility] [address] [place] [address] Dr. Prince Olivas RBC 4.95 106/ul Normal 4.20-5.40 [facility] Comment on above: Performed By: #### S ELNIUM #### [facility] [address] [address] [address] Prince Olivas WBC 9.3 103/ul Normal 4.0-11.0 [facility] Comment on above: Performed By: #### S ELNIUM #### [facility] [address] [place] [address] Dr. Prince Olivas PROF CHEM 8 (BAS METB)on Anion gap [Moles/Vol] 14.8 mmol/L Normal [facility] Comment on above: Performed By: #### C OPPER #### [facility] [address] [place] [address] Dr. Prince Olivas Calcium [Mass/Vol] 9.3 mg/dL Normal 8.5-10.1 [facility] Comment on above: Performed By: #### C OPPER #### [facility] [address] [place] [address] Dr. Prince Olivas Chloride [Moles/Vol] 105 mmol/L Normal 98-107 [facility] Comment on above: Performed By: #### C OPPER #### [facility] [address] [address] [address] Prince Olivas CO2 [Moles/Vol] 23.7 mmol/L Normal 21.0-32.0 [facility] Comment on above: Performed By: #### C OPPER #### [facility] [address] [address] [address] Prince Olivas Creatinine [Mass/Vol] 0.95 mg/dL Normal 0.55-1.02 [facility] Comment on above: Performed By: #### C OPPER #### [facility] [address] [address] [address] Prince Olivas EGFR-AF ERITREAN >60 Normal >=60 [facility] Comment on above: Performed By: #### C OPPER #### [facility] [address] [place] [address] Dr. Prince Olivas EGFR-NON AF ERITREAN >60 Normal >=60 [facility] Comment on above: Performed By: #### C OPPER #### [facility] [address] [place] [address] Dr. Prince Olivas Glucose [Mass/Vol] 103 mg/dL Normal 74-106 [facility] Comment on above: Performed By: #### C OPPER #### [facility] [address] [place] [address] Dr. Prince Olivas Potassium [Moles/Vol] 3.5 mmol/L Normal 3.5-5.1 [facility] Comment on above: Performed By: #### C OPPER #### [facility] [address] [place] [address] Dr. Prince Olivas Sodium [Moles/Vol] 140 mmol/L Normal 136-145 [facility] Comment on above: Performed By: #### C OPPER #### [facility] [address] [place] [address] Dr. Prince Olivas Urea nitrogen [Mass/Vol] 7.0 mg/dL Normal 7.0-18.0 [facility] Comment on above: Performed By: #### C OPPER #### [facility] [address] [place] [address] Dr. Prince Olivas Urea nitrogen/Creatinine [Mass ratio] 7.4 mg/mg Normal [facility] Comment on above: Performed By: #### C OPPER #### [facility] [address] [address] [address] Prince Olivas TROPONIN, HIGH SENSITIVITYon 11-09-2021 HSTROP 4.3 pg/mL Normal 4.0-51.3 [facility] Comment on above: Result Comment: CUT- OFF POINTS HAVE BEEN ESTABLISHED BASED ON THE FOURTH UNIVERSAL DEFINITIONS OF MYOCARDIAL INFARCTION. THE UPPER REFERENCE LIMIT (URL) OF TROPONIN, DEFINED THE 99TH PERCENTILE OF cTnI DISTRIBUTION IN A REFERENCE POPULATION, HAS BEEN CONFIRMED THE DECISION THRESHOLD FOR PA DIAGNOSIS. Performed By: #### C OPPER #### [facility] [address] [address] [address] Prince Olivas XR CHEST 1 Von [...] BELEN REGAN Date: 2021-11-09 17:05 Normal [facility] CARDIAC SIMA ADMITon 022 CK [Catalytic activity/Vol] 62 U/L Normal 26-192 [facility] Comment on above: Performed By: #### M MA2 #### [facility] [address] [address] [address] Prince Olivas CK.MB [Mass/Vol] 0.37 ng/mL Normal <=3.60 [facility] Comment on above: Performed By: #### M MA2 #### [facility] [address] [place] [address] Dr. Prince Olivas HSTROP 3.5 pg/mL Critically low 4.0-51.3 [facility] Comment on above: Result Comment: CUT- OFF POINTS HAVE BEEN ESTABLISHED BASED ON THE FOURTH UNIVERSAL DEFINITIONS OF MYOCARDIAL INFARCTION. THE UPPER REFERENCE LIMIT (URL) OF TROPONIN, DEFINED THE 99TH PERCENTILE OF cTnI DISTRIBUTION IN A REFERENCE POPULATION, HAS BEEN CONFIRMED THE DECISION THRESHOLD FOR PA DIAGNOSIS. Performed By: #### M MA2 #### [facility] [address] [place] [address] Dr. Prince Olivas JENNIFER 40 ng/mL Normal 9-82 [facility] Comment on above: Performed By: #### M MA2 #### [facility] [address] [place] [address] Dr. Prince Olivas CBC AUTO DIFFon 10-04-2021 BASO # 0.0 103/ul Normal 0.0-0.1 [facility] Comment on above: Performed By: #### C BC #### [facility] [address] [place] [address] Dr. Prince Olivas Basophils/100 WBC (Bld) 0.6 % Normal 0.2-2.0 [facility] Comment on above: Performed By: #### C BC #### [facility] [address] [place] [address] Dr. Prince Olivas EO # 0.3 103/ul Normal 0.0-0.7 [facility] Comment on above: Performed By: #### C BC #### [facility] [address] [place] [address] Dr. Prince Olivas Eosinophils/100 WBC (Bld) 3.7 % Normal 0.9-7.0 [facility] Comment on above: Performed By: #### C BC #### [facility] [address] [place] [address] Dr. Prince Olivas Erythrocyte distribution width (RBC) [Ratio] 13.4 % Normal 11.0-15.0 [facility] Comment on above: Performed By: #### C BC #### [facility] [address] [place] [address] Dr. Prince Olivas Hematocrit (Bld) [Volume fraction] 42.8 % Normal 36.0-48.0 [facility] Comment on above: Performed By: #### C BC #### [facility] [address] [place] [address] Dr. Prince Olivas Hemoglobin (Bld) [Mass/Vol] 14.1 g/dL Normal 12.0-16.0 [facility] Comment on above: Performed By: #### C BC #### [facility] [address] [place] [address] Dr. Prince Olivas IG # 0.02 10e3/ul Normal 0.00-0.03 [facility] Comment on above: Performed By: #### C BC #### [facility] [address] [place] [address] Dr. Prince Olivas IG % 0.3 % Normal 0.0-0.5 [facility] Comment on above: Performed By: #### C BC #### [facility] [address] [place] [address] Dr. Prince Olivas LYMPH # 2.0 103/ul Normal 1.2-3.8 [facility] Comment on above: Performed By: #### C BC #### [facility] [address] [place] [address] Dr. Prince Olivas Lymphocytes/100 WBC (Bld) 27.6 % Normal 20.5-60.0 [facility] Comment on above: Performed By: #### C BC #### [facility] [address] [place] [address] Dr. Prince Olivas MANUAL DIFF REQ NO Normal [facility] Comment on above: Performed By: #### C BC #### [facility] [address] [place] [address] Dr. Prince Olivas MCH (RBC) [Entitic mass] 31.4 pg Normal 26.7-34.0 [facility] Comment on above: Performed By: #### C BC #### [facility] [address] [place] [address] Dr. Prince Olivas MCHC (RBC) [Mass/Vol] 32.9 g/dL Normal 29.9-35.2 [facility] Comment on above: Performed By: #### C BC #### [facility] [address] [place] [address] Dr. Prince Olivas MCV (RBC) [Entitic vol] 95.3 fL Normal 81.0-99.0 [facility] Comment on above: Performed By: #### C BC #### [facility] [address] [place] [address] Dr. Prince Olivas MONO # 0.6 103/ul Normal 0.3-0.8 [facility] Comment on above: Performed By: #### C BC #### [facility] [address] [place] [address] Dr. Prince Olivas Monocytes/100 WBC (Bld) 8.2 % Normal 1.7-12.0 [facility] Comment on above: Performed By: #### C BC #### [facility] [address] [place] [address] Dr. Prince Olivas NEUT # 4.2 103/ul Normal 1.4-6.5 [facility] Comment on above: Performed By: #### C BC #### [facility] [address] [place] [address] Dr. Prince Olivas Neutrophils/100 WBC (Bld) 59.6 % Normal 43.0-75.0 [facility] Comment on above: Performed By: #### C BC #### [facility] [address] [place] [address] Dr. Prince Olivas Platelet mean volume (Bld) [Entitic vol] 11.1 fL Normal 9.5-13.5 [facility] Comment on above: Performed By: #### C BC #### [facility] [address] [place] [address] Dr. Prince Olivas PLT 194 103/ul Normal 150-450 [facility] Comment on above: Performed By: #### C BC #### [facility] [address] [place] [address] Dr. Prince Olivas RBC 4.49 106/ul Normal 4.20-5.40 [facility] Comment on above: Performed By: #### C BC #### [facility] [address] [place] [address] Dr. Prince Olivas WBC 7.1 103/ul Normal 4.0-11.0 [facility] Comment on above: Performed By: #### C BC #### [facility] [address] [address] [address] Prince Olivas PROF 14(COMP METB)on 022 Albumin [Mass/Vol] 3.9 g/dL Normal 3.4-5.0 [facility] Comment on above: Performed By: #### M MA2 #### [facility] [address] [address] [address] Prince Olivas Albumin/Globulin [Mass ratio] 1.4 {ratio} Normal [facility] Comment on above: Performed By: #### M MA2 #### [facility] [address] [address] [address] Prince Olivas ALP [Catalytic activity/Vol] 71 U/L Normal 46-116 [facility] Comment on above: Performed By: #### M MA2 #### [facility] [address] [place] [address] Dr. Prince Olivas ALT [Catalytic activity/Vol] 18 U/L Normal 14-59 [facility] Comment on above: Performed By: #### M MA2 #### [facility] [address] [address] [address] Prince Olivas Anion gap [Moles/Vol] 10.1 mmol/L Normal [facility] Comment on above: Performed By: #### M MA2 #### [facility] [address] [place] [address] Dr. Prince Olivas AST [Catalytic activity/Vol] 11 U/L Critically low 15-37 [facility] Comment on above: Performed By: #### M MA2 #### [facility] [address] [place] [address] Dr. Prince Olivas Bilirubin [Mass/Vol] 0.4 mg/dL Normal 0.2-1.0 [facility] Comment on above: Performed By: #### M MA2 #### [facility] [address] [place] [address] Dr. Prince Olivas Calcium [Mass/Vol] 8.8 mg/dL Normal 8.5-10.1 [facility] Comment on above: Performed By: #### M MA2 #### [facility] [address] [address] [address] Prince Olivas Chloride [Moles/Vol] 105 mmol/L Normal 98-107 [facility] Comment on above: Performed By: #### M MA2 #### [facility] [address] [address] [address] Prince Olivas CO2 [Moles/Vol] 27.0 mmol/L Normal 21.0-32.0 [facility] Comment on above: Performed By: #### M MA2 #### [facility] [address] [address] [address] Prince Olivas Creatinine [Mass/Vol] 0.67 mg/dL Normal 0.55-1.02 [facility] Comment on above: Performed By: #### M MA2 #### [facility] [address] [address] [address] Prince Olivas EGFR-AF ERITREAN >60 Normal >=60 [facility] Comment on above: Performed By: #### Marine MA2 #### [facility] [address] [address] [address] Prince Oliavs EGFR-NON AF ERITREAN >60 Normal >=60 [facility] Comment on above: Performed By: #### M MA2 #### [facility] [address] [address] [address] Prince Olivas Globulin (S) [Mass/Vol] 2.7 g/dL Normal [facility] Comment on above: Performed By: #### M MA2 #### [facility] [address] [address] [address] Prince Olivas Glucose [Mass/Vol] 105 mg/dL Normal 74-106 [facility] Comment on above: Performed By: #### M MA2 #### [facility] [address] [address] [address] Prince Olivas Potassium [Moles/Vol] 4.1 mmol/L Normal 3.5-5.1 [facility] Comment on above: Performed By: #### M MA2 #### [facility] [address] [address] [address] Prince Olivas Protein [Mass/Vol] 6.6 g/dL Normal 6.4-8.2 [facility] Comment on above: Performed By: #### M MA2 #### [facility] [address] [address] [address] Prince Olivas Sodium [Moles/Vol] 138 mmol/L Normal 136-145 [facility] Comment on above: Performed By: #### M MA2 #### [facility] [address] [address] [address] Prince Olivas Urea nitrogen [Mass/Vol] 7.0 mg/dL Normal 7.0-18.0 [facility] Comment on above: Performed By: #### M MA2 #### [facility] [address] [address] [address] Prince Olivas Urea nitrogen/Creatinine [Mass ratio] 10.4 mg/mg Normal [facility] Comment on above: Performed By: #### M MA2 #### [facility] [address] [address] [address] Prince Olivas XR CHEST 1 Von [...] BARBI HENRY Date: 2021-10-04 10:58 Normal The [facility] PROLACTINon 09-26-2021 Prolactin 149.0 ng/mL Critically high 4.8-23.3 [facility] Comment on above: Performed By: #### L IPID, CMP #### [facility] [address] [address] [address] Prince Olivas LIPID PROFILEon 09-25-2021 CHOL-HDL RATIO NORM SEE BELOW Normal [facility] Comment on above: Result Comment: 3.3 - 4.4 LOW RISK 4.4 - 7.1 AVERAGE RISK 7.1 - 11.0 MODERATE RISK >11.0 HIGH RISK Performed By: #### L IPID, CMP #### [facility] [address] [address] [address] Prince Olivas Cholesterol [Mass/Vol] 205 mg/dL Critically high <=200 [facility] Comment on above: Performed By: #### L IPID, CMP #### [facility] [address] [address] [address] Prince Olivas Cholesterol in HDL [Mass/Vol] 46 mg/dL Normal 40-60 [facility] Comment on above: Performed By: #### L IPID, CMP #### [facility] [address] [address] [address] Prince Olivas Cholesterol in LDL [Mass/Vol] 148.6 mg/dL Normal [facility] Comment on above: Performed By: #### L IPID, CMP #### [facility] [address] [place] [address] Dr. Prince Olivas Cholesterol.total/C holesterol in HDL [Mass ratio] 4.5 {ratio} Normal [facility] Comment on above: Performed By: #### L IPID, CMP #### [facility] [address] [place] [address] Dr. Prince Olivas HDL NORMAL > or = 60 mg/dl - LO W CARDIOVASCULAR RISK <40 mg/dl - HIGH CARDIOVASCULAR RISK Normal [facility] Comment on above: Performed By: #### L IPID, CMP #### [facility] [address] [place] [address] Dr. Prince Olivas LDL CALC NORMAL SEE BELOW Normal [facility] Comment on above: Result Comment: <100 mg/dl OPTIMAL 100 - 129 mg/dl NEAR OR ABOVE OPTIMAL 130 - 159 mg/dl BORDERLINE HIGH 160 - 189 mg/dl HIGH >190 mg/dl VERY HIGH Performed By: #### L IPID, CMP #### [facility] [address] [address] [address] Prince Olivas Triglyceride [Mass/Vol] 52 mg/dL Normal <=150 [facility] Comment on above: Performed By: #### L IPID, CMP #### [facility] [address] [place] [address] Dr. Prince Olivas VLDL CALC 10.4 mg/dL Normal [facility] Comment on above: Performed By: #### L IPID, CMP #### [facility] [address] [place] [address] Dr. Prince Olivas PROF 14(COMP METB)on 022 Albumin [Mass/Vol] 3.7 g/dL Normal 3.4-5.0 [facility] Comment on above: Performed By: #### L IPID, CMP #### [facility] [address] [place] [address] Dr. Prince Olivas Albumin/Globulin [Mass ratio] 1.5 {ratio} Normal [facility] Comment on above: Performed By: #### L IPID, CMP #### [facility] [address] [place] [address] Dr. Prince Olivas ALP [Catalytic activity/Vol] 66 U/L Normal 46-116 [facility] Comment on above: Performed By: #### L IPID, CMP #### [facility] [address] [place] [address] Dr. Prince Olivas ALT [Catalytic activity/Vol] 14 U/L Normal 14-59 [facility] Comment on above: Performed By: #### L IPID, CMP #### [facility] [address] [place] [address] Dr. Prince Olivas Anion gap [Moles/Vol] 13.8 mmol/L Normal [facility] Comment on above: Performed By: #### L IPID, CMP #### [facility] [address] [place] [address] Dr. Prince Olivas AST [Catalytic activity/Vol] 10 U/L Critically low 15-37 [facility] Comment on above: Performed By: #### L IPID, CMP #### [facility] [address] [place] [address] Dr. Prince Olivas Bilirubin [Mass/Vol] 0.3 mg/dL Normal 0.2-1.0 [facility] Comment on above: Performed By: #### L IPID, CMP #### [facility] [address] [address] [address] Prince Olivas Calcium [Mass/Vol] 8.9 mg/dL Normal 8.5-10.1 [facility] Comment on above: Performed By: #### L IPID, CMP #### [facility] [address] [address] [address] Prince Olivas Chloride [Moles/Vol] 106 mmol/L Normal 98-107 [facility] Comment on above: Performed By: #### L IPID, CMP #### [facility] [address] [address] [address] Prince Olivas CO2 [Moles/Vol] 24.0 mmol/L Normal 21.0-32.0 [facility] Comment on above: Performed By: #### L IPID, CMP #### [facility] [address] [place] [address] Dr. Prince Olivas Creatinine [Mass/Vol] 1.05 mg/dL Critically high 0.55-1.02 [facility] Comment on above: Performed By: #### L IPID, CMP #### [facility] [address] [place] [address] Dr. Prince Olivas EGFR-AF ERITREAN >60 Normal >=60 [facility] Comment on above: Performed By: #### L IPID, CMP #### [facility] [address] [place] [address] Dr. Prince Olivas EGFR-NON AF ERITREAN 55 mL/min/1.73m2 Critically low >=60 [facility] Comment on above: Performed By: #### L IPID, CMP #### [facility] [address] [place] [address] Dr. Prince Olivas Globulin (S) [Mass/Vol] 2.5 g/dL Normal [facility] Comment on above: Performed By: #### L IPID, CMP #### [facility] [address] [address] [address] Prince Olivas Glucose [Mass/Vol] 107 mg/dL Critically high 74-106 [facility] Comment on above: Performed By: #### L IPID, CMP #### [facility] [address] [address] [address] Prince Olivas Potassium [Moles/Vol] 3.8 mmol/L Normal 3.5-5.1 [facility] Comment on above: Performed By: #### L IPID, CMP #### [facility] [address] [place] [address] Dr. Prince Olivas Protein [Mass/Vol] 6.2 g/dL Critically low 6.4-8.2 [facility] Comment on above: Performed By: #### L IPID, CMP #### [facility] [address] [address] [address] Prince Olivas Sodium [Moles/Vol] 140 mmol/L Normal 136-145 [facility] Comment on above: Performed By: #### L IPID, CMP #### [facility] [address] [place] [address] Dr. Prince Olivas Urea nitrogen [Mass/Vol] 10.0 mg/dL Normal 7.0-18.0 [facility] Comment on above: Performed By: #### L IPID, CMP #### [facility] [address] [place] [address] Dr. Prince Olivas Urea nitrogen/Creatinine [Mass ratio] 9.5 mg/mg Normal [facility] Comment on above: Performed By: #### L IPID, CMP #### [facility] [address] [place] [address] Dr. Prince Olivas Vital Signs Date Time Vital Sign Value Performing Clinician Facility 03-23-2024 13:10-0500 Blood Pressure Location Sandoval Rae [facility] 03-23-2024 13:10-0500 Diastolic blood pressure 70 mm[Hg] Sandoval Rae [facility] 03-23-2024 13:10-0500 Heart rate 96 /min Sandoval Rae [facility] 03-23-2024 13:10-0500 Systolic blood pressure 102 mm[Hg] Mohamad Mouchli [facility] 02-25-2024 11:16-0500 Diastolic blood pressure 64 mm[Hg] Mohamad Mouchli [facility] 02-25-2024 11:16-0500 Heart rate 71 /min Mohamad Mouchli [facility] 02-25-2024 11:16-0500 Mean blood pressure 80 mm[Hg] Mohamad Mouchli [facility] 02-25-2024 11:16-0500 Respiratory rate 10 /min Mohamad Mouchli [facility] 02-25-2024 11:16-0500 SaO2% (BldA) [Mass fraction] 96 % Mohamad Mouchli [facility] 02-25-2024 11:16-0500 Systolic blood pressure 113 mm[Hg] Mohamad Mouchli [facility] 02-25-2024 11:05-0500 Diastolic blood pressure 75 mm[Hg] Mohamad Mouchli [facility] 02-25-2024 11:05-0500 Heart rate 73 /min Mohamad Mouchli [facility] 02-25-2024 11:05-0500 Mean blood pressure 86 mm[Hg] Mohamad Mouchli [facility] 02-25-2024 11:05-0500 Respiratory rate 18 /min Mohamad Mouchli [facility] 02-25-2024 11:05-0500 SaO2% (BldA) [Mass fraction] 95 % Mohamad Mouchli [facility] 02-25-2024 11:05-0500 Systolic blood pressure 107 mm[Hg] Mohamad Mouchli [facility] 02-25-2024 10:51-0500 Body temperature 98.24 [degF] Mohamad Mouchli [facility] 02-25-2024 10:51-0500 Diastolic blood pressure 92 mm[Hg] Mohamad Mouchli [facility] 02-25-2024 10:51-0500 Heart rate 81 /min Mohamad Mouchli [facility] 02-25-2024 10:51-0500 Mean blood pressure 96 mm[Hg] Mohamad Mouchli [facility] 02-25-2024 10:51-0500 Respiratory rate 18 /min Mohamad Mouchli [facility] 02-25-2024 10:51-0500 SaO2% (BldA) [Mass fraction] 97 % Mohamad Mouchli [facility] 02-25-2024 10:51-0500 Systolic blood pressure 103 mm[Hg] Mohamad Mouchli [facility] 02-25-2024 10:45-0500 Respiratory rate 15 /min Mohamad Mouchli [facility] 02-25-2024 10:40-0500 Respiratory rate 16 /min Mohamad Mouchli [facility] 02-25-2024 10:35-0500 Respiratory rate 17 /min Mohamad Mouchli [facility] 02-25-2024 09:14-0500 Blood Pressure Location Mohamad Mouchli [facility] 02-25-2024 09:14-0500 Body temperature 97.88 [degF] Mohamad Mouchli [facility] 02-21-2024 08:41-0500 Blood Pressure Location Mohamad Mouchli [facility] 02-21-2024 08:41-0500 Diastolic blood pressure 83 mm[Hg] Mohamad Mouchli [facility] 02-21-2024 08:41-0500 Heart rate 80 /min Mohamad Mouchli [facility] 02-21-2024 08:41-0500 Systolic blood pressure 134 mm[Hg] Mohamad Mouchli [facility] 01-16-2024 10:08-0400 Blood Pressure Location Mohamad Mouchli [facility] 01-16-2024 10:08-0400 Diastolic blood pressure 76 mm[Hg] Mohamad Mouchli [facility] 01-16-2024 10:08-0400 Heart rate 73 /min Mohamad Mouchli [facility] 01-16-2024 10:08-0400 Systolic blood pressure 116 mm[Hg] Mohamad Mouchli [facility] 09-24-2023 15:00-0400 Diastolic blood pressure 78 mm[Hg] José Luis Resendiz [facility] 09-24-2023 15:00-0400 Heart rate 66 /min José Luis Resendiz [facility] 09-24-2023 15:00-0400 Mean blood pressure 95 mm[Hg] José Luis Astrid [facility] 09-24-2023 15:00-0400 Respiratory rate 16 /min José Luis Moee [facility] 09-24-2023 15:00-0400 Systolic blood pressure 128 mm[Hg] José Luis Moee [facility] 09-24-2023 14:00-0400 Diastolic blood pressure 69 mm[Hg] José Luis Moee [facility] 09-24-2023 14:00-0400 Heart rate 75 /min José Luis Moee [facility] 09-24-2023 14:00-0400 Mean blood pressure 88 mm[Hg] José Luis Moee [facility] 09-24-2023 14:00-0400 SaO2% (BldA) [Mass fraction] 95 % José Luis Moee [facility] 09-24-2023 14:00-0400 Systolic blood pressure 126 mm[Hg] José Luis Moee [facility] 09-24-2023 12:58-0400 Body temperature 98.06 [degF] José Luis Moee [facility] 09-24-2023 12:58-0400 Diastolic blood pressure 82 mm[Hg] José Luis Moee [facility] 09-24-2023 12:58-0400 Heart rate 89 /min José Luis Moee [facility] 09-24-2023 12:58-0400 Respiratory rate 18 /min José Luis Moee [facility] 09-24-2023 12:58-0400 SaO2% (BldA) [Mass fraction] 96 % José Luis Moee [facility] 09-24-2023 12:58-0400 Systolic blood pressure 125 mm[Hg] José Luis Resendiz [facility] 04-04-2022 15:50-0500 Diastolic blood pressure 70 mm[Hg] Tiffani Morales MD Work Phone: [facility] 04-04-2022 15:50-0500 Heart rate 73 /min Tiffani Morales MD Work Phone: [facility] 04-04-2022 15:50-0500 Respiratory rate 16 /min Tiffani Morales MD Work Phone: [facility] 04-04-2022 15:50-0500 SaO2% (BldA) [Mass fraction] 97 % Tiffani Morales MD Work Phone: [facility] 04-04-2022 15:50-0500 Systolic blood pressure 117 mm[Hg] Tiffani Morales MD Work Phone: [facility] 04-04-2022 15:26-0500 Body temperature 97.2 [degF] Tiffani Morales MD Work Phone: [facility] 04-04-2022 12:51-0500 Body height 172.7 cm Tiffani Morales MD Work Phone: [facility] 04-04-2022 12:51-0500 Body weight 45.81 kg Tiffani Morales MD Work Phone: [facility] 01-01-2022 16:50-0400 Diastolic blood pressure 69 mm[Hg] Tiffani Morales MD Work Phone: [facility] 01-01-2022 16:50-0400 Heart rate 69 /min Tiffani Morales MD Work Phone: [facility] 01-01-2022 16:50-0400 Respiratory rate 16 /min Tiffani Morales MD Work Phone: [facility] 01-01-2022 16:50-0400 SaO2% (BldA) [Mass fraction] 95 % Tiffani Morales MD Work Phone: [facility] 01-01-2022 16:50-0400 Systolic blood pressure 110 mm[Hg] Tiffani Morales MD Work Phone: [facility] 01-01-2022 16:33-0400 Body temperature 98.1 [degF] Tiffani Morales MD Work Phone: [facility] 01-01-2022 15:39-0400 Body height 172.7 cm Tiffani Morales MD Work Phone: [facility] 01-01-2022 15:39-0400 Body weight 45.81 kg Tiffani Morales MD Work Phone: [facility] 06-20-2021 13:37-0400 Body height 174 cm Robb Evans MD Work Phone: [facility] 06-20-2021 13:37-0400 Body mass index (BMI) [Ratio] 17.98 kg/m2 Robb Evans MD Work Phone: [facility] 06-20-2021 13:37-0400 Body weight 54.43 kg Robb Evans MD Work Phone: [facility] 06-20-2021 13:37-0400 Diastolic blood pressure 69 mm[Hg] Robb Evans MD Work Phone: [facility] 06-20-2021 13:37-0400 Heart rate 77 /min Robb Evans MD Work Phone: [facility] 06-20-2021 13:37-0400 Respiratory rate 16 /min Robb Evans MD Work Phone: [facility] 06-20-2021 13:37-0400 SaO2% (BldA) [Mass fraction] 95 % Robb Evans MD Work Phone: [facility] 06-20-2021 13:37-0400 Systolic blood pressure 102 mm[Hg] Robb Evans MD Work Phone: [facility] 07-18-2020 14:10-0400 Body height 174 cm Upender Gehlot MD Work Phone: [facility] 07-18-2020 14:10-0400 Body mass index (BMI) [Ratio] 17.38 kg/m2 Robb Evans MD Work Phone: [facility] 07-18-2020 14:10-0400 Body weight 52.62 kg Robb Evans MD Work Phone: [facility] 07-18-2020 14:10-0400 Diastolic blood pressure 68 mm[Hg] Robb Evans MD Work Phone: [facility] 07-18-2020 14:10-0400 Heart rate 84 /min Robb Evans MD Work Phone: [facility] 07-18-2020 14:10-0400 Respiratory rate 16 /min Robb Evans MD Work Phone: [facility] 07-18-2020 14:10-0400 SaO2% (BldA) [Mass fraction] 96 % Robb Evans MD Work Phone: [facility] 07-18-2020 14:10-0400 Systolic blood pressure 94 mm[Hg] Robb Evans MD Work Phone: [facility] Encounters Encounter Date Encounter Type Care Provider Facility Start: 03-23-2024 End: 03-23-2024 ambulatory Sandoval Rae Facility:[facility] Start: 03-23-2024 End: 03-23-2024 Patient encounter procedure Sandoval Rae [facility] Start: 03-15-2024 End: 03-15-2024 ambulatory Eligio Noe Facility:[facility] Start: 02-25-2024 End: 02-25-2024 ambulatory [facility]oval Rae [place] Start: 02-25-2024 End: 02-25-2024 Patient encounter procedure Sandoval Rae [facility] Start: 02-21-2024 End: 02-21-2024 ambulatory [facility] Start: 02-21-2024 End: 02-21-2024 Patient encounter procedure Mohamad A. Mouchli [facility] Start: 02-18-2024 End: 02-18-2024 ambulatory Lala L Carolee Facility:[facility] Start: 02-05-2024 End: 02-05-2024 ambulatory [facility] Start: 02-05-2024 End: 02-05-2024 Patient encounter procedure Mohamad A. Mouchli [facility] Start: 01-27-2024 End: 01-27-2024 ambulatory Mohamad A. Mouchli [place] Start: 01-27-2024 End: 01-27-2024 Patient encounter procedure Mohamad A. Mouchli [facility] Start: 01-16-2024 End: 01-16-2024 ambulatory [facility] Start: 01-16-2024 End: 01-16-2024 Patient encounter procedure Mohamad A. Mouchli [facility] Start: 11-26-2023 End: 11-26-2023 ambulatory Lala L Carolee Facility:[facility] Start: 10-03-2023 End: 10-03-2023 ambulatory Lala L Carolee Facility:[facility] Start: 09-27-2023 ambulatory CHANCE ZACH Facility:[facility] Start: 09-24-2023 End: 09-24-2023 Emergency department patient visit José Luis Resendiz [facility] Start: 05-08-2022 Telephone encounter Tiffani valencia MD Work Phone: Gastroenterology Comment on above: Patient Question Start: 05-07-2022 End: 05-08-2022 ambulatory IRINA SEGURA Facility:[facility] Start: 04-24-2022 End: 04-24-2022 ambulatory CRISTINA ALEE IQBAL Facility:[facility] Start: 04-24-2022 End: 04-24-2022 Nutrition therapy Tiffani Morales MD Work Phone: Gastroenterology Comment on above: Severe malnutrition (HCC) (Primary Dx) Start: 04-24-2022 End: 04-24-2022 Telemedicine consultation with patient Tiffani Morales MD Work Phone: [facility] Start: 04-20-2022 Refill Robb Evans MD Work Phone: [facility] Start: 04-12-2022 Refill Saúl SHORT [facility] Comment on above: Generalized anxiety disorder Start: 04-05-2022 Telephone encounter Tiffani valencia MD Work Phone: Gastroenterology Comment on above: Refill Request Start: 04-04-2022 End: 04-04-2022 ambulatory FREDERICK CHAVES Facility:[facility] Start: 04-04-2022 End: 04-04-2022 Subsequent hospital visit by physician Tiffani Morales MD Work Phone: Gastroenterology Comment on above: 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] Start: 03-31-2022 End: 04-01-[address] DOCTOR BERMEO Facility:[facility] Start: 03-28-2022 End: 03-29-[address] BRITNI SIMPSON Facility:[facility] Start: 03-28-2022 Telephone encounter Eduardo Harrington RNtelephoto engineer Comment on above: Appointment Confirma tion Start: 03-20-2022 Refill Saúl SHORT [facility] Start: 03-14-2022 Refill Anastasiya Steviedomi PA-C Work Phone: Gastroenterology Comment on above: Refill Request Start: 03-09-2022 Refill Goukl Maurilio [facility] Comment on above: Generalized anxiety disorder Start: 03-01-2022 End: 03-01-2022 ambulatory CRISTINA [facility] Facility:[facility] Start: 03-01-2022 End: 03-01-2022 Nutrition therapy Tiffani Morales MD Work Phone: Gastroenterology Comment on above: Severe protein-calor ie malnutrition (HCC) (Primary Dx); 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); Weight loss; Severe malnutrition (HCC) Start: 03-01-2022 End: 03-01-2022 Telemedicine consultation with patient Tiffani Morales MD Work Phone: [facility] Start: 02-07-2022 ambulatory Yan wood MD Work Phone: Gastroenterology Start: 02-07-2022 Patient encounter procedure Yan Garcia Jr., MD Work Phone: [facility] Start: 02-07-2022 Refill Anastasiya Ovidioi PA-C Work Phone: Gastroenterology Comment on above: Refill Request Start: 02-06-2022 End: 02-07-2022 ambulatory CRISTINA [facility] Facility:[facility] Start: 02-05-2022 End: 02-05-2022 ambulatory CRISTINA [facility] Facility:[facility] Start: 01-29-2022 ambulatory Dolores Lopez RN Gastr oenterology Start: 01-29-2022 Patient encounter procedure Dolores Lopez RN [facility] Start: 01-29-2022 End: 01-29-2022 Subsequent hospital visit by physician Capsule Work Phone: Gastroenterology Comment on above: Arrived Start: 01-17-2022 ambulatory Roshni Reyes ty:Thuy ELLIOTT Start: 01-16-2022 Refill Gokul Maurilio CAMPBELL [facility] Start: 01-05-2022 Telephone encounter [...] 01-01-2022 End: 01-01-2022 ambulatory KIRSTEN Srini DALTON Facility:[facility] Start: 01-01-2022 End: 01-01-2022 Subsequent hospital visit by physician Tiffani Morales MD Work Phone: Gastroenterology Comment on above: Nausea and vomiting, unspecified vomiting type [R11.2] Start: 12-25-2021 Telephone encounter Rima Gerard RNtelephoto engineer Comment on above: Appointment Start: 12-19-2021 End: 12-19-2021 ambulatory CRISTINA Saleh [facility] Start: 12-15-2021 End: 12-16-2021 ambulatory Anastasiya Mosqueda PA-C Work Phone: Gastroenterology Comment on above: Nausea and vomiting, unspecified vomiting type (Primary Dx); Left upper quadrant abdominal pain; Weight loss Start: 12-15-2021 End: 12-15-2021 Telemedicine consultation with patient Anastasiya Aceveschandler PA-C Work Phone: [facility] Start: 12-14-2021 End: 12-14-2021 ambulatory ANASTASIYA MOSQUEDA Facility:[facility] Start: 12-14-2021 End: 12-14-2021 Patient encounter procedure Anastasiya Jaylin PA-C Work Phone: Gastroenterology Comment on above: APPOINTMENT CANCELLE D (Primary Dx) Start: 12-14-2021 End: 12-14-2021 Telemedicine consultation with patient Anastasiya Mosqueda JEFFDeyaOsbaldo Work Phone: [facility] Start: 12-13-2021 Telephone encounter Anastasiya kimbrough JEFFDeyaOsbaldo Work Phone: Gastroenterology Comment on above: Appointment Start: 12-11-2021 End: 12-11-2021 ambulatory CSW CRISTINA IQBAL Facility:[facility] Start: 12-03-2021 End: 12-03-2021 Emergency department patient visit Vipin Pina [place] Start: 11-14-2021 End: 11-14-2021 ambulatory CSW CRISTINA ROGER Facility:[facility] Start: 11-09-2021 End: 11-09-2021 ambulatory CSW CRISTINA ROGER Facility:[facility] Start: 10-04-2021 End: 10-04-2021 ambulatory CSW CRISTINA IQBAL Facility:[facility] Start: 10-03-2021 Refill Robb Evans MD Work Phone: [facility] Start: 09-27-2021 Documentation procedure Zuleyma Evans MD Work Phone: [facility] Start: 09-25-2021 End: 09-26-2021 ambulatory ROBB EVANS Facility:[facility] Start: 09-19-2021 End: 09-19-2021 [facility] Start: 09-19-2021 End: 09-19-2021 Office outpatient visit 25 minutes Robb Evans MD Work Phone: [facility] Comment on above: Bipolar 1 disorder, mixed, mild (HCC) (Primary Dx); Generalized anxiety disorder; Long-term use of high-risk medication Start: 09-15-2021 Refill Fartun Mack LPN [facility] Comment on above: Generalized anxiety disorder Start: 06-20-2021 End: 06-20-2021 [facility] Start: 06-20-2021 End: 06-20-2021 Office outpatient visit 25 minutes Robb Evans MD Work Phone: [facility] Comment on above: Generalized anxiety disorder (Primary Dx); Bipolar 1 disorder, mixed, mild (HCC); Long-term use of high-risk medication; Post traumatic stress disorder (PTSD) Start: 04-03-2021 Refill [facility] Maurilio ADRIAN [facility] Comment on above: Generalized anxiety disorder Start: 03-01-2021 End: 03-01-2021 Phys/qhp telephone evaluation 11-20 min Upobdulio Evans MD Work Phone: [facility] Comment on above: Bipolar 1 disorder, mixed, mild (HCC) (Primary Dx); Generalized anxiety disorder; Long-term use of high-risk medication Start: 03-01-2021 End: 03-01-2021 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); Generalized anxiety disorder; Long-term use of high-risk medication Start: 07-18-2020 End: 07-18-2020 Office outpatient visit 25 minutes Robb Evans MD Work Phone: [facility] Comment on above: [...] malign ant neoplasm of colon [facility] Start: 04-27-2022 End: 04-27-2022 Patient encounter procedure 04/27/2022 Office Visit Psychiatry Robb Evans MD [address] [facility] [address] [id number] [facility] Start: 03-26-2022 End: 03-26-2022 Patient encounter procedure 03/26/2022 Office Visit Robb Patton MD [address] [place] [phone] [facility] Start: 03-18-2022 DEPRESSION ASSESSMENT DEPRESSION ASS ESSMENT [facility] Start: 03-02-2022 End: 03-01-2023 25-hydroxyvitamin D3 [Mass/volume] in Serum or Plasma VITAMIN D 25 HYDROXY Lab Routine Severe protein-calorie malnutrition (HCC) Expected: 03/02/2022 (Approximate), Expires: 03/01/2023 [facility] Work Phone: Comment on above: Expected: 03/02/2022 (Approximate), Expires: 03/01/2023 Start: 03-02-2022 End: 03-01-2023 Alpha tocopherol [Mass/volume] in Serum or Plasma VITAMIN E/TOCOPHEROL Lab Routine Severe protein-calorie malnutrition (HCC) Expected: 03/02/2022 (Approximate), Expires: 03/01/2023 [facility] Work Phone: Comment on above: Expected: 03/02/2022 (Approximate), Expires: 03/01/2023 Start: 03-02-2022 End: 03-01-2023 C reactive protein [Mass/volume] in Serum or Plasma C-REACTIVE PROTEIN (CRP) Lab Routine Severe protein-calorie malnutrition (HCC) Expected: 03/02/2022 (Approximate), Expires: 03/01/2023 [facility] Work Phone: Comment on above: Expected: 03/02/2022 (Approximate), Expires: 03/01/2023 Start: 03-02-2022 End: 03-01-2023 CBC W Auto Differential panel - Blood CBC + DIFF Lab Routine Severe protein-calorie malnutrition (HCC) Expected: 03/02/2022 (Approximate), Expires: 03/01/2023 [facility] Work Phone: Comment on above: Expected: 03/02/2022 (Approximate), Expires: 03/01/2023 Start: 03-02-2022 End: 03-01-2023 Cobalamin (Vitamin B12) [Mass/volume] in Serum or Plasma VITAMIN B12 BLOOD Lab Routine Severe protein-calorie malnutrition (HCC) Expected: 03/02/2022 (Approximate), Expires: 03/01/2023 [facility] Work Phone: Comment on above: Expected: 03/02/2022 (Approximate), Expires: 03/01/2023 Start: 03-02-2022 End: 03-01-2023 Comprehensive metabolic 2000 panel - Serum or Plasma COMP METABOLIC PANEL Lab Routine Severe protein-calorie malnutrition (HCC) Expected: 03/02/2022 (Approximate), Expires: 03/01/2023 [facility] Work Phone: Comment on above: Expected: 03/02/2022 (Approximate), Expires: 03/01/2023 Start: 03-02-2022 End: 03-01-2023 COPPER BLOOD COPPER BLOOD Lab Routine Severe protein-calorie malnutrition (HCC) Expected: 03/02/2022 (Approximate), Expires: 03/01/2023 [facility] Work Phone: Comment on above: Expected: 03/02/2022 (Approximate), Expires: 03/01/2023 Start: 03-02-2022 End: 03-01-2023 FATTY ACIDS PROFILE, ESSENTIAL FATTY ACIDS PROFILE, ESSENTIAL Lab Routine Severe protein-calorie malnutrition (HCC) Expected: 03/02/2022 (Approximate), Expires: 03/01/2023 [facility] Work Phone: Comment on above: Expected: 03/02/2022 (Approximate), Expires: 03/01/2023 Start: 03-02-2022 End: 03-01-2023 Ferritin [Mass/volume] in Serum or Plasma FERRITIN BLD Lab Routine Severe protein-calorie malnutrition (HCC) Expected: 03/02/2022 (Approximate), Expires: 03/01/2023 [facility] Work Phone: Comment on above: Expected: 03/02/2022 (Approximate), Expires: 03/01/2023 Start: 03-02-2022 End: 03-01-2023 Iron and Iron binding capacity panel - Serum or Plasma IRON + TIBC Lab Routine Severe protein-calorie malnutrition (HCC) Expected: 03/02/2022 (Approximate), Expires: 03/01/2023 [facility] Work Phone: Comment on above: Expected: 03/02/2022 (Approximate), Expires: 03/01/2023 Start: 03-02-2022 End: 03-01-2023 Magnesium [Mass/volume] in Serum or Plasma MAGNESIUM BLD Lab Routine Severe protein-calorie malnutrition (HCC) Expected: 03/02/2022 (Approximate), Expires: 03/01/2023 [facility] Work Phone: Comment on above: Expected: 03/02/2022 (Approximate), Expires: 03/01/2023 Start: 03-02-2022 End: 03-01-2023 Methylmalonate [Moles/volume] in Serum or Plasma METHYLMALONIC ACID Lab Routine Severe protein-calorie malnutrition (HCC) Expected: 03/02/2022 (Approximate), Expires: 03/01/2023 [facility] Work Phone: Comment on above: Expected: 03/02/2022 (Approximate), Expires: 03/01/2023 Start: 03-02-2022 End: 03-01-2023 Phosphate [Mass/volume] in Serum or Plasma PHOSPHORUS INORGANIC Lab Routine Severe protein-calorie malnutrition (HCC) Expected: 03/02/2022 (Approximate), Expires: 03/01/2023 [facility] Work Phone: Comment on above: Expected: 03/02/2022 (Approximate), Expires: 03/01/2023 Start: 03-02-2022 End: 03-01-2023 PT panel - Platelet poor plasma by Coagulation assay PROTHROMBIN TIME/PT Lab Routine Severe protein-calorie malnutrition (HCC) Expected: 03/02/2022 (Approximate), Expires: 03/01/2023 [facility] Work Phone: Comment on above: Expected: 03/02/2022 (Approximate), Expires: 03/01/2023 Start: 03-02-2022 End: 03-01-2023 RBC FOLATE RBC FOLATE Lab Routine Severe protein-calorie malnutrition (HCC) Expected: 03/02/2022 (Approximate), Expires: 03/01/2023 [facility] Work Phone: Comment on above: Expected: 03/02/2022 (Approximate), Expires: 03/01/2023 Start: 03-02-2022 End: 03-01-2023 Retinol [Mass/volume] in Serum or Plasma VITAMIN A/RETINOL Lab Routine Severe protein-calorie malnutrition (HCC) Expected: 03/02/2022 (Approximate), Expires: 03/01/2023 [facility] Work Phone: Comment on above: Expected: 03/02/2022 (Approximate), Expires: 03/01/2023 Start: 03-02-2022 End: 03-01-2023 Selenium [Mass/volume] in Blood SELENIUM BLOOD Lab Routine Severe protein-calorie malnutrition (HCC) Expected: 03/02/2022 (Approximate), Expires: 03/01/2023 [facility] Work Phone: Comment on above: Expected: 03/02/2022 (Approximate), Expires: 03/01/2023 Start: 03-02-2022 End: 03-01-2023 Triglyceride [Mass/volume] in Serum or Plasma TRIGLYCERIDES BLD Lab Routine Severe protein-calorie malnutrition (HCC) Expected: 03/02/2022 (Approximate), Expires: 03/01/2023 [facility] Work Phone: Comment on above: Expected: 03/02/2022 (Approximate), Expires: 03/01/2023 Start: 03-02-2022 End: 03-01-2023 Zinc [Mass/volume] in Serum or Plasma ZINC BLD Lab Routine Severe protein-calorie malnutrition (HCC) Expected: 03/02/2022 (Approximate), Expires: 03/01/2023 [facility] Work Phone: Comment on above: Expected: 03/02/2022 (Approximate), Expires: 03/01/2023 Start: 12-19-2021 End: 12-19-2021 Patient encounter procedure 12/19/2021 Office Visit Psychiatry Robb Evans MD [address] [place] [phone] [facility] Start: 11-16-2021 Influenza vaccination [facility] Start: 09-19-2021 End: 09-19-2021 Patient encounter procedure 09/19/2021 Office Visit Psychiatry Robb Evans MD [address] [facility] [address] [place] [phone] [facility] Start: 09-15-2021 End: 09-15-2021 Patient encounter procedure 09/15/2021 Office Visit Psychiatry Robb Evans MD [address] [facility] [address] [place] [phone] [facility] Start: 05-30-2021 End: 05-30-2021 Patient encounter procedure 05/30/2021 Office Visit Psychiatry Robb Evans MD [address] [facility] [address] [place] [phone] [facility] Start: 03-18-2021 DEPRESSION ASSESSMENT DEPRESSION ASS [facility] Start: 02-17-2021 End: 02-17-2021 Patient encounter procedure 02/17/2021 Office Visit Psychiatry Robb Evans MD [address] [facility] [address] [place] [phone] [facility] Start: 02-03-2021 End: 02-03-2021 Patient encounter procedure 02/03/2021 Office Visit Robb Patton MD [address] [facility] [address] [place] [phone] [facility] Start: 11-16-2020 Influenza vaccination [facility] Start: 10-28-2020 End: 10-28-2020 Patient encounter procedure 10/28/2020 Office Visit Psychiatry Robb Evans MD [address] [place] [address] [phone] [facility] Start: 2020 Administration of he rpes zoster vaccine Zoster Vaccines (1 of 2) [facility] Start: 2020 Screening for malign ant neoplasm of colon [facility] Start: 2020 SHINGRIX VACCINE (1 of 2) SHINGRIX VACCINE (1 of 2) [facility] Start: 08-22-2020 End: 08-22-2020 Telemedicine consultation with patient 08/22/2020 Telemedicine Psychiatry Robb Evans MD [address] [place] [address] [phone] [facility] Start: 10-07-2015 COLOGUARD (FIT-DNA) COLOGUARD (FIT-D NA) [facility] Start: 10-07-2015 Colonoscopy COLONOSCOPY [facility] Start: 10-07-2015 COLORECTAL CANCER SCREENING COLORECTAL CANCER SCREENING [facility] Start: 10-07-[address] COLONOGRAPHY [facility] Start: 10-07-2015 DIABETES SCREEN DIABETES SCREEN [facility] Start: 10-07-2015 FECAL OCCULT BLOOD FECAL OCCULT BLOO D [facility] Start: 10-07-2015 LIPID SCREEN LIPID SCREEN [facility] Start: 10-07-2015 SIGMOIDOSCOPY SIGMOIDOSCOPY [facility] Start: 01-02-2015 PAP TESTING PAP TESTING [facility] Start: 2010 Mammography MAMMOGRAM [facility] Start: 2010 Screening for malign ant neoplasm of breast Mammogram [facility] Start: 2010 Screening mammography Mammogram [facility] Start: 2000 HPV TESTING HPV TESTING [facility] Start: 1989 Urine microalbumin profile DTAP,TDAP,TD (1 - Tdap) [facility] Start: 1988 Hepatitis C screening Hepatitis C Sc reening [facility] Start: 1988 HIV SCREENING HIV SCREENING [facility] Start: 1986 COVID-19 Vaccine (1) COVID-19 Vaccin e (1) [facility] Start: 1985 HIV screening HIV Screening [facility] Start: 1982 COVID-19 Vaccine (1) COVID-19 Vaccin e (1) [facility] Start: 1976 PNEUMOCOCCAL (1 - PCV) PNEUMOCOCCAL (1 - PCV) [facility] Start: 1976 Pneumococcal Vaccine : Ped or At-Risk (1 - PCV) Pneumococcal Vaccine: Ped or At-Risk (1 - PCV) [facility] Start: 1976 Pneumococcal Vaccine : Ped or At-Risk (1 of 2 - PPSV23) Pneumococcal Vaccine: Ped or At-Risk (1 of 2 - PPSV23) [facility] Start: 1976 Pneumococcal Vaccine : Ped or At-Risk (1 of 4 - PCV13) Pneumococcal Vaccine: Ped or At-Risk (1 of 4 - PCV13) [facility] Start: 10-07-1975 COVID-19 Vaccine (1) COVID-19 Vaccin e (1) [facility] Start: 1973 History and physical examination, annual for health maintenance Wellness Visit [facility] Start: 04-08-1971 COVID-19 Vaccine (#1) COVID-19 Vacci ne (#1) [facility] Start: 1970 HEPATITIS B (1 of 3 - 3-dose series) HEPATITIS B (1 of 3 - 3-dose series) [facility] Start: 1970 Screening for malign ant neoplasm of cervix Pap Smear [facility] Start: 1970 Screening for malign ant neoplasm of colon [facility] Start: 1970 Screening mammography Mammogram [facility] Start: 1970 Tetanus vaccination Tetanus: Every 1 0yrs [facility] End: 09-19-2022 Comprehensive metabolic 2000 panel - Serum or Plasma Comprehensive Metabolic Panel Lab Routine Generalized anxiety disorder Long-term use of high-risk medication Bipolar 1 disorder, mixed, mild (HCC) 1 Occurrences starting 09/19/2021 until 09/19/2022 [facility] Comment on above: 1 Occurrences starti ng 09/19/2021 until 09/19/2022 End: 04-01-2023 Ct abdomen & pelvis w/contrast material CT ENTEROGRAPHY W IVCON Radiology Routine 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) Weight loss 1 Occurrences starting 03/02/2022 until 04/01/2023 [facility] Work Phone: Comment on above: 1 Occurrences starti ng 03/02/2022 until 04/01/2023 End: 12-15-2022 EGD DIAGNOSTIC EGD DIAGNOSTIC Endoscopy Routine Nausea and vomiting, unspecified vomiting type Left upper quadrant abdominal pain 1 Occurrences starting 12/15/2021 until 12/15/2022 [facility] Work Phone: Comment on above: 1 Occurrences starti ng 12/15/2021 until 12/15/2022 End: 03-02-2023 ENTEROSCOPY ENTEROSCOPY Endoscopy Routine 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) 1 Occurrences starting 03/02/2022 until 03/02/2023 [facility] Work Phone: Comment on above: 1 Occurrences starti ng 03/02/2022 until 03/02/2023 FAT, FECAL QUAL FAT, FECAL QUAL Lab Routine Weight loss Ordered: 01/05/2022 [facility] Work Phone: Comment on above: Ordered: 01/05/2022 End: 02-04-2023 Gastric emptying imaging study NM GASTRIC EMPTYING SOLID Radiology Routine Nausea 1 Occurrences starting 01/05/2022 until 02/04/2023 [facility] Work Phone: Comment on above: 1 Occurrences starti ng 01/05/2022 until 02/04/2023 End: 01-05-2023 Gi imag intraluminal esophagus-ileum w/i&r CAPSULE ENDOSCOPY SMALL BOWEL Endoscopy Routine Small bowel polyp 1 Occurrences starting 01/05/2022 until 01/05/2023 [facility] Work Phone: Comment on above: 1 Occurrences starti ng 01/05/2022 until 01/05/2023 End: 09-19-2022 Lipid 1996 panel - Serum or Plasma Lipid Panel Lab Routine Generalized anxiety disorder Long-term use of high-risk medication Bipolar 1 disorder, mixed, mild (HCC) 1 Occurrences starting 09/19/2021 until 09/19/2022 [facility] Comment on above: 1 Occurrences starti ng 09/19/2021 until 09/19/2022 PANC ELASTASE, FECAL PANC ELASTA SE, FECAL Lab Routine Weight loss Ordered: 01/05/2022 [facility] Work Phone: Comment on above: Ordered: 01/05/2022 End: 09-19-2022 Prolactin [Mass/volume] in Serum or Plasma Prolactin Lab Routine Generalized anxiety disorder Long-term use of high-risk medication Bipolar 1 disorder, mixed, mild (HCC) 1 Occurrences starting 09/19/2021 until 09/19/2022 [facility] Work Phone: Comment on above: 1 Occurrences starti ng 09/19/2021 until 09/19/2022 End: 04-01-2023 Radiologic exam chest 2 views XR CHEST 2V FRONTAL/LAT Radiology Routine Weight loss 1 Occurrences starting 03/02/2022 until 04/01/2023 [facility] Work Phone: Comment on above: 1 Occurrences starti ng 03/02/2022 until 04/01/2023 SURGICAL PATHOLOGY [facility] Work Phone: Comment on above: Release Upon Orderin g for 1 Occurrences starting 01/01/2022, 1 completed SURGICAL PATHOLOGY [facility] Work Phone: Comment on above: Release Upon Orderin g for 1 Occurrences starting 04/04/2022, [facility] Immunizations Immunization Date Immunization Notes Care Provider Dany ordoñez 10-10-2022 tetanus toxoid, reduced diphtheria toxoid, and acellular pertussis vaccine, adsorbed Sandoval Rae [facility] Rashaun NEGATED: Highlighted row has not occurred!01-16-2024 influenza virus vaccine, unspecified formulation Sandoval Rae [facility] NEGATED: Highlighted row has not occurred!05-24-2020 influenza virus vaccine, unspecified formulation José Luis Resendiz [facility] Payers Date Payer Category Payer Self-pay 2017 Medicaid [id number] 2017 Medicaid [id number] 1970 Unknown [id number] 2.16.8 40.1.704811.3.579.2.727 1970 Unknown [id number] 2.16.8 40.1.463637.3.579.2.727 1970 Unknown [id number] 2.16. 840.1.776043.3.579.2.903 1970 Unknown [id number] 2.16. 840.1.290003.3.579.2.903 1970 Unknown [id number] 2.16. 840.1.144895.3.579.2.903 1970 Unknown [id number] 2.16. 840.1.266968.3.579.2.903 1970 Unknown [id number] 2.16.84 0.1.644980.3.579.2.593 1970 Unknown [id number] 2.16.84 0.1.242067.3.579.2.593 1970 Unknown [id number] 2.16.84 0.1.804876.3.579.2.593 1970 Unknown [id number] 2.16.84 0.1.020320.3.579.2.593 1970 Unknown [id number] 2.16.84 0.1.580522.3.579.2.593 1970 Unknown [id number] 2.16.84 0.1.062100.3.579.2.593 1970 Unknown [id number] 2.16.84 0.1.606859.3.579.2.593 1970 Unknown [id number] 2.16.84 0.1.270164.3.579.2.593 1970 Unknown [id number] 2.16.8 40.1.909389.3.579.2.727 1970 Unknown [id number] 2.16.8 40.1.483842.3.579.2.727 1970 Unknown [id number] 2.16.8 40.1.776154.3.579.2.727 1970 Unknown [id number] 2.16.8 40.1.651951.3.579.2.727 1970 Unknown [id number] 2.16.8 40.1.689451.3.579.2.727 1970 Unknown [id number] 2.16.8 40.1.430048.3.579.2.727 1970 Unknown [id number] 2.16.8 40.1.395808.3.579.2.727 1970 Unknown [id number] 2.16.8 40.1.856637.3.579.2.727 1970 Unknown [id number] 2.16.8 40.1.584896.3.579.2.727 1959 Unknown [id number] 1959 Unknown [id number] Unknown [id number] 2.16.8 40.1.709915.3.579.2.531 Social History Date Type Detail Facility Start: 07-18-2020 End: 01-01-2022 Tobacco smoking status GAIS Current every day smoker [facility] Start: 07-18-2020 End: 01-01-2022 Tobacco use and exposure Never used [facility] Start: 07-18-2020 End: 04-04-2022 Alcohol intake Ex-drinker (finding) [facility] Start: 1970 Sex Assigned At Not on file [facility] Start: 09-09-2021 End: 02-05-2022 Exposure to SARS-CoV-2 (event) Not sure [facility] Start: 12-03-2021 End: 12-14-2021 Exposure to SARS-CoV-2 (event) Unable to assess [facility] Start: 06-10-2021 End: 06-20-2021 Exposure to SARS-CoV-2 (event) Yes [facility] Start: 1970 [facility] History of tobacco use Cigarette Smoker [facility] Start: 01-01-2022 Cigarettes smoked current (pack per day) - Reported 0.5 [facility] History of tobacco use Passive smoker [facility] Start: 09-24-2023 Tobacco smoking status Ex-smoker (fi nding) [facility] Comment on above: quit smoking 2023 Sex Assigned At Female [facility] Start: 01-16-2024 End: 03-23-2024 Tobacco smoking status Light tobacco smoker (finding) [facility] Tobacco smoking status Never [facility] Functional Status Date Assessment Result Facility 03-23-2024 Functional Status N/A [facility] 02-25-2024 Functional Status N/A [facility] 02-21-2024 Functional Status N/A [facility] 01-16-2024 Functional Status N/A [facility] 09-24-2023 Functional Status N/A [facility] Clinical Notes 07-20-2020 to 02-25-2024 Note Date & Type Note Facility 02-25-2024 Evaluation + Plan note Extrac kitty from: Title:ANES Post-operative Note---General Author: Dakota Rivas MD Date:02/25/24 Plan Transfer/Discharge: Transfer/Discharge Discharge when meets criteria ( To home ). Extracted from: Title:ANES Pre-operative Note 2022 Author:Dakota Rhoades Date:02/25/24 Plan [place] [employer] (ASA) physical status classification: Class III. Anesthetic Preoperative Plan: Anesthesia General. Future Scheduled Tests Laboratory* Giardia lamblia, Direct Detection EIA 11/26/23 * O & P Exam, Routine 11/26/23 * Rotavirus Ab 11/26/23 * Clostridium Difficile PCR 11/26/23 Radiology* CT Abdomen/Pelvis w/contrast (enterography) 01/30/24 * XR Small Bowel w/ Serial Films 02/10/24 [facility] 12-10-2024 Hospital Discharge instructions Patient Education [...] hard liquor (44 mL). General instructions Take [id number] and prescription medicines only as told by [...] provider. Document Revised: 06/22/2020 Document Reviewed: 06/22/2020 [employer] Patient Education 2023 [employer]. 02/25/2024 11:02:55 Hiatal Hernia Hiatal Hernia A [...] reduce GERD symptoms. Medicines. These may include: ?Hqfi-gdl-cekofxo antacids. ?Medicines that make your stomach empty [...] may include: ?Fatty foods, like fried foods. ?[place] fruits, like oranges or lemon. ?Other foods [...] Do not drink alcohol. General instructions Take [id number] and prescription medicines only as told by [...] provider. Document Revised: 05/01/2022 Document Reviewed: 05/01/2022 [employer] Patient Education 2023 [employer]. 02/25/2024 11:02:51 Gastritis, Adult, Qeib-dm-Qbki Gastritis, Adult Gastritis is irritation and swelling [...] Follow these instructions at home: Medicines Take cyht-ltq-bgsiljj and prescription medicines only as told by [...] right away. Call your local emergency services ([address] [place] Do not wait to see [...] provider. Document Revised: 07/08/2021 Document Reviewed: 07/08/2021 [employer] Patient Education 2023 [employer]. 02/25/2024 11:02:46 Endoscopy, Care After Procedure [facility] [facility] Care After Procedure Please read the instructions outlined below and refer to this sheet in the next few weeks. These discharge instructions provide you with general information on caring [facility] Your doctor may also give [...] Document Re-Released: 08/26/2006 ExitCare Patient Information 2009 [employer]. [facility] [id number] NoteProgress Note-Physician Patient: SAI PINEDA Age: 53 years Sex: Female : 1970 Associated Diagnoses: None Author: Dakota Rivas MD Postoperative Information Postoperative disposition: Postoperative disposition: To PACU. Optimetrix number: Optimetrix number [phone]. Anesthetic utilized: General. Health Status Allergies: Allergic [...] Discharge when meets criteria ( To home ).[facility] CenterComment on above:Result Comment: Electronically Signed [...] blood. Document Released: 10/16/2004 Document Re-Released: 08/26/2006 1RP [facility]??? Patient Information ???2009 [employer]. Gastroenterology Hiatal Hernia A hiatal hernia occurs [...] symptoms. ??? Medicines. These may include: ? Fxem-vwu-carzewy antacids. ? Medicines that make your stomach [...] your health care provide (more content not included)...[facility]12[facility] NoteProgress Note-Physician Patient: SAI PINEDA [...] 56 tab(s), Refills(s) 0, Pharmacy: [facility]/pharmacy #[id number], 169, cm, 02/21/24 8:47:00 EST, Height/Length Dosing, 62.2, kg, 02/21/24 8:47:00 EST, Weight Dosing Questran 4 g/9 g oral powder: = 1 packet(s), Oral, BID, # 60 EA, Refills(s) 2, Pharmacy: [facility]/pharmacy #[id number], 169, cm, 01/16/24 10:14:00 EDT, Height/Length Dosing, [...] Bedtime, # 30 tab(s), Refills(s) 1, [id number] 173, cm, 05/24/20 14:42:00 EST, Height/Length Dosing, 50.1, kg, 05/24/20 14:42:00 EST,Weight Dosing colestipol 1 g Tab: 2 gm = 2 tab(s), Oral, BID, with a full glass of water, # 120 tab(s), Refills(s) 1, [id number], 169, cm, 01/16/24 10:14:00 EDT, Height/Length Dosing, 63.9, kg, 01/16/24 10:14:00 EDT, Weight Dosing hydrOXYzine hydrochloride 50 mg oral tablet: 50 mg = 1 tab(s), Oral, TID, PRN as needed for anxiety, # 30 tab(s), Refills(s) 0, [id number], 173, cm, 04/26/20 13:07:00 EST, Height/Length Dosing, 52.8, kg, 04/26/20 13:07:00 EST, Weight Dosing lamotrigine 25 mg Tab: See Instructions, TAKE 1 TABLET BY MOUTH EVERY DAY IN THE AFTERNOON, # 30 tab(s), Refills(s) 0, Pharmacy: [facility] STORE [id number], 169.7, cm, 11/26/23 15:32:00 EDT, Height/Length Dosing, 62.1, kg, 11/26/23 15:32:00 EDT, Weight Dosing mirtazapine 7.5 mg oral tablet: 7.5 mg = 1 tab(s), Oral, Bedtime, # 30 tab(s), Refills(s) 0, [id number], 169.7, cm, 10/03/23 9:38:00 EDT, Height/Length Dosing, 62.5, kg, 10/03/23 9:38:00 EDT, Weight Dosing omeprazole 20 mg Cap-DR: See Instructions, TAKE 1 CAPSULE BY MOUTH EVERY DAY, # 30 cap(s), Refills(s) 0, Pharmacy: [id number], 169, cm, 02/21/24 8:47:00 EST, Height/Length Dosing, 62.2, kg, 02/21/24 8:47:00 EST, Weight Dosing ondansetron 4 mg Dis Tab: 4 mg = 1 tab(s), Oral, q6hr, PRN Nausea/Vomiting, # 30 tab(s), Refills(s)0, [id number], 169.7, cm, 11/26/23 15:32:00 EDT, Height/Length Dosing, 62.1, kg, 11/26/23 15:32:00 EDT, Weight Dosing ondansetron 8 mg Dis Tab: See Instructions, DISSOLVE 1 TABLET ON THE TONGUE EVERY 8 HOURS NEEDEDFOR NAUSEA AND VOMITING, # 24 tab(s), Refills(s) 0, [id number], 169, cm, 02/17/2411:55:00 EST, Height/Length Dosing, 61.8, kg, 02/18/24 11:55:00 EST, Weight D... promethazine 25 mg Tab: 25 mg = 1 tab(s), Oral, TID, # 15 tab(s), Refills(s) 0, Pharmacy: [facility]/pharmacy #[id number], 169, cm, 01/16/24 10:14:00 EDT, Height/Length Dosing, 63.9, kg, 01/16/24 10:14:00 EDT, Weight Dosing promethazine 25 mg Tab: See Instructions, TAKE 1 TABLET BY MOUTH THREE TIMES A DAY, # 30 tab(s), Refills(s) 1, [id number] 169, cm, 02/18/24 11:55:00 EST, Height/Length Dosing, 61.8, kg, 02/18/24 11:55:00 E (more content not included)...[facility] CenterComment on above:Result Comment: Electronically Signed By: Rob SANDOVAL, Dakota Shoemaker\.br\Date and Time Signed: 02/25/24 10:18 [id number] Evaluation + Plan note Future Scheduled Tests Laboratory* Giardia lamblia, Direct Detection EIA 11/26/23 * O & P Exam, Routine 11/26/23 * Rotavirus Ab 11/26/23 * Clostridium Difficile PCR 11/26/23 Radiology* XR Small Bowel w/ Serial Films 02/10/24 [facility] 09-10-2024 Evaluation + Plan note Future Scheduled Tests Laboratory* Giardia lamblia, Direct Detection EIA 11/26/23 * O & P Exam, Routine 11/26/23 * Rotavirus Ab 11/26/23 * Clostridium Difficile PCR 11/26/23 Radiology* CT Abdomen/Pelvis w/contrast (enterography) 01/30/24 * XR Small Bowel w/ Serial Films 02/10/24 [facility] 07-09-2024 Hospital Discharge instructions Patient [...] Treatment for this condition includes: Antibiotic medicine. Lirr-jyf-exattug medicines to treat discomfort. Drinking enough water [...] Follow these instructions at home: Medicines Take koou-csh-fncdtve and prescription medicines only as told by [...] provider. Document Revised: 10/14/2020 Document Reviewed: 10/14/2020 [employer] Patient Education 2022 [employer]. Follow Up Care 09/24/2023 12:53:04 With:CHANCE SERRANO Address: [address] [place] [phone] Business (1) When:09/27/2023 15:19:10 [facility]07-09-2024 Evaluation + Plan note Diagnostic Tests Pending * Urine Culture 09/24/23 [facility]02-21-2023 Miscellaneous Notes* Telephone Encounter - Eva Chong - 05/08/2022 10:40 AM EST 05/08/22 Patient calling to see if Dr Morales will write her a script for Zofran nausea medication strips. [phone] Eva documented in this encounterMer[facility]02-07-2023 NoteHNO ID: [id number] Author: Tiffani Morales MD Service: ? Author [...] Tiffani Morales MD 04/24/2022 11:19 AM Staff Litigation Partner, [facility] [place] PRIMARY PROBLEM: small bowel tumor, severe malnutrition [...] clips were successfully placed (MR conditional). Clip market intelligence consultant: [employer]. There was no bleeding at the end [...] patient, physical examination, documentation, and co-ordination of care.[facility]02-07-[facility] History of Present illness Narrative* Tiffani Morales [...] Tiffani Morales MD 04/24/2022 11:19 AM Staff Litigation Partner, [facility] [place] PRIMARY PROBLEM: small bowel tumor, severe malnutrition [...] clips were successfully placed (MR conditional). Clip market intelligence consultant: [employer]. There was no bleeding at the end [...] co- ordination of care. documented in this encounterMercy Health [facility] Center01-19-2023 Miscellaneous Notes* Telephone Encounter - Eva Chong - 04/05/2022 9:29 AM EST 04/05/22 Patient wants tow know if y script you can send her script for ZOFRAN, under the tongue tablets. For nausea. Eva documented in this encounterMercy Health Springfield [facility] Center01-18-2023 NoteHNO ID: [id number] Author: Frederick Chaves APRN.DRILL PUNCH OPERATOR Service: ? Author Type: Nurse Termite Renewal Inspector Type: Anesthesia Procedure Notes Filed: 04/04/2022 1:55 PM Note Text: ANESTHESIOLOGY PROCEDURE NOTE Airway General Information Procedure Start Time/Medication Administration: 04/04/2022 1:38 PM Patient location during procedure: OR Timeout Performed Pre-procedure: timeout performed Consent Obtained: Yes Patient identity confirmed: arm band Staffing DRILL PUNCH OPERATOR: Frederick Chaves APRN.DRILL PUNCH OPERATOR Performed by: GORGE Indications and Patient Condition Indications for airway management: anesthesia Preoxygenated: yes anesthesia circuit Patient position: sniffing Method: asleep Cricoid Pressure: No Difficult Mask: No Final Airway Details Final airway type: endotracheal airway Final Endotracheal Airway: ETT Cuffed: yes Successful intubation technique: video laryngoscopy Devices used: Next Performance Endotracheal tube insertion site: oral Blade: [place] Blade size: #3 ETT size (mm): 7.0 Measured from: lips Measurement (cm): 21 Placement verified by: capnometry Cormack-Lehane Classification: grade I - full view of glottis Number of attempts at approach: 1 Airway not difficult SIGNATURE: Frederick Chaves APRN.CRNA PATIENT NAME: Sai Pineda DATE: April 04, 2022 TIME: 1:54 PM CSN: [id number] [facility]01-[facility] NoteHNO ID: [id number] Author: Frederick Chaves APRN.DRILL PUNCH OPERATOR Service: ? Author Type: Nurse Termite Renewal Inspector Type: Anesthesia Procedure Notes Filed: 04/04/2022 1:51 PM Note Text: ANESTHESIOLOGY PROCEDURE NOTE PIV General Information Procedure Start Time/Medication Administration: 04/04/2022 1:26 PM Patient Location: OR Staffing DRILL PUNCH OPERATOR: Frederick Chaves APRN.DRILL PUNCH OPERATOR Performed by: GORGE Preparation Sterility Preparation: hand [...] April 04, 2022 TIME: 1:49 PM CSN: [id number] Cross Hospital01-18-2023 Nurse Note* Eduardo Harrington RN - [...] RN In Department: GASTROENTEROLOGY documented in this encounterMercy Health [facility] Center01-18-2023 NoteQ3 Patient Name: Sai Pineda [...] clips were successfully placed (MR conditional). Clip market intelligence consultant: [employer]. There was no bleeding at the end of the maneuver. Exam of the jejunum was otherwise normal. Impression: - Atrophic mucosa. - Jejunal polyp(s). Resected and retrieved. Tattooed. Clips (MR conditional) were placed. Clip market intelligence consultant: [employer]. Estimated Blood Loss: Estimated blood loss was minimal. Recommendation: - Await pathology results. - Resume previous diet. - Continue present medications. - Return to endoscopist at the next available appointment. 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 All rights reserved. Attending Participation: I was present and participated during the entire procedure, including non-morrison portions. Scope In: 1:44:30 PM Scope Out: 3:07:42 PM MD Tiffani Camargo MD 04/04/2022 3:21:50 PM This report has been signed electronically by Tiffani Morales MD Number of Addenda: 0 (more content not included)...[facility] 04-04-2022 History and physical note* Tiffani Morales [...] DATE: 04/04/2022 TIME: 1302 documented in this encounterMercy Health [facility] Center01-11-2023 Miscellaneous Notes* Telephone Encounter - Eduardo Harrington RN - 03/28/2022 3:50 PM EST Attempted to reach the patient at the contact number that they provided [phone] (home) . Unable to speak with patient so without identifying the patient the following information was left on their voice mail: Date of procedure, location and report time A message was left informing the patient/patient marketing sales representative they must have a responsible adult [...] Number to call with questions or concerns [phone] Number to call to cancel their procedure [phone] Eduardo Harrington RN documented in this encounterMercy Health Springfield [facility] Center12-27-2022 Note* Addendum Note - Robb Evans MD - 03/13/2022 3:44 PM ESTAddended by: ROBB EVANS on: 03/13/2022 03:44 PM Modules accepted: Orders [id number] Miscellaneous Notes* Addendum Note - Robb Evans MD - 03/13/2022 3:44 PM ESTAddended by: ROBB EVANS on: 03/13/2022 03:44 PM Modules accepted: Orders * Addendum Note - Gokul Montoya MA - 03/13/2022 3:37 PM ESTAddended by: GOKUL MONTOYA on: 03/13/2022 03:37 PM Modules accepted: Orders documented in this [id number] Note* Addendum Note - Gokul Montoya MA - 03/13/2022 3:37 PM ESTAddended by: GOKUL MONTOYA on: 03/13/2022 03:37 PM Modules accepted: Orders [id number] Note* Addendum Note - Gokul Montoya MA - 03/13/2022 3:37 PM ESTAddended by: GOKUL MONTOYA on: 03/13/2022 03:37 PM Modules accepted: Orders [id number] Miscellaneous Notes* Addendum Note - Gokul Montoya MA - 03/13/2022 3:37 PM ESTAddended by: GOKUL MONTOYA on: 03/13/2022 03:37 PM Modules accepted: Orders documented in this [id number] NoteHNO ID: [id number] Author: Tiffani Morales MD Service: ? Author [...] Tiffani Morales MD 03/01/2022 11:19 AM Staff Litigation Partner, [facility] [place] PRIMARY PROBLEM: small bowel tumor, severe malnutrition [...] patient, physical examination, documentation, and co-ordination of care.[facility]12-15-20[facility] History of Present illness Narrative* Tiffani Morales [...] Tiffani Morales MD 03/01/2022 11:19 AM Staff Litigation Partner, [facility] [place] PRIMARY PROBLEM: small bowel tumor, severe malnutrition [...] co- ordination of care. documented in this encounterMercy Health [facility] Center12-02-2022 NoteHNO ID: [id number] Author: Anastasiya Mosqueda PA-C Service: ? Author Type: Physician Boat Worker Type: Progress Notes Filed: 02/16/2022 5:07 PM Note Text: Orders placedAdena Regional Medical Center11-21-2022 NoteHNO ID: [id number] Author: RT Fabiana(R) Service: Nuclear Medicine Author [...] [address] DI[address] PERFORMED: No IV SITE: [place] only - not applicable, oral or physician administered agents given to patient POST EXAM PIV STATUS: Discontinued PROCEDURE TYPE: NM GET: 1 mCi Tc99m SULFUR COLLOID was administered orally via 4 ounces of Egg Beaters,2 pieces of toast, 1 ounce of jelly with 8 ounces of water orally ADMINISTRATION TIME: 08:15 PATIENT DISCHARGED TO: Ambulatory patient, left [place] department area. A Diagnostic radioactive procedure has taken place, with no further precautions necessary other than routine body substance precautions. More information regarding radiation safety can be found using this link: [email or web address] SIGNATURE: PHILLIP Jung) PATIENT NAME: Sai Pineda DATE: February 05, 2022 TIME: 10:16 AM PAGER/CONTACT #:[facility]11-14-2022 NoteHNO ID: [id number] Author: Dolores Lopez RN Service: ? Author Type: Registered Nurse Type: Progress Notes Filed: 02/01/2022 4:29 PM Note Text: Summary: capsule endoscopy small bowel Capsule endoscopy small bowel ingested without difficulty @ 1300 on 01-29-2022. Therese Lopez RN [id number] [facility] PTF G [id number] Capsule Endoscopy Post Ingestion Patient Information Do [...] cell phones, computers, remote TV appliances, microwaves, [employer] players and digital cameras. Because the capsule [...] hours you may call: HERNÁN Salvador RN [phone] After Business hours: [phone] and ask for GI Xdlcww-Fx-VoqDzprnyzbqHolmes County [facility]11[facility] History of Present illness Narrative* Dolores Lopez RN - 01/29/2022 1:17 PM ESTSummary: capsule endoscopy small bowel Capsule endoscopy small bowel ingested without difficulty @ 1300 on 01-29-2022. Therese Lopez RN [id number] [facility] PTF G [id number] Capsule Endoscopy Post Ingestion Patient Information Do [...] hours you may call: HERNÁN Salvador RN [phone] After Business hours: [phone] and ask for GI Qbhina-Qy-Cxc documented in this encounterMercy Health Springfield [facility] Center10-21-2022 Miscellaneous Notes* Telephone Encounter - [...] Morales MD 01-05-2022 17:51 documented in this encounterMercy Health Springfield [facility] Center10-21-2022 NoteHNO ID: [id number] Author: Anastasiya Mosqueda PA-C Service: ? Author Type: Physician Boat Worker Type: Progress Notes Filed: 01/05/2022 2:24 PM Note Text: Per discussion with Dr. Morales, GES, Small bowel capsule study, Fecal fat qual and pancreatic elastase stool studies orders placed. Discussed plan with patient. Gustavo CastorenaMercy Health10-21-2022 History of Present illness Narrative* Anastasiya Mosqueda PA-C - 01/05/2022 2:13 PM EDT Per discussion with Dr. Morales, GES, Small bowel capsule study, Fecal fat qual and pancreatic elastase stool studies orders placed. Discussed plan with patient. Anastasiya Mosqueda PA-C documented in this encounterMercy Health Springfield [facility] Center10-21-2022 Miscellaneous Notes* Telephone Encounter - [...] Anastasiya Mosqueda PA-C documented in this encounterCleveland [id number] Miscellaneous Notes* Telephone Encounter - Anastasiya Mosqueda PA-C - 01/03/2022 10:17 AM EDT EGD results discussed with patient as requested, pathology still pending. Will reach out to patientonce resulted. Red flags for in person care discussed. Anastasiya Mosqueda PA-C documented in this encounterMercy Health Springfield [facility] Center10-18-2022 Miscellaneous Notes* Telephone Encounter - Leydi Dumontader - 01/02/2022 8:47 AM EDT Patient called to get results from her procedure. Please contact her at number listed in system. Thanks Leydi Henry Workleader documented in this encounterMercy Health Springfield [facility] Medical Center10-17-2022 Nurse Note* Juan Carlos Saucedo [...] RN In Department: GASTROENTEROLOGY documented in this encounterMercy Health Springfield Regional Medical Center10-17-2022 History and physical note * [...] DATE: 01/01/2022 TIME: 1600 documented in this encounterMercy Health Springfield [facility] Center10-10-2022 Miscellaneous Notes* Telephone Encounter - Rima Gerard RN - 12/25/2021 8:26 AM EDT Patient scheduled incorrectly. Anesthesia not supposed to have 430 case. I called patient to see ifthey can come in early. She said she would call me back Rima Gerard RN documented in this encounterMercy Health Springfield [facility] Medical Center09-30-2022 NoteHNO ID: [id number] Author: Anastasiya Mosqueda PA-C Service: ? Author Type: Physician Boat Worker Type: Progress Notes Filed: 12/15/2021 4:32 PM Note Text: VIRTUAL VISIT NEW PATIENT NAME: Sai Pineda [facility] NO: [id number] DATE: 12/15/2021 REASON FOR VISIT Sai Randolphn [id number] 1970 has requested a video telemedicine initial consultation at the request of Self. Sai Pineda [place] verbalized informed consent to proceed with the [...] abdominal rigidity Assessment IMPRESSION (more content not included)...[facility]09-30-[facility] History of Present illness Narrative* GRECIA Castorena 12/15/2021 11:50 AM EDT VIRTUAL VISIT NEW PATIENT NAME: Sai Guerrero CLINIC NO: [id number] DATE: 12/15/2021 REASON FOR VISIT Sai Guerrero [id number] 1970 has requested a video telemedicine initial [...] 15, 2021 11:51 AM documented in this encounterMercy Health Springfield [facility] Center09-29-2022 NoteHNO ID: [id number] Author: Anastasiya Mosqueda PA-C Service: ? Author Type: Physician Boat Worker Type: Progress Notes Filed: 12/14/2021 3:51 PM Note Text: Unable to connect to VV, called multiple times and left multiple VM's. Patient rescheduled for tomorrow.[facility]09-29-[facility] History of Present illness Narrative* Anastasiya Mosqueda PA-C - 12/14/2021 10:52 AM EDT Unable to connect to VV, called multiple times and left multiple VM's. Patient rescheduled for tomorrow. documented in this encounterMercy Health Springfield [facility] Medical Center09-28-2022 Miscellaneous Notes* Telephone Encounter - Elizabeth Ricci - 12/13/2021 12:32 PM EDT Spoke to patient's daughter - she will contact the [employer] support line to assist with setting up patient's Mychart & assist with set up for virtual visit tomorrow morning Elizabeth Ricci * Telephone Encounter - Elizabeth Ricci - 12/13/2021 11:17 AM EDT Received a call from patient's health agency concerning virtual visit set up with you today at 11 - Patient has not registered for [email or web address] (having trouble accessing her email) & they want to knowif you will do a phone visit instead Was told this was an urgent request from the referring doctor's office - the visit was scheduled thru the Referring Physician office There are no records found for this patient & I attempted to pull records thru Care Everywhere Patient's phone [phone] Elizabeth Ricci documented in this encounterMercy Health Springfield [facility] Center07-13-2022 History of Present illness Narrative* Robb Evans MD - 09/27/2021 10:19 AM EDT Prolactin Level Elevated at 146. Will add Abilify 5 mg daily to address that. Pt informed. Pt is denying breast tenderness or documented in this [id number] History of Present illness Narrative* Robb Evans MD - 09/19/2021 2:19 PM EDT BEHAVIORAL HEALTH PSYCHIATRIC PROGRESS NOTE Reason for visit: Psychotropic medication management 09/19/2021 Patient is seen alone in his office for psychotropic medication management. Patient reported they are moving to a new residence, in [place] same place they have been living in. [...] Testing: none Robb Evans documented in this [id number] History of Present illness Narrative* Robb Evans [...] Testing: none Robb Evans documented in this [id number] History of Present illness Narrative* Robb Evans MD - 03/01/2021 1:31 PM EST Telephone Visit Via Phone Call [facility] [address] ([address]) [facility] [address] [facility] [phone] Telephone Visit [facility] 03/01/2021 Robb Evans MD Provider Location: [facility] Patient Location Judicial Assistant: None Patient Location: Patient's Home Patient: Sai [...] there are inherent diagnostic limitations compared to wdip-nv-tbii evaluations. We elected toproceed with the telephone [...] and Plan of Care. documented in this [id number] History of Present illness Narrative* Robb Evans MD - 08/22/2020 3:27 PM EDT Telephone Visit Via Phone Call [facility] [phone] Telephone Visit [facility] 08/22/2020 Robb Evans MD Provider Location: [facility] Patient Location Judicial Assistant: None Patient Location: Patient's Home Patient: Sai [...] there are inherent diagnostic limitations compared to jepp-ns-dmsv evaluations. We elected toproceed with the telephone [...] and Plan of Care. documented in this [id number] History of Present illness Narrative* Robb Evans MD - 07/20/2020 11:29 AM EDT BEHAVIORAL HEALTH PSYCHIATRIC ASSESSMENT DOS: 07/18/3020 Reason for visit: Psychotropic management follow-up. Patient is here to reestablish care at my new location HPI: Patient is seen in office alone. [facility] Her working diagnosis is bipolar disorder type I, panic disorder with agoraphobia and PTSD. She has prior history of alcohol and cannabis abuse but has maintained sobriety for about last 1 year. Patient was seen here for reestablishing care at my new location in [facility]. Patient wants to continue her psychiatric management.. She had briefly seen a nurse practitioner in [place] after Ileft. Patient reported she she is [...] PFSH: Past Medical History: Diagnosis Date Alcoholism ([facility]), in remission Anxiety Bipolar disorder ([facility]) Depression Drug abuse and dependence ([facility]) in remission Panic disorder Psychosis ([facility]) Social History Substance and Sexual Activity [...] XR Small Bowel w/ Serial Films 01/27/24 [facility] Evaluation + Plan note Future Appointments Appointment Date:02/25/2024 11:00:00 AM Scheduled Provider: Location:[facility] Appointment Type:Surgery FT Future Scheduled Tests Laboratory* Giardia lamblia, Direct Detection EIA 11/26/23 * O & P Exam, Routine 11/26/23 * Rotavirus Ab 11/26/23 * Clostridium Difficile PCR 11/26/23 Radiology* CT Abdomen/Pelvis w/contrast (enterography) 01/30/24 * XR Small Bowel w/ Serial Films 02/10/24 [facility] evaluation note* Diagnosis Generalized anxiety [...] stress disorder (PTSD) documented in this encounter [facility] note* Diagnosis Bipolar 1 disorder, mixed, mild (HCC)- Primary Generalized anxiety disorder Long-term use of high-risk medication documented in this encounter [facility] note* Diagnosis APPOINTMENT CANCELLED- Primary documented in this encounter [facility] note* Diagnosis Nausea and vomiting, unspecified vomiting type- Primary Left upper quadrant abdominal pain Weight loss Loss of weight documented in this encounter [facility] note* Diagnosis Nausea and vomiting, unspecified vomiting type Left upper quadrant abdominal pain documented in this encounter [facility] note* Diagnosis Nausea- Primary Nausea alone Weight loss Loss of weight 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, jejunum, and ileum documented in this encounter [facility] note* Diagnosis Abdominal pain, unspecified abdominal location- Primary documented in this encounter [facility] note* Diagnosis Intestinal polyposis- Primary Benign neoplasm of colon documented in this encounter [facility] note* Diagnosis Severe protein-calorie malnutrition (HCC)- Primary Other severe protein-calorie malnutrition 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 Weight loss Loss of weight Severe malnutrition (HCC) 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 [facility] note* Diagnosis Generalized anxiety disorder documented in this encounter [facility] note* Diagnosis Generalized anxiety disorder documented in this encounter [facility] note* Diagnosis Generalized anxiety disorder documented in this encounter [facility] note* Diagnosis 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 documented in this encounter [facility] note* Diagnosis Generalized anxiety disorder documented in this encounter [facility] note* Diagnosis Severe malnutrition (HCC)- Primary 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 [facility] course Narrative No data available for this [facility] No data available for this section [facility] Progress note No data available for this section [facility] Outpatient Procedure (Routine) - Closed Specialty Diagnoses / Procedures Referred By Shane t Referred To Contact [facility] Diagnoses Nausea and vomiting, unspecified vomiting type Left upper quadrant abdominal pain Procedures EGD DIAGNOSTIC ESOPHAGOGASTRODUODENOSC OPY TRANSORAL DIAGNOSTIC Anastasiya Mosqueda PA-C [address] [place] [address] [facility] [address] [place] [address] Referral ID Status Reason Start Date Expiration Date V isits Requested Visits Authorized [id number] Closed Auto-Generate d Referral 12/15/2021 12/15/2022 1 1 [facility] for referral (narrative)* Outpatient Procedure (Routine) - Pending Review Specialty Diagnoses / Procedures Referred By Shane titus Referred To Contact [facility] Diagnoses Small bowel polyp Procedures CAPSULE ENDOSCOPY SMALL BOWEL GI TRC IMG INTRALUMINAL ESOPHAGUS-ILEUM W/I&R Anastasiya Mosqueda PA-C [address] [place] [address] [address] Referral ID Status Reason Start Date Expiration Date Visits Requested Visits Authorized [id number] Pending Review Auto-Generat ed Referral 2 01/05/2023 1 1 * Diagnostic Procedure Only (Routine) - Pending Review Specialty Diagnoses / Procedures Referred By Shane titus Referred To Contact [facility] Diagnoses Nausea Procedures NM GASTRIC EMPTYING SOLID GASTRIC EMPTYING STUDY Anastasiya Mosqueda PA-C [address] [place] [address] [facility] [address] [phone] Referral ID Status Reason Start Date Expiration Date Visits Requested Visits Authorized [id number] Pending Review Auto-Generat ed Referral 2 02/04/2023 1 1 [facility] for referral (narrative)* Outpatient Procedure (Routine) - Pending Review Specialty Diagnoses / Procedures Referred By Shane titus Referred To Contact [facility] Diagnoses 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) Procedures ENTEROSCOPY ENDOSCOPY UPPER SMALL INTESTINE Tiffani Morales MD [address] [place] [address] [facility] [address] [address] Referral ID Status Reason Start Date Expiration Date Visits Requested Visits Authorized [id number] Pending Review Auto-Generat ed Referral 2 03/02/2023 1 1 * MRI/CT (Routine) - Pending Review Specialty Diagnoses / Procedures Referred By Shane titus Referred To Contact CT IMAGING Diagnoses 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) Weight loss Procedures CT ENTEROGRAPHY W IVCON CT ABD & PELVIS W/CONTRAST Tiffani Morales MD [address] [place] [address] Ct [facility] Referral ID Status Reason Start Date Expiration Date Visits Requested Visits Authorized [id number] Pending Review Auto-Generat ed Referral 2 04/01/2023 1 1 [facility] for referral (narrative)* Outpatient Procedure (Routine) - Closed Specialty Diagnoses / Procedures Referred By Shane titus Referred To Contact [facility] Diagnoses 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) Procedures ENTEROSCOPY ENDOSCOPY UPPER SMALL INTESTINE Tiffani Morales MD [address] [place] [address] [facility] [address] [address] Referral ID Status Reason Start Date Expiration Date V isits Requested Visits Authorized [id number] Closed Auto-Generate d Referral 03/02/2022 03/02/2023 1 1 [facility] for visit Narrative* Outpatient Procedure (Routine) - Closed Specialty Diagnoses / Procedures Referred By Contac t Referred To Contact [facility] Diagnoses Nausea and vomiting, unspecified vomiting type Left upper quadrant abdominal pain Procedures EGD DIAGNOSTIC ESOPHAGOGASTRODUODENOSC OPY TRANSORAL DIAGNOSTIC Anastasiya Mosqueda PA-C [phone] [place] [address] Referral ID Status Reason Start Date Expiration Date V isits Requested Visits Authorized [id number] Closed Auto-Generate d Referral 12/15/2021 12/15/2022 1 1 [facility]patient Procedure (Routine) - Closed Specialty Diagnoses / Procedures Referred By Shane titus Referred To Contact [facility] Diagnoses 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) Procedures ENTEROSCOPY ENDOSCOPY UPPER SMALL INTESTINE Tifafni Morales MD [address] [place] [address] [place] [address] Referral ID Status Reason Start Date Expiration Date V isits Requested Visits Authorized [id number] Closed Auto-Generate d Referral 03/02/2022 03/02/2023 1 1 [facility] Advance Directives No Advanced Directives Records FoundDocuments on File Type Date Recorded Patient Child Care Attendant School Expl anation Advance Directives and Living Will [...] loss Procedures CONSULT TO NUTRITION THERAPY OFFICE/OUTPATIENT [facility] HIGH MDM 60-74 MINUTES Anastasiya Mosqueda PA-C [address] [phone] Referral ID Status Reason Start Date Expiration Date Visits Requested Visits Authorized [id number] Authorized PCP Requested Referral 12/15/2021 12/15/2022 1 1 Specialty Diagnoses / Procedures Referred By Shane t Referred To Contact [facility] Diagnoses Nausea and vomiting, unspecified vomiting type Left upper quadrant abdominal pain Procedures EGD DIAGNOSTIC ESOPHAGOGASTRODUODENOSC OPY TRANSORAL DIAGNOSTIC Anastasiya Mosqueda PA-C [address] [phone] [facility] [place] [address] [place] [address] Referral ID Status Reason Start Date Expiration Date Visits Requested Visits Authorized [id number] Authorized Auto-Generat ed Referral 12/15/2021 12/15/2022 1 1 Medications Administered Section Inactive Administered Medications - up to 3 most recent administrations Medication Order MAR Action Action Date Dose Rate Site benzocaine 20% (TOPEX) TOPICAL, X (OR/PROCEDURE) PRN, Starting on Sat01/01/22 at 1606, Until Sat01/01/22 at 1606, Intraprocedure Given 01/01/2022 4:06 PM EDT 1 [place] NaCl 0.9% iv infusion 30 mL/hr, INTRAVENOUS, [...] Care Teams (unrecognized sec tion and content) Defense Travel Administrator Relationship Specialty Start Date End Date Cristina Iqbal, CSW [address] [place] [address] PCP - General Nurse Practitioner 07/18/20 Defense Travel Administrator Relationship Specialty Start Date End Date Cristina Iqbal, CSW [address] [place] [address] PCP - General Nurse Practitioner 07/18/20 Defense Travel Administrator Relationship Specialty Start Date End Date Cristina Iqbal, CSW [address] [place] [address] PCP - General Nurse Practitioner 07/18/20 Defense Travel Administrator Relationship Specialty Start Date End Date Cristina Iqbal, CSW [address] [place] [address] PCP - General Nurse Practitioner 07/18/20 Defense Travel Administrator Relationship Specialty Start Date End Date Cristina Iqbal, CSW [address] [place] [address] PCP - General Nurse Practitioner 07/18/20 Defense Travel Administrator Relationship Specialty Start Date End Date Cristina Iqbal, CSW [address] [place] [address] PCP - General Family Medicine 10/15/12 Defense Travel Administrator Relationship Specialty Start Date End Date Cristina Iqbal, CSW [address] [place] [address] PCP - General Family Medicine 10/15/12 Defense Travel Administrator Relationship Specialty Start Date End Date Cristina Iqbal, CSW [address] [place] [address] PCP - General Family Medicine 10/15/12 Defense Travel Administrator Relationship Specialty Start Date End Date Cristina Iqbal, CSW [address] [place] [address] PCP - General Family Medicine 10/15/12 Defense Travel Administrator Relationship Specialty Start Date End Date Cristina Iqbal, CSW [address] [place] [address] PCP - General Family Medicine 10/15/12 Defense Travel Administrator Relationship Specialty Start Date End Date Cristina Iqbal, CSW [address] [place] [address] PCP - General Family Medicine 10/15/12 Defense Travel Administrator Relationship Specialty Start Date End Date Cristina Iqbal, CSW [address] [place] [address] PCP - General Family Medicine 10/15/12 Defense Travel Administrator Relationship Specialty Start Date End Date Cristina Iqbal, CSW [address] [place] [address] PCP - General Family Medicine 10/15/12 Defense Travel Administrator Relationship Specialty Start Date End Date Cristina Iqbal, CSW [address] [place] [address] PCP - General Nurse Practitioner 07/18/20 Defense Travel Administrator Relationship Specialty Start Date End Date Cristina Iqbal, CSW [address] [place] [address] PCP - General Family Medicine 10/15/12 Defense Travel Administrator Relationship Specialty Start Date End Date Cristina Iqbal, CSW [address] [place] [address] PCP - General Family Medicine 10/15/12 Defense Travel Administrator Relationship Specialty Start Date End Date Cristina Iqbal, CSW [address] [place] [address] PCP - General Family Medicine 10/15/12 Defense Travel Administrator Relationship Specialty Start Date End Date Cristina Iqbal, CSW [address] [place] [address] PCP - General Family Medicine 10/15/12 Defense Travel Administrator Relationship Specialty Start Date End Date Cristina Iqbal, CSW [address] [place] [address] PCP - General Nurse Practitioner 07/18/20 Defense Travel Administrator Relationship Specialty Start Date End Date Cristina Iqbal, CSW [address] [place] [address] PCP - General Nurse Practitioner 07/18/20 Defense Travel Administrator Relationship Specialty Start Date End Date Cristina Iqbal, CSW [address] [place] [address] PCP - General Family Medicine 10/15/12 Defense Travel Administrator Relationship Specialty Start Date End Date Cristina Iqbal, CSW [address] [place] [address] PCP - General Family Medicine 10/15/12 Defense Travel Administrator Relationship Specialty Start Date End Date Cristina Iqbal, CSW [address] [place] [address] PCP - General Family Medicine 10/15/12 Defense Travel Administrator Relationship Specialty Start Date End Date Cristina Iqbal, CSW [address] [place] [address] [phone] (work) PCP - General Family Medicine 10/15/12 INFORMATION SOURCE (unrecogn ized section and content) DATE CREATED AUTHOR 12/16/2021 [facility] DATE CREATED AUTHOR AUTHOR'S ORGANIZ ATION 12/20/2021 [facility] DATE CREATED AUTHOR AUTHOR'S ORGANIZ ATION 05/12/2022 [facility] DATE CREATED AUTHOR AUTHOR'S ORGANIZ ATION 05/31/2022 [facility] DATE CREATED AUTHOR AUTHOR'S ORGANIZ ATION 03/04/2024 [facility] DATE CREATED AUTHOR AUTHOR'S ORGANIZ ATION 03/05/2024 [facility] DATE CREATED AUTHOR AUTHOR'S ORGANIZ ATION 03/19/2024 [facility] DATE CREATED AUTHOR AUTHOR'S ORGANIZ ATION 03/29/2024 [facility] Source Comments (unrecognize d section and content) In the event this informatio n is protected by the Federal Confidentiality of Alcohol and Drug Abuse Patient Records regulations: The Federal rules restrict any use of the information to criminally investigate or prosecute any alcohol or drug abuse patient.[facility] the event this information is protected by the Federal Confidentiality of Alcohol and Drug Abuse Patient Records regulations: The Federal rules restrict any use of the information to criminally investigate or prosecute any alcohol or drug abuse patient.[facility] the event this information is protected by the Federal Confidentiality of Alcohol and Drug Abuse Patient Records regulations: The Federal rules restrict any use of the information to criminally investigate or prosecute any alcohol or drug abuse patient.[facility] the event this information is protected by the Federal Confidentiality of Alcohol and Drug Abuse Patient Records regulations: The Federal rules restrict any use of the information to criminally investigate or prosecute any alcohol or drug abuse patient.[facility] the event this information is protected by the Federal Confidentiality of Alcohol and Drug Abuse Patient Records regulations: The Federal rules restrict any use of the information to criminally investigate or prosecute any alcohol or drug abuse patient.[facility] Center[facility] the event this information is protected by the Federal Confidentiality of Alcohol and Drug Abuse Patient Records regulations: The Federal rules restrict any use of the information to criminally investigate or prosecute any alcohol or drug abuse patient.[facility] Center[facility] the event this information is protected by the Federal Confidentiality of Alcohol and Drug Abuse Patient Records regulations: The Federal rules restrict any use of the information to criminally investigate or prosecute any alcohol or drug abuse patient.[facility] Center[facility] the event this information is protected by the Federal Confidentiality of Alcohol and Drug Abuse Patient Records regulations: The Federal rules restrict any use of the information to criminally investigate or prosecute any alcohol or drug abuse patient.[facility] Center[facility] the event this information is protected by the Federal Confidentiality of Alcohol and Drug Abuse Patient Records regulations: The Federal rules restrict any use of the information to criminally investigate or prosecute any alcohol or drug abuse patient.[facility] Center[facility] the event this information is protected by the Federal Confidentiality of Alcohol and Drug Abuse Patient Records regulations: The Federal rules restrict any use of the information to criminally investigate or prosecute any alcohol or drug abuse patient.[facility] Center[facility] the event this information is protected by the Federal Confidentiality of Alcohol and Drug Abuse Patient Records regulations: The Federal rules restrict any use of the information to criminally investigate or prosecute any alcohol or drug abuse patient.[facility] Center[facility] the event this information is protected by the Federal Confidentiality of Alcohol and Drug Abuse Patient Records regulations: The Federal rules restrict any use of the information to criminally investigate or prosecute any alcohol or drug abuse patient.[facility] Center[facility] the event this information is protected by the Federal Confidentiality of Alcohol and Drug Abuse Patient Records regulations: The Federal rules restrict any use of the information to criminally investigate or prosecute any alcohol or drug abuse patient.[facility] CenterIn the event this information is protected by the Federal Confidentiality of Alcohol and Drug Abuse Patient Records regulations: The Federal rules restrict any use of the information to criminally investigate or prosecute any alcohol or drug abuse patient.[facility] CenterIn the event this information is protected by the Federal Confidentiality of Alcohol and Drug Abuse Patient Records regulations: The Federal rules restrict any use of the information to criminally investigate or prosecute any alcohol or drug abuse patient.[facility] CenterIn the event this information is protected by the Federal Confidentiality of Alcohol and Drug Abuse Patient Records regulations: The Federal rules restrict any use of the information to criminally investigate or prosecute any alcohol or drug abuse patient.[facility] CenterIn the event this information is protected by the Federal Confidentiality of Alcohol and Drug Abuse Patient Records regulations: The Federal rules restrict any use of the information to criminally investigate or prosecute any alcohol or drug abuse patient.[facility] CenterIn the event this information is protected by the Federal Confidentiality of Alcohol and Drug Abuse Patient Records regulations: The Federal rules restrict any use of the information to criminally investigate or prosecute any alcohol or drug abuse patient.[facility] CenterIn the event this information is protected by the Federal Confidentiality of Alcohol and Drug Abuse Patient Records regulations: The Federal rules restrict any use of the information to criminally investigate or prosecute any alcohol or drug abuse patient.[facility] CenterIn the event this information is protected by the Federal Confidentiality of Alcohol and Drug Abuse Patient Records regulations: The Federal rules restrict any use of the information to criminally investigate or prosecute any alcohol or drug abuse patient.[facility] CenterIn the event this information is protected by the Federal Confidentiality of Alcohol and Drug Abuse Patient Records regulations: The Federal rules restrict any use of the information to criminally investigate or prosecute any alcohol or drug abuse patient.[facility] FOR RECORDS PERTAINING TO PATIENTS [...] BE BASED ON THE PRIMARY CLINICAL RECORDS. [facility]. provides no warranty or guarantee of the accuracy or completeness of information in this document.
--- NOTE | 2024-05-05 03:55 | PC.NURSE ---
this patient awake and alert while transported upstairs, this patient's IV ATB continued while transport upstairs. this patient vioces no concerns and shows no signs of distress
[2024-05-05] MEDS: METHYLPREDNISOLONE SOD SUCC PF 40 MG/ML VIAL IVP ×3 (08:37→23:17)
[2024-05-05] MEDS: ALPRAZOLAM 0.25 MG TABLET PO ×2 (08:37→21:27)
[2024-05-05] MEDS: ENOXAPARIN SODIUM 40 MG/0.4 ML SYRINGE SUBQ (08:37)
[2024-05-05] MEDS: OMEPRAZOLE 20 MG CAPSULE.DR PO (09:36)
--- NOTE | 2024-05-05 10:41 | CM.NOTE ---
Rounds made with Dr. Patrick, discussed pt's condition in depth with family. Family wish to change pt code status to DNRCC. Family refuses hospice care at this time. Dr. Patrick discussed with family D/C all medications and BIPAP and keeping pt comfortable. Family all in agreement and DNRCC paperwork is signed.
--- NOTE | 2024-05-05 10:56 | CM.NOTE ---
Rounds made with Dr. Patrick, pt continues to require oxygen d/t hypoxia. Pt will change to inpatient status. No discharge today.
[2024-05-05] MEDS: PANTOPRAZOLE SODIUM 40 MG VIAL IV (11:07)
[2024-05-05] MEDS: LACTATED RINGER'S SOLUTION 1,000 ML 100 ML IV ×2 (11:07→21:28)
[2024-05-05] MEDS: POTASSIUM CHLORIDE 10 MEQ ER TABLET 40 MEQ PO (11:08)
--- NOTE | 2024-05-05 11:25 | P.HP_ITS ---
HPI H&P: HPI History of Present Illness Chief complaint: COPD EXACERBATION Narrative: 53-year-old female with history of COPD, bipolar depression presented to ER with 1 day history of progressively worsening shortness of breath, along with cough. She reports that she was in her usual state of health when she started to experience nausea, intractable vomiting and multiple episodes of large bowel movements that were watery and consistently with no blood. She also has mild abdominal discomfort. After her GI symptoms, she started to experience shortness of breath decided to come to ED for further evaluation. In ER, she was noted to have hypoxia with pulse ox in the 80s, increased work of breathing and was treated with IV Solu-Medrol and DuoNebs. Patient admitted overnight for observation and started on IV Solu-Medrol and DuoNebs. Patient was seen earlier today she is still requiring oxygen and is considerably short of breath at rest with conversational dyspnea noted. She is still feeling nauseous and having diarrhea. She is has mild abdominal discomfort. She has not been able to eat her breakfast because of nausea and just drinking water. Patient was originally admitted for observation -changed to inpatient because of persistent hypoxia/shortness of breath and no improvement despite initial period of observation. Opioid HPI Opioid Management Most Recent Pain and Opioid Data: Last Pain Scale 5 05/05/24 09:37 05/05/24 Last Pain Assessment 05/05/24 10:57 Last ORT Total Score 3 05/05/24 03:24 05/05/24 Last ORT Risk Category Low Risk 05/05/24 03:24 05/05/24 Ur Phencyclidine Scrn Negative (NEGATIVE) 03/15/24 09:10 02/16 12/09 Review of Systems ROS Status of ROS 10 or more systems reviewed and unremark able except as noted in history and below [facility] Medical History Depression ?F32.A - Depression, unspecified (ICD-10) Bipolar 2 disorder ?F31.81 - Bipolar II disorder (ICD-10) Bipolar 1 disorder ?F31.9 - Bipolar disorder, unspecified (ICD-10) History of posttraumatic stress disorder (PTSD) ?Z86.59 - Personal history of other mental and behavioral disorders (ICD-10) Panic disorder ?F41.0 - Panic disorder [episodic paroxysmal anxiety] (ICD-10) COPD (chronic obstructive pulmonary disease) ?J44.9 - Chronic obstructive pulmonary disease, unspecified (ICD-10) Surgical History History of hysterectomy ?Z90.710 - Acquired absence of both cervix and uterus (ICD-10) History of cholecystectomy ?Z90.49 - Acquired absence of other specified parts of digestive tract (ICD- 10) Hx of tonsillectomy ?Z90.89 - Acquired absence of other organs (ICD-10) History of appendectomy ?Z90.49 - Acquired absence of other specified parts of digestive tract (ICD- 10) Family History Other Family history of CHF (congestive heart failure) Family history of COPD (chronic obstructive pulmonary disease) Family history of hypertension Social History Within the past year, how often did you have a drink containing alcohol: never Within the past year, how often did you have six or more drinks on one occasion: never Score interpretation: A score less than 3 is consistent with normal alcohol consumption. Smoking status: Former smoker Non-prescribed substance use: denies use Highest level of school completed/degree received: 11th grade Are you now , , , , never or living with a partner: In a typical week, how many times do you talk on the telephone with family, friends, or neighbors: 3 or more times per week How often do you get together with friends or relatives: 3 or more times per week Little interest or pleasure in doing things: not at all Feeling down, depressed, or hopeless: not at all Feel stressed/tense/nervous/anxious/difficulty sleeping: not at all Do you think of yourself as: straight/heterosexual Gender Identity: female Meds Home Medications and Allergies Home Medications ?Medication ?Instructions ?Recorded ?Confirmed ?Type clonidine HCl 0.1 mg tablet 0.1 mg PO .qhs 03/15/24 05/05/24 History lamotrigine 200 mg tablet 200 mg PO .qhs 03/15/24 05/05/24 History mirtazapine 7.5 mg tablet 7.5 mg PO BEDTIME 03/15/24 05/05/24 History omeprazole 20 mg capsule,delayed 20 mg PO DAILY 03/15/24 05/05/24 History release alprazolam 0.25 mg tablet 0.25 mg PO BID 05/05/24 05/05/24 History amitriptyline 25 mg tablet 25 mg PO BEDTIME 05/05/24 05/05/24 History olanzapine 10 mg tablet 10 mg PO .QHS 05/05/24 05/05/24 History olanzapine 2.5 mg tablet 2.5 mg PO .qhs 05/05/24 05/05/24 History tiotropium bromide 2.5 2 puff inhalation DAILY 05/05/24 05/05/24 History mcg/actuation mist for inhalation (Spiriva Respimat) Allergies Allergy/AdvReac Type Severity Reaction Status Date / Time No Known Drug Allergies Allergy Verified 05/05/24 01:26 Exam Constitutional Vital Signs, click to edit/add: Last Vital Signs Temp 97.8 F 05/05/24 08:15 Pulse 98 H 05/05/24 09:49 Resp 16 05/05/24 08:15 BP 101/51 05/05/24 08:15 Pulse Ox 94 L 05/05/24 08:15 O2 Del Method Room Air 05/05/24 08:15 O2 Flow Rate 2 05/05/24 04:16 FiO2 100 05/05/24 01:15 Documenting provider has reviewed patient's vital signs: yes Common normals: oriented x3 General appearance: cooperative, in distress respiratory and anxious Respiratory Common normals: normal respiratory effort Effort & inspection: tachypneic and retractions Auscultation: wheezes and diminished lung sounds Other: Conversational dyspnea noted. Appears short of breath at rest. Cardio Common normals: regular rate, S1 normal heart sound and S2 normal heart sound Rate: regular rate Heart sounds: S1 normal and S2 normal GI Common normals: Normal to inspection, nondistended, normoactive bowel sounds p resent, soft to palpation, non-tender and no hepatosplenomegaly Palpation: soft and no hepatosplenomegaly Extremity Common normals: no clubbing, cyanosis or edema Neuro Common normals: oriented x3, moves all extremities and no focal motor deficits Psych Common normals: mental status grossly normal, denies hallucinations, denies homicidal ideation and denies suicidal ideation Results Labs Labs: Short CBC 05/05/24 Range/Units 01:52 WBC 13.4 H (4.0-11.0) 10^3/uL Hgb 14.5 (12.0-16.0) g/dL Hct 44.3 (36.0-48.0) % Plt Count 230 (150-450) 10^3/uL BMP 05/05/24 02:14 Sodium 136 Potassium 3.4 L Chloride 102 Carbon Dioxide 26.6 BUN 11.0 Creatinine 1.07 H Glucose 144 H Calcium 9.0 Assessment and Plan Assessment and Plan (1) Acute respiratory failure with hypoxia: (2) Gastroenteritis: (3) COPD exacerbation: (4) Intractable nausea and vomiting: (5) Diarrhea of infectious origin: (6) Bipolar 1 disorder: (7) History of posttraumatic stress disorder (PTSD): Plan Patient admitted for acute respiratory failure with hypoxia secondary to COPD exacerbation. Is still dyspneic at rest with hypoxia. Continue with Solu- Medrol 40 twice daily along with DuoNebs every 6 hours. According to ER report, there were no infiltrates on chest x-ray. I was unable to review chest x-ray myself because of technical difficulties. Patient is on empirical IV Levaquin. Will add Flagyl to cover concurrent intra-abdominal pathology. She is still quite nauseous and continues to have watery stools. Ordered C. difficile. Continue with IV hydration. Switch p.o. omeprazole to IV Protonix. Advance diet as tolerated. Currently on full liquid diet. Patient's mental health medications resumed with no changes. Case discussed with case management, patient's nurse. Explained the admitting diagnosis, treatment plan to the patient and answered her questions/addressed her concerns. Lovenox for DVT prophylaxis. Patient has ongoing need for continued inpatient medical stay for symptom management/treatment of her acute respiratory failure/COPD exacerbation along with gastroenteritis presumably of bacterial etiology
[2024-05-05] MEDS: METRONIDAZOLE/SODIUM CHLORIDE 500 MG/100 ML PREMIX 100 MG IV ×2 (15:23→21:26)
[2024-05-05] MEDS: LAMOTRIGINE 100 MG TABLET 200 MG PO (21:27)
[2024-05-05] MEDS: CLONIDINE HCL 0.1 MG TABLET PO (21:27)
[2024-05-05] MEDS: MIRTAZAPINE 15 MG TABLET 7.5 MG PO (21:27)
[2024-05-05] MEDS: OLANZapine 5 MG TABLET 12.5 MG PO (21:27)
[2024-05-05] MEDS: AMITRIPTYLINE HCL 25 MG TABLET PO (21:27)
[2024-05-06] VITALS (21 sets, daily range): BP systolic 98–118; BP diastolic 62–74; PULSE 67–112; TEMP 36.4–36.6; O2SAT 90–95
[2024-05-06] MEDS: LEVOFLOXACIN IN DEXTROSE 5 % 500 MG/100 ML PREMIX 100 MG IV (04:04)
[2024-05-06] MEDS: IPRATROPIUM/ALBUTEROL SULFATE 3 ML AMPUL.NEB IH ×4 (04:28→23:48)
[2024-05-06 06:14] LABS: Basophils Percent Auto 0.1 % (0.2-2.0); Eosinophils Percent Auto 0.1 % (0.9-7.0); Hematocrit 40.4 % (36.0-48.0); Hemoglobin 12.9 g/dL (12.0-16.0); Immature Granulocytes Abs Auto 0.07 10^3/uL (0.00-0.03); Immature Granulocytes Pct Auto 0.5 % (0.0-0.5); Lymphocytes Absolute Auto 0.5 10^3/uL (1.2-3.8); Lymphocytes Percent Auto 3.1 % (20.5-60.0); Mean Corpuscular HGB Conc 31.9 g/dL (29.9-35.2); Mean Corpuscular Hemoglobin 29.5 pg (26.7-34.0); Mean Corpuscular Volume 92.2 fL (81.0-99.0); Mean Platelet Volume 11.5 fL (9.5-13.5); Monocytes Absolute Auto 0.7 10^3/uL (0.3-0.8); Monocytes Percent Auto 4.7 % (1.7-12.0); Neutrophils Absolute Auto 14.1 10^3/uL (1.4-6.5); Neutrophils Percent Auto 91.5 % (43.0-75.0); Platelet Count 229 10^3/uL (150-450); Red Blood Count 4.38 10^6/uL (4.20-5.40); Red Cell Distribution Width 14.6 % (11.0-15.0); White Blood Count 15.4 10^3/uL (4.0-11.0)
[2024-05-06 06:33] LABS: Alanine Aminotransferase 17 U/L (14-59); Albumin Globulin Ratio 0.9; Albumin Level 2.9 g/dL (3.4-5.0); Alkaline Phosphatase 60 U/L (46-116); Anion Gap 14.3; Aspartate Amino Transferase 29 U/L (15-37); BUN Creatinine Ratio 13.6; Bilirubin Total 0.1 mg/dL (0.2-1.0); Calcium 8.7 mg/dL (8.5-10.1); Carbon Dioxide 28.5 mmol/L (21.0-32.0); Chloride 105 mmol/L (98-107); Estimated GFR (African America >60 (>=60 mL/min/1.73m^2); Estimated GFR (Non-African Ame >60 (>=60 mL/min/1.73m^2); Globulin 3.1 g/dL; Glucose 158 mg/dL (74-106); Potassium 3.8 mmol/L (3.5-5.1); Sodium 144 mmol/L (136-145)
[2024-05-06] MEDS: METRONIDAZOLE/SODIUM CHLORIDE 500 MG/100 ML PREMIX 100 MG IV ×3 (06:53→21:19)
[2024-05-06] MEDS: METHYLPREDNISOLONE SOD SUCC PF 40 MG/ML VIAL IVP ×3 (06:53→23:10)
[2024-05-06] MEDS: ONDANSETRON PF 4 MG/2 ML VIAL IV ×2 (07:22→13:45)
[2024-05-06] MEDS: PANTOPRAZOLE SODIUM 40 MG VIAL IV (09:02)
[2024-05-06] MEDS: ENOXAPARIN SODIUM 40 MG/0.4 ML SYRINGE SUBQ (09:02)
[2024-05-06] MEDS: ALPRAZOLAM 0.25 MG TABLET PO ×2 (09:02→21:21)
--- NOTE | 2024-05-06 10:25 | P.IMPN_ITS ---
Progress Note: A&P Assessment and Plan (1) Acute respiratory failure with hypoxia: (2) Gastroenteritis: (3) COPD exacerbation: (4) Intractable nausea and vomiting: (5) Diarrhea of infectious origin: (6) Bipolar 1 disorder: (7) History of posttraumatic stress disorder (PTSD): Plan Patient overall improved. Still reports nausea and anorexia. No vomiting or diarrhea. Will advance diet as tolerated. Patient is feeling better from respiratory point of view but continues to feel dyspnea at rest and on exertion. She is still needing oxygen. Continue with Solu-Medrol 40 q8 along with DuoNebs every 6 hours. Continue with IV Levaquin and Flagyl for possible bacterial gastroenteritis along with respiratory illness. Continue with IV hydration, IV Protonix. Advance diet as tolerated. Case discussed with case management, patient's nurse. Patient's questions and concerns answered and addressed. Lovenox for DVT prophylaxis. Patient has ongoing need for continued inpatient medical stay For symptom management/treatment of her acute respiratory failure/COPD exacerbation along with gastroenteritis presumably of bacterial etiology Internal Medicine - PN: Subj Subjective Interval history: Still feeling nauseous. But no vomiting or diarrhea. Mild abdominal pain. Resp symptoms are better but still dyspneic on minimal exertion. No overnight events Exam Constitutional Vital Signs, click to edit/add: Last Vital Signs Temp 97.5 F L 05/06/24 07:29 Pulse 81 05/06/24 10:00 Resp 18 05/06/24 07:32 BP 98/62 05/06/24 07:29 Pulse Ox 92 L 05/06/24 10:00 O2 Del Method Nasal Cannula 05/06/24 07:29 O2 Flow Rate 3 05/06/24 07:29 FiO2 100 05/05/24 01:15 Documenting provider has reviewed patient's vital signs: yes Common normals: oriented x3 General appearance: cooperative and anxious Respiratory Common normals: normal respiratory effort Auscultation: diminished lung sounds Other: Conversational dyspnea noted. Appears short of breath at rest. Cardio Common normals: regular rate, S1 normal heart sound and S2 normal heart sound Rate: regular rate Heart sounds: S1 normal and S2 normal GI Common normals: Normal to inspection, nondistended, normoactive bowel sounds present, soft to palpation and no hepatosplenomegaly Palpation: soft, tender Details: epigastric and no hepatosplenomegaly Extremity Common normals: no clubbing, cyanosis or edema Neuro Common normals: oriented x3, moves all extremities and no focal motor deficits Psych Common normals: mental status grossly normal, denies hallucinations, denies homicidal ideation and denies suicidal ideation Internal Medicine - PN: Obj Da Labs Labs: Laboratory Results - last 24 hr 05/06/24 05:51 WBC 15.4 H RBC 4.38 Hgb 12.9 Hct 40.4 MCV 92.2 MCH 29.5 MCHC 31.9 RDW 14.6 Plt Count 229 MPV 11.5 Neut % (Auto) 91.5 H Lymph % (Auto) 3.1 L [place] % (Auto) 4.7 Eos % (Auto) 0.1 L Baso % (Auto) 0.1 L Neut # (Auto) 14.1 H Lymph # (Auto) 0.5 L [place] # (Auto) 0.7 Eos # (Auto) 0.0 Baso # (Auto) 0.0 Abs Immat Gran (auto) 0.07 H Imm/Tot Granulo (auto) 0.5 Sodium 144 Potassium 3.8 Chloride 105 Carbon Dioxide 28.5 Anion Gap 14.3 BUN 12.0 Creatinine 0.88 Est GFR ( Amer) >60 Est GFR (Non-Af Amer) >60 BUN/Creatinine Ratio 13.6 Glucose 158 H Calcium 8.7 Total Bilirubin 0.1 L AST 29 ALT 17 Alkaline Phosphatase 60 Total Protein 6.0 L Albumin 2.9 L Globulin 3.1 Albumin/Globulin Ratio 0.9
--- NOTE | 2024-05-06 10:57 | CM.NOTE ---
Rounds made with Dr. Patrick. Dr. Patrick discussed diagnostic tests and treatment plan. Will increase to diet as tolerated. Jeri verbalized understanding. No discharge planned for today.
[2024-05-06] MEDS: LACTATED RINGER'S SOLUTION 1,000 ML 100 ML IV ×2 (11:46→21:19)
[2024-05-06] MEDS: GUAIFENESIN 200 MG/DEXTROMETHORPHAN 20 MG 10 ML UNIT DOSE CUP PO (21:20)
[2024-05-06] MEDS: MIRTAZAPINE 15 MG TABLET 7.5 MG PO (21:21)
[2024-05-06] MEDS: LAMOTRIGINE 100 MG TABLET 200 MG PO (21:21)
[2024-05-06] MEDS: CLONIDINE HCL 0.1 MG TABLET PO (21:21)
[2024-05-06] MEDS: OLANZapine 5 MG TABLET 12.5 MG PO (21:21)
[2024-05-06] MEDS: AMITRIPTYLINE HCL 25 MG TABLET PO (21:21)
[2024-05-07] VITALS (22 sets, daily range): BP systolic 120–151; BP diastolic 70–88; PULSE 61–105; TEMP 36.4–36.6; O2SAT 88–94
[2024-05-07] MEDS: IPRATROPIUM/ALBUTEROL SULFATE 3 ML AMPUL.NEB IH ×4 (04:09→22:32)
[2024-05-07] MEDS: LEVOFLOXACIN IN DEXTROSE 5 % 500 MG/100 ML PREMIX 100 MG IV (04:09)
[2024-05-07 05:47] LABS: Basophils Percent Auto 0.1 % (0.2-2.0); Eosinophils Percent Auto 0.2 % (0.9-7.0); Hematocrit 42.2 % (36.0-48.0); Hemoglobin 13.5 g/dL (12.0-16.0); Immature Granulocytes Abs Auto 0.11 10^3/uL (0.00-0.03); Immature Granulocytes Pct Auto 0.7 % (0.0-0.5); Lymphocytes Absolute Auto 0.5 10^3/uL (1.2-3.8); Mean Corpuscular Hemoglobin 29.7 pg (26.7-34.0); Mean Corpuscular Volume 92.7 fL (81.0-99.0); Mean Platelet Volume 11.6 fL (9.5-13.5); Monocytes Absolute Auto 0.2 10^3/uL (0.3-0.8); Monocytes Percent Auto 1.4 % (1.7-12.0); Neutrophils Percent Auto 94.6 % (43.0-75.0); Platelet Count 240 10^3/uL (150-450); Red Blood Count 4.55 10^6/uL (4.20-5.40); Red Cell Distribution Width 14.8 % (11.0-15.0); White Blood Count 15.9 10^3/uL (4.0-11.0)
[2024-05-07 06:12] LABS: Alanine Aminotransferase 23 U/L (14-59); Albumin Globulin Ratio 0.9; Albumin Level 2.8 g/dL (3.4-5.0); Alkaline Phosphatase 60 U/L (46-116); Anion Gap 10.7; Aspartate Amino Transferase 27 U/L (15-37); BUN Creatinine Ratio 9.8; Bilirubin Total 0.2 mg/dL (0.2-1.0); Calcium 8.8 mg/dL (8.5-10.1); Carbon Dioxide 29.7 mmol/L (21.0-32.0); Chloride 108 mmol/L (98-107); Estimated GFR (African America >60 (>=60 mL/min/1.73m^2); Estimated GFR (Non-African Ame 57 (>=60 mL/min/1.73m^2); Globulin 3.2 g/dL; Glucose 170 mg/dL (74-106); Potassium 3.4 mmol/L (3.5-5.1); Sodium 145 mmol/L (136-145)
[2024-05-07] MEDS: METHYLPREDNISOLONE SOD SUCC PF 40 MG/ML VIAL IVP ×2 (06:13→21:57)
[2024-05-07] MEDS: METRONIDAZOLE/SODIUM CHLORIDE 500 MG/100 ML PREMIX 100 MG IV ×3 (06:13→21:57)
[2024-05-07] MEDS: ONDANSETRON PF 4 MG/2 ML VIAL IV (07:43)
[2024-05-07] MEDS: ALPRAZOLAM 0.25 MG TABLET PO ×2 (08:35→21:57)
[2024-05-07] MEDS: ENOXAPARIN SODIUM 40 MG/0.4 ML SYRINGE SUBQ (08:35)
[2024-05-07] MEDS: GUAIFENESIN 200 MG/DEXTROMETHORPHAN 20 MG 10 ML UNIT DOSE CUP PO ×2 (08:35→21:57)
[2024-05-07] MEDS: PANTOPRAZOLE SODIUM 40 MG VIAL IV (08:36)
--- NOTE | 2024-05-07 10:01 | CM.NOTE ---
Rounds made with Dr. Patrick, pt continues to require oxygen. RN will attempt to wean as tolerated. Pt verbalizes increase in appetite today and will attempt lunch. No discharge today.
[2024-05-07] MEDS: POTASSIUM CHLORIDE 10 MEQ ER TABLET 40 MEQ PO (10:21)
[2024-05-07] MEDS: OMEPRAZOLE 40 MG CAPSULE.DR PO (10:21)
--- NOTE | 2024-05-07 10:50 | P.IMPN_ITS ---
Progress Note: A&P Assessment and Plan (1) Acute respiratory failure with hypoxia: (2) Gastroenteritis: (3) COPD exacerbation: (4) Intractable nausea and vomiting: (5) Diarrhea of infectious origin: (6) Bipolar 1 disorder: (7) History of posttraumatic stress disorder (PTSD): Plan Patient subjectively feels better but is still has nausea and anorexia. Discontinue IV fluids. Her respiratory symptoms are also better but she is still hypoxic and short of breath and requiring 3 L of oxygen via nasal cannula. Repeat chest x-ray. Decrease Solu-Medrol to every 12 dosing. Continue with DuoNebs. Continue with IV Levaquin and Flagyl for possible bacterial gastroenteritis along with respiratory illness. Switch to p.o. omeprazole. Case discussed with case management, patient's nurse. Patient's questions and concerns answered and addressed. Lovenox for DVT prophylaxis. Patient has ongoing need for continued inpatient medical stay For symptom management/treatment of her acute respiratory failure/COPD exacerbation along with gastroenteritis Internal Medicine - PN: Subj Subjective Interval history: Seen and examined. Still feeling nauseous and has poor appetite. Diarrhea resolved. Subjectively feels better and is going to order food today and eat for the first time since hospital admission. Her breathing pattern is also better and she feels much less short of breath. Exam Constitutional Vital Signs, click to edit/add: Last Vital Signs Temp 97.8 F 05/07/24 07:59 Pulse 68 05/07/24 09:56 Resp 19 05/07/24 10:30 BP 120/74 05/07/24 07:59 Pulse Ox 92 L 05/07/24 10:30 O2 Del Method Nasal Cannula 05/07/24 10:30 O2 Flow Rate 2 05/07/24 10:30 FiO2 100 05/05/24 01:15 Documenting provider has reviewed patient's vital signs: yes Common normals: oriented x3 General appearance: cooperative Respiratory Common normals: normal respiratory effort Auscultation: diminished lung sounds Other: Improved aeration. Expiratory wheezing noted. Cardio Common normals: regular rate, S1 normal heart sound and S2 normal heart sound Rate: regular rate Heart sounds: S1 normal and S2 normal GI Common normals: Normal to inspection, nondistended, normoactive bowel sounds present, soft to palpation and no hepatosplenomegaly Palpation: soft, tender Details: epigastric and no hepatosplenomegaly Extremity Common normals: no clubbing, cyanosis or edema Neuro Common normals: oriented x3, moves all extremities and no focal motor deficits Psych Common normals: mental status grossly normal, denies hallucinations, denies homicidal ideation and denies suicidal ideation Internal Medicine - PN: Obj Da Labs Labs: Laboratory Results - last 24 hr 05/07/24 05:30 WBC 15.9 H RBC 4.55 Hgb 13.5 Hct 42.2 MCV 92.7 MCH 29.7 MCHC 32.0 RDW 14.8 Plt Count 240 MPV 11.6 Neut % (Auto) 94.6 H Lymph % (Auto) 3.0 L [place] % (Auto) 1.4 L Eos % (Auto) 0.2 L Baso % (Auto) 0.1 L Neut # (Auto) 15.0 H Lymph # (Auto) 0.5 L [place] # (Auto) 0.2 L Eos # (Auto) 0.0 Baso # (Auto) 0.0 Abs Immat Gran (auto) 0.11 H Imm/Tot Granulo (auto) 0.7 H Sodium 145 Potassium 3.4 L Chloride 108 H Carbon Dioxide 29.7 Anion Gap 10.7 BUN 10.0 Creatinine 1.02 Est GFR ( Amer) >60 Est GFR (Non-Af Amer) 57 L BUN/Creatinine Ratio 9.8 Glucose 170 H Calcium 8.8 Total Bilirubin 0.2 AST 27 ALT 23 Alkaline Phosphatase 60 Total Protein 6.0 L Albumin 2.8 L Globulin 3.2 Albumin/Globulin Ratio 0.9
--- NOTE | 2024-05-07 11:16 | SWNOTE1 ---
Pt may need home oxygen. SW did call [facility] [place] and [facility] if pt needs home oxygen.
[2024-05-07] MEDS: MIRTAZAPINE 15 MG TABLET 7.5 MG PO (21:57)
[2024-05-07] MEDS: CLONIDINE HCL 0.1 MG TABLET PO (21:58)
[2024-05-07] MEDS: OLANZapine 5 MG TABLET 12.5 MG PO (21:58)
[2024-05-07] MEDS: AMITRIPTYLINE HCL 25 MG TABLET PO (21:58)
[2024-05-07] MEDS: LAMOTRIGINE 100 MG TABLET 200 MG PO (21:58)
[2024-05-08] VITALS (11 sets, daily range): BP systolic 116–162; BP diastolic 65–84; PULSE 63–114; TEMP 36.3–36.9; O2SAT 81–95
[2024-05-08] MEDS: LEVOFLOXACIN IN DEXTROSE 5 % 500 MG/100 ML PREMIX 50 MG IV (04:06)
[2024-05-08] MEDS: IPRATROPIUM/ALBUTEROL SULFATE 3 ML AMPUL.NEB IH ×2 (04:12→10:43)
[2024-05-08] MEDS: METRONIDAZOLE/SODIUM CHLORIDE 500 MG/100 ML PREMIX 100 MG IV (05:14)
[2024-05-08 06:28] LABS: Basophils Percent Auto 0.2 % (0.2-2.0); Hemoglobin 13.4 g/dL (12.0-16.0); Immature Granulocytes Abs Auto 0.16 10^3/uL (0.00-0.03); Immature Granulocytes Pct Auto 1.3 % (0.0-0.5); Lymphocytes Absolute Auto 0.7 10^3/uL (1.2-3.8); Lymphocytes Percent Auto 5.5 % (20.5-60.0); Mean Corpuscular HGB Conc 31.9 g/dL (29.9-35.2); Mean Corpuscular Hemoglobin 29.3 pg (26.7-34.0); Mean Corpuscular Volume 91.9 fL (81.0-99.0); Mean Platelet Volume 11.8 fL (9.5-13.5); Monocytes Absolute Auto 0.8 10^3/uL (0.3-0.8); Platelet Count 243 10^3/uL (150-450); Red Blood Count 4.57 10^6/uL (4.20-5.40); Red Cell Distribution Width 14.6 % (11.0-15.0); White Blood Count 12.6 10^3/uL (4.0-11.0)
[2024-05-08 06:44] LABS: Alanine Aminotransferase 20 U/L (14-59); Albumin Globulin Ratio 1.1; Albumin Level 3.1 g/dL (3.4-5.0); Alkaline Phosphatase 53 U/L (46-116); Anion Gap 10.4; Aspartate Amino Transferase 23 U/L (15-37); BUN Creatinine Ratio 8.9; Bilirubin Total 0.3 mg/dL (0.2-1.0); Carbon Dioxide 30.3 mmol/L (21.0-32.0); Chloride 105 mmol/L (98-107); Estimated GFR (African America >60 (>=60 mL/min/1.73m^2); Estimated GFR (Non-African Ame 51 (>=60 mL/min/1.73m^2); Globulin 2.8 g/dL; Glucose 131 mg/dL (74-106); Potassium 3.7 mmol/L (3.5-5.1); Sodium 142 mmol/L (136-145); Total Protein 5.9 g/dL (6.4-8.2)
[2024-05-08] MEDS: ENOXAPARIN SODIUM 40 MG/0.4 ML SYRINGE SUBQ (08:42)
[2024-05-08] MEDS: METHYLPREDNISOLONE SOD SUCC PF 40 MG/ML VIAL IVP (08:42)
[2024-05-08] MEDS: ALPRAZOLAM 0.25 MG TABLET PO (08:42)
[2024-05-08] MEDS: OMEPRAZOLE 40 MG CAPSULE.DR PO (08:42)
--- NOTE | 2024-05-08 09:40 | SWNOTE1 ---
SW received a message from case management and pt will dc on home oxygen. Pt has no preference on O2 company. [employer] does take her insurance. NELLIE to send information to [employer].
--- NOTE | 2024-05-08 10:48 | PM.DS1 ---
DS: Providers Provider Date of admission: 05/05/24 10:00 Primary care physician: LALA ZARCO Admitting clinician: Shaikh Celina Attending physician on admission: Shaikh Celina Attending physician on discharge: Shaikh Celina Discharging clinician: Shaikh Celina Anticipated date of discharge: 05/08/24 DS: Diagnosis Discharge Diagnosis (1) Acute respiratory failure with hypoxia: (2) Gastroenteritis: (3) COPD exacerbation: (4) Intractable nausea and vomiting: (5) Diarrhea of infectious origin: (6) Bipolar 1 disorder: (7) History of posttraumatic stress disorder (PTSD): DS: Summary Hospital Course Hospital Course: 53-year-old female with history of COPD, bipolar depression presented to ER with 1 day history of progressively worsening shortness of breath, along with cough. She reported to us that she was in her usual state of health when she started to experience nausea, intractable vomiting and multiple episodes of large bowel movements that were watery in consistency with no blood. She also reported mild abdominal discomfort. After her GI symptoms started, she then started to experience shortness of breath and decided to come to ED for further evaluation. In ER, she was noted to have hypoxia with pulse ox in the 80s, increased work of breathing and was treated with IV Solu-Medrol and DuoNebs. Patient was initially admitted for observation but subsequently changed to inpatient for continued dyspnea, hypoxia and GI symptoms with no improvement noted after an initial period of observation next day. Patient was treated with IV Solu-Medrol and DuoNebs. She was empirically treated for community-acquired pneumonia along with bacterial gastroenteritis with IV Levaquin and Flagyl. She also required IV Zofran as needed along with IV fluids for dehydration. She slowly improved clinically during the course of admission with resolution of her nausea, vomiting and diarrhea. She started to tolerate p.o. diet without any difficulty. However she continues to have persistent hypoxia and requiring 2 L of oxygen via nasal cannula. Her respiratory symptoms are considerably improved and she denies shortness of breath at rest and feels comfortable but is still feels mild dyspnea on exertion. Her chest x-ray did not reveal any signs of consolidation. Patient is medically stable for discharge. She will be discharged on prednisone taper along with Levaquin and Flagyl. I had a [id number] encounter with patient regarding home oxygen supplementation. I discussed home oxygen use, and answered her questions and concerns. Patient will have a home O2 evaluation by respiratory therapy and will likely need home oxygen for a few weeks until she has fully recovered from COPD exacerbation. Patient was educated on worrisome signs and symptoms and was instructed to return to ED if she had worsening nausea, vomiting, abdominal pain, diarrhea and or shortness of breath/hypoxia. Patient will need follow-up with PCP in 1 to 2 weeks. Status at Discharge Functional status at discharge: independent ambulation Overall status at discharge: patient is progressing back to baseline Time Spent with Patient Time attestation: Total time spent providing and/or coordinating discharge services: Time spent: greater than 30 minutes Exam Constitutional Vital Signs, click to edit/add: Last Vital Signs Temp 97.6 F 05/08/24 08:46 Pulse 114 H 05/08/24 09:53 Resp 18 05/08/24 08:46 BP 162/84 H 05/08/24 08:46 Pulse Ox 91 L 05/08/24 10:34 O2 Del Method Nasal Cannula 05/08/24 10:43 O2 Flow Rate 2 05/08/24 10:43 FiO2 100 05/05/24 01:15 Documenting provider has reviewed patient's vital signs: yes Common normals: oriented x3 General appearance: cooperative Respiratory Common normals: normal respiratory effort and no use of accessory muscles Effort & inspection: able to speak in complete sentences Auscultation: wheezes expiratory wheezes Cardio Common normals: regular rate, S1 normal heart sound and S2 normal heart sound Rate: regular rate Heart sounds: S1 normal and S2 normal GI Common normals: Normal to inspection, nondistended, normoactive bowel sounds present, soft to palpation and no hepatosplenomegaly Palpation: soft, tender Details: epigastric and no hepatosplenomegaly Extremity Common normals: no clubbing, cyanosis or edema Neuro Common normals: oriented x3, moves all extremities and no focal motor deficits Psych Common normals: mental status grossly normal, denies hallucinations, denies homicidal ideation and denies suicidal ideation DS: Data Data Completed and Pending Labs on day of discharge: Labs from last 24 hours 05/08/24 06:01 WBC 12.6 H RBC 4.57 Hgb 13.4 Hct 42.0 MCV 91.9 MCH 29.3 MCHC 31.9 RDW 14.6 Plt Count 243 MPV 11.8 Neut % (Auto) 87.0 H Lymph % (Auto) 5.5 L [place] % (Auto) 6.0 Eos % (Auto) 0.0 L Baso % (Auto) 0.2 Neut # (Auto) 11.0 H Lymph # (Auto) 0.7 L [place] # (Auto) 0.8 Eos # (Auto) 0.0 Baso # (Auto) 0.0 Abs Immat Gran (auto) 0.16 H Imm/Tot Granulo (auto) 1.3 H Sodium 142 Potassium 3.7 Chloride 105 Carbon Dioxide 30.3 Anion Gap 10.4 BUN 10.0 Creatinine 1.12 H Est GFR ( Amer) >60 Est GFR (Non-Af Amer) 51 L BUN/Creatinine Ratio 8.9 Glucose 131 H Calcium 9.0 Total Bilirubin 0.3 AST 23 ALT 20 Alkaline Phosphatase 53 Total Protein 5.9 L Albumin 3.1 L Globulin 2.8 Albumin/Globulin Ratio 1.1 Preliminary micro results at discharge 05/05/24 02:56 Blood Culture Result 2 - Preliminary Blood - Right Forearm NO GROWTH AT 36-48 HOURS. FINAL TO FOLLOW. 05/05/24 02:48 Blood Culture Result 1 - Preliminary Blood - Left Hand NO GROWTH AT 36-48 HOURS. FINAL TO FOLLOW. Discharge Plan Discharge Disposition: Home, Self-Care Condition: Fair Discharge Medications: New prednisone 20 mg tablet 20 mg PO DAILY Qty: 20 0RF Rx Instructions: 3 tab x 3 days, 2 tabs x 3 days, 1 tab x 3 days. 1/2 tab x 4 days ondansetron 4 mg tablet,disintegrating 4 mg PO Q6H PRN (Reason: nausea and vomiting) 4 Days Qty: 10 0RF levofloxacin 750 mg tablet 750 mg PO DAILY Qty: 3 0RF metronidazole 500 mg tablet 500 mg PO BID Qty: 6 0RF albuterol sulfate [Ventolin HFA] 90 mcg/actuation HFA aerosol inhaler 2 inh inhalation Q6H PRN (Reason: shortness of breath or wheezing) Qty: 6.7 0RF Continued clonidine HCl 0.1 mg tablet 0.1 mg PO .qhs lamotrigine 200 mg tablet 200 mg PO .qhs omeprazole 20 mg capsule,delayed release(DR/EC) 20 mg PO DAILY mirtazapine 7.5 mg tablet 7.5 mg PO BEDTIME alprazolam 0.25 mg tablet 0.25 mg PO BID amitriptyline 25 mg tablet 25 mg PO BEDTIME olanzapine 2.5 mg tablet 2.5 mg PO .qhs Spiriva Respimat 2.5 mcg/actuation mist 2 puff INHALATION DAILY olanzapine 10 mg tablet 10 mg PO .QHS Activity: increase activity as tolerated Diet: advance to your usual diet Print Language: Divehi Forms: Portal Instructions Follow Up Appointments: @ 10:40am with Laal Zarco, APPRENTICE [employer]INTER [employer] [phone]
--- NOTE | 2024-05-08 10:55 | SWNOTE1 ---
Referral sent to [facility] for home oxygen. Including; face sheet, script, walk test, H&P and dc summary.
--- NOTE | 2024-05-08 10:56 | CM.NOTE ---
Rounds made with Dr. Patrick, pt will discharge to home today and home oxygen. RN performed walk test and SW setting up oxygen.
--- NOTE | 2024-05-08 11:47 | CM.NOTE ---
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 Pt states this is her 1st flare that has put her in the hospital. Talked with pt about pulmonary rehab for disease management and importance of f/u visits and managing the disease. Pt verbalizes understanding, pt will discuss a plan with her PCP upon her f/u visit. Pt will go home with home oxygen this admission and will f/u with PCP in one week.
--- NOTE | 2024-05-08 12:40 | SWNOTE1 ---
[facility] and [facility] and patient is set with oxygen and can be discharge. SW notified pt to call [facility] on [address] or once home so they can deliver the rest of equipment.
--- NOTE | 2024-05-12 14:59 | CM.DCFOLLOWU ---
1st attempt 05/12/24, no answer
--- NOTE | 2024-05-13 13:58 | CM.DCFOLLOWU ---
2nd attempt 05/13/24, phone number disconnected
== END 2024-05-08 14:17 | disposition home or self-care (01) | DRG 140 ==
LOC: ER 02:49 → MS 03:31
PROVIDERS: Admitting Provider Internal Medicine; Emergency Provider Emergency Medicine; PCP Nurse Practitioner; Visit Provider Internal Medicine
DX: J44.1 Chronic obstructive pulmonary disease with (acute) exacerbation (principal); J96.01 Acute respiratory failure with hypoxia; A09 Infectious gastroenteritis and colitis, unspecified; F31.9 Bipolar disorder, unspecified; Z90.710 Acquired absence of both cervix and uterus; Z90.49 Acquired absence of other specified parts of digestive tract; Z87.891 Personal history of nicotine dependence; R11.2 Nausea with vomiting, unspecified; F43.10 Post-traumatic stress disorder, unspecified; E86.0 Dehydration; Z99.81 Dependence on supplemental oxygen
CPT/HCPCS: 36415; 71045; 80048; 80053; 84484; 85025; 87040; 87493; 87804; 87811; 93005; 94640; 94667; 94668; 94761; 96365; 96375; 96376; 99285; J1650; J1836; J1956; J2405; J2919

== ENCOUNTER 2024-05-17 10:57 | Emergency (ER) | payer OTHER, SELFPAY ==
[2024-05-17] VITALS (16 sets, daily range): BP systolic 109–110; BP diastolic 73–93; PULSE 85–112; O2SAT 93–99; BMI 21.3
--- OUTSIDE RECORDS SUMMARY | 2024-05-17 11:08 | XMS_ITS | CCD ---
Author Organization [facility] Care Team Providers Care Wire Weaving Loom Setter Name Role Phone Cristina Iqbal CNP Primary Care Provider [phone] Vipin Pina Attending Unavailable Roshni Werenr Attending Unavailable Cristina Iqbal CNP Primary Care Provider [phone] CRISTINA IQBAL Primary Care Unavailable JENNY, ALESSANDROENDER Attending Unavailable CRISTINA IQBAL Primary Care Unavailable JENNY, ALESSANDROENDER Attending Unavailable CRISTINA IQBAL Primary Care Unavailable JENNY, ALESSANDROENDER Attending Unavailable CRISITNA IQBAL Primary Care Unavailable KENNEDYOT, ALESSANDROENDER Attending Unavailable Cristina Iqbal CNP Primary Care Provider [phone] Cristina Iqbal CNP Primary Care Provider Cristina Iqbal CNP Primary Care Provider [phone] CRISTINA IQBAL Primary Care Unavailable KIRSTEN DALTON Attending Unavailable CRISTINA IQBAL Primary Care Unavailable DAVIDI, ANASTASIYA Referring Unavailable JAYLIN, ANASTASIYA Attending Unavailable CRISTINA IQBAL Primary Care Unavailable JAYLIN, ANASTASIYA Attending Unavailable CRISTINA IQBAL Referring Unavailable ROGER, CRISTINA VICKERS Primary Care Unavailable CRISTINA IQBAL Primary Care Unavailable CRISTINA IQBAL Referring Unavailable TIFFANI MORALES Attending Unavailable FREDERICK CHAVES Attending Unavailable CRISTINA IQBAL Primary Care Unavailable TIFFANI MORALES Referring Unavailable AICHHOLZ, CRISTINA ALEE Primary Care Unavailable TIFFANI MORALES Referring Unavailable TIFFANI MORALES Attending Unavailable AICHOLZ, CRISTINA ALEE Primary Care Unavailable YAN GARCIA JR Attending Unavailable AICHOLZ, CRISTINA ALEE Primary Care Unavailable ANASTASIYA MOSQUEDA Referring Unavailable [facility], [facility] Primary Care Unavailable ANNELISE FRAZIER Admitting Unavailable ANNELISE FRAZIER Attending Unavailable ANNELISE FRAZIER Consulting Unavailable BELEN REGAN Consulting Unavailable IRINA SEGURA Admitting Unavailable IRINA SEGURA Attending Unavailable AICHOL, [facility] Primary Care Unavailable MISC, DR DECKER Consulting Unavailable GEHLOT, UPENDER Admitting Unavailable GEHLOT, UPENDER Attending Unavailable [facility], [facility] CRISTINA Referring Unavailable [facility] Primary Care Unavailable GEHLOT, UPENDER Consulting Unavailable BENEDICT, DR RYDER Admitting Unavailable BENEDICT, DR RYDER Attending Unavailable [facility], [facility] Primary Care Unavailable BENEDICT, DR RYDER Consulting Unavailable MISC, DR DECKER Admitting Unavailable MISC, DR DECKER Attending Unavailable AICHOLZ, [facility] Primary Care Unavailable MISC, DR DECKER Consulting Unavailable AICHOL, [facility] Primary Care Unavailable PAY ., DR ZULUAGA Admitting Unavailable PAY ., DR UZLUAGA Attending Unavailable PAY ., DR ZULUAGA Consulting Unavailable CHITRA ALFARO Consulting [facility], [facility] Primary Care Unavailable PAY ., DR ZULUAGA Admitting Unavailable PAY ., DR ZULUAGA Attending Unavailable ZIEBER, DR RYDER R Consulting Unavailable PAY ., DR ZULUAGA Consulting Unavailable [facility], [facility] Primary Care Unavailable GELA WESLEY Admitting Unavailable GELA WESLEY Attending Unavailable BARBI HENRY Consulting Unavailable GELA WESLEY Consulting Unavailable [facility] Primary Care Physician Lala Zarco Primary Care Physician [phone] Eligio Noe Attending Unavailable Eligio Noe Admitting Unavailable Aichholz, Cristina Therese Primary Care Unavailable [facility] Primary Care Unavailable Sandoval Rae Admitting Unavailable Sandoval Rae Attending Unavailable Sandoval Rae Referring Unavailable Sandoval Rae Attending Unavailable Sandoval Rae Attending Unavailable Sandoval Rae Attending Unavailable Sandoval Rae Attending Unavailable Lala Zarco Attending Unavailable Lala Zarco Attending Unavailable [facility] Unavailable Laal Zarco Attending Unavailable Sandoval Rae Admitting Unavailable Sandoval Rae Attending Unavailable Sandoval Rae Referring Unavailable Lala Zarco Admitting Unavailable Lala Zarco Attending Unavailable Medications Current Medications Medication Drug Class(es) [...] bedtime), # 30 tab(s), Refills(s) 5, Pharmacy: [facility]/pharmacy #[id number], 169, cm, 03/23/24 13:17:00 EST, Height/Length [...] day(s), # 10 cap(s), Refills(s) 0, Pharmacy: [facility]/pharmacy #[id number], 172, cm, 09/24/23 13:02:00 EDT, Height/Length Dosing, 61.2, kg, 09/24/23 13:02:00 EDT, Weight Dosing Start Date: 09/24/23 Stop Date: 09/29/23 Status: Ordered cholestyramine resin 4000 mg powder for oral suspension (5 sources) Bile Acid Sequestrant Start: Questran 4 g/9 g oral powder = 1 packet(s), Oral, BID, # 60 EA, Refills(s) 2, [id number], 169, cm, 01/16/24 10:14:00 EDT, Height/Length Dosing, 63.9, kg, 01/16/24 10:14:00 EDT, Weight Dosing Start Date: 01/16/24 Status: Ordered cloNIDine hydrochloride 0.2 mg oral tablet (20 sources) Central alpha-2 Adrenergic Agonist Start: End: take 1 tablet by mouth at bedtime cloNIDine 0.2 mg Tab 0.2 mg = 1 tab(s), Oral, Bedtime, # 30 tab(s), Refills(s) 1, [id number], 173, cm, 05/24/20 14:42:00 EST, Height/Length Dosing, 50.1, kg, 05/24/20 14:42:00 EST, Weight Dosing Start Date: 05/24/20 Status: Ordered colestipol hydrochloride 1000 mg oral tablet (5 sources) Bile Acid Sequestrant Start: take 2 tablets by mouth twice daily colestipol 1 g Tab 2 gm = 2 tab(s), Oral, BID, with a full glass of water, # 120 tab(s), Refills(s) 1, [id number], 169, cm, 01/16/24 10:14:00 EDT, Height/Length [...] mg oral tablet (14 sources) Antihistamine Start: 021 take 1 tablet by mouth three times daily as needed for anxiety hydrOXYzine hydrochloride 50 mg oral tablet 50 mg = 1 tab(s), Oral, TID, PRN as needed for anxiety, # 30 tab(s), Refills(s) 0, Pharmacy: [facility]/pharmacy #[id number], 173, cm, 04/26/20 13:07:00 EST, [...] (20 sources) Mood Stabilizer, Anti-epileptic Agent Start: 09-11-20 24 take 1 tablet by mouth once daily lamotrigine 25 mg Tab See Instructions, TAKE 1 TABLET BY MOUTH EVERY DAY IN THE AFTERNOON, # 30 tab(s), Refills(s) 0, Pharmacy: [facility] STORE [id number], 169.7, cm, 11/26/23 15:32:00 EDT, Height/Length Dosing, [...] Start: 08-29-2020 take 1 tablet by shahzad once daily lamoTRIgine (LAMICTAL) 200 MG tablet Take 1 (one) tablet (200 mg total) by mouth daily Start: 08/29/20. 30 tablet 1 08/29/2020 Active Start: 07-08-2020 End: 08-22-2020 lamoTRIgine (LAMICTAL) 25 MG tablet Comment on above: Take 200 mg by mouth . mirtazapine 7.5 mg oral tablet (6 sources) Start: 4 take 1 tablet by mouth at bedtime mirtazapine 7.5 mg oral tablet 7.5 mg = 1 tab(s), Oral, Bedtime, # 30 tab(s), Refills(s) 0, Pharmacy: [facility]/pharmacy #[id number], 169.7, cm, 10/03/23 9:38:00 EDT, [...] DAY, # 30 cap(s), Refills(s) 0, Pharmacy: [id number], 169, cm, 02/25/24 9:14:00 EST, Height/Length Dosing, 62.2, kg, 02/25/24 9:14:00 EST, Weight Dosing Start Date: 03/23/24 Status: Ordered Start: 02-24-2024 take 1 capsule by [facility] once daily omeprazole 20 mg Cap-DR See Instructions, TAKE 1 CAPSULE BY MOUTH EVERY DAY, # 30 cap(s), Refills(s) 0, Pharmacy: [id number], 169, cm, 02/21/24 8:47:00 EST, Height/Length Dosing, 62.2, kg, 02/21/24 8:47:00 EST, Weight Dosing Start Date: 02/24/24 Status: Ordered Start: 01-20-2024 take 1 capsule by [facility] once daily omeprazole 20 mg Cap-DR See Instructions, TAKE 1 CAPSULE BY MOUTH EVERY DAY, # 30 cap(s), Refills(s) 0, Pharmacy: [id number], 169, cm, 01/16/24 10:14:00 EDT, Height/Length Dosing, 63.9, kg, 01/16/24 10:14:00 EDT, Weight Dosing Start Date: 01/20/24 Status: Ordered Start: 12-04-2023 take 1 capsule by [facility] once daily omeprazole 20 mg Cap-DR See Instructions, TAKE 1 CAPSULE BY MOUTH EVERY DAY, # 30 cap(s), Refills(s) 0, [id number], 169.7, cm, 11/26/23 15:32:00 EDT, Height/Length Dosing, 62.1, kg, 11/26/23 15:32:00 EDT, Weight Dosing Start Date: 12/04/23 Status: Ordered ondansetron 4 mg oral tablet (20 sources) Serotonin-3 Receptor Antagonist Start: 02-27-2024 take 1 tablet by mouth every eight hours as needed for nausea Zofran 4 mg Tab 4 mg = 1 tab(s), Oral, q8hr, PRN Nausea, # 30 tab(s), Refills(s) 0, [id number], 169, cm, 02/25/24 9:14:00 EST, Height/Length Dosing, 62.2, kg, 02/25/24 9:14:00 EST, Weight Dosing Start Date: 02/27/24 Status: Ordered Start: 02-18-2024 ondansetron 8 mg Dis Tab See Instructions, DISSOLVE 1 TABLET ON THE TONGUE EVERY 8 HOURS NEEDED FOR NAUSEA AND VOMITING, # 24 tab(s), Refills(s) 0, [id number], 169, cm, 02/18/24 11:55:00 EST, Height/Length Dosing, 61.8, kg, 02/18/24 11:55:00 EST, Weight Dosing Start Date: 02/18/24 Status: Ordered Start: 12-20-2023 take 1 tablet by [facility] every six hours as needed for nausea ondansetron 4 mg Dis Tab 4 mg = 1 tab(s), Oral, q6hr, PRN Nausea/Vomiting, # 30 tab(s), Refills(s) 0, [id number], 169.7, cm, 11/26/23 15:32:00 EDT, Height/Length [...] Nausea, # 10 tab(s), Refills(s) 0, Pharmacy: [facility]/pharmacy #[id number], 173, cm, 04/26/20 13:07:00 EST, [...] by mouth once daily. polyethylene glycol 3350 95360 mg powder for oral solution (18 sources) [...] TID, # 15 tab(s), Refills(s) 1, Pharmacy: [facility]/pharmacy #[id number], 169, cm, 03/23/24 13:17:00 EST, Height/Length Dosing, 64.9, kg, 03/23/24 13:17:00 EST, Weight Dosing Start Date: 03/23/24 Status: Ordered Start: 09-24-2023 take 1 tablet by shahzad three times daily promethazine 25 mg Tab 25 mg = 1 tab(s), Oral, TID, # 15 tab(s), Refills(s) 0, Pharmacy: [facility]/pharmacy #[id number], 172, cm, 09/24/23 13:02:00 EDT, Height/Length Dosing, 61.2, kg, 09/24/23 13:02:00 EDT, Weight Dosing Start Date: 09/24/23 Status: Ordered Start: 12-03-2021 take 1 tablet by shahzad every four hours promethazine 25 mg Tab 25 mg = 1 tab(s), Oral, q4hr, # 12 tab(s), Refills(s) 0, Pharmacy: [facility]/pharmacy #[id number], 172.9, cm, 12/03/21 10:15:00 EDT, Height/Length Dosing, 46.2, kg, 12/03/21 10:15:00 EDT, Weight Dosing Start Date: 12/03/21 Status: Ordered Start: 12-03-2021 Phenergan 25 m g Supp 25 mg = 1 supp, Rectal, q6hr, PRN as needed for nausea, Insert one per rectum every six hours as needed for nausea and vomiting, # 6 EA, Refills(s) 0, Pharmacy: [facility]/pharmacy #[id number], 172.9, cm, 12/03/21 10:15:00 EDT, [...] day(s), # 56 tab(s), Refills(s) 0, [id number], 169, cm, 02/21/24 8:47:00 EST, Height/Length [...] Daily, # 4 gm, Refills(s) 11, Pharmacy: [facility]/pharmacy #[id number], 169.7, cm, 11/26/23 15:32:00 EDT, [...] TID, # 15 tab(s), Refills(s) 0, Pharmacy: [facility]/pharmacy #[id number], 172, cm, 09/24/23 13:02:00 EDT, Height/Length Dosing, 61.2, kg, 09/24/23 13:02:00 EDT, Weight Dosing Start Date: 09/24/23 Status: Ordered Zofran ODT 8 mg Tab-Dis (5 sources) Start: 03-23-2024 take 1 tablet under the tongue every eight hours as needed for nausea Zofran ODT 8 mg Tab-Dis 8 mg = 1 tab(s), SubLingual, q8hr, PRN Nausea/Vomiting, # 24 tab(s), Refills(s) 0, Pharmacy: [facility]/pharmacy #[id number], 169, cm, 03/23/24 13:17:00 EST, Height/Length Dosing, 64.9, kg, 03/23/24 13:17:00 EST, Weight Dosing Start Date: 03/23/24 Status: Ordered Start: 02-12-2024 take 1 tablet under the tongue every eight hours as needed for nausea Zofran ODT 8 mg Tab-Dis 8 mg = 1 tab(s), SubLingual, q8hr, PRN Nausea/Vomiting, # 24 tab(s), Refills(s) 0, [id number], 169, cm, 01/16/24 10:14:00 EDT, Height/Length Dosing, 63.9, kg, 01/16/24 10:14:00 EDT, Weight Dosing Start Date: 02/12/24 Status: Ordered Start: 01-23-2024 take 1 tablet under the tongue every eight hours as needed for nausea Zofran ODT 8 mg Tab-Dis 8 mg = 1 tab(s), SubLingual, q8hr, PRN Nausea/Vomiting, # 24 tab(s), Refills(s) 0, [id number], 169, cm, 01/16/24 10:14:00 EDT, Height/Length [...] sources) H/O: high risk medication; Translations: [Other rodent exterminator (current) drug therapy] Episodic Other and [...] [Urinary tract infection, site not specified] Onset: Episodic Past or Other Problems Problem Classification [...] Reference Range Facility Ambulatory Visit Summaryon 0 05-12-2024 Ambulatory Visit Summary Ambulatory Visit Summary SAI PINEDA :1970 Visit Date:05/12/2024 Ambulatory Visit Instructions Your Diagnosis BMI 23.0-23.9, adult Former smoker Your Care Team Attending Physician - Lala Horner Primary Care Physician - Lala Horner This Is Your Medications List albuterol (Ventolin HFA 90 mcg/inh Aerosol) albuterol (albuterol 0.083% Inh Misty 3 mL) albuterol (albuterol 0.083% Inh Misty 3 mL) amitriptyline (Elavil 25 mg Tab) clonidine (cloNIDine 0.2 mg Tab) colestipol (colestipol 1 g Tab) hydrOXYzine (hydrOXYzine hydrochloride 50 mg oral tablet) lamotrigine (lamotrigine 25 mg Tab) mirtazapine (mirtazapine 7.5 mg oral tablet) omeprazole (omeprazole 20 mg Cap-DR) ondansetron (ondansetron 4 mg Dis Tab) promethazine (promethazine 25 mg Tab) tiotropium (Spiriva Respimat 60 ACT 2.5 mcg/inh inhalation aerosol) Procedures Performed Esophagogastroduodenoscopy (02/25/2024), Colonoscopy (05/08/2019), EGD - Esophagogastroduodenoscopy (05/08/2019), CT - Computerized tomography (01/18/2019), Echocardiogram (11/14/2016), Cardiovascular stress testing (11/01/2016), Appendectomy, delivery, Cholecystectomy, Foot repair, Oral surgery, Total hysterectomy. Discharge Vitals Temperature (Tympanic) 36.2 ???C Heart Rate (Peripheral) 102 Respiratory Rate 22 Blood Pressure 128/94 Height 169 cm Height 67 in Weight 68 kg Weight 149.914 lb BMI 23.81 Medications What How Much When Why Instructions Changed albuterol (albuterol 0.083% Inh Misty 3 mL) 3 Milliliter Inhalation Every 6 hours as needed for for wheezing BMI 23.0-23.9, adult Former smoker Pickup at [facility]/pharmacy #[id number] Changed albuterol (albuterol 0.083% Inh Misty 3 mL) 3 Milliliter Inhalation Every 6 hours Q6H and PRN Changed albuterol (Ventolin HFA 90 mcg/ inh Aerosol) 2 Puffs Inhalation Every 4 hours as needed for for wheezing Unchanged amitriptyline (Elavil 25 mg Tab) 1 Tablets By Mouth Once a day (at bedtime) Nausea and vomiting Epigastric pain Chronic diarrhea History of colon polyps Schatzki's ring Gastropathy Tetrahydrocannabinol (THC) dependence Unchanged clonidine (cloNIDine 0.2 mg Tab) 1 [...] 6 hours as needed for Nausea/Vomiting Unchanged promethazine (promethazine 25 mg Tab) 1 Tablets By Mouth 3 times a day Unchanged tiotropium (Spiriva Respimat 60 ACT 2.5 mcg/ inh inhalation aerosol) 2 Inhalation Inhalation Every day Pharmacy Information [facility]/pharmacy #[id number]: [address] [place], [place] [id number] [phone] Allergies No Known Allergies Problems Ongoing - [...] vomiting S/P cholecystectomy Schatzki's ring Smoker Smoker Tetrahydrocannabinol (THC) dependence Underweight due to inadequate caloric intake Vomiting [...] for choosing us for your care. Normal [facility] Family Medicine Office/Clini c Noteon 05-12-2024 Family Medicine Office/Clinic Note Family Medicine Office/Clinic Note HPI Staff Sai is a 53 year old female presenting for TCM follow up TCM: Hospital: [facility] Admission date: 05/05/24 Discharge date: 05/08/24 Symptoms the patient presented with: SOB Current concerns: pt started on oxygen, steroids, ATB currently right now on 3lpm Pt does have appointment a 11 with psychiatrist History of Present Illness pt presents today for hospital follow up. COPD exaceration Review of Systems PHQ Score Initial Depression Screen Score: 1 SCORE Physical Exam Vitals & Measurements T: 36.2 ???C(Tympanic) HR: 102(Peripheral) RR: 22 BP: 128/94 SpO2: 92% HT: 67 in HT: 169 cm WT: 68 kg WT: 149.914 lb BMI: 23.81 General: alert, no acute distress ENMT: oral mucosa moist, no pharyngeal erythema or exudate Cardiovascular: regular rate and rhythm, normal peripheral perfusion Respiratory: Lungs CTA, respirations non labored Extremities: no deformity, no trauma Neurological: oriented x 4, LOC appropriate for age, CN II-XII intact, motor strength equal & normal bilaterally, speech normal portable O2 Assessment/Plan 1. COPD with exacerbation (J44.1: Chronic obstructive pulmonary disease with (acute) exacerbation) pt presents today for hospital follow up for COPD exacerbation. Is on portable O2 via nasal cannula. Is feeling better but still has productive cough. pt will continue oral steroids. we provided her with a nebulizer from office today and will send in albuterol for nebulizer. all questions answered. RTC 1 month 2. BMI 23.0-23.9, adult (Z68.23: Body mass index [BMI] 23.0-23.9, adult) BMI education given Ordered: albuterol, 2.5 mg, 3 mL, Inhalation, q6hr for wheezing, 60 EA, Refill(s) 1, [facility]/pharmacy #[id number], 169, cm, 05/12/24 10:51:00 EST, Height/Length Dosing, 68, kg, 05/12/24 10:51:00 EST, Weight Dosing 3. Former smoker (Z87.891: Personal history of nicotine dependence) continue not smoking Ordered: albuterol, 2.5 mg, 3 mL, Inhalation, q6hr for wheezing, 60 EA, Refill(s) 1, [facility]/pharmacy #[id number], 169, cm, 05/12/24 10:51:00 EST, Height/Length Dosing, 68, kg, 05/12/24 10:51:00 EST, Weight Dosing Orders: ondansetron, See Instructions, DISSOLVE 1 TABLET ON THE TONGUE EVERY 8 HOURS NEEDED FOR NAUSEA AND VOMITING, # 24 tab(s), Refills(s) 0, Pharmacy: [facility]/pharmacy #[id number], 169, cm, 02/18/24 11:55:00 EST, Height/Length Dosing, 61.8, kg, 02/18/24 11:55:00 EST, Weight D... promethazine, See Instructions, TAKE 1 TABLET BY MOUTH THREE TIMES A DAY, # 30 tab(s), Refills(s) 1, Pharmacy: [facility]/pharmacy #[id number], 169, cm, 02/18/24 11:55:00 EST, Height/Length Dosing, 61.8, kg, 02/18/24 11:55:00 EST, Weight Dosing promethazine, 25 mg = 1 tab(s), Oral, TID, # 15 tab(s), Refills(s) 0, Pharmacy: [facility]/pharmacy #[id number], 169, cm, 01/16/24 10:14:00 EDT, Height/Length Dosing, 63.9, kg, 01/16/24 10:14:00 EDT, Weight Dosing Follow-up No qualifying data available Problem List/Past Medical History Ongoing Apnea, sleep Bipolar 1 disorder, mixed, moderate BMI 21.0-21.9, adult Chronic diarrhea Chronic GERD Chronic obstructive pulmonary disease (COPD) Chronic post-traumatic stress disorder (PTSD) COPD - Chronic obstructive pulmonary disease COPD with exacerbation COPD without exacerbation Diarrhea Dietary counseling Epigastric pain Establishing care with new doctor, encounter for Exercise counseling MOON (generalized anxiety disorder) Gastropathy History of abdominal surgery History of colon polyps Hypotension Malnutrition Maternal family history of dementia Memory loss Nausea and vomiting S/P cholecystectomy Schatzki's ring Smoker Smoker Tetrahydrocannabinol (THC) dependence Underweight due to inadequate caloric intake Vomiting Historical Alcoholism Stool incontinence Unspecified fracture of left foot, subsequent encounter for fracture with routine healing Procedure/Surgical History Esophagogastroduodenoscopy (02/25/2024), Colonoscopy (05/08/2019), EGD - Esophagogastroduodenoscopy (05/08/2019), CT - Computerized tomography (01/18/2019), Echocardiogram (11/14/2016), Cardiovascular stress testing (11/01/2016), Appendectomy, delivery, Cholecystectomy, Foot repair, Oral surgery, Total hysterectomy. Medications albuterol 0.083% Inh Misty 3 mL, 2.5 mg= 3 mL, Inhalation, q6hr, PRN, 1 refills albuterol 0.083% Inh Misty 3 mL, 2.5 mg= 3 mL, Inhalation, q6hr cloNIDine 0.2 mg Tab, 0.2 mg= 1 tab(s), Oral, Bedtime, 1 refills colestipol 1 g Tab, 2 gm= 2 tab(s), Oral, BID, 1 refills Elavil 25 mg Tab, 25 mg= 1 tab(s), Oral, Once a day (at bedtime), 5 refills hydrOXYzine hydrochloride 50 mg oral tablet, 50 mg= 1 tab(s), Oral, TID, PRN lamotrigine 25 mg Tab, See Instructions mirtazapine 7.5 mg oral tablet, 7.5 mg= 1 tab(s), Oral, Bedtime omeprazole 20 mg Cap-DR, See Instructions ondansetron 4 mg Dis Tab, 4 mg= 1 tab(s), Oral, q6hr, PRN promethazine 25 mg Tab, 25 mg= 1 tab(s), Oral, TID, 1 refills Spiriva Respimat 60 ACT 2.5 mcg/inh in (more content not included)... Normal [facility] Comment on above: Result Comment: Elec tronically Signed By: Lala Horner\.br\Date and Time Signed: 05/12/24 11:27 EST Ambulatory Visit Summaryon 0 03-23-2024 Ambulatory Visit Summary Ambulatory Visit Summary SAI PINEDA :1970 Visit Date:03/23/2024 Ambulatory Visit Instructions Your Diagnosis Nausea and vomiting Epigastric pain Chronic diarrhea History of colon polyps Schatzki's ring Gastropathy Tetrahydrocannabinol (THC) dependence Your Care Team Attending Physician - Sandoval [...] Tetrahydrocannabinol (THC) dependence Refills: 5 Pickup at [facility]/pharmacy #[id number] Unchanged albuterol (albuterol 0.083% Inh Misty 3 [...] ACT 2 (more content not included)... Normal [facility] Gastroenterology Office/Clin ic Noteon 03-23-2024 Gastroenterology [...] bedtime), # 30 tab(s), Refills(s) 5, [id number], 169, cm, 03/23/24 13:17:00 EST, Height/Length Dosing, 64.9, kg, 03/23/24 13:17:00 EST, Weight Dosing 2. Epigastric pain (R10.13: Epigastric pain) Ordered: amitriptyline, 25 mg = 1 tab(s), Oral, Once a day (at bedtime), # 30 tab(s), Refills(s) 5, [id number], 169, cm, 03/23/24 13:17:00 EST, Height/Length Dosing, 64.9, kg, 03/23/24 13:17:00 EST, Weight Dosing 3. Chronic diarrhea (K52.9: Noninfective gastroenteritis and colitis, unspecified) Ordered: amitriptyline, 25 mg = 1 tab(s), Oral, Once a day (at bedtime), # 30 tab(s), Refills(s) 5, [id number], 169, cm, 03/23/24 13:17:00 EST, Height/Length Dosing, 64.9, kg, 03/23/24 13:17:00 EST, Weight Dosing 4. History of colon polyps (Z86.0100: Personal history of colon polyps, unspecified) Ordered: amitriptyline, 25 mg = 1 tab(s), Oral, Once a day (at bedtime), # 30 tab(s), Refills(s) 5, [id number], 169, cm, 03/23/24 13:17:00 EST, Height/Length Dosing, 64.9, kg, 03/23/24 13:17:00 EST, Weight Dosing 5. Schatzki's ring (K22.2: Esophageal obstruction) Ordered: amitriptyline, 25 mg = 1 tab(s), Oral, Once a day (at bedtime), # 30 tab(s), Refills(s) 5, Pharmacy: [facility]/pharmacy #[id number], 169, cm, 03/23/24 13:17:00 EST, Height/Length Dosing, 64.9, kg, 03/23/24 13:17:00 EST, Weight Dosing 6. Gastropathy (K31.9: Disease of stomach and duodenum, unspecified) Ordered: amitriptyline, 25 mg = 1 tab(s), Oral, Once a day (at bedtime), # 30 tab(s), Refills(s) 5, Pharmacy: [facility]/pharmacy #[id number], 169, cm, 03/23/24 13:17:00 EST, Height/Length Dosing, 64.9, kg, 03/23/24 13:17:00 EST, Weight Dosing 7. Tetrahydr (more content not included)... Normal [facility] Comment on above: Result Comment: Elec tronically Signed By: Butch SANDOVAL, Sandoval Frost\.br\Date and Time Signed: 03/23/24 13:45 EST Urine Cultureon 03-15-2024 Bacteria identified Cx Nom (U) 50,000 colonies/ml mixed bacterial skin contaminants including mixed gram negative bacilli - 2 Days PERFORMED BY: [place] [address] PATHOLOGIST [employer] OPERATORS SUPERVISOR HARRIS CUELLAR M.D. Normal [facility] Comment on above: Performed By: #### C UU #### [address] Surgical Pathology Reporton 03-02-2024 [place] [address]- Surgical Pathology Report Collected Date/Time: 02/25/2024 10:41 [...] respectively. Entire specimen submitted in one cassette. () [facility] Microscopic Description Microscopic examination performed unless [...] characteristics were determined by the [facility] Surgical Pathology. They have not been cleared or approved by the US Food and Drug Administration. The FDA has determined that such clearance or approval is not necessary. These tests are used for clinical purposes. They should not be regarded as investigational or for research. Appropriate positive and negative controls are performed and are acceptable. [facility] Comment on above: Performed By: #### [id number] #### [facility] [address] [place] [address] Main OR Intraoperative Recor don 02-27-2024 Main OR Intraoperative Record Main OR Intraoperative Record IntraOp Document Type FT Summary Primary Physician: Sanodval Rae MD Finalized Date/Time: 02/27/24 07:51:23 Pt. Name: SAI PINEDA Domo SolomonB./Sex: 1970 Female Med Rec #: [id number] Physician: Sandoval Rae MD Financial #: [id number] Pt. Type: O Room/Bed: / Admit/Disch: 02/25/24 [...] 1 Entry 2 Entry 3 Case Attendee Orlando Gordon CRNA, MD, Sandoval Allen RN, Chucho Calderon Role Performed R D MANAGER Surgeon - Primary Purchasing Assistant - Primary Time In 02/25/24 10:32:00 02/25/24 10:32:00 02/25/24 10:32:00 Time Out 02/25/24 10:50:00 02/25/24 10:50:00 02/25/24 10:50:00 Procedure EGD(.) EGD(.) EGD(.) Comments Dr. Rivas supervising case Last Modified By: Chucho Allen RN RN, Chucho Allen RN, Chucho Calderon 02/25/24 10:50:45 02/25/24 10:50:45 02/25/24 10:50:45 Entry [...] Chucho Allen RN, Mouchli MD, Sandoval Frost, [facility], Luis Manuel Jacob Kirstyn K Time Out [...] Primary Procedure Yes Primary Surgeon Butch SANDOVAL, Sandvoal Frost Start 02/25/24 10:36:00 Stop 02/25/24 10:46:00 [...] Yes Le (more content not included)... Normal [facility] Discharge Instructionson Discharge Instructions Discharge Instructions [...] Vomiting Historical (more content not included)... Normal [facility] Comment on above: Result Comment: [...] Diagnosis: Nausea, vomiting, and epigastric pain -EGD [facility] Main OR PACU II Recordon Main OR PACU II Record Main OR PACU II Record PACU Phase II Document Type FT Summary Primary Physician: Sandoval Rae MD Finalized Date/Time: 02/25/24 11:30:19 Pt. Name: SAI PINEDA /Sex: 1970 Female Med Rec #: [id number] Physician: Sandoval Rae MD Financial #: [id number] Pt. Type: O Room/Bed: / Admit/Disch: 02/25/24 [...] Signed By: Christin Hensley I 02/25/24 11:30 [facility] Main OR Preoperative Recordo n 02-25-2024 Main OR Preoperative Record Main OR Preoperative Record Holding Area Document Type FT Summary Primary Physician: Sandoval Rae MD Finalized Date/Time: 02/25/24 09:16:52 Pt. Name: SAI PINEDA/Sex: 1970 Female Med Rec #: [id number] Physician: Sandoval Rae MD Financial #: [id number] Pt. Type: O Room/Bed: / Admit/Disch: 02/25/24 [...] By: Mely Montilla RN 02/25/24 09:[address] [facility] Operative Reporton Operative Report Operative Report [...] day(s), # 56 tab(s), Refills(s) 0, [id number], 169, cm, 02/21/24 8:47:00 EST, Height/Length Dosing, 62.2, kg, 02/21/24 8:47:00 EST, Weight Dosing Questran 4 g/9 g oral powder: = 1 packet(s), Oral, BID, # 60 EA, Refills(s) 2, Pharmacy: [facility]/pharmacy #[id number], 169, cm, 01/16/24 10:14:00 EDT, Height/Length Dosing, 63.9, kg, 01/16/24 10:14:00 EDT, Weight Dosing Spiriva Respimat 60 ACT 2.5 mcg/inh inhalation aerosol: = 2 inh, Inhalation, Daily, # 4 gm, Refills(s) 11, [id number], 169.7, cm, 11/26/23 15:32:00 EDT, Height/Length Dosing, 62.1, kg, 11/26/23 15:32:00 EDT, Weight Dosing Zofran 4 mg Tab: 4 mg = 1 tab(s), Oral, q8hr, PRN Nausea, # 10 tab(s), Refills(s) 0, [id number], 173, cm, 04/26/20 13:07:00 EST, Height/Length Dosing, 52.8, kg, 04/26/20 13:07:00 EST, Weight Dosing Zofran ODT 4 mg Tab-Dis: 4 mg = 1 tab(s), Oral, TID, # 15 tab(s), Refills(s) 0, [id number], 172, cm, 09/24/23 13:02:00 EDT, Height/Length Dosing, 61.2, kg, 09/24/23 13:02:00 EDT, Weight Dosing Zofran ODT 8 mg Tab-Dis: 8 mg = 1 tab(s), SubLingual, q8hr, PRN Nausea/Vomiting, # 24 tab(s), Refills(s) 0, [id number], 169, cm, 01/16/24 10:14:00 EDT, Height/Length Dosing, 63.9, kg, 01/16/24 10:14:00 EDT, Weight Dosing cloNIDine 0.2 mg Tab: 0.2 mg = 1 tab(s), Oral, Bedtime, # 30 tab(s), Refills(s) 1, [id number], 173, cm, 05/24/20 14:42:00 EST, Height/Length Dosing, 50.1, kg, 05/24/20 14:42:00 EST, Weight Dosing colestipol 1 g Tab: 2 gm = 2 tab(s), Oral, BID, with a full glass of water, # 120 tab(s), Refills(s) 1, [id number], 169, cm, 01/16/24 10:14:00 EDT, Height/Length Dosing, 63.9, kg, 01/16/24 10:14:00 EDT, Weight Dosing hydrOXYzine hydrochloride 50 mg oral tablet: 50 mg = 1 tab(s), Oral, TID, PRN as needed for anxiety, # 30 tab(s), Refills(s) 0, [id number], 173, cm, 04/26/20 13:07:00 EST, Height/Length Dosing, 52.8, kg, 04/26/20 13:07:00 EST, Weight Dosing lamotrigine 25 mg Tab: See Instructions, TAKE 1 TABLET BY MOUTH EVERY DAY IN THE AFTERNOON, # 30 tab(s), Refills(s) 0, Pharmacy: [id number], 169.7, cm, 11/26/23 15:32:00 EDT, Height/Length Dosing, 62.1, kg, 11/26/23 15:32:00 EDT, Weight Dosing mirtazapine 7.5 mg oral tablet: 7.5 mg = 1 tab(s), Oral, Bedtime, # 30 tab(s), Refills(s) 0, [id number], 169.7, cm, 10/03/23 9:38:00 EDT, Height/Length Dosing, 62.5, kg, 10/03/23 9:38:00 EDT, Weight Dosing omeprazole 20 mg Cap-DR: See Instructions, TAKE 1 CAPSULE BY MOUTH EVERY DAY, # 30 cap(s), Refills(s) 0, Pharmacy: [facility] [id number], 169, cm, 02/21/24 8:47:00 EST, Height/Length Dosing, 62.2, kg, 02/21/24 8:47:00 EST, Weight Dosing ondansetron 4 mg Dis Tab: 4 mg = 1 tab(s), Oral, q6hr, PRN Nausea/Vomiting, # 30 tab(s), Refills(s) 0, [id number], 169.7, cm, 11/26/23 15:32:00 EDT, Height/Length Dosing, 62.1, kg, 11/26/23 15:32:00 EDT, Weight Dosing ondansetron 8 mg Dis Tab: See Instructions, DISSOLVE 1 TABLET ON THE TONGUE EVERY 8 HOURS NEEDED FOR NAUSEA AND VOMITING, # 24 tab(s), Refills(s) 0, [id number], 169, cm, 02/18/24 11:55:00 EST, Height/Length Dosing, 61.8, kg, 02/18/24 11:55:00 EST, Weight D... promethazine 25 mg Tab: 25 mg = 1 tab(s), Oral, TID, # 15 tab(s), Refills(s) 0, [id number], 169, cm, 01/16/24 10:14:00 EDT, Height/Length Dosing, 63.9, kg, 01/16/24 10:14:00 EDT, Weight Dosing promethazine 25 mg Tab: See Instructions, TAKE 1 TABLET BY MOUTH THREE TIMES A DAY, # 30 tab(s), Refills(s) 1, Pharmacy: [facility]/pharmacy #[id number], 169, cm, 02/18/24 11:55:00 EST, Height/Length Dosing, 61.8, kg, 02/18/24 11:55:00 EST, Weight Dosing Documented Medications Documented Protonix 40 mg Tab-DR: Oral, 0 Refill(s), Refills(s) 0 Spiriva Respimat 10 ACT 2.5 mcg/inh inhalation aerosol: = 2 puff(s), Inhalation, Daily, Refi (more content not included)... Normal [facility] Comment on above: Result Comment: Elec tronically Signed By: Butch SANDOVAL, Sandoval Frost\.br\Date and Time Signed: 02/25/24 10:51 EST Other Comment: Linda mendosa Attachment - attachment storage system not supported [id number] Can be viewed in source systemMissing Attachment - attachment storage system not supported [id number] Can be viewed in source systemMissing Attachment - attachment storage system not supported [id number] Can be viewed in source systemMissing Attachment - attachment storage system not supported [id number] Can be viewed in source systemMissfloating hospital for children Attachment - attachment storage system not supported [id number] Can be viewed in source systemMissing Attachment - attachment storage system not supported [id number] Can be viewed in source systemMissing Attachment - attachment storage system not supported [id number] Can be viewed in source systemMissing Attachment - attachment storage system not supported [id number] Can be viewed in source systemMissing Attachment - attachment storage system not supported [id number] Can be viewed in source systemMissing Attachment - attachment storage system not supported [id number] Can be viewed in source system Ambulatory [...] aerosol) (more content not included)... Normal [facility] Gastroenterology Office/Clin ic Noteon 02-21-2024 Gastroenterology Office/Clinic [...] to discuss capsule. (Had one completed at [facility] 2021)- results below Last visit w/ Dr Rae History of Present Illness pt with weight loss, throw up, and diarrhea capsule endoscopy done at [facility] and was found to have [...] clips were successfully placed (MR conditional). 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 There was no bleeding at the end of the maneuver. Exam of the jejunum was otherwise normal. Impression: - Atrophic mucosa. - Jejunal polyp(s). Resected a (more content not included)... Normal [facility] Comment on above: Result Comment: Elec tronically Signed By: Butch SANDOVAL, Sandoval Frost\.br\Date and Time Signed: 02/21/24 09:10 EST Ambulatory Visit Summaryon 1 04-20-2023 Ambulatory Visit Summary Ambulatory Visit Summary PINEDA SAI Oliveros :1970 Visit Date:02/18/2024 Ambulatory Visit Instructions Your [...] NEEDED FOR NAUSEA AND VOMITING Pickup at [facility]/pharmacy #[id number] Unchanged ondansetron (Zofran 4 mg [...] MOUTH THREE TIMES A DAY Pickup at [facility]/pharmacy #6177 [id number] [address] [place], [place] [phone] Allergies No Known Allergies Problems Ongoing - [...] history of (more content not included)... Normal [facility] Family Medicine Office/Clini c Noteon 02-18-2024 Family Medicine Office/Clinic Note Family Medicine Office/Clinic Note Chief Complaint N&V & Diarrhea HPI Staff Sai is a 53 year old female presenting with diarrhea, vomiting. AMILCAR 11/27/23 pt here for the same reason. Sent home with stool sample supplies. Pt did see [facility] 01/16/24 for diarrhea & N&V. Tx'd w/[facility] did order CTE, however pt no [...] VOMITING, # 24 tab(s), Refills(s) 0, Pharmacy: [facility]/pharmacy #[id number], 169, cm, 02/18/24 11:55:00 EST, Height/Length Dosing, 61.8, kg, 02/18/24 11:55:00 EST, Weight D... promethazine, See Instructions, TAKE 1 TABLET BY MOUTH THREE TIMES A DAY, # 30 tab(s), Refills(s) 1, Pharmacy: [facility]/pharmacy #6177, 169, cm, 02/18/24 11:55:00 EST, Height/Length [...] Esophagogastroduodenoscopy (04/19 (more content not included)... Normal [facility] Comment on above: Result Comment: Elec [...] start: Years ago. Had capsule done at [facility] and surgery. Dr Tiffani Morales. [...] up, and diarrhea capsule endoscopy done at [facility] and was found to have [...] Oral, TID, (more content not included)... Normal [facility] Comment on above: Result Comment: Elec [...] AFTERNOON, # 30 tab(s), Refills(s) 0, [id number], 169.7, cm, 10/03/23 9:38:00 EDT, Height/Length Dosing, 62.5, kg, 10/03/23 9:38:00 EDT, Weight Dosing lamotrigine, See Instructions, TAKE 1 TABLET EVERY MORNING, # 30 tab(s), Refills(s) 0, [id number], 169.7, cm, 10/03/23 9:38:00 EDT, Height/Length Dosing, 62.5, kg, 10/03/23 9:38:00 EDT, Weight Dosing lamotrigine, See Instructions, TAKE 1 TABLET BY MOUTH EVERY DAY IN THE AFTERNOON, # 30 tab(s), Refills(s) 0, Pharmacy: [facility] 8[facility], 169.7, cm, 11/26/23 15:32:00 EDT, Height/Length Dosing, 62.1, kg, 11/26/23 15:32:00 EDT, Weight Dosing nitrofurantoin, 100 mg = 1 cap(s), Oral, BID, X 7 day(s), # 14 cap(s), Refills(s) 0, Pharmacy: [facility]/pharmacy #[id number], 169.7, cm, 11/26/23 15:32:00 EDT, Height/Length Dosing, 62.1, kg, 09/10/24 15:32:00 EDT, Weight Dosing omeprazole, 20 mg = 1 cap(s), Oral, Daily, # 30 cap(s), Refills(s) 0, Pharmacy: [facility]/pharmacy #6177, 169.7, cm, 10/03/23 9:38:00 EDT, Height/Length Dosing, 62.5, kg, 10/03/23 9:38:00 EDT, Weight Dosing omeprazole, See Instructions, TAKE 1 CAPSULE BY MOUTH EVERY DAY, # 30 cap(s), Refills(s) 0, Pharmacy: [facility] 93039, 169.7, cm, 11/26/23 15:32:00 EDT, Height/Length Dosing, 62.1, kg, 11/26/23 15:32:00 EDT, Weight Dosing tiotropium, = 2 inh, Inhalation, Daily, # 4 gm, Refills(s) 11, [id number], 169.7, cm, 11/26/23 15:32:00 EDT, Height/Length [...] tab(s), Or (more content not included)... Normal [facility] Comment on above: Result Comment: Elec [...] hours as needed for Nausea/Vomiting Pickup at [facility]/pharmacy #6177 Unchanged ondansetron (Zofran 4 mg [...] 2 Puffs Inhalation Every day Pharmacy Information [facility]/pharmacy #[id number]: [address] [place], [place] [phone] Allergies No Known Allergies Problems Ongoing - [...] for choosing us for your care. Normal [facility] ED Note-Physicianon 10-21-19 ED Note-Physician ED [...] NS 1000 ml Bolus, 1000 mL, IV [id number] [F] 25 mg + Sodium Chloride 0.9% [...] CHANCE SERRANO In 3 days 09/27/[address] [place] [id number] [id number] Conjur (1) Additional Instructions: Patient Education Urinary Tract [...] made to ensure accuracy, however, inadvertently computerized farm consultant mistakes may be present. Appropriate healthcare PPE [...] to inadequa (more content not included)... Normal [facility] Comment on above: Result Comment: Elec [...] visit: month or so ago Last provider: [facility] Any recent labs: IN ER 7 Health Maintenance UTD: Colonoscopy: several Mammogram: due [...] adult 10/11/19 (more content not included)... Normal [facility] Comment on above: Result Comment: Elec [...] was performed at: [facility], [address] [place] [address], [id number]- , [place], Normal [facility] Comment on above: Performed By: #### 2 [id number] ####[facility] [id number] [place] [address] CHEMISTRYOrdered By: SYSTEM SYSTEM on 09-24-2023 Albumin [...] that meet specific criteria set forth by [facility]. Epithelial cells.squamous Auto (Urine sed) [...] SS Work Phone: Zi 05-08-[address] [facility] Telephone ([id number]) SAI PINEDA ([id number]) 1970 F Date Time Provider Department 05/08/22 TIFFANI MORALES GASTA5 During your visit today, we recorded the following information about you: Eva Chong 05/08/2022 10:45 AM Signed 05/08/22 Patient calling to see if Dr Morales will write her a script for Zofran nausea medication strips. [phone] Eva Covarrubias, RN 05/11/2022 10:05 AM Signed Called pt [...] Fully Assessed Reason for Visit: Patient Question [9724] Order(s):ondansetron orally disintegrating (ZOFRAN ODT) 8 mg [...] Status:Closed by TIFFANI MORALES on 05/10/22 Normal [facility] COPPER, SERUM or PLASMAon Copper, Serum 129 ug/dL Normal 80-158 [facility] Comment on above: Result Comment: Dete ction Limit = 5 Performed By: #### C OPPER #### [facility] [address] [place] [address] Dr. Prince Olivas FATTY ACID PROFILEon 023 a-Linolenic Acid C18:3w3 81 nmol/mL Normal 20-200 [facility] Comment on above: Performed By: #### Marine MA2 #### [facility] [address] [place] [address] Dr. Prince Olivas Arachidic Acid C20:0 31 nmol/mL Normal 8-43 [facility] Comment on above: Performed By: #### Marine MA2 #### [facility] [address] [place] [address] Dr. Prince Olivas Arachidonic Acid, C20:4w6 943 nmol/mL Normal 310-1420 [facility] Comment on above: Performed By: #### Marine MA2 #### [facility] [address] [address] [address] Prince Olivas DHA, C22:6w3 85 nmol/mL Normal 45-365 [facility] Comment on above: Performed By: #### Marine MA2 #### [facility] [address] [address] [address] Prince Olivas Docosenoic Acid C22:1 5 nmol/mL Normal 1-10 [facility] Comment on above: Performed By: #### Marine MA2 #### [facility] [address] [address] [address] Prince Olivas DPA, C22:5w3 58 nmol/mL Normal 13-75 [facility] Comment on above: Performed By: #### M MA2 #### [facility] [address] [address] [address] Prince Olivas DPA, C22:5w6 18 nmol/mL Normal 6-55 [facility] Comment on above: Performed By: #### M MA2 #### [facility] [address] [address] [address] Prince Olivas DTA, C22:4w6 28 nmol/mL Normal 10-40 [facility] Comment on above: Performed By: #### M MA2 #### [facility] [address] [address] [address] Prince Olivas EER Fatty Acid Profile, [facility] See Note Normal [facility] Comment on above: Result Comment: Auth orized individuals can access the [facility] Enhanced Report using the following link: [email or web address] Performed By: #### M MA2 #### [facility] [address] [address] [address] Prince Olivas EPA, C20:5w3 90 nmol/mL Normal 8-130 [facility] Comment on above: Performed By: #### Marine MA2 #### [facility] [address] [address] [address] Prince Olivas g-Linolenic Acid C18:3w6 139 nmol/mL Critically high 10-120 [facility] Comment on above: Performed By: #### Marine MA2 #### [facility] [address] [address] [address] Prince Olivas g-s-Sdlwixajk Acid C20:3w6 211 nmol/mL Normal 45-340 [facility] Comment on above: Performed By: #### Marine MA2 #### [facility] [address] [address] [address] Prince Olivas Hexadecenoic Acid C16:1w9 56 nmol/mL Normal 14-95 [facility] Comment on above: Performed By: #### Marine MA2 #### [facility] [address] [place] [address] Dr. Prince Olivas Image . Normal [facility] Comment on above: Performed By: #### M MA2 #### [facility] [address] [place] [address] Dr. Prince Onealp, Fatty Acids Profile SP See Note Normal [facility] Comment on above: Result Comment: Incr eased concentration of omega-6 gamma- linolenic acid, possibly reflecting dietary artifacts. INTERPRETIVE INFORMATION: Fatty Acids Profile, Essential Ser/Plas This test does not screen for disorders of peroxisomal biogenesis/function. This test was developed and its performance characteristics determined by [employer]. It has not been cleared or approved by the [place] Food and Drug Administration. This test was performed in a CLIA certified laboratory and is intended for clinical purposes. Performed By: #### M MA2 #### [facility] [address] [place] [address] Dr. Prince Olivas Lauric Acid C12:0 12 nmol/mL Normal 1-200 [facility] Comment on above: Performed By: #### M MA2 #### [facility] [address] [place] [address] Dr. Prince Olivas Linoleic Acid C18:2w6 3844 nmol/mL Normal 4074-0383 [facility] Comment on above: Performed By: #### Marine MA2 #### [facility] [address] [place] [address] Dr. Prince Olivas Tatum Acid C20:3w9 29 nmol/mL Normal 1-35 [facility] Comment on above: Performed By: #### Marine MA2 #### [facility] [address] [place] [address] [address] [address] Prince Olivas Myristic Acid C14:0 178 nmol/mL Normal 20-520 [facility] Comment on above: Performed By: #### M MA2 #### [facility] [address] [place] [address] Dr. Prince Olivas Nervonic Acid C24:1w9 138 nmol/mL Normal 35-145 [facility] Comment on above: Performed By: #### M MA2 #### [facility] [address] [address] [address] Prince Olivas Oleic Acid C18:1w9 2898 nmol/mL Normal 740-3900 [facility] Comment on above: Performed By: #### M MA2 #### [facility] [address] [address] [address] Prince Olivas Palmitic Acid C16:0 3316 nmol/mL Normal 5612-2286 [facility] Comment on above: Performed By: #### M MA2 #### [facility] [address] [address] [address] Prince Olivas Palmitoleic Acid C16:1w7 355 nmol/mL Normal 35-580 [facility] Comment on above: Performed By: #### M MA2 #### [facility] [address] [address] [address] Prince Olivas Stearic Acid C18:0 1072 nmol/mL Normal 280-1250 [facility] Comment on above: Performed By: #### M MA2 #### [facility] [address] [address] [address] Prince Olivas Total Fatty Acids 13.7 mmol/L Normal 4.5-15.0 [facility] Comment on above: Performed By: #### M MA2 #### [facility] [address] [address] [address] Prince Olivas Total Monounsaturated Acid 3.6 mmol/L Normal 0.9-4.7 [facility] Comment on above: Performed By: #### M MA2 #### [facility] [address] [address] [address] Prince Olivas Total Polyunsaturated Acid 5.5 mmol/L Normal 2.1-6.2 [facility] Comment on above: Performed By: #### M MA2 #### [facility] [address] [address] [address] Prince Olivas Total Saturated Acid 4.6 mmol/L Normal 1.5-5.3 [facility] Comment on above: Performed By: #### M MA2 #### [facility] [address] [address] [address] Prince Olivas Total w3 0.31 mmol/L Normal 0.12-0.55 [facility] Comment on above: Performed By: #### M MA2 #### [facility] [address] [address] [address] Prince Olivas Total w6 5.2 mmol/L Normal 1.8-5.7 [facility] Comment on above: Performed By: #### M MA2 #### [facility] [address] [address] [address] Prince Olivas Triene Tetraene Ratio 0.031 Normal 0.004-0.051 [facility] Comment on above: Performed By: #### M ADRIAN2 #### [facility] [address] [address] [address] Prince Olivas Vaccenic Acid C18:1w7 149 nmol/mL Normal 50-250 [facility] Comment on above: Performed By: #### M ADRIAN2 #### [facility] [address] [address] [address] Prince Olivas VITAMIN Aon 04-06-2022 Vitamin A 54.9 ug/dL Normal 20.1-62.0 [facility] Comment on above: Result Comment: Refe rence intervals for vitamin A determined from [facility] internal studies. Individuals with vitamin A less than 20 ug/dL are considered vitamin A deficient and those with serum concentrations less than 10 ug/dL are considered severely deficient. . This test was developed and its performance characteristics determined by [employer]. It has not been cleared or approved by the Food and Drug Administration. Performed By: #### M ADRIAN2 #### [facility] [address] [address] [address] Prince Olivas VITAMIN Luciano 04-06-2022 Vitamin E (Alpha T) 9.9 mg/L Normal 7.0-25.1 [facility] Comment on above: Performed By: #### S ELNIUM #### [facility] [address] [address] [address] Prince Olivas Vitamin E (Gamma T) 2.1 mg/L Normal 0.5-5.5 [facility] Comment on above: Result Comment: Refe rence intervals for alpha and gamma- tocopherol determined from National Health and Nutrition Examination Survey, 1997-9975. Individuals with alpha-tocopherol levels less than 5.0 mg/L are considered vitamin E deficient. Performed By: #### S ELNIUM #### [facility] [address] [address] [address] Prince Olivas ZINC SERUM OR PLASMAon 04-06 Zinc, Plasma or Serum 75 ug/dL Normal 44-115 [facility] Comment on above: Result Comment: Dete ction Limit = 5 Performed By: #### L IPID, CMP #### [facility] [address] [address] [address] Prince Pinon 04-05-2022 CNPN Telephone ([id number]) SAI PINEDA ([id number]) 1970 F Date Time Provider Department 04/05/22 [...] Status:Closed by TIFFANI MORALES on 04/05/22 [facility] METHYLMALONIC ACID (MMA)on 0 04-05-2022 Methylmalonic Acid, Serum 498 nmol/L Critically high 0-378 [facility] Comment on above: Performed By: #### M MA2 #### [facility] [address] [place] [address] Dr. Prince Olivas ANES POSTPROC EVALon 023 ANES POSTPROC EVAL HNO ID: [id number] Author: Altagracia Salvador MD Service: ? Author [...] Morales MD; Altagracia Salvador MD; Frederick Chaves APRN.R D MANAGER Responsible Provider: Altagracia Salvador MD Anesthesia Type: [...] with this procedure. Documented by Frederick Chaves APRN.R D MANAGER 04/04/2022 3:31 PM EST SIGNATURE: Altagracia Salvador MD PATIENT NAME: Sai Pineda DATE: April 04, 2022 TIME: 3:51 PM CSN: [id number] Normal [facility] ANES PRE-OPon 04-04-2022 ANES PRE-OP HNO ID: [id number] Author: Altagracia Salvador MD Service: ? Author Type: Anesthesiologist Type: Anesthesia Preprocedure Evaluation Filed: 04/04/2022 12:56 PM Note Text: ANESTHESIOLOGY DAY OF SURGERY NOTE : 1970 Procedure Information Date/Time: 04/04/22 1300 Scheduled providers: Tiffani Morales MD; Altagracia Salvador MD; Frederick Chaves APRN.R D MANAGER Procedure: ENTEROSCOPY Location: Gastroenterology Estimated body mass [...] April 04, 2022 TIME: 12:55 PM CSN: [id number] Normal [facility] ENTEROSCOPYon 04-04-2022 [facility] HISTORY PHYSICALon HISTORY PHYSICAL HNO ID: [id number] Author: Tiffani Morales MD Service: Gastroenterology Author [...] Sai Pineda DATE: 04/04/2022 TIME: 1302 Normal [facility] METHYLMALONIC ACID (MMA)on 0 04-04-2022 Methylmalonic Acid, Serum 397 nmol/L Critically high 0-378 [facility] Comment on above: Performed By: #### M WI2 #### [facility] [address] [place] [address] Dr. Prince Olivas NURSING PROGon 04-04-2022 NURSING PROG HNO ID: [id number] Author: Eduardo Harrington RN Service: Nursing Author [...] Electronically Signed By: Eduardo Harrington RN Normal [facility] NURSING PROG HNO ID: [id number] Author: Rima Kirk RN Service: Nursing Author [...] Rima Kirk RN In Department: GASTROENTEROLOGY Normal [facility] SELENIUM, PLASMAon 3 Selenium, Serum/Plasma 124 ug/L Normal 93-198 [facility] Comment on above: Performed By: #### S ELNIUM #### [facility] [address] [place] [address] Dr. Prince Olivas SURGICAL PATHOLOGYon 023 CASE REPORT Normal [facility] Comment on above: Order Comment: Speci men Type: TISSUE SPECIMENOrdering Facility: [facility] Address: [address] [place] [address] Result Comment: Surg ical Pathology Report Case: [id number] Authorizing Provider: Tiffani Morales MD Collected: 04/04/2022 02:57 PM Ordering Location: Gastroenterology Received: 04/04/2022 05:34 PM Pathologist: Gonzalo Lemons MD Specimen: JEJUNUM BIOPSY, polyp: r/o adenoma Performed By: #### S ####[facility] [id number] [address] OF [facility] FINAL DIAGNOSIS Normal [facility] Comment on above: Order Comment: Speci men Type: TISSUE SPECIMENOrdering Facility: [facility] Address: [address] [place] [address] Result Comment: Santosh leeunum, polyp, biopsy: - Small intestine with gastric heterotopia. - Negative for dysplasia and malignancy. Performed By: #### S ####[facility] [id number] [place] [address] [place] FINAL PERFORMING LAB Normal [facility] Comment on above: Order Comment: Speci men Type: TISSUE SPECIMENOrdering Facility: [facility] Address: [address] [place] [address] Result Comment: Diag nostic interpretation performed at [facility], [address] [place] [address] CLIA# [id number] Mine Foreman: Constantin Quevedo M.D. Performed By: #### S ####[facility] LABIA [id number] [address] OF [facility] GROSS DESCRIPTION Normal [facility] Comment on above: Order Comment: Speci men Type: TISSUE SPECIMENOrdering Facility: [facility] Address: [address] [place] [address] Result Comment: A. J EJUNUM BIOPSY Received in formalin is a segment of proctor polypoid tissue measuring 1.2 x 1.0 x 0.4 cm. No stalk is noted. The line of resection is noted. The specimen is bisected and totally submitted in formalin in one cassette. Gross examination performed at [facility], [address] [place] [address] MDM 04/04/2022 10:13 PM Performed By: #### S ####[facility] [id number] [address] [place] FOLATE, RBC AND SERUMon 03-18 Folate 7.5 ng/mL Normal >3.0 [facility] Comment on above: Result Comment: A se rum folate concentration of less than 3.1 ng/mL is considered to represent clinical deficiency. Performed By: #### L IPID, CMP #### [facility] [address] [address] [address] Prince Olivas Folate, Hemolysate 297.0 ng/mL Normal Not Estab. [facility] Comment on above: Performed By: #### L IPID, CMP #### [facility] [address] [place] [address] Dr. Prince Olivas Folate, RBC 721 ng/mL Normal >498 [facility] Comment on above: Performed By: #### L IPID, CMP #### [facility] [address] [place] [address] Dr. Prince Olivas Hematocrit (Bld) [Volume fraction] 41.2 % Normal 34.0-46.6 [facility] Comment on above: Performed By: #### L IPID, CMP #### [facility] [address] [place] [address] Dr. Prince Olivas CBC AUTO DIFFon 03-31-2022 BASO # 0.1 103/ul Normal 0.0-0.1 [facility] Comment on above: Performed By: #### L IPID, CMP #### [facility] [address] [place] [address] Dr. Prince Olivas Basophils/100 WBC (Bld) 0.6 % Normal 0.2-2.0 [facility] Comment on above: Performed By: #### L IPID, CMP #### [facility] [address] [place] [address] Dr. Prince Olivas EO # 0.2 103/ul Normal 0.0-0.7 [facility] Comment on above: Performed By: #### L IPID, CMP #### [facility] [address] [place] [address] Dr. Prince Olivas Eosinophils/100 WBC (Bld) 2.9 % Normal 0.9-7.0 [facility] Comment on above: Performed By: #### L IPID, CMP #### [facility] [address] [place] [address] Dr. Prince Olivas Erythrocyte distribution width (RBC) [Ratio] 13.2 % Normal 11.0-15.0 [facility] Comment on above: Performed By: #### L IPID, CMP #### [facility] [address] [place] [address] Dr. Prince Olivas Hematocrit (Bld) [Volume fraction] 41.1 % Normal 36.0-48.0 [facility] Comment on above: Performed By: #### L IPID, CMP #### [facility] [address] [place] [address] Dr. Prince Olivas Hemoglobin (Bld) [Mass/Vol] 13.6 g/dL Normal 12.0-16.0 [facility] Comment on above: Performed By: #### L IPID, CMP #### [facility] [address] [place] [address] Dr. Prince Olivas IG # 0.04 10e3/ul Critically high 0.00-0.03 [facility] Comment on above: Performed By: #### L IPID, CMP #### [facility] [address] [place] [address] Dr. Prince Olivas IG % 0.5 % Normal 0.0-0.5 [facility] Comment on above: Performed By: #### L IPID, CMP #### [facility] [address] [place] [address] Dr. Prince Olivas LYMPH # 2.5 103/ul Normal 1.2-3.8 [facility] Comment on above: Performed By: #### L IPID, CMP #### [facility] [address] [place] [address] Dr. Prince Olivas Lymphocytes/100 WBC (Bld) 31.5 % Normal 20.5-60.0 [facility] Comment on above: Performed By: #### L IPID, CMP #### [facility] [address] [place] [address] Dr. Prince Olivas MANUAL DIFF REQ NO Normal [facility] Comment on above: Performed By: #### L IPID, CMP #### [facility] [address] [place] [address] Dr. rPince Olivas MCH (RBC) [Entitic mass] 30.5 pg Normal 26.7-34.0 [facility] Comment on above: Performed By: #### L IPID, CMP #### [facility] [address] [address] [address] Prince Olivas MCHC (RBC) [Mass/Vol] 33.1 g/dL Normal 29.9-35.2 [facility] Comment on above: Performed By: #### L IPID, CMP #### [facility] [address] [place] [address] Dr. Prince Olivas MCV (RBC) [Entitic vol] 92.2 fL Normal 81.0-99.0 [facility] Comment on above: Performed By: #### L IPID, CMP #### [facility] [address] [place] [address] Dr. Prince Olivas MONO # 0.6 103/ul Normal 0.3-0.8 [facility] Comment on above: Performed By: #### L IPID, CMP #### [facility] [address] [place] [address] Dr. Prince Olivas Monocytes/100 WBC (Bld) 7.0 % Normal 1.7-12.0 [facility] Comment on above: Performed By: #### L IPID, CMP #### [facility] [address] [place] [address] Dr. Prince Olivas NEUT # 4.5 103/ul Normal 1.4-6.5 [facility] Comment on above: Performed By: #### L IPID, CMP #### [facility] [address] [place] [address] Dr. Prince Olivas Neutrophils/100 WBC (Bld) 57.5 % Normal 43.0-75.0 [facility] Comment on above: Performed By: #### L IPID, CMP #### [facility] [address] [place] [address] Dr. Prince Olivas Platelet mean volume (Bld) [Entitic vol] 11.5 fL Normal 9.5-13.5 [facility] Comment on above: Performed By: #### L IPID, CMP #### [facility] [address] [place] [address] Dr. Prince Olivas PLT 224 103/ul Normal 150-450 [facility] Comment on above: Performed By: #### L IPID, CMP #### [facility] [address] [place] [address] Dr. Prince Olivas RBC 4.46 106/ul Normal 4.20-5.40 [facility] Comment on above: Performed By: #### L IPID, CMP #### [facility] [address] [place] [address] Dr. Prince Olivas WBC 7.9 103/ul Normal 4.0-11.0 [facility] Comment on above: Performed By: #### L IPID, CMP #### [facility] [address] [place] [address] Dr. Prince Olivas CRPon 03-31-2022 CRP [Mass/Vol] mg/L Normal <=1.0 [facility] Comment on above: Performed By: #### C OPPER #### [facility] [address] [place] [address] Dr. Prince Olivas FERRITINon 03-31-2022 Ferritin [Mass/Vol] 99.0 ng/mL Normal 8.0-252.0 [facility] Comment on above: Performed By: #### F ERR, VITB12, VITAD, FETIBC #### [facility] [address] [place] [address] Dr. Prince Olivas IRON AND TIBCon 03-31-2022 % SATURATION 29.3 % Normal [facility] Comment on above: Performed By: #### F ERR, VITB12, VITAD, FETIBC #### [facility] [address] [place] [address] Dr. Prince Olivas Iron [Mass/Vol] 90.0 ug/dL Normal 50.0-170.0 [facility] Comment on above: Performed By: #### F ERR, VITB12, VITAD, FETIBC #### [facility] [address] [place] [address] Dr. Prince Olivas TIBC DIRECT 307.0 ug/dL Normal 250.0-450.0 [facility] Comment on above: Performed By: #### F ERR, VITB12, VITAD, FETIBC #### [facility] [address] [place] [address] Dr. Prince Olivas MAGNESIUMon 03-31-2022 Magnesium [Mass/Vol] 2.0 mg/dL Normal 1.8-2.4 [facility] Comment on above: Performed By: #### C OPPER #### [facility] [address] [place] [address] Dr. Prince Olivas PHOSPHORUSon 03-31-2022 Phosphate [Mass/Vol] 3.6 mg/dL Normal 2.6-4.7 [facility] Comment on above: Performed By: #### C OPPER #### [facility] [address] [place] [address] Dr. Prince Olivas PROF 14(COMP METB)on 023 Albumin [Mass/Vol] 3.9 g/dL Normal 3.4-5.0 [facility] Comment on above: Performed By: #### C OPPER #### [facility] [address] [place] [address] Dr. Prince Olivas Albumin/Globulin [Mass ratio] 1.3 {ratio} Normal [facility] Comment on above: Performed By: #### C OPPER #### [facility] [address] [place] [address] Dr. Prince Olivas ALP [Catalytic activity/Vol] 75 U/L Normal 46-116 [facility] Comment on above: Performed By: #### C OPPER #### [facility] [address] [place] [address] Dr. Prince Olivas ALT [Catalytic activity/Vol] 19 U/L Normal 14-59 [facility] Comment on above: Performed By: #### C OPPER #### [facility] [address] [place] [address] Dr. Prince Olivas Anion gap [Moles/Vol] 11.3 mmol/L Normal [facility] Comment on above: Performed By: #### C OPPER #### [facility] [address] [place] [address] Dr. Prince Olivas AST [Catalytic activity/Vol] 19 U/L Normal 15-37 [facility] Comment on above: Performed By: #### C OPPER #### [facility] [address] [address] [address] Prince Olivas Bilirubin [Mass/Vol] 0.3 mg/dL Normal 0.2-1.0 [facility] Comment on above: Performed By: #### C OPPER #### [facility] [address] [address] [address] Prince Olivas Calcium [Mass/Vol] 9.0 mg/dL Normal 8.5-10.1 [facility] Comment on above: Performed By: #### C OPPER #### [facility] [address] [address] [address] Prince Olivas Chloride [Moles/Vol] 105 mmol/L Normal 98-107 [facility] Comment on above: Performed By: #### C OPPER #### [facility] [address] [place] [address] Dr. Prince Olivas CO2 [Moles/Vol] 28.9 mmol/L Normal 21.0-32.0 [facility] Comment on above: Performed By: #### C OPPER #### [facility] [address] [place] [address] Dr. Pricne Olivas Creatinine [Mass/Vol] 0.79 mg/dL Normal 0.55-1.02 [facility] Comment on above: Performed By: #### C OPPER #### [facility] [address] [place] [address] Dr. Prince Olivas EGFR-AF AZERBAIJANI >60 Normal >=60 [facility] Comment on above: Performed By: #### C OPPER #### [facility] [address] [place] [address] Dr. Prince Olivas EGFR-NON AF AZERBAIJANI >60 Normal >=60 [facility] Comment on above: Performed By: #### C OPPER #### [facility] [address] [place] [address] Dr. Prince Olivas Globulin (S) [Mass/Vol] 3.0 g/dL Normal [facility] Comment on above: Performed By: #### C OPPER #### [facility] [address] [address] [address] Prince Olivas Glucose [Mass/Vol] 91 mg/dL Normal 74-106 [facility] Comment on above: Performed By: #### C OPPER #### [facility] [address] [address] [address] Prince Olivas Potassium [Moles/Vol] 4.2 mmol/L Normal 3.5-5.1 [facility] Comment on above: Performed By: #### C OPPER #### [facility] [address] [address] [address] Prince Olivas Protein [Mass/Vol] 6.9 g/dL Normal 6.4-8.2 [facility] Comment on above: Performed By: #### C OPPER #### [facility] [address] [address] [address] Prince Olivas Sodium [Moles/Vol] 141 mmol/L Normal 136-145 [facility] Comment on above: Performed By: #### C OPPER #### [facility] [address] [address] [address] Prince Olivas Urea nitrogen [Mass/Vol] 10.0 mg/dL Normal 7.0-18.0 [facility] Comment on above: Performed By: #### C OPPER #### [facility] [address] [address] [address] Prince Olivas Urea nitrogen/Creatinine [Mass ratio] 12.7 mg/mg Normal [facility] Comment on above: Performed By: #### C OPPER #### [facility] [address] [address] [address] Prince Olivas PROTIMEon 03-31-2022 INR Coag (PPP) [Relative time] 0.94 {INR} Normal [facility] Comment on above: Performed By: #### M MA2 #### [facility] [address] [address] [address] Prince Olivas INR GUIDELINES SEE BELOW Normal [facility] Comment on above: Result Comment: BRIANNA RED INR: 2.0 - 3.0 CONDITIONS NOT LISTED BELOW 2.5 - 3.5 FOR PROSTHETIC HEART VALVE REPLACEMENT 2.5 - 3.5 RECURRENT THROMBOSIS Performed By: #### M MA2 #### [facility] [address] [place] [address] Dr. Prince Olivas PT Coag (PPP) [Time] 10.0 s Normal 9.0-11.6 [facility] Comment on above: Performed By: #### M MA2 #### [facility] [address] [place] [address] Dr. Prince Olivas TRIGLYCERIDEon 03-31-2022 Triglyceride [Mass/Vol] 103 mg/dL Normal <=150 [facility] Comment on above: Performed By: #### C OPPER #### [facility] [address] [place] [address] Dr. Prince Olivas VITAMIN B12on 03-31-2022 Cobalamin (Vitamin B12) [Mass/Vol] 259.0 pg/mL Normal 193.0-986.0 [facility] Comment on above: Performed By: #### F ERR, VITB12, VITAD, FETIBC #### [facility] [address] [place] [address] Dr. Prince Olivas VITAMIN D 25 OHon 03-31-2022 VIT D 25-OH 49.0 ng/mL Normal [facility] Comment on above: Performed By: #### F ERR, VITB12, VITAD, FETIBC #### [facility] [address] [place] [address] Dr. Prince Olivas VIT D RANGES SEE BELOW Normal [facility] Comment on above: Result Comment: <20 ng/mL Vit D deficient 20 - <30 ng/mL Vit D insufficient 30 - 100 ng/mL Vit D sufficient >100 ng/mL Potential Toxicity Performed By: #### F ERR, VITB12, VITAD, FETIBC #### [facility] [address] [place] [address] Dr. Prince Olivas CBC AUTO DIFFon 03-28-2022 BASO # 0.1 103/ul Normal 0.0-0.1 [facility] Comment on above: Performed By: #### S ELNIUM #### [facility] [address] [place] [address] Dr. Prince Olivas Basophils/100 WBC (Bld) 0.6 % Normal 0.2-2.0 [facility] Comment on above: Performed By: #### S ELNIUM #### [facility] [address] [place] [address] Dr. Prince Olivas EO # 0.2 103/ul Normal 0.0-0.7 [facility] Comment on above: Performed By: #### S ELNIUM #### [facility] [address] [place] [address] Dr. Prince Olivas Eosinophils/100 WBC (Bld) 2.4 % Normal 0.9-7.0 [facility] Comment on above: Performed By: #### S ELNIUM #### [facility] [address] [place] [address] Dr. Prince Olivas Erythrocyte distribution width (RBC) [Ratio] 13.2 % Normal 11.0-15.0 [facility] Comment on above: Performed By: #### S ELNIUM #### [facility] [address] [place] [address] Dr. Prince Olivas Hematocrit (Bld) [Volume fraction] 44.3 % Normal 36.0-48.0 [facility] Comment on above: Performed By: #### S ELNIUM #### [facility] [address] [place] [address] Dr. Prince Olivas Hemoglobin (Bld) [Mass/Vol] 13.8 g/dL Normal 12.0-16.0 [facility] Comment on above: Performed By: #### S ELNIUM #### [facility] [address] [place] [address] Dr. Prince Olivas IG # 0.02 10e3/ul Normal 0.00-0.03 [facility] Comment on above: Performed By: #### S ELNIUM #### [facility] [address] [place] [address] Dr. Prince Olivas IG % 0.2 % Normal 0.0-0.5 [facility] Comment on above: Performed By: #### S ELNIUM #### [facility] [address] [address] [address] Prince Olivas LYMPH # 3.1 103/ul Normal 1.2-3.8 [facility] Comment on above: Performed By: #### S ELNIUM #### [facility] [address] [address] [address] Prince Olivas Lymphocytes/100 WBC (Bld) 34.8 % Normal 20.5-60.0 [facility] Comment on above: Performed By: #### S ELNIUM #### [facility] [address] [place] [address] Dr. Prince Olivas MANUAL DIFF REQ NO Normal [facility] Comment on above: Performed By: #### S ELNIUM #### [facility] [address] [place] [address] Dr. Prince Olivas MCH (RBC) [Entitic mass] 30.5 pg Normal 26.7-34.0 [facility] Comment on above: Performed By: #### S ELNIUM #### [facility] [address] [place] [address] Dr. Prince Olivas MCHC (RBC) [Mass/Vol] 31.2 g/dL Normal 29.9-35.2 [facility] [facility] Comment on above: Performed By: #### S ELNIUM #### [facility] [address] [place] [address] Dr. Prince Olivas MCV (RBC) [Entitic vol] 98.0 fL Normal 81.0-99.0 [facility] Comment on above: Performed By: #### S ELNIUM #### [facility] [address] [address] [address] Prince Olivas MONO # 0.5 103/ul Normal 0.3-0.8 [facility] Comment on above: Performed By: #### S ELNIUM #### [facility] [address] [place] [address] Dr. Prince Olivas Monocytes/100 WBC (Bld) 6.0 % Normal 1.7-12.0 [facility] Comment on above: Performed By: #### S ELNIUM #### [facility] [address] [address] [address] Prince Olivas NEUT # 5.0 103/ul Normal 1.4-6.5 [facility] Comment on above: Performed By: #### S ELNIUM #### [facility] [address] [address] [address] Prince Olivas Neutrophils/100 WBC (Bld) 56.0 % Normal 43.0-75.0 [facility] Comment on above: Performed By: #### S ELNIUM #### [facility] [address] [address] [address] Prince Olivas Platelet mean volume (Bld) [Entitic vol] 11.5 fL Normal 9.5-13.5 [facility] Comment on above: Performed By: #### S ELNIUM #### [facility] [address] [place] [address] Dr. Prince Olivas PLT 221 103/ul Normal 150-450 [facility] Comment on above: Performed By: #### S ELNIUM #### [facility] [address] [address] [address] Prince Olivas RBC 4.52 106/ul Normal 4.20-5.40 [facility] Comment on above: Performed By: #### S ELNIUM #### [facility] [address] [address] [address] Prince Olivas WBC 8.9 103/ul Normal 4.0-11.0 [facility] Comment on above: Performed By: #### S ELNIUM #### [facility] [address] [place] [address] Dr. Prince Pinon 03-28-2022 YAMILETH Telephone (JAMIE) SAI PINEDA ([id number]) 1970 F Date Time Provider Department 03/28/22 EDAURDO HARRINGTON During your visit today, we recorded the following information about you: Eduardo Harrington RN 03/28/2022 3:52 PM Signed Attempted to reach the patient at the contact number that they provided [phone] (home) . Unable to speak with patient so without identifying the patient the following information was left on their voice mail: Date of procedure, location and report time A message was left informing the patient/patient member services representative they must have a responsible adult [...] Number to call with questions or concerns [phone] Number to call to cancel their procedure [phone] Eduardo Harrington RN Allergies As of Date: 03/28/2022 (No Known Allergies) Date Reviewed: 01/01/2022 Reviewed by: Juan Carlos Saucedo LPN - Fully Assessed Reason for Visit: Appointment Confirmation [[id number]] Prescriptions as of 03/28/2022 - prochlorperazine (COMPAZINE) [...] Status:Closed by EDUARDO HARRINGTON on 03/28/22 Normal [facility] PROF 14(COMP METB)on 023 Albumin [Mass/Vol] 4.2 g/dL Normal 3.4-5.0 [facility] Comment on above: Performed By: #### L IPID, CMP #### [facility] [address] [place] [address] Dr. Prince Olivas Albumin/Globulin [Mass ratio] 1.4 {ratio} Normal [facility] Comment on above: Performed By: #### L IPID, CMP #### [facility] [address] [place] [address] Dr. Prince Olivas ALP [Catalytic activity/Vol] 86 U/L Normal 46-116 [facility] Comment on above: Performed By: #### L IPID, CMP #### [facility] [address] [address] [address] Prince Olivas ALT [Catalytic activity/Vol] 13 U/L Critically low 14-59 [facility] Comment on above: Performed By: #### L IPID, CMP #### [facility] [address] [address] [address] Prince Olivas Anion gap [Moles/Vol] 9.7 mmol/L Normal [facility] Comment on above: Performed By: #### L IPID, CMP #### [facility] [address] [address] [address] Prince Olivas AST [Catalytic activity/Vol] 15 U/L Normal 15-37 [facility] Comment on above: Performed By: #### L IPID, CMP #### [facility] [address] [place] [address] Dr. Prince Olivas Bilirubin [Mass/Vol] 0.2 mg/dL Normal 0.2-1.0 [facility] Comment on above: Performed By: #### L IPID, CMP #### [facility] [address] [place] [address] Dr. Prince Olivas Calcium [Mass/Vol] 9.2 mg/dL Normal 8.5-10.1 [facility] Comment on above: Performed By: #### L IPID, CMP #### [facility] [address] [place] [address] Dr. Prince Olivas Chloride [Moles/Vol] 102 mmol/L Normal 98-107 [facility] Comment on above: Performed By: #### L IPID, CMP #### [facility] [address] [place] [address] Dr. Prince Olivas CO2 [Moles/Vol] 28.9 mmol/L Normal 21.0-32.0 [facility] Comment on above: Performed By: #### L IPID, CMP #### [facility] [address] [place] [address] Dr. Prince Olivas Creatinine [Mass/Vol] 0.81 mg/dL Normal 0.55-1.02 [facility] Comment on above: Performed By: #### L IPID, CMP #### [facility] [address] [place] [address] Dr. Prince Olivas EGFR-AF AZERBAIJANI >60 Normal >=60 [facility] Comment on above: Performed By: #### L IPID, CMP #### [facility] [address] [place] [address] Dr. Prince Olivas EGFR-NON AF AZERBAIJANI >60 Normal >=60 [facility] Comment on above: Performed By: #### L IPID, CMP #### [facility] [address] [address] [address] Prince Olivas Globulin (S) [Mass/Vol] 3.1 g/dL Normal [facility] Comment on above: Performed By: #### L IPID, CMP #### [facility] [address] [place] [address] Dr. Prince Olivas Glucose [Mass/Vol] 74 mg/dL Normal 74-106 [facility] Comment on above: Performed By: #### L IPID, CMP #### [facility] [address] [place] [address] Dr. Prince Olivas Potassium [Moles/Vol] 4.1 mmol/L Normal 3.5-5.1 [facility] Comment on above: Performed By: #### L IPID, CMP #### [facility] [address] [place] [address] Dr. Prince Olivas Protein [Mass/Vol] 7.3 g/dL Normal 6.4-8.2 [facility] Comment on above: Performed By: #### L IPID, CMP #### [facility] [address] [place] [address] Dr. Prince Olivas Sodium [Moles/Vol] 138 mmol/L Normal 136-145 [facility] Comment on above: Performed By: #### L IPID, CMP #### [facility] [address] [place] [address] Dr. Prince Olivas Urea nitrogen [Mass/Vol] 11.0 mg/dL Normal 7.0-18.0 [facility] Comment on above: Performed By: #### L IPID, CMP #### [facility] [address] [place] [address] Dr. Prince Olivas Urea nitrogen/Creatinine [Mass ratio] 13.6 mg/mg Normal [facility] Comment on above: Performed By: #### L IPID, CMP #### [facility] [address] [place] [address] Dr. Prince Olivas TSHon 03-28-2022 TSH 0.948 uIU/mL Normal 0.358-3.740 [facility] Comment on above: Performed By: #### L IPID, CMP #### [facility] [address] [address] [address] Pirnce Olivas VIT B12 AND FOLATEon 023 Cobalamin (Vitamin B12) [Mass/Vol] 260.0 pg/mL Normal 193.0-986.0 [facility] Comment on above: Performed By: #### C OPPER #### [facility] [address] [address] [address] Prince Olivas FOLATE 7.90 ng/mL Critically low 8.60-58.90 [facility] Comment on above: Performed By: #### C OPPER #### [facility] [address] [address] [address] Prince Olivas NM GASTRIC EMPTYING SOLIDon 02-05-2022 NM GASTRIC EMPTYING SOLID * * *Final Report* * * DATE OF EXAM: Feb 05 2022 12:26PM [facility] 0017 - [place] GASTRIC EMPTYING SOLID / PROCEDURE REASON: Nausea [...] rate of gastric emptying of solid meal. Installer Apprentice: FAN Transcribe Date/Time: Feb 05 2022 1:36P Dictated by : SHER RODRIGUEZ MD This examination was interpreted and the report reviewed and electronically signed by: RENATO PATEL MD on Feb 05 2022 2:03PM EST [id number] [facility] (GAPRA3) SAI PINEDA ([id number]) 1970 F Date Time Provider Department 01/05/22 [...] Status:Closed by TIFFANI MORALES on 01/05/22 [facility] 01-03-2022 [facility] Tele[facility] (GASTMN) SAI PINEDA ([id number]) 1970 F Date Time Provider Department 01/03/22 ANASTASIYA MOSQUEDA GASTWV During your visit today, we recorded the following information about you: Anastasiya Mosqueda PA-C 01/03/2022 10:19 AM Signed EGD results discussed with patient as requested, pathology still pending. Will reach out to patient once resulted. Red flags for in person care discussed. GRECIA Castorena [facility] 01/05/2022 10:02 AM Signed Patient requests return call [phone] Elizabeth Jimenez [facility] Allergies As of Date: 01/03/2022 (No Known [...] Encounter Status:Closed by ANASTASIYA MOSQUEDA on [facility]03[facility]22 [facility] [facility] Telephone (DDQ) SAI PINEDA ([id number]) 1970 F Date Time Provider Department 01/02/22 ANASTASIYA MOSQUEDA DDQ During your visit today, we recorded the following information about you: Leydi Trejoleader 01/02/2022 8:52 AM Signed Patient called to [...] Encounter Status:Closed by LEYDI HUIZAR on 01/02/22 Normal [facility] ANES POSTPROC EVALon 022 ANES POSTPROC EVAL HNO ID: [id number] Author: Sher Hudson MD Service: ? Author [...] 18 01/01/22 1713 SpO2 95 % 01/01/22 165 Vitals shown include unvalidated device data. Post [...] January 01, 2022 TIME: 5:13 PM CSN: [id number] Normal [facility] ANES PRE-OPon 01-01-2022 ANES PRE-OP HNO ID: [id number] Author: Sher Hudson MD Service: ? Author Type: Anesthesiologist Type: Anesthesia Preprocedure Evaluation Filed: 01/01/2022 3:42 PM Note Text: ANESTHESIOLOGY DAY OF SURGERY NOTE : 1970 Procedure Information Date/Time: 01/01/22 1600 Scheduled providers: Tiffani Morales MD; Sher Hudson MD; Kirsten Dalton APRN.R D MANAGER Procedure: EGD DIAGNOSTIC Location: Gastroenterology Estimated body [...] (97.3 ?F) 01/01/22 153 SpO2 98 % 01/01/22 153 Outpatient Medications as of 01/01/2022 Medication Sig [...] January 01, 2022 TIME: 3:42 PM CSN: [id number] Normal [facility] EGD DIAGNOSTICon 01-01-2022 [facility] HISTORY PHYSICALon HISTORY PHYSICAL HNO ID: [id number] Author: Tiffani Morales MD Service: Gastroenterology Author [...] Sai Guerrero DATE: 01/01/2022 TIME: 1600 Normal [facility] NURSING PROGon 01-01-2022 NURSING PROG HNO ID: [id number] Author: Juan Carlos Saucedo LPN Service: ? [...] Electronically Signed By: Juan Carlos Saucedo LPN [facility] NURSING PROG HNO ID: [id number] Author: Rima Coleman RN Service: ? Author [...] Rima Coleman RN In Department: GASTROENTEROLOGY Normal [facility] SURGICAL PATHOLOGYon 01-01-2 022 CASE REPORT Normal [facility] Comment on above: Order Comment: Speci urbano Type: TISSUE SPECIMENOrdering Facility: [facility] Address: [address] [place], [place] [id number] Result Comment: Surg ica Pathology Report Case: [id number] Authorizing Provider: Tiffani Morales MD Collected: 01/01/2022 04:13 PM Ordering Location: Gastroenterology Received: 01/01/2022 08:38 PM Pathologist: Jyotsna Cartwright MD Specimens: A) - DUODENUM BIOPSY, r/o celiac B) - STOMACH BIOPSY, r/o h. pylori C) - STOMACH (GASTRIC) POLYP BIOPSY, r/o adenoma Performed By: #### S ####[facility] LABIA [id number] [address] [place] DIAGNOSIS COMMENT Normal [facility] Comment on above: Order Comment: Robb clement Type: TISSUE SPECIMENOrdering Facility: [facility] Address: [address] [place] [address] Result Comment: A. A denovirus stain is negative for viral inclusions. Dr Valorie Jaimes has reviewed this part of the case and concurs. Laboratory Developed Test (LDT) Disclaimer: Performance characteristics of immunohistochemical, immunofluorescent and chromogenic in-situ hybridization tests have been determined by the performing laboratory within [facility]???s Lul Gandhi [facility] Pathology and Laboratory Medicine [place] ([facility], [facility], [facility] or [facility]) in a manner consistent with CLIA requirements. One or more of these tests have not been cleared or approved by the FDA. [facility] is regulated under CLIA as qualified to perform high-complexity testing. These tests are used for clinical purposes. They should not be regarded as investigational or for research. Positive and negative controls stain appropriately. Performed By: #### S ####[facility] LABCLIA [id number] [address] [place] FINAL DIAGNOSIS Normal [facility] Comment on above: Order Comment: Matai men Type: TISSUE SPECIMENOrdering Facility: [facility] Address: [address] [place] [address] Result Comment: A. D uodenum, biopsy: - Incidental and minute tubular adenoma, negative for high grade dysplasia. See comment. - Duodenal mucosa with no diagnostic alterations. B. Stomach, biopsy: - Oxyntic and antral mucosa with no diagnostic alteration. - No morphologic evidence of H. Pylori microorganisms. C. Stomach, polypectomy: - Hyperplastic polyp. Performed By: #### S ####[facility] LABCLIA [id number] [address] FINAL PERFORMING LAB Normal [facility] Comment on above: Order Comment: Speci men Type: TISSUE SPECIMENOrdering Facility: [facility] Address: [address] [place] [address] Result Comment: Diag nostic interpretation performed at [facility], [address] [place] [address] CLIA# [id number] Mine Foreman: Constantin Quevedo M.D. Performed By: #### S ####[facility] LABCLIA [id number] [address] GROSS DESCRIPTION Normal [facility] Comment on above: Order Comment: Speci men Type: TISSUE SPECIMENOrdering Facility: [facility] Address: [address] [place] [address] Result Comment: A. D UODENUM BIOPSY Received [...] in one cassette. Gross examination performed at [facility], [address] [place] [address], [place] [address] TTN 01/02/2022 12:06 AM Performed By: #### S ####[facility] ANKUR [id number] BRYAN MUSKEGONTOR [id number] [address] [place] [facility] Upper GI endoscopyon --2 022 Upper GI endoscopy A31 Gastrointestinal Endoscopy Patient Name: Sai Guerrero Procedure Date: 01/01/2022 3:37 PM Date of : 1970 Admit Type: Outpatient Age: 51 Room: [address] Gender: Female Note Status: Finalized [...] the patient. 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 All rights reserved. The codes documented in this report are preliminary and upon cleaning technician review may be revised to meet current compliance requirements. Attending Participation: I personally performed the entire procedure. Scope In: 4:09:57 PM Scope Out: 4:21:34 PM MD Tiffani Camargo MD 01/01/2022 4:34:18 PM This report has been signed electronically by Tiffani Morales MD Number of Addenda: 0 Note Initiated On: 01/01/2022 3:37 PM [facility] Tele[facility] (GAPRA3) SAI WELLS ([id number]) 1970 F Date Time Provider Department 12/28/21 [...] have family/friend present for procedure transport home:Patient/patient member services representative was told that if they do [...] area. Any barriers to Patient learning: Patient/Patient Freight Car Inspector responded appropriately on phone. Type of instruction [...] Status:Closed by JOSE ROBERTO VYAS on 12/28/21 [facility] Zi 12-25-[address] [facility] Telephone (GAPRA3) SAI WELLS ([id number]) 1970 F Date Time Provider Department 12/25/21 RIMA GERARD3 During your visit today, we recorded the [...] Encounter Status:Closed by RIMA GERARD on 12/25/21 [facility] Zi 12-18-2021 [facility] Telephone (GAPRA3) SAI WELLS ([id number]) 1970 F Date Time Provider Department 12/18/21 BHUPINDER CARREON GAPRA3 During your visit today, we recorded the following information about you: Bhupinder Carreon MA 12/18/2021 10:51 AM Signed Attempted to reach the patient at the contact number that they provided [phone] (home) . Unable to speak with patient [...] Status:Closed by BHUPINDER CARREON on 12/18/21 [facility] 12-13-2021 [facility] Tele[facility] (EVANGELINA) SAI WELLS ([id number]) 1970 F Date Time Provider Department 12/13/21 ANASTASIYA MOSQUEDA [facility] During your visit today, we recorded the following information about you: Elizabeth Jimenez [facility] 12/13/2021 11:20 AM Signed Received a call from patient's health agency concerning virtual visit set up with you today at 11 - Patient has not registered for [employer] (having trouble accessing her email) AND they want to know if you will do a phone visit instead Was told this was an urgent request from the referring doctor's office - the visit was scheduled thru the Referring Physician office There are no records found for this patient AND I attempted to pull records thru Care Everywhere Patient's phone [phone] Elizabeth Jimenez [facility] Elizabeth Jimenez [facility] 12/13/2021 12:33 PM Signed Spoke to patient's daughter - she will contact the [employer] support line to assist with setting up patient's [employer] AND assist with set up for virtual visit tomorrow morning [facility] 12/14/2021 12:34 PM Signed Patient phoned again unable to connect with you via [employer] Okay to schedule phone visit tomorrow? [phone] Elizabeth Jimenez [facility] Elizabeth Jimenez [facility] 12/14/2021 1:32 PM Signed Patient scheduled for phone visit Dec 15 at 11 am - patient instructed not to screen her calls at the time of the visit AND to answer her phone [facility] Elizabeth Jimenez [facility] 12/15/2021 11:46 AM Addendum Patient called the office stating you did not phone her for her 11 am appt today- she confirmed the phone number on file desk operator checked the patient in as arrived you should be able to call her back without rescheduling the time [phone] Elizabeth Jimenez [facility] Allergies As of Date: 12/13/2021 (No Known [...] Status:Closed by ELIZABETH RODRIGUEZ on 12/13/21 Normal [facility] BNPon 12-11-2021 Natriuretic peptide B (Bld) [Mass/Vol] 134.0 pg/mL Normal <=900.0 [facility] Comment on above: Performed By: #### M MAChari #### [facility] [address] [place] [address] Dr. Prince Olivas CBC AUTO DIFFon 12-11-2021 BASO # 0.0 103/ul Normal 0.0-0.1 [facility] Comment on above: Performed By: #### L IPID, CMP #### [facility] [address] [place] [address] Dr. Prince Olivsa Basophils/100 WBC (Bld) 0.4 % Normal 0.2-2.0 [facility] Comment on above: Performed By: #### L IPID, CMP #### [facility] [address] [place] [address] Dr. Prince Olivas EO # 0.0 103/ul Normal 0.0-0.7 [facility] Comment on above: Performed By: #### L IPID, CMP #### [facility] [address] [place] [address] Dr. Prince Olivas Eosinophils/100 WBC (Bld) 0.3 % Critically low 0.9-7.0 [facility] Comment on above: Performed By: #### L IPID, CMP #### [facility] [address] [place] [address] Dr. Prince Olivas Erythrocyte distribution width (RBC) [Ratio] 13.1 % Normal 11.0-15.0 [facility] Comment on above: Performed By: #### L IPID, CMP #### [facility] [address] [place] [address] Dr. Prince Olivas Hematocrit (Bld) [Volume fraction] 45.9 % Normal 36.0-48.0 [facility] Comment on above: Performed By: #### L IPID, CMP #### [facility] [address] [place] [address] Dr. Prince Olivas Hemoglobin (Bld) [Mass/Vol] 15.3 g/dL Normal 12.0-16.0 [facility] Comment on above: Performed By: #### L IPID, CMP #### [facility] [address] [place] [address] Dr. Prince Olivas IG # 0.04 10e3/ul Critically high 0.00-0.03 [facility] Comment on above: Performed By: #### L IPID, CMP #### [facility] [address] [address] [address] Prince Olivas IG % 0.4 % Normal 0.0-0.5 [facility] Comment on above: Performed By: #### L IPID, CMP #### [facility] [address] [place] [address] Dr. Prince Olivas LYMPH # 1.9 103/ul Normal 1.2-3.8 [facility] Comment on above: Performed By: #### L IPID, CMP #### [facility] [address] [place] [address] Dr. Prince Olivas Lymphocytes/100 WBC (Bld) 17.0 % Critically low 20.5-60.0 [facility] Comment on above: Performed By: #### L IPID, CMP #### [facility] [address] [place] [address] Dr. Prince Olivas MANUAL DIFF REQ NO Normal [facility] Comment on above: Performed By: #### L IPID, CMP #### [facility] [address] [place] [address] Dr. Prince Olivas MCH (RBC) [Entitic mass] 31.4 pg Normal 26.7-34.0 [facility] Comment on above: Performed By: #### L IPID, CMP #### [facility] [address] [place] [address] Dr. Prince Olivas MCHC (RBC) [Mass/Vol] 33.3 g/dL Normal 29.9-35.2 [facility] Comment on above: Performed By: #### L IPID, CMP #### [facility] [address] [place] [address] Dr. Prince Olivas MCV (RBC) [Entitic vol] 94.3 fL Normal 81.0-99.0 [facility] [facility]: Performed By: #### L IPID, CMP #### [facility] [address] [place] [address] Dr. Prince Olivas MONO # 0.6 103/ul Normal 0.3-0.8 [facility] Comment on above: Performed By: #### L IPID, CMP #### [facility] [address] [place] [address] Dr. Prince Olivas Monocytes/100 WBC (Bld) 5.6 % Normal 1.7-12.0 [facility] Comment on above: Performed By: #### L IPID, CMP #### [facility] [address] [place] [address] Dr. Prince Olivas NEUT # 8.3 103/ul Critically high 1.4-6.5 [facility] Comment on above: Performed By: #### L IPID, CMP #### [facility] [address] [place] [address] Dr. Prince Olivas Neutrophils/100 WBC (Bld) 76.3 % Critically high 43.0-75.0 [facility] Comment on above: Performed By: #### L IPID, CMP #### [facility] [address] [place] [address] Dr. Prince Olivas Platelet mean volume (Bld) [Entitic vol] 12.1 fL Normal 9.5-13.5 [facility] Comment on above: Performed By: #### L IPID, CMP #### [facility] [address] [place] [address] Dr. Prince Olivas PLT 204 103/ul Normal 150-450 [facility] Comment on above: Performed By: #### L IPID, CMP #### [facility] [address] [place] [address] Dr. Prince Olivas RBC 4.87 106/ul Normal 4.20-5.40 [facility] Comment on above: Performed By: #### L IPID, CMP #### [facility] [address] [place] [address] Dr. Prince Olivas WBC 10.9 103/ul Normal 4.0-11.0 [facility] Comment on above: Performed By: #### L IPID, CMP #### [facility] [address] [place] [address] Dr. Prince Olivas LACTATE/LACTIC ACIDon 2021 Lactate [Moles/Vol] 1.9 mmol/L Normal 0.4-1.9 [facility] Comment on above: Performed By: #### S ARGENTINADEISON #### [facility] [address] [place] [address] Dr. Prince Olivas LIPASEon 12-11-2021 Lipase [Catalytic activity/Vol] 49.0 U/L Critically low 73.0-393.0 [facility] Comment on above: Performed By: #### M MA2 #### [facility] [address] [place] [address] Dr. Prince Olivas PROF 14(COMP METB)on 022 Albumin [Mass/Vol] 4.5 g/dL Normal 3.4-5.0 [facility] Comment on above: Performed By: #### M ADRIAN2 #### [facility] [address] [place] [address] Dr. Prince Olivas Albumin/Globulin [Mass ratio] 1.7 {ratio} Normal [facility] Comment on above: Performed By: #### M ADRIAN2 #### [facility] [address] [place] [address] Dr. Prince Olivas ALP [Catalytic activity/Vol] 83 U/L Normal 46-116 [facility] Comment on above: Performed By: #### M ADRIAN2 #### [facility] [address] [place] [address] Dr. Prince Olivas ALT [Catalytic activity/Vol] 19 U/L Normal 14-59 [facility] Comment on above: Performed By: #### Marine CAMPBELL2 #### [facility] [address] [place] [address] Dr. Prince Olivas Anion gap [Moles/Vol] 15.8 mmol/L Normal [facility] Comment on above: Performed By: #### M ADRIAN2 #### [facility] [address] [place] [address] Dr. Prince Olivas AST [Catalytic activity/Vol] 15 U/L Normal 15-37 [facility] Comment on above: Performed By: #### M ADRIAN2 #### [facility] [address] [place] [address] Dr. Prince Olivas Bilirubin [Mass/Vol] 0.6 mg/dL Normal 0.2-1.0 [facility] Comment on above: Performed By: #### M MA2 #### [facility] [address] [address] [address] Prince Olivas Calcium [Mass/Vol] 9.3 mg/dL Normal 8.5-10.1 [facility] Comment on above: Performed By: #### M MA2 #### [facility] [address] [address] [address] Prince Olivas Chloride [Moles/Vol] 103 mmol/L Normal 98-107 [facility] Comment on above: Performed By: #### M MA2 #### [facility] [address] [place] [address] Dr. Prince Olivas CO2 [Moles/Vol] 25.9 mmol/L Normal 21.0-32.0 [facility] Comment on above: Performed By: #### M MA2 #### [facility] [address] [place] [address] Dr. Prince Olivas Creatinine [Mass/Vol] 0.97 mg/dL Normal 0.55-1.02 [facility] Comment on above: Performed By: #### Marine MA2 #### [facility] [address] [place] [address] Dr. Prince Olivas EGFR-AF AZERBAIJANI >60 Normal >=60 [facility] Comment on above: Performed By: #### Marine MA2 #### [facility] [address] [place] [address] Dr. Prince Olivas EGFR-NON AF AZERBAIJANI >60 Normal >=60 [facility] Comment on above: Performed By: #### M MA2 #### [facility] [address] [place] [address] Dr. Prince Olivas Globulin (S) [Mass/Vol] 2.7 g/dL Normal [facility] Comment on above: Performed By: #### M MA2 #### [facility] [address] [place] [address] Dr. Prince Olivas Glucose [Mass/Vol] 107 mg/dL Critically high 74-106 [facility] Comment on above: Performed By: #### M MA2 #### [facility] [address] [address] [address] Prince Olivas Potassium [Moles/Vol] 3.7 mmol/L Normal 3.5-5.1 [facility] Comment on above: Performed By: #### M MA2 #### [facility] [address] [address] [address] Prince Olivas Protein [Mass/Vol] 7.2 g/dL Normal 6.4-8.2 [facility] Comment on above: Performed By: #### M MA2 #### [facility] [address] [address] [address] Prince Olivas Sodium [Moles/Vol] 141 mmol/L Normal 136-145 [facility] Comment on above: Performed By: #### M MA2 #### [facility] [address] [address] [address] Prince Olivas Urea nitrogen [Mass/Vol] 11.0 mg/dL Normal 7.0-18.0 [facility] Comment on above: Performed By: #### M MA2 #### [facility] [address] [address] [address] Prince Olivas Urea nitrogen/Creatinine [Mass ratio] 11.3 mg/mg Normal [facility] Comment on above: Performed By: #### M MA2 #### [facility] [address] [address] [address] Prince Olivas TROPONIN, HIGH SENSITIVITYon 12-11-2021 HSTROP 5.5 pg/mL Normal 4.0-51.3 [facility] Comment on above: Result Comment: CUT- OFF POINTS HAVE BEEN ESTABLISHED BASED ON THE FOURTH UNIVERSAL DEFINITIONS OF MYOCARDIAL INFARCTION. THE UPPER REFERENCE LIMIT (URL) OF TROPONIN, DEFINED THE 99TH PERCENTILE OF cTnI DISTRIBUTION IN A REFERENCE POPULATION, HAS BEEN CONFIRMED THE DECISION THRESHOLD FOR [place] DIAGNOSIS. Performed By: #### M MA2 #### [facility] [address] [address] [address] Prince Olivas XR CHEST 1 Von [...] by: BRITNI HARRISON Date: 2021-12-11 15:20 Normal [facility] Coding Summary.on 12-06-2021 Coding Summary. CD:[id number] Gh0bWw+P GhlYWQ+YG3KOPWpY04mmLHygS2IF 9fOTF3HCPSWURLYKJ4CLG7gkCY4U RdmR6HpeuKr WychjBXwXM00LFm2QMD3jUlaTCfj nU4ogVCgI9v4RdZwPO58xZ91DBtu XDQyQtN9EgJdwhxelXGw M3zaLxDqaYKpBvn+PHRhYmxlIHdp RKFrDHubWFOaXeMjiHpnKB3hVt1r ZGVyLWNvbGxhcHNlOiBj l2nsYNVvATneZM9kfGmlH1WkiKR6 RXRms2e3Hj10iGF+BNUhMNW6iKbh VZjlk765MnGtq0rsUYO8 rMDtDOgwPGE9N38uw1S2CGXgXRZq INM8nIX3zN9huLsgfyfaA6NfyGNe NgS1CKT0zCOczY2diPeh swumeH6qApm+Q31MZE3FSGKUUK2U Cef6P5EmRnkywVE+SD74MRLlTD85 aMWfjYTzz8bbhQc9MpXa BIXjBIX2oBdiQMvax7HqGTXfJ61x uYUef1R4ROYhoRypbDOyLeJogXK1 wH1xFIoopwivq6dencsh Jfmpx3tfta93rV88O43oHNpdWUQa YBB8SGTxDXQefGsxrs2xtZ1vUp3+ CMfef0hwq6tgrOl5BjPg KPBzlvRbpFtdTRE7f5YkMe72I1Pm sJmep3XsOjg6pq19sTDcq9S4vSQ7 STzqOOTthD7dBYugWeT5 ZZZuPiCseI46gJIxEGfxDp0whXzb nAxtIP1zQDUgxchvFSPmyU7jEUPk jLSoqBvwMX3hOFVszknz k945LeNtGFE3GSFdfSWkX9QjqQ7w TnUiFYWvOUAtI8EmgUApIBztV810 NYpgLcU6QGMsxtIhN6Rj OREqgHspYqH1d0Z9Cf7Uc2Vzlkdj ACI9IPjzIXJ2DpZvKdPfHfK7O2Lf Azj6GTBzdZztYE3lT6Nz TNEfcngpocyckBD0MYUzQPBotY10 pIYpVDqhZq5hw2Q8x927GSLeFWZq oG93He0puYroLCRhvHRB rI3vtqens7rloxljCiRcNBUoPFy6 ADy5YVRosXjfRmAgAEL0OuV7PNN4 kFGocJ7wnGpstzcpwF4o Oyc+D18buB7mPUA4TSW2preuHEOp hpEcUQ31UI61A0PzRwcjaMEckOE+ FMKdmeAutOhyPF0fWjLm m9ycu0QpBVlkQ0MoLWBjLXpePpe6 UDHvPWQ5uFI0hW1dZMWdYAtbw1G9 gTA6F6UojqGovh2qp2wk HJDtMOnnU48mgKWem7O7RNPvxIZ6 ROFlwOlxIiWtwI72Lxl+PGNvbGdy m1JfFrplo2syy5hkxHe9 TjXtGFGbsaNvvJyqYRD8y0DxOe58 L10jOExtSPIqZWKyYPFdJLClrRkk ty4kjX6yXu4+PGNvbCB3 jRJ5zM5jKJLfSzW0PHsdG103GlYw xUPgCycyq0unu3ouxOl3BtPcNPZs uxHgjZftMDU5q2JbZp81 U70jJPqwUMWoJOSdWAHgZWDjcVcj tb2iyQ5bWo8+PK6id2dhrf22oL18 dHI+KSCdUUR9vAwaSFhp TPIevC5hHZasSiR0SAUjCnGccG49 tTFxEIvxSw3loSewbKerLG2rDQMu dedbf200ArBdq2vjYUZd oNXmGIpyBDS9M85yk3P9DNMtMVPb OAL2lDE6aB4iaHscclfvdFDwzFls evIqjQfqFVcwAFcvG754 IHRvcDsnPlBhdGllbnQgTmFtZTo8 A9ZaWyx0TVMekFyqDN6esVLlHBpp Wk1otGbmwSdyPC0bOXXz dwkbz249OpEdy8uyXKEwwGNdDIaq CSL6U23yf9Q7AQMoMCBzMIA7nRG4 uG6rePtzozyzaJKbvCxt edWipSmzQYnzPRhrM897LZHmfEhe MrHgcaZfAMBaoBC7PG64SL36lYDg n8U3sZM7G3PoFQVhlmpy seevjZV2SMNxMKAqiC75Ny5ohSon Yy8fUJUiCVL1ZTVilJWiA5SjqZ4k MlBaBKPaTLKuN2NteRZa TRnsD603JFxgIvD7PRGvqnZbF1Wv FZAmyBtgUfI8e2F8Jj2UH0Z4NX52 YV87jKCnl6P9qBQ9N4Jw YKGglrmfysepwSF2AYQwBRWijB78 Ng5ibVgeFx6jOWOqWCP5MGImyMMm Z7YlxJ2eKiCkQAFoNLMo U1WumKUgCUmxL396AGsbNdF8KOOl wsXoQ9CgBWAfwQfoWbG2y9Z7Zn5B NJs8XG33PS35gTXee2L4 mPY3O4ZsSBZmhrwfnxnsbDO1PAEt ZVRnfB84Ch9azKebQi0dTYKrPYA6 UAQjhXEoZ6MnmZ8vNgMy GMLsNOGwT9OneVGuXDnrP277THhl ArL7DGVdnfZiY7XfYTLtsCuhBdM8 o8I1Mx2WVBXrUQ55XMJ9 jYB0HX32AY90A0BdDynxkQJojOZ+ PHRhYmxlIHdpZHRoPScxMDAlJyBz fAbjQY5kPw6gBNIhNFHt zGitrJKyExYfy7ppQWPkKAnfKW8q oNudT7DnaNE7EQVsq4x9Or96C79g F6IlpJP+WOSuvJJ6yJR1 nY9zTnNwAvM2MRzqG261TsSomUQb Ywcxi9pht6gbyMx9ClE0KJAynxKy dDbwTZZ9o4EcOq87S41m JNhfGSHwUYAiLSIbEPIdsJvxfu8q uB3pVl2+QJYhhDS2gSY7cZ5oThIs CuL9IHfiK209UzNbzEDv Khxjh0oli7sqkOb2BpUvDGEyeqFt fDfjGWV0i2JrSc47L4JsaYcbq9Uh Zcb0cd75rLDzv0X9iCL9 O9HkWZDhxhgqrLPesSdaET6pMWIi privLRSykC9jAQOmP4m2EgHjEvB1 IFaqM6PzetA0FSUqkYHv AQsoFRJ7F33jq5N9KJWxCLIyPNV9 gLN1dW9uwQvrpilxpTBsgEpatiNq mAxiQWgcJBvbC418RKFu qVhnRVLbcC7gZIRbiHLxkQthYP6u NTBpbjsnPldFQVZFUiwgUkhPTkRB GQG4A9KdGle5WGHnoMvt NW6hbDXbQSnkFb5xfOubjAfbCZ8m VJThputsYOWbeK6fBTXoiGOefJdi PY9dRKIskmxhx930RhOo IUP6KJCpoGAxA6LxwO7sMcJdQGZk QOJvR5MagVNlYSptH089DSwdVvL1 OWUcqvPkT8MdCGHalFmo WvY6f4O9Hy8dXs9zKb1qWRklKS80 NK55xDOrs1U1fAN3J5VbBKJlativ lgdhaJP7XXScMLSukY93 nRTpZXjoLv2cb5Y3h575OSJlVRQq uO79Oc0piZtuDUIbnGLLzU8caxgc c3fwpyhmSiEkQGUaQEc5 HIa4ZTTrcAixXtDwJRY0QgQ2NDH6 rQCmbT1mpHtznxidtS8eNfq+NTEg RGNpykP3I9FgIbm9TEYo eQcbIL8bsARfCTkgVm0gkDpuwHbz FX6kANXbcfamUBXhtH0xEUOkjNYw hCzdKR3rIIQxfheuf902 ErSiZXW7JJPiqYUtP7EfaH5pZkUh TAGtKHMcK3WgqARgRYasT191PVnh UlQ9TIHizoEeH9CoEELg iUteOfQ5o8E4Xn8LGN1ucZV2W9Ag Pfc0XHJzaAjoOV8twCHfBJjuAw0s cMxwrHbuJO3mZYRgetcl BAJmwO3bBGGufOZykTlmDB2hLQLv ddvaf049ZsRbVYI9VJIesSDxE8Pr bA8vCuKwAMUhFTNoS0Gu rBIaZYmnI357CZhnYxB3ROOycbIa T9AhEHSssUruFuC0e0U1Xa0LyDIb M0LuI4c9H0HgAaojtRP+ IC42IWGkQB79vUYddYVig7jjqGb8 AfYqIDHbGNO3sEjuUFksc0CeGMVa I78trCUli3O0BQBjePhf uWPlYiUarPH1wC1gYLapdylzf9zu javkXeibx5ccsi31eU24Y29vJUor ZHRoPSIzMCUiIHZhbGln va9ayJ1kPi1+AICgoID0zXR3pL2k PdDnBaB4FFdiP452YbHuoOSoDmlo s9lht6nqpVi5FiJtOQHt kuPqsExyTYK7w4HzOh15Z70fTWix CLLuOIHmHPHhMSHoyZmrip3ftJ8m Ii8+ZU0xx1zyex54tA43 dHI+BNPeUWG7lTfhUTydBUTuhA7w TSasYsI5QHGhKfZquY95cEXxNIkd Es0ezMcbqFutNI9kAHYj wrbbd878MaYnr1ecOLPatGOtFBdc OYC2L54ua9J2VVHxUHNzVLP1cWD6 kH2mkWfzuiqgmDBimVnz lfIfvCthBIyaQTndC305RSDorLwe GlBqcQGnZ1tuquMVBN2yDcdguKA+ NFYnTIC1pVyxBHpjGENs sN4gAZElN6c6XwTgOsJ3DDxsL4Gm vnC7JMQrcDXfAINytZHRrP9kespv n3plbfygUbTvDVFvQZg7 DBx7SVWlkCvxRgGfDBE7PuD2NPP5 aLHrlO2vuNovqwyspP8lCif+RklO OjwvdGQ+GJMdDGP1aDbm PWmwLGWabA1cODHeW1r1BdYxSfP1 UYdeF6ThxqP0FKZuyKHuBLIjtVFA kT9xiowcj3zxznrjJsIe TLYmHWf3OFm3JVFnbEpaClRiMAM4 DzN4AJL9tQAxvO7mqIfrzcexqW5k Oyc+TVJOOjwvdGQ+PHRk DBV9rFudAMvoVWChaI0kRARcN7w9 CdDpAeF5NOrmX0JranU7XQPwvKFr TSStaLUQtH4qoacqh2nq lsgmAfKvECOiQNw0DKz5EPCmrJib JdIuRXB8CgP9DUP2rXUqcX3okWfq xvwkjS4pUnk+MFS1VFK8 EF96RP62N8JoHxlfaEUoyJI+PHRh YmxlIHdpZHRoPScxMDAlJyBzdHls KO8iSn6eXBYaXQEwcAvf cHNl (more content not included)... Normal [facility] Amylaseon 12-03-2021 Amylase [Catalytic activity/Vol] 32 U/L Normal 25-[address] [facility] Comment on above: Performed By: #### 1 [id number], 0300467, 6877172, 8174447, 6453174, 2845030, 1381694 #### [facility] [address] [place] [address] Auto Diffon 12-03-2021 Basophils/100 WBC (Bld) 0.6 % Normal 0.0-2.[address] [facility] Comment on above: Order Comment: Order Added by Discern Expert. Performed By: #### 1 [id number], 8307146, 5563295, 7020444, 7069246, 8713574, 9440090 #### [facility] [address] [place] [address] Basophils/Leukocyte s Auto (Bld) [Pure # fraction] 0.1 E9/L Normal 0.0-0.[address] [facility] Comment on above: Order Comment: Order Added by Discern Expert. Performed By: #### 1 7130671, 4272432, 4442801, 1152692, 7996587, 8082941, 7823581 #### [facility] [address] [place] [address] Eosinophils/100 WBC (Bld) 0.1 % Normal 0.0-8.[address] [facility] Comment on above: Order Comment: Order Added by Discern Expert. Performed By: #### 1 2089042, 2490736, 1772476, 7964344, 4314366, 5648767, 5431906 #### [facility] [address] [place] [address] Eosinophils/Leukocy lefty Auto (Bld) [Pure # fraction] 0.0 E9/L Normal 0.0-0.[address] [facility] Comment on above: Order Comment: Order Added by Discern Expert. Performed By: #### 1 2635409, 1553258, 0536127, 1159864, 1054503, 2525896, 8581287 #### [facility] [address] [place] [address] Lymphocytes/100 WBC (Bld) 16.1 % Normal 14.0-50.[address] [facility] Comment on above: Order Comment: Order Added by Discern Expert. Performed By: #### 1 4692084, 5821541, 4188999, 0860690, 9925452, 7823151, 2902694 #### [facility] [address] [place] [address] Lymphocytes/Leukocy lefty Auto (Bld) [Pure # fraction] 1.5 E9/L Normal 1.0-4.[address] [facility] Comment on above: Order Comment: Order Added by Discern Expert. Performed By: #### 1 9427563, 1888376, 7739199, 8454252, 0774025, 3276715, 3438612 #### [facility] [address] [place] [address] Monocytes/100 WBC (Bld) 4.6 % Normal 4.0-14.[address] [facility] Comment on above: Order Comment: Order Added by Discern Expert. Performed By: #### 1 7409030, 1240698, 3136241, 2804211, 9966876, 1379212, 8766243 #### [facility] [address] [place] [address] Monocytes/Leukocyte s Auto (Bld) [Pure # fraction] 0.4 E9/L Normal 0.2-1.[address] [facility] Comment on above: Order Comment: Order Added by Discern Expert. Performed By: #### 1 7909801, 8221533, 1911317, 8500052, 7771673, 8721864, 2070031 #### [facility] [address] [place] [address] Neutrophils/100 WBC (Bld) 78.6 % High 36.0-75.[address] [facility] Comment on above: Order Comment: Order Added by Discern Expert. Performed By: #### 1 0519882, 8853011, 9789008, 1190112, 8651736, 5934098, 8873505 #### [facility] [address] [place] [address] Neutrophils/Leukocy lefty Auto (Bld) [Pure # fraction] 7.6 E9/L High 2.0-7.[address] [facility] Comment on above: Order Comment: Order Added by Discern Expert. Performed By: #### 1 2814126, 4615780, 3636783, 6440156, 6067525, 7364196, 1649602 #### [facility] [address] [place] [address] BMPon 12-03-2021 Creatinine [Mass/Vol] 1.1 mg/dL Normal 0.5-1.[address] [facility] Comment on above: Performed By: #### 1 0334503, 5123920, 6843884, 4450789, 0315296, 9887547, 4849956 #### [facility] [address] [place] [address] Urea nitrogen [Mass/Vol] 21 mg/dL Normal 5-[address] [facility] Comment on above: Performed By: #### 1 6727200, 5347771, 0872557, 5489478, 3666196, 1160514, 8623147 #### [facility] [address] [place] [address] Urea nitrogen/Creatinine [Mass ratio] 19 No Units Normal 10-[address] [facility] Comment on above: Performed By: #### 1 1133353, 2975690, 5192577, 7984621, 4252377, 6944567, 1207049 #### [facility] [address] [place] [address] Anion gap [Moles/Vol] 22 mmol/L High 6-[address] [facility] Comment on above: Performed By: #### 1 9777802, 8938642, 1694475, 0980831, 6180604, 3769719, 1757928 #### [facility] [address] [place] [address] Calcium [Mass/Vol] 9.8 mg/dL Normal 8.9-11.[address] [facility] Comment on above: Performed By: #### 1 1561590, 3500072, 6934945, 1303523, 6996945, 5043613, 4144308 #### [facility] [address] [place] [address] Chloride [Moles/Vol] 96 mmol/L Low 101-[address] [facility] Comment on above: Performed By: #### 1 3354425, 2844414, 6333091, 2120100, 8171536, 2402268, 6484547 #### [facility] [address] [place] [address] CO2 [Moles/Vol] 19 mmol/L Low 21-[address] [facility] Comment on above: Performed By: #### 1 9245684, 7606895, 7714222, 6652233, 0509698, 9903070, 6963044 #### [facility] [address] [place] [address] Glucose [Mass/Vol] 64 mg/dL Normal 55-[address] [facility] Comment on above: Result Comment: If t his glucose result represents a fasting glucose, interpretation should refer to the following reference range: 55-99 mg/dL Performed By: #### 1 8298688, 6282760, 0987159, 6722247, 6628530, 7255143, 9495846 #### [facility] [address] [place] [address] Potassium [Moles/Vol] 4.3 mmol/L Normal 3.5-5.[address] [facility] Comment on above: Performed By: #### 1 1773881, 8267165, 9460295, 3614756, 0871303, 4491825, 6937690 #### [facility] [address] [place] [address] Sodium [Moles/Vol] 133 mmol/L Low 135-[address] [facility] Comment on above: Performed By: #### 1 8145758, 8020852, 5729865, 9825082, 9589598, 9099751, 0360041 #### [facility] [address] [place] [address] CBC w/ Auto Diffon Erythrocyte distribution width (RBC) [Ratio] 13.5 % Normal 10.9-14.[address] [facility] Comment on above: Performed By: #### 1 6662267, 7786422, 2258343, 7012955, 8108310, 0885905, 8678323 #### [facility] [address] [place] [address] Hematocrit (Bld) [Volume fraction] 51.0 % High 34.0-46.[address] [facility] Comment on above: Performed By: #### 1 6601914, 4279381, 7851328, 7087342, 4335170, 6050166, 4512958 #### [facility] [address] [place] [address] Hemoglobin (Bld) [Mass/Vol] 16.8 g/dL High 12.0-16.[address] [facility] Comment on above: Performed By: #### 1 5635305, 1837601, 5138447, 9893793, 3303734, 7778036, 2469673 #### [facility] [address] [place] [address] MCH (RBC) [Entitic mass] 30.9 pg Normal 27.0-34.[address] [facility] Comment on above: Performed By: #### 1 6874552, 8662032, 6036320, 9984784, 9704948, 2794296, 7275982 #### [facility] [address] [place] [address] MCHC (RBC) [Mass/Vol] 32.9 g/dL Normal 31.4-36.[address] [facility] Comment on above: Performed By: #### 1 4838828, 2521969, 8797133, 5955089, 7550400, 7864557, 2497970 #### [facility] [address] [place] [address] MCV (RBC) [Entitic vol] 94.0 fL Normal 80.0-100.[address] [facility] Comment on above: Performed By: #### 1 2336315, 5357946, 2297639, 8567688, 5945564, 5080064, 3132746 #### [facility] [address] [place] [address] Platelet mean volume (Bld) [Entitic vol] 9.8 fL Normal 6.4-10.[address] [facility] Comment on above: Performed By: #### 1 0110510, 4613135, 2619959, 1290470, 6307287, 2381412, 8582833 #### [facility] [address] [place] [address] Platelets (Bld) [#/Vol] 212.0 E9/L Normal 150.0-500.[address] [facility] Comment on above: Performed By: #### 1 9219413, 8005423, 7531189, 7126237, 8399548, 0206598, [id number] #### [facility] [address] [place] [address] RBC (Bld) [#/Vol] 5.4 E12/L Normal 4.3-5.[address] [facility] Comment on above: Performed By: #### 1 [id number], [id number], 0683870, 7807762, 5586535, 7592954, [id number] #### [facility] [address] [place] [address] WBC corrected for nucl RBC Auto (Bld) [#/Vol] 9.6 E9/L Normal 4.0-11.[address] [facility] Comment on above: Performed By: #### 1 [id number], 8497662, 5865264, 1683838, 0424553, 8497014, [id number] #### [facility] [address] [place] [address] Consent for Treatmenton 11-16 Consent for Treatment [id number]:[address] [facility] Discharge Instructionson Discharge Instructions [id number]:[address] [facility] ED Clinical Summaryon 2021 ED Clinical Summary (Inserted Image. Antoinette ble to display) [address] [address] ED Clinical Summary Person Information Name: SAI PINEDA Natalie/[facility] Age: 51 Years : 1970 Sex: Female Language: Bahraini PCP: CRISTINA IQBAL CNP Marital Status: Visit Id: Visit Reason: Nausea; Abdominal pain; [id number] BREATHING Speciality: Acuity: 3 Enc Type: Emergency [...] 12/03/2021 13:54:54 12/03/2021 13:54:54 12/03/2021 13:54:54 ADDRESS: [address] [place] [address] [id number] PHYS DOC NOTES: MEDICAL INFORMATION: Prescriptions Given: New Medications [facility]/pharmacy #[id number], [address] [place], [place] [id number], [phone] promethazine (Phenergan 25 mg Supp) 1 Suppositories By rectum every 6 hours as needed as needed for nausea. Insert one per rectum every six hours as needed for nausea and vomiting. Refills: 0. promethazine (promethazine 25 mg Tab) 1 Tablets By Mouth every 4 hours. Refills: 0. Medications to Continue Taking That Have Changed [facility]/pharmacy #[id number], [address] [place], [place] [id number], [phone] START: pantoprazole (Protonix 40 mg Tab-DR) 1 [...] day. PATIENT EDUCATION INFORMATION: Instructions: Gastritis, Adult, Aivr-[id number]; Abdominal Pain, Adult Follow up: With: Address: When: CRISTINA ROGER [address] [place], [place] [id number] [phone] Business (1) In 3 days 12/06/2021 DIAGNOSIS: 1:Upper abdominal pain; 2:Gastritis; 3:Anxiety Normal [facility] ED Note-Physicianon 12-04-19 ED Note-Physician Basic [...] Daily, # 30 tab(s), Refills(s) 0, [id number], 172.9, cm, 12/03/21 10:15:00 EDT, Height/Length Dosing, 46.2, kg, 12/03/21 10:15:00 EDT, Weight Dosing promethazine, 25 mg = 1 tab(s), Oral, q4hr, # 12 tab(s), Refills(s) 0, [id number], 172.9, cm, 12/03/21 10:15:00 EDT, Height/Length Dosing, 46.2, kg, 12/03/21 10:15:00 EDT, Weight Dosing promethazine, 25 mg = 1 supp, Rectal, q6hr, PRN as needed for nausea, Insert one per rectum every six hours as needed for nausea and vomiting, # 6 EA, Refills(s) 0, [id number], 172.9, cm, 12/03/21 10:15:00 EDT, Height/Length [...] mg/mL IV Misty, 20 mg, IV Push [id number] [F], 1000 mL, IV promethazine 25 mg/mL [...] In 3 days 12/06/2021 EDT [address] [place] [address] [phone] Business (1) Additional Instructions: Patient Ed (more content not included)... Normal [facility] Comment on above: Result Comment: Elec [...] these instructions at home: Medicines ? Take qekz-ieg-pkpibqa and prescription medicines only as told by [...] 08/20/2008 Document Revised: 07/22/2018 Document Reviewed: 07/22/2018 [employer] Patient Education ? 2020 [employer]. Abdominal Pain, Adult Pain in the abdomen [...] these instructions at home: Medicines ? Take dlxe-ydk-jvwswau and prescription medicines only as told by [...] are cons (more content not included)... Normal [facility] ED Patient Summaryon 022 ED Patient Summary (Inserted Image. Antoinette ble to display) [place] [id number] Patient Discharge Instructions Person Information Name: SAI PINEDA Age: 51 Years Arrival Date: 12/03/2021 09:55:45 Discharge Diagnosis: 1:Upper abdominal pain; 2:Gastritis; 3:Anxiety Primary Care Physician: CRISTINA IQBAL CNP Provider Information Primary Provider: Vipin Pina MD [employer] Coordinator:None The exam and treatment you received in the Emergency Department were for an urgent problem and are not intended as complete care. It is important that you follow up with a doctor, nurse practitioner, or physician?s billing and accounting staff assistant for ongoing care. If your symptoms become worse or you do not improve as expected and you are unable to reach your usual health care provider, you should return to the Emergency Department. We are available 24 hours a day. FATUMA SAI Oliveros has been given the following list of patient education materials, prescriptions and follow-up instructions: Follow-up Instructions: With: Address: When: CRISTINA IQBAL [address], [place], [place] [id number] [phone] Business (1) In 3 days 12/06/2021 In the event that this physician does not participate in your insurance network, please consult with your insurance company to find a nearby participating provider. Patient Education Materials: Gastritis, Adult, Noyx-kb-Lfvi; Abdominal Pain, Adult A MESSAGE TO ALL PATIENTS REGARDING OPIOIDS PRESCRIPTION OPIOIDS: WHAT YOU NEED TO KNOW Prescription opioids can be used to help relieve nmzdcoxu-ty-npofhb pain and are often prescribed following a [...] be struggling with addiction, tell your health primary care nurse practitioner and ask for guidance or call [facility]? (more content not included)... Normal [facility] Hep Func Panelon 12-03-2021 Albumin [Mass/Vol] 5.3 g/dL High 3.3-5.[address] [facility] Comment on above: Performed By: #### 1 [id number], [id number], 7634051, 6614261, 0274824, 7462043, 1499181 #### [facility] [address] [place] [address] Albumin/Globulin (S) [Mass conc ratio] 1.8 Normal 1.1-2.[address] [facility] Comment on above: Performed By: #### 1 [id number], 9100631, 6910659, 3945801, 5851197, 3282222, 1340280 #### [facility] [address] [place] [address] ALP [Catalytic activity/Vol] 79 Int._Unit/L Normal 21-[address] [facility] Comment on above: Performed By: #### 1 [id number], 8716893, 2814935, 4873587, 1567917, 3766992, 2114561 #### [facility] [address] [place] [address] ALT No additional P-5'-P [Catalytic activity/Vol] 14 Int._Unit/L Normal 6-[address] [facility] Comment on above: Performed By: #### 1 [id number], 0284548, 6691558, 1764045, 8204912, 7646321, 8887429 #### [facility] [address] [place] [address] AST [Catalytic activity/Vol] 21 Int._Unit/L Normal 5-[address] [facility] Comment on above: Performed By: #### 1 [id number], 5038069, 2378572, 3314026, 3495536, 6907961, 8643554 #### [facility] [address] [place] [address] Bilirubin [Mass/Vol] 1.2 mg/dL High 0.0-1.[address] [facility] Comment on above: Performed By: #### 1 9542631, 5813921, 3753592, 6358462, 2566660, 1409794, 4666564 #### [facility] [address] [place] [address] Bilirubin.direct [Mass/Vol] 0.2 mg/dL Normal 0.1-0.[address] [facility] Comment on above: Performed By: #### 1 4806623, 4773304, 3287345, 0918772, 3355074, 3475314, 0654060 #### [facility] [address] [place] [address] Bilirubin.indirect [Mass or moles/Vol] 1.0 mg/dL High 0.1-0.[address] [facility] Comment on above: Performed By: #### 1 2958351, 6723851, 9645897, 5864516, 5024659, 6172740, 5122923 #### [facility] [address] [place] [address] Globulin (S) [Mass/Vol] 3.0 g/dL Normal 1.4-4.[address] [facility] Comment on above: Performed By: #### 1 [id number], 2291755, 1211334, 3825783, 3140526, 2650291, 6339028 #### [facility] [address] [place] [address] Protein [Mass/Vol] 8.3 g/dL High 6.0-7.[address] [facility] Comment on above: Performed By: #### 1 2896172, 9269979, 2857922, 1382834, 3963909, 8924621, 5706538 #### [facility] [address] [place] [address] Lipase Levelon 12-03-2021 Lipase [Catalytic activity/Vol] 21 U/L Normal 13-[address] [facility] Comment on above: Performed By: #### 1 [id number], 0608372, 6838967, 6568196, 7193151, 8078793, 0856449 #### [facility] [address] [place] [address] eGFRon 12-03-2021 GFR/1.73 sq M.predicted among blacks MDRD (S/P/Bld) [Vol rate/Area] mL/min/{1.73_m2} Normal >=[address] [facility] Comment on above: Order Comment: Order added by Discern Expert. Result Comment: eGFR is race adjusted. AA=. Performed By: #### 1 2073064, 9079423, 8787426, 9824798, 0545290, 9176526, 6572324 #### [facility] [address] [place] [address] GFR/1.73 sq M.predicted among non-blacks MDRD (S/P/Bld) [Vol rate/Area] 52 mL/min/1.73 m2 Low >=[address] [facility] Comment on above: Order Comment: Order added by Discern Expert. Result Comment: Maker [employer] julian kidney disease could be indicated at eGFR's of less than 60 mL/min/1.73m2. Kidney failure is indicated at less than 15 mL/min/1.73m2. Performed By: #### 1 1672284, 3655326, 8247011, 1177348, 8609340, 2299407, 9955217 #### [facility] [address] [place] [address] CARDIAC SIMA ADMITon 022 CK [Catalytic activity/Vol] 72 U/L Normal 26-192 [facility] Comment on above: Performed By: #### S ELNIUM #### [facility] [address] [place] [address] Dr. Prince Olivas CK.MB [Mass/Vol] 1.28 ng/mL Normal <=3.60 [facility] Comment on above: Performed By: #### S ADOREUM #### [facility] [address] [place] [address] Dr. Prince Olivas HSTROP 5.4 pg/mL Normal 4.0-51.3 [facility] Comment on above: Result Comment: CUT- OFF POINTS HAVE BEEN ESTABLISHED BASED ON THE FOURTH UNIVERSAL DEFINITIONS OF MYOCARDIAL INFARCTION. THE UPPER REFERENCE LIMIT (URL) OF TROPONIN, DEFINED THE 99TH PERCENTILE OF cTnI DISTRIBUTION IN A REFERENCE POPULATION, HAS BEEN CONFIRMED THE DECISION THRESHOLD FOR [place] DIAGNOSIS. Performed By: #### S ELNIUM #### [facility] [address] [place] [address] Dr. Prince Olivas JENNIFRE 58 ng/mL Normal 9-82 [facility] Comment on above: Performed By: #### S ELNIUM #### [facility] [address] [place] [address] Dr. Prince Olivas CBC AUTO DIFFon 11-14-2021 BASO # 0.1 103/ul Normal 0.0-0.1 [facility] Comment on above: Performed By: #### L IPID, CMP #### [facility] [address] [place] [address] Dr. Prince Olivas Basophils/100 WBC (Bld) 0.6 % Normal 0.2-2.0 [facility] Comment on above: Performed By: #### L IPID, CMP #### [facility] [address] [place] [address] Dr. Prince Olivas EO # 0.1 103/ul Normal 0.0-0.7 [facility] Comment on above: Performed By: #### L IPID, CMP #### [facility] [address] [place] [address] Dr. Prince Olivas Eosinophils/100 WBC (Bld) 0.9 % Normal 0.9-7.0 [facility] Comment on above: Performed By: #### L IPID, CMP #### [facility] [address] [place] [address] Dr. Prince Olivas Erythrocyte distribution width (RBC) [Ratio] 13.0 % Normal 11.0-15.0 [facility] Comment on above: Performed By: #### L IPID, CMP #### [facility] [address] [place] [address] Dr. Prince Olivas Hematocrit (Bld) [Volume fraction] 46.3 % Normal 36.0-48.0 [facility] Comment on above: Performed By: #### L IPID, CMP #### [facility] [address] [place] [address] Dr. Prince Olivas Hemoglobin (Bld) [Mass/Vol] 15.8 g/dL Normal 12.0-16.0 [facility] Comment on above: Performed By: #### L IPID, CMP #### [facility] [address] [place] [address] Dr. Prince Olivas IG # 0.03 10e3/ul Normal 0.00-0.03 [facility] Comment on above: Performed By: #### L IPID, CMP #### [facility] [address] [place] [address] Dr. Prince Olivas IG % 0.3 % Normal 0.0-0.5 [facility] Comment on above: Performed By: #### L IPID, CMP #### [facility] [address] [place] [address] Dr. Prince Olivas LYMPH # 2.8 103/ul Normal 1.2-3.8 [facility] Comment on above: Performed By: #### L IPID, CMP #### [facility] [address] [place] [address] Dr. Prince Olivas Lymphocytes/100 WBC (Bld) 31.8 % Normal 20.5-60.0 [facility] Comment on above: Performed By: #### L IPID, CMP #### [facility] [address] [place] [address] Dr. Prince Olivas MANUAL DIFF REQ NO Normal [facility] Comment on above: Performed By: #### L IPID, CMP #### [facility] [address] [place] [address] Dr. Prinec Olivas MCH (RBC) [Entitic mass] 31.5 pg Normal 26.7-34.0 [facility] Comment on above: Performed By: #### L IPID, CMP #### [facility] [address] [place] [address] Dr. Prince Olivas MCHC (RBC) [Mass/Vol] 34.1 g/dL Normal 29.9-35.2 [facility] Comment on above: Performed By: #### L IPID, CMP #### [facility] [address] [place] [address] Dr. Prince Olivas MCV (RBC) [Entitic vol] 92.4 fL Normal 81.0-99.0 [facility] Comment on above: Performed By: #### L IPID, CMP #### [facility] [address] [place] [address] Dr. Prince Olivas MONO # 0.6 103/ul Normal 0.3-0.8 [facility] Comment on above: Performed By: #### L IPID, CMP #### [facility] [address] [place] [address] Dr. Prince Olivas Monocytes/100 WBC (Bld) 6.8 % Normal 1.7-12.0 [facility] Comment on above: Performed By: #### L IPID, CMP #### [facility] [address] [place] [address] Dr. Prince Olivas NEUT # 5.3 103/ul Normal 1.4-6.5 [facility] Comment on above: Performed By: #### L IPID, CMP #### [facility] [address] [place] [address] Dr. Prince Olivas Neutrophils/100 WBC (Bld) 59.6 % Normal 43.0-75.0 [facility] Comment on above: Performed By: #### L IPID, CMP #### [facility] [address] [place] [address] Dr. Prince Olivas Platelet mean volume (Bld) [Entitic vol] 11.6 fL Normal 9.5-13.5 [facility] Comment on above: Performed By: #### L IPID, CMP #### [facility] [address] [place] [address] Dr. Prince Olivas PLT 185 103/ul Normal 150-450 [facility] Comment on above: Performed By: #### L IPID, CMP #### [facility] [address] [place] [address] Dr. Prince Olivas RBC 5.01 106/ul Normal 4.20-5.40 [facility] Comment on above: Performed By: #### L IPID, CMP #### [facility] [address] [place] [address] Dr. Prince Olivas WBC 8.9 103/ul Normal 4.0-11.0 [facility] Comment on above: Performed By: #### L IPID, CMP #### [facility] [address] [place] [address] Dr. Prince Olivas LIPASEon 11-14-2021 Lipase [Catalytic activity/Vol] 84.0 U/L Normal 73.0-393.0 [facility] Comment on above: Performed By: #### S ELNIUM #### [facility] [address] [place] [address] Dr. Prince Olivas PROF 14(COMP METB)on 022 Albumin [Mass/Vol] 4.1 g/dL Normal 3.4-5.0 [facility] Comment on above: Performed By: #### S ELNIUM #### [facility] [address] [place] [address] [address] Prince Olivas Albumin/Globulin [Mass ratio] 1.6 {ratio} Normal [facility] Comment on above: Performed By: #### S ELNIUM #### [facility] [address] [place] [address] [address] Prince Olivas ALP [Catalytic activity/Vol] 76 U/L Normal 46-116 [facility] Comment on above: Performed By: #### S ELNIUM #### [facility] [address] [place] [address] [address] Prince Olivas ALT [Catalytic activity/Vol] 14 U/L Normal 14-59 [facility] Comment on above: Performed By: #### S ELNIUM #### [facility] [address] [place] [address] [address] Prince Olivas Anion gap [Moles/Vol] 17.7 mmol/L Normal [facility] Comment on above: Performed By: #### S ELNIUM #### [facility] [address] [place] [address] [address] Prince Olivas AST [Catalytic activity/Vol] 15 U/L Normal 15-37 [facility] Comment on above: Performed By: #### S ELNIUM #### [facility] [address] [place] [address] [address] Prince Olivas Bilirubin [Mass/Vol] 0.7 mg/dL Normal 0.2-1.0 [facility] Comment on above: Performed By: #### S ELNIUM #### [facility] [address] [place] [address] [address] Prince Olivas Calcium [Mass/Vol] 9.4 mg/dL Normal 8.5-10.1 [facility] Comment on above: Performed By: #### S ELNIUM #### [facility] [address] [place] [address] [address] Prinec Olivas Chloride [Moles/Vol] 104 mmol/L Normal 98-107 [facility] Comment on above: Performed By: #### S ELNIUM #### [facility] [address] [place] [address] [address] Prince Olivas CO2 [Moles/Vol] 20.8 mmol/L Critically low 21.0-32.0 [facility] Comment on above: Performed By: #### S ELNIUM #### [facility] [address] [place] [address] [address] Prince Olivas Creatinine [Mass/Vol] 0.96 mg/dL Normal 0.55-1.02 [facility] Comment on above: Performed By: #### S ELNIUM #### [facility] [address] [place] [address] [address] Prince Olivas EGFR-AF AZERBAIJANI >60 Normal >=60 [facility] Comment on above: Performed By: #### S ELNIUM #### [facility] [address] [place] [address] [address] Prince Olivas EGFR-NON AF AZERBAIJANI >60 Normal >=60 [facility] Comment on above: Performed By: #### S ELNIUM #### [facility] [address] [place] [address] [address] Prince Olivas Globulin (S) [Mass/Vol] 2.6 g/dL Normal [facility] Comment on above: Performed By: #### S ELNIUM #### [facility] [address] [place] [address] [address] Prince Olivas Glucose [Mass/Vol] 104 mg/dL Normal 74-106 [facility] Comment on above: Performed By: #### S ELNIUM #### [facility] [address] [place] [address] [address] Prince Olivas Potassium [Moles/Vol] 3.5 mmol/L Normal 3.5-5.1 [facility] Comment on above: Performed By: #### S ELNIUM #### [facility] [address] [place] [address] [address] Prince Olivas Protein [Mass/Vol] 6.7 g/dL Normal 6.4-8.2 [facility] Comment on above: Performed By: #### S ELNIUM #### [facility] [address] [place] [address] [address] Prince Olivas Sodium [Moles/Vol] 139 mmol/L Normal 136-145 [facility] Comment on above: Performed By: #### S ELNIUM #### [facility] [address] [place] [address] [address] Prince Olivas Urea nitrogen [Mass/Vol] 10.0 mg/dL Normal 7.0-18.0 [facility] Comment on above: Performed By: #### S ELNIUM #### [facility] [address] [place] [address] [address] Prince Olivas Urea nitrogen/Creatinine [Mass ratio] 10.4 mg/mg Normal [facility] Comment on above: Performed By: #### S ELNIUM #### [facility] [address] [place] [address] Dr. Prince Olivas XR ABD FLAT UP_PA [...] CHITRA ALFARO Date: 2021-11-14 18:10 Normal [facility] CBC AUTO DIFFon 11-09-2021 BASO # 0.0 103/ul Normal 0.0-0.1 [facility] Comment on above: Performed By: #### S ELNIUM #### [facility] [address] [place] [address] [address] Prince Olivas Basophils/100 WBC (Bld) 0.3 % Normal 0.2-2.0 [facility] Comment on above: Performed By: #### S ELNIUM #### [facility] [address] [place] [address] Dr. Prince Olivas EO # 0.0 103/ul Normal 0.0-0.7 [facility] Comment on above: Performed By: #### S ELNIUM #### [facility] [address] [place] [address] Dr. Prince Olivas Eosinophils/100 WBC (Bld) 0.3 % Critically low 0.9-7.0 [facility] Comment on above: Performed By: #### S ELNIUM #### [facility] [address] [place] [address] Dr. Prince Olivas Erythrocyte distribution width (RBC) [Ratio] 13.1 % Normal 11.0-15.0 [facility] Comment on above: Performed By: #### S ELNIUM #### [facility] [address] [place] [address] Dr. Prince Olivas Hematocrit (Bld) [Volume fraction] 46.8 % Normal 36.0-48.0 [facility] Comment on above: Performed By: #### S ELNIUM #### [facility] [address] [place] [address] Dr. Prince Olivas Hemoglobin (Bld) [Mass/Vol] 15.8 g/dL Normal 12.0-16.0 [facility] Comment on above: Performed By: #### S ELNIUM #### [facility] [address] [place] [address] Dr. Prince Olivas IG # 0.03 10e3/ul Normal 0.00-0.03 [facility] Comment on above: Performed By: #### S ELNIUM #### [facility] [address] [place] [address] Dr. Prince Olivas IG % 0.3 % Normal 0.0-0.5 [facility] Comment on above: Performed By: #### S ELNIUM #### [facility] [address] [place] [address] Dr. Prince Olivas LYMPH # 2.9 103/ul Normal 1.2-3.8 [facility] Comment on above: Performed By: #### S ELNIUM #### [facility] [address] [place] [address] [address] Prince Olivas Lymphocytes/100 WBC (Bld) 31.7 % Normal 20.5-60.0 [facility] Comment on above: Performed By: #### S ELNIUM #### [facility] [address] [place] [address] [address] Prince Olivas MANUAL DIFF REQ NO Normal [facility] Comment on above: Performed By: #### S ELNIUM #### [facility] [address] [place] [address] [address] Prince Olivas MCH (RBC) [Entitic mass] 31.9 pg Normal 26.7-34.0 [facility] Comment on above: Performed By: #### S ELNIUM #### [facility] [address] [place] [address] Dr. Prince Olivas MCHC (RBC) [Mass/Vol] 33.8 g/dL Normal 29.9-35.2 [facility] Comment on above: Performed By: #### S ELNIUM #### [facility] [address] [place] [address] [address] Prince Olivas MCV (RBC) [Entitic vol] 94.5 fL Normal 81.0-99.0 [facility] Comment on above: Performed By: #### S ELNIUM #### [facility] [address] [place] [address] [address] Prince Olivas MONO # 0.5 103/ul Normal 0.3-0.8 [facility] Comment on above: Performed By: #### S ELNIUM #### [facility] [address] [place] [address] [address] Prince Olivas Monocytes/100 WBC (Bld) 5.2 % Normal 1.7-12.0 [facility] Comment on above: Performed By: #### S ELNIUM #### [facility] [address] [place] [address] [address] Prince Olivas NEUT # 5.8 103/ul Normal 1.4-6.5 [facility] Comment on above: Performed By: #### S ELNIUM #### [facility] [address] [place] [address] [address] Prince Olivas Neutrophils/100 WBC (Bld) 62.2 % Normal 43.0-75.0 [facility] Comment on above: Performed By: #### S ELNIUM #### [facility] [address] [place] [address] [address] Prince Olivas Platelet mean volume (Bld) [Entitic vol] 11.1 fL Normal 9.5-13.5 [facility] Comment on above: Performed By: #### S ELNIUM #### [facility] [address] [place] [address] Dr. Prince Olivas PLT 218 103/ul Normal 150-450 [facility] Comment on above: Performed By: #### S ELNIUM #### [facility] [address] [place] [address] Dr. Prince Olivas RBC 4.95 106/ul Normal 4.20-5.40 [facility] Comment on above: Performed By: #### S ELNIUM #### [facility] [address] [place] [address] Dr. Prince Olivas WBC 9.3 103/ul Normal 4.0-11.0 [facility] Comment on above: Performed By: #### S ELNIUM #### [facility] [address] [place] [address] Dr. Prince Olivas PROF CHEM 8 (BAS METB)on Anion gap [Moles/Vol] 14.8 mmol/L Normal [facility] Comment on above: Performed By: #### C OPPER #### [facility] [address] [place] [address] Dr. Prince Olivas Calcium [Mass/Vol] 9.3 mg/dL Normal 8.5-10.1 [facility] Comment on above: Performed By: #### C OPPER #### [facility] [address] [place] [address] Dr. Prince Olivas Chloride [Moles/Vol] 105 mmol/L Normal 98-107 [facility] Comment on above: Performed By: #### C OPPER #### [facility] [address] [place] [address] [address] Prince Olivas CO2 [Moles/Vol] 23.7 mmol/L Normal 21.0-32.0 [facility] Comment on above: Performed By: #### C OPPER #### [facility] [address] [place] [address] Dr. Prince Olivas Creatinine [Mass/Vol] 0.95 mg/dL Normal 0.55-1.02 [facility] Comment on above: Performed By: #### C OPPER #### [facility] [address] [place] [address] Dr. Prince Olivas EGFR-AF AZERBAIJANI >60 Normal >=60 [facility] Comment on above: Performed By: #### C OPPER #### [facility] [address] [place] [address] Dr. Prince Olivas EGFR-NON AF AZERBAIJANI >60 Normal >=60 [facility] Comment on above: Performed By: #### C OPPER #### [facility] [address] [place] [address] Dr. Prince Olivas Glucose [Mass/Vol] 103 mg/dL Normal 74-106 [facility] Comment on above: Performed By: #### C OPPER #### [facility] [address] [place] [address] Dr. Prince Olivas Potassium [Moles/Vol] 3.5 mmol/L Normal 3.5-5.1 [facility] Comment on above: Performed By: #### C OPPER #### [facility] [address] [place] [address] Dr. Prince Olivas Sodium [Moles/Vol] 140 mmol/L Normal 136-145 [facility] Comment on above: Performed By: #### C OPPER #### [facility] [address] [place] [address] Dr. Prince Olivas Urea nitrogen [Mass/Vol] 7.0 mg/dL Normal 7.0-18.0 [facility] Comment on above: Performed By: #### C OPPER #### [facility] [address] [address] [address] Prince Olivas Urea nitrogen/Creatinine [Mass ratio] 7.4 mg/mg Normal [facility] Comment on above: Performed By: #### C OPPER #### [facility] [address] [place], [place] [address] Dr. Prince Olivas TROPONIN, HIGH SENSITIVITYon 11-09-2021 HSTROP 4.3 pg/mL Normal 4.0-51.3 [facility] Comment on above: Result Comment: CUT- OFF POINTS HAVE BEEN ESTABLISHED BASED ON THE FOURTH UNIVERSAL DEFINITIONS OF MYOCARDIAL INFARCTION. THE UPPER REFERENCE LIMIT (URL) OF TROPONIN, DEFINED THE 99TH PERCENTILE OF cTnI DISTRIBUTION IN A REFERENCE POPULATION, HAS BEEN CONFIRMED THE DECISION THRESHOLD FOR [place] DIAGNOSIS. Performed By: #### C OPPER #### [facility] [address] [address] [address] Prince Olivas XR CHEST 1 Von [...] BELEN REGAN Date: 2021-11-09 17:05 Normal [facility] CARDIAC SIMA ADMITon 022 CK [Catalytic activity/Vol] 62 U/L Normal 26-192 [facility] Comment on above: Performed By: #### M MA2 #### [facility] [address] [address] [address] Prince Olivas CK.MB [Mass/Vol] 0.37 ng/mL Normal <=3.60 [facility] Comment on above: Performed By: #### M MA2 #### [facility] [address] [address] [address] Prince Olivas HSTROP 3.5 pg/mL Critically low 4.0-51.3 [facility] Comment on above: Result Comment: CUT- OFF POINTS HAVE BEEN ESTABLISHED BASED ON THE FOURTH UNIVERSAL DEFINITIONS OF MYOCARDIAL INFARCTION. THE UPPER REFERENCE LIMIT (URL) OF TROPONIN, DEFINED THE 99TH PERCENTILE OF cTnI DISTRIBUTION IN A REFERENCE POPULATION, HAS BEEN CONFIRMED THE DECISION THRESHOLD FOR [place] DIAGNOSIS. Performed By: #### M MA2 #### [facility] [address] [place] [address] Dr. Prince Olivas JENNIFER 40 ng/mL Normal 9-82 [facility] Comment on above: Performed By: #### M MA2 #### [facility] [address] [place] [address] Dr. Prince Olivas CBC AUTO DIFFon 10-04-2021 BASO # 0.0 103/ul Normal 0.0-0.1 [facility] Comment on above: Performed By: #### C BC #### [facility] [address] [place] [address] Dr. Prince Olivas Basophils/100 WBC (Bld) 0.6 % Normal 0.2-2.0 [facility] Comment on above: Performed By: #### C BC #### [facility] [address] [place] [address] Dr. Prince Olivas EO # 0.3 103/ul Normal 0.0-0.7 [facility] Comment on above: Performed By: #### C BC #### [facility] [address] [place] [address] Dr. Prince Olivas Eosinophils/100 WBC (Bld) 3.7 % Normal 0.9-7.0 [facility] Comment on above: Performed By: #### C BC #### [facility] [address] [place] [address] Dr. Prince Olivas Erythrocyte distribution width (RBC) [Ratio] 13.4 % Normal 11.0-15.0 [facility] Comment on above: Performed By: #### C BC #### [facility] [address] [place] [address] Dr. Prince Olivas Hematocrit (Bld) [Volume fraction] 42.8 % Normal 36.0-48.0 [facility] Comment on above: Performed By: #### C BC #### [facility] [address] [place] [address] Dr. Prince Olivas Hemoglobin (Bld) [Mass/Vol] 14.1 g/dL Normal 12.0-16.0 [facility] Comment on above: Performed By: #### C BC #### [facility] [address] [place] [address] Dr. Prince Olivas IG # 0.02 10e3/ul Normal 0.00-0.03 [facility] Comment on above: Performed By: #### C BC #### [facility] [address] [place] [address] Dr. Prince Olivas IG % 0.3 % Normal 0.0-0.5 [facility] Comment on above: Performed By: #### C BC #### [facility] [address] [place] [address] Dr. Prince Olivas LYMPH # 2.0 103/ul Normal 1.2-3.8 [facility] Comment on above: Performed By: #### C BC #### [facility] [address] [place] [address] Dr. Prince Olivas Lymphocytes/100 WBC (Bld) 27.6 % Normal 20.5-60.0 [facility] Comment on above: Performed By: #### C BC #### [facility] [address] [place] [address] Dr. Prince Olivas MANUAL DIFF REQ NO Normal [facility] Comment on above: Performed By: #### C BC #### [facility] [address] [place] [address] Dr. Prince Olivas MCH (RBC) [Entitic mass] 31.4 pg Normal 26.7-34.0 [facility] Comment on above: Performed By: #### C BC #### [facility] [address] [place] [address] Dr. Prince Olivas MCHC (RBC) [Mass/Vol] 32.9 g/dL Normal 29.9-35.2 [facility] Comment on above: Performed By: #### C BC #### [facility] [address] [address] [address] Prince Olivas MCV (RBC) [Entitic vol] 95.3 fL Normal 81.0-99.0 [facility] Comment on above: Performed By: #### C BC #### [facility] [address] [address] [address] Prince Olivas MONO # 0.6 103/ul Normal 0.3-0.8 [facility] Comment on above: Performed By: #### C BC #### [facility] [address] [address] [address] Prince Olivas Monocytes/100 WBC (Bld) 8.2 % Normal 1.7-12.0 [facility] Comment on above: Performed By: #### C BC #### [facility] [address] [place] [address] Dr. Prince Olivas NEUT # 4.2 103/ul Normal 1.4-6.5 [facility] Comment on above: Performed By: #### C BC #### [facility] [address] [place] [address] Dr. Prince Olivas Neutrophils/100 WBC (Bld) 59.6 % Normal 43.0-75.0 [facility] Comment on above: Performed By: #### C BC #### [facility] [address] [place] [address] Dr. Prince Olivas Platelet mean volume (Bld) [Entitic vol] 11.1 fL Normal 9.5-13.5 [facility] Comment on above: Performed By: #### C BC #### [facility] [address] [place] [address] Dr. Prince Olivas PLT 194 103/ul Normal 150-450 [facility] Comment on above: Performed By: #### C BC #### [facility] [address] [place] [address] Dr. Prince Olivas RBC 4.49 106/ul Normal 4.20-5.40 [facility] Comment on above: Performed By: #### C BC #### [facility] [address] [place] [address] Dr. Prince Olivas WBC 7.1 103/ul Normal 4.0-11.0 [facility] Comment on above: Performed By: #### C BC #### [facility] [address] [address] [address] Prince Olivas PROF 14(COMP METB)on 022 Albumin [Mass/Vol] 3.9 g/dL Normal 3.4-5.0 [facility] Comment on above: Performed By: #### Marine CAMPBELL2 #### [facility] [address] [place] [address] Dr. Prince Olivas Albumin/Globulin [Mass ratio] 1.4 {ratio} Normal [facility] Comment on above: Performed By: #### Marine CAMPBELL2 #### [facility] [address] [place] [address] Dr. Prince Olivas ALP [Catalytic activity/Vol] 71 U/L Normal 46-116 [facility] Comment on above: Performed By: #### Marine CAMPBELL2 #### [facility] [address] [place] [address] Dr. Prince Olivas ALT [Catalytic activity/Vol] 18 U/L Normal 14-59 [facility] Comment on above: Performed By: #### Marine CAMPBELL2 #### [facility] [address] [place] [address] Dr. Prince Olivas Anion gap [Moles/Vol] 10.1 mmol/L Normal [facility] Comment on above: Performed By: #### Marine CAMPBELL2 #### [facility] [address] [address] [address] Prince Olivas AST [Catalytic activity/Vol] 11 U/L Critically low 15-37 [facility] Comment on above: Performed By: #### Marine CAMPBELL2 #### [facility] [address] [place] [address] Dr. Prince Olivas Bilirubin [Mass/Vol] 0.4 mg/dL Normal 0.2-1.0 [facility] Comment on above: Performed By: #### Marine CAMPBELL2 #### [facility] [address] [place] [address] Dr. Prince Olivas Calcium [Mass/Vol] 8.8 mg/dL Normal 8.5-10.1 [facility] Comment on above: Performed By: #### M MA2 #### [facility] [address] [place] [address] Dr. Prince Olivas Chloride [Moles/Vol] 105 mmol/L Normal 98-107 [facility] Comment on above: Performed By: #### Marine MA2 #### [facility] [address] [place] [address] Dr. Prince Olivas CO2 [Moles/Vol] 27.0 mmol/L Normal 21.0-32.0 [facility] Comment on above: Performed By: #### Marine MA2 #### [facility] [address] [place] [address] Dr. Prince Olivas Creatinine [Mass/Vol] 0.67 mg/dL Normal 0.55-1.02 [facility] Comment on above: Performed By: #### Marine MA2 #### [facility] [address] [place] [address] Dr. Prince Olivas EGFR-AF AZERBAIJANI >60 Normal >=60 [facility] Comment on above: Performed By: #### Marine MA2 #### [facility] [address] [place] [address] Dr. Prince Olivas EGFR-NON AF AZERBAIJANI >60 Normal >=60 [facility] Comment on above: Performed By: #### Marine MA2 #### [facility] [address] [place] [address] Dr. Prince Olivas Globulin (S) [Mass/Vol] 2.7 g/dL Normal [facility] Comment on above: Performed By: #### M MA2 #### [facility] [address] [place] [address] Dr. Prince Olivas Glucose [Mass/Vol] 105 mg/dL Normal 74-106 [facility] Comment on above: Performed By: #### M MA2 #### [facility] [address] [place] [address] Dr. Prince Olivas Potassium [Moles/Vol] 4.1 mmol/L Normal 3.5-5.1 [facility] Comment on above: Performed By: #### M MA2 #### [facility] [address] [address] [address] Prince Olivas Protein [Mass/Vol] 6.6 g/dL Normal 6.4-8.2 [facility] Comment on above: Performed By: #### M MA2 #### [facility] [address] [address] [address] Prince Olivas Sodium [Moles/Vol] 138 mmol/L Normal 136-145 [facility] Comment on above: Performed By: #### M MA2 #### [facility] [address] [address] [address] Prince Olivas Urea nitrogen [Mass/Vol] 7.0 mg/dL Normal 7.0-18.0 [facility] Comment on above: Performed By: #### M MA2 #### [facility] [address] [address] [address] Prince Olivas Urea nitrogen/Creatinine [Mass ratio] 10.4 mg/mg Normal [facility] Comment on above: Performed By: #### M MA2 #### [facility] [address] [address] [address] Prince Olivas XR CHEST 1 Von [...] BARBI HENRY Date: 2021-10-04 10:58 Normal [facility] PROLACTINon 09-26-2021 Prolactin 149.0 ng/mL Critically high 4.8-23.3 [facility] Comment on above: Performed By: #### L IPID, CMP #### [facility] [address] [address] [address] Prince Olivas LIPID PROFILEon 09-25-2021 CHOL-HDL RATIO NORM SEE BELOW Normal [facility] Comment on above: Result Comment: 3.3 - 4.4 LOW RISK 4.4 - 7.1 AVERAGE RISK 7.1 - 11.0 MODERATE RISK >11.0 HIGH RISK Performed By: #### L IPID, CMP #### [facility] [address] [address] [address] Prince Olivas Cholesterol [Mass/Vol] 205 mg/dL Critically high <=200 [facility] Comment on above: Performed By: #### L IPID, CMP #### [facility] [address] [address] [address] Prince Olivas Cholesterol in HDL [Mass/Vol] 46 mg/dL Normal 40-60 [facility] Comment on above: Performed By: #### L IPID, CMP #### [facility] [address] [place] [address] Dr. Prince Olivas Cholesterol in LDL [Mass/Vol] 148.6 mg/dL Normal [facility] Comment on above: Performed By: #### L IPID, CMP #### [facility] [address] [place] [address] Dr. Prince Olivas Cholesterol.total/C holesterol in HDL [Mass ratio] 4.5 {ratio} Normal [facility] Comment on above: Performed By: #### L IPID, CMP #### [facility] [address] [place] [address] Dr. Prince Olivas HDL NORMAL > or = 60 mg/dl - LO W CARDIOVASCULAR RISK <40 mg/dl - HIGH CARDIOVASCULAR RISK Normal [facility] Comment on above: Performed By: #### L IPID, CMP #### [facility] [address] [place] [address] Dr. Prince Olivas LDL CALC NORMAL SEE BELOW Normal [facility] Comment on above: Result Comment: <100 mg/dl OPTIMAL 100 - 129 mg/dl NEAR OR ABOVE OPTIMAL 130 - 159 mg/dl BORDERLINE HIGH 160 - 189 mg/dl HIGH >190 mg/dl VERY HIGH Performed By: #### L IPID, CMP #### [facility] [address] [address] [address] Prince Olivas Triglyceride [Mass/Vol] 52 mg/dL Normal <=150 [facility] Comment on above: Performed By: #### L IPID, CMP #### [facility] [address] [address] [address] Prince Olivas VLDL CALC 10.4 mg/dL Normal [facility] Comment on above: Performed By: #### L IPID, CMP #### [facility] [address] [address] [address] Prince Olivas PROF 14(COMP METB)on 022 Albumin [Mass/Vol] 3.7 g/dL Normal 3.4-5.0 [facility] Comment on above: Performed By: #### L IPID, CMP #### [facility] [address] [place] [address] Dr. Prince Olivas Albumin/Globulin [Mass ratio] 1.5 {ratio} Normal [facility] Comment on above: Performed By: #### L IPID, CMP #### [facility] [address] [place] [address] Dr. Prince Olivas ALP [Catalytic activity/Vol] 66 U/L Normal 46-116 [facility] Comment on above: Performed By: #### L IPID, CMP #### [facility] [address] [place] [address] Dr. Prince Olivas ALT [Catalytic activity/Vol] 14 U/L Normal 14-59 [facility] Comment on above: Performed By: #### L IPID, CMP #### [facility] [address] [place] [address] Dr. Prince Olivas Anion gap [Moles/Vol] 13.8 mmol/L Normal [facility] Comment on above: Performed By: #### L IPID, CMP #### [facility] [address] [place] [address] Dr. Prince Olivas AST [Catalytic activity/Vol] 10 U/L Critically low 15-37 [facility] Comment on above: Performed By: #### L IPID, CMP #### [facility] [address] [place] [address] Dr. Prince Olivas Bilirubin [Mass/Vol] 0.3 mg/dL Normal 0.2-1.0 [facility] Comment on above: Performed By: #### L IPID, CMP #### [facility] [address] [place] [address] Dr. Prince Olivas Calcium [Mass/Vol] 8.9 mg/dL Normal 8.5-10.1 [facility] Comment on above: Performed By: #### L IPID, CMP #### [facility] [address] [place] [address] Dr. Prince Olivas Chloride [Moles/Vol] 106 mmol/L Normal 98-107 [facility] Comment on above: Performed By: #### L IPID, CMP #### [facility] [address] [place] [address] Dr. Prince Olivas CO2 [Moles/Vol] 24.0 mmol/L Normal 21.0-32.0 [facility] Comment on above: Performed By: #### L IPID, CMP #### [facility] [address] [place] [address] Dr. Prince Olivas Creatinine [Mass/Vol] 1.05 mg/dL Critically high 0.55-1.02 [facility] Comment on above: Performed By: #### L IPID, CMP #### [facility] [address] [place] [address] Dr. Prince Olivas EGFR-AF AZERBAIJANI >60 Normal >=60 [facility] Comment on above: Performed By: #### L IPID, CMP #### [facility] [address] [place] [address] Dr. Prince Olivas EGFR-NON AF AZERBAIJANI 55 mL/min/1.73m2 Critically low >=60 [facility] Comment on above: Performed By: #### L IPID, CMP #### [facility] [address] [place] [address] Dr. Prince Olivas Globulin (S) [Mass/Vol] 2.5 g/dL Normal [facility] Comment on above: Performed By: #### L IPID, CMP #### [facility] [address] [place] [address] Dr. Prince Olivas Glucose [Mass/Vol] 107 mg/dL Critically high 74-106 [facility] Comment on above: Performed By: #### L IPID, CMP #### [facility] [address] [address] [address] Prince Olivas Potassium [Moles/Vol] 3.8 mmol/L Normal 3.5-5.1 [facility] Comment on above: Performed By: #### L IPID, CMP #### [facility] [address] [address] [address] Prince Olivas Protein [Mass/Vol] 6.2 g/dL Critically low 6.4-8.2 [facility] Comment on above: Performed By: #### L IPID, CMP #### [facility] [address] [place] [address] Dr. Prince Olivas Sodium [Moles/Vol] 140 mmol/L Normal 136-145 [facility] Comment on above: Performed By: #### L IPID, CMP #### [facility] [address] [place] [address] Dr. Prince Olivas Urea nitrogen [Mass/Vol] 10.0 mg/dL Normal 7.0-18.0 [facility] Comment on above: Performed By: #### L IPID, CMP #### [facility] [address] [place] [address] Dr. Prince Olivas Urea nitrogen/Creatinine [Mass ratio] 9.5 mg/mg Normal [facility] Comment on above: Performed By: #### L IPID, CMP #### [facility] [address] [place] [address] Dr. Prince Olivas Vital Signs Date Time Vital Sign Value Performing Clinician Facility 03-23-2024 13:10-0500 Blood Pressure Location Sandoval Rae [facility] 03-23-2024 13:10-0500 Diastolic blood pressure 70 mm[Hg] Sandoval Rae [facility] 03-23-2024 13:10-0500 Heart rate 96 /min Mohamad Mouchli [facility] 03-23-2024 13:10-0500 Systolic blood pressure 102 mm[Hg] Mohamad Mouchli [facility] 02-25-2024 11:16-0500 Diastolic blood pressure 64 mm[Hg] Mohamad Mouchli [facility] 02-25-2024 11:16-0500 Heart rate 71 /min Mohamad Mouchli [facility] 02-25-2024 11:16-0500 Mean blood pressure 80 mm[Hg] Mohamad Mouchli [facility] 02-25-2024 11:16-0500 Respiratory rate 10 /min Mohamad Mouchli [facility] 02-25-2024 11:16-0500 SaO2% (BldA) [Mass fraction] 96 % Mohamad Mouchli [facility] 02-25-2024 11:16-0500 Systolic blood pressure 113 mm[Hg] Mohamad Mouchli [facility] 02-25-2024 11:05-0500 Diastolic blood pressure 75 mm[Hg] Mohamad Mouchli [facility] 02-25-2024 11:05-0500 Heart rate 73 /min Mohamad Mouchli [facility] 02-25-2024 11:05-0500 Mean blood pressure 86 mm[Hg] Mohamad Mouchli [facility] 02-25-2024 11:05-0500 Respiratory rate 18 /min Mohamad Mouchli [facility] 02-25-2024 11:05-0500 SaO2% (BldA) [Mass fraction] 95 % Mohamad Mouchli [facility] 02-25-2024 11:05-0500 Systolic blood pressure 107 mm[Hg] Mohamad Mouchli [facility] 02-25-2024 10:51-0500 Body temperature 98.24 [degF] Mohamad Mouchli [facility] 02-25-2024 10:51-0500 Diastolic blood pressure 92 mm[Hg] Mohamad Mouchli [facility] 02-25-2024 10:51-0500 Heart rate 81 /min Mohamad Mouchli [facility] 02-25-2024 10:51-0500 Mean blood pressure 96 mm[Hg] Mohamad Mouchli [facility] 02-25-2024 10:51-0500 Respiratory rate 18 /min Mohamad Mouchli [facility] 02-25-2024 10:51-0500 SaO2% (BldA) [Mass fraction] 97 % Mohamad Mouchli [facility] 02-25-2024 10:51-0500 Systolic blood pressure 103 mm[Hg] Mohamad Mouchli [facility] 02-25-2024 10:45-0500 Respiratory rate 15 /min Mohamad Mouchli [facility] 02-25-2024 10:40-0500 Respiratory rate 16 /min Mohamad Mouchli [facility] 02-25-2024 10:35-0500 Respiratory rate 17 /min Mohamad Mouchli [facility] 02-25-2024 09:14-0500 Blood Pressure Location Mohamad Mouchli [facility] 02-25-2024 09:14-0500 Body temperature 97.88 [degF] Mohamad Mouchli [facility] 02-21-2024 08:41-0500 Blood Pressure Location Mohamad Mouchli [facility] 02-21-2024 08:41-0500 Diastolic blood pressure 83 mm[Hg] Mohamad Mouchli [facility] 02-21-2024 08:41-0500 Heart rate 80 /min Mohamad Mouchli [facility] 02-21-2024 08:41-0500 Systolic blood pressure 134 mm[Hg] Mohamad Mouchli [facility] 01-16-2024 10:08-0400 Blood Pressure Location Mohamad Mouchli [facility] 01-16-2024 10:08-0400 Diastolic blood pressure 76 mm[Hg] Mohamad Mouchli [facility] 01-16-2024 10:08-0400 Heart rate 73 /min Mohamad Mouchli [facility] 01-16-2024 10:08-0400 Systolic blood pressure 116 mm[Hg] Mohamad Mouchli [facility] 09-24-2023 15:00-0400 Diastolic blood pressure 78 mm[Hg] José Luis Resendiz [facility] 09-24-2023 15:00-0400 Heart rate 66 /min José Luis Resendiz [facility] 09-24-2023 15:00-0400 Mean blood pressure 95 mm[Hg] José Luis Astrid [facility] 09-24-2023 15:00-0400 Respiratory rate 16 /min José Luis Astrid [facility] 09-24-2023 15:00-0400 Systolic blood pressure 128 mm[Hg] José Luis Astrid [facility] 09-24-2023 14:00-0400 Diastolic blood pressure 69 mm[Hg] José Luis Astrid [facility] 09-24-2023 14:00-0400 Heart rate 75 /min José Luis Astrid [facility] 09-24-2023 14:00-0400 Mean blood pressure 88 mm[Hg] José Luis Astrid [facility] 09-24-2023 14:00-0400 SaO2% (BldA) [Mass fraction] 95 % José Luis Astrid [facility] 09-24-2023 14:00-0400 Systolic blood pressure 126 mm[Hg] José Luis Astrid [facility] 09-24-2023 12:58-0400 Body temperature 98.06 [degF] José Luis Astrid [facility] 09-24-2023 12:58-0400 Diastolic blood pressure 82 mm[Hg] José Luis Astrid [facility] 09-24-2023 12:58-0400 Heart rate 89 /min José Luis Astrid [facility] 09-24-2023 12:58-0400 Respiratory rate 18 /min José Luis Astrid [facility] 09-24-2023 12:58-0400 SaO2% (BldA) [Mass fraction] 96 % José Luis Resendiz [facility] 09-24-2023 12:58-0400 Systolic blood pressure 125 mm[Hg] José Luis Resendiz [facility] 04-04-2022 15:50-0500 Diastolic blood pressure 70 mm[Hg] Tiffani Morales MD Work Phone: [facility] 04-04-2022 15:50-0500 Heart rate 73 /min Tiffani Morales MD Work Phone: [facility] 04-04-2022 15:50-0500 Respiratory rate 16 /min Tiffani Morales MD Work Phone: [facility] 04-04-2022 15:50-0500 SaO2% (BldA) [Mass fraction] 97 % Tiffani Morales MD Work Phone: [facility] 04-04-2022 15:50-0500 Systolic blood pressure 117 mm[Hg] Tiffani Morales MD Work Phone: [facility] 04-04-2022 15:26-0500 Body temperature 97.2 [degF] Tiffani Morales MD Work Phone: [facility] 04-04-2022 12:51-0500 Body height 172.7 cm Tiffani Morales MD Work Phone: [facility] 04-04-2022 12:51-0500 Body weight 45.81 kg Tiffani Morales MD Work Phone: [facility] 01-01-2022 16:50-0400 Diastolic blood pressure 69 mm[Hg] Tiffani Morales MD Work Phone: [facility] 01-01-2022 16:50-0400 Heart rate 69 /min Tiffani Morales MD Work Phone: [facility] 01-01-2022 16:50-0400 Respiratory rate 16 /min Tiffani Morales MD Work Phone: [facility] 01-01-2022 16:50-0400 SaO2% (BldA) [Mass fraction] 95 % Tiffani Morales MD Work Phone: [facility] 01-01-2022 16:50-0400 Systolic blood pressure 110 mm[Hg] Tiffani Morales MD Work Phone: [facility] 01-01-2022 16:33-0400 Body temperature 98.1 [degF] Tiffani Morales MD Work Phone: [facility] 01-01-2022 15:39-0400 Body height 172.7 cm Tiffani Morales MD Work Phone: [facility] 01-01-2022 15:39-0400 Body weight 45.81 kg Tiffani Morales MD Work Phone: [facility] 06-20-2021 13:37-0400 Body height 174 cm Robb Evans MD Work Phone: [facility] 06-20-2021 13:37-0400 Body mass index (BMI) [Ratio] 17.98 kg/m2 Robb Evans MD Work Phone: [facility] 06-20-2021 13:37-0400 Body weight 54.43 kg Robb Evans MD Work Phone: [facility] 06-20-2021 13:37-0400 Diastolic blood pressure 69 mm[Hg] Robb Evans MD Work Phone: [facility] 06-20-2021 13:37-0400 Heart rate 77 /min Robb Evans MD Work Phone: [facility] 06-20-2021 13:37-0400 Respiratory rate 16 /min Robb Evans MD Work Phone: [facility] 06-20-2021 13:37-0400 SaO2% (BldA) [Mass fraction] 95 % Robb Evans MD Work Phone: [facility] 06-20-2021 13:37-0400 Systolic blood pressure 102 mm[Hg] Robb Evans MD Work Phone: [facility] 07-18-2020 14:10-0400 Body height 174 cm Robb Evans MD Work Phone: [facility] 07-18-2020 14:10-0400 Body mass index (BMI) [Ratio] 17.38 kg/m2 Robb Evans MD Work Phone: [facility] 07-18-2020 14:10-0400 Body weight 52.62 kg Robb Evans MD Work Phone: [facility] 07-18-2020 14:10-0400 Diastolic blood pressure 68 mm[Hg] Robb Evans MD Work Phone: [facility] 07-18-2020 14:10-0400 Heart rate 84 /min Robb Evans MD Work Phone: [facility] 07-18-2020 14:10-0400 Respiratory rate 16 /min Robb Evans MD Work Phone: [facility] 07-18-2020 14:10-0400 SaO2% (BldA) [Mass fraction] 96 % Robb Evans MD Work Phone: [facility] 07-18-2020 14:10-0400 Systolic blood pressure 94 mm[Hg] Robb Evans MD Work Phone: [facility] Encounters Encounter Date Encounter Type Care Provider Facility Start: 05-12-2024 End: 05-12-2024 ambulatory Lala L Carolee Facility:[facility] Shirley farfan Start: 05-11-2024 ambulatory Lala L Carolee Facility: CD:[id number] Start: 03-23-2024 End: 03-23-2024 ambulatory Sandoval Rae Facility:[facility] Start: 03-23-2024 End: 03-23-2024 Patient encounter procedure Sandoval Rae [facility] Start: 03-15-2024 End: 03-15-2024 ambulatory Eligioulices Wayneeck Facility:[facility] Start: 02-25-2024 End: 02-25-2024 ambulatory Sandoval Rae Facility[facility] Start: 02-25-2024 End: 02-25-2024 Patient encounter procedure Sandoval Rae [facility] Start: 02-21-2024 End: 02-21-2024 [facility] Start: 02-21-2024 End: 02-21-2024 Patient encounter procedure Sandoval Rae [facility] Start: 02-18-2024 End: 02-18-2024 ambulatory Lala L Carolee [facility] Start: 02-05-2024 End: 02-05-2024 ambulatory Sandoval Rae Facility:[facility] Start: 02-05-2024 End: 02-05-2024 Patient encounter procedure Sandoval Rae [facility] Start: 01-27-2024 End: 01-27-2024 ambulatory Sandoval Rae Facility:[facility] Start: 01-27-2024 End: 01-27-2024 Patient encounter procedure Sandoval Rae [facility] Start: 01-16-2024 End: 01-16-2024 ambulatory Mohemekad A. Butch Facility:[facility] Start: 01-16-2024 End: 01-16-2024 Patient encounter procedure Mohamad A. Modestinee [facility] Start: 11-26-2023 End: 11-26-2023 ambulatory Lala L Carolee Facility:[facility] Start: 10-03-2023 End: 10-03-2023 ambulatory Lala L Carolee Facility:[facility] Start: 09-27-2023 ambulatory CHANCE ZACH Facility:[facility] Start: 09-24-2023 End: 09-24-2023 Emergency department patient visit José Luis Resendiz [facility] Start: 05-08-2022 Telephone encounter Tiffani valencia MD Work Phone: Gastroenterology Comment on above: Patient Question Start: 05-07-2022 End: 05-08-2022 ambulatory IRINA SEGURA Facility:[facility] Start: 04-24-2022 End: 04-24-2022 ambulatory CRISTINA ALEE PRECIADOBoyd Facility:[facility] Start: 04-24-2022 End: 04-24-2022 Nutrition therapy Tiffani Morales MD Work Phone: Gastroenterology Comment on above: Severe malnutrition (HCC) (Primary Dx) Start: 04-24-2022 End: 04-24-2022 Telemedicine consultation with patient Tiffani Morales MD Work Phone: [facility] Start: 04-20-2022 Refill Robb Evans MD Work Phone: [facility] Start: 04-12-2022 Refill Saúl SHORT [facility] Comment on above: Generalized anxiety disorder Start: 04-05-2022 Telephone encounter Tiffani valencia MD Work Phone: Gastroenterology Comment on above: Refill Request Start: 04-04-2022 End: 04-04-2022 ambulatory FREDERICK G ANASTACIO Facility:[facility] Start: 04-04-2022 End: 04-04-2022 Subsequent hospital visit by physician Tiffani Morales MD Work Phone: Gastroenterology Comment on above: 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] Start: 03-31-2022 End: 04-01-[address] DOCTOR BERMEO Facility:[facility] Start: 03-28-2022 End: 03-29-[address] BRITNI SIMPSON Facility:[facility] Start: 03-28-2022 Telephone encounter Eduardo Harrington RNsenior systems architect Comment on above: Appointment Confirmsrini tironald Start: 03-20-2022 Refill Saúl Kaur DEJA [facility] Start: 03-14-2022 Refill Anastasiya Davidi PA-C Work Phone: Gastroenterology Comment on above: Refill Request Start: 03-09-2022 Refill Gokul Maurilio [facility]AMP[facility] Comment on above: Generalized anxiety disorder Start: 03-01-2022 End: 03-01-2022 [facility] Start: 03-01-2022 End: 03-01-2022 Nutrition therapy Tiffani Morales MD Work Phone: Gastroenterology Comment on above: Severe protein-calor ie malnutrition (HCC) (Primary Dx); 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); Weight loss; Severe malnutrition (HCC) Start: 03-01-2022 End: 03-01-2022 Telemedicine consultation with patient Tiffani Morales MD Work Phone: [facility] Start: 02-07-2022 ambulatory Yan wood MD Work Phone: Gastroenterology Start: 02-07-2022 Patient encounter procedure Yan Garcia Jr., MD Work Phone: [facility] Start: 02-07-2022 Refill Anastasiya Nolani PA-C Work Phone: Gastroenterology Comment on above: Refill Request Start: 02-06-2022 End: 02-07-2022 [facility] Start: 02-05-2022 End: 02-05-2022 ambulatory [facility]rini [facility] Start: 01-29-2022 ambulatory Dolores Lopez RN Gastr oenterology Start: 01-29-2022 Patient encounter procedure Dolores Lopez RN [facility] Start: 01-29-2022 End: 01-29-2022 Subsequent hospital visit by physician Capsule Work Phone: Gastroenterology Comment on above: Arrived Start: 01-17-2022 ambulatory Roshni Milligan Alphonso Reyes ty:[facility] Start: 01-16-2022 Refill Gokul Maurilio [facility] Start: 01-05-2022 Telephone encounter Anastasiya [...] 01-01-2022 End: 01-01-2022 ambulatory KIRSTEN Milligan SJSrini Facility:[facility] Start: 01-01-2022 End: 01-01-2022 Subsequent hospital visit by physician Tiffani Morales MD Work Phone: Gastroenterology Comment on above: Nausea and vomiting, unspecified vomiting type [R11.2] Start: 12-25-2021 Telephone encounter Rima Gerard RNsenior systems architect Comment on above: Appointment Start: 12-19-2021 End: 12-19-2021 ambulatory CRISTINA TATUMSOPHIE [facility] Start: 12-15-2021 End: 12-16-2021 ambulatory Anastasiya Mosqueda PA-C Work Phone: Gastroenterology Comment on above: Nausea and vomiting, unspecified vomiting type (Primary Dx); Left upper quadrant abdominal pain; Weight loss Start: 12-15-2021 End: 12-15-2021 Telemedicine consultation with patient Anastasiya Jaylin PA-C Work Phone: [facility] Start: 12-14-2021 End: 12-14-2021 ambulatory ANASTASIYA MOSQUEDA Facility:[facility] Start: 12-14-2021 End: 12-14-2021 Patient encounter procedure Anastasiya Mosqueda PA-C Work Phone: Gastroenterology Comment on above: APPOINTMENT CANCELLE D (Primary Dx) Start: 12-14-2021 End: 12-14-2021 Telemedicine consultation with patient Anastasiya Mosqueda PA-C Work Phone: [facility] Start: 12-13-2021 Telephone encounter Anastasiya kimbrough PA-C Work Phone: Gastroenterology Comment on above: Appointment Start: 12-11-2021 End: 12-11-2021 ambulatory CORPORATE DIRECTOR OF PHARMACY CRISTINA [facility] Facility:[facility] Start: 12-03-2021 End: 12-03-2021 Emergency department patient visit Vipin Pina Facility:[facility] Start: 11-14-2021 End: 11-14-2021 ambulatory CORPORATE DIRECTOR OF PHARMACY CRISTINA ERWINMARYAMBoyd Facility:[facility] Start: 11-09-2021 End: 11-09-2021 ambulatory CORPORATE DIRECTOR OF PHARMACY CRISTINA ERWINHOLZ Facility:[facility] Start: 10-04-2021 End: 10-04-2021 ambulatory CORPORATE DIRECTOR OF PHARMACY CRISTINA ERWINHOLZ Facility:[facility] Start: 10-03-2021 Refill Robb Evans MD Work Phone: [facility] Start: 09-27-2021 Documentation procedure Zuleyma Evans MD Work Phone: [facility] Start: 09-25-2021 End: 09-26-2021 ambulatory ROBB EVANS Facility:[facility] Start: 09-19-2021 End: 09-19-2021 ambulatory [facility] Start: 09-19-2021 End: 09-19-2021 Office outpatient visit 25 minutes Robb Evans MD Work Phone: [facility] Comment on above: Bipolar 1 disorder, mixed, mild (HCC) (Primary Dx); Generalized anxiety disorder; Long-term use of high-risk medication Start: 09-15-2021 Refill Fartun Mack LPN [facility] Comment on above: Generalized anxiety disorder Start: 06-20-2021 End: 06-20-2021 ambulatory CRISTINA Saleh [facility] Start: 06-20-2021 End: 06-20-2021 Office outpatient visit 25 minutes Robb Evans MD Work Phone: [facility] Comment on above: Generalized anxiety disorder (Primary Dx); Bipolar 1 disorder, mixed, mild (HCC); Long-term use of high-risk medication; Post traumatic stress disorder (PTSD) Start: 04-03-2021 Refill Gokul Maurilio [facility]AMP[facility] Comment on above: Generalized anxiety disorder Start: 03-01-2021 End: 03-01-2021 Phys/qhp telephone evaluation 11-20 min Robb Evans MD Work Phone: [facility] Comment on above: Bipolar 1 disorder, mixed, mild (HCC) (Primary Dx); Generalized anxiety disorder; Long-term use of high-risk medication Start: 03-01-2021 End: 03-01-2021 [facility] Start: 01-31-2021 Refill Gokul Maurilio [facility] Comment on above: Generalized anxiety disorder Start: 12-29-2020 Refill Gokul Maurilio [facility] Comment on above: Generalized anxiety disorder Start: 08-22-2020 End: 08-22-2020 Phys/qhp telephone evaluation 11-20 min Robb Evans MD Work Phone: [facility] Comment on above: 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); Generalized anxiety disorder; Long-term use of high-risk medication Start: 07-18-2020 End: 07-18-2020 Office outpatient visit 25 minutes Robb Evans MD Work Phone: [facility] Comment on above: Generalized [...] Screening for malign ant neoplasm of colon [facility] Start: 04-27-2022 End: 04-27-2022 Patient encounter procedure 04/27/2022 Office Visit Psychiatry Robb Evans MD [address] [place] [address] [facility] Start: 03-26-2022 End: 03-26-2022 Patient encounter procedure 03/26/2022 Office Visit Psychiatry Robb Evans MD [address] [place] [address] [facility] Start: 03-18-2022 DEPRESSION ASSESSMENT DEPRESSION ASS [facility] Start: 03-02-2022 End: 03-01-2023 25-hydroxyvitamin D3 [Mass/volume] in Serum or Plasma VITAMIN D 25 HYDROXY Lab Routine Severe protein-calorie malnutrition (HCC) Expected: 03/02/2022 (Approximate), Expires: 03/01/2023 [facility] Work Phone: Comment on above: Expected: 03/02/2022 (Approximate), Expires: 03/01/2023 Start: 03-02-2022 End: 03-01-2023 Alpha tocopherol [Mass/volume] in Serum or Plasma VITAMIN E/TOCOPHEROL Lab Routine Severe protein-calorie malnutrition (HCC) Expected: 03/02/2022 (Approximate), Expires: 03/01/2023 [facility] Work Phone: Comment on above: Expected: 03/02/2022 (Approximate), Expires: 03/01/2023 Start: 03-02-2022 End: 03-01-2023 C reactive protein [Mass/volume] in Serum or Plasma C-REACTIVE PROTEIN (CRP) Lab Routine Severe protein-calorie malnutrition (HCC) Expected: 03/02/2022 (Approximate), Expires: 03/01/2023 [facility] Work Phone: Comment on above: Expected: 03/02/2022 (Approximate), Expires: 03/01/2023 Start: 03-02-2022 End: 03-01-2023 CBC W Auto Differential panel - Blood CBC + DIFF Lab Routine Severe protein-calorie malnutrition (HCC) Expected: 03/02/2022 (Approximate), Expires: 03/01/2023 [facility] Work Phone: Comment on above: Expected: 03/02/2022 (Approximate), Expires: 03/01/2023 Start: 03-02-2022 End: 03-01-2023 Cobalamin (Vitamin B12) [Mass/volume] in Serum or Plasma VITAMIN B12 BLOOD Lab Routine Severe protein-calorie malnutrition (HCC) Expected: 03/02/2022 (Approximate), Expires: 03/01/2023 [facility] Work Phone: Comment on above: Expected: 03/02/2022 (Approximate), Expires: 03/01/2023 Start: 03-02-2022 End: 03-01-2023 Comprehensive metabolic 2000 panel - Serum or Plasma COMP METABOLIC PANEL Lab Routine Severe protein-calorie malnutrition (HCC) Expected: 03/02/2022 (Approximate), Expires: 03/01/2023 [facility] Work Phone: Comment on above: Expected: 03/02/2022 (Approximate), Expires: 03/01/2023 Start: 03-02-2022 End: 03-01-2023 COPPER BLOOD COPPER BLOOD Lab Routine Severe protein-calorie malnutrition (HCC) Expected: 03/02/2022 (Approximate), Expires: 03/01/2023 [facility] Work Phone: Comment on above: Expected: 03/02/2022 (Approximate), Expires: 03/01/2023 Start: 03-02-2022 End: 03-01-2023 FATTY ACIDS PROFILE, ESSENTIAL FATTY ACIDS PROFILE, ESSENTIAL Lab Routine Severe protein-calorie malnutrition (HCC) Expected: 03/02/2022 (Approximate), Expires: 03/01/2023 [facility] Work Phone: Comment on above: Expected: 03/02/2022 (Approximate), Expires: 03/01/2023 Start: 03-02-2022 End: 03-01-2023 Ferritin [Mass/volume] in Serum or Plasma FERRITIN BLD Lab Routine Severe protein-calorie malnutrition (HCC) Expected: 03/02/2022 (Approximate), Expires: 03/01/2023 [facility] Work Phone: Comment on above: Expected: 03/02/2022 (Approximate), Expires: 03/01/2023 Start: 03-02-2022 End: 03-01-2023 Iron and Iron binding capacity panel - Serum or Plasma IRON + TIBC Lab Routine Severe protein-calorie malnutrition (HCC) Expected: 03/02/2022 (Approximate), Expires: 03/01/2023 [facility] Work Phone: Comment on above: Expected: 03/02/2022 (Approximate), Expires: 03/01/2023 Start: 03-02-2022 End: 03-01-2023 Magnesium [Mass/volume] in Serum or Plasma MAGNESIUM BLD Lab Routine Severe protein-calorie malnutrition (HCC) Expected: 03/02/2022 (Approximate), Expires: 03/01/2023 [facility] Work Phone: Comment on above: Expected: 03/02/2022 (Approximate), Expires: 03/01/2023 Start: 03-02-2022 End: 03-01-2023 Methylmalonate [Moles/volume] in Serum or Plasma METHYLMALONIC ACID Lab Routine Severe protein-calorie malnutrition (HCC) Expected: 03/02/2022 (Approximate), Expires: 03/01/2023 [facility] Work Phone: Comment on above: Expected: 03/02/2022 (Approximate), Expires: 03/01/2023 Start: 03-02-2022 End: 03-01-2023 Phosphate [Mass/volume] in Serum or Plasma PHOSPHORUS INORGANIC Lab Routine Severe protein-calorie malnutrition (HCC) Expected: 03/02/2022 (Approximate), Expires: 03/01/2023 [facility] Work Phone: Comment on above: Expected: 03/02/2022 (Approximate), Expires: 03/01/2023 Start: 03-02-2022 End: 03-01-2023 PT panel - Platelet poor plasma by Coagulation assay PROTHROMBIN TIME/PT Lab Routine Severe protein-calorie malnutrition (HCC) Expected: 03/02/2022 (Approximate), Expires: 03/01/2023 [facility] Work Phone: Comment on above: Expected: 03/02/2022 (Approximate), Expires: 03/01/2023 Start: 03-02-2022 End: 03-01-2023 RBC FOLATE RBC FOLATE Lab Routine Severe protein-calorie malnutrition (HCC) Expected: 03/02/2022 (Approximate), Expires: 03/01/2023 [facility] Work Phone: Comment on above: Expected: 03/02/2022 (Approximate), Expires: 03/01/2023 Start: 03-02-2022 End: 03-01-2023 Retinol [Mass/volume] in Serum or Plasma VITAMIN A/RETINOL Lab Routine Severe protein-calorie malnutrition (HCC) Expected: 03/02/2022 (Approximate), Expires: 03/01/2023 [facility] Work Phone: Comment on above: Expected: 03/02/2022 (Approximate), Expires: 03/01/2023 Start: 03-02-2022 End: 03-01-2023 Selenium [Mass/volume] in Blood SELENIUM BLOOD Lab Routine Severe protein-calorie malnutrition (HCC) Expected: 03/02/2022 (Approximate), Expires: 03/01/2023 [facility] Work Phone: Comment on above: Expected: 03/02/2022 (Approximate), Expires: 03/01/2023 Start: 03-02-2022 End: 03-01-2023 Triglyceride [Mass/volume] in Serum or Plasma TRIGLYCERIDES BLD Lab Routine Severe protein-calorie malnutrition (HCC) Expected: 03/02/2022 (Approximate), Expires: 03/01/2023 [facility] Work Phone: Comment on above: Expected: 03/02/2022 (Approximate), Expires: 03/01/2023 Start: 03-02-2022 End: 03-01-2023 Zinc [Mass/volume] in Serum or Plasma ZINC BLD Lab Routine Severe protein-calorie malnutrition (HCC) Expected: 03/02/2022 (Approximate), Expires: 03/01/2023 [facility] Work Phone: Comment on above: Expected: 03/02/2022 (Approximate), Expires: 03/01/2023 Start: 12-19-2021 End: 12-19-2021 Patient encounter procedure 12/19/2021 Office Visit Robb Patton MD [address] [facility] [address] [place] [id number] [facility] Start: 11-16-2021 Influenza vaccination [facility] Start: 09-19-2021 End: 09-19-2021 Patient encounter procedure 09/19/2021 Office Visit Robb Patton MD [address] [facility] [address] [place] [id number] [facility] Start: 09-15-2021 End: 09-15-2021 Patient encounter procedure 09/15/2021 Office Visit Robb Patton MD [address] [facility] [address] [place] [phone] [facility] Start: 05-30-2021 End: 05-30-2021 Patient encounter procedure 05/30/2021 Office Visit Robb Patton MD [address] [facility] [address] [place] [phone] [facility] Start: 03-18-2021 DEPRESSION ASSESSMENT DEPRESSION ASS ESSMENT [facility] Start: 02-17-2021 End: 02-17-2021 Patient encounter procedure 02/17/2021 Office Visit Robb Patton MD [address] [facility] [address] [place] [id number] [facility] Start: 02-03-2021 End: 02-03-2021 Patient encounter procedure 02/03/2021 Office Visit Robb Patton MD [address] [place] [address] [facility] Start: 11-16-2020 Influenza vaccination [facility] Start: 10-28-2020 End: 10-28-2020 Patient encounter procedure 10/28/2020 Office Visit Psychiatry Robb Evans MD [address] [place] [address] [phone] [facility] Start: 2020 Administration of he rpes zoster vaccine Zoster Vaccines (1 of 2) [facility] Start: 2020 Screening for malign ant neoplasm of colon [facility] Start: 2020 SHINGRIX VACCINE (1 of 2) SHINGRIX VACCINE (1 of 2) [facility] Start: 08-22-2020 End: 08-22-2020 Telemedicine consultation with patient 08/22/2020 Telemedicine Psychiatry Robb Evans MD [address] [place] [address] [phone] [facility] Start: 10-07-2015 COLOGUARD (FIT-DNA) COLOGUARD (FIT-D NA) [facility] Start: 10-07-2015 Colonoscopy COLONOSCOPY [facility] Start: 10-07-2015 COLORECTAL CANCER SCREENING COLORECTAL CANCER SCREENING [facility] Start: 10-07-[address] COLONOGRAPHY [facility] Start: 10-07-2015 DIABETES SCREEN DIABETES SCREEN [facility] Start: 10-07-2015 FECAL OCCULT BLOOD FECAL OCCULT BLOO D [facility] Start: 10-07-2015 LIPID SCREEN LIPID SCREEN [facility] Start: 10-07-2015 SIGMOIDOSCOPY SIGMOIDOSCOPY [facility] Start: 01-02-2015 PAP TESTING PAP TESTING [facility] Start: 2010 Mammography MAMMOGRAM [facility] Start: 2010 Screening for malign ant neoplasm of breast Mammogram [facility] Start: 2010 Screening mammography Mammogram [facility] Start: 2000 HPV TESTING HPV TESTING [facility] Start: 1989 Urine microalbumin profile DTAP,TDAP,TD (1 - Tdap) [facility] Start: 1988 Hepatitis C screening Hepatitis C Sc reening [facility] Start: 1988 HIV SCREENING HIV SCREENING [facility] Start: 1986 COVID-19 Vaccine (1) COVID-19 Vaccin e (1) [facility] Start: 1985 HIV screening HIV Screening [facility] Start: 1982 COVID-19 Vaccine (1) COVID-19 Vaccin e (1) [facility] Start: 1976 PNEUMOCOCCAL (1 - PCV) PNEUMOCOCCAL (1 - PCV) [facility] Start: 1976 Pneumococcal Vaccine : Ped or At-Risk (1 - PCV) Pneumococcal Vaccine: Ped or At-Risk (1 - PCV) [facility] Start: 1976 Pneumococcal Vaccine : Ped or At-Risk (1 of 2 - PPSV23) Pneumococcal Vaccine: Ped or At-Risk (1 of 2 - PPSV23) [facility] Start: 1976 Pneumococcal Vaccine : Ped or At-Risk (1 of 4 - PCV13) Pneumococcal Vaccine: Ped or At-Risk (1 of 4 - PCV13) [facility] Start: 10-07-1975 COVID-19 Vaccine (1) COVID-19 Vaccin e (1) [facility] Start: 1973 History and physical examination, annual for health maintenance Wellness Visit [facility] Start: 04-08-1971 COVID-19 Vaccine (#1) COVID-19 Vacci ne (#1) [facility] Start: 1970 HEPATITIS B (1 of 3 - 3-dose series) HEPATITIS B (1 of 3 - 3-dose series) [facility] Start: 1970 Screening for malign ant neoplasm of cervix Pap Smear [facility] Start: 1970 Screening for malign ant neoplasm of colon [facility] Start: 1970 Screening mammography Mammogram [facility] Start: 1970 Tetanus vaccination Tetanus: Every 1 0yrs [facility] End: 09-19-2022 Comprehensive metabolic 2000 panel - Serum or Plasma Comprehensive Metabolic Panel Lab Routine Generalized anxiety disorder Long-term use of high-risk medication Bipolar 1 disorder, mixed, mild (HCC) 1 Occurrences starting 09/19/2021 until 09/19/2022 [facility] Comment on above: 1 Occurrences starti ng 09/19/2021 until 09/19/2022 End: 04-01-2023 Ct abdomen & pelvis w/contrast material CT ENTEROGRAPHY W IVCON Radiology Routine 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) Weight loss 1 Occurrences starting 03/02/2022 until 04/01/2023 [facility] Work Phone: Comment on above: 1 Occurrences starti ng 03/02/2022 until 04/01/2023 End: 12-15-2022 EGD DIAGNOSTIC EGD DIAGNOSTIC Endoscopy Routine Nausea and vomiting, unspecified vomiting type Left upper quadrant abdominal pain 1 Occurrences starting 12/15/2021 until 12/15/2022 [facility] Work Phone: Comment on above: 1 Occurrences starti ng 12/15/2021 until 12/15/2022 End: 03-02-2023 ENTEROSCOPY ENTEROSCOPY Endoscopy Routine 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) 1 Occurrences starting 03/02/2022 until 03/02/2023 [facility] Work Phone: Comment on above: 1 Occurrences starti ng 03/02/2022 until 03/02/2023 FAT, FECAL QUAL FAT, FECAL QUAL Lab Routine Weight loss Ordered: 01/05/2022 [facility] Work Phone: Comment on above: Ordered: 01/05/2022 End: 02-04-2023 Gastric emptying imaging study NM GASTRIC EMPTYING SOLID Radiology Routine Nausea 1 Occurrences starting 01/05/2022 until 02/04/2023 [facility] Work Phone: Comment on above: 1 Occurrences starti ng 01/05/2022 until 02/04/2023 End: 01-05-2023 Gi imag intraluminal esophagus-ileum w/i&r CAPSULE ENDOSCOPY SMALL BOWEL Endoscopy Routine Small bowel polyp 1 Occurrences starting 01/05/2022 until 01/05/2023 [facility] Work Phone: Comment on above: 1 Occurrences starti ng 01/05/2022 until 01/05/2023 End: 09-19-2022 Lipid 1996 panel - Serum or Plasma Lipid Panel Lab Routine Generalized anxiety disorder Long-term use of high-risk medication Bipolar 1 disorder, mixed, mild (HCC) 1 Occurrences starting 09/19/2021 until 09/19/2022 [facility] Comment on above: 1 Occurrences starti ng 09/19/2021 until 09/19/2022 PANC ELASTASE, FECAL PANC ELASTA SE, FECAL Lab Routine Weight loss Ordered: 01/05/2022 [facility] Work Phone: Comment on above: Ordered: 01/05/2022 End: 09-19-2022 Prolactin [Mass/volume] in Serum or Plasma Prolactin Lab Routine Generalized anxiety disorder Long-term use of high-risk medication Bipolar 1 disorder, mixed, mild (HCC) 1 Occurrences starting 09/19/2021 until 09/19/2022 [facility] Work Phone: Comment on above: 1 Occurrences starti ng 09/19/2021 until 09/19/2022 End: 04-01-2023 Radiologic exam chest 2 views XR CHEST 2V FRONTAL/LAT Radiology Routine Weight loss 1 Occurrences starting 03/02/2022 until 04/01/2023 [facility] Work Phone: Comment on above: 1 Occurrences starti ng 03/02/2022 until 04/01/2023 SURGICAL PATHOLOGY [facility] Work Phone: Comment on above: Release Upon Orderin g for 1 Occurrences starting 01/01/2022, 1 completed SURGICAL PATHOLOGY [facility] Work Phone: Comment on above: Release Upon Orderin g for 1 Occurrences starting 04/04/2022, 1 completed [facility] Immunizations Immunization Date Immunization Notes Care Provider Dany ordoñez 10-10-2022 tetanus toxoid, reduced diphtheria toxoid, and acellular pertussis vaccine, adsorbed Sandoval Rae [facility] Rashaun NEGATED: Highlighted row has not occurred!01-16-2024 influenza virus vaccine, unspecified formulation Sandoval Rae [facility] NEGATED: Highlighted row has not occurred!05-24-2020 influenza virus vaccine, unspecified formulation José Luis Resendiz [facility] Payers Date Payer Category Payer Self-pay 2017 Medicaid [id number] 2017 Medicaid [id number] 1970 Unknown [id number] 2.16.8 40.1.125445.3.579.2.727 1970 Unknown [id number] 2.16.8 40.1.858065.3.579.2.727 1970 Unknown [id number] 2.16. 840.1.101741.3.579.2.903 1970 Unknown [id number] 2.16. 840.1.815414.3.579.2.903 1970 Unknown [id number] 2.16. 840.1.813226.3.579.2.903 1970 Unknown [id number] 2.16. 840.1.910524.3.579.2.903 1970 Unknown [id number] 2.16.84 0.1.093480.3.579.2.593 1970 Unknown [id number] 2.16.84 0.1.605505.3.579.2.593 1970 Unknown [id number] 2.16.84 0.1.670150.3.579.2.593 1970 Unknown [id number] 2.16.84 0.1.113867.3.579.2.593 1970 Unknown [id number] 2.16.84 0.1.106484.3.579.2.593 1970 Unknown [id number] 2.16.84 0.1.113516.3.579.2.593 1970 Unknown [id number] 2.16.84 0.1.871655.3.579.2.593 1970 Unknown [id number] 2.16.84 0.1.638229.3.579.2.593 1970 Unknown [id number] 2.16.8 40.1.806173.3.579.2.727 1970 Unknown [id number] 2.16.8 40.1.983500.3.579.2.727 1970 Unknown [id number] 2.16.8 40.1.851414.3.579.2.727 1970 Unknown [id number] 2.16.8 40.1.631249.3.579.2.727 1970 Unknown [id number] 2.16.8 40.1.274510.3.579.2.727 1970 Unknown [id number] 2.16.8 40.1.053834.3.579.2.727 1970 Unknown [id number] 2.16.8 40.1.103077.3.579.2.727 1970 Unknown [id number] 2.16.8 40.1.009137.3.579.2.727 1970 Unknown [id number] 2.16.8 40.1.192308.3.579.2.727 1970 Unknown [id number] 2.16.8 40.1.967437.3.579.2.727 1959 Unknown [id number] 1959 Unknown [id number] Unknown [id number] 2.16.8 40.1.680726.3.579.2.531 Social History Date Type Detail Facility Start: 07-18-2020 End: 01-01-2022 Tobacco smoking status KYIS Current every day smoker [facility] Start: 07-18-2020 End: 01-01-2022 Tobacco use and exposure Never used [facility] Start: 07-18-2020 End: 04-04-2022 Alcohol intake Ex-drinker (finding) [facility] Start: 1970 Sex Assigned At Not on file [facility] Start: 09-09-2021 End: 02-05-2022 Exposure to SARS-CoV-2 (event) Not sure [facility] Start: 12-03-2021 End: 12-14-2021 Exposure to SARS-CoV-2 (event) Unable to assess [facility] Start: 06-10-2021 End: 06-20-2021 Exposure to SARS-CoV-2 (event) Yes [facility] Tobacco smoking stat [facility] Tobacco smoking consumption unknown [facility] Start: 1970 Sex Assigned At [facility] History of tobacco use Cigarette Smoker [facility] Start: 01-01-2022 Cigarettes smoked current (pack per day) - Reported 0.5 [facility] History of tobacco use Passive smoker [facility] Start: 09-24-2023 Tobacco smoking status Ex-smoker (fi nding) [facility] Comment on above: quit smoking 2023 Sex Assigned At Female [facility] Start: 01-16-2024 End: 03-23-2024 Tobacco smoking status Light tobacco smoker (finding) [facility] Tobacco smoking status Never [facility] Functional Status Date Assessment Result Facility 03-23-2024 Functional Status N/A [facility] 02-25-2024 Functional Status N/A [facility] 02-21-2024 Functional Status N/A [facility] 01-16-2024 Functional Status N/A [facility] 09-24-2023 Functional Status N/A [facility] Clinical Notes 07-20-2020 to 02-25-2024 Note Date & Type Note Facility 02-25-2024 Evaluation + Plan note Extrac kitty from: Title:TANISHA Post-operative Note---General Author: Dakota Rivas MD Date:02/25/24 Plan Transfer/Discharge: Transfer/Discharge Discharge when meets criteria ( To home ). Extracted from: Title:ANES Pre-operative Note 2022 Author:Dakota Rhoades. Date:02/25/24 Plan [place] [employer]esthesi[employer] (ASA) physical status classification: Class III. Anesthetic Preoperative Plan: Anesthesia General. Future Scheduled Tests Laboratory* Giardia lamblia, Direct Detection EIA 11/26/23 * O & P Exam, Routine 11/26/23 * Rotavirus Ab 11/26/23 * Clostridium Difficile PCR 11/26/23 Radiology* CT Abdomen/Pelvis w/contrast (enterography) 01/30/24 * XR Small Bowel w/ Serial Films 02/10/24 [facility] 12-10-2024 Hospital Discharge instructions Patient Education 02/25/2024 [...] hard liquor (44 mL). General instructions Take sypl-cit-iasinyw and prescription medicines only as told by [...] provider. Document Revised: 06/22/2020 Document Reviewed: 06/22/2020 [employer] Patient Education 2023 [employer]. 02/25/2024 11:02:55 Hiatal Hernia Hiatal Hernia A [...] reduce GERD symptoms. Medicines. These may include: ?Tlen-mrr-hgdthwc antacids. ?Medicines that make your stomach empty [...] may include: ?Fatty foods, like fried foods. ?Sampson fruits, like oranges or lemon. ?Other foods [...] Do not drink alcohol. General instructions Take goka-wcg-evswpiu and prescription medicines only as told by [...] provider. Document Revised: 05/01/2022 Document Reviewed: 05/01/2022 [employer]y Patient Education 2023 [employer]. 02/25/2024 11:02:51 Gastritis, Adult, Tumx-gl-Kxmq Gastritis, Adult Gastritis is irritation and swelling [...] Follow these instructions at home: Medicines Take quza-jxg-drkasvi and prescription medicines only as told by [...] provider. Document Revised: 07/08/2021 Document Reviewed: 07/08/2021 [employer]y Patient Education 2023 [employer]. 02/25/2024 11:02:46 Endoscopy, Care After Procedure [facility] Endoscopy Care After Procedure Please read the instructions outlined below and refer to this sheet in the next few weeks. These discharge instructions provide you with general information on caring [facility] Your doctor may also give you specific [...] Document Re-Released: 08/26/2006 ExitCare Patient Information 2009 [employer]. [facility] [id number] NoteProgress Note-Physician Patient: SAI PINEDA Age: 53 years Sex: Female : 1970 Associated Diagnoses: None Author: Rob SANDOVAL, Dakota Shoemaker Postoperative Information Postoperative disposition: Postoperative disposition: To PACU. Optimetrix number: Optimetrix number [id number]. Anesthetic utilized: General. Health Status Allergies: Allergic [...] Discharge when meets criteria ( To home ).[facility]Result Comment: Electronically Signed By: Rob SANDOVAL, Dakota Shoemaker\.br\Date and Time Signed: 02/25/24 11:49 EST 02-25-2024 NotePatient Education - Text Endoscopy Care After Procedure Please read the instructions outlined below and refer to this sheet in the next few weeks. These discharge instructions provide you with general information on caring [facility] Your doctor may also give you [...] blood. Document Released: 10/16/2004 Document Re-Released: 08/26/2006 ExitCare??? Patient Information ???2009 [employer]. Gastroenterology Hiatal Hernia A hiatal hernia occurs [...] symptoms. ??? Medicines. These may include: ? Olkq-ens-ddwsafe antacids. ? Medicines that make your stomach [...] your health care provide (more content not included)...[facility] NoteProgress Note-Physician Patient: SAI PINEDA Age: 53 years Sex: Female : 1970 Associated Diagnoses: None Author: Dakota Rivas MD Preoperative Information Anesthesia Preop Info: Time patient [...] day(s), # 56 tab(s), Refills(s) 0, [id number], 169, cm, 02/21/24 8:47:00 EST, Height/Length Dosing, 62.2, kg, 02/21/24 8:47:00 EST, Weight Dosing Questran 4 g/9 g oral powder: = 1 packet(s), Oral, BID, # 60 EA, Refills(s) 2, [id number], 169, cm, 01/16/24 10:14:00 EDT, Height/Length Dosing, 63.9, kg, 01/16/24 10:14:00 EDT, Weight Dosing Spiriva Respimat 60 ACT 2.5 mcg/inh inhalation aerosol: = 2 inh, Inhalation, Daily, # 4 gm, Refills(s) 11, [id number], 169.7, cm, 11/26/23 15:32:00 EDT, Height/Length Dosing, 62.1, kg, 11/26/23 15:32:00 EDT, Weight Dosing Zofran 4 mg Tab: 4 mg = 1 tab(s), Oral, q8hr, PRN Nausea, # 10 tab(s), Refills(s) 0, [id number], 173, cm, 04/26/20 13:07:00 EST, Height/Length Dosing, 52.8, kg, 04/26/20 13:07:00 EST, Weight Dosing Zofran ODT 4 mg Tab-Dis: 4 mg = 1 tab(s), Oral, TID, # 15 tab(s), Refills(s) 0, [id number], 172, cm, 09/24/23 13:02:00 EDT, Height/Length Dosing, 61.2, kg, 09/24/23 13:02:00 EDT, Weight Dosing Zofran ODT 8 mg Tab-Dis: 8 mg = 1 tab(s), SubLingual, q8hr, PRN Nausea/Vomiting, # 24 tab(s), Refills(s) 0, [id number], 169, cm, 01/16/24 10:14:00 EDT, Height/Length Dosing, 63.9, kg, 10/31/24 10:14:00 EDT, Weight Dosing cloNIDine 0.2 mg Tab: 0.2 mg = 1 tab(s), Oral, Bedtime, # 30 tab(s), Refills(s) 1, [id number], 173, cm, 05/24/20 14:42:00 EST, Height/Length Dosing, 50.1, kg, 05/24/20 14:42:00 EST,Weight Dosing colestipol 1 g Tab: 2 gm = 2 tab(s), Oral, BID, with a full glass of water, # 120 tab(s), Refills(s) 1, [id number], 169, cm, 01/16/24 10:14:00 EDT, Height/Length Dosing, 63.9, kg, 01/16/24 10:14:00 EDT, Weight Dosing hydrOXYzine hydrochloride 50 mg oral tablet: 50 mg = 1 tab(s), Oral, TID, PRN as needed for anxiety, # 30 tab(s), Refills(s) 0, [id number], 173, cm, 04/26/20 13:07:00 EST, Height/Length Dosing, 52.8, kg, 04/26/20 13:07:00 EST, Weight Dosing lamotrigine 25 mg Tab: See Instructions, TAKE 1 TABLET BY MOUTH EVERY DAY IN THE AFTERNOON, # 30 tab(s), Refills(s) 0, Pharmacy: [id number], 169.7, cm, 11/26/23 15:32:00 EDT, Height/Length Dosing, 62.1, kg, 11/26/23 15:32:00 EDT, Weight Dosing mirtazapine 7.5 mg oral tablet: 7.5 mg = 1 tab(s), Oral, Bedtime, # 30 tab(s), Refills(s) 0, [id number], 169.7, cm, 10/03/23 9:38:00 EDT, Height/Length Dosing, 62.5, kg, 10/03/23 9:38:00 EDT, Weight Dosing omeprazole 20 mg Cap-DR: See Instructions, TAKE 1 CAPSULE BY MOUTH EVERY DAY, # 30 cap(s), Refills(s) 0, Pharmacy: [facility] [id number], 169, cm, 02/21/24 8:47:00 EST, Height/Length Dosing, 62.2, kg, 02/21/24 8:47:00 EST, Weight Dosing ondansetron 4 mg Dis Tab: 4 mg = 1 tab(s), Oral, q6hr, PRN Nausea/Vomiting, # 30 tab(s), Refills(s)0, [id number], 169.7, cm, 11/26/23 15:32:00 EDT, Height/Length Dosing, 62.1, kg, 11/26/23 15:32:00 EDT, Weight Dosing ondansetron 8 mg Dis Tab: See Instructions, DISSOLVE 1 TABLET ON THE TONGUE EVERY 8 HOURS NEEDEDFOR NAUSEA AND VOMITING, # 24 tab(s), Refills(s) 0, [id number], 169, cm, 02/17/2411:55:00 EST, Height/Length Dosing, 61.8, kg, 02/18/24 11:55:00 EST, Weight D... promethazine 25 mg Tab: 25 mg = 1 tab(s), Oral, TID, # 15 tab(s), Refills(s) 0, Pharmacy: [facility] #[id number], 169, cm, 01/16/24 10:14:00 EDT, Height/Length Dosing, 63.9, kg, 01/16/24 10:14:00 EDT, Weight Dosing promethazine 25 mg Tab: See Instructions, TAKE 1 TABLET BY MOUTH THREE TIMES A DAY, # 30 tab(s), Refills(s) 1, Pharmacy: [facility] #[id number], 169, cm, 02/18/24 11:55:00 EST, Height/Length Dosing, 61.8, kg, 02/18/24 11:55:00 E (more content not included)...[facility] HospitalComment on above:Result Comment: Electronically Signed By: Rob SANDOVAL, Dakota Shoemaker\.br\Date and Time Signed: 02/25/24 10:18 [id number] Evaluation + Plan note Future Scheduled Tests Laboratory* Giardia lamblia, Direct Detection EIA 11/26/23 * O & P Exam, Routine 11/26/23 * Rotavirus Ab 11/26/23 * Clostridium Difficile PCR 11/26/23 Radiology* XR Small Bowel w/ Serial Films 02/10/24 [facility] 09-10-2024 Evaluation + Plan note Future Scheduled Tests Laboratory* Giardia lamblia, Direct Detection EIA 11/26/23 * O & P Exam, Routine 11/26/23 * Rotavirus Ab 11/26/23 * Clostridium Difficile PCR 11/26/23 Radiology* CT Abdomen/Pelvis w/contrast (enterography) 01/30/24 * XR Small Bowel w/ Serial Films 02/10/24 [facility] 07-09-2024 Hospital Discharge [...] Treatment for this condition includes: Antibiotic medicine. Rksp-oak-yairphd medicines to treat discomfort. Drinking enough water [...] Follow these instructions at home: Medicines Take kzhp-wki-lvszjao and prescription medicines only as told by [...] provider. Document Revised: 10/14/2020 Document Reviewed: 10/14/2020 [employer] Patient Education 2022 [employer]. Follow Up Care 09/24/2023 12:53:04 With:CHANCE SERRANO Address: [address] [place] [phone] Business (1) When:09/27/2023 15:19:10 [facility]07-09-2024 Evaluation + Plan note Diagnostic Tests Pending * Urine Culture 09/24/23 [facility]02-21-2023 Miscellaneous Notes* Telephone Encounter - Eva Chong - 05/08/2022 10:40 AM EST 05/08/22 Patient calling to see if Dr Morales will write her a script for Zofran nausea medication strips. [phone] NoteHNO ID: [id number] Author: Tiffani Morales MD Service: ? Author [...] Tiffani Morales MD 04/24/2022 11:19 AM Staff Superintendent Communications, Digestive Disease AND Surgery Pillager PRIMARY PROBLEM: small bowel tumor, severe malnutrition [...] clips were successfully placed (MR conditional). 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 There was no bleeding at the end [...] patient, physical examination, documentation, and co-ordination of care.[facility] History of Present illness Narrative* [...] Tiffani Morales MD 04/24/2022 11:19 AM Staff Superintendent Communications, Digestive Disease & Surgery Pillager PRIMARY PROBLEM: small bowel tumor, severe malnutrition [...] clips were successfully placed (MR conditional). 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 There was no bleeding at the end [...] co- ordination of care. [facility] Miscellaneous Notes* Telephone Encounter - Eva Chong - 04/05/2022 9:29 AM EST 04/05/22 Patient wants tow know if y script you can send her script for ZOFRAN, under the tongue tablets. For nausea. Eva [facility]-2023 NoteHNO ID: [id number] Author: Frederick Chaves APRN.R D MANAGER Service: ? Author Type: Nurse County Extension Agent Type: Anesthesia Procedure Notes Filed: 04/04/2022 1:55 PM Note Text: ANESTHESIOLOGY PROCEDURE NOTE Airway General Information Procedure Start Time/Medication Administration: 04/04/2022 1:38 PM Patient location during procedure: OR Timeout Performed Pre-procedure: timeout performed Consent Obtained: Yes Patient identity confirmed: arm band Staffing R D MANAGER: Frederick Chaves APRN.R D MANAGER Performed by: R D MANAGER Indications and Patient Condition Indications for airway management: anesthesia Preoxygenated: yes anesthesia circuit Patient position: sniffing Method: asleep Cricoid Pressure: No Difficult Mask: No Final Airway Details Final airway type: endotracheal airway Final Endotracheal Airway: ETT Cuffed: yes Successful intubation technique: video laryngoscopy Devices used: Segura Endotracheal tube insertion site: oral Blade: [place] Blade size: #3 ETT size (mm): 7.0 Measured from: lips Measurement (cm): 21 Placement verified by: capnometry Cormack-Lehane Classification: grade I - full view of glottis Number of attempts at approach: 1 Airway not difficult SIGNATURE: Frederick Chaves APRN.R D MANAGER PATIENT NAME: Sai Pineda DATE: April 04, 2022 TIME: 1:54 PM CSN: [id number] NoteHNO ID: [id number] Author: Frederick Chaves APRN.R D MANAGER Service: ? Author Type: Nurse County Extension Agent Type: Anesthesia Procedure Notes Filed: 04/04/2022 1:51 PM Note Text: ANESTHESIOLOGY PROCEDURE NOTE PIV General Information Procedure Start Time/Medication Administration: 04/04/2022 1:26 PM Patient Location: OR Staffing R D MANAGER: Frederick Chaves APRN.R D MANAGER Performed by: R D MANAGER Preparation Sterility Preparation: hand hygiene performed prior to procedure, surgical cap used, mask used, skin prep agent completely dried prior to procedure Site Prep: alcohol Procedure Details Indication: need for IV access Needle Size/Type: 22 gauge angiocath Orientation: Right Location: Foot Imaging Guidance Used: No SIGNATURE: Frederick Chaves APRN.R D MANAGER PATIENT NAME: Sai Pineda DATE: April 04, 2022 TIME: 1:49 PM CSN: [id number] Nurse Note* Eduardo Harrington RN - [...] RN In Department: GASTROENTEROLOGY documented in [facility] encounterGre[facility]-2023 NoteQ3 Patient Name: Sai Pineda Procedure [...] clips were successfully placed (MR conditional). 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 There was no bleeding at the end of the maneuver. Exam of the jejunum was otherwise normal. Impression: - Atrophic mucosa. - Jejunal polyp(s). Resected and retrieved. Tattooed. Clips (MR conditional) were placed. Clip lacquer shader: [employer]. Estimated Blood Loss: Estimated blood loss was minimal. Recommendation: - Await pathology results. - Resume previous diet. - Continue present medications. - Return to endoscopist at the next available appointment. 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 All rights reserved. Attending Participation: I was present and participated during the entire procedure, including non-morrison portions. Scope In: 1:44:30 PM Scope Out: 3:07:42 PM MD Tiffani Camargo MD 04/04/2022 3:21:50 PM This report has been signed electronically by Tiffani Morales MD Number of Addenda: 0 (more content not included)...[facility] 04-04-2022 History and physical note* [...] DATE: 04/04/2022 TIME: 1302 documented in this encounterGreene [facility]01-11-2023 Miscellaneous Notes* Telephone Encounter - Eduardo Harrington RN - 03/28/2022 3:50 PM EST Attempted to reach the patient at the contact number that they provided [phone] (home) . Unable to speak with patient so without identifying the patient the following information was left on their voice mail: Date of procedure, location and report time A message was left informing the patient/patient member services representative they must have a responsible adult [...] Number to call with questions or concerns [phone] Number to call to cancel their procedure [phone] Eduardo Harrington RN documented in this encounterGreene [facility] Hospital12-27-2022 Note* Addendum Note - Robb Evans MD - 03/13/2022 3:44 PM ESTAddended by: ROBB EVANS on: 03/13/2022 03:44 PM Modules accepted: Orders [id number] Miscellaneous Notes* Addendum Note - Robb Evans MD - 03/13/2022 3:44 PM ESTAddended by: ROBB EVANS on: 03/13/2022 03:44 PM Modules accepted: Orders * Addendum Note - Gokul Montoya MA - 03/13/2022 3:37 PM ESTAddended by: GOKUL MONTOYA on: 03/13/2022 03:37 PM Modules accepted: Orders documented in this [id number] Note* Addendum Note - Gokul Montoya MA - 03/13/2022 3:37 PM ESTAddended by: GOKUL MONTOYA on: 03/13/2022 03:37 PM Modules accepted: Orders [id number] Note* Addendum Note - Gokul Montoya MA - 03/13/2022 3:37 PM ESTAddended by: GOKUL MONTOYA on: 03/13/2022 03:37 PM Modules accepted: Orders [id number] Miscellaneous Notes* Addendum Note - Gokul Montoya MA - 03/13/2022 3:37 PM ESTAddended by: GOKUL MONTOYA on: 03/13/2022 03:37 PM Modules accepted: Orders documented in this [id number] NoteHNO ID: [id number] Author: Tiffani Morales MD Service: ? Author [...] Tiffani Morales MD 03/01/2022 11:19 AM Staff Superintendent Communications, Digestive Disease AND Surgery Pillager PRIMARY PROBLEM: small bowel tumor, severe malnutrition [...] patient, physical examination, documentation, and co-ordination of care.[facility]12-15-2022 History of Present illness Narrative* [...] access the video or audio with a Guest of a Guestvite. IMPRESSION: Sai Pineda is a 51 year [...] Tiffani Morales MD 03/01/2022 11:19 AM Staff Superintendent Communications, Digestive Disease & Surgery Pillager PRIMARY PROBLEM: small bowel tumor, severe malnutrition [...] co- ordination of care. documented in this encounterGreene Memorial Hospital12-02-2022 NoteHNO ID: [id number] Author: Anastasiya Mosqueda PA-C Service: ? Author Type: Physician Boiling Tub Operator Type: Progress Notes Filed: 02/16/2022 5:07 PM Note Text: Orders placedOhiohealth [facility]ide [facility]11-21-2022 NoteHNO ID: [id number] Author: RT Fabiana(R) Service: Nuclear Medicine Author [...] [address] DI[address] PERFORMED: No IV SITE: [place] only - not applicable, oral or physician administered agents given to patient POST EXAM PIV STATUS: Discontinued PROCEDURE TYPE: NM GET: 1 mCi Tc99m SULFUR COLLOID was administered orally via 4 ounces of Egg Beaters,2 pieces of toast, 1 ounce of jelly with 8 ounces of water orally ADMINISTRATION TIME: 08:15 PATIENT DISCHARGED TO: Ambulatory patient, left [place] department area. A Diagnostic radioactive procedure has taken place, with no further precautions necessary other than routine body substance precautions. More information regarding radiation safety can be found using this link: [email or web address] SIGNATURE: RT Fabiana(R) PATIENT NAME: Sai Pineda DATE: February 05, 2022 TIME: 10:16 AM PAGER/CONTACT #:[facility]11-14-2022 NoteHNO ID: [id number] Author: Dolores Lopez RN Service: ? Author Type: Registered Nurse Type: Progress Notes Filed: 02/01/2022 4:29 PM Note Text: Summary: capsule endoscopy small bowel Capsule endoscopy small bowel ingested without difficulty @ 1300 on 01-29-2022. Therese Lopez RN [id number] MFW PTF G 38761N Capsule Endoscopy Post Ingestion Patient Information Do [...] cell phones, computers, remote TV appliances, microwaves, Pet[employer] players and digital cameras. Because the capsule [...] hours you may call: HERNÁN Salvador RN [phone] After Business hours: [phone] and ask for GI Vqfjrj-[facility]Brkmrc[facility] History of Present illness Narrative* Dolores Lopez RN - 01/29/2022 1:17 PM ESTSummary: capsule endoscopy small bowel Capsule endoscopy small bowel ingested without difficulty @ 1300 on 01-29-2022. Therese Lopez RN 28852H MFW PTF G 39903P Capsule Endoscopy Post Ingestion Patient Information Do [...] on thebox for return to the main nerinx. Place the box in the closest [employer] [...] hours you may call: HERNÁN Salvador RN [phone] After Business hours: [phone] and ask for GI Cxuutb-Sf-Esv documented in this encounterGreene Memorial Hospital10-21-2022 Miscellaneous Notes* Telephone Encounter - Tiffani [...] Morales MD 01-05-2022 17:51 documented in this encounterGreene Memorial Hospital10-21-2022 NoteHNO ID: [id number] Author: Anastasiya Mosqueda PA-C Service: ? Author Type: Physician Boiling Tub Operator Type: Progress Notes Filed: 01/05/2022 2:24 PM Note Text: Per discussion with Dr. Morales, SUZANNE, Small bowel capsule study, Fecal fat qual and pancreatic elastase stool studies orders placed. Discussed plan with patient. [facility] History of Present illness Narrative* Anastasiya Mosqueda PA-C - 01/05/2022 2:13 PM EDT Per discussion with SUZANNE Estrada, Small bowel capsule study, Fecal fat qual and pancreatic elastase stool studies orders placed. Discussed plan with patient. Anastasiya Mosqueda PA-C documented in this encounterGreene Memorial Hospital10-21-2022 Miscellaneous Notes* Telephone Encounter - Anastasiya [...] testing. Anastasiya Mosqueda PA-C documented in this encounterGreene Memorial Hospital10-19-2022 Miscellaneous Notes* Telephone Encounter - Anastasiya Mosqueda PA-C - 01/03/2022 10:17 AM EDT EGD results discussed with patient as requested, pathology still pending. Will reach out to patientonce resulted. Red flags for in person care discussed. Anastasiya Mosqueda PA-C documented in this encounterGreene Memorial Hospital10-18-2022 Miscellaneous Notes* Telephone Encounter - Leydi Dumontader - 01/02/2022 8:47 AM EDT Patient called to get results from her procedure. Please contact her at number listed in system. Thanks Leydi Henry Workleader documented in this encounterGreene Memorial Hospital10-17-2022 Nurse Note* Juan Carlos Saucedo LPN [...] RN In Department: GASTROENTEROLOGY documented in this encounterGreene Memorial Hospital10-17-2022 History and physical note * Tiffani [...] DATE: 01/01/2022 TIME: 1600 documented in this encounterGreene Memorial Hospital10-10-2022 Miscellaneous Notes* Telephone Encounter - Rima Gerard RN - 12/25/2021 8:26 AM EDT Patient scheduled incorrectly. Anesthesia not supposed to have 430 case. I called patient to see ifthey can come in early. She said she would call me back Rima Gerard RN documented in this encounterGreene Memorial Hospital09-30-2022 NoteHNO ID: [id number] Author: Anastasiya Mosqueda PA-C Service: ? Author Type: Physician Boiling Tub Operator Type: Progress Notes Filed: 12/15/2021 4:32 PM Note Text: VIRTUAL VISIT NEW PATIENT NAME: Sai Guerrero CLINIC NO: [id number] DATE: 12/15/2021 REASON FOR VISIT Sai Guerrero [id number] 1970 has requested a video telemedicine initial [...] abdominal rigidity Assessment IMPRESSION (more content not included)...[facility]09-30-2022 History of Present illness Narrative* Anastasiya Mosqueda PA-C - 12/15/2021 11:50 AM EDT VIRTUAL VISIT NEW PATIENT NAME: Sai Guerrero [facility] NO: [id number] DATE: 12/15/2021 REASON FOR VISIT Sai Guerrero [id number] 1970 has requested a video telemedicine initial [...] 15, 2021 11:51 AM documented in this encounterGreene Memorial Hospital09-29-2022 NoteHNO ID: [id number] Author: Anastasiya Mosqueda PA-C Service: ? Author Type: Physician Boiling Tub Operator Type: Progress Notes Filed: 12/14/2021 3:51 PM Note Text: Unable to connect to VV, called multiple times and left multiple VM's. Patient rescheduled for tomorrow.[facility]09-29-2022 History of Present illness Narrative* Anastasiya Mosqueda PA-C - 12/14/2021 10:52 AM EDT Unable to connect to VV, called multiple times and left multiple VM's. Patient rescheduled for tomorrow. documented in this encounterGreene Memorial Hospital09-28-2022 Miscellaneous Notes* Telephone Encounter - Elizabeth Ricci - 12/13/2021 12:32 PM EDT Spoke to patient's daughter - she will contact the [employer] support line to assist with setting up patient's Mychart & assist with set up for virtual visit tomorrow morning Elizabeth Ricci * Telephone Encounter - Elizabeth Ricci - 12/13/2021 11:17 AM EDT Received a call from patient's health agency concerning virtual visit set up with you today at 11 - Patient has not registered for [employer] (having trouble accessing her email) & they want to knowif you will do a phone visit instead Was told this was an urgent request from the referring doctor's office - the visit was scheduled thru the Referring Physician office There are no records found for this patient & I attempted to pull records thru Care Everywhere Patient's phone [phone] Elizabeth Ricci documented in this encounterGreene Memorial Hospital07-13-2022 History of Present illness Narrative* Robb Evans MD - 09/27/2021 10:19 AM EDT Prolactin Level Elevated at 146. Will add Abilify 5 mg daily to address that. Pt informed. Pt is denying breast tenderness or documented in this [id number] History of Present illness Narrative* Robb Evans MD - 09/19/2021 2:19 PM EDT BEHAVIORAL HEALTH PSYCHIATRIC PROGRESS NOTE Reason for visit: Psychotropic medication management 09/19/2021 Patient is seen alone in his office for psychotropic medication management. Patient reported they are moving to a new residence, in [place] same place they have been living in. [...] Testing: none Robb Evans documented in this [id number] History of Present illness Narrative* Robb Evans [...] Testing: none Robb Evans documented in this [id number] History of Present illness Narrative* Robb Evans MD - 03/01/2021 1:31 PM EST Telephone Visit Via Phone Call [facility] [address]) [facility] [address] [facility] [phone] Telephone Visit [facility] 03/01/2021 Robb Evans MD Provider Location: [facility] Patient Location [employer]: None Patient Location: Patient's Home Patient: Sai [...] there are inherent diagnostic limitations compared to qszp-gu-avuz evaluations. We elected toproceed with the telephone [...] and Plan of Care. documented in this [id number] History of Present illness Narrative* Robb Evans MD - 08/22/2020 3:27 PM EDT Telephone Visit Via Phone Call [facility] [phone] Telephone Visit [facility] 08/22/2020 Robb Evans MD Provider Location: [facility] Patient Location [employer]: None Patient Location: Patient's Home Patient: Sai [...] there are inherent diagnostic limitations compared to oaam-lz-wiuv evaluations. We elected toproceed with the telephone [...] and Plan of Care. documented in this [id number] History of Present illness Narrative* Robb Evans MD - 07/20/2020 11:29 AM EDT BEHAVIORAL HEALTH PSYCHIATRIC ASSESSMENT DOS: 07/18/3020 Reason for visit: Psychotropic management follow-up. Patient is here to reestablish care at my new location HPI: Patient is seen in office alone. [facility]. Her working diagnosis is bipolar disorder type I, panic disorder with agoraphobia and PTSD. She has prior history of alcohol and cannabis abuse but has maintained sobriety for about last 1 year. Patient was seen here for reestablishing care at my new location in [facility]. Patient wants to continue her psychiatric management.. She had [place] seen [place] nurse practitioner [place]. Patient reported she she is [...] Past Medical History: Diagnosis Date Alcoholism ([facility]), in remission Anxiety Bipolar disorder (HCC) Depression [...] XR Small Bowel w/ Serial Films 01/27/24 [facility] Digestive Health Evaluation + Plan note Future Appointments Appointment Date:02/25/2024 11:00:00 AM Scheduled Provider: Location:[facility] Appointment Type:Surgery FT Future Scheduled Tests Laboratory* Giardia lamblia, Direct Detection EIA 11/26/23 * O & P Exam, Routine 11/26/23 * Rotavirus Ab 11/26/23 * Clostridium Difficile PCR 11/26/23 Radiology* CT Abdomen/Pelvis w/contrast (enterography) 01/30/24 * XR Small Bowel w/ Serial Films 02/10/24 [facility] Digestive Health Evaluation note* Diagnosis Generalized anxiety [...] of high-risk medication documented in this encounter [facility] note* Diagnosis Generalized anxiety disorder documented in this encounter [facility] note* Diagnosis Bipolar 1 disorder, mixed, mild (HCC)- Primary Generalized anxiety disorder Long-term use of high-risk medication documented in this encounter [facility] note* Diagnosis Generalized anxiety disorder- Primary Bipolar 1 disorder, mixed, mild (HCC) Long-term use of high-risk medication Post traumatic stress disorder (PTSD) documented in this encounter [facility] note* Diagnosis Bipolar 1 disorder, mixed, mild (HCC)- Primary Generalized anxiety disorder Long-term use of high-risk medication documented in this encounter [facility] note* Diagnosis APPOINTMENT CANCELLED- Primary documented in this encounter [facility] note* Diagnosis Nausea and vomiting, unspecified vomiting type- Primary Left upper quadrant abdominal pain Weight loss Loss of weight documented in this encounter [facility] note* Diagnosis Nausea and vomiting, unspecified vomiting type Left upper quadrant abdominal pain documented in this encounter [facility] note* Diagnosis Nausea- Primary Nausea alone Weight loss Loss of weight 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, jejunum, and ileum documented in this encounter [facility] note* Diagnosis Abdominal pain, unspecified abdominal location- Primary documented in this encounter [facility] note* Diagnosis Intestinal polyposis- Primary Benign neoplasm of colon documented in this encounter 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 note* Diagnosis Generalized anxiety disorder documented in this encounter [facility] note* Diagnosis Severe malnutrition (HCC)- Primary 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 [facility] course Narrative No data available for this section [facility] No data available for this section [facility] Digestive Health Progress note No data available for this section [facility] (narr[facility])* Outpatient Procedure (Routine) - Closed Specialty Diagnoses / Procedures Referred By Shane titus Referred To Contact [facility] Diagnoses Nausea and vomiting, unspecified vomiting type Left upper quadrant abdominal pain Procedures EGD DIAGNOSTIC ESOPHAGOGASTRODUODENOSC OPY TRANSORAL DIAGNOSTIC Anastasiya Mosqueda PA-C [address] [place] [address] [address] [address] Referral ID Status Reason Start Date Expiration Date V isits Requested Visits Authorized [id number] Closed Auto-Generate d Referral 12/15/2021 12/15/2022 1 1 [facility] for referral (narrative)* Outpatient Procedure (Routine) - Pending Review Specialty Diagnoses / Procedures Referred By Shane titus Referred To Contact [facility] Diagnoses Small bowel polyp Procedures CAPSULE ENDOSCOPY SMALL BOWEL GI TRC IMG INTRALUMINAL ESOPHAGUS-ILEUM W/I&R Anastasiya Mosqueda PA-C [address] [place] [address] [facility] [address] [address] Referral ID Status Reason Start Date Expiration Date Visits Requested Visits Authorized [id number] Pending Review Auto-Generat ed Referral 2 01/05/2023 1 1 * Diagnostic Procedure Only (Routine) - Pending Review Specialty Diagnoses / Procedures Referred By Shane titus Referred To Contact MOLECULAR & FUNCTIONAL IMAGING Diagnoses Nausea Procedures NM GASTRIC EMPTYING SOLID GASTRIC EMPTYING STUDY Anastasiya Mosqueda PA-C [address] [place] [address] Molecular & Functional Imaging [address] [place] [address] Referral ID Status Reason Start Date Expiration Date Visits Requested Visits Authorized [id number] Pending Review Auto-Generat ed Referral 2 02/04/2023 1 1 [facility] for referral (narrative)* Outpatient Procedure (Routine) - Pending Review Specialty Diagnoses / Procedures Referred By Contac t Referred To Contact [facility] Diagnoses 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) Procedures ENTEROSCOPY ENDOSCOPY UPPER SMALL INTESTINE Tiffani Morales MD [address] [place] [address] Digestive Disease Pill[facility] [address] [place] [address] Referral ID Status Reason Start Date Expiration Date Visits Requested Visits Authorized [id number] Pending Review Auto-Generat ed Referral 2 03/02/2023 1 1 * MRI/CT (Routine) - Pending Review Specialty Diagnoses / Procedures Referred By Contac t Referred To Contact CT IMAGING Diagnoses 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) Weight loss Procedures CT ENTEROGRAPHY W IVCON CT ABD & PELVIS W/CONTRAST Tiffani Morales MD [address] [place] [address] Ct Imaging Referral ID Status Reason Start Date Expiration Date Visits Requested Visits Authorized [id number] Pending Review Auto-Generat ed Referral 2 04/01/2023 1 1 [facility] for referral (narrative)* Outpatient Procedure (Routine) - Closed Specialty Diagnoses / Procedures Referred By Contrachel t Referred To Contact [facility] Diagnoses 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) Procedures ENTEROSCOPY ENDOSCOPY UPPER SMALL INTESTINE Tiffani Morales MD [address] [place] [address] [facility] Disease [address] [address] Referral ID Status Reason Start Date Expiration Date V isits Requested Visits Authorized [id number] Closed Auto-Generate d Referral 03/02/2022 03/02/2023 1 1 [facility] for visit Narrative* Outpatient Procedure (Routine) - Closed Specialty Diagnoses / Procedures Referred By Contac t Referred To Contact [facility] Diagnoses Nausea and vomiting, unspecified vomiting type Left upper quadrant abdominal pain Procedures EGD DIAGNOSTIC ESOPHAGOGASTRODUODENOSC OPY TRANSORAL DIAGNOSTIC Anastasiya Mosqueda PA-C [address] [phone] [facility] Disease [address] [address] Referral ID Status Reason Start Date Expiration Date V isits Requested Visits Authorized [id number] Closed Auto-Generate d Referral 12/15/2021 12/15/2022 1 1 [facility] for visit Narrative* Outpatient Procedure (Routine) - Closed Specialty Diagnoses / Procedures Referred By Contac t Referred To Contact [facility] Diagnoses 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) Procedures ENTEROSCOPY ENDOSCOPY UPPER SMALL INTESTINE Tiffani Morales MD [address] [place] [address] [facility] Disease [place] [phone] Referral ID Status Reason Start Date Expiration Date V isits Requested Visits Authorized [id number] Closed Auto-Generate d Referral 03/02/2022 03/02/2023 1 1 [facility] Advance Directives No Advanced Directives Records FoundDocuments on File Type Date Recorded 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 Advance Directives and Living Will [...] HIGH MDM 60-74 MINUTES Anastasiya Mosqueda PA-C [address] [place] [address] Referral ID Status Reason Start Date Expiration Date Visits Requested Visits Authorized [id number] Authorized PCP Requested Referral 12/15/2021 12/15/2022 1 1 Specialty Diagnoses / Procedures Referred By Shane titus Referred To Contact [facility] Diagnoses Nausea and vomiting, unspecified vomiting type Left upper quadrant abdominal pain Procedures EGD DIAGNOSTIC ESOPHAGOGASTRODUODENOSC OPY TRANSORAL DIAGNOSTIC Anastasiya Mosqueda PA-C [address] [place] [address] [facility] Disease [facility] [address] [place] [address] Referral ID Status Reason Start Date Expiration Date Visits Requested Visits Authorized [id number] Authorized Auto-Generat ed Referral 12/15/2021 12/15/2022 1 1 Medications Administered Section Inactive Administered Medications - up to 3 most recent administrations Medication Order MAR Action Action Date Dose Rate Site benzocaine 20% (TOPEX) TOPICAL, X (OR/PROCEDURE) PRN, Starting on Sat01/01/22 at 1606, Until Sat01/01/22 at 1606, Intraprocedure Given 01/01/2022 4:06 PM EDT 1 [place] NaCl 0.9% iv infusion 30 mL/hr, INTRAVENOUS, [...] Care Teams (unrecognized sec tion and content) Wire Weaving Loom Setter Relationship Specialty Start Date End Date Cristina Iqbal, CORPORATE DIRECTOR OF PHARMACY [address] [place] [address] PCP - General Nurse Practitioner 07/18/20 Wire Weaving Loom Setter Relationship Specialty Start Date End Date Cristina Iqbal CORPORATE DIRECTOR OF PHARMACY [address] [place] [address] PCP - General Nurse Practitioner 07/18/20 Wire Weaving Loom Setter Relationship Specialty Start Date End Date Cristina Iqbal, CORPORATE DIRECTOR OF PHARMACY [address] [place] [address] PCP - General Nurse Practitioner 07/18/20 Wire Weaving Loom Setter Relationship Specialty Start Date End Date Cristina Iqbal CORPORATE DIRECTOR OF PHARMACY [address] [place] [address] PCP - General Nurse Practitioner 07/18/20 Wire Weaving Loom Setter Relationship Specialty Start Date End Date Cristina Iqbal CORPORATE DIRECTOR OF PHARMACY [address] [facility] [address] PCP - General Nurse Practitioner 07/18/20 Wire Weaving Loom Setter Relationship Specialty Start Date End Date Cristina Iqbal CORPORATE DIRECTOR OF PHARMACY [address] [place] [address] PCP - General Family Medicine 10/15/12 Wire Weaving Loom Setter Relationship Specialty Start Date End Date Cristina Iqbal CORPORATE DIRECTOR OF PHARMACY [address] [place] [address] PCP - General Family Medicine 10/15/12 Wire Weaving Loom Setter Relationship Specialty Start Date End Date Cristina Iqbal, CORPORATE DIRECTOR OF PHARMACY [address] [place] [address] PCP - General Family Medicine 10/15/12 Wire Weaving Loom Setter Relationship Specialty Start Date End Date Cristina Iqbal, CORPORATE DIRECTOR OF PHARMACY [address] [place] [address] PCP - General Family Medicine 10/15/12 Wire Weaving Loom Setter Relationship Specialty Start Date End Date Cristina Iqbal, CORPORATE DIRECTOR OF PHARMACY [address] [place] [address] PCP - General Family Medicine 10/15/12 Wire Weaving Loom Setter Relationship Specialty Start Date End Date Cristina Iqbal, CORPORATE DIRECTOR OF PHARMACY [address] [place] [address] PCP - General Family Medicine 10/15/12 Wire Weaving Loom Setter Relationship Specialty Start Date End Date Cristina Iqbal, CORPORATE DIRECTOR OF PHARMACY [address] [place] [address] PCP - General Family Medicine 10/15/12 Wire Weaving Loom Setter Relationship Specialty Start Date End Date Cristina Iqbal, CORPORATE DIRECTOR OF PHARMACY [address] [place] [address] PCP - General Family Medicine 10/15/12 Wire Weaving Loom Setter Relationship Specialty Start Date End Date Cristina Iqbal, CORPORATE DIRECTOR OF PHARMACY [address] [place] [address] PCP - General Nurse Practitioner 07/18/20 Wire Weaving Loom Setter Relationship Specialty Start Date End Date Cristina Iqbal, CORPORATE DIRECTOR OF PHARMACY [address] [place] [address] PCP - General Family Medicine 10/15/12 Wire Weaving Loom Setter Relationship Specialty Start Date End Date Cristina Iqbal, CORPORATE DIRECTOR OF PHARMACY [address] [place] [address] PCP - General Family Medicine 10/15/12 Wire Weaving Loom Setter Relationship Specialty Start Date End Date Cristina Iqbal, CORPORATE DIRECTOR OF PHARMACY [address] [place] [address] PCP - General Family Medicine 10/15/12 Wire Weaving Loom Setter Relationship Specialty Start Date End Date Cristina Iqbal, CORPORATE DIRECTOR OF PHARMACY [address] [place] [address] PCP - General Family Medicine 10/15/12 Wire Weaving Loom Setter Relationship Specialty Start Date End Date Cristina Iqbal, CORPORATE DIRECTOR OF PHARMACY [address] [place] [address] PCP - General Nurse Practitioner 07/18/20 Wire Weaving Loom Setter Relationship Specialty Start Date End Date Cristina Iqbal, CORPORATE DIRECTOR OF PHARMACY [address] [place] [address] PCP - General Nurse Practitioner 07/18/20 Wire Weaving Loom Setter Relationship Specialty Start Date End Date Cristina Iqbal, CORPORATE DIRECTOR OF PHARMACY [address] [place] [address] PCP - General Family Medicine 10/15/12 Wire Weaving Loom Setter Relationship Specialty Start Date End Date Cristina Iqbal, CORPORATE DIRECTOR OF PHARMACY [address] [place] [address] PCP - General Family Medicine 10/15/12 Wire Weaving Loom Setter Relationship Specialty Start Date End Date Cristina Iqbal, CORPORATE DIRECTOR OF PHARMACY [address] [place] [address] PCP - General Family Medicine 10/15/12 Wire Weaving Loom Setter Relationship Specialty Start Date End Date Cristina Iqbal, CORPORATE DIRECTOR OF PHARMACY [address] [place] [address] PCP - General Family Medicine 10/15/12 INFORMATION SOURCE (unrecogn ized section and content) DATE CREATED AUTHOR 12/16/2021 [facility] DATE CREATED AUTHOR AUTHOR'S ORGANIZ ATION 12/20/2021 [facility] DATE CREATED AUTHOR AUTHOR'S ORGANIZ ATION 05/12/2022 [facility] DATE CREATED AUTHOR AUTHOR'S ORGANIZ ATION 05/31/2022 [facility] DATE CREATED AUTHOR AUTHOR'S ORGANIZ ATION 03/04/2024 [facility] DATE CREATED AUTHOR AUTHOR'S ORGANIZ ATION 03/19/2024 [facility] DATE CREATED AUTHOR AUTHOR'S ORGANIZ ATION 03/29/2024 [facility] DATE CREATED AUTHOR AUTHOR'S ORGANIZ ATION 05/14/2024 [facility] Source Comments (unrecognize d section and content) In the event this informatio n is protected by the Federal Confidentiality of Alcohol and Drug Abuse Patient Records regulations: The Federal rules restrict any use of the information to criminally investigate or prosecute any alcohol or drug abuse patient.[facility] the event this information is protected by the Federal Confidentiality of Alcohol and Drug Abuse Patient Records regulations: The Federal rules restrict any use of the information to criminally investigate or prosecute any alcohol or drug abuse patient.[facility] the event this information is protected by the Federal Confidentiality of Alcohol and Drug Abuse Patient Records regulations: The Federal rules restrict any use of the information to criminally investigate or prosecute any alcohol or drug abuse patient.[facility] the event this information is protected by the Federal Confidentiality of Alcohol and Drug Abuse Patient Records regulations: The Federal rules restrict any use of the information to criminally investigate or prosecute any alcohol or drug abuse patient.[facility] the event this information is protected by the Federal Confidentiality of Alcohol and Drug Abuse Patient Records regulations: The Federal rules restrict any use of the information to criminally investigate or prosecute any alcohol or drug abuse patient.[facility] the event this information is protected by the Federal Confidentiality of Alcohol and Drug Abuse Patient Records regulations: The Federal rules restrict any use of the information to criminally investigate or prosecute any alcohol or drug abuse patient.[facility] the event this information is protected by the Federal Confidentiality of Alcohol and Drug Abuse Patient Records regulations: The Federal rules restrict any use of the information to criminally investigate or prosecute any alcohol or drug abuse patient.[facility] the event this information is protected by the Federal Confidentiality of Alcohol and Drug Abuse Patient Records regulations: The Federal rules restrict any use of the information to criminally investigate or prosecute any alcohol or drug abuse patient.[facility] the event this information is protected by the Federal Confidentiality of Alcohol and Drug Abuse Patient Records regulations: The Federal rules restrict any use of the information to criminally investigate or prosecute any alcohol or drug abuse patient.[facility] the event this information is protected by the Federal Confidentiality of Alcohol and Drug Abuse Patient Records regulations: The Federal rules restrict any use of the information to criminally investigate or prosecute any alcohol or drug abuse patient.[facility] the event this information is protected by the Federal Confidentiality of Alcohol and Drug Abuse Patient Records regulations: The Federal rules restrict any use of the information to criminally investigate or prosecute any alcohol or drug abuse patient.[facility] the event this information is protected by the Federal Confidentiality of Alcohol and Drug Abuse Patient Records regulations: The Federal rules restrict any use of the information to criminally investigate or prosecute any alcohol or drug abuse patient.[facility] the event this information is protected by the Federal Confidentiality of Alcohol and Drug Abuse Patient Records regulations: The Federal rules restrict any use of the information to criminally investigate or prosecute any alcohol or drug abuse patient.[facility] Hospital[facility] the event this information is protected by the Federal Confidentiality of Alcohol and Drug Abuse Patient Records regulations: The Federal rules restrict any use of the information to criminally investigate or prosecute any alcohol or drug abuse patient.[facility] Hospital[facility] the event this information is protected by the Federal Confidentiality of Alcohol and Drug Abuse Patient Records regulations: The Federal rules restrict any use of the information to criminally investigate or prosecute any alcohol or drug abuse patient.[facility] the event this information is protected by the Federal Confidentiality of Alcohol and Drug Abuse Patient Records regulations: The Federal rules restrict any use of the information to criminally investigate or prosecute any alcohol or drug abuse patient.[facility] Hospital[facility] the event this information is protected by the Federal Confidentiality of Alcohol and Drug Abuse Patient Records regulations: The Federal rules restrict any use of the information to criminally investigate or prosecute any alcohol or drug abuse patient.[facility] HospitalIn the event this information is protected by the Federal Confidentiality of Alcohol and Drug Abuse Patient Records regulations: The Federal rules restrict any use of the information to criminally investigate or prosecute any alcohol or drug abuse patient.[facility] HospitalIn the event this information is protected by the Federal Confidentiality of Alcohol and Drug Abuse Patient Records regulations: The Federal rules restrict any use of the information to criminally investigate or prosecute any alcohol or drug abuse patient.[facility] HospitalIn the event this information is protected by the Federal Confidentiality of Alcohol and Drug Abuse Patient Records regulations: The Federal rules restrict any use of the information to criminally investigate or prosecute any alcohol or drug abuse patient.[facility] HospitalIn the event this information is protected by the Federal Confidentiality of Alcohol and Drug Abuse Patient Records regulations: The Federal rules restrict any use of the information to criminally investigate or prosecute any alcohol or drug abuse patient.[facility] FOR RECORDS PERTAINING TO PATIENTS [...] BE BASED ON THE PRIMARY CLINICAL RECORDS. [facility] Clinical Data [facility]. provides no warranty or guarantee of the accuracy or completeness of information in this document.
--- NOTE | 2024-05-17 11:28 | CT_ITS ---
The [address] [address] Patient Name: SAI BURRIS MRN: [id number] date: 1970 Sex: F Assigned Patient Location: ER Current Patient Location: Accession/Order Number: [id number] Exam Date: 05/17/2024 13:10 Report Date: 05/17/2024 13:12 At the request of: DUYEN SMITH Procedure: CT angio chest CT ANGIOGRAM OF THE CHEST, PULMONARY EMBOLISM PROTOCOL: CLINICAL INFORMATION: Chest pain and tachycardia shortness of breath. COMPARISON: Lung screening CT 10/22/2022 TECHNIQUE: Following intravenous injection of contrast CT scans of the chest were obtained using pulmonary embolism protocol. Coronal and sagittal reconstructed images, as well as volume rendered CT pulmonary angiographic images were also submitted.The CT exam was performed using one or more of the following dose reduction techniques: Automated exposure control, adjustment of the MA and/or Kv according to patient size, or use of the iterative reconstruction technique. FINDINGS: Pulmonary Vasculature: Contrast bolus is adequate for evaluation of pulmonary embolism. Pulmonary trunk appears nondilated. No filling defects are identified to suggest pulmonary embolism. Mediastinum : Thoracic aorta is normal in caliber. No pericardial effusion. No lymphadenopathy. The esophagus is grossly unremarkable. Lungs: Scattered areas of lung scarring. No consolidation pneumothorax or pleural effusion. Emphysema. Upper abdomen: No acute findings Soft tissue/bones: Soft tissues surrounding the chest wall demonstrate no acute findings. Osseous structures demonstrate degenerative change. CT/CT angio chest IMPRESSION: NO EVIDENCE OF ACUTE PULMONARY EMBOLISM OR PROCESS. EMPHYSEMA WITH MILD SCARRING. Impression dictated by: Alvaro Cain Jr., D.O.05/17/2024 1:12 PM Dictation Location: [employer] Electronically authenticated by: [id number] Y Date: 05/17/2024 13:12
--- NOTE | 2024-05-17 11:28 | ECG_ITS ---
[facility] Test Date: 2024-05-17 Pat Name: SAI BURRIS Department: Room: - Gender: Female Financial Data Analyst: : 1970 Requested By: Guilherme Rainey Order Number: [id number] Reading MD: LEVY FISCHER Measurements Intervals Rector Rate: 106 P: 56 IA: 140 QRS: 81 QRSD: 74 T: 70 QT: 302 QTc: 364 Interpretive Statements 1120 Sinus tachycardia 9140 abnormal rhythm ECG Compared to ECG 12/11/2021 13:49:25 Right-axis deviation no longer present Electronically Signed On 05-19-2024 10:37:04 EST by LEVY FISCHER
[2024-05-17] MEDS: IPRATROPIUM/ALBUTEROL SULFATE 3 ML AMPUL.NEB IH (11:51)
[2024-05-17 11:59] LABS: Basophils Absolute Auto 0.1 10^3/uL (0.0-0.1); Basophils Percent Auto 0.2 % (0.2-2.0); Eosinophils Absolute Auto 0.2 10^3/uL (0.0-0.7); Eosinophils Percent Auto 0.8 % (0.9-7.0); Hematocrit 45.6 % (36.0-48.0); Hemoglobin 14.1 g/dL (12.0-16.0); Immature Granulocytes Abs Auto 0.39 10^3/uL (0.00-0.03); Immature Granulocytes Pct Auto 1.9 % (0.0-0.5); Lymphocytes Absolute Auto 3.8 10^3/uL (1.2-3.8); Lymphocytes Percent Auto 18.4 % (20.5-60.0); Mean Corpuscular HGB Conc 30.9 g/dL (29.9-35.2); Mean Corpuscular Hemoglobin 29.1 pg (26.7-34.0); Mean Corpuscular Volume 94.2 fL (81.0-99.0); Mean Platelet Volume 10.8 fL (9.5-13.5); Monocytes Absolute Auto 1.3 10^3/uL (0.3-0.8); Monocytes Percent Auto 6.3 % (1.7-12.0); Neutrophils Absolute Auto 14.8 10^3/uL (1.4-6.5); Neutrophils Percent Auto 72.4 % (43.0-75.0); Platelet Count 266 10^3/uL (150-450); Red Blood Count 4.84 10^6/uL (4.20-5.40); Red Cell Distribution Width 14.9 % (11.0-15.0); White Blood Count 20.4 10^3/uL (4.0-11.0)
[2024-05-17] MEDS: PANTOPRAZOLE SODIUM 40 MG VIAL IV (12:01)
[2024-05-17] MEDS: KETOROLAC TROMETHAMINE 30 MG/ML VIAL IVP (12:01)
[2024-05-17 12:07] LABS: ABG PCO2 45.4 mmHg (35.0-45.0); Allen Test POSITIVE (POSITIVE); Base Excess ABG 8.3 mmol/L (-2.0-2.0); HCO3 ABG 32.2 mmol/L (22.0-26.0); Liters per Minute 4; O2 Mode NC; Oxygen Saturation ABG 96.1 %; PO2 ABG 70.6 mmHg (80.0-100.0); Puncture Site R RAD; pH ABG 7.458 (7.350-7.450)
--- NOTE | 2024-05-17 12:17 | ED.SOB1 ---
HPI - SOB/Dyspnea General Chief Complaint: Shortness of Breath/Dyspnea Stated Complaint: SOB CHEST PAIN Time Seen by Provider: 05/17/24 11:09 Source: patient Mode of arrival: Wheelchair History of Present Illness HPI Narrative: cc = chest pain and shortness of breath Patient presents with pain across the anterior midportion of her chest and down into the area underneath both breasts that began today while she was out and about . She was recently hospitalized for COPD exacerbation and given antibiotics for presumptive community-acquired pneumonia. She had not previously required oxygen in the past but apparently had oxygen requirement during this hospitalization and qualified for home O2. She is currently using 5 L/min nasal cannula oxygen. She admits to continued sensation of shortness of breath while having this pain. It is nonradiating in nature. She does have history of reflux disease but says that this pain is different. No associated lightheadedness, dizziness or palpitations. No lower extremity swelling. No history of blood clot. Pain is described as a tightness or pressure in nature that is occasionally stabbing. It does not radiate to the back or the extremities. Related Data Home Medications ?Medication ?Instructions ?Recorded ?Confirmed clonidine HCl 0.1 mg tablet 0.1 mg PO .qhs 03/15/24 05/05/24 lamotrigine 200 mg tablet 200 mg PO .qhs 03/15/24 05/05/24 mirtazapine 7.5 mg tablet 7.5 mg PO BEDTIME 03/15/24 05/05/24 omeprazole 20 mg capsule,delayed 20 mg PO DAILY 03/15/24 05/05/24 release alprazolam 0.25 mg tablet 0.25 mg PO BID 05/05/24 05/05/24 amitriptyline 25 mg tablet 25 mg PO BEDTIME 05/05/24 05/05/24 olanzapine 10 mg tablet 10 mg PO .QHS 05/05/24 05/05/24 olanzapine 2.5 mg tablet 2.5 mg PO .qhs 05/05/24 05/05/24 tiotropium bromide 2.5 2 puff inhalation DAILY 05/05/24 05/05/24 mcg/actuation mist for inhalation (Spiriva Respimat) Previous Rx's ?Medication ?Instructions ?Recorded albuterol sulfate 90 mcg/actuation 2 inh inhalation Q6H PRN shortness 05/08/24 aerosol inhaler (Ventolin HFA) of breath or wheezing #6.7 grams levofloxacin 750 mg tablet 750 mg PO DAILY #3 tabs 05/08/24 metronidazole 500 mg tablet 500 mg PO BID #6 tabs 05/08/24 ondansetron 4 mg disintegrating 4 mg PO Q6H PRN nausea and 05/08/24 tablet vomiting 4 days #10 tabs prednisone 20 mg tablet 20 mg PO DAILY #20 tabs 05/08/24 methocarbamol 750 mg tablet 750 mg PO Q6H PRN pain #30 tabs 05/17/24 nabumetone 750 mg tablet 750 mg PO BID PRN pain #14 tabs 05/17/24 Allergies Allergy/AdvReac Type Severity Reaction Status Date / Time No Known Drug Allergies Allergy Verified 05/05/24 01:26 [facility] Medical History Depression ?F32.A - Depression, unspecified (ICD-10) Bipolar 2 disorder ?F31.81 - Bipolar II disorder (ICD-10) Bipolar 1 disorder ?F31.9 - Bipolar disorder, unspecified (ICD-10) History of posttraumatic stress disorder (PTSD) ?Z86.59 - Personal history of other mental and behavioral disorders (ICD-10) Panic disorder ?F41.0 - Panic disorder [episodic paroxysmal anxiety] (ICD-10) COPD (chronic obstructive pulmonary disease) ?J44.9 - Chronic obstructive pulmonary disease, unspecified (ICD-10) Surgical History History of hysterectomy ?Z90.710 - Acquired absence of both cervix and uterus (ICD-10) History of cholecystectomy ?Z90.49 - Acquired absence of other specified parts of digestive tract (ICD-10) Hx of tonsillectomy ?Z90.89 - Acquired absence of other organs (ICD-10) History of appendectomy ?Z90.49 - Acquired absence of other specified parts of digestive tract (ICD-10) Family History Other Family history of CHF (congestive heart failure) Family history of COPD (chronic obstructive pulmonary disease) Family history of hypertension Social History Within the past year, how often did you have a drink containing alcohol: never Within the past year, how often did you have six or more drinks on one occasion: never Score interpretation: A score less than 3 is consistent with normal alcohol consumption. Smoking status: Former smoker Non-prescribed substance use: denies use Highest level of school completed/degree received: 11th grade Are you now , , , , never or living with a partner: In a typical week, how many times do you talk on the telephone with family, friends, or neighbors: 3 or more times per week How often do you get together with friends or relatives: 3 or more times per week Little interest or pleasure in doing things: not at all Feeling down, depressed, or hopeless: not at all Feel stressed/tense/nervous/anxious/difficulty sleeping: not at all Do you think of yourself as: straight/heterosexual Gender Identity: female Exam Narrative Exam Narrative: Nurses notes and vital signs reviewed and patient is not hypoxic. afebrile General: Well-appearing and in no apparent distress. Skin: Warm, dry, no pallor noted. No rash. Head: Normocephalic, atraumatic. Eye: Pupils are equal, round and EOMI. No scleral icterus. Cardiovascular: Tachycardia. Respiratory: No accessory muscle use or respiratory distress. Lungs are clear to auscultation, no wheezing, rales or rhonchi Chest Wall: Mild tenderness to the portion of the lower rib cage below each breast without crepitus or subcutaneous emphysema Musculoskeletal: normal ROM, no calf or popliteal tenderness, no lower extremity edema/swelling GI: Abdomen is soft, non-distended. Normal bowel sounds. No solid or pulsatile masses appreciated. No tenderness to palpation. No rebound, guarding, or rigidity noted. Neurological: A&O x4. No cranial nerve dysfunction observed. No truncal ataxia. Moves all extremities. Sensation intact. Psychiatric: Cooperative and interactive. Normal mood and affect. Constitutional Vital Signs, click to edit/add: Last Vital Signs Pulse 112 H 05/17/24 11:06 Resp 20 05/17/24 11:06 BP 110/93 H 05/17/24 11:06 Pulse Ox 97 05/17/24 11:25 O2 Del Method Nasal Cannula 05/17/24 11:25 O2 Flow Rate 5 05/17/24 11:25 Course Vital Signs Vital signs: Vital Signs Pulse Rate 112 H 05/17/24 11:06 Respiratory Rate 20 05/17/24 11:06 Blood Pressure 110/93 H 05/17/24 11:06 Pulse Oximetry 97 05/17/24 11:06 Oxygen Delivery Method Nasal Cannula 05/17/24 11:06 Oxygen Delivery Flow Rate 5 05/17/24 11:06 Pulse Rate 112 H 05/17/24 11:06 Respiratory Rate 20 05/17/24 11:06 Blood Pressure 110/93 H 05/17/24 11:06 Pulse Oximetry 97 05/17/24 11:25 Oxygen Delivery Method Nasal Cannula 05/17/24 11:25 Oxygen Delivery Flow Rate 5 05/17/24 11:25 MDM - SOB/Dyspnea MDM Narrative Medical decision making narrative: Patient was placed on manager monitoring and EKG obtained. Blood drawn and sent for evaluation. She was given IV Solu-Medrol and a DuoNeb treatment Due to her recent hospitalization for hypoxia, presumptive diagnosis of community-acquired pneumonia for which she has finished her antibiotic therapy but continues to have symptoms, and now development of chest pain with tachycardia found on examination -I ordered the patient undergo CT angio scanning of the chest. White blood cell count elevated at 20.4. ABG with pH of 7.46 (slightly elevated), pCO2 of 45.4 (slightly elevated), PaO2 of 70.6 (low) despite being on 4 L/min nasal cannula oxygen. BMP is normal with negative troponin and negative BNP CT angio chest per radiologist = no evidence of acute pulmonary embolism or process. Emphysema with mild scarring. Patient was informed of results and discharged home. She felt relieved that her ED evaluation did not reveal any worrisome pathology. I prescribed a short course of relafen and robaxin for her to take at home for the pain. Medical Records Attestation: I reviewed the patient's medical records. Lab Data Attestation: I reviewed the patient's lab results. Labs: Lab Results 05/17/24 05/17/24 Range/Units 11:51 11:55 WBC 20.4 H (4.0-11.0) 10^3/uL RBC 4.84 (4.20-5.40) 10^6/uL Hgb 14.1 (12.0-16.0) g/dL Hct 45.6 (36.0-48.0) % MCV 94.2 (81.0-99.0) fL MCH 29.1 (26.7-34.0) pg MCHC 30.9 (29.9-35.2) g/dL RDW 14.9 (11.0-15.0) % Plt Count 266 (150-450) 10^3/uL MPV 10.8 (9.5-13.5) fL Neut % (Auto) 72.4 (43.0-75.0) % Lymph % (Auto) 18.4 L (20.5-60.0) % [place] % (Auto) 6.3 (1.7-12.0) % Eos % (Auto) 0.8 L (0.9-7.0) % Baso % (Auto) 0.2 (0.2-2.0) % Neut # (Auto) 14.8 H (1.4-6.5) 10^3/uL Lymph # (Auto) 3.8 (1.2-3.8) 10^3/uL [place] # (Auto) 1.3 H (0.3-0.8) 10^3/uL Eos # (Auto) 0.2 (0.0-0.7) 10^3/uL Baso # (Auto) 0.1 (0.0-0.1) 10^3/uL Abs Immat Gran (auto) 0.39 H (0.00-0.03) 10^3/uL Imm/Tot Granulo (auto) 1.9 H (0.0-0.5) % Puncture Site R rad ABG pH 7.458 H (7.350-7.450) ABG pCO2 45.4 H (35.0-45.0) mmHg ABG pO2 70.6 L (80.0-100.0) mmHg ABG HCO3 32.2 H (22.0-26.0) mmol/L ABG O2 Saturation 96.1 % ABG Base Excess 8.3 H (-2.0-2.0) mmol/L Dexter Test Positive (POSITIVE) O2 Liters/Min 4 Sodium 142 (136-145) mmol/L Potassium 3.5 (3.5-5.1) mmol/L Chloride 103 (98-107) mmol/L Carbon Dioxide 34.5 H (21.0-32.0) mmol/L Anion Gap 8.0 BUN 10.0 (7.0-18.0) mg/dL Creatinine 1.09 H (0.55-1.02) mg/dL Est GFR ( Amer) >60 (>=60 mL/min/1.73m^2) Est GFR (Non-Af Amer) 53 L (>=60 mL/min/1.73m^2) BUN/Creatinine Ratio 9.2 Glucose 107 H (74-106) mg/dL Calcium 8.4 L (8.5-10.1) mg/dL Troponin I High Sens <4.0 L (4.0-51.3) pg/mL NT-Pro-B Natriuret Pep 137.0 (<=900.0) pg/mL ABG Data ABG results: See above Attestation: I personally reviewed and interpreted this ABG as follows: Interpretation: Hypoxia with minimal CO2 retention Imaging Data CT scan - chest: Radiologist's impression: ITS Impressions Chest CTA 05/17/24 11:28 IMPRESSION: NO EVIDENCE OF ACUTE PULMONARY EMBOLISM OR PROCESS. EMPHYSEMA WITH MILD SCARRING. Impression dictated by: Navid Casanova Jr.OYaw05/17/2024 1:12 PM Dictation Location: [place] [id number] Electronically authenticated by: [id number] Y Date: 05/17/2024 13:12 ECG Data Attestation: I personally reviewed and interpreted this ECG as follows: Interpretation: EKG interpretation: Emergency Department physician interpretation. Sinus tachycardia at 106 bpm. Normal axis, normal intervals and no ST segment elevation or depression. Discharge Plan Discharge Chief Complaint: Shortness of Breath/Dyspnea Clinical Impression: Chest pain Patient Disposition: Home, Self-Care Time of Disposition Decision: 13:25 Prescriptions / Home Meds: New nabumetone 750 mg tablet 750 mg PO BID PRN (Reason: pain) Qty: 14 0RF methocarbamol 750 mg tablet 750 mg PO Q6H PRN (Reason: pain) Qty: 30 0RF No Action clonidine HCl 0.1 mg tablet 0.1 mg PO .qhs lamotrigine 200 mg tablet 200 mg PO .qhs omeprazole 20 mg capsule,delayed release(DR/EC) 20 mg PO DAILY mirtazapine 7.5 mg tablet 7.5 mg PO BEDTIME alprazolam 0.25 mg tablet 0.25 mg PO BID amitriptyline 25 mg tablet 25 mg PO BEDTIME olanzapine 2.5 mg tablet 2.5 mg PO .qhs Spiriva Respimat 2.5 mcg/actuation mist 2 puff INHALATION DAILY olanzapine 10 mg tablet 10 mg PO .QHS prednisone 20 mg tablet 20 mg PO DAILY Qty: 20 0RF Rx Instructions: 3 tab x 3 days, 2 tabs x 3 days, 1 tab x 3 days. 1/2 tab x 4 days ondansetron 4 mg tablet,disintegrating 4 mg PO Q6H PRN (Reason: nausea and vomiting) 4 Days Qty: 10 0RF levofloxacin 750 mg tablet 750 mg PO DAILY Qty: 3 0RF metronidazole 500 mg tablet 500 mg PO BID Qty: 6 0RF albuterol sulfate [Ventolin HFA] 90 mcg/actuation HFA aerosol inhaler 2 inh inhalation Q6H PRN (Reason: shortness of breath or wheezing) Qty: 6.7 0RF Print Language: [place] Instructions: Chest Pain (ED) Referrals: ROQUE MORALES [Primary Care Provider] - 1 week
[2024-05-17 12:23] LABS: BUN Creatinine Ratio 9.2; Calcium 8.4 mg/dL (8.5-10.1); Carbon Dioxide 34.5 mmol/L (21.0-32.0); Chloride 103 mmol/L (98-107); Estimated GFR (African America >60 (>=60 mL/min/1.73m^2); Estimated GFR (Non-African Ame 53 (>=60 mL/min/1.73m^2); Glucose 107 mg/dL (74-106); Potassium 3.5 mmol/L (3.5-5.1); Sodium 142 mmol/L (136-145); Troponin I High Sensitivity <4.0 pg/mL (4.0-51.3)
[2024-05-17] MEDS: METHYLPREDNISOLONE SOD SUCC PF 125 MG/2 ML VIAL IVP (12:55)
== END 2024-05-17 13:46 | disposition home or self-care (01) ==
PROVIDERS: Emergency Provider Emergency Medicine; PCP Nurse Practitioner
DX: R07.9 Chest pain, unspecified (principal); J44.9 Chronic obstructive pulmonary disease, unspecified; Z99.81 Dependence on supplemental oxygen; K21.9 Gastro-esophageal reflux disease without esophagitis; Z90.710 Acquired absence of both cervix and uterus; Z90.49 Acquired absence of other specified parts of digestive tract; Z87.891 Personal history of nicotine dependence; R06.02 Shortness of breath
CPT/HCPCS: 36415; 36600; 71275; 80048; 82805; 83880; 84484; 85025; 93005; 94640; 96374; 96375; 99285; J1885; J2919; Q9967

== ENCOUNTER 2024-05-29 14:05 | Inpatient (IN) | payer OTHER, SELFPAY ==
[2024-05-29] VITALS (31 sets, daily range): BP systolic 97–115; BP diastolic 66–81; PULSE 100–128; TEMP 36.3–37.6; O2SAT 95–100; BMI 21.3; BMI 21.8
--- OUTSIDE RECORDS SUMMARY | 2024-05-29 14:28 | XMS_ITS | CCD ---
Author Organization [facility] Care Team Providers Care Oncology Pharmacist Name Role Phone Cristina Iqbal CNP Primary Care Provider [phone] Vipin Pina Attending Unavailable Roshni Werner Attending Unavailable Cristina Iqbal CNP Primary Care Provider [phone] CRISTINA IQBAL Primary Care Unavailable JENNY, ALESSANDROENDER Attending Unavailable CRISTINA IQBAL Primary Care Unavailable JENNY, ALESSANDROENDER Attending Unavailable CRISTINA IQBAL Primary Care Unavailable JENNY, ALESSANDROENDER Attending Unavailable CRISTINA IQBAL Primary Care Unavailable KENNEDYOT, ALESSANDROENDER Attending Unavailable Cristina Iqbal CNP Primary Care Provider [phone] Cristina Iqbal CNP Primary Care Provider [phone] Cristina Iqbal CNP Primary Care Provider CRISTINA [...] MORALES Referring Unavailable TIFFANI MORALES Attending Unavailable [facility], CRISTINA ALEE Primary Care Unavailable YAN GARCIA JR Attending Unavailable [facility], CRISTINA ALEE Primary Care Unavailable ANASTASIYA MOSQUEDA Referring Unavailable [facility], [facility] Primary Care Unavailable ANNELISE FRAZIER Admitting Unavailable ANNELISE FRAZIER Attending Unavailable ANNELISE FRAZIER Consulting Unavailable BELEN REGAN Consulting Unavailable IRINA SEGURA Admitting Unavailable IRINA SEGURA Attending Unavailable [facility], [facility] Primary Care Unavailable MISC, DR DECKER Consulting Unavailable GEHLOT, UPENDER Admitting Unavailable GEHLOT, UPENDER Attending Unavailable [facility], [facility] Referring Unavailable [facility], [facility] Primary Care Unavailable GEHLOT, UPENDER Consulting Unavailable BENEDICT, DR RYDER Admitting Unavailable BENEDICT, DR RYDER Attending Unavailable [facility], [facility] Primary Care Unavailable BENEDICT, DR RYDER Consulting Unavailable MISC, DR DECKER Admitting Unavailable MISC, DR DECKER Attending Unavailable AICHOLZ, [facility] Primary Care Unavailable MISC, DR DECKER Consulting Unavailable [facility], [facility] Primary Care Unavailable PAY ., DR ZULUAGA Admitting Unavailable PAY ., DR ZULUAGA Attending Unavailable PAY ., DR ZULUAGA Consulting Unavailable CHITRA ALFARO Consulting Unavailable [facility], [facility] Primary Care Unavailable PAY ., DR ZULUAGA Admitting Unavailable PAY ., DR ZULUAGA Attending Unavailable ZIEBER, DR RYDER R Consulting Unavailable PAY ., DR ZULUAGA Consulting Unavailable [facility], [facility] Primary Care Unavailable GELA WESLEY Admitting Unavailable GELA WESLEY Attending Unavailable BARBI HENRY Consulting Unavailable GELA WESLEY Consulting [facility]available [facility] Primary Care Physician Lala Zarco Primary Care Physician [facility] Primary Care Unavailable Sandoval Rae Admitting Unavailable Sandoval Rae Attending Unavailable Sandoval Rae Referring Unavailable Sandoval Rae Attending Unavailable Sandoval Rae Attending Unavailable Sandoval Rae Attending Unavailable Sandoval Rae Attending Unavailable Lala Zarco Attending Unavailable Lala Zarco Attending Unavailable CHANCE SERRANO Primary Care Unavailable Lala Zarco Attending Unavailable Sandoval Rae Admitting Unavailable Sandoval Rae Attending Unavailable Sandoval Rae Referring Unavailable Lala Zarco Admitting Unavailable Lala Zarco Attending Unavailable Eligio Noe Attending Unavailable Eligio Noe Admitting Unavailable Cristina Iqbal Primary Care Unavailable Medications Current Medications Medication Drug Class(es) [...] bedtime), # 30 tab(s), Refills(s) 5, Pharmacy: [facility]/pharmacy #[id number], 169, cm, 03/23/24 13:17:00 EST, [...] day(s), # 10 cap(s), Refills(s) 0, Pharmacy: [facility]/pharmacy #[id number], 172, cm, 09/24/23 13:02:00 EDT, Height/Length Dosing, 61.2, kg, 09/24/23 13:02:00 EDT, Weight Dosing Start Date: 09/24/23 Stop Date: 09/29/23 Status: Ordered cholestyramine resin 4000 mg powder for oral suspension (5 sources) Bile Acid Sequestrant Start: Questran 4 g/9 g oral powder = 1 packet(s), Oral, BID, # 60 EA, Refills(s) 2, [id number], 169, cm, 01/16/24 10:14:00 EDT, Height/Length Dosing, 63.9, kg, 01/16/24 10:14:00 EDT, Weight Dosing Start Date: 01/16/24 Status: Ordered cloNIDine hydrochloride 0.2 mg oral tablet (20 sources) Central alpha-2 Adrenergic Agonist Start: End: take 1 tablet by mouth at bedtime cloNIDine 0.2 mg Tab 0.2 mg = 1 tab(s), Oral, Bedtime, # 30 tab(s), Refills(s) 1, [id number], 173, cm, 05/24/20 14:42:00 EST, Height/Length Dosing, 50.1, kg, 05/24/20 14:42:00 EST, Weight Dosing Start Date: 05/24/20 Status: Ordered colestipol hydrochloride 1000 mg oral tablet (5 sources) Bile Acid Sequestrant Start: take 2 tablets by mouth twice daily colestipol 1 g Tab 2 gm = 2 tab(s), Oral, BID, with a full glass of water, # 120 tab(s), Refills(s) 1, [id number], 169, cm, 01/16/24 10:14:00 EDT, Height/Length [...] anxiety, # 30 tab(s), Refills(s) 0, Pharmacy: [facility]/pharmacy #[id number], 173, cm, 04/26/20 13:07:00 EST, [...] AFTERNOON, # 30 tab(s), Refills(s) 0, Pharmacy: [facility] STORE [id number], 169.7, cm, 11/26/23 15:32:00 EDT, Height/Length Dosing, [...] Bedtime, # 30 tab(s), Refills(s) 0, Pharmacy: [facility]/pharmacy #[id number], 169.7, cm, 10/03/23 9:38:00 EDT, [...] DAY, # 30 cap(s), Refills(s) 0, Pharmacy: [id number], 169, cm, 02/25/24 9:14:00 EST, Height/Length Dosing, 62.2, kg, 02/25/24 9:14:00 EST, Weight Dosing Start Date: 03/23/24 Status: Ordered Start: 02-24-2024 take 1 capsule by [facility] once daily omeprazole 20 mg Cap-DR See Instructions, TAKE 1 CAPSULE BY MOUTH EVERY DAY, # 30 cap(s), Refills(s) 0, Pharmacy: [id number], 169, cm, 02/21/24 8:47:00 EST, Height/Length Dosing, 62.2, kg, 02/21/24 8:47:00 EST, Weight Dosing Start Date: 02/24/24 Status: Ordered Start: 01-20-2024 take 1 capsule by [facility] once daily omeprazole 20 mg Cap-DR See Instructions, TAKE 1 CAPSULE BY MOUTH EVERY DAY, # 30 cap(s), Refills(s) 0, Pharmacy: [id number], 169, cm, 01/16/24 10:14:00 EDT, Height/Length Dosing, 63.9, kg, 01/16/24 10:14:00 EDT, Weight Dosing Start Date: 01/20/24 Status: Ordered Start: 12-04-2023 take 1 capsule by [facility] once daily omeprazole 20 mg Cap-DR See Instructions, TAKE 1 CAPSULE BY MOUTH EVERY DAY, # 30 cap(s), Refills(s) 0, [id number], 169.7, cm, 11/26/23 15:32:00 EDT, Height/Length Dosing, 62.1, kg, 11/26/23 15:32:00 EDT, Weight Dosing Start Date: 12/04/23 Status: Ordered ondansetron 4 mg oral tablet (20 sources) Serotonin-3 Receptor Antagonist Start: 02-27-2024 take 1 tablet by mouth every eight hours as needed for nausea Zofran 4 mg Tab 4 mg = 1 tab(s), Oral, q8hr, PRN Nausea, # 30 tab(s), Refills(s) 0, [id number], 169, cm, 02/25/24 9:14:00 EST, Height/Length Dosing, 62.2, kg, 02/25/24 9:14:00 EST, Weight Dosing Start Date: 02/27/24 Status: Ordered Start: 02-18-2024 ondansetron 8 mg Dis Tab See Instructions, DISSOLVE 1 TABLET ON THE TONGUE EVERY 8 HOURS NEEDED FOR NAUSEA AND VOMITING, # 24 tab(s), Refills(s) 0, [id number], 169, cm, 02/18/24 11:55:00 EST, Height/Length Dosing, 61.8, kg, 02/18/24 11:55:00 EST, Weight Dosing Start Date: 02/18/24 Status: Ordered Start: 12-20-2023 take 1 tablet by [facility] every six hours as needed for nausea ondansetron 4 mg Dis Tab 4 mg = 1 tab(s), Oral, q6hr, PRN Nausea/Vomiting, # 30 tab(s), Refills(s) 0, [id number], 169.7, cm, 11/26/23 15:32:00 EDT, Height/Length [...] Nausea, # 10 tab(s), Refills(s) 0, Pharmacy: [facility]/pharmacy #[id number], 173, cm, 04/26/20 13:07:00 EST, [...] by mouth once daily. polyethylene glycol 3350 89238 mg powder for oral solution (18 sources) [...] TID, # 15 tab(s), Refills(s) 1, Pharmacy: [facility]/pharmacy #[id number], 169, cm, 03/23/24 13:17:00 EST, Height/Length Dosing, 64.9, kg, 03/23/24 13:17:00 EST, Weight Dosing Start Date: 03/23/24 Status: Ordered Start: 09-24-2023 take 1 tablet by shahzad three times daily promethazine 25 mg Tab 25 mg = 1 tab(s), Oral, TID, # 15 tab(s), Refills(s) 0, Pharmacy: [facility]/pharmacy #[id number], 172, cm, 09/24/23 13:02:00 EDT, Height/Length Dosing, 61.2, kg, 09/24/23 13:02:00 EDT, Weight Dosing Start Date: 09/24/23 Status: Ordered Start: 12-03-2021 take 1 tablet by shahzad every four hours promethazine 25 mg Tab 25 mg = 1 tab(s), Oral, q4hr, # 12 tab(s), Refills(s) 0, Pharmacy: [facility]/pharmacy #[id number], 172.9, cm, 12/03/21 10:15:00 EDT, Height/Length Dosing, 46.2, kg, 12/03/21 10:15:00 EDT, Weight Dosing Start Date: 12/03/21 Status: Ordered Start: 12-03-2021 Phenergan 25 m g Supp 25 mg = 1 supp, Rectal, q6hr, PRN as needed for nausea, Insert one per rectum every six hours as needed for nausea and vomiting, # 6 EA, Refills(s) 0, Pharmacy: [facility]/pharmacy #[id number], 172.9, cm, 12/03/21 10:15:00 EDT, [...] day(s), # 56 tab(s), Refills(s) 0, [id number], 169, cm, 02/21/24 8:47:00 EST, Height/Length [...] Daily, # 4 gm, Refills(s) 11, Pharmacy: [facility]/pharmacy #[id number], 169.7, cm, 11/26/23 15:32:00 EDT, [...] TID, # 15 tab(s), Refills(s) 0, Pharmacy: [facility]/pharmacy #[id number], 172, cm, 09/24/23 13:02:00 EDT, Height/Length Dosing, 61.2, kg, 09/24/23 13:02:00 EDT, Weight Dosing Start Date: 09/24/23 Status: Ordered Zofran ODT 8 mg Tab-Dis (5 sources) Start: 03-23-2024 take 1 tablet under the tongue every eight hours as needed for nausea Zofran ODT 8 mg Tab-Dis 8 mg = 1 tab(s), SubLingual, q8hr, PRN Nausea/Vomiting, # 24 tab(s), Refills(s) 0, Pharmacy: [facility]/pharmacy #[id number], 169, cm, 03/23/24 13:17:00 EST, Height/Length Dosing, 64.9, kg, 03/23/24 13:17:00 EST, Weight Dosing Start Date: 03/23/24 Status: Ordered Start: 02-12-2024 take 1 tablet under the tongue every eight hours as needed for nausea Zofran ODT 8 mg Tab-Dis 8 mg = 1 tab(s), SubLingual, q8hr, PRN Nausea/Vomiting, # 24 tab(s), Refills(s) 0, [id number], 169, cm, 01/16/24 10:14:00 EDT, Height/Length Dosing, 63.9, kg, 01/16/24 10:14:00 EDT, Weight Dosing Start Date: 02/12/24 Status: Ordered Start: 01-23-2024 take 1 tablet under the tongue every eight hours as needed for nausea Zofran ODT 8 mg Tab-Dis 8 mg = 1 tab(s), SubLingual, q8hr, PRN Nausea/Vomiting, # 24 tab(s), Refills(s) 0, [id number], 169, cm, 01/16/24 10:14:00 EDT, Height/Length [...] sources) H/O: high risk medication; Translations: [Other custodial (current) drug therapy] Episodic Other and unspecified [...] 2021 Episodic Other aftercare (7 sources) Other custodial (current) drug therapy; Translations: [Other custodial (current) drug therapy] Onset: 09-19-2021 Episodic Other [...] BMI 23.0-23.9, adult Former smoker Pickup at [facility]/pharmacy #[id number] Changed albuterol (albuterol 0.083% Inh Misty 3 [...] 2 Inhalation Inhalation Every day Pharmacy Information [facility]/pharmacy #[id number]: [address] [place], [place] [phone] Allergies No Known Allergies Problems Ongoing - [...] us for your care. Normal G[facility]a [facility] Family Medicine Office/Clini c Noteon 05-12-2024 Family Medicine Office/Clinic Note Family Medicine Office/Clinic Note HPI Staff Sai is a 53 year old female presenting for TCM follow up TCM: Hospital: [facility] Admission date: 05/05/24 Discharge date: 05/08/24 [...] q6hr for wheezing, 60 EA, Refill(s) 1, [facility]/pharmacy #[id number], 169, cm, 05/12/24 10:51:00 EST, Height/Length Dosing, 68, kg, 05/12/24 10:51:00 EST, Weight Dosing 3. Former smoker (Z87.891: Personal history of nicotine dependence) continue not smoking Ordered: albuterol, 2.5 mg, 3 mL, Inhalation, q6hr for wheezing, 60 EA, Refill(s) 1, [facility]/pharmacy #[id number], 169, cm, 05/12/24 10:51:00 EST, Height/Length Dosing, 68, kg, 05/12/24 10:51:00 EST, Weight Dosing Orders: ondansetron, See Instructions, DISSOLVE 1 TABLET ON THE TONGUE EVERY 8 HOURS NEEDED FOR NAUSEA AND VOMITING, # 24 tab(s), Refills(s) 0, Pharmacy: [facility]/pharmacy #[id number], 169, cm, 02/18/24 11:55:00 EST, Height/Length Dosing, 61.8, kg, 02/18/24 11:55:00 EST, Weight D... promethazine, See Instructions, TAKE 1 TABLET BY MOUTH THREE TIMES A DAY, # 30 tab(s), Refills(s) 1, Pharmacy: [facility]/pharmacy #[id number], 169, cm, 02/18/24 11:55:00 EST, Height/Length Dosing, 61.8, kg, 02/18/24 11:55:00 EST, Weight Dosing promethazine, 25 mg = 1 tab(s), Oral, TID, # 15 tab(s), Refills(s) 0, Pharmacy: [facility]/pharmacy #[id number], 169, cm, 01/16/24 10:14:00 EDT, [...] mcg/inh in (more content not included)... Normal [facility] Comment on above: Result Comment: Elec tronically [...] Tetrahydrocannabinol (THC) dependence Refills: 5 Pickup at [facility]/pharmacy #[id number] Unchanged albuterol (albuterol 0.083% Inh Misty 3 [...] ACT 2 (more content not included)... Normal [facility] Gastroenterology Office/Clin ic Noteon 03-23-2024 Gastroenterology Office/Clinic [...] bedtime), # 30 tab(s), Refills(s) 5, [id number], 169, cm, 03/23/24 13:17:00 EST, Height/Length Dosing, 64.9, kg, 03/23/24 13:17:00 EST, Weight Dosing 2. Epigastric pain (R10.13: Epigastric pain) Ordered: amitriptyline, 25 mg = 1 tab(s), Oral, Once a day (at bedtime), # 30 tab(s), Refills(s) 5, [id number], 169, cm, 03/23/24 13:17:00 EST, Height/Length Dosing, 64.9, kg, 03/23/24 13:17:00 EST, Weight Dosing 3. Chronic diarrhea (K52.9: Noninfective gastroenteritis and colitis, unspecified) Ordered: amitriptyline, 25 mg = 1 tab(s), Oral, Once a day (at bedtime), # 30 tab(s), Refills(s) 5, [id number], 169, cm, 03/23/24 13:17:00 EST, Height/Length Dosing, 64.9, kg, 03/23/24 13:17:00 EST, Weight Dosing 4. History of colon polyps (Z86.0100: Personal history of colon polyps, unspecified) Ordered: amitriptyline, 25 mg = 1 tab(s), Oral, Once a day (at bedtime), # 30 tab(s), Refills(s) 5, [id number], 169, cm, 03/23/24 13:17:00 EST, Height/Length Dosing, 64.9, kg, 03/23/24 13:17:00 EST, Weight Dosing 5. Schatzki's ring (K22.2: Esophageal obstruction) Ordered: amitriptyline, 25 mg = 1 tab(s), Oral, Once a day (at bedtime), # 30 tab(s), Refills(s) 5, Pharmacy: [facility]/pharmacy #[id number], 169, cm, 03/23/24 13:17:00 EST, Height/Length Dosing, 64.9, kg, 03/23/24 13:17:00 EST, Weight Dosing 6. 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 Tetrahydr (more content not included)... Normal [facility] Comment on above: Result Comment: Elec tronically Signed By: Bucth SANDOVAL, Sandoval Frost\.br\Date and Time Signed: 03/23/24 13:45 EST Urine Cultureon 03-15-2024 Bacteria identified Cx Nom (U) 50,000 colonies/ml mixed bacterial skin contaminants including mixed gram negative bacilli - 2 Days PERFORMED BY: [place] [address] PATHOLOGIST CASTABLES WORKER HARRIS CUELLAR M.D. Normal [facility] Comment on above: Performed By: #### C UU #### [address] Surgical Pathology Reporton 03-02-2024 Surgical [place] [address]- Surgical Pathology Report Collected Date/Time: 02/25/2024 10:41 [...] INFLAMMATION, GRANULOMA OR DYSPLASIA. (Electronic Signature) Prince Olvias MD PhD 03/02/2024 09:55 Clinical Information Nausea, [...] Entire specimen submitted in one cassette. () [facility] Microscopic Description Microscopic examination performed unless gross only specified. The use of one or more reagents in the above tests is regulated as an analyte specific reagent (ASR). The test or tests are ordered following initial H&E microscopic examination. The Surgical Pathology Report Collected Date/Time: 02/25/2024 10:41 EST Pathologist: Brendon SANDOVAL PhD, Prince hC Received Date/Time: 02/25/2024 12:53 EST Butch SANDOVAL, Sandoval Rae MD, Sandoval Frost Microscopic Description performance characteristics were determined by the [facility] Surgical Pathology. They have not been cleared or approved by the US Food and Drug Administration. The FDA has determined that such clearance or approval is not necessary. These tests are used for clinical purposes. They should not be regarded as investigational or for research. Appropriate positive and negative controls are performed and are acceptable. [facility] Comment on above: Performed By: #### [id number] #### [facility] [address] [place] [address] Main OR Intraoperative Recor don 02-27-2024 Main OR Intraoperative Record Main OR Intraoperative Record IntraOp Document Type FT Summary Primary Physician: Sandoval Rae MD Finalized Date/Time: 02/27/24 07:51:23 Pt. Name: SAI PINEDA Domo SolomonB./Sex: 1970 Female Med Rec #: [id number] Physician: Sandoval Rae MD Financial #: [id number] Pt. Type: O Room/Bed: / Admit/Disch: 02/25/24 [...] Sandoval Allen RN, Chucho Calderon Role Performed AQUACULTURAL WORKER SUPERVISOR Surgeon - Primary Post Tensioning Ironworker Helper - Primary Time In 02/25/24 10:32:00 02/25/24 [...] Chucho Allen RN, Mouchli MD, Sandoval Frost, [facility], Luis Manuel Jacob Kirstyn K Time Out [...] (more content not included)... Normal [facility] Discharge Instructionson Discharge Instructions Discharge Instructions SAI [...] Historical (more content not included)... Normal [facility] Comment on above: Result Comment: [...] Diagnosis: Nausea, vomiting, and epigastric pain -EGD [facility] Main OR PACU II Recordon Main OR PACU II Record Main OR PACU II Record PACU Phase II Document Type FT Summary Primary Physician: Sandoval Rae MD Finalized Date/Time: 02/25/24 11:30:19 Pt. Name: SAI PINEDA /Sex: 1970 Female Med Rec #: [id number] Physician: Sandoval Rae MD Financial #: [id number] Pt. Type: O Room/Bed: / Admit/Disch: 02/25/24 [...] Signed By: Christin Hensley I 02/25/24 11:30 [facility] Main OR Preoperative Recordo n 02-25-2024 Main OR Preoperative Record Main OR Preoperative Record Holding Area Document Type FT Summary Primary Physician: Sandoval Rae MD Finalized Date/Time: 02/25/24 09:16:52 Pt. Name: SAI PINEDA/Sex: 1970 Female Med Rec #: [id number] Physician: Sandoval Rae MD Financial #: [id number] Pt. Type: O Room/Bed: / Admit/Disch: 02/25/24 [...] Montilla RN 02/25/24 09:16 Normal [facility] Operative Reporton Operative Report Operative Report Patient: [...] day(s), # 56 tab(s), Refills(s) 0, [id number], 169, cm, 02/21/24 8:47:00 EST, Height/Length Dosing, 62.2, kg, 02/21/24 8:47:00 EST, Weight Dosing Questran 4 g/9 g oral powder: = 1 packet(s), Oral, BID, # 60 EA, Refills(s) 2, Pharmacy: [facility]/pharmacy #[id number], 169, cm, 01/16/24 10:14:00 EDT, Height/Length Dosing, 63.9, kg, 01/16/24 10:14:00 EDT, Weight Dosing Spiriva Respimat 60 ACT 2.5 mcg/inh inhalation aerosol: = 2 inh, Inhalation, Daily, # 4 gm, Refills(s) 11, [id number], 169.7, cm, 11/26/23 15:32:00 EDT, Height/Length Dosing, 62.1, kg, 11/26/23 15:32:00 EDT, Weight Dosing Zofran 4 mg Tab: 4 mg = 1 tab(s), Oral, q8hr, PRN Nausea, # 10 tab(s), Refills(s) 0, [id number], 173, cm, 04/26/20 13:07:00 EST, Height/Length Dosing, 52.8, kg, 04/26/20 13:07:00 EST, Weight Dosing Zofran ODT 4 mg Tab-Dis: 4 mg = 1 tab(s), Oral, TID, # 15 tab(s), Refills(s) 0, [id number], 172, cm, 09/24/23 13:02:00 EDT, Height/Length Dosing, 61.2, kg, 09/24/23 13:02:00 EDT, Weight Dosing Zofran ODT 8 mg Tab-Dis: 8 mg = 1 tab(s), SubLingual, q8hr, PRN Nausea/Vomiting, # 24 tab(s), Refills(s) 0, [id number], 169, cm, 01/16/24 10:14:00 EDT, Height/Length Dosing, 63.9, kg, 01/16/24 10:14:00 EDT, Weight Dosing cloNIDine 0.2 mg Tab: 0.2 mg = 1 tab(s), Oral, Bedtime, # 30 tab(s), Refills(s) 1, [id number], 173, cm, 05/24/20 14:42:00 EST, Height/Length Dosing, 50.1, kg, 05/24/20 14:42:00 EST, Weight Dosing colestipol 1 g Tab: 2 gm = 2 tab(s), Oral, BID, with a full glass of water, # 120 tab(s), Refills(s) 1, [id number], 169, cm, 01/16/24 10:14:00 EDT, Height/Length Dosing, 63.9, kg, 01/16/24 10:14:00 EDT, Weight Dosing hydrOXYzine hydrochloride 50 mg oral tablet: 50 mg = 1 tab(s), Oral, TID, PRN as needed for anxiety, # 30 tab(s), Refills(s) 0, [id number], 173, cm, 04/26/20 13:07:00 EST, Height/Length Dosing, 52.8, kg, 04/26/20 13:07:00 EST, Weight Dosing lamotrigine 25 mg Tab: See Instructions, TAKE 1 TABLET BY MOUTH EVERY DAY IN THE AFTERNOON, # 30 tab(s), Refills(s) 0, Pharmacy: [facility], 169.7, cm, 11/26/23 15:32:00 EDT, Height/Length Dosing, 62.1, kg, 11/26/23 15:32:00 EDT, Weight Dosing mirtazapine 7.5 mg oral tablet: 7.5 mg = 1 tab(s), Oral, Bedtime, # 30 tab(s), Refills(s) 0, [id number], 169.7, cm, 10/03/23 9:38:00 EDT, Height/Length Dosing, 62.5, kg, 10/03/23 9:38:00 EDT, Weight Dosing omeprazole 20 mg Cap-DR: See Instructions, TAKE 1 CAPSULE BY MOUTH EVERY DAY, # 30 cap(s), Refills(s) 0, Pharmacy: [id number], 169, cm, 02/21/24 8:47:00 EST, Height/Length Dosing, 62.2, kg, 02/21/24 8:47:00 EST, Weight Dosing ondansetron 4 mg Dis Tab: 4 mg = 1 tab(s), Oral, q6hr, PRN Nausea/Vomiting, # 30 tab(s), Refills(s) 0, [id number], 169.7, cm, 11/26/23 15:32:00 EDT, Height/Length Dosing, 62.1, kg, 11/26/23 15:32:00 EDT, Weight Dosing ondansetron 8 mg Dis Tab: See Instructions, DISSOLVE 1 TABLET ON THE TONGUE EVERY 8 HOURS NEEDED FOR NAUSEA AND VOMITING, # 24 tab(s), Refills(s) 0, [id number], 169, cm, 02/18/24 11:55:00 EST, Height/Length Dosing, 61.8, kg, 02/18/24 11:55:00 EST, Weight D... promethazine 25 mg Tab: 25 mg = 1 tab(s), Oral, TID, # 15 tab(s), Refills(s) 0, [id number], 169, cm, 01/16/24 10:14:00 EDT, Height/Length Dosing, 63.9, kg, 01/16/24 10:14:00 EDT, Weight Dosing promethazine 25 mg Tab: See Instructions, TAKE 1 TABLET BY MOUTH THREE TIMES A DAY, # 30 tab(s), Refills(s) 1, Pharmacy: [facility]/pharmacy #[id number], 169, cm, 02/18/24 11:55:00 EST, Height/Length Dosing, 61.8, kg, 02/18/24 11:55:00 EST, Weight Dosing Documented Medications Documented Protonix 40 mg Tab-DR: Oral, 0 Refill(s), Refills(s) 0 Spiriva Respimat 10 ACT 2.5 mcg/inh inhalation aerosol: = 2 puff(s), Inhalation, Daily, Refi (more content not included)... Normal [facility] Comment on above: Result Comment: Elec tronically Signed By: Butch SANDOVAL, Sandoval Frost\.br\Date and Time Signed: 02/25/24 10:51 EST Other Comment: Linda mendosa Attachment - attachment storage system not supported [id number] Can be viewed in source systemMissing Attachment - attachment storage system not supported [id number] Can be viewed in source systemMissing Attachment - attachment storage system not supported [id number] Can be viewed in source systemMissing Attachment - attachment storage system not supported [id number] Can be viewed in [facility] Attachment - attachment storage system not supported [id number] Can be viewed in source systemMissing Attachment - attachment storage system not supported [id number] Can be viewed in source systemMissing Attachment - attachment storage system not supported [id number] Can be viewed in source systemMissing Attachment - attachment storage system not supported [id number] Can be viewed in source systemMissing Attachment - attachment storage system not supported [id number] Can be viewed in source systemMissing Attachment - attachment storage system not supported [id number] Can be viewed in source system Ambulatory [...] (more content not included)... Normal [facility] Gastroenterology Office/Clin ic Noteon 02-21-2024 Gastroenterology [...] to discuss capsule. (Had one completed at [facility] 2021)- results below Last visit w/ Dr Rae History of Present Illness pt with weight loss, throw up, and diarrhea capsule endoscopy done at [facility] and was found to have stomach [...] clips were successfully placed (MR conditional). 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 There was no bleeding at the end of the maneuver. Exam of the jejunum was otherwise normal. Impression: - Atrophic mucosa. - Jejunal polyp(s). Resected a (more content not included)... Normal [facility] Comment on above: Result Comment: Elec tronically [...] Someone Will Contact You Regarding These Appointments [facility] [place], Neurology, [...] NEEDED FOR NAUSEA AND VOMITING Pickup at [facility]/pharmacy #[id number] Unchanged ondansetron (Zofran 4 mg [...] MOUTH THREE TIMES A DAY Pickup at [facility]/pharmacy #6177 [id number] [address] [place], [place] [phone] Allergies No Known Allergies Problems Ongoing - [...] (more content not included)... Normal [facility] Family Medicine Office/Clini c Noteon 02-18-2024 Family Medicine Office/Clinic Note Family Medicine Office/Clinic Note Chief Complaint N&V & Diarrhea HPI Staff Sai is a 53 year old female presenting with diarrhea, vomiting. AMILCAR 11/27/23 pt here for the same reason. Sent home with stool sample supplies. Pt did see [facility] [place] [facility] 01/16/24 for diarrhea & N&V. Tx'd w/[facility] did order CTE, however pt no [...] neuro consult. her mother has dementia. Ordered: [facility] [place] Ambulatory Referral 2. Maternal family history of dementia (Z81.8: Family history of other mental and behavioral disorders) mother has dementia Ordered: [facility] [place] Ambulatory Referral 3. [...] VOMITING, # 24 tab(s), Refills(s) 0, Pharmacy: [facility]/pharmacy #[id number], 169, cm, 02/18/24 11:55:00 EST, Height/Length Dosing, 61.8, kg, 02/18/24 11:55:00 EST, Weight D... promethazine, See Instructions, TAKE 1 TABLET BY MOUTH THREE TIMES A DAY, # 30 tab(s), Refills(s) 1, Pharmacy: [facility]/pharmacy #[id number], 169, cm, 02/18/24 11:55:00 EST, [...] (more content not included)... Normal [facility] Comment on above: Result Comment: Elec tronically [...] start: Years ago. Had capsule done at [facility] and surgery. Dr Tiffani Morales. Constant? [...] up, and diarrhea capsule endoscopy done at [facility] and was found to have stomach [...] (more content not included)... Normal [facility] Comment on above: Result Comment: Elec tronically [...] to get in, will send referral to [facility] [place] 2. Vomiting (R11.10: Vomiting, unspecified) pt is asking for refill on omeprazole 3. Smoker (F17.200: Nicotine dependence, unspecified, uncomplicated) consider not smoking 4. BMI 21.0-21.9, adult (Z68.21: Body mass index [BMI] 21.0-21.9, adult) BMI education given Orders: lamotrigine, See Instructions, TAKE 1 TABLET BY MOUTH EVERY DAY IN THE AFTERNOON, # 30 tab(s), Refills(s) 0, [id number], 169.7, cm, 10/03/23 9:38:00 EDT, Height/Length Dosing, 62.5, kg, 10/03/23 9:38:00 EDT, Weight Dosing lamotrigine, See Instructions, TAKE 1 TABLET EVERY MORNING, # 30 tab(s), Refills(s) 0, [id number], 169.7, cm, 10/03/23 9:38:00 EDT, Height/Length Dosing, 62.5, kg, 10/03/23 9:38:00 EDT, Weight Dosing lamotrigine, See Instructions, TAKE 1 TABLET BY MOUTH EVERY DAY IN THE AFTERNOON, # 30 tab(s), Refills(s) 0, Pharmacy: [facility] STORE [id number], 169.7, cm, 11/26/23 15:32:00 EDT, Height/Length Dosing, 62.1, kg, 11/26/23 15:32:00 EDT, Weight Dosing nitrofurantoin, 100 mg = 1 cap(s), Oral, BID, X 7 day(s), # 14 cap(s), Refills(s) 0, Pharmacy: [facility]/pharmacy #[id number], 169.7, cm, 11/26/23 15:32:00 EDT, Height/Length Dosing, 62.1, kg, 09/10/24 15:32:00 EDT, Weight Dosing omeprazole, 20 mg = 1 cap(s), Oral, Daily, # 30 cap(s), Refills(s) 0, Pharmacy: [facility]/pharmacy #[id number], 169.7, cm, 10/03/23 9:38:00 EDT, Height/Length Dosing, 62.5, kg, 10/03/23 9:38:00 EDT, Weight Dosing omeprazole, See Instructions, TAKE 1 CAPSULE BY MOUTH EVERY DAY, # 30 cap(s), Refills(s) 0, Pharmacy: [facility] STORE [id number], 169.7, cm, 11/26/23 15:32:00 EDT, Height/Length Dosing, 62.1, kg, 11/26/23 15:32:00 EDT, Weight Dosing tiotropium, = 2 inh, Inhalation, Daily, # 4 gm, Refills(s) 11, [id number], 169.7, cm, 11/26/23 15:32:00 EDT, Height/Length [...] (more content not included)... Normal [facility] Comment on above: Result Comment: Elec tronically [...] hours as needed for Nausea/Vomiting Pickup at [facility]/pharmacy #6177 Unchanged ondansetron (Zofran 4 mg [...] 2 Puffs Inhalation Every day Pharmacy Information [facility]/pharmacy #[id number]: [address] [place], [place] [phone] Allergies No Known Allergies Problems Ongoing - [...] us for your care. Normal [facility] ED Note-Physicianon 10-21-19 ED Note-Physician ED Note-Physician [...] NS 1000 ml Bolus, 1000 mL, IV [id number] [F] 25 mg + Sodium Chloride 0.9% [...] CHANCE SERRANO In 3 days 09/27/[address] [place] [id number] [phone] AddShoppers (1) Additional Instructions: Patient Education Urinary Tract [...] made to ensure accuracy, however, inadvertently computerized outside rigger mistakes may be present. Appropriate healthcare PPE [...] (more content not included)... Normal [facility] Comment on above: Result Comment: Elec tronically [...] visit: month or so ago Last provider: [facility] Any recent labs: IN ER [facility] [...] (more content not included)... Normal [facility] Comment on above: Result Comment: Elec tronically [...] Locations R1: This test was performed at: [facility], [address] [place] [address], [id number] , [place], Normal [facility] Comment on above: Performed By: #### 2 [id number] ####[facility] [address] [place] [address] CHEMISTRYOrdered By: SYSTEM SYSTEM on 09-24-2023 Albumin [...] specific criteria set forth by [facility]. Epithelial cells.squamous Auto (Urine sed) [#/Area] [...] Auto SS Work Phone: Zi 05-08-2022 [facility] Telephone (GASTA5) SAI PINEDA ([id number]) 1970 F Date Time Provider Department 05/08/22 TIFFANI MORALES GASTA5 During your visit today, we recorded the following information about you: Eva Chong 05/08/2022 10:45 AM Signed 05/08/22 Patient calling to see if Dr Morales will write her a script for Zofran nausea medication strips. [phone] Eva Covarrubias, RN 05/11/2022 10:05 AM Signed [...] Fully Assessed Reason for Visit: Patient Question [5342] Order(s):ondansetron orally disintegrating (ZOFRAN ODT) 8 mg [...] by TIFFANI MORALES on 05/10/22 Normal [facility] COPPER, SERUM or PLASMAon Copper, Serum 129 ug/dL Normal 80-158 [facility] Comment on above: Result Comment: Dete ction Limit = 5 Performed By: #### C OPPER #### [facility] [address] [place] [address] Dr. Prince Olivas FATTY ACID PROFILEon 023 a-Linolenic Acid C18:3w3 81 nmol/mL Normal 20-200 [facility] Comment on above: Performed By: #### Marine MA2 #### [facility] [address] [place] [address] Dr. Prince Olivas Arachidic Acid C20:0 31 nmol/mL Normal 8-43 [facility] Comment on above: Performed By: #### Marine MA2 #### [facility] [address] [place] [address] Dr. Prince Olivas Arachidonic Acid, C20:4w6 943 nmol/mL Normal 310-1420 [facility] Comment on above: Performed By: #### Marine MA2 #### [facility] [address] [address] [address] Prince Olivas DHA, C22:6w3 85 nmol/mL Normal 45-365 [facility] Comment on above: Performed By: #### Marine MA2 #### [facility] [address] [address] [address] Prince Olivas Docosenoic Acid C22:1 5 nmol/mL Normal 1-10 [facility] Comment on above: Performed By: #### Marine MA2 #### [facility] [address] [address] [address] Prince Olivas DPA, C22:5w3 58 nmol/mL Normal 13-75 [facility] Comment on above: Performed By: #### M MA2 #### [facility] [address] [address] [address] Prince Olivas DPA, C22:5w6 18 nmol/mL Normal 6-55 [facility] Comment on above: Performed By: #### M MA2 #### [facility] [address] [address] [address] Prince Olivas DTA, C22:4w6 28 nmol/mL Normal 10-40 [facility] Comment on above: Performed By: #### M MA2 #### [facility] [address] [address] [address] Prince Olivas EER Fatty Acid Profile, [facility] See Note Normal [facility] Comment on above: Result Comment: Auth orized individuals can access the [facility] Enhanced Report using the following link: [email or web address] Performed By: #### M MA2 #### [facility] [address] [address] [address] Prince Olivas EPA, C20:5w3 90 nmol/mL Normal 8-130 [facility] Comment on above: Performed By: #### Marine MA2 #### [facility] [address] [address] [address] Prince Olivas g-Linolenic Acid C18:3w6 139 nmol/mL Critically high 10-120 [facility] Comment on above: Performed By: #### Marine MA2 #### [facility] [address] [address] [address] Prince Olivas v-a-Bwopiypvt Acid C20:3w6 211 nmol/mL Normal 45-340 [facility] Comment on above: Performed By: #### Marine MA2 #### [facility] [address] [address] [address] Prince Olivas Hexadecenoic Acid C16:1w9 56 nmol/mL Normal 14-95 [facility] Comment on above: Performed By: #### Marine MA2 #### [facility] [address] [place] [address] Dr. Prince Olivas Image . Normal [facility] Comment on above: Performed By: #### M MA2 #### [facility] [address] [place] [address] Dr. Prince Onealp, Fatty Acids Profile SP See Note Normal [facility] Comment on above: Result Comment: Incr eased concentration of omega-6 gamma- linolenic acid, possibly reflecting dietary artifacts. INTERPRETIVE INFORMATION: Fatty Acids Profile, Essential Ser/Plas This test does not screen for disorders of peroxisomal biogenesis/function. This test was developed and its performance characteristics determined by [employer]. It has not been cleared or approved by the [place] Food and Drug Administration. This test was performed in a CLIA certified laboratory and is intended for clinical purposes. Performed By: #### M MA2 #### [facility] [address] [place] [address] Dr. Prince Olivas Lauric Acid C12:0 12 nmol/mL Normal 1-200 [facility] Comment on above: Performed By: #### M MA2 #### [facility] [address] [place] [address] Dr. Prince Olivas Linoleic Acid C18:2w6 3844 nmol/mL Normal 5162-0800 [facility] Comment on above: Performed By: #### Marine MA2 #### [facility] [address] [place] [address] Dr. Prince Olivas Paterson Acid C20:3w9 29 nmol/mL Normal 1-35 [facility] Comment on above: Performed By: #### Marine MA2 #### [facility] [address] [place] [address] [address] [address] Prince Olivas Myristic Acid C14:0 178 nmol/mL Normal 20-520 [facility] Comment on above: Performed By: #### M MA2 #### [facility] [address] [place] [address] Dr. Prince Olivas Nervonic Acid C24:1w9 138 nmol/mL Normal 35-145 [facility] Comment on above: Performed By: #### M MA2 #### [facility] [address] [address] [address] Prince Olivas Oleic Acid C18:1w9 2898 nmol/mL Normal 740-3900 [facility] Comment on above: Performed By: #### M MA2 #### [facility] [address] [address] [address] Prince Olivas Palmitic Acid C16:0 3316 nmol/mL Normal 9323-4555 [facility] Comment on above: Performed By: #### M MA2 #### [facility] [address] [address] [address] Prince Olivas Palmitoleic Acid C16:1w7 355 nmol/mL Normal 35-580 [facility] Comment on above: Performed By: #### M MA2 #### [facility] [address] [address] [address] Prince Olivas Stearic Acid C18:0 1072 nmol/mL Normal 280-1250 [facility] Comment on above: Performed By: #### M MA2 #### [facility] [address] [address] [address] Prince Olivas Total Fatty Acids 13.7 mmol/L Normal 4.5-15.0 [facility] Comment on above: Performed By: #### M MA2 #### [facility] [address] [address] [address] Prince Olivas Total Monounsaturated Acid 3.6 mmol/L Normal 0.9-4.7 [facility] Comment on above: Performed By: #### M MA2 #### [facility] [address] [address] [address] Prince Olivas Total Polyunsaturated Acid 5.5 mmol/L Normal 2.1-6.2 [facility] Comment on above: Performed By: #### M MA2 #### [facility] [address] [address] [address] Prince Olivas Total Saturated Acid 4.6 mmol/L Normal 1.5-5.3 [facility] Comment on above: Performed By: #### M MA2 #### [facility] [address] [address] [address] Prince Olivas Total w3 0.31 mmol/L Normal 0.12-0.55 [facility] Comment on above: Performed By: #### M MA2 #### [facility] [address] [address] [address] Prince Olivas Total w6 5.2 mmol/L Normal 1.8-5.7 [facility] Comment on above: Performed By: #### M MA2 #### [facility] [address] [address] [address] Prince Olivas Triene Tetraene Ratio 0.031 Normal 0.004-0.051 [facility] Comment on above: Performed By: #### M ADRIAN2 #### [facility] [address] [address] [address] Prince Olivas Vaccenic Acid C18:1w7 149 nmol/mL Normal 50-250 [facility] Comment on above: Performed By: #### M ADRIAN2 #### [facility] [address] [address] [address] Prince Olivas VITAMIN Aon 04-06-2022 Vitamin A 54.9 ug/dL Normal 20.1-62.0 [facility] Comment on above: Result Comment: Refe rence intervals for vitamin A determined from [facility] internal studies. Individuals with vitamin A less than 20 ug/dL are considered vitamin A deficient and those with serum concentrations less than 10 ug/dL are considered severely deficient. . This test was developed and its performance characteristics determined by [employer]. It has not been cleared or approved by the Food and Drug Administration. Performed By: #### M ADRIAN2 #### [facility] [address] [address] [address] Prince Olivas VITAMIN Luciano 04-06-2022 Vitamin E (Alpha T) 9.9 mg/L Normal 7.0-25.1 [facility] Comment on above: Performed By: #### S ELNIUM #### [facility] [address] [address] [address] Prince Olivas Vitamin E (Gamma T) 2.1 mg/L Normal 0.5-5.5 [facility] Comment on above: Result Comment: Refe rence intervals for alpha and gamma- tocopherol determined from National Health and Nutrition Examination Survey, 1540-2951. Individuals with alpha-tocopherol levels less than 5.0 mg/L are considered vitamin E deficient. Performed By: #### S ELNIUM #### [facility] [address] [address] [address] Prince Olivas ZINC SERUM OR PLASMAon 04-06 Zinc, Plasma or Serum 75 ug/dL Normal 44-115 [facility] Comment on above: Result Comment: Dete ction Limit = 5 Performed By: #### L IPID, CMP #### [facility] [address] [address] [address] Prince Pinon 04-05-2022 CNPN Telephone (GASTA5) SAI PINEDA ([id number]) 1970 F Date Time Provider Department 04/05/22 [...] Status:Closed by TIFFANI MORALES on 04/05/22 [facility] METHYLMALONIC ACID (MMA)on 0 04-05-2022 Methylmalonic Acid, Serum 498 nmol/L Critically high 0-378 [facility] Comment on above: Performed By: #### M MA2 #### [facility] [address] [place] [address] Dr. Prince Olivas ANES POSTPROC EVALon 023 ANES POSTPROC EVAL HNO ID: [id number] Author: Atlagracia Salvador MD Service: ? 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 Documented by Frederick Chaves APRN.AQUACULTURAL WORKER SUPERVISOR 04/04/2022 3:31 PM EST SIGNATURE: Altagracia Salvador MD PATIENT NAME: Sai Pineda DATE: April 04, 2022 TIME: 3:51 PM CSN: [id number] Normal [facility] ANES PRE-OPon 04-04-2022 ANES PRE-OP HNO ID: [id number] Author: Altagracia Salvador MD Service: ? Author Type: Anesthesiologist Type: Anesthesia Preprocedure Evaluation Filed: 04/04/2022 12:56 PM Note Text: ANESTHESIOLOGY DAY OF SURGERY NOTE : 1970 Procedure Information Date/Time: 04/04/22 1300 Scheduled providers: Tiffani Morales MD; Altagracia Salvador MD; Frederick Chaves APRN.AQUACULTURAL WORKER SUPERVISOR Procedure: ENTEROSCOPY Location: Gastroenterology Estimated body mass [...] and consent discussed: yes. Patient / Responsible [employer] agrees to proceed: yes Patient / [...] April 04, 2022 TIME: 12:55 PM CSN: [id number] Normal [facility] ENTEROSCOPYon 04-04-2022 [facility] HISTORY PHYSICALon HISTORY PHYSICAL HNO ID: [id number] Author: Tiffani Morales MD Service: Gastroenterology Author [...] Pineda DATE: 04/04/2022 TIME: 1302 Normal [facility] METHYLMALONIC ACID (MMA)on 0 04-04-2022 Methylmalonic Acid, Serum 397 nmol/L Critically high 0-378 [facility] Comment on above: Performed By: #### M CO2 #### [facility] [address] [place] [address] Dr. Prince Olivas NURSING PROGon 04-04-2022 NURSING PROG HNO ID: [id number] Author: Eduardo Harrington RN Service: Nursing Author [...] Signed By: Eduardo Harrington RN Normal [facility] NURSING PROG HNO ID: [id number] Author: Rima Kirk RN Service: Nursing Author [...] Kirk RN In Department: GASTROENTEROLOGY Normal [facility] SELENIUM, PLASMAon 3 Selenium, Serum/Plasma 124 ug/L Normal 93-198 [facility] Comment on above: Performed By: #### S ELNIUM #### [facility] [address] [place] [address] Dr. Prince Olivas SURGICAL PATHOLOGYon 023 CASE REPORT Normal [facility] Comment on above: Order Comment: Speci men Type: TISSUE SPECIMENOrdering Facility: [facility] Address: [address] [place] [address] Result Comment: Surg ical Pathology Report Case: [id number] Authorizing Provider: Tiffani Morales MD Collected: 04/04/2022 02:57 PM Ordering Location: Gastroenterology Received: 04/04/2022 05:34 PM Pathologist: Gonzalo Lemons MD Specimen: JEJUNUM BIOPSY, polyp: r/o adenoma Performed By: #### S ####[facility] [id number] [address] [facility] FINAL DIAGNOSIS Normal [facility] Comment on above: Order Comment: Speci men Type: TISSUE SPECIMENOrdering Facility: [facility] Address: [address] [place] [address] Result Comment: Santosh leeunum, polyp, biopsy: - Small intestine with gastric heterotopia. - Negative for dysplasia and malignancy. Performed By: #### S ####[facility] [id number] [place] [address] [place] FINAL PERFORMING LAB Normal [facility] Comment on above: Order Comment: Speci men Type: TISSUE SPECIMENOrdering Facility: [facility] Address: [address] [place] [address] Result Comment: Diag nostic interpretation performed at [facility], [address] [place] [address] CLIA# [id number] Tying Machine Operator: Constantin Quevedo M.D. Performed By: #### S ####[facility]IA [id number] [address] OF [facility] GROSS DESCRIPTION Normal [facility] Comment on above: Order Comment: Speci men Type: TISSUE SPECIMENOrdering Facility: [facility] Address: [address] [place] [address] Result Comment: A. J EJUNUM BIOPSY Received in formalin is a segment of proctor polypoid tissue measuring 1.2 x 1.0 x 0.4 cm. No stalk is noted. The line of resection is noted. The specimen is bisected and totally submitted in formalin in one cassette. Gross examination performed at [facility], [address] [place] [address] MDM 04/04/2022 10:13 PM Performed By: #### S ####[facility] [id number] [address] [place] FOLATE, RBC AND SERUMon 03-18 Folate 7.5 ng/mL Normal >3.0 [facility] Comment on above: Result Comment: A se rum folate concentration of less than 3.1 ng/mL is considered to represent clinical deficiency. Performed By: #### L IPID, CMP #### [facility] [address] [address] [address] Prince Olivas Folate, Hemolysate 297.0 ng/mL Normal Not Estab. [facility] Comment on above: Performed By: #### L IPID, CMP #### [facility] [address] [place] [address] Dr. Prince Olivas Folate, RBC 721 ng/mL Normal >498 [facility] Comment on above: Performed By: #### L IPID, CMP #### [facility] [address] [place] [address] Dr. Prince Olivas Hematocrit (Bld) [Volume fraction] 41.2 % Normal 34.0-46.6 [facility] Comment on above: Performed By: #### L IPID, CMP #### [facility] [address] [place] [address] Dr. Prince Olivas CBC AUTO DIFFon 03-31-2022 BASO # 0.1 103/ul Normal 0.0-0.1 [facility] Comment on above: Performed By: #### L IPID, CMP #### [facility] [address] [place] [address] Dr. Prince Olivas Basophils/100 WBC (Bld) 0.6 % Normal 0.2-2.0 [facility] Comment on above: Performed By: #### L IPID, CMP #### [facility] [address] [place] [address] Dr. Prince Olivas EO # 0.2 103/ul Normal 0.0-0.7 [facility] Comment on above: Performed By: #### L IPID, CMP #### [facility] [address] [place] [address] Dr. Prince Olivas Eosinophils/100 WBC (Bld) 2.9 % Normal 0.9-7.0 [facility] Comment on above: Performed By: #### L IPID, CMP #### [facility] [address] [place] [address] Dr. Prince Olivas Erythrocyte distribution width (RBC) [Ratio] 13.2 % Normal 11.0-15.0 [facility] Comment on above: Performed By: #### L IPID, CMP #### [facility] [address] [place] [address] Dr. Prince Olivas Hematocrit (Bld) [Volume fraction] 41.1 % Normal 36.0-48.0 [facility] Comment on above: Performed By: #### L IPID, CMP #### [facility] [address] [place] [address] Dr. Prince Olivas Hemoglobin (Bld) [Mass/Vol] 13.6 g/dL Normal 12.0-16.0 [facility] Comment on above: Performed By: #### L IPID, CMP #### [facility] [address] [place] [address] Dr. Prince Olivas IG # 0.04 10e3/ul Critically high 0.00-0.03 [facility] Comment on above: Performed By: #### L IPID, CMP #### [facility] [address] [place] [address] Dr. Prince Olivas IG % 0.5 % Normal 0.0-0.5 [facility] Comment on above: Performed By: #### L IPID, CMP #### [facility] [address] [place] [address] Dr. Prince Olivas LYMPH # 2.5 103/ul Normal 1.2-3.8 [facility] Comment on above: Performed By: #### L IPID, CMP #### [facility] [address] [place] [address] Dr. Prince Olivas Lymphocytes/100 WBC (Bld) 31.5 % Normal 20.5-60.0 [facility] Comment on above: Performed By: #### L IPID, CMP #### [facility] [address] [place] [address] Dr. Prince Olivas MANUAL DIFF REQ NO Normal [facility] Comment on above: Performed By: #### L IPID, CMP #### [facility] [address] [place] [address] Dr. Prince Olivas MCH (RBC) [Entitic mass] 30.5 pg Normal 26.7-34.0 [facility] Comment on above: Performed By: #### L IPID, CMP #### [facility] [address] [address] [address] Prince Olivas MCHC (RBC) [Mass/Vol] 33.1 g/dL Normal 29.9-35.2 [facility] Comment on above: Performed By: #### L IPID, CMP #### [facility] [address] [place] [address] Dr. Prince Olivas MCV (RBC) [Entitic vol] 92.2 fL Normal 81.0-99.0 [facility] Comment on above: Performed By: #### L IPID, CMP #### [facility] [address] [place] [address] Dr. Prince Olivas MONO # 0.6 103/ul Normal 0.3-0.8 [facility] Comment on above: Performed By: #### L IPID, CMP #### [facility] [address] [place] [address] Dr. Prince Olivas Monocytes/100 WBC (Bld) 7.0 % Normal 1.7-12.0 [facility] Comment on above: Performed By: #### L IPID, CMP #### [facility] [address] [place] [address] Dr. Prince Olivas NEUT # 4.5 103/ul Normal 1.4-6.5 [facility] Comment on above: Performed By: #### L IPID, CMP #### [facility] [address] [place] [address] Dr. Prince Olivas Neutrophils/100 WBC (Bld) 57.5 % Normal 43.0-75.0 [facility] Comment on above: Performed By: #### L IPID, CMP #### [facility] [address] [place] [address] Dr. Prince Olivas Platelet mean volume (Bld) [Entitic vol] 11.5 fL Normal 9.5-13.5 [facility] Comment on above: Performed By: #### L IPID, CMP #### [facility] [address] [place] [address] Dr. Prince Olivas PLT 224 103/ul Normal 150-450 [facility] Comment on above: Performed By: #### L IPID, CMP #### [facility] [address] [place] [address] Dr. Prince Olivas RBC 4.46 106/ul Normal 4.20-5.40 [facility] Comment on above: Performed By: #### L IPID, CMP #### [facility] [address] [place] [address] Dr. Prince Olivas WBC 7.9 103/ul Normal 4.0-11.0 [facility] Comment on above: Performed By: #### L IPID, CMP #### [facility] [address] [place] [address] Dr. Prince Olivas CRPon 03-31-2022 CRP [Mass/Vol] mg/L Normal <=1.0 [facility] Comment on above: Performed By: #### C OPPER #### [facility] [address] [place] [address] Dr. Prince Olivas FERRITINon 03-31-2022 Ferritin [Mass/Vol] 99.0 ng/mL Normal 8.0-252.0 [facility] Comment on above: Performed By: #### F ERR, VITB12, VITAD, FETIBC #### [facility] [address] [place] [address] Dr. Prince Olivas IRON AND TIBCon 03-31-2022 % SATURATION 29.3 % Normal [facility] Comment on above: Performed By: #### F ERR, VITB12, VITAD, FETIBC #### [facility] [address] [place] [address] Dr. Prince Olivas Iron [Mass/Vol] 90.0 ug/dL Normal 50.0-170.0 [facility] Comment on above: Performed By: #### F ERR, VITB12, VITAD, FETIBC #### [facility] [address] [place] [address] Dr. Prince Olivas TIBC DIRECT 307.0 ug/dL Normal 250.0-450.0 [facility] Comment on above: Performed By: #### F ERR, VITB12, VITAD, FETIBC #### [facility] [address] [place] [address] Dr. Prince Olivas MAGNESIUMon 03-31-2022 Magnesium [Mass/Vol] 2.0 mg/dL Normal 1.8-2.4 [facility] Comment on above: Performed By: #### C OPPER #### [facility] [address] [place] [address] Dr. Prince Olivas PHOSPHORUSon 03-31-2022 Phosphate [Mass/Vol] 3.6 mg/dL Normal 2.6-4.7 [facility] Comment on above: Performed By: #### C OPPER #### [facility] [address] [place] [address] Dr. Prince Olivas PROF 14(COMP METB)on 023 Albumin [Mass/Vol] 3.9 g/dL Normal 3.4-5.0 [facility] Comment on above: Performed By: #### C OPPER #### [facility] [address] [place] [address] Dr. Prince Olivas Albumin/Globulin [Mass ratio] 1.3 {ratio} Normal [facility] Comment on above: Performed By: #### C OPPER #### [facility] [address] [place] [address] Dr. Prince Olivas ALP [Catalytic activity/Vol] 75 U/L Normal 46-116 [facility] Comment on above: Performed By: #### C OPPER #### [facility] [address] [place] [address] Dr. Prince Olivas ALT [Catalytic activity/Vol] 19 U/L Normal 14-59 [facility] Comment on above: Performed By: #### C OPPER #### [facility] [address] [place] [address] Dr. Prince Olivas Anion gap [Moles/Vol] 11.3 mmol/L Normal [facility] Comment on above: Performed By: #### C OPPER #### [facility] [address] [place] [address] Dr. Prince Olivas AST [Catalytic activity/Vol] 19 U/L Normal 15-37 [facility] Comment on above: Performed By: #### C OPPER #### [facility] [address] [address] [address] Prince Olivas Bilirubin [Mass/Vol] 0.3 mg/dL Normal 0.2-1.0 [facility] Comment on above: Performed By: #### C OPPER #### [facility] [address] [address] [address] Prince Olivas Calcium [Mass/Vol] 9.0 mg/dL Normal 8.5-10.1 [facility] Comment on above: Performed By: #### C OPPER #### [facility] [address] [address] [address] Prince Olivas Chloride [Moles/Vol] 105 mmol/L Normal 98-107 [facility] Comment on above: Performed By: #### C OPPER #### [facility] [address] [place] [address] Dr. Prince Olivas CO2 [Moles/Vol] 28.9 mmol/L Normal 21.0-32.0 [facility] Comment on above: Performed By: #### C OPPER #### [facility] [address] [place] [address] Dr. Prince Olivas Creatinine [Mass/Vol] 0.79 mg/dL Normal 0.55-1.02 [facility] Comment on above: Performed By: #### C OPPER #### [facility] [address] [place] [address] Dr. Prince Olivas EGFR-AF NORWEGIAN >60 Normal >=60 [facility] Comment on above: Performed By: #### C OPPER #### [facility] [address] [place] [address] Dr. Prince Olivas EGFR-NON AF NORWEGIAN >60 Normal >=60 [facility] Comment on above: Performed By: #### C OPPER #### [facility] [address] [place] [address] Dr. Prince Olivas Globulin (S) [Mass/Vol] 3.0 g/dL Normal [facility] Comment on above: Performed By: #### C OPPER #### [facility] [address] [address] [address] Prince Olivas Glucose [Mass/Vol] 91 mg/dL Normal 74-106 [facility] Comment on above: Performed By: #### C OPPER #### [facility] [address] [address] [address] Prince Olivas Potassium [Moles/Vol] 4.2 mmol/L Normal 3.5-5.1 [facility] Comment on above: Performed By: #### C OPPER #### [facility] [address] [address] [address] Prince Olivas Protein [Mass/Vol] 6.9 g/dL Normal 6.4-8.2 [facility] Comment on above: Performed By: #### C OPPER #### [facility] [address] [address] [address] Prince Olivas Sodium [Moles/Vol] 141 mmol/L Normal 136-145 [facility] Comment on above: Performed By: #### C OPPER #### [facility] [address] [address] [address] Prince Olivas Urea nitrogen [Mass/Vol] 10.0 mg/dL Normal 7.0-18.0 [facility] Comment on above: Performed By: #### C OPPER #### [facility] [address] [address] [address] Prince Olivas Urea nitrogen/Creatinine [Mass ratio] 12.7 mg/mg Normal [facility] Comment on above: Performed By: #### C OPPER #### [facility] [address] [address] [address] Prince Olivas PROTIMEon 03-31-2022 INR Coag (PPP) [Relative time] 0.94 {INR} Normal [facility] Comment on above: Performed By: #### M MA2 #### [facility] [address] [address] [address] Prince Olivas INR GUIDELINES SEE BELOW Normal [facility] Comment on above: Result Comment: BRIANNA RED INR: 2.0 - 3.0 CONDITIONS NOT LISTED BELOW 2.5 - 3.5 FOR PROSTHETIC HEART VALVE REPLACEMENT 2.5 - 3.5 RECURRENT THROMBOSIS Performed By: #### M MA2 #### [facility] [address] [place] [address] Dr. Prince Olivas PT Coag (PPP) [Time] 10.0 s Normal 9.0-11.6 [facility] Comment on above: Performed By: #### M MA2 #### [facility] [address] [place] [address] Dr. Prince Olivas TRIGLYCERIDEon 03-31-2022 Triglyceride [Mass/Vol] 103 mg/dL Normal <=150 [facility] Comment on above: Performed By: #### C OPPER #### [facility] [address] [place] [address] Dr. Prince Olivas VITAMIN B12on 03-31-2022 Cobalamin (Vitamin B12) [Mass/Vol] 259.0 pg/mL Normal 193.0-986.0 [facility] Comment on above: Performed By: #### F ERR, VITB12, VITAD, FETIBC #### [facility] [address] [place] [address] Dr. Prince Olivas VITAMIN D 25 OHon 03-31-2022 VIT D 25-OH 49.0 ng/mL Normal [facility] Comment on above: Performed By: #### F ERR, VITB12, VITAD, FETIBC #### [facility] [address] [place] [address] Dr. Prince Olivas VIT D RANGES SEE BELOW Normal [facility] Comment on above: Result Comment: <20 ng/mL Vit D deficient 20 - <30 ng/mL Vit D insufficient 30 - 100 ng/mL Vit D sufficient >100 ng/mL Potential Toxicity Performed By: #### F ERR, VITB12, VITAD, FETIBC #### [facility] [address] [place] [address] Dr. Prince Olivas CBC AUTO DIFFon 03-28-2022 BASO # 0.1 103/ul Normal 0.0-0.1 [facility] Comment on above: Performed By: #### S ELNIUM #### [facility] [address] [place] [address] Dr. Prince Olivas Basophils/100 WBC (Bld) 0.6 % Normal 0.2-2.0 [facility] Comment on above: Performed By: #### S ELNIUM #### [facility] [address] [place] [address] Dr. Prince Olivas EO # 0.2 103/ul Normal 0.0-0.7 [facility] Comment on above: Performed By: #### S ELNIUM #### [facility] [address] [place] [address] Dr. Prince Olivas Eosinophils/100 WBC (Bld) 2.4 % Normal 0.9-7.0 [facility] Comment on above: Performed By: #### S ELNIUM #### [facility] [address] [place] [address] Dr. Prince Olivas Erythrocyte distribution width (RBC) [Ratio] 13.2 % Normal 11.0-15.0 [facility] Comment on above: Performed By: #### S ELNIUM #### [facility] [address] [place] [address] Dr. Prince Olivas Hematocrit (Bld) [Volume fraction] 44.3 % Normal 36.0-48.0 [facility] Comment on above: Performed By: #### S ELNIUM #### [facility] [address] [place] [address] Dr. Prince Olivas Hemoglobin (Bld) [Mass/Vol] 13.8 g/dL Normal 12.0-16.0 [facility] Comment on above: Performed By: #### S ELNIUM #### [facility] [address] [place] [address] Dr. Prince Olivas IG # 0.02 10e3/ul Normal 0.00-0.03 [facility] Comment on above: Performed By: #### S ELNIUM #### [facility] [address] [place] [address] Dr. Prince Olivas IG % 0.2 % Normal 0.0-0.5 [facility] Comment on above: Performed By: #### S ELNIUM #### [facility] [address] [address] [address] Prince Olivas LYMPH # 3.1 103/ul Normal 1.2-3.8 [facility] Comment on above: Performed By: #### S ELNIUM #### [facility] [address] [address] [address] Prince Olivas Lymphocytes/100 WBC (Bld) 34.8 % Normal 20.5-60.0 [facility] Comment on above: Performed By: #### S ELNIUM #### [facility] [address] [place] [address] Dr. Prince Olivas MANUAL DIFF REQ NO Normal [facility] Comment on above: Performed By: #### S ELNIUM #### [facility] [address] [place] [address] Dr. Prince Olivas MCH (RBC) [Entitic mass] 30.5 pg Normal 26.7-34.0 [facility] Comment on above: Performed By: #### S ELNIUM #### [facility] [address] [place] [address] Dr. Prince Olivas MCHC (RBC) [Mass/Vol] 31.2 g/dL Normal 29.9-35.2 [facility] Comment on above: Performed By: #### S ELNIUM #### [facility] [address] [place] [address] Dr. Prince Olivas MCV (RBC) [Entitic vol] 98.0 fL Normal 81.0-99.0 [facility] Comment on above: Performed By: #### S ELNIUM #### [facility] [address] [address] [address] Prince Olivas MONO # 0.5 103/ul Normal 0.3-0.8 [facility] Comment on above: Performed By: #### S ELNIUM #### [facility] [address] [place] [address] Dr. Prince Olivas Monocytes/100 WBC (Bld) 6.0 % Normal 1.7-12.0 [facility] Comment on above: Performed By: #### S ELNIUM #### [facility] [address] [address] [address] Prince Olivas NEUT # 5.0 103/ul Normal 1.4-6.5 [facility] Comment on above: Performed By: #### S ELNIUM #### [facility] [address] [address] [address] Prince Olivas Neutrophils/100 WBC (Bld) 56.0 % Normal 43.0-75.0 [facility] Comment on above: Performed By: #### S ELNIUM #### [facility] [address] [address] [address] Prince Olivas Platelet mean volume (Bld) [Entitic vol] 11.5 fL Normal 9.5-13.5 [facility] Comment on above: Performed By: #### S ELNIUM #### [facility] [address] [place] [address] Dr. Prince Olivas PLT 221 103/ul Normal 150-450 [facility] Comment on above: Performed By: #### S ELNIUM #### [facility] [address] [address] [address] Prince Olivas RBC 4.52 106/ul Normal 4.20-5.40 [facility] Comment on above: Performed By: #### S ELNIUM #### [facility] [address] [address] [address] Prince Olivas WBC 8.9 103/ul Normal 4.0-11.0 [facility] Comment on above: Performed By: #### S ELNIUM #### [facility] [address] [place] [address] Dr. Prince Pinon 03-28-2022 YAMILETH Telephone (JAMIE) SAI PINEDA ([id number]) 1970 F Date Time Provider Department 03/28/22 EDUARDO HARRINGTON During your visit today, we recorded the following information about you: Eduardo Harrington RN 03/28/2022 3:52 PM Signed Attempted to reach the patient at the contact number that they provided [phone] (home) . 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 they must have a responsible adult [...] Number to call with questions or concerns [phone] Number to call to cancel their procedure [phone] Eduardo Harrington RN Allergies As of Date: 03/28/2022 (No Known Allergies) Date Reviewed: 01/01/2022 Reviewed by: Juan Carlos Saucedo LPN - Fully Assessed Reason for Visit: Appointment Confirmation [1500] Prescriptions as of 03/28/2022 - prochlorperazine (COMPAZINE) [...] by EDUARDO HARRINGTON on 03/28/22 Normal [facility] PROF 14(COMP METB)on 023 Albumin [Mass/Vol] 4.2 g/dL Normal 3.4-5.0 [facility] Comment on above: Performed By: #### L IPID, CMP #### [facility] [address] [place] [address] Dr. Prince Olivas Albumin/Globulin [Mass ratio] 1.4 {ratio} Normal [facility] Comment on above: Performed By: #### L IPID, CMP #### [facility] [address] [place] [address] Dr. Prince Olivas ALP [Catalytic activity/Vol] 86 U/L Normal 46-116 [facility] Comment on above: Performed By: #### L IPID, CMP #### [facility] [address] [address] [address] Prince Olivas ALT [Catalytic activity/Vol] 13 U/L Critically low 14-59 [facility] Comment on above: Performed By: #### L IPID, CMP #### [facility] [address] [address] [address] Prince Olivas Anion gap [Moles/Vol] 9.7 mmol/L Normal [facility] Comment on above: Performed By: #### L IPID, CMP #### [facility] [address] [address] [address] Prince Olivas AST [Catalytic activity/Vol] 15 U/L Normal 15-37 [facility] Comment on above: Performed By: #### L IPID, CMP #### [facility] [address] [place] [address] Dr. Prince Olivas Bilirubin [Mass/Vol] 0.2 mg/dL Normal 0.2-1.0 [facility] Comment on above: Performed By: #### L IPID, CMP #### [facility] [address] [place] [address] Dr. Prince Olivas Calcium [Mass/Vol] 9.2 mg/dL Normal 8.5-10.1 [facility] Comment on above: Performed By: #### L IPID, CMP #### [facility] [address] [place] [address] Dr. Prince Olivas Chloride [Moles/Vol] 102 mmol/L Normal 98-107 [facility] Comment on above: Performed By: #### L IPID, CMP #### [facility] [address] [place] [address] Dr. Prince Olivas CO2 [Moles/Vol] 28.9 mmol/L Normal 21.0-32.0 [facility] Comment on above: Performed By: #### L IPID, CMP #### [facility] [address] [place] [address] Dr. Prince Olivas Creatinine [Mass/Vol] 0.81 mg/dL Normal 0.55-1.02 [facility] Comment on above: Performed By: #### L IPID, CMP #### [facility] [address] [place] [address] Dr. Prince Olivas EGFR-AF NORWEGIAN >60 Normal >=60 [facility] Comment on above: Performed By: #### L IPID, CMP #### [facility] [address] [place] [address] Dr. Prince Olivas EGFR-NON AF NORWEGIAN >60 Normal >=60 [facility] Comment on above: Performed By: #### L IPID, CMP #### [facility] [address] [address] [address] Prince Olivas Globulin (S) [Mass/Vol] 3.1 g/dL Normal [facility] Comment on above: Performed By: #### L IPID, CMP #### [facility] [address] [place] [address] Dr. Prince Olivas Glucose [Mass/Vol] 74 mg/dL Normal 74-106 [facility] Comment on above: Performed By: #### L IPID, CMP #### [facility] [address] [place] [address] Dr. Prince Olivas Potassium [Moles/Vol] 4.1 mmol/L Normal 3.5-5.1 [facility] Comment on above: Performed By: #### L IPID, CMP #### [facility] [address] [place] [address] Dr. Prince Olivas Protein [Mass/Vol] 7.3 g/dL Normal 6.4-8.2 [facility] Comment on above: Performed By: #### L IPID, CMP #### [facility] [address] [place] [address] Dr. Prince Olivas Sodium [Moles/Vol] 138 mmol/L Normal 136-145 [facility] Comment on above: Performed By: #### L IPID, CMP #### [facility] [address] [place] [address] Dr. Prince Olivas Urea nitrogen [Mass/Vol] 11.0 mg/dL Normal 7.0-18.0 [facility] Comment on above: Performed By: #### L IPID, CMP #### [facility] [address] [place] [address] Dr. Prince Olivas Urea nitrogen/Creatinine [Mass ratio] 13.6 mg/mg Normal [facility] Comment on above: Performed By: #### L IPID, CMP #### [facility] Laboratory [address] [place] [address] Dr. Prince Olivas TSHon 03-28-2022 TSH 0.948 uIU/mL Normal 0.358-3.740 [facility] Comment on above: Performed By: #### L IPID, CMP #### [facility] [address] [address] [address] Prince Olivas VIT B12 AND FOLATEon 023 Cobalamin (Vitamin B12) [Mass/Vol] 260.0 pg/mL Normal 193.0-986.0 [facility] Comment on above: Performed By: #### C OPPER #### [facility] [address] [address] [address] Prince Olivas FOLATE 7.90 ng/mL Critically low 8.60-58.90 [facility] Comment on above: Performed By: #### C OPPER #### [facility] [address] [address] [address] Prince Olivas NM GASTRIC EMPTYING SOLIDon 02-05-2022 NM GASTRIC EMPTYING SOLID * * *Final Report* * * DATE OF EXAM: Feb 05 2022 12:26PM [facility] 0017 - [place] GASTRIC EMPTYING SOLID / PROCEDURE REASON: Nausea [...] rate of gastric emptying of solid meal. Battery Charger Tester: FAN Transcribe Date/Time: Feb 05 2022 1:36P Dictated by : SHER RODRIGUEZ MD This examination was interpreted and the report reviewed and electronically signed by: RENATO PATEL MD on Feb 05 2022 2:03PM EST [id number] [facility] (GAPRA3) SAI PINEDA ([id number]) 1970 F Date Time Provider Department 01/05/22 [...] Encounter Status:Closed by TIFFANI MORALES on 01/05/22 [facility] 01-03-2022 [facility] Tele[facility] (GASTMN) SAI PINEDA ([id number]) 1970 F Date Time Provider Department 01/03/22 ANASTASIYA MOSQUEDA GASTWA During your visit today, we recorded the following information about you: Anastasiya Mosqueda PA-C 01/03/2022 10:19 AM Signed EGD results discussed with patient as requested, pathology still pending. Will reach out to patient once resulted. Red flags for in person care discussed. GRECIA Castorena [facility] 01/05/2022 10:02 AM Signed Patient requests return call [phone] Elizabeth Jimenez [facility] Allergies As of Date: 01/03/2022 (No Known [...] Encounter Status:Closed by ANASTASIYA [facility]EDA [facility] Telephone (DDQ) SAI PINEDA ([id number]) 1970 F Date Time Provider Department 01/02/22 [...] by LEYDI HUIZAR on 01/02/22 Normal [facility] ANES POSTPROC EVALon 022 ANES POSTPROC EVAL HNO ID: [id number] Author: Sher Hudson MD Service: ? Author [...] January 01, 2022 TIME: 5:13 PM CSN: [id number] Normal [facility] ANES PRE-OPon 01-01-2022 ANES PRE-OP HNO ID: [id number] Author: Sher Hudson MD Service: ? 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 Patient / Responsible Green Party agrees to proceed: yes Patient / [...] January 01, 2022 TIME: 3:42 PM CSN: [id number] Normal [facility] EGD DIAGNOSTICon 01-01-2022 [facility] HISTORY PHYSICALon HISTORY PHYSICAL HNO ID: [id number] Author: Tiffani Morales MD Service: Gastroenterology Author [...] Guerrero DATE: 01/01/2022 TIME: 1600 Normal [facility] NURSING PROGon 01-01-2022 NURSING PROG HNO ID: [id number] Author: Juan Carlos Saucedo LPN Service: ? [...] Electronically Signed By: Juan Carlos Saucedo LPN [facility] NURSING PROG HNO ID: [id number] Author: Rima Coleman RN Service: ? Author [...] Coleman RN In Department: GASTROENTEROLOGY Normal [facility] SURGICAL PATHOLOGYon 01-01-2 022 CASE REPORT Normal [facility] Comment on above: Order Comment: Speci urbano Type: TISSUE SPECIMENOrdering Facility: [facility] Address: [address] [place], [place] [id number] Result Comment: Surg ica Pathology Report Case: [id number] Authorizing Provider: Tiffani Morales MD Collected: 01/01/2022 04:13 PM Ordering Location: Gastroenterology Received: 01/01/2022 08:38 PM Pathologist: Jyotsna Cartwright MD Specimens: A) - DUODENUM BIOPSY, r/o celiac B) - STOMACH BIOPSY, r/o h. pylori C) - STOMACH (GASTRIC) POLYP BIOPSY, r/o adenoma Performed By: #### S ####[facility] LABIA [id number] [address] [place] DIAGNOSIS COMMENT Normal [facility] Comment on above: Order Comment: Robb clement Type: TISSUE SPECIMENOrdering Facility: [facility] Address: [address] [place] [address] Result Comment: A. A denovirus stain is negative for viral inclusions. Dr Valorie Jaimes has reviewed this part of the case and concurs. Laboratory Developed Test (LDT) Disclaimer: Performance characteristics of immunohistochemical, immunofluorescent and chromogenic in-situ hybridization tests have been determined by the performing laboratory within [facility]???s [facility]ul [facility] Pathology and Laboratory Medicine [place] ([facility], [facility], [facility] or [facility]) in a manner consistent with CLIA requirements. One or more of these tests have not been cleared or approved by the FDA. [facility] is regulated under CLIA as qualified to perform high-complexity testing. These tests are used for clinical purposes. They should not be regarded as investigational or for research. Positive and negative controls stain appropriately. Performed By: #### S ####[facility] LABCLIA [id number] [address] [place] FINAL DIAGNOSIS Normal [facility] Comment on above: Order Comment: Matai men Type: TISSUE SPECIMENOrdering Facility: [facility] Address: [address] [place] [address] Result Comment: A. D uodenum, biopsy: - Incidental and minute tubular adenoma, negative for high grade dysplasia. See comment. - Duodenal mucosa with no diagnostic alterations. B. Stomach, biopsy: - Oxyntic and antral mucosa with no diagnostic alteration. - No morphologic evidence of H. Pylori microorganisms. C. Stomach, polypectomy: - Hyperplastic polyp. Performed By: #### S ####[facility]CLIA [id number] [address] FINAL PERFORMING LAB Normal [facility] Comment on above: Order Comment: Speci men Type: TISSUE SPECIMENOrdering Facility: [facility] Address: [address] [place] [address] Result Comment: Diag nostic interpretation performed at [facility], [address] [place] [address] CLIA# [id number] Tying Machine Operator: Constantin Quevedo M.D. Performed By: #### S ####[facility] LABCLIA [id number] [address] GROSS DESCRIPTION Normal [facility] Comment on above: Order Comment: Speci men Type: TISSUE SPECIMENOrdering Facility: [facility] Address: [address] [place] [address] Result Comment: A. D UODENUM BIOPSY Received [...] in one cassette. Gross examination performed at [facility], [address] [place] [address], [place] [address] TTN 01/02/2022 12:06 AM Performed By: #### S ####[facility] ANKUR [id number] [id number] [address] [place] [facility] Upper GI endoscopyon --2 022 Upper GI endoscopy A31 Gastrointestinal Endoscopy Patient Name: Sai Guerrero Procedure Date: 01/01/2022 3:37 PM Date of : 1970 Admit Type: Outpatient Age: 51 [address]: [address] Gender: Female Note Status: Finalized [...] the patient. 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 All rights reserved. The codes documented in this report are preliminary and upon computer language coder review may be revised to meet current compliance requirements. Attending Participation: I personally performed the entire procedure. 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 Type of instruction [...] Status:Closed by JOSE ROBERTO VYAS on 12/28/21 [facility] Zi 12-25-2021 [facility] Telephone (GAPRA3) SAI WELLS ([id number]) 1970 F Date Time Provider Department 12/25/21 [...] Encounter Status:Closed by RIMA GERARD on 12/25/21 [facility] 12-18-2021 [facility] Telephone (GAPRA3) SAI WELLS ([id number]) 1970 F Date Time Provider Department 12/18/21 BHUPINDER CARREON GAPRA3 During your visit today, we recorded the following information about you: Bhupinder Carreon MA 12/18/2021 10:51 AM Signed Attempted to reach the patient at the contact number that they provided [phone] (home) . Unable to speak with patient [...] Encounter Status:Closed by BHUPINDER CARREON on 12/18/21 [facility] 12-13-2021 [facility] Telephone (EVANGELINA) SAI WELLS ([id number]) 1970 F Date Time Provider Department 12/13/21 ANASTASIYA MOSQUEDA [facility] During your visit today, we recorded the following information about you: Elizabeth Jimenez [facility] 12/13/2021 11:20 AM Signed Received a call from patient's health agency concerning virtual visit set up with you today at 11 - Patient has not registered for [employer] (having trouble accessing her email) AND they want to know if you will do a phone visit instead Was told this was an urgent request from the referring doctor's office - the visit was scheduled thru the Referring Physician office There are no records found for this patient AND I attempted to pull records thru Care Everywhere Patient's phone [phone] Elizabeth Jimenez [facility] Elizabeth Jimenez [facility] 12/13/2021 12:33 PM Signed Spoke to patient's daughter - she will contact the [email or web address] support line to assist with setting up patient's groopifyhart AND assist with set up for virtual visit tomorrow morning [facility] 12/14/2021 12:34 PM Signed Patient phoned again unable to connect with you via [employer] Okay to schedule phone visit tomorrow? [phone] Elizabeth Jimenez [facility] Elizabeth Jimenez [facility] 12/14/2021 1:32 PM Signed Patient scheduled for phone visit Dec 15 at 11 am - patient instructed not to screen her calls at the time of the visit AND to answer her phone [facility] Elizabeth Jimenez [facility] 12/15/2021 11:46 AM Addendum Patient called the office stating you did not phone her for her 11 am appt today- she confirmed the phone number on file tennis desk team member checked the patient in as arrived you should be able to call her back without rescheduling the time [phone] Elizabeth Jimenez [facility] Allergies As of Date: 12/13/2021 (No Known [...] by ELIZABETH RODRIGUEZ on 12/13/21 Normal [facility] BNPon 12-11-2021 Natriuretic peptide B (Bld) [Mass/Vol] 134.0 pg/mL Normal <=900.0 [facility] Comment on above: Performed By: #### M MAChari #### [facility] [address] [place] [address] Dr. Prince Olivas CBC AUTO DIFFon 12-11-2021 BASO # 0.0 103/ul Normal 0.0-0.1 [facility] Comment on above: Performed By: #### L IPID, CMP #### [facility] [address] [place] [address] Dr. Prince Olivas Basophils/100 WBC (Bld) 0.4 % Normal 0.2-2.0 [facility] Comment on above: Performed By: #### L IPID, CMP #### [facility] [address] [place] [address] Dr. Prince Olivas EO # 0.0 103/ul Normal 0.0-0.7 [facility] Comment on above: Performed By: #### L IPID, CMP #### [facility] [address] [place] [address] Dr. Prince Olivas Eosinophils/100 WBC (Bld) 0.3 % Critically low 0.9-7.0 [facility] Comment on above: Performed By: #### L IPID, CMP #### [facility] [address] [place] [address] Dr. Prince Olivas Erythrocyte distribution width (RBC) [Ratio] 13.1 % Normal 11.0-15.0 [facility] Comment on above: Performed By: #### L IPID, CMP #### [facility] [address] [place] [address] Dr. Prince Olivas Hematocrit (Bld) [Volume fraction] 45.9 % Normal 36.0-48.0 [facility] Comment on above: Performed By: #### L IPID, CMP #### [facility] [address] [place] [address] Dr. Prince Olivas Hemoglobin (Bld) [Mass/Vol] 15.3 g/dL Normal 12.0-16.0 [facility] Comment on above: Performed By: #### L IPID, CMP #### [facility] [address] [place] [address] Dr. Prince Olivas IG # 0.04 10e3/ul Critically high 0.00-0.03 [facility] Comment on above: Performed By: #### L IPID, CMP #### [facility] [address] [address] [address] Prince Olivas IG % 0.4 % Normal 0.0-0.5 [facility] Comment on above: Performed By: #### L IPID, CMP #### [facility] [address] [place] [address] Dr. Prince Olivas LYMPH # 1.9 103/ul Normal 1.2-3.8 [facility] Comment on above: Performed By: #### L IPID, CMP #### [facility] [address] [place] [address] Dr. Prince Olivas Lymphocytes/100 WBC (Bld) 17.0 % Critically low 20.5-60.0 [facility] Comment on above: Performed By: #### L IPID, CMP #### [facility] [address] [place] [address] Dr. Prince Olivas MANUAL DIFF REQ NO Normal [facility] Comment on above: Performed By: #### L IPID, CMP #### [facility] [address] [place] [address] Dr. Prince Olivas MCH (RBC) [Entitic mass] 31.4 pg Normal 26.7-34.0 [facility] Comment on above: Performed By: #### L IPID, CMP #### [facility] [address] [place] [address] Dr. Prince Olivas MCHC (RBC) [Mass/Vol] 33.3 g/dL Normal 29.9-35.2 [facility] Comment on above: Performed By: #### L IPID, CMP #### [facility] [address] [place] [address] Dr. Prince Olivas MCV (RBC) [Entitic vol] 94.3 fL Normal 81.0-99.0 [facility] Comment on above: Performed By: #### L IPID, CMP #### [facility] [address] [place] [address] Dr. Prince Olivas MONO # 0.6 103/ul Normal 0.3-0.8 [facility] Comment on above: Performed By: #### L IPID, CMP #### [facility] [address] [place] [address] Dr. Prince Olivas Monocytes/100 WBC (Bld) 5.6 % Normal 1.7-12.0 [facility] Comment on above: Performed By: #### L IPID, CMP #### [facility] [address] [place] [address] Dr. Prince Olivas NEUT # 8.3 103/ul Critically high 1.4-6.5 [facility] Comment on above: Performed By: #### L IPID, CMP #### [facility] [address] [place] [address] Dr. Prince Olivas Neutrophils/100 WBC (Bld) 76.3 % Critically high 43.0-75.0 [facility] Comment on above: Performed By: #### L IPID, CMP #### [facility] [address] [place] [address] Dr. Prince Olivas Platelet mean volume (Bld) [Entitic vol] 12.1 fL Normal 9.5-13.5 [facility] Comment on above: Performed By: #### L IPID, CMP #### [facility] [address] [place] [address] Dr. Prince Olivas PLT 204 103/ul Normal 150-450 [facility] Comment on above: Performed By: #### L IPID, CMP #### [facility] [address] [place] [address] Dr. Prince Olivas RBC 4.87 106/ul Normal 4.20-5.40 [facility] Comment on above: Performed By: #### L IPID, CMP #### [facility] [address] [place] [address] Dr. Prince Olivas WBC 10.9 103/ul Normal 4.0-11.0 [facility] Comment on above: Performed By: #### L IPID, CMP #### [facility] [address] [place] [address] Dr. Prince Olivas LACTATE/LACTIC ACIDon 2021 Lactate [Moles/Vol] 1.9 mmol/L Normal 0.4-1.9 [facility] Comment on above: Performed By: #### S ARGENTINAEDISON #### [facility] [address] [place] [address] Dr. Prince lOivas LIPASEon 12-11-2021 Lipase [Catalytic activity/Vol] 49.0 U/L Critically low 73.0-393.0 [facility] Comment on above: Performed By: #### M MA2 #### [facility] [address] [place] [address] Dr. Prince Olivas PROF 14(COMP METB)on 022 Albumin [Mass/Vol] 4.5 g/dL Normal 3.4-5.0 [facility] Comment on above: Performed By: #### M ADRIAN2 #### [facility] [address] [place] [address] Dr. Prince Olivas Albumin/Globulin [Mass ratio] 1.7 {ratio} Normal [facility] Comment on above: Performed By: #### M ADRIAN2 #### [facility] [address] [place] [address] Dr. Prince Olivas ALP [Catalytic activity/Vol] 83 U/L Normal 46-116 [facility] Comment on above: Performed By: #### M ADRIAN2 #### [facility] [address] [place] [address] Dr. Prince Olivas ALT [Catalytic activity/Vol] 19 U/L Normal 14-59 [facility] Comment on above: Performed By: #### Marine CAMPBELL2 #### [facility] [address] [place] [address] Dr. Prince Olivas Anion gap [Moles/Vol] 15.8 mmol/L Normal [facility] Comment on above: Performed By: #### M ADRIAN2 #### [facility] [address] [place] [address] Dr. Prince Olivas AST [Catalytic activity/Vol] 15 U/L Normal 15-37 [facility] Comment on above: Performed By: #### M ADRIAN2 #### [facility] [address] [place] [address] Dr. Prince Olivas Bilirubin [Mass/Vol] 0.6 mg/dL Normal 0.2-1.0 [facility] Comment on above: Performed By: #### M MA2 #### [facility] [address] [address] [address] Prince Olivas Calcium [Mass/Vol] 9.3 mg/dL Normal 8.5-10.1 [facility] Comment on above: Performed By: #### M MA2 #### [facility] [address] [address] [address] Prince Olivas Chloride [Moles/Vol] 103 mmol/L Normal 98-107 [facility] Comment on above: Performed By: #### M MA2 #### [facility] [address] [place] [address] Dr. Prince Olivas CO2 [Moles/Vol] 25.9 mmol/L Normal 21.0-32.0 [facility] Comment on above: Performed By: #### M MA2 #### [facility] [address] [place] [address] Dr. Prince Olivas Creatinine [Mass/Vol] 0.97 mg/dL Normal 0.55-1.02 [facility] Comment on above: Performed By: #### Marine MA2 #### [facility] [address] [place] [address] Dr. Prince Olivas EGFR-AF NORWEGIAN >60 Normal >=60 [facility] Comment on above: Performed By: #### Marine MA2 #### [facility] [address] [place] [address] Dr. Prince Olivas EGFR-NON AF NORWEGIAN >60 Normal >=60 [facility] Comment on above: Performed By: #### M MA2 #### [facility] [address] [place] [address] Dr. Prince Olivas Globulin (S) [Mass/Vol] 2.7 g/dL Normal [facility] Comment on above: Performed By: #### M MA2 #### [facility] [address] [place] [address] Dr. Prince Olivas Glucose [Mass/Vol] 107 mg/dL Critically high 74-106 [facility] Comment on above: Performed By: #### M MA2 #### [facility] [address] [address] [address] Prince Olivas Potassium [Moles/Vol] 3.7 mmol/L Normal 3.5-5.1 [facility] Comment on above: Performed By: #### M MA2 #### [facility] [address] [address] [address] Prince Olivas Protein [Mass/Vol] 7.2 g/dL Normal 6.4-8.2 [facility] Comment on above: Performed By: #### M MA2 #### [facility] [address] [address] [address] Prince Olivas Sodium [Moles/Vol] 141 mmol/L Normal 136-145 [facility] Comment on above: Performed By: #### M MA2 #### [facility] [address] [address] [address] Prince Olivas Urea nitrogen [Mass/Vol] 11.0 mg/dL Normal 7.0-18.0 [facility] Comment on above: Performed By: #### M MA2 #### [facility] [address] [address] [address] Prince Olivas Urea nitrogen/Creatinine [Mass ratio] 11.3 mg/mg Normal [facility] Comment on above: Performed By: #### M MA2 #### [facility] [address] [address] [address] Prince Olivas TROPONIN, HIGH SENSITIVITYon 12-11-2021 HSTROP 5.5 pg/mL Normal 4.0-51.3 [facility] Comment on above: Result Comment: CUT- OFF POINTS HAVE BEEN ESTABLISHED BASED ON THE FOURTH UNIVERSAL DEFINITIONS OF MYOCARDIAL INFARCTION. THE UPPER REFERENCE LIMIT (URL) OF TROPONIN, DEFINED THE 99TH PERCENTILE OF cTnI DISTRIBUTION IN A REFERENCE POPULATION, HAS BEEN CONFIRMED THE DECISION THRESHOLD FOR [place] DIAGNOSIS. Performed By: #### M MA2 #### [facility] [address] [address] [address] Prince Olivas XR CHEST 1 Von [...] by: BRITNI HARRISON Date: 2021-12-11 15:20 Normal [facility] Coding Summary.on 12-06-2021 Coding Summary. CD:[id number] Gh0bWw+P GhlYWQ+SE3OKRSqN53qyCNcyF8ET 2yJIM6ZAZRILCRJGH6VHI7mrJU5I YxzD9TymiAg OgdnwNQgVO84VEg6OZM9nBunVOvz lX3iuCFeX9r5KwDtNG61iP49HLub LYFtKuK5ArAfgxnlcXUe K5ayQdGmfFOmTkz+PHRhYmxlIHdp UBPeJLtkPVXaAfMfcZlcNX7zUv3e ZGVyLWNvbGxhcHNlOiBj m0dqZTCfPCqcKC0ofOhmS5PieIX6 BVKvh6c1Bs11xTM+BYQpTFQ6zQfu KLsib603YrWlt9gqZPJ4 fOHyUFfjZIS9Q16yh0X7MCUbHIMw LTK5iMH1uH1mvEosizvqW6XlcZUq UnK3WIG4jETjjN3mzJoi mrnzyP6iOxd+M23ALG4IOYNJKX1D Xwz0L1NdBtcfaHH+UO04BEEbHD36 zDQqsOKiw4ztbFq0HiQq XTPkFBM0sFqvXZvlj6BnHVWvK65q sGZdr3W5UUNerCykiCLfUrRntWG5 oG9wEMqjdupep8ihnjcl Tolsp9yboj03wU56V09sOEurLCZo MBW6XGYlOITzzLkfnx6poW3nCs7+ ZWsbv5bnp0yiaUd7AkRc WSZgrmHlxKzqBSM9c8XlGz24S2Qm vEwnh6YoWcy6li54cUUrk6F8mZS0 TQtkIAQsoS2rHCizLoW5 ZHZvKvYlmO07xSLmVAolPp5kyVzf kIhcEN1vFQTzsfwiNPFvqP4tBLRn sQYpsYhzFX3aEBPhvekn o963PmQoRID3PFIqaZKmV6NlyK1p LaUmXHHoWRTeQ9XbjMNtHIucB360 TKdcNfH8CWNrvsCfF7Fh NTIfaIhfYqT2o5Z2Vk9Vw2Iayjwi NMR2HMpjPUO9XrVlEoWtXlQ3K5Yi Khx5HYIupCsjZD8dS3Ba NVQdnqlyvzkrfFL3BIAaWJAhjC60 gYBmLBytTk9in3P8z460DFRyTUHl hV68Bn0nkHshJGOffKQP lM4lqofvi8rqjfcoAxLaRYXxDSm6 CJy2LAMzfGlsEiXcTKZ9XtI5IRW9 jQJlsF4prGcasnkfgK6s Oyc+G23xuX4mIQR5MZF0rkdcZPWl gjZtTR57XS96B1CtXgsjvOKakXO+ HSThgoYjiGsgKR1dQfEv h9ped4QvWGfjN5AeLZRmMQijQty9 ODFxJHV5uXG7aD2oIRRaHIvzb4C9 vDR2J1OiytZfhn3lo9qo PHDmLJhkG83kjHAqe9R2OUJpbWM2 HBXizCktJjMtvL54Itl+PGNvbGdy y0UoWrnzg3eqv3gkyAl3 LhKcDQPbpbAuvBpfYWF1j9TxBz21 P70dWRbjIPBhYDOeSLDkPKOxiAsd ro4ziQ5xRh1+PGNvbCB3 pEL6pG2mBQFkZoF1JFweG914GkQy uTFaEgfks4jia7cawNf8SrMmUJYl qfOqnGohZIF9h6TeLj55 C01yASipPLLsBKHlVLFkNKCypHqs sa0odF9hYm6+SN3fd6uacm76jF95 dHI+KJBaLOQ7qXybESdc JNRwgL0kIJlvZlG5KTMsYuEhiQ85 nEYjYTjwUg8luCqqnFlmYW6lBAWe darmm149XyBho2stQSJn aBLfBJtlOVC9C18qe2J7QCPnACEx XSN8aLN0yI6ssBjvogwxuHYvbGam smYpdCakVWegTHlwH669 IHRvcDsnPlBhdGllbnQgTmFtZTo8 Q5EfJmr0HPQrmMrlVA8qlKNbVFqg Ic3diAknxQoxWM6jOFEp niilb167WvOpf8abDEBxyOAmYOpz MQR1H07at6W4IUDbSFHeRPU4mZB4 aR5qwMffgjsicLQduMvd cnYeyGbbIMhgCCqpY316WWSkaQos EmEspdSiGENyhKT6HK19XT45wOPv h1P1xHD9Q2XgLEHgclra ntxyyKH7ILGcPBSzyD24Kf7cbNxh Sy0uWVMwKUY9TPAqxOQmZ1GapY4x PdQpZRAzEHGtD5RoqQVc DMuaG914BUtcVbV4NPOlwfWtA8Sk ZUAjwVnbAtQ0l6K7Yl2DJ2F9KR55 HW10sNPbe6Z3wIZ0Y1Vi OTElpkknziifcNR2XKHnRDMzqK99 Bg2xnQsjOc3aTGLqQBS3SWJevJPb N3WcwL5gHoNlSWIvIEVc X0OifXGfZXotW943KQorFwG3MWRb izObC0KqQTWyxAqlQbJ1p4S7Yj0P KJa0HE35CX93nSPyv7S2 eDF6H0LlNWJboemeradrjAC4MVRh IHLvmM75Yj4ttLjoDe2eDVTaFTW8 CAJrnNDjQ1KcsZ1jIwCo ZTUmNTNqO1BxmINfXJbkQ905CXpo WaY2JORpksIdT5JkFCFiuRvzNjY5 h8W8Lq2NVBUfAN38FFW2 wAV0KC51XJ83A2KoUbmfwBKglZO+ PHRhYmxlIHdpZHRoPScxMDAlJyBz jPuuSQ5zZr7sNGLrRTGs dRidiOKkBwAgm0iuQZKtRUdgRO5u wPuqJ1HwtRY5PXDpa7h6Nt11W21y O4HfsOT+GGIgkTH3qOD4 xK2hTaZrIzG9RWrzH329LnSwsRPd Rpsod9lpa3ptxUq1PzR2LXXitwXk kKvySNY4c8YkSy87N75x NFyeHTPrBLIkLPDjGRSznIxxbm9u vS6hAb5+ZBThwZW5fTV5rG7hSdSt OgY9IGdvF650MyBilCPk Wnfcr1cjp0irxRf4NiFqBRLelkWc dRpoTRQ7c9FbFt77M6NvxTikb5Qv Kzh8vw98rLCcy8S3gKR4 M8JlFAQxurrveLFjnVtlHO6lHZIs dcrfSBTdfO2wLILuU7b1CqLfGaV9 GYdfP9BswpA1GAGifBBc RZljFKP2Y41bp4H0JYJjKNLpFRG4 oGJ3kY5qsKmrnegkcIWjqWtxdoEd pCdrFZojLYwoR586VKUs iSfiSTMtxU8aAGKzwHGgpCxePF1a NTBpbjsnPldFQVZFUiwgUkhPTkRB GFG3C9BsTxy6DUShmGoo TA2vkOZhGPrjFr4rxObydLrcWT4z FYVyuqxkLEIxtS0hDDAypALauXhw HF3eVUOybhvmi747UtFs LWN6CSModSHeY7EwbC1dXfTuASGu RWFlS2DwrCFvCChsJ085EPxdRyB8 PMWjoxYqJ1HpPBXseDbf AtE1t6K4Dk9yMo5sEe1wIYslFE20 EM95fEBtz3W1lLB7M0HaFLHaghib yfakwSO2IMMpXOYqoD94 pUGzPJdwVf2gb7S1w978RUHhXECh uL82Bd5qmNkuGDMwgUPZtA2mfytp x9mjkyoaPiBoJWPzVJy4 WOt6EAGgzOpzZrEfTLV6YlY7XZP9 lHSriE8otJblmcwnjI5fNjo+NTEg ZFWoasI3E9GpUgg2UQNr nPiaLU9nhTCoYBegPm7thMuimYch KE9fGVVabezyXXSdvE2dCCRdiGIs wEcfTQ8pBAFtvcpge599 UoIkDZX2ZNVduBTfG9DwsX4vMvDo LFFoHEItS8GeaZHyGAtcE020CDha EhZ5NXNilzFjQ3CdPJDy pHojMvT2p1F8Qo3RPS0iuNO9O6My Ffq8OWWfpFkwJJ3njGExWAcvAc5q hEtiiVpuIT6mMBWbciut QUKvxO1hKJEklFEmyOnzSV9tNUSt jezkm616OfTmDYK8NRHntMHdA7Af yC8yVeQpNIRkWUVwX3Ae dUBnPPqoU801LHpgRjV1ZMRedjJy P9OpJAXmoMboZuU5q6V2Gv3JmCGi E3DuO1q1C2HjIcvkgFZ+ DK27DWSyYS77gTUsgEApd8imzKq5 ScWiSFKrVMA3hQokFCjrm0YfGHDi Y04mpQSvz2L5MZLxdZhz sEYrLaWslXS4cO5qIWqwsnoog2iv wrciZexit1iqoi79oX70W80qRUje ZHRoPSIzMCUiIHZhbGln fd2rsX1iOm0+KUEctAZ4vSX4xJ2a YpZjHeH7XGomW932BgFltSZkCwck w0drs5eadOu8GoAgTTTg wgUkrCoyNRX8n3LeKe27X46hUChh HZBiDAPqNAYqILPlwHztpp3skA9w Ii8+BU1cd0lzwa07gZ81 dHI+AVPvVPV7dPvrOGggUEJbpF1j PSdbKyS9LQLjOmTkfE31dXPnMEjw Zk3noPkooIdjVW5jBSJm rkmub103TfVsx2sjSOMsqKKcKXxt YAG3B97bv4I0DLGdKNNdYHI4eAT2 gF3coLekgsscsQZqgEco yoScaTjtYVfnAZtpP935JGSjmQib AgCaaJFwN5kdiuBSBM8vVocxhRS+ HPMyNKX2pSlbDOdxOTTs pZ3gQYSjS3r5QvNuKlK5UJndV8Cc ukF5XGIlcAXlQEMbfQINlW3ckcof x3gxlpqiMgMuCWBgFYq8 MIe5BZTfzHinStUnKTQ3FtG4WQQ3 jBQnxA2rfEsbbsmlkD1mZqa+RklO OjwvdGQ+SBHuQHK2xBaw DSqpQCMfhU3hDJGqH9i7WdNpYjD8 QIxoP7CgqzZ8IUHsjDXhYOKqsSWN hL1jukxeb3nvbtqeJdNm EHSiXYt6HMf0AYLrgYfrGqGcTUL3 OyW9GAI5iWUdbD2csDwudgbipO2r Oyc+TVJOOjwvdGQ+PHRk CKB5kBoiKYrqQAKpzE6yLMVjF1q2 QjRiCqL8IPpzL0LoduT5QSRhbISp YQRpwOGTyJ9eccuyf1qi lzsdEpAgVUPhSNa4SFl6JPGvnIvz QyHnRGI3CeV5URV8lJJrbC0nrYic cgfhvK5bFiz+FFR5NAE5 LU62KM63H4KwYvgnjMCdeIZ+PHRh YmxlIHdpZHRoPScxMDAlJyBzdHls CU5rRl4yBLRfWTFpbXpw cHNl (more content not included)... Normal [facility] Amylaseon 12-03-2021 Amylase [Catalytic activity/Vol] 32 U/L Normal 25-157 [facility] Comment on above: Performed By: #### 1 9333422, 3348891, 6940596, 6928134, 2562716, 4079879, 2359084 #### [facility] [address] [place] [address] Auto Diffon 12-03-2021 Basophils/100 WBC (Bld) 0.6 % Normal 0.0-2.0 [facility] Comment on above: Order Comment: Order Added by Discern Expert. Performed By: #### 1 2519260, 2393765, 6520712, 4624682, 8819436, 7784773, 6679465 #### [facility] [address] [place] [address] Basophils/Leukocyte s Auto (Bld) [Pure # fraction] 0.1 E9/L Normal 0.0-0.2 [facility] Comment on above: Order Comment: Order Added by Discern Expert. Performed By: #### 1 4874725, 1926741, 8175580, 5003044, 8479335, 1766207, 1023097 #### [facility] [address] [place] [address] Eosinophils/100 WBC (Bld) 0.1 % Normal 0.0-8.0 [facility] Comment on above: Order Comment: Order Added by Discern Expert. Performed By: #### 1 4028893, 2129323, 5176552, 4165175, 6684779, 7218631, 7419543 #### [facility] [address] [place] [address] Eosinophils/Leukocy lefty Auto (Bld) [Pure # fraction] 0.0 E9/L Normal 0.0-0.5 [facility] Comment on above: Order Comment: Order Added by Discern Expert. Performed By: #### 1 6099462, 6924391, 6363692, 7505275, 9231608, 9019798, 7749245 #### [facility] [address] [place] [address] Lymphocytes/100 WBC (Bld) 16.1 % Normal 14.0-50.0 [facility] Comment on above: Order Comment: Order Added by Discern Expert. Performed By: #### 1 8110763, 1806587, 5033130, 2036877, 9287609, 8153423, 8623152 #### [facility] [address] [place] [address] Lymphocytes/Leukocy lefty Auto (Bld) [Pure # fraction] 1.5 E9/L Normal 1.0-4.0 [facility] Comment on above: Order Comment: Order Added by Discern Expert. Performed By: #### 1 4871451, 3782487, 4777281, 7266455, 3853805, 7140448, 8784745 #### [facility] [address] [place] [address] Monocytes/100 WBC (Bld) 4.6 % Normal 4.0-14.0 [facility] Comment on above: Order Comment: Order Added by Discern Expert. Performed By: #### 1 2305643, 2607510, 6848479, 4224843, 7031713, 3382388, 3044403 #### [facility] [address] [place] [address] Monocytes/Leukocyte s Auto (Bld) [Pure # fraction] 0.4 E9/L Normal 0.2-1.0 [facility] Comment on above: Order Comment: Order Added by Discern Expert. Performed By: #### 1 7263393, 3563387, 9067762, 7245482, 3213714, 3555890, 5990895 #### [facility] [address] [place] [address] Neutrophils/100 WBC (Bld) 78.6 % High 36.0-75.0 [facility] Comment on above: Order Comment: Order Added by Discern Expert. Performed By: #### 1 1388976, 4078095, 2757764, 4166802, 3224743, 6717327, 3885159 #### [facility] [address] [place] [address] Neutrophils/Leukocy lefty Auto (Bld) [Pure # fraction] 7.6 E9/L High 2.0-7.5 [facility] Comment on above: Order Comment: Order Added by Discern Expert. Performed By: #### 1 7109086, 8304267, 7420010, 3349254, 4122117, 3938821, 3219830 #### [facility] [address] [place] [address] BMPon 12-03-2021 Creatinine [Mass/Vol] 1.1 mg/dL Normal 0.5-1.3 [facility] Comment on above: Performed By: #### 1 8928764, 0423069, 5441810, 4840871, 9386993, 8714297, 1830962 #### [facility] [address] [place] [address] Urea nitrogen [Mass/Vol] 21 mg/dL Normal 5-21 [facility] Comment on above: Performed By: #### 1 5635380, 9802347, 0351329, 2328744, 4434202, 8548063, 3348561 #### [facility] [address] [place] [address] Urea nitrogen/Creatinine [Mass ratio] 19 No Units Normal 10-20 [facility] Comment on above: Performed By: #### 1 6071839, 4310730, 8488615, 7739957, 7093567, 4115883, 9559795 #### [facility] [address] [place] [address] Anion gap [Moles/Vol] 22 mmol/L High 6-16 [facility] Comment on above: Performed By: #### 1 7918739, 9930708, 9129531, 2373734, 5147326, 1109549, 3140236 #### [facility] [address] [place] [address] Calcium [Mass/Vol] 9.8 mg/dL Normal 8.9-11.1 [facility] Comment on above: Performed By: #### 1 0217339, 7351952, 9052418, 9311095, 4465737, 2889897, 4922561 #### [facility] [address] [place] [address] Chloride [Moles/Vol] 96 mmol/L Low 101-111 [facility] Comment on above: Performed By: #### 1 8954996, 8095595, 6911274, 5866967, 0134893, 3188801, 5235712 #### [facility] [address] [place] [address] CO2 [Moles/Vol] 19 mmol/L Low 21-31 [facility] Comment on above: Performed By: #### 1 8957580, 9330360, 8581214, 4521562, 8558905, 7137667, 9584348 #### [facility] [address] [place] [address] Glucose [Mass/Vol] 64 mg/dL Normal 55-199 [facility] Comment on above: Result Comment: If t his glucose result represents a fasting glucose, interpretation should refer to the following reference range: 55-99 mg/dL Performed By: #### 1 7947332, 2169583, 3486426, 0934502, 3681461, 0789646, 4457312 #### [facility] [address] [place] [address] Potassium [Moles/Vol] 4.3 mmol/L Normal 3.5-5.3 [facility] Comment on above: Performed By: #### 1 6932369, 6040636, 8243785, 5348471, 2299237, 7469561, 7620954 #### [facility] [address] [place] [address] Sodium [Moles/Vol] 133 mmol/L Low 135-145 [facility] Comment on above: Performed By: #### 1 3319358, 8607470, 4794687, 6958536, 8602622, 2780143, 8106226 #### [facility] [address] [place] [address] CBC w/ Auto Diffon Erythrocyte distribution width (RBC) [Ratio] 13.5 % Normal 10.9-14.2 [facility] Comment on above: Performed By: #### 1 7803141, 8311028, 1045088, 2597133, 4098763, 1173350, 7117637 #### [facility] [address] [place] [address] Hematocrit (Bld) [Volume fraction] 51.0 % High 34.0-46.0 [facility] Comment on above: Performed By: #### 1 8593786, 3320321, 3721683, 1219388, 2896208, 9773501, 1029854 #### [facility] [address] [place] [address] Hemoglobin (Bld) [Mass/Vol] 16.8 g/dL High 12.0-16.0 [facility] Comment on above: Performed By: #### 1 1381263, 3980160, 2748868, 1839676, 4815700, 2985560, 3785748 #### [facility] [address] [place] [address] MCH (RBC) [Entitic mass] 30.9 pg Normal 27.0-34.0 [facility] Comment on above: Performed By: #### 1 0265627, 1983131, 5527531, 4987590, 0420987, 5341981, 6304296 #### [facility] [address] [place] [address] MCHC (RBC) [Mass/Vol] 32.9 g/dL Normal 31.4-36.0 [facility] Comment on above: Performed By: #### 1 1709569, 4128779, 7601291, 3514868, 8467069, 4798289, 9914326 #### [facility] [address] [place] [address] MCV (RBC) [Entitic vol] 94.0 fL Normal 80.0-100.0 [facility] Comment on above: Performed By: #### 1 7029994, 9905113, 2185993, 1504705, 4237756, 3395086, 7225538 #### [facility] [address] [place] [address] Platelet mean volume (Bld) [Entitic vol] 9.8 fL Normal 6.4-10.8 [facility] Comment on above: Performed By: #### 1 5667395, 1950916, 9488454, 3237821, 7115982, 9970316, 1413157 #### [facility] [address] [place] [address] Platelets (Bld) [#/Vol] 212.0 E9/L Normal 150.0-500.0 [facility] Comment on above: Performed By: #### 1 9808019, 0402048, 0013924, 9876659, 2010361, 5962859, 7565515 #### [facility] [address] [place] [address] RBC (Bld) [#/Vol] 5.4 E12/L Normal 4.3-5.9 [facility] Comment on above: Performed By: #### 1 6713436, 9640524, 2219200, 1296811, 1728370, 2273205, 3292275 #### [facility] [address] [place] [address] WBC corrected for nucl RBC Auto (Bld) [#/Vol] 9.6 E9/L Normal 4.0-11.0 [facility] Comment on above: Performed By: #### 1 1742822, 1911860, 9966046, 6264897, 6906233, 4166972, 1534653 #### [facility] [address] [place] [address] Consent for Treatmenton 11-16 Consent for Treatment [id number]:127 Normal [facility] Discharge Instructionson Discharge Instructions [id number]:127 Normal [facility] ED Clinical Summaryon 2021 ED Clinical Summary (Inserted Image. Antoinette ble to display) [address] [address] ED Clinical Summary Person Information Name: SAI PINEDA Natalie/[facility] Age: 51 Years : 1970 Sex: Female Language: Urdu PCP: CRISTINA IQBAL CNP Marital Status: Visit Id: Visit Reason: Nausea; Abdominal pain; [id number] BREATHING Speciality: Acuity: 3 Enc Type: Emergency [...] 12/03/2021 13:54:54 12/03/2021 13:54:54 12/03/2021 13:54:54 ADDRESS: [address] [place] [id number] PHYS DOC NOTES: MEDICAL INFORMATION: Prescriptions Given: New Medications [facility]/pharmacy #[id number], [address] [place], [place] [id number], [phone] promethazine (Phenergan 25 mg Supp) 1 Suppositories By rectum every 6 hours as needed as needed for nausea. Insert one per rectum every six hours as needed for nausea and vomiting. Refills: 0. promethazine (promethazine 25 mg Tab) 1 Tablets By Mouth every 4 hours. Refills: 0. Medications to Continue Taking That Have Changed [facility]/pharmacy #[id number], [address] [place], [place] [id number], [phone] START: pantoprazole (Protonix 40 mg Tab-DR) 1 [...] day. PATIENT EDUCATION INFORMATION: Instructions: Gastritis, Adult, Dpjo-jq-Xrwt; Abdominal Pain, Adult Follow up: With: Address: When: CRISTINA [place] [address] [place], [place] [phone] Business (1) In 3 days 12/06/2021 DIAGNOSIS: 1:Upper abdominal pain; 2:Gastritis; 3:Anxiety Normal [facility] ED Note-Physicianon 12-04-19 ED Note-Physician Basic Information [...] Daily, # 30 tab(s), Refills(s) 0, [id number], 172.9, cm, 12/03/21 10:15:00 EDT, Height/Length Dosing, 46.2, kg, 12/03/21 10:15:00 EDT, Weight Dosing promethazine, 25 mg = 1 tab(s), Oral, q4hr, # 12 tab(s), Refills(s) 0, [id number], 172.9, cm, 12/03/21 10:15:00 EDT, Height/Length Dosing, 46.2, kg, 12/03/21 10:15:00 EDT, Weight Dosing promethazine, 25 mg = 1 supp, Rectal, q6hr, PRN as needed for nausea, Insert one per rectum every six hours as needed for nausea and vomiting, # 6 EA, Refills(s) 0, [id number], 172.9, cm, 12/03/21 10:15:00 EDT, Height/Length [...] mg/mL IV Misty, 20 mg, IV Push [id number] [F], 1000 mL, IV promethazine 25 mg/mL [...] 3 days 12/06/2021 EDT [address] [place] [address] [phone] Business (1) Additional Instructions: Patient Ed (more content not included)... Normal [facility] Comment on above: Result Comment: Elec tronically Signed By: Chitra SNADOVAL, Vipin\.br\Date and Time Signed: 12/03/21 13:50 EDT [...] these instructions at home: Medicines ? Take icph-brs-pmwadob and prescription medicines only as told by [...] 08/20/2008 Document Revised: 07/22/2018 Document Reviewed: 07/22/2018 [employer] Patient Education ? 2020 [employer]. Abdominal Pain, Adult Pain in the abdomen [...] these instructions at home: Medicines ? Take aztc-esi-qheyujk and prescription medicines only as told by [...] (more content not included)... Normal [facility] ED Patient Summaryon 022 ED Patient Summary (Inserted Image. Antoinette ble to display) [place] [id number] Patient Discharge Instructions Person Information Name: SAI PINEDA Age: 51 Years Arrival Date: 12/03/2021 09:55:45 Discharge Diagnosis: 1:Upper abdominal pain; 2:Gastritis; 3:Anxiety Primary Care Physician: CRISTINA IQBAL CNP Provider Information Primary Provider: Vipin Pina MD Advanced Machine Adjuster Helper:None The exam and treatment you received in the Emergency Department were for an urgent problem and are not intended as complete care. It is important that you follow up with a doctor, nurse practitioner, or physician?s certified physician assistant for ongoing care. If your symptoms [...] When: CRISTINA IQBAL [address], [place], [place] [phone] Business (1) In 3 days 12/06/2021 In the event that this physician does not participate in your insurance network, please consult with your insurance company to find a nearby participating provider. Patient Education Materials: Gastritis, Adult, Ivdc-qw-Embu; Abdominal Pain, Adult A MESSAGE TO ALL PATIENTS REGARDING OPIOIDS PRESCRIPTION OPIOIDS: WHAT YOU NEED TO KNOW Prescription opioids can be used to help relieve ktbimtyb-cn-tushkm pain and are often prescribed following a [...] be struggling with addiction, tell your health director long term care and ask for guidance or call [facility]? (more content not included)... Normal [facility] Hep Func Panelon 12-03-2021 Albumin [Mass/Vol] 5.3 g/dL High 3.3-5.0 [facility] Comment on above: Performed By: #### 1 8586997, 7420333, 8937881, 3973968, 6029564, 2927636, 0627571 #### [facility] [address] [place] [address] Albumin/Globulin (S) [Mass conc ratio] 1.8 Normal 1.1-2.2 [facility] Comment on above: Performed By: #### 1 7661570, 9855849, 2568448, 9412409, 5877797, 3796818, 9192216 #### [facility] [address] [place] [address] ALP [Catalytic activity/Vol] 79 Int._Unit/L Normal 21-98 [facility] Comment on above: Performed By: #### 1 5568977, 4360917, 0229038, 5422241, 3661646, 9064042, 1641696 #### [facility] [address] [place] [address] ALT No additional P-5'-P [Catalytic activity/Vol] 14 Int._Unit/L Normal 6-46 [facility] Comment on above: Performed By: #### 1 0775707, 6217303, 0248227, 2801018, 9881173, 1669862, 7739459 #### [facility] [address] [place] [address] AST [Catalytic activity/Vol] 21 Int._Unit/L Normal 5-43 [facility] Comment on above: Performed By: #### 1 3383074, 3115310, 9951521, 2230899, 1542761, 6782231, 2089957 #### [facility] [address] [place] [address] Bilirubin [Mass/Vol] 1.2 mg/dL High 0.0-1.1 [facility] Comment on above: Performed By: #### 1 2398584, 2181041, 6275851, 0630322, 1728386, 5260309, 1070669 #### [facility] [address] [place] [address] Bilirubin.direct [Mass/Vol] 0.2 mg/dL Normal 0.1-0.4 [facility] Comment on above: Performed By: #### 1 3255873, 2673783, 7189961, 1776871, 7924524, 4188602, 5581232 #### [facility] [address] [place] [address] Bilirubin.indirect [Mass or moles/Vol] 1.0 mg/dL High 0.1-0.9 [facility] Comment on above: Performed By: #### 1 3075160, 8593589, 7477151, 2096524, 2313174, 3474408, 7369727 #### [facility] [address] [place] [address] Globulin (S) [Mass/Vol] 3.0 g/dL Normal 1.4-4.0 [facility] Comment on above: Performed By: #### 1 6878689, 4581329, 0488374, 9610783, 3013246, 2248978, 0079299 #### [facility] [address] [place] [address] Protein [Mass/Vol] 8.3 g/dL High 6.0-7.8 [facility] Comment on above: Performed By: #### 1 0913765, 7714350, 5474158, 1774175, 6676220, 9902634, 5117153 #### [facility] [address] [place] [address] Lipase Levelon 12-03-2021 Lipase [Catalytic activity/Vol] 21 U/L Normal 13-58 [facility] Comment on above: Performed By: #### 1 5018960, 8449248, 7328468, 4523307, 8110782, 9960942, 5346460 #### [facility] [address] [place] [address] eGFRon 12-03-2021 GFR/1.73 sq M.predicted among blacks MDRD (S/P/Bld) [Vol rate/Area] mL/min/{1.73_m2} Normal >=59 [facility] Comment on above: Order Comment: Order added by Discern Expert. Result Comment: eGFR is race adjusted. AA=. Performed By: #### 1 9692240, 0208998, 4241957, 6798209, 2710488, 9541717, 2194813 #### [facility] [address] [place] [address] GFR/1.73 sq M.predicted among non-blacks MDRD (S/P/Bld) [Vol rate/Area] 52 mL/min/1.73 m2 Low >=59 [facility] Comment on above: Order Comment: Order added by Discern Expert. Result Comment: Log Buncher julian kidney disease could be indicated at eGFR's of less than 60 mL/min/1.73m2. Kidney failure is indicated at less than 15 mL/min/1.73m2. Performed By: #### 1 [id number] #### [facility] [address] [place] [address] CARDIAC SIMA ADMITon 022 CK [Catalytic activity/Vol] 72 U/L Normal 26-192 [facility] Comment on above: Performed By: #### S ELNIUM #### [facility] [address] [place] [address] Dr. Prince Olivas CK.MB [Mass/Vol] 1.28 ng/mL Normal <=3.60 [facility] Comment on above: Performed By: #### S ADOREUM #### [facility] [address] [place] [address] Dr. Prince Olivas HSTROP 5.4 pg/mL Normal 4.0-51.3 [facility] Comment on above: Result Comment: CUT- OFF POINTS HAVE BEEN ESTABLISHED BASED ON THE FOURTH UNIVERSAL DEFINITIONS OF MYOCARDIAL INFARCTION. THE UPPER REFERENCE LIMIT (URL) OF TROPONIN, DEFINED THE 99TH PERCENTILE OF cTnI DISTRIBUTION IN A REFERENCE POPULATION, HAS BEEN CONFIRMED THE DECISION THRESHOLD FOR TX DIAGNOSIS. Performed By: #### S ELNIUM #### [facility] [address] [place] [address] Dr. Prince Olivas JENNIFER 58 ng/mL Normal 9-82 [facility] Comment on above: Performed By: #### S ELNIUM #### [facility] [address] [place] [address] Dr. Prince Olivas CBC AUTO DIFFon 11-14-2021 BASO # 0.1 103/ul Normal 0.0-0.1 [facility] Comment on above: Performed By: #### L IPID, CMP #### [facility] [address] [place] [address] Dr. Prince Olivas Basophils/100 WBC (Bld) 0.6 % Normal 0.2-2.0 [facility] Comment on above: Performed By: #### L IPID, CMP #### [facility] [address] [place] [address] Dr. Prince Olivas EO # 0.1 103/ul Normal 0.0-0.7 [facility] Comment on above: Performed By: #### L IPID, CMP #### [facility] [address] [place] [address] Dr. Prince Olivas Eosinophils/100 WBC (Bld) 0.9 % Normal 0.9-7.0 [facility] Comment on above: Performed By: #### L IPID, CMP #### [facility] [address] [place] [address] Dr. Prince Olivas Erythrocyte distribution width (RBC) [Ratio] 13.0 % Normal 11.0-15.0 [facility] Comment on above: Performed By: #### L IPID, CMP #### [facility] [address] [place] [address] Dr. Prince Olivas Hematocrit (Bld) [Volume fraction] 46.3 % Normal 36.0-48.0 [facility] Comment on above: Performed By: #### L IPID, CMP #### [facility] [address] [place] [address] Dr. Prince Olivas Hemoglobin (Bld) [Mass/Vol] 15.8 g/dL Normal 12.0-16.0 [facility] Comment on above: Performed By: #### L IPID, CMP #### [facility] [address] [place] [address] Dr. Prince Olivas IG # 0.03 10e3/ul Normal 0.00-0.03 [facility] Comment on above: Performed By: #### L IPID, CMP #### [facility] [address] [place] [address] Dr. Prince Olivas IG % 0.3 % Normal 0.0-0.5 [facility] Comment on above: Performed By: #### L IPID, CMP #### [facility] [address] [place] [address] Dr. Prince Olivas LYMPH # 2.8 103/ul Normal 1.2-3.8 [facility] Comment on above: Performed By: #### L IPID, CMP #### [facility] [address] [place] [address] Dr. Prince Olivas Lymphocytes/100 WBC (Bld) 31.8 % Normal 20.5-60.0 [facility] Comment on above: Performed By: #### L IPID, CMP #### [facility] [address] [place] [address] Dr. Prince Olivas MANUAL DIFF REQ NO Normal [facility] Comment on above: Performed By: #### L IPID, CMP #### [facility] [address] [place] [address] Dr. Prince Olivas MCH (RBC) [Entitic mass] 31.5 pg Normal 26.7-34.0 [facility] Comment on above: Performed By: #### L IPID, CMP #### [facility] [address] [place] [address] Dr. Prince Olivas MCHC (RBC) [Mass/Vol] 34.1 g/dL Normal 29.9-35.2 [facility] Comment on above: Performed By: #### L IPID, CMP #### [facility] [address] [place] [address] Dr. Prince Olivas MCV (RBC) [Entitic vol] 92.4 fL Normal 81.0-99.0 [facility] Comment on above: Performed By: #### L IPID, CMP #### [facility] [address] [place] [address] Dr. Prince Olivas MONO # 0.6 103/ul Normal 0.3-0.8 [facility] Comment on above: Performed By: #### L IPID, CMP #### [facility] [address] [place] [address] Dr. Prince Olivas Monocytes/100 WBC (Bld) 6.8 % Normal 1.7-12.0 [facility] Comment on above: Performed By: #### L IPID, CMP #### [facility] [address] [place] [address] Dr. Prince Olivas NEUT # 5.3 103/ul Normal 1.4-6.5 [facility] Comment on above: Performed By: #### L IPID, CMP #### [facility] [address] [place] [address] Dr. Prince Olivas Neutrophils/100 WBC (Bld) 59.6 % Normal 43.0-75.0 [facility] Comment on above: Performed By: #### L IPID, CMP #### [facility] [address] [place] [address] Dr. Prince Olivas Platelet mean volume (Bld) [Entitic vol] 11.6 fL Normal 9.5-13.5 [facility] Comment on above: Performed By: #### L IPID, CMP #### [facility] [address] [place] [address] Dr. Prince Olivas PLT 185 103/ul Normal 150-450 [facility] Comment on above: Performed By: #### L IPID, CMP #### [facility] [address] [place] [address] Dr. Prince Olivas RBC 5.01 106/ul Normal 4.20-5.40 [facility] Comment on above: Performed By: #### L IPID, CMP #### [facility] [address] [place] [address] Dr. Prince Olivas WBC 8.9 103/ul Normal 4.0-11.0 [facility] Comment on above: Performed By: #### L IPID, CMP #### [facility] [address] [place] [address] Dr. Prince Olivas LIPASEon 11-14-2021 Lipase [Catalytic activity/Vol] 84.0 U/L Normal 73.0-393.0 [facility] Comment on above: Performed By: #### S ELNIUM #### [facility] [address] [place] [address] Dr. Prince Olivas PROF 14(COMP METB)on 022 Albumin [Mass/Vol] 4.1 g/dL Normal 3.4-5.0 [facility] Comment on above: Performed By: #### S ELNIUM #### [facility] [address] [address] [address] Prince Olivas Albumin/Globulin [Mass ratio] 1.6 {ratio} Normal [facility] Comment on above: Performed By: #### S ELNIUM #### [facility] [address] [address] [address] Prince Olivas ALP [Catalytic activity/Vol] 76 U/L Normal 46-116 [facility] Comment on above: Performed By: #### S ELNIUM #### [facility] [address] [address] [address] Prince Olivas ALT [Catalytic activity/Vol] 14 U/L Normal 14-59 [facility] Comment on above: Performed By: #### S ELNIUM #### [facility] [address] [address] [address] Prince Olivas Anion gap [Moles/Vol] 17.7 mmol/L Normal [facility] Comment on above: Performed By: #### S ELNIUM #### [facility] [address] [address] [address] Prince Olivas AST [Catalytic activity/Vol] 15 U/L Normal 15-37 [facility] Comment on above: Performed By: #### S ELNIUM #### [facility] [address] [address] [address] Prince Olivas Bilirubin [Mass/Vol] 0.7 mg/dL Normal 0.2-1.0 [facility] Comment on above: Performed By: #### S ELNIUM #### [facility] [address] [address] [address] Prince Olivas Calcium [Mass/Vol] 9.4 mg/dL Normal 8.5-10.1 [facility] Comment on above: Performed By: #### S ELNIUM #### [facility] [address] [address] [address] Prince Olivas Chloride [Moles/Vol] 104 mmol/L Normal 98-107 [facility] Comment on above: Performed By: #### S ELNIUM #### [facility] [address] [address] [address] Prince Olivas CO2 [Moles/Vol] 20.8 mmol/L Critically low 21.0-32.0 [facility] Comment on above: Performed By: #### S ELNIUM #### [facility] [address] [address] [address] Prince Olivas Creatinine [Mass/Vol] 0.96 mg/dL Normal 0.55-1.02 [facility] Comment on above: Performed By: #### S ELNIUM #### [facility] [address] [address] [address] Prince Olivas EGFR-AF NORWEGIAN >60 Normal >=60 [facility] Comment on above: Performed By: #### S ELNIUM #### [facility] [address] [address] [address] Prince Olivas EGFR-NON AF NORWEGIAN >60 Normal >=60 [facility] Comment on above: Performed By: #### S ELNIUM #### [facility] [address] [address] [address] Prince Olivas Globulin (S) [Mass/Vol] 2.6 g/dL Normal [facility] Comment on above: Performed By: #### S ELNIUM #### [facility] [address] [address] [address] Prince Olivas Glucose [Mass/Vol] 104 mg/dL Normal 74-106 [facility] Comment on above: Performed By: #### S ELNIUM #### [facility] [address] [address] [address] Prince Olivas Potassium [Moles/Vol] 3.5 mmol/L Normal 3.5-5.1 [facility] Comment on above: Performed By: #### S ELNIUM #### [facility] [address] [address] [address] Prince Olivas Protein [Mass/Vol] 6.7 g/dL Normal 6.4-8.2 [facility] Comment on above: Performed By: #### S ELNIUM #### [facility] [address] [address] [address] Prince Olivas Sodium [Moles/Vol] 139 mmol/L Normal 136-145 [facility] Comment on above: Performed By: #### S ELNIUM #### [facility] [address] [address] [address] Prince Olivas Urea nitrogen [Mass/Vol] 10.0 mg/dL Normal 7.0-18.0 [facility] Comment on above: Performed By: #### S ELNIUM #### [facility] [address] [address] [address] Prince Olivas Urea nitrogen/Creatinine [Mass ratio] 10.4 mg/mg Normal [facility] Comment on above: Performed By: #### S ELNIUM #### [facility] [address] [place] [address] Dr. Prince Olivas XR ABD FLAT UP_PA [...] CHITRA ALFARO Date: 2021-11-14 18:10 Normal [facility] CBC AUTO DIFFon 11-09-2021 BASO # 0.0 103/ul Normal 0.0-0.1 [facility] Comment on above: Performed By: #### S ELNIUM #### [facility] [address] [address] [address] Prince Olivas Basophils/100 WBC (Bld) 0.3 % Normal 0.2-2.0 [facility] Comment on above: Performed By: #### S ELNIUM #### [facility] [address] [place] [address] Dr. Prince Olivas EO # 0.0 103/ul Normal 0.0-0.7 [facility] Comment on above: Performed By: #### S ELNIUM #### [facility] [address] [place] [address] Dr. Prince Olivas Eosinophils/100 WBC (Bld) 0.3 % Critically low 0.9-7.0 [facility] Comment on above: Performed By: #### S ELNIUM #### [facility] [address] [place] [address] Dr. Prince Olivas Erythrocyte distribution width (RBC) [Ratio] 13.1 % Normal 11.0-15.0 [facility] Comment on above: Performed By: #### S ELNIUM #### [facility] [address] [place] [address] Dr. Prince Olivas Hematocrit (Bld) [Volume fraction] 46.8 % Normal 36.0-48.0 [facility] Comment on above: Performed By: #### S ELNIUM #### [facility] [address] [place] [address] Dr. Prince Olivas Hemoglobin (Bld) [Mass/Vol] 15.8 g/dL Normal 12.0-16.0 [facility] Comment on above: Performed By: #### S ELNIUM #### [facility] [address] [place] [address] Dr. Prince Olivas IG # 0.03 10e3/ul Normal 0.00-0.03 [facility] Comment on above: Performed By: #### S ELNIUM #### [facility] [address] [place] [address] Dr. Prince Olivas IG % 0.3 % Normal 0.0-0.5 [facility] Comment on above: Performed By: #### S ELNIUM #### [facility] [address] [place] [address] Dr. Prince Olivas LYMPH # 2.9 103/ul Normal 1.2-3.8 [facility] Comment on above: Performed By: #### S ELNIUM #### [facility] [address] [address] [address] Prince Olivas Lymphocytes/100 WBC (Bld) 31.7 % Normal 20.5-60.0 [facility] Comment on above: Performed By: #### S ELNIUM #### [facility] [address] [address] [address] Prince Olivas MANUAL DIFF REQ NO Normal [facility] Comment on above: Performed By: #### S ELNIUM #### [facility] [address] [address] [address] Prince Olivas MCH (RBC) [Entitic mass] 31.9 pg Normal 26.7-34.0 [facility] Comment on above: Performed By: #### S ELNIUM #### [facility] [address] [place] [address] Dr. Prince Olivas MCHC (RBC) [Mass/Vol] 33.8 g/dL Normal 29.9-35.2 [facility] Comment on above: Performed By: #### S ELNIUM #### [facility] [address] [address] [address] Prince Olivas MCV (RBC) [Entitic vol] 94.5 fL Normal 81.0-99.0 [facility] Comment on above: Performed By: #### S ELNIUM #### [facility] [address] [address] [address] Prince Olivas MONO # 0.5 103/ul Normal 0.3-0.8 [facility] Comment on above: Performed By: #### S ELNIUM #### [facility] [address] [address] [address] Prince Olivas Monocytes/100 WBC (Bld) 5.2 % Normal 1.7-12.0 [facility] Comment on above: Performed By: #### S ELNIUM #### [facility] [address] [address] [address] Prince Olivas NEUT # 5.8 103/ul Normal 1.4-6.5 [facility] Comment on above: Performed By: #### S ELNIUM #### [facility] [address] [address] [address] Prince Olivas Neutrophils/100 WBC (Bld) 62.2 % Normal 43.0-75.0 [facility] Comment on above: Performed By: #### S ELNIUM #### [facility] [address] [address] [address] Prince Olivas Platelet mean volume (Bld) [Entitic vol] 11.1 fL Normal 9.5-13.5 [facility] Comment on above: Performed By: #### S ELNIUM #### [facility] [address] [place] [address] Dr. Prince Olivas PLT 218 103/ul Normal 150-450 [facility] Comment on above: Performed By: #### S ELNIUM #### [facility] [address] [place] [address] Dr. Prince Olivas RBC 4.95 106/ul Normal 4.20-5.40 [facility] Comment on above: Performed By: #### S ELNIUM #### [facility] [address] [place] [address] Dr. Prince Olivas WBC 9.3 103/ul Normal 4.0-11.0 [facility] Comment on above: Performed By: #### S ELNIUM #### [facility] [address] [place] [address] Dr. Prince Olivas PROF CHEM 8 (BAS METB)on Anion gap [Moles/Vol] 14.8 mmol/L Normal [facility] Comment on above: Performed By: #### C OPPER #### [facility] [address] [place] [address] Dr. Prince Olivas Calcium [Mass/Vol] 9.3 mg/dL Normal 8.5-10.1 [facility] Comment on above: Performed By: #### C OPPER #### [facility] [address] [place] [address] Dr. Prince Olivas Chloride [Moles/Vol] 105 mmol/L Normal 98-107 [facility] Comment on above: Performed By: #### C OPPER #### [facility] [address] [address] [address] Prince Olivas CO2 [Moles/Vol] 23.7 mmol/L Normal 21.0-32.0 [facility] Comment on above: Performed By: #### C OPPER #### [facility] [address] [place] [address] Dr. Prince Olivas Creatinine [Mass/Vol] 0.95 mg/dL Normal 0.55-1.02 [facility] Comment on above: Performed By: #### C OPPER #### [facility] [address] [place] [address] Dr. Prince Olivas EGFR-AF NORWEGIAN >60 Normal >=60 [facility] Comment on above: Performed By: #### C OPPER #### [facility] [address] [place] [address] Dr. Prince Olivas EGFR-NON AF NORWEGIAN >60 Normal >=60 [facility] Comment on above: Performed By: #### C OPPER #### [facility] [address] [place] [address] Dr. Prince Olivas Glucose [Mass/Vol] 103 mg/dL Normal 74-106 [facility] Comment on above: Performed By: #### C OPPER #### [facility] [address] [place] [address] Dr. Prince Olivas Potassium [Moles/Vol] 3.5 mmol/L Normal 3.5-5.1 [facility] Comment on above: Performed By: #### C OPPER #### [facility] [address] [place] [address] Dr. Prince Olivas Sodium [Moles/Vol] 140 mmol/L Normal 136-145 [facility] Comment on above: Performed By: #### C OPPER #### [facility] [address] [place] [address] Dr. Prince Olivas Urea nitrogen [Mass/Vol] 7.0 mg/dL Normal 7.0-18.0 [facility] Comment on above: Performed By: #### C OPPER #### [facility] [address] [address] [address] Prince Olivas Urea nitrogen/Creatinine [Mass ratio] 7.4 mg/mg Normal [facility] Comment on above: Performed By: #### C OPPER #### [facility] [address] [place], [place] [address] Dr. Prince Olivas TROPONIN, HIGH SENSITIVITYon 11-09-2021 HSTROP 4.3 pg/mL Normal 4.0-51.3 [facility] Comment on above: Result Comment: CUT- OFF POINTS HAVE BEEN ESTABLISHED BASED ON THE FOURTH UNIVERSAL DEFINITIONS OF MYOCARDIAL INFARCTION. THE UPPER REFERENCE LIMIT (URL) OF TROPONIN, DEFINED THE 99TH PERCENTILE OF cTnI DISTRIBUTION IN A REFERENCE POPULATION, HAS BEEN CONFIRMED THE DECISION THRESHOLD FOR TX DIAGNOSIS. Performed By: #### C OPPER #### [facility] [address] [address] [address] Prince Olivas XR CHEST 1 Von [...] BELEN REGAN Date: 2021-11-09 17:05 Normal [facility] CARDIAC SIMA ADMITon 022 CK [Catalytic activity/Vol] 62 U/L Normal 26-192 [facility] Comment on above: Performed By: #### M MA2 #### [facility] [address] [address] [address] Prince Olivas CK.MB [Mass/Vol] 0.37 ng/mL Normal <=3.60 [facility] Comment on above: Performed By: #### M MA2 #### [facility] [address] [address] [address] Prince Olivas HSTROP 3.5 pg/mL Critically low 4.0-51.3 [facility] Comment on above: Result Comment: CUT- OFF POINTS HAVE BEEN ESTABLISHED BASED ON THE FOURTH UNIVERSAL DEFINITIONS OF MYOCARDIAL INFARCTION. THE UPPER REFERENCE LIMIT (URL) OF TROPONIN, DEFINED THE 99TH PERCENTILE OF cTnI DISTRIBUTION IN A REFERENCE POPULATION, HAS BEEN CONFIRMED THE DECISION THRESHOLD FOR TX DIAGNOSIS. Performed By: #### M MA2 #### [facility] [address] [place] [address] Dr. Prince Olivas JENNIFER 40 ng/mL Normal 9-82 [facility] Comment on above: Performed By: #### M MA2 #### [facility] [address] [place] [address] Dr. Prince Olivas CBC AUTO DIFFon 10-04-2021 BASO # 0.0 103/ul Normal 0.0-0.1 [facility] Comment on above: Performed By: #### C BC #### [facility] [address] [place] [address] Dr. Prince Olivas Basophils/100 WBC (Bld) 0.6 % Normal 0.2-2.0 [facility] Comment on above: Performed By: #### C BC #### [facility] [address] [place] [address] Dr. Prince Olivas EO # 0.3 103/ul Normal 0.0-0.7 [facility] Comment on above: Performed By: #### C BC #### [facility] [address] [place] [address] Dr. Prince Olivas Eosinophils/100 WBC (Bld) 3.7 % Normal 0.9-7.0 [facility] Comment on above: Performed By: #### C BC #### [facility] [address] [place] [address] Dr. Prince Olivas Erythrocyte distribution width (RBC) [Ratio] 13.4 % Normal 11.0-15.0 [facility] Comment on above: Performed By: #### C BC #### [facility] [address] [place] [address] Dr. Prince Olivas Hematocrit (Bld) [Volume fraction] 42.8 % Normal 36.0-48.0 [facility] Comment on above: Performed By: #### C BC #### [facility] [address] [place] [address] Dr. Prince Olivas Hemoglobin (Bld) [Mass/Vol] 14.1 g/dL Normal 12.0-16.0 [facility] Comment on above: Performed By: #### C BC #### [facility] [address] [place] [address] Dr. Prince Olivas IG # 0.02 10e3/ul Normal 0.00-0.03 [facility] Comment on above: Performed By: #### C BC #### [facility] [address] [place] [address] Dr. Prince Olivas IG % 0.3 % Normal 0.0-0.5 [facility] Comment on above: Performed By: #### C BC #### [facility] [address] [place] [address] Dr. Prince Olivas LYMPH # 2.0 103/ul Normal 1.2-3.8 [facility] Comment on above: Performed By: #### C BC #### [facility] [address] [place] [address] Dr. Prince Olivas Lymphocytes/100 WBC (Bld) 27.6 % Normal 20.5-60.0 [facility] Comment on above: Performed By: #### C BC #### [facility] [address] [place] [address] Dr. Prince Olivas MANUAL DIFF REQ NO Normal [facility] Comment on above: Performed By: #### C BC #### [facility] [address] [place] [address] Dr. Prince Olivas MCH (RBC) [Entitic mass] 31.4 pg Normal 26.7-34.0 [facility] Comment on above: Performed By: #### C BC #### [facility] [address] [place] [address] Dr. Prince Olivas MCHC (RBC) [Mass/Vol] 32.9 g/dL Normal 29.9-35.2 [facility] Comment on above: Performed By: #### C BC #### [facility] [address] [address] [address] Prince Olivas MCV (RBC) [Entitic vol] 95.3 fL Normal 81.0-99.0 [facility] Comment on above: Performed By: #### C BC #### [facility] [address] [address] [address] Prince Olivas MONO # 0.6 103/ul Normal 0.3-0.8 [facility] Comment on above: Performed By: #### C BC #### [facility] [address] [address] [address] Prince Olivas Monocytes/100 WBC (Bld) 8.2 % Normal 1.7-12.0 [facility] Comment on above: Performed By: #### C BC #### [facility] [address] [place] [address] Dr. Prince Olivas NEUT # 4.2 103/ul Normal 1.4-6.5 [facility] Comment on above: Performed By: #### C BC #### [facility] [address] [place] [address] Dr. Prince Olivas Neutrophils/100 WBC (Bld) 59.6 % Normal 43.0-75.0 [facility] Comment on above: Performed By: #### C BC #### [facility] [address] [place] [address] Dr. Prince Olivas Platelet mean volume (Bld) [Entitic vol] 11.1 fL Normal 9.5-13.5 [facility] Comment on above: Performed By: #### C BC #### [facility] [address] [place] [address] Dr. Prince Olivas PLT 194 103/ul Normal 150-450 [facility] Comment on above: Performed By: #### C BC #### [facility] [address] [place] [address] Dr. Prince Olivas RBC 4.49 106/ul Normal 4.20-5.40 [facility] Comment on above: Performed By: #### C BC #### [facility] [address] [place] [address] Dr. Prince Olivas WBC 7.1 103/ul Normal 4.0-11.0 [facility] Comment on above: Performed By: #### C BC #### [facility] [address] [address] [address] Prince Olivas PROF 14(COMP METB)on 022 Albumin [Mass/Vol] 3.9 g/dL Normal 3.4-5.0 [facility] Comment on above: Performed By: #### Marine CAMPBELL2 #### [facility] [address] [place] [address] Dr. Prince Olivas Albumin/Globulin [Mass ratio] 1.4 {ratio} Normal [facility] Comment on above: Performed By: #### Marine CAMPBELL2 #### [facility] [address] [place] [address] Dr. Prince Olivas ALP [Catalytic activity/Vol] 71 U/L Normal 46-116 [facility] Comment on above: Performed By: #### Marine CAMPBELL2 #### [facility] [address] [place] [address] Dr. Prince Olivas ALT [Catalytic activity/Vol] 18 U/L Normal 14-59 [facility] Comment on above: Performed By: #### Marine CAMPBELL2 #### [facility] [address] [place] [address] Dr. Prince Olivas Anion gap [Moles/Vol] 10.1 mmol/L Normal [facility] Comment on above: Performed By: #### Marine CAMPBELL2 #### [facility] [address] [address] [address] Prince Olivas AST [Catalytic activity/Vol] 11 U/L Critically low 15-37 [facility] Comment on above: Performed By: #### Marine CAMPBELL2 #### [facility] [address] [place] [address] Dr. Prince Olivas Bilirubin [Mass/Vol] 0.4 mg/dL Normal 0.2-1.0 [facility] Comment on above: Performed By: #### Marine CAMPBELL2 #### [facility] [address] [place] [address] Dr. Prince Olivas Calcium [Mass/Vol] 8.8 mg/dL Normal 8.5-10.1 [facility] Comment on above: Performed By: #### M MA2 #### [facility] [address] [place] [address] Dr. Prince Olivas Chloride [Moles/Vol] 105 mmol/L Normal 98-107 [facility] Comment on above: Performed By: #### Marine MA2 #### [facility] [address] [place] [address] Dr. Prince Olivas CO2 [Moles/Vol] 27.0 mmol/L Normal 21.0-32.0 [facility] Comment on above: Performed By: #### Marine MA2 #### [facility] [address] [place] [address] Dr. Prince Olivas Creatinine [Mass/Vol] 0.67 mg/dL Normal 0.55-1.02 [facility] [facility] Comment on above: Performed By: #### Marine MA2 #### [facility] [address] [place] [address] Dr. Prince Olivas EGFR-AF NORWEGIAN >60 Normal >=60 [facility] Comment on above: Performed By: #### Marine MA2 #### [facility] [address] [place] [address] Dr. Prince Olivas EGFR-NON AF NORWEGIAN >60 Normal >=60 [facility] Comment on above: Performed By: #### Marine MA2 #### [facility] [address] [place] [address] Dr. Prince Olivas Globulin (S) [Mass/Vol] 2.7 g/dL Normal [facility] Comment on above: Performed By: #### M MA2 #### [facility] [address] [place] [address] Dr. Prince Olivas Glucose [Mass/Vol] 105 mg/dL Normal 74-106 [facility] Comment on above: Performed By: #### M MA2 #### [facility] [address] [place] [address] Dr. Prince Olivas Potassium [Moles/Vol] 4.1 mmol/L Normal 3.5-5.1 [facility] Comment on above: Performed By: #### M MA2 #### [facility] [address] [address] [address] Prince Olivas Protein [Mass/Vol] 6.6 g/dL Normal 6.4-8.2 [facility] Comment on above: Performed By: #### M MA2 #### [facility] [address] [address] [address] Prince Olivas Sodium [Moles/Vol] 138 mmol/L Normal 136-145 [facility] Comment on above: Performed By: #### M MA2 #### [facility] [address] [address] [address] Prince Olivas Urea nitrogen [Mass/Vol] 7.0 mg/dL Normal 7.0-18.0 [facility] Comment on above: Performed By: #### M MA2 #### [facility] [address] [address] [address] Prince Olivas Urea nitrogen/Creatinine [Mass ratio] 10.4 mg/mg Normal [facility] Comment on above: Performed By: #### M MA2 #### [facility] [address] [address] [address] Prince Olivas XR CHEST 1 Von [...] BARBI HENRY Date: 2021-10-04 10:58 Normal [facility] PROLACTINon 09-26-2021 Prolactin 149.0 ng/mL Critically high 4.8-23.3 [facility] Comment on above: Performed By: #### L IPID, CMP #### [facility] [address] [address] [address] Prince Olivas LIPID PROFILEon 09-25-2021 CHOL-HDL RATIO NORM SEE BELOW Normal [facility] Comment on above: Result Comment: 3.3 - 4.4 LOW RISK 4.4 - 7.1 AVERAGE RISK 7.1 - 11.0 MODERATE RISK >11.0 HIGH RISK Performed By: #### L IPID, CMP #### [facility] [address] [address] [address] Prince Olivas Cholesterol [Mass/Vol] 205 mg/dL Critically high <=200 [facility] Comment on above: Performed By: #### L IPID, CMP #### [facility] [address] [address] [address] Prince Olivas Cholesterol in HDL [Mass/Vol] 46 mg/dL Normal 40-60 [facility] Comment on above: Performed By: #### L IPID, CMP #### [facility] [address] [place] [address] Dr. Prince Olivas Cholesterol in LDL [Mass/Vol] 148.6 mg/dL Normal [facility] Comment on above: Performed By: #### L IPID, CMP #### [facility] [address] [place] [address] Dr. Prince Olivas Cholesterol.total/C holesterol in HDL [Mass ratio] 4.5 {ratio} Normal [facility] Comment on above: Performed By: #### L IPID, CMP #### [facility] [address] [place] [address] Dr. Prince Olivas HDL NORMAL > or = 60 mg/dl - LO W CARDIOVASCULAR RISK <40 mg/dl - HIGH CARDIOVASCULAR RISK Normal [facility] Comment on above: Performed By: #### L IPID, CMP #### [facility] [address] [place] [address] Dr. Prince Olivas LDL CALC NORMAL SEE BELOW Normal [facility] Comment on above: Result Comment: <100 mg/dl OPTIMAL 100 - 129 mg/dl NEAR OR ABOVE OPTIMAL 130 - 159 mg/dl BORDERLINE HIGH 160 - 189 mg/dl HIGH >190 mg/dl VERY HIGH Performed By: #### L IPID, CMP #### [facility] [address] [address] [address] Prince Olivas Triglyceride [Mass/Vol] 52 mg/dL Normal <=150 [facility] Comment on above: Performed By: #### L IPID, CMP #### [facility] [address] [address] [address] Prince Olivas VLDL CALC 10.4 mg/dL Normal [facility] Comment on above: Performed By: #### L IPID, CMP #### [facility] [address] [address] [address] Prince Olivas PROF 14(COMP METB)on 022 Albumin [Mass/Vol] 3.7 g/dL Normal 3.4-5.0 [facility] Comment on above: Performed By: #### L IPID, CMP #### [facility] [address] [place] [address] Dr. Prince Olivas Albumin/Globulin [Mass ratio] 1.5 {ratio} Normal [facility] Comment on above: Performed By: #### L IPID, CMP #### [facility] [address] [place] [address] Dr. Prince Olivas ALP [Catalytic activity/Vol] 66 U/L Normal 46-116 [facility] Comment on above: Performed By: #### L IPID, CMP #### [facility] [address] [place] [address] Dr. Prince Olivas ALT [Catalytic activity/Vol] 14 U/L Normal 14-59 [facility] Comment on above: Performed By: #### L IPID, CMP #### [facility] [address] [place] [address] Dr. Prince Olivas Anion gap [Moles/Vol] 13.8 mmol/L Normal [facility] Comment on above: Performed By: #### L IPID, CMP #### [facility] [address] [place] [address] Dr. Prince Olivas AST [Catalytic activity/Vol] 10 U/L Critically low 15-37 [facility] Comment on above: Performed By: #### L IPID, CMP #### [facility] [address] [place] [address] Dr. Prince Olivas Bilirubin [Mass/Vol] 0.3 mg/dL Normal 0.2-1.0 [facility] Comment on above: Performed By: #### L IPID, CMP #### [facility] [address] [place] [address] Dr. Prince Olivas Calcium [Mass/Vol] 8.9 mg/dL Normal 8.5-10.1 [facility] Comment on above: Performed By: #### L IPID, CMP #### [facility] [address] [place] [address] Dr. Prince Olivas Chloride [Moles/Vol] 106 mmol/L Normal 98-107 [facility] Comment on above: Performed By: #### L IPID, CMP #### [facility] [address] [place] [address] Dr. Prince Olivas CO2 [Moles/Vol] 24.0 mmol/L Normal 21.0-32.0 [facility] Comment on above: Performed By: #### L IPID, CMP #### [facility] [address] [place] [address] Dr. Prince Olivas Creatinine [Mass/Vol] 1.05 mg/dL Critically high 0.55-1.02 [facility] Comment on above: Performed By: #### L IPID, CMP #### [facility] [address] [place] [address] Dr. Prince Olivas EGFR-AF NORWEGIAN >60 Normal >=60 [facility] Comment on above: Performed By: #### L IPID, CMP #### [facility] [address] [place] [address] Dr. Prince Olivas EGFR-NON AF NORWEGIAN 55 mL/min/1.73m2 Critically low >=60 [facility] Comment on above: Performed By: #### L IPID, CMP #### [facility] [address] [place] [address] Dr. Prince Olivas Globulin (S) [Mass/Vol] 2.5 g/dL Normal [facility] Comment on above: Performed By: #### L IPID, CMP #### [facility] [address] [place] [address] Dr. Prince Olivas Glucose [Mass/Vol] 107 mg/dL Critically high 74-106 [facility] Comment on above: Performed By: #### L IPID, CMP #### [facility] [address] [address] [address] Prince Olivas Potassium [Moles/Vol] 3.8 mmol/L Normal 3.5-5.1 [facility] Comment on above: Performed By: #### L IPID, CMP #### [facility] [address] [address] [address] Prince Olivas Protein [Mass/Vol] 6.2 g/dL Critically low 6.4-8.2 [facility] Comment on above: Performed By: #### L IPID, CMP #### [facility] [address] [place] [address] Dr. Prince Olivas Sodium [Moles/Vol] 140 mmol/L Normal 136-145 [facility] Comment on above: Performed By: #### L IPID, CMP #### [facility] [address] [place] [address] Dr. Prince Olivas Urea nitrogen [Mass/Vol] 10.0 mg/dL Normal 7.0-18.0 [facility] Comment on above: Performed By: #### L IPID, CMP #### [facility] [address] [place] [address] Dr. Prince Olivas Urea nitrogen/Creatinine [Mass ratio] 9.5 mg/mg Normal [facility] Comment on above: Performed By: #### L IPID, CMP #### [facility] [address] [place] [address] Dr. Prince Olivas Vital Signs Date Time Vital Sign Value Performing Clinician Facility 03-23-2024 13:10-0500 Blood Pressure Location Sandoval Rae [facility] 03-23-2024 13:10-0500 Diastolic blood pressure 70 mm[Hg] Sandoval Rae [facility] 03-23-2024 13:10-0500 Heart rate 96 /min Mohamad Mouchli [facility] 03-23-2024 13:10-0500 Systolic blood pressure 102 mm[Hg] Mohamad Mouchli [facility] 02-25-2024 11:16-0500 Diastolic blood pressure 64 mm[Hg] Mohamad Mouchli [facility] 02-25-2024 11:16-0500 Heart rate 71 /min Mohamad Mouchli [facility] 02-25-2024 11:16-0500 Mean blood pressure 80 mm[Hg] Mohamad Mouchli [facility] 02-25-2024 11:16-0500 Respiratory rate 10 /min Mohamad Mouchli [facility] 02-25-2024 11:16-0500 SaO2% (BldA) [Mass fraction] 96 % Mohamad Mouchli [facility] 02-25-2024 11:16-0500 Systolic blood pressure 113 mm[Hg] Mohamad Mouchli [facility] 02-25-2024 11:05-0500 Diastolic blood pressure 75 mm[Hg] Mohamad Mouchli [facility] 02-25-2024 11:05-0500 Heart rate 73 /min Mohamad Mouchli [facility] 02-25-2024 11:05-0500 Mean blood pressure 86 mm[Hg] Mohamad Mouchli [facility] 02-25-2024 11:05-0500 Respiratory rate 18 /min Mohamad Mouchli [facility] 02-25-2024 11:05-0500 SaO2% (BldA) [Mass fraction] 95 % Mohamad Mouchli [facility] 02-25-2024 11:05-0500 Systolic blood pressure 107 mm[Hg] Mohamad Mouchli [facility] 02-25-2024 10:51-0500 Body temperature 98.24 [degF] Mohamad Mouchli [facility] 02-25-2024 10:51-0500 Diastolic blood pressure 92 mm[Hg] Mohamad Mouchli [facility] 02-25-2024 10:51-0500 Heart rate 81 /min Mohamad Mouchli [facility] 02-25-2024 10:51-0500 Mean blood pressure 96 mm[Hg] Mohamad Mouchli [facility] 02-25-2024 10:51-0500 Respiratory rate 18 /min Mohamad Mouchli [facility] 02-25-2024 10:51-0500 SaO2% (BldA) [Mass fraction] 97 % Mohamad Mouchli [facility] 02-25-2024 10:51-0500 Systolic blood pressure 103 mm[Hg] Mohamad Mouchli [facility] 02-25-2024 10:45-0500 Respiratory rate 15 /min Mohamad Mouchli [facility] 02-25-2024 10:40-0500 Respiratory rate 16 /min Mohamad Mouchli [facility] 02-25-2024 10:35-0500 Respiratory rate 17 /min Mohamad Mouchli [facility] 02-25-2024 09:14-0500 Blood Pressure Location Mohamad Mouchli [facility] 02-25-2024 09:14-0500 Body temperature 97.88 [degF] Mohamad Mouchli [facility] 02-21-2024 08:41-0500 Blood Pressure Location Mohamad Mouchli [facility] 02-21-2024 08:41-0500 Diastolic blood pressure 83 mm[Hg] Mohamad Mouchli [facility] 02-21-2024 08:41-0500 Heart rate 80 /min Mohamad Mouchli [facility] 02-21-2024 08:41-0500 Systolic blood pressure 134 mm[Hg] Mohamad Mouchli [facility] 01-16-2024 10:08-0400 Blood Pressure Location Mohamad Mouchli [facility] 01-16-2024 10:08-0400 Diastolic blood pressure 76 mm[Hg] Mohamad Mouchli [facility] 01-16-2024 10:08-0400 Heart rate 73 /min Mohamad Mouchli [facility] 01-16-2024 10:08-0400 Systolic blood pressure 116 mm[Hg] Mohamad Mouchli [facility] 09-24-2023 15:00-0400 Diastolic blood pressure 78 mm[Hg] José Luis Resendiz [facility] 09-24-2023 15:00-0400 Heart rate 66 /min José Luis Resendiz [facility] 09-24-2023 15:00-0400 Mean blood pressure 95 mm[Hg] José Luis Astrid [facility] 09-24-2023 15:00-0400 Respiratory rate 16 /min José Luis Astrid [facility] 09-24-2023 15:00-0400 Systolic blood pressure 128 mm[Hg] José Luis Astrid [facility] 09-24-2023 14:00-0400 Diastolic blood pressure 69 mm[Hg] José Luis Astrid [facility] 09-24-2023 14:00-0400 Heart rate 75 /min José Luis Astrid [facility] 09-24-2023 14:00-0400 Mean blood pressure 88 mm[Hg] José Luis Astrid [facility] 09-24-2023 14:00-0400 SaO2% (BldA) [Mass fraction] 95 % José Luis Astrid [facility] 09-24-2023 14:00-0400 Systolic blood pressure 126 mm[Hg] José Luis Astrid [facility] 09-24-2023 12:58-0400 Body temperature 98.06 [degF] José Luis Astrid [facility] 09-24-2023 12:58-0400 Diastolic blood pressure 82 mm[Hg] José Luis Astrid [facility] 09-24-2023 12:58-0400 Heart rate 89 /min José Luis Astrid [facility] 09-24-2023 12:58-0400 Respiratory rate 18 /min José Luis Astrid [facility] 09-24-2023 12:58-0400 SaO2% (BldA) [Mass fraction] 96 % José Luis Resendiz [facility] 09-24-2023 12:58-0400 Systolic blood pressure 125 mm[Hg] José Luis Resendiz [facility] 04-04-2022 15:50-0500 Diastolic blood pressure 70 mm[Hg] Tiffani Morales MD Work Phone: [facility] 04-04-2022 15:50-0500 Heart rate 73 /min Tiffani Morales MD Work Phone: [facility] 04-04-2022 15:50-0500 Respiratory rate 16 /min Tiffani Morales MD Work Phone: [facility] 04-04-2022 15:50-0500 SaO2% (BldA) [Mass fraction] 97 % Tiffani Morales MD Work Phone: [facility] 04-04-2022 15:50-0500 Systolic blood pressure 117 mm[Hg] Tiffani Morales MD Work Phone: [facility] 04-04-2022 15:26-0500 Body temperature 97.2 [degF] Tiffani Morales MD Work Phone: [facility] 04-04-2022 12:51-0500 Body height 172.7 cm Tiffani Morales MD Work Phone: [facility] 04-04-2022 12:51-0500 Body weight 45.81 kg Tiffani Morales MD Work Phone: [facility] 01-01-2022 16:50-0400 Diastolic blood pressure 69 mm[Hg] Tiffani Morales MD Work Phone: [facility] 01-01-2022 16:50-0400 Heart rate 69 /min Tiffani Morales MD Work Phone: [facility] 01-01-2022 16:50-0400 Respiratory rate 16 /min Tiffani Morales MD Work Phone: [facility] 01-01-2022 16:50-0400 SaO2% (BldA) [Mass fraction] 95 % Tiffani Morales MD Work Phone: [facility] 01-01-2022 16:50-0400 Systolic blood pressure 110 mm[Hg] Tiffani Morales MD Work Phone: [facility] 01-01-2022 16:33-0400 Body temperature 98.1 [degF] Tiffani Morales MD Work Phone: [facility] 01-01-2022 15:39-0400 Body height 172.7 cm Tiffani Morales MD Work Phone: [facility] 01-01-2022 15:39-0400 Body weight 45.81 kg Tiffani Morales MD Work Phone: [facility] 06-20-2021 13:37-0400 Body height 174 cm Robb Evans MD Work Phone: [facility] 06-20-2021 13:37-0400 Body mass index (BMI) [Ratio] 17.98 kg/m2 Robb Evans MD Work Phone: [facility] 06-20-2021 13:37-0400 Body weight 54.43 kg Robb Evans MD Work Phone: [facility] 06-20-2021 13:37-0400 Diastolic blood pressure 69 mm[Hg] Robb Evans MD Work Phone: [facility] 06-20-2021 13:37-0400 Heart rate 77 /min Robb Evans MD Work Phone: [facility] 06-20-2021 13:37-0400 Respiratory rate 16 /min Robb Evans MD Work Phone: [facility] 06-20-2021 13:37-0400 SaO2% (BldA) [Mass fraction] 95 % Robb Evans MD Work Phone: [facility] 06-20-2021 13:37-0400 Systolic blood pressure 102 mm[Hg] Robb Evans MD Work Phone: [facility] 07-18-2020 14:10-0400 Body height 174 cm Robb Evans MD Work Phone: [facility] 07-18-2020 14:10-0400 Body mass index (BMI) [Ratio] 17.38 kg/m2 Robb Evans MD Work Phone: [facility] 07-18-2020 14:10-0400 Body weight 52.62 kg Robb Evans MD Work Phone: [facility] 07-18-2020 14:10-0400 Diastolic blood pressure 68 mm[Hg] Robb Evans MD Work Phone: [facility] 07-18-2020 14:10-0400 Heart rate 84 /min Robb Evans MD Work Phone: [facility] 07-18-2020 14:10-0400 Respiratory rate 16 /min Robb Evans MD Work Phone: [facility] 07-18-2020 14:10-0400 SaO2% (BldA) [Mass fraction] 96 % Robb Evans MD Work Phone: [facility] 07-18-2020 14:10-0400 Systolic blood pressure 94 mm[Hg] Robb Evans MD Work Phone: [facility] Encounters Encounter Date Encounter Type Care Provider Facility Start: 05-12-2024 End: 05-12-2024 ambulatory Lala L Carolee Facility:[facility] Shirley farfan Start: 05-11-2024 ambulatory Lala L Carolee Facility: CD:[id number] Start: 03-23-2024 End: 03-23-2024 ambulatory Sandoval Rae Facility:[facility] Start: 03-23-2024 End: 03-23-2024 Patient encounter procedure Sandoval Rae [facility] Start: 03-15-2024 End: 03-15-2024 ambulatory Eligioulices Wayneeck Facility:[facility] Start: 02-25-2024 End: 02-25-2024 ambulatory Sandoval Rae [place] Start: 02-25-2024 End: 02-25-2024 Patient encounter procedure Sandoval Rae [facility] Start: 02-21-2024 End: 02-21-2024 [facility] Start: 02-21-2024 End: 02-21-2024 Patient encounter procedure Sandoval Rae [facility] Start: 02-18-2024 End: 02-18-2024 [facility]ulatory [facility] Start: 02-05-2024 End: 02-05-2024 ambulatory Sandoval Rae Facility:[facility] Start: 02-05-2024 End: 02-05-2024 Patient encounter procedure Sandoval Rae [facility] Start: 01-27-2024 End: 01-27-2024 ambulatory Sandoval Rae [place] Start: 01-27-2024 End: 01-27-2024 Patient encounter procedure Sandoval Rae [facility] Start: 01-16-2024 End: 01-16-2024 ambulatory Mohemekad A. Butch Facility:[facility] Start: 01-16-2024 End: 01-16-2024 Patient encounter procedure Mohamad A. Modestinee [facility] Start: 11-26-2023 End: 11-26-2023 ambulatory Lala L Carolee Facility:[facility] [place] [facility] Start: 10-03-2023 End: 10-03-2023 ambulatory Lala L Carolee Facility:[facility] [place] [facility] Start: 09-27-2023 ambulatory CHANCE ZACH Facility:[facility] Start: 09-24-2023 End: 09-24-2023 Emergency department patient visit José Luis Resendiz [facility] Start: 05-08-2022 Telephone encounter Tiffani valencia MD Work Phone: Gastroenterology Comment on above: Patient Question Start: 05-07-2022 End: 05-08-2022 ambulatory IRINA SEGURA Facility:[facility] Start: 04-24-2022 End: 04-24-2022 ambulatory CRISTINA ALEE PRECIADOBoyd Facility:[facility] Start: 04-24-2022 End: 04-24-2022 Nutrition therapy Tiffani Morales MD Work Phone: Gastroenterology Comment on above: Severe malnutrition (HCC) (Primary Dx) Start: 04-24-2022 End: 04-24-2022 Telemedicine consultation with patient Tiffani Morales MD Work Phone: [facility] Start: 04-20-2022 Refill Robb Evans MD Work Phone: [facility] Start: 04-12-2022 Refill Saúl SHORT [facility] Comment on above: Generalized anxiety disorder Start: 04-05-2022 Telephone encounter Tiffani valencia MD Work Phone: Gastroenterology Comment on above: Refill Request Start: 04-04-2022 End: 04-04-2022 ambulatory FREDERICK G ANASTACIO Facility:[facility] Start: 04-04-2022 End: 04-04-2022 Subsequent hospital visit by physician Tiffani Morales MD Work Phone: Gastroenterology Comment on above: 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] Start: 03-31-2022 End: 04-01-[address] DOCTOR BERMEO Facility:[facility] Start: 03-28-2022 End: 03-29-[address] BRITNI SIMPSON Facility:[facility] Start: 03-28-2022 Telephone encounter Eduardo Harrington RNgas singer Comment on above: Appointment Confirmsrini tironald Start: 03-20-2022 Refill Saúl Kaur DEJA [facility] Start: 03-14-2022 Refill Anastasiya Davidi PA-C Work Phone: Gastroenterology Comment on above: Refill Request Start: 03-09-2022 Refill Gokul Maurilio CAMPBELL [facility] Comment on above: Generalized anxiety disorder Start: 03-01-2022 End: 03-01-2022 [facility] Start: 03-01-2022 End: 03-01-2022 Nutrition therapy Tiffani Morales MD Work Phone: Gastroenterology Comment on above: Severe protein-calor ie malnutrition (HCC) (Primary Dx); 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); Weight loss; Severe malnutrition (HCC) Start: 03-01-2022 End: 03-01-2022 Telemedicine consultation with patient Tiffani Morales MD Work Phone: [facility] Start: 02-07-2022 ambulatory Yan wood MD Work Phone: Gastroenterology Start: 02-07-2022 Patient encounter procedure Yan Garcia Jr., MD Work Phone: [facility] Start: 02-07-2022 Refill Anastasiya Nolani PA-C Work Phone: Gastroenterology Comment on above: Refill Request Start: 02-06-2022 End: 02-07-2022 [facility] Start: 02-05-2022 End: 02-05-2022 ambulatory CRISTINASrini [facility] Start: 01-29-2022 ambulatory Dolores oLpez RN [facility] Start: 01-29-2022 Patient encounter procedure Dolores Lopez RN [facility] Start: 01-29-2022 End: 01-29-2022 Subsequent hospital visit by physician Capsule Work Phone: Gastroenterology Comment on above: Arrived Start: 01-17-2022 ambulatory Roshni Milligan Alphonso Reyes ty:[facility] Start: 01-16-2022 Refill Gokul Maurilio [facility] Start: 01-05-2022 Telephone encounter [...] 01-01-2022 End: 01-01-2022 ambulatory KIRSTEN Milligan SJSrini Facility:[facility] Start: 01-01-2022 End: 01-01-2022 Subsequent hospital visit by physician Tiffani Morales MD Work Phone: Gastroenterology Comment on above: Nausea and vomiting, unspecified vomiting type [R11.2] Start: 12-25-2021 Telephone encounter Rima Gerard RNgas singer Comment on above: Appointment Start: 12-19-2021 End: 12-19-2021 ambulatory CRISTINA TATUMSOPHIE [facility] Start: 12-15-2021 End: 12-16-2021 ambulatory Anastasiya Mosqueda PA-C Work Phone: Gastroenterology Comment on above: Nausea and vomiting, unspecified vomiting type (Primary Dx); Left upper quadrant abdominal pain; Weight loss Start: 12-15-2021 End: 12-15-2021 Telemedicine consultation with patient Anastasiya Jaylin PA-C Work Phone: [facility] Start: 12-14-2021 End: 12-14-2021 ambulatory ANASTASIYA MOSQUEDA Facility:[facility] Start: 12-14-2021 End: 12-14-2021 Patient encounter procedure Anastasiya Mosqueda PA-C Work Phone: Gastroenterology Comment on above: APPOINTMENT CANCELLE D (Primary Dx) Start: 12-14-2021 End: 12-14-2021 Telemedicine consultation with patient Anastasiya Mosqueda PA-C Work Phone: [facility] Start: 12-13-2021 Telephone encounter Anastasiya kimbrough PA-C Work Phone: Gastroenterology Comment on above: Appointment Start: 12-11-2021 End: 12-11-2021 ambulatory PER DIEM PHYSICAL THERAPIST CRISTINA HOODMARYAMBoyd Facility:[facility] Start: 12-03-2021 End: 12-03-2021 Emergency department patient visit Vipin Pina [place] [place]: 11-14-2021 End: 11-14-2021 ambulatory PER DIEM PHYSICAL THERAPIST CRISTINA ERWINMARYAMBoyd Facility:[facility] Start: 11-09-2021 End: 11-09-2021 ambulatory PER DIEM PHYSICAL THERAPIST CRISTINA ERWINHOLZ Facility:[facility] Start: 10-04-2021 End: 10-04-2021 ambulatory PER DIEM PHYSICAL THERAPIST CRISTINA ERWINHOLZ Facility:[facility] Start: 10-03-2021 Refill Robb Evans MD Work Phone: [facility] Start: 09-27-2021 Documentation procedure Zuleyma Evans MD Work Phone: [facility] Start: 09-25-2021 End: 09-26-2021 ambulatory ROBB EVANS Facility:[facility] Start: 09-19-2021 End: 09-19-2021 [facility] Start: 09-19-2021 End: 09-19-2021 Office outpatient visit 25 minutes Robb Evans MD Work Phone: [facility] Comment on above: Bipolar 1 disorder, mixed, mild (HCC) (Primary Dx); Generalized anxiety disorder; Long-term use of high-risk medication Start: 09-15-2021 Refill Fartun Mack LPN [facility] Comment on above: Generalized anxiety disorder Start: 06-20-2021 End: 06-20-2021 ambulatory CRISTINA Saleh [facility] Start: 06-20-2021 End: 06-20-2021 Office outpatient visit 25 minutes Robb Evans MD Work Phone: [facility] Comment on above: Generalized anxiety disorder (Primary Dx); Bipolar 1 disorder, mixed, mild (HCC); Long-term use of high-risk medication; Post traumatic stress disorder (PTSD) Start: 04-03-2021 Refill Gokul Maurilio CAMPBELL [facility] Comment on above: Generalized anxiety disorder Start: 03-01-2021 End: 03-01-2021 Phys/qhp telephone evaluation 11-20 min Robb Evans MD Work Phone: [facility] Comment on above: Bipolar 1 disorder, mixed, mild (HCC) (Primary Dx); Generalized anxiety disorder; Long-term use of high-risk medication Start: 03-01-2021 End: 03-01-2021 [facility] Start: 01-31-2021 Refill Gokul Maurilio [facility] Comment on above: Generalized anxiety disorder Start: 12-29-2020 Refill Gokul Maurilio [facility] Comment on above: Generalized anxiety disorder Start: 08-22-2020 End: 08-22-2020 Phys/qhp telephone evaluation 11-20 min Robb Evans MD Work Phone: [facility] Comment on above: 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); Generalized anxiety disorder; Long-term use of high-risk medication Start: 07-18-2020 End: 07-18-2020 Office outpatient visit 25 minutes Robb Eavns MD Work Phone: [facility] Comment on above: Generalized [...] Screening for malign ant neoplasm of colon [facility] Start: 04-27-2022 End: 04-27-2022 Patient encounter procedure 04/27/2022 Office Visit Psychiatry Robb Evans MD [address] [place] [address] [facility] Start: 03-26-2022 End: 03-26-2022 Patient encounter procedure 03/26/2022 Office Visit Psychiatry Robb Evans MD [address] [place] [address] [facility] Start: 03-18-2022 DEPRESSION ASSESSMENT DEPRESSION ASS [facility] Start: 03-02-2022 End: 03-01-2023 25-hydroxyvitamin D3 [Mass/volume] in Serum or Plasma VITAMIN D 25 HYDROXY Lab Routine Severe protein-calorie malnutrition (HCC) Expected: 03/02/2022 (Approximate), Expires: 03/01/2023 [facility] Work Phone: Comment on above: Expected: 03/02/2022 (Approximate), Expires: 03/01/2023 Start: 03-02-2022 End: 03-01-2023 Alpha tocopherol [Mass/volume] in Serum or Plasma VITAMIN E/TOCOPHEROL Lab Routine Severe protein-calorie malnutrition (HCC) Expected: 03/02/2022 (Approximate), Expires: 03/01/2023 [facility] Work Phone: Comment on above: Expected: 03/02/2022 (Approximate), Expires: 03/01/2023 Start: 03-02-2022 End: 03-01-2023 C reactive protein [Mass/volume] in Serum or Plasma C-REACTIVE PROTEIN (CRP) Lab Routine Severe protein-calorie malnutrition (HCC) Expected: 03/02/2022 (Approximate), Expires: 03/01/2023 [facility] Work Phone: Comment on above: Expected: 03/02/2022 (Approximate), Expires: 03/01/2023 Start: 03-02-2022 End: 03-01-2023 CBC W Auto Differential panel - Blood CBC + DIFF Lab Routine Severe protein-calorie malnutrition (HCC) Expected: 03/02/2022 (Approximate), Expires: 03/01/2023 [facility] Work Phone: Comment on above: Expected: 03/02/2022 (Approximate), Expires: 03/01/2023 Start: 03-02-2022 End: 03-01-2023 Cobalamin (Vitamin B12) [Mass/volume] in Serum or Plasma VITAMIN B12 BLOOD Lab Routine Severe protein-calorie malnutrition (HCC) Expected: 03/02/2022 (Approximate), Expires: 03/01/2023 [facility] Work Phone: Comment on above: Expected: 03/02/2022 (Approximate), Expires: 03/01/2023 Start: 03-02-2022 End: 03-01-2023 Comprehensive metabolic 2000 panel - Serum or Plasma COMP METABOLIC PANEL Lab Routine Severe protein-calorie malnutrition (HCC) Expected: 03/02/2022 (Approximate), Expires: 03/01/2023 [facility] Work Phone: Comment on above: Expected: 03/02/2022 (Approximate), Expires: 03/01/2023 Start: 03-02-2022 End: 03-01-2023 COPPER BLOOD COPPER BLOOD Lab Routine Severe protein-calorie malnutrition (HCC) Expected: 03/02/2022 (Approximate), Expires: 03/01/2023 [facility] Work Phone: Comment on above: Expected: 03/02/2022 (Approximate), Expires: 03/01/2023 Start: 03-02-2022 End: 03-01-2023 FATTY ACIDS PROFILE, ESSENTIAL FATTY ACIDS PROFILE, ESSENTIAL Lab Routine Severe protein-calorie malnutrition (HCC) Expected: 03/02/2022 (Approximate), Expires: 03/01/2023 [facility] Work Phone: Comment on above: Expected: 03/02/2022 (Approximate), Expires: 03/01/2023 Start: 03-02-2022 End: 03-01-2023 Ferritin [Mass/volume] in Serum or Plasma FERRITIN BLD Lab Routine Severe protein-calorie malnutrition (HCC) Expected: 03/02/2022 (Approximate), Expires: 03/01/2023 [facility] Work Phone: Comment on above: Expected: 03/02/2022 (Approximate), Expires: 03/01/2023 Start: 03-02-2022 End: 03-01-2023 Iron and Iron binding capacity panel - Serum or Plasma IRON + TIBC Lab Routine Severe protein-calorie malnutrition (HCC) Expected: 03/02/2022 (Approximate), Expires: 03/01/2023 [facility] Work Phone: Comment on above: Expected: 03/02/2022 (Approximate), Expires: 03/01/2023 Start: 03-02-2022 End: 03-01-2023 Magnesium [Mass/volume] in Serum or Plasma MAGNESIUM BLD Lab Routine Severe protein-calorie malnutrition (HCC) Expected: 03/02/2022 (Approximate), Expires: 03/01/2023 [facility] Work Phone: Comment on above: Expected: 03/02/2022 (Approximate), Expires: 03/01/2023 Start: 03-02-2022 End: 03-01-2023 Methylmalonate [Moles/volume] in Serum or Plasma METHYLMALONIC ACID Lab Routine Severe protein-calorie malnutrition (HCC) Expected: 03/02/2022 (Approximate), Expires: 03/01/2023 [facility] Work Phone: Comment on above: Expected: 03/02/2022 (Approximate), Expires: 03/01/2023 Start: 03-02-2022 End: 03-01-2023 Phosphate [Mass/volume] in Serum or Plasma PHOSPHORUS INORGANIC Lab Routine Severe protein-calorie malnutrition (HCC) Expected: 03/02/2022 (Approximate), Expires: 03/01/2023 [facility] Work Phone: Comment on above: Expected: 03/02/2022 (Approximate), Expires: 03/01/2023 Start: 03-02-2022 End: 03-01-2023 PT panel - Platelet poor plasma by Coagulation assay PROTHROMBIN TIME/PT Lab Routine Severe protein-calorie malnutrition (HCC) Expected: 03/02/2022 (Approximate), Expires: 03/01/2023 [facility] Work Phone: Comment on above: Expected: 03/02/2022 (Approximate), Expires: 03/01/2023 Start: 03-02-2022 End: 03-01-2023 RBC FOLATE RBC FOLATE Lab Routine Severe protein-calorie malnutrition (HCC) Expected: 03/02/2022 (Approximate), Expires: 03/01/2023 [facility] Work Phone: Comment on above: Expected: 03/02/2022 (Approximate), Expires: 03/01/2023 Start: 03-02-2022 End: 03-01-2023 Retinol [Mass/volume] in Serum or Plasma VITAMIN A/RETINOL Lab Routine Severe protein-calorie malnutrition (HCC) Expected: 03/02/2022 (Approximate), Expires: 03/01/2023 [facility] Work Phone: Comment on above: Expected: 03/02/2022 (Approximate), Expires: 03/01/2023 Start: 03-02-2022 End: 03-01-2023 Selenium [Mass/volume] in Blood SELENIUM BLOOD Lab Routine Severe protein-calorie malnutrition (HCC) Expected: 03/02/2022 (Approximate), Expires: 03/01/2023 [facility] Work Phone: Comment on above: Expected: 03/02/2022 (Approximate), Expires: 03/01/2023 Start: 03-02-2022 End: 03-01-2023 Triglyceride [Mass/volume] in Serum or Plasma TRIGLYCERIDES BLD Lab Routine Severe protein-calorie malnutrition (HCC) Expected: 03/02/2022 (Approximate), Expires: 03/01/2023 [facility] Work Phone: Comment on above: Expected: 03/02/2022 (Approximate), Expires: 03/01/2023 Start: 03-02-2022 End: 03-01-2023 Zinc [Mass/volume] in Serum or Plasma ZINC BLD Lab Routine Severe protein-calorie malnutrition (HCC) Expected: 03/02/2022 (Approximate), Expires: 03/01/2023 [facility] Work Phone: Comment on above: Expected: 03/02/2022 (Approximate), Expires: 03/01/2023 Start: 12-19-2021 End: 12-19-2021 Patient encounter procedure 12/19/2021 Office Visit Robb Patton MD [address] [facility] [address] [place] [id number] [facility] Start: 11-16-2021 Influenza vaccination [facility] Start: 09-19-2021 End: 09-19-2021 Patient encounter procedure 09/19/2021 Office Visit Robb Patton MD [address] [facility] [address] [place] [phone] [facility] Start: 09-15-2021 End: 09-15-2021 Patient encounter procedure 09/15/2021 Office Visit Robb Patton MD [address] [facility] [address] [place] [phone] [facility] Start: 05-30-2021 End: 05-30-2021 Patient encounter procedure 05/30/2021 Office Visit Robb Patton MD [address] [facility] [address] [place] [phone] [facility] Start: 03-18-2021 DEPRESSION ASSESSMENT DEPRESSION ASS ESSMENT [facility] Start: 02-17-2021 End: 02-17-2021 Patient encounter procedure 02/17/2021 Office Visit Robb Patton MD [address] [facility] [address] [place] [phone] [facility] Start: 02-03-2021 End: 02-03-2021 Patient encounter procedure 02/03/2021 Office Visit Robb Patton MD [address] [place] [address] [facility] Start: 11-16-2020 Influenza vaccination [facility] Start: 10-28-2020 End: 10-28-2020 Patient encounter procedure 10/28/2020 Office Visit Psychiatry Robb Evans MD [address] [place] [address] [phone] [facility] Start: 2020 Administration of he rpes zoster vaccine Zoster Vaccines (1 of 2) [facility] Start: 2020 Screening for malign ant neoplasm of colon [facility] Start: 2020 SHINGRIX VACCINE (1 of 2) SHINGRIX VACCINE (1 of 2) [facility] Start: 08-22-2020 End: 08-22-2020 Telemedicine consultation with patient 08/22/2020 Telemedicine Psychiatry Robb Evans MD [address] [place] [address] [phone] [facility] Start: 10-07-2015 COLOGUARD (FIT-DNA) COLOGUARD (FIT-D NA) [facility] Start: 10-07-2015 Colonoscopy COLONOSCOPY [facility] Start: 10-07-2015 COLORECTAL CANCER SCREENING COLORECTAL CANCER SCREENING [facility] Start: 10-07-[address] COLONOGRAPHY [facility] Start: 10-07-2015 DIABETES SCREEN DIABETES SCREEN [facility] Start: 10-07-2015 FECAL OCCULT BLOOD FECAL OCCULT BLOO D [facility] Start: 10-07-2015 LIPID SCREEN LIPID SCREEN [facility] Start: 10-07-2015 SIGMOIDOSCOPY SIGMOIDOSCOPY [facility] Start: 01-02-2015 PAP TESTING PAP TESTING [facility] Start: 2010 Mammography MAMMOGRAM [facility] Start: 2010 Screening for malign ant neoplasm of breast Mammogram [facility] Start: 2010 Screening mammography Mammogram [facility] Start: 2000 HPV TESTING HPV TESTING [facility] Start: 1989 Urine microalbumin profile DTAP,TDAP,TD (1 - Tdap) [facility] Start: 1988 Hepatitis C screening Hepatitis C Sc reening [facility] Start: 1988 HIV SCREENING HIV SCREENING [facility] Start: 1986 COVID-19 Vaccine (1) COVID-19 Vaccin e (1) [facility] Start: 1985 HIV screening HIV Screening [facility] Start: 1982 COVID-19 Vaccine (1) COVID-19 Vaccin e (1) [facility] Start: 1976 PNEUMOCOCCAL (1 - PCV) PNEUMOCOCCAL (1 - PCV) [facility] Start: 1976 Pneumococcal Vaccine : Ped or At-Risk (1 - PCV) Pneumococcal Vaccine: Ped or At-Risk (1 - PCV) [facility] Start: 1976 Pneumococcal Vaccine : Ped or At-Risk (1 of 2 - PPSV23) Pneumococcal Vaccine: Ped or At-Risk (1 of 2 - PPSV23) [facility] Start: 1976 Pneumococcal Vaccine : Ped or At-Risk (1 of 4 - PCV13) Pneumococcal Vaccine: Ped or At-Risk (1 of 4 - PCV13) [facility] Start: 10-07-1975 COVID-19 Vaccine (1) COVID-19 Vaccin e (1) [facility] Start: 1973 History and physical examination, annual for health maintenance Wellness Visit [facility] Start: 04-08-1971 COVID-19 Vaccine (#1) COVID-19 Vacci ne (#1) [facility] Start: 1970 HEPATITIS B (1 of 3 - 3-dose series) HEPATITIS B (1 of 3 - 3-dose series) [facility] Start: 1970 Screening for malign ant neoplasm of cervix Pap Smear [facility] Start: 1970 Screening for malign ant neoplasm of colon [facility] Start: 1970 Screening mammography Mammogram [facility] Start: 1970 Tetanus vaccination Tetanus: Every 1 0yrs [facility] End: 09-19-2022 Comprehensive metabolic 2000 panel - Serum or Plasma Comprehensive Metabolic Panel Lab Routine Generalized anxiety disorder Long-term use of high-risk medication Bipolar 1 disorder, mixed, mild (HCC) 1 Occurrences starting 09/19/2021 until 09/19/2022 [facility] Comment on above: 1 Occurrences starti ng 09/19/2021 until 09/19/2022 End: 04-01-2023 Ct abdomen & pelvis w/contrast material CT ENTEROGRAPHY W IVCON Radiology Routine 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) Weight loss 1 Occurrences starting 03/02/2022 until 04/01/2023 [facility] Work Phone: Comment on above: 1 Occurrences starti ng 03/02/2022 until 04/01/2023 End: 12-15-2022 EGD DIAGNOSTIC EGD DIAGNOSTIC Endoscopy Routine Nausea and vomiting, unspecified vomiting type Left upper quadrant abdominal pain 1 Occurrences starting 12/15/2021 until 12/15/2022 [facility] Work Phone: Comment on above: 1 Occurrences starti ng 12/15/2021 until 12/15/2022 End: 03-02-2023 ENTEROSCOPY ENTEROSCOPY Endoscopy Routine 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) 1 Occurrences starting 03/02/2022 until 03/02/2023 [facility] Work Phone: Comment on above: 1 Occurrences starti ng 03/02/2022 until 03/02/2023 FAT, FECAL QUAL FAT, FECAL QUAL Lab Routine Weight loss Ordered: 01/05/2022 [facility] Work Phone: Comment on above: Ordered: 01/05/2022 End: 02-04-2023 Gastric emptying imaging study NM GASTRIC EMPTYING SOLID Radiology Routine Nausea 1 Occurrences starting 01/05/2022 until 02/04/2023 [facility] Work Phone: Comment on above: 1 Occurrences starti ng 01/05/2022 until 02/04/2023 End: 01-05-2023 Gi imag intraluminal esophagus-ileum w/i&r CAPSULE ENDOSCOPY SMALL BOWEL Endoscopy Routine Small bowel polyp 1 Occurrences starting 01/05/2022 until 01/05/2023 [facility] Work Phone: Comment on above: 1 Occurrences starti ng 01/05/2022 until 01/05/2023 End: 09-19-2022 Lipid 1996 panel - Serum or Plasma Lipid Panel Lab Routine Generalized anxiety disorder Long-term use of high-risk medication Bipolar 1 disorder, mixed, mild (HCC) 1 Occurrences starting 09/19/2021 until 09/19/2022 [facility] Comment on above: 1 Occurrences starti ng 09/19/2021 until 09/19/2022 PANC ELASTASE, FECAL PANC ELASTA SE, FECAL Lab Routine Weight loss Ordered: 01/05/2022 [facility] Work Phone: Comment on above: Ordered: 01/05/2022 End: 09-19-2022 Prolactin [Mass/volume] in Serum or Plasma Prolactin Lab Routine Generalized anxiety disorder Long-term use of high-risk medication Bipolar 1 disorder, mixed, mild (HCC) 1 Occurrences starting 09/19/2021 until 09/19/2022 [facility] Work Phone: Comment on above: 1 Occurrences starti ng 09/19/2021 until 09/19/2022 End: 04-01-2023 Radiologic exam chest 2 views XR CHEST 2V FRONTAL/LAT Radiology Routine Weight loss 1 Occurrences starting 03/02/2022 until 04/01/2023 [facility] Work Phone: Comment on above: 1 Occurrences starti ng 03/02/2022 until 04/01/2023 SURGICAL PATHOLOGY [facility] Work Phone: Comment on above: Release Upon Orderin g for 1 Occurrences starting 01/01/2022, 1 completed SURGICAL PATHOLOGY [facility] Work Phone: Comment on above: Release Upon Orderin g for 1 Occurrences starting 04/04/2022, 1 completed [facility] Immunizations Immunization Date Immunization Notes Care Provider Dany ordoñez 10-10-2022 tetanus toxoid, reduced diphtheria toxoid, and acellular pertussis vaccine, adsorbed Sandoval Rae [facility] Medicine Rashaun NEGATED: Highlighted row has not occurred!01-16-2024 influenza virus vaccine, unspecified formulation Sandoval Rae [facility] NEGATED: Highlighted row has not occurred!05-24-2020 influenza virus vaccine, unspecified formulation José Luis Resendiz [facility] Payers Date Payer Category Payer Self-pay 2017 Medicaid [id number] 2017 Medicaid [id number] 1970 Unknown [id number] 2.16.8 40.1.502591.3.579.2.727 1970 Unknown [id number] 2.16.8 40.1.402601.3.579.2.727 1970 Unknown [id number] 2.16. 840.1.921861.3.579.2.903 1970 Unknown [id number] 2.16. 840.1.254951.3.579.2.903 1970 Unknown [id number] 2.16. 840.1.017420.3.579.2.903 1970 Unknown [id number] 2.16. 840.1.064694.3.579.2.903 1970 Unknown [id number] 2.16.84 0.1.813627.3.579.2.593 1970 Unknown [id number] 2.16.84 0.1.314094.3.579.2.593 1970 Unknown [id number] 2.16.84 0.1.858220.3.579.2.593 1970 Unknown [id number] 2.16.84 0.1.818206.3.579.2.593 1970 Unknown [id number] 2.16.84 0.1.083043.3.579.2.593 1970 Unknown [id number] 2.16.84 0.1.577744.3.579.2.593 1970 Unknown [id number] 2.16.84 0.1.005379.3.579.2.593 1970 Unknown [id number] 2.16.84 0.1.239253.3.579.2.593 1970 Unknown [id number] 2.16.8 40.1.318976.3.579.2.727 1970 Unknown [id number] 2.16.8 40.1.845819.3.579.2.727 1970 Unknown [id number] 2.16.8 40.1.852753.3.579.2.727 1970 Unknown [id number] 2.16.8 40.1.473544.3.579.2.727 1970 Unknown [id number] 2.16.8 40.1.919921.3.579.2.727 1970 Unknown [id number] 2.16.8 40.1.368290.3.579.2.727 1970 Unknown [id number] 2.16.8 40.1.683550.3.579.2.727 1970 Unknown [id number] 2.16.8 40.1.976431.3.579.2.727 1970 Unknown [id number] 2.16.8 40.1.708334.3.579.2.727 1970 Unknown [id number] 2.16.8 40.1.951408.3.579.2.727 1959 Unknown [id number] 1959 Unknown [id number] Unknown [id number] 2.16.8 40.1.973136.3.579.2.531 Social History Date Type Detail Facility Start: 07-18-2020 End: 01-01-2022 Tobacco smoking status HIIS Current every day smoker [facility] Start: 07-18-2020 End: 01-01-2022 Tobacco use and exposure Never used [facility] Start: 07-18-2020 End: 04-04-2022 Alcohol intake Ex-drinker (finding) [facility] Start: 1970 Sex Assigned At Not on file [facility] Start: 09-09-2021 End: 02-05-2022 Exposure to SARS-CoV-2 (event) Not sure [facility] Start: 12-03-2021 End: 12-14-2021 Exposure to SARS-CoV-2 (event) Unable to assess [facility] Start: 06-10-2021 End: 06-20-2021 Exposure to SARS-CoV-2 (event) Yes [facility] Tobacco smoking stat [facility] Tobacco smoking consumption unknown [facility] Start: 1970 Sex Assigned At Female C [facility] History of tobacco use Cigarette Smoker [facility] Start: 01-01-2022 Cigarettes smoked current (pack per day) - Reported 0.5 [facility] History of tobacco use Passive smoker [facility] Start: 09-24-2023 Tobacco smoking status Ex-smoker (fi nding) [facility] Comment on above: quit smoking 2023 Sex Assigned At Female [facility] Start: 01-16-2024 End: 03-23-2024 Tobacco smoking status Light tobacco smoker (finding) [facility] Tobacco smoking status Never [facility] Functional Status Date Assessment Result Facility 03-23-2024 Functional Status N/A [facility] 02-25-2024 Functional Status N/A [facility] 02-21-2024 Functional Status N/A [facility] 01-16-2024 Functional Status N/A [facility] 09-24-2023 Functional Status N/A [facility] Clinical Notes 07-20-2020 to 02-25-2024 Note Date & Type Note Facility 02-25-2024 Evaluation + Plan note Extrac kitty from: Title:TANISHA Post-operative Note---General Author: Dakota Rivas MD Date:02/25/24 Plan Transfer/Discharge: Transfer/Discharge Discharge when meets criteria ( To home ). Extracted from: Title:ANES Pre-operative Note 2022 Author:Dakota Rhoades. Date:02/25/24 Plan [employer] [employer] (ASA) physical status classification: Class III. Anesthetic Preoperative Plan: Anesthesia General. Future Scheduled Tests Laboratory* Giardia lamblia, Direct Detection EIA 11/26/23 * O & P Exam, Routine 11/26/23 * Rotavirus Ab 11/26/23 * Clostridium Difficile PCR 11/26/23 Radiology* CT Abdomen/Pelvis w/contrast (enterography) 01/30/24 * XR Small Bowel w/ Serial Films 02/10/24 [facility] 12-10-2024 Hospital Discharge instructions Patient Education [...] hard liquor (44 mL). General instructions Take [id number] and prescription medicines only as told by [...] provider. Document Revised: 06/22/2020 Document Reviewed: 06/22/2020 [employer] Patient Education 2023 [employer]. 02/25/2024 11:02:55 Hiatal Hernia Hiatal Hernia A [...] reduce GERD symptoms. Medicines. These may include: ?Wplt-tyg-agaykou antacids. ?Medicines that make your stomach empty [...] may include: ?Fatty foods, like fried foods. ?Kern fruits, like oranges or lemon. ?Other foods [...] Do not drink alcohol. General instructions Take nuyc-hcm-[id number] and prescription medicines only as told by [...] provider. Document Revised: 05/01/2022 Document Reviewed: 05/01/2022 CiviQ Patient Education 2023 [employer]. 02/25/2024 11:02:51 Gastritis, Adult, Polm-hn-Gfdl Gastritis, Adult Gastritis is irritation and swelling [...] Follow these instructions at home: Medicines Take xpdg-cat-roekhvz and prescription medicines only as told by [...] provider. Document Revised: 07/08/2021 Document Reviewed: 07/08/2021 Civ[employer]Q Patient Education 2023 [employer]. 02/25/2024 11:02:46 Endoscopy, Care After Procedure [facility] [place] [facility] End[facility] Care After Procedure Please read the instructions outlined below and refer to this sheet in the next few weeks. These discharge instructions provide you with general information on [facility] Your doctor may also give [...] Document Re-Released: 08/26/2006 ExitCare Patient Information 2009 [address] [facility] [id number] NoteProgress Note-Physician Patient: SAI PINEDA Age: 53 years Sex: Female : 1970 Associated Diagnoses: None Author: Rob SANDOVAL, Dakota Shoemaker Postoperative Information Postoperative disposition: Postoperative disposition: To PACU. Optimetrix number: Optimetrix number [id number]. Anesthetic utilized: General. Health Status Allergies: Allergic [...] when meets criteria ( To home ).[facility] HealthComment on above:Result Comment: Electronically Signed By: Rob SANDOVAL, Dakota Shoemaker\.br\Date and Time Signed: 02/25/24 11:49 EST 02-25-2024 NotePatient Education - Text Endoscopy Care After Procedure Please read the instructions outlined below and refer to this sheet in the next few weeks. These discharge instructions provide you with general information on caring for yourself [facility] Your doctor may also give you [...] Document Re-Released: 08/26/2006 ExitCare??? Patient Information ???2009 [address] Gastroenterology Hiatal Hernia A hiatal hernia occurs [...] symptoms. ??? Medicines. These may include: ? Fabj-xxn-pavmelr antacids. ? Medicines that make your stomach [...] health care provide (more content not included)...[facility] NoteProgress Note-Physician Patient: SAI PINEDA Age: 53 [...] day(s), # 56 tab(s), Refills(s) 0, [id number], 169, cm, 02/21/24 8:47:00 EST, Height/Length Dosing, 62.2, kg, 02/21/24 8:47:00 EST, Weight Dosing Questran 4 g/9 g oral powder: = 1 packet(s), Oral, BID, # 60 EA, Refills(s) 2, [id number], 169, cm, 01/16/24 10:14:00 EDT, Height/Length Dosing, 63.9, kg, 01/16/24 10:14:00 EDT, Weight Dosing Spiriva Respimat 60 ACT 2.5 mcg/inh inhalation aerosol: = 2 inh, Inhalation, Daily, # 4 gm, Refills(s) 11, [id number], 169.7, cm, 11/26/23 15:32:00 EDT, Height/Length Dosing, 62.1, kg, 11/26/23 15:32:00 EDT, Weight Dosing Zofran 4 mg Tab: 4 mg = 1 tab(s), Oral, q8hr, PRN Nausea, # 10 tab(s), Refills(s) 0, [id number], 173, cm, 04/26/20 13:07:00 EST, Height/Length Dosing, 52.8, kg, 04/26/20 13:07:00 EST, Weight Dosing Zofran ODT 4 mg Tab-Dis: 4 mg = 1 tab(s), Oral, TID, # 15 tab(s), Refills(s) 0, [id number], 172, cm, 09/24/23 13:02:00 EDT, Height/Length Dosing, 61.2, kg, 09/24/23 13:02:00 EDT, Weight Dosing Zofran ODT 8 mg Tab-Dis: 8 mg = 1 tab(s), SubLingual, q8hr, PRN Nausea/Vomiting, # 24 tab(s), Refills(s) 0, [id number], 169, cm, 01/16/24 10:14:00 EDT, Height/Length Dosing, 63.9, kg, 10/31/24 10:14:00 EDT, Weight Dosing cloNIDine 0.2 mg Tab: 0.2 mg = 1 tab(s), Oral, Bedtime, # 30 tab(s), Refills(s) 1, [id number], 173, cm, 05/24/20 14:42:00 EST, Height/Length Dosing, 50.1, kg, 05/24/20 14:42:00 EST,Weight Dosing colestipol 1 g Tab: 2 gm = 2 tab(s), Oral, BID, with a full glass of water, # 120 tab(s), Refills(s) 1, [id number], 169, cm, 01/16/24 10:14:00 EDT, Height/Length Dosing, 63.9, kg, 01/16/24 10:14:00 EDT, Weight Dosing hydrOXYzine hydrochloride 50 mg oral tablet: 50 mg = 1 tab(s), Oral, TID, PRN as needed for anxiety, # 30 tab(s), Refills(s) 0, [id number], 173, cm, 04/26/20 13:07:00 EST, Height/Length Dosing, 52.8, kg, 04/26/20 13:07:00 EST, Weight Dosing lamotrigine 25 mg Tab: See Instructions, TAKE 1 TABLET BY MOUTH EVERY DAY IN THE AFTERNOON, # 30 tab(s), Refills(s) 0, Pharmacy: [id number], 169.7, cm, 11/26/23 15:32:00 EDT, Height/Length Dosing, 62.1, kg, 11/26/23 15:32:00 EDT, Weight Dosing mirtazapine 7.5 mg oral tablet: 7.5 mg = 1 tab(s), Oral, Bedtime, # 30 tab(s), Refills(s) 0, [id number], 169.7, cm, 10/03/23 9:38:00 EDT, Height/Length Dosing, 62.5, kg, 10/03/23 9:38:00 EDT, Weight Dosing omeprazole 20 mg Cap-DR: See Instructions, TAKE 1 CAPSULE BY MOUTH EVERY DAY, # 30 cap(s), Refills(s) 0, Pharmacy: [id number], 169, cm, 02/21/24 8:47:00 EST, Height/Length Dosing, 62.2, kg, 02/21/24 8:47:00 EST, Weight Dosing ondansetron 4 mg Dis Tab: 4 mg = 1 tab(s), Oral, q6hr, PRN Nausea/Vomiting, # 30 tab(s), Refills(s)0, [id number], 169.7, cm, 11/26/23 15:32:00 EDT, Height/Length Dosing, 62.1, kg, 11/26/23 15:32:00 EDT, Weight Dosing ondansetron 8 mg Dis Tab: See Instructions, DISSOLVE 1 TABLET ON THE TONGUE EVERY 8 HOURS NEEDEDFOR NAUSEA AND VOMITING, # 24 tab(s), Refills(s) 0, [id number], 169, cm, 02/17/2411:55:00 EST, Height/Length Dosing, 61.8, kg, 02/18/24 11:55:00 EST, Weight D... promethazine 25 mg Tab: 25 mg = 1 tab(s), Oral, TID, # 15 tab(s), Refills(s) 0, Pharmacy: [facility] #[facility], 169, cm, 01/16/24 10:14:00 EDT, Height/Length Dosing, 63.9, kg, 01/16/24 10:14:00 EDT, Weight Dosing promethazine 25 mg Tab: See Instructions, TAKE 1 TABLET BY MOUTH THREE TIMES A DAY, # 30 tab(s), Refills(s) 1, Pharmacy: [facility] #[id number], 169, cm, 02/18/24 11:55:00 EST, Height/Length Dosing, 61.8, kg, 02/18/24 11:55:00 E (more content not included)...[facility] HealthComment on above:Result Comment: Electronically Signed By: Rob SANDOVAL, Dakota Shoemaker\.br\Date and Time Signed: 02/25/24 10:18 [id number] Evaluation + Plan note Future Scheduled Tests Laboratory* Giardia lamblia, Direct Detection EIA 11/26/23 * O & P Exam, Routine 11/26/23 * Rotavirus Ab 11/26/23 * Clostridium Difficile PCR 11/26/23 Radiology* XR Small Bowel w/ Serial Films 02/10/24 [facility] 09-10-2024 Evaluation + Plan note Future Scheduled Tests Laboratory* Giardia lamblia, Direct Detection EIA 11/26/23 * O & P Exam, Routine 11/26/23 * Rotavirus Ab 11/26/23 * Clostridium Difficile PCR 11/26/23 Radiology* CT Abdomen/Pelvis w/contrast (enterography) 01/30/24 * XR Small Bowel w/ Serial Films 02/10/24 [facility] 07-09-2024 Hospital Discharge [...] Treatment for this condition includes: Antibiotic medicine. Mzsb-wbz-ktikmtx medicines to treat discomfort. Drinking enough water [...] Follow these instructions at home: Medicines Take jltm-zko-hmlsqhr and prescription medicines only as told by [...] provider. Document Revised: 10/14/2020 Document Reviewed: 10/14/2020 CiviQ Patient Education 2022 [employer]. Follow Up Care 09/24/2023 12:53:04 With:CHANCE SERRANO Address: [address] [place] [id number] [phone] Business (1) When:09/27/2023 15:19:10 [facility]07-09-2024 Evaluation + Plan note Diagnostic Tests Pending * Urine Culture 09/24/23 [facility]02-21-2023 Miscellaneous Notes* Telephone Encounter - Eva Chong - 05/08/2022 10:40 AM EST 05/08/22 Patient calling to see if Dr Morales will write her a script for Zofran nausea medication strips. [phone] Eva documented in this encounterCommunity [facility] Center02-07-2023 NoteHNO ID: [id number] Author: Tiffani Morales MD Service: ? Author [...] Tiffani Morales MD 04/24/2022 11:19 AM Staff Nematologist, Dig[facility] [place] PRIMARY PROBLEM: small bowel tumor, severe malnutrition [...] clips were successfully placed (MR conditional). 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 There was no bleeding at the end [...] physical examination, documentation, and co-ordination of care.[facility]02-07-2023 History of Present illness Narrative* [...] Tiffani Morales MD 04/24/2022 11:19 AM Staff Nematologist, Digestive Disease [facility] Surgery [place] PRIMARY PROBLEM: small bowel tumor, severe malnutrition [...] clips were successfully placed (MR conditional). 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 There was no bleeding at the end [...] co- ordination of care. documented in this encounterCommunity Regional Medical Center01-19-2023 Miscellaneous Notes* Telephone Encounter - Eva Chong - 04/05/2022 9:29 AM EST 04/05/22 Patient wants tow know if y script you can send her script for ZOFRAN, under the tongue tablets. For nausea. Eva documented in this encounterCommunity Regional Medical Center01-18-2023 NoteHNO ID: [id number] Author: Frederick Chaves APRN.AQUACULTURAL WORKER SUPERVISOR Service: ? Author Type: Nurse Services Manager Type: Anesthesia Procedure Notes Filed: 04/04/2022 1:55 PM Note Text: ANESTHESIOLOGY PROCEDURE NOTE Airway General Information Procedure Start Time/Medication Administration: 04/04/2022 1:38 PM Patient location during procedure: OR Timeout Performed Pre-procedure: timeout performed Consent Obtained: Yes Patient identity confirmed: arm band Staffing AQUACULTURAL WORKER SUPERVISOR: Frederick Chaves APRN.AQUACULTURAL WORKER SUPERVISOR Performed by: AQUACULTURAL WORKER SUPERVISOR Indications and Patient Condition Indications for airway [...] 1 Airway not difficult SIGNATURE: Frederick Chaves APRN.AQUACULTURAL WORKER SUPERVISOR PATIENT NAME: Sai Pineda DATE: April 04, 2022 TIME: 1:54 PM CSN: [id number] [facility]01-18-2023 NoteHNO ID: [id number] Author: Frederick Chaves APRN.AQUACULTURAL WORKER SUPERVISOR Service: ? Author Type: Nurse Services Manager Type: Anesthesia Procedure Notes Filed: 04/04/2022 1:51 PM Note Text: ANESTHESIOLOGY PROCEDURE NOTE PIV General Information Procedure Start Time/Medication Administration: 04/04/2022 1:26 PM Patient Location: OR Staffing AQUACULTURAL WORKER SUPERVISOR: Frederick Chaves APRN.AQUACULTURAL WORKER SUPERVISOR Performed by: AQUACULTURAL WORKER SUPERVISOR Preparation Sterility Preparation: hand hygiene performed prior to procedure, surgical cap used, mask used, skin prep agent completely dried prior to procedure Site Prep: alcohol Procedure Details Indication: need for IV access Needle Size/Type: 22 gauge angiocath Orientation: Right Location: Foot Imaging Guidance Used: No SIGNATURE: Frederick Chaves APRN.AQUACULTURAL WORKER SUPERVISOR PATIENT NAME: Sai Pineda DATE: April 04, 2022 TIME: 1:49 PM CSN: [id number] Health [facility]01-18-2023 Nurse Note* Eduardo Harrington RN - 04/04/2022 [...] RN In Department: GASTROENTEROLOGY documented in this encounterCommunity Regional Medical Center01-18-2023 NoteQ3 Patient Name: Sai [...] clips were successfully placed (MR conditional). 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 There was no bleeding at the end of the maneuver. Exam of the jejunum was otherwise normal. Impression: - Atrophic mucosa. - Jejunal polyp(s). Resected and retrieved. Tattooed. Clips (MR conditional) were placed. Clip distribution supervisor: [employer]. Estimated Blood Loss: Estimated blood loss was minimal. Recommendation: - Await pathology results. - Resume previous diet. - Continue present medications. - Return to endoscopist at the next available appointment. Procedure Code(s): --- Professional --- 73403, Small intestinal endoscopy, enteroscopy beyond second portion of duodenum, not including ileum; with removal of tumor(s), polyp(s), or other lesion(s) by snare technique 97289, Unlisted procedure, small intestine Diagnosis Code(s): --- Professional --- K31.89, Other diseases of stomach and duodenum D13.39, Benign neoplasm of other parts of small intestine R93.3, Abnormal findings on diagnostic imaging of other parts of digestive tract CPT copyright 2020 [employer]. All rights reserved. Attending Participation: I was present and participated during the entire procedure, including non-morrison portions. Scope In: 1:44:30 PM Scope Out: 3:07:42 PM MD Tiffani Camargo MD 04/04/2022 3:21:50 PM This report has been signed electronically by Tiffani Morales MD Number of Addenda: 0 (more content not included)...[facility] 04-04-2022 History and physical note* [...] DATE: 04/04/2022 TIME: 1302 documented in this encounterCommunity Regional Medical Center01-11-2023 Miscellaneous Notes* Telephone Encounter - Eduardo Harrington RN - 03/28/2022 3:50 PM EST Attempted to reach the patient at the contact number that they provided [phone] (home) . 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 they must have a responsible adult [...] Number to call with questions or concerns [phone] Number to call to cancel their procedure [phone] Eduardo Harrington RN documented in this encounterCommunity Regional Medical Center12-27-2022 Note* Addendum Note - Robb Evans MD - 03/13/2022 3:44 PM ESTAddended by: ROBB EVANS on: 03/13/2022 03:44 PM Modules accepted: Orders [id number] Miscellaneous Notes* Addendum Note - Robb Evans MD - 03/13/2022 3:44 PM ESTAddended by: ROBB EVANS on: 03/13/2022 03:44 PM Modules accepted: Orders * Addendum Note - Gokul Montoya MA - 03/13/2022 3:37 PM ESTAddended by: GOKUL MONTOYA on: 03/13/2022 03:37 PM Modules accepted: Orders documented in this [id number] Note* Addendum Note - Gokul Montoya MA - 03/13/2022 3:37 PM ESTAddended by: GOKUL MONTOYA on: 03/13/2022 03:37 PM Modules accepted: Orders [id number] Note* Addendum Note - Gokul Montoya MA - 03/13/2022 3:37 PM ESTAddended by: GOKUL MONTOYA on: 03/13/2022 03:37 PM Modules accepted: Orders [id number] Miscellaneous Notes* Addendum Note - Gokul Montoya MA - 03/13/2022 3:37 PM ESTAddended by: GOKUL MONTOYA on: 03/13/2022 03:37 PM Modules accepted: Orders documented in this [id number] NoteHNO ID: [id number] Author: Tiffani Morales MD Service: ? Author [...] Tiffani Morales MD 03/01/2022 11:19 AM Staff Nematologist, Digestive Disease AND Surgery [place] PRIMARY PROBLEM: small bowel tumor, severe malnutrition [...] physical examination, documentation, and co-ordination of care.[facility]12-15-2022 History of Present illness Narrative* [...] access the video or audio with a FieldEZvite. IMPRESSION: Sai Pineda is a 51 year [...] Tiffani Morales MD 03/01/2022 11:19 AM Staff Nematologist, Digestive Disease & Surgery [place] PRIMARY PROBLEM: small bowel tumor, severe malnutrition [...] co- ordination of care. documented in this encounterCommunity Regional Medical Center12-02-2022 NoteHNO ID: [id number] Author: Anastasiya Mosqueda PA-C Service: ? Author Type: Physician Solution Make Up Operator Type: Progress Notes Filed: 02/16/2022 5:07 PM Note Text: Orders placedOhiohealth [facility]11-21-2022 NoteHNO ID: [id number] Author: RT Fabiana(R) Service: Nuclear Medicine Author [...] 20[address] DI[address] PERFORMED: No IV SITE: [place] only - not applicable, oral or physician [...] safety can be found using this link: [email or web address] SIGNATURE: RT Fabiana(R) PATIENT NAME: Sai Pineda DATE: February 05, 2022 TIME: 10:16 AM PAGER/CONTACT #:[facility]11-14-2022 NoteHNO ID: [id number] Author: Dolores Lopez RN Service: ? Author Type: Registered Nurse Type: Progress Notes Filed: 02/01/2022 4:29 PM Note Text: Summary: capsule endoscopy small bowel Capsule endoscopy small bowel ingested without difficulty @ 1300 on 01-29-2022. Therese Lopez RN [id number] MFW PTF G [id number] Capsule Endoscopy Post Ingestion Patient Information Do [...] cell phones, computers, remote TV appliances, microwaves, Heartbeat3 players and digital cameras. Because the capsule [...] hours you may call: HERNÁN Salvador RN [phone] After Business hours: [phone] and ask for GI Uznwjb-Zo-XfvNfnqtdegiOur [facility]11-14-[facility]22 History of Present illness Narrative* Dolores Lopez RN - 01/29/2022 1:17 PM ESTSummary: capsule endoscopy small bowel Capsule endoscopy small bowel ingested without difficulty @ 1300 on 01-29-2022. Therese Lopez RN [id number] MFW PTF G [id number] Capsule Endoscopy Post Ingestion Patient Information Do [...] on thebox for return to the main brighton. Place the box in the closest [employer] [...] hours you may call: HERNÁN Salvador RN [phone] After Business hours: [phone] and ask for GI Emwibu-Ni-Zfl documented in this encounterCommunity Regional Medical Center10-21-2022 Miscellaneous Notes* Telephone Encounter [...] Morales MD 01-05-2022 17:51 documented in this encounterCommunity Regional Medical Center10-21-2022 NoteHNO ID: [id number] Author: Anastasiya Mosqueda PA-C Service: ? Author Type: Physician Solution Make Up Operator Type: Progress Notes Filed: 01/05/2022 2:24 PM Note Text: Per discussion with Dr. Morales, SUZANNE, Small bowel capsule study, Fecal fat qual and pancreatic elastase stool studies orders placed. Discussed plan with patient. [facility] History of Present illness Narrative* Anastasiya Mosqueda PA-C - 01/05/2022 2:13 PM EDT Per discussion with SUZANNE Estrada, Small bowel capsule study, Fecal fat qual and pancreatic elastase stool studies orders placed. Discussed plan with patient. Anastasiya Mosqueda PA-C documented in this encounterCommunity Regional Medical Center10-21-2022 Miscellaneous Notes* Telephone Encounter [...] testing. Anastasiya Mosqueda PA-C documented in this encounterCommunity Regional Medical Center10-19-2022 Miscellaneous Notes* Telephone Encounter - Anastasiya Mosqueda PA-C - 01/03/2022 10:17 AM EDT EGD results discussed with patient as requested, pathology still pending. Will reach out to patientonce resulted. Red flags for in person care discussed. Anastasiya Mosqueda PA-C documented in this encounterCommunity Regional Medical Center10-18-2022 Miscellaneous Notes* Telephone Encounter - Leydi Dumontader - 01/02/2022 8:47 AM EDT Patient called to get results from her procedure. Please contact her at number listed in system. Thanks Leydi Henry Workleader documented in this encounterCommunity Regional Medical Center10-17-2022 Nurse Note* Juan Carlos [...] RN In Department: GASTROENTEROLOGY documented in this encounterCommunity Regional Medical Center10-17-2022 History and physical note [...] DATE: 01/01/2022 TIME: 1600 documented in this encounterCommunity Regional Medical Center10-10-2022 Miscellaneous Notes* Telephone Encounter - Rima Gerard RN - 12/25/2021 8:26 AM EDT Patient scheduled incorrectly. Anesthesia not supposed to have 430 case. I called patient to see ifthey can come in early. She said she would call me back Rima Gerard RN documented in this encounterCommunity Regional Medical Center09-30-2022 NoteHNO ID: [id number] Author: Anastasiya Mosqueda PA-C Service: ? Author Type: Physician Solution Make Up Operator Type: Progress Notes Filed: 12/15/2021 4:32 PM Note Text: VIRTUAL VISIT NEW PATIENT NAME: Sai Guerrero CLINIC NO: [id number] DATE: 12/15/2021 REASON FOR VISIT Sai Guerrero [id number] 1970 has requested a video telemedicine initial [...] rigidity Assessment IMPRESSION (more content not included)...[facility]09-30-2022 History of Present illness Narrative* Anastasiya Mosqueda PA-C - 12/15/2021 11:50 AM EDT VIRTUAL VISIT NEW PATIENT NAME: Sai Guerrero [facility] NO: [id number] DATE: 12/15/2021 REASON FOR VISIT Sai Guerrero [id number] 1970 has requested a video telemedicine initial [...] 15, 2021 11:51 AM documented in this encounterCommunity Regional Medical Center09-29-2022 NoteHNO ID: [id number] Author: Anastasiya Mosqueda PA-C Service: ? Author Type: Physician Solution Make Up Operator Type: Progress Notes Filed: 12/14/2021 3:51 PM Note Text: Unable to connect to VV, called multiple times and left multiple VM's. Patient rescheduled for tomorrow.[facility]09-29-2022 History of Present illness Narrative* Anastasiya Mosqueda PA-C - 12/14/2021 10:52 AM EDT Unable to connect to VV, called multiple times and left multiple VM's. Patient rescheduled for tomorrow. documented in this encounterCommunity Regional Medical Center09-28-2022 Miscellaneous Notes* Telephone Encounter - Elizabeth Ricci - 12/13/2021 12:32 PM EDT Spoke to patient's daughter - she will contact the [email or web address] support line to assist with setting up patient's Mychart & assist with set up for virtual visit tomorrow morning Elizabeth Ricci * Telephone Encounter - Elizabeth Ricci - 12/13/2021 11:17 AM EDT Received a call from patient's health agency concerning virtual visit set up with you today at 11 - Patient has not registered for [employer] (having trouble accessing her email) & they want to knowif you will do a phone visit instead Was told this was an urgent request from the referring doctor's office - the visit was scheduled thru the Referring Physician office There are no records found for this patient & I attempted to pull records thru Care Everywhere Patient's phone [phone] Elizabeth Ricci documented in this encounterCommunity Regional Medical Center07-13-2022 History of Present illness Narrative* Robb Evans MD - 09/27/2021 10:19 AM EDT Prolactin Level Elevated at 146. Will add Abilify 5 mg daily to address that. Pt informed. Pt is denying breast tenderness or documented in this [id number] History of Present illness Narrative* Robb Evans MD - 09/19/2021 2:19 PM EDT BEHAVIORAL HEALTH PSYCHIATRIC PROGRESS NOTE Reason for visit: Psychotropic medication management 09/19/2021 Patient is seen alone in his office for psychotropic medication management. Patient reported they are moving to a new residence, in [place] same place they have been living in. [...] Testing: none Robb Evans documented in this [id number] History of Present illness Narrative* Robb Evans [...] Testing: none Robb Evans documented in this [id number] History of Present illness Narrative* Robb Evans MD - 03/01/2021 1:31 PM EST Telephone Visit Via Phone Call [facility] [address] ([address]) [facility] [address] [facility] [phone] Telephone Visit [facility] 03/01/2021 Robb Evans MD Provider Location: [facility] Patient Location Cardiovascular Surgeon: None Patient Location: Patient's Home Patient: Sai [...] there are inherent diagnostic limitations compared to tilr-hw-dzrt evaluations. We elected toproceed with the telephone [...] and Plan of Care. documented in this [id number] History of Present illness Narrative* Robb Evans MD - 08/22/2020 3:27 PM EDT Telephone Visit Via Phone Call [facility] [phone] Telephone Visit [facility] 08/22/2020 Robb Evans MD Provider Location: [facility] Patient Location Cardiovascular Surgeon: None Patient Location: Patient's Home Patient: Sai [...] there are inherent diagnostic limitations compared to twyd-gf-voww evaluations. We elected toproceed with the telephone [...] and Plan of Care. documented in this [id number] History of Present illness Narrative* Robb Evans MD - 07/20/2020 11:29 AM EDT BEHAVIORAL HEALTH PSYCHIATRIC ASSESSMENT DOS: 07/18/3020 Reason for visit: Psychotropic management follow-up. Patient is here to reestablish care at my new location HPI: Patient is seen in office alone. Patient was under my care for about a year at my [facility]. Her working diagnosis is bipolar disorder type I, panic disorder with agoraphobia and PTSD. She has prior history of alcohol and cannabis abuse but has maintained sobriety for about last 1 year. Patient was seen here for reestablishing care at my new location in [facility]. Patient wants to continue her psychiatric management.. She had briefly seen a nurse practitioner in [place] after [place]. Patient reported she she is [...] PFSH: Past Medical History: Diagnosis Date Alcoholism ([facility]), in remission Anxiety Bipolar disorder (HCC) [...] XR Small Bowel w/ Serial Films 01/27/24 [facility] Evaluation + Plan note Future Appointments Appointment Date:02/25/2024 11:00:00 AM Scheduled Provider: Location:[facility] Services Appointment Type:Surgery FT Future Scheduled Tests Laboratory* Giardia lamblia, Direct Detection EIA 11/26/23 * O & P Exam, Routine 11/26/23 * Rotavirus Ab 11/26/23 * Clostridium Difficile PCR 11/26/23 Radiology* CT Abdomen/Pelvis w/contrast (enterography) 01/30/24 * XR Small Bowel w/ Serial Films 02/10/24 [facility] Evaluation note* Diagnosis [...] of high-risk medication documented in this encounter [facility] note* Diagnosis Generalized anxiety disorder documented in this encounter [facility] note* Diagnosis Bipolar 1 disorder, mixed, mild (HCC)- Primary Generalized anxiety disorder Long-term use of high-risk medication documented in this encounter [facility] note* Diagnosis Generalized anxiety disorder- Primary Bipolar 1 disorder, mixed, mild (HCC) Long-term use of high-risk medication Post traumatic stress disorder (PTSD) documented in this encounter [facility] note* Diagnosis Bipolar 1 disorder, mixed, mild (HCC)- Primary Generalized anxiety disorder Long-term use of high-risk medication documented in this encounter [facility] note* Diagnosis APPOINTMENT CANCELLED- Primary documented in this encounter [facility] note* Diagnosis Nausea and vomiting, unspecified vomiting type- Primary Left upper quadrant abdominal pain Weight loss Loss of weight documented in this encounter [facility] note* Diagnosis Nausea and vomiting, unspecified vomiting type Left upper quadrant abdominal pain documented in this encounter [facility] note* Diagnosis Nausea- Primary Nausea alone Weight loss Loss of weight 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, jejunum, and ileum documented in this encounter [facility] note* Diagnosis Abdominal pain, unspecified abdominal location- Primary documented in this encounter [facility] note* Diagnosis Intestinal polyposis- Primary Benign neoplasm of colon documented in this encounter [facility] note* Diagnosis Severe protein-calorie malnutrition (HCC)- Primary Other severe protein-calorie malnutrition 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 Weight loss Loss of weight Severe malnutrition (HCC) 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 [facility] note* Diagnosis Generalized anxiety disorder documented in this encounter [facility] note* Diagnosis Generalized anxiety disorder documented in this encounter [facility] note* Diagnosis Generalized anxiety disorder documented in this encounter [facility] note* Diagnosis 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 documented in this encounter [facility] note* Diagnosis Generalized anxiety disorder documented in this encounter [facility] note* Diagnosis Severe malnutrition (HCC)- Primary 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 [facility] course Narrative No data available for this section [facility] No data available for this section [facility] Progress note No data available for this section [facility] Outpatient Procedure (Routine) - Closed Specialty Diagnoses / Procedures Referred By Shane titus Referred To Contact [facility] Diagnoses Nausea and vomiting, unspecified vomiting type Left upper quadrant abdominal pain Procedures EGD DIAGNOSTIC ESOPHAGOGASTRODUODENOSC OPY TRANSORAL DIAGNOSTIC Anastasiya Mosqueda PA-C [address] [place] [address] [place] [address] [place] [address] Referral ID Status Reason Start Date Expiration Date V isits Requested Visits Authorized [id number] Closed Auto-Generate d Referral 12/15/2021 12/15/2022 1 1 [facility] for referral (narrative)* Outpatient Procedure (Routine) - Pending Review Specialty Diagnoses / Procedures Referred By Shane titus Referred To Contact [facility] Diagnoses Small bowel polyp Procedures CAPSULE ENDOSCOPY SMALL BOWEL GI TRC IMG INTRALUMINAL ESOPHAGUS-ILEUM W/I&R Anastasiya Mosqueda PA-C [address] [place] [address] [facility] [address] [place] [address] Referral ID Status Reason Start Date Expiration Date Visits Requested Visits Authorized [id number] Pending Review Auto-Generat ed Referral 2 01/05/2023 1 1 * Diagnostic Procedure Only (Routine) - Pending Review Specialty Diagnoses / Procedures Referred By Shane titus Referred To Contact [facility] Diagnoses Nausea Procedures NM GASTRIC EMPTYING SOLID GASTRIC EMPTYING STUDY Anastasiya Mosqueda PA-C [address] [place] [address] [facility] [address] [place] [address] Referral ID Status Reason Start Date Expiration Date Visits Requested Visits Authorized [id number] Pending Review Auto-Generat ed Referral 2 02/04/2023 1 1 [facility] for referral (narrative)* Outpatient Procedure (Routine) - Pending Review Specialty Diagnoses / Procedures Referred By Contac t Referred To Contact [facility] Diagnoses 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) Procedures ENTEROSCOPY ENDOSCOPY UPPER SMALL INTESTINE Tiffani Morales MD [address] [place] [address] [facility] [place] [address] [place] [address] Referral ID Status Reason Start Date Expiration Date Visits Requested Visits Authorized [id number] Pending Review Auto-Generat ed Referral 2 03/02/2023 1 1 * MRI/CT (Routine) - Pending Review Specialty Diagnoses / Procedures Referred By Contac t Referred To Contact CT IMAGING Diagnoses 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) Weight loss Procedures CT ENTEROGRAPHY W IVCON CT ABD & PELVIS W/CONTRAST Tiffani Morales MD [address] [place] [address] Ct Imaging Referral ID Status Reason Start Date Expiration Date Visits Requested Visits Authorized [id number] Pending Review Auto-Generat ed Referral 2 04/01/2023 1 1 [facility] for referral (narrative)* Outpatient Procedure (Routine) - Closed Specialty Diagnoses / Procedures Referred By Contrachel t Referred To Contact [facility] Diagnoses 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) Procedures ENTEROSCOPY ENDOSCOPY UPPER SMALL INTESTINE Tiffani Morales MD [address] [place] [address] [facility] [address] [address] Referral ID Status Reason Start Date Expiration Date V isits Requested Visits Authorized [id number] Closed Auto-Generate d Referral 03/02/2022 03/02/2023 1 1 [facility] for visit Narrative* Outpatient Procedure (Routine) - Closed Specialty Diagnoses / Procedures Referred By Contac t Referred To Contact [facility] Diagnoses Nausea and vomiting, unspecified vomiting type Left upper quadrant abdominal pain Procedures EGD DIAGNOSTIC ESOPHAGOGASTRODUODENOSC OPY TRANSORAL DIAGNOSTIC Anastasiya Mosqueda PA-C [address] [place] [id number] [facility] [address] [address] Referral ID Status Reason Start Date Expiration Date V isits Requested Visits Authorized [id number] Closed Auto-Generate d Referral 12/15/2021 12/15/2022 1 1 [facility] for visit Narrative* Outpatient Procedure (Routine) - Closed Specialty Diagnoses / Procedures Referred By Contac t Referred To Contact [facility] Diagnoses 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) Procedures ENTEROSCOPY ENDOSCOPY UPPER SMALL INTESTINE Tiffani Morales MD [address] [place] [address] [facility] [place] [id number] Referral ID Status Reason Start Date Expiration Date V isits Requested Visits Authorized [id number] Closed Auto-Generate d Referral 03/02/2022 03/02/2023 1 1 [facility] Advance Directives No Advanced Directives Records FoundDocuments on File Type Date Recorded Patient Prison W[employer] Expl anation Advance Directives and Living Will [...] HIGH MDM 60-74 MINUTES Anastasiya Mosqueda PA-C [address] [place] [address] Referral ID Status Reason Start Date Expiration Date Visits Requested Visits Authorized [id number] Authorized PCP Requested Referral 12/15/2021 12/15/2022 1 1 Specialty Diagnoses / Procedures Referred By Shane titus Referred To Contact [facility] Diagnoses Nausea and vomiting, unspecified vomiting type Left upper quadrant abdominal pain Procedures EGD DIAGNOSTIC ESOPHAGOGASTRODUODENOSC OPY TRANSORAL DIAGNOSTIC Anastasiya Mosqueda PA-C [address] [place] [address] [facility] [place] [address] [place] [address] Referral ID Status Reason Start Date Expiration Date Visits Requested Visits Authorized [id number] Authorized Auto-Generat ed Referral 12/15/2021 12/15/2022 1 1 Medications Administered Section Inactive Administered Medications - up to 3 most recent administrations Medication Order MAR Action Action Date Dose Rate Site benzocaine 20% (TOPEX) TOPICAL, X (OR/PROCEDURE) PRN, Starting on Sat01/01/22 at 1606, Until Sat01/01/22 at 1606, Intraprocedure Given 01/01/2022 4:06 PM EDT 1 [place] NaCl 0.9% iv infusion 30 mL/hr, INTRAVENOUS, [...] Care Teams (unrecognized sec tion and content) Oncology Pharmacist Relationship Specialty Start Date End Date Cristina Iqbal, PER DIEM PHYSICAL THERAPIST [address] [place] [address] PCP - General Nurse Practitioner 07/18/20 Oncology Pharmacist Relationship Specialty Start Date End Date Cristina Iqbal PER DIEM PHYSICAL THERAPIST [address] [facility] [place] [address] PCP - General Nurse Practitioner 07/18/20 Oncology Pharmacist Relationship Specialty Start Date End Date Cristina Iqbal, PER DIEM PHYSICAL THERAPIST [address] [facility] [place] [address] PCP - General Nurse Practitioner 07/18/20 Oncology Pharmacist Relationship Specialty Start Date End Date Cristina Iqbal PER DIEM PHYSICAL THERAPIST [address] [facility] [place] [address] PCP - General Nurse Practitioner 07/18/20 Oncology Pharmacist Relationship Specialty Start Date End Date Cristina Iqbal PER DIEM PHYSICAL THERAPIST [address] [facility] [place] [address] PCP - General Nurse Practitioner 07/18/20 Oncology Pharmacist Relationship Specialty Start Date End Date Cristina Iqbal PER DIEM PHYSICAL THERAPIST [address] [place] [address] PCP - General Family Medicine 10/15/12 Oncology Pharmacist Relationship Specialty Start Date End Date Cristina Iqbal PER DIEM PHYSICAL THERAPIST [address] [place] [address] PCP - General Family Medicine 10/15/12 Oncology Pharmacist Relationship Specialty Start Date End Date Cristina Iqbal, PER DIEM PHYSICAL THERAPIST [address] [place] [address] PCP - General Family Medicine 10/15/12 Oncology Pharmacist Relationship Specialty Start Date End Date Cristina Iqbal, PER DIEM PHYSICAL THERAPIST [address] [place] [address] PCP - General Family Medicine 10/15/12 Oncology Pharmacist Relationship Specialty Start Date End Date Cristina Iqbal, PER DIEM PHYSICAL THERAPIST [address] [place] [address] PCP - General Family Medicine 10/15/12 Oncology Pharmacist Relationship Specialty Start Date End Date Cristina Iqbal, PER DIEM PHYSICAL THERAPIST [address] [place] [address] PCP - General Family Medicine 10/15/12 Oncology Pharmacist Relationship Specialty Start Date End Date Cristina Iqbal, PER DIEM PHYSICAL THERAPIST [address] [place] [address] PCP - General Family Medicine 10/15/12 Oncology Pharmacist Relationship Specialty Start Date End Date Cristina Iqbal, PER DIEM PHYSICAL THERAPIST [address] [place] [address] PCP - General Family Medicine 10/15/12 Oncology Pharmacist Relationship Specialty Start Date End Date Cristina Iqbal, PER DIEM PHYSICAL THERAPIST [address] [place] [address] PCP - General Nurse Practitioner 07/18/20 Oncology Pharmacist Relationship Specialty Start Date End Date Cristina Iqbal, PER DIEM PHYSICAL THERAPIST [address] [place] [address] PCP - General Family Medicine 10/15/12 Oncology Pharmacist Relationship Specialty Start Date End Date Cristina Iqbal, PER DIEM PHYSICAL THERAPIST [address] [place] [address] PCP - General Family Medicine 10/15/12 Oncology Pharmacist Relationship Specialty Start Date End Date Cristina Iqbal, PER DIEM PHYSICAL THERAPIST [address] [place] [address] PCP - General Family Medicine 10/15/12 Oncology Pharmacist Relationship Specialty Start Date End Date Cristina Iqbal, PER DIEM PHYSICAL THERAPIST [address] [place] [address] PCP - General Family Medicine 10/15/12 Oncology Pharmacist Relationship Specialty Start Date End Date Cristina Iqbal, PER DIEM PHYSICAL THERAPIST [address] [place] [address] PCP - General Nurse Practitioner 07/18/20 Oncology Pharmacist Relationship Specialty Start Date End Date Cristina Iqbal, PER DIEM PHYSICAL THERAPIST [address] [place] [address] PCP - General Nurse Practitioner 07/18/20 Oncology Pharmacist Relationship Specialty Start Date End Date Cristina Iqbal, PER DIEM PHYSICAL THERAPIST [address] [place] [address] PCP - General Family Medicine 10/15/12 Oncology Pharmacist Relationship Specialty Start Date End Date Cristina Iqbal, PER DIEM PHYSICAL THERAPIST [address] [place] [address] PCP - General Family Medicine 10/15/12 Oncology Pharmacist Relationship Specialty Start Date End Date Cristina Iqbal, PER DIEM PHYSICAL THERAPIST [address] [place] [address] PCP - General Family Medicine 10/15/12 Oncology Pharmacist Relationship Specialty Start Date End Date Cristina Iqbal, PER DIEM PHYSICAL THERAPIST [address] [place] [address] PCP - General Family Medicine 10/15/12 INFORMATION SOURCE (unrecogn ized section and content) DATE CREATED AUTHOR 12/16/2021 [facility] DATE CREATED AUTHOR AUTHOR'S ORGANIZ ATION 12/20/2021 [facility] DATE CREATED AUTHOR AUTHOR'S ORGANIZ ATION 05/12/2022 [facility] DATE CREATED AUTHOR AUTHOR'S ORGANIZ ATION 05/31/2022 [facility] DATE CREATED AUTHOR AUTHOR'S ORGANIZ ATION 03/04/2024 [facility] DATE CREATED AUTHOR AUTHOR'S ORGANIZ ATION 03/29/2024 [facility] DATE CREATED AUTHOR AUTHOR'S ORGANIZ ATION 05/14/2024 [facility] DATE CREATED AUTHOR AUTHOR'S ORGANIZ ATION 05/19/2024 [facility] Source Comments (unrecognize d section and content) In the event this informatio n is protected by the Federal Confidentiality of Alcohol and Drug Abuse Patient Records regulations: The Federal rules restrict any use of the information to criminally investigate or prosecute any alcohol or drug abuse patient.[facility] the event this information is protected by the Federal Confidentiality of Alcohol and Drug Abuse Patient Records regulations: The Federal rules restrict any use of the information to criminally investigate or prosecute any alcohol or drug abuse patient.[facility] the event this information is protected by the Federal Confidentiality of Alcohol and Drug Abuse Patient Records regulations: The Federal rules restrict any use of the information to criminally investigate or prosecute any alcohol or drug abuse patient.[facility] the event this information is protected by the Federal Confidentiality of Alcohol and Drug Abuse Patient Records regulations: The Federal rules restrict any use of the information to criminally investigate or prosecute any alcohol or drug abuse patient.[facility] the event this information is protected by the Federal Confidentiality of Alcohol and Drug Abuse Patient Records regulations: The Federal rules restrict any use of the information to criminally investigate or prosecute any alcohol or drug abuse patient.[facility] the event this information is protected by the Federal Confidentiality of Alcohol and Drug Abuse Patient Records regulations: The Federal rules restrict any use of the information to criminally investigate or prosecute any alcohol or drug abuse patient.[facility] the event this information is protected by the Federal Confidentiality of Alcohol and Drug Abuse Patient Records regulations: The Federal rules restrict any use of the information to criminally investigate or prosecute any alcohol or drug abuse patient.[facility] the event this information is protected by the Federal Confidentiality of Alcohol and Drug Abuse Patient Records regulations: The Federal rules restrict any use of the information to criminally investigate or prosecute any alcohol or drug abuse patient.[facility] the event this information is protected by the Federal Confidentiality of Alcohol and Drug Abuse Patient Records regulations: The Federal rules restrict any use of the information to criminally investigate or prosecute any alcohol or drug abuse patient.[facility] the event this information is protected by the Federal Confidentiality of Alcohol and Drug Abuse Patient Records regulations: The Federal rules restrict any use of the information to criminally investigate or prosecute any alcohol or drug abuse patient.[facility] the event this information is protected by the Federal Confidentiality of Alcohol and Drug Abuse Patient Records regulations: The Federal rules restrict any use of the information to criminally investigate or prosecute any alcohol or drug abuse patient.[facility] the event this information is protected by the Federal Confidentiality of Alcohol and Drug Abuse Patient Records regulations: The Federal rules restrict any use of the information to criminally investigate or prosecute any alcohol or drug abuse patient.[facility] the event this information is protected by the Federal Confidentiality of Alcohol and Drug Abuse Patient Records regulations: The Federal rules restrict any use of the information to criminally investigate or prosecute any alcohol or drug abuse patient.[facility] the event this information is protected by the Federal Confidentiality of Alcohol and Drug Abuse Patient Records regulations: The Federal rules restrict any use of the information to criminally investigate or prosecute any alcohol or drug abuse patient.[facility] the event this information is protected by the Federal Confidentiality of Alcohol and Drug Abuse Patient Records regulations: The Federal rules restrict any use of the information to criminally investigate or prosecute any alcohol or drug abuse patient.[facility] the event this information is protected by the Federal Confidentiality of Alcohol and Drug Abuse Patient Records regulations: The Federal rules restrict any use of the information to criminally investigate or prosecute any alcohol or drug abuse patient.[facility] the event this information is protected by the Federal Confidentiality of Alcohol and Drug Abuse Patient Records regulations: The Federal rules restrict any use of the information to criminally investigate or prosecute any alcohol or drug abuse patient.[facility] the event this information is protected by the Federal Confidentiality of Alcohol and Drug Abuse Patient Records regulations: The Federal rules restrict any use of the information to criminally investigate or prosecute any alcohol or drug abuse patient.[facility] the event this information is protected by the Federal Confidentiality of Alcohol and Drug Abuse Patient Records regulations: The Federal rules restrict any use of the information to criminally investigate or prosecute any alcohol or drug abuse patient.[facility] the event this information is protected by the Federal Confidentiality of Alcohol and Drug Abuse Patient Records regulations: The Federal rules restrict any use of the information to criminally investigate or prosecute any alcohol or drug abuse patient.[facility] the event this information is protected by the Federal Confidentiality of Alcohol and Drug Abuse Patient Records regulations: The Federal rules restrict any use of the information to criminally investigate or prosecute any alcohol or drug abuse patient.[facility] FOR RECORDS PERTAINING TO [...] BE BASED ON THE PRIMARY CLINICAL RECORDS. [facility] [employer] [facility]. provides no warranty or guarantee of the accuracy or completeness of information in this document.
--- NOTE | 2024-05-29 14:42 | ECG_ITS ---
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 Measurements Intervals [place] Rate: 124 P: 48 [place]: 152 QRS: 88 QRSD: 74 T: 46 QT: 282 QTc: 356 Interpretive Statements 1120 Sinus tachycardia 4068 Nonspecific [place] abnormality 8305 Short QTc interval 9150 abnormal ECG Compared to ECG 05/17/2024 11:14:26 No significant changes Electronically Signed On 05-29-2024 20:52:16 EDT by NICOLE POST M.D.
--- NOTE | 2024-05-29 14:44 | ED.GENADUL1 ---
Documented by User: JEFF Ruiz 05/29/24 17:55 HPI HPI - General Adult General Chief complaint: Dizziness Stated complaint: DIZINESS SOB Time Seen by Provider: 05/29/24 14:32 Source: patient Mode of arrival: walk-in Limitations: no limitations History of Present Illness HPI narrative: Patient is a 53-year-old female who is well-known to this emergency department who presents for a 2-day history of increasing dizziness and shortness of breath. She states her head has been hurting, she feels dizzy and off balance and states that she fell down 4 stairs yesterday. She denies any pain or injury from the fall. She states she has pain in her chest with coughing. She has not produced any sputum. She was admitted to this hospital for respiratory failure and hypoxia 1 month ago. She was placed on oxygen by nasal cannula at discharge and has been using oxygen at nasal cannula at 5 L since that time. She arrives on 5 L, not hypoxic. She reports increasing coughing. No hemoptysis. No objective fevers at home, she has had chills. Related Data Home Medications ?Medication ?Instructions ?Recorded ?Confirmed lamotrigine 200 mg tablet 200 mg PO .qhs 03/15/24 05/29/24 mirtazapine 7.5 mg tablet 7.5 mg PO BEDTIME 03/15/24 05/29/24 omeprazole 20 mg capsule,delayed 20 mg PO DAILY 03/15/24 05/29/24 release alprazolam 0.25 mg tablet 0.25 mg PO BID 05/05/24 05/05/24 amitriptyline 25 mg tablet 25 mg PO BEDTIME 05/05/24 05/29/24 olanzapine 10 mg tablet 10 mg PO .QHS 05/05/24 05/29/24 olanzapine 2.5 mg tablet 2.5 mg PO .qhs 05/05/24 05/29/24 tiotropium bromide 2.5 2 puff inhalation DAILY 05/05/24 05/29/24 mcg/actuation mist for inhalation (Spiriva Respimat) Previous Rx's ?Medication ?Instructions ?Recorded albuterol sulfate 90 mcg/actuation 2 inh inhalation Q6H PRN shortness 05/08/24 aerosol inhaler (Ventolin HFA) of breath or wheezing #6.7 grams ondansetron 4 mg disintegrating 4 mg PO Q6H PRN nausea and 05/08/24 tablet vomiting 4 days #10 tabs prednisone 20 mg tablet 20 mg PO DAILY #20 tabs 05/08/24 methocarbamol 750 mg tablet 750 mg PO Q6H PRN pain #30 tabs 05/17/24 Allergies Allergy/AdvReac Type Severity Reaction Status Date / Time No Known Drug Allergies Allergy Verified 05/29/24 14:32 Opioid HPI Opioid Management Most Recent Opioid Data: Last Pain Scale 8 05/29/24 17:42 05/29/24 Last Pain Assessment 05/29/24 18:42 Last MAR Pain Assessment 05/29/24 17:02 Last ORT Total Score 9 05/29/24 17:42 05/29/24 Last ORT Risk Category High Risk 05/29/24 17:42 05/29/24 Ur Phencyclidine Scrn Negative (NEGATIVE) 03/15/24 09:10 03/15/24 Review of Systems ROS Constitutional Reports: chills; Denies: fever Ears, nose, mouth, and throat Reports: nasal congestion; Denies: throat pain Respiratory Reports: shortness of breath, cough, wheezing and pain on inspiration Gastrointestinal Denies: nausea or vomiting Musculoskeletal Denies: back pain or neck pain Integumentary/Breast Denies: rash Neurological Reports: headache and dizziness; Denies: numbness in extremities or weakness in extremities Hematologic/Lymphatic Denies: easy bruising or easy bleeding [facility] Medical History Depression ?F32.A - Depression, unspecified (ICD-10) Bipolar 2 disorder ?F31.81 - Bipolar II disorder (ICD-10) Bipolar 1 disorder ?F31.9 - Bipolar disorder, unspecified (ICD-10) History of posttraumatic stress disorder (PTSD) ?Z86.59 - Personal history of other mental and behavioral disorders (ICD-10) Panic disorder ?F41.0 - Panic disorder [episodic paroxysmal anxiety] (ICD-10) COPD (chronic obstructive pulmonary disease) ?J44.9 - Chronic obstructive pulmonary disease, unspecified (ICD-10) Surgical History History of hysterectomy ?Z90.710 - Acquired absence of both cervix and uterus (ICD-10) History of cholecystectomy ?Z90.49 - Acquired absence of other specified parts of digestive tract (ICD-10) Hx of tonsillectomy ?Z90.89 - Acquired absence of other organs (ICD-10) History of appendectomy ?Z90.49 - Acquired absence of other specified parts of digestive tract (ICD-10) Family History Other Family history of CHF (congestive heart failure) Family history of COPD (chronic obstructive pulmonary disease) Family history of hypertension Social History (Updated 05/29/24 @ 18:13 by Kirsten Benedict) Within the past year, how often did you have a drink containing alcohol: never Within the past year, how often did you have six or more drinks on one occasion: never Score interpretation: A score less than 3 is consistent with normal alcohol consumption. 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 Known occupational exposures/hazards: No Highest level of school completed/degree received: 11th grade Do you want help with school or training: No Are you now , , , , never or living with a partner: In a typical week, how many times do you talk on the telephone with family, friends, or neighbors: 3 or more times per week How often do you get together with friends or relatives: 3 or more times per week How often do you attend restorationism or sabianist services: never Do you belong to any clubs or organizations such as restorationism groups unions, fraternal or athletic groups, or school groups: no Total score: 2 Score interpretation: A score of greater than or equal to 2 indicates the lowest level of social isolation. Little interest or pleasure in doing things: not at all Feeling down, depressed, or hopeless: not at all Feel stressed/tense/nervous/anxious/difficulty sleeping: not at all Do you think of yourself as: straight/heterosexual Gender Identity: female Exam Narrative Exam Narrative: Gen.: Awake, alert, in no distress Head: Normocephalic, atraumatic ENT: Moist mucous membranes Respiratory: No respiratory distress, inspiratory and expiratory wheezing Cardio: Tachycardia Gastrointestinal: Abdomen is soft, nondistended and nontender to palpation Extremities: Moves extremities equally Psych: Normal mood and affect Neuro: No focal neuro deficit Skin: Warm, dry, intact Constitutional Vital Signs, click to edit/add: Last Vital Signs Temp 97.7 F 05/29/24 17:42 Pulse 108 H 05/29/24 18:00 Resp 18 05/29/24 18:00 BP 115/75 05/29/24 17:42 Pulse Ox 97 05/29/24 17:42 O2 Del Method Nasal Cannula 05/29/24 17:42 O2 Flow Rate 4 05/29/24 17:42 Course Vital Signs Vital signs: Vital Signs Pulse Rate 122 H 05/29/24 14:30 Respiratory Rate 27 H 05/29/24 14:30 Pulse Oximetry 97 05/29/24 14:30 Temperature 97.7 F 05/29/24 17:42 Pulse Rate 108 H 05/29/24 18:00 Respiratory Rate 18 05/29/24 18:00 Blood Pressure 115/75 05/29/24 17:42 Pulse Oximetry 97 05/29/24 17:42 Oxygen Delivery Method Nasal Cannula 05/29/24 17:42 Oxygen Delivery Flow Rate 4 05/29/24 17:42 Medical Decision Making MDM Narrative Medical decision making narrative: Patient is not hypoxic on her baseline oxygen at nasal cannula. She was given albuterol breathing treatment, IV fluids, Solu-Medrol. Laboratory studies reviewed and noted showing mild leukocytosis, multifocal pneumonia noted on chest x-ray. Patient had a CT angio of the chest in this emergency department [address] of the brain and C-spine were performed due to dizziness and questionable fall yesterday. Blood cultures are pending. She was given IV Levaquin for coverage of multifocal pneumonia. Patient was given a 30 mg/kg bolus of IV fluids. Tylenol given for headache. She is negative for flu and COVID. She will be admitted to hospitalist for further evaluation and treatment. She is hemodynamically stable at time of admission. SUPERVISED APC VISIT, PHYSICIAN ATTESTATION: Based on the medical record the care appears appropriate. ? Medical Records Medical records reviewed: Yes I reviewed the patient's medical records Lab Data Lab results reviewed: Yes I reviewed the patient's lab results Labs: Lab Results 05/29/24 05/29/24 05/29/24 Range/Units 15:05 15:10 15:15 WBC 12.0 H (4.0-11.0) 10^3/uL RBC 3.65 L (4.20-5.40) 10^6/uL Hgb 10.8 L (12.0-16.0) g/dL Hct 33.6 L (36.0-48.0) % MCV 92.1 (81.0-99.0) fL MCH 29.6 (26.7-34.0) pg MCHC 32.1 (29.9-35.2) g/dL RDW 13.6 (11.0-15.0) % Plt Count 326 (150-450) 10^3/uL MPV 11.3 (9.5-13.5) fL Neut % (Auto) 78.0 H (43.0-75.0) % Lymph % (Auto) 13.0 L (20.5-60.0) % Daniels % (Auto) 6.9 (1.7-12.0) % Eos % (Auto) 1.3 (0.9-7.0) % Baso % (Auto) 0.3 (0.2-2.0) % Neut # (Auto) 9.3 H (1.4-6.5) 10^3/uL Lymph # (Auto) 1.6 (1.2-3.8) 10^3/uL Daniels # (Auto) 0.8 (0.3-0.8) 10^3/uL Eos # (Auto) 0.2 (0.0-0.7) 10^3/uL Baso # (Auto) 0.0 (0.0-0.1) 10^3/uL Abs Immat Gran (auto) 0.06 H (0.00-0.03) 10^3/uL Imm/Tot Granulo (auto) 0.5 (0.0-0.5) % PT 11.4 (9.0-11.6) sec INR 1.08 VBG pH 7.413 (7.330-7.430) VBG pCO2 48.2 (40.0-52.0) mmHg Sodium 137 (136-145) mmol/L Potassium 3.2 L (3.5-5.1) mmol/L Chloride 99 (98-107) mmol/L Carbon Dioxide 32.0 (21.0-32.0) mmol/L Anion Gap 9.2 BUN 5.0 L (7.0-18.0) mg/dL Creatinine 1.19 H (0.55-1.02) mg/dL Est GFR ( Amer) 57 L (>=60 mL/min/1.73m^2) Est GFR (Non-Af Amer) 47 L (>=60 mL/min/1.73m^2) BUN/Creatinine Ratio 4.2 Glucose 104 (74-106) mg/dL Lactate 1.0 (0.4-2.0) mmol/L Calcium 9.0 (8.5-10.1) mg/dL Magnesium 2.0 (1.8-2.4) mg/dL Total Bilirubin 0.6 (0.2-1.0) mg/dL AST 14 L (15-37) U/L ALT 20 (14-59) U/L Alkaline Phosphatase 82 (46-116) U/L Troponin I High Sens <4.0 L (4.0-51.3) pg/mL NT-Pro-B Natriuret Pep 44.0 (<=900.0) pg/mL Total Protein 7.4 (6.4-8.2) g/dL Albumin 2.8 L (3.4-5.0) g/dL Globulin 4.6 g/dL Albumin/Globulin Ratio 0.6 Influenza Type A Ag Negative Influenza Type B Ag Negative SARS-CoV-2 Ag (CV2AG) Negative (NEGATIVE) Imaging Data CT scan - head: Attestation: I have reviewed the pertinent imaging results. Radiologist's impression: CT head, cervical spine XR chest Discharge Plan Discharge Chief Complaint: Dizziness Clinical Impression: Multifocal pneumonia, Shortness of breath, Dizziness, Sepsis Patient Disposition: Admitted As Inpatient Time of Disposition Decision: 16:57 Discharge Date/Time: 05/29/24 18:10 Documented by User: Medardo Roberts MD 05/29/24 19:24 HPI HPI - General Adult General Chief complaint: Dizziness Stated complaint: DIZINESS SOB Time Seen by Provider: 05/29/24 14:32 Related Data Home Medications ?Medication ?Instructions ?Recorded ?Confirmed lamotrigine 200 mg tablet 200 mg PO .qhs 03/15/24 05/29/24 mirtazapine 7.5 mg tablet 7.5 mg PO BEDTIME 03/15/24 05/29/24 omeprazole 20 mg capsule,delayed 20 mg PO DAILY 03/15/24 05/29/24 release alprazolam 0.25 mg tablet 0.25 mg PO BID 05/05/24 05/05/24 amitriptyline 25 mg tablet 25 mg PO BEDTIME 05/05/24 05/29/24 olanzapine 10 mg tablet 10 mg PO .QHS 05/05/24 05/29/24 olanzapine 2.5 mg tablet 2.5 mg PO .qhs 05/05/24 05/29/24 tiotropium bromide 2.5 2 puff inhalation DAILY 05/05/24 05/29/24 mcg/actuation mist for inhalation (Spiriva Respimat) Previous Rx's ?Medication ?Instructions ?Recorded albuterol sulfate 90 mcg/actuation 2 inh inhalation Q6H PRN shortness 05/08/24 aerosol inhaler (Ventolin HFA) of breath or wheezing #6.7 grams ondansetron 4 mg disintegrating 4 mg PO Q6H PRN nausea and 05/08/24 tablet vomiting 4 days #10 tabs prednisone 20 mg tablet 20 mg PO DAILY #20 tabs 05/08/24 methocarbamol 750 mg tablet 750 mg PO Q6H PRN pain #30 tabs 05/17/24 Allergies Allergy/AdvReac Type Severity Reaction Status Date / Time No Known Drug Allergies Allergy Verified 05/29/24 14:32 Opioid HPI Opioid Management Most Recent Opioid Data: Last Pain Scale 8 05/29/24 17:42 05/29/24 Last Pain Assessment 05/29/24 18:42 Last MAR Pain Assessment 05/29/24 17:02 Last ORT Total Score 9 05/29/24 17:42 05/29/24 Last ORT Risk Category High Risk 05/29/24 17:42 05/29/24 Ur Phencyclidine Scrn Negative (NEGATIVE) 03/15/24 09:10 03/15/24 [facility] Medical History Depression ?F32.A - Depression, unspecified (ICD-10) Bipolar 2 disorder ?F31.81 - Bipolar II disorder (ICD-10) Bipolar 1 disorder ?F31.9 - Bipolar disorder, unspecified (ICD-10) History of posttraumatic stress disorder (PTSD) ?Z86.59 - Personal history of other mental and behavioral disorders (ICD-10) Panic disorder ?F41.0 - Panic disorder [episodic paroxysmal anxiety] (ICD-10) COPD (chronic obstructive pulmonary disease) ?J44.9 - Chronic obstructive pulmonary disease, unspecified (ICD-10) Surgical History History of hysterectomy ?Z90.710 - Acquired absence of both cervix and uterus (ICD-10) History of cholecystectomy ?Z90.49 - Acquired absence of other specified parts of digestive tract (ICD-10) Hx of tonsillectomy ?Z90.89 - Acquired absence of other organs (ICD-10) History of appendectomy ?Z90.49 - Acquired absence of other specified parts of digestive tract (ICD-10) Family History Other Family history of CHF (congestive heart failure) Family history of COPD (chronic obstructive pulmonary disease) Family history of hypertension Social History (Updated 05/29/24 @ 18:13 by Kirsten Benedict) Within the past year, how often did you have a drink containing alcohol: never Within the past year, how often did you have six or more drinks on one occasion: never Score interpretation: A score less than 3 is consistent with normal alcohol consumption. 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 Known occupational exposures/hazards: No Highest level of school completed/degree received: 11th grade Do you want help with school or training: No Are you now , , , , never or living with a partner: In a typical week, how many times do you talk on the telephone with family, friends, or neighbors: 3 or more times per week How often do you get together with friends or relatives: 3 or more times per week How often do you attend restorationism or sabianist services: never Do you belong to any clubs or organizations such as restorationism groups unions, fraternal or athletic groups, or school groups: no Total score: 2 Score interpretation: A score of greater than or equal to 2 indicates the lowest level of social isolation. Little interest or pleasure in doing things: not at all Feeling down, depressed, or hopeless: not at all Feel stressed/tense/nervous/anxious/difficulty sleeping: not at all Do you think of yourself as: straight/heterosexual Gender Identity: female Exam Constitutional Vital Signs, click to edit/add: Last Vital Signs Temp 97.7 F 05/29/24 17:42 Pulse 108 H 05/29/24 18:00 Resp 18 05/29/24 18:00 BP 115/75 05/29/24 17:42 Pulse Ox 97 05/29/24 17:42 O2 Del Method Nasal Cannula 05/29/24 17:42 O2 Flow Rate 4 05/29/24 17:42 Course Vital Signs Vital signs: Vital Signs Pulse Rate 122 H 05/29/24 14:30 Respiratory Rate 27 H 05/29/24 14:30 Pulse Oximetry 97 05/29/24 14:30 Temperature 97.7 F 05/29/24 17:42 Pulse Rate 108 H 05/29/24 18:00 Respiratory Rate 18 05/29/24 18:00 Blood Pressure 115/75 05/29/24 17:42 Pulse Oximetry 97 05/29/24 17:42 Oxygen Delivery Method Nasal Cannula 05/29/24 17:42 Oxygen Delivery Flow Rate 4 05/29/24 17:42 Medical Decision Making MDM Narrative Medical decision making narrative: Patient is not hypoxic on her baseline oxygen at nasal cannula. She was given albuterol breathing treatment, IV fluids, Solu-Medrol. Laboratory studies reviewed and noted showing mild leukocytosis, multifocal pneumonia noted on chest x-ray. Patient had a CT angio of the chest in this emergency department [address] of the brain and C-spine were performed due to dizziness and questionable fall yesterday. Blood cultures are pending. She was given IV Levaquin for coverage of multifocal pneumonia. Patient was given a 30 mg/kg bolus of IV fluids. Tylenol given for headache. She is negative for flu and COVID. She will be admitted to hospitalist for further evaluation and treatment. She is hemodynamically stable at time of admission. SUPERVISED APC VISIT, PHYSICIAN ATTESTATION: Based on the medical record the care appears appropriate. I, Dr Roberts, have reviewed the above progress note and course of action in the ER; agree with the above. I have personally seen and evaluated this patient, gone over history and physical, and discussed disposition and treatment plan with the patient. PA ? Lab Data Labs: Lab Results 05/29/24 05/29/24 05/29/24 Range/Units 15:05 15:10 15:15 WBC 12.0 H (4.0-11.0) 10^3/uL RBC 3.65 L (4.20-5.40) 10^6/uL Hgb 10.8 L (12.0-16.0) g/dL Hct 33.6 L (36.0-48.0) % MCV 92.1 (81.0-99.0) fL MCH 29.6 (26.7-34.0) pg MCHC 32.1 (29.9-35.2) g/dL RDW 13.6 (11.0-15.0) % Plt Count 326 (150-450) 10^3/uL MPV 11.3 (9.5-13.5) fL Neut % (Auto) 78.0 H (43.0-75.0) % Lymph % (Auto) 13.0 L (20.5-60.0) % Daniels % (Auto) 6.9 (1.7-12.0) % Eos % (Auto) 1.3 (0.9-7.0) % Baso % (Auto) 0.3 (0.2-2.0) % Neut # (Auto) 9.3 H (1.4-6.5) 10^3/uL Lymph # (Auto) 1.6 (1.2-3.8) 10^3/uL Daniels # (Auto) 0.8 (0.3-0.8) 10^3/uL Eos # (Auto) 0.2 (0.0-0.7) 10^3/uL Baso # (Auto) 0.0 (0.0-0.1) 10^3/uL Abs Immat Gran (auto) 0.06 H (0.00-0.03) 10^3/uL Imm/Tot Granulo (auto) 0.5 (0.0-0.5) % PT 11.4 (9.0-11.6) sec INR 1.08 VBG pH 7.413 (7.330-7.430) VBG pCO2 48.2 (40.0-52.0) mmHg Sodium 137 (136-145) mmol/L Potassium 3.2 L (3.5-5.1) mmol/L Chloride 99 (98-107) mmol/L Carbon Dioxide 32.0 (21.0-32.0) mmol/L Anion Gap 9.2 BUN 5.0 L (7.0-18.0) mg/dL Creatinine 1.19 H (0.55-1.02) mg/dL Est GFR ( Amer) 57 L (>=60 mL/min/1.73m^2) Est GFR (Non-Af Amer) 47 L (>=60 mL/min/1.73m^2) BUN/Creatinine Ratio 4.2 Glucose 104 (74-106) mg/dL Lactate 1.0 (0.4-2.0) mmol/L Calcium 9.0 (8.5-10.1) mg/dL Magnesium 2.0 (1.8-2.4) mg/dL Total Bilirubin 0.6 (0.2-1.0) mg/dL AST 14 L (15-37) U/L ALT 20 (14-59) U/L Alkaline Phosphatase 82 (46-116) U/L Troponin I High Sens <4.0 L (4.0-51.3) pg/mL NT-Pro-B Natriuret Pep 44.0 (<=900.0) pg/mL Total Protein 7.4 (6.4-8.2) g/dL Albumin 2.8 L (3.4-5.0) g/dL Globulin 4.6 g/dL Albumin/Globulin Ratio 0.6 Influenza Type A Ag Negative Influenza Type B Ag Negative SARS-CoV-2 Ag (CV2AG) Negative (NEGATIVE) ECG Data Attestation: I personally reviewed and interpreted this ECG as follows: (EKG interpretation. Sinus tachycardia at 124. Normal axis deviation, no acute ST elevation, no acute ectopy. QTc of 356. nonspecific ST changes.) Discharge Plan Discharge Chief Complaint: Dizziness Clinical Impression: Multifocal pneumonia, Shortness of breath, Dizziness, Sepsis Patient Disposition: Admitted As Inpatient Time of Disposition Decision: 16:57 Discharge Date/Time: 05/29/24 18:10
[2024-05-29] MEDS: 0.9 % SODIUM CHLORIDE 1,000 ML 999 ML IV (15:18)
[2024-05-29] MEDS: METHYLPREDNISOLONE SOD SUCC PF 125 MG/2 ML VIAL IVP (15:20)
[2024-05-29 15:23] LABS: Basophils Percent Auto 0.3 % (0.2-2.0); Eosinophils Absolute Auto 0.2 10^3/uL (0.0-0.7); Eosinophils Percent Auto 1.3 % (0.9-7.0); Hematocrit 33.6 % (36.0-48.0); Hemoglobin 10.8 g/dL (12.0-16.0); Immature Granulocytes Abs Auto 0.06 10^3/uL (0.00-0.03); Immature Granulocytes Pct Auto 0.5 % (0.0-0.5); Lymphocytes Absolute Auto 1.6 10^3/uL (1.2-3.8); Mean Corpuscular HGB Conc 32.1 g/dL (29.9-35.2); Mean Corpuscular Hemoglobin 29.6 pg (26.7-34.0); Mean Corpuscular Volume 92.1 fL (81.0-99.0); Mean Platelet Volume 11.3 fL (9.5-13.5); Monocytes Absolute Auto 0.8 10^3/uL (0.3-0.8); Monocytes Percent Auto 6.9 % (1.7-12.0); Neutrophils Absolute Auto 9.3 10^3/uL (1.4-6.5); Platelet Count 326 10^3/uL (150-450); Red Blood Count 3.65 10^6/uL (4.20-5.40); Red Cell Distribution Width 13.6 % (11.0-15.0)
[2024-05-29] MEDS: ALBUTEROL SULFATE 2.5 MG/3 ML VIAL NEB IH (15:25)
[2024-05-29 15:36] LABS: Influenza Virus A Antigen Negative; Influenza Virus B Antigen Negative; Internal Control Within Normal Limits; SARS-CoV-2 Ag NEGATIVE (NEGATIVE)
[2024-05-29 15:42] LABS: PCO2 VBG 48.2 mmHg (40.0-52.0); pH VBG 7.413 (7.330-7.430)
[2024-05-29 16:05] LABS: Alanine Aminotransferase 20 U/L (14-59); Albumin Globulin Ratio 0.6; Albumin Level 2.8 g/dL (3.4-5.0); Alkaline Phosphatase 82 U/L (46-116); Anion Gap 9.2; Aspartate Amino Transferase 14 U/L (15-37); BUN Creatinine Ratio 4.2; Bilirubin Total 0.6 mg/dL (0.2-1.0); Chloride 99 mmol/L (98-107); Estimated GFR (African America 57 (>=60 mL/min/1.73m^2); Estimated GFR (Non-African Ame 47 (>=60 mL/min/1.73m^2); Globulin 4.6 g/dL; Glucose 104 mg/dL (74-106); Potassium 3.2 mmol/L (3.5-5.1); Sodium 137 mmol/L (136-145); Total Protein 7.4 g/dL (6.4-8.2); Troponin I High Sensitivity <4.0 pg/mL (4.0-51.3)
[2024-05-29 16:17] LABS: INR 1.08; Prothrombin Time 11.4 sec (9.0-11.6)
[2024-05-29] MEDS: POTASSIUM CHLORIDE 10 MEQ ER TABLET 40 MEQ PO (16:37)
[2024-05-29] MEDS: LEVOFLOXACIN IN DEXTROSE 5 % 750 MG/150 ML PREMIX 100 MG IV (16:38)
[2024-05-29] MEDS: ACETAMINOPHEN 325 MG TABLET 650 MG PO (17:02)
[2024-05-29] MEDS: 0.9 % SODIUM CHLORIDE 1,000 ML 1000 ML IV (17:03)
--- OUTSIDE RECORDS SUMMARY | 2024-05-29 17:40 | XMS_ITS | CCD ---
Author Organization [facility] Care Team Providers Care Sign Painter Name Role Phone Cristina Iqbal CNP Primary Care Provider [phone] Vipin Pina Attending Unavailable Roshni Werner Attending Unavailable Cristina Iqbal CNP Primary Care Provider [phone] CRISTINA IQBAL Primary Care Unavailable JENNY, ALESSANDROENDER [...] Unavailable CRISTINA IQBAL Primary Care Unavailable TIFFANI MOARLES Referring Unavailable AICHHOLZ, CRISTINA ALEE Primary Care Unavailable TIFFANI MORALES Referring Unavailable TIFFANI MORALES Attending Unavailable [facility], CRISTINA ALEE Primary Care Unavailable YAN GARCIA JR Attending Unavailable [facility], CRISTINA ALEE Primary Care Unavailable ANASTASIYA MOSQUEDA Referring Unavailable [facility], [facility] Primary Care Unavailable ANNELISE FRAZIER Admitting Unavailable ANNELISE FRAZIER Attending Unavailable ANNELISE FRAZIER Consulting Unavailable BELEN REGAN Consulting Unavailable IRINA SEGURA Admitting Unavailable IRINA SEGURA Attending Unavailable [facility], [facility] Primary Care Unavailable MISC, DR DECKER Consulting Unavailable GEHLOT, UPENDER Admitting Unavailable GEHLOT, UPENDER Attending Unavailable [facility], [facility] Referring Unavailable [facility], [facility] Primary Care Unavailable GEHLOT, UPENDER Consulting Unavailable BENEDICT, DR RYDER Admitting Unavailable BENEDICT, DR RYDER Attending Unavailable [facility], [facility] Primary Care Unavailable BENEDICT, DR RYDER Consulting Unavailable MISC, DR DECKER Admitting Unavailable MISC, DR DECKER Attending Unavailable AICHOLZ, [facility] Primary Care Unavailable MISC, DR DECKER Consulting Unavailable [facility], [facility] Primary Care Unavailable PAY ., DR ZULUAGA Admitting Unavailable PAY ., DR ZULUAGA Attending Unavailable PAY ., DR ZULUAGA Consulting Unavailable CHITRA ALFARO Consulting Unavailable [facility], [facility] Primary Care Unavailable PAY ., DR ZULUAGA Admitting Unavailable PAY ., DR ZULUAGA Attending Unavailable ZIEBER, DR RYDER R Consulting Unavailable PAY ., DR ZULUAGA Consulting Unavailable [facility], [facility] Primary Care Unavailable GELA WESLEY Admitting Unavailable GELA WESLEY Attending Unavailable BARBI HENRY Consulting Unavailable GELA WESLEY Consulting Unavailable [facility] Primary Care Physician [phone] Lala Zarco Primary Care Physician [facility] Primary Care Unavailable Sandoval Rae [...] bedtime), # 30 tab(s), Refills(s) 5, Pharmacy: [facility]/pharmacy #[id number], 169, cm, 03/23/24 13:17:00 EST, [...] day(s), # 10 cap(s), Refills(s) 0, Pharmacy: [facility]/pharmacy #[id number], 172, cm, 09/24/23 13:02:00 EDT, Height/Length Dosing, 61.2, kg, 09/24/23 13:02:00 EDT, Weight Dosing Start Date: 09/24/23 Stop Date: 09/29/23 Status: Ordered cholestyramine resin 4000 mg powder for oral suspension (5 sources) Bile Acid Sequestrant Start: Questran 4 g/9 g oral powder = 1 packet(s), Oral, BID, # 60 EA, Refills(s) 2, [id number], cm, 01/16/24 10:14:00 EDT, Height/Length Dosing, 63.9, kg, 01/16/24 10:14:00 EDT, Weight Dosing Start Date: 01/16/24 Status: Ordered cloNIDine hydrochloride 0.2 mg oral tablet (20 sources) Central alpha-2 Adrenergic Agonist Start: End: take 1 tablet by mouth at bedtime cloNIDine 0.2 mg Tab 0.2 mg = 1 tab(s), Oral, Bedtime, # 30 tab(s), Refills(s) 1, [id number] 173, cm, 05/24/20 14:42:00 EST, Height/Length Dosing, 50.1, kg, 05/24/20 14:42:00 EST, Weight Dosing Start Date: 05/24/20 Status: Ordered colestipol hydrochloride 1000 mg oral tablet (5 sources) Bile Acid Sequestrant Start: take 2 tablets by mouth twice daily colestipol 1 g Tab 2 gm = 2 tab(s), Oral, BID, with a full glass of water, # 120 tab(s), Refills(s) 1, [id number] 169, cm, 01/16/24 10:14:00 EDT, [...] anxiety, # 30 tab(s), Refills(s) 0, Pharmacy: [facility]/pharmacy #[id number], 173, cm, 04/26/20 13:07:00 EST, [...] AFTERNOON, # 30 tab(s), Refills(s) 0, Pharmacy: [facility] STORE [id number], 169.7, cm, 11/26/23 15:32:00 EDT, Height/Length Dosing, [...] Bedtime, # 30 tab(s), Refills(s) 0, Pharmacy: [facility]/pharmacy #[id number], 169.7, cm, 10/03/23 9:38:00 [...] DAY, # 30 cap(s), Refills(s) 0, Pharmacy: [id number], 169, cm, 02/25/24 9:14:00 EST, Height/Length Dosing, 62.2, kg, 02/25/24 9:14:00 EST, Weight Dosing Start Date: 03/23/24 Status: Ordered Start: 02-24-2024 take 1 capsule by [facility] once daily omeprazole 20 mg Cap-DR See Instructions, TAKE 1 CAPSULE BY MOUTH EVERY DAY, # 30 cap(s), Refills(s) 0, Pharmacy: [id number], 169, cm, 02/21/24 8:47:00 EST, Height/Length Dosing, 62.2, kg, 02/21/24 8:47:00 EST, Weight Dosing Start Date: 02/24/24 Status: Ordered Start: 01-20-2024 take 1 capsule by [facility] once daily omeprazole 20 mg Cap-DR See Instructions, TAKE 1 CAPSULE BY MOUTH EVERY DAY, # 30 cap(s), Refills(s) 0, Pharmacy: [id number], 169, cm, 01/16/24 10:14:00 EDT, Height/Length Dosing, 63.9, kg, 01/16/24 10:14:00 EDT, Weight Dosing Start Date: 01/20/24 Status: Ordered Start: 12-04-2023 take [address] [facility] once daily omeprazole 20 mg Cap-DR See Instructions, TAKE 1 CAPSULE BY MOUTH EVERY DAY, # 30 cap(s), Refills(s) 0, [id number] 169.7, cm, 11/26/23 15:32:00 EDT, [...] Nausea, # 30 tab(s), Refills(s) 0, [id number] 169, cm, 02/25/24 9:14:00 EST, Height/Length Dosing, 62.2, kg, 02/25/24 9:14:00 EST, Weight Dosing Start Date: 02/27/24 Status: Ordered Start: 02-18-2024 ondansetron 8 mg Dis Tab See Instructions, DISSOLVE 1 TABLET ON THE TONGUE EVERY 8 HOURS NEEDED FOR NAUSEA AND VOMITING, # 24 tab(s), Refills(s) 0, [id number] 169, cm, 02/18/24 11:55:00 EST, Height/Length Dosing, 61.8, kg, 02/18/24 11:55:00 EST, Weight Dosing Start Date: 02/18/24 Status: Ordered Start: 12-20-2023 take 1 tablet by [facility] every six hours as needed for nausea ondansetron 4 mg Dis Tab 4 mg = 1 tab(s), Oral, q6hr, PRN Nausea/Vomiting, # 30 tab(s), Refills(s) 0, [id number] 169.7, cm, 11/26/23 15:32:00 EDT, [...] Nausea, # 10 tab(s), Refills(s) 0, Pharmacy: [facility]/pharmacy #[id number], 173, cm, 04/26/20 13:07:00 EST, [...] by mouth once daily. polyethylene glycol 3350 46886 mg powder for oral solution (18 sources) [...] TID, # 15 tab(s), Refills(s) 1, Pharmacy: [facility]/pharmacy #[id number], 169, cm, 03/23/24 13:17:00 EST, Height/Length Dosing, 64.9, kg, 03/23/24 13:17:00 EST, Weight Dosing Start Date: 03/23/24 Status: Ordered Start: 09-24-2023 take 1 tablet by shahzad three times daily promethazine 25 mg Tab 25 mg = 1 tab(s), Oral, TID, # 15 tab(s), Refills(s) 0, Pharmacy: [facility]/pharmacy #[id number], 172, cm, 09/24/23 13:02:00 EDT, Height/Length Dosing, 61.2, kg, 09/24/23 13:02:00 EDT, Weight Dosing Start Date: 09/24/23 Status: Ordered Start: 12-03-2021 take 1 tablet by shahzad every four hours promethazine 25 mg Tab 25 mg = 1 tab(s), Oral, q4hr, # 12 tab(s), Refills(s) 0, Pharmacy: [facility]/pharmacy #[id number], 172.9, cm, 12/03/21 10:15:00 EDT, Height/Length Dosing, 46.2, kg, 12/03/21 10:15:00 EDT, Weight Dosing Start Date: 12/03/21 Status: Ordered Start: 12-03-2021 Phenergan 25 m g Supp 25 mg = 1 supp, Rectal, q6hr, PRN as needed for nausea, Insert one per rectum every six hours as needed for nausea and vomiting, # 6 EA, Refills(s) 0, Pharmacy: [facility]/pharmacy #[id number], 172.9, cm, 12/03/21 10:15:00 [...] day(s), # 56 tab(s), Refills(s) 0, [id number] 169, cm, 02/21/24 8:47:00 EST, [...] Daily, # 4 gm, Refills(s) 11, Pharmacy: [facility]/pharmacy #[id number], 169.7, cm, 11/26/23 15:32:00 [...] TID, # 15 tab(s), Refills(s) 0, Pharmacy: [facility]/pharmacy #[id number], 172, cm, 09/24/23 13:02:00 [...] Nausea/Vomiting, # 24 tab(s), Refills(s) 0, Pharmacy: [facility]/pharmacy #[id number], 169, cm, 03/23/24 13:17:00 EST, Height/Length Dosing, 64.9, kg, 03/23/24 13:17:00 EST, Weight Dosing Start Date: 03/23/24 Status: Ordered Start: 02-12-2024 take 1 tablet under the tongue every eight hours as needed for nausea Zofran ODT 8 mg Tab-Dis 8 mg = 1 tab(s), SubLingual, q8hr, PRN Nausea/Vomiting, # 24 tab(s), Refills(s) 0, [id number] 169, cm, 01/16/24 10:14:00 EDT, Height/Length Dosing, 63.9, kg, 01/16/24 10:14:00 EDT, Weight Dosing Start Date: 02/12/24 Status: Ordered Start: 01-23-2024 take 1 tablet under the tongue every eight hours as needed for nausea Zofran ODT 8 mg Tab-Dis 8 mg = 1 tab(s), SubLingual, q8hr, PRN Nausea/Vomiting, # 24 tab(s), Refills(s) 0, [id number] 169, cm, 01/16/24 10:14:00 EDT, [...] sources) H/O: high risk medication; Translations: [Other skilled nursing (current) drug therapy] Episodic Other and unspecified [...] 2021 Episodic Other aftercare (7 sources) Other skilled nursing (current) drug therapy; Translations: [Other skilled nursing (current) drug therapy] Onset: 09-19-2021 Episodic Other [...] BMI 23.0-23.9, adult Former smoker Pickup at [facility]/pharmacy #[id number] Changed albuterol (albuterol 0.083% Inh Misty 3 [...] 2 Inhalation Inhalation Every day Pharmacy Information [facility]/pharmacy #[id number]: [address] [employer], [place] [id number] [phone] Allergies No Known Allergies Problems Ongoing - [...] choosing us for your care. Normal [facility] Family Medicine Office/Clini c Noteon 05-12-2024 Family Medicine Office/Clinic Note Family Medicine Office/Clinic Note HPI Staff Sai is a 53 year old female presenting for TCM follow up TCM: Hospital: [facility] Admission date: 05/05/24 Discharge date: 05/08/24 [...] q6hr for wheezing, 60 EA, Refill(s) 1, [facility]/pharmacy #[id number], 169, cm, 05/12/24 10:51:00 EST, Height/Length Dosing, 68, kg, 05/12/24 10:51:00 EST, Weight Dosing 3. Former smoker (Z87.891: Personal history of nicotine dependence) continue not smoking Ordered: albuterol, 2.5 mg, 3 mL, Inhalation, q6hr for wheezing, 60 EA, Refill(s) 1, [facility]/pharmacy #[id number], 169, cm, 05/12/24 10:51:00 EST, Height/Length Dosing, 68, kg, 05/12/24 10:51:00 EST, Weight Dosing Orders: ondansetron, See Instructions, DISSOLVE 1 TABLET ON THE TONGUE EVERY 8 HOURS NEEDED FOR NAUSEA AND VOMITING, # 24 tab(s), Refills(s) 0, Pharmacy: [facility]/pharmacy #[id number], 169, cm, 02/18/24 11:55:00 EST, Height/Length Dosing, 61.8, kg, 02/18/24 11:55:00 EST, Weight D... promethazine, See Instructions, TAKE 1 TABLET BY MOUTH THREE TIMES A DAY, # 30 tab(s), Refills(s) 1, Pharmacy: [facility]/pharmacy #[id number], 169, cm, 02/18/24 11:55:00 EST, Height/Length Dosing, 61.8, kg, 02/18/24 11:55:00 EST, Weight Dosing promethazine, 25 mg = 1 tab(s), Oral, TID, # 15 tab(s), Refills(s) 0, Pharmacy: [facility]/pharmacy #[id number], 169, cm, 01/16/24 10:14:00 [...] mcg/inh in (more content not included)... Normal [facility] Comment on above: Result Comment: Elec [...] Tetrahydrocannabinol (THC) dependence Refills: 5 Pickup at [facility]/pharmacy #[id number] Unchanged albuterol (albuterol 0.083% Inh Misty 3 [...] ACT 2 (more content not included)... Normal [facility] Gastroenterology Office/Clin ic Noteon 03-23-2024 Gastroenterology [...] bedtime), # 30 tab(s), Refills(s) 5, [id number] 169, cm, 03/23/24 13:17:00 EST, Height/Length Dosing, 64.9, kg, 03/23/24 13:17:00 EST, Weight Dosing 2. Epigastric pain (R10.13: Epigastric pain) Ordered: amitriptyline, 25 mg = 1 tab(s), Oral, Once a day (at bedtime), # 30 tab(s), Refills(s) 5, [id number] 169, cm, 03/23/24 13:17:00 EST, Height/Length Dosing, 64.9, kg, 03/23/24 13:17:00 EST, Weight Dosing 3. Chronic diarrhea (K52.9: Noninfective gastroenteritis and colitis, unspecified) Ordered: amitriptyline, 25 mg = 1 tab(s), Oral, Once a day (at bedtime), # 30 tab(s), Refills(s) 5, [id number] 169, cm, 03/23/24 13:17:00 EST, Height/Length Dosing, 64.9, kg, 03/23/24 13:17:00 EST, Weight Dosing 4. History of colon polyps (Z86.0100: Personal history of colon polyps, unspecified) Ordered: amitriptyline, 25 mg = 1 tab(s), Oral, Once a day (at bedtime), # 30 tab(s), Refills(s) 5, [id number], 169, cm, 03/23/24 13:17:00 EST, Height/Length Dosing, 64.9, kg, 03/23/24 13:17:00 EST, Weight Dosing 5. Schatzki's ring (K22.2: Esophageal obstruction) Ordered: amitriptyline, 25 mg = 1 tab(s), Oral, Once a day (at bedtime), # 30 tab(s), Refills(s) 5, Pharmacy: [facility]/pharmacy #[id number], 169, cm, 03/23/24 13:17:00 EST, Height/Length Dosing, 64.9, kg, 03/23/24 13:17:00 EST, Weight Dosing 6. 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 Tetrahydr (more content not included)... Normal [facility] Comment on above: Result Comment: Elec tronically Signed By: Butch SANDOVAL, Sandoval Frost\.br\Date and Time Signed: 03/23/24 13:45 EST Urine Cultureon 03-15-2024 Bacteria identified Cx Nom (U) 50,000 colonies/ml mixed bacterial skin contaminants including mixed gram negative bacilli - 2 Days PERFORMED BY: [place] [address] PATHOLOGIST ORIENTAL MEDICINE PRACTITIONER HARRIS CUELLAR M.D. Normal [facility] Comment on above: Performed By: #### C UU #### [address] Surgical Pathology Reporton 03-02-2024 [place] [address]- Surgical Pathology Report Collected Date/Time: 02/25/2024 10:41 [...] Entire specimen submitted in one cassette. () [facility] Microscopic Description Microscopic examination performed unless [...] characteristics were determined by the [facility] Surgical Pathology. They have not been cleared or approved by the US Food and Drug Administration. The FDA has determined that such clearance or approval is not necessary. These tests are used for clinical purposes. They should not be regarded as investigational or for research. Appropriate positive and negative controls are performed and are acceptable. [facility] Comment on above: Performed By: #### [id number] #### [facility] [address] [place] [address] Main OR Intraoperative Recor don 02-27-2024 Main OR Intraoperative Record Main OR Intraoperative Record IntraOp Document Type FT Summary Primary Physician: Sandoval Rae MD Finalized Date/Time: 02/27/24 07:51:23 Pt. Name: SAI PINEDA Domo SolomonB./Sex: 1970 Female Med Rec #: [id number] Physician: Sandoval Rae MD Financial #: [id number] Pt. Type: O Room/Bed: / Admit/Disch: 02/25/24 [...] Sandoval Allen RN, Chucho Calderon Role Performed PURCHASING MANAGER/SALES Surgeon - Primary Specialist Physician - Primary Time In 02/25/24 10:32:00 02/25/24 [...] Chucho Allen RN, Mouchli MD, Sandoval Frost, [facility], Luis Manuel Jacob Kirstyn K Time Out [...] Yes Le (more content not included)... Normal [facility] Discharge Instructionson Discharge Instructions Discharge Instructions [...] Historical (more content not included)... Normal [facility] Comment on above: Result Comment: [...] Diagnosis: Nausea, vomiting, and epigastric pain -EGD [facility] Main OR PACU II Recordon Main OR PACU II Record Main OR PACU II Record PACU Phase II Document Type FT Summary Primary Physician: Sandoval Rae MD Finalized Date/Time: 02/25/24 11:30:19 Pt. Name: SAI PINEDA /Sex: 1970 Female Med Rec #: [id number] Physician: Sandoval Rae MD Financial #: [id number] Pt. Type: O Room/Bed: / Admit/Disch: 02/25/24 [...] Signed By: Christin Hensley I 02/25/24 11:30 [facility] Main OR Preoperative Recordo n 02-25-2024 Main OR Preoperative Record Main OR Preoperative Record Holding Area Document Type FT Summary Primary Physician: Sandoval Rae MD Finalized Date/Time: 02/25/24 09:16:52 Pt. Name: SAI PINEDA/Sex: 1970 Female Med Rec #: [id number] Physician: Sandoval Rae MD Financial #: [id number] Pt. Type: O Room/Bed: / Admit/Disch: 02/25/24 [...] By: Mely Montilla RN 02/25/24 09:[address] [facility] Operative Reporton Operative Report Operative Report [...] day(s), # 56 tab(s), Refills(s) 0, [id number] 169, cm, 02/21/24 8:47:00 EST, Height/Length Dosing, 62.2, kg, 02/21/24 8:47:00 EST, Weight Dosing Questran 4 g/9 g oral powder: = 1 packet(s), Oral, BID, # 60 EA, Refills(s) 2, Pharmacy: [facility]/pharmacy #[id number], 169, cm, 01/16/24 10:14:00 EDT, Height/Length Dosing, 63.9, kg, 01/16/24 10:14:00 EDT, Weight Dosing Spiriva Respimat 60 ACT 2.5 mcg/inh inhalation aerosol: = 2 inh, Inhalation, Daily, # 4 gm, Refills(s) 11, [id number], 169.7, cm, 11/26/23 15:32:00 EDT, Height/Length Dosing, 62.1, kg, 11/26/23 15:32:00 EDT, Weight Dosing Zofran 4 mg Tab: 4 mg = 1 tab(s), Oral, q8hr, PRN Nausea, # 10 tab(s), Refills(s) 0, [id number], 173, cm, 04/26/20 13:07:00 EST, Height/Length Dosing, 52.8, kg, 04/26/20 13:07:00 EST, Weight Dosing Zofran ODT 4 mg Tab-Dis: 4 mg = 1 tab(s), Oral, TID, # 15 tab(s), Refills(s) 0, [id number], 172, cm, 09/24/23 13:02:00 EDT, Height/Length Dosing, 61.2, kg, 09/24/23 13:02:00 EDT, Weight Dosing Zofran ODT 8 mg Tab-Dis: 8 mg = 1 tab(s), SubLingual, q8hr, PRN Nausea/Vomiting, # 24 tab(s), Refills(s) 0, [id number], 169, cm, 01/16/24 10:14:00 EDT, Height/Length Dosing, 63.9, kg, 01/16/24 10:14:00 EDT, Weight Dosing cloNIDine 0.2 mg Tab: 0.2 mg = 1 tab(s), Oral, Bedtime, # 30 tab(s), Refills(s) 1, [id number], 173, cm, 05/24/20 14:42:00 EST, Height/Length Dosing, 50.1, kg, 05/24/20 14:42:00 EST, Weight Dosing colestipol 1 g Tab: 2 gm = 2 tab(s), Oral, BID, with a full glass of water, # 120 tab(s), Refills(s) 1, [id number] 169, cm, 01/16/24 10:14:00 EDT, Height/Length Dosing, 63.9, kg, 01/16/24 10:14:00 EDT, Weight Dosing hydrOXYzine hydrochloride 50 mg oral tablet: 50 mg = 1 tab(s), Oral, TID, PRN as needed for anxiety, # 30 tab(s), Refills(s) 0, [id number] 173, cm, 04/26/20 13:07:00 EST, Height/Length Dosing, 52.8, kg, 04/26/20 13:07:00 EST, Weight Dosing lamotrigine 25 mg Tab: See Instructions, TAKE 1 TABLET BY MOUTH EVERY DAY IN THE AFTERNOON, # 30 tab(s), Refills(s) 0, Pharmacy: [facility], 169.7, cm, 11/26/23 15:32:00 EDT, Height/Length Dosing, 62.1, kg, 11/26/23 15:32:00 EDT, Weight Dosing mirtazapine 7.5 mg oral tablet: 7.5 mg = 1 tab(s), Oral, Bedtime, # 30 tab(s), Refills(s) 0, [id number], 169.7, cm, 10/03/23 9:38:00 EDT, Height/Length Dosing, 62.5, kg, 10/03/23 9:38:00 EDT, Weight Dosing omeprazole 20 mg Cap-DR: See Instructions, TAKE 1 CAPSULE BY MOUTH EVERY DAY, # 30 cap(s), Refills(s) 0, Pharmacy: [facility] [id number], 169, cm, 02/21/24 8:47:00 EST, Height/Length Dosing, 62.2, kg, 02/21/24 8:47:00 EST, Weight Dosing ondansetron 4 mg Dis Tab: 4 mg = 1 tab(s), Oral, q6hr, PRN Nausea/Vomiting, # 30 tab(s), Refills(s) 0, [id number], 169.7, cm, 11/26/23 15:32:00 EDT, Height/Length Dosing, 62.1, kg, 11/26/23 15:32:00 EDT, Weight Dosing ondansetron 8 mg Dis Tab: See Instructions, DISSOLVE 1 TABLET ON THE TONGUE EVERY 8 HOURS NEEDED FOR NAUSEA AND VOMITING, # 24 tab(s), Refills(s) 0, [id number] 169, cm, 02/18/24 11:55:00 EST, Height/Length Dosing, 61.8, kg, 02/18/24 11:55:00 EST, Weight D... promethazine 25 mg Tab: 25 mg = 1 tab(s), Oral, TID, # 15 tab(s), Refills(s) 0, [id number] 169, cm, 01/16/24 10:14:00 EDT, Height/Length Dosing, 63.9, kg, 01/16/24 10:14:00 EDT, Weight Dosing promethazine 25 mg Tab: See Instructions, TAKE 1 TABLET BY MOUTH THREE TIMES A DAY, # 30 tab(s), Refills(s) 1, Pharmacy: [facility]/pharmacy #[id number], 169, cm, 02/18/24 11:55:00 EST, Height/Length Dosing, 61.8, kg, 02/18/24 11:55:00 EST, Weight Dosing Documented Medications Documented Protonix 40 mg Tab-DR: Oral, 0 Refill(s), Refills(s) 0 Spiriva Respimat 10 ACT 2.5 mcg/inh inhalation aerosol: = 2 puff(s), Inhalation, Daily, Refi (more content not included)... Normal [facility] Comment on above: Result Comment: Elec tronically Signed By: Butch SANDOVAL, Sandoval Frost\.br\Date and Time Signed: 02/25/24 10:51 EST Other Comment: Linda mendosa Attachment - attachment storage system not supported [id number] Can be viewed in source systemMissing Attachment - attachment storage system not supported [id number] Can be viewed in source systemMissing Attachment - attachment storage system not supported [id number] Can be viewed in source systemMissing Attachment - attachment storage system not supported [id number] Can be viewed in source systemMissle[facility] Attachment - attachment storage system not supported [id number] Can be viewed in source systemMissing Attachment - attachment storage system not supported [id number] Can be viewed in source systemMissing Attachment - attachment storage system not supported [id number] Can be viewed in source systemMissing Attachment - attachment storage system not supported [id number] Can be viewed in source systemMissing Attachment - attachment storage system not supported [id number] Can be viewed in source systemMissing Attachment - attachment storage system not supported [id number] Can be viewed in source system Ambulatory [...] aerosol) (more content not included)... Normal [facility] Gastroenterology Office/Clin ic Noteon 02-21-2024 Gastroenterology [...] to discuss capsule. (Had one completed at [facility] 2021)- results below Last visit w/ Dr Rae History of Present Illness pt with weight loss, throw up, and diarrhea capsule endoscopy done at [facility] and was found to have stomach going [...] clips were successfully placed (MR conditional). Clip flash designer: Your Office Agent. There was no bleeding at the end of the maneuver. Exam of the jejunum was otherwise normal. Impression: - Atrophic mucosa. - Jejunal polyp(s). Resected a (more content not included)... Normal [facility] Comment on above: Result Comment: Elec [...] Someone Will Contact You Regarding These Appointments [facility] External Ambulatory Referral, Neurology, [place] office, 02/18/24 [...] NEEDED FOR NAUSEA AND VOMITING Pickup at [facility]/pharmacy #[id number] Unchanged ondansetron (Zofran 4 mg [...] MOUTH THREE TIMES A DAY Pickup at [facility]/pharmacy #6177 [id number] [address], [place] [phone] Allergies No Known Allergies Problems Ongoing - [...] history of (more content not included)... Normal [facility] Family Medicine Office/Clini c Noteon 02-18-2024 Family Medicine Office/Clinic Note Family Medicine Office/Clinic Note Chief Complaint N&V & Diarrhea HPI Staff Sai is a 53 year old female presenting with diarrhea, vomiting. AMILCAR 11/27/23 pt here for the same reason. Sent home with stool sample supplies. Pt did see [facility] 01/16/24 for diarrhea & N&V. Tx'd w/[facility] did order CTE, however pt no showed [...] neuro consult. her mother has dementia. Ordered: [facility] External Ambulatory Referral 2. Maternal family history of dementia (Z81.8: Family history of other mental and behavioral disorders) mother has dementia Ordered: [facility] External Ambulatory Referral 3. Nausea and vomiting [...] VOMITING, # 24 tab(s), Refills(s) 0, Pharmacy: [facility]/pharmacy #[id number], 169, cm, 02/18/24 11:55:00 EST, Height/Length Dosing, 61.8, kg, 02/18/24 11:55:00 EST, Weight D... promethazine, See Instructions, TAKE 1 TABLET BY MOUTH THREE TIMES A DAY, # 30 tab(s), Refills(s) 1, Pharmacy: [facility]/pharmacy #6177, 169, cm, 02/18/24 11:55:00 [...] Esophagogastroduodenoscopy (04/19 (more content not included)... Normal [facility] Comment on above: Result Comment: Elec [...] start: Years ago. Had capsule done at [facility] and surgery. Dr Tiffani Morales. Constant? Or [...] up, and diarrhea capsule endoscopy done at [facility] and was found to have stomach going [...] Oral, TID, (more content not included)... Normal [facility] Comment on above: Result Comment: Elec [...] to get in, will send referral to [facility] 2. Vomiting (R11.10: Vomiting, unspecified) pt is asking for refill on omeprazole 3. Smoker (F17.200: Nicotine dependence, unspecified, uncomplicated) consider not smoking 4. BMI 21.0-21.9, adult (Z68.21: Body mass index [BMI] 21.0-21.9, adult) BMI education given Orders: lamotrigine, See Instructions, TAKE 1 TABLET BY MOUTH EVERY DAY IN THE AFTERNOON, # 30 tab(s), Refills(s) 0, [id number], 169.7, cm, 10/03/23 9:38:00 EDT, Height/Length Dosing, 62.5, kg, 10/03/23 9:38:00 EDT, Weight Dosing lamotrigine, See Instructions, TAKE 1 TABLET EVERY MORNING, # 30 tab(s), Refills(s) 0, [facility], 169.7, cm, 10/03/23 9:38:00 EDT, Height/Length Dosing, 62.5, kg, 10/03/23 9:38:00 EDT, Weight Dosing lamotrigine, See Instructions, TAKE 1 TABLET BY MOUTH EVERY DAY IN THE AFTERNOON, # 30 tab(s), Refills(s) 0, Pharmacy: [facility] STORE [id number], 169.7, cm, 11/26/23 15:32:00 EDT, Height/Length Dosing, 62.1, kg, 11/26/23 15:32:00 EDT, Weight Dosing nitrofurantoin, 100 mg = 1 cap(s), Oral, BID, X 7 day(s), # 14 cap(s), Refills(s) 0, Pharmacy: [facility]/pharmacy #[id number], 169.7, cm, 11/26/23 15:32:00 EDT, Height/Length Dosing, 62.1, kg, 09/10/24 15:32:00 EDT, Weight Dosing omeprazole, 20 mg = 1 cap(s), Oral, Daily, # 30 cap(s), Refills(s) 0, Pharmacy: [facility]/pharmacy #[id number], 169.7, cm, 10/03/23 9:38:00 EDT, Height/Length Dosing, 62.5, kg, 10/03/23 9:38:00 EDT, Weight Dosing omeprazole, See Instructions, TAKE 1 CAPSULE BY MOUTH EVERY DAY, # 30 cap(s), Refills(s) 0, Pharmacy: [facility] STORE [id number], 169.7, cm, 11/26/23 15:32:00 EDT, Height/Length Dosing, 62.1, kg, 11/26/23 15:32:00 EDT, Weight Dosing tiotropium, = 2 inh, Inhalation, Daily, # 4 gm, Refills(s) 11, [id number], 169.7, cm, 11/26/23 15:32:00 EDT, [...] tab(s), Or (more content not included)... Normal [facility] Comment on above: Result Comment: Elec [...] hours as needed for Nausea/Vomiting Pickup at [facility]/pharmacy #6177 Unchanged ondansetron (Zofran 4 mg [...] 2 Puffs Inhalation Every day Pharmacy Information [facility]/pharmacy #6177: [address], [place] [phone] Allergies No Known Allergies Problems Ongoing - [...] for choosing us for your care. Normal [facility] ED Note-Physicianon 10-21-19 ED Note-Physician ED [...] NS 1000 ml Bolus, 1000 mL, IV [id number] [F] 25 mg + Sodium Chloride 0.9% [...] Oral, TID Follow-up With When Contact Information CHANEC SERRANO In 3 days 09/27/[address] [place] [phone] Sociall (1) Additional Instructions: Patient Education Urinary Tract [...] made to ensure accuracy, however, inadvertently computerized parer mistakes may be present. Appropriate healthcare PPE [...] to inadequa (more content not included)... Normal [facility] Comment on above: Result Comment: Elec [...] visit: month or so ago Last provider: [facility] Any recent labs: IN ER [facility] [...] adult 10/11/19 (more content not included)... Normal [facility] Comment on above: Result Comment: Elec [...] Locations R1: This test was performed at: [facility], [address] [place] [address], [phone] , [place], Normal [facility] Comment on above: Performed By: #### 2 [id number] ####[facility] [id number] [place] [address] CHEMISTRYOrdered By: SYSTEM SYSTEM on 09-24-2023 Albumin [...] that meet specific criteria set forth by [facility]. Epithelial cells.squamous Auto (Urine sed) [...] UA Auto SS Work Phone: Zi 05-08-2022 [facility] Telephone (GASTA5) SAI PINEDA ([id number]) 1970 F Date Time Provider Department 05/08/22 TIFFANI MORALES GASTA5 During your visit today, we recorded the following information about you: Eva Chong 05/08/2022 10:45 AM Signed 05/08/22 Patient calling to see if Dr Morales will write her a script for Zofran nausea medication strips. [phone] Eva Covarrubias, RN 05/11/2022 10:05 AM Signed [...] Fully Assessed Reason for Visit: Patient Question [2680] Order(s):ondansetron orally disintegrating (ZOFRAN ODT) 8 mg [...] Status:Closed by TIFFANI MORALES on 05/10/22 Normal [facility] COPPER, SERUM or PLASMAon Copper, Serum 129 ug/dL Normal 80-158 [facility] Comment on above: Result Comment: Dete ction Limit = 5 Performed By: #### C OPPER #### [facility] [address] [place] [address] Dr. Prince Olivas FATTY ACID PROFILEon 023 a-Linolenic Acid C18:3w3 81 nmol/mL Normal 20-200 [facility] Comment on above: Performed By: #### Marine MA2 #### [facility] [address] [place] [address] Dr. Prince Olivas Arachidic Acid C20:0 31 nmol/mL Normal 8-43 [facility] Comment on above: Performed By: #### Marine MA2 #### [facility] [address] [place] [address] Dr. Prince Olivas Arachidonic Acid, C20:4w6 943 nmol/mL Normal 310-1420 [facility] Comment on above: Performed By: #### Marine MA2 #### [facility] [address] [address] [address] Prince Olivas DHA, C22:6w3 85 nmol/mL Normal 45-365 [facility] Comment on above: Performed By: #### Marine MA2 #### [facility] [address] [address] [address] Prince Olivas Docosenoic Acid C22:1 5 nmol/mL Normal 1-10 [facility] Comment on above: Performed By: #### Marine MA2 #### [facility] [address] [address] [address] Prince Olivas DPA, C22:5w3 58 nmol/mL Normal 13-75 [facility] Comment on above: Performed By: #### M MA2 #### [facility] [address] [address] [address] Prince Olivas DPA, C22:5w6 18 nmol/mL Normal 6-55 [facility] Comment on above: Performed By: #### M MA2 #### [facility] [address] [address] [address] Prince Olivas DTA, C22:4w6 28 nmol/mL Normal 10-40 [facility] Comment on above: Performed By: #### M MA2 #### [facility] [address] [address] [address] Prince Olivas EER Fatty Acid Profile, See Note Normal [facility] Comment on above: Result Comment: Auth orized individuals can access the [facility] Enhanced Report using the following link: [email or web address] Performed By: #### M MA2 #### [facility] [address] [address] [address] Prince Olivas EPA, C20:5w3 90 nmol/mL Normal 8-130 [facility] Comment on above: Performed By: #### Marine MA2 #### [facility] [address] [address] [address] Prince Olivas g-Linolenic Acid C18:3w6 139 nmol/mL Critically high 10-120 [facility] Comment on above: Performed By: #### Marine MA2 #### [facility] [address] [address] [address] Prince Olivas u-s-Zqmsjxzwy Acid C20:3w6 211 nmol/mL Normal 45-340 [facility] Comment on above: Performed By: #### Marine MA2 #### [facility] [address] [address] [address] Prince Olivas Hexadecenoic Acid C16:1w9 56 nmol/mL Normal 14-95 [facility] Comment on above: Performed By: #### Marine MA2 #### [facility] [address] [place] [address] Dr. Prince Olivas Image . Normal [facility] Comment on above: Performed By: #### M MA2 #### [facility] [address] [place] [address] Dr. Prince Onealp, Fatty Acids Profile SP See Note Normal [facility] Comment on above: Result Comment: Incr eased concentration of omega-6 gamma- linolenic acid, possibly reflecting dietary artifacts. INTERPRETIVE INFORMATION: Fatty Acids Profile, Essential Ser/Plas This test does not screen for disorders of peroxisomal biogenesis/function. This test was developed and its performance characteristics determined by [facility]. It has not been cleared or approved by the [place] Food and Drug Administration. This test was performed in a CLIA certified laboratory and is intended for clinical purposes. Performed By: #### M MA2 #### [facility] [address] [place] [address] Dr. Prince Olivas Lauric Acid C12:0 12 nmol/mL Normal 1-200 [facility] Comment on above: Performed By: #### M MA2 #### [facility] [address] [place] [address] Dr. Prince Olivas Linoleic Acid C18:2w6 3844 nmol/mL Normal 8520-0512 [facility] Comment on above: Performed By: #### Marine MA2 #### [facility] [address] [place] [address] Dr. Prince Olivas Moose Acid C20:3w9 29 nmol/mL Normal 1-35 [facility] Comment on above: Performed By: #### Marine MA2 #### [facility] [address] [place] [address] [address] [address] Prince Olivas Myristic Acid C14:0 178 nmol/mL Normal 20-520 [facility] Comment on above: Performed By: #### M MA2 #### [facility] [address] [place] [address] Dr. Prince Olivas Nervonic Acid C24:1w9 138 nmol/mL Normal 35-145 [facility] Comment on above: Performed By: #### M MA2 #### [facility] [address] [address] [address] Prinec Olivas Oleic Acid C18:1w9 2898 nmol/mL Normal 740-3900 [facility] Comment on above: Performed By: #### M MA2 #### [facility] [address] [address] [address] Prince Olivas Palmitic Acid C16:0 3316 nmol/mL Normal 1261-7179 [facility] Comment on above: Performed By: #### M MA2 #### [facility] [address] [address] [address] Prince Olivas Palmitoleic Acid C16:1w7 355 nmol/mL Normal 35-580 [facility] Comment on above: Performed By: #### M MA2 #### [facility] [address] [address] [address] Prince Olivas Stearic Acid C18:0 1072 nmol/mL Normal 280-1250 [facility] Comment on above: Performed By: #### M MA2 #### [facility] [address] [address] [address] Prince Olivas Total Fatty Acids 13.7 mmol/L Normal 4.5-15.0 [facility] Comment on above: Performed By: #### M MA2 #### [facility] [address] [address] [address] Prince Olivas Total Monounsaturated Acid 3.6 mmol/L Normal 0.9-4.7 [facility] Comment on above: Performed By: #### M MA2 #### [facility] [address] [address] [address] Prince Olivas Total Polyunsaturated Acid 5.5 mmol/L Normal 2.1-6.2 [facility] Comment on above: Performed By: #### M MA2 #### [facility] [address] [address] [address] Prince Olivas Total Saturated Acid 4.6 mmol/L Normal 1.5-5.3 [facility] Comment on above: Performed By: #### M MA2 #### [facility] [address] [address] [address] Prince Olivas Total w3 0.31 mmol/L Normal 0.12-0.55 [facility] Comment on above: Performed By: #### M MA2 #### [facility] [address] [address] [address] Prince Olivas Total w6 5.2 mmol/L Normal 1.8-5.7 [facility] Comment on above: Performed By: #### M MA2 #### [facility] [address] [address] [address] Prince Olivas Triene Tetraene Ratio 0.031 Normal 0.004-0.051 [facility] Comment on above: Performed By: #### M ADRIAN2 #### [facility] [address] [address] [address] Prince Olivas Vaccenic Acid C18:1w7 149 nmol/mL Normal 50-250 [facility] Comment on above: Performed By: #### M ADRIAN2 #### [facility] [address] [address] [address] Prince Olivas VITAMIN Aon 04-06-2022 Vitamin A 54.9 ug/dL Normal 20.1-62.0 [facility] Comment on above: Result Comment: Refe rence intervals for vitamin A determined from [facility] internal studies. Individuals with vitamin A less than 20 ug/dL are considered vitamin A deficient and those with serum concentrations less than 10 ug/dL are considered severely deficient. . This test was developed and its performance characteristics determined by [facility]. It has not been cleared or approved by the Food and Drug Administration. Performed By: #### M ADRIAN2 #### [facility] [address] [address] [address] Prince Olivas VITAMIN Luciano 04-06-2022 Vitamin E (Alpha T) 9.9 mg/L Normal 7.0-25.1 [facility] Comment on above: Performed By: #### S ELNIUM #### [facility] [address] [address] [address] Prince Olivas Vitamin E (Gamma T) 2.1 mg/L Normal 0.5-5.5 [facility] Comment on above: Result Comment: Refe rence intervals for alpha and gamma- tocopherol determined from National Health and Nutrition Examination Survey, 0490-0552. Individuals with alpha-tocopherol levels less than 5.0 mg/L are considered vitamin E deficient. Performed By: #### S ELNIUM #### [facility] [address] [address] [address] Prince Olivas ZINC SERUM OR PLASMAon 04-06 Zinc, Plasma or Serum 75 ug/dL Normal 44-115 [facility] Comment on above: Result Comment: Dete ction Limit = 5 Performed By: #### L IPID, CMP #### [facility] [address] [address] [address] Prince Pinon 04-05-2022 CNPN Telephone (GASTA5) SAI PINEDA ([id number]) 1970 F Date Time Provider Department 04/05/22 [...] Status:Closed by TIFFANI MORALES on 04/05/22 [facility] METHYLMALONIC ACID (MMA)on 0 04-05-2022 Methylmalonic Acid, Serum 498 nmol/L Critically high 0-378 [facility] Comment on above: Performed By: #### M MA2 #### [facility] [address] [place] [address] Dr. Prince Olivas ANES POSTPROC EVALon 023 ANES POSTPROC EVAL HNO ID: [id number] Author: Altagracia Salvador MD Service: ? Author [...] Morales MD; Altagracia Salvador MD; Frederick Chaves APRN.PURCHASING MANAGER/SALES Responsible Provider: Altagracia Salvador MD Anesthesia Type: [...] with this procedure. Documented by Frederick Chaves APRN.PURCHASING MANAGER/SALES 04/04/2022 3:31 PM EST SIGNATURE: Altagracia Salvador MD PATIENT NAME: Sai Pineda DATE: April 04, 2022 TIME: 3:51 PM CSN: [id number] Normal [facility] ANES PRE-OPon 04-04-2022 ANES PRE-OP HNO ID: [id number] Author: Altagracia Salvador MD Service: ? Author Type: Anesthesiologist Type: Anesthesia Preprocedure Evaluation Filed: 04/04/2022 12:56 PM Note Text: ANESTHESIOLOGY DAY OF SURGERY NOTE : 1970 Procedure Information Date/Time: 04/04/22 1300 Scheduled providers: Tiffani Morales MD; Altagracia Salvador MD; Frederick Chaves APRN.PURCHASING MANAGER/SALES Procedure: ENTEROSCOPY Location: Gastroenterology Estimated body mass [...] April 04, 2022 TIME: 12:55 PM CSN: [id number] Normal [facility] ENTEROSCOPYon 04-04-2022 [facility] HISTORY PHYSICALon HISTORY PHYSICAL HNO ID: [id number] Author: Tiffani Morales MD Service: Gastroenterology Author [...] Sai Pineda DATE: 04/04/2022 TIME: 1302 Normal [facility] METHYLMALONIC ACID (MMA)on 0 04-04-2022 Methylmalonic Acid, Serum 397 nmol/L Critically high 0-378 [facility] Comment on above: Performed By: #### M GA2 #### [facility] [address] [place] [address] Dr. Prince Olivas NURSING PROGon 04-04-2022 NURSING PROG HNO ID: [id number] Author: Eduardo Harrington RN Service: Nursing Author [...] Electronically Signed By: Eduardo Harrington RN Normal [facility] NURSING PROG HNO ID: [id number] Author: Rima Kirk RN Service: Nursing Author [...] Rima Kirk RN In Department: GASTROENTEROLOGY Normal [facility] SELENIUM, PLASMAon 3 Selenium, Serum/Plasma 124 ug/L Normal 93-198 [facility] Comment on above: Performed By: #### S ELNIUM #### [facility] [address] [place] [address] Dr. Prince Olivas SURGICAL PATHOLOGYon 023 CASE REPORT Normal [facility] Comment on above: Order Comment: Speci men Type: TISSUE SPECIMENOrdering Facility: [facility] Address: [address] [place] [address] Result Comment: Surg ical Pathology Report Case: [id number] Authorizing Provider: Tiffani Morales MD Collected: 04/04/2022 02:57 PM Ordering Location: Gastroenterology Received: 04/04/2022 05:34 PM Pathologist: Gonzalo Lemons MD Specimen: JEJUNUM BIOPSY, polyp: r/o adenoma Performed By: #### S ####[facility] LABCL[facility] [id number] [address] [facility] FINAL DIAGNOSIS Normal [facility] Comment on above: Order Comment: Speci men Type: TISSUE SPECIMENOrdering Facility: [facility] Address: [address] [place] [address] Result Comment: Santosh leeunum, polyp, biopsy: - Small intestine with gastric heterotopia. - Negative for dysplasia and malignancy. Performed By: #### S ####[facility] LABCLIA [id number] [place] [address] [place] FINAL PERFORMING LAB Normal [facility] Comment on above: Order Comment: Speci men Type: TISSUE SPECIMENOrdering Facility: [facility] Address: [address] [place] [address] Result Comment: Diag nostic interpretation performed at [facility], [address] [place] [address] CLIA# [id number] Crane Assembler: Constantin Quevedo M.D. Performed By: #### S ####[facility] LABIA [id number] [address] [facility] GROSS DESCRIPTION Normal [facility] Comment on above: Order Comment: Speci men Type: TISSUE SPECIMENOrdering Facility: [facility] Address: [address] [place] [address] Result Comment: A. J EJUNUM BIOPSY Received in formalin is a segment of proctor polypoid tissue measuring 1.2 x 1.0 x 0.4 cm. No stalk is noted. The line of resection is noted. The specimen is bisected and totally submitted in formalin in one cassette. Gross examination performed at [facility], [address] [place] [address] MDM 04/04/2022 10:13 PM Performed By: #### S ####[facility] LABCLIA [id number] [address] [place] FOLATE, RBC AND SERUMon 03-18 Folate 7.5 ng/mL Normal >3.0 [facility] Comment on above: Result Comment: A se rum folate concentration of less than 3.1 ng/mL is considered to represent clinical deficiency. Performed By: #### L IPID, CMP #### [facility] [address] [address] [address] Prince Olivas Folate, Hemolysate 297.0 ng/mL Normal Not Estab. [facility] Comment on above: Performed By: #### L IPID, CMP #### [facility] [address] [place] [address] Dr. Prince Olivas Folate, RBC 721 ng/mL Normal >498 [facility] Comment on above: Performed By: #### L IPID, CMP #### [facility] [address] [place] [address] Dr. Prince Olivas Hematocrit (Bld) [Volume fraction] 41.2 % Normal 34.0-46.6 [facility] Comment on above: Performed By: #### L IPID, CMP #### [facility] [address] [place] [address] Dr. Prince Olivas CBC AUTO DIFFon 03-31-2022 BASO # 0.1 103/ul Normal 0.0-0.1 [facility] Comment on above: Performed By: #### L IPID, CMP #### [facility] [address] [place] [address] Dr. Prince Olivas Basophils/100 WBC (Bld) 0.6 % Normal 0.2-2.0 [facility] Comment on above: Performed By: #### L IPID, CMP #### [facility] [address] [place] [address] Dr. Prince Olivas EO # 0.2 103/ul Normal 0.0-0.7 [facility] Comment on above: Performed By: #### L IPID, CMP #### [facility] [address] [place] [address] Dr. Prince Olivas Eosinophils/100 WBC (Bld) 2.9 % Normal 0.9-7.0 [facility] Comment on above: Performed By: #### L IPID, CMP #### [facility] [address] [place] [address] Dr. Prince Olivas Erythrocyte distribution width (RBC) [Ratio] 13.2 % Normal 11.0-15.0 [facility] Comment on above: Performed By: #### L IPID, CMP #### [facility] [address] [place] [address] Dr. Prince Olivas Hematocrit (Bld) [Volume fraction] 41.1 % Normal 36.0-48.0 [facility] Comment on above: Performed By: #### L IPID, CMP #### [facility] [address] [place] [address] Dr. Prince Olivas Hemoglobin (Bld) [Mass/Vol] 13.6 g/dL Normal 12.0-16.0 [facility] Comment on above: Performed By: #### L IPID, CMP #### [facility] [address] [place] [address] Dr. Prince Olivas IG # 0.04 10e3/ul Critically high 0.00-0.03 [facility] Comment on above: Performed By: #### L IPID, CMP #### [facility] [address] [place] [address] Dr. Prince Olivas IG % 0.5 % Normal 0.0-0.5 [facility] Comment on above: Performed By: #### L IPID, CMP #### [facility] [address] [place] [address] Dr. Prince Olivas LYMPH # 2.5 103/ul Normal 1.2-3.8 [facility] Comment on above: Performed By: #### L IPID, CMP #### [facility] [address] [place] [address] Dr. Prince Olivas Lymphocytes/100 WBC (Bld) 31.5 % Normal 20.5-60.0 [facility] Comment on above: Performed By: #### L IPID, CMP #### [facility] [address] [place] [address] Dr. Prince Olivas MANUAL DIFF REQ NO Normal [facility] Comment on above: Performed By: #### L IPID, CMP #### [facility] [address] [place] [address] Dr. Prince Olivas MCH (RBC) [Entitic mass] 30.5 pg Normal 26.7-34.0 [facility] Comment on above: Performed By: #### L IPID, CMP #### [facility] [address] [address] [address] Prince Olivas MCHC (RBC) [Mass/Vol] 33.1 g/dL Normal 29.9-35.2 [facility] Comment on above: Performed By: #### L IPID, CMP #### [facility] [address] [place] [address] Dr. Prince Olivas MCV (RBC) [Entitic vol] 92.2 fL Normal 81.0-99.0 [facility] Comment on above: Performed By: #### L IPID, CMP #### [facility] [address] [place] [address] Dr. Prince Olivas MONO # 0.6 103/ul Normal 0.3-0.8 [facility] Comment on above: Performed By: #### L IPID, CMP #### [facility] [address] [place] [address] Dr. Prince Olivas Monocytes/100 WBC (Bld) 7.0 % Normal 1.7-12.0 [facility] Comment on above: Performed By: #### L IPID, CMP #### [facility] [address] [place] [address] Dr. Prince Olivas NEUT # 4.5 103/ul Normal 1.4-6.5 [facility] Comment on above: Performed By: #### L IPID, CMP #### [facility] [address] [place] [address] Dr. Prince Olivas Neutrophils/100 WBC (Bld) 57.5 % Normal 43.0-75.0 [facility] Comment on above: Performed By: #### L IPID, CMP #### [facility] [address] [place] [address] Dr. Prince Olivas Platelet mean volume (Bld) [Entitic vol] 11.5 fL Normal 9.5-13.5 [facility] Comment on above: Performed By: #### L IPID, CMP #### [facility] [address] [place] [address] Dr. Prince Olivas PLT 224 103/ul Normal 150-450 [facility] Comment on above: Performed By: #### L IPID, CMP #### [facility] [address] [place] [address] Dr. Prince Olivas RBC 4.46 106/ul Normal 4.20-5.40 [facility] Comment on above: Performed By: #### L IPID, CMP #### [facility] [address] [place] [address] Dr. Prince Olivas WBC 7.9 103/ul Normal 4.0-11.0 [facility] Comment on above: Performed By: #### L IPID, CMP #### [facility] [address] [place] [address] Dr. Prince Olivas CRPon 03-31-2022 CRP [Mass/Vol] mg/L Normal <=1.0 [facility] Comment on above: Performed By: #### C OPPER #### [facility] [address] [place] [address] Dr. Prince Olivas FERRITINon 03-31-2022 Ferritin [Mass/Vol] 99.0 ng/mL Normal 8.0-252.0 [facility] Comment on above: Performed By: #### F ERR, VITB12, VITAD, FETIBC #### [facility] [address] [place] [address] Dr. Prince Olivas IRON AND TIBCon 03-31-2022 % SATURATION 29.3 % Normal [facility] Comment on above: Performed By: #### F ERR, VITB12, VITAD, FETIBC #### [facility] [address] [place] [address] Dr. Prince Olivas Iron [Mass/Vol] 90.0 ug/dL Normal 50.0-170.0 [facility] Comment on above: Performed By: #### F ERR, VITB12, VITAD, FETIBC #### [facility] [address] [place] [address] Dr. Prince Olivas TIBC DIRECT 307.0 ug/dL Normal 250.0-450.0 [facility] Comment on above: Performed By: #### F ERR, VITB12, VITAD, FETIBC #### [facility] [address] [place] [address] Dr. Prince Olivas MAGNESIUMon 03-31-2022 Magnesium [Mass/Vol] 2.0 mg/dL Normal 1.8-2.4 [facility] Comment on above: Performed By: #### C OPPER #### [facility] [address] [place] [address] Dr. Prince Olivas PHOSPHORUSon 03-31-2022 Phosphate [Mass/Vol] 3.6 mg/dL Normal 2.6-4.7 [facility] Comment on above: Performed By: #### C OPPER #### [facility] [address] [place] [address] Dr. Prince Olivas PROF 14(COMP METB)on 023 Albumin [Mass/Vol] 3.9 g/dL Normal 3.4-5.0 [facility] Comment on above: Performed By: #### C OPPER #### [facility] [address] [place] [address] Dr. Prince Olivas Albumin/Globulin [Mass ratio] 1.3 {ratio} Normal [facility] Comment on above: Performed By: #### C OPPER #### [facility] [address] [place] [address] Dr. Prince Olivas ALP [Catalytic activity/Vol] 75 U/L Normal 46-116 [facility] Comment on above: Performed By: #### C OPPER #### [facility] [address] [place] [address] Dr. Prince Olivas ALT [Catalytic activity/Vol] 19 U/L Normal 14-59 [facility] Comment on above: Performed By: #### C OPPER #### [facility] [address] [place] [address] Dr. Prince Olivas Anion gap [Moles/Vol] 11.3 mmol/L Normal [facility] Comment on above: Performed By: #### C OPPER #### [facility] [address] [place] [address] Dr. Prince Olivas AST [Catalytic activity/Vol] 19 U/L Normal 15-37 [facility] Comment on above: Performed By: #### C OPPER #### [facility] [address] [address] [address] Prince Olivas Bilirubin [Mass/Vol] 0.3 mg/dL Normal 0.2-1.0 [facility] Comment on above: Performed By: #### C OPPER #### [facility] [address] [address] [address] Prince Olivas Calcium [Mass/Vol] 9.0 mg/dL Normal 8.5-10.1 [facility] Comment on above: Performed By: #### C OPPER #### [facility] [address] [address] [address] Prince Olivas Chloride [Moles/Vol] 105 mmol/L Normal 98-107 [facility] Comment on above: Performed By: #### C OPPER #### [facility] [address] [place] [address] Dr. Prince Olivas CO2 [Moles/Vol] 28.9 mmol/L Normal 21.0-32.0 [facility] Comment on above: Performed By: #### C OPPER #### [facility] [address] [place] [address] Dr. Prince Olivas Creatinine [Mass/Vol] 0.79 mg/dL Normal 0.55-1.02 [facility] Comment on above: Performed By: #### C OPPER #### [facility] [address] [place] [address] Dr. Prince Olivas EGFR-AF MARSHALLESE >60 Normal >=60 [facility] Comment on above: Performed By: #### C OPPER #### [facility] [address] [place] [address] Dr. Prince Olivas EGFR-NON AF MARSHALLESE >60 Normal >=60 [facility] Comment on above: Performed By: #### C OPPER #### [facility] [address] [place] [address] Dr. Prince Olivas Globulin (S) [Mass/Vol] 3.0 g/dL Normal [facility] Comment on above: Performed By: #### C OPPER #### [facility] [address] [address] [address] Prince Olivas Glucose [Mass/Vol] 91 mg/dL Normal 74-106 [facility] Comment on above: Performed By: #### C OPPER #### [facility] [address] [address] [address] Prince Olivas Potassium [Moles/Vol] 4.2 mmol/L Normal 3.5-5.1 [facility] Comment on above: Performed By: #### C OPPER #### [facility] [address] [address] [address] Prince Olivas Protein [Mass/Vol] 6.9 g/dL Normal 6.4-8.2 [facility] Comment on above: Performed By: #### C OPPER #### [facility] [address] [address] [address] Prince Olivas Sodium [Moles/Vol] 141 mmol/L Normal 136-145 [facility] Comment on above: Performed By: #### C OPPER #### [facility] [address] [address] [address] Prince Olivas Urea nitrogen [Mass/Vol] 10.0 mg/dL Normal 7.0-18.0 [facility] Comment on above: Performed By: #### C OPPER #### [facility] [address] [address] [address] Prince Olivas Urea nitrogen/Creatinine [Mass ratio] 12.7 mg/mg Normal [facility] Comment on above: Performed By: #### C OPPER #### [facility] [address] [address] [address] Prince Olivas PROTIMEon 03-31-2022 INR Coag (PPP) [Relative time] 0.94 {INR} Normal [facility] Comment on above: Performed By: #### M MA2 #### [facility] [address] [address] [address] Prince Olivas INR GUIDELINES SEE BELOW Normal [facility] Comment on above: Result Comment: BRIANNA RED INR: 2.0 - 3.0 CONDITIONS NOT LISTED BELOW 2.5 - 3.5 FOR PROSTHETIC HEART VALVE REPLACEMENT 2.5 - 3.5 RECURRENT THROMBOSIS Performed By: #### M MA2 #### [facility] [address] [place] [address] Dr. Prince Olivas PT Coag (PPP) [Time] 10.0 s Normal 9.0-11.6 [facility] Comment on above: Performed By: #### M MA2 #### [facility] [address] [place] [address] Dr. Prince Olivas TRIGLYCERIDEon 03-31-2022 Triglyceride [Mass/Vol] 103 mg/dL Normal <=150 [facility] Comment on above: Performed By: #### C OPPER #### [facility] [address] [place] [address] Dr. Prince Olivas VITAMIN B12on 03-31-2022 Cobalamin (Vitamin B12) [Mass/Vol] 259.0 pg/mL Normal 193.0-986.0 [facility] Comment on above: Performed By: #### F ERR, VITB12, VITAD, FETIBC #### [facility] [address] [place] [address] Dr. Prince Olivas VITAMIN D 25 OHon 03-31-2022 VIT D 25-OH 49.0 ng/mL Normal [facility] Comment on above: Performed By: #### F ERR, VITB12, VITAD, FETIBC #### [facility] [address] [place] [address] Dr. Prince Olivas VIT D RANGES SEE BELOW Normal [facility] Comment on above: Result Comment: <20 ng/mL Vit D deficient 20 - <30 ng/mL Vit D insufficient 30 - 100 ng/mL Vit D sufficient >100 ng/mL Potential Toxicity Performed By: #### F ERR, VITB12, VITAD, FETIBC #### [facility] [address] [place] [address] Dr. Prince Olivas CBC AUTO DIFFon 03-28-2022 BASO # 0.1 103/ul Normal 0.0-0.1 [facility] Comment on above: Performed By: #### S ELNIUM #### [facility] [address] [place] [address] Dr. Prince Olivas Basophils/100 WBC (Bld) 0.6 % Normal 0.2-2.0 [facility] Comment on above: Performed By: #### S ELNIUM #### [facility] [address] [place] [address] Dr. Prince Olivas EO # 0.2 103/ul Normal 0.0-0.7 [facility] Comment on above: Performed By: #### S ELNIUM #### [facility] [address] [place] [address] Dr. Prince Olivas Eosinophils/100 WBC (Bld) 2.4 % Normal 0.9-7.0 [facility] Comment on above: Performed By: #### S ELNIUM #### [facility] [address] [place] [address] Dr. Prince Olivas Erythrocyte distribution width (RBC) [Ratio] 13.2 % Normal 11.0-15.0 [facility] Comment on above: Performed By: #### S ELNIUM #### [facility] [address] [place] [address] Dr. Prince Olivas Hematocrit (Bld) [Volume fraction] 44.3 % Normal 36.0-48.0 [facility] Comment on above: Performed By: #### S ELNIUM #### [facility] [address] [place] [address] Dr. Prince Olivas Hemoglobin (Bld) [Mass/Vol] 13.8 g/dL Normal 12.0-16.0 [facility] Comment on above: Performed By: #### S ELNIUM #### [facility] [address] [place] [address] Dr. Prince Olivas IG # 0.02 10e3/ul Normal 0.00-0.03 [facility] Comment on above: Performed By: #### S ELNIUM #### [facility] [address] [place] [address] Dr. Prince Olivas IG % 0.2 % Normal 0.0-0.5 [facility] Comment on above: Performed By: #### S ELNIUM #### [facility] [address] [address] [address] Prince Olivas LYMPH # 3.1 103/ul Normal 1.2-3.8 [facility] Comment on above: Performed By: #### S ELNIUM #### [facility] [address] [address] [address] Prince lOivas Lymphocytes/100 WBC (Bld) 34.8 % Normal 20.5-60.0 [facility] Comment on above: Performed By: #### S ELNIUM #### [facility] [address] [place] [address] Dr. Prince Olivas MANUAL DIFF REQ NO Normal [facility] Comment on above: Performed By: #### S ELNIUM #### [facility] [address] [place] [address] Dr. Prince Olivas MCH (RBC) [Entitic mass] 30.5 pg Normal 26.7-34.0 [facility] Comment on above: Performed By: #### S ELNIUM #### [facility] [address] [place] [address] Dr. Prince Olivas MCHC (RBC) [Mass/Vol] 31.2 g/dL Normal 29.9-35.2 [facility] Comment on above: Performed By: #### S ELNIUM #### [facility] [address] [place] [address] Dr. Prince Olivas MCV (RBC) [Entitic vol] 98.0 fL Normal 81.0-99.0 [facility] Comment on above: Performed By: #### S ELNIUM #### [facility] [address] [address] [address] Prince Olivas MONO # 0.5 103/ul Normal 0.3-0.8 [facility] Comment on above: Performed By: #### S ELNIUM #### [facility] [address] [place] [address] Dr. Prince Olivas Monocytes/100 WBC (Bld) 6.0 % Normal 1.7-12.0 [facility] Comment on above: Performed By: #### S ELNIUM #### [facility] [address] [address] [address] Prince Olivas NEUT # 5.0 103/ul Normal 1.4-6.5 [facility] Comment on above: Performed By: #### S ELNIUM #### [facility] [address] [address] [address] Prince Olivas Neutrophils/100 WBC (Bld) 56.0 % Normal 43.0-75.0 [facility] Comment on above: Performed By: #### S ELNIUM #### [facility] [address] [address] [address] Prince Olivas Platelet mean volume (Bld) [Entitic vol] 11.5 fL Normal 9.5-13.5 [facility] Comment on above: Performed By: #### S ELNIUM #### [facility] [address] [place] [address] Dr. Prince Olivas PLT 221 103/ul Normal 150-450 [facility] Comment on above: Performed By: #### S ELNIUM #### [facility] [address] [address] [address] Prince Olivas RBC 4.52 106/ul Normal 4.20-5.40 [facility] Comment on above: Performed By: #### S ELNIUM #### [facility] [address] [address] [address] Prince Olivas WBC 8.9 103/ul Normal 4.0-11.0 [facility] Comment on above: Performed By: #### S ELNIUM #### [facility] [address] [place] [address] Dr. Prince Pinon 03-28-2022 YAMILETH Telephone (JAMIE) SAI PINEDA ([id number]) 1970 F Date Time Provider Department 03/28/22 EDUARDO HARRINGTON During your visit today, we recorded the following information about you: Eduardo Harrington RN 03/28/2022 3:52 PM Signed Attempted to reach the patient at the contact number that they provided [phone] (home) . Unable to speak with patient so without identifying the patient the following information was left on their voice mail: Date of procedure, location and report time A message was left informing the patient/patient ambulatory services representative they must have a responsible [...] Number to call with questions or concerns [phone] Number to call to cancel their procedure [phone] Eduardo Harrington RN Allergies As of Date: 03/28/2022 (No Known Allergies) Date Reviewed: 01/01/2022 Reviewed by: Juan Carlos Saucedo LPN - Fully Assessed Reason for Visit: Appointment Confirmation [[phone]] Prescriptions as of 03/28/2022 - prochlorperazine (COMPAZINE) [...] EDUARDO HARRINGTON on 03/28/22 Normal [facility] PROF 14(COMP METB)on 023 Albumin [Mass/Vol] 4.2 g/dL Normal 3.4-5.0 [facility] Comment on above: Performed By: #### L IPID, CMP #### [facility] [address] [place] [address] Dr. Prince Olivas Albumin/Globulin [Mass ratio] 1.4 {ratio} Normal [facility] Comment on above: Performed By: #### L IPID, CMP #### [facility] [address] [place] [address] Dr. Prince Olivas ALP [Catalytic activity/Vol] 86 U/L Normal 46-116 [facility] Comment on above: Performed By: #### L IPID, CMP #### [facility] [address] [address] [address] Prince Olivas ALT [Catalytic activity/Vol] 13 U/L Critically low 14-59 [facility] Comment on above: Performed By: #### L IPID, CMP #### [facility] [address] [address] [address] Prince Olivas Anion gap [Moles/Vol] 9.7 mmol/L Normal [facility] Comment on above: Performed By: #### L IPID, CMP #### [facility] [address] [address] [address] Prince Olivas AST [Catalytic activity/Vol] 15 U/L Normal 15-37 [facility] Comment on above: Performed By: #### L IPID, CMP #### [facility] [address] [place] [address] Dr. Prince Olivas Bilirubin [Mass/Vol] 0.2 mg/dL Normal 0.2-1.0 [facility] Comment on above: Performed By: #### L IPID, CMP #### [facility] [address] [place] [address] Dr. Prince Olivas Calcium [Mass/Vol] 9.2 mg/dL Normal 8.5-10.1 [facility] Comment on above: Performed By: #### L IPID, CMP #### [facility] [address] [place] [address] Dr. Prince Olivas Chloride [Moles/Vol] 102 mmol/L Normal 98-107 [facility] Comment on above: Performed By: #### L IPID, CMP #### [facility] [address] [place] [address] Dr. Prince Olivas CO2 [Moles/Vol] 28.9 mmol/L Normal 21.0-32.0 [facility] Comment on above: Performed By: #### L IPID, CMP #### [facility] [address] [place] [address] Dr. Prince Olivas Creatinine [Mass/Vol] 0.81 mg/dL Normal 0.55-1.02 [facility] Comment on above: Performed By: #### L IPID, CMP #### [facility] [address] [place] [address] Dr. Prince Olivas EGFR-AF MARSHALLESE >60 Normal >=60 [facility] Comment on above: Performed By: #### L IPID, CMP #### [facility] [address] [place] [address] Dr. Prince Olivas EGFR-NON AF MARSHALLESE >60 Normal >=60 [facility] Comment on above: Performed By: #### L IPID, CMP #### [facility] [address] [address] [address] Prince Olivas Globulin (S) [Mass/Vol] 3.1 g/dL Normal [facility] Comment on above: Performed By: #### L IPID, CMP #### [facility] [address] [place] [address] Dr. Prince Olivas Glucose [Mass/Vol] 74 mg/dL Normal 74-106 [facility] Comment on above: Performed By: #### L IPID, CMP #### [facility] [address] [place] [address] Dr. Prince Olivas Potassium [Moles/Vol] 4.1 mmol/L Normal 3.5-5.1 [facility] Comment on above: Performed By: #### L IPID, CMP #### [facility] [address] [place] [address] Dr. Prince Olivas Protein [Mass/Vol] 7.3 g/dL Normal 6.4-8.2 [facility] Comment on above: Performed By: #### L IPID, CMP #### [facility] [address] [place] [address] Dr. Prince Olivas Sodium [Moles/Vol] 138 mmol/L Normal 136-145 [facility] Comment on above: Performed By: #### L IPID, CMP #### [facility] [address] [place] [address] Dr. Prinec Olivas Urea nitrogen [Mass/Vol] 11.0 mg/dL Normal 7.0-18.0 [facility] Comment on above: Performed By: #### L IPID, CMP #### [facility] [address] [place] [address] Dr. Prince Olivas Urea nitrogen/Creatinine [Mass ratio] 13.6 mg/mg Normal [facility] Comment on above: Performed By: #### L IPID, CMP #### [facility] [address] [place] [address] Dr. Prince Olivas TSHon 03-28-2022 TSH 0.948 uIU/mL Normal 0.358-3.740 [facility] Comment on above: Performed By: #### L IPID, CMP #### [facility] [address] [address] [address] Prince Olivas VIT B12 AND FOLATEon 023 Cobalamin (Vitamin B12) [Mass/Vol] 260.0 pg/mL Normal 193.0-986.0 [facility] Comment on above: Performed By: #### C OPPER #### [facility] [address] [address] [address] Prince Olivas FOLATE 7.90 ng/mL Critically low 8.60-58.90 [facility] Comment on above: Performed By: #### C OPPER #### [facility] [address] [address] [address] Prince Olivas NM GASTRIC EMPTYING SOLIDon 02-05-2022 NM GASTRIC EMPTYING SOLID * * *Final Report* * * DATE OF EXAM: Feb 05 2022 12:26PM [facility] 0017 - [place] GASTRIC EMPTYING SOLID / [...] rate of gastric emptying of solid meal. Civil Engineering Project Designer: FAN Transcribe Date/Time: Feb 05 2022 1:36P Dictated by : SHER RODRIGUEZ MD This examination was interpreted and the report reviewed and electronically signed by: RENATO PATEL MD on Feb 05 2022 2:03PM EST [id number] [facility] SAI [facility] ([id number]) 1970 F Date Time Provider Department 01/05/22 [...] Encounter Status:Closed by TIFFANI MORALES on 01/05/22 [facility] 01-03-2022 [facility] SAI [facility] ([id number]) 1970 F Date Time Provider Department 01/03/22 ANASTASIYA MOSQUEDA GASTNE During your visit today, we recorded the following information about you: Anastasiya Mosqueda PA-C 01/03/2022 10:19 AM Signed EGD results discussed with patient as requested, pathology still pending. Will reach out to patient once resulted. Red flags for in person care discussed. GRECIA [facility] 01/05/2022 10:02 AM Signed Patient requests return call [phone] [facility] Allergies As of Date: [...] Encounter Status:Closed by ANASTASIYA MOSQUEDA on [facility]03[facility] Telephone (DDQ) SAI PINEDA ([id number]) 1970 F Date Time Provider Department 01/02/22 [...] Status:Closed by LEYDI HUIZAR on 01/02/22 Normal [facility] ANES POSTPROC EVALon 022 ANES POSTPROC EVAL HNO ID: [id number] Author: Sher Hudson MD Service: ? Author [...] January 01, 2022 TIME: 5:13 PM CSN: [id number] Normal [facility] ANES PRE-OPon 01-01-2022 ANES PRE-OP HNO ID: [id number] Author: Sher Hudson MD Service: ? Author Type: Anesthesiologist Type: Anesthesia Preprocedure Evaluation Filed: 01/01/2022 3:42 PM Note Text: ANESTHESIOLOGY DAY OF SURGERY NOTE : 1970 Procedure Information Date/Time: 01/01/22 1600 Scheduled providers: Tiffani Morales MD; Sher Hudson MD; Kirsten Dalton APRN.PURCHASING MANAGER/SALES Procedure: EGD DIAGNOSTIC Location: Gastroenterology Estimated body [...] January 01, 2022 TIME: 3:42 PM CSN: [id number] Normal [facility] EGD DIAGNOSTICon 01-01-2022 [facility] HISTORY PHYSICALon HISTORY PHYSICAL HNO ID: [id number] Author: Tiffani Morales MD Service: Gastroenterology Author [...] Sai Guerrero DATE: 01/01/2022 TIME: 1600 Normal [facility] NURSING PROGon 01-01-2022 NURSING PROG HNO ID: [id number] Author: Juan Carlos Saucedo LPN Service: ? [...] Electronically Signed By: Juan Carlos Saucedo LPN [facility] NURSING PROG HNO ID: [id number] Author: Rima Coleman RN Service: ? Author [...] Rima Coleman RN In Department: GASTROENTEROLOGY Normal [facility] SURGICAL PATHOLOGYon 01-01-2 022 CASE REPORT Normal [facility] Comment on above: Order Comment: Speci urbano Type: TISSUE SPECIMENOrdering Facility: [facility] Address: [address] [place], [place] [id number] Result Comment: Surg ica Pathology Report Case: [id number] Authorizing Provider: Tiffani Morales MD Collected: 01/01/2022 04:13 PM Ordering Location: Gastroenterology Received: 01/01/2022 08:38 PM Pathologist: Jyotsna Cartwright MD Specimens: A) - DUODENUM BIOPSY, r/o celiac B) - STOMACH BIOPSY, r/o h. pylori C) - STOMACH (GASTRIC) POLYP BIOPSY, r/o adenoma Performed By: #### S ####[facility] [id number] [address] [place] DIAGNOSIS COMMENT Normal [facility] Comment on above: Order Comment: Robb clement Type: TISSUE SPECIMENOrdering Facility: [facility] Address: [address] [place] [address] Result Comment: A. A denovirus stain is negative for viral inclusions. Dr Valorie Jaimes has reviewed this part of the case and concurs. Laboratory Developed Test (LDT) Disclaimer: Performance characteristics of immunohistochemical, immunofluorescent and chromogenic in-situ hybridization tests have been determined by the performing laboratory within [facility]???s Lul Gandhi [facility] Pathology and Laboratory Medicine [place] ([facility], [facility], [facility] or [facility]) in a manner consistent with CLIA requirements. One or more of these tests have not been cleared or approved by the FDA. [facility] is regulated under CLIA as qualified to perform high-complexity testing. These tests are used for clinical purposes. They should not be regarded as investigational or for research. Positive and negative controls stain appropriately. Performed By: #### S ####[facility] LABCLIA [id number] [address] STATES OF [place] FINAL DIAGNOSIS Normal [facility] Comment on above: Order Comment: Matai men Type: TISSUE SPECIMENOrdering Facility: [facility] Address: [address] [place] [address] Result Comment: A. D uodenum, biopsy: - Incidental and minute tubular adenoma, negative for high grade dysplasia. See comment. - Duodenal mucosa with no diagnostic alterations. B. Stomach, biopsy: - Oxyntic and antral mucosa with no diagnostic alteration. - No morphologic evidence of H. Pylori microorganisms. C. Stomach, polypectomy: - Hyperplastic polyp. Performed By: #### S ####[facility] LABCLIA [id number] [address] FINAL PERFORMING LAB Normal [facility] Comment on above: Order Comment: Speci men Type: TISSUE SPECIMENOrdering Facility: [facility] Address: [address] [place] [address] Result Comment: Diag nostic interpretation performed at [facility], [address] [place] [address] CLIA# [id number] Crane Assembler: Constantin Quevedo M.D. Performed By: #### S ####[facility] LABCLIA [id number] [address] GROSS DESCRIPTION Normal [facility] Comment on above: Order Comment: Speci men Type: TISSUE SPECIMENOrdering Facility: [facility] Address: [address] [place] [address] Result Comment: A. D UODENUM BIOPSY Received [...] in one cassette. Gross examination performed at [facility], [address] [place] [address], [place] [address] TTN 01/02/2022 12:06 AM Performed By: #### S ####[facility] ANKUR [id number] BRYAN BEECH GROVETOR [id number] [address] [place] OF [facility] Upper GI endoscopyon --2 022 Upper GI endoscopy A31 Gastrointestinal Endoscopy Patient Name: Sai Guerrero Procedure Date: 01/01/2022 3:37 PM Date of : 1970 Admit Type: Outpatient Age: 51 Room: [address] Gender: Female Note Status: Finalized [...] the patient. 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 All rights reserved. The codes documented in this report are preliminary and upon inpatient coder review may be revised to meet current compliance requirements. Attending Participation: I personally performed the entire procedure. Scope In: 4:09:57 PM Scope Out: 4:21:34 PM MD Tiffani Camargo MD 01/01/2022 4:34:18 PM This report has been signed electronically by Tiffani Morales MD Number of Addenda: 0 Note Initiated On: 01/01/2022 3:37 PM [facility] SAI WELLS ([id number]) 1970 F Date Time Provider Department 12/28/21 [...] have family/friend present for procedure transport home:Patient/patient ambulatory services representative was told that if they [...] area. 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 Type of instruction [...] Status:Closed by JOSE ROBERTO VYAS on 12/28/21 [facility] Zi 12-25-2021 [facility] Telephone (GAPRA3) SAI WELLS ([id number]) 1970 F Date Time Provider Department 12/25/21 [...] Encounter Status:Closed by RIMA GERARD on 12/25/21 [facility] Zi 12[facility]18[facility]2021 [facility] SAI WELLS ([id number]) 1970 F Date Time Provider Department 12/18/21 BHUPINDER CARREON GAPRA3 During your visit today, we recorded the following information about you: Bhupinder Carreon MA 12/18/2021 10:51 AM Signed Attempted to reach the patient at the contact number that they provided [phone] (home) . Unable to speak with patient [...] Encounter Status:Closed by BHUPINDER CARREON on 12/18/21 [facility] 12[facility]13-2021 [facility]EVANGELINA[facility] SAI WELLS ([id number]) 1970 F Date Time Provider Department 12/13/[address] [facility] During your visit today, we recorded the following information about you: [facility] 12/13/2021 11:20 AM Signed Received a call from patient's health agency concerning virtual visit set up with you today at 11 - Patient has not registered for [employer] (having trouble accessing her email) AND they want to know if you will do a phone visit instead Was told this was an urgent request from the referring doctor's office - the visit was scheduled thru the Referring Physician office There are no records found for this patient AND I attempted to pull records thru Care Everywhere Patient's phone [phone] [facility] 12/13/2021 12:33 PM Signed Spoke to patient's daughter - she will contact the [employer] support line to assist with setting up patient's Non[employer]oxhart AND assist with set up for virtual visit tomorrow morning [facility] 12/14/2021 12:34 PM Signed Patient phoned again unable to connect with you via [employer] Okay to schedule phone visit tomorrow? [phone] [facility] 12/14/2021 1:32 PM Signed Patient scheduled for phone visit Dec 15 at 11 am - patient instructed not to screen her calls at the time of the visit AND to answer her phone [facility] 12/15/2021 11:46 AM Addendum Patient called the office stating you did not phone her for her 11 am appt today- she confirmed the phone number on file front desk receptionist checked the patient in as arrived you should be able to call her back without rescheduling the time [phone] [facility] Allergies As of Date: [...] Status:Closed by ELIZABETH RODRIGUEZ on 12/13/21 Normal [facility] BNPon 12-11-2021 Natriuretic peptide B (Bld) [Mass/Vol] 134.0 pg/mL Normal <=900.0 [facility] Comment on above: Performed By: #### M MAChari #### [facility] [address] [place] [address] Dr. Prince Olivas CBC AUTO DIFFon 12-11-2021 BASO # 0.0 103/ul Normal 0.0-0.1 [facility] Comment on above: Performed By: #### L IPID, CMP #### [facility] [address] [place] [address] Dr. Prince Olivas Basophils/100 WBC (Bld) 0.4 % Normal 0.2-2.0 [facility] Comment on above: Performed By: #### L IPID, CMP #### [facility] [address] [place] [address] Dr. Prince Olivas EO # 0.0 103/ul Normal 0.0-0.7 [facility] Comment on above: Performed By: #### L IPID, CMP #### [facility] [address] [place] [address] Dr. Prince Olivas Eosinophils/100 WBC (Bld) 0.3 % Critically low 0.9-7.0 [facility] Comment on above: Performed By: #### L IPID, CMP #### [facility] [address] [place] [address] Dr. Prince Olivas Erythrocyte distribution width (RBC) [Ratio] 13.1 % Normal 11.0-15.0 [facility] Comment on above: Performed By: #### L IPID, CMP #### [facility] [address] [place] [address] Dr. Prince Olivas Hematocrit (Bld) [Volume fraction] 45.9 % Normal 36.0-48.0 [facility] Comment on above: Performed By: #### L IPID, CMP #### [facility] [address] [place] [address] Dr. Prince Olivas Hemoglobin (Bld) [Mass/Vol] 15.3 g/dL Normal 12.0-16.0 [facility] Comment on above: Performed By: #### L IPID, CMP #### [facility] [address] [place] [address] Dr. Prince Olivas IG # 0.04 10e3/ul Critically high 0.00-0.03 [facility] Comment on above: Performed By: #### L IPID, CMP #### [facility] [address] [address] [address] Prince Olivas IG % 0.4 % Normal 0.0-0.5 [facility] Comment on above: Performed By: #### L IPID, CMP #### [facility] [address] [place] [address] Dr. Prince Olivas LYMPH # 1.9 103/ul Normal 1.2-3.8 [facility] Comment on above: Performed By: #### L IPID, CMP #### [facility] [address] [place] [address] Dr. Prince Olivas Lymphocytes/100 WBC (Bld) 17.0 % Critically low 20.5-60.0 [facility] Comment on above: Performed By: #### L IPID, CMP #### [facility] [address] [place] [address] Dr. Prince Olivas MANUAL DIFF REQ NO Normal [facility] Comment on above: Performed By: #### L IPID, CMP #### [facility] [address] [place] [address] Dr. Prince Olivas MCH (RBC) [Entitic mass] 31.4 pg Normal 26.7-34.0 [facility] Comment on above: Performed By: #### L IPID, CMP #### [facility] [address] [place] [address] Dr. Prince Olivas MCHC (RBC) [Mass/Vol] 33.3 g/dL Normal 29.9-35.2 [facility] Comment on above: Performed By: #### L IPID, CMP #### [facility] [address] [place] [address] Dr. Prince Olivas MCV (RBC) [Entitic vol] 94.3 fL Normal 81.0-99.0 [facility] Comment on above: Performed By: #### L IPID, CMP #### [facility] [address] [place] [address] Dr. Prince Olivas MONO # 0.6 103/ul Normal 0.3-0.8 [facility] Comment on above: Performed By: #### L IPID, CMP #### [facility] [address] [place] [address] Dr. Prince Olivas Monocytes/100 WBC (Bld) 5.6 % Normal 1.7-12.0 [facility] Comment on above: Performed By: #### L IPID, CMP #### [facility] [address] [place] [address] Dr. Prince Olivas NEUT # 8.3 103/ul Critically high 1.4-6.5 [facility] Comment on above: Performed By: #### L IPID, CMP #### [facility] [address] [place] [address] Dr. Prince Olivas Neutrophils/100 WBC (Bld) 76.3 % Critically high 43.0-75.0 [facility] Comment on above: Performed By: #### L IPID, CMP #### [facility] [address] [place] [address] Dr. Prince Olivas Platelet mean volume (Bld) [Entitic vol] 12.1 fL Normal 9.5-13.5 [facility] Comment on above: Performed By: #### L IPID, CMP #### [facility] [address] [place] [address] Dr. Prince Olivas PLT 204 103/ul Normal 150-450 [facility] Comment on above: Performed By: #### L IPID, CMP #### [facility] [address] [place] [address] Dr. Prince Olivas RBC 4.87 106/ul Normal 4.20-5.40 [facility] Comment on above: Performed By: #### L IPID, CMP #### [facility] [address] [place] [address] Dr. Prince Olivas WBC 10.9 103/ul Normal 4.0-11.0 [facility] Comment on above: Performed By: #### L IPID, CMP #### [facility] [address] [place] [address] Dr. Prince Olivas LACTATE/LACTIC ACIDon 2021 Lactate [Moles/Vol] 1.9 mmol/L Normal 0.4-1.9 [facility] Comment on above: Performed By: #### S ARGENTINAEDISON #### [facility] [address] [place] [address] Dr. Prince Olivas LIPASEon 12-11-2021 Lipase [Catalytic activity/Vol] 49.0 U/L Critically low 73.0-393.0 [facility] Comment on above: Performed By: #### M MA2 #### [facility] [address] [place] [address] Dr. Prince Olivas PROF 14(COMP METB)on 022 Albumin [Mass/Vol] 4.5 g/dL Normal 3.4-5.0 [facility] Comment on above: Performed By: #### M ADRIAN2 #### [facility] [address] [place] [address] Dr. Prince Olivas Albumin/Globulin [Mass ratio] 1.7 {ratio} Normal [facility] Comment on above: Performed By: #### M ADRIAN2 #### [facility] [address] [place] [address] Dr. Prince Olivas ALP [Catalytic activity/Vol] 83 U/L Normal 46-116 [facility] Comment on above: Performed By: #### M ADRIAN2 #### [facility] [address] [place] [address] Dr. Prince Olivas ALT [Catalytic activity/Vol] 19 U/L Normal 14-59 [facility] Comment on above: Performed By: #### Marine CAMPBELL2 #### [facility] [address] [place] [address] Dr. Prince Olivas Anion gap [Moles/Vol] 15.8 mmol/L Normal [facility] Comment on above: Performed By: #### M ADRIAN2 #### [facility] [address] [place] [address] Dr. Prince Olivas AST [Catalytic activity/Vol] 15 U/L Normal 15-37 [facility] Comment on above: Performed By: #### M ADRIAN2 #### [facility] [address] [place] [address] Dr. Prince Olivas Bilirubin [Mass/Vol] 0.6 mg/dL Normal 0.2-1.0 [facility] Comment on above: Performed By: #### M MA2 #### [facility] [address] [address] [address] Prince Olivas Calcium [Mass/Vol] 9.3 mg/dL Normal 8.5-10.1 [facility] Comment on above: Performed By: #### M MA2 #### [facility] [address] [address] [address] Prince Olivas Chloride [Moles/Vol] 103 mmol/L Normal 98-107 [facility] Comment on above: Performed By: #### M MA2 #### [facility] [address] [place] [address] Dr. Prince Olivas CO2 [Moles/Vol] 25.9 mmol/L Normal 21.0-32.0 [facility] Comment on above: Performed By: #### M MA2 #### [facility] [address] [place] [address] Dr. Prince Olivas Creatinine [Mass/Vol] 0.97 mg/dL Normal 0.55-1.02 [facility] Comment on above: Performed By: #### Marine MA2 #### [facility] [address] [place] [address] Dr. Prince Olivas EGFR-AF MARSHALLESE >60 Normal >=60 [facility] Comment on above: Performed By: #### Marine MA2 #### [facility] [address] [place] [address] Dr. Prince Olivas EGFR-NON AF MARSHALLESE >60 Normal >=60 [facility] Comment on above: Performed By: #### M MA2 #### [facility] [address] [place] [address] Dr. Prince Olivas Globulin (S) [Mass/Vol] 2.7 g/dL Normal [facility] Comment on above: Performed By: #### M MA2 #### [facility] [address] [place] [address] Dr. Prince Olivas Glucose [Mass/Vol] 107 mg/dL Critically high 74-106 [facility] Comment on above: Performed By: #### M MA2 #### [facility] [address] [address] [address] Prince Olivas Potassium [Moles/Vol] 3.7 mmol/L Normal 3.5-5.1 [facility] Comment on above: Performed By: #### M MA2 #### [facility] [address] [address] [address] Prince Olivas Protein [Mass/Vol] 7.2 g/dL Normal 6.4-8.2 [facility] Comment on above: Performed By: #### M MA2 #### [facility] [address] [address] [address] Prince Olivas Sodium [Moles/Vol] 141 mmol/L Normal 136-145 [facility] Comment on above: Performed By: #### M MA2 #### [facility] [address] [address] [address] Prince Olivas Urea nitrogen [Mass/Vol] 11.0 mg/dL Normal 7.0-18.0 [facility] Comment on above: Performed By: #### M MA2 #### [facility] [address] [address] [address] Prince Olivas Urea nitrogen/Creatinine [Mass ratio] 11.3 mg/mg Normal [facility] Comment on above: Performed By: #### M MA2 #### [facility] [address] [address] [address] Prince Olivas TROPONIN, HIGH SENSITIVITYon 12-11-2021 HSTROP 5.5 pg/mL Normal 4.0-51.3 [facility] Comment on above: Result Comment: CUT- OFF POINTS HAVE BEEN ESTABLISHED BASED ON THE FOURTH UNIVERSAL DEFINITIONS OF MYOCARDIAL INFARCTION. THE UPPER REFERENCE LIMIT (URL) OF TROPONIN, DEFINED THE 99TH PERCENTILE OF cTnI DISTRIBUTION IN A REFERENCE POPULATION, HAS BEEN CONFIRMED THE DECISION THRESHOLD FOR HI DIAGNOSIS. Performed By: #### M MA2 #### [facility] [address] [address] [address] Prince Olivas XR CHEST 1 Von [...] by: BRITNI HARRISON Date: 2021-12-11 15:[address] [facility] Coding Summary.on 12-06-2021 Coding Summary. CD:[id number] Gh0bWw+P GhlYWQ+CX7AGHJoN32lxPZqrR1XS 8sROX4AZGHHAJQXUA5RKW7enGN2S MmtA8YzhmEw GoqiiXMsCW27CUt9EQH6rZwlTVgx mI7wbLIrM8j0HpPmBL24zL66CJja LQKxVqD7HyByjelamRCd M0ssBkAxnGBzHpi+PHRhYmxlIHdp NKXnOSnnCWVuRrSyhGasXP8jOw2x ZGVyLWNvbGxhcHNlOiBj t7lnYSWyUIaxLD8puKkgR1FabBZ0 YCVao1o2He16hVZ+JZLuZSB7kNzb EBshw642MaDfo0lqEKM0 dWKoUDpoVKV5P33fb0D5MGYlGHTl SHY7pVK0pK1uaApsreogI8AmzVKl CyR9JSR4pDLufQ0nsEwe idykpO1dCob+L67EQQ5HKDPQOY9C Mrh8W9FxLbblbBL+UH60QNDiIO08 pIKttFOgl1svmFt1BnLt FKCfTCM5aGarLRyiu3EgGRGaU20t zVEol1T9OCTiqAdgvPNrJdCepNS9 fH9fPQiaqisge2xdjvht Domcw3taeg75hE23J35rASzcWDUu MGE3APWcDQWdaRvotb1gaD7pHk8+ QHpzl2njs8qttOz2XxFc IBOdnuCcqRakFSU5j3YoMy06E1Xo dQimc5MxBsy1dt69aAHqo5R4oGV6 GCzjGGXijM1rDClmSxB7 RBSkZkIgwN72dGKoNIbbXz2lfWjp gKgcXT7cRYTozgmxASUtmL5nKQOa gIVdbNrwZU4gPIKbryqn s832EkPeUPM5ZEPimVBqL1EatQ4w HpVkKJPwELZeA4PvzCSqCIvqZ399 RSpaVnC6DKShcdWmA1Xy BEMrbAhfHcL2j3F6Xo9Vd2Ubeggd LNZ8BCkiYMK9LnEyOyTxHrV5L6Tu Crc9TNQptGdsKX9aO0Ho IMHsfbftgxgkwKV4CRYjMAUkxK93 rLSoTLmoKr9km6F2z725QXRiZUJp tX26Ej3tpLreQWQlhKXG dK2txjeew8xtklqaYyZyKSOcEQl5 LSn8EPQdxMchTuUdDQS1XxL9KUF4 hXCawZ0ugUbfwhojsJ9g Oyc+S98btD2hZAY7VCI8nsowJFEd fvDkJY05OC52F8YkGeqjhBNlwYL+ XJBzenZbeLexQA2gPqIx m5vak0GeSMtjL3CwVPFmPYgaScn3 BQWhLJQ4tXQ1tP0lFCGhHEchc3Q3 iYK4R6AtbtImqz6ev9rr AYNoXVphU00nyCGbi0T0WTCknMD0 XMDyuTyuNkBakX21Icr+PGNvbGdy i1BvTimsc8wll6emsBd6 PfPcXBGrpeBlaGbxEUJ2z4LxTk83 B32yIBmmBVPgVXBrDGTkVEQiwXsp bd4hlW3dHw2+PGNvbCB3 aQV7hU2yICPnIfX0DQryY756KeFu iOJnGrxfe0bjh7sogPi7AkUgFPTb ngGtqAhyEST8j5WhCa53 X26tAKmrKFLiBVAhDWFsUHIkmCxx fp8iqY5gCm6+KV3vu6mpdt98dC41 dHI+KOSvQVH3eQscWOmr AROyxU3mTUgdKiC3QCGvVqDouA02 aHHvVLlbXv5bbQxkuOqmFD7kSUMh jgnux398VqKvt7qhSKNe gSYnLNwoHGT1F41ra6S1BUWxQUTs COP4tSP2dG5jyXifxalsdXRaiWiu thKuaLjzYMdaXYrbE211 IHRvcDsnPlBhdGllbnQgTmFtZTo8 B8MyCrd0JKLwcHzsNA7rpKAxAKrh Yq1viOfhuHjtJQ1sUGPk ymtfx790ZiFbl8shGJNxbKTpIOil CIZ2O73eq2H4ZUVmSAQvMUK7vGL5 uY5ssUxwhrfldIKcySyc ycKrjVuuWDhwHEhzS519QXArmKxv VwGwzfYrHNWkwKS0DA18VE13aQLn i5R8vHF3F9ViJUBopkzb nsbtvTG7QBJyMSNpqR53Wu7csWpy Ek0hVAItELC8JARttMBxL5MsnM4i UuNdUDJdQSAzX8LupMRr DXqfU138EWndDzB1FWZsnjScV6Dk OOSukUpfToG5d4W3Ig1QS0Z2XS27 GS18bOQon1F8dZB3Y7Bm FPThnmiwgxiwzLK0OHDdCBJbiT55 Fq0zmRanCh6tXLUiYLM8TXWuhKQq F6EupT6sRvFsPDQxNOLi F4EeySAjDVyxT756DMyvPeK9TRCp toMwZ8AzMOWawMegOnW7x6J2Sn5W MHc2ZK79ZA93jQKft1T0 jWM1W6JdDHPivkobmdhzmIW1KQSn PNZetZ45Yc0mfBpnCs7gFWFvXDW8 GUZwxJXiV3LpiJ2gLhGk XOAsBCGjS6WjjSFkNGibP819OVmg PcS8NRCendTuI4AiQVAoxMtdAeS0 h8L2Gu7JBMWaTP39YSX7 xQP0NB77YN38E4GoNbgltNQdiQI+ PHRhYmxlIHdpZHRoPScxMDAlJyBz yChrYK6cNo8hAAKwKNSc hArxcXAyXtTla1kqUFRcJFbyKR2w yIetS9PpnUL2OMQly5t3Tf07R39i V2BajVX+UNJnuPU8rUL3 iM9dGtMvIhG8RGijZ507XgNlqRQj Zorns9hhb2laxPu5JgA4DTNqksYr gUpbARQ3e7TiZt63C04t YVtuNMPlZCEuXTLqUJMuqGwivm7n hR6iUy7+FFRqkFP3eZL6sH0nMmLk NkC6YJojN559GiOloABt Jwvmr1iyu2izsFo5QfXjYREhhvGo jMwhZTE4i4MlMc92Q1SqyFejy6Ml Qcf6sl25mUQiw9O4xBB9 J6JqFGHccdewcBAuvXgnNX9vMGZv otqcLLQfeU7zAQGbT6m6LkGyUjN1 ZZseQ3HexvK4OLJctBFf CDayPQI2D92ev3A3CQSdYMZaCRJ5 zIH7gU2hwLcpyqqvkKMonVhlswAm vUklQHhlCAkfS988FAJx iLzrNXQbkU0jOLVkvCGziEygML3o NTBpbjsnPldFQVZFUiwgUkhPTkRB WSE8A0YbLny0FZGtoKto NZ7lsBJtDEfhPb5trEskzAzfXM3g GBFzvfenCHYlyW0lADUjpDBxjEqy MR3bDEViayfoz594PcWy UYE4HMGpaCJoT0JpuK0tPkZpAJWn GTBoY4FfyKNySWwlU645TFvgRyV6 XYBzjgQkI1PiYMQfgQbl QdU2g4D0Rr1uOy4bIf3dWHoqTI91 HT18rGImg4C0aWR8L6FxXTUaehlb gklnvMQ5ERVlOKRidL88 eSYqSRvpFc6mi4K6u569RPJdETNe bF83Qb6yrHnbQDKfdDPTvG7pktwu b0skejadLzMfGLBuMLc5 SDj2EJSeiUisSnAlOVM3BaM1KYI0 dMQenR9dcQucenzbiR3oCru+NTEg JATtwlV0B3HhCsd2TGGe cIlnMA0ivGEaMQodIj2imPnenNdz LU6pCLJfymeqYKQmsR0dKETpsBVl qEbdQX7lBFJfictgi858 EpXqERH6QSEqlUIyW4DdtN5cLtPq QNTbDQVcR8MraRMgYNuaN474OIxk OaQ7KLUcluFqI1WnMTXr dJduBwP5k4A3At6IFS1ebME9X0Ci Hgo5NGVgfLrxHY3tdUFfDAkuNu1v mIqyvJrtJD3wLFEhlfxt UPQjqN6cTBZmaVVosCvgUY1wBXYo isqsa637WeWmTAX6TWMizFPvJ4Ha kJ6iHzDsMJLkFCIgJ8Fo xWEcXNjyI271RFrpXmE2KZYotlHw I7XzPVHovVbbNiR5z5N5Tv1LhNWx S1AxR5z3J5PbLthbaXE+ HG39WMXdMW05iJUvwHThg9hrzYt7 JzIyHBLzOLO2mEovNJyea6WmHEBj Q10izUZuy0Q4TKYzaJza fUVxFcKhoQU8iD9gACrpxbsjq4mn jgugMmiyx9nrwr50nT97R65wCHvf ZHRoPSIzMCUiIHZhbGln tm4swO1qPs8+OZXttGV8wTT8kP5u TsGuUvM7IIjqM598GqZpwWKqIfjo k6fbz8wfkDp0LmVqOYZr sxRpqFfmEGJ7p9RoLd00Y48rUBuj OXMnUMYvINYkUWIysJfnkr6jcV3e Ii8+DW4sw1bgnr92bR22 dHI+OVRxQXE3qDeiETduMOOflM7i DTtwTwD8TXJuTmGxnV11qCKtDPfm Cu0ndKazuOygCA1oBNFc yygcj358DaHuw7klJQYncKBaXCdu QDS7J39ac2K2CIDhRDTlOCQ6lKS7 mK8poYnalkfagMJikAad uuQwsBynCYxuVVwtH264BWLiyAdh GdYlzTBgX0exwdIJYM9aNihzuZY+ BTDnMFA9oEtuFBflGXIk dA1kFFYyT9d0YwOxBuS0OYxeO4Up hiD7TFEvmBEuNZFsyHUHzZ9gjyuz q6ehlokzKtEmUMAeIRy9 ZKq5NWFwpJtkJzLfKFW1GpV2QFF7 zJPmcN0ztHlortedhD5xEky+RklO OjwvdGQ+PWKkYPC1yOtb FQtkRXUpwA6vEGVmI7n3LuGkCbU4 ZBguX8FclmW8PSZysZCgPDNhkBCF jI5glixjj3nfbajhNsTv XGGaHOx8IPu6HSOcjDcmUcItTUM9 SsY8PHR0yAZmtJ5viRsxwcupzT0t Oyc+TVJOOjwvdGQ+PHRk ZJQ8pEctJVxfNPIlnB0iKYBnO9q9 RyXoFvW6CRvdC2YlvgK6YMCzdSDj JXJtmTGYmH4mfikms3dj ymccZeFfXVKlSUd0IRf8JDVfcLki FzBzQMA5IzD8QHH7sTUvwN7tlGba rhhdtP2lBqc+CUF4AAZ8 PA53MF60U3BlCxjvbYHtgXH+PHRh YmxlIHdpZHRoPScxMDAlJyBzdHls WX6rKm1mWKAeDJUjvXeh cHNl (more content not included)... Normal [facility] Amylaseon 12-03-2021 Amylase [Catalytic activity/Vol] 32 U/L Normal 25-157 [facility] Comment on above: Performed By: #### 1 [id number], [id number], [id number], [id number], [id number], [id number] #### [facility] [address] [place] [address] Auto Diffon 12-03-2021 Basophils/100 WBC (Bld) 0.6 % Normal 0.0-2.0 [facility] Comment on above: Order Comment: Order Added by Discern Expert. Performed By: #### 1 [id number], [id number], [id number], [id number], [id number], [id number] #### [facility] [address] [place] [address] Basophils/Leukocyte s Auto (Bld) [Pure # fraction] 0.1 E9/L Normal 0.0-0.2 [facility] Comment on above: Order Comment: Order Added by Discern Expert. Performed By: #### 1 [id number], [id number], [id number], [id number], [id number], [id number] #### [facility] [address] [place] [id number] Eosinophils/100 WBC (Bld) 0.1 % Normal 0.0-8.0 [facility] Comment on above: Order Comment: Order Added by Discern Expert. Performed By: #### 1 [id number], 1030986, 1857884, 6235185, [id number], [id number] #### [facility] [address] [place] [id number] Eosinophils/Leukocy lefty Auto (Bld) [Pure # fraction] 0.0 E9/L Normal 0.0-0.5 [facility] Comment on above: Order Comment: Order Added by Discern Expert. Performed By: #### 1 [id number], [id number], 4958955, 2353524, 0786406, [id number], [id number] #### [facility] [address] [place] [address] [address] Lymphocytes/100 WBC (Bld) 16.1 % Normal 14.0-50.0 [facility] Comment on above: Order Comment: Order Added by Discern Expert. Performed By: #### 1 1480158, 6827308, 5931545, 8725622, 8742091, 8669978, 6601450 #### [facility] [address] [place] [address] Lymphocytes/Leukocy lefty Auto (Bld) [Pure # fraction] 1.5 E9/L Normal 1.0-4.0 [facility] Comment on above: Order Comment: Order Added by Discern Expert. Performed By: #### 1 [id number], 2869950, 8506209, 7440628, 1966846, 4024473, 1051337 #### [facility] [address] [place] [address] Monocytes/100 WBC (Bld) 4.6 % Normal 4.0-14.0 [facility] Comment on above: Order Comment: Order Added by Discern Expert. Performed By: #### 1 2187586, 9202806, 3668816, 3876764, 3328811, 1588781, 7041863 #### [facility] [address] [place] [address] Monocytes/Leukocyte s Auto (Bld) [Pure # fraction] 0.4 E9/L Normal 0.2-1.0 [facility] Comment on above: Order Comment: Order Added by Discern Expert. Performed By: #### 1 7371020, 8571592, 0895056, 1418823, 6018339, 1413477, 9588407 #### [facility] [address] [place] [address] Neutrophils/100 WBC (Bld) 78.6 % High 36.0-75.0 [facility] Comment on above: Order Comment: Order Added by Discern Expert. Performed By: #### 1 4556174, 8486074, 3516295, 3497234, 2550767, 6137339, 8100753 #### [facility] [address] [place] [address] Neutrophils/Leukocy lefty Auto (Bld) [Pure # fraction] 7.6 E9/L High 2.0-7.5 [facility] Comment on above: Order Comment: Order Added by Discern Expert. Performed By: #### 1 7675041, 4734991, 3536620, 5051010, 6389087, 7052088, 3570741 #### [facility] [address] [place] [address] BMPon 12-03-2021 Creatinine [Mass/Vol] 1.1 mg/dL Normal 0.5-1.3 [facility] Comment on above: Performed By: #### 1 2709842, 4044753, 0385971, 0220097, 8119257, 5746625, 1875808 #### [facility] [address] [place] [address] Urea nitrogen [Mass/Vol] 21 mg/dL Normal 5-21 [facility] Comment on above: Performed By: #### 1 2722922, 3557715, 5525301, 5433349, 4476940, 0189979, 4635583 #### [facility] [address] [place] [address] Urea nitrogen/Creatinine [Mass ratio] 19 No Units Normal 10-20 [facility] Comment on above: Performed By: #### 1 5661813, 4231267, 6130304, 5359838, 4573440, 6530438, 4897909 #### [facility] [address] [place] [address] Anion gap [Moles/Vol] 22 mmol/L High 6-16 [facility] Comment on above: Performed By: #### 1 4406891, 5314579, 1857004, 5329306, 0812449, 0912644, 4712927 #### [facility] [address] [place] [address] Calcium [Mass/Vol] 9.8 mg/dL Normal 8.9-11.1 [facility] Comment on above: Performed By: #### 1 1193517, 2366773, 3127045, 3018590, 3102968, 4619176, 0499520 #### [facility] [address] [place] [address] Chloride [Moles/Vol] 96 mmol/L Low 101-111 [facility] Comment on above: Performed By: #### 1 7239046, 0727492, 8275450, 1464519, 9261730, 2893536, 6940078 #### [facility] [address] [place] [address] CO2 [Moles/Vol] 19 mmol/L Low 21-31 [facility] Comment on above: Performed By: #### 1 9882213, 7026569, 6823225, 1061518, 1178655, 6058487, 3611918 #### [facility] [address] [place] [address] Glucose [Mass/Vol] 64 mg/dL Normal 55-199 [facility] Comment on above: Result Comment: If t his glucose result represents a fasting glucose, interpretation should refer to the following reference range: 55-99 mg/dL Performed By: #### 1 6290341, 3862098, 5224067, 2120120, 3512056, 1610913, 2291463 #### [facility] [address] [place] [address] Potassium [Moles/Vol] 4.3 mmol/L Normal 3.5-5.3 [facility] Comment on above: Performed By: #### 1 7642911, 1076718, 4470007, 7370476, 8842672, 5652120, 3231360 #### [facility] [address] [place] [address] Sodium [Moles/Vol] 133 mmol/L Low 135-145 [facility] Comment on above: Performed By: #### 1 1026776, 8402891, 4581770, 4418879, 4012484, 0175034, 4948853 #### [facility] [address] [place] [address] CBC w/ Auto Diffon Erythrocyte distribution width (RBC) [Ratio] 13.5 % Normal 10.9-14.2 [facility] Comment on above: Performed By: #### 1 4104592, 7856451, 4736639, 7545510, 3762954, 4963443, 4722166 #### [facility] [address] [place] [address] Hematocrit (Bld) [Volume fraction] 51.0 % High 34.0-46.0 [facility] Comment on above: Performed By: #### 1 7089408, 3044474, 0903785, 7996450, 7055795, 2911392, 8815942 #### [facility] [address] [place] [address] Hemoglobin (Bld) [Mass/Vol] 16.8 g/dL High 12.0-16.0 [facility] Comment on above: Performed By: #### 1 2651100, 9412033, 3452153, 0400442, 8737314, 5389596, 4663378 #### [facility] [address] [place] [address] MCH (RBC) [Entitic mass] 30.9 pg Normal 27.0-34.0 [facility] Comment on above: Performed By: #### 1 4018026, 7492077, 1197044, 0564263, 6422503, 5904539, 7624275 #### [facility] [address] [place] [address] MCHC (RBC) [Mass/Vol] 32.9 g/dL Normal 31.4-36.0 [facility] Comment on above: Performed By: #### 1 3184554, 9930358, 0739366, 0015512, 6214892, 3137316, 6766849 #### [facility] [address] [place] [address] MCV (RBC) [Entitic vol] 94.0 fL Normal 80.0-100.0 [facility] Comment on above: Performed By: #### 1 4686658, 7182121, 0232288, 4277352, 9657814, 5933312, 7108454 #### [facility] [address] [place] [address] Platelet mean volume (Bld) [Entitic vol] 9.8 fL Normal 6.4-10.8 [facility] Comment on above: Performed By: #### 1 6071777, 3635582, 8932103, 2122541, 3474313, 9315969, 4142195 #### [facility] [address] [place] [address] Platelets (Bld) [#/Vol] 212.0 E9/L Normal 150.0-500.0 [facility] Comment on above: Performed By: #### 1 6399228, 0379944, 6620493, 4116810, 8226157, 7032696, 4461582 #### [facility] [address] [place] [address] RBC (Bld) [#/Vol] 5.4 E12/L Normal 4.3-5.9 [facility] Comment on above: Performed By: #### 1 3424598, 2878213, 4007799, 6755315, 0766960, 8272843, 9351175 #### [facility] [address] [place] [address] WBC corrected for nucl RBC Auto (Bld) [#/Vol] 9.6 E9/L Normal 4.0-11.0 [facility] Comment on above: Performed By: #### 1 1373285, 9942639, 3884272, 4283323, 5213651, 6043689, 1052771 #### [facility] [address] [place] [address] Consent for Treatmenton 11-16 Consent for Treatment [id number]:[address] [facility] Discharge Instructionson Discharge Instructions [id number]:[address] [facility] ED Clinical Summaryon 2021 ED Clinical Summary (Inserted Image. Antoinette ble to display) [address] [address] ED Clinical Summary Person Information Name: SAI PINEDA Natalie/[facility] Age: 51 Years : 1970 Sex: Female Language: Azeri PCP: CRISTINA IQBAL CNP Marital Status: Visit Id: Visit Reason: Nausea; Abdominal pain; YIYUV-BLVJU-GOIN BREATHING Speciality: Acuity: 3 Enc Type: Emergency [...] 12/03/2021 13:54:54 12/03/2021 13:54:54 12/03/2021 13:54:54 ADDRESS: [address] [place] [phone] PHYS DOC NOTES: MEDICAL INFORMATION: Prescriptions Given: New Medications [facility]/pharmacy #[id number], [address] [employer] [address], [place] [id number], [phone] promethazine (Phenergan 25 mg Supp) 1 Suppositories By rectum every 6 hours as needed as needed for nausea. Insert one per rectum every six hours as needed for nausea and vomiting. Refills: 0. promethazine (promethazine 25 mg Tab) 1 Tablets By Mouth every 4 hours. Refills: 0. Medications to Continue Taking That Have Changed [facility]/pharmacy #[id number], [address], [place] [phone], [phone] START: pantoprazole (Protonix 40 mg Tab-DR) 1 [...] day. PATIENT EDUCATION INFORMATION: Instructions: Gastritis, Adult, Wmno-jr-Bjqw; Abdominal Pain, Adult Follow up: With: Address: When: CRISTINA ROGER [address] [place], [place] [phone] Business (1) In 3 days 12/06/2021 DIAGNOSIS: 1:Upper abdominal pain; 2:Gastritis; 3:Anxiety Normal [facility] ED Note-Physicianon 12-04-19 ED Note-Physician Basic [...] Daily, # 30 tab(s), Refills(s) 0, [id number], 172.9, cm, 12/03/21 10:15:00 EDT, Height/Length Dosing, 46.2, kg, 12/03/21 10:15:00 EDT, Weight Dosing promethazine, 25 mg = 1 tab(s), Oral, q4hr, # 12 tab(s), Refills(s) 0, [id number], 172.9, cm, 12/03/21 10:15:00 EDT, Height/Length Dosing, 46.2, kg, 12/03/21 10:15:00 EDT, Weight Dosing promethazine, 25 mg = 1 supp, Rectal, q6hr, PRN as needed for nausea, Insert one per rectum every six hours as needed for nausea and vomiting, # 6 EA, Refills(s) 0, [id number], 172.9, cm, 12/03/21 10:15:00 EDT, [...] mg/mL IV Misty, 20 mg, IV Push [id number] [F], 1000 mL, IV promethazine 25 mg/mL [...] 3 days 12/06/2021 EDT [address] [place] [address] [phone] Business (1) Additional Instructions: Patient Ed (more content not included)... Normal [facility] Comment on above: Result Comment: Elec [...] these instructions at home: Medicines ? Take ahee-gam-nqwgkhy and prescription medicines only as told by [...] 08/20/2008 Document Revised: 07/22/2018 Document Reviewed: 07/22/2018 [employer] Patient Education ? 2020 [employer]. Abdominal Pain, Adult Pain in the abdomen [...] these instructions at home: Medicines ? Take yxyu-xjm-jajmsfq and prescription medicines only as told by [...] are cons (more content not included)... Normal [facility] ED Patient Summaryon 022 ED Patient Summary (Inserted Image. Antoinette ble to display) [place] [id number] Patient Discharge Instructions Person Information Name: SAI PINEDA Age: 51 Years Arrival Date: 12/03/2021 09:55:45 Discharge Diagnosis: 1:Upper abdominal pain; 2:Gastritis; 3:Anxiety Primary Care Physician: CRISTINA IQBAL CNP Provider Information Primary Provider: Vipin Pina MD Advanced Digital [employer] Representative:None The exam and treatment you received in the Emergency Department were for an urgent problem and are not intended as complete care. It is important that you follow up with a doctor, nurse practitioner, or physician?s under water assistant for ongoing care. If your symptoms [...] When: CRISTINA IQBAL [address], [place], [place] [phone] Business (1) In 3 days 12/06/2021 In the event that this physician does not participate in your insurance network, please consult with your insurance company to find a nearby participating provider. Patient Education Materials: Gastritis, Adult, Kbgw-jx-Pbbj; Abdominal Pain, Adult A MESSAGE TO ALL PATIENTS REGARDING OPIOIDS PRESCRIPTION OPIOIDS: WHAT YOU NEED TO KNOW Prescription opioids can be used to help relieve rhmbnxki-ww-vaqizk pain and are often prescribed following a [...] be struggling with addiction, tell your health small animal caretaker and ask for guidance or call [facility]? (more content not included)... Normal [facility] Hep Func Panelon 12-03-2021 Albumin [Mass/Vol] 5.3 g/dL High 3.3-5.0 [facility] Comment on above: Performed By: #### 1 6903368, 3191627, 9503941, 9401931, 3103568, 5994821, 1750124 #### [facility] [address] [place] [address] Albumin/Globulin (S) [Mass conc ratio] 1.8 Normal 1.1-2.2 [facility] Comment on above: Performed By: #### 1 0996857, 0140228, 1750924, 1658476, 3537645, 8927334, 3086093 #### [facility] [address] [place] [address] ALP [Catalytic activity/Vol] 79 Int._Unit/L Normal 21-98 [facility] Comment on above: Performed By: #### 1 5331749, 9072051, 4721618, 7247656, 7069198, 1486856, 1479017 #### [facility] [address] [place] [address] ALT No additional P-5'-P [Catalytic activity/Vol] 14 Int._Unit/L Normal 6-46 [facility] Comment on above: Performed By: #### 1 4871169, 0638868, 2985536, 8217710, 0150967, 1684623, 3385109 #### [facility] [address] [place] [address] AST [Catalytic activity/Vol] 21 Int._Unit/L Normal 5-43 [facility] Comment on above: Performed By: #### 1 3418815, 7903782, 9375640, 0496941, 7150823, 3659190, 1671694 #### [facility] [address] [place] [address] Bilirubin [Mass/Vol] 1.2 mg/dL High 0.0-1.1 [facility] Comment on above: Performed By: #### 1 4847709, 6748877, 3239996, 6574674, 9083646, 3614302, 7565029 #### [facility] [address] [place] [address] Bilirubin.direct [Mass/Vol] 0.2 mg/dL Normal 0.1-0.4 [facility] Comment on above: Performed By: #### 1 8180376, 1551098, 8094838, 1116595, 3987589, 7909299, 9276602 #### [facility] [address] [place] [address] Bilirubin.indirect [Mass or moles/Vol] 1.0 mg/dL High 0.1-0.9 [facility] Comment on above: Performed By: #### 1 7007443, 0945471, 1879352, 2319209, 6967462, 8323584, 7081488 #### [facility] [address] [place] [address] Globulin (S) [Mass/Vol] 3.0 g/dL Normal 1.4-4.0 [facility] Comment on above: Performed By: #### 1 7528291, 1944287, 9514333, 9912932, 6301546, 8872071, 3046044 #### [facility] [address] [place] [address] Protein [Mass/Vol] 8.3 g/dL High 6.0-7.8 [facility] Comment on above: Performed By: #### 1 3626685, 0201326, 1405036, 6402143, 9035278, 0772344, 3393719 #### [facility] [address] [place] [address] Lipase Levelon 12-03-2021 Lipase [Catalytic activity/Vol] 21 U/L Normal 13-58 [facility] Comment on above: Performed By: #### 1 8752033, 5144621, 0003841, 5358563, 8298120, 2120703, 8277462 #### [facility] [address] [place] [address] eGFRon 12-03-2021 GFR/1.73 sq M.predicted among blacks MDRD (S/P/Bld) [Vol rate/Area] mL/min/{1.73_m2} Normal >=59 [facility] Comment on above: Order Comment: Order added by Discern Expert. Result Comment: eGFR is race adjusted. AA=. Performed By: #### 1 7319902, 4273191, 4406101, 4044947, 3840371, 9616715, 0613358 #### [facility] [address] [place] [address] GFR/1.73 sq M.predicted among non-blacks MDRD (S/P/Bld) [Vol rate/Area] 52 mL/min/1.73 m2 Low >=59 [facility] Comment on above: Order Comment: Order added by Discern Expert. Result Comment: Smocker julian kidney disease could be indicated at eGFR's of less than 60 mL/min/1.73m2. Kidney failure is indicated at less than 15 mL/min/1.73m2. Performed By: #### 1 0871536, 5089704, 8924027, 4533241, 3932012, 6329998, 4509597 #### [facility] [address] [place] [address] CARDIAC SIMA ADMITon 022 CK [Catalytic activity/Vol] 72 U/L Normal 26-192 [facility] Comment on above: Performed By: #### S ELNIUM #### [facility] [address] [place] [address] Dr. Prince Olivas CK.MB [Mass/Vol] 1.28 ng/mL Normal <=3.60 [facility] Comment on above: Performed By: #### S ADOREUM #### [facility] [address] [place] [address] Dr. Prince Olivas HSTROP 5.4 pg/mL Normal 4.0-51.3 [facility] Comment on above: Result Comment: CUT- OFF POINTS HAVE BEEN ESTABLISHED BASED ON THE FOURTH UNIVERSAL DEFINITIONS OF MYOCARDIAL INFARCTION. THE UPPER REFERENCE LIMIT (URL) OF TROPONIN, DEFINED THE 99TH PERCENTILE OF cTnI DISTRIBUTION IN A REFERENCE POPULATION, HAS BEEN CONFIRMED THE DECISION THRESHOLD FOR HI DIAGNOSIS. Performed By: #### S ELNIUM #### [facility] [address] [place] [address] Dr. Prince Olivas JENNIFER 58 ng/mL Normal 9-82 [facility] Comment on above: Performed By: #### S ELNIUM #### [facility] [address] [place] [address] Dr. Prince Olivas CBC AUTO DIFFon 11-14-2021 BASO # 0.1 103/ul Normal 0.0-0.1 [facility] Comment on above: Performed By: #### L IPID, CMP #### [facility] [address] [place] [address] Dr. Prince Olivas Basophils/100 WBC (Bld) 0.6 % Normal 0.2-2.0 [facility] Comment on above: Performed By: #### L IPID, CMP #### [facility] [address] [place] [address] Dr. Prince Olivas EO # 0.1 103/ul Normal 0.0-0.7 [facility] Comment on above: Performed By: #### L IPID, CMP #### [facility] [address] [place] [address] Dr. Prince Olivas Eosinophils/100 WBC (Bld) 0.9 % Normal 0.9-7.0 [facility] Comment on above: Performed By: #### L IPID, CMP #### [facility] [address] [place] [address] Dr. Prince Olivas Erythrocyte distribution width (RBC) [Ratio] 13.0 % Normal 11.0-15.0 [facility] Comment on above: Performed By: #### L IPID, CMP #### [facility] [address] [place] [address] Dr. Prince Olivas Hematocrit (Bld) [Volume fraction] 46.3 % Normal 36.0-48.0 [facility] Comment on above: Performed By: #### L IPID, CMP #### [facility] [address] [place] [address] Dr. Prince Olivas Hemoglobin (Bld) [Mass/Vol] 15.8 g/dL Normal 12.0-16.0 [facility] Comment on above: Performed By: #### L IPID, CMP #### [facility] [address] [place] [address] Dr. Prince Olivas IG # 0.03 10e3/ul Normal 0.00-0.03 [facility] Comment on above: Performed By: #### L IPID, CMP #### [facility] [address] [place] [address] Dr. Prince Olivas IG % 0.3 % Normal 0.0-0.5 [facility] Comment on above: Performed By: #### L IPID, CMP #### [facility] [address] [place] [address] Dr. Prince Olivas LYMPH # 2.8 103/ul Normal 1.2-3.8 [facility] Comment on above: Performed By: #### L IPID, CMP #### [facility] [address] [place] [address] Dr. Prince Olivas Lymphocytes/100 WBC (Bld) 31.8 % Normal 20.5-60.0 [facility] Comment on above: Performed By: #### L IPID, CMP #### [facility] [address] [place] [address] Dr. Prinec Olivas MANUAL DIFF REQ NO Normal [facility] Comment on above: Performed By: #### L IPID, CMP #### [facility] [address] [place] [address] Dr. Prince Olivas MCH (RBC) [Entitic mass] 31.5 pg Normal 26.7-34.0 [facility] Comment on above: Performed By: #### L IPID, CMP #### [facility] [address] [place] [address] Dr. Prince Olivas MCHC (RBC) [Mass/Vol] 34.1 g/dL Normal 29.9-35.2 [facility] Comment on above: Performed By: #### L IPID, CMP #### [facility] [address] [place] [address] Dr. Prince Olivas MCV (RBC) [Entitic vol] 92.4 fL Normal 81.0-99.0 [facility] Comment on above: Performed By: #### L IPID, CMP #### [facility] [address] [place] [address] Dr. Prince Olivas MONO # 0.6 103/ul Normal 0.3-0.8 [facility] Comment on above: Performed By: #### L IPID, CMP #### [facility] [address] [place] [address] Dr. Prince Olivas Monocytes/100 WBC (Bld) 6.8 % Normal 1.7-12.0 [facility] Comment on above: Performed By: #### L IPID, CMP #### [facility] [address] [place] [address] Dr. Prince Olivas NEUT # 5.3 103/ul Normal 1.4-6.5 [facility] Comment on above: Performed By: #### L IPID, CMP #### [facility] [address] [place] [address] Dr. Prince Olivas Neutrophils/100 WBC (Bld) 59.6 % Normal 43.0-75.0 [facility] Comment on above: Performed By: #### L IPID, CMP #### [facility] [address] [place] [address] Dr. Prince Olivas Platelet mean volume (Bld) [Entitic vol] 11.6 fL Normal 9.5-13.5 [facility] Comment on above: Performed By: #### L IPID, CMP #### [facility] [address] [place] [address] Dr. Prince Olivas PLT 185 103/ul Normal 150-450 [facility] Comment on above: Performed By: #### L IPID, CMP #### [facility] [address] [place] [address] Dr. Prince Olivas RBC 5.01 106/ul Normal 4.20-5.40 [facility] Comment on above: Performed By: #### L IPID, CMP #### [facility] [address] [place] [address] Dr. Prince Olivas WBC 8.9 103/ul Normal 4.0-11.0 [facility] Comment on above: Performed By: #### L IPID, CMP #### [facility] [address] [place] [address] Dr. Prince Olivas LIPASEon 11-14-2021 Lipase [Catalytic activity/Vol] 84.0 U/L Normal 73.0-393.0 [facility] Comment on above: Performed By: #### S ELNIUM #### [facility] [address] [place] [address] Dr. Prince Olivas PROF 14(COMP METB)on 022 Albumin [Mass/Vol] 4.1 g/dL Normal 3.4-5.0 [facility] Comment on above: Performed By: #### S ELNIUM #### [facility] [address] [place] [address] [address] Prince Olivas Albumin/Globulin [Mass ratio] 1.6 {ratio} Normal [facility] Comment on above: Performed By: #### S ELNIUM #### [facility] [address] [place] [address] [address] Prince Olivas ALP [Catalytic activity/Vol] 76 U/L Normal 46-116 [facility] Comment on above: Performed By: #### S ELNIUM #### [facility] [address] [place] [address] [address] Prince Olivas ALT [Catalytic activity/Vol] 14 U/L Normal 14-59 [facility] Comment on above: Performed By: #### S ELNIUM #### [facility] [address] [place] [address] [address] Prince Olivas Anion gap [Moles/Vol] 17.7 mmol/L Normal [facility] Comment on above: Performed By: #### S ELNIUM #### [facility] [address] [place] [address] [address] Prince Olivas AST [Catalytic activity/Vol] 15 U/L Normal 15-37 [facility] Comment on above: Performed By: #### S ELNIUM #### [facility] [address] [address] [address] Prince Olivas Bilirubin [Mass/Vol] 0.7 mg/dL Normal 0.2-1.0 [facility] Comment on above: Performed By: #### S ELNIUM #### [facility] [address] [place] [address] [address] Prince Olivas Calcium [Mass/Vol] 9.4 mg/dL Normal 8.5-10.1 [facility] Comment on above: Performed By: #### S ELNIUM #### [facility] [address] [place] [address] [address] Prince Olivas Chloride [Moles/Vol] 104 mmol/L Normal 98-107 [facility] Comment on above: Performed By: #### S ELNIUM #### [facility] [address] [place] [address] [address] Prince Olivas CO2 [Moles/Vol] 20.8 mmol/L Critically low 21.0-32.0 [facility] Comment on above: Performed By: #### S ELNIUM #### [facility] [address] [address] [address] Prince Olivas Creatinine [Mass/Vol] 0.96 mg/dL Normal 0.55-1.02 [facility] Comment on above: Performed By: #### S ELNIUM #### [facility] [address] [place] [address] [address] Prince Olivas EGFR-AF MARSHALLESE >60 Normal >=60 [facility] Comment on above: Performed By: #### S ELNIUM #### [facility] [address] [place] [address] [address] Prince Olivas EGFR-NON AF MARSHALLESE >60 Normal >=60 [facility] Comment on above: Performed By: #### S ELNIUM #### [facility] [address] [place] [address] [address] Prince Olivas Globulin (S) [Mass/Vol] 2.6 g/dL Normal [facility] Comment on above: Performed By: #### S ELNIUM #### [facility] [address] [place] [address] [address] Prince Olivas Glucose [Mass/Vol] 104 mg/dL Normal 74-106 [facility] Comment on above: Performed By: #### S ELNIUM #### [facility] [address] [address] [address] Prince Olivas Potassium [Moles/Vol] 3.5 mmol/L Normal 3.5-5.1 [facility] Comment on above: Performed By: #### S ELNIUM #### [facility] [facility] [address] [address] [address] Prince Olivas Protein [Mass/Vol] 6.7 g/dL Normal 6.4-8.2 [facility] Comment on above: Performed By: #### S ELNIUM #### [facility] [address] [address] [address] Prince Olivas Sodium [Moles/Vol] 139 mmol/L Normal 136-145 [facility] Comment on above: Performed By: #### S ELNIUM #### [facility] [address] [address] [address] Prince Olivas Urea nitrogen [Mass/Vol] 10.0 mg/dL Normal 7.0-18.0 [facility] Comment on above: Performed By: #### S ELNIUM #### [facility] [address] [address] [address] Prince Olivas Urea nitrogen/Creatinine [Mass ratio] 10.4 mg/mg Normal [facility] Comment on above: Performed By: #### S ELNIUM #### [facility] [address] [place] [address] Dr. Prince Olivas XR ABD FLAT UP_PA [...] CHITRA ALFARO Date: 2021-11-14 18:10 Normal [facility] CBC AUTO DIFFon 11-09-2021 BASO # 0.0 103/ul Normal 0.0-0.1 [facility] Comment on above: Performed By: #### S ELNIUM #### [facility] [address] [address] [address] Prince Olivas Basophils/100 WBC (Bld) 0.3 % Normal 0.2-2.0 [facility] Comment on above: Performed By: #### S ELNIUM #### [facility] [address] [place] [address] Dr. Prince Olivas EO # 0.0 103/ul Normal 0.0-0.7 [facility] Comment on above: Performed By: #### S ELNIUM #### [facility] [address] [place] [address] Dr. Prince Olivas Eosinophils/100 WBC (Bld) 0.3 % Critically low 0.9-7.0 [facility] Comment on above: Performed By: #### S ELNIUM #### [facility] [address] [place] [address] Dr. Prince Olivas Erythrocyte distribution width (RBC) [Ratio] 13.1 % Normal 11.0-15.0 [facility] Comment on above: Performed By: #### S ELNIUM #### [facility] [address] [place] [address] Dr. Prince Olivas Hematocrit (Bld) [Volume fraction] 46.8 % Normal 36.0-48.0 [facility] Comment on above: Performed By: #### S ELNIUM #### [facility] [address] [place] [address] Dr. Prince Olivas Hemoglobin (Bld) [Mass/Vol] 15.8 g/dL Normal 12.0-16.0 [facility] Comment on above: Performed By: #### S ELNIUM #### [facility] [address] [place] [address] Dr. Prince Olivas IG # 0.03 10e3/ul Normal 0.00-0.03 [facility] Comment on above: Performed By: #### S ELNIUM #### [facility] [address] [place] [address] Dr. Prince Olivas IG % 0.3 % Normal 0.0-0.5 [facility] Comment on above: Performed By: #### S ELNIUM #### [facility] [address] [place] [address] Dr. Prince Olivas LYMPH # 2.9 103/ul Normal 1.2-3.8 [facility] Comment on above: Performed By: #### S ELNIUM #### [facility] [address] [address] [address] Prince Olivas Lymphocytes/100 WBC (Bld) 31.7 % Normal 20.5-60.0 [facility] Comment on above: Performed By: #### S ELNIUM #### [facility] [address] [address] [address] Prince Olivas MANUAL DIFF REQ NO Normal [facility] Comment on above: Performed By: #### S ELNIUM #### [facility] [address] [address] [address] Prince Olivas MCH (RBC) [Entitic mass] 31.9 pg Normal 26.7-34.0 [facility] Comment on above: Performed By: #### S ELNIUM #### [facility] [address] [place] [address] Dr. Prince Olivas MCHC (RBC) [Mass/Vol] 33.8 g/dL Normal 29.9-35.2 [facility] Comment on above: Performed By: #### S ELNIUM #### [facility] [address] [address] [address] Prince Olivas MCV (RBC) [Entitic vol] 94.5 fL Normal 81.0-99.0 [facility] Comment on above: Performed By: #### S ELNIUM #### [facility] [address] [address] [address] Prince Olivas MONO # 0.5 103/ul Normal 0.3-0.8 [facility] Comment on above: Performed By: #### S ELNIUM #### [facility] [address] [address] [address] Prince Olivas Monocytes/100 WBC (Bld) 5.2 % Normal 1.7-12.0 [facility] Comment on above: Performed By: #### S ELNIUM #### [facility] [address] [address] [address] Prince Olivas NEUT # 5.8 103/ul Normal 1.4-6.5 [facility] Comment on above: Performed By: #### S ELNIUM #### [facility] [address] [address] [address] Prince Olivas Neutrophils/100 WBC (Bld) 62.2 % Normal 43.0-75.0 [facility] Comment on above: Performed By: #### S ELNIUM #### [facility] [address] [address] [address] Prince Olivas Platelet mean volume (Bld) [Entitic vol] 11.1 fL Normal 9.5-13.5 [facility] Comment on above: Performed By: #### S ELNIUM #### [facility] [address] [place] [address] Dr. Prince Olivas PLT 218 103/ul Normal 150-450 [facility] Comment on above: Performed By: #### S ELNIUM #### [facility] [address] [place] [address] Dr. Prince Olivas RBC 4.95 106/ul Normal 4.20-5.40 [facility] Comment on above: Performed By: #### S ELNIUM #### [facility] [address] [place] [address] Dr. Prince Olivas WBC 9.3 103/ul Normal 4.0-11.0 [facility] Comment on above: Performed By: #### S ELNIUM #### [facility] [address] [place] [address] Dr. Prince Olivas PROF CHEM 8 (BAS METB)on Anion gap [Moles/Vol] 14.8 mmol/L Normal [facility] Comment on above: Performed By: #### C OPPER #### [facility] [address] [place] [address] Dr. Prince Olivas Calcium [Mass/Vol] 9.3 mg/dL Normal 8.5-10.1 [facility] Comment on above: Performed By: #### C OPPER #### [facility] [address] [place] [address] Dr. Prince Olivas Chloride [Moles/Vol] 105 mmol/L Normal 98-107 [facility] Comment on above: Performed By: #### C OPPER #### [facility] [address] [address] [address] Prince Olivas CO2 [Moles/Vol] 23.7 mmol/L Normal 21.0-32.0 [facility] Comment on above: Performed By: #### C OPPER #### [facility] [address] [place] [address] Dr. Prince Olivas Creatinine [Mass/Vol] 0.95 mg/dL Normal 0.55-1.02 [facility] Comment on above: Performed By: #### C OPPER #### [facility] [address] [place] [address] Dr. Prince Olivas EGFR-AF MARSHALLESE >60 Normal >=60 [facility] Comment on above: Performed By: #### C OPPER #### [facility] [address] [place] [address] Dr. Prince Olivas EGFR-NON AF MARSHALLESE >60 Normal >=60 [facility] Comment on above: Performed By: #### C OPPER #### [facility] [address] [place] [address] Dr. Prince Olivas Glucose [Mass/Vol] 103 mg/dL Normal 74-106 [facility] Comment on above: Performed By: #### C OPPER #### [facility] [address] [place] [address] Dr. Prince Olivas Potassium [Moles/Vol] 3.5 mmol/L Normal 3.5-5.1 [facility] Comment on above: Performed By: #### C OPPER #### [facility] [address] [place] [address] Dr. Prince Olivas Sodium [Moles/Vol] 140 mmol/L Normal 136-145 [facility] Comment on above: Performed By: #### C OPPER #### [facility] [address] [place] [address] Dr. Prince Olivas Urea nitrogen [Mass/Vol] 7.0 mg/dL Normal 7.0-18.0 [facility] Comment on above: Performed By: #### C OPPER #### [facility] [address] [address] [address] Prince Olivas Urea nitrogen/Creatinine [Mass ratio] 7.4 mg/mg Normal [facility] Comment on above: Performed By: #### C OPPER #### [facility] [address] [place], [place] [address] Dr. Prince Olivas TROPONIN, HIGH SENSITIVITYon 11-09-2021 HSTROP 4.3 pg/mL Normal 4.0-51.3 [facility] Comment on above: Result Comment: CUT- OFF POINTS HAVE BEEN ESTABLISHED BASED ON THE FOURTH UNIVERSAL DEFINITIONS OF MYOCARDIAL INFARCTION. THE UPPER REFERENCE LIMIT (URL) OF TROPONIN, DEFINED THE 99TH PERCENTILE OF cTnI DISTRIBUTION IN A REFERENCE POPULATION, HAS BEEN CONFIRMED THE DECISION THRESHOLD FOR HI DIAGNOSIS. Performed By: #### C OPPER #### [facility] [address] [address] [address] Prince Olivas XR CHEST 1 Von [...] BELEN REGAN Date: 2021-11-09 17:05 Normal [facility] CARDIAC SIMA ADMITon 022 CK [Catalytic activity/Vol] 62 U/L Normal 26-192 [facility] Comment on above: Performed By: #### M MA2 #### [facility] [address] [address] [address] Prince Olivas CK.MB [Mass/Vol] 0.37 ng/mL Normal <=3.60 [facility] Comment on above: Performed By: #### M MA2 #### [facility] [address] [address] [address] Prince Olivas HSTROP 3.5 pg/mL Critically low 4.0-51.3 [facility] Comment on above: Result Comment: CUT- OFF POINTS HAVE BEEN ESTABLISHED BASED ON THE FOURTH UNIVERSAL DEFINITIONS OF MYOCARDIAL INFARCTION. THE UPPER REFERENCE LIMIT (URL) OF TROPONIN, DEFINED THE 99TH PERCENTILE OF cTnI DISTRIBUTION IN A REFERENCE POPULATION, HAS BEEN CONFIRMED THE DECISION THRESHOLD FOR HI DIAGNOSIS. Performed By: #### M MA2 #### [facility] [address] [place] [address] Dr. Prince Olivas JENNIFER 40 ng/mL Normal 9-82 [facility] Comment on above: Performed By: #### M MA2 #### [facility] [address] [place] [address] Dr. Prince Olivas CBC AUTO DIFFon 10-04-2021 BASO # 0.0 103/ul Normal 0.0-0.1 [facility] Comment on above: Performed By: #### C BC #### [facility] [address] [place] [address] Dr. Prince Olivas Basophils/100 WBC (Bld) 0.6 % Normal 0.2-2.0 [facility] Comment on above: Performed By: #### C BC #### [facility] [address] [place] [address] Dr. Prince Olivas EO # 0.3 103/ul Normal 0.0-0.7 [facility] Comment on above: Performed By: #### C BC #### [facility] [address] [place] [address] Dr. Prince Olivas Eosinophils/100 WBC (Bld) 3.7 % Normal 0.9-7.0 [facility] Comment on above: Performed By: #### C BC #### [facility] [address] [place] [address] Dr. Prince Olivas Erythrocyte distribution width (RBC) [Ratio] 13.4 % Normal 11.0-15.0 [facility] Comment on above: Performed By: #### C BC #### [facility] [address] [place] [address] Dr. Prince Olivas Hematocrit (Bld) [Volume fraction] 42.8 % Normal 36.0-48.0 [facility] Comment on above: Performed By: #### C BC #### [facility] [address] [place] [address] Dr. Prince Olivas Hemoglobin (Bld) [Mass/Vol] 14.1 g/dL Normal 12.0-16.0 [facility] Comment on above: Performed By: #### C BC #### [facility] [address] [place] [address] Dr. Prince Olivas IG # 0.02 10e3/ul Normal 0.00-0.03 [facility] Comment on above: Performed By: #### C BC #### [facility] [address] [place] [address] Dr. Prince Olivas IG % 0.3 % Normal 0.0-0.5 [facility] Comment on above: Performed By: #### C BC #### [facility] [address] [place] [address] Dr. Prince Olivas LYMPH # 2.0 103/ul Normal 1.2-3.8 [facility] Comment on above: Performed By: #### C BC #### [facility] [address] [place] [address] Dr. Prince Olivas Lymphocytes/100 WBC (Bld) 27.6 % Normal 20.5-60.0 [facility] Comment on above: Performed By: #### C BC #### [facility] [address] [place] [address] Dr. Prince Olivas MANUAL DIFF REQ NO Normal [facility] Comment on above: Performed By: #### C BC #### [facility] [address] [place] [address] Dr. Prince Olivas MCH (RBC) [Entitic mass] 31.4 pg Normal 26.7-34.0 [facility] Comment on above: Performed By: #### C BC #### [facility] [address] [place] [address] Dr. Prince Olivas MCHC (RBC) [Mass/Vol] 32.9 g/dL Normal 29.9-35.2 [facility] Comment on above: Performed By: #### C BC #### [facility] [address] [address] [address] Prince Olivas MCV (RBC) [Entitic vol] 95.3 fL Normal 81.0-99.0 [facility] Comment on above: Performed By: #### C BC #### [facility] [address] [address] [address] Prince Olivas MONO # 0.6 103/ul Normal 0.3-0.8 [facility] Comment on above: Performed By: #### C BC #### [facility] [address] [address] [address] Prince Olivas Monocytes/100 WBC (Bld) 8.2 % Normal 1.7-12.0 [facility] Comment on above: Performed By: #### C BC #### [facility] [address] [place] [address] Dr. Prince Olivas NEUT # 4.2 103/ul Normal 1.4-6.5 [facility] Comment on above: Performed By: #### C BC #### [facility] [address] [place] [address] Dr. Prince Olivas Neutrophils/100 WBC (Bld) 59.6 % Normal 43.0-75.0 [facility] Comment on above: Performed By: #### C BC #### [facility] [address] [place] [address] Dr. Prince Olivas Platelet mean volume (Bld) [Entitic vol] 11.1 fL Normal 9.5-13.5 [facility] Comment on above: Performed By: #### C BC #### [facility] [address] [place] [address] Dr. Prince Olivas PLT 194 103/ul Normal 150-450 [facility] Comment on above: Performed By: #### C BC #### [facility] [address] [place] [address] Dr. Prince Olivas RBC 4.49 106/ul Normal 4.20-5.40 [facility] Comment on above: Performed By: #### C BC #### [facility] [address] [place] [address] Dr. Prince Olivas WBC 7.1 103/ul Normal 4.0-11.0 [facility] Comment on above: Performed By: #### C BC #### [facility] [address] [address] [address] Prince Olivas PROF 14(COMP METB)on 022 Albumin [Mass/Vol] 3.9 g/dL Normal 3.4-5.0 [facility] Comment on above: Performed By: #### Marine CAMPBELL2 #### [facility] [address] [place] [address] Dr. Pirnce Olivas Albumin/Globulin [Mass ratio] 1.4 {ratio} Normal [facility] Comment on above: Performed By: #### Marine CAMPBELL2 #### [facility] [address] [place] [address] Dr. Prince Olivas ALP [Catalytic activity/Vol] 71 U/L Normal 46-116 [facility] Comment on above: Performed By: #### Marine CAMPBELL2 #### [facility] [address] [place] [address] Dr. Prince Olivas ALT [Catalytic activity/Vol] 18 U/L Normal 14-59 [facility] Comment on above: Performed By: #### Marine CAMPBELL2 #### [facility] [address] [place] [address] Dr. Prince Olivas Anion gap [Moles/Vol] 10.1 mmol/L Normal [facility] Comment on above: Performed By: #### Marine CAMPBELL2 #### [facility] [address] [address] [address] Prince Olivas AST [Catalytic activity/Vol] 11 U/L Critically low 15-37 [facility] Comment on above: Performed By: #### Marine CAMPBELL2 #### [facility] [address] [place] [address] Dr. Prince Olivas Bilirubin [Mass/Vol] 0.4 mg/dL Normal 0.2-1.0 [facility] Comment on above: Performed By: #### Marine CAMPBELL2 #### [facility] [address] [place] [address] Dr. Prince Olivas Calcium [Mass/Vol] 8.8 mg/dL Normal 8.5-10.1 [facility] Comment on above: Performed By: #### M MA2 #### [facility] [address] [place] [address] Dr. Prince Olivas Chloride [Moles/Vol] 105 mmol/L Normal 98-107 [facility] Comment on above: Performed By: #### Marine MA2 #### [facility] [address] [place] [address] Dr. Prince Olivas CO2 [Moles/Vol] 27.0 mmol/L Normal 21.0-32.0 [facility] Comment on above: Performed By: #### Marine MA2 #### [facility] [address] [place] [address] Dr. Prince Olivas Creatinine [Mass/Vol] 0.67 mg/dL Normal 0.55-1.02 [facility] Comment on above: Performed By: #### Marine MA2 #### [facility] [address] [place] [address] Dr. Prince Olivas EGFR-AF MARSHALLESE >60 Normal >=60 [facility] Comment on above: Performed By: #### Marine MA2 #### [facility] [address] [place] [address] Dr. Prince Olivas EGFR-NON AF MARSHALLESE >60 Normal >=60 [facility] Comment on above: Performed By: #### Marine MA2 #### [facility] [address] [place] [address] Dr. Prince Olivas Globulin (S) [Mass/Vol] 2.7 g/dL Normal [facility] Comment on above: Performed By: #### M MA2 #### [facility] [address] [place] [address] Dr. Prince Olivas Glucose [Mass/Vol] 105 mg/dL Normal 74-106 [facility] Comment on above: Performed By: #### M MA2 #### [facility] [address] [place] [address] Dr. Prince Olivas Potassium [Moles/Vol] 4.1 mmol/L Normal 3.5-5.1 [facility] Comment on above: Performed By: #### M MA2 #### [facility] [address] [address] [address] Prince Olivas Protein [Mass/Vol] 6.6 g/dL Normal 6.4-8.2 [facility] Comment on above: Performed By: #### M MA2 #### [facility] [address] [address] [address] Prince Olivas Sodium [Moles/Vol] 138 mmol/L Normal 136-145 [facility] Comment on above: Performed By: #### M MA2 #### [facility] [address] [address] [address] Prince Olivas Urea nitrogen [Mass/Vol] 7.0 mg/dL Normal 7.0-18.0 [facility] Comment on above: Performed By: #### M MA2 #### [facility] [address] [address] [address] Prince Olivas Urea nitrogen/Creatinine [Mass ratio] 10.4 mg/mg Normal [facility] Comment on above: Performed By: #### M MA2 #### [facility] [address] [address] [address] Prince Olivas XR CHEST 1 Von [...] BARBI HENRY Date: 2021-10-04 10:58 Normal [facility] PROLACTINon 09-26-2021 Prolactin 149.0 ng/mL Critically high 4.8-23.3 [facility] Comment on above: Performed By: #### L IPID, CMP #### [facility] [address] [address] [address] Prince Olivas LIPID PROFILEon 09-25-2021 CHOL-HDL RATIO NORM SEE BELOW Normal [facility] Comment on above: Result Comment: 3.3 - 4.4 LOW RISK 4.4 - 7.1 AVERAGE RISK 7.1 - 11.0 MODERATE RISK >11.0 HIGH RISK Performed By: #### L IPID, CMP #### [facility] [address] [address] [address] Prince Olivas Cholesterol [Mass/Vol] 205 mg/dL Critically high <=200 [facility] Comment on above: Performed By: #### L IPID, CMP #### [facility] [address] [address] [address] Prince Olivas Cholesterol in HDL [Mass/Vol] 46 mg/dL Normal 40-60 [facility] Comment on above: Performed By: #### L IPID, CMP #### [facility] [address] [place] [address] Dr. Prince Olivas Cholesterol in LDL [Mass/Vol] 148.6 mg/dL Normal [facility] Comment on above: Performed By: #### L IPID, CMP #### [facility] [address] [place] [address] Dr. Prince Olivas Cholesterol.total/C holesterol in HDL [Mass ratio] 4.5 {ratio} Normal [facility] Comment on above: Performed By: #### L IPID, CMP #### [facility] [address] [place] [address] Dr. Prince Olivas HDL NORMAL > or = 60 mg/dl - LO W CARDIOVASCULAR RISK <40 mg/dl - HIGH CARDIOVASCULAR RISK Normal [facility] Comment on above: Performed By: #### L IPID, CMP #### [facility] [address] [place] [address] Dr. Prince Olivas LDL CALC NORMAL SEE BELOW Normal [facility] Comment on above: Result Comment: <100 mg/dl OPTIMAL 100 - 129 mg/dl NEAR OR ABOVE OPTIMAL 130 - 159 mg/dl BORDERLINE HIGH 160 - 189 mg/dl HIGH >190 mg/dl VERY HIGH Performed By: #### L IPID, CMP #### [facility] [address] [address] [address] Prince Olivas Triglyceride [Mass/Vol] 52 mg/dL Normal <=150 [facility] Comment on above: Performed By: #### L IPID, CMP #### [facility] [address] [address] [address] Prince Olivas VLDL CALC 10.4 mg/dL Normal [facility] Comment on above: Performed By: #### L IPID, CMP #### [facility] [address] [address] [address] Prince Olivas PROF 14(COMP METB)on 022 Albumin [Mass/Vol] 3.7 g/dL Normal 3.4-5.0 [facility] Comment on above: Performed By: #### L IPID, CMP #### [facility] [address] [place] [address] Dr. Prince Olivas Albumin/Globulin [Mass ratio] 1.5 {ratio} Normal [facility] Comment on above: Performed By: #### L IPID, CMP #### [facility] [address] [place] [address] Dr. Prince Olivas ALP [Catalytic activity/Vol] 66 U/L Normal 46-116 [facility] Comment on above: Performed By: #### L IPID, CMP #### [facility] [address] [place] [address] Dr. Prince Olivas ALT [Catalytic activity/Vol] 14 U/L Normal 14-59 [facility] Comment on above: Performed By: #### L IPID, CMP #### [facility] [address] [place] [address] Dr. Prince Olivas Anion gap [Moles/Vol] 13.8 mmol/L Normal [facility] Comment on above: Performed By: #### L IPID, CMP #### [facility] [address] [place] [address] Dr. Prince Olivas AST [Catalytic activity/Vol] 10 U/L Critically low 15-37 [facility] Comment on above: Performed By: #### L IPID, CMP #### [facility] [address] [place] [address] Dr. Prince Olivas Bilirubin [Mass/Vol] 0.3 mg/dL Normal 0.2-1.0 [facility] Comment on above: Performed By: #### L IPID, CMP #### [facility] [address] [place] [address] Dr. Prince Olivas Calcium [Mass/Vol] 8.9 mg/dL Normal 8.5-10.1 [facility] Comment on above: Performed By: #### L IPID, CMP #### [facility] [address] [place] [address] Dr. Prince Olivas Chloride [Moles/Vol] 106 mmol/L Normal 98-107 [facility] Comment on above: Performed By: #### L IPID, CMP #### [facility] [address] [place] [address] Dr. Prince Olivas CO2 [Moles/Vol] 24.0 mmol/L Normal 21.0-32.0 [facility] Comment on above: Performed By: #### L IPID, CMP #### [facility] [address] [place] [address] Dr. Prince Olivas Creatinine [Mass/Vol] 1.05 mg/dL Critically high 0.55-1.02 [facility] Comment on above: Performed By: #### L IPID, CMP #### [facility] [address] [place] [address] Dr. Prince Olivas EGFR-AF MARSHALLESE >60 Normal >=60 [facility] Comment on above: Performed By: #### L IPID, CMP #### [facility] [address] [place] [address] Dr. Prince Olivas EGFR-NON AF MARSHALLESE 55 mL/min/1.73m2 Critically low >=60 [facility] Comment on above: Performed By: #### L IPID, CMP #### [facility] [address] [place] [address] Dr. Prince Olivas Globulin (S) [Mass/Vol] 2.5 g/dL Normal [facility] Comment on above: Performed By: #### L IPID, CMP #### [facility] [address] [place] [address] Dr. Prince Olivas Glucose [Mass/Vol] 107 mg/dL Critically high 74-106 [facility] Comment on above: Performed By: #### L IPID, CMP #### [facility] [address] [address] [address] Prince Olivas Potassium [Moles/Vol] 3.8 mmol/L Normal 3.5-5.1 [facility] Comment on above: Performed By: #### L IPID, CMP #### [facility] [address] [address] [address] Prince Olivas Protein [Mass/Vol] 6.2 g/dL Critically low 6.4-8.2 [facility] Comment on above: Performed By: #### L IPID, CMP #### [facility] [address] [place] [address] Dr. Prince Olivas Sodium [Moles/Vol] 140 mmol/L Normal 136-145 [facility] Comment on above: Performed By: #### L IPID, CMP #### [facility] [address] [place] [address] Dr. Prince Olivas Urea nitrogen [Mass/Vol] 10.0 mg/dL Normal 7.0-18.0 [facility] [facility] Comment on above: Performed By: #### L IPID, CMP #### [facility] [address] [place] [address] Dr. Prince Olivas Urea nitrogen/Creatinine [Mass ratio] 9.5 mg/mg Normal [facility] Comment on above: Performed By: #### L IPID, CMP #### [facility] [address] [place] [address] Dr. Prince Olivas Vital Signs Date Time Vital Sign Value Performing Clinician Facility 03-23-2024 13:10-0500 Blood Pressure Location Sandoval Rae [facility] 03-23-2024 13:10-0500 Diastolic blood pressure 70 mm[Hg] Sandoval Rae [facility] 03-23-2024 13:10-0500 Heart rate 96 /min Mohamad Mouchli [facility] 03-23-2024 13:10-0500 Systolic blood pressure 102 mm[Hg] Mohamad Mouchli [facility] 02-25-2024 11:16-0500 Diastolic blood pressure 64 mm[Hg] Mohamad Mouchli [facility] 02-25-2024 11:16-0500 Heart rate 71 /min Mohamad Mouchli [facility] 02-25-2024 11:16-0500 Mean blood pressure 80 mm[Hg] Mohamad Mouchli [facility] 02-25-2024 11:16-0500 Respiratory rate 10 /min Mohamad Mouchli [facility] 02-25-2024 11:16-0500 SaO2% (BldA) [Mass fraction] 96 % Mohamad Mouchli [facility] 02-25-2024 11:16-0500 Systolic blood pressure 113 mm[Hg] Mohamad Mouchli [facility] 02-25-2024 11:05-0500 Diastolic blood pressure 75 mm[Hg] Mohamad Mouchli [facility] 02-25-2024 11:05-0500 Heart rate 73 /min Mohamad Mouchli [facility] 02-25-2024 11:05-0500 Mean blood pressure 86 mm[Hg] Mohamad Mouchli [facility] 02-25-2024 11:05-0500 Respiratory rate 18 /min Mohamad Mouchli [facility] 02-25-2024 11:05-0500 SaO2% (BldA) [Mass fraction] 95 % Mohamad Mouchli [facility] 02-25-2024 11:05-0500 Systolic blood pressure 107 mm[Hg] Mohamad Mouchli [facility] 02-25-2024 10:51-0500 Body temperature 98.24 [degF] Mohamad Mouchli [facility] 02-25-2024 10:51-0500 Diastolic blood pressure 92 mm[Hg] Mohamad Mouchli [facility] 02-25-2024 10:51-0500 Heart rate 81 /min Mohamad Mouchli [facility] 02-25-2024 10:51-0500 Mean blood pressure 96 mm[Hg] Mohamad Mouchli [facility] 02-25-2024 10:51-0500 Respiratory rate 18 /min Mohamad Mouchli [facility] 02-25-2024 10:51-0500 SaO2% (BldA) [Mass fraction] 97 % Mohamad Mouchli [facility] 02-25-2024 10:51-0500 Systolic blood pressure 103 mm[Hg] Mohamad Mouchli [facility] 02-25-2024 10:45-0500 Respiratory rate 15 /min Mohamad Mouchli [facility] 02-25-2024 10:40-0500 Respiratory rate 16 /min Mohamad Mouchli [facility] 02-25-2024 10:35-0500 Respiratory rate 17 /min Mohamad Mouchli [facility] 02-25-2024 09:14-0500 Blood Pressure Location Mohamad Mouchli [facility] 02-25-2024 09:14-0500 Body temperature 97.88 [degF] Mohamad Mouchli [facility] 02-21-2024 08:41-0500 Blood Pressure Location Mohamad Mouchli [facility] 02-21-2024 08:41-0500 Diastolic blood pressure 83 mm[Hg] Mohamad Mouchli [facility] 02-21-2024 08:41-0500 Heart rate 80 /min Mohamad Mouchli [facility] 02-21-2024 08:41-0500 Systolic blood pressure 134 mm[Hg] Mohamad Mouchli [facility] 01-16-2024 10:08-0400 Blood Pressure Location Mohamad Mouchli [facility] 01-16-2024 10:08-0400 Diastolic blood pressure 76 mm[Hg] Mohamad Mouchli [facility] 01-16-2024 10:08-0400 Heart rate 73 /min Mohamad Mouchli [facility] 01-16-2024 10:08-0400 Systolic blood pressure 116 mm[Hg] Mohamad Mouchli [facility] 09-24-2023 15:00-0400 Diastolic blood pressure 78 mm[Hg] José Luis Resendiz [facility] 09-24-2023 15:00-0400 Heart rate 66 /min José Luis Resendiz [facility] 09-24-2023 15:00-0400 Mean blood pressure 95 mm[Hg] José Luis Astrid [facility] 09-24-2023 15:00-0400 Respiratory rate 16 /min José Luis Astrid [facility] 09-24-2023 15:00-0400 Systolic blood pressure 128 mm[Hg] José Luis Astrid [facility] 09-24-2023 14:00-0400 Diastolic blood pressure 69 mm[Hg] José Luis Astrid [facility] 09-24-2023 14:00-0400 Heart rate 75 /min José Luis Astrid [facility] 09-24-2023 14:00-0400 Mean blood pressure 88 mm[Hg] José Luis Astrid [facility] 09-24-2023 14:00-0400 SaO2% (BldA) [Mass fraction] 95 % José Luis Astrid [facility] 09-24-2023 14:00-0400 Systolic blood pressure 126 mm[Hg] José Luis Astrid [facility] 09-24-2023 12:58-0400 Body temperature 98.06 [degF] José Luis Astrid [facility] 09-24-2023 12:58-0400 Diastolic blood pressure 82 mm[Hg] José Luis Astrid [facility] 09-24-2023 12:58-0400 Heart rate 89 /min José Luis Astrid [facility] 09-24-2023 12:58-0400 Respiratory rate 18 /min José Luis Astrid [facility] 09-24-2023 12:58-0400 SaO2% (BldA) [Mass fraction] 96 % José Luis Resendiz [facility] 09-24-2023 12:58-0400 Systolic blood pressure 125 mm[Hg] José Luis Resendiz [facility] 04-04-2022 15:50-0500 Diastolic blood pressure 70 mm[Hg] Tiffani Morales MD Work Phone: [facility] 04-04-2022 15:50-0500 Heart rate 73 /min Tiffani Morales MD Work Phone: [facility] 04-04-2022 15:50-0500 Respiratory rate 16 /min Tiffani Morales MD Work Phone: [facility] 04-04-2022 15:50-0500 SaO2% (BldA) [Mass fraction] 97 % Tiffani Morales MD Work Phone: [facility] 04-04-2022 15:50-0500 Systolic blood pressure 117 mm[Hg] Tiffani Morales MD Work Phone: [facility] 04-04-2022 15:26-0500 Body temperature 97.2 [degF] Tiffani Morales MD Work Phone: [facility] 04-04-2022 12:51-0500 Body height 172.7 cm Tiffani Morales MD Work Phone: [facility] 04-04-2022 12:51-0500 Body weight 45.81 kg Tiffani Morales MD Work Phone: [facility] 01-01-2022 16:50-0400 Diastolic blood pressure 69 mm[Hg] Tiffani Morales MD Work Phone: [facility] 01-01-2022 16:50-0400 Heart rate 69 /min Tiffani Morales MD Work Phone: [facility] 01-01-2022 16:50-0400 Respiratory rate 16 /min Tiffani Morales MD Work Phone: [facility] 01-01-2022 16:50-0400 SaO2% (BldA) [Mass fraction] 95 % Tiffani Morales MD Work Phone: [facility] 01-01-2022 16:50-0400 Systolic blood pressure 110 mm[Hg] Tiffani Morales MD Work Phone: [facility] 01-01-2022 16:33-0400 Body temperature 98.1 [degF] Tiffani Morales MD Work Phone: [facility] 01-01-2022 15:39-0400 Body height 172.7 cm Tiffani Morales MD Work Phone: [facility] 01-01-2022 15:39-0400 Body weight 45.81 kg Tiffani Morales MD Work Phone: [facility] 06-20-2021 13:37-0400 Body height 174 cm Robb Evans MD Work Phone: [facility] 06-20-2021 13:37-0400 Body mass index (BMI) [Ratio] 17.98 kg/m2 Robb Evans MD Work Phone: [facility] 06-20-2021 13:37-0400 Body weight 54.43 kg Robb Evans MD Work Phone: [facility] 06-20-2021 13:37-0400 Diastolic blood pressure 69 mm[Hg] Robb Evans MD Work Phone: [facility] 06-20-2021 13:37-0400 Heart rate 77 /min Robb Evans MD Work Phone: [facility] 06-20-2021 13:37-0400 Respiratory rate 16 /min Robb Evans MD Work Phone: [facility] 06-20-2021 13:37-0400 SaO2% (BldA) [Mass fraction] 95 % Robb Evans MD Work Phone: [facility] 06-20-2021 13:37-0400 Systolic blood pressure 102 mm[Hg] Robb Evans MD Work Phone: [facility] 07-18-2020 14:10-0400 Body height 174 cm Robb Evans MD Work Phone: [facility] 07-18-2020 14:10-0400 Body mass index (BMI) [Ratio] 17.38 kg/m2 Robb Evans MD Work Phone: [facility] 07-18-2020 14:10-0400 Body weight 52.62 kg Robb Evans MD Work Phone: [facility] 07-18-2020 14:10-0400 Diastolic blood pressure 68 mm[Hg] Robb Evans MD Work Phone: [facility] 07-18-2020 14:10-0400 Heart rate 84 /min Robb Evans MD Work Phone: [facility] 07-18-2020 14:10-0400 Respiratory rate 16 /min Robb Evans MD Work Phone: [facility] 07-18-2020 14:10-0400 SaO2% (BldA) [Mass fraction] 96 % Robb Evans MD Work Phone: [facility] 07-18-2020 14:10-0400 Systolic blood pressure 94 mm[Hg] Robb Evans MD Work Phone: [facility] Encounters Encounter Date Encounter Type Care Provider Facility Start: 05-12-2024 End: 05-12-2024 ambulatory Lala L Carolee [facility]ilrey farfan Start: 05-11-2024 ambulatory Lala L Carolee Facility: CD:[id number] Start: 03-23-2024 End: 03-23-2024 ambulatory Sandoval Rae Facility:[facility] Start: 03-23-2024 End: 03-23-2024 Patient encounter procedure Sandoval Rae [facility] Start: 03-15-2024 End: 03-15-2024 ambulatory Eligiouliecs Wayneeck Facility:[facility] Start: 02-25-2024 End: 02-25-2024 ambulatory Sandoval Rae Facility:[facility] Start: 02-25-2024 End: 02-25-2024 Patient encounter procedure Sandoval Rae [facility] Start: 02-21-2024 End: 02-21-2024 [facility] Start: 02-21-2024 End: 02-21-2024 Patient encounter procedure Sandoval Rae [facility] Start: 02-18-2024 End: 02-18-2024 ambulatory [facility]ala L [facility]olee [facility] Start: 02-05-2024 End: 02-05-2024 ambulatory Sandoval Rae Facility:[facility] Start: 02-05-2024 End: 02-05-2024 Patient encounter procedure Sandoval Rae [facility] Start: 01-27-2024 End: 01-27-2024 ambulatory Sandoval Rae Facility:[facility] Start: 01-27-2024 End: 01-27-2024 Patient encounter procedure Sandoval Rae [facility] Start: 01-16-2024 End: 01-16-2024 ambulatory Mohemekad A. Butch Facility:[facility] Start: 01-16-2024 End: 01-16-2024 Patient encounter procedure Mohamad A. Modestinee [facility] Start: 11-26-2023 End: 11-26-2023 ambulatory Lala L Carolee Facility:[facility] Start: 10-03-2023 End: 10-03-2023 ambulatory Lala L Carolee Facility:[facility] Start: 09-27-2023 ambulatory CHANCE ZACH Facility:[facility] Start: 09-24-2023 End: 09-24-2023 Emergency department patient visit José Luis Resendiz [facility] Start: 05-08-2022 Telephone encounter Tiffani valencia MD Work Phone: Gastroenterology Comment on above: Patient Question Start: 05-07-2022 End: 05-08-2022 ambulatory IRINA SEGURA Facility:[facility] Start: 04-24-2022 End: 04-24-2022 ambulatory CRISTINA ALEE PRECIADOBoyd Facility:[facility] Start: 04-24-2022 End: 04-24-2022 Nutrition therapy Tiffani Morales MD Work Phone: Gastroenterology Comment on above: Severe malnutrition (HCC) (Primary Dx) Start: 04-24-2022 End: 04-24-2022 Telemedicine consultation with patient Tiffani Morales MD Work Phone: [facility] Start: 04-20-2022 Refill Robb Evans MD Work Phone: [facility] Start: 04-12-2022 Refill Saúl SHORT [facility] Comment on above: Generalized anxiety disorder Start: 04-05-2022 Telephone encounter Tiffani valencia MD Work Phone: Gastroenterology Comment on above: Refill Request Start: 04-04-2022 End: 04-04-2022 ambulatory FREDERICK G ANASTACIO Facility:[facility] Start: 04-04-2022 End: 04-04-2022 Subsequent hospital visit by physician Tiffani Morales MD Work Phone: Gastroenterology Comment on above: 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] Start: 03-31-2022 End: 04-01-[address] DOCTOR BERMEO Facility:[facility] Start: 03-28-2022 End: 03-29-[address] BRITNI SIMPSON Facility:[facility] Start: 03-28-2022 Telephone encounter Eduardo Harrington RNfoster care worker Comment on above: Appointment Confirmsrini tironald Start: 03-20-2022 Refill Saúl Kaur DEJA [facility] Start: 03-14-2022 Refill Anastasiya Davidi PA-C Work Phone: Gastroenterology Comment on above: Refill Request Start: 03-09-2022 Refill Gokul Maurilio CAMPBELL [facility] Comment on above: Generalized anxiety disorder Start: 03-01-2022 End: 03-01-2022 [facility] Start: 03-01-2022 End: 03-01-2022 Nutrition therapy Tiffani Morales MD Work Phone: Gastroenterology Comment on above: Severe protein-calor ie malnutrition (HCC) (Primary Dx); 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); Weight loss; Severe malnutrition (HCC) Start: 03-01-2022 End: 03-01-2022 Telemedicine consultation with patient Tiffani Morales MD Work Phone: [facility] Start: 02-07-2022 ambulatory Yan wood MD Work Phone: Gastroenterology Start: 02-07-2022 Patient encounter procedure Yan Garcia Jr., MD Work Phone: [facility] Start: 02-07-2022 Refill Anastasiya Nolani PA-C Work Phone: Gastroenterology Comment on above: Refill Request Start: 02-06-2022 End: 02-07-2022 [facility] Start: 02-05-2022 End: 02-05-2022 ambulatory [facility]rini [facility] Start: 01-29-2022 ambulatory Dolores Lopez RN Gast[facility]enterology Start: 01-29-2022 Patient encounter procedure Dolores Lopez RN [facility] Start: 01-29-2022 End: 01-29-2022 Subsequent hospital visit by physician Capsule Work Phone: Gastroenterology Comment on above: Arrived Start: 01-17-2022 ambulatory Roshni Milligan Alphonso Reyes ty:[facility] Start: 01-16-2022 Refill Gokul Maurilio [facility] Start: 01-05-2022 Telephone [...] 01-01-2022 End: 01-01-2022 ambulatory KIRSTEN Milligan SJSrini Facility:[facility] Start: 01-01-2022 End: 01-01-2022 Subsequent hospital visit by physician Tiffani Morales MD Work Phone: Gastroenterology Comment on above: Nausea and vomiting, unspecified vomiting type [R11.2] Start: 12-25-2021 Telephone encounter Rima Gerard RNfoster care worker Comment on above: Appointment Start: 12-19-2021 End: 12-19-2021 ambulatory CRISTINA [facility]OPH[facility] Start: 12-15-2021 End: 12-16-2021 ambulatory Anastasiya Mosqueda PA-C Work Phone: Gastroenterology Comment on above: Nausea and vomiting, unspecified vomiting type (Primary Dx); Left upper quadrant abdominal pain; Weight loss Start: 12-15-2021 End: 12-15-2021 Telemedicine consultation with patient Anastasiya Jaylin PA-C Work Phone: [facility] Start: 12-14-2021 End: 12-14-2021 ambulatory ANASTASIYA MOSQUEDA Facility:[facility] Start: 12-14-2021 End: 12-14-2021 Patient encounter procedure Anastasiya Mosqueda PA-C Work Phone: Gastroenterology Comment on above: APPOINTMENT CANCELLE D (Primary Dx) Start: 12-14-2021 End: 12-14-2021 Telemedicine consultation with patient Anastasiya Mosqueda PA-C Work Phone: [facility] Start: 12-13-2021 Telephone encounter Anastasiya kimbrough PA-C Work Phone: Gastroenterology Comment on above: Appointment Start: 12-11-2021 End: 12-11-2021 ambulatory [employer] CRISTINA HOODMARYAM[facility]oyd Facility:[facility] Start: 12-03-2021 End: 12-03-2021 Emergency department patient visit Vipin Pina Facility:[facility] Start: 11-14-2021 End: 11-14-2021 ambulatory [employer] CRISTINA ERWINMARYAMBoyd Facility:[facility] Start: 11-09-2021 End: 11-09-2021 ambulatory [employer] CRISTINA ERWINHOLZ Facility:[facility] Start: 10-04-2021 End: 10-04-2021 ambulatory [employer] CRISTINA ERWINHOLZ Facility:[facility] Start: 10-03-2021 Refill Robb Evans MD Work Phone: [facility] Start: 09-27-2021 Documentation procedure Zuleyma Evans MD Work Phone: [facility] Start: 09-25-2021 End: 09-26-2021 ambulatory ROBB EVANS Facility:[facility] Start: 09-19-2021 End: 09-19-2021 [facility] Start: 09-19-2021 End: 09-19-2021 Office outpatient visit 25 minutes Robb Evans MD Work Phone: [facility] Comment on above: Bipolar 1 disorder, mixed, mild (HCC) (Primary Dx); Generalized anxiety disorder; Long-term use of high-risk medication Start: 09-15-2021 Refill Fartun Mack LPN [facility] Comment on above: Generalized anxiety disorder Start: 06-20-2021 End: 06-20-[address] [facility] Start: 06-20-2021 End: 06-20-2021 Office outpatient visit 25 minutes Rbob Evans MD Work Phone: [facility] Comment on above: Generalized anxiety disorder (Primary Dx); Bipolar 1 disorder, mixed, mild (HCC); Long-term use of high-risk medication; Post traumatic stress disorder (PTSD) Start: 04-03-2021 Refill Gokul Maurilio CAMPBELL [facility] Comment on above: Generalized anxiety disorder Start: 03-01-2021 End: 03-01-2021 Phys/qhp telephone evaluation 11-20 min Robb Evans MD Work Phone: [facility] Comment on above: Bipolar 1 disorder, mixed, mild (HCC) (Primary Dx); Generalized anxiety disorder; Long-term use of high-risk medication Start: 03-01-2021 End: 03-01-2021 [facility] Start: 01-31-2021 Refill Gokul Maurilio [facility] Comment on above: Generalized anxiety disorder Start: 12-29-2020 Refill Gokul Maurilio [facility] Comment on above: Generalized anxiety disorder Start: 08-22-2020 End: 08-22-2020 Phys/qhp telephone evaluation 11-20 min Robb Evans MD Work Phone: [facility] Comment on above: 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); Generalized anxiety disorder; Long-term use of high-risk medication Start: 07-18-2020 End: 07-18-2020 Office outpatient visit 25 minutes Robb Evans MD Work Phone: [facility] Comment on above: Generalized [...] Screening for malign ant neoplasm of colon [facility] Start: 04-27-2022 End: 04-27-2022 Patient encounter procedure 04/27/2022 Office Visit Psychiatry Robb Evans MD [address] [place] [address] [facility] Start: 03-26-2022 End: 03-26-2022 Patient encounter procedure 03/26/2022 Office Visit Psychiatry Robb Evans MD [address] [place] [address] [facility] Start: 03-18-2022 DEPRESSION ASSESSMENT DEPRESSION ASS [facility] Start: 03-02-2022 End: 03-01-2023 25-hydroxyvitamin D3 [Mass/volume] in Serum or Plasma VITAMIN D 25 HYDROXY Lab Routine Severe protein-calorie malnutrition (HCC) Expected: 03/02/2022 (Approximate), Expires: 03/01/2023 [facility] Work Phone: Comment on above: Expected: 03/02/2022 (Approximate), Expires: 03/01/2023 Start: 03-02-2022 End: 03-01-2023 Alpha tocopherol [Mass/volume] in Serum or Plasma VITAMIN E/TOCOPHEROL Lab Routine Severe protein-calorie malnutrition (HCC) Expected: 03/02/2022 (Approximate), Expires: 03/01/2023 [facility] Work Phone: Comment on above: Expected: 03/02/2022 (Approximate), Expires: 03/01/2023 Start: 03-02-2022 End: 03-01-2023 C reactive protein [Mass/volume] in Serum or Plasma C-REACTIVE PROTEIN (CRP) Lab Routine Severe protein-calorie malnutrition (HCC) Expected: 03/02/2022 (Approximate), Expires: 03/01/2023 [facility] Work Phone: Comment on above: Expected: 03/02/2022 (Approximate), Expires: 03/01/2023 Start: 03-02-2022 End: 03-01-2023 CBC W Auto Differential panel - Blood CBC + DIFF Lab Routine Severe protein-calorie malnutrition (HCC) Expected: 03/02/2022 (Approximate), Expires: 03/01/2023 [facility] Work Phone: Comment on above: Expected: 03/02/2022 (Approximate), Expires: 03/01/2023 Start: 03-02-2022 End: 03-01-2023 Cobalamin (Vitamin B12) [Mass/volume] in Serum or Plasma VITAMIN B12 BLOOD Lab Routine Severe protein-calorie malnutrition (HCC) Expected: 03/02/2022 (Approximate), Expires: 03/01/2023 [facility] Work Phone: Comment on above: Expected: 03/02/2022 (Approximate), Expires: 03/01/2023 Start: 03-02-2022 End: 03-01-2023 Comprehensive metabolic 2000 panel - Serum or Plasma COMP METABOLIC PANEL Lab Routine Severe protein-calorie malnutrition (HCC) Expected: 03/02/2022 (Approximate), Expires: 03/01/2023 [facility] Work Phone: Comment on above: Expected: 03/02/2022 (Approximate), Expires: 03/01/2023 Start: 03-02-2022 End: 03-01-2023 COPPER BLOOD COPPER BLOOD Lab Routine Severe protein-calorie malnutrition (HCC) Expected: 03/02/2022 (Approximate), Expires: 03/01/2023 [facility] Work Phone: Comment on above: Expected: 03/02/2022 (Approximate), Expires: 03/01/2023 Start: 03-02-2022 End: 03-01-2023 FATTY ACIDS PROFILE, ESSENTIAL FATTY ACIDS PROFILE, ESSENTIAL Lab Routine Severe protein-calorie malnutrition (HCC) Expected: 03/02/2022 (Approximate), Expires: 03/01/2023 [facility] Work Phone: Comment on above: Expected: 03/02/2022 (Approximate), Expires: 03/01/2023 Start: 03-02-2022 End: 03-01-2023 Ferritin [Mass/volume] in Serum or Plasma FERRITIN BLD Lab Routine Severe protein-calorie malnutrition (HCC) Expected: 03/02/2022 (Approximate), Expires: 03/01/2023 [facility] Work Phone: Comment on above: Expected: 03/02/2022 (Approximate), Expires: 03/01/2023 Start: 03-02-2022 End: 03-01-2023 Iron and Iron binding capacity panel - Serum or Plasma IRON + TIBC Lab Routine Severe protein-calorie malnutrition (HCC) Expected: 03/02/2022 (Approximate), Expires: 03/01/2023 [facility] Work Phone: Comment on above: Expected: 03/02/2022 (Approximate), Expires: 03/01/2023 Start: 03-02-2022 End: 03-01-2023 Magnesium [Mass/volume] in Serum or Plasma MAGNESIUM BLD Lab Routine Severe protein-calorie malnutrition (HCC) Expected: 03/02/2022 (Approximate), Expires: 03/01/2023 [facility] Work Phone: Comment on above: Expected: 03/02/2022 (Approximate), Expires: 03/01/2023 Start: 03-02-2022 End: 03-01-2023 Methylmalonate [Moles/volume] in Serum or Plasma METHYLMALONIC ACID Lab Routine Severe protein-calorie malnutrition (HCC) Expected: 03/02/2022 (Approximate), Expires: 03/01/2023 [facility] Work Phone: Comment on above: Expected: 03/02/2022 (Approximate), Expires: 03/01/2023 Start: 03-02-2022 End: 03-01-2023 Phosphate [Mass/volume] in Serum or Plasma PHOSPHORUS INORGANIC Lab Routine Severe protein-calorie malnutrition (HCC) Expected: 03/02/2022 (Approximate), Expires: 03/01/2023 [facility] Work Phone: Comment on above: Expected: 03/02/2022 (Approximate), Expires: 03/01/2023 Start: 03-02-2022 End: 03-01-2023 PT panel - Platelet poor plasma by Coagulation assay PROTHROMBIN TIME/PT Lab Routine Severe protein-calorie malnutrition (HCC) Expected: 03/02/2022 (Approximate), Expires: 03/01/2023 [facility] Work Phone: Comment on above: Expected: 03/02/2022 (Approximate), Expires: 03/01/2023 Start: 03-02-2022 End: 03-01-2023 RBC FOLATE RBC FOLATE Lab Routine Severe protein-calorie malnutrition (HCC) Expected: 03/02/2022 (Approximate), Expires: 03/01/2023 [facility] Work Phone: Comment on above: Expected: 03/02/2022 (Approximate), Expires: 03/01/2023 Start: 03-02-2022 End: 03-01-2023 Retinol [Mass/volume] in Serum or Plasma VITAMIN A/RETINOL Lab Routine Severe protein-calorie malnutrition (HCC) Expected: 03/02/2022 (Approximate), Expires: 03/01/2023 [facility] Work Phone: Comment on above: Expected: 03/02/2022 (Approximate), Expires: 03/01/2023 Start: 03-02-2022 End: 03-01-2023 Selenium [Mass/volume] in Blood SELENIUM BLOOD Lab Routine Severe protein-calorie malnutrition (HCC) Expected: 03/02/2022 (Approximate), Expires: 03/01/2023 [facility] Work Phone: Comment on above: Expected: 03/02/2022 (Approximate), Expires: 03/01/2023 Start: 03-02-2022 End: 03-01-2023 Triglyceride [Mass/volume] in Serum or Plasma TRIGLYCERIDES BLD Lab Routine Severe protein-calorie malnutrition (HCC) Expected: 03/02/2022 (Approximate), Expires: 03/01/2023 [facility] Work Phone: Comment on above: Expected: 03/02/2022 (Approximate), Expires: 03/01/2023 Start: 03-02-2022 End: 03-01-2023 Zinc [Mass/volume] in Serum or Plasma ZINC BLD Lab Routine Severe protein-calorie malnutrition (HCC) Expected: 03/02/2022 (Approximate), Expires: 03/01/2023 [facility] Work Phone: Comment on above: Expected: 03/02/2022 (Approximate), Expires: 03/01/2023 Start: 12-19-2021 End: 12-19-2021 Patient encounter procedure 12/19/2021 Office Visit Robb Patton MD [address] [facility] [address] [place] [id number] [facility] Start: 11-16-2021 Influenza vaccination [facility] Start: 09-19-2021 End: 09-19-2021 Patient encounter procedure 09/19/2021 Office Visit Robb Patton MD [address] [facility] [address] [place] [id number] [facility] Start: 09-15-2021 End: 09-15-2021 Patient encounter procedure 09/15/2021 Office Visit Robb Patton MD [address] [facility] [address] [place] [phone] [facility] Start: 05-30-2021 End: 05-30-2021 Patient encounter procedure 05/30/2021 Office Visit Robb Patton MD [address] [facility] [address] [place] [id number] [facility] Start: 03-18-2021 DEPRESSION ASSESSMENT DEPRESSION ASS ESSMENT [facility] Start: 02-17-2021 End: 02-17-2021 Patient encounter procedure 02/17/2021 Office Visit Robb Patton MD [address] [facility] [address] [place] [phone] [facility] Start: 02-03-2021 End: 02-03-2021 Patient encounter procedure 02/03/2021 Office Visit Robb Patton MD [address] [place] [address] [facility] Start: 11-16-2020 Influenza vaccination [facility] Start: 10-28-2020 End: 10-28-2020 Patient encounter procedure 10/28/2020 Office Visit Psychiatry Robb Evans MD [address] [place] [id number] [phone] [facility] Start: 2020 Administration of he rpes zoster vaccine Zoster Vaccines (1 of 2) [facility] Start: 2020 Screening for malign ant neoplasm of colon [facility] Start: 2020 SHINGRIX VACCINE (1 of 2) SHINGRIX VACCINE (1 of 2) [facility] Start: 08-22-2020 End: 08-22-2020 Telemedicine consultation with patient 08/22/2020 Telemedicine Psychiatry Robb Evans MD [address] [place] [id number] [phone] [facility] Start: 10-07-2015 COLOGUARD (FIT-DNA) COLOGUARD (FIT-D NA) [facility] Start: 10-07-2015 Colonoscopy COLONOSCOPY [facility] Start: 10-07-2015 COLORECTAL CANCER SCREENING COLORECTAL CANCER SCREENING [facility] Start: 10-07-[address] COLONOGRAPHY [facility] Start: 10-07-2015 DIABETES SCREEN DIABETES SCREEN [facility] Start: 10-07-2015 FECAL OCCULT BLOOD FECAL OCCULT BLOO D [facility] Start: 10-07-2015 LIPID SCREEN LIPID SCREEN [facility] Start: 10-07-2015 SIGMOIDOSCOPY SIGMOIDOSCOPY [facility] Start: 01-02-2015 PAP TESTING PAP TESTING [facility] Start: 2010 Mammography MAMMOGRAM [facility] Start: 2010 Screening for malign ant neoplasm of breast Mammogram [facility] Start: 2010 Screening mammography Mammogram [facility] Start: 2000 HPV TESTING HPV TESTING [facility] Start: 1989 Urine microalbumin profile DTAP,TDAP,TD (1 - Tdap) [facility] Start: 1988 Hepatitis C screening Hepatitis C Sc reening [facility] Start: 1988 HIV SCREENING HIV SCREENING [facility] Start: 1986 COVID-19 Vaccine (1) COVID-19 Vaccin e (1) [facility] Start: 1985 HIV screening HIV Screening [facility] Start: 1982 COVID-19 Vaccine (1) COVID-19 Vaccin e (1) [facility] Start: 1976 PNEUMOCOCCAL (1 - PCV) PNEUMOCOCCAL (1 - PCV) [facility] Start: 1976 Pneumococcal Vaccine : Ped or At-Risk (1 - PCV) Pneumococcal Vaccine: Ped or At-Risk (1 - PCV) [facility] Start: 1976 Pneumococcal Vaccine : Ped or At-Risk (1 of 2 - PPSV23) Pneumococcal Vaccine: Ped or At-Risk (1 of 2 - PPSV23) [facility] Start: 1976 Pneumococcal Vaccine : Ped or At-Risk (1 of 4 - PCV13) Pneumococcal Vaccine: Ped or At-Risk (1 of 4 - PCV13) [facility] Start: 10-07-1975 COVID-19 Vaccine (1) COVID-19 Vaccin e (1) [facility] Start: 1973 History and physical examination, annual for health maintenance Wellness Visit [facility] Start: 04-08-1971 COVID-19 Vaccine (#1) COVID-19 Vacci ne (#1) [facility] Start: 1970 HEPATITIS B (1 of 3 - 3-dose series) HEPATITIS B (1 of 3 - 3-dose series) [facility] Start: 1970 Screening for malign ant neoplasm of cervix Pap Smear [facility] Start: 1970 Screening for malign ant neoplasm of colon [facility] Start: 1970 Screening mammography Mammogram [facility] Start: 1970 Tetanus vaccination Tetanus: Every 1 0yrs [facility] End: 09-19-2022 Comprehensive metabolic 2000 panel - Serum or Plasma Comprehensive Metabolic Panel Lab Routine Generalized anxiety disorder Long-term use of high-risk medication Bipolar 1 disorder, mixed, mild (HCC) 1 Occurrences starting 09/19/2021 until 09/19/2022 [facility] Comment on above: 1 Occurrences starti ng 09/19/2021 until 09/19/2022 End: 04-01-2023 Ct abdomen & pelvis w/contrast material CT ENTEROGRAPHY W IVCON Radiology Routine 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) Weight loss 1 Occurrences starting 03/02/2022 until 04/01/2023 [facility] Work Phone: Comment on above: 1 Occurrences starti ng 03/02/2022 until 04/01/2023 End: 12-15-2022 EGD DIAGNOSTIC EGD DIAGNOSTIC Endoscopy Routine Nausea and vomiting, unspecified vomiting type Left upper quadrant abdominal pain 1 Occurrences starting 12/15/2021 until 12/15/2022 [facility] Work Phone: Comment on above: 1 Occurrences starti ng 12/15/2021 until 12/15/2022 End: 03-02-2023 ENTEROSCOPY ENTEROSCOPY Endoscopy Routine 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) 1 Occurrences starting 03/02/2022 until 03/02/2023 [facility] Work Phone: Comment on above: 1 Occurrences starti ng 03/02/2022 until 03/02/2023 FAT, FECAL QUAL FAT, FECAL QUAL Lab Routine Weight loss Ordered: 01/05/2022 [facility] Work Phone: Comment on above: Ordered: 01/05/2022 End: 02-04-2023 Gastric emptying imaging study NM GASTRIC EMPTYING SOLID Radiology Routine Nausea 1 Occurrences starting 01/05/2022 until 02/04/2023 [facility] Work Phone: Comment on above: 1 Occurrences starti ng 01/05/2022 until 02/04/2023 End: 01-05-2023 Gi imag intraluminal esophagus-ileum w/i&r CAPSULE ENDOSCOPY SMALL BOWEL Endoscopy Routine Small bowel polyp 1 Occurrences starting 01/05/2022 until 01/05/2023 [facility] Work Phone: Comment on above: 1 Occurrences starti ng 01/05/2022 until 01/05/2023 End: 09-19-2022 Lipid 1996 panel - Serum or Plasma Lipid Panel Lab Routine Generalized anxiety disorder Long-term use of high-risk medication Bipolar 1 disorder, mixed, mild (HCC) 1 Occurrences starting 09/19/2021 until 09/19/2022 [facility] Comment on above: 1 Occurrences starti ng 09/19/2021 until 09/19/2022 PANC ELASTASE, FECAL PANC ELASTA SE, FECAL Lab Routine Weight loss Ordered: 01/05/2022 [facility] Work Phone: Comment on above: Ordered: 01/05/2022 End: 09-19-2022 Prolactin [Mass/volume] in Serum or Plasma Prolactin Lab Routine Generalized anxiety disorder Long-term use of high-risk medication Bipolar 1 disorder, mixed, mild (HCC) 1 Occurrences starting 09/19/2021 until 09/19/2022 [facility] Work Phone: Comment on above: 1 Occurrences starti ng 09/19/2021 until 09/19/2022 End: 04-01-2023 Radiologic exam chest 2 views XR CHEST 2V FRONTAL/LAT Radiology Routine Weight loss 1 Occurrences starting 03/02/2022 until 04/01/2023 [facility] Work Phone: Comment on above: 1 Occurrences starti ng 03/02/2022 until 04/01/2023 SURGICAL PATHOLOGY [facility] Work Phone: Comment on above: Release Upon Orderin g for 1 Occurrences starting 01/01/2022, 1 completed SURGICAL PATHOLOGY [facility] Work Phone: Comment on above: Release Upon Orderin g for 1 Occurrences starting 04/04/2022, 1 completed [facility] Immunizations Immunization Date Immunization Notes Care Provider Dany ordoñez 10-10-2022 tetanus toxoid, reduced diphtheria toxoid, and acellular pertussis vaccine, adsorbed Sandoval Rae [facility] Rashaun NEGATED: Highlighted row has not occurred!01-16-2024 influenza virus vaccine, unspecified formulation Sandoval Rae [facility] NEGATED: Highlighted row has not occurred!05-24-2020 influenza virus vaccine, unspecified formulation José Luis Resendiz [facility] Payers Date Payer Category Payer Self-pay 2017 Medicaid [id number] 2017 Medicaid [id number] 1970 Unknown [id number] 2.16.8 40.1.798893.3.579.2.727 1970 Unknown [id number] 2.16.8 40.1.186724.3.579.2.727 1970 Unknown [id number] 2.16. 840.1.602896.3.579.2.903 1970 Unknown [id number] 2.16. 840.1.635409.3.579.2.903 1970 Unknown [id number] 2.16. 840.1.480820.3.579.2.903 1970 Unknown [id number] 2.16. 840.1.546651.3.579.2.903 1970 Unknown [id number] 2.16.84 0.1.520771.3.579.2.593 1970 Unknown [id number] 2.16.84 0.1.148296.3.579.2.593 1970 Unknown [id number] 2.16.84 0.1.388396.3.579.2.593 1970 Unknown [id number] 2.16.84 0.1.237916.3.579.2.593 1970 Unknown [id number] 2.16.84 0.1.729564.3.579.2.593 1970 Unknown [id number] 2.16.84 0.1.519858.3.579.2.593 1970 Unknown [id number] 2.16.84 0.1.559107.3.579.2.593 1970 Unknown [id number] 2.16.84 0.1.837588.3.579.2.593 1970 Unknown [id number] 2.16.8 40.1.919345.3.579.2.727 1970 Unknown [id number] 2.16.8 40.1.161842.3.579.2.727 1970 Unknown [id number] 2.16.8 40.1.174094.3.579.2.727 1970 Unknown [id number] 2.16.8 40.1.890869.3.579.2.727 1970 Unknown [id number] 2.16.8 40.1.180984.3.579.2.727 1970 Unknown [id number] 2.16.8 40.1.494780.3.579.2.727 1970 Unknown [id number] 2.16.8 40.1.045820.3.579.2.727 1970 Unknown [id number] 2.16.8 40.1.133217.3.579.2.727 1970 Unknown [id number] 2.16.8 40.1.846787.3.579.2.727 1970 Unknown [id number] 2.16.8 40.1.022286.3.579.2.727 1959 Unknown [id number] 1959 Unknown [id number] Unknown [id number] 2.16.8 40.1.532126.3.579.2.531 Social History Date Type Detail Facility Start: 07-18-2020 End: 01-01-2022 Tobacco smoking status LAIS Current every day smoker [facility] Start: 07-18-2020 End: 01-01-2022 Tobacco use and exposure Never used [facility] Start: 07-18-2020 End: 04-04-2022 Alcohol intake Ex-drinker (finding) [facility] Start: 1970 Sex Assigned At Not on file [facility] Start: 09-09-2021 End: 02-05-2022 Exposure to SARS-CoV-2 (event) Not sure [facility] Start: 12-03-2021 End: 12-14-2021 Exposure to SARS-CoV-2 (event) Unable to assess [facility] Start: 06-10-2021 End: 06-20-2021 Exposure to SARS-CoV-2 (event) Yes [facility] Tobacco smoking stat [facility] Tobacco smoking consumption unknown [facility] Start: 1970 Sex Assigned At Female C [facility] History of tobacco use Cigarette Smoker [facility] Start: 01-01-2022 Cigarettes smoked current (pack per day) - Reported 0.5 [facility] History of tobacco use Passive smoker [facility] Start: 09-24-2023 Tobacco smoking status Ex-smoker (fi nding) [facility] Comment on above: quit smoking 2023 Sex Assigned At Female [facility] Start: 01-16-2024 End: 03-23-2024 Tobacco smoking status Light tobacco smoker (finding) [facility] Tobacco smoking status Never [facility] Functional Status Date Assessment Result Facility 03-23-2024 Functional Status N/A [facility] 02-25-2024 Functional Status N/A [facility] 02-21-2024 Functional Status N/A [facility] 01-16-2024 Functional Status N/A [facility] 09-24-2023 Functional Status N/A [facility] Clinical Notes 07-20-2020 to 02-25-2024 Note Date & Type Note Facility 02-25-2024 Evaluation + Plan note Extrac kitty from: Title:TANISHA Post-operative Note---General Author: Dakota Rivas MD Date:02/25/24 Plan Transfer/Discharge: Transfer/Discharge Discharge when meets criteria ( To home ). Extracted from: Title:ANES Pre-operative Note 2022 Author:Dakota Rhoades. Date:02/25/24 Plan [place] [employer] (ASA) physical status classification: Class III. Anesthetic Preoperative Plan: Anesthesia General. Future Scheduled Tests Laboratory* Giardia lamblia, Direct Detection EIA 11/26/23 * O & P Exam, Routine 11/26/23 * Rotavirus Ab 11/26/23 * Clostridium Difficile PCR 11/26/23 Radiology* CT Abdomen/Pelvis w/contrast (enterography) 01/30/24 * XR Small Bowel w/ Serial Films 02/10/24 [facility] 12-10-2024 Hospital Discharge instructions Patient Education 02/25/2024 [...] hard liquor (44 mL). General instructions Take ojmm-ekb-rnxnrgc and prescription medicines only as told by [...] provider. Document Revised: 06/22/2020 Document Reviewed: 06/22/2020 [employer] Patient Education 2023 [employer]. 02/25/2024 11:02:55 Hiatal Hernia Hiatal Hernia A [...] reduce GERD symptoms. Medicines. These may include: ?Sjan-uvq-nqknzox antacids. ?Medicines that make your stomach empty [...] may include: ?Fatty foods, like fried foods. ?[place]ion fruits, like oranges or lemon. ?Other foods [...] Do not drink alcohol. General instructions Take hsil-gxh-ucebhmy and prescription medicines only as told by [...] provider. Document Revised: 05/01/2022 Document Reviewed: 05/01/2022 [employer] Patient Education 2023 [employer]. 02/25/2024 11:02:51 Gastritis, Adult, Isnl-in-Pwtv Gastritis, Adult Gastritis is irritation and swelling [...] Follow these instructions at home: Medicines Take fhxy-wql-uyunhsg and prescription medicines only as told by [...] provider. Document Revised: 07/08/2021 Document Reviewed: 07/08/2021 [employer] Patient Education 2023 [employer]. 02/25/2024 11:02:46 Endoscopy, Care After Procedure [facility] Endoscopy Care After Procedure Please read the instructions outlined below and refer to this sheet in the next few weeks. These discharge instructions provide you with general information on [facility] Your doctor may also give you [...] Document Re-Released: 08/26/2006 ExitCare Patient Information 2009 [place]. [facility] [id number] NoteProgress Note-Physician Patient: SAI PINEDA Age: 53 years Sex: Female : 1970 Associated Diagnoses: None Author: Rob SANDOVAL, Dakota Shoemaker Postoperative Information Postoperative disposition: Postoperative disposition: To PACU. Optimetrix number: Optimetrix number [id number]. Anesthetic utilized: General. Health Status Allergies: Allergic [...] Discharge when meets criteria ( To home ).[facility] Comment: Electronically Signed By: Rob SANDOVAL, Dakota Shoemaker\.br\Date and Time Signed: 02/25/24 11:49 EST 02-25-2024 NotePatient Education - Text Endoscopy Care After Procedure Please read the instructions outlined below and refer to this sheet in the next few weeks. These discharge instructions provide you with general information on [facility] Your doctor may also give [...] Document Re-Released: 08/26/2006 ExitCare??? Patient Information ???2009 [place]. Gastroenterology Hiatal Hernia A hiatal hernia occurs [...] symptoms. ??? Medicines. These may include: ? Adfo-tzi-fobnxff antacids. ? Medicines that make your stomach [...] your health care provide (more content not included)...[facility] NoteProgress Note-Physician Patient: SAI PINEDA Age: [...] day(s), # 56 tab(s), Refills(s) 0, [id number] 169, cm, 02/21/24 8:47:00 EST, Height/Length Dosing, 62.2, kg, 02/21/24 8:47:00 EST, Weight Dosing Questran 4 g/9 g oral powder: = 1 packet(s), Oral, BID, # 60 EA, Refills(s) 2, [id number], 169, cm, 01/16/24 10:14:00 EDT, Height/Length Dosing, 63.9, kg, 01/16/24 10:14:00 EDT, Weight Dosing Spiriva Respimat 60 ACT 2.5 mcg/inh inhalation aerosol: = 2 inh, Inhalation, Daily, # 4 gm, Refills(s) 11, [id number], 169.7, cm, 11/26/23 15:32:00 EDT, Height/Length Dosing, 62.1, kg, 11/26/23 15:32:00 EDT, Weight Dosing Zofran 4 mg Tab: 4 mg = 1 tab(s), Oral, q8hr, PRN Nausea, # 10 tab(s), Refills(s) 0, [id number], 173, cm, 04/26/20 13:07:00 EST, Height/Length Dosing, 52.8, kg, 04/26/20 13:07:00 EST, Weight Dosing Zofran ODT 4 mg Tab-Dis: 4 mg = 1 tab(s), Oral, TID, # 15 tab(s), Refills(s) 0, [id number], 172, cm, 09/24/23 13:02:00 EDT, Height/Length Dosing, 61.2, kg, 09/24/23 13:02:00 EDT, Weight Dosing Zofran ODT 8 mg Tab-Dis: 8 mg = 1 tab(s), SubLingual, q8hr, PRN Nausea/Vomiting, # 24 tab(s), Refills(s) 0, [id number], 169, cm, 01/16/24 10:14:00 EDT, Height/Length Dosing, 63.9, kg, 10/31/24 10:14:00 EDT, Weight Dosing cloNIDine 0.2 mg Tab: 0.2 mg = 1 tab(s), Oral, Bedtime, # 30 tab(s), Refills(s) 1, [id number], 173, cm, 05/24/20 14:42:00 EST, Height/Length Dosing, 50.1, kg, 05/24/20 14:42:00 EST,Weight Dosing colestipol 1 g Tab: 2 gm = 2 tab(s), Oral, BID, with a full glass of water, # 120 tab(s), Refills(s) 1, [id number], 169, cm, 01/16/24 10:14:00 EDT, Height/Length Dosing, 63.9, kg, 01/16/24 10:14:00 EDT, Weight Dosing hydrOXYzine hydrochloride 50 mg oral tablet: 50 mg = 1 tab(s), Oral, TID, PRN as needed for anxiety, # 30 tab(s), Refills(s) 0, [id number], 173, cm, 04/26/20 13:07:00 EST, Height/Length Dosing, 52.8, kg, 04/26/20 13:07:00 EST, Weight Dosing lamotrigine 25 mg Tab: See Instructions, TAKE 1 TABLET BY MOUTH EVERY DAY IN THE AFTERNOON, # 30 tab(s), Refills(s) 0, Pharmacy: [id number], 169.7, cm, 11/26/23 15:32:00 EDT, Height/Length Dosing, 62.1, kg, 11/26/23 15:32:00 EDT, Weight Dosing mirtazapine 7.5 mg oral tablet: 7.5 mg = 1 tab(s), Oral, Bedtime, # 30 tab(s), Refills(s) 0, [id number], 169.7, cm, 10/03/23 9:38:00 EDT, Height/Length Dosing, 62.5, kg, 10/03/23 9:38:00 EDT, Weight Dosing omeprazole 20 mg Cap-DR: See Instructions, TAKE 1 CAPSULE BY MOUTH EVERY DAY, # 30 cap(s), Refills(s) 0, Pharmacy: [facility] [id number], 169, cm, 02/21/24 8:47:00 EST, Height/Length Dosing, 62.2, kg, 02/21/24 8:47:00 EST, Weight Dosing ondansetron 4 mg Dis Tab: 4 mg = 1 tab(s), Oral, q6hr, PRN Nausea/Vomiting, # 30 tab(s), Refills(s)0, [id number], 169.7, cm, 11/26/23 15:32:00 EDT, Height/Length Dosing, 62.1, kg, 11/26/23 15:32:00 EDT, Weight Dosing ondansetron 8 mg Dis Tab: See Instructions, DISSOLVE 1 TABLET ON THE TONGUE EVERY 8 HOURS NEEDEDFOR NAUSEA AND VOMITING, # 24 tab(s), Refills(s) 0, [id number], 169, cm, 02/17/2411:55:00 EST, Height/Length Dosing, 61.8, kg, 02/18/24 11:55:00 EST, Weight D... promethazine 25 mg Tab: 25 mg = 1 tab(s), Oral, TID, # 15 tab(s), Refills(s) 0, Pharmacy: [id number], 169, cm, 01/16/24 10:14:00 EDT, Height/Length Dosing, 63.9, kg, 01/16/24 10:14:00 EDT, Weight Dosing promethazine 25 mg Tab: See Instructions, TAKE 1 TABLET BY MOUTH THREE TIMES A DAY, # 30 tab(s), Refills(s) 1, Pharmacy: [id number], 169, cm, 02/18/24 11:55:00 EST, Height/Length Dosing, 61.8, kg, 02/18/24 11:55:00 E (more content not included)...[facility]Result Comment: Electronically Signed By: Rob SANDOVAL, Dakota Shoemaker\.br\Date and Time Signed: 02/25/24 10:18 [id number] Evaluation + Plan note Future Scheduled Tests Laboratory* Giardia lamblia, Direct Detection EIA 11/26/23 * O & P Exam, Routine 11/26/23 * Rotavirus Ab 11/26/23 * Clostridium Difficile PCR 11/26/23 Radiology* XR Small Bowel w/ Serial Films 02/10/24 [facility] 09-10-2024 Evaluation + Plan note Future Scheduled Tests Laboratory* Giardia lamblia, Direct Detection EIA 11/26/23 * O & P Exam, Routine 11/26/23 * Rotavirus Ab 11/26/23 * Clostridium Difficile PCR 11/26/23 Radiology* CT Abdomen/Pelvis w/contrast (enterography) 01/30/24 * XR Small Bowel w/ Serial Films 02/10/24 [facility] 07-09-2024 Hospital Discharge instructions [...] Treatment for this condition includes: Antibiotic medicine. Appy-iiy-ujepeql medicines to treat discomfort. Drinking enough water [...] Follow these instructions at home: Medicines Take owph-gyr-mjzbiiu and prescription medicines only as told by [...] provider. Document Revised: 10/14/2020 Document Reviewed: 10/14/2020 [employer] Patient Education 2022 [employer]. Follow Up Care 09/24/2023 12:53:04 With:CHANCE SERRANO Address: [address] [place] [phone] Business (1) When:09/27/2023 15:19:10 [facility]07-09-2024 Evaluation + Plan note Diagnostic Tests Pending * Urine Culture 09/24/23 [facility]02-21-2023 Miscellaneous Notes* Telephone Encounter - Eva Chong - 05/08/2022 10:40 AM EST 05/08/22 Patient calling to see if Dr Morales will write her a script for Zofran nausea medication strips. [phone] Eva [facility] NoteHNO ID: [id number] Author: Tiffani Morales MD Service: ? Author [...] Tiffani Morales MD 04/24/2022 11:19 AM Staff Cook [place]ili, [facility] [place] PRIMARY PROBLEM: small bowel tumor, severe malnutrition [...] clips were successfully placed (MR conditional). Clip flash designer: Your Office Agent. There was no bleeding at the end [...] patient, physical examination, documentation, and co-ordination of care.[facility]02-07-2023 History of Present illness Narrative* [...] Tiffani Morales MD 04/24/2022 11:19 AM Staff Cook [place], [facility] [place] PRIMARY PROBLEM: small bowel tumor, severe malnutrition [...] clips were successfully placed (MR conditional). Clip flash designer: Your Office Agent. There was no bleeding at the end [...] co- ordination of care. documented in this encounterMem[facility]23 Miscellaneous Notes* Telephone Encounter - Eva Chong - 04/05/2022 9:29 AM EST 04/05/22 Patient wants tow know if y script you can send her script for ZOFRAN, under the tongue tablets. For nausea. Eva documented in this encounterMemorial Health [facility]01-18-2023 NoteHNO ID: [id number] Author: Frederick Chaves APRN.PURCHASING MANAGER/SALES Service: ? Author Type: Nurse Gear Lapping Machine Operator Type: Anesthesia Procedure Notes Filed: 04/04/2022 1:55 PM Note Text: ANESTHESIOLOGY PROCEDURE NOTE Airway General Information Procedure Start Time/Medication Administration: 04/04/2022 1:38 PM Patient location during procedure: OR Timeout Performed Pre-procedure: timeout performed Consent Obtained: Yes Patient identity confirmed: arm band Staffing PURCHASING MANAGER/SALES: Frederick Chaves APRN.PURCHASING MANAGER/SALES Performed by: PURCHASING MANAGER/SALES Indications and Patient Condition Indications for airway [...] 1 Airway not difficult SIGNATURE: Frederick Chaves APRN.PURCHASING MANAGER/SALES PATIENT NAME: Sai Pineda DATE: April 04, 2022 TIME: 1:54 PM CSN: [id number]23 NoteHNO ID: [id number] Author: Frederick Chaves APRN.PURCHASING MANAGER/SALES Service: ? Author Type: Nurse Gear Lapping Machine Operator Type: Anesthesia Procedure Notes Filed: 04/04/2022 1:51 PM Note Text: ANESTHESIOLOGY PROCEDURE NOTE PIV General Information Procedure Start Time/Medication Administration: 04/04/2022 1:26 PM Patient Location: OR Staffing PURCHASING MANAGER/SALES: Frederick Chaves APRN.PURCHASING MANAGER/SALES Performed by: PURCHASING MANAGER/SALES Preparation Sterility Preparation: hand hygiene performed prior to procedure, surgical cap used, mask used, skin prep agent completely dried prior to procedure Site Prep: alcohol Procedure Details Indication: need for IV access Needle Size/Type: 22 gauge angiocath Orientation: Right Location: Foot Imaging Guidance Used: No SIGNATURE: Frederick Chaves APRN.PURCHASING MANAGER/SALES PATIENT NAME: Sai Pineda DATE: April 04, 2022 TIME: 1:49 PM CSN: [id number]01-18-2023 Nurse Note* Eduardo Harrington RN - 04/04/2022 [...] RN In Department: GASTROENTEROLOGY documented in this encounterMemorial Health [facility]01-18-2023 NoteQ3 Patient Name: Sai Pineda [...] clips were successfully placed (MR conditional). Clip flash designer: Your Office Agent. There was no bleeding at the end of the maneuver. Exam of the jejunum was otherwise normal. Impression: - Atrophic mucosa. - Jejunal polyp(s). Resected and retrieved. Tattooed. Clips (MR conditional) were placed. Clip flash designer: [place] P[employer]. Estimated Blood Loss: Estimated blood loss was minimal. Recommendation: - Await pathology results. - Resume previous diet. - Continue present medications. - Return to endoscopist at the next available appointment. Procedure Code(s): --- Professional --- 94313, Small intestinal endoscopy, enteroscopy beyond second portion of duodenum, not including ileum; with removal of tumor(s), polyp(s), or other lesion(s) by snare technique 63688, Unlisted procedure, small intestine Diagnosis Code(s): --- Professional --- K31.89, Other diseases of stomach and duodenum D13.39, Benign neoplasm of other parts of small intestine R93.3, Abnormal findings on diagnostic imaging of other parts of digestive tract CPT copyright 2020 [employer]. All rights reserved. Attending Participation: I was present and participated during the entire procedure, including non-morrison portions. Scope In: 1:44:30 PM Scope Out: 3:07:42 PM MD Tiffani Camargo MD 04/04/2022 3:21:50 PM This report has been signed electronically by Tiffani Morales MD Number of Addenda: 0 (more content not included)...[facility] 04-04-2022 History and physical note* [...] DATE: 04/04/2022 TIME: 1302 documented in this encounterMemorial [facility]01-11-2023 Miscellaneous Notes* Telephone Encounter - Eduardo Harrington RN - 03/28/2022 3:50 PM EST Attempted to reach the patient at the contact number that they provided [phone] (home) . Unable to speak with patient so without identifying the patient the following information was left on their voice mail: Date of procedure, location and report time A message was left informing the patient/patient ambulatory services representative they must have a responsible [...] Number to call with questions or concerns [phone] Number to call to cancel their procedure [phone] Eduardo Harrington RN documented in this encounterMemorial Health [facility]12-27-2022 Note* Addendum Note - Robb Evans MD - 03/13/2022 3:44 PM ESTAddended by: ROBB EVANS on: 03/13/2022 03:44 PM Modules accepted: Orders [id number] Miscellaneous Notes* Addendum Note - Robb Evans MD - 03/13/2022 3:44 PM ESTAddended by: ROBB EVANS on: 03/13/2022 03:44 PM Modules accepted: Orders * Addendum Note - Gokul Montoya MA - 03/13/2022 3:37 PM ESTAddended by: GOKUL MONTOYA on: 03/13/2022 03:37 PM Modules accepted: Orders documented in this [id number] Note* Addendum Note - Gokul Montoya MA - 03/13/2022 3:37 PM ESTAddended by: GOKUL MONTOYA on: 03/13/2022 03:37 PM Modules accepted: Orders [id number] Note* Addendum Note - Gokul Montoya MA - 03/13/2022 3:37 PM ESTAddended by: GOKUL MONTOYA on: 03/13/2022 03:37 PM Modules accepted: Orders [id number] Miscellaneous Notes* Addendum Note - Gokul Montoya MA - 03/13/2022 3:37 PM ESTAddended by: GOKUL MONTOYA on: 03/13/2022 03:37 PM Modules accepted: Orders documented in this [id number] NoteHNO ID: [id number] Author: Tiffani Morales MD Service: ? Author [...] Tiffani Morales MD 03/01/2022 11:19 AM Staff Cook Chili, [facility] [place] PRIMARY PROBLEM: small bowel tumor, severe malnutrition [...] patient, physical examination, documentation, and co-ordination of care.[facility]12-15-2022 History of Present illness Narrative* [...] access the video or audio with a RedHelpervite. IMPRESSION: Sai Pineda is a 51 year [...] Tiffani Morales MD 03/01/2022 11:19 AM Staff Cook [place], [facility] [place] PRIMARY PROBLEM: small bowel tumor, severe malnutrition [...] co- ordination of care. documented in this encounterMemorial Health [facility]12-02-2022 NoteHNO ID: [id number] Author: Anastasiya Mosqueda PA-C Service: ? Author Type: Physician Sheetmetal Patternmaker Type: Progress Notes Filed: 02/16/2022 5:07 PM Note Text: Orders placedUniversity [facility]als [facility]11-21-2022 NoteHNO ID: [id number] Author: RT Fabiana(R) Service: Nuclear Medicine Author [...] safety can be found using this link: [email or web address]-%20Diagnostic%20Nuclear%20Medicine%20Procedures.[email or web address] SIGNATURE: RT Fabiana(R) PATIENT NAME: Sai Pineda DATE: February 05, 2022 TIME: 10:16 AM PAGER/CONTACT #:[facility]11-14-2022 NoteHNO ID: [id number] Author: Dolores Lopez RN Service: ? Author Type: Registered Nurse Type: Progress Notes Filed: 02/01/2022 4:29 PM Note Text: Summary: capsule endoscopy small bowel Capsule endoscopy small bowel ingested without difficulty @ 1300 on 01-29-2022. Therese Lopez RN 29266C MFW PTF G 65939A Capsule Endoscopy Post Ingestion Patient Information Do [...] cell phones, computers, remote TV appliances, microwaves, [employer] players and digital cameras. Because the capsule [...] hours you may call: HERNÁN Salvador RN [phone] After Business hours: [phone] and ask for GI [facility]Wjc[facility]ukjzSam[facility]11-14-[facility]22 History of Present illness Narrative* Dolores Lopez RN - 01/29/2022 1:17 PM ESTSummary: capsule endoscopy small bowel Capsule endoscopy small bowel ingested without difficulty @ 1300 on 01-29-2022. Therese Lopez RN 34505B MFW PTF G [id number] Capsule Endoscopy Post Ingestion Patient Information Do [...] on thebox for return to the main hiland. Place the box in the closest [employer] [...] hours you may call: HERNÁN Salvador RN [phone] After Business hours: [phone] and ask for GI Aolyxc-Ig-Rtp documented in this encounterMemorial Health [facility]10-21-2022 Miscellaneous Notes* Telephone Encounter - [...] Morales MD 01-05-2022 17:51 documented in this encounterMemorial Health System [facility]10-21-2022 NoteHNO ID: [id number] Author: Anastasiya Mosqueda PA-C Service: ? Author Type: Physician Sheetmetal Patternmaker Type: Progress Notes Filed: 01/05/2022 2:24 PM Note Text: Per discussion with Dr. Morales, SUZANNE, Small bowel capsule study, Fecal fat qual and pancreatic elastase stool studies orders placed. Discussed plan with patient. [facility] History of Present illness Narrative* Anastasiya Mosqueda PA-C - 01/05/2022 2:13 PM EDT Per discussion with SUZANNE Estrada, Small bowel capsule study, Fecal fat qual and pancreatic elastase stool studies orders placed. Discussed plan with patient. Anastasiya Mosqueda PA-C documented in this encounterMemorial Health System [facility]10-21-2022 Miscellaneous Notes* Telephone Encounter - [...] testing. Anastasiya Mosqueda PA-C documented in this encounterMemorial Health System [facility]10-19-2022 Miscellaneous Notes* Telephone Encounter - Anastasiya Mosqueda PA-C - 01/03/2022 10:17 AM EDT EGD results discussed with patient as requested, pathology still pending. Will reach out to patientonce resulted. Red flags for in person care discussed. Anastasiya Mosqueda PA-C documented in this encounterMemorial Health [facility]10-18-2022 Miscellaneous Notes* Telephone Encounter - Leydi Dumontader - 01/02/2022 8:47 AM EDT Patient called to get results from her procedure. Please contact her at number listed in system. Thanks Leydi Henry Workleader documented in this encounterMemorial Health [facility]10-17-2022 Nurse Note* Juan Carlos Saucedo [...] RN In Department: GASTROENTEROLOGY documented in this encounterMemorial Health [facility]10-17-2022 History and physical note * [...] DATE: 01/01/2022 TIME: 1600 documented in this encounterMemorial Health [facility]10-10-2022 Miscellaneous Notes* Telephone Encounter - Rima Gerard RN - 12/25/2021 8:26 AM EDT Patient scheduled incorrectly. Anesthesia not supposed to have 430 case. I called patient to see ifthey can come in early. She said she would call me back Rima Gerard RN documented in this encounterMemorial Health [facility]09-30-2022 NoteHNO ID: [id number] Author: Anastasiya Mosqueda PA-C Service: ? Author Type: Physician Sheetmetal Patternmaker Type: Progress Notes Filed: 12/15/2021 4:32 PM Note Text: VIRTUAL VISIT NEW PATIENT NAME: Sai Guerrero CLINIC NO: [id number] DATE: 12/15/2021 REASON FOR VISIT Sai Guerrero [id number] has requested a video telemedicine initial [...] abdominal rigidity Assessment IMPRESSION (more content not included)...[facility]09-30-2022 History of Present illness Narrative* Anastasiya Mosqueda PA-C - 12/15/2021 11:50 AM EDT VIRTUAL VISIT NEW PATIENT NAME: Sai Guerrero [facility] NO: [id number] DATE: 12/15/2021 REASON FOR VISIT Sai Guerrero [id number] 1970 has requested a video telemedicine initial [...] 15, 2021 11:51 AM documented in this encounterMemorial Health [facility]09-29-2022 NoteHNO ID: [id number] Author: Anastasiya Mosqueda PA-C Service: ? Author Type: Physician Sheetmetal Patternmaker Type: Progress Notes Filed: 12/14/2021 3:51 PM Note Text: Unable to connect to VV, called multiple times and left multiple VM's. Patient rescheduled for tomorrow.[facility]09-29-2022 History of Present illness Narrative* Anastasiya Mosqueda PA-C - 12/14/2021 10:52 AM EDT Unable to connect to VV, called multiple times and left multiple VM's. Patient rescheduled for tomorrow. documented in this encounterMemorial Health [facility]09-28-2022 Miscellaneous Notes* Telephone Encounter - Elizabeth Ricci - 12/13/2021 12:32 PM EDT Spoke to patient's daughter - she will contact the [employer] support line to assist with setting up patient's Mychart & assist with set up for virtual visit tomorrow morning Elizabeth Ricci * Telephone Encounter - Elizabeth Ricci - 12/13/2021 11:17 AM EDT Received a call from patient's health agency concerning virtual visit set up with you today at 11 - Patient has not registered for [employer] (having trouble accessing her email) & they want to knowif you will do a phone visit instead Was told this was an urgent request from the referring doctor's office - the visit was scheduled thru the Referring Physician office There are no records found for this patient & I attempted to pull records thru Care Everywhere Patient's phone [phone] Elizabeth Ricci documented in this encounterMemorial Health [facility]07-13-2022 History of Present illness Narrative* Robb Evans MD - 09/27/2021 10:19 AM EDT Prolactin Level Elevated at 146. Will add Abilify 5 mg daily to address that. Pt informed. Pt is denying breast tenderness or documented in this [id number] History of Present illness Narrative* Robb Evans MD - 09/19/2021 2:19 PM EDT BEHAVIORAL HEALTH PSYCHIATRIC PROGRESS NOTE Reason for visit: Psychotropic medication management 09/19/2021 Patient is seen alone in his office for psychotropic medication management. Patient reported they are moving to a new residence, in [place] same place they have been living in. [...] Testing: none Robb Evans documented in this [id number] History of Present illness Narrative* Robb Evans [...] Testing: none Robb Evans documented in this [id number] History of Present illness Narrative* Robb Evans MD - 03/01/2021 1:31 PM EST Telephone Visit Via Phone Call [facility] [address]) [facility] [address] [facility] [phone] Telephone Visit [facility] 03/01/2021 Robb Evans MD Provider Location: [facility] Patient Location Frame Straightener: None Patient Location: Patient's Home Patient: Sai [...] there are inherent diagnostic limitations compared to kbym-ny-mdlw evaluations. We elected toproceed with the telephone [...] and Plan of Care. documented in this [id number] History of Present illness Narrative* Robb Evans MD - 08/22/2020 3:27 PM EDT Telephone Visit Via Phone Call [facility] [phone] Telephone Visit [facility] 08/22/2020 Robb Evans MD Provider Location: [facility] Patient Location Frame Straightener: None Patient Location: Patient's Home Patient: Sai [...] there are inherent diagnostic limitations compared to fuvp-xe-zlfa evaluations. We elected toproceed with the telephone [...] and Plan of Care. documented in this [id number] History of Present illness Narrative* Robb Evans MD - 07/20/2020 11:29 AM EDT BEHAVIORAL HEALTH PSYCHIATRIC ASSESSMENT DOS: 07/18/3020 Reason for visit: Psychotropic management follow-up. Patient is here to reestablish care at my new location HPI: Patient is seen in office alone. [facility] Her working diagnosis is bipolar disorder type I, panic disorder with agoraphobia and PTSD. She has prior history of alcohol and cannabis abuse but has maintained sobriety for about last 1 year. Patient was seen here for reestablishing care at my new location in [facility]. Patient wants to continue her psychiatric management.. She had briefly seen a nurse practitioner in [place]. Patient reported she she is [...] [facility]), in remission Anxiety Bipolar disorder (HCC) [...] XR Small Bowel w/ Serial Films 01/27/24 [facility] Evaluation + Plan note Future Appointments Appointment Date:02/25/2024 11:00:00 AM Scheduled Provider: Location:[facility] Appointment Type:Surgery FT Future Scheduled Tests Laboratory* Giardia lamblia, Direct Detection EIA 11/26/23 * O & P Exam, Routine 11/26/23 * Rotavirus Ab 11/26/23 * Clostridium Difficile PCR 11/26/23 Radiology* CT Abdomen/Pelvis w/contrast (enterography) 01/30/24 * XR Small Bowel w/ Serial Films 02/10/24 [facility] Evaluation note* Diagnosis Generalized [...] of high-risk medication documented in this encounter [facility] note* Diagnosis Generalized anxiety disorder documented in this encounter [facility] note* Diagnosis Bipolar 1 disorder, mixed, mild (HCC)- Primary Generalized anxiety disorder Long-term use of high-risk medication documented in this encounter [facility] note* Diagnosis Generalized anxiety disorder- Primary Bipolar 1 disorder, mixed, mild (HCC) Long-term use of high-risk medication Post traumatic stress disorder (PTSD) documented in this encounter [facility] note* Diagnosis Bipolar 1 disorder, mixed, mild (HCC)- Primary Generalized anxiety disorder Long-term use of high-risk medication documented in this encounter [facility] note* Diagnosis APPOINTMENT CANCELLED- Primary documented in this encounter [facility] note* Diagnosis Nausea and vomiting, unspecified vomiting type- Primary Left upper quadrant abdominal pain Weight loss Loss of weight documented in this encounter [facility] note* Diagnosis Nausea and vomiting, unspecified vomiting type Left upper quadrant abdominal pain documented in this encounter [facility] note* Diagnosis Nausea- Primary Nausea alone Weight loss Loss of weight 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, jejunum, and ileum documented in this encounter [facility] note* Diagnosis Abdominal pain, unspecified abdominal location- Primary documented in this encounter [facility] note* Diagnosis Intestinal polyposis- Primary Benign neoplasm of colon documented in this encounter [facility] note* Diagnosis Severe protein-calorie malnutrition (HCC)- Primary Other severe protein-calorie malnutrition 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 Weight loss Loss of weight Severe malnutrition (HCC) 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 [facility] note* Diagnosis Generalized anxiety disorder documented in this encounter [facility] note* Diagnosis Generalized anxiety disorder documented in this encounter [facility] note* Diagnosis Generalized anxiety disorder documented in this encounter [facility] note* Diagnosis 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 documented in this encounter [facility] note* Diagnosis Generalized anxiety disorder documented in this encounter [facility] note* Diagnosis Severe malnutrition (HCC)- Primary 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 [facility] course Narrative No data available for this section [facility] No data available for this section [facility] Progress note No data available for this section [facility] (narrative)* Outpatient Procedure (Routine) - Closed Specialty Diagnoses / Procedures Referred By Shane titus Referred To Contact [facility] Diagnoses Nausea and vomiting, unspecified vomiting type Left upper quadrant abdominal pain Procedures EGD DIAGNOSTIC ESOPHAGOGASTRODUODENOSC OPY TRANSORAL DIAGNOSTIC Anastasiya Mosqueda PA-C [address] [place] [address] [place] [address] [place] [address] Referral ID Status Reason Start Date Expiration Date V isits Requested Visits Authorized [id number] Closed Auto-Generate d Referral 12/15/2021 12/15/2022 1 1 [facility] for referral (narrative)* Outpatient Procedure (Routine) - Pending Review Specialty Diagnoses / Procedures Referred By Shane titus Referred To Contact [facility] Diagnoses Small bowel polyp Procedures CAPSULE ENDOSCOPY SMALL BOWEL GI TRC IMG INTRALUMINAL ESOPHAGUS-ILEUM W/I&R Anastasiya Mosqueda PA-C [address] [place] [address] [facility] [address] [place] [address] Referral ID Status Reason Start Date Expiration Date Visits Requested Visits Authorized [id number] Pending Review Auto-Generat ed Referral 2 01/05/2023 1 1 * Diagnostic Procedure Only (Routine) - Pending Review Specialty Diagnoses / Procedures Referred By Shane titus Referred To Contact [facility] Diagnoses Nausea Procedures NM GASTRIC EMPTYING SOLID GASTRIC EMPTYING STUDY Anastasiya Mosqueda PA-C [address] [place] [address] Molecular & Functional Imaging [address] [place] [address] Referral ID Status Reason Start Date Expiration Date Visits Requested Visits Authorized [id number] Pending Review Auto-Generat ed Referral 2 02/04/2023 1 1 [facility] for referral (narrative)* Outpatient Procedure (Routine) - Pending Review Specialty Diagnoses / Procedures Referred By Contac t Referred To Contact [facility] Diagnoses 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) Procedures ENTEROSCOPY ENDOSCOPY UPPER SMALL INTESTINE Tiffani Morales MD [address] [place] [address] [facility] [place] [address] [place] [id number] Referral ID Status Reason Start Date Expiration Date Visits Requested Visits Authorized [id number] Pending Review Auto-Generat ed Referral 2 03/02/2023 1 1 * MRI/CT (Routine) - Pending Review Specialty Diagnoses / Procedures Referred By Contac t Referred To Contact CT IMAGING Diagnoses 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) Weight loss Procedures CT ENTEROGRAPHY W IVCON CT ABD & PELVIS W/CONTRAST Tiffani Morales MD [address] [place] [address] Ct [facility] Referral ID Status Reason Start Date Expiration Date Visits Requested Visits Authorized [id number] Pending Review Auto-Generat ed Referral 2 04/01/2023 1 1 [facility] for referral (narrative)* Outpatient Procedure (Routine) - Closed Specialty Diagnoses / Procedures Referred By Contrachel t Referred To Contact [facility] Diagnoses 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) Procedures ENTEROSCOPY ENDOSCOPY UPPER SMALL INTESTINE Tiffani Morales MD [address] [place] [address] [facility] [address] [address] Referral ID Status Reason Start Date Expiration Date V isits Requested Visits Authorized [id number] Closed Auto-Generate d Referral 03/02/2022 03/02/2023 1 1 [facility] for visit Narrative* Outpatient Procedure (Routine) - Closed Specialty Diagnoses / Procedures Referred By Contac t Referred To Contact [facility] Diagnoses Nausea and vomiting, unspecified vomiting type Left upper quadrant abdominal pain Procedures EGD DIAGNOSTIC ESOPHAGOGASTRODUODENOSC OPY TRANSORAL DIAGNOSTIC Anastasiya Mosqueda PA-C [address] [id number] [facility] Disease [address] [address] Referral ID Status Reason Start Date Expiration Date V isits Requested Visits Authorized [id number] Closed Auto-Generate d Referral 12/15/2021 12/15/2022 1 1 [facility] for visit Narrative* Outpatient Procedure (Routine) - Closed Specialty Diagnoses / Procedures Referred By Contac t Referred To Contact [facility] Diagnoses 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) Procedures ENTEROSCOPY ENDOSCOPY UPPER SMALL INTESTINE Tiffani Morales MD [address] [place] [address] [facility] Disease [place] [id number] Referral ID Status Reason Start Date Expiration Date V isits Requested Visits Authorized [id number] Closed Auto-Generate d Referral 03/02/2022 03/02/2023 1 1 [facility] Advance Directives No Advanced Directives Records FoundDocuments on File Type Date Recorded 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 Advance Directives and Living Will [...] HIGH MDM 60-74 MINUTES Anastasiya Mosqueda PA-C [address] [place] [address] Referral ID Status Reason Start Date Expiration Date Visits Requested Visits Authorized [id number] Authorized PCP Requested Referral 12/15/2021 12/15/2022 1 1 Specialty Diagnoses / Procedures Referred By Shane titus Referred To Contact [facility] Diagnoses Nausea and vomiting, unspecified vomiting type Left upper quadrant abdominal pain Procedures EGD DIAGNOSTIC ESOPHAGOGASTRODUODENOSC OPY TRANSORAL DIAGNOSTIC Anastasiya Mosqueda PA-C [address] [place] [address] [facility] Disease [place] [address] [place] [address] Referral ID Status Reason Start Date Expiration Date Visits Requested Visits Authorized [id number] Authorized Auto-Generat ed Referral 12/15/2021 12/15/2022 1 1 Medications Administered Section Inactive Administered Medications - up to 3 most recent administrations Medication Order MAR Action Action Date Dose Rate Site benzocaine 20% (TOPEX) TOPICAL, X (OR/PROCEDURE) PRN, Starting on Sat01/01/22 at 1606, Until Sat01/01/22 at 1606, Intraprocedure Given 01/01/2022 4:06 PM EDT 1 [place] NaCl 0.9% iv infusion 30 mL/hr, INTRAVENOUS, [...] Care Teams (unrecognized sec tion and content) Sign Painter Relationship Specialty Start Date End Date Cristina Iqbal, ASSISTANT [employer] ATT[employer]NEY [address] [place] [address] PCP - General Nurse Practitioner 07/18/20 Sign Painter Relationship Specialty Start Date End Date Cristina Iqbal [employer] [address] [facility] [place] [address] PCP - General Nurse Practitioner 07/18/20 Sign Painter Relationship Specialty Start Date End Date Cristina Iqbal, [employer] ATT[employer]NEY [address] [facility] [place] [address] PCP - General Nurse Practitioner 07/18/20 Sign Painter Relationship Specialty Start Date End Date Cristina Iqbal [employer] [address] [facility] [place] [address] PCP - General Nurse Practitioner 07/18/20 Sign Painter Relationship Specialty Start Date End Date Cristina Iqbal ASSIST[employer] ATTORNEY [address] [facility] [place] [facility] [place] [address] PCP - General Nurse Practitioner 07/18/20 Sign Painter Relationship Specialty Start Date End Date Cristina Iqbal [employer] [address] [place] [address] PCP - General Family Medicine 10/15/12 Sign Painter Relationship Specialty Start Date End Date Cristina Iqbal [employer] [address] [place] [address] PCP - General Family Medicine 10/15/12 Sign Painter Relationship Specialty Start Date End Date Cristina Iqbal, [employer] ATT[employer] [address] [place] [address] PCP - General Family Medicine 10/15/12 Sign Painter Relationship Specialty Start Date End Date Cristina Iqbal, [employer] [address] [place] [address] PCP - General Family Medicine 10/15/12 Sign Painter Relationship Specialty Start Date End Date Cristina Iqbal, [employer] ATTORNEY [address] [place] [address] PCP - General Family Medicine 10/15/12 Sign Painter Relationship Specialty Start Date End Date Cristina Iqbal, [employer] [address] [place] [address] PCP - General Family Medicine 10/15/12 Sign Painter Relationship Specialty Start Date End Date Cristina Iqbal, ASS[employer] ATTORNEY [address] [place] [address] PCP - General Family Medicine 10/15/12 Sign Painter Relationship Specialty Start Date End Date Cristina Iqbal, ASSIST[employer] ATTORNEY [address] [place] [address] PCP - General Family Medicine 10/15/12 Sign Painter Relationship Specialty Start Date End Date Cristina Iqbal, [employer] ATTORNEY [address] [place] [address] PCP - General Nurse Practitioner 07/18/20 Sign Painter Relationship Specialty Start Date End Date Cristina Iqbal, ASS[employer] ATTORNEY [address] [place] [address] PCP - General Family Medicine 10/15/12 Sign Painter Relationship Specialty Start Date End Date Cristina Iqbal, ASSISTANT [employer] ATTORNEY [address] [place] [address] PCP - General Family Medicine 10/15/12 Sign Painter Relationship Specialty Start Date End Date Cristina Iqbal, ASSISTANT [employer] ATTORNEY [address] [place] [address] PCP - General Family Medicine 10/15/12 Sign Painter Relationship Specialty Start Date End Date Cristina Iqbal, ASSISTANT [employer] ATTORNEY [address] [place] [address] PCP - General Family Medicine 10/15/12 Sign Painter Relationship Specialty Start Date End Date Cristina Iqbal, ASSISTANT [employer] ATTORNEY [address] [place] [address] PCP - General Nurse Practitioner 07/18/20 Sign Painter Relationship Specialty Start Date End Date Cristina Iqbal, ASSISTANT [employer] ATTORNEY [address] [place] [address] PCP - General Nurse Practitioner 07/18/20 Sign Painter Relationship Specialty Start Date End Date Cristina Iqbal, ASSISTANT [employer] ATTORNEY [address] [place] [address] PCP - General Family Medicine 10/15/12 Sign Painter Relationship Specialty Start Date End Date Cristina Iqbal, ASSISTANT [employer] ATTORNEY [address] [place] [address] PCP - General Family Medicine 10/15/12 Sign Painter Relationship Specialty Start Date End Date Cristina Iqbal, ASS[employer] ATT[employer] [address] [place] [address] PCP - General Family Medicine 10/15/12 Sign Painter Relationship Specialty Start Date End Date Cristina Iqbal, ASSISTANT [employer] ATTORNEY [address] [place] [address] PCP - General Family Medicine 10/15/12 INFORMATION SOURCE (unrecogn ized section and content) DATE CREATED AUTHOR 12/16/2021 [facility] DATE CREATED AUTHOR AUTHOR'S ORGANIZ ATION 12/20/2021 [facility] DATE CREATED AUTHOR AUTHOR'S ORGANIZ ATION 05/12/2022 [facility] DATE CREATED AUTHOR AUTHOR'S ORGANIZ ATION 05/31/2022 [facility] DATE CREATED AUTHOR AUTHOR'S ORGANIZ ATION 03/04/2024 [facility] DATE CREATED AUTHOR AUTHOR'S ORGANIZ ATION 03/29/2024 [facility] DATE CREATED AUTHOR AUTHOR'S ORGANIZ ATION 05/14/2024 [facility] DATE CREATED AUTHOR AUTHOR'S ORGANIZ ATION 05/19/2024 [facility] Source Comments (unrecognize d section and content) In the event this informatio n is protected by the Federal Confidentiality of Alcohol and Drug Abuse Patient Records regulations: The Federal rules restrict any use of the information to criminally investigate or prosecute any alcohol or drug abuse patient.[facility] the event this information is protected by the Federal Confidentiality of Alcohol and Drug Abuse Patient Records regulations: The Federal rules restrict any use of the information to criminally investigate or prosecute any alcohol or drug abuse patient.[facility] the event this information is protected by the Federal Confidentiality of Alcohol and Drug Abuse Patient Records regulations: The Federal rules restrict any use of the information to criminally investigate or prosecute any alcohol or drug abuse patient.[facility] the event this information is protected by the Federal Confidentiality of Alcohol and Drug Abuse Patient Records regulations: The Federal rules restrict any use of the information to criminally investigate or prosecute any alcohol or drug abuse patient.[facility] the event this information is protected by the Federal Confidentiality of Alcohol and Drug Abuse Patient Records regulations: The Federal rules restrict any use of the information to criminally investigate or prosecute any alcohol or drug abuse patient.[facility] the event this information is protected by the Federal Confidentiality of Alcohol and Drug Abuse Patient Records regulations: The Federal rules restrict any use of the information to criminally investigate or prosecute any alcohol or drug abuse patient.[facility] the event this information is protected by the Federal Confidentiality of Alcohol and Drug Abuse Patient Records regulations: The Federal rules restrict any use of the information to criminally investigate or prosecute any alcohol or drug abuse patient.[facility] the event this information is protected by the Federal Confidentiality of Alcohol and Drug Abuse Patient Records regulations: The Federal rules restrict any use of the information to criminally investigate or prosecute any alcohol or drug abuse patient.[facility] the event this information is protected by the Federal Confidentiality of Alcohol and Drug Abuse Patient Records regulations: The Federal rules restrict any use of the information to criminally investigate or prosecute any alcohol or drug abuse patient.[facility] the event this information is protected by the Federal Confidentiality of Alcohol and Drug Abuse Patient Records regulations: The Federal rules restrict any use of the information to criminally investigate or prosecute any alcohol or drug abuse patient.[facility] the event this information is protected by the Federal Confidentiality of Alcohol and Drug Abuse Patient Records regulations: The Federal rules restrict any use of the information to criminally investigate or prosecute any alcohol or drug abuse patient.[facility] the event this information is protected by the Federal Confidentiality of Alcohol and Drug Abuse Patient Records regulations: The Federal rules restrict any use of the information to criminally investigate or prosecute any alcohol or drug abuse patient.[facility] the event this information is protected by the Federal Confidentiality of Alcohol and Drug Abuse Patient Records regulations: The Federal rules restrict any use of the information to criminally investigate or prosecute any alcohol or drug abuse patient.[facility] the event this information is protected by the Federal Confidentiality of Alcohol and Drug Abuse Patient Records regulations: The Federal rules restrict any use of the information to criminally investigate or prosecute any alcohol or drug abuse patient.[facility] the event this information is protected by the Federal Confidentiality of Alcohol and Drug Abuse Patient Records regulations: The Federal rules restrict any use of the information to criminally investigate or prosecute any alcohol or drug abuse patient.[facility] the event this information is protected by the Federal Confidentiality of Alcohol and Drug Abuse Patient Records regulations: The Federal rules restrict any use of the information to criminally investigate or prosecute any alcohol or drug abuse patient.[facility] the event this information is protected by the Federal Confidentiality of Alcohol and Drug Abuse Patient Records regulations: The Federal rules restrict any use of the information to criminally investigate or prosecute any alcohol or drug abuse patient.[facility] the event this information is protected by the Federal Confidentiality of Alcohol and Drug Abuse Patient Records regulations: The Federal rules restrict any use of the information to criminally investigate or prosecute any alcohol or drug abuse patient.[facility] the event this information is protected by the Federal Confidentiality of Alcohol and Drug Abuse Patient Records regulations: The Federal rules restrict any use of the information to criminally investigate or prosecute any alcohol or drug abuse patient.[facility] HospitalIn the event this information is protected by the Federal Confidentiality of Alcohol and Drug Abuse Patient Records regulations: The Federal rules restrict any use of the information to criminally investigate or prosecute any alcohol or drug abuse patient.[facility] Hospital[facility] the event this information is protected by the Federal Confidentiality of Alcohol and Drug Abuse Patient Records regulations: The Federal rules restrict any use of the information to criminally investigate or prosecute any alcohol or drug abuse patient.[facility] FOR RECORDS PERTAINING TO PATIENTS [...] BE BASED ON THE PRIMARY CLINICAL RECORDS. [facility] [employer] [facility]. provides no warranty or guarantee of the accuracy or completeness of information in this document.
[2024-05-29] MEDS: IPRATROPIUM/ALBUTEROL SULFATE 3 ML AMPUL.NEB IH ×2 (19:35→23:16)
[2024-05-29] MEDS: 0.9 % SODIUM CHLORIDE 1,000 ML 75 ML IV (19:43)
[2024-05-29] MEDS: CEFTRIAXONE 1,000 MG in 0.9 % SODIUM CHLORIDE 50 ML 100 MG IV (19:43)
[2024-05-29] MEDS: METHYLPREDNISOLONE SOD SUCC PF 125 MG/2 ML VIAL 60 MG IVP (19:43)
[2024-05-29] MEDS: ONDANSETRON PF 4 MG/2 ML VIAL IV (20:49)
[2024-05-29] MEDS: AMITRIPTYLINE HCL 25 MG TABLET PO (21:20)
[2024-05-29] MEDS: OLANZapine 5 MG TABLET 12.5 MG PO (21:20)
[2024-05-29] MEDS: ALPRAZOLAM 0.25 MG TABLET PO (21:23)
[2024-05-29] MEDS: HYDROCODONE/ACET 5-325 MG TABLET 1 TAB PO (21:23)
[2024-05-29] MEDS: LAMOTRIGINE 100 MG TABLET 200 MG PO (21:24)
[2024-05-29] MEDS: MIRTAZAPINE 15 MG TABLET 7.5 MG PO (21:24)
[2024-05-29] MEDS: ENOXAPARIN SODIUM 40 MG/0.4 ML SYRINGE SUBQ (21:25)
[2024-05-30] VITALS (12 sets, daily range): BP systolic 97–130; BP diastolic 60–88; PULSE 98–126; TEMP 36.3–36.6; O2SAT 1–99
[2024-05-30] MEDS: METHYLPREDNISOLONE SOD SUCC PF 125 MG/2 ML VIAL 60 MG IVP ×4 (00:27→18:09)
[2024-05-30] MEDS: IPRATROPIUM/ALBUTEROL SULFATE 3 ML AMPUL.NEB IH ×5 (03:54→19:21)
[2024-05-30 06:21] LABS: Hematocrit 35.6 % (36.0-48.0); Mean Corpuscular HGB Conc 30.9 g/dL (29.9-35.2); Mean Corpuscular Volume 93.9 fL (81.0-99.0); Mean Platelet Volume 11.6 fL (9.5-13.5); Platelet Count 313 10^3/uL (150-450); Red Blood Count 3.79 10^6/uL (4.20-5.40); Red Cell Distribution Width 13.5 % (11.0-15.0); White Blood Count 7.2 10^3/uL (4.0-11.0)
[2024-05-30 06:25] LABS: Anion Gap 15.9; BUN Creatinine Ratio 5.8; Calcium 8.8 mg/dL (8.5-10.1); Carbon Dioxide 24.8 mmol/L (21.0-32.0); Chloride 105 mmol/L (98-107); Estimated GFR (African America >60 (>=60 mL/min/1.73m^2); Estimated GFR (Non-African Ame 55 (>=60 mL/min/1.73m^2); Glucose 219 mg/dL (74-106); Potassium 3.7 mmol/L (3.5-5.1); Sodium 142 mmol/L (136-145)
[2024-05-30 06:39] LABS: Lymphocytes Absolute Manual 0.57 10^3/uL (1.20-3.80); Monocytes Absolute Manual 0.14 10^3/uL (0.30-0.80); Segmented Neut Absolute Manual 6.48 10^3/uL (1.4-6.5)
--- NOTE | 2024-05-30 07:15 | RESP.RT ---
HR remained stable between 113-116 during breathing tx
--- NOTE | 2024-05-30 07:59 | PM.HP ---
HPI H&P: HPI History of Present Illness Chief complaint: DIZINESS SOB Narrative: 53-year-old female with history of COPD, bipolar depression presented to ER with 1 day history of progressively worsening shortness of breath, along with cough, chills, headache and dizziness. She was admitted to this hospital for respiratory failure and hypoxia 1 month ago. She was placed on oxygen by nasal cannula at discharge and has been using oxygen at nasal cannula at 5 L since that time. She arrived on 5 L in the ER and she has since been weaned to 4L. She continues to have falls at home and reports that she is concerned she may be developing dementia like her mom. Her memory is not what it once was per her. She has followed up with her pcp but has not established with a rail washer yet. She still admits to chest pain, worse from coughing only and is requesting pain medication at times. She denies fevers or chills. Her shortness of breath has improved since yesterday. She also has been falling and concerned about her safety at home with stairs. She does not drive anymore. She denies any Home Health after prior hospital stays. ER findings: She was given albuterol breathing treatment, IV fluids, Solu-Medrol in the ER. multifocal pneumonia noted on chest x-ray. Patient had a CT angio of the chest [address] of the brain and C-spine were performed due to dizziness and questionable fall yesterday. Blood cultures are pending. She was given IV Levaquin for coverage of multifocal pneumonia. Patient was given a 30 mg/kg bolus of IV fluids. Tylenol given for headache. She is negative for flu and COVID. WBC's 12, hb 11, Cr 1.19, Trop <4 Opioid HPI Opioid Management Most Recent Pain and Opioid Data: Last Pain Scale 0 05/30/24 09:31 05/30/24 Last Pain Assessment 05/30/24 09:31 Last MAR Pain Assessment 05/30/24 08:58 Last ORT Total Score 9 05/29/24 17:42 05/29/24 Last ORT Risk Category High Risk 05/29/24 17:42 05/29/24 Ur Phencyclidine Scrn Negative (NEGATIVE) 03/15/24 09:10 03/15/24 Review of Systems ROS Narrative ROS: a complete review of systems were reviewed with patient and are positive as below or listed in History of Chief Complaint. General: no fever, but chills, night sweats Head: headache, no trauma, visual changes, nausea or vomiting Skin: no reported rashes, itching or sores Eyes: no blurriness of vision Ears: no reported hearing loss, vertigo, earache, or tinnitus Throat: no sore throat, hoarseness, swelling of neck, or tongue pain Heart: no chest pain Lungs: shortness of breath and cough GI: no diarrhea or vomiting/nausea Urinary: no urinary urgency, frequency or pain Neuro: no numbness or tingling HEM: no bleeding issues or bruising ENDO: no thyroid problems Psych: anxiety and depression, memory issus [facility] Medical History Depression ?F32.A - Depression, unspecified (ICD-10) Bipolar 2 disorder ?F31.81 - Bipolar II disorder (ICD-10) Bipolar 1 disorder ?F31.9 - Bipolar disorder, unspecified (ICD-10) History of posttraumatic stress disorder (PTSD) ?Z86.59 - Personal history of other mental and behavioral disorders (ICD-10) Panic disorder ?F41.0 - Panic disorder [episodic paroxysmal anxiety] (ICD-10) COPD (chronic obstructive pulmonary disease) ?J44.9 - Chronic obstructive pulmonary disease, unspecified (ICD-10) Surgical History History of hysterectomy ?Z90.710 - Acquired absence of both cervix and uterus (ICD-10) History of cholecystectomy ?Z90.49 - Acquired absence of other specified parts of digestive tract (ICD-10) Hx of tonsillectomy ?Z90.89 - Acquired absence of other organs (ICD-10) History of appendectomy ?Z90.49 - Acquired absence of other specified parts of digestive tract (ICD-10) Family History Other Family history of CHF (congestive heart failure) Family history of COPD (chronic obstructive pulmonary disease) Family history of hypertension Social History Within the past year, how often did you have a drink containing alcohol: never Within the past year, how often did you have six or more drinks on one occasion: never Score interpretation: A score less than 3 is consistent with normal alcohol consumption. 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 Known occupational exposures/hazards: No Highest level of school completed/degree received: 11th grade Do you want help with school or training: No Are you now , , , , never or living with a partner: In a typical week, how many times do you talk on the telephone with family, friends, or neighbors: 3 or more times per week How often do you get together with friends or relatives: 3 or more times per week How often do you attend amish or anabaptism services: never Do you belong to any clubs or organizations such as amish groups unions, [employer] or athletic groups, or school groups: no Total score: 2 Score interpretation: A score of greater than or equal to 2 indicates the lowest level of social isolation. Little interest or pleasure in doing things: not at all Feeling down, depressed, or hopeless: not at all Feel stressed/tense/nervous/anxious/difficulty sleeping: not at all Do you think of yourself as: straight/heterosexual Gender Identity: female Meds Home Medications and Allergies Home Medications ?Medication ?Instructions ?Recorded ?Confirmed ?Type lamotrigine 200 mg tablet 200 mg PO .qhs 03/15/24 05/29/24 History mirtazapine 7.5 mg tablet 7.5 mg PO BEDTIME 03/15/24 05/29/24 History omeprazole 20 mg capsule,delayed 20 mg PO DAILY 03/15/24 05/29/24 History release alprazolam 0.25 mg tablet 0.25 mg PO BID 05/05/24 05/29/24 History amitriptyline 25 mg tablet 25 mg PO BEDTIME 05/05/24 05/29/24 History olanzapine 10 mg tablet 10 mg PO .QHS 05/05/24 05/29/24 History olanzapine 2.5 mg tablet 2.5 mg PO .qhs 05/05/24 05/29/24 History tiotropium bromide 2.5 2 puff inhalation DAILY 05/05/24 05/29/24 History mcg/actuation mist for inhalation (Spiriva Respimat) albuterol sulfate 90 mcg/actuation 2 inh inhalation Q6H PRN shortness 05/08/24 05/29/24 Rx aerosol inhaler (Ventolin HFA) of breath or wheezing #6.7 grams ondansetron 4 mg disintegrating 4 mg PO Q6H PRN nausea and 05/08/24 05/29/24 Rx tablet vomiting 4 days #10 tabs prednisone 20 mg tablet 20 mg PO DAILY #20 tabs 05/08/24 05/29/24 Rx methocarbamol 750 mg tablet 750 mg PO Q6H PRN pain #30 tabs 05/17/24 05/29/24 Rx Allergies Allergy/AdvReac Type Severity Reaction Status Date / Time No Known Drug Allergies Allergy Verified 05/29/24 14:32 Exam Narrative Exam Narrative: General: Patient is alert, and oriented to person, place and time with normal affect, proper hygiene, some shortness of breath with conversing Skin: no visible rashes, or ulcers Head: atraumatic, acephalic Eyes: PERRLA, no nystagmus present, conjunctiva clear, no scleral icterus Ears: normal gross auditory acuity Neck: no masses palpated Heart: Normal rate and rhythm, no murmurs/rubs/gallops Lungs: audible wheezes right side with some diminished breath sounds at bases Abdomen: Normal audible bowel sounds, no distension, No palpable masses, no organomegaly, no rebound/guarding/ or rigidity Musculoskeletal: no swelling bilateral lower extremities Neuro: CN II-X grossly intact Constitutional Vital Signs, click to edit/add: Last Vital Signs Temp 97.4 F L 05/30/24 03:52 Pulse 102 H 05/30/24 03:54 Resp 116 H 05/30/24 07:10 BP 128/88 05/30/24 03:52 Pulse Ox 97 05/30/24 07:10 O2 Del Method Nasal Cannula 05/30/24 07:10 O2 Flow Rate 5 05/30/24 07:10 Results Labs Labs: Short CBC 05/29/24 05/30/24 Range/Units 15:10 05:39 WBC 12.0 H 7.2 (4.0-11.0) 10^3/uL Hgb 10.8 L 11.0 L (12.0-16.0) g/dL Hct 33.6 L 35.6 L (36.0-48.0) % Plt Count 326 313 (150-450) 10^3/uL BMP 05/29/24 05/30/24 15:05 05:39 Sodium 137 142 Potassium 3.2 L 3.7 Chloride 99 105 Carbon Dioxide 32.0 24.8 BUN 5.0 L 6.0 L Creatinine 1.19 H 1.04 H Glucose 104 219 H Calcium 9.0 8.8 Liver Function 05/29/24 Range/Units 15:05 Total Bilirubin 0.6 (0.2-1.0) mg/dL AST 14 L (15-37) U/L ALT 20 (14-59) U/L Alkaline Phosphatase 82 (46-116) U/L Albumin 2.8 L (3.4-5.0) g/dL ABG ABG results: 05/29/24 15:05 VBG pH 7.413 VBG pCO2 48.2 Assessment and Plan Assessment and Plan (1) Multifocal pneumonia: Assessment and Plan: continue rocephin and Levaquin. WBC's normal at 7.0. Continue nebs, add pulmicort and OPEP today. Continue Solumedrol 40mg q6 hours. (2) Acute and chronic respiratory failure with hypoxia: Assessment and Plan: Patient has been on using 5L at home and that is what she is on here. Monitor and wean down as tolerated (3) COPD (chronic obstructive pulmonary disease): Assessment and Plan: continue to treat #1 Qualifiers: COPD type: chronic bronchitis Chronic bronchitis type: unspecified Qualified Code(s): J42 - Unspecified chronic bronchitis (4) Bipolar 1 disorder: Assessment and Plan: resume home medications (5) Depression: Assessment and Plan: resume home medications Qualifiers: Depression Type: unspecified Qualified Code(s): F32.A - Depression, unspecified (6) History of posttraumatic stress disorder (PTSD): Assessment and Plan: resume home medications (7) Frequent falls: Assessment and Plan: Will get PT/OT evaluation May benefit from pulmonary rehab vs Home Health Services vs Skilled Plan Patient is a full code Continue Lovenox for DVT prophylaxis Patient is inpatient status and is expected to stay 2-3 days given the severity of her COPD with chronic hypoxia and new findings of multifocal pneumonia.
[2024-05-30] MEDS: 0.9 % SODIUM CHLORIDE 1,000 ML 75 ML IV (08:58)
[2024-05-30] MEDS: HYDROCODONE/ACET 5-325 MG TABLET 1 TAB PO ×2 (08:58→16:28)
[2024-05-30] MEDS: OMEPRAZOLE 20 MG CAPSULE.DR PO (08:58)
[2024-05-30] MEDS: ONDANSETRON PF 4 MG/2 ML VIAL IV ×3 (08:58→21:09)
[2024-05-30] MEDS: BUDESONIDE 0.5 MG/2 ML AMPULE NEB IH (11:13)
--- NOTE | 2024-05-30 11:17 | RESP.RT ---
Addendum entered by Kiarra Logan, LITH[employer]GRAPHERS PRINTER 05/30/24 11:21: Heart rate remained below 123 during treatment Original Note: Titrated down to 2lpm
[2024-05-30] MEDS: ALPRAZOLAM 0.25 MG TABLET PO ×2 (13:08→18:09)
[2024-05-30] MEDS: PROMETHAZINE HCL/CODEINE 6.25 MG-10 MG/5 ML SYRUP 5 MG PO (14:28)
--- NOTE | 2024-05-30 15:45 | RESP.RT ---
Titrated down to 1lpm
[2024-05-30] MEDS: LEVOFLOXACIN IN DEXTROSE 5 % 750 MG/150 ML PREMIX 100 MG IV (16:27)
[2024-05-30] MEDS: CEFTRIAXONE 1,000 MG in 0.9 % SODIUM CHLORIDE 50 ML 100 MG IV (20:00)
[2024-05-30] MEDS: LAMOTRIGINE 100 MG TABLET 200 MG PO (21:08)
[2024-05-30] MEDS: ENOXAPARIN SODIUM 40 MG/0.4 ML SYRINGE SUBQ (21:08)
[2024-05-30] MEDS: MIRTAZAPINE 15 MG TABLET 7.5 MG PO (21:08)
[2024-05-30] MEDS: OLANZapine 5 MG TABLET 12.5 MG PO (21:08)
[2024-05-30] MEDS: AMITRIPTYLINE HCL 25 MG TABLET PO (21:08)
[2024-05-31] VITALS (13 sets, daily range): BP systolic 102–129; BP diastolic 68–80; PULSE 89–117; TEMP 36.3–36.7; O2SAT 90–96
[2024-05-31] MEDS: METHYLPREDNISOLONE SOD SUCC PF 125 MG/2 ML VIAL 60 MG IVP ×4 (00:17→18:39)
[2024-05-31 06:01] LABS: Basophils Percent Auto 0.1 % (0.2-2.0); Eosinophils Percent Auto 0.1 % (0.9-7.0); Hematocrit 32.4 % (36.0-48.0); Hemoglobin 10.3 g/dL (12.0-16.0); Immature Granulocytes Abs Auto 0.23 10^3/uL (0.00-0.03); Immature Granulocytes Pct Auto 1.3 % (0.0-0.5); Lymphocytes Absolute Auto 0.9 10^3/uL (1.2-3.8); Lymphocytes Percent Auto 5.2 % (20.5-60.0); Mean Corpuscular HGB Conc 31.8 g/dL (29.9-35.2); Mean Corpuscular Hemoglobin 29.1 pg (26.7-34.0); Mean Corpuscular Volume 91.5 fL (81.0-99.0); Mean Platelet Volume 11.6 fL (9.5-13.5); Monocytes Absolute Auto 0.6 10^3/uL (0.3-0.8); Monocytes Percent Auto 3.4 % (1.7-12.0); Neutrophils Absolute Auto 15.7 10^3/uL (1.4-6.5); Neutrophils Percent Auto 89.9 % (43.0-75.0); Platelet Count 331 10^3/uL (150-450); Red Blood Count 3.54 10^6/uL (4.20-5.40); Red Cell Distribution Width 13.9 % (11.0-15.0); White Blood Count 17.5 10^3/uL (4.0-11.0)
[2024-05-31 06:11] LABS: Anion Gap 10.6; BUN Creatinine Ratio 11.7; Calcium 8.8 mg/dL (8.5-10.1); Carbon Dioxide 28.3 mmol/L (21.0-32.0); Chloride 108 mmol/L (98-107); Estimated GFR (African America >60 (>=60 mL/min/1.73m^2); Estimated GFR (Non-African Ame >60 (>=60 mL/min/1.73m^2); Glucose 134 mg/dL (74-106); Potassium 3.9 mmol/L (3.5-5.1); Sodium 143 mmol/L (136-145)
[2024-05-31] MEDS: IPRATROPIUM/ALBUTEROL SULFATE 3 ML AMPUL.NEB IH ×4 (07:50→22:10)
--- NOTE | 2024-05-31 07:59 | PM.PN ---
Progress Note: Subjective Subjective Interval history: Patient continues to improve respiratory maravilla. Now requiring only 1-2 L of NC oxygen. She still reports weakness when she is up and tries to walk and some chest pain with coughing, also constipation. Patient has been afebrile. Shortness of breath has improved. Vitals stable. Exam Narrative Exam Narrative: General: Patient is alert, and oriented to person, place and time with normal affect, proper hygiene, some shortness of breath with conversing but much better today Skin: no visible rashes, or ulcers Head: atraumatic, acephalic Eyes: PERRLA, no nystagmus present, conjunctiva clear, no scleral icterus Ears: normal gross auditory acuity Neck: no masses palpated Heart: Normal rate and rhythm, no murmurs/rubs/gallops Lungs: audible wheezes right side with some diminished breath sounds at bases Abdomen: Normal audible bowel sounds, no distension, No palpable masses, no organomegaly, no rebound/guarding/ or rigidity Musculoskeletal: no swelling bilateral lower extremities Neuro: CN II-X grossly intact Constitutional Vital Signs, click to edit/add: Last Vital Signs Temp 98.0 F 05/31/24 07:40 Pulse 112 H 05/31/24 07:40 Resp 18 05/31/24 07:40 BP 102/68 05/31/24 07:40 Pulse Ox 94 L 05/31/24 07:40 O2 Del Method Nasal Cannula 05/31/24 07:40 O2 Flow Rate 1 05/31/24 07:40 Progress Note: Objective Labs Labs: Short CBC 05/31/24 Range/Units 05:45 WBC 17.5 H (4.0-11.0) 10^3/uL Hgb 10.3 L (12.0-16.0) g/dL Hct 32.4 L (36.0-48.0) % Plt Count 331 (150-450) 10^3/uL BMP 05/31/24 05:45 Sodium 143 Potassium 3.9 Chloride 108 H Carbon Dioxide 28.3 BUN 9.0 Creatinine 0.77 Glucose 134 H Calcium 8.8 Progress Note: A&P Assessment and Plan (1) Multifocal pneumonia: Assessment and Plan: continue rocephin and Levaquin. WBC's elevated today due to steroids at 17.5. Continue nebs, pulmicort and OPEP. Continue Solumedrol 40mg q6 hours. (2) Acute and chronic respiratory failure with hypoxia: Assessment and Plan: Patient has been on using 5L at home and now down to 1-2 L. Monitor and wean down as tolerated (3) COPD (chronic obstructive pulmonary disease): Assessment and Plan: continue to treat #1 Qualifiers: COPD type: chronic bronchitis Chronic bronchitis type: unspecified Qualified Code(s): J42 - Unspecified chronic bronchitis (4) Bipolar 1 disorder: Assessment and Plan: resume home medications (5) Depression: Assessment and Plan: resume home medications Qualifiers: Depression Type: unspecified Qualified Code(s): F32.A - Depression, unspecified (6) History of posttraumatic stress disorder (PTSD): Assessment and Plan: resume home medications (7) Frequent falls: Assessment and Plan: Will get PT/OT evaluation May benefit from pulmonary rehab vs Home Health Services vs Skilled (8) Constipation by delayed colonic transit: Assessment and Plan: stop promethazine/codeine and baclofen. Start Miralax and Colace scheduled. Plan Patient is a full code Continue Lovenox for DVT prophylaxis
[2024-05-31] MEDS: ALPRAZOLAM 0.25 MG TABLET PO ×2 (08:45→19:44)
[2024-05-31] MEDS: HYDROCODONE/ACET 5-325 MG TABLET 1 TAB PO (08:45)
[2024-05-31] MEDS: OMEPRAZOLE 20 MG CAPSULE.DR PO (08:45)
[2024-05-31] MEDS: BENZONATATE 100 MG CAPSULE 200 MG PO (10:38)
[2024-05-31] MEDS: POLYETHYLENE GLYCOL 3350 17 GM POWDER PACKET PO (10:38)
[2024-05-31] MEDS: BUDESONIDE 0.5 MG/2 ML AMPULE NEB IH ×2 (11:25→22:10)
[2024-05-31] MEDS: LEVOFLOXACIN IN DEXTROSE 5 % 750 MG/150 ML PREMIX 100 MG IV (17:04)
[2024-05-31] MEDS: CEFTRIAXONE 1,000 MG in 0.9 % SODIUM CHLORIDE 50 ML 100 MG IV (19:44)
[2024-05-31] MEDS: DOCUSATE SODIUM 100 MG CAPSULE 200 MG PO (21:13)
[2024-05-31] MEDS: ENOXAPARIN SODIUM 40 MG/0.4 ML SYRINGE SUBQ (21:14)
[2024-05-31] MEDS: OLANZapine 5 MG TABLET 12.5 MG PO (21:14)
[2024-05-31] MEDS: LAMOTRIGINE 100 MG TABLET 200 MG PO (21:14)
[2024-05-31] MEDS: MIRTAZAPINE 15 MG TABLET 7.5 MG PO (21:14)
[2024-05-31] MEDS: AMITRIPTYLINE HCL 25 MG TABLET PO (21:14)
[2024-06-01] VITALS (8 sets, daily range): BP systolic 128–138; BP diastolic 79–87; PULSE 90–106; TEMP 36.2–36.6; O2SAT 92–96
[2024-06-01] MEDS: ALPRAZOLAM 0.25 MG TABLET PO ×2 (00:17→08:17)
[2024-06-01] MEDS: METHYLPREDNISOLONE SOD SUCC PF 125 MG/2 ML VIAL 60 MG IVP ×2 (00:17→06:08)
[2024-06-01] MEDS: HYDROCODONE/ACET 5-325 MG TABLET 1 TAB PO ×2 (04:33→08:17)
[2024-06-01] MEDS: BENZONATATE 100 MG CAPSULE 200 MG PO (04:33)
[2024-06-01] MEDS: IPRATROPIUM/ALBUTEROL SULFATE 3 ML AMPUL.NEB IH ×2 (04:43→11:14)
[2024-06-01 06:11] LABS: Basophils Percent Auto 0.2 % (0.2-2.0); Eosinophils Percent Auto 0.1 % (0.9-7.0); Hematocrit 34.5 % (36.0-48.0); Immature Granulocytes Abs Auto 0.33 10^3/uL (0.00-0.03); Lymphocytes Absolute Auto 0.9 10^3/uL (1.2-3.8); Lymphocytes Percent Auto 5.4 % (20.5-60.0); Mean Corpuscular HGB Conc 31.9 g/dL (29.9-35.2); Mean Corpuscular Hemoglobin 29.3 pg (26.7-34.0); Mean Platelet Volume 11.3 fL (9.5-13.5); Monocytes Absolute Auto 0.4 10^3/uL (0.3-0.8); Monocytes Percent Auto 2.4 % (1.7-12.0); Neutrophils Absolute Auto 15.2 10^3/uL (1.4-6.5); Neutrophils Percent Auto 89.9 % (43.0-75.0); Platelet Count 400 10^3/uL (150-450); Red Blood Count 3.75 10^6/uL (4.20-5.40); Red Cell Distribution Width 14.1 % (11.0-15.0); White Blood Count 16.9 10^3/uL (4.0-11.0)
[2024-06-01 06:21] LABS: Anion Gap 12.5; BUN Creatinine Ratio 11.9; Calcium 8.9 mg/dL (8.5-10.1); Carbon Dioxide 28.3 mmol/L (21.0-32.0); Chloride 105 mmol/L (98-107); Estimated GFR (African America >60 (>=60 mL/min/1.73m^2); Estimated GFR (Non-African Ame 57 (>=60 mL/min/1.73m^2); Glucose 149 mg/dL (74-106); Potassium 3.8 mmol/L (3.5-5.1); Sodium 142 mmol/L (136-145)
--- NOTE | 2024-06-01 08:10 | P.DS_ITS ---
DS: Providers Provider Date of admission: 05/29/24 17:15 Primary care physician: ROQUE MORALES Attending physician on admission: Raúl Nolan Consults: 05/30/24 Occupational Therapy Eval and Treat Routine Reason for consultation: weakness, falls. Has provider been notified: Yes Physical Therapy Eval and Treat Routine Reason for consultation: weakness and falls Has provider been notified: Yes Physical Therapy Eval and Treat Routine Reason for consultation: weakness, falls Has provider been notified: Yes Discharging clinician: Candace Norman DS: Diagnosis Discharge Diagnosis (1) Multifocal pneumonia: (2) Acute and chronic respiratory failure with hypoxia: (3) COPD (chronic obstructive pulmonary disease): Qualifiers: COPD type: chronic bronchitis Chronic bronchitis type: unspecified Qualified Code(s): J42 - Unspecified chronic bronchitis (4) Bipolar 1 disorder: (5) Depression: Qualifiers: Depression Type: unspecified Qualified Code(s): F32.A - Depression, unspecified (6) History of posttraumatic stress disorder (PTSD): (7) Frequent falls: (8) Constipation by delayed colonic transit: DS: Summary Hospital Course Hospital Course: 53-year-old female with history of COPD, bipolar depression presented to ER on 05/29/24 with 1 day history of progressively worsening shortness of breath, along with cough, chills, headache and dizziness. She was admitted to this hospital for respiratory failure and hypoxia 1 month ago. She was placed on oxygen by nasal cannula at discharge and has been using oxygen at nasal cannula at 5 L since that time. She arrived on 5 L in the ER and she has since been weaned to 4L. ER findings: She was given albuterol breathing treatment, IV fluids, Solu- Medrol in the ER. multifocal pneumonia noted on chest x-ray. Patient had a CT angio of the chest [address] of the brain and C-spine were performed due to dizziness and questionable fall and were negative. Blood cultures negative. She was given IV Levaquin for coverage of multifocal pneumonia and rocephin. Patient was given a 30 mg/kg bolus of IV fluids. Tylenol given for headache. She is negative for flu and COVID. Patient recovered well on IV levaquin and rocephin. She will be discharged on Levaquin 750mg PO daily x 5 days, Prednisone 40mg daily x 7 days. I have started her on Breo, She has a nebulizer machine, so duonebs also sent in to use as needed. She is down to 1L via NC oxygen continuous. She has appointment with [facility] to establish care in the next few weeks. She will go home with Home health as she does not drive and would benefit from rehab. She will be a great candidate for pulmonary rehab in the future. She may return to the ER with any worsening symptoms. She has close follow up with her PCP and psychiatrist. Labs and Vitals are stable. Status at Discharge Functional status at discharge: uses cane/walker Overall status at discharge: patient is progressing back to baseline Time Spent with Patient Time attestation: Total time spent providing and/or coordinating discharge services: Time spent: greater than 30 minutes Exam Narrative Exam Narrative: General: Patient is alert, and oriented to person, place and time with normal affect, proper hygiene Skin: no visible rashes, or ulcers Head: atraumatic, acephalic Eyes: PERRLA, no nystagmus present, conjunctiva clear, no scleral icterus Ears: normal gross auditory acuity Heart: Normal rate and rhythm, no murmurs/rubs/gallops Lungs: no audible wheezes, crackles and normal breath sounds all lung moser Abdomen: Normal audible bowel sounds, no distension, No palpable masses, no organomegaly, no rebound/guarding/ or rigidity Musculoskeletal: no swelling bilateral lower extremities Neuro: CN II-X grossly intact Constitutional Vital Signs, click to edit/add: Last Vital Signs Temp 97.5 F L 06/01/24 06:30 Pulse 99 H 06/01/24 06:30 Resp 18 06/01/24 06:30 BP 128/81 06/01/24 06:30 Pulse Ox 94 L 06/01/24 06:30 O2 Del Method Nasal Cannula 06/01/24 06:30 O2 Flow Rate 1 06/01/24 06:30 DS: Data Data Completed and Pending Labs on day of discharge: Labs from last 24 hours 06/01/24 05:50 WBC 16.9 H RBC 3.75 L Hgb 11.0 L Hct 34.5 L MCV 92.0 MCH 29.3 MCHC 31.9 RDW 14.1 Plt Count 400 MPV 11.3 Neut % (Auto) 89.9 H Lymph % (Auto) 5.4 L Williamson % (Auto) 2.4 Eos % (Auto) 0.1 L Baso % (Auto) 0.2 Neut # (Auto) 15.2 H Lymph # (Auto) 0.9 L Williamson # (Auto) 0.4 Eos # (Auto) 0.0 Baso # (Auto) 0.0 Abs Immat Gran (auto) 0.33 H Imm/Tot Granulo (auto) 2.0 H Sodium 142 Potassium 3.8 Chloride 105 Carbon Dioxide 28.3 Anion Gap 12.5 BUN 12.0 Creatinine 1.01 Est GFR ( Amer) >60 Est GFR (Non-Af Amer) 57 L BUN/Creatinine Ratio 11.9 Glucose 149 H Calcium 8.9 Preliminary micro results at discharge 05/29/24 15:10 Blood Culture Result 1 - Preliminary Blood NO GROWTH AT 36-48 HOURS. FINAL TO FOLLOW. 05/29/24 15:05 Blood Culture Result 2 - Preliminary Blood NO GROWTH AT 36-48 HOURS. FINAL TO FOLLOW. Discharge Plan Discharge Disposition: Home Health Service Discharge Medications: New ipratropium-albuterol 0.5 mg-3 mg(2.5 mg base)/3 mL Solution For Nebulization 3 ml inhalation Q6H PRN (Reason: shortness of breath or wheezing) 30 Days Qty: 180 0RF Rx Instructions: please dispense #1 box prednisone 20 mg Tablet 40 mg PO QD 7 Days Qty: 14 0RF levofloxacin 750 mg Tablet 750 mg PO QD 5 Days Qty: 5 0RF fluticasone furoate-vilanterol [Breo Ellipta] 100-25 mcg/dose blister with device 1 inh inhalation DAILY 30 Days Qty: 60 0RF Continued lamotrigine 200 mg tablet 200 mg PO .qhs omeprazole 20 mg capsule,delayed release(DR/EC) 20 mg PO DAILY mirtazapine 7.5 mg tablet 7.5 mg PO BEDTIME methocarbamol 750 mg tablet 750 mg PO Q6H PRN (Reason: pain) Qty: 30 0RF alprazolam 0.25 mg tablet 0.25 mg PO BID amitriptyline 25 mg tablet 25 mg PO BEDTIME olanzapine 2.5 mg tablet 2.5 mg PO .qhs Spiriva Respimat 2.5 mcg/actuation mist 2 puff INHALATION DAILY olanzapine 10 mg tablet 10 mg PO .QHS ondansetron 4 mg tablet,disintegrating 4 mg PO Q6H PRN (Reason: nausea and vomiting) 4 Days Qty: 10 0RF albuterol sulfate [Ventolin HFA] 90 mcg/actuation HFA aerosol inhaler 2 inh inhalation Q6H PRN (Reason: shortness of breath or wheezing) Qty: 6.7 0RF Discontinued prednisone 20 mg tablet 20 mg PO DAILY Qty: 20 0RF Rx Instructions: 3 tab x 3 days, 2 tabs x 3 days, 1 tab x 3 days. 1/2 tab x 4 days Activity: increase activity as tolerated and wear oxygen at all times Activity Detail: 1 L via NC continuous Diet: advance to your usual diet Print Language: German Forms: Portal Instructions Follow Up Appointments: SatJune 03 @ 1040 with Roque Morales [address] [place] [address] Discharge location: Home with Home health Services
[2024-06-01] MEDS: POLYETHYLENE GLYCOL 3350 17 GM POWDER PACKET PO (08:17)
[2024-06-01] MEDS: OMEPRAZOLE 20 MG CAPSULE.DR PO (08:18)
[2024-06-01] MEDS: ONDANSETRON PF 4 MG/2 ML VIAL IV (08:18)
[2024-06-01] MEDS: LEVOFLOXACIN 750 MG TABLET PO (08:20)
[2024-06-01] MEDS: PREDNISONE 20 MG TABLET 40 MG PO (08:20)
--- NOTE | 2024-06-01 09:15 | CM.NOTE ---
Rounds made with Dr. Norman, discussed with pt discharge planning. Pt initially wanted to go to [facility], [facility] does not take pt's insurance. Pt then voices she would rather go home with HH services. Pt does have good family support, SW updated and will set pt up with HH services.
--- NOTE | 2024-06-01 10:38 | REH.PTDLY ---
Physical Therapy Daily Note PT Daily Note/Assess Start: 06/01/24 10:26 Freq: Status: Active Protocol: Document 06/01/24 10:26 MARY ELLEN (Rec: 06/01/24 10:38 MARY ELLEN [id number]) Physical Therapy Daily Note/Assessment Time In 09:55 Time Out 10:10 Subjective Pt agreeable to therapy, pt reports just feels weak and shaky. Now on 1.5-2L of O2. Therapeutic Exercise 5 Minutes (minutes) Therapeutic Exercise 0 Units Therapeutic Exercise Instructed in B LE supine exs with SLR, QS, hip abd, Treatment and heel slides 5x2 ea leg with pt becoming shaky at 5 reps and needs to take break or switch to other leg to recover. Therapeutic Activity 9 Minutes (minutes) Therapeutic Activity 1 Units Therapeutic Activity Ind with supine to and from sit transfers. Sit to stand Comments transfers SBA. With 2L of O2, pt ambulated with no AD, but intermittent use of HR in hallway CGA. Pt needs to stop and take standing rest break after 60 feet due to fatigue, cues for pt to focus on her breathing to avoid shortness of breath. Pt ambulated another 30 feet needing to stop again and rest, followed by another 30 feet into room with seated rest break. SpO2 at 93% pre and post gait. Total Therapy 14 Minutes Total Physical 1 Therapy Units Daily Note Summary Pt held steady at 93% SpO2 on 2L of O2 during rx. Progressed gait distance today with fatigue noted and pt needing to stop and take several standing rest breaks due to weakness, utilizes handrail in hallway when available. Pt becomes very shaky with supine LE exs, needing to stop and take rest break after 5 reps. Educated pt to perform supine B LE exs throughout the day to gain strength due to weakness. As well as promoted sitting up in chair for all meals. Pt agreeable to [facility] [place] as she wants to be able to figure out what is wrong with her and become stronger as she feels like she has been in and out of the hospital too much per her report.
[2024-06-01] MEDS: DOCUSATE SODIUM 100 MG CAPSULE 200 MG PO (10:41)
--- NOTE | 2024-06-01 10:45 | SWNOTE1 ---
Pt had originally wanted [facility] for rehab, but [facility] does not take her insurance. SW received a message from case management asking about home health. SW thinks [facility] and [facility] still accepting [employer]. SW called [facility] and it is case by case and will need to review. Referral sent to [address] Referral included face sheet, ED note, H&P, provider notes, case management report, and PT notes. Referral sent to [facility]. Referral included face sheet, ED note, H&P, provider notes, case management report,and PT notes.
--- NOTE | 2024-06-01 12:39 | SWNOTE1 ---
NELLIE called [facility] and they are not able to accept. NELLIE aked why and she voiced due to staffing and the insurance. NELLIE did express that there is only 1 other HH company that even looks at Medicaid. She stated she will check with her [facility]. She put SW on hold and came back and stated there [facility] has still voiced they are not able to accept. referral still out to [facility].
--- NOTE | 2024-06-01 12:45 | SWNOTE1 ---
NELLIE called [facility] and they are not taking [facility] Medicaid.
--- NOTE | 2024-06-01 14:24 | CM.NOTE ---
Addendum entered by Yi Min 06/01/24 14:32: [facility] Both companies unable to take pt d/t staffing. Original Note: [facility] called and are unable to accept pt d/t low staffing, unable to accommodate.
--- NOTE | 2024-06-01 14:35 | CM.NOTE ---
Called [facility] and [facility], neither accept [employer].
--- NOTE | 2024-06-01 15:01 | CM.NOTE ---
Talked with pt, RN, and Dr. Norman regarding calls made to HH facilities and unable to get an accepting HH. Pt verbalizes she would still like to discharge to home today. Pt does have f/u appt with Pulmonology and PCP. Discussed with pt importance of f/u appointments and preventative care. Talked with pt about importance of pulmonary rehab and need to get Pulmonary function test. Went over Pulmonary Rehab pamphlet with pt. Pt verbalizes understanding.
== END 2024-06-01 16:32 | disposition home or self-care (01) | DRG 139 ==
LOC: ER 17:00 → MS 17:36
PROVIDERS: Family Medicine; Physician Assistant; Admitting Provider Family Medicine; Emergency Provider Emergency Medicine; PCP Nurse Practitioner; Visit Provider Family Medicine
DX: J18.9 Pneumonia, unspecified organism (principal); J96.21 Acute and chronic respiratory failure with hypoxia; J44.0 Chronic obstructive pulmonary disease with (acute) lower respiratory infection; F43.10 Post-traumatic stress disorder, unspecified; K59.00 Constipation, unspecified; Z87.891 Personal history of nicotine dependence; R29.6 Repeated falls; F31.9 Bipolar disorder, unspecified; Z79.899 Other long term (current) drug therapy
CPT/HCPCS: 36415; 70450; 71045; 72125; 80048; 80053; 81001; 82800; 83605; 83735; 83880; 84484; 85007; 85025; 85027; 85610; 87040; 87804; 87811; 93005; 94640; 94667; 94668; 94761; 96361; 96365; 96375; 97161; 97165; 97530; 99285; J0696; J1650; J2405; J2919; J7512

== ENCOUNTER 2024-08-31 09:37 | Emergency (ER) | payer OTHER, SELFPAY ==
[2024-08-31 09:44] VITALS: BP 100/80; PULSE 104; TEMP 36.7; O2SAT 97; BMI 22.1
--- NOTE | 2024-08-31 09:54 | ED.GENADUL1 ---
HPI HPI - General Adult General Chief complaint: Extremity Injury, Lower Stated complaint: FALL LOWER EXTREMITY PAIN Time Seen by Provider: 08/31/24 09:50 Source: patient Mode of arrival: walk-in History of Present Illness HPI narrative: 53-year-old female presents to the emergency department for pain to her right knee. Shortly before coming into the emergency department she tripped going up some stairs while she was holding some groceries. She fell forward and hit both of her knees. The left knee does not hurt. Her right knee is painful, moderate to severe and she is complaining of pain mostly of the area just inferior to the patella. No other injury was sustained, she did not hit her head. It hurts more to bend it. Related Data Home Medications ?Medication ?Instructions ?Recorded ?Confirmed lamotrigine 200 mg tablet 200 mg PO .qhs 03/15/24 05/29/24 mirtazapine 7.5 mg tablet 7.5 mg PO BEDTIME 03/15/24 05/29/24 omeprazole 20 mg capsule,delayed 20 mg PO DAILY 03/15/24 05/29/24 release alprazolam 0.25 mg tablet 0.25 mg PO BID 05/05/24 05/29/24 amitriptyline 25 mg tablet 25 mg PO BEDTIME 05/05/24 05/29/24 olanzapine 10 mg tablet 10 mg PO .QHS 05/05/24 05/29/24 olanzapine 2.5 mg tablet 2.5 mg PO .qhs 05/05/24 05/29/24 tiotropium bromide 2.5 2 puff inhalation DAILY 05/05/24 05/29/24 mcg/actuation mist for inhalation (Spiriva Respimat) Previous Rx's ?Medication ?Instructions ?Recorded albuterol sulfate 90 mcg/actuation 2 inh inhalation Q6H PRN shortness 05/08/24 aerosol inhaler (Ventolin HFA) of breath or wheezing #6.7 grams ondansetron 4 mg disintegrating 4 mg PO Q6H PRN nausea and 05/08/24 tablet vomiting 4 days #10 tabs methocarbamol 750 mg tablet 750 mg PO Q6H PRN pain #30 tabs 05/17/24 fluticasone furoate 100 1 inh inhalation DAILY 30 days #60 06/01/24 mcg-vilanterol 25 mcg/dose ea inhalation powder (Breo Ellipta) ipratropium 0.5 mg-albuterol 3 mg 3 ml inhalation Q6H PRN shortness 06/01/24 (2.5 mg base)/3 mL nebulization of breath or wheezing 30 days #180 soln mL levofloxacin 750 mg tablet 750 mg PO QD 5 days #5 tabs 06/01/24 prednisone 20 mg tablet 40 mg (2 x 20 mg) PO QD 7 days #14 06/01/24 tabs ibuprofen 800 mg tablet 800 mg PO Q8H PRN pain #20 tabs 08/31/24 Allergies Allergy/AdvReac Type Severity Reaction Status Date / Time No Known Drug Allergies Allergy Verified 08/31/24 09:44 Opioid HPI Opioid Management Most Recent Opioid Data: Last Pain Scale 8 Today, 09:45 Last ORT Total Score 9 05/29/24, 17:42 Last ORT Risk Category High Risk 05/29/24, 17:42 Ur Phencyclidine Scrn, (NEGATIVE) Negative 03/15/24, 09:10 Review of Systems ROS Narrative A ten point review of systems is negative except as noted above. [facility] Medical History Depression ?F32.A - Depression, unspecified (ICD-10) Bipolar 2 disorder ?F31.81 - Bipolar II disorder (ICD-10) Bipolar 1 disorder ?F31.9 - Bipolar disorder, unspecified (ICD-10) History of posttraumatic stress disorder (PTSD) ?Z86.59 - Personal history of other mental and behavioral disorders (ICD-10) Panic disorder ?F41.0 - Panic disorder [episodic paroxysmal anxiety] (ICD-10) COPD (chronic obstructive pulmonary disease) ?J44.9 - Chronic obstructive pulmonary disease, unspecified (ICD-10) Surgical History History of hysterectomy ?Z90.710 - Acquired absence of both cervix and uterus (ICD-10) History of cholecystectomy ?Z90.49 - Acquired absence of other specified parts of digestive tract (ICD-10) Hx of tonsillectomy ?Z90.89 - Acquired absence of other organs (ICD-10) History of appendectomy ?Z90.49 - Acquired absence of other specified parts of digestive tract (ICD-10) Family History Other Family history of CHF (congestive heart failure) Family history of COPD (chronic obstructive pulmonary disease) Family history of hypertension Social History Within the past year, how often did you have a drink containing alcohol: never Within the past year, how often did you have six or more drinks on one occasion: never Score interpretation: A score less than 3 is consistent with normal alcohol consumption. 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 Known occupational exposures/hazards: No Highest level of school completed/degree received: 11th grade Do you want help with school or training: No Are you now , , , , never or living with a partner: In a typical week, how many times do you talk on the telephone with family, friends, or neighbors: 3 or more times per week How often do you get together with friends or relatives: 3 or more times per week How often do you attend yarsanism or adventism services: never Do you belong to any clubs or organizations such as yarsanism groups unions, fraternal or athletic groups, or school groups: no Total score: 2 Score interpretation: A score of greater than or equal to 2 indicates the lowest level of social isolation. Little interest or pleasure in doing things: not at all Feeling down, depressed, or hopeless: not at all Feel stressed/tense/nervous/anxious/difficulty sleeping: not at all Do you think of yourself as: straight/heterosexual Gender Identity: female Exam Narrative Exam Narrative: Nurses note and vital signs reviewed and patient is not hypoxic. General: The patient appears well and in no apparent distress. Patient is resting comfortably on cart. Skin: Warm, dry, no pallor noted. There is no rash noted. Head: Normocephalic, atraumatic Eye: Normal conjunctiva, no drainage Ears, Nose, Mouth, and Throat: oral mucosa is moist. Nares patent. Cardiovascular: Regular Rate and Rhythm Respiratory: Patient is in no distress, no accessory muscle use Back: non-tender GI: Soft and nontender Musculoskeletal: Left knee has a very superficial abrasion and has full range of motion and no tenderness on palpation. The right knee has also a superficial abrasion at the inferior aspect, just below the patella. Her knee joint is stable. No ballotable effusion Neurological: A&O, normal speech Psychiatric: Cooperative Constitutional Vital Signs, click to edit/add: Last Vital Signs Temp 98.1 F 08/31/24 09:44 Pulse 104 H 08/31/24 09:44 Resp 20 08/31/24 09:44 BP 100/80 08/31/24 09:44 Pulse Ox 97 08/31/24 09:44 O2 Del Method Room Air 08/31/24 09:44 Course Vital Signs Vital signs: Vital Signs Temperature 98.1 F 08/31/24 09:44 Pulse Rate 104 H 08/31/24 09:44 Respiratory Rate 20 08/31/24 09:44 Blood Pressure 100/80 08/31/24 09:44 Pulse Oximetry 97 08/31/24 09:44 Oxygen Delivery Method Room Air 08/31/24 09:44 Temperature 98.1 F 08/31/24 09:44 Pulse Rate 104 H 08/31/24 09:44 Respiratory Rate 20 08/31/24 09:44 Blood Pressure 100/80 08/31/24 09:44 Pulse Oximetry 97 08/31/24 09:44 Oxygen Delivery Method Room Air 08/31/24 09:44 Medical Decision Making MDM Narrative Medical decision making narrative: X-rays negative. Rickey wrap applied, application checked by me and found to be appropriate, she is neurovascularly intact. She was prescribed ibuprofen and recommended ice and rest. Treatment diagnosis and follow-up were discussed with the patient. Differential Diagnosis Differential Diagnosis: Fracture, effusion, Imaging Data Right knee x-ray: Radiologist's impression: ITS Impressions Knee X-Ray 08/31/24 10:08 IMPRESSION: NO ACUTE BONY INJURY. Impression dictated by: Edwige José M.D. 08/31/2024 10:33 AM Dictation Location: [place] [address] Electronically authenticated by: [id number] Y Date: 08/31/2024 10:33 Discharge Plan Discharge Chief Complaint: Extremity Injury, Lower Clinical Impression: Contusion of right knee Patient Disposition: Home, Self-Care Time of Disposition Decision: 10:42 Condition: Good Mode of Transportation: Private Vehicle Prescriptions / Home Meds: New ibuprofen 800 mg tablet 800 mg PO Q8H PRN (Reason: pain) Qty: 20 0RF No Action lamotrigine 200 mg tablet 200 mg PO .qhs omeprazole 20 mg capsule,delayed release(DR/EC) 20 mg PO DAILY mirtazapine 7.5 mg tablet 7.5 mg PO BEDTIME methocarbamol 750 mg tablet 750 mg PO Q6H PRN (Reason: pain) Qty: 30 0RF alprazolam 0.25 mg tablet 0.25 mg PO BID amitriptyline 25 mg tablet 25 mg PO BEDTIME olanzapine 2.5 mg tablet 2.5 mg PO .qhs Spiriva Respimat 2.5 mcg/actuation mist 2 puff INHALATION DAILY olanzapine 10 mg tablet 10 mg PO .QHS ondansetron 4 mg tablet,disintegrating 4 mg PO Q6H PRN (Reason: nausea and vomiting) 4 Days Qty: 10 0RF albuterol sulfate [Ventolin HFA] 90 mcg/actuation HFA aerosol inhaler 2 inh inhalation Q6H PRN (Reason: shortness of breath or wheezing) Qty: 6.7 0RF ipratropium-albuterol 0.5 mg-3 mg(2.5 mg base)/3 mL Solution For Nebulization 3 ml inhalation Q6H PRN (Reason: shortness of breath or wheezing) 30 Days Qty: 180 0RF Rx Instructions: please dispense #1 box prednisone 20 mg Tablet 40 mg PO QD 7 Days Qty: 14 0RF levofloxacin 750 mg Tablet 750 mg PO QD 5 Days Qty: 5 0RF fluticasone furoate-vilanterol [Breo Ellipta] 100-25 mcg/dose blister with device 1 inh inhalation DAILY 30 Days Qty: 60 0RF Print Language: Swazi Instructions: Contusion in Adults (ED) Referrals: [facility] [Primary Care Provider] - 1 week
--- OUTSIDE RECORDS SUMMARY | 2024-08-31 10:06 | XMS_ITS | CCD ---
Author Organization [facility] Care Team Providers Care Jute Bag Sewer Name Role Phone Cristina Iqbal CNP Primary Care Provider Vipni Pina Attending Unavailable Roshni Werner Attending Unavailable Cristina Iqbal CNP Primary Care Provider CRISTINA IQBAL Primary Care Unavailable KENNEDYOT, UPENDER Attending Unavailable CRISTINA IQBAL Primary Care Unavailable KENNEDYOT, ALESSANDROENDER Attending Unavailable CRISTINA IQBAL Primary Care Unavailable SAEHLOT, UPENDER Attending Unavailable CRISTINA IQBAL Primary Care Unavailable GEHLOT, UPENDER Attending Unavailable Cristina Iqbal CNP Primary Care Provider Cristina Iqbal CNP Primary Care Provider Cristina Iqbal CNP Primary Care Provider [phone] CRISTINA IQBAL Primary Care Unavailable KIRSTEN DALTON Attending Unavailable CRISTINA IQBAL Primary Care Unavailable MUELLAI, ANASTASIYA Referring Unavailable MUELLAI, ANASTASIYA Attending Unavailable CRISTINA IQBAL Primary Care Unavailable DAVIDI, ANASTASIYA Attending Unavailable ROGER, CRISTINA VICKERS Referring Unavailable ROGER, CRISTINA VICKERS Primary Care Unavailable ROGER, CRISTINA VICKERS Primary Care Unavailable ROGER, CRISTINA VICKERS Referring Unavailable TIFFANI MORALES Attending Unavailable FREDERICK CHAVES Attending Unavailable CRISTINA IQBAL Primary Care Unavailable TIFFANI MORALES Referring Unavailable ROGER, CRISTINA ALEE Primary Care Unavailable TIFFANI MORALES Referring Unavailable TIFFANI MORALES Attending Unavailable AICHHOLZ, CRISTINA ALEE Primary Care Unavailable YAN GARCIA JR Attending Unavailable AICHOLZ, CRISTINA ALEE Primary Care Unavailable ANASTASIYA MOSQUEDA Referring Unavailable [facility], [facility] Primary [facility] Unavailable ANNELISE FRAZIER Admitting Unavailable ANNELISE FRAZIER Attending Unavailable ANNELISE FRAZIER Consulting Unavailable BELEN REGAN Consulting Unavailable IRINA SEGURA Admitting Unavailable IRINA SEGURA Attending Unavailable AICHOLZ, STRAP CUTTING MACHINE OPERATOR CRISTINA Primary Care Unavailable MISC, DR DECKER Consulting Unavailable GEHLOT, UPENDER Admitting Unavailable GEHLOT, UPENDER Attending Unavailable AICHOL, STRAP CUTTING MACHINE OPERATOR CRISTINA Referring Unavailable AICHHOLZ, [facility] Primary Care Unavailable GEHLOT, UPENDER Consulting Unavailable BENEDICT, DR RYDER Admitting Unavailable BENEDICT, DR RYDER Attending [facility], [facility] Primary Care Unavailable BENEDICT, DR RYDER Consulting Unavailable MISC, DR DECKER Admitting Unavailable MISC, DR DECKER Attending Unavailable AICHOLZ, [facility] Primary Care Unavailable MISC, DR DECKER Consulting Unavailable AICHOL, [facility] Primary Care Unavailable PAY ., DR ZULUAGA Admitting Unavailable PAY ., DR ZULUAGA Attending Unavailable PAY ., DR ZULUAGA Consulting Unavailable CHITRA ALFARO Consulting Unavailable [facility], [facility] Primary Care Unavailable PAY ., DR ZULUAGA Admitting Unavailable PAY ., DR ZULUAGA Attending Unavailable ZIEBER, DR RYDER R Consulting Unavailable PAY ., DR ZULUAGA Consulting Unavailable [facility], [facility] Primary Care Unavailable GELA WESLEY Admitting Unavailable GELA WESLEY Attending Unavailable BARBI HENRY Consulting Unavailable TJ .GELA Consulting Unavailable [facility] Primary Care Physician Lala Zarco Primary Care Physician [phone] [facility] Primary Care Unavailable Sandoval Rae Admitting Unavailable Sandoval Rae Attending Unavailable Sandoval Rae Referring Unavailable Sandoval Rae Attending Unavailable Sandoval Rae Attending Unavailable Sandoval Rae Attending Unavailable Sandoval Rae Attending Unavailable Lala Zarco Attending Unavailable Lala Zarco Attending Unavailable CHANCE SERRANO Primary Care Unavailable Carolee Lala L Attending Unavailable Sandoval Rae Admitting Unavailable Sandoval Rae Attending Unavailable Sandoval Rae Referring Unavailable Eligio Noe Attending Unavailable Eligio Noe Admitting Unavailable Cristina Iqbal Primary Care Unavailable Carolee, CROP PEST CONTROL SPECIALIST Lala L Attending Unavailable Carolee, CROP PEST CONTROL SPECIALIST Lala L Attending Unavailable Carolee, CROP PEST CONTROL SPECIALIST Lala L Attending Unavailable Carolee, CROP PEST CONTROL SPECIALIST Lala L Admitting Unavailable Carolee, CROP PEST CONTROL SPECIALIST Lala L Admitting Unavailable Carolee, CROP PEST CONTROL SPECIALIST Lala L Attending Unavailable Medications Current Medications Medication Drug Class(es) Dates Sig (Normalized) Sig (Original) albuterol 0.83 mg/ml inhalation solution (20 sources) beta2-Adrenergic Agonist Start: 06-16-2024 take 2.5 mg by inhalation every six hours as needed Albuterol Sulfate 2.5 mg /3 mL (0.083 %) solution for nebulization Active 2.5 MG INHALATION Every 6 hours as needed June 16, 2024 12:00am Start: 06-16-2024 Albuterol Sulf ate 90 mcg/actuation HFA aerosol inhaler Active 2 INH INHALATION Q6H as needed June 16, 2024 12:00am Start: 07-16-2019 albuterol (PRO VENTIL) 2.5 mg /3 mL (0.083 %) nebulizer solution 2.5 mg . 0 07/16/2019 Active Start: 07-16-2019 take 2.5 mg by inhal ation every six hours as needed albuterol 0.083% Inh Misty 3 mL 2.5 mg, 3 mL, Inhalation, q6hr, Refill(s) 12, Q6H and PRN Start Date: 07/16/19 Status: Ordered albuterol 0.833 mg/ml / ipratropium bromide 0.167 mg/ml inhalation solution (1 source) Anticholinergic, beta2-Adrenergic Agonist Start: 06-16-2024 Ipratropium-Albuterol 0.5 mg-3 mg(2.5 mg base)/3 mL solution for nebulization Active 3 ML INHALATION every 6 to 8 hours as needed June 16, 2024 12:00am ALPRAZolam 0.5 mg oral tablet (20 sources) [...] anxiety . 90 tablet 1 08/22/2020 Active Start: 03-18-2017 End: 05-06-2019 take 0.5 mg by mouth twice daily Alprazolam 1 mg tablet Discontinued 0.5 MG PO Twice daily March 18, 2017 1:00am May 06, 2019 3:35pm Start: 03-18-2017 End: 05-06-2019 take 1 tablet by mouth once daily Alprazolam (Xanax) 1 mg Tablet Discontinued 1 MG PO Daily March 18, 2017 1:00am May 06, 2019 3:35pm Comment on above: Take 0.5 mg by mouth three times daily as needed. amitriptyline hydrochloride 25 mg oral tablet (2 sources) Tricyclic Antidepressant Start: 04-01-20 25 take 1 tablet by mouth once daily at bedtime Amitriptyline 25 mg tablet Active 25 MG PO Daily at bedtime June 16, 2024 12:00am Start: 03-23-2024 take 1 tablet by shahzad th once daily at bedtime Elavil 25 mg Tab 25 mg = 1 tab(s), Oral, Once a day (at bedtime), # 30 tab(s), Refills(s) 5, Pharmacy: [facility]/pharmacy #[id number], 169, cm, 03/23/24 13:17:00 [...] oral capsule (1 source) Cephalosporin Antibacterial Start: 09-24-2023 End: 09-29-2023 take 1 capsule by mouth every twelve hours Keflex 500 mg Cap 500 mg = 1 cap(s), Oral, q12hr, X 5 day(s), # 10 cap(s), Refills(s) 0, [id number], cm, 09/24/23 13:02:00 EDT, Height/Length Dosing, 61.2, kg, 09/24/23 13:02:00 EDT, Weight Dosing Start Date: 09/24/23 Stop Date: 09/29/23 Status: Ordered cholestyramine resin 4000 mg powder for oral suspension (5 sources) Bile Acid Sequestrant Start: 01-16-2024 Questran 4 g/9 g oral powder = 1 packet(s), Oral, BID, # 60 EA, Refills(s) 2, Pharmacy: [facility]/pharmacy #[id number], 169, cm, 01/16/24 10:14:00 EDT, Height/Length Dosing, 63.9, kg, 01/16/24 10:14:00 EDT, Weight Dosing Start Date: 01/16/24 Status: Ordered cloNIDine hydrochloride 0.2 mg oral tablet (20 sources) Central alpha-2 Adrenergic Agonist Start: 06-16-2024 take 1 tablet by mouth once daily at bedtime Clonidine Hcl 0.2 mg tablet Active 0.2 MG PO Daily at bedtime June 16, 2024 12:00am Start: 05-24-2020 End: 10-03-2021 take 1 tablet by mouth at bedtime cloNIDine 0.2 mg Tab 0.2 mg = 1 tab(s), Oral, Bedtime, # 30 tab(s), Refills(s) 1, Pharmacy: [facility]/pharmacy #[id number], 173, cm, 05/24/20 14:42:00 EST, Height/Length Dosing, 50.1, kg, 05/24/20 14:42:00 EST, Weight Dosing Start Date: 05/24/20 Status: Ordered enteric contrast (will be provided [...] Contrast as designated per enteric contrast guidelines. 30 actuat fluticasone furoate 0.1 mg/actuat / vilanterol 0.025 mg/actuat dry powder inhaler (1 source) Corticosteroid, beta2-Adrenergic Agonist Start: 03-18-2017 Fluticasone Furoate-Vilanterol 0 blister with device Active 2 PUFF INHALATION Daily March 18, 2017 1:00am hydrOXYzine hydrochloride 50 mg oral tablet (15 sources) Antihistamine Start: 04-26-2020 take 1 tablet by mouth three times daily as needed for anxiety hydrOXYzine hydrochloride 50 mg oral tablet 50 mg = 1 tab(s), Oral, TID, PRN as needed for anxiety, # 30 tab(s), Refills(s) 0, Pharmacy: [facility]/pharmacy #[id number], 173, cm, 04/26/20 13:07:00 EST, Height/Length Dosing, 52.8, kg, 04/26/20 13:07:00 EST, Weight Dosing Start Date: 04/26/20 Status: Ordered Start: 03-18-2017 End: 05-06-2019 take 1 capsule by mouth three times daily Hydroxyzine Pamoate 50 mg capsule Discontinued 50 MG PO Three times daily March 18, 2017 1:00am May 06, 2019 3:36pm End: 01-03-2022 take 1 capsule by mouth [...] the CT contrast administration guidelines link. lamoTRIgine 200 mg oral tablet (20 sources) Mood Stabilizer, Anti-epileptic Agent Start: 06-17-19 25 take 1 tablet by mouth once daily Lamotrigine 200 mg tablet Active 200 MG PO Daily June 16, 2024 12:00am Start: 11-27-2023 take 1 tablet by shahzad th once daily lamotrigine 25 mg Tab See Instructions, TAKE 1 TABLET BY MOUTH EVERY DAY IN THE AFTERNOON, # 30 tab(s), Refills(s) 0, Pharmacy: [facility] ST[id number], 169.7, cm, 11/26/23 15:32:00 EDT, Height/Length Dosing, [...] mouth . mirtazapine 7.5 mg oral tablet (8 sources) Start: 06-16-2024 take 1 tablet by mouth once daily at bedtime Mirtazapine 7.5 mg tablet Active 7.5 MG PO Daily at bedtime June 16, 2024 12:00am Start: 10-31-2023 take 1 tablet by shahzad th at bedtime mirtazapine 7.5 mg oral tablet 7.5 mg = 1 tab(s), Oral, Bedtime, # 30 tab(s), Refills(s) 0, Pharmacy: [facility]/pharmacy #[id number], 169.7, cm, 10/03/23 9:38:00 EDT, Height/Length Dosing, 62.5, kg, 10/03/23 9:38:00 EDT, Weight Dosing Start Date: 10/31/23 Status: Ordered Start: 05-06-2019 End: 06-16-2024 take 1 tablet by mouth once daily Mirtazapine 15 mg tablet Discontinued 15 MG PO Daily May 06, 2019 1:00am June 16, 2024 12:11pm 24 hr nicotine 0.875 mg/hr transdermal system (8 sources) Cholinergic Nicotinic Agonist Start: 02-18-2024 nicotine 21 mg/24 hr Transderm ER Film [...] omeprazole 20 mg delayed release oral capsule (7 sources) Proton Pump Inhibitor Start: 06-16-2024 take 1 capsule by mouth once daily Omeprazole 20 mg capsule,delayed release(DR/EC) Active 20 MG PO Daily June 16, 2024 12:00am Start: 03-23-2024 take 1 capsule by [facility] once daily omeprazole 20 mg Cap-DR See Instructions, TAKE 1 CAPSULE BY MOUTH EVERY DAY, # 30 cap(s), Refills(s) 0, Pharmacy: [id number], 169, cm, 02/25/24 9:14:00 EST, Height/Length Dosing, 62.2, kg, 02/25/24 9:14:00 EST, Weight Dosing Start Date: 03/23/24 Status: Ordered Start: 02-24-2024 take 1 capsule by [facility] once daily omeprazole 20 mg Lisandro- See Instructions, TAKE 1 CAPSULE BY MOUTH EVERY DAY, # 30 cap(s), Refills(s) 0, Pharmacy: [facility]ORE [id number], 169, cm, 02/21/24 8:47:00 EST, Height/Length Dosing, 62.2, kg, 02/21/24 8:47:00 EST, Weight Dosing Start Date: 02/24/24 Status: Ordered Start: 01-20-2024 take 1 capsule by [facility] once daily omeprazole 20 mg Cap-DR See Instructions, TAKE 1 CAPSULE BY MOUTH EVERY DAY, # 30 cap(s), Refills(s) 0, Pharmacy: [facility] STORE [id number], 169, cm, 01/16/24 10:14:00 EDT, Height/Length Dosing, 63.9, kg, 01/16/24 10:14:00 EDT, Weight Dosing Start Date: 01/20/24 Status: Ordered Start: 12-04-2023 take 1 capsule by [facility] once daily omeprazole 20 mg Cap-DR See Instructions, TAKE 1 CAPSULE BY MOUTH EVERY DAY, # 30 cap(s), Refills(s) 0, Pharmacy: [facility]/pharmacy #[id number], 169.7, cm, 11/26/23 15:32:00 EDT, Height/Length Dosing, 62.1, kg, 11/26/23 15:32:00 EDT, Weight Dosing Start Date: 12/04/23 Status: Ordered ondansetron 8 mg disintegrating oral tablet (20 sources) Serotonin-3 Receptor Antagonist Start: 06-16-2024 take 1 tablet by mouth every eight hours as needed Ondansetron 8 mg tablet,disintegrating Active 8 MG PO Every 8 hours as needed June 16, 2024 12:00am Start: 02-27-2024 take 1 tablet by [facility] every eight hours as needed for nausea Zofran 4 mg Tab 4 mg = 1 tab(s), Oral, q8hr, PRN Nausea, # 30 tab(s), Refills(s) 0, Pharmacy: [facility]/pharmacy #[id number], 169, cm, 02/25/24 9:14:00 EST, Height/Length Dosing, 62.2, kg, 02/25/24 9:14:00 EST, Weight Dosing Start Date: 02/27/24 Status: Ordered Start: 02-18-2024 ondansetron 8 mg Dis Tab See Instructions, DISSOLVE 1 TABLET ON THE TONGUE EVERY 8 HOURS NEEDED FOR NAUSEA AND VOMITING, # 24 tab(s), Refills(s) 0, [id number] 169, cm, 02/18/24 11:55:00 EST, Height/Length Dosing, 61.8, kg, 02/18/24 11:55:00 EST, Weight Dosing Start Date: 02/18/24 Status: Ordered Start: 12-20-2023 take 1 tablet by shahzad th every six hours as needed for nausea ondansetron 4 mg Dis Tab 4 mg = 1 tab(s), Oral, q6hr, PRN Nausea/Vomiting, # 30 tab(s), Refills(s) 0, [id number] 169.7, cm, 11/26/23 15:32:00 EDT, Height/Length [...] Nausea, # 10 tab(s), Refills(s) 0, [id number] 173, cm, 04/26/20 13:07:00 EST, Height/Length Dosing, 52.8, kg, 04/26/20 13:07:00 EST, Weight Dosing Start Date: 04/26/20 Status: Ordered Start: 02-27-2019 End: 05-06-2019 take 1 tablet by mouth every eight hours as needed for nausea and vomiting Ondansetron 8 mg tablet,disintegrating Discontinued 8 MG PO Q8H as needed for nausea and vomiting 04 08February 27, 2019 1:00am May 06, 2019 3:36pm Start: 03-18-2017 End: 08-15-2017 Ondansetron 4 mg tablet,disintegrating Discontinued March 18, 2017 1:00am August 15, 2017 11:53pm Comment on above: Take 4 mg by mouth e very 8 hours as needed. Take 1 tablet by shahzad th every 8 hours as needed for nausea/vomiting (for nausea.). Take 1 tablet by shahzad th once daily as needed for nausea/vomiting (for nausea.) for up to 14 days. Take 1 tablet by shahzad th every 12 hours as needed for nausea/vomiting. Oxygen unit (2 sources) Start: 06-25-2024 Oxygen unit Ac tive 0 .Route June 25, 2024 11:38am As directed 1 L/M DME Rogelio she has POC also Start: 06-25-2024 End: 06-25-2024 Oxygen unit Discontinued 0 . Route June 25, 2024 12:00am June 25, 2024 11:39am As directed pantoprazole 40 mg delayed release oral tablet (20 sources) Proton Pump Inhibitor Start: 07-16-2019 Protonix 40 mg Tab-D R Oral, 0 Refill(s), Refills(s) 0 Start Date: 07/16/19 Status: Ordered Start: 07-16-2019 take 1 tablet by shahzad th once daily pantoprazole 40 mg Oral EC Tab 40 mg = 1 tab(s), Oral, Daily, # 30 tab(s), Refills(s) 0 Start Date: 07/16/19 Status: Ordered Comment on above: Take 40 mg by mouth once daily. polyethylene glycol 3350 44211 mg powder for oral solution (18 sources) Osmotic Laxative Start: 05-24-19 21 polyethylene glycol (MIRALAX) 17 gram powder MIX 1 PACKET IN DRINK AND TAKE ONCE DAILY 0 05/23/2020 Active promethazine hydrochloride 25 mg oral tablet (11 sources) Phenothiazine Start: 06-17-19 25 take 1 tablet by mouth three times daily Promethazine 25 mg tablet Active 25 MG PO Three times daily June 16, 2024 12:00am Start: 02-12-2024 take 1 tablet by shahzad three times daily promethazine 25 mg Tab 25 mg = 1 tab(s), Oral, TID, # 15 tab(s), Refills(s) 1, [id number] 169, cm, 03/23/24 13:17:00 EST, Height/Length Dosing, 64.9, kg, 03/23/24 13:17:00 EST, Weight Dosing Start Date: 03/23/24 Status: Ordered Start: 09-24-2023 take 1 tablet by [facility] three times daily promethazine 25 mg Tab 25 mg = 1 tab(s), Oral, TID, # 15 tab(s), Refills(s) 0, [id number] 172, cm, 09/24/23 13:02:00 EDT, Height/Length Dosing, 61.2, kg, 09/24/23 13:02:00 EDT, Weight Dosing Start Date: 09/24/23 Status: Ordered Start: 12-03-2021 take 1 tablet by [facility] every four hours promethazine 25 mg Tab 25 mg = 1 tab(s), Oral, q4hr, # 12 tab(s), Refills(s) 0, [id number] 172.9, cm, 12/03/21 10:15:00 EDT, Height/Length Dosing, 46.2, kg, 12/03/21 10:15:00 EDT, Weight Dosing Start Date: 12/03/21 Status: Ordered Start: 12-03-2021 Phenergan 25 m g Supp 25 mg = 1 supp, Rectal, q6hr, PRN as needed for nausea, Insert one per rectum every six hours as needed for nausea and vomiting, # 6 EA, Refills(s) 0, Pharmacy: [facility]/pharmacy #[id number], 172.9, cm, 12/03/21 10:15:00 [...] 08/22/2020 Active sucralfate 1000 mg oral tablet (3 sources) Aluminum Complex Start: 02-21-2024 End: 03-06-2024 take 1 tablet by mouth four times daily Carafate 1 gram Tab 1 gm = 1 tab(s), Oral, QID, X 14 day(s), # 56 tab(s), Refills(s) 0, Pharmacy: [facility]/pharmacy #[id number], 169, cm, 02/21/24 8:47:00 EST, Height/Length Dosing, 62.2, kg, 02/21/24 8:47:00 EST, Weight Dosing Start Date: 02/21/24 Stop Date: 03/06/24 Status: Ordered Start: 05-06-2019 End: 06-25-2024 take 1 tablet by mouth four times daily Sucralfate 1 gram tablet Discontinued 1 GM PO Four times daily May 06, 2019 1:00am June 25, 2024 11:36am 60 actuat tiotropium 0.0025 mg/actuat inhalation spray (20 sources) Anticholinergic Start: 06-16-2024 take 1 puff(s) by inhalation once daily Tiotropium [place] (Spiriva Respimat) 2.5 mcg/actuation mist Active 2 PUFF INHALATION Daily June 16, 2024 12:00am Start: 02-18-2024 Spiriva Respim at 10 ACT 2.5 mcg/inh inhalation aerosol = 2 puff(s), Inhalation, Daily, Refills(s) 0 Start Date: 02/18/24 Status: Ordered Start: 11-27-2023 Spiriva Respim at 60 ACT 2.5 mcg/inh inhalation aerosol = 2 inh, Inhalation, Daily, # 4 gm, Refills(s) 11, Pharmacy: [facility]/pharmacy #[id number], 169.7, cm, 11/26/23 15:32:00 EDT, Height/Length Dosing, 62.1, kg, 11/26/23 15:32:00 EDT, Weight Dosing Start Date: 11/27/23 Status: Ordered Start: 07-16-2019 Spiriva Respim at 10 ACT 2.5 mcg/inh inhalation aerosol = 2 puff(s), Inhalation, Daily, Refills(s) 0 Start Date: 07/16/19 Status: Ordered Start: 03-18-2017 End: 06-16-2024 take 1 puff(s) by inhalation once daily Tiotropium [place] 2.5 mcg/actuation mist Discontinued 2 PUFF INHALATION Daily March 18, 2017 1:00am June 16, 2024 12:44pm take 1 capsule by in halation once [...] TID, # 15 tab(s), Refills(s) 0, Pharmacy: [facility]/pharmacy #[id number], 172, cm, 09/24/23 13:02:00 [...] Nausea/Vomiting, # 24 tab(s), Refills(s) 0, Pharmacy: [id number], 169, cm, 03/23/24 13:17:00 EST, Height/Length Dosing, 64.9, kg, 03/23/24 13:17:00 EST, Weight Dosing Start Date: 03/23/24 Status: Ordered Start: 02-12-2024 take 1 tablet under the tongue every eight hours as needed for nausea Zofran ODT 8 mg Tab-Dis 8 mg = 1 tab(s), SubLingual, q8hr, PRN Nausea/Vomiting, # 24 tab(s), Refills(s) 0, [id number] 169, cm, 01/16/24 10:14:00 EDT, Height/Length Dosing, 63.9, kg, 01/16/24 10:14:00 EDT, Weight Dosing Start Date: 02/12/24 Status: Ordered Start: 01-23-2024 take 1 tablet under the tongue every eight hours as needed for nausea Zofran ODT 8 mg Tab-Dis 8 mg = 1 tab(s), SubLingual, q8hr, PRN Nausea/Vomiting, # 24 tab(s), Refills(s) 0, [id number] 169, cm, 01/16/24 10:14:00 EDT, Height/Length Dosing, 63.9, kg, 01/16/24 10:14:00 EDT, Weight Dosing Start Date: 01/23/24 Status: Ordered Completed/Discontinued Medications Medication Drug Class(es) Dates Sig (Normalized) Sig (Original) amylase 836391 unt / lipase 71492 unt / protease [id number] unt delayed release oral capsule (1 source) Start: 05-06-2019 End: 06-25-2024 take 1 tablet by mouth three times daily Jikwhl-Ikfleznc-T mylase 40,000-126,000- 168,000 unit capsule,delayed release(DR/EC) Discontinued 1 TAB PO Three times daily May 06, 2019 1:00am June 25, 2024 11:37am clonazePAM 1 mg oral tablet (7 sources) Benzodiazepine End: 01-03-2022 take 1 tablet by mouth every twelve hours as needed clonazePAM 1 mg tablet Take 1 mg by mouth twice daily as needed. 0 01/03/2022 Discontinued (Course of therapy completed) Comment on above: Take 1 mg by mouth t wice daily as needed. colestipol hydrochloride 1000 mg oral tablet (6 sources) Bile Acid Sequestrant Start: 06-16-2024 End: 06-25-2024 take 2 tablets by mouth twice daily Colestipol 1 gram tablet Discontinued 1 GM PO Twice daily June 16, 2024 12:00am June 25, 2024 11:34am 2 tablets BID Start: 01-23-2024 take 2 tablets by mo ut twice daily colestipol 1 g Tab 2 gm = 2 tab(s), Oral, BID, with a full glass of water, # 120 tab(s), Refills(s) 1, Pharmacy: [facility]/pharmacy #[id number], 169, cm, 01/16/24 10:14:00 EDT, Height/Length Dosing, 63.9, kg, 01/16/24 10:14:00 EDT, Weight Dosing Start Date: 01/23/24 Status: Ordered diclofenac sodium 0.01 mg/mg topical gel (7 [...] Puff as ins tructed twice daily. gabapentin 600 mg oral tablet (8 sources) Anti-epileptic Agent Start: 03-18-2017 End: 05-06-2019 Gabapentin 600 mg tablet Discontinued 300 MG PO Three times daily March 18, 2017 1:00am May 06, 2019 3:36pm Start: 10-24-2012 End: 01-03-2022 gabapentin (NEURONTIN) 100 m g capsule Indications: Hand pain , Numbness and tingling , Neuropathy Take 1cap nightly x 3-5days, increase 1cap every 3-5days until 3caps AM/3caps noon/3capsPM thereafter if tolerated/necessary. 270 capsule 3 10/24/2012 01/03/2022 Discontinued (Course of therapy completed) Comment on above: Take 1cap nightly x 3-5days, increase 1cap every 3-5days until 3caps AM/3caps noon/3capsPM thereafter if tolerated/necessary. ibuprofen 800 mg oral tablet (1 source) Nonsteroidal Anti-inflammatory Drug Start : 03-18 End: 08-15 Ibuprofen 800 mg tablet Discontinued TABLET March 18, 2017 1:00am August 15, 2017 11:53pm levoFLOXacin 750 mg oral tablet (1 source) Quinolone Antimicrobial Start : 06-16 End: 06-25 take 1 tablet by mouth once daily Levofloxacin 750 mg tablet Discontinued 750 MG PO Daily June 16, 2024 12:00am June 25, 2024 11:35am lurasidone hydrochloride 120 mg oral tablet (1 source) Atypical Antipsychotic Start : 03-18 End: 05-06 take 1 tablet by mouth once daily Lurasidone (Latuda) 120 mg tablet Discontinued 120 MG PO Daily March 18, 2017 1:00am May 06, 2019 3:36pm metoclopramide 10 mg oral tablet (1 source) Dopamine-2 Receptor Antagonist Start : 12-11 End: 01-05 take 1 tablet by mouth every eight hours as needed metoclopramide HCl (REGLAN) 10 mg tablet Take 10 mg by mouth every 8 hours as needed. 0 12/11/2021 01/05/2022 Discontinued (Course of therapy completed) Comment on above: Take 10 mg by mouth every 8 hours as needed. prazosin 2 mg oral capsule (7 sources) alpha-Adrenergic Cari End: 01-03 take 1 capsule by mouth twice daily prazosin 2 mg cap Take by mouth twice daily. 0 01/03/2022 Discontinued (Course of therapy completed) Comment on above: Take by mouth twice daily. predniSONE 20 mg oral tablet (1 source) Start : 06-16 End: 06-25 take 1 tablet by mouth once daily Prednisone 20 mg tablet Discontinued 20 MG PO Daily June 16, 2024 12:00am June 25, 2024 11:36am prochlorperazine 5 mg oral tablet (15 sources) Phenothiazine Start : 02-07 End: 03-14 take 1 tablet by mouth every six [...] AND VOMITING sertraline 100 mg oral tablet (8 sources) Serotonin Reuptake Inhibitor Start: 05-06-19 End: 06-26-19 take 1 tablet by mouth once daily Sertraline 100 mg tablet Discontinued 100 MG PO Daily May 06, 2019 1:00am June 25, 2024 11:36am Comment on above: Take 100 mg by mouth once daily. temazepam 15 mg oral capsule (1 source) Benzodiazepine Start: 03-18-19 End: 08-16-19 Temazepam 15 mg capsule Discontinued March 18, 2017 1:00am August 15, 2017 11:53pm Problems Active Problems Problem Classification Problem Date [...] CHRONIC GASTRITIS W/O BLEEDING] Onset: 2 Chronic Headache; including migraine (1 source) Acute pain in face; Translations: [Acute facial pain] 03-18-2017 Episodic Mood disorders (20 sources) Moderate mixed bipolar [...] sources) H/O: high risk medication; Translations: [Other parts counterman (current) drug therapy] Episodic Other and unspecified [...] diseases of intestine] Episodic Other gastrointestinal disorders (7 sources) Diarrhea; Translations: [Diarrhea, unspecified] 11-26-2023 Episodic Other injuries and conditions due to external causes (1 source) History of fall; Translations: [History of falling] 03-18-2017 Episodic Other lower respiratory disease (7 sources) [...] 2021 Episodic Other aftercare (7 sources) Other shelter (current) drug therapy; Translations: [Other parts counterman (current) drug therapy] Onset: 09-19-2021 Episodic Other [...] Reference Range Facility Ambulatory Visit Summaryon 0 06-09-2024 Ambulatory Visit Summary Ambulatory Visit Summary SAI PINEDA :1970 Visit Date:06/09/2024 Ambulatory Visit Instructions Your Diagnosis COPD with exacerbation Insomnia Former smoker BMI 23.0-23.9, adult Oxygen dependent Your Care Team Attending Physician - Lala Horner Primary Care Physician - Lala Horner This Is Your Medications List albuterol (Ventolin HFA 90 mcg/inh Aerosol) albuterol (albuterol 0.083% Inh Misty 3 mL) albuterol-ipratropium (albuterol-ipratropium Inh Misty 3 mL UD) amitriptyline (Elavil 25 mg Tab) clonidine (cloNIDine 0.2 mg Tab) colestipol (colestipol 1 g Tab) hydrOXYzine (hydrOXYzine hydrochloride 50 mg oral tablet) lamotrigine (lamotrigine 25 mg Tab) levofloxacin (levofloxacin 750 mg Tab) mirtazapine (mirtazapine 7.5 mg oral tablet) omeprazole (omeprazole 20 mg Cap-DR) ondansetron (ondansetron 8 mg Dis Tab) predniSONE (predniSONE 20 mg Tab) promethazine (promethazine 25 mg Tab) tiotropium (Spiriva Respimat 60 ACT 2.5 mcg/inh inhalation aerosol) Procedures Performed Esophagogastroduodenoscopy (02/25/2024), Colonoscopy (05/08/2019), EGD - Esophagogastroduodenoscopy (05/08/2019), CT - Computerized tomography (01/18/2019), Echocardiogram (11/14/2016), Cardiovascular stress testing (11/01/2016), Appendectomy, delivery, Cholecystectomy, Foot repair, Oral surgery, Total hysterectomy. Discharge Vitals Temperature (Oral) 36.2 ???C Heart Rate (Peripheral) 108 Respiratory Rate 20 Blood Pressure 116/68 Height 169.0 cm Height 67 in Weight 66.55 kg Weight 146.717 lb BMI 23.3 What to do next Scheduled Follow-Up Appointments Saturday 10:20 AM EDT With: Lala Horner Where: [place] [address]- Someone Will Contact You Regarding These Appointments [facility] External Ambulatory Referral, Pulmonology, [facility] pulmonology-see comments, 06/09/24 10:27:00 EDT, COPD with exacerbation Oxygen dependent Former smoker Medications What How Much When Why Instructions Unchanged albuterol (albuterol 0.083% Inh Misty 3 mL) 3 Milliliter Inhalation Every 6 hours as needed for for wheezing BMI 23.0-23.9, adult Former smoker Unchanged albuterol (Ventolin HFA 90 mcg/ inh Aerosol) 2 Puffs Inhalation Every 4 hours as needed for for wheezing Unchanged albuterol-ipratropium (albuterol-ipratropium Inh Misty 3 mL UD) Unchanged amitriptyline (Elavil 25 mg Tab) 1 [...] MOUTH EVERY DAY IN THE AFTERNOON Unchanged levofloxacin (levofloxacin 750 mg Tab) 1 Tablets By Mouth Every 24 hours Duration: 7 Days Unchanged mirtazapine (mirtazapine 7.5 mg oral tablet) 1 Tablets By Mouth At bedtime Unchanged omeprazole (omeprazole 20 mg Cap-DR) See instructions TAKE 1 CAPSULE BY MOUTH EVERY DAY Unchanged ondansetron (ondansetron 8 mg Dis Tab) 1 Tablets By Mouth Every 8 hours as needed for Nausea/Vomiting Unchanged predniSONE (predniSONE 20 mg Tab) 1 Tablets By Mouth As Directed Take three tabs by mouth for one day, then two tabs for one day, then one tab for one day Unchanged promethazine (promethazine 25 mg Tab) 1 Tablets By Mouth 3 times a day Unchanged tiotropium (Spiriva Respimat 60 ACT 2.5 mcg/ inh inhalation aerosol) 2 Inhalation Inhalation Every day Allergies No Known Allergies Problems Ongoing - [...] of abdominal surgery History of colon polyps Hospital discharge follow-up Hypotension Insomnia Malnutrition Maternal family history of dementia Memory loss Nausea and vomiting Pneumonia S/P cholecystectomy Schatzki's ring Smoker Smoker Tetrahydrocannabinol (THC) dependence Underweight due to inadequate caloric intake Vomiting Historical - Any problem that you are no longer receiving (more content not included)... Normal [facility] Medicine Office/Clini c Noteon 06-09-2024 Family Medicine Office/Clinic Note Family Medicine Office/Clinic Note HPI Staff Sai is a 53 year old male presenting with losing voice, chest is sore from coughing so much She is wondering if she can have this seemed to work the best for her... they gave this to her for her hospital stay OTC cough meds, cough drops nothing seemed to help... voice better than yesterday History of Present Illness pt presents today c/o not being able to sleep and continued cough and losing her voice Review of Systems PHQ Score Initial Depression Screen Score: 0 SCORE Physical Exam Vitals & Measurements T: 36.2 ???C(Oral) HR: 108(Peripheral) RR: 20 BP: 116/68 SpO2: 99% HT: 169.0 cm HT: 67 in WT: 66.55 kg WT: 146.717 lb BMI: 23.3 General: alert, no acute distress ENMT: oral mucosa moist, no pharyngeal erythema or exudate Cardiovascular: regular rate and rhythm, normal peripheral perfusion Respiratory: Lungs CTA, respirations non labored Extremities: no deformity, no trauma Neurological: oriented x 4, LOC appropriate for age, CN II-XII intact, motor strength equal & normal bilaterally, speech normal Assessment/Plan 1. COPD with exacerbation (J44.1: Chronic obstructive pulmonary disease with (acute) exacerbation) pt presents today with continued cough and lost her voice. she states the voice is better today. she was only able to whisper yesterday. lungs are much improved since last visit. provider questions her why she no showed for her pulmonology appointment. she states I called them and told them I was just getting out of the hospital. they closed the referral so I will send another referral. if they will not see her, I will refer to [facility] pulmonology. She declines referral to Dr. Joel. encouraged her to keep her appointment she needs to get establish with a staffing assistant ELIECER Ordered: [facility] External Ambulatory Referral 2. Insomnia (G47.00: Insomnia, unspecified) pt states in the hospital she was given remeron to help her sleep. will send refill. 3. Former smoker (Z87.891: Personal history of nicotine dependence) continue not smoking Ordered: [facility] External Ambulatory Referral 4. BMI 23.0-23.9, adult (Z68.23: Body mass index [BMI] 23.0-23.9, adult) BMI education given Oxygen dependent (Z99.81: Dependence on supplemental oxygen) pt con 1 Liter nasal cannula Ordered: [facility] External Ambulatory Referral Orders: mirtazapine, 7.5 mg = 1 tab(s), Oral, Once a day (at bedtime), # 30 tab(s), Refills(s) 1, Pharmacy: [facility]/pharmacy #[id number], 169, cm, 06/09/24 10:17:00 EDT, Height/Length Dosing, 66.5, kg, 06/09/24 10:17:00 EDT, Weight Dosing Follow-up No qualifying data [...] of abdominal surgery History of colon polyps Hospital discharge follow-up Hypotension Insomnia Malnutrition Maternal family history of dementia Memory loss Nausea and vomiting Pneumonia S/P cholecystectomy Schatzki's ring Smoker Smoker Tetrahydrocannabinol [...] 3 mL, Inhalation, q6hr, PRN, 1 refills albuterol-ipratropium Inh Misty 3 mL UD cloNIDine 0.2 mg Tab, 0.2 mg= 1 tab(s), Oral, Bedtime, 1 refills colestipol 1 g Tab, 2 gm= 2 tab(s), Oral, BID, 1 refills Elavil 25 mg Tab, 25 mg= 1 tab(s), Oral, Once a day (at bedtime), 5 refills hydrOXYzine hydrochloride 50 mg oral tablet, 50 mg= 1 tab(s), Oral, TID, PRN lamotrigine 25 mg Tab, See Instructions levofloxacin 750 mg Tab, 750 mg= 1 tab(s), Oral, q24hr mirtazapine 7.5 mg oral tablet, 7.5 mg= 1 tab(s), Oral, Bedtime mirtazapine 7.5 mg oral tablet, 7.5 mg= 1 tab(s), Oral, Once a day (at bedtime), 1 refills omeprazole 20 mg Cap-DR, See Instructions, 4 refills ondansetron 8 mg Dis Tab, 8 mg= 1 tab(s), Oral, q8hr, PRN predniSONE 20 mg Tab, 20 mg= 1 tab(s), Oral, As Directed promethazine 25 mg Tab, 25 mg= 1 tab(s), Oral, TID, 1 refills Spiriva Respimat 60 ACT 2.5 mcg/inh inhalation aer (more content not included)... Normal [facility] Comment on above: Result Comment: Elec tronically Signed By: Lala Horner\.br\Date and Time Signed: 06/09/24 10:43 EDT Family Medicine Office/Clini c Noteon 06-03-2024 Family Medicine Office/Clinic Note Family Medicine Office/Clinic Note HPI Staff Sai is a 53 year old female presenting for TCM TCM: Hospital: [facility] Admission date: 05/29/24 Discharge date: 06/01/24 Symptoms the patient presented with: acute/chronic respiratory failure New medications: Prednisone, levofloxacin, Current concerns: Pt states she is feeling a lot better, does feel weak has been trying to do house work. Pt states her insurance wont cover . Pt is on oxygen 1L via nasal cannula. Pt would like Rx for Zofran would like the dissolving tabs History of Present Illness pt presents for hospital follow up. was admitted for respiratory failure/pneumonia Review of Systems PHQ Score Initial Depression Screen Score: 1 SCORE Physical Exam Vitals & Measurements HR: 108(Peripheral) RR: 20 BP: 106/72 SpO2: 96% HT: 67 in HT: 169.0 cm WT: 66.0 kg WT: 145.505 lb BMI: 23.11 General: alert, no acute distress ENMT: oral mucosa moist, no pharyngeal erythema or exudate Cardiovascular: regular rate and rhythm, normal peripheral perfusion Respiratory: Lungs expiratory wheezes, respirations non labored Extremities: no deformity, no trauma Neurological: oriented x 4, LOC appropriate for age, CN II-XII intact, motor strength equal & normal bilaterally, speech normal Assessment/Plan 1. Hospital discharge follow-up (Z09: Encounter for follow-up examination after completed treatment for conditions other than malignant neoplasm) pt was recently admitted to [facility] for respiratory failure and pneumonia. is feeling much better. is down to 1 liter of O2 via NC. pt states at one pount she was up to 5 liters. some expiratory wheezing noted on exam. will continue all meds she was given from hospital. RTC 6 weeks just to make sure she is feeling better and no other issues arise. Ordered: E&M of Est. Patient Low 20-29 Min 71954 2. COPD with exacerbation (J44.1: Chronic obstructive pulmonary disease with (acute) exacerbation) pt taking inhalers and oral steroid. see pulmonology on 06/07 Ordered: E&M of Est. Patient Low 20-29 Min 01044 3. Pneumonia (J18.9: Pneumonia, unspecified organism) pt continues taking oral levaquin. she states she has 5 days left Ordered: E&M of Est. Patient Low 20-29 Min 63810 4. BMI 23.0-23.9, adult (Z68.23: Body mass index [BMI] 23.0-23.9, adult) BMI education given Ordered: E&M of Est. Patient Low 20-29 Min 35373 5. Former smoker (Z87.891: Personal history of nicotine dependence) continue not smoking Ordered: E&M of Est. Patient Low 20-29 Min 64321 Orders: ondansetron, 4 mg = 1 tab(s), Oral, q6hr, PRN Nausea/Vomiting, # 30 tab(s), Refills(s) 0, [id number] 169.7, cm, 11/26/23 15:32:00 EDT, Height/Length Dosing, 62.1, kg, 11/26/23 15:32:00 EDT, Weight Dosing ondansetron, 8 mg = 1 tab(s), Oral, q8hr, PRN Nausea/Vomiting, # 20 tab(s), Refills(s) 0, [id number], 169, cm, 06/03/24 10:51:00 EDT, Height/Length Dosing, 66, kg, 06/03/24 10:51:00 EDT, Weight Dosing Follow-up No qualifying data [...] of abdominal surgery History of colon polyps Hospital discharge follow-up Hypotension Malnutrition Maternal family history of dementia Memory loss Nausea and vomiting Pneumonia S/P cholecystectomy Schatzki's ring Smoker Smoker Tetrahydrocannabinol [...] 3 mL, Inhalation, q6hr, PRN, 1 refills albuterol-ipratropium Inh Misty 3 mL UD cloNIDine 0.2 mg Tab, 0.2 mg= 1 tab(s), Oral, Bedtime, 1 refills colestipol 1 g Tab, 2 gm= 2 tab(s), Oral, BID, 1 refills Elavil 25 mg Tab, 25 mg= 1 tab(s), Oral, Once a day (at bedtime), 5 refills hydrOXYzine hydrochloride 50 mg oral tablet, 50 mg= 1 tab(s), Oral, TID, PRN lamotrigine 25 mg Tab, See Instructions levofloxacin 750 mg Tab, 750 mg= 1 tab(s), Oral, q24hr mirtazapine 7.5 mg oral tablet, 7.5 mg= 1 tab(s), Oral (more content not included)... Normal [facility] Comment on above: Result Comment: Elec tronically Signed By: Lala Horner\.br\Date and Time Signed: 06/03/24 11:09 EDT Ambulatory Visit Summaryon 0 05-12-2024 Ambulatory Visit [...] BMI 23.0-23.9, adult Former smoker Pickup at [facility]/pharmacy #[id number] Changed albuterol (albuterol 0.083% Inh Misty 3 [...] 2 Inhalation Inhalation Every day Pharmacy Information [facility]/pharmacy #[id number]: [address], [place] [phone] Allergies No Known Allergies Problems Ongoing - [...] for choosing us for your care. Normal [facility] Family Medicine Office/Clini c Noteon 05-12-2024 Family Medicine Office/Clinic Note Family Medicine Office/Clinic Note HPI Staff Sai is a 53 year old female presenting for TCM follow up TCM: Hospital: [facility] Admission date: 05/05/24 Discharge date: 05/08/24 [...] q6hr for wheezing, 60 EA, Refill(s) 1, [facility]/pharmacy #[id number], 169, cm, 05/12/24 10:51:00 EST, Height/Length Dosing, 68, kg, 05/12/24 10:51:00 EST, Weight Dosing 3. Former smoker (Z87.891: Personal history of nicotine dependence) continue not smoking Ordered: albuterol, 2.5 mg, 3 mL, Inhalation, q6hr for wheezing, 60 EA, Refill(s) 1, [facility]/pharmacy #[id number], 169, cm, 05/12/24 10:51:00 EST, Height/Length Dosing, 68, kg, 05/12/24 10:51:00 EST, Weight Dosing Orders: ondansetron, See Instructions, DISSOLVE 1 TABLET ON THE TONGUE EVERY 8 HOURS NEEDED FOR NAUSEA AND VOMITING, # 24 tab(s), Refills(s) 0, Pharmacy: [facility]/pharmacy #[id number], 169, cm, 02/18/24 11:55:00 EST, Height/Length Dosing, 61.8, kg, 02/18/24 11:55:00 EST, Weight D... promethazine, See Instructions, TAKE 1 TABLET BY MOUTH THREE TIMES A DAY, # 30 tab(s), Refills(s) 1, Pharmacy: [facility]/pharmacy #[id number], 169, cm, 02/18/24 11:55:00 EST, Height/Length Dosing, 61.8, kg, 02/18/24 11:55:00 EST, Weight Dosing promethazine, 25 mg = 1 tab(s), Oral, TID, # 15 tab(s), Refills(s) 0, Pharmacy: [facility]/pharmacy #[id number], 169, cm, 01/16/24 10:14:00 [...] mcg/inh in (more content not included)... Normal [facility] Comment on above: Result Comment: [...] Tetrahydrocannabinol (THC) dependence Refills: 5 Pickup at [facility]/pharmacy #[id number] Unchanged albuterol (albuterol 0.083% Inh Misty 3 [...] or concerns Unchanged omeprazole (omeprazole 20 mg Sadiq) See instructions TAKE 1 CAPSULE BY MOUTH [...] 2 (more content not included)... Normal [facility] Gastroenterology Office/Clin ic Noteon 03-23-2024 [...] bedtime), # 30 tab(s), Refills(s) 5, Pharmacy: [facility]/pharmacy #[id number], 169, cm, 03/23/24 13:17:00 EST, Height/Length Dosing, 64.9, kg, 03/23/24 13:17:00 EST, Weight Dosing 2. Epigastric pain (R10.13: Epigastric pain) Ordered: amitriptyline, 25 mg = 1 tab(s), Oral, Once a day (at bedtime), # 30 tab(s), Refills(s) 5, [id number] 169, cm, 03/23/24 13:17:00 EST, Height/Length Dosing, 64.9, kg, 03/23/24 13:17:00 EST, Weight Dosing 3. Chronic diarrhea (K52.9: Noninfective gastroenteritis and colitis, unspecified) Ordered: amitriptyline, 25 mg = 1 tab(s), Oral, Once a day (at bedtime), # 30 tab(s), Refills(s) 5, Pharmacy: [facility]/pharmacy #[id number], 169, cm, 03/23/24 13:17:00 EST, Height/Length Dosing, 64.9, kg, 03/23/24 13:17:00 EST, Weight Dosing 4. History of colon polyps (Z86.0100: Personal history of colon polyps, unspecified) Ordered: amitriptyline, 25 mg = 1 tab(s), Oral, Once a day (at bedtime), # 30 tab(s), Refills(s) 5, Pharmacy: [facility]/pharmacy #[id number], 169, cm, 03/23/24 13:17:00 EST, Height/Length Dosing, 64.9, kg, 03/23/24 13:17:00 EST, Weight Dosing 5. Schatzki's ring (K22.2: Esophageal obstruction) Ordered: amitriptyline, 25 mg = 1 tab(s), Oral, Once a day (at bedtime), # 30 tab(s), Refills(s) 5, Pharmacy: [facility]/pharmacy #[id number], 169, cm, 03/23/24 13:17:00 EST, Height/Length Dosing, 64.9, kg, 03/23/24 13:17:00 EST, Weight Dosing 6. 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 Tetrahydr (more content not included)... Normal [facility] Comment on above: Result Comment: Elec tronically Signed By: Butch SANDOVAL, Sandoval Frost\.br\Date and Time Signed: 03/23/24 13:45 EST Urine Cultureon 03-15-2024 Bacteria identified Cx Nom (U) 50,000 colonies/ml mixed bacterial skin contaminants including mixed gram negative bacilli - 2 Days PERFORMED BY: [place] [address] PATHOLOGIST CLINICAL MICROBIOLOGIST HARRIS CUELLAR M.D. Normal [facility] Comment on above: Performed By: #### C UU #### [address] Surgical Pathology Reporton 03-02-2024 [place] [address]- Surgical Pathology Report Collected Date/Time: 02/25/2024 10:41 EST Pathologist: Brendon SANDOVAL PhD, [place] Received Date/Time: 02/25/2024 12:53 Sandoval Garces MD, MD, Sandoval Talley Surgical Pathology Report - [...] and gastric biopsy are three fragments of procotr/pink soft tissue measuring 0.1 to 0.3 cm [...] Entire specimen submitted in one cassette. (YC) [facility] Microscopic Description Microscopic examination performed [...] characteristics were determined by the Laboratory of [facility] Surgical Pathology. They have not been cleared or approved by the US Food and Drug Administration. The FDA has determined that such clearance or approval is not necessary. These tests are used for clinical purposes. They should not be regarded as investigational or for research. Appropriate positive and negative controls are performed and are acceptable. Normal [facility] Comment on above: Performed By: #### [id number] #### [facility] [address] [place] [address] Main OR Intraoperative Recor don 02-27-2024 Main OR Intraoperative Record Main OR Intraoperative Record IntraOp Document Type FT Summary Primary Physician: Sandoavl Rae MD Finalized Date/Time: 02/27/24 07:51:23 Pt. Name: SAI PINEDA Domo Lobo/Sex: 1970 Female Med Rec #: [id number] Physician: Sandoval Rae MD Financial #: [id number] Pt. Type: O Room/Bed: / Admit/Disch: 02/25/24 [...] 3 Case Attendee Orlando Gordon CRNA, MD, Chucho Ferreira RN Role Performed GORGE Surgeon - Primary Broadband Engineer - Primary Time In 02/25/24 10:32:00 [...] Given Participants Chucho Allen RN, Mouchli MD, Roque Ball CST, Luis Manuel Jacob Kirstyn K Time Out [...] duodenal polypectomy Primary Procedure Yes Primary Surgeon Sandoval Rae MD Start 02/25/24 10:36:00 Stop 02/25/24 10:46:00 Anesthesia [...] Le (more content not included)... Normal [facility] Discharge Instructionson Discharge Instructions Discharge [...] intake Vomiting Historical (more content not included)... [facility] Comment on above: Result Comment: Elec tronically [...] bpm (FEB 24:) SBP 130 mmHg (FEB 24:14) DBP 75 mmHg (FEB 24:14) Weight 62.2 kg (FEB 24:) General: in Nad Abdomen: Soft, NTND Impression and Plan Diagnosis: Nausea, vomiting, and epigastric pain -EGD [facility] Main OR PACU II Recordon Main OR PACU II Record Main OR PACU II Record PACU Phase II Document Type FT Summary Primary Physician: Sandoval Rae MD Finalized Date/Time: 02/25/24 11:30:19 Pt. Name: SAI PINEDA /Sex: 1970 Female Med Rec #: [id number] Physician: Sandoval Rae MD Financial #: [id number] Pt. Type: O Room/Bed: / Admit/Disch: 02/25/24 [...] Signed By: Christin Hensley I 02/25/24 11:30 [facility] Main OR Preoperative Recordo n 02-25-2024 Main OR Preoperative Record Main OR Preoperative Record Holding Area Document Type FT Summary Primary Physician: Sandoval Rae MD Finalized Date/Time: 02/25/24 09:16:52 Pt. Name: SAI PINEDA /Sex: 1970 Female Med Rec #: [id number] Physician: Sandoval Rae MD Financial #: [id number] Pt. Type: O Room/Bed: / Admit/Disch: 02/25/24 [...] Mely Montilla RN 02/25/24 09:16 Normal [facility] Operative Reporton Operative Report Operative [...] day(s), # 56 tab(s), Refills(s) 0, Pharmacy: [facility]/pharmacy #[id number], 169, cm, 02/21/24 8:47:00 EST, Height/Length Dosing, 62.2, kg, 02/21/24 8:47:00 EST, Weight Dosing Questran 4 g/9 g oral powder: = 1 packet(s), Oral, BID, # 60 EA, Refills(s) 2, Pharmacy: [facility]/pharmacy #[id number], 169, cm, 01/16/24 10:14:00 EDT, Height/Length Dosing, 63.9, kg, 01/16/24 10:14:00 EDT, Weight Dosing Spiriva Respimat 60 ACT 2.5 mcg/inh inhalation aerosol: = 2 inh, Inhalation, Daily, # 4 gm, Refills(s) 11, Pharmacy: [facility]/pharmacy #[id number], 169.7, cm, 11/26/23 15:32:00 EDT, Height/Length Dosing, 62.1, kg, 11/26/23 15:32:00 EDT, Weight Dosing Zofran 4 mg Tab: 4 mg = 1 tab(s), Oral, q8hr, PRN Nausea, # 10 tab(s), Refills(s) 0, [id number], 173, cm, 04/26/20 13:07:00 EST, Height/Length Dosing, 52.8, kg, 04/26/20 13:07:00 EST, Weight Dosing Zofran ODT 4 mg Tab-Dis: 4 mg = 1 tab(s), Oral, TID, # 15 tab(s), Refills(s) 0, [id number], 172, cm, 09/24/23 13:02:00 EDT, Height/Length Dosing, 61.2, kg, 09/24/23 13:02:00 EDT, Weight Dosing Zofran ODT 8 mg Tab-Dis: 8 mg = 1 tab(s), SubLingual, q8hr, PRN Nausea/Vomiting, # 24 tab(s), Refills(s) 0, [id number], 169, cm, 01/16/24 10:14:00 EDT, Height/Length Dosing, 63.9, kg, 01/16/24 10:14:00 EDT, Weight Dosing cloNIDine 0.2 mg Tab: 0.2 mg = 1 tab(s), Oral, Bedtime, # 30 tab(s), Refills(s) 1, [id number], 173, cm, 05/24/20 14:42:00 EST, Height/Length Dosing, 50.1, kg, 05/24/20 14:42:00 EST, Weight Dosing colestipol 1 g Tab: 2 gm = 2 tab(s), Oral, BID, with a full glass of water, # 120 tab(s), Refills(s) 1, [id number], 169, cm, 01/16/24 10:14:00 EDT, Height/Length Dosing, 63.9, kg, 01/16/24 10:14:00 EDT, Weight Dosing hydrOXYzine hydrochloride 50 mg oral tablet: 50 mg = 1 tab(s), Oral, TID, PRN as needed for anxiety, # 30 tab(s), Refills(s) 0, [id number], 173, cm, 04/26/20 13:07:00 EST, Height/Length Dosing, 52.8, kg, 04/26/20 13:07:00 EST, Weight Dosing lamotrigine 25 mg Tab: See Instructions, TAKE 1 TABLET BY MOUTH EVERY DAY IN THE AFTERNOON, # 30 tab(s), Refills(s) 0, Pharmacy: [facility] STORE [facility], 169.7, cm, 11/26/23 15:32:00 EDT, Height/Length Dosing, 62.1, kg, 11/26/23 15:32:00 EDT, Weight Dosing mirtazapine 7.5 mg oral tablet: 7.5 mg = 1 tab(s), Oral, Bedtime, # 30 tab(s), Refills(s) 0, [id number], 169.7, cm, 10/03/23 9:38:00 EDT, Height/Length Dosing, 62.5, kg, 10/03/23 9:38:00 EDT, Weight Dosing omeprazole 20 mg Cap-DR: See Instructions, TAKE 1 CAPSULE BY MOUTH EVERY DAY, # 30 cap(s), Refills(s) 0, Pharmacy: [facility]ORE [facility], 169, cm, 02/21/24 8:47:00 EST, Height/Length Dosing, 62.2, kg, 02/21/24 8:47:00 EST, Weight Dosing ondansetron 4 mg Dis Tab: 4 mg = 1 tab(s), Oral, q6hr, PRN Nausea/Vomiting, # 30 tab(s), Refills(s) 0, [facility] #[id number], 169.7, cm, 11/26/23 15:32:00 EDT, Height/Length Dosing, 62.1, kg, 11/26/23 15:32:00 EDT, Weight Dosing ondansetron 8 mg Dis Tab: See Instructions, DISSOLVE 1 TABLET ON THE TONGUE EVERY 8 HOURS NEEDED FOR NAUSEA AND VOMITING, # 24 tab(s), Refills(s) 0, [id number] 169, cm, 02/18/24 11:55:00 EST, Height/Length Dosing, 61.8, kg, 02/18/24 11:55:00 EST, Weight D... promethazine 25 mg Tab: 25 mg = 1 tab(s), Oral, TID, # 15 tab(s), Refills(s) 0, Pharmacy: [facility]/pharmacy #[id number], 169, cm, 01/16/24 10:14:00 EDT, Height/Length Dosing, 63.9, kg, 01/16/24 10:14:00 EDT, Weight Dosing promethazine 25 mg Tab: See Instructions, TAKE 1 TABLET BY MOUTH THREE TIMES A DAY, # 30 tab(s), Refills(s) 1, Pharmacy: [facility]/pharmacy #[id number], 169, cm, 02/18/24 11:55:00 EST, Height/Length Dosing, 61.8, kg, 02/18/24 11:55:00 EST, Weight Dosing Documented Medications Documented Protonix 40 mg Tab-DR: Oral, 0 Refill(s), Refills(s) 0 Spiriva Respimat 10 ACT 2.5 mcg/inh inhalation aerosol: = 2 puff(s), Inhalation, Daily, Refi (more content not included)... Normal [facility] Comment on above: Result Comment: Elec tronically Signed By: Butch SANDOVAL, Sandoval Frost\.br\Date and Time Signed: 02/25/24 10:51 EST Other Comment: Linda mendosa Attachment - attachment storage system not supported [id number] Can be viewed in source systemMissing Attachment - attachment storage system not supported [id number] Can be viewed in source systemMissing Attachment - attachment storage system not supported [id number] Can be viewed in source systemMissing Attachment - attachment storage system not supported [id number] Can be viewed in source systemMissing Attachment - attachment storage system not supported [id number] Can be viewed in source systemMissing Attachment - attachment storage system not supported [id number] Can be viewed in source systemMissing Attachment - attachment storage system not supported [id number] Can be viewed in source systemMissing Attachment - attachment storage system not supported [id number] Can be viewed in source systemMissing Attachment - attachment storage system not supported [id number] Can be viewed in source systemMissing Attachment - attachment storage system not supported [id number] Can be viewed in source system Ambulatory [...] inhalation aerosol) (more content not included)... Normal [facility] Gastroenterology Office/Clin ic Noteon 02-21-2024 [...] capsule. (Had one completed at [facility] 2021)- results below Last visit w/ Dr Rae History of Present Illness pt with weight loss, throw up, and diarrhea capsule endoscopy done at [facility] and was found to have stomach going [...] Hyperplastic polyp. Small bowel enteroscopy 04/04/22 @ [facility] Findings: Patchy atrophic mucosa was found in [...] clips were successfully placed (MR conditional). 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 There was no bleeding at the end of the maneuver. Exam of the jejunum was otherwise normal. Impression: - Atrophic mucosa. - Jejunal polyp(s). Resected a (more content not included)... Normal [facility] Comment on above: Result Comment: Elec tronically Signed By: Butch SANDOVAL, Sandoval Frost\.br\Date and Time Signed: 02/21/24 09:10 EST Ambulatory Visit Summaryon 1 04-20-2023 Ambulatory Visit Summary Ambulatory Visit Summary PINEDA, SAI Oliveros :1970 Visit Date:02/18/2024 Ambulatory Visit [...] Someone Will Contact You Regarding These Appointments [facility] External Ambulatory Referral, Neurology, [place] office, 02/18/24 [...] NEEDED FOR NAUSEA AND VOMITING Pickup at [facility]/pharmacy #[id number] Unchanged ondansetron (Zofran 4 [...] MOUTH THREE TIMES A DAY Pickup at [facility]/pharmacy #[id number] Pharmacy Information [facility]/pharmacy #[id number]: [address], [place] [phone] Allergies No Known Allergies Problems Ongoing - [...] of (more content not included)... Normal [facility] Family Medicine Office/Clini c Noteon 12-03-2024 Family Medicine Office/Clinic Note Family Medicine Office/Clinic Note Chief Complaint N&V & Diarrhea HPI Staff Sai is a 53 year old female presenting with diarrhea, vomiting. AMILCAR 11/27/23 pt here for the same reason. Sent home with stool sample supplies. Pt did see [facility] 01/16/24 for diarrhea & N&V. Tx'd w/[facility] did order CTE, however pt no [...] neuro consult. her mother has dementia. Ordered: [facility] External Ambulatory Referral 2. Maternal family history of dementia (Z81.8: Family history of other mental and behavioral disorders) mother has dementia Ordered: [facility] External Ambulatory Referral 3. Nausea and vomiting [...] VOMITING, # 24 tab(s), Refills(s) 0, Pharmacy: [facility]/pharmacy #[id number], 169, cm, 02/18/24 11:55:00 EST, Height/Length Dosing, 61.8, kg, 02/18/24 11:55:00 EST, Weight D... promethazine, See Instructions, TAKE 1 TABLET BY MOUTH THREE TIMES A DAY, # 30 tab(s), Refills(s) 1, Pharmacy: [facility]/pharmacy #[id number], 169, cm, 02/18/24 11:55:00 [...] (04/19 (more content not included)... Normal [facility] Comment on above: Result Comment: [...] ago. Had capsule done at [facility] and surgery. Dr Tiffani Morales. Constant? Or [...] diarrhea capsule endoscopy done at [facility] and was found to have stomach going [...] TID, (more content not included)... Normal [facility] Comment on above: Result Comment: [...] to get in, will send referral to [facility] 2. Vomiting (R11.10: Vomiting, unspecified) pt is asking for refill on omeprazole 3. Smoker (F17.200: Nicotine dependence, unspecified, uncomplicated) consider not smoking 4. BMI 21.0-21.9, adult (Z68.21: Body mass index [BMI] 21.0-21.9, adult) BMI education given Orders: lamotrigine, See Instructions, TAKE 1 TABLET BY MOUTH EVERY DAY IN THE AFTERNOON, # 30 tab(s), Refills(s) 0, [id number], 169.7, cm, 10/03/23 9:38:00 EDT, Height/Length Dosing, 62.5, kg, 10/03/23 9:38:00 EDT, Weight Dosing lamotrigine, See Instructions, TAKE 1 TABLET EVERY MORNING, # 30 tab(s), Refills(s) 0, [id number], 169.7, cm, 10/03/23 9:38:00 EDT, Height/Length Dosing, 62.5, kg, 10/03/23 9:38:00 EDT, Weight Dosing lamotrigine, See Instructions, TAKE 1 TABLET BY MOUTH EVERY DAY IN THE AFTERNOON, # 30 tab(s), Refills(s) 0, Pharmacy: [facility] ST[id number], 169.7, cm, 11/26/23 15:32:00 EDT, Height/Length Dosing, 62.1, kg, 11/26/23 15:32:00 EDT, Weight Dosing nitrofurantoin, 100 mg = 1 cap(s), Oral, BID, X 7 day(s), # 14 cap(s), Refills(s) 0, [id number], 169.7, cm, 11/26/23 15:32:00 EDT, Height/Length Dosing, 62.1, kg, 11/26/23 15:32:00 EDT, Weight Dosing omeprazole, 20 mg = 1 cap(s), Oral, Daily, # 30 cap(s), Refills(s) 0, [id number], 169.7, cm, 10/03/23 9:38:00 EDT, Height/Length Dosing, 62.5, kg, 10/03/23 9:38:00 EDT, Weight Dosing omeprazole, See Instructions, TAKE 1 CAPSULE BY MOUTH EVERY DAY, # 30 cap(s), Refills(s) 0, Pharmacy: [facility] [id number], 169.7, cm, 11/26/23 15:32:00 EDT, Height/Length Dosing, 62.1, kg, 11/26/23 15:32:00 EDT, Weight Dosing tiotropium, = 2 inh, Inhalation, Daily, # 4 gm, Refills(s) 11, [id number], 169.7, cm, 11/26/23 15:32:00 EDT, Height/Length [...] Or (more content not included)... Normal [facility] Comment on above: Result Comment: Elec tronically Signed By: Lala Horner\.br\Date and Time Signed: 11/27/23 17:39 EDT Ambulatory Visit Summaryon 0 11-26-2023 Ambulatory Visit Summary Ambulatory Visit Summary PINEDACARISSA MICHAELA Domo :1970 Visit Date:11/26/2023 Ambulatory Visit Instructions Your [...] hours as needed for Nausea/Vomiting Pickup at [facility]/pharmacy #[id number] Unchanged ondansetron (Zofran 4 [...] 2 Puffs Inhalation Every day Pharmacy Information [facility]/pharmacy #[id number]: [address] [place], [place] [phone] Allergies No Known Allergies Problems Ongoing - [...] for choosing us for your care. Normal [facility] ED Note-Physicianon 10-21-19 ED Note-Physician [...] NS 1000 ml Bolus, 1000 mL, IV [id number] [F] 25 mg + Sodium Chloride 0.9% [...] CHANCE SERRANO In 3 days 09/27/[address] [place] [phone] Business (1) Additional Instructions: Patient Education Urinary [...] made to ensure accuracy, however, inadvertently computerized assistant grocery mistakes may be present. Appropriate healthcare PPE [...] inadequa (more content not included)... Normal [facility] Comment on above: Result Comment: [...] visit: month or so ago Last provider: [facility] Any recent labs: IN ER 7/ Health [...] adult 10/11/19 (more content not included)... Normal [facility] Comment on above: Result Comment: [...] Locations R1: This test was performed at: [facility], [address] [place] [address], [phone] , [place], Normal [facility] Comment on above: Performed By: #### 2 [id number] ####[facility] [address] [place] [address] CHEMISTRYOrdered By: SYSTEM SYSTEM on 09-24-2023 Albumin [...] Bilirubin Ql (U) Negative Normal Negativemg/ dL [facility] UA Auto SS Clarity (U) Clear (09/24/23 1:19 PM) Normal Clear [facility] UA Auto SS Color (U) Yellow 1 (09/24/23 1:19 PM) Normal Yellow [facility] UA Auto SS Comment on above: Interpretive Data: M icroscopic readings are only performed on those samples that meet specific criteria set forth by [facility]. Epithelial cells.squamous Auto (Urine sed) [#/Area] 0-2 graded/HPF Invalid Interpretation Code [facility] UA Auto SS Glucose Ql (U) Negative [...] 05-08-2022 [facility] Telephone (GASTA5) SAI PINEDA ([id number]) 1970 F Date Time Provider Department 05/08/22 TIFFANI MORALES GASTA5 During your visit today, we recorded the following information about you: Eva Chong 05/08/2022 10:45 AM Signed 05/08/22 Patient calling to see if Dr Morales will write her a script for Zofran nausea medication strips. [facility] in [place] [phone] Eva Magda Covarrubias RN 05/11/2022 10:05 AM Signed Called pt and let her know Dr. Morales said if med helping her symptoms, she was fine to re-order and she did. Pt said it has been helping very much. Has follow up appt scheduled in mid May but reviewed with something changes to let MD know. Magda Covarruibas RN Allergies As of Date: 05/08/2022 (No Known Allergies) Date Reviewed: 04/04/2022 Reviewed by: Eduardo Harrington RN - Fully Assessed Reason for Visit: Patient Question [8591] Order(s):ondansetron orally disintegrating (ZOFRAN ODT) 8 mg [...] Status:Closed by TIFFANI MORALES on 05/10/22 Normal [facility] COPPER, SERUM or PLASMAon Copper, Serum 129 ug/dL Normal 80-158 [facility] Comment on above: Result Comment: Dete ction Limit = 5 Performed By: #### C OPPER #### [facility] [address] [place] [address] Dr. Prince Olivas FATTY ACID PROFILEon 023 a-Linolenic Acid C18:3w3 81 nmol/mL Normal 20-200 [facility] Comment on above: Performed By: #### M MA2 #### [facility] [address] [place] [address] Dr. Prince Olivas Arachidic Acid C20:0 31 nmol/mL Normal 8-43 [facility] Comment on above: Performed By: #### M MA2 #### [facility] [address] [place] [address] [address] Prince Olivas Arachidonic Acid, C20:4w6 943 nmol/mL Normal 310-1420 [facility] Comment on above: Performed By: #### M MA2 #### [facility] [address] [place] [address] [address] Prince Olivas DHA, C22:6w3 85 nmol/mL Normal 45-365 [facility] Comment on above: Performed By: #### M MA2 #### [facility] [address] [place] [address] Dr. Prince Olivas Docosenoic Acid C22:1 5 nmol/mL Normal 1-10 [facility] Comment on above: Performed By: #### M MA2 #### [facility] [address] [address] [address] Prince Olivas DPA, C22:5w3 58 nmol/mL Normal 13-75 [facility] Comment on above: Performed By: #### M MA2 #### [facility] [address] [address] [address] Prince Olivas DPA, C22:5w6 18 nmol/mL Normal 6-55 [facility] Comment on above: Performed By: #### M MA2 #### [facility] [address] [address] [address] Prince Olivas DTA, C22:4w6 28 nmol/mL Normal 10-40 [facility] Comment on above: Performed By: #### Marine MA2 #### [facility] [address] [address] [address] Prince Olivas EER Fatty Acid Profile, [facility] See Note Normal [facility] Comment on above: Result Comment: Auth orized individuals can access the [employer] Enhanced Report using the following link: [email or web address] Performed By: #### M MA2 #### [facility] [address] [address] [address] Prince Olivas EPA, C20:5w3 90 nmol/mL Normal 8-130 [facility] Comment on above: Performed By: #### M MA2 #### [facility] [address] [address] [address] Prince Olivas g-Linolenic Acid C18:3w6 139 nmol/mL Critically high 10-120 [facility] Comment on above: Performed By: #### Marine MA2 #### [facility] [address] [address] [address] Prince Olivas c-p-Yxaiwryft Acid C20:3w6 211 nmol/mL Normal 45-340 [facility] Comment on above: Performed By: #### M MA2 #### [facility] [address] [place] [address] Dr. Prince Olivas Hexadecenoic Acid C16:1w9 56 nmol/mL Normal 14-95 [facility] Comment on above: Performed By: #### M MA2 #### [facility] [address] [address] [address] Prince Olivas Image . Normal [facility] Comment on above: Performed By: #### M MA2 #### [facility] [address] [place], [place] [address] Dr. Prince Olivas Interp, Fatty Acids Profile SP See Note Normal [facility] Comment on above: Result Comment: Incr eased concentration of omega-6 gamma- linolenic acid, possibly reflecting dietary artifacts. INTERPRETIVE INFORMATION: Fatty Acids Profile, Essential Ser/Plas This test does not screen for disorders of peroxisomal biogenesis/function. This test was developed and its performance characteristics determined by [facility]. It has not been cleared or approved by the [place] Food and Drug Administration. This test was performed in a CLIA certified laboratory and is intended for clinical purposes. Performed By: #### M MA2 #### [facility] [address] [place] [address] Dr. Prince Olivas Lauric Acid C12:0 12 nmol/mL Normal 1-200 [facility] Comment on above: Performed By: #### M MA2 #### [facility] [address] [place] [address] Dr. Prince Olivas Linoleic Acid C18:2w6 3844 nmol/mL Normal 6293-3575 [facility] Comment on above: Performed By: #### M MA2 #### [facility] [address] [address] [address] Prince Olivas Gibson Acid C20:3w9 29 nmol/mL Normal 1-35 [facility] Comment on above: Performed By: #### M MA2 #### [facility] [address] [place] [address] [address] [address] Prince Olivas Myristic Acid C14:0 178 nmol/mL Normal 20-520 [facility] Comment on above: Performed By: #### M MA2 #### [facility] [address] [address] [address] Prince Olivas Nervonic Acid C24:1w9 138 nmol/mL Normal 35-145 [facility] Comment on above: Performed By: #### M MA2 #### [facility] [address] [address] [address] Prince Olivas Oleic Acid C18:1w9 2898 nmol/mL Normal 740-3900 [facility] Comment on above: Performed By: #### M MA2 #### [facility] [address] [address] [address] Prince Olivas Palmitic Acid C16:0 3316 nmol/mL Normal 1998-3993 [facility] Comment on above: Performed By: #### M MA2 #### [facility] [address] [address] [address] Prince Olivas Palmitoleic Acid C16:1w7 355 nmol/mL Normal 35-580 [facility] Comment on above: Performed By: #### M MA2 #### [facility] [address] [address] [address] Prince Olivas Stearic Acid C18:0 1072 nmol/mL Normal 280-1250 [facility] Comment on above: Performed By: #### M MA2 #### [facility] [address] [address] [address] Prince Olivas Total Fatty Acids 13.7 mmol/L Normal 4.5-15.0 [facility] Comment on above: Performed By: #### M MA2 #### [facility] [address] [place] [address] [address] Prince Olivas Total Monounsaturated Acid 3.6 mmol/L Normal 0.9-4.7 [facility] Comment on above: Performed By: #### M MA2 #### [facility] [address] [address] [address] Prince Olivas Total Polyunsaturated Acid 5.5 mmol/L Normal 2.1-6.2 [facility] Comment on above: Performed By: #### M MA2 #### [facility] [address] [place], [place] [address] Dr. Prince Olivas Total Saturated Acid 4.6 mmol/L Normal 1.5-5.3 [facility] Comment on above: Performed By: #### M MA2 #### [facility] [address] [place] [address] [address] Prince Olivas Total w3 0.31 mmol/L Normal 0.12-0.55 [facility] Comment on above: Performed By: #### M MA2 #### [facility] [address] [address] [address] Prince Olivas Total w6 5.2 mmol/L Normal 1.8-5.7 [facility] Comment on above: Performed By: #### M MA2 #### [facility] [address] [place] [address] [address] Prince Olivas Triene Tetraene Ratio 0.031 Normal 0.004-0.051 [facility] Comment on above: Performed By: #### M MA2 #### [facility] [address] [place] [address] [address] Prince Olivas Vaccenic Acid C18:1w7 149 nmol/mL Normal 50-250 [facility] Comment on above: Performed By: #### M MA2 #### [facility] [address] [place] [address] [address] Prince Olivas VITAMIN Aon 04-06-2022 Vitamin A 54.9 ug/dL Normal 20.1-62.0 [facility] Comment on above: Result [...] Administration. Performed By: #### M MA2 #### [facility] [address] [place] [address] [address] Prince Olivas VITAMIN Luciano 04-06-2022 Vitamin E (Alpha T) 9.9 mg/L Normal 7.0-25.1 [facility] Comment on above: Performed By: #### S ELNIUM #### [facility] [address] [address] [address] Prince Olivas Vitamin E (Gamma T) 2.1 mg/L Normal 0.5-5.5 [facility] Comment on above: Result Comment: Refe rence intervals for alpha and gamma- tocopherol determined from National Health and Nutrition Examination Survey, 1099-4005. Individuals with alpha-tocopherol levels less than 5.0 mg/L are considered vitamin E deficient. Performed By: #### S ELNIUM #### [facility] [address] [address] [address] Prince Olivas ZINC SERUM OR PLASMAon 04-06 Zinc, Plasma or Serum 75 ug/dL Normal 44-115 [facility] Comment on above: Result Comment: Dete ction Limit = 5 Performed By: #### L IPID, CMP #### [facility] [address] [address] [address] Prince Olivas CNPNon 04-05-2022 CNPN Telephone (GASTA5) SAI PINEDA ([id number]) 1970 F Date Time Provider Department 04/05/22 [...] Status:Closed by TIFFANI MORALES on 04/05/22 Normal [facility] METHYLMALONIC ACID (MMA)on 0 04-05-2022 Methylmalonic Acid, Serum 498 nmol/L Critically high 0-378 [facility] Comment on above: Performed By: #### M MA2 #### [facility] [address] [address] [address] Prince Olivas ANES POSTPROC EVALon 023 ANES POSTPROC EVAL HNO ID: [id number] Author: Altagracia Salvador MD Service: ? Author [...] Morales MD; Altagracia Salvador MD; Frederick Chaves APRN.TAXONOMY TEACHER Responsible Provider: Altagracia Salvador MD Anesthesia Type: [...] with this procedure. Documented by Frederick Chaves APRN.TAXONOMY TEACHER 04/04/2022 3:31 PM EST SIGNATURE: Altagracia Salvador MD PATIENT NAME: Sai Pineda DATE: April 04, 2022 TIME: 3:51 PM CSN: [id number] Normal [facility] ANES PRE-OPon 04-04-2022 ANES PRE-OP HNO ID: [id number] Author: Altagracia Salvador MD Service: ? Author Type: Anesthesiologist Type: Anesthesia Preprocedure Evaluation Filed: 04/04/2022 12:56 PM Note Text: ANESTHESIOLOGY DAY OF SURGERY NOTE : 1970 Procedure Information Date/Time: 04/04/22 1300 Scheduled providers: Tiffani Morales MD; Altagracia Salvador MD; Frederick Chaves APRN.TAXONOMY TEACHER Procedure: ENTEROSCOPY Location: Gastroenterology Estimated body mass [...] April 04, 2022 TIME: 12:55 PM CSN: [id number] Normal [facility] ENTEROSCOPYon 04-04-2022 [facility] HISTORY PHYSICALon 3 HISTORY PHYSICAL HNO ID: [id number] Author: Tiffani Morales MD Service: Gastroenterology Author [...] Sai Pineda DATE: 04/04/2022 TIME: 1302 Normal [facility] METHYLMALONIC ACID (MMA)on 0 04-04-2022 Methylmalonic Acid, Serum 397 nmol/L Critically high 0-378 [facility] Comment on above: Performed By: #### M MA2 #### [facility] [address] [address] [address] Prince Olivas NURSING PROGon 04-04-2022 NURSING PROG HNO ID: [id number] Author: Eduardo Harrington RN Service: Nursing Author [...] Electronically Signed By: Eduardo Harrington RN Normal [facility] NURSING PROG HNO ID: [id number] Author: Rima Kirk RN Service: Nursing Author [...] Rima Kirk RN In Department: GASTROENTEROLOGY Normal [facility] SELENIUM, PLASMAon 3 Selenium, Serum/Plasma 124 ug/L Normal 93-198 [facility] Comment on above: Performed By: #### S ELNIUM #### [facility] [address] [place] [address] Dr. Prince Olivas SURGICAL PATHOLOGYon 023 CASE REPORT Normal [facility] Comment on above: Order Comment: Speci men Type: TISSUE SPECIMENOrdering Facility: [facility] Address: [address] [place], [place] [phone] Result Comment: Surg ica Pathology Report Case: [id number] Authorizing Provider: Tiffani Morales MD Collected: 04/04/2022 02:57 PM Ordering Location: Gastroenterology Received: 04/04/2022 05:34 PM Pathologist: Gonzalo Lemons MD Specimen: JEJUNUM BIOPSY, polyp: r/o adenoma Performed By: #### S ####[facility] [id number] [address] [place] FINAL DIAGNOSIS Normal [facility] Comment on above: Order Comment: Speci men Type: TISSUE SPECIMENOrdering Facility: [facility] Address: [address] [place] [address] Result Comment: Santosh monsivais, polyp, biopsy: - Small intestine with gastric heterotopia. - Negative for dysplasia and malignancy. Performed By: #### S ####[facility] [id number] [address] FINAL PERFORMING LAB Normal [facility] Comment on above: Order Comment: Speci men Type: TISSUE SPECIMENOrdering Facility: [facility] Address: [address] [place] [address] Result Comment: Diag nostic interpretation performed at [facility], [facility] [address] CLIA# [id number] Travel Insurance Agent: Constantin Quevedo M.D. Performed By: #### S ####[facility] LAB[facility] [id number] [address] STATES OF [facility] GROSS DESCRIPTION Normal [facility] Comment on above: Order Comment: Speci men Type: TISSUE SPECIMENOrdering Facility: [facility] Address: [address] [place] [address] Result Comment: Santosh MONSIVAIS BIOPSY Received in formalin is a segment of proctor polypoid tissue measuring 1.2 x 1.0 x 0.4 cm. No stalk is noted. The line of resection is noted. The specimen is bisected and totally submitted in formalin in one cassette. Gross examination performed at [facility], [address] 04/04/2022 10:13 PM Performed By: #### S ####[facility] LABCLIA [id number] [place] [address] [place] FOLATE, RBC AND SERUMon 03-18 Folate 7.5 ng/mL Normal >3.0 [facility] Comment on above: Result Comment: A se rum folate concentration of less than 3.1 ng/mL is considered to represent clinical deficiency. Performed By: #### L IPID, CMP #### [facility] [address] [place] [address] Dr. Prince Olivas Folate, Hemolysate 297.0 ng/mL Normal Not Estab. [facility] Comment on above: Performed By: #### L IPID, CMP #### [facility] [address] [place] [address] Dr. Prince Olivas Folate, RBC 721 ng/mL Normal >498 [facility] Comment on above: Performed By: #### L IPID, CMP #### [facility] [address] [place] [address] Dr. Prince Olivas Hematocrit (Bld) [Volume fraction] 41.2 % Normal 34.0-46.6 [facility] Comment on above: Performed By: #### L IPID, CMP #### [facility] [address] [place] [address] Dr. Prince Olivas CBC AUTO DIFFon 03-31-2022 BASO # 0.1 103/ul Normal 0.0-0.1 [facility] Comment on above: Performed By: #### L IPID, CMP #### [facility] [address] [place] [address] Dr. Prince Olivas Basophils/100 WBC (Bld) 0.6 % Normal 0.2-2.0 [facility] Comment on above: Performed By: #### L IPID, CMP #### [facility] [address] [place] [address] Dr. Prince Olivas EO # 0.2 103/ul Normal 0.0-0.7 [facility] Comment on above: Performed By: #### L IPID, CMP #### [facility] [address] [place] [address] Dr. Prince Olivas Eosinophils/100 WBC (Bld) 2.9 % Normal 0.9-7.0 [facility] Comment on above: Performed By: #### L IPID, CMP #### [facility] [address] [place] [address] Dr. Prince Olivas Erythrocyte distribution width (RBC) [Ratio] 13.2 % Normal 11.0-15.0 [facility] Comment on above: Performed By: #### L IPID, CMP #### [facility] [address] [place] [address] Dr. Prince Olivas Hematocrit (Bld) [Volume fraction] 41.1 % Normal 36.0-48.0 [facility] Comment on above: Performed By: #### L IPID, CMP #### [facility] [address] [place] [address] Dr. Prince Olivas Hemoglobin (Bld) [Mass/Vol] 13.6 g/dL Normal 12.0-16.0 [facility] Comment on above: Performed By: #### L IPID, CMP #### [facility] [address] [place] [address] Dr. Prince Olivas IG # 0.04 10e3/ul Critically high 0.00-0.03 [facility] Comment on above: Performed By: #### L IPID, CMP #### [facility] [address] [place] [address] Dr. Prince Olivas IG % 0.5 % Normal 0.0-0.5 [facility] Comment on above: Performed By: #### L IPID, CMP #### [facility] [address] [place] [address] Dr. Prince Olivas LYMPH # 2.5 103/ul Normal 1.2-3.8 [facility] Comment on above: Performed By: #### L IPID, CMP #### [facility] [address] [place] [address] Dr. Prince Olivas Lymphocytes/100 WBC (Bld) 31.5 % Normal 20.5-60.0 [facility] Comment on above: Performed By: #### L IPID, CMP #### [facility] [address] [place] [address] Dr. Prince Olivas MANUAL DIFF REQ NO Normal [facility] Comment on above: Performed By: #### L IPID, CMP #### [facility] [address] [place] [address] Dr. Prince Olivas MCH (RBC) [Entitic mass] 30.5 pg Normal 26.7-34.0 [facility] Comment on above: Performed By: #### L IPID, CMP #### [facility] [address] [place] [address] Dr. Prince Olivas MCHC (RBC) [Mass/Vol] 33.1 g/dL Normal 29.9-35.2 [facility] Comment on above: Performed By: #### L IPID, CMP #### [facility] [address] [place] [address] Dr. Prince Olivas MCV (RBC) [Entitic vol] 92.2 fL Normal 81.0-99.0 [facility] Comment on above: Performed By: #### L IPID, CMP #### [facility] [address] [place] [address] Dr. Prince Olivas MONO # 0.6 103/ul Normal 0.3-0.8 [facility] Comment on above: Performed By: #### L IPID, CMP #### [facility] [address] [place] [address] Dr. Prince Olivas Monocytes/100 WBC (Bld) 7.0 % Normal 1.7-12.0 [facility] Comment on above: Performed By: #### L IPID, CMP #### [facility] [address] [place] [address] Dr. Prince Olivas NEUT # 4.5 103/ul Normal 1.4-6.5 [facility] Comment on above: Performed By: #### L IPID, CMP #### [facility] [address] [place] [address] Dr. Prince Olivas Neutrophils/100 WBC (Bld) 57.5 % Normal 43.0-75.0 [facility] Comment on above: Performed By: #### L IPID, CMP #### [facility] [address] [place] [address] Dr. Prince Olivas Platelet mean volume (Bld) [Entitic vol] 11.5 fL Normal 9.5-13.5 [facility] Comment on above: Performed By: #### L IPID, CMP #### [facility] [address] [place] [address] Dr. Prince Olivas PLT 224 103/ul Normal 150-450 [facility] Comment on above: Performed By: #### L IPID, CMP #### [facility] [address] [place] [address] Dr. Prince Olivas RBC 4.46 106/ul Normal 4.20-5.40 [facility] Comment on above: Performed By: #### L IPID, CMP #### [facility] [address] [place] [address] Dr. Prince Olivas WBC 7.9 103/ul Normal 4.0-11.0 [facility] Comment on above: Performed By: #### L IPID, CMP #### [facility] [address] [place] [address] Dr. Prince Olivas CRPon 03-31-2022 CRP [Mass/Vol] mg/L Normal <=1.0 [facility] Comment on above: Performed By: #### C OPPER #### [facility] [address] [place] [address] Dr. Prince Olivas FERRITINon 03-31-2022 Ferritin [Mass/Vol] 99.0 ng/mL Normal 8.0-252.0 [facility] Comment on above: Performed By: #### F ERR, VITB12, VITAD, FETIBC #### [facility] [address] [place] [address] Dr. Prince Olivas IRON AND TIBCon 03-31-2022 % SATURATION 29.3 % Normal [facility] Comment on above: Performed By: #### F ERR, VITB12, VITAD, FETIBC #### [facility] [address] [place] [address] Dr. Prince Olivas Iron [Mass/Vol] 90.0 ug/dL Normal 50.0-170.0 [facility] Comment on above: Performed By: #### F ERR, VITB12, VITAD, FETIBC #### [facility] [address] [place] [address] Dr. Prince Olivas TIBC DIRECT 307.0 ug/dL Normal 250.0-450.0 [facility] Comment on above: Performed By: #### F ERR, VITB12, VITAD, FETIBC #### [facility] [address] [place] [address] Dr. Prince Olivas MAGNESIUMon 03-31-2022 Magnesium [Mass/Vol] 2.0 mg/dL Normal 1.8-2.4 [facility] Comment on above: Performed By: #### C OPPER #### [facility] [address] [place] [address] Dr. Prince Olivsa PHOSPHORUSon 03-31-2022 Phosphate [Mass/Vol] 3.6 mg/dL Normal 2.6-4.7 [facility] Comment on above: Performed By: #### C OPPER #### [facility] [address] [place] [address] Dr. Prince Olivas PROF 14(COMP METB)on 023 Albumin [Mass/Vol] 3.9 g/dL Normal 3.4-5.0 [facility] Comment on above: Performed By: #### C OPPER #### [facility] [address] [place] [address] Dr. Prince Olivas Albumin/Globulin [Mass ratio] 1.3 {ratio} Normal [facility] Comment on above: Performed By: #### C OPPER #### [facility] [address] [place] [address] Dr. Prince Olivas ALP [Catalytic activity/Vol] 75 U/L Normal 46-116 [facility] Comment on above: Performed By: #### C OPPER #### [facility] [address] [place] [address] Dr. Prince Olivas ALT [Catalytic activity/Vol] 19 U/L Normal 14-59 [facility] Comment on above: Performed By: #### C OPPER #### [facility] [address] [place] [address] Dr. Prince Olivas Anion gap [Moles/Vol] 11.3 mmol/L Normal [facility] Comment on above: Performed By: #### C OPPER #### [facility] [address] [place] [address] Dr. Prince Olivas AST [Catalytic activity/Vol] 19 U/L Normal 15-37 [facility] Comment on above: Performed By: #### C OPPER #### [facility] [address] [place] [address] Dr. Prince Olivas Bilirubin [Mass/Vol] 0.3 mg/dL Normal 0.2-1.0 [facility] Comment on above: Performed By: #### C OPPER #### [facility] [address] [place] [address] Dr. Prince Olivas Calcium [Mass/Vol] 9.0 mg/dL Normal 8.5-10.1 [facility] Comment on above: Performed By: #### C OPPER #### [facility] [address] [place] [address] Dr. Prince Olivas Chloride [Moles/Vol] 105 mmol/L Normal 98-107 [facility] Comment on above: Performed By: #### C OPPER #### [facility] [address] [place] [address] Dr. Prince Olivas CO2 [Moles/Vol] 28.9 mmol/L Normal 21.0-32.0 [facility] Comment on above: Performed By: #### C OPPER #### [facility] [address] [place] [address] Dr. Prince Olivas Creatinine [Mass/Vol] 0.79 mg/dL Normal 0.55-1.02 [facility] Comment on above: Performed By: #### C OPPER #### [facility] [address] [place] [address] Dr. Prince Olivas EGFR-AF CYMRAES >60 Normal >=60 [facility] Comment on above: Performed By: #### C OPPER #### [facility] [address] [place] [address] Dr. Prince Olivas EGFR-NON AF CYMRAES >60 Normal >=60 [facility] Comment on above: Performed By: #### C OPPER #### [facility] [address] [address] [address] Prince Olivas Globulin (S) [Mass/Vol] 3.0 g/dL Normal [facility] Comment on above: Performed By: #### C OPPER #### [facility] [address] [address] [address] Prince Olivas Glucose [Mass/Vol] 91 mg/dL Normal 74-106 [facility] Comment on above: Performed By: #### C OPPER #### [facility] [address] [address] [address] Prince Olivas Potassium [Moles/Vol] 4.2 mmol/L Normal 3.5-5.1 [facility] Comment on above: Performed By: #### C OPPER #### [facility] [address] [place] [address] Dr. Prince Olivas Protein [Mass/Vol] 6.9 g/dL Normal 6.4-8.2 [facility] Comment on above: Performed By: #### C OPPER #### [facility] [address] [place] [address] Dr. Prince Olivas Sodium [Moles/Vol] 141 mmol/L Normal 136-145 [facility] Comment on above: Performed By: #### C OPPER #### [facility] [address] [address] [address] Prince Olivas Urea nitrogen [Mass/Vol] 10.0 mg/dL Normal 7.0-18.0 [facility] Comment on above: Performed By: #### C OPPER #### [facility] [address] [address] [address] Prince Olivas Urea nitrogen/Creatinine [Mass ratio] 12.7 mg/mg Normal [facility] Comment on above: Performed By: #### C OPPER #### [facility] [address] [place] [address] Dr. Prince Olivas PROTIMEon 03-31-2022 INR Coag (PPP) [Relative time] 0.94 {INR} Normal [facility] Comment on above: Performed By: #### M MA2 #### [facility] [address] [place] [address] Dr. Prince Olivas INR GUIDELINES SEE BELOW Normal [facility] Comment on above: Result Comment: BRIANNA RED INR: 2.0 - 3.0 CONDITIONS NOT LISTED BELOW 2.5 - 3.5 FOR PROSTHETIC HEART VALVE REPLACEMENT 2.5 - 3.5 RECURRENT THROMBOSIS Performed By: #### M MA2 #### [facility] [address] [place] [address] Dr. Prince Olivas PT Coag (PPP) [Time] 10.0 s Normal 9.0-11.6 [facility] Comment on above: Performed By: #### M MA2 #### [facility] [address] [place] [address] Dr. Prince Olivas TRIGLYCERIDEon 03-31-2022 Triglyceride [Mass/Vol] 103 mg/dL Normal <=150 [facility] Comment on above: Performed By: #### C OPPER #### [facility] [address] [place] [address] Dr. Prince Olivas VITAMIN B12on 03-31-2022 Cobalamin (Vitamin B12) [Mass/Vol] 259.0 pg/mL Normal 193.0-986.0 [facility] Comment on above: Performed By: #### F ERR, VITB12, VITAD, FETIBC #### [facility] [address] [place] [address] Dr. Prince Olivas VITAMIN D 25 OHon 03-31-2022 VIT D 25-OH 49.0 ng/mL Normal [facility] Comment on above: Performed By: #### F ERR, VITB12, VITAD, FETIBC #### [facility] [address] [place] [address] Dr. Prince Olivas VIT D RANGES SEE BELOW Normal [facility] Comment on above: Result Comment: <20 ng/mL Vit D deficient 20 - <30 ng/mL Vit D insufficient 30 - 100 ng/mL Vit D sufficient >100 ng/mL Potential Toxicity Performed By: #### F ERR, VITB12, VITAD, FETIBC #### [facility] [address] [address] [address] Prince Olivas CBC AUTO DIFFon 03-28-2022 BASO # 0.1 103/ul Normal 0.0-0.1 [facility] Comment on above: Performed By: #### S ELNIUM #### [facility] [address] [address] [address] Prince Olivas Basophils/100 WBC (Bld) 0.6 % Normal 0.2-2.0 [facility] Comment on above: Performed By: #### S ELNIUM #### [facility] [address] [address] [address] Prince Olivas EO # 0.2 103/ul Normal 0.0-0.7 [facility] Comment on above: Performed By: #### S ELNIUM #### [facility] [address] [place] [address] Dr. Prince Olivas Eosinophils/100 WBC (Bld) 2.4 % Normal 0.9-7.0 [facility] Comment on above: Performed By: #### S ELNIUM #### [facility] [address] [place] [address] Dr. Prince Olivas Erythrocyte distribution width (RBC) [Ratio] 13.2 % Normal 11.0-15.0 [facility] Comment on above: Performed By: #### S ELNIUM #### [facility] [address] [address] [address] Prince Olivas Hematocrit (Bld) [Volume fraction] 44.3 % Normal 36.0-48.0 [facility] Comment on above: Performed By: #### S ELNIUM #### [facility] [address] [address] [address] Prince Olivas Hemoglobin (Bld) [Mass/Vol] 13.8 g/dL Normal 12.0-16.0 [facility] Comment on above: Performed By: #### S ELNIUM #### [facility] [address] [place] [address] Dr. Prince Olivas IG # 0.02 10e3/ul Normal 0.00-0.03 [facility] Comment on above: Performed By: #### S ELNIUM #### [facility] [address] [place] [address] Dr. Prince Olivas IG % 0.2 % Normal 0.0-0.5 [facility] Comment on above: Performed By: #### S ELNIUM #### [facility] [address] [place] [address] Dr. Prince Olivas LYMPH # 3.1 103/ul Normal 1.2-3.8 [facility] Comment on above: Performed By: #### S ELNIUM #### [facility] [address] [place] [address] Dr. Prince Olivas Lymphocytes/100 WBC (Bld) 34.8 % Normal 20.5-60.0 [facility] Comment on above: Performed By: #### S ELNIUM #### [facility] [address] [place] [address] Dr. Prince Olivas MANUAL DIFF REQ NO Normal [facility] Comment on above: Performed By: #### S ELNIUM #### [facility] [address] [place] [address] Dr. Prince Olivas MCH (RBC) [Entitic mass] 30.5 pg Normal 26.7-34.0 [facility] Comment on above: Performed By: #### S ELNIUM #### [facility] [address] [place] [address] Dr. Prince Olivas MCHC (RBC) [Mass/Vol] 31.2 g/dL Normal 29.9-35.2 [facility] Comment on above: Performed By: #### S ELNIUM #### [facility] [address] [place] [address] Dr. Prince Olivas MCV (RBC) [Entitic vol] 98.0 fL Normal 81.0-99.0 [facility] Comment on above: Performed By: #### S ELNIUM #### [facility] [address] [place] [address] Dr. Prince Olivas MONO # 0.5 103/ul Normal 0.3-0.8 [facility] Comment on above: Performed By: #### S ELNIUM #### [facility] [address] [place] [address] Dr. Prince Olivas Monocytes/100 WBC (Bld) 6.0 % Normal 1.7-12.0 [facility] Comment on above: Performed By: #### S ELNIUM #### [facility] [address] [place] [address] Dr. Prince Olivas NEUT # 5.0 103/ul Normal 1.4-6.5 [facility] Comment on above: Performed By: #### S ELNIUM #### [facility] [address] [place] [address] Dr. Prince Olivas Neutrophils/100 WBC (Bld) 56.0 % Normal 43.0-75.0 [facility] Comment on above: Performed By: #### S ELNIUM #### [facility] [address] [place] [address] Dr. Prince Olivas Platelet mean volume (Bld) [Entitic vol] 11.5 fL Normal 9.5-13.5 [facility] Comment on above: Performed By: #### S ELNIUM #### [facility] [address] [place] [address] Dr. Prince Olivas PLT 221 103/ul Normal 150-450 [facility] Comment on above: Performed By: #### S ELNIUM #### [facility] [address] [place] [address] Dr. Prince Olivas RBC 4.52 106/ul Normal 4.20-5.40 [facility] Comment on above: Performed By: #### S ELNIUM #### [facility] [address] [place] [address] Dr. Prince Olivas WBC 8.9 103/ul Normal 4.0-11.0 [facility] Comment on above: Performed By: #### S ELNIUM #### [facility] [address] [place] [address] Dr. Prince Pinon 03-28-2022 CNPN Telephone ([facility]) SAI PINEDA ([id number]) 1970 F Date Time Provider Department 03/28/22 EDUARDO HARRINGTON [facility] During your visit today, we recorded the following information about you: Eduardo Harrington RN 03/28/2022 3:52 PM Signed Attempted to reach the patient at the contact number that they provided [phone] (home) . Unable to speak with patient so without identifying the patient the following information was left on their voice mail: Date of procedure, location and report time A message was left informing the patient/patient marketing development representative they must have a responsible adult [...] Number to call with questions or concerns [phone] Number to call to cancel their procedure [phone] Eduardo Harrington RN Allergies As of Date: 03/28/2022 (No Known Allergies) Date Reviewed: 01/01/2022 Reviewed by: Juan Carlos Saucedo LPN - Fully Assessed Reason for Visit: Appointment Confirmation [[id number]] Prescriptions as of 03/28/2022 - prochlorperazine (COMPAZINE) [...] Status:Closed by EDUARDO HARRINGTON on 03/28/22 Normal [facility] PROF 14(COMP METB)on 023 Albumin [Mass/Vol] 4.2 g/dL Normal 3.4-5.0 [facility] Comment on above: Performed By: #### L IPID, CMP #### [facility] [address] [place] [address] Dr. Prince Olivas Albumin/Globulin [Mass ratio] 1.4 {ratio} Normal [facility] Comment on above: Performed By: #### L IPID, CMP #### [facility] [address] [address] [address] Prince Olivas ALP [Catalytic activity/Vol] 86 U/L Normal 46-116 [facility] Comment on above: Performed By: #### L IPID, CMP #### [facility] [address] [address] [address] Prince Olivas ALT [Catalytic activity/Vol] 13 U/L Critically low 14-59 [facility] Comment on above: Performed By: #### L IPID, CMP #### [facility] [address] [address] [address] Prince Olivas Anion gap [Moles/Vol] 9.7 mmol/L Normal [facility] Comment on above: Performed By: #### L IPID, CMP #### [facility] [address] [address] [address] Prince Olivas AST [Catalytic activity/Vol] 15 U/L Normal 15-37 [facility] Comment on above: Performed By: #### L IPID, CMP #### [facility] [address] [address] [address] Prince Olivas Bilirubin [Mass/Vol] 0.2 mg/dL Normal 0.2-1.0 [facility] Comment on above: Performed By: #### L IPID, CMP #### [facility] [address] [place] [address] Dr. Prince Olivas Calcium [Mass/Vol] 9.2 mg/dL Normal 8.5-10.1 [facility] Comment on above: Performed By: #### L IPID, CMP #### [facility] [address] [place] [address] Dr. Prince Olivas Chloride [Moles/Vol] 102 mmol/L Normal 98-107 [facility] Comment on above: Performed By: #### L IPID, CMP #### [facility] [address] [place] [address] Dr. Prince Olivas CO2 [Moles/Vol] 28.9 mmol/L Normal 21.0-32.0 [facility] Comment on above: Performed By: #### L IPID, CMP #### [facility] [address] [address] [address] Prince Olivas Creatinine [Mass/Vol] 0.81 mg/dL Normal 0.55-1.02 [facility] Comment on above: Performed By: #### L IPID, CMP #### [facility] [address] [place] [address] Dr. Prince Olivas EGFR-AF CYMRAES >60 Normal >=60 [facility] Comment on above: Performed By: #### L IPID, CMP #### [facility] [address] [address] [address] Prince Olivas EGFR-NON AF CYMRAES >60 Normal >=60 [facility] Comment on above: Performed By: #### L IPID, CMP #### [facility] [address] [address] [address] Prince Olivas Globulin (S) [Mass/Vol] 3.1 g/dL Normal [facility] Comment on above: Performed By: #### L IPID, CMP #### [facility] [address] [address] [address] Prince Olivas Glucose [Mass/Vol] 74 mg/dL Normal 74-106 [facility] Comment on above: Performed By: #### L IPID, CMP #### [facility] [address] [address] [address] Prince Olivas Potassium [Moles/Vol] 4.1 mmol/L Normal 3.5-5.1 [facility] Comment on above: Performed By: #### L IPID, CMP #### [facility] [address] [address] [address] Prince Olivas Protein [Mass/Vol] 7.3 g/dL Normal 6.4-8.2 [facility] Comment on above: Performed By: #### L IPID, CMP #### [facility] [address] [address] [address] Prince Olivas Sodium [Moles/Vol] 138 mmol/L Normal 136-145 [facility] Comment on above: Performed By: #### L IPID, CMP #### [facility] [address] [address] [address] Prince Olivas Urea nitrogen [Mass/Vol] 11.0 mg/dL Normal 7.0-18.0 [facility] Comment on above: Performed By: #### L IPID, CMP #### [facility] [address] [address] [address] Prince Olivas Urea nitrogen/Creatinine [Mass ratio] 13.6 mg/mg Normal [facility] Comment on above: Performed By: #### L IPID, CMP #### [facility] [address] [address] [address] Prince Olivas TSHon 03-28-2022 TSH 0.948 uIU/mL Normal 0.358-3.740 [facility] Comment on above: Performed By: #### L IPID, CMP #### [facility] [address] [address] [address] Prince Olivas VIT B12 AND FOLATEon 023 Cobalamin (Vitamin B12) [Mass/Vol] 260.0 pg/mL Normal 193.0-986.0 [facility] Comment on above: Performed By: #### C OPPER #### [facility] [address] [address] [address] Prince Olivas FOLATE 7.90 ng/mL Critically low 8.60-58.90 [facility] Comment on above: Performed By: #### C OPPER #### [facility] [address] [address] [address] Prince Olivas [place] GASTRIC EMPTYING SOLIDon 02-05-2022 NM GASTRIC EMPTYING SOLID * * *Final Report* * * DATE OF EXAM: Feb 05 2022 12:26PM [facility] 0017 - [place] GASTRIC EMPTYING SOLID / PROCEDURE REASON: Nausea [...] rate of gastric emptying of solid meal. Supervisor Marble: PSCB Transcribe Date/Time: Feb 05 2022 1:36P Dictated by : SHER RODRIGUEZ MD This examination was interpreted and the report reviewed and electronically signed by: RENATO PATEL MD on Feb 05 2022 2:03PM EST [id number] Normal [facility] 01-05-2022 CNPN Telephone (GAPRA3) SAI PINEDA ([id number]) 1970 F Date Time Provider Department 01/05/22 [...] Encounter Status:Closed by TIFFANI MORALES on 01/05/22 [facility] 01-03-2022 [facility] Telephone (GASTMN) SAI PINEDA ([id number]) 1970 F Date Time Provider Department 01/03/22 ANASTASIYA MOSQUEDA [facility] During your visit today, we recorded the following information about you: Anastasiya Mosqueda PA-C 01/03/2022 10:19 AM Signed EGD results discussed with patient as requested, pathology still pending. Will reach out to patient once resulted. Red flags for in person care discussed. GRECIA Castorena [facility] 01/05/2022 10:02 AM Signed Patient requests return call [phone] Elizabeth Jean Barbara [facility] Allergies As of Date: [...] Encounter Status:Closed by ANASTASIYA MOSQUEDA on 01/03/22 [facility] 01-02-2022 [facility] Telephone (DDQ) SAI PINEDA ([id number]) 1970 F Date Time Provider Department 01/02/22 [...] Encounter Status:Closed by LEYDI HUIZAR on 01/02/22 [facility] ANES POSTPROC EVALon 022 ANES POSTPROC EVAL HNO ID: [id number] Author: Sher Hudson MD Service: ? Author [...] January 01, 2022 TIME: 5:13 PM CSN: [id number] Normal [facility] ANES PRE-OPon 01-01-2022 ANES PRE-OP HNO ID: [id number] Author: Sher Hudson MD Service: ? Author Type: Anesthesiologist Type: Anesthesia Preprocedure Evaluation Filed: 01/01/2022 3:42 PM Note Text: ANESTHESIOLOGY DAY OF SURGERY NOTE : 1970 Procedure Information Date/Time: 01/01/22 1600 Scheduled providers: Tiffani Morales MD; Sher Hudson MD; Kirsten Dalton APRN.TAXONOMY TEACHER Procedure: EGD DIAGNOSTIC Location: Gastroenterology Estimated body [...] January 01, 2022 TIME: 3:42 PM CSN: [id number] Normal [facility] EGD DIAGNOSTICon 01-01-2022 [facility] HISTORY PHYSICALon 2 HISTORY PHYSICAL HNO ID: [id number] Author: Tiffani Morales MD Service: Gastroenterology Author [...] Sai Guerrero DATE: 01/01/2022 TIME: 1600 Normal [facility] NURSING PROGon 01-01-2022 NURSING PROG HNO ID: [id number] Author: Juan Carlos Saucedo LPN Service: ? [...] Signed By: Juan Carlos Saucedo LPN Normal [facility] NURSING PROG HNO ID: [id number] Author: Rima Coleman RN Service: ? Author [...] Rima Coleman RN In Department: GASTROENTEROLOGY Normal [facility] SURGICAL PATHOLOGYon 022 CASE REPORT Normal [facility] Comment on above: Order Comment: Robb clement Type: TISSUE SPECIMENOrdering Facility: [facility] Address: [address] [place] [address] Result Comment: Surg ical Pathology Report Case: [id number] Authorizing Provider: Tiffani Morales MD Collected: 01/01/2022 04:13 PM Ordering Location: Gastroenterology Received: 01/01/2022 08:38 PM Pathologist: Jyotsna Cartwright MD Specimens: A) - DUODENUM BIOPSY, r/o celiac B) - STOMACH BIOPSY, r/o h. pylori C) - STOMACH (GASTRIC) POLYP BIOPSY, r/o adenoma Performed By: #### S ####[facility] LABCLIA [id number] [address] DIAGNOSIS COMMENT Normal [facility] Comment on above: Order Comment: Robb clement Type: TISSUE SPECIMENOrdering Facility: [facility] Address: [address] [place] [address] Result Comment: A. A denovirus stain is negative for viral inclusions. Dr Valorie Jaimes has reviewed this part of the case and concurs. Laboratory Developed Test (LDT) Disclaimer: Performance characteristics of immunohistochemical, immunofluorescent and chromogenic in-situ hybridization tests have been determined by the performing laboratory within [facility]???s [facility] ([facility], [facility], [facility] or [facility]) in a manner consistent with CLIA requirements. One or more of these tests have not been cleared or approved by the FDA. [facility] is regulated under CLIA as qualified to perform high-complexity testing. These tests are used for clinical purposes. They should not be regarded as investigational or for research. Positive and negative controls stain appropriately. Performed By: #### S ####[facility] LABCLIA [id number] [address] FINAL DIAGNOSIS Normal [facility] Comment on above: Order Comment: Speci men Type: TISSUE SPECIMENOrdering Facility: [facility] Address: [address] [place] [address] Result Comment: A. D uodenum, biopsy: - Incidental and minute tubular adenoma, negative for high grade dysplasia. See comment. - Duodenal mucosa with no diagnostic alterations. B. Stomach, biopsy: - Oxyntic and antral mucosa with no diagnostic alteration. - No morphologic evidence of H. Pylori microorganisms. C. Stomach, polypectomy: - Hyperplastic polyp. Performed By: #### S ####[facility] LABIA [id number] [address] FINAL PERFORMING LAB Normal [facility] Comment on above: Order Comment: Speci men Type: TISSUE SPECIMENOrdering Facility: [facility] Address: [address] [place] [address] Result Comment: Diag nostic interpretation performed at [facility], [address] [place] [address] CLIA# [id number] Travel Insurance Agent: Constantin Quevedo M.D. Performed By: #### S ####[facility] LABIA [id number] [address] GROSS DESCRIPTION Normal [facility] Comment on above: Order Comment: Speci men Type: TISSUE SPECIMENOrdering Facility: [facility] Address: [address] [place] [address] Result Comment: A. D UODENUM BIOPSY Received [...] in one cassette. Gross examination performed at [facility], [address] [id number] TTN 01/02/2022 12:06 AM Performed By: #### S ####[facility] LABCLIA [id number] [address] [id number] [address] [facility] Upper GI endoscopyon 01-01- 022 Upper GI endoscopy A31 Gastrointestinal Endoscopy Patient Name: Sai Guerrero Procedure Date: 01/01/2022 3:37 PM Date of : 1970 Admit Type: Outpatient Age: 51 Room: [address] Gender: Female Note Status: Finalized [...] the patient. 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 All rights reserved. The codes documented in this report are preliminary and upon associate director data & analytics review may be revised to meet current compliance requirements. Attending Participation: I personally performed the entire procedure. Scope In: 4:09:57 PM Scope Out: 4:21:34 PM MD Tiffani Camargo MD 01/01/2022 4:34:18 PM This report has been signed electronically by Tiffani Morales MD Number of Addenda: 0 Note Initiated On: 01/01/2022 3:37 PM Normal [facility] CNPNon 12-28-2021 CNPN Telephone (GAPRA3) SAI WELLS ([id number]) 1970 F Date Time Provider Department 12/28/21 [...] family/friend present for procedure transport home:Patient/patient marketing development representative was told that if they do [...] area. 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 Type of instruction [...] Status:Closed by JOSE ROBERTO VYAS on 12/28/21 [facility] 12-25-2021 [facility] Telephone (GAPRA3) SAI WELLS ([id number]) 1970 F Date Time Provider Department 12/25/21 [...] Encounter Status:Closed by RIMA GERARD on 12/25/21 [facility] 12-18-2021 CNPN Telephone (GAPRA3) SAI WELLS ([id number]) 1970 F Date Time Provider Department 12/18/21 BHUPINDER CARREON GAPRA3 During your visit today, we recorded the following information about you: Bhupinder Carreon MA 12/18/2021 10:51 AM Signed Attempted to reach the patient at the contact number that they provided [phone] (home) . Unable to speak with patient [...] Encounter Status:Closed by [facility]INDER [facility] Telephone ([facility]) SAI WELLS ([id number]) 1970 F Date Time Provider Department 12/13/21 ANASTASIYA MOSQUEDA During your visit today, we recorded the following information about you: [facility] 12/13/2021 11:20 AM Signed Received a call from patient's health agency concerning virtual visit set up with you today at 11 - Patient has not registered for [employer] (having trouble accessing her email) AND they want to know if you will do a phone visit instead Was told this was an urgent request from the referring doctor's office - the visit was scheduled thru the Referring Physician office There are no records found for this patient AND I attempted to pull records thru Care Everywhere Patient's phone [phone] Elizabeth Jimenez [facility] 12/13/2021 12:33 PM Signed Spoke to patient's daughter - she will contact the [employer] support line to assist with setting up patient's Mychart AND assist with set up for virtual visit tomorrow morning [facility] 12/14/2021 12:34 PM Signed Patient phoned again unable to connect with you via [employer] Okay to schedule phone visit tomorrow? [phone] [facility] 12/14/2021 1:32 PM Signed Patient scheduled for phone visit Dec 15 at 11 am - patient instructed not to screen her calls at the time of the visit AND to answer her phone [facility] 12/15/2021 11:46 AM Addendum Patient called the office stating you did not phone her for her 11 am appt today- she confirmed the phone number on file resort desk clerk checked the patient in as arrived you should be able to call her back without rescheduling the time [phone] [facility] Allergies As of Date: 12/13/2021 (No Known [...] Raynauds phenomenon [I73.00] 10/24/2012 Encounter Status:Closed by ELZIABETH RODRIGUEZ on 12/13/21 Normal [facility] BNPon 12-11-2021 Natriuretic peptide B (Bld) [Mass/Vol] 134.0 pg/mL Normal <=900.0 [facility] Comment on above: Performed By: #### M MA2 #### [facility] [address] [place] [address] Dr. Prince Olivas CBC AUTO DIFFon 12-11-2021 BASO # 0.0 103/ul Normal 0.0-0.1 [facility] Comment on above: Performed By: #### L IPID, CMP #### [facility] [address] [place] [address] Dr. Prince Olivas Basophils/100 WBC (Bld) 0.4 % Normal 0.2-2.0 [facility] Comment on above: Performed By: #### L IPID, CMP #### [facility] [address] [place] [address] Dr. Prince Olivas EO # 0.0 103/ul Normal 0.0-0.7 [facility] Comment on above: Performed By: #### L IPID, CMP #### [facility] [address] [place] [address] Dr. Prince Olivas Eosinophils/100 WBC (Bld) 0.3 % Critically low 0.9-7.0 [facility] Comment on above: Performed By: #### L IPID, CMP #### [facility] [address] [place] [address] Dr. Prince Olivas Erythrocyte distribution width (RBC) [Ratio] 13.1 % Normal 11.0-15.0 [facility] Comment on above: Performed By: #### L IPID, CMP #### [facility] [address] [place] [address] Dr. Prince Olivas Hematocrit (Bld) [Volume fraction] 45.9 % Normal 36.0-48.0 [facility] Comment on above: Performed By: #### L IPID, CMP #### [facility] [address] [place] [address] Dr. Prince Olivas Hemoglobin (Bld) [Mass/Vol] 15.3 g/dL Normal 12.0-16.0 [facility] Comment on above: Performed By: #### L IPID, CMP #### [facility] [address] [address] [address] Prince Olivas IG # 0.04 10e3/ul Critically high 0.00-0.03 [facility] Comment on above: Performed By: #### L IPID, CMP #### [facility] [address] [address] [address] Prince Olivas IG % 0.4 % Normal 0.0-0.5 [facility] Comment on above: Performed By: #### L IPID, CMP #### [facility] [address] [address] [address] Prince Olivas LYMPH # 1.9 103/ul Normal 1.2-3.8 [facility] Comment on above: Performed By: #### L IPID, CMP #### [facility] [address] [place] [address] Dr. Prince Olivas Lymphocytes/100 WBC (Bld) 17.0 % Critically low 20.5-60.0 [facility] Comment on above: Performed By: #### L IPID, CMP #### [facility] [address] [place] [address] Dr. Prince Olivas MANUAL DIFF REQ NO Normal [facility] Comment on above: Performed By: #### L IPID, CMP #### [facility] [address] [place] [address] Dr. Prince Olivas MCH (RBC) [Entitic mass] 31.4 pg Normal 26.7-34.0 [facility] Comment on above: Performed By: #### L IPID, CMP #### [facility] [address] [place] [address] Dr. Prince Olivas MCHC (RBC) [Mass/Vol] 33.3 g/dL Normal 29.9-35.2 [facility] Comment on above: Performed By: #### L IPID, CMP #### [facility] [address] [place] [address] Dr. Prince Olivas MCV (RBC) [Entitic vol] 94.3 fL Normal 81.0-99.0 [facility] Comment on above: Performed By: #### L IPID, CMP #### [facility] [address] [place] [address] Dr. Prince Olivas MONO # 0.6 103/ul Normal 0.3-0.8 [facility] Comment on above: Performed By: #### L IPID, CMP #### [facility] [address] [place] [address] Dr. Prince Olivas Monocytes/100 WBC (Bld) 5.6 % Normal 1.7-12.0 [facility] Comment on above: Performed By: #### L IPID, CMP #### [facility] [address] [place] [address] Dr. Prince Olivas NEUT # 8.3 103/ul Critically high 1.4-6.5 [facility] Comment on above: Performed By: #### L IPID, CMP #### [facility] [address] [place] [address] Dr. Prince Olivas Neutrophils/100 WBC (Bld) 76.3 % Critically high 43.0-75.0 [facility] Comment on above: Performed By: #### L IPID, CMP #### [facility] [address] [place] [address] Dr. Prince Olivas Platelet mean volume (Bld) [Entitic vol] 12.1 fL Normal 9.5-13.5 [facility] Comment on above: Performed By: #### L IPID, CMP #### [facility] [address] [place] [address] Dr. Prince Olivas PLT 204 103/ul Normal 150-450 [facility] Comment on above: Performed By: #### L IPID, CMP #### [facility] [address] [place] [address] Dr. Prince Olivas RBC 4.87 106/ul Normal 4.20-5.40 [facility] Comment on above: Performed By: #### L IPID, CMP #### [facility] [address] [place] [address] Dr. Prince Oilvas WBC 10.9 103/ul Normal 4.0-11.0 [facility] Comment on above: Performed By: #### L IPID, CMP #### [facility] [address] [place] [address] Dr. Prince Olivas LACTATE/LACTIC ACIDon 2021 Lactate [Moles/Vol] 1.9 mmol/L Normal 0.4-1.9 [facility] Comment on above: Performed By: #### S ELNIUM #### [facility] [address] [place] [address] Dr. Prince Olivas LIPASEon 12-11-2021 Lipase [Catalytic activity/Vol] 49.0 U/L Critically low 73.0-393.0 [facility] Comment on above: Performed By: #### M ADRIAN2 #### [facility] [address] [place] [address] Dr. Prince Olivas PROF 14(COMP METB)on 022 Albumin [Mass/Vol] 4.5 g/dL Normal 3.4-5.0 [facility] Comment on above: Performed By: #### Marine CAMPBELL2 #### [facility] [address] [place] [address] Dr. Prince Olivas Albumin/Globulin [Mass ratio] 1.7 {ratio} Normal [facility] Comment on above: Performed By: #### Marine CAMPBELL2 #### [facility] [address] [place] [address] Dr. Prince Olivas ALP [Catalytic activity/Vol] 83 U/L Normal 46-116 [facility] Comment on above: Performed By: #### Marine CAMPBELL2 #### [facility] [address] [place] [address] Dr. Prince Olivas ALT [Catalytic activity/Vol] 19 U/L Normal 14-59 [facility] Comment on above: Performed By: #### M ADRIAN2 #### [facility] [address] [place] [address] Dr. Prince Olivas Anion gap [Moles/Vol] 15.8 mmol/L Normal [facility] Comment on above: Performed By: #### Marine CAMPBELL2 #### [facility] [address] [place] [address] Dr. Prince Olivas AST [Catalytic activity/Vol] 15 U/L Normal 15-37 [facility] Comment on above: Performed By: #### M MA2 #### [facility] [address] [address] [address] Prince Olivas Bilirubin [Mass/Vol] 0.6 mg/dL Normal 0.2-1.0 [facility] Comment on above: Performed By: #### Marine MA2 #### [facility] [address] [address] [address] Prince Olivas Calcium [Mass/Vol] 9.3 mg/dL Normal 8.5-10.1 [facility] Comment on above: Performed By: #### Marine MA2 #### [facility] [address] [place] [address] Dr. Prince Olivas Chloride [Moles/Vol] 103 mmol/L Normal 98-107 [facility] Comment on above: Performed By: #### Marine MA2 #### [facility] [address] [place] [address] Dr. Prince Olivas CO2 [Moles/Vol] 25.9 mmol/L Normal 21.0-32.0 [facility] Comment on above: Performed By: #### M MA2 #### [facility] [address] [place] [address] Dr. Prince Olivas Creatinine [Mass/Vol] 0.97 mg/dL Normal 0.55-1.02 [facility] Comment on above: Performed By: #### Marine MA2 #### [facility] [address] [place] [address] Dr. Prince Olivas EGFR-AF CYMRAES >60 Normal >=60 [facility] Comment on above: Performed By: #### M MA2 #### [facility] [address] [place] [address] Dr. Prince Olivas EGFR-NON AF CYMRAES >60 Normal >=60 [facility] Comment on above: Performed By: #### Marine MA2 #### [facility] [address] [place] [address] Dr. Prince Olivas Globulin (S) [Mass/Vol] 2.7 g/dL Normal [facility] Comment on above: Performed By: #### M MA2 #### [facility] [address] [address] [address] Prince Olivas Glucose [Mass/Vol] 107 mg/dL Critically high 74-106 [facility] Comment on above: Performed By: #### M MA2 #### [facility] [address] [address] [address] Prince Olivas Potassium [Moles/Vol] 3.7 mmol/L Normal 3.5-5.1 [facility] Comment on above: Performed By: #### M MA2 #### [facility] [address] [address] [address] Prince Olivas Protein [Mass/Vol] 7.2 g/dL Normal 6.4-8.2 [facility] Comment on above: Performed By: #### Marine MA2 #### [facility] [address] [address] [address] Prince Olivas Sodium [Moles/Vol] 141 mmol/L Normal 136-145 [facility] Comment on above: Performed By: #### M MA2 #### [facility] [address] [address] [address] Prince Olivas Urea nitrogen [Mass/Vol] 11.0 mg/dL Normal 7.0-18.0 [facility] Comment on above: Performed By: #### M MA2 #### [facility] [address] [address] [address] Prince Olivas Urea nitrogen/Creatinine [Mass ratio] 11.3 mg/mg Normal [facility] Comment on above: Performed By: #### M MA2 #### [facility] [address] [address] [address] Prince Olivas TROPONIN, HIGH SENSITIVITYon 12-11-2021 HSTROP 5.5 pg/mL Normal 4.0-51.3 [facility] Comment on above: Result Comment: CUT- OFF POINTS HAVE BEEN ESTABLISHED BASED ON THE FOURTH UNIVERSAL DEFINITIONS OF MYOCARDIAL INFARCTION. THE UPPER REFERENCE LIMIT (URL) OF TROPONIN, DEFINED THE 99TH PERCENTILE OF cTnI DISTRIBUTION IN A REFERENCE POPULATION, HAS BEEN CONFIRMED THE DECISION THRESHOLD FOR CA DIAGNOSIS. Performed By: #### M MA2 #### [facility] [address] [place] [address] Dr. Prince Olivas XR CHEST 1 Von [...] BRITNI HARRISON Date: 2021-12-11 15:20 Normal [facility] Coding Summary.on 12-06-2021 Coding Summary. CD:[id number] Gh0bWw+P GhlYWQ+CM5LHLQrF61sfLLbeH3CV 8zXLB3ZKEQAVEOLYS2NWV3zcLD3F UreF7HgosTt CfmwcFGbFG20SJe5XHE7fCrzARai jB1ftMPmA1k5VaQdAV08eI01FNwa QEDbCnN0YgGtipeefFSr X2czOiVraBLaXsv+PHRhYmxlIHdp FNWgWCfuPVBeVtZxnEoeWV9sZb8d ZGVyLWNvbGxhcHNlOiBj d0njBLSkJFjsJK4maHojK5SwnZB3 MNOvq8g4Rz93xRN+LHZzXZP9bCvk OBqbj475KaAoc7snTOF1 eRZlSTfiFBV9X92sn9W1AGNkPTMc MKZ6sHN1gF0ihGhhyjwiJ2HdvDBo QaU2YVL4vNUexU7ocIox iiyucC3sWin+L91ZHO5MHHOFMS2V Alr1O7GuDurwaSR+TB79FIUqNU67 rOAhtTKql1kvnXn9ZvTl XGYsRIS5kXuxAExbg6HvIWXnQ99n rTPlv7B2FWHtrAfxzFVcBxBovHM9 oP0jNFzbmnhfj6hyvdee Oworl7hndx50wS46Z94tVZpbJMQb BWZ6ZHObHFDhkSsjtp5svG9fMk6+ GYrvj5qjg8azoAw2GvHt DYVrzwZhnCreDWV8z1BxOb86O4Dq jGwmo6ByPar0mb72dDAyl2C0eVG1 WVynWQYwlT9eJFpbOhI9 GURmCiZdjS99oATvHOmhSs7ytTde nKkrKB0oQHMyjhhqLLRqdY5eRBRv rPWqyDjuZA8oRETdckxe q052IeCyXEQ3NHJfeZFvB6QniB0o EsCeOHNaOSVtB7PpaBWhAEoiG930 UZsgQwA3OXAbefIwI4Pm NOZuiKowWmG3n4X7Sb7Wl1Sjdkwq CZW2RLghNYT7CzWtCyMfJyC7V1Es Ees4GTStcWcdQC6jO8Fz XRUlbkmelyukyTQ6GFIsJNHtvK80 hDIkXYpmEy3fa9J4e034EWIqODZw aA98Ds0mkEgwMMXktKLX fC7brtsfo9xokejoVzTrYOGdLPa9 SGp1HYDwgYjnPdZgCDL7JgH9RPG4 bTAtmU4cpYpxcisztP8f Oyc+H63jyL9dXAJ2QAG0thbkZHPn mbVuWQ98VC73Z2EfMvgqxCVzvIE+ WDMzecGmoVjbXY2vYpSn a4spx1UvXIooA8AuVDJhLHspViw6 HQBaCAH9uGB5wI2zRVWoUHhbd4V6 aUM3G0XugdOncs9bg8jf JGDhNIpjN57jsZIiq3J9GWHwfWL9 ADLkvQkwOmHhhE83Xfg+PGNvbGdy i2PwDaiae3igd4rylGa1 ZnZnETIaipIsqHwzDRL3f8XkOl47 K45dIMufJXNkYYDeOSElMKWyfNug ab2euY3qWe5+PGNvbCB3 bKK4iM8xJFOwXqB8ZUclV430PkEz mTBsBnmis8jbk3akmUo5ZhAdFJAu joZxmEvuEKD5z5DvZj07 B21pGVmuCUUrTNSdBZCiCAXjoCnf ub1lcO1aXl0+TM3hp3jdzd38bH36 dHI+PFWuKVD5lSxsOZvq TDIkyL7rJPggOqV2FMHxQtEbtI49 sXPeFVvuBh5tgVneqWztOY1xBEXc puqhd364XcDlo3jvNVYh rHIfMVuzRBH3V17sb3T1NDTzUFVc GBE5fQS0rK8hlZzxgdnkrGZgcEan teLckYraSZsdSIwyQ431 IHRvcDsnPlBhdGllbnQgTmFtZTo8 V6TsPjw3TXNsnHkvJO7gkSXaOZml Ct3lqIfiwGxjVJ8tMTNb jhyat049YkIdx0wpRLFuxPXsEGmw SXO7P57aa5F2YNVsQOLaYYQ1aBT8 tC6hfJvxvmrdeYBhhWll ypMzdMftMPugJYbjC941ZTZuqNkw ZwLjkeRsDMFduBN7UC97SW46tZBf z9R3hPY2N7JcGVUxdhbp mhctlQU4XSKqTMVjvJ40Ar7rsAcu Je0dCDBaUPS5LHGsfCApP2NguQ9a DsXmNIFkPUFgX7PmhVXh GCraB866HTszVaY6EQMdhvQyZ1Iz KSIdfNfxUfI2n2C7Bt3NL3Y2CH96 CL79pNUms6B0wEA6O1Rn AQXaznwpbmzlnGJ8FABsVSNwxT78 Zw6buZbkMz7pWRBjIWU7HOSitSDg K7QxaE3mGfQkJNTpLPKn K8ZemFPqXUvaA286AGnrAeI8VZLx tvMnJ0KuETYerQndJmS1i3R3Hp5B VAk0YN00BG53mUXrg5B7 wJK3M1BfUJAqbxwercslvDB9LHWg DYMovW31Pc0qaTqhTt1xNYIaDWM8 PZPsvCUbP6YnuP9tJaDt ICAbBRYgO2PmtFUhFVpdH636WQyk CpS6XZUjriMrO8QpYYUrqOelRkI8 c3V5Hd0ZVMQbBW32BEN0 bMZ2MJ58ZZ23U1XhOuprpZNxgDD+ PHRhYmxlIHdpZHRoPScxMDAlJyBz mZflLK9vGg0cAVGpSUEh bJoxvHNnQtVzp6koOBWpFBrhTL1m rPeeO4SieAU5VKDmt4u8Zx32F87p N7XfsDH+CAEwnEZ5dQA2 jC9iAtBvIeQ6SSkyS376BiZjqMGa Ugeix7bba5hbyZm3XkU3MEObdwWg [id number] RSizEJAvYQRqZCRuJSScoUivax0s kM0nLh0+YXGhaKZ4lJG9eC1nQaQc LjE7DYhoW285QaGxxSWu Tafdo7fgf1zkkWr0LxLyDSRlchGx xYemDHP4s3EjEp93B7RrvMxdb6Yk Udz2yd86cQAuq3X0zSB5 K5JzEAZsiyciqVRqnMebLK8vESNy cjmfOPEitA4kFDPvV9l8GfVtIhN2 RPldC0KfvbC9SBTqhCAm VUrlARJ8W36ah5A1ZRPeRZTiAJS2 vTN6cS1gsNrwwaiviZXgmCqwjbTd oAfyBTmhURjzA042FIBe rDsuWARjcV2wUSEeaFPxcYrvGM9f NTBpbjsnPldFQVZFUiwgUkhPTkRB HIZ2M5LcEtz6IAZtdTmj WR6vxRNnPKenQd8ucJnvmZlwCE6l NVIaxywlEGTwcY0mZWMhfFQjzKqy FB9cVNYejfxjb124YtCt OKC9ADNqiWJjF5QhpD4mLtViQTTh PDTcY5YyaCOjTKsnF537PAwhLxJ9 FNQuvyCvH2XeGATelZte SzT1m6X4Sc3gCh8qBg5gNZpdXE90 JN17rVFss4E0aLN8S1WnBDKcpfvt owvymDB9ADUwACZpgW57 wOSbZOuxSy0xn6W1y309PAEgVUDi bC45Sl8ofOceRUIkdNHRtU3yvvkf u8ackyshWkRdLQYnEUu8 BJm7GNNasHxtCyHiHKG3CdE2QIP0 lVTmwK9pxGfgzzmmtU7bVbv+NTEg RRSxxvG4V6WcBfa5CXAi vNmpLO5evHVcENfoZq5lrLlgrEec EN8tTPBrzzkcHPBdhZ6eIEGtzFAs sDusOS2qFGJyvmndq100 BySwJNP5XAUcqFHtL2DozW5dVxUd IEMsEYObJ9SwmVQgPVaeE923RUxu GzC0XLBobfFhL5EvBAQc zVolLaR6u6G7Zt6NXO4baMF8D4Te Cnu8XCFifZllSE6qkQWiPOcvTs4r fZtclNxdJB1jHBVmzsac MHDtcD9cGCYvsRHhmUryMH6kLUCt casib800GpBtYTU7ZGXztJBrE2Bm zX4xFaIzIEOmEYBdP7De gTRaKTclA085VKbiTyQ0RBLilhXl B0RzNCUuzFwsJwY2b6N9Ui3KtCZi T6UkS6j9L0SeJedlzTG+ MU32NNWaTB50bWSusISzq0ogqWx9 LgDxDDQlURO3vSuhXQeok8BmPGIs Y09mbXCik0Y6QRTmsTwj rBBqDrZleVE9yR4bRHuqcihhl1ms omgyZtyao0ctck45tV68A22tPNux ZHRoPSIzMCUiIHZhbGln we4geO1cTk6+JMBacHV5sJO9hR3t NqKoRzQ4EXhwT707KoBhkUJwXxuq h3iej1qcuJv0EpZaVAWm dyQkoYdeOSB7v7TfSa18S93nLCic PTTqWUNzQSUmCOIsxNawuf9ynZ6k Ii8+FK8vv8igto99lK73 dHI+GQIfFGB2hRqjJSzaRPAnpP0l DUmhPdI9LAQrHfYlhS35dVHwAFbg Am6siZmsaBqkYM9rIUDa jaofz059QyIpx9mvEGMcnDJoRNwf VDN8J23gg7Z2UWKsXYMuBKW2nZS2 tL0lyQsimrrfoTIxaZyh vkZdoMhzLDelYMlhO631CGApuIrp GxGywIGhO8gygxSKRB9kGbnskSX+ PQYkKEV9kPjfRAhdAVXp iC5tELKaQ2a2LpMfNbE0RRlpU4Wq gfY3HDCskWEvIKPjfICIvO3rphnc d1hqpfokKdCxIUWjZBz0 FZi3LFWnuXmnAiTiDJN3TgS8AMN7 lZGawP9fjIgnscyvzJ2eSkb+RklO OjwvdGQ+TOBkPZZ5rQxc UPwrVCGbgO4cCWDgI9l6ImUpDdG3 WTkiH3KgrwE0QJTwkZLtHUIfqXJA vT0xuujqp5zefxzuIvRg TZCjBFn3UDq2RMEwdAhwByVcKWO3 UvR5NPM1wZDyiL5wyLjczidrwW6k Oyc+TVJOOjwvdGQ+PHRk RFT5fGmdJFhaBVImzZ2iQTGnH6v6 XjLlYlS7ZSlzL5RrihI2KQXriPMl TBMebJEQcI9efpzgj9mx vbeeQwXjYLIkATv1HEq0NDQpgRhw AdGoOWH9YnF4IFU4lWMblL3gpUrl ycbdgH8yUkf+RYS0ZHQ9 SQ79MD91L0JfMajprKDocKV+PHRh YmxlIHdpZHRoPScxMDAlJyBzdHls JA4oPi9qULMyOPFiqLci cHNl (more content not included)... Normal [facility] Amylaseon 12-03-2021 Amylase [Catalytic activity/Vol] 32 U/L Normal 25-157 [facility] Comment on above: Performed By: #### 1 3448050, 8808661, 9444479, 7889540, 8339934, 3022992, 9276568 #### [facility] [address] [place] [address] Auto Diffon 12-03-2021 Basophils/100 WBC (Bld) 0.6 % Normal 0.0-2.0 [facility] Comment on above: Order Comment: Order Added by Discern Expert. Performed By: #### 1 2125112, 5429197, 2971264, 8803300, 6122814, 8204958, 9739772 #### [facility] [address] [place] [address] Basophils/Leukocyte s Auto (Bld) [Pure # fraction] 0.1 E9/L Normal 0.0-0.2 [facility] Comment on above: Order Comment: Order Added by Discern Expert. Performed By: #### 1 3358946, 7353435, 8454363, 1311238, 8905402, 2460323, 6292093 #### [facility] [address] [place] [address] Eosinophils/100 WBC (Bld) 0.1 % Normal 0.0-8.0 [facility] Comment on above: Order Comment: Order Added by Discern Expert. Performed By: #### 1 9684513, 5763878, 7830771, 6105916, 1412664, 3544231, 6148605 #### [facility] [address] [place] [address] Eosinophils/Leukocy lefty Auto (Bld) [Pure # fraction] 0.0 E9/L Normal 0.0-0.5 [facility] Comment on above: Order Comment: Order Added by Discern Expert. Performed By: #### 1 9455412, 5135909, 1634003, 5600748, 5637025, 7982237, 2827892 #### [facility] [address] [place] [address] Lymphocytes/100 WBC (Bld) 16.1 % Normal 14.0-50.0 [facility] Comment on above: Order Comment: Order Added by Discern Expert. Performed By: #### 1 9331172, 4991003, 5528906, 5234942, 1529955, 1176992, 6511456 #### [facility] [address] [place] [address] Lymphocytes/Leukocy lefty Auto (Bld) [Pure # fraction] 1.5 E9/L Normal 1.0-4.0 [facility] Comment on above: Order Comment: Order Added by Discern Expert. Performed By: #### 1 3553833, 9636295, 4634043, 9035304, 2656011, 7116603, 8065784 #### [facility] [address] [place] [address] Monocytes/100 WBC (Bld) 4.6 % Normal 4.0-14.0 [facility] Comment on above: Order Comment: Order Added by Discern Expert. Performed By: #### 1 6106887, 3670568, 7147540, 6262176, 1481071, 3819363, 8980800 #### [facility] [address] [place] [address] Monocytes/Leukocyte s Auto (Bld) [Pure # fraction] 0.4 E9/L Normal 0.2-1.0 [facility] Comment on above: Order Comment: Order Added by Farrukh Expert. Performed By: #### 1 5100178, 5513240, 6803996, 8542456, 3902692, 6383704, 1521295 #### [facility] [address] [place] [address] Neutrophils/100 WBC (Bld) 78.6 % High 36.0-75.0 [facility] Comment on above: Order Comment: Order Added by Discern Expert. Performed By: #### 1 7294239, 0638379, 7901008, 8544042, 2483899, 0975394, 7993814 #### [facility] [address] [place] [address] Neutrophils/Leukocy lefty Auto (Bld) [Pure # fraction] 7.6 E9/L High 2.0-7.5 [facility] Comment on above: Order Comment: Order Added by Farrukh Expert. Performed By: #### 1 8243884, 2384412, 1645335, 1123575, 5297715, 5084142, 4711942 #### [facility] [address] [place] [address] BMPon 12-03-2021 Creatinine [Mass/Vol] 1.1 mg/dL Normal 0.5-1.3 [facility] Comment on above: Performed By: #### 1 0031311, 0644008, 8131118, 7131968, 9255167, 0461661, 4428805 #### [facility] [address] [place] [address] Urea nitrogen [Mass/Vol] 21 mg/dL Normal 5-21 [facility] Comment on above: Performed By: #### 1 8170952, 1536456, 1588150, 9852561, 0007485, 0536722, 5347210 #### [facility] [address] [place] [address] Urea nitrogen/Creatinine [Mass ratio] 19 No Units Normal 10-20 [facility] Comment on above: Performed By: #### 1 8120156, 6925864, 4604542, 4090639, 0060783, 5324839, 0440913 #### [facility] [address] [place] [address] Anion gap [Moles/Vol] 22 mmol/L High 6-16 [facility] Comment on above: Performed By: #### 1 6272587, 7114950, 6542568, 1873019, 3500891, 6025909, 0473007 #### [facility] [address] [place] [address] Calcium [Mass/Vol] 9.8 mg/dL Normal 8.9-11.1 [facility] Comment on above: Performed By: #### 1 8067874, 4191239, 0220568, 1665394, 2445262, 0737371, 5935916 #### [facility] [address] [place] [address] Chloride [Moles/Vol] 96 mmol/L Low 101-111 [facility] Comment on above: Performed By: #### 1 0852190, 5822430, 4054177, 6330058, 8466193, 5181280, 5727885 #### [facility] [address] [place] [address] CO2 [Moles/Vol] 19 mmol/L Low 21-31 [facility] Comment on above: Performed By: #### 1 7286719, 0036678, 3686043, 5004501, 8143592, 3713848, 4987728 #### [facility] [address] [place] [address] Glucose [Mass/Vol] 64 mg/dL Normal 55-199 [facility] Comment on above: Result Comment: If t his glucose result represents a fasting glucose, interpretation should refer to the following reference range: 55-99 mg/dL Performed By: #### 1 1135814, 4856742, 9292440, 5260121, 7506817, 7727934, 2783697 #### [facility] [address] [place] [address] Potassium [Moles/Vol] 4.3 mmol/L Normal 3.5-5.3 [facility] Comment on above: Performed By: #### 1 5272291, 8199538, 8733821, 7806892, 4068418, 0866670, 3213817 #### [facility] [address] [place] [address] Sodium [Moles/Vol] 133 mmol/L Low 135-145 [facility] Comment on above: Performed By: #### 1 0238287, 5863170, 8142433, 7153000, 3021368, 6974872, 2533601 #### [facility] [address] [place] [address] CBC w/ Auto Diffon Erythrocyte distribution width (RBC) [Ratio] 13.5 % Normal 10.9-14.2 [facility] Comment on above: Performed By: #### 1 1862166, 3548527, 8279017, 9399717, 1073027, 4839135, 3175807 #### [facility] [address] [place] [address] Hematocrit (Bld) [Volume fraction] 51.0 % High 34.0-46.0 [facility] Comment on above: Performed By: #### 1 7469828, 4280075, 8994489, 1016254, 0669655, 9708872, 6340808 #### [facility] [address] [place] [address] Hemoglobin (Bld) [Mass/Vol] 16.8 g/dL High 12.0-16.0 [facility] Comment on above: Performed By: #### 1 2991699, 7239017, 4154346, 4858681, 9827896, 9926135, 3888626 #### [facility] [address] [place] [address] MCH (RBC) [Entitic mass] 30.9 pg Normal 27.0-34.0 [facility] Comment on above: Performed By: #### 1 3571034, 9067404, 5083703, 3162291, 7235075, 7012879, 2454897 #### [facility] [address] [place] [address] MCHC (RBC) [Mass/Vol] 32.9 g/dL Normal 31.4-36.0 [facility] Comment on above: Performed By: #### 1 4816328, 0057985, 2055680, 3732747, 3633488, 2452700, 0744853 #### [facility] [address] [place], [place] [address] MCV (RBC) [Entitic vol] 94.0 fL Normal 80.0-100.0 [facility] Comment on above: Performed By: #### 1 2198273, 9652472, 3701376, 4759449, 7502469, 0162340, 2798209 #### [facility] [address] [place] [address] Platelet mean volume (Bld) [Entitic vol] 9.8 fL Normal 6.4-10.8 [facility] Comment on above: Performed By: #### 1 9946573, 7090008, 8836433, 0910347, 2904142, 5392548, 1290745 #### [facility] [address] [place] [address] Platelets (Bld) [#/Vol] 212.0 E9/L Normal 150.0-500.0 [facility] Comment on above: Performed By: #### 1 5889234, 9527148, 3793309, 3140556, 5675519, 4893331, 0368107 #### [facility] [address] [place] [address] [place] [address] RBC (Bld) [#/Vol] 5.4 E12/L Normal 4.3-5.9 [facility] Comment on above: Performed By: #### 1 4711873, 1059079, 8398032, 0431307, 4100951, 0393168, 0977518 #### [facility] [address] [place] [address] WBC corrected for nucl RBC Auto (Bld) [#/Vol] 9.6 E9/L Normal 4.0-11.0 [facility] Comment on above: Performed By: #### 1 6590876, 5416675, 0419216, 0200893, 6790827, 6241004, 8659701 #### [facility] [address] [id number] Consent for Treatmenton 11-16 Consent for Treatment [id number]:127 Normal [facility] Discharge Instructionson Discharge Instructions [id number]:127 Normal [facility] ED Clinical Summaryon 2021 ED Clinical Summary (Inserted Image. Antoinette ble to display) [address] [address] ED Clinical Summary Person Information Name: SAI PINEDA Natlaie/[facility] Age: 51 Years : 1970 Sex: Female Language: Belarusian PCP: CRISTINA IQBAL CNP Marital Status: Visit Id: Visit Reason: Nausea; Abdominal pain; ZEYDE-RCORE-[facility] BREATHING Speciality: Acuity: 3 Enc Type: Emergency [...] 13:54:54 12/03/2021 13:54:54 12/03/2021 13:54:54 ADDRESS: [address] [place] [phone] PHYS DOC NOTES: MEDICAL INFORMATION: Prescriptions Given: New Medications [facility]/pharmacy #[id number], [address] [place], [place] [phone], [phone] promethazine (Phenergan 25 mg Supp) 1 Suppositories By rectum every 6 hours as needed as needed for nausea. Insert one per rectum every six hours as needed for nausea and vomiting. Refills: 0. promethazine (promethazine 25 mg Tab) 1 Tablets By Mouth every 4 hours. Refills: 0. Medications to Continue Taking That Have Changed [facility]/pharmacy #[id number], [address] [place], [place] [phone], [phone] START: pantoprazole (Protonix 40 mg Tab-DR) 1 [...] day. PATIENT EDUCATION INFORMATION: Instructions: Gastritis, Adult, Ddzr-fv-Flsx; Abdominal Pain, Adult Follow up: With: Address: When: CRISTINA IQBAL [address] [facility], [place], [place] [phone] Business (1) In 3 days 12/06/2021 DIAGNOSIS: 1:Upper abdominal pain; 2:Gastritis; 3:Anxiety Normal [facility] ED Note-Physicianon 12-04-19 ED Note-Physician [...] Daily, # 30 tab(s), Refills(s) 0, [id number], 172.9, cm, 12/03/21 10:15:00 EDT, Height/Length Dosing, 46.2, kg, 12/03/21 10:15:00 EDT, Weight Dosing promethazine, 25 mg = 1 tab(s), Oral, q4hr, # 12 tab(s), Refills(s) 0, [id number], 172.9, cm, 12/03/21 10:15:00 EDT, Height/Length Dosing, 46.2, kg, 12/03/21 10:15:00 EDT, Weight Dosing promethazine, 25 mg = 1 supp, Rectal, q6hr, PRN as needed for nausea, Insert one per rectum every six hours as needed for nausea and vomiting, # 6 EA, Refills(s) 0, [id number], 172.9, cm, 12/03/21 10:15:00 EDT, Height/Length [...] mg/mL IV Misty, 20 mg, IV Push [id number] [F], 1000 mL, IV promethazine 25 mg/mL [...] PRN Follow-up With When Contact Information CRISTINA HOODMARYAMBoyd In 3 days 12/06/2021 EDT [address] [place] [address] [phone] Business (1) Additional Instructions: Patient Ed (more content not included)... Normal [facility] Comment on above: Result Comment: [...] these instructions at home: Medicines ? Take drza-mes-ijbeked and prescription medicines only as told by [...] 08/20/2008 Document Revised: 07/22/2018 Document Reviewed: 07/22/2018 Shared Performance Patient Education ? 2019 [employer] [place]. Abdominal Pain, Adult Pain in the abdomen [...] these instructions at home: Medicines ? Take nvim-djt-kvcuyim and prescription medicines only as told by [...] cons (more content not included)... Normal [facility] ED Patient Summaryon 022 ED Patient Summary (Inserted Image. Antoinette ble to display) [address] [address] Patient Discharge Instructions Person Information Name: SAI PINEDA Age: 51 Years Arrival Date: 12/03/2021 09:55:45 Discharge Diagnosis: 1:Upper abdominal pain; 2:Gastritis; 3:Anxiety Primary Care Physician: CRISTINA IQBAL CNP Provider Information Primary Provider: Vipin Pina MD Advanced Motorcycle Service Technician:None The exam and treatment you received in the Emergency Department were for an urgent problem and are not intended as complete care. It is important that you follow up with a doctor, nurse practitioner, or physician?s internal medicine physician assistant for ongoing care. If your [...] Address: When: CRISTINA IQBAL [address] [place], [place] [phone] Business (1) In 3 days 12/06/2021 In the event that this physician does not participate in your insurance network, please consult with your insurance company to find a nearby participating provider. Patient Education Materials: Gastritis, Adult, Pfbc-yr-Ongs; Abdominal Pain, Adult A MESSAGE TO ALL PATIENTS REGARDING OPIOIDS PRESCRIPTION OPIOIDS: WHAT YOU NEED TO KNOW Prescription opioids can be used to help relieve wywskvkw-yn-mtfett pain and are often prescribed following a [...] be struggling with addiction, tell your health career development director and ask for guidance or call [facility]? (more content not included)... Normal [facility] Hep Func Panelon 12-03-2021 Albumin [Mass/Vol] 5.3 g/dL High 3.3-5.0 [facility] Comment on above: Performed By: #### 1 6321463, 0489134, 5373416, 3124802, 8268353, 5740393, 8686698 #### [facility] [address] [place] [address] Albumin/Globulin (S) [Mass conc ratio] 1.8 Normal 1.1-2.2 [facility] Comment on above: Performed By: #### 1 4704109, 4329918, 9909806, 3666153, 1964016, 1871359, 8245110 #### [facility] [address] [place] [address] ALP [Catalytic activity/Vol] 79 Int._Unit/L Normal 21-98 [facility] Comment on above: Performed By: #### 1 6061539, 0207577, 2116357, 1141303, 7460507, 4819936, 8066064 #### [facility] [address] [place] [address] ALT No additional P-5'-P [Catalytic activity/Vol] 14 Int._Unit/L Normal 6-46 [facility] Comment on above: Performed By: #### 1 3559630, 6824428, 7464971, 0397092, 3215682, 2545656, 3446531 #### [facility] [address] [place] [address] AST [Catalytic activity/Vol] 21 Int._Unit/L Normal 5-43 [facility] Comment on above: Performed By: #### 1 7015580, 3804155, 2958357, 9809527, 5464172, 4282279, 1052507 #### [facility] [address] [place] [address] Bilirubin [Mass/Vol] 1.2 mg/dL High 0.0-1.1 [facility] Comment on above: Performed By: #### 1 8747110, 1987944, 0165114, 9997796, 8935074, 9626487, 4534397 #### [facility] [address] [place] [address] Bilirubin.direct [Mass/Vol] 0.2 mg/dL Normal 0.1-0.4 [facility] Comment on above: Performed By: #### 1 8304556, 6398400, 7650906, 2021553, 4684555, 5319406, 0671499 #### [facility] [address] [place] [address] Bilirubin.indirect [Mass or moles/Vol] 1.0 mg/dL High 0.1-0.9 [facility] Comment on above: Performed By: #### 1 8666441, 8673330, 2180835, 5091619, 6424226, 3909851, 6683844 #### [facility] [address] [place] [address] Globulin (S) [Mass/Vol] 3.0 g/dL Normal 1.4-4.0 [facility] Comment on above: Performed By: #### 1 8341935, 5530232, 7863373, 0586106, 1340949, 3845399, 0828593 #### [facility] [address] [place] [address] Protein [Mass/Vol] 8.3 g/dL High 6.0-7.8 [facility] Comment on above: Performed By: #### 1 7155844, 7840499, 9995012, 2176538, 8753630, 0759089, 6373203 #### [facility] [address] [place] [address] Lipase Levelon 12-03-2021 Lipase [Catalytic activity/Vol] 21 U/L Normal 13-58 [facility] Comment on above: Performed By: #### 1 8340577, 3573042, 4888371, 3580229, 1116424, 3548424, 2219599 #### [facility] [address] [place] [address] eGFRon 12-03-2021 GFR/1.73 sq M.predicted among blacks MDRD (S/P/Bld) [Vol rate/Area] mL/min/{1.73_m2} Normal >=59 [facility] Comment on above: Order Comment: Order added by Discern Expert. Result Comment: eGFR is race adjusted. AA=. Performed By: #### 1 1428843, 9801301, 1174475, 5858426, 8732153, 0080076, 9548021 #### [facility] [address] [place] [address] GFR/1.73 sq M.predicted among non-blacks MDRD (S/P/Bld) [Vol rate/Area] 52 mL/min/1.73 m2 Low >=59 [facility] Comment on above: Order Comment: Order added by Discern Expert. Result Comment: Internal Carver julian kidney disease could be indicated at eGFR's of less than 60 mL/min/1.73m2. Kidney failure is indicated at less than 15 mL/min/1.73m2. Performed By: #### 1 7185989, 1462389, 6784224, 1544533, 2576598, 3001616, 8172427 #### [facility] [address] [place] [address] CARDIAC SIMA ADMITon 022 CK [Catalytic activity/Vol] 72 U/L Normal 26-192 [facility] Comment on above: Performed By: #### S ADOREUM #### [facility] [address] [place] [address] Dr. Prince Olivas CK.MB [Mass/Vol] 1.28 ng/mL Normal <=3.60 [facility] Comment on above: Performed By: #### S ELEVTOUM #### [facility] [address] [place] [address] Dr. Prince Olivas HSTROP 5.4 pg/mL Normal 4.0-51.3 [facility] Comment on above: Result Comment: CUT- OFF POINTS HAVE BEEN ESTABLISHED BASED ON THE FOURTH UNIVERSAL DEFINITIONS OF MYOCARDIAL INFARCTION. THE UPPER REFERENCE LIMIT (URL) OF TROPONIN, DEFINED THE 99TH PERCENTILE OF cTnI DISTRIBUTION IN A REFERENCE POPULATION, HAS BEEN CONFIRMED THE DECISION THRESHOLD FOR CA DIAGNOSIS. Performed By: #### S ELVETOUM #### [facility] [address] [place] [address] Dr. Prince Olivas JENNIFER 58 ng/mL Normal 9-82 [facility] Comment on above: Performed By: #### S ELNIUM #### [facility] [address] [place] [address] Dr. Prince Olivas CBC AUTO DIFFon 11-14-2021 BASO # 0.1 103/ul Normal 0.0-0.1 [facility] Comment on above: Performed By: #### L IPID, CMP #### [facility] [address] [place] [address] Dr. Prince Oliavs Basophils/100 WBC (Bld) 0.6 % Normal 0.2-2.0 [facility] Comment on above: Performed By: #### L IPID, CMP #### [facility] [address] [place] [address] Dr. Prince Olivas EO # 0.1 103/ul Normal 0.0-0.7 [facility] Comment on above: Performed By: #### L IPID, CMP #### [facility] [address] [place] [address] Dr. Prince Olivas Eosinophils/100 WBC (Bld) 0.9 % Normal 0.9-7.0 [facility] Comment on above: Performed By: #### L IPID, CMP #### [facility] [address] [place] [address] Dr. Prince Olivas Erythrocyte distribution width (RBC) [Ratio] 13.0 % Normal 11.0-15.0 [facility] Comment on above: Performed By: #### L IPID, CMP #### [facility] [address] [place] [address] Dr. Prince Olivas Hematocrit (Bld) [Volume fraction] 46.3 % Normal 36.0-48.0 [facility] Comment on above: Performed By: #### L IPID, CMP #### [facility] [address] [place] [address] Dr. Prince Olivas Hemoglobin (Bld) [Mass/Vol] 15.8 g/dL Normal 12.0-16.0 [facility] Comment on above: Performed By: #### L IPID, CMP #### [facility] [address] [place] [address] Dr. Prince Olivas IG # 0.03 10e3/ul Normal 0.00-0.03 [facility] Comment on above: Performed By: #### L IPID, CMP #### [facility] [address] [address] [address] Prince Olivas IG % 0.3 % Normal 0.0-0.5 [facility] Comment on above: Performed By: #### L IPID, CMP #### [facility] [address] [address] [address] Prince Olivas LYMPH # 2.8 103/ul Normal 1.2-3.8 [facility] Comment on above: Performed By: #### L IPID, CMP #### [facility] [address] [address] [address] Prince Olivas Lymphocytes/100 WBC (Bld) 31.8 % Normal 20.5-60.0 [facility] Comment on above: Performed By: #### L IPID, CMP #### [facility] [address] [place] [address] Dr. Prince Olivas MANUAL DIFF REQ NO Normal [facility] Comment on above: Performed By: #### L IPID, CMP #### [facility] [address] [place] [address] Dr. Prince Olivas MCH (RBC) [Entitic mass] 31.5 pg Normal 26.7-34.0 [facility] Comment on above: Performed By: #### L IPID, CMP #### [facility] [address] [place] [address] Dr. Prince Olivas MCHC (RBC) [Mass/Vol] 34.1 g/dL Normal 29.9-35.2 [facility] Comment on above: Performed By: #### L IPID, CMP #### [facility] [address] [place] [address] Dr. Prince Olivas MCV (RBC) [Entitic vol] 92.4 fL Normal 81.0-99.0 [facility] [facility] Comment on above: Performed By: #### L IPID, CMP #### [facility] [address] [place] [address] Dr. Prince Olivas MONO # 0.6 103/ul Normal 0.3-0.8 [facility] Comment on above: Performed By: #### L IPID, CMP #### [facility] [address] [place] [address] Dr. Prince Olivas Monocytes/100 WBC (Bld) 6.8 % Normal 1.7-12.0 [facility] Comment on above: Performed By: #### L IPID, CMP #### [facility] [address] [place] [address] Dr. Prince Olivas NEUT # 5.3 103/ul Normal 1.4-6.5 [facility] Comment on above: Performed By: #### L IPID, CMP #### [facility] [address] [place] [address] Dr. Prince Olivas Neutrophils/100 WBC (Bld) 59.6 % Normal 43.0-75.0 [facility] Comment on above: Performed By: #### L IPID, CMP #### [facility] [address] [place] [address] Dr. Prince Olivas Platelet mean volume (Bld) [Entitic vol] 11.6 fL Normal 9.5-13.5 [facility] Comment on above: Performed By: #### L IPID, CMP #### [facility] [address] [place] [address] Dr. Prince Olivas PLT 185 103/ul Normal 150-450 [facility] Comment on above: Performed By: #### L IPID, CMP #### [facility] [address] [place] [address] Dr. Prince Olivas RBC 5.01 106/ul Normal 4.20-5.40 [facility] Comment on above: Performed By: #### L IPID, CMP #### [facility] [address] [place] [address] Dr. Prince Olivas WBC 8.9 103/ul Normal 4.0-11.0 [facility] Comment on above: Performed By: #### L IPID, CMP #### [facility] [address] [place] [address] Dr. Prince Olivas LIPASEon 11-14-2021 Lipase [Catalytic activity/Vol] 84.0 U/L Normal 73.0-393.0 [facility] Comment on above: Performed By: #### S ELNIUM #### [facility] [address] [address] [address] Prince Olivas PROF 14(COMP METB)on 022 Albumin [Mass/Vol] 4.1 g/dL Normal 3.4-5.0 [facility] Comment on above: Performed By: #### S ELNIUM #### [facility] [address] [place] [address] Dr. Prince Olivas Albumin/Globulin [Mass ratio] 1.6 {ratio} Normal [facility] Comment on above: Performed By: #### S ELNIUM #### [facility] [address] [place] [address] Dr. Prince Olivas ALP [Catalytic activity/Vol] 76 U/L Normal 46-116 [facility] Comment on above: Performed By: #### S ELNIUM #### [facility] [address] [place] [address] Dr. Prince Olivas ALT [Catalytic activity/Vol] 14 U/L Normal 14-59 [facility] Comment on above: Performed By: #### S ELNIUM #### [facility] [address] [place] [address] Dr. Prince Olivas Anion gap [Moles/Vol] 17.7 mmol/L Normal [facility] Comment on above: Performed By: #### S ELNIUM #### [facility] [address] [place] [address] Dr. Prince Olivas AST [Catalytic activity/Vol] 15 U/L Normal 15-37 [facility] Comment on above: Performed By: #### S ELNIUM #### [facility] [address] [place] [address] Dr. Prince Olivas Bilirubin [Mass/Vol] 0.7 mg/dL Normal 0.2-1.0 [facility] Comment on above: Performed By: #### S ELNIUM #### [facility] [address] [place] [address] Dr. Prince Olivas Calcium [Mass/Vol] 9.4 mg/dL Normal 8.5-10.1 [facility] Comment on above: Performed By: #### S ELNIUM #### [facility] [address] [address] [address] Prince Olivas Chloride [Moles/Vol] 104 mmol/L Normal 98-107 [facility] Comment on above: Performed By: #### S ELNIUM #### [facility] [address] [place] [address] Dr. Prince Olivas CO2 [Moles/Vol] 20.8 mmol/L Critically low 21.0-32.0 [facility] Comment on above: Performed By: #### S ELNIUM #### [facility] [address] [place] [address] Dr. Prince Olivas Creatinine [Mass/Vol] 0.96 mg/dL Normal 0.55-1.02 [facility] Comment on above: Performed By: #### S ELNIUM #### [facility] [address] [address] [address] Prince Olivas EGFR-AF CYMRAES >60 Normal >=60 [facility] Comment on above: Performed By: #### S ELNIUM #### [facility] [address] [place] [address] Dr. Prince Olivas EGFR-NON AF CYMRAES >60 Normal >=60 [facility] Comment on above: Performed By: #### S ELNIUM #### [facility] [address] [address] [address] Prince Olivas Globulin (S) [Mass/Vol] 2.6 g/dL Normal [facility] Comment on above: Performed By: #### S ELNIUM #### [facility] [address] [address] [address] Prince Olivas Glucose [Mass/Vol] 104 mg/dL Normal 74-106 [facility] Comment on above: Performed By: #### S ELNIUM #### [facility] [address] [place] [address] Dr. Prince Olivas Potassium [Moles/Vol] 3.5 mmol/L Normal 3.5-5.1 [facility] Comment on above: Performed By: #### S ELNIUM #### [facility] [address] [address] [address] Prince Olivas Protein [Mass/Vol] 6.7 g/dL Normal 6.4-8.2 [facility] Comment on above: Performed By: #### S ELNIUM #### [facility] [address] [address] [address] Prince Olivas Sodium [Moles/Vol] 139 mmol/L Normal 136-145 [facility] Comment on above: Performed By: #### S ELNIUM #### [facility] [address] [address] [address] Prince Oilvas Urea nitrogen [Mass/Vol] 10.0 mg/dL Normal 7.0-18.0 [facility] Comment on above: Performed By: #### S ELNIUM #### [facility] [address] [address] [address] Prince Olivas Urea nitrogen/Creatinine [Mass ratio] 10.4 mg/mg Normal [facility] Comment on above: Performed By: #### S ELNIUM #### [facility] [address] [place] [address] Dr. Prince Olivas XR ABD FLAT UP_PA [...] CHITRA ALFARO Date: 2021-11-14 18:10 Normal [facility] CBC AUTO DIFFon 11-09-2021 BASO # 0.0 103/ul Normal 0.0-0.1 [facility] Comment on above: Performed By: #### S ELNIUM #### [facility] [address] [place] [address] Dr. Prince Olivas Basophils/100 WBC (Bld) 0.3 % Normal 0.2-2.0 [facility] Comment on above: Performed By: #### S ELNIUM #### [facility] [address] [place] [address] Dr. Prince Olivas EO # 0.0 103/ul Normal 0.0-0.7 [facility] Comment on above: Performed By: #### S ELNIUM #### [facility] [address] [place] [address] Dr. Prince Olivas Eosinophils/100 WBC (Bld) 0.3 % Critically low 0.9-7.0 [facility] Comment on above: Performed By: #### S ELNIUM #### [facility] [address] [place] [address] Dr. Prince Olivas Erythrocyte distribution width (RBC) [Ratio] 13.1 % Normal 11.0-15.0 [facility] Comment on above: Performed By: #### S ELNIUM #### [facility] [address] [place] [address] Dr. Prince Olivas Hematocrit (Bld) [Volume fraction] 46.8 % Normal 36.0-48.0 [facility] Comment on above: Performed By: #### S ELNIUM #### [facility] [address] [place] [address] Dr. Prince Olivas Hemoglobin (Bld) [Mass/Vol] 15.8 g/dL Normal 12.0-16.0 [facility] Comment on above: Performed By: #### S ELNIUM #### [facility] [address] [place] [address] Dr. Prince Olivas IG # 0.03 10e3/ul Normal 0.00-0.03 [facility] Comment on above: Performed By: #### S ELNIUM #### [facility] [address] [place] [address] Dr. Prince Olivas IG % 0.3 % Normal 0.0-0.5 [facility] Comment on above: Performed By: #### S ELNIUM #### [facility] [address] [place] [address] Dr. Prince Olivas LYMPH # 2.9 103/ul Normal 1.2-3.8 [facility] Comment on above: Performed By: #### S ELNIUM #### [facility] [address] [place] [address] Dr. Prince Olivas Lymphocytes/100 WBC (Bld) 31.7 % Normal 20.5-60.0 [facility] Comment on above: Performed By: #### S ELNIUM #### [facility] [address] [place] [address] Dr. Prince Olivas MANUAL DIFF REQ NO Normal [facility] Comment on above: Performed By: #### S ELNIUM #### [facility] [address] [place] [address] Dr. Prince Olivas MCH (RBC) [Entitic mass] 31.9 pg Normal 26.7-34.0 [facility] Comment on above: Performed By: #### S ELNIUM #### [facility] [address] [place] [address] Dr. Prince Olivas MCHC (RBC) [Mass/Vol] 33.8 g/dL Normal 29.9-35.2 [facility] Comment on above: Performed By: #### S ELNIUM #### [facility] [address] [place] [address] Dr. Prince Olivas MCV (RBC) [Entitic vol] 94.5 fL Normal 81.0-99.0 [facility] Comment on above: Performed By: #### S ELNIUM #### [facility] [address] [place] [address] Dr. Prince Olivas MONO # 0.5 103/ul Normal 0.3-0.8 [facility] Comment on above: Performed By: #### S ELNIUM #### [facility] [address] [place] [address] Dr. Prince Olivas Monocytes/100 WBC (Bld) 5.2 % Normal 1.7-12.0 [facility] Comment on above: Performed By: #### S ELNIUM #### [facility] [address] [place] [address] Dr. Prince Olivas NEUT # 5.8 103/ul Normal 1.4-6.5 [facility] Comment on above: Performed By: #### S ELNIUM #### [facility] [address] [place] [address] Dr. Prince Olivas Neutrophils/100 WBC (Bld) 62.2 % Normal 43.0-75.0 [facility] Comment on above: Performed By: #### S ELNIUM #### [facility] [address] [place] [address] Dr. Prince Olivas Platelet mean volume (Bld) [Entitic vol] 11.1 fL Normal 9.5-13.5 [facility] Comment on above: Performed By: #### S ELNIUM #### [facility] [address] [place] [address] Dr. Prince Olivas PLT 218 103/ul Normal 150-450 [facility] Comment on above: Performed By: #### S ELNIUM #### [facility] [address] [place] [address] Dr. Prince Olivas RBC 4.95 106/ul Normal 4.20-5.40 [facility] Comment on above: Performed By: #### S ELNIUM #### [facility] [address] [place] [address] Dr. Prince Olivas WBC 9.3 103/ul Normal 4.0-11.0 [facility] Comment on above: Performed By: #### S ELNIUM #### [facility] [address] [place] [address] Dr. Prince Olivas PROF CHEM 8 (BAS METB)on Anion gap [Moles/Vol] 14.8 mmol/L Normal [facility] Comment on above: Performed By: #### C OPPER #### [facility] [address] [place] [address] Dr. Prince Olivas Calcium [Mass/Vol] 9.3 mg/dL Normal 8.5-10.1 [facility] Comment on above: Performed By: #### C OPPER #### [facility] [address] [place] [address] Dr. Prince Olivas Chloride [Moles/Vol] 105 mmol/L Normal 98-107 [facility] Comment on above: Performed By: #### C OPPER #### [facility] [address] [address] [address] Prince Olivas CO2 [Moles/Vol] 23.7 mmol/L Normal 21.0-32.0 [facility] Comment on above: Performed By: #### C OPPER #### [facility] [address] [place] [address] Dr. Prince Olivas Creatinine [Mass/Vol] 0.95 mg/dL Normal 0.55-1.02 [facility] Comment on above: Performed By: #### C OPPER #### [facility] [address] [place] [address] Dr. Prince Olivas EGFR-AF CYMRAES >60 Normal >=60 [facility] Comment on above: Performed By: #### C OPPER #### [facility] [address] [place] [address] Dr. Prince Olivas EGFR-NON AF CYMRAES >60 Normal >=60 [facility] Comment on above: Performed By: #### C OPPER #### [facility] [address] [place] [address] Dr. Prince Olivas Glucose [Mass/Vol] 103 mg/dL Normal 74-106 [facility] Comment on above: Performed By: #### C OPPER #### [facility] [address] [place] [address] Dr. Prince Olivas Potassium [Moles/Vol] 3.5 mmol/L Normal 3.5-5.1 [facility] Comment on above: Performed By: #### C OPPER #### [facility] [address] [place] [address] Dr. Prince Olivas Sodium [Moles/Vol] 140 mmol/L Normal 136-145 [facility] Comment on above: Performed By: #### C OPPER #### [facility] [address] [address] [address] Prince Olivas Urea nitrogen [Mass/Vol] 7.0 mg/dL Normal 7.0-18.0 [facility] Comment on above: Performed By: #### C OPPER #### [facility] [id number] Prince Olivas Urea nitrogen/Creatinine [Mass ratio] 7.4 mg/mg Normal [facility] Comment on above: Performed By: #### C OPPER #### [facility] [address] [address] [address] Prince Olivas TROPONIN, HIGH SENSITIVITYon 11-09-2021 HSTROP 4.3 pg/mL Normal 4.0-51.3 [facility] Comment on above: Result Comment: CUT- OFF POINTS HAVE BEEN ESTABLISHED BASED ON THE FOURTH UNIVERSAL DEFINITIONS OF MYOCARDIAL INFARCTION. THE UPPER REFERENCE LIMIT (URL) OF TROPONIN, DEFINED THE 99TH PERCENTILE OF cTnI DISTRIBUTION IN A REFERENCE POPULATION, HAS BEEN CONFIRMED THE DECISION THRESHOLD FOR CA DIAGNOSIS. Performed By: #### C OPPER #### [facility] [address] [place] [address] Dr. Prince Olivas XR CHEST 1 Von [...] BELEN REGAN Date: 2021-11-09 17:05 Normal [facility] CARDIAC SIMA ADMITon 022 CK [Catalytic activity/Vol] 62 U/L Normal 26-192 [facility] Comment on above: Performed By: #### M MA2 #### [facility] [address] [place] [address] Dr. Prince Olivas CK.MB [Mass/Vol] 0.37 ng/mL Normal <=3.60 [facility] Comment on above: Performed By: #### M MA2 #### [facility] [address] [place] [address] Dr. Prince Olivas HSTROP 3.5 pg/mL Critically low 4.0-51.3 [facility] Comment on above: Result Comment: CUT- OFF POINTS HAVE BEEN ESTABLISHED BASED ON THE FOURTH UNIVERSAL DEFINITIONS OF MYOCARDIAL INFARCTION. THE UPPER REFERENCE LIMIT (URL) OF TROPONIN, DEFINED THE 99TH PERCENTILE OF cTnI DISTRIBUTION IN A REFERENCE POPULATION, HAS BEEN CONFIRMED THE DECISION THRESHOLD FOR CA DIAGNOSIS. Performed By: #### M MA2 #### [facility] [address] [place] [address] Dr. Prince Olivas JENNIFER 40 ng/mL Normal 9-82 [facility] Comment on above: Performed By: #### M MA2 #### [facility] [address] [place] [address] Dr. Prince Olivas CBC AUTO DIFFon 10-04-2021 BASO # 0.0 103/ul Normal 0.0-0.1 [facility] Comment on above: Performed By: #### C BC #### [facility] [address] [place] [address] Dr. Prince Olivas Basophils/100 WBC (Bld) 0.6 % Normal 0.2-2.0 [facility] Comment on above: Performed By: #### C BC #### [facility] [address] [place] [address] Dr. Prince Olivas EO # 0.3 103/ul Normal 0.0-0.7 [facility] Comment on above: Performed By: #### C BC #### [facility] [address] [place] [address] Dr. Prince Olivas Eosinophils/100 WBC (Bld) 3.7 % Normal 0.9-7.0 [facility] Comment on above: Performed By: #### C BC #### [facility] [address] [place] [address] Dr. Prince Olivas Erythrocyte distribution width (RBC) [Ratio] 13.4 % Normal 11.0-15.0 [facility] Comment on above: Performed By: #### C BC #### [facility] [address] [place] [address] Dr. Prince Olivas Hematocrit (Bld) [Volume fraction] 42.8 % Normal 36.0-48.0 [facility] Comment on above: Performed By: #### C BC #### [facility] [address] [place] [address] Dr. Prince Olivas Hemoglobin (Bld) [Mass/Vol] 14.1 g/dL Normal 12.0-16.0 [facility] Comment on above: Performed By: #### C BC #### [facility] [address] [place] [address] Dr. Prince Olivas IG # 0.02 10e3/ul Normal 0.00-0.03 [facility] Comment on above: Performed By: #### C BC #### [facility] [address] [place] [address] Dr. Prince Olivas IG % 0.3 % Normal 0.0-0.5 [facility] Comment on above: Performed By: #### C BC #### [facility] [address] [place] [address] Dr. Prince Olivas LYMPH # 2.0 103/ul Normal 1.2-3.8 [facility] Comment on above: Performed By: #### C BC #### [facility] [address] [place] [address] Dr. Prince Olivas Lymphocytes/100 WBC (Bld) 27.6 % Normal 20.5-60.0 [facility] Comment on above: Performed By: #### C BC #### [facility] [address] [place] [address] Dr. Prince Olivas MANUAL DIFF REQ NO Normal [facility] Comment on above: Performed By: #### C BC #### [facility] [address] [place] [address] Dr. Prince Olivas MCH (RBC) [Entitic mass] 31.4 pg Normal 26.7-34.0 [facility] Comment on above: Performed By: #### C BC #### [facility] [address] [address] [address] Prince Olivas MCHC (RBC) [Mass/Vol] 32.9 g/dL Normal 29.9-35.2 [facility] Comment on above: Performed By: #### C BC #### [facility] [address] [address] [address] Prince Olivas MCV (RBC) [Entitic vol] 95.3 fL Normal 81.0-99.0 [facility] Comment on above: Performed By: #### C BC #### [facility] [address] [place] [address] Dr. Prince Olivas MONO # 0.6 103/ul Normal 0.3-0.8 [facility] Comment on above: Performed By: #### C BC #### [facility] [address] [place] [address] Dr. Prince Olivas Monocytes/100 WBC (Bld) 8.2 % Normal 1.7-12.0 [facility] Comment on above: Performed By: #### C BC #### [facility] [address] [place] [address] Dr. Prince Olivas NEUT # 4.2 103/ul Normal 1.4-6.5 [facility] Comment on above: Performed By: #### C BC #### [facility] [address] [place] [address] Dr. Prince Olivas Neutrophils/100 WBC (Bld) 59.6 % Normal 43.0-75.0 [facility] Comment on above: Performed By: #### C BC #### [facility] [address] [place] [address] Dr. Prince Olivas Platelet mean volume (Bld) [Entitic vol] 11.1 fL Normal 9.5-13.5 [facility] Comment on above: Performed By: #### C BC #### [facility] [address] [place] [address] Dr. Prince Olivas PLT 194 103/ul Normal 150-450 [facility] Comment on above: Performed By: #### C BC #### [facility] [address] [place] [address] Dr. Prince Olivas RBC 4.49 106/ul Normal 4.20-5.40 [facility] Comment on above: Performed By: #### C BC #### [facility] [address] [place] [address] Dr. Prince Olivas WBC 7.1 103/ul Normal 4.0-11.0 [facility] Comment on above: Performed By: #### C BC #### [facility] [address] [place] [address] Dr. Prince Olivas PROF 14(COMP METB)on 022 Albumin [Mass/Vol] 3.9 g/dL Normal 3.4-5.0 [facility] Comment on above: Performed By: #### M MA2 #### [facility] [address] [place] [address] Dr. Prince Olivas Albumin/Globulin [Mass ratio] 1.4 {ratio} Normal [facility] Comment on above: Performed By: #### M MA2 #### [facility] [address] [place] [address] Dr. Prince Olivas ALP [Catalytic activity/Vol] 71 U/L Normal 46-116 [facility] Comment on above: Performed By: #### M MA2 #### [facility] [address] [place] [address] Dr. Prince Olivas ALT [Catalytic activity/Vol] 18 U/L Normal 14-59 [facility] Comment on above: Performed By: #### M MA2 #### [facility] [address] [place] [address] Dr. Prince Olivas Anion gap [Moles/Vol] 10.1 mmol/L Normal [facility] Comment on above: Performed By: #### M MA2 #### [facility] [address] [place] [address] Dr. Prince Olivas AST [Catalytic activity/Vol] 11 U/L Critically low 15-37 [facility] Comment on above: Performed By: #### M MA2 #### [facility] [address] [address] [address] Prince Olivas Bilirubin [Mass/Vol] 0.4 mg/dL Normal 0.2-1.0 [facility] Comment on above: Performed By: #### M MA2 #### [facility] [address] [address] [address] Prince Olivas Calcium [Mass/Vol] 8.8 mg/dL Normal 8.5-10.1 [facility] Comment on above: Performed By: #### M MA2 #### [facility] [address] [address] [address] Prince Olivas Chloride [Moles/Vol] 105 mmol/L Normal 98-107 [facility] Comment on above: Performed By: #### M MA2 #### [facility] [address] [place] [address] Dr. Prince Olivas CO2 [Moles/Vol] 27.0 mmol/L Normal 21.0-32.0 [facility] Comment on above: Performed By: #### Marine MA2 #### [facility] [address] [address] [address] Prince Olivas Creatinine [Mass/Vol] 0.67 mg/dL Normal 0.55-1.02 [facility] Comment on above: Performed By: #### M MA2 #### [facility] [address] [place] [address] Dr. Prince Olivas EGFR-AF CYMRAES >60 Normal >=60 [facility] Comment on above: Performed By: #### Marine MA2 #### [facility] [address] [place] [address] Dr. Prince Olivas EGFR-NON AF CYMRAES >60 Normal >=60 [facility] Comment on above: Performed By: #### M MA2 #### [facility] [address] [place] [address] Dr. Prince Olivas Globulin (S) [Mass/Vol] 2.7 g/dL Normal [facility] Comment on above: Performed By: #### Marine MA2 #### [facility] [address] [place] [address] Dr. Prince Olivas Glucose [Mass/Vol] 105 mg/dL Normal 74-106 [facility] Comment on above: Performed By: #### M MA2 #### [facility] [address] [address] [address] Prince Olivas Potassium [Moles/Vol] 4.1 mmol/L Normal 3.5-5.1 [facility] Comment on above: Performed By: #### M MA2 #### [facility] [address] [address] [address] Prince Olivas Protein [Mass/Vol] 6.6 g/dL Normal 6.4-8.2 [facility] Comment on above: Performed By: #### M MA2 #### [facility] [address] [address] [address] Prince Olivas Sodium [Moles/Vol] 138 mmol/L Normal 136-145 [facility] Comment on above: Performed By: #### Marine MA2 #### [facility] [address] [address] [address] Prince Olivas Urea nitrogen [Mass/Vol] 7.0 mg/dL Normal 7.0-18.0 [facility] Comment on above: Performed By: #### Marine MA2 #### [facility] [address] [address] [address] Prince Olivas Urea nitrogen/Creatinine [Mass ratio] 10.4 mg/mg Normal [facility] Comment on above: Performed By: #### M MA2 #### [facility] [address] [address] [address] Prince Olivas XR CHEST 1 Von [...] by: BARBI HENRY Date: 2021-10-04 10:58 Normal [facility] PROLACTINon 07-12-2022 Prolactin 149.0 ng/mL Critically high 4.8-23.3 [facility] Comment on above: Performed By: #### L IPID, CMP #### [facility] [address] [address] [address] Prince Olivas LIPID PROFILEon 09-25-2021 CHOL-HDL RATIO NORM SEE BELOW Normal [facility] Comment on above: Result Comment: 3.3 - 4.4 LOW RISK 4.4 - 7.1 AVERAGE RISK 7.1 - 11.0 MODERATE RISK >11.0 HIGH RISK Performed By: #### L IPID, CMP #### [facility] [address] [address] [address] Prince Olivas Cholesterol [Mass/Vol] 205 mg/dL Critically high <=200 [facility] Comment on above: Performed By: #### L IPID, CMP #### [facility] [address] [address] [address] Prince Olivas Cholesterol in HDL [Mass/Vol] 46 mg/dL Normal 40-60 [facility] Comment on above: Performed By: #### L IPID, CMP #### [facility] [address] [address] [address] Prince Olivas Cholesterol in LDL [Mass/Vol] 148.6 mg/dL Normal [facility] Comment on above: Performed By: #### L IPID, CMP #### [facility] [address] [address] [address] Prince Olivas Cholesterol.total/C holesterol in HDL [Mass ratio] 4.5 {ratio} Normal [facility] Comment on above: Performed By: #### L IPID, CMP #### [facility] [address] [address] [address] Prince Olivas HDL NORMAL > or = 60 mg/dl - LO W CARDIOVASCULAR RISK <40 mg/dl - HIGH CARDIOVASCULAR RISK Normal [facility] Comment on above: Performed By: #### L IPID, CMP #### [facility] [address] [address] [address] Prince Olivas LDL CALC NORMAL SEE BELOW Normal [facility] Comment on above: Result Comment: <100 mg/dl OPTIMAL 100 - 129 mg/dl NEAR OR ABOVE OPTIMAL 130 - 159 mg/dl BORDERLINE HIGH 160 - 189 mg/dl HIGH >190 mg/dl VERY HIGH Performed By: #### L IPID, CMP #### [facility] [address] [place] [address] Dr. Prince Olivas Triglyceride [Mass/Vol] 52 mg/dL Normal <=150 [facility] Comment on above: Performed By: #### L IPID, CMP #### [facility] [address] [place] [address] Dr. Prince Olivas VLDL CALC 10.4 mg/dL Normal [facility] Comment on above: Performed By: #### L IPID, CMP #### [facility] [address] [place] [address] Dr. Prince Olivas PROF 14(COMP METB)on 022 Albumin [Mass/Vol] 3.7 g/dL Normal 3.4-5.0 [facility] Comment on above: Performed By: #### L IPID, CMP #### [facility] [address] [place] [address] Dr. Prince Olivas Albumin/Globulin [Mass ratio] 1.5 {ratio} Normal [facility] Comment on above: Performed By: #### L IPID, CMP #### [facility] [address] [place] [address] Dr. Prince Olivas ALP [Catalytic activity/Vol] 66 U/L Normal 46-116 [facility] Comment on above: Performed By: #### L IPID, CMP #### [facility] [address] [place] [address] Dr. Prince Olivas ALT [Catalytic activity/Vol] 14 U/L Normal 14-59 [facility] Comment on above: Performed By: #### L IPID, CMP #### [facility] [address] [place] [address] Dr. Prince Olivas Anion gap [Moles/Vol] 13.8 mmol/L Normal [facility] Comment on above: Performed By: #### L IPID, CMP #### [facility] [address] [place] [address] Dr. Prince Olivas AST [Catalytic activity/Vol] 10 U/L Critically low 15-37 [facility] Comment on above: Performed By: #### L IPID, CMP #### [facility] [address] [place] [address] Dr. Prince Olivas Bilirubin [Mass/Vol] 0.3 mg/dL Normal 0.2-1.0 [facility] Comment on above: Performed By: #### L IPID, CMP #### [facility] [address] [place] [address] Dr. Prince Olivas Calcium [Mass/Vol] 8.9 mg/dL Normal 8.5-10.1 [facility] Comment on above: Performed By: #### L IPID, CMP #### [facility] [address] [place] [address] Dr. Prince Olivas Chloride [Moles/Vol] 106 mmol/L Normal 98-107 [facility] Comment on above: Performed By: #### L IPID, CMP #### [facility] [address] [place] [address] Dr. Prince Olivas CO2 [Moles/Vol] 24.0 mmol/L Normal 21.0-32.0 [facility] Comment on above: Performed By: #### L IPID, CMP #### [facility] [address] [place] [address] Dr. Prince Olivas Creatinine [Mass/Vol] 1.05 mg/dL Critically high 0.55-1.02 [facility] Comment on above: Performed By: #### L IPID, CMP #### [facility] [address] [place] [address] Dr. Prince Olivas EGFR-AF CYMRAES >60 Normal >=60 [facility] Comment on above: Performed By: #### L IPID, CMP #### [facility] [address] [place] [address] Dr. Prince Olivas EGFR-NON AF CYMRAES 55 mL/min/1.73m2 Critically low >=60 [facility] Comment on above: Performed By: #### L IPID, CMP #### [facility] [address] [address] [address] Prince Olivas Globulin (S) [Mass/Vol] 2.5 g/dL Normal [facility] Comment on above: Performed By: #### L IPID, CMP #### [facility] [address] [address] [address] Prince Olivas Glucose [Mass/Vol] 107 mg/dL Critically high 74-106 T [facility] Comment on above: Performed By: #### L IPID, CMP #### [facility] [address] [place] [address] Dr. Prince Olivas Potassium [Moles/Vol] 3.8 mmol/L Normal 3.5-5.1 [facility] Comment on above: Performed By: #### L IPID, CMP #### [facility] [address] [place] [address] Dr. Prince Olivas Protein [Mass/Vol] 6.2 g/dL Critically low 6.4-8.2 Th [facility] Comment on above: Performed By: #### L IPID, CMP #### [facility] [address] [address] [address] Prince Olivas Sodium [Moles/Vol] 140 mmol/L Normal 136-145 [facility] Comment on above: Performed By: #### L IPID, CMP #### [facility] [address] [place] [address] Dr. Prince Olivas Urea nitrogen [Mass/Vol] 10.0 mg/dL Normal 7.0-18.0 [facility] Comment on above: Performed By: #### L IPID, CMP #### [facility] [address] [place] [address] Dr. Prince Olivas Urea nitrogen/Creatinine [Mass ratio] 9.5 mg/mg Normal [facility] Comment on above: Performed By: #### L IPID, CMP #### [facility] [address] [place] [address] Dr. Prince Olivas Vital Signs Date Time Vital Sign Value Performing Clinician Facility 06-25-2024 11:41-0400 Body height 173.99 cm [facility] 06-25-2024 11:41-0400 Body mass index (BMI) [Ratio] 21.7 kg/m2 [facility] 06-25-2024 11:41-0400 Body weight 65.77 kg [facility] 06-25-2024 11:41-0400 Diastolic blood pressure 73 mm[Hg] [facility] 06-25-2024 11:41-0400 Heart rate 104 /min [facility] 06-25-2024 11:41-0400 Inhaled oxygen flow rate 1 L/min [facility] 06-25-2024 11:41-0400 Respiratory rate 20 /min [facility] 06-25-2024 11:41-0400 SaO2% (BldA) [Mass fraction] 96 % [facility] 06-25-2024 11:41-0400 Systolic blood pressure 106 mm[Hg] [facility] 03-23-2024 13:10-0500 Blood Pressure Location Sandoval Magañali [facility] 03-23-2024 13:10-0500 Diastolic blood pressure 70 mm[Hg] Mohamad Mouchli [facility] 03-23-2024 13:10-0500 Heart rate 96 /min Mohamad Mouchli [facility] 03-23-2024 13:10-0500 Systolic blood pressure 102 mm[Hg] Mohamad Mouchli [facility] 02-25-2024 11:16-0500 Diastolic blood pressure 64 mm[Hg] Mohamad Mouchli [facility] 02-25-2024 11:16-0500 Heart rate 71 /min Mohamad Mouchli [facility] 02-25-2024 11:16-0500 Mean blood pressure 80 mm[Hg] Mohamad Mouchli [facility] 02-25-2024 11:16-0500 Respiratory rate 10 /min Mohamad Mouchli [facility] 02-25-2024 11:16-0500 SaO2% (BldA) [Mass fraction] 96 % Mohamad Mouchli [facility] 02-25-2024 11:16-0500 Systolic blood pressure 113 mm[Hg] Mohamad Mouchli [facility] 02-25-2024 11:05-0500 Diastolic blood pressure 75 mm[Hg] Mohamad Mouchli [facility] 02-25-2024 11:05-0500 Heart rate 73 /min Mohamad Mouchli [facility] 02-25-2024 11:05-0500 Mean blood pressure 86 mm[Hg] Mohamad Mouchli [facility] 02-25-2024 11:05-0500 Respiratory rate 18 /min Mohamad Mouchli [facility] 02-25-2024 11:05-0500 SaO2% (BldA) [Mass fraction] 95 % Mohamad Mouchli [facility] 02-25-2024 11:05-0500 Systolic blood pressure 107 mm[Hg] Mohamad Mouchli [facility] 02-25-2024 10:51-0500 Body temperature 98.24 [degF] Mohamad Mouchli [facility] 02-25-2024 10:51-0500 Diastolic blood pressure 92 mm[Hg] Mohamad Mouchli [facility] 02-25-2024 10:51-0500 Heart rate 81 /min Mohamad Mouchli [facility] 02-25-2024 10:51-0500 Mean blood pressure 96 mm[Hg] Mohamad Mouchli [facility] 02-25-2024 10:51-0500 Respiratory rate 18 /min Mohamad Mouchli [facility] 02-25-2024 10:51-0500 SaO2% (BldA) [Mass fraction] 97 % Mohamad Mouchli [facility] 02-25-2024 10:51-0500 Systolic blood pressure 103 mm[Hg] Mohamad Mouchli [facility] 02-25-2024 10:45-0500 Respiratory rate 15 /min Mohamad Mouchli [facility] 02-25-2024 10:40-0500 Respiratory rate 16 /min Mohamad Mouchli [facility] 02-25-2024 10:35-0500 Respiratory rate 17 /min Mohamad Mouchli [facility] 02-25-2024 09:14-0500 Blood Pressure Location Mohamad Mouchli [facility] 02-25-2024 09:14-0500 Body temperature 97.88 [degF] Mohamad Mouchli [facility] 02-21-2024 08:41-0500 Blood Pressure Location Mohamad Mouchli [facility] 02-21-2024 08:41-0500 Diastolic blood pressure 83 mm[Hg] Mohamad Mouchli [facility] 02-21-2024 08:41-0500 Heart rate 80 /min Mohamad Mouchli [facility] 02-21-2024 08:41-0500 Systolic blood pressure 134 mm[Hg] Mohamad Mouchli [facility] 01-16-2024 10:08-0400 Blood Pressure Location Mohamad Mouchli [facility] 01-16-2024 10:08-0400 Diastolic blood pressure 76 mm[Hg] Mohamad Mouchli [facility] 01-16-2024 10:08-0400 Heart rate 73 /min Mohamad Mouchli [facility] 01-16-2024 10:08-0400 Systolic blood pressure 116 mm[Hg] Mohamad Mouchli [facility] 09-24-2023 15:00-0400 Diastolic blood pressure 78 mm[Hg] José Luis Astrid [facility] 09-24-2023 15:00-0400 Heart rate 66 /min José Luis Astrid [facility] 09-24-2023 15:00-0400 Mean blood pressure 95 mm[Hg] José Luis Astrid [facility] 09-24-2023 15:00-0400 Respiratory rate 16 /min José Luis Astrid [facility] 09-24-2023 15:00-0400 Systolic blood pressure 128 mm[Hg] José Luis Astrid [facility] 09-24-2023 14:00-0400 Diastolic blood pressure 69 mm[Hg] José Luis Astrid [facility] 09-24-2023 14:00-0400 Heart rate 75 /min José Luis Astrid [facility] 09-24-2023 14:00-0400 Mean blood pressure 88 mm[Hg] José Luis Resendiz [facility] 09-24-2023 14:00-0400 SaO2% (BldA) [Mass fraction] 95 % José Luis Resendiz [facility] 09-24-2023 14:00-0400 Systolic blood pressure 126 mm[Hg] José Luis Resendiz [facility] 09-24-2023 12:58-0400 Body temperature 98.06 [degF] José Luis Resendiz [facility] 09-24-2023 12:58-0400 Diastolic blood pressure 82 mm[Hg] José Luis Resendiz [facility] 09-24-2023 12:58-0400 Heart rate 89 /min José Luis Resendiz [facility] 09-24-2023 12:58-0400 Respiratory rate 18 /min José Luis Resendiz [facility] 09-24-2023 12:58-0400 SaO2% (BldA) [Mass fraction] 96 % José Luis Resendiz [facility] 09-24-2023 12:58-0400 Systolic blood pressure 125 mm[Hg] José Luis Resendiz [facility] 04-04-2022 15:50-0500 Diastolic blood pressure 70 mm[Hg] Tiffani Morales MD Work Phone: [facility] 04-04-2022 15:50-0500 Heart rate 73 /min Tiffani Morales MD Work Phone: [facility] 04-04-2022 15:50-0500 Respiratory rate 16 /min Tiffani Morales MD Work Phone: [facility] 04-04-2022 15:50-0500 SaO2% (BldA) [Mass fraction] 97 % Tiffani Morales MD Work Phone: [facility] 04-04-2022 15:50-0500 Systolic blood pressure 117 mm[Hg] Tiffani Morales MD Work Phone: [facility] 04-04-2022 15:26-0500 Body temperature 97.2 [degF] Tiffani Morales MD Work Phone: [facility] 04-04-2022 12:51-0500 Body height 172.7 cm Tiffani Morales MD Work Phone: [facility] 04-04-2022 12:51-0500 Body weight 45.81 kg Tiffani Morales MD Work Phone: [facility] 01-01-2022 16:50-0400 Diastolic blood pressure 69 mm[Hg] Tiffani Morales MD Work Phone: [facility] 01-01-2022 16:50-0400 Heart rate 69 /min Tiffani Morales MD Work Phone: [facility] 01-01-2022 16:50-0400 Respiratory rate 16 /min Tiffani Morales MD Work Phone: [facility] 01-01-2022 16:50-0400 SaO2% (BldA) [Mass fraction] 95 % Tiffani Morales MD Work Phone: [facility] 01-01-2022 16:50-0400 Systolic blood pressure 110 mm[Hg] Tiffani Morales MD Work Phone: [facility] 01-01-2022 16:33-0400 Body temperature 98.1 [degF] Tiffani Morales MD Work Phone: [facility] 01-01-2022 15:39-0400 Body height 172.7 cm Tiffani Morales MD Work Phone: [facility] 01-01-2022 15:39-0400 Body weight 45.81 kg Tiffani Morales MD Work Phone: [facility] 06-20-2021 13:37-0400 Body height 174 cm Robb Evans MD Work Phone: [facility] 06-20-2021 13:37-0400 Body mass index (BMI) [Ratio] 17.98 kg/m2 Robb Evans MD Work Phone: [facility] 06-20-2021 13:37-0400 Body weight 54.43 kg Robb Evans MD Work Phone: [facility] 06-20-2021 13:37-0400 Diastolic blood pressure 69 mm[Hg] Robb Evans MD Work Phone: [facility] 06-20-2021 13:37-0400 Heart rate 77 /min Robb Evans MD Work Phone: [facility] 06-20-2021 13:37-0400 Respiratory rate 16 /min Robb Evans MD Work Phone: [facility] 06-20-2021 13:37-0400 SaO2% (BldA) [Mass fraction] 95 % Robb Evans MD Work Phone: [facility] 06-20-2021 13:37-0400 Systolic blood pressure 102 mm[Hg] Robb Evans MD Work Phone: [facility] 07-18-2020 14:10-0400 Body height 174 cm Robb Evans MD Work Phone: [facility] 07-18-2020 14:10-0400 Body mass index (BMI) [Ratio] 17.38 kg/m2 Robb Evans MD Work Phone: [facility] 07-18-2020 14:10-0400 Body weight 52.62 kg Robb Evans MD Work Phone: [facility] 07-18-2020 14:10-0400 Diastolic blood pressure 68 mm[Hg] Robb Evans MD Work Phone: [facility] 07-18-2020 14:10-0400 Heart rate 84 /min Robb Evans MD Work Phone: [facility] 07-18-2020 [id number]:10040 Respiratory rate 16 /min Robb Evans MD Work Phone: [facility] 07-18-2020 14:10-0400 SaO2% (BldA) [Mass fraction] 96 % Robb Evans MD Work Phone: [facility] 07-18-2020 14:10-0400 Systolic blood pressure 94 mm[Hg] Robb Evans MD Work Phone: [facility] Encounters Encounter Date Encounter Type Care Provider Facility Start: 07-15-2024 End: 07-15-2024 ambulatory CROP PEST CONTROL SPECIALIST Lala L Carolee Facility[facility] Start: 06-25-2024 End: 06-25-2024 ambulatory [facility] Work Phone: Start: 06-25-2024 End: 06-25-2024 Patient encounter procedure [facility] Physician [facility] Work Phone: Start: 06-09-2024 End: 06-09-2024 ambulatory CR[employer] PE[employer] CONTROL SPECIALIST Lala L Carolee Facility:[facility] Start: 06-03-2024 End: 06-03-2024 ambulatory CROP PEST CONTROL SPECIALIST Lala L Carolee Facility:[facility] Start: 06-02-2024 End: 07-03-2024 ambulatory CROP PE[employer] CONTROL SPECIALIST Lala L Carolee Facility:[id number] Start: 05-12-2024 End: 05-12-2024 ambulatory CROP PEST CONTROL SPECIALIST Lala L Carolee Facility:[facility] Start: 05-11-2024 End: 06-02-2024 ambulatory CROP PEST CONTROL SPECIALIST Lala L Carolee Facility:[id number] Start: 03-23-2024 End: 03-23-2024 ambulatory Sandoval Rae Facility:[facility] Start: 03-23-2024 End: 03-23-2024 Patient encounter procedure Sandoval Rae [facility] Start: 03-15-2024 End: 03-15-2024 ambulatory Eligioulices Wayneeck Facility:[facility] Start: 02-25-2024 End: 02-25-2024 ambulatory Teresad Santosh Rae Facility:[facility] Start: 02-25-2024 End: 02-25-2024 Patient encounter procedure Sandoval AYaw Rae [facility] Start: 02-21-2024 End: 02-21-2024 ambulatory Teresad AYaw Rae Facility:[facility] Start: 02-21-2024 End: 02-21-2024 Patient encounter procedure Mohamad A. Mouchli [facility] Start: 02-18-2024 End: 02-18-2024 ambulatory [facility] Zarco [facility] Start: 02-05-2024 End: 02-05-2024 ambulatory Teresad A. Butch Facility[facility] Start: 02-05-2024 End: 02-05-2024 Patient encounter procedure Mohamad A. Mouchli [facility] Start: 01-27-2024 End: 01-27-2024 ambulatory Mohemekad A. Modestinee Facility:[facility] Start: 01-27-2024 End: 01-27-2024 Patient encounter procedure Mohemekad A. Mouchli [facility] Start: 01-16-2024 End: 01-16-2024 ambulatory Mohemekad A. Momichelineli Facility:[facility] Start: 01-16-2024 End: 01-16-2024 Patient encounter procedure Mohamad A. Momichelineli [facility] Start: 11-26-2023 End: 11-26-2023 ambulatory Lala L Carolee [facility] Start: 10-03-2023 End: 10-03-2023 ambulatory Lala L Carolee [facility] Start: 09-27-2023 ambulatory CHANCE ZACH Facility:[facility] Start: 09-24-2023 End: 09-24-2023 Emergency department patient visit José Luis Resendiz [facility] Start: 05-08-2022 Telephone encounter Tiffani valencia MD Work Phone: Gastroenterology Comment on above: Patient Question Start: 05-07-2022 End: 05-08-2022 ambulatory IRINA SEGURA Facility:[facility] Start: 04-24-2022 End: 04-24-2022 ambulatory CRISTINA ALEE IQBAL Facility:[facility] Start: 04-24-2022 End: 04-24-2022 Nutrition therapy Tiffani Morales MD Work Phone: Gastroenterology Comment on above: Severe malnutrition (HCC) (Primary Dx) Start: 04-24-2022 End: 04-24-2022 Telemedicine consultation with patient Tiffani Morales MD Work Phone: [facility] Start: 04-20-2022 Refill Robb Evans MD Work Phone: [facility] Start: 04-12-2022 Refill Saúl SHORT [facility] Comment on above: Generalized anxiety disorder Start: 04-05-2022 Telephone encounter Tiffani valencia MD Work Phone: Gastroenterology Comment on above: Refill Request Start: 04-04-2022 End: 04-04-2022 ambulatory FREDERICK Maria De Jesus CHAVES Facility:[facility] Start: 04-04-2022 End: 04-04-2022 Subsequent hospital visit by physician Tiffani Morales MD Work Phone: Gastroenterology Comment on above: 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] Start: 03-31-2022 End: 04-01-[address] DOCTOR BERMEO Facility:[facility] Start: 03-28-2022 End: 03-29-[address] BRITNI SIMPSON Facility:[facility] Start: 03-28-2022 Telephone encounter Eduardo Harrington RNfailure analysis technician Comment on above: Appointment Confirma tion Start: 03-20-2022 Refill Saúl SHORT [facility] Start: 03-14-2022 Refill Anastasiya Mosqueda PA-C Work Phone: Gastroenterology Comment on above: Refill Request Start: 03-09-2022 Refill Gokul Maurilio MA [facility] Comment on above: Generalized anxiety disorder Start: 03-01-2022 End: 03-01-2022 [facility] Start: 03-01-2022 End: 03-01-2022 Nutrition therapy Tiffani Morales MD Work Phone: Gastroenterology Comment on above: Severe protein-calor ie malnutrition (HCC) (Primary Dx); 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); Weight loss; Severe malnutrition (HCC) Start: 03-01-2022 End: 03-01-2022 Telemedicine consultation with patient Tiffani Morales MD Work Phone: [facility] Start: 02-07-2022 ambulatory Yan wood MD Work Phone: Gastroenterology Start: 02-07-2022 Patient encounter procedure Yan Garcia Jr., MD Work Phone: [facility] Start: 02-07-2022 Refill Anastasiya Mosqueda PA-C Work Phone: Gastroenterology Comment on above: Refill Request Start: 02-06-2022 End: 02-07-2022 ambulatory CRISTINA IQBAL Facility:[facility] Start: 02-05-2022 End: 02-05-2022 ambulatory CRISTINA ALEE TATUMSOPHIE Facility:[facility] Start: 01-29-2022 ambulatory Dolores Lopez RN [facility] Start: 01-29-2022 Patient encounter procedure Dolores Lopez RN [facility] Start: 01-29-2022 End: 01-29-2022 Subsequent hospital visit by physician Maegan Work Phone: Gastroenterology Comment on above: Arrived Start: 01-17-2022 ambulatory Roshni A Alphonso Reyes ty:Thuy Start: 01-16-2022 Refill Gokul Maurilio CAMPBELL [facility] Start: 01-05-2022 Telephone encounter Anastasiya weberi PA-C Work Phone: Gastroenterology Comment on above: Patient Question; Re turning Patient's Call; Results Nausea (Primary Dx); Weight loss; Small bowel polyp Results (Post-EGD) Start: 01-03-2022 Telephone encounter Anastasiya weberi PA-C Work Phone: Gastroenterology Comment on above: Results Start: 01-02-2022 Telephone encounter Anastasiya kimbrough PA-C Work Phone: [facility] Comment on above: Results Start: 01-01-2022 End: 01-01-2022 ambulatory KIRSTEN Milligan PIOTRFER Facility:[facility] Start: 01-01-2022 End: 01-01-2022 Subsequent hospital visit by physician Tiffani Morales MD Work Phone: Gastroenterology Comment on above: Nausea and vomiting, unspecified vomiting type [R11.2] Start: 12-25-2021 Telephone encounter Rima Gerard RNfailure analysis technician Comment on above: Appointment Start: 12-19-2021 End: 12-19-2021 [facility] Start: 12-15-2021 End: 12-16-2021 ambulatory Anastasiya Mosqueda PA-C Work Phone: Gastroenterology Comment on above: Nausea and vomiting, unspecified vomiting type (Primary Dx); Left upper quadrant abdominal pain; Weight loss Start: 12-15-2021 End: 12-15-2021 Telemedicine consultation with patient Anastasiya Mosqueda PA-C Work Phone: [facility] Start: 12-14-2021 End: 12-14-2021 ambulatory ANASTASIYA MOSQUEDA Facility:[facility] Start: 12-14-2021 End: 12-14-2021 Patient encounter procedure Anastasiya Mosqueda PA-C Work Phone: Gastroenterology Comment on above: APPOINTMENT CANCELLE D (Primary Dx) Start: 12-14-2021 End: 12-14-2021 Telemedicine consultation with patient Anastasiya Mosqueda PA-C Work Phone: [facility] Start: 12-13-2021 Telephone encounter Anastasiya kimbrough PA-C Work Phone: Gastroenterology Comment on above: Appointment Start: 12-11-2021 End: 12-11-2021 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 CUTTING MACHINE OPERATOR CRISTINA [facility] Facility:[facility] Start: 12-03-2021 End: 12-03-2021 Emergency department [facility] Start: 11-14-2021 End: 11-14-2021 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 CUTTING MACHINE OPERATOR CRISTINA ROGER Facility:[facility] Start: 11-09-2021 End: 11-09-2021 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 CUTTING MACHINE OPERATOR CRISTINA ERWINHOLZ Facility:[facility] Start: 10-04-2021 End: 10-04-2021 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 CUTTING MACHINE OPERATOR CRISTINA ILANAZ Facility:[facility] Start: 10-03-2021 Refill Robb Evans MD Work Phone: [facility] Start: 09-27-2021 Documentation procedure Zuleyma Evans MD Work Phone: [facility] Start: 09-25-2021 End: 09-26-2021 ambulatory ROBB EVANS Facility:[facility] Start: 09-19-2021 End: 09-19-2021 ambulatory CRISTINA IQBAL [facility] Start: 09-19-2021 End: 09-19-2021 Office outpatient visit 25 minutes Robb Evans MD Work Phone: [facility] Comment on above: Bipolar 1 disorder, mixed, mild (HCC) (Primary Dx); Generalized anxiety disorder; Long-term use of high-risk medication Start: 09-15-2021 Refill Fartun Mack LPN [facility] Comment on above: Generalized anxiety disorder Start: 06-20-2021 End: 06-20-2021 [facility] Start: 06-20-2021 End: 06-20-2021 Office outpatient visit 25 minutes Upobdulio Evans MD Work Phone: [facility] Comment on above: Generalized anxiety disorder (Primary Dx); Bipolar 1 disorder, mixed, mild (HCC); Long-term use of high-risk medication; Post traumatic stress disorder (PTSD) Start: 04-03-2021 Refill Gokul Maurilio CAMPBELL [facility] Comment on above: Generalized anxiety disorder Start: 03-01-2021 End: 03-01-2021 Phys/qhp telephone evaluation 11-20 min Upobdulio Evans MD Work Phone: [facility] Comment on above: Bipolar 1 disorder, mixed, mild (HCC) (Primary Dx); Generalized anxiety disorder; Long-term use of high-risk medication Start: 03-01-2021 End: 03-01-2021 [facility] Start: 01-31-2021 Refill Gokul Montoya MA [facility] Comment on above: Generalized anxiety disorder Start: 12-29-2020 [facility] Comment on above: Generalized anxiety disorder Start: 08-22-2020 End: 08-22-2020 Phys/qhp telephone evaluation 11-20 min Robb Evans MD Work Phone: [facility] Comment on above: 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); Generalized anxiety disorder; Long-term use of high-risk medication Start: 07-18-2020 End: 07-18-2020 Office outpatient visit 25 minutes Robb Evans MD Work Phone: [facility] Comment on above: Generalized anxiety disorder (Primary Dx); Moderate mixed bipolar I disorder (HCC); Long-term use of high-risk medication Procedures Date Procedure Procedure Detail Performing Clinician Start: 02-25-2024 Esophagogastroduodenoscopy Sandoval oneal Start: 04-04-2022 Endoscopy upper small intestine Tiffani Morales MD Work Phone: Start: 01-01-2022 Esophagogastroduodenoscopy transoral diagnostic Anastasiya Mosqueda PA-C Work Phone: Start: 05-08-2019 Colonoscopy Gokul Maurilio ADRIAN Start: 05-08-2019 Colonoscopy José Luis Resendiz Comment [...] Screening for malign ant neoplasm of colon [facility] Start: 04-27-2022 End: 04-27-2022 Patient encounter procedure 04/27/2022 Office Visit Psychiatry Robb Evans MD [address] [place] [id number] [facility] Start: 03-26-2022 End: 03-26-2022 Patient encounter procedure 03/26/2022 Office Visit Psychiatry Robb Evans MD [address] [place] [id number] [facility] Start: 03-18-2022 DEPRESSION ASSESSMENT DEPRESSION ASS [facility] Start: 03-02-2022 End: 03-01-2023 25-hydroxyvitamin D3 [Mass/volume] in Serum or Plasma VITAMIN D 25 HYDROXY Lab Routine Severe protein-calorie malnutrition (HCC) Expected: 03/02/2022 (Approximate), Expires: 03/01/2023 [facility] Work Phone: Comment on above: Expected: 03/02/2022 (Approximate), Expires: 03/01/2023 Start: 03-02-2022 End: 03-01-2023 Alpha tocopherol [Mass/volume] in Serum or Plasma VITAMIN E/TOCOPHEROL Lab Routine Severe protein-calorie malnutrition (HCC) Expected: 03/02/2022 (Approximate), Expires: 03/01/2023 [facility] Work Phone: Comment on above: Expected: 03/02/2022 (Approximate), Expires: 03/01/2023 Start: 03-02-2022 End: 03-01-2023 C reactive protein [Mass/volume] in Serum or Plasma C-REACTIVE PROTEIN (CRP) Lab Routine Severe protein-calorie malnutrition (HCC) Expected: 03/02/2022 (Approximate), Expires: 03/01/2023 [facility] Work Phone: Comment on above: Expected: 03/02/2022 (Approximate), Expires: 03/01/2023 Start: 03-02-2022 End: 03-01-2023 CBC W Auto Differential panel - Blood CBC + DIFF Lab Routine Severe protein-calorie malnutrition (HCC) Expected: 03/02/2022 (Approximate), Expires: 03/01/2023 [facility] Work Phone: Comment on above: Expected: 03/02/2022 (Approximate), Expires: 03/01/2023 Start: 03-02-2022 End: 03-01-2023 Cobalamin (Vitamin B12) [Mass/volume] in Serum or Plasma VITAMIN B12 BLOOD Lab Routine Severe protein-calorie malnutrition (HCC) Expected: 03/02/2022 (Approximate), Expires: 03/01/2023 [facility] Work Phone: Comment on above: Expected: 03/02/2022 (Approximate), Expires: 03/01/2023 Start: 03-02-2022 End: 03-01-2023 Comprehensive metabolic 2000 panel - Serum or Plasma COMP METABOLIC PANEL Lab Routine Severe protein-calorie malnutrition (HCC) Expected: 03/02/2022 (Approximate), Expires: 03/01/2023 [facility] Work Phone: Comment on above: Expected: 03/02/2022 (Approximate), Expires: 03/01/2023 Start: 03-02-2022 End: 03-01-2023 COPPER BLOOD COPPER BLOOD Lab Routine Severe protein-calorie malnutrition (HCC) Expected: 03/02/2022 (Approximate), Expires: 03/01/2023 [facility] Work Phone: Comment on above: Expected: 03/02/2022 (Approximate), Expires: 03/01/2023 Start: 03-02-2022 End: 03-01-2023 FATTY ACIDS PROFILE, ESSENTIAL FATTY ACIDS PROFILE, ESSENTIAL Lab Routine Severe protein-calorie malnutrition (HCC) Expected: 03/02/2022 (Approximate), Expires: 03/01/2023 [facility] Work Phone: Comment on above: Expected: 03/02/2022 (Approximate), Expires: 03/01/2023 Start: 03-02-2022 End: 03-01-2023 Ferritin [Mass/volume] in Serum or Plasma FERRITIN BLD Lab Routine Severe protein-calorie malnutrition (HCC) Expected: 03/02/2022 (Approximate), Expires: 03/01/2023 [facility] Work Phone: Comment on above: Expected: 03/02/2022 (Approximate), Expires: 03/01/2023 Start: 03-02-2022 End: 03-01-2023 Iron and Iron binding capacity panel - Serum or Plasma IRON + TIBC Lab Routine Severe protein-calorie malnutrition (HCC) Expected: 03/02/2022 (Approximate), Expires: 03/01/2023 [facility] Work Phone: Comment on above: Expected: 03/02/2022 (Approximate), Expires: 03/01/2023 Start: 03-02-2022 End: 03-01-2023 Magnesium [Mass/volume] in Serum or Plasma MAGNESIUM BLD Lab Routine Severe protein-calorie malnutrition (HCC) Expected: 03/02/2022 (Approximate), Expires: 03/01/2023 [facility] Work Phone: Comment on above: Expected: 03/02/2022 (Approximate), Expires: 03/01/2023 Start: 03-02-2022 End: 03-01-2023 Methylmalonate [Moles/volume] in Serum or Plasma METHYLMALONIC ACID Lab Routine Severe protein-calorie malnutrition (HCC) Expected: 03/02/2022 (Approximate), Expires: 03/01/2023 [facility] Work Phone: Comment on above: Expected: 03/02/2022 (Approximate), Expires: 03/01/2023 Start: 03-02-2022 End: 03-01-2023 Phosphate [Mass/volume] in Serum or Plasma PHOSPHORUS INORGANIC Lab Routine Severe protein-calorie malnutrition (HCC) Expected: 03/02/2022 (Approximate), Expires: 03/01/2023 [facility] Work Phone: Comment on above: Expected: 03/02/2022 (Approximate), Expires: 03/01/2023 Start: 03-02-2022 End: 03-01-2023 PT panel - Platelet poor plasma by Coagulation assay PROTHROMBIN TIME/PT Lab Routine Severe protein-calorie malnutrition (HCC) Expected: 03/02/2022 (Approximate), Expires: 03/01/2023 [facility] Work Phone: Comment on above: Expected: 03/02/2022 (Approximate), Expires: 03/01/2023 Start: 03-02-2022 End: 03-01-2023 RBC FOLATE RBC FOLATE Lab Routine Severe protein-calorie malnutrition (HCC) Expected: 03/02/2022 (Approximate), Expires: 03/01/2023 [facility] Work Phone: Comment on above: Expected: 03/02/2022 (Approximate), Expires: 03/01/2023 Start: 03-02-2022 End: 03-01-2023 Retinol [Mass/volume] in Serum or Plasma VITAMIN A/RETINOL Lab Routine Severe protein-calorie malnutrition (HCC) Expected: 03/02/2022 (Approximate), Expires: 03/01/2023 [facility] Work Phone: Comment on above: Expected: 03/02/2022 (Approximate), Expires: 03/01/2023 Start: 03-02-2022 End: 03-01-2023 Selenium [Mass/volume] in Blood SELENIUM BLOOD Lab Routine Severe protein-calorie malnutrition (HCC) Expected: 03/02/2022 (Approximate), Expires: 03/01/2023 [facility] Work Phone: Comment on above: Expected: 03/02/2022 (Approximate), Expires: 03/01/2023 Start: 03-02-2022 End: 03-01-2023 Triglyceride [Mass/volume] in Serum or Plasma TRIGLYCERIDES BLD Lab Routine Severe protein-calorie malnutrition (HCC) Expected: 03/02/2022 (Approximate), Expires: 03/01/2023 [facility] Work Phone: Comment on above: Expected: 03/02/2022 (Approximate), Expires: 03/01/2023 Start: 03-02-2022 End: 03-01-2023 Zinc [Mass/volume] in Serum or Plasma ZINC BLD Lab Routine Severe protein-calorie malnutrition (HCC) Expected: 03/02/2022 (Approximate), Expires: 03/01/2023 [facility] Work Phone: Comment on above: Expected: 03/02/2022 (Approximate), Expires: 03/01/2023 Start: 12-19-2021 End: 12-19-2021 Patient encounter procedure 12/19/2021 Office Visit Psychiatry Robb vEans MD [address] [facility] [address] [place] [id number] [facility] Start: 11-16-2021 Influenza vaccination [facility] Start: 09-19-2021 End: 09-19-2021 Patient encounter procedure 09/19/2021 Office Visit Robb Patton MD [address] [facility] [address] [place] [id number] [facility] Start: 09-15-2021 End: 09-15-2021 Patient encounter procedure 09/15/2021 Office Visit Robb Patton MD [address] [facility] [address] [place] [id number] [facility] Start: 05-30-2021 End: 05-30-2021 Patient encounter procedure 05/30/2021 Office Visit Robb Patton MD [address] [facility] [address] [place] [id number] [facility] Start: 03-18-2021 DEPRESSION ASSESSMENT DEPRESSION ASS ESSMENT [facility] Start: 02-17-2021 End: 02-17-2021 Patient encounter procedure 02/17/2021 Office Visit Robb Patton MD [address] [facility] [address] [place] [id number] [facility] Start: 02-03-2021 End: 02-03-2021 Patient encounter procedure 02/03/2021 Office Visit Psychiatry Robb Evans MD [address] [place] [address] [facility] Start: 11-16-2020 Influenza vaccination [facility] Start: 10-28-2020 End: 10-28-2020 Patient encounter procedure 10/28/2020 Office Visit Psychiatry Robb Evans MD [address] [place] [address] [phone] [facility] Start: 2020 Administration of he rpes zoster vaccine Zoster Vaccines (1 of 2) [facility] Start: 2020 Screening for malign ant neoplasm of colon [facility] Start: 2020 SHINGRIX VACCINE (1 of 2) SHINGRIX VACCINE (1 of 2) [facility] Start: 08-22-2020 End: 08-22-2020 Telemedicine consultation with patient 08/22/2020 Telemedicine Psychiatry Robb Evans MD [address] [place] [address] [phone] [facility] Start: 10-07-2015 COLOGUARD (FIT-DNA) COLOGUARD (FIT-D NA) [facility] Start: 10-07-2015 Colonoscopy COLONOSCOPY [facility] Start: 10-07-2015 COLORECTAL CANCER SCREENING COLORECTAL CANCER SCREENING [facility] Start: 10-07-[address] COLONOGRAPHY [facility] Start: 10-07-2015 DIABETES SCREEN DIABETES SCREEN [facility] Start: 10-07-2015 FECAL OCCULT BLOOD FECAL OCCULT BLOO D [facility] Start: 10-07-2015 LIPID SCREEN LIPID SCREEN [facility] Start: 10-07-[address] [facility] Start: 01-02-2015 PAP TESTING PAP TESTING [facility] Start: 2010 Mammography MAMMOGRAM [facility] Start: 2010 Screening for malign ant neoplasm of breast Mammogram [facility] Start: 2010 Screening mammography Mammogram [facility] Start: 2000 HPV TESTING HPV TESTING [facility] Start: 1989 Urine microalbumin profile DTAP,TDAP,TD (1 - Tdap) [facility] Start: 1988 Hepatitis C screening Hepatitis C Sc reening [facility] Start: 1988 HIV SCREENING HIV SCREENING [facility] Start: 1986 COVID-19 Vaccine (1) COVID-19 Vaccin e (1) [facility] Start: 1985 HIV screening HIV Screening [facility] Start: 1982 COVID-19 Vaccine (1) COVID-19 Vaccin e (1) [facility] Start: 1976 PNEUMOCOCCAL (1 - PCV) PNEUMOCOCCAL (1 - PCV) [facility] Start: 1976 Pneumococcal Vaccine : Ped or At-Risk (1 - PCV) Pneumococcal Vaccine: Ped or At-Risk (1 - PCV) [facility] Start: 1976 Pneumococcal Vaccine : Ped or At-Risk (1 of 2 - PPSV23) Pneumococcal Vaccine: Ped or At-Risk (1 of 2 - PPSV23) [facility] Start: 1976 Pneumococcal Vaccine : Ped or At-Risk (1 of 4 - PCV13) Pneumococcal Vaccine: Ped or At-Risk (1 of 4 - PCV13) [facility] Start: 10-07-1975 COVID-19 Vaccine (1) COVID-19 Vaccin e (1) [facility] Start: 1973 History and physical examination, annual for health maintenance Wellness Visit [facility] Start: 04-08-1971 COVID-19 Vaccine (#1) COVID-19 Vacci ne (#1) [facility] Start: 1970 HEPATITIS B (1 of 3 - 3-dose series) HEPATITIS B (1 of 3 - 3-dose series) [facility] Start: 1970 Screening for malign ant neoplasm of cervix Pap Smear [facility] Start: 1970 Screening for malign ant neoplasm of colon [facility] Start: 1970 Screening mammography Mammogram [facility] Start: 1970 Tetanus vaccination Tetanus: Every 1 0yrs [facility] End: 09-19-2022 Comprehensive metabolic 2000 panel - Serum or Plasma Comprehensive Metabolic Panel Lab Routine Generalized anxiety disorder Long-term use of high-risk medication Bipolar 1 disorder, mixed, mild (HCC) 1 Occurrences starting 09/19/2021 until 09/19/2022 [facility] Comment on above: 1 Occurrences starti ng 09/19/2021 until 09/19/2022 End: 04-01-2023 Ct abdomen & pelvis w/contrast material CT ENTEROGRAPHY W IVCON Radiology Routine 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) Weight loss 1 Occurrences starting 03/02/2022 until 04/01/2023 [facility] Work Phone: Comment on above: 1 Occurrences starti ng 03/02/2022 until 04/01/2023 End: 12-15-2022 EGD DIAGNOSTIC EGD DIAGNOSTIC Endoscopy Routine Nausea and vomiting, unspecified vomiting type Left upper quadrant abdominal pain 1 Occurrences starting 12/15/2021 until 12/15/2022 [facility] Work Phone: Comment on above: 1 Occurrences starti ng 12/15/2021 until 12/15/2022 End: 03-02-2023 ENTEROSCOPY ENTEROSCOPY Endoscopy Routine 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) 1 Occurrences starting 03/02/2022 until 03/02/2023 [facility] Work Phone: Comment on above: 1 Occurrences starti ng 03/02/2022 until 03/02/2023 FAT, FECAL QUAL FAT, FECAL QUAL Lab Routine Weight loss Ordered: 01/05/2022 [facility] Work Phone: Comment on above: Ordered: 01/05/2022 End: 02-04-2023 Gastric emptying imaging study NM GASTRIC EMPTYING SOLID Radiology Routine Nausea 1 Occurrences starting 01/05/2022 until 02/04/2023 [facility] Work Phone: Comment on above: 1 Occurrences starti ng 01/05/2022 until 02/04/2023 End: 01-05-2023 Gi imag intraluminal esophagus-ileum w/i&r CAPSULE ENDOSCOPY SMALL BOWEL Endoscopy Routine Small bowel polyp 1 Occurrences starting 01/05/2022 until 01/05/2023 [facility] Work Phone: Comment on above: 1 Occurrences starti ng 01/05/2022 until 01/05/2023 End: 09-19-2022 Lipid 1996 panel - Serum or Plasma Lipid Panel Lab Routine Generalized anxiety disorder Long-term use of high-risk medication Bipolar 1 disorder, mixed, mild (HCC) 1 Occurrences starting 09/19/2021 until 09/19/2022 [facility] Comment on above: 1 Occurrences starti ng 09/19/2021 until 09/19/2022 PANC ELASTASE, FECAL PANC ELASTA SE, FECAL Lab Routine Weight loss Ordered: 01/05/2022 [facility] Work Phone: Comment on above: Ordered: 01/05/2022 End: 09-19-2022 Prolactin [Mass/volume] in Serum or Plasma Prolactin Lab Routine Generalized anxiety disorder Long-term use of high-risk medication Bipolar 1 disorder, mixed, mild (HCC) 1 Occurrences starting 09/19/2021 until 09/19/2022 [facility] Work Phone: Comment on above: 1 Occurrences starti ng 09/19/2021 until 09/19/2022 End: 04-01-2023 Radiologic exam chest 2 views XR CHEST 2V FRONTAL/LAT Radiology Routine Weight loss 1 Occurrences starting 03/02/2022 until 04/01/2023 [facility] Work Phone: Comment on above: 1 Occurrences starti ng 03/02/2022 until 04/01/2023 SURGICAL PATHOLOGY [facility] Work Phone: Comment on above: Release Upon Orderin g for 1 Occurrences starting 01/01/2022, 1 completed SURGICAL PATHOLOGY [facility] Work Phone: Comment on above: Release Upon Orderin g for 1 Occurrences starting 04/04/2022, 1 completed [facility] Immunizations Immunization Date Immunization Notes Care Provider Dany ordoñez 10-10-2022 tetanus toxoid, reduced diphtheria toxoid, and acellular pertussis vaccine, adsorbed Sandoval Rae [facility] [place] NEGATED: Highlighted row has not occurred!01-16-2024 influenza virus vaccine, unspecified formulation Sandoval Rae [facility] NEGATED: Highlighted row has not occurred!05-24-2020 influenza virus vaccine, unspecified formulation José Luis Resendiz [facility] Payers Date Payer Category Payer Self-pay 2017 Medicaid [id number] 2017 Medicaid [id number] 1970 Unknown [id number] 2.16.8 40.1.805403.3.579.2.727 1970 Unknown [id number] 2.16.8 40.1.772340.3.579.2.727 1970 Unknown [id number] 2.16. 840.1.233991.3.579.2.903 1970 Unknown [id number] 2.16. 840.1.315959.3.579.2.903 1970 Unknown [id number] 2.16. 840.1.537971.3.579.2.903 1970 Unknown [id number] 2.16. 840.1.442249.3.579.2.903 1970 Unknown [id number] 2.16.84 0.1.507886.3.579.2.593 1970 Unknown [id number] 2.16.84 0.1.217468.3.579.2.593 1970 Unknown [id number] 2.16.84 0.1.931844.3.579.2.593 1970 Unknown [id number] 2.16.84 0.1.378193.3.579.2.593 1970 Unknown [id number] 2.16.84 0.1.318317.3.579.2.593 1970 Unknown [id number] 2.16.84 0.1.608793.3.579.2.593 1970 Unknown [id number] 2.16.84 0.1.913316.3.579.2.593 1970 Unknown [id number] 2.16.84 0.1.353231.3.579.2.593 1970 Unknown [id number] 2.16.8 40.1.190812.3.579.2.72 1970 Unknown [id number] 2.16.8 40.1.553932.3.579.2 1970 Unknown [id number] 2.16.8 40.1.268666.3.579.2.72 1970 Unknown [id number] 2.16.8 40.1.052825.3.579.2.72 1970 Unknown [id number] 2.16.8 40.1.245196.3.579.2.72 1970 Unknown [id number] 2.16.8 40.1.978945.3.579.272 1970 Unknown [id number] 2.16.8 40.1.295075.3.579.2.727 1970 Unknown [id number] 2.16.8 40.1.519967.3.579.2.72 1970 Unknown [id number] 2.16.8 40.1.799313.3.579.2.72 1970 Unknown [id number] 2.16.8 40.1.885701.3.579.2.72 1970 Unknown [id number] 2.16.8 40.1.029375.3.579.2.72 1970 Unknown [id number] 2.16.8 40.1.610336.3.579.2.72 1970 Unknown [id number] 2.16.8 40.1.296974.3.579.2.727 1959 Unknown [id number] 1959 Unknown [id number] Unknown [id number] 2.16.8 40.1.608969.3.579.2.531 Social History Date Type Detail Facility Start: 07-18-2020 End: 01-01-2022 Tobacco smoking status NHIS Current every day smoker [facility] Start: 07-18-2020 End: 01-01-2022 Tobacco use and exposure Never used [facility] Start: 07-18-2020 End: 04-04-2022 Alcohol intake Ex-drinker (finding) [facility] Start: 1970 Sex Assigned At Not on file [facility] Start: 09-09-2021 End: 02-05-2022 Exposure to SARS-CoV-2 (event) Not sure [facility] Start: 12-03-2021 End: 12-14-2021 Exposure to SARS-CoV-2 (event) Unable to assess [facility] Start: 06-10-2021 End: 06-20-2021 Exposure to SARS-CoV-2 (event) Yes [facility] Tobacco smoking stat [facility] Tobacco smoking consumption unknown [facility] Start: 1970 Sex Assigned At Female [facility] History of tobacco use [facility] Start: 01-01-2022 Cigarettes smoked current (pack per day) - Reported 0.5 [facility] History of tobacco use Passive smoker [facility] Start: 09-24-2023 End: 06-25-2024 Tobacco smoking status Ex-smoker (finding) [facility] Comment on above: quit smoking 2023 Sex Assigned At Female [facility] Start: 01-16-2024 End: 03-23-2024 Tobacco smoking status Light tobacco smoker (finding) [facility] Tobacco smoking status Never [facility] Start: 06-25-2024 Sex Female (finding) [facility] Functional Status Date Assessment Result Facility 03-23-2024 Functional Status N/A [facility] 02-25-2024 Functional Status N/A [facility] 02-21-2024 Functional Status N/A [facility] 01-16-2024 Functional Status N/A [facility] 09-24-2023 Functional Status N/A [facility] Clinical Notes 07-20-2020 to 02-25-2024 Note Date & Type Note Facility 02-25-2024 Evaluation + Plan note Extrac kitty from: Title:ANES Post-operative Note---General Author: Dakota Rivas MD. Date:02/25/24 Plan Transfer/Discharge: Transfer/Discharge Discharge when meets criteria ( To home ). Extracted from: Title:ANES Pre-operative Note 2022 Author:Dakota Rhoades. Date:02/25/24 Plan [place] [employer] (ASA) physical status classification: Class III. Anesthetic Preoperative Plan: Anesthesia General. Future Scheduled Tests Laboratory* Giardia lamblia, Direct Detection EIA 11/26/23 * O & P Exam, Routine 11/26/23 * Rotavirus Ab 11/26/23 * Clostridium Difficile PCR 11/26/23 Radiology* CT Abdomen/Pelvis w/contrast (enterography) 01/30/24 * XR Small Bowel w/ Serial Films 02/10/24 [facility] [id number] Hospital Discharge instructions Patient Education 02/25/2024 11:02:59 [...] hard liquor (44 mL). General instructions Take zlbz-djq-abmsgrn and prescription medicines only as told by [...] provider. Document Revised: 06/22/2020 Document Reviewed: 06/22/2020 [employer] Patient Education 2023 [employer]. 02/25/2024 11:02:55 Hiatal Hernia Hiatal Hernia A [...] reduce GERD symptoms. Medicines. These may include: ?Immn-gbr-robeqzb antacids. ?Medicines that make your stomach empty [...] may include: ?Fatty foods, like fried foods. ?[place] fruits, like oranges or lemon. ?Other foods [...] Do not drink alcohol. General instructions Take krbe-bgc-vqgcskd and prescription medicines only as told by [...] provider. Document Revised: 05/01/2022 Document Reviewed: 05/01/2022 [employer] Patient Education 2023 [employer]. 02/25/2024 11:02:51 Gastritis, Adult, Zrae-oc-Wnts Gastritis, Adult Gastritis is irritation and swelling [...] Follow these instructions at home: Medicines Take zzpp-huq-glznwvm and prescription medicines only as told by [...] provider. Document Revised: 07/08/2021 Document Reviewed: 07/08/2021 [employer] Patient Education 2023 [employer] 02/25/2024 11:02:46 Endoscopy, Care After Procedure [facility] ([facility]) Endoscopy Care After Procedure Please read the instructions outlined below and refer to this sheet in the next few weeks. These discharge instructions provide you with general information on caring for yourself after you leave thespital. Your doctor may also give you specific [...] Document Re-Released: 08/26/2006 ExitCare Patient Information 2009 [employer]. [facility] 12-10-2024 NoteProgress Note-Physician Patient: SAI PINEDA Age: 53 years Sex: Female : 1970 Associated Diagnoses: None Author: Rob SANDOVAL, Dakota Shoemaker Postoperative Information Postoperative disposition: Postoperative disposition: To PACU. Optimetrix number: Optimetrix number [id number]. Anesthetic utilized: General. Health Status Allergies: Allergic [...] when meets criteria ( To home ).[facility] CenterComment on above:Result Comment: Electronically Signed By: Rob SANDOVAL, Dakota Shoemaker\.br\Date and Time Signed: 02/25/24 11:49 EST 02-25-2024 NotePatient Education - Text Endoscopy Care After Procedure Please read the instructions outlined below and refer to this sheet in the next few weeks. These discharge instructions provide you with general information on caring for yourself after you leave thespital. Your doctor may also give you specific [...] 10/16/2004 Document Re-Released: 08/26/2006 ExitCare??? Patient Information ???2010 [employer]. Gastroenterology Hiatal Hernia A hiatal hernia occurs [...] symptoms. ??? Medicines. These may include: ? Ngqi-zyi-gsewqqc antacids. ? Medicines that make your stomach [...] health care provide (more content not included)...[facility]12-[facility] NoteProgress Note-Physician Patient: SAI PINEDA [...] day(s), # 56 tab(s), Refills(s) 0, [id number], 169, cm, 02/21/24 8:47:00 EST, Height/Length Dosing, 62.2, kg, 02/21/24 8:47:00 EST, Weight Dosing Questran 4 g/9 g oral powder: = 1 packet(s), Oral, BID, # 60 EA, Refills(s) 2, [id number], 169, cm, 01/16/24 10:14:00 EDT, Height/Length Dosing, 63.9, kg, 01/16/24 10:14:00 EDT, Weight Dosing Spiriva Respimat 60 ACT 2.5 mcg/inh inhalation aerosol: = 2 inh, Inhalation, Daily, # 4 gm, Refills(s) 11, [id number], 169.7, cm, 11/26/23 15:32:00 EDT, Height/Length Dosing, 62.1, kg, 11/26/23 15:32:00 EDT, Weight Dosing Zofran 4 mg Tab: 4 mg = 1 tab(s), Oral, q8hr, PRN Nausea, # 10 tab(s), Refills(s) 0, [id number], 173, cm, 04/26/20 13:07:00 EST, Height/Length Dosing, 52.8, kg, 04/26/20 13:07:00 EST, Weight Dosing Zofran ODT 4 mg Tab-Dis: 4 mg = 1 tab(s), Oral, TID, # 15 tab(s), Refills(s) 0, [id number], 172, cm, 09/24/23 13:02:00 EDT, Height/Length Dosing, 61.2, kg, 09/24/23 13:02:00 EDT, Weight Dosing Zofran ODT 8 mg Tab-Dis: 8 mg = 1 tab(s), SubLingual, q8hr, PRN Nausea/Vomiting, # 24 tab(s), Refills(s) 0, [id number], 169, cm, 01/16/24 10:14:00 EDT, Height/Length Dosing, 63.9, kg, 01/16/24 10:14:00 EDT, Weight Dosing cloNIDine 0.2 mg Tab: 0.2 mg = 1 tab(s), Oral, Bedtime, # 30 tab(s), Refills(s) 1, [id number], 173, cm, 05/24/20 14:42:00 EST, Height/Length Dosing, 50.1, kg, 05/24/20 14:42:00 EST,Weight Dosing colestipol 1 g Tab: 2 gm = 2 tab(s), Oral, BID, with a full glass of water, # 120 tab(s), Refills(s) 1, [id number], 169, cm, 01/16/24 10:14:00 EDT, Height/Length Dosing, 63.9, kg, 01/16/24 10:14:00 EDT, Weight Dosing hydrOXYzine hydrochloride 50 mg oral tablet: 50 mg = 1 tab(s), Oral, TID, PRN as needed for anxiety, # 30 tab(s), Refills(s) 0, [id number], 173, cm, 04/26/20 13:07:00 EST, Height/Length Dosing, 52.8, kg, 04/26/20 13:07:00 EST, Weight Dosing lamotrigine 25 mg Tab: See Instructions, TAKE 1 TABLET BY MOUTH EVERY DAY IN THE AFTERNOON, # 30 tab(s), Refills(s) 0, Pharmacy: [facility] [id number], 169.7, cm, 11/26/23 15:32:00 EDT, Height/Length Dosing, 62.1, kg, 11/26/23 15:32:00 EDT, Weight Dosing mirtazapine 7.5 mg oral tablet: 7.5 mg = 1 tab(s), Oral, Bedtime, # 30 tab(s), Refills(s) 0, [id number], 169.7, cm, 10/03/23 9:38:00 EDT, Height/Length Dosing, 62.5, kg, 10/03/23 9:38:00 EDT, Weight Dosing omeprazole 20 mg Cap-DR: See Instructions, TAKE 1 CAPSULE BY MOUTH EVERY DAY, # 30 cap(s), Refills(s) 0, Pharmacy: [facility] [address], 169, cm, 02/21/24 8:47:00 EST, Height/Length Dosing, 62.2, kg, 02/21/24 8:47:00 EST, Weight Dosing ondansetron 4 mg Dis Tab: 4 mg = 1 tab(s), Oral, q6hr, PRN Nausea/Vomiting, # 30 tab(s), Refills(s)0, [id number], 169.7, cm, 11/26/23 15:32:00 EDT, Height/Length Dosing, 62.1, kg, 11/26/23 15:32:00 EDT, Weight Dosing ondansetron 8 mg Dis Tab: See Instructions, DISSOLVE 1 TABLET ON THE TONGUE EVERY 8 HOURS NEEDEDFOR NAUSEA AND VOMITING, # 24 tab(s), Refills(s) 0, [id number], 169, cm, 02/17/2411:55:00 EST, Height/Length Dosing, 61.8, kg, 02/18/24 11:55:00 EST, Weight D... promethazine 25 mg Tab: 25 mg = 1 tab(s), Oral, TID, # 15 tab(s), Refills(s) 0, [facility], 169, cm, 01/16/24 10:14:00 EDT, Height/Length Dosing, 63.9, kg, 01/16/24 10:14:00 EDT, Weight Dosing promethazine 25 mg Tab: See Instructions, TAKE 1 TABLET BY MOUTH THREE TIMES A DAY, # 30 tab(s), Refills(s) 1, Pharmacy: [facility]/pharmacy #6177, 169, cm, 02/18/24 11:55:00 EST, Height/Length Dosing, 61.8, kg, 02/18/24 11:55:00 E (more content not included)...[facility] CenterComment on above:Result Comment: Electronically Signed By: Rob SANDOVAL, Dakota Shoemaker\.br\Date and Time Signed: 02/25/24 10:18 [id number] Evaluation + Plan note Future Scheduled Tests Laboratory* Giardia lamblia, Direct Detection EIA 11/26/23 * O & P Exam, Routine 11/26/23 * Rotavirus Ab 11/26/23 * Clostridium Difficile PCR 11/26/23 Radiology* XR Small Bowel w/ Serial Films 02/10/24 [facility] 09-10-2024 Evaluation + Plan note Future Scheduled Tests Laboratory* Giardia lamblia, Direct Detection EIA 11/26/23 * O & P Exam, Routine 11/26/23 * Rotavirus Ab 11/26/23 * Clostridium Difficile PCR 11/26/23 Radiology* CT Abdomen/Pelvis w/contrast (enterography) 01/30/24 * XR Small Bowel w/ Serial Films 02/10/[address] [facility] 07-09-2024 Hospital Discharge [...] Treatment for this condition includes: Antibiotic medicine. Ruye-bps-rrwffvb medicines to treat discomfort. Drinking enough water [...] Follow these instructions at home: Medicines Take ervc-wqc-bgnkhev and prescription medicines only as told by [...] provider. Document Revised: 10/14/2020 Document Reviewed: 10/14/2020 [employer] Patient Education 2022 [employer]. Follow Up Care 09/24/2023 12:53:04 With:CHANCE SERRANO Address: [address] [place] [phone] Business (1) When:09/27/2023 15:19:10 [facility]07-09-2024 Evaluation + Plan note Diagnostic Tests Pending * Urine Culture 09/24/23 [facility]02-21-2023 Miscellaneous Notes* Telephone Encounter - Eva Chong - 05/08/2022 10:40 AM EST 05/08/22 Patient calling to see if Dr Morales will write her a script for Zofran nausea medication strips. [facility] Pharmacy in [place] [phone] Eva documented in this encounterMiddletown Hospital02-07-2023 NoteHNO ID: [id number] Author: Tiffani Morales MD Service: ? Author [...] Tiffani Morales MD 04/24/2022 11:19 AM Staff Borough Coordinator, [facility] PRIMARY PROBLEM: small bowel tumor, severe malnutrition [...] clips were successfully placed (MR conditional). 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 There was no bleeding at the end [...] patient, physical examination, documentation, and co-ordination of care.[facility]02-07-2023 History of Present illness Narrative* [...] Tiffani Morales MD 04/24/2022 11:19 AM Staff Borough Coordinator, [facility] PRIMARY PROBLEM: small bowel tumor, severe malnutrition [...] clips were successfully placed (MR conditional). 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 There was no bleeding at the end [...] co- ordination of care. documented in this encounterMiddletown Hospital01-19-2023 Miscellaneous Notes* Telephone Encounter - Eva Chong - 04/05/2022 9:29 AM EST 04/05/22 Patient wants tow know if y script you can send her script for ZOFRAN, under the tongue tablets. For nausea. Eva documented in this encounterMiddletown Hospital01-18-2023 NoteHNO ID: [id number] Author: Frederick Chaves APRN.TAXONOMY TEACHER Service: ? Author Type: Nurse Acoustic Sensor Operator Type: Anesthesia Procedure Notes Filed: 04/04/2022 1:55 PM Note Text: ANESTHESIOLOGY PROCEDURE NOTE Airway General Information Procedure Start Time/Medication Administration: 04/04/2022 1:38 PM Patient location during procedure: OR Timeout Performed Pre-procedure: timeout performed Consent Obtained: Yes Patient identity confirmed: arm band Staffing TAXONOMY TEACHER: Frederick Chaves APRN.TAXONOMY TEACHER Performed by: TAXONOMY TEACHER Indications and Patient Condition Indications for airway management: anesthesia Preoxygenated: yes anesthesia circuit Patient position: sniffing Method: asleep Cricoid Pressure: No Difficult Mask: No Final Airway Details Final airway type: endotracheal airway Final Endotracheal Airway: ETT Cuffed: yes Successful intubation technique: video laryngoscopy Devices used: Treedom Endotracheal tube insertion site: oral Blade: [place] Blade size: #3 ETT size (mm): 7.0 Measured from: lips Measurement (cm): 21 Placement verified by: capnometry Cormack-Lehane Classification: grade I - full view of glottis Number of attempts at approach: 1 Airway not difficult SIGNATURE: Frederick Chaves APRN.CRNA PATIENT NAME: Sai Pineda DATE: April 04, 2022 TIME: 1:54 PM CSN: [id number] [facility]23 NoteHNO ID: [id number] Author: Frederick Chaves APRN.TAXONOMY TEACHER Service: ? Author Type: Nurse Acoustic Sensor Operator Type: Anesthesia Procedure Notes Filed: 04/04/2022 1:51 PM Note Text: ANESTHESIOLOGY PROCEDURE NOTE PIV General Information Procedure Start Time/Medication Administration: 04/04/2022 1:26 PM Patient Location: OR Staffing TAXONOMY TEACHER: Frederick Chaves APRN.TAXONOMY TEACHER Performed by: TAXONOMY TEACHER Preparation Sterility Preparation: hand hygiene performed prior to procedure, surgical cap used, mask used, skin prep agent completely dried prior to procedure Site Prep: alcohol Procedure Details Indication: need for IV access Needle Size/Type: 22 gauge angiocath Orientation: Right Location: Foot Imaging Guidance Used: No SIGNATURE: Frederick Chaves APRN.CRNA PATIENT NAME: Sai Pineda DATE: April 04, 2022 TIME: 1:49 PM CSN: [id number] [facility]23 Nurse Note* Eduardo Harrington RN - 04/04/2022 [...] RN In Department: GASTROENTEROLOGY documented in this encounterMiddletown Hospital01-18-2023 NoteQ3 Patient Name: Sai Pineda Procedure [...] clips were successfully placed (MR conditional). Clip newspaper editor: [employer]. There was no bleeding at the end of the maneuver. Exam of the jejunum was otherwise normal. Impression: - Atrophic mucosa. - Jejunal polyp(s). Resected and retrieved. Tattooed. Clips (MR conditional) were placed. Clip newspaper editor: [employer]. Estimated Blood Loss: Estimated blood loss was minimal. Recommendation: - Await pathology results. - Resume previous diet. - Continue present medications. - Return to endoscopist at the next available appointment. Procedure Code(s): --- Professional --- 52706, Small intestinal endoscopy, enteroscopy beyond second portion of duodenum, not including ileum; with removal of tumor(s), polyp(s), or other lesion(s) by snare technique 46773, Unlisted procedure, small intestine Diagnosis Code(s): --- Professional --- K31.89, Other diseases of stomach and duodenum D13.39, Benign neoplasm of other parts of small intestine R93.3, Abnormal findings on diagnostic imaging of other parts of digestive tract CPT copyright 2020 [employer]. All rights reserved. Attending Participation: I was present and participated during the entire procedure, including non-morrison portions. Scope In: 1:44:30 PM Scope Out: 3:07:42 PM MD Tiffani Camargo MD 04/04/2022 3:21:50 PM This report has been signed electronically by Tiffani Morales MD Number of Addenda: 0 (more content not included)...[facility] 04-04-2022 History and physical note* [...] DATE: 04/04/2022 TIME: 1302 documented in this encounterMiddletown Hospital01-11-2023 Miscellaneous Notes* Telephone Encounter - Eduardo Harrington RN - 03/28/2022 3:50 PM EST Attempted to reach the patient at the contact number that they provided [phone] (home) . Unable to speak with patient so without identifying the patient the following information was left on their voice mail: Date of procedure, location and report time A message was left informing the patient/patient marketing development representative they must have a responsible adult [...] Number to call with questions or concerns [phone] Number to call to cancel their procedure [phone] Eduardo Harrington RN documented in this encounterMiddletown Hospital12-27-2022 Note* Addendum Note - Robb Evans MD - 03/13/2022 3:44 PM ESTAddended by: ROBB EVANS on: 03/13/2022 03:44 PM Modules accepted: Orders [id number] Miscellaneous Notes* Addendum Note - Robb Evans MD - 03/13/2022 3:44 PM ESTAddended by: ROBB EVANS on: 03/13/2022 03:44 PM Modules accepted: Orders * Addendum Note - Gokul Montoya MA - 03/13/2022 3:37 PM ESTAddended by: GOKUL MONTOYA on: 03/13/2022 03:37 PM Modules accepted: Orders documented in this [id number] Note* Addendum Note - Gokul Montoya MA - 03/13/2022 3:37 PM ESTAddended by: GOKUL MONTOYA on: 03/13/2022 03:37 PM Modules accepted: Orders [id number] Note* Addendum Note - Gokul Montoya MA - 03/13/2022 3:37 PM ESTAddended by: GOKUL OMNTOYA on: 03/13/2022 03:37 PM Modules accepted: Orders [id number] Miscellaneous Notes* Addendum Note - Gokul Montoya MA - 03/13/2022 3:37 PM ESTAddended by: GOKUL MONTOYA on: 03/13/2022 03:37 PM Modules accepted: Orders documented in this [id number] NoteHNO ID: [id number] Author: Tiffani Morales MD Service: ? Author [...] Tiffani Morales MD 03/01/2022 11:19 AM Staff Borough Coordinator, [facility] PRIMARY PROBLEM: small bowel tumor, severe malnutrition [...] patient, physical examination, documentation, and co-ordination of care.[facility]12-15-2022 History of Present illness Narrative* [...] Tiffani Morales MD 03/01/2022 11:19 AM Staff Borough Coordinator, [facility] PRIMARY PROBLEM: small bowel tumor, severe malnutrition [...] co- ordination of care. documented in this encounterMiddletown Hospital12-02-2022 NoteHNO ID: [id number] Author: Anastasiya Mosqueda PA-C Service: ? Author Type: Physician Manager Marketing Type: Progress Notes Filed: 02/16/2022 5:07 PM Note Text: Orders placedKettering Health [facility]in Medical Center11-21-2022 NoteHNO ID: [id number] Author: RT Fabiana(Liam) Service: Nuclear Medicine Author [...] 08:15 PATIENT DISCHARGED TO: Ambulatory patient, left [place] department area. A Diagnostic radioactive procedure has taken place, with no further precautions necessary other than routine body substance precautions. More information regarding radiation safety can be found using this link: [email or web address] SIGNATURE: RT Fabiana(Liam) PATIENT NAME: Sai Pineda DATE: February 05, 2022 TIME: 10:16 AM PAGER/CONTACT #:[facility]11-14-2022 NoteHNO ID: [id number] Author: Dolores Lopez RN Service: ? Author Type: Registered Nurse Type: Progress Notes Filed: 02/01/2022 4:29 PM Note Text: Summary: capsule endoscopy small bowel Capsule endoscopy small bowel ingested without difficulty @ 1300 on 01-29-2022. Therese Lopez RN [id number] [facility] PTF G [id number] Capsule Endoscopy Post Ingestion Patient Information Do [...] cell phones, computers, remote TV appliances, microwaves, Playnery players and digital cameras. Because the capsule [...] the box for return to the main sugar [place]. Place the box in the closest [employer] [...] hours you may call: HERNÁN Salvador RN [phone] After Business hours: [phone] and ask for GI [facility]Muv[facility]ytumSal[facility]11-14-[facility] History of Present illness Narrative* Dolores Lopez RN - 01/29/2022 1:17 PM ESTSummary: capsule endoscopy small bowel Capsule endoscopy small bowel ingested without difficulty @ 1300 on 01-29-2022. Therese Lopez RN [id number] [facility] PTF G [id number] Capsule Endoscopy Post Ingestion Patient Information Do [...] cell phones, computers, remote TV appliances, microwaves, Playnery players and digital cameras. Because the capsule [...] hours you may call: HERNÁN Salvador RN [phone] After Business hours: [phone] and ask for GI Ysifai-Ul-Nma documented in this encounterMiddletown Hospital10-21-2022 Miscellaneous Notes* Telephone Encounter - Tiffani [...] Morales MD 01-05-2022 17:51 documented in this encounterMiddletown Hospital10-21-2022 NoteHNO ID: [id number] Author: Anastasiya Mosqueda PA-C Service: ? Author Type: Physician Manager Marketing Type: Progress Notes Filed: 01/05/2022 2:24 PM Note Text: Per discussion with Dr. Morales, GES, Small bowel capsule study, Fecal fat qual and pancreatic elastase stool studies orders placed. Discussed plan with patient. [facility] History of Present illness Narrative* Anastasiya Mosqueda PA-C - 01/05/2022 2:13 PM EDT Per discussion with Dr. Morales, GES, Small bowel capsule study, Fecal fat qual and pancreatic elastase stool studies orders placed. Discussed plan with patient. nAastasiya Mosqueda PA-C documented in this encounterMiddletown Hospital10-21-2022 Miscellaneous Notes* Telephone Encounter - Anastasiya [...] testing. Anastasiya Mosqueda PA-C documented in this encounterMiddletown Hospital10-19-2022 Miscellaneous Notes* Telephone Encounter - Anastasiya Mosqueda PA-C - 01/03/2022 10:17 AM EDT EGD results discussed with patient as requested, pathology still pending. Will reach out to patientonce resulted. Red flags for in person care discussed. Anastasiya Mosqueda PA-C documented in this encounterMiddletown Hospital10-18-2022 Miscellaneous Notes* Telephone Encounter - Leydi Mendiola - 01/02/2022 8:47 AM EDT Patient called to get results from her procedure. Please contact her at number listed in system. Thanks Leydi Henry Workleader documented in this encounterMiddletown Hospital10-17-2022 Nurse Note* Juan Carlos Saucedo LPN [...] RN In Department: GASTROENTEROLOGY documented in this encounterMiddletown Hospital10-17-2022 History and physical note * Tiffani [...] DATE: 01/01/2022 TIME: 1600 documented in this encounterKimberly Ville [address]-10-2022 Miscellaneous Notes* Telephone Encounter - Rima Gerard RN - 12/25/2021 8:26 AM EDT Patient scheduled incorrectly. Anesthesia not supposed to have 430 case. I called patient to see john can come in early. She said she would call me back Rima Gerard RN documented in this encounterMiddletown Hospital09-30-2022 NoteHNO ID: [id number] Author: Anastasiya Mosqueda PA-C Service: ? Author Type: Physician Manager Marketing Type: Progress Notes Filed: 12/15/2021 4:32 PM Note Text: VIRTUAL VISIT NEW PATIENT NAME: Sai Pineda [facility] NO: [id number] DATE: 12/15/2021 REASON FOR VISIT Sai Pineda [place] [id number] 1970 has requested a video telemedicine initial [...] abdominal rigidity Assessment IMPRESSION (more content not included)...[facility]09-30-2022 History of Present illness Narrative* Anastasiya Mosqueda PA-C - 12/15/2021 11:50 AM EDT VIRTUAL VISIT NEW PATIENT NAME: Sai Guerrero [facility] NO: [id number] DATE: 12/15/2021 REASON FOR VISIT Sai Guerrero [id number] 1970 has requested a video telemedicine initial [...] 15, 2021 11:51 AM documented in this encounterMiddletown Hospital09-29-2022 NoteHNO ID: [id number] Author: Anastasiya Mosqueda PA-C Service: ? Author Type: Physician Manager Marketing Type: Progress Notes Filed: 12/14/2021 3:51 PM Note Text: Unable to connect to VV, called multiple times and left multiple VM's. Patient rescheduled for tomorrow.[facility]09-29-2022 History of Present illness Narrative* Anastasiya Mosqueda PA-C - 12/14/2021 10:52 AM EDT Unable to connect to VV, called multiple times and left multiple VM's. Patient rescheduled for tomorrow. documented in this encounterMiddletown Hospital09-28-2022 Miscellaneous Notes* Telephone Encounter - Elizabeth Jimenez [facility] - 12/13/2021 12:32 PM EDT Spoke to patient's daughter - she will contact the [employer] support line to assist with setting up patient's Mychart & assist with set up for virtual visit tomorrow morning Elizabeth Ricci * Telephone Encounter - Elizabeth Ricci - 12/13/2021 11:17 AM EDT Received a call from patient's health agency concerning virtual visit set up with you today at 11 - Patient has not registered for [employer] (having trouble accessing her email) & they want to knowif you will do a phone visit instead Was told this was an urgent request from the referring doctor's office - the visit was scheduled thru the Referring Physician office There are no records found for this patient & I attempted to pull records thru Care Everywhere Patient's phone [phone] Elizabeth Ricci documented in this encounterMiddletown Hospital07-13-2022 History of Present illness Narrative* Robb Evans MD - 09/27/2021 10:19 AM EDT Prolactin Level Elevated at 146. Will add Abilify 5 mg daily to address that. Pt informed. Pt is denying breast tenderness or documented in this [id number] History of Present illness Narrative* Robb Evans MD - 09/19/2021 2:19 PM EDT BEHAVIORAL HEALTH PSYCHIATRIC PROGRESS NOTE Reason for visit: Psychotropic medication management 09/19/2021 Patient is seen alone in his office for psychotropic medication management. Patient reported they are moving to a new residence, in [place] same place they have been living in. [...] Testing: none Robb Evans documented in this [id number] History of Present illness Narrative* Robb Evans [...] Testing: none Robb Evans documented in this [id number] History of Present illness Narrative* Robb Evans MD - 03/01/2021 1:31 PM EST Telephone Visit Via Phone Call [facility] [address] ([address]) [facility] [address] [facility] [phone] Telephone Visit [facility] 03/01/2021 Robb Evans MD Provider Location: [facility] Patient Location Auto Seat Cover Installer: None Patient Location: Patient's Home Patient: Sai [...] there are inherent diagnostic limitations compared to tuiy-hk-vsid evaluations. We elected toproceed with the telephone [...] and Plan of Care. documented in this [id number] History of Present illness Narrative* Robb Evans MD - 08/22/2020 3:27 PM EDT Telephone Visit Via Phone Call [facility] [phone] Telephone Visit [facility] 08/22/2020 Robb Evans MD Provider Location: [facility] Patient Location Auto Seat Cover Installer: None Patient Location: Patient's Home Patient: Sai [...] there are inherent diagnostic limitations compared to [id number] evaluations. We elected toproceed with the telephone [...] and Plan of Care. documented in this [id number] History of Present illness Narrative* Robb Evans MD - 07/20/2020 11:29 AM EDT BEHAVIORAL HEALTH PSYCHIATRIC ASSESSMENT DOS: 07/18/3020 Reason for visit: Psychotropic management follow-up. Patient is here to reestablish care at my new location HPI: Patient is seen in office alone. Patient was under my care for about a year at [facility]. Her working diagnosis is bipolar disorder type I, panic disorder with agoraphobia and PTSD. She has prior history of alcohol and cannabis abuse but has maintained sobriety for about last 1 year. Patient was seen here for reestablishing care at my new location in [facility]. Patient wants to continue her psychiatric management.. She had briefly seen a nurse practitioner in [place] after Ileft. Patient reported she she is [...] Appointments Appointment Date:01/27/2024 10:00:00 AM Scheduled Provider: Location:.[facility] Appointment Type:XR Esophagus/Upper GI/Small Bowel (FT) Future Scheduled Tests Laboratory* Giardia lamblia, Direct Detection EIA 11/26/23 * O & P Exam, Routine 11/26/23 * Rotavirus Ab 11/26/23 * Clostridium Difficile PCR 11/26/23 Radiology* XR Small Bowel w/ Serial Films 01/27/[address] [facility] Digestive Health Evaluation + Plan note Future Appointments Appointment Date:02/25/2024 11:00:00 AM Scheduled Provider: Location:[facility] Services Appointment Type:Surgery FT Future Scheduled Tests Laboratory* Giardia lamblia, Direct Detection EIA 11/26/23 * O & P Exam, Routine 11/26/23 * Rotavirus Ab 11/26/23 * Clostridium Difficile PCR 11/26/23 Radiology* CT Abdomen/Pelvis w/contrast (enterography) 01/30/24 * XR Small Bowel w/ Serial Films 02/10/[address] [facility] Digestive Health Evaluation note* Diagnosis Generalized anxiety disorder- Primary Moderate mixed bipolar I disorder (HCC) Bipolar I disorder, most recent episode (or current) mixed, moderate Long-term use of high-risk medication documented in this encounter [facility] note* Diagnosis Moderate mixed bipolar I disorder (HCC)- Primary Bipolar I disorder, most recent episode (or current) mixed, moderate Generalized anxiety disorder Long-term use of high-risk medication documented in this encounter [facility] note* Diagnosis Generalized anxiety disorder documented in this encounter [facility] note* Diagnosis Bipolar 1 disorder, mixed, mild (HCC)- Primary Generalized anxiety disorder Long-term use of high-risk medication documented in this encounter [facility] note* Diagnosis Generalized anxiety disorder- Primary Bipolar 1 disorder, mixed, mild (HCC) Long-term use of high-risk medication Post traumatic stress disorder (PTSD) documented in this encounter [facility] note* Diagnosis Bipolar 1 disorder, mixed, mild (HCC)- Primary Generalized anxiety disorder Long-term use of high-risk medication documented in this encounter [facility] note* Diagnosis APPOINTMENT CANCELLED- Primary documented in this encounter [facility] note* Diagnosis Nausea and vomiting, unspecified vomiting type- Primary Left upper quadrant abdominal pain Weight loss Loss of weight documented in this encounter [facility] note* Diagnosis Nausea and vomiting, unspecified vomiting type Left upper quadrant abdominal pain documented in this encounter [facility] note* Diagnosis Nausea- Primary Nausea alone Weight loss Loss of weight 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, jejunum, and ileum documented in this encounter [facility] note* Diagnosis Abdominal pain, unspecified abdominal location- Primary documented in this encounter [facility] note* Diagnosis Intestinal polyposis- Primary Benign neoplasm of colon documented in this encounter [facility] note* Diagnosis Severe protein-calorie malnutrition (HCC)- Primary Other severe protein-calorie malnutrition 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 Weight loss Loss of weight Severe malnutrition (HCC) 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 [facility]* Diagnosis Generalized anxiety disorder documented in this encounter [facility] note* Diagnosis Generalized anxiety disorder documented in this encounter [facility] note* Diagnosis Generalized anxiety disorder documented in this encounter [facility] note* Diagnosis 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 Digestive Health Progress note No data available for this section [facility] ([facility] Outpatient Procedure (Routine) - Closed Specialty Diagnoses / Procedures Referred By Shane titus Referred To Contact [facility] Diagnoses Nausea and vomiting, unspecified vomiting type Left upper quadrant abdominal pain Procedures EGD DIAGNOSTIC ESOPHAGOGASTRODUODENOSC OPY TRANSORAL DIAGNOSTIC Anastasiya Mosqueda PA-C [address] [place] [address] [facility] [address] [place] [address] Referral ID Status Reason Start Date Expiration Date V isits Requested Visits Authorized [id number] Closed Auto-Generate d Referral 12/15/2021 12/15/2022 1 1 [facility] for referral (narrative)* Outpatient Procedure (Routine) - Pending Review Specialty Diagnoses / Procedures Referred By Shane titus Referred To Contact [facility] Diagnoses Small bowel polyp Procedures CAPSULE ENDOSCOPY SMALL BOWEL GI TRC IMG INTRALUMINAL ESOPHAGUS-ILEUM W/I&R Anastasiya Mosqueda PA-C [address] [place] [address] [facility] [address] [place] [address] Referral ID Status Reason Start Date Expiration Date Visits Requested Visits Authorized [id number] Pending Review Auto-Generat ed Referral 2 01/05/2023 1 1 * Diagnostic Procedure Only (Routine) - Pending Review Specialty Diagnoses / Procedures Referred By Shane t Referred To Contact MOLECULAR & FUNCTIONAL IMAGING Diagnoses Nausea Procedures NM GASTRIC EMPTYING SOLID GASTRIC EMPTYING STUDY Anastasiya Mosqueda PA-C [address] [place] [address] Molecular & Functional Imaging [address] [id number] Referral ID Status Reason Start Date Expiration Date Visits Requested Visits Authorized [id number] Pending Review Auto-Generat ed Referral 2 02/04/2023 1 1 [facility] for referral (narrative)* Outpatient Procedure (Routine) - Pending Review Specialty Diagnoses / Procedures Referred By Shane titus Referred To Contact [facility] Diagnoses 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) Procedures ENTEROSCOPY ENDOSCOPY UPPER SMALL INTESTINE Tiffani Morales MD [address] [id number] [facility] [address] [place], [place] [id number] Referral ID Status Reason Start Date Expiration Date Visits Requested Visits Authorized [id number] Pending Review Auto-Generat ed Referral 2 03/02/2023 1 1 * MRI/CT (Routine) - Pending Review Specialty Diagnoses / Procedures Referred By Shane t Referred To Contact CT IMAGING Diagnoses 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) Weight loss Procedures CT ENTEROGRAPHY W IVCON CT ABD & PELVIS W/CONTRAST Tiffani Morales MD [address] [place] [address] Ct Imaging Referral ID Status Reason Start Date Expiration Date Visits Requested Visits Authorized [id number] Pending Review Auto-Generat ed Referral 04/01/2023 1 1 [facility] for referral (narrative)* Outpatient Procedure (Routine) - Closed Specialty Diagnoses / Procedures Referred By Shane titus Referred To Contact [facility] Diagnoses 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 Diagnoses Nausea and vomiting, unspecified vomiting type Left upper quadrant abdominal pain Procedures EGD DIAGNOSTIC ESOPHAGOGASTRODUODENOSC OPY TRANSORAL DIAGNOSTIC Anastasiya Mosqueda PA-C [address] [place] [address] [address] Referral ID Status Reason Start Date Expiration Date V isits Requested Visits Authorized [id number] Closed Auto-Generate d Referral 12/15/2021 12/15/2022 1 1 [facility] for visit Narrative* Outpatient Procedure (Routine) - Closed Specialty Diagnoses / Procedures Referred By Shane titus Referred To Contact 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 Advance Directives and Living Will Advance Directive Response Recorded Date/ Time Advance Directives No March 18, 2017 10:30pm Summary Purpose Family History No Family History Records Found Relationship Condition Age at Onset Recorded Date/T mayra father Colon disorder Unknown Reason for Referral Specialty Diagnoses / Procedures Referred By Contac t Referred To Contact Nutrition Diagnoses Nausea and vomiting, unspecified vomiting type Weight loss Procedures CONSULT TO NUTRITION THERAPY OFFICE/OUTPATIENT [facility] 60-74 MINUTES Anastasiya Mosqudea PA-C [address] [place] [address] Referral ID Status Reason Start Date Expiration Date Visits Requested Visits Authorized [id number] Authorized PCP Requested Referral 12/15/2021 12/15/2022 1 1 Specialty Diagnoses / Procedures Referred By Shane t Referred To Contact [facility] Diagnoses Nausea and vomiting, unspecified vomiting type Left upper quadrant abdominal pain Procedures EGD DIAGNOSTIC ESOPHAGOGASTRODUODENOSC OPY TRANSORAL DIAGNOSTIC Anastasiya Mosqueda PA-C [address] [place] [address] [facility] Disease [address] [phone] Referral ID Status Reason Start Date Expiration Date Visits Requested Visits Authorized [id number] Authorized Auto-Generat ed Referral 12/15/2021 12/15/2022 1 1 Medications Administered Section Inactive Administered Medications - up to 3 most recent administrations Medication Order MAR Action Action Date Dose Rate Site benzocaine 20% (TOPEX) TOPICAL, X (OR/PROCEDURE) PRN, Starting on Sat01/01/22 at 1606, Until Sat01/01/22 at 1606, Intraprocedure Given 01/01/2022 4:06 PM EDT 1 [place] NaCl 0.9% iv infusion 30 mL/hr, INTRAVENOUS, CONTINUOUS, Starting on Sat01/01/22 at 1600, Until Sat01/02/22 at 0407, Preprocedure New Bag/Syringe/Bottle 01/01/2022 3:58 PM EDT 30 mL/hr 30 mL/hr Chief Complaint and Reason for Visit Chief Complaint Admit Date Ref: OSIEL Graham. SOB, COPD June 25, 2 025 11:29am Additional Source Comments Reason for Visit (unrecogniz [...] Care Teams (unrecognized sec tion and content) Jute Bag Sewer Relationship Specialty Start Date End Date Cristina Iqbal CNP [address] [facility] [place] [address] PCP - General Nurse Practitioner 07/18/20 Jute Bag Sewer Relationship Specialty Start Date End Date Cristina Iqbal CNP [address] [facility] [place] [address] PCP - General Nurse Practitioner 07/18/20 Jute Bag Sewer Relationship Specialty Start Date End Date Cristina Iqbal CNP [address] [facility] [place] [address] PCP - General Nurse Practitioner 07/18/20 Jute Bag Sewer Relationship Specialty Start Date End Date Cristina Iqbal CNP [address] [facility] [place] [address] PCP - General Nurse Practitioner 07/18/20 Jute Bag Sewer Relationship Specialty Start Date End Date Cristina Iqbal, STRAP CUTTING MACHINE OPERATOR [address] [place] [address] PCP - General Nurse Practitioner 07/18/20 Jute Bag Sewer Relationship Specialty Start Date End Date Cristina Iqbal, STRAP CUTTING MACHINE OPERATOR [address] [place] [address] PCP - General Family Medicine 10/15/12 Jute Bag Sewer Relationship Specialty Start Date End Date Cristina Iqbal, STRAP CUTTING MACHINE OPERATOR [address] [place] [address] PCP - General Family Medicine 10/15/12 Jute Bag Sewer Relationship Specialty Start Date End Date Cristina Iqbal, STRAP CUTTING MACHINE OPERATOR [address] [place] [address] PCP - General Family Medicine 10/15/12 Jute Bag Sewer Relationship Specialty Start Date End Date Cristina Iqbal, STRAP CUTTING MACHINE OPERATOR [address] [place] [address] PCP - General Family Medicine 10/15/12 Jute Bag Sewer Relationship Specialty Start Date End Date Cristina Iqbal, STRAP CUTTING MACHINE OPERATOR [address] [place] [address] PCP - General Family Medicine 10/15/12 Jute Bag Sewer Relationship Specialty Start Date End Date Cristina Iqbal, STRAP CUTTING MACHINE OPERATOR [address] [place] [address] PCP - General Family Medicine 10/15/12 Jute Bag Sewer Relationship Specialty Start Date End Date Cristina Iqbal, STRAP CUTTING MACHINE OPERATOR [address] [place] [address] PCP - General Family Medicine 10/15/12 Jute Bag Sewer Relationship Specialty Start Date End Date Cristina Iqbal, STRAP CUTTING MACHINE OPERATOR [address] [place] [address] PCP - General Family Medicine 10/15/12 Jute Bag Sewer Relationship Specialty Start Date End Date Cristina Iqbal, STRAP CUTTING MACHINE OPERATOR [address] [place] [address] PCP - General Nurse Practitioner 07/18/20 Jute Bag Sewer Relationship Specialty Start Date End Date Cristina Iqbal, STRAP CUTTING MACHINE OPERATOR [address] [place] [address] PCP - General Family Medicine 10/15/12 Jute Bag Sewer Relationship Specialty Start Date End Date Cristina Iqbal, STRAP CUTTING MACHINE OPERATOR [address] [place] [address] PCP - General Family Medicine 10/15/12 Jute Bag Sewer Relationship Specialty Start Date End Date Cristina Iqbal, STRAP CUTTING MACHINE OPERATOR [address] [place] [address] PCP - General Family Medicine 10/15/12 Jute Bag Sewer Relationship Specialty Start Date End Date Cristina Iqbal, STRAP CUTTING MACHINE OPERATOR [address] [place] [address] PCP - General Family Medicine 10/15/12 Jute Bag Sewer Relationship Specialty Start Date End Date Cristina Iqbal, STRAP CUTTING MACHINE OPERATOR [address] [place] [address] PCP - General Nurse Practitioner 07/18/20 Jute Bag Sewer Relationship Specialty Start Date End Date Cristina Iqbal, STRAP CUTTING MACHINE OPERATOR [address] [place] [address] PCP - General Nurse Practitioner 07/18/20 Jute Bag Sewer Relationship Specialty Start Date End Date ReneeeduardoCristina [place], STRAP CUTTING MACHINE OPERATOR [address] [place] [address] PCP - General Family Medicine 10/15/12 Jute Bag Sewer Relationship Specialty Start Date End Date ReneeeduardoCristina [place], STRAP CUTTING MACHINE OPERATOR [address] [place] [address] PCP - General Family Medicine 10/15/12 Jute Bag Sewer Relationship Specialty Start Date End Date ReneeeduardoCristina [place], STRAP CUTTING MACHINE OPERATOR [address] [place] [address] PCP - General Family Medicine 10/15/12 Jute Bag Sewer Relationship Specialty Start Date End Date ReneeeduardoCristina [place], STRAP CUTTING MACHINE OPERATOR [address] [place] [address] PCP - General Family Medicine 10/15/12 Team Status: Active Member Role Status Dates Lala Zarco NP-Osbaldo Primary Care Provider Active Team Status: Inactive Member Role Status Dates Cristina Iqbal Referring Provider Active Start: June 25, 2024 End: June 25, 2024 Kenzie Zuñiga MD Attending Provider Active Start: June 25, 2024 End: June 25, 2024 Lala Zarco NP-C Primary Care Provider Active Start: June 25, 2024 End: June 25, 2024 INFORMATION SOURCE (unrecogn ized section and content) DATE CREATED AUTHOR 12/16/2021 [facility] DATE CREATED AUTHOR AUTHOR'S ORGANIZ ATION 12/20/2021 [facility] DATE CREATED AUTHOR AUTHOR'S ORGANIZ ATION 05/12/2022 [facility] DATE CREATED AUTHOR AUTHOR'S ORGANIZ ATION 05/31/2022 [facility] DATE CREATED AUTHOR AUTHOR'S ORGANIZ ATION 03/04/2024 Ismael Screven [facility] DATE CREATED AUTHOR AUTHOR'S ORGANIZ ATION 03/29/2024 [facility] DATE CREATED AUTHOR AUTHOR'S ORGANIZ ATION 05/19/2024 [facility] [place] [facility] DATE CREATED AUTHOR AUTHOR'S ORGANIZ ATION 07/20/2024 Guevara Screven [facility] Source Comments (unrecognize d section and content) In the event this informatio n is protected by the Federal Confidentiality of Alcohol and Drug Abuse Patient Records regulations: The Federal rules restrict any use of the information to criminally investigate or prosecute any alcohol or drug abuse patient.[facility] the event this information is protected by the Federal Confidentiality of Alcohol and Drug Abuse Patient Records regulations: The Federal rules restrict any use of the information to criminally investigate or prosecute any alcohol or drug abuse patient.[facility] HospitalIn the event this information is protected by the Federal Confidentiality of Alcohol and Drug Abuse Patient Records regulations: The Federal rules restrict any use of the information to criminally investigate or prosecute any alcohol or drug abuse patient.[facility] Hospital[facility] the event this information is protected by the Federal Confidentiality of Alcohol and Drug Abuse Patient Records regulations: The Federal rules restrict any use of the information to criminally investigate or prosecute any alcohol or drug abuse patient.[facility] Hospital[facility] the event this information is protected by the Federal Confidentiality of Alcohol and Drug Abuse Patient Records regulations: The Federal rules restrict any use of the information to criminally investigate or prosecute any alcohol or drug abuse patient.[facility] HospitalIn the event this information is protected by the Federal Confidentiality of Alcohol and Drug Abuse Patient Records regulations: The Federal rules restrict any use of the information to criminally investigate or prosecute any alcohol or drug abuse patient.[facility] HospitalIn the event this information is protected by the Federal Confidentiality of Alcohol and Drug Abuse Patient Records regulations: The Federal rules restrict any use of the information to criminally investigate or prosecute any alcohol or drug abuse patient.[facility] Hospital[facility] the event this information is protected by the Federal Confidentiality of Alcohol and Drug Abuse Patient Records regulations: The Federal rules restrict any use of the information to criminally investigate or prosecute any alcohol or drug abuse patient.[facility] HospitalIn the event this information is protected by the Federal Confidentiality of Alcohol and Drug Abuse Patient Records regulations: The Federal rules restrict any use of the information to criminally investigate or prosecute any alcohol or drug abuse patient.[facility] Hospital[facility] the event this information is protected by the Federal Confidentiality of Alcohol and Drug Abuse Patient Records regulations: The Federal rules restrict any use of the information to criminally investigate or prosecute any alcohol or drug abuse patient.[facility] HospitalIn the event this information is protected by the Federal Confidentiality of Alcohol and Drug Abuse Patient Records regulations: The Federal rules restrict any use of the information to criminally investigate or prosecute any alcohol or drug abuse patient.[facility] HospitalIn the event this information is protected by the Federal Confidentiality of Alcohol and Drug Abuse Patient Records regulations: The Federal rules restrict any use of the information to criminally investigate or prosecute any alcohol or drug abuse patient.[facility] HospitalIn the event this information is protected by the Federal Confidentiality of Alcohol and Drug Abuse Patient Records regulations: The Federal rules restrict any use of the information to criminally investigate or prosecute any alcohol or drug abuse patient.[facility] HospitalIn the event this information is protected by the Federal Confidentiality of Alcohol and Drug Abuse Patient Records regulations: The Federal rules restrict any use of the information to criminally investigate or prosecute any alcohol or drug abuse patient.[facility] HospitalIn the event this information is protected by the Federal Confidentiality of Alcohol and Drug Abuse Patient Records regulations: The Federal rules restrict any use of the information to criminally investigate or prosecute any alcohol or drug abuse patient.[facility] HospitalIn the event this information is protected by the Federal Confidentiality of Alcohol and Drug Abuse Patient Records regulations: The Federal rules restrict any use of the information to criminally investigate or prosecute any alcohol or drug abuse patient.[facility] HospitalIn the event this information is protected by the Federal Confidentiality of Alcohol and Drug Abuse Patient Records regulations: The Federal rules restrict any use of the information to criminally investigate or prosecute any alcohol or drug abuse patient.[facility] HospitalIn the event this information is protected by the Federal Confidentiality of Alcohol and Drug Abuse Patient Records regulations: The Federal rules restrict any use of the information to criminally investigate or prosecute any alcohol or drug abuse patient.[facility] HospitalIn the event this information is protected by the Federal Confidentiality of Alcohol and Drug Abuse Patient Records regulations: The Federal rules restrict any use of the information to criminally investigate or prosecute any alcohol or drug abuse patient.[facility] HospitalIn the event this information is protected by the Federal Confidentiality of Alcohol and Drug Abuse Patient Records regulations: The Federal rules restrict any use of the information to criminally investigate or prosecute any alcohol or drug abuse patient.[facility] HospitalIn the event this information is protected by the Federal Confidentiality of Alcohol and Drug Abuse Patient Records regulations: The Federal rules restrict any use of the information to criminally investigate or prosecute any alcohol or drug abuse patient.[facility] Goals (unrecognized section and content) Goals may be documented in a n alternate section FOR RECORDS PERTAINING TO PATIENTS WHO ARE [...] BE BASED ON THE PRIMARY CLINICAL RECORDS. [facility] [employer] [facility]. provides no warranty or guarantee of the accuracy or completeness of information in this document.
--- NOTE | 2024-08-31 10:08 | XR_ITS ---
The [address] [address] Patient Name: SAI BURRIS MRN: [id number] date: 1970 Sex: F Assigned Patient Location: ER Current Patient Location: ER Accession/Order Number: [id number] Exam Date: 08/31/2024 10:31 Report Date: 08/31/2024 10:33 At the request of: ANNELISE FRAZIER MD Procedure: XR knee RT 3V RIGHT KNEE - 3 views COMPARISON: None CLINICAL DATA: Patient fell 2 days ago and has pain at the right knee. AP, lateral and internal oblique views were obtained. No fracture or dislocation is identified. There is no disproportionate joint space narrowing or prominent hypertrophy. There is no significant knee effusion or soft tissue swelling. XR/XR knee RT 3V IMPRESSION: NO ACUTE BONY INJURY. Impression dictated by: Edwige José M.D. 08/31/2024 10:33 AM Dictation Location: [place] [address] Electronically authenticated by: [id number] Y Date: 08/31/2024 10:33
== END 2024-08-31 10:50 | disposition home or self-care (01) ==
PROVIDERS: Emergency Provider Emergency Medicine
DX: S80.01XA Contusion of right knee, initial encounter (principal); S80.212A Abrasion, left knee, initial encounter; S80.211A Abrasion, right knee, initial encounter; W10.8XXA Fall (on) (from) other stairs and steps, initial encounter; Z90.49 Acquired absence of other specified parts of digestive tract; Z90.710 Acquired absence of both cervix and uterus; Z87.891 Personal history of nicotine dependence
CPT/HCPCS: 73562; 99283

== ENCOUNTER 2025-03-13 16:35 | Emergency (ER) | payer OTHER, SELFPAY ==
--- OUTSIDE RECORDS SUMMARY | 2023-09-17 05:30 | XMS_ITS ---
Author Organization [facility] vices Address [address] [place], [place] [id number] Care Team Providers Care Pole Peeler Name Role Phone Damaris Langston Primary Care Provider Danie Hoyos Unavailable [phone] REASON FOR VISIT GERD Social History Sex Assigned At : Social History Observation Description Sex Assigned At Female Encounters Encounter Location Date Provider Diagnosis [address] [place] [address] 09/17/2023 Damaris Lagnston Plan Of Treatment No Information Progress Notes * Shantel PINEDAB:1970 (54 yo F)Acc No.[id number]:09/17/2023 Medical Note Patient: Jeri Schmitz :?Damaris LangstonDOB:1970???Age:52 Y???Sex: FemaleDate:4Phone:[phone]:[address] [facility] Subjective: * Chief Complaints: * G ERD Billing Information: * Procedure Codes: * Electronic signature of ARPAN Rodriguez on 03/13/2025 at 05:16 PM ESTSign off status: Pending * Provider: Elpidio Langston Date: 0 09/17/2023 Generated for Printing/Faxing/eTransmitting on:?03/13/2025 05:16 PM EST
--- OUTSIDE RECORDS SUMMARY | 2023-10-14 05:00 | XMS_ITS ---
Author Organization [facility] vices Address [address] [place], [place] [id number] Care Team Providers Care Dramatic Coach Name Role Phone Damaris Langston Primary Care Provider [phone] Danie Hoyos Unavailable [phone] REASON FOR VISIT Wellness Social History Sex Assigned At : Social History Observation Description Sex Assigned At Female Encounters Encounter Location Date Provider Diagnosis [place] [address] [place] [address] 10/14/2023 Damaris Langston Plan Of Treatment No Information Progress Notes * Shantel PINEDAB:1970 (54 yo F)Acc No.[id number]:10/14/2023 Medical Note Patient: Jeri Schmitz :?Damaris LangstonDOB:1970???Age:53 Y???Sex: FemaleDate:4Phone:[phone]:[address] [place], [place] [id number] Subjective: * Chief Complaints: * W ellness * Electronic signature of ARPAN Rodriguez on 03/13/2025 at 05:14 PM ESTSign off status: Pending * Provider: Elpidio Langston Date: 0 10/14/2023 Generated for Printing/Faxing/eTransmitting on:?03/13/2025 05:14 PM EST
--- OUTSIDE RECORDS SUMMARY | 2023-10-16 05:00 | XMS_ITS ---
Author Organization [facility] vices Address [address] [place] [place], [place] [id number] Care Team Providers Care Court Operations Clerk Name Role Phone Daamris Langston Primary Care Provider Danie Hoyos Unavailable [phone] Vincent Veras Unavailable [phone] REASON FOR VISIT Wellness Social History Sex Assigned At : Social History Observation Description Sex Assigned At Female Encounters Encounter Location Date Provider Diagnosis [place] [address] [place] [address] 10/16/2023 Vincent Veras Plan Of Treatment No Information Progress Notes * Shantel PINEDAB:1970 (54 yo F)Acc No.[id number]:10/16/2023 Progress Notes Patient: Jose David lawrence Jeri :Joseline Rosas NP-CDOB:1970???Age:53 Y ???Sex:FemaleDate:10/16/2023hone:[phone]:[address] [place] [id number]:Damaris Langston Subjective: * Chief Complaints: * W ellness * Electronic signature of Vincent Veras NP on 03/13/2025 at 05:16 PM ESTSign off status: Pending * Provider: Jing Rosas NP-C Date: 0 10/16/2023 Generated for Printing/Faxing/eTransmitting on:?03/13/2025 05:16 PM EST
--- OUTSIDE RECORDS SUMMARY | 2023-10-17 04:30 | XMS_ITS ---
Author Organization [facility] vices Address [address] [place] [place], [place] [id number] Care Team Providers Care Loop Cutter Name Role Phone Damaris Langston Primary Care Provider [phone] Danie Hoyos Unavailable [phone] REASON FOR VISIT wellness Medications Medication SIG (Take, Route, Frequency, Duration) Notes Start Date End Date Status cloNIDine HCl 0.1 MG Tablet 1 tablet Oral Three times a day; Duration: 30 days ActivelamoTRIgine 200 MG Tablet1 tablet Oral Once a day in the morning; Duration: 30 daysActivePrazosin HCl 2 MG Capsule2 capsules at bedtime Orally Once a day; Duration: 60 days02/05/2023ctivelamoTRIgine 25 MG Tablet1 tablet in the afternoon Orally Once a day; Duration: 30 days08/13/2023ctiveOmeprazole 20 MG Capsule Delayed Release1 capsule 30 minutes before morning meal Orally Once a day; Duration: 30 day(s)08/20/2023ctiveSpiriva Respimat 2.5 MCG/ACT Aerosol SolutionINHALE 2 PUFFS BY MOUTH DAILY Inhalation Once a day; Duration: 30 days ActiveFluticasone Furoate-Vilanterol 100-25 MCG/ACT Aerosol Powder Breath Activated1 puff Inhalation Once a day; Duration: 30 daysActiveOLANZapine 2.5 MG Tablet1 tablet in the morning as needed Orally Once a day; Duration: 30 days 08/06/2023ctivePropranolol HCl 10 MG Tablet1 tablet as needed Orally Twice a day; Duration: 30 days08/13/2023ctiveMirtazapine 7.5 MG Tablet1 tablet at bedtime Orally Once a day; Duration: 30 days07/18/2022ctiveOLANZapine 10 MG Tablet1 tablet Oral Once a day at bedtime; Duration: 30 daysActiveOndansetron 8 MG Tablet Disintegrating1 tablet on the tongue and allow to dissolve as needed Oral Twice a day; Duration: 30 daysneeds disintegratingActive Social History Sex Assigned At : Social History Observation Description Sex Assigned At Female Encounters Encounter Location Date Provider Diagnosis [address] [address] 10/17/2023 Damaris Langston Plan Of Treatment No Information Progress Notes * Jhoan PINEDAAmadouB:1970 (54 yo F)Acc No.[id number]:10/17/2023 Progress Notes Patient: Jeri Schmitz :?Damaris LangstonDOB:1970???Age:53 Y???Sex: FemaleDate:10/17/2023hone:[phone]:[address] [id number] Subjective: * Chief Complaints: * W ellness * Medications: T akingOndansetron 8 MG Tablet Disintegrating 1 tablet on the tongue and allow to dissolve as needed Oral Twice a day , Notes to Pharmacist: needs disintegratingOLANZapine 10 MG Tablet 1 tablet Oral Once a day at bedtime Mirtazapine 7.5 MG Tablet 1 tablet at bedtime Orally Once a day OLANZapine 2.5 MG Tablet 1 tablet in the morning as needed Orally Once a day Propranolol HCl 10 MG Tablet 1 tablet as needed Orally Twice a day Fluticasone Furoate-Vilanterol 100-25 MCG/ACT Aerosol Powder Breath Activated 1 puff Inhalation Once a day Spiriva Respimat 2.5 MCG/ACT Aerosol Solution INHALE 2 PUFFS BY MOUTH DAILY Inhalation Once a day Prazosin HCl 2 MG Capsule 2 capsules at bedtime Orally Once a day , Notes: dose increased 08/06/23cloNIDine HCl 0.1 MG Tablet 1 tablet Oral Three times a day , Notes: dose increased 08/06/23lamoTRIgine 200 MG Tablet 1 tablet Oral Once a day in the morning lamoTRIgine 25 MG Tablet 1 tablet in the afternoon Orally Once a day Omeprazole 20 MG Capsule Delayed Release 1 capsule 30 minutes before morning meal Orally Once a day Taking Ondansetron 8 MG Tablet Disintegrating 1 tablet on the tongue and allow to dissolve as needed Oral Twice a day , Notes to Pharmacist: needs disintegratingTaking OLANZapine 10 MG Tablet 1 tablet Oral Once a day at bedtime Taking Mirtazapine 7.5 MG Tablet 1 tablet at bedtime Orally Once a day Taking OLANZapine 2.5 MG Tablet 1 tablet in the morning as needed Orally Once a day Taking Propranolol HCl 10 MG Tablet 1 tablet as needed Orally Twice a day Taking Fluticasone Furoate-Vilanterol 100-25 MCG/ACT Aerosol Powder Breath Activated 1 puff Inhalation Once a day Taking Spiriva Respimat 2.5 MCG/ACT Aerosol Solution INHALE 2 PUFFS BY MOUTH DAILY Inhalation Once a day Taking Prazosin HCl 2 MG Capsule 2 capsules at bedtime Orally Once a day , Notes: dose increased 08/06/23Taking cloNIDine HCl 0.1 MG Tablet 1 tablet Oral Three times a day , Notes: dose increased 08/06/23Taking lamoTRIgine 200 MG Tablet 1 tablet Oral Once a day in the morning Taking lamoTRIgine 25 MG Tablet 1 tablet in the afternoon Orally Once a day Taking Omeprazole 20 MG Capsule Delayed Release 1 capsule 30 minutes before morning meal Orally Once a day Billing Information: * Procedure Codes: * Electronic signature of ARPAN Rodriguez on 03/13/2025 at 05:14 PM ESTSign off status: Pending * Provider: Elpidio Langston Date: 0 10/17/2023 Generated for Printing/Faxing/eTransmitting on:?03/13/2025 05:14 PM EST
--- OUTSIDE RECORDS SUMMARY | 2024-08-04 06:15 | XMS_ITS ---
Author Organization [facility] Address [address] [place] [address] Care Team Providers Care Sleep Lab Technologist Name Role Phone Christin Rosado Primary Care Provider [phone] REASON FOR VISIT EST CARE Encounters Encounter Location Date Provider Diagnosis [place] [address] [place] [address] 08/04/2024 Christin Rosado Plan Of Treatment Next Appt Details Provider Name:Yi Small, 03/15/2025 10:15:00 AM, [address] [place], [address], Progress Notes * SAI BURRIS SDOB:[birth year] (54 yo F)Acc No.[id number]:08/04/2024 Progress Notes Patient: Jose David CALIX ASI Oliveros :?Christin MorenoOB:1970???Age:53 Y???Sex: FemaleDate:08/04/2024Phone:[phone]:[address] [place], [place]-[address] Subjective: * Chief Complaints: * E [facility] Billing Information: * Procedure Codes: * Electronic signature of Christin Rosado NP on 03/13/2025 at 05:15 PM ESTSign off status: Pending * Provider: Salome Rosado Date: 0 08/04/2024 Generated for Printing/Faxing/eTransmitting on:?03/13/2025 05:15 PM EST
--- OUTSIDE RECORDS SUMMARY | 2024-09-11 05:00 | XMS_ITS ---
Author Organization [facility] Servic es Address [address] [place] [address] Care Team Providers Care Classification Control Clerk Name Role Phone Christin Rosado Primary Care Provider REASON FOR VISIT 1 month f/u Encounters Encounter Location Date Provider Diagnosis [place] [address] [place] [address] 09/11/2024 Christin Rosado Plan Of Treatment Next Appt Details Provider Name:Yi Small, 03/15/2025 10:15:00 AM, [address] [place], [address], Progress Notes * SAI BURRIS SDOB:[birth year] (54 yo F)Acc No.[id number]:09/11/2024 Progress Notes Patient: Jose David KIANAASHLEY SAI Oliveors :Muriel MorenoOB:1970???Age:53 Y???Sex: FemaleDate:09/11/2024Phone:[phone]:[address] [place] [id number] Subjective: * Chief Complaints: * 1 month f/u Billing Information: * Procedure Codes: * Electronic signature of Christin Rosado NP on 03/13/2025 at 05:15 PM ESTSign off status: Pending * Provider: Salome Rosado Date: 0 09/11/2024 Generated for Printing/Faxing/eTransmitting on:?03/13/2025 05:15 PM EST
--- OUTSIDE RECORDS SUMMARY | 2024-09-21 05:30 | XMS_ITS ---
Author Organization [facility] es Address [address] [place] [address] Care Team Providers Care Vice President Of Human Resources Name Role Phone Christin Rosado Primary Care Provider [phone] REASON FOR VISIT 1 month f/u Encounters Encounter Location Date Provider Diagnosis [facility] [address] [place] [address] 09/21/2024 Christin Rosado Plan Of Treatment Next Appt Details Provider Name:Yi Small, 03/15/2025 10:15:00 AM, [address] [place], [address], Progress Notes * SAI BURRIS SDOB:[birth year] (54 yo F)Acc No.[id number]:09/21/2024 Progress Notes Patient: Jose David CALIX SAI Oliveros :Muriel MorenoOB:1970???Age:53 Y???Sex: FemaleDate:09/21/2024Phone:[phone]:[address] [place], [place] Subjective: * Chief Complaints: * 1 month f/u Billing Information: * Procedure Codes: * Electronic signature of Christin Rosado NP on 03/13/2025 at 05:15 PM ESTSign off status: Pending * Provider: Salome Rosado Date: 0 09/21/2024 Generated for Printing/Faxing/eTransmitting on:?03/13/2025 05:15 PM EST
--- OUTSIDE RECORDS SUMMARY | 2024-11-03 03:30 | XMS_ITS ---
Author Organization [facility] Servic es Address [address] [place] [address] Care Team Providers Care Anodic Treater Name Role Phone Christin Rosado Primary Care Provider REASON FOR VISIT 1 month f/u Encounters Encounter Location Date Provider Diagnosis [place] [address] [place] [address] 11/03/2024 Christin Rosado Plan Of Treatment Next Appt Details Provider Name:Yi Small, 03/15/2025 10:15:00 AM, [address] [place], [address], Progress Notes * SAI BURRIS SDOB:[birth year] (54 yo F)Acc No.[id number]:11/03/2024 Progress Notes Patient: Jose David KIANAASHLEY SAI Oliveros :Muriel MorenoOB:1970???Age:54 Y???Sex: FemaleDate:11/03/2024Phone:[phone]:[address] [place] [address] Subjective: * Chief Complaints: * 1 month f/u Billing Information: * Procedure Codes: * Electronic signature of Christin Rosado NP on 03/13/2025 at 05:15 PM ESTSign off status: Pending * Provider: Salome Rosado Date: 0 11/03/2024 Generated for Printing/Faxing/eTransmitting on:?03/13/2025 05:15 PM EST
--- OUTSIDE RECORDS SUMMARY | 2024-11-10 05:30 | XMS_ITS ---
Author Organization [facility] Servic es Address [address] [place] [address] Care Team Providers Care Automation Tender Name Role Phone Christin Rosado Primary Care Provider REASON FOR VISIT Follow Up Encounters Encounter Location Date Provider Diagnosis [place] [address] [place] [address] 11/10/2024 Christin Rosado Plan Of Treatment Next Appt Details Provider Name:Yi Small, 03/15/2025 10:15:00 AM, [address] [place], [address], Progress Notes * SAI BURRIS SDOB:[birth year] (54 yo F)Acc No.[id number]:11/10/2024 Progress Notes Patient: Jose David KIANAASHLEY SAI Oliveros :?Christin MorenoOB:1970???Age:54 Y???Sex: FemaleDate:11/10/2024Phone:[phone]:[address] [place] [address] Subjective: * Chief Complaints: * F ollow Up Billing Information: * Procedure Codes: * Electronic signature of Christin Rosado NP on 03/13/2025 at 05:15 PM ESTSign off status: Pending * Provider: Salome Rosado Date: 0 11/10/2024 Generated for Printing/Faxing/eTransmitting on:?03/13/2025 05:15 PM EST
--- OUTSIDE RECORDS SUMMARY | 2025-02-26 14:00 | XMS_ITS | Encounter Summary ---
Author Organization [facility] Address [address] [place], [place] [id number] Care Team Providers Care Jawbone Breaker Name Role Phone Christin Rosado OSIEL Primary Care Provider [phone] Cristina Iqbal CREPING MACHINE OPERATOR HELPER Unavailable [phone] Source Comments In the event this information is protected by the Federal Confidentiality of Alcohol and Drug AbusePatient Records regulations: The Federal rules restrict any use of the information to criminally investigate or prosecute any alcohol or drug abuse patient.[facility] Reason for Referral * Diagnostic Procedure Only (Routine) - ClosedSpecialtyDiagnoses / Procedures Referred By ContactReferred To ContactXR IMAGING Diagnoses Overflow diarrhea Procedures XR ABDOMEN 2V ROUTINE SUPINE W UPRIGHT/DECUB/CTL RADIOLOGIC EXAM ABDOMEN 2 VIEWS Tiffani Morales MD [place] [id number] Phone: tel: fax: XR IMAGING [place] [address] Referral IDStatusReasonStart DateExpiration DateVisits RequestedVisits [id number] Auto-Generated Referral / Reason for Visit * ReasonCommentsConstipation Encounter Details DateTypeDepartmentCare Team (Latest Contact Info)Epeelsfvrpl13/12/2025 2:00 PM ESTOffice Visit Gastroenterology [address] [place] [address] Tiffani Morales MD [facility] [address] [place] [id number] Overflow diarrhea (Primary Dx); Nausea and vomiting, unspecified vomiting type; Incontinence of feces, unspecified fecal incontinence type; Unintentional weight loss; Severe protein-calorie malnutrition (HCC); Constipation due to outlet dysfunction Social History Tobacco UseTypesPacks/DayYears UsedDateSmoking Tobacco: Every DayCigarettes0.538 Passive Smoke Exposure: CurrentSmokeless Tobacco: Never Tobacco Cessation:Ready to Q uit: Not Asked; Counseling Given: Not Answered Alcohol UseStandard Drinks/WeekCommentsNot Currently0 (1 standard drink = 0.6 oz pure alcohol)Area Deprivation IndexAnswerDate RecordedNational Score (1-100), lower number is lower ubsa885102/26/2025State Score (1-10), lower number is lower dhcc82604/29/2024Data from: https://www.neighborhoodatlas.[facility].edu/. Last address used for l[address] [facility]02/26/2025CommentsNoSex and Gender InformationValueDate RecordedSex Assigned at TjnlmHamwkw88/03/2022 9:42 PM EDTLegal NspZsmqsy47/02/2012 8:10 AM ESTGender HmpknkwsBqbzdp68/03/2022 9:42 PM EDTSexual TxulfxfwvkiWvjywedw78/03/2022 9:42 PM EDTdocumented as of this encounter Last Filed Vital Signs Vital SignReadingTime TakenCommentsBlood Zkjfgqhe269/5502/26/2025 2:18 PM EST Trtxq69720/12/2025 2:18 PM TWRQpkeqsszxor47.7 ??C (98 ??F)02/26/2025 2:18 PM EST Respiratory Rate--Oxygen Xgeqhmvevl76%02/26/2025 2:18 PM ESTInhaled Oxygen Concentration--Fbyicx61.3 kg (144 lb)02/26/2025 2:18 PM VUXFaocqj703.1 cm (5' 5 )02/26/2025 2:18 PM ESTBody Mass Index23.9602/26/2025 2:18 PM ESTdocumented in this encounter Patient Instructions * Patient Instructions* Tiffani Morales MD - 03/07/2025 1:01 PM EST We discussed your ongoing gastrointestinal symptoms, including chronic nausea, vomiting, diarrhea, and weight loss: - We will work to gather your previous medical records from Dr. Elba Rosado???s office at [facility] to help guide your next steps and avoid repeating tests you have already completed. - I am prescribing Zofran 8 mg oral disintegrating tablets for your nausea. This prescription will be sent to your [facility] pharmacy. - We discussed the possibility of needing a stronger bowel regimen if your x-ray shows you are backed up with stool, to help move things forward and relieve your symptoms. - You should go to the second floor today to have an abdominal x-ray. This x-ray will help us evaluate your stool burden and check for any bowel obstruction. Follow-up: - I will review your x-ray results and your previous records as soon as they are available. I will contact you by Saturday to discuss the next steps and any further recommendations or referrals based on the findings. documented in this encounter Progress Notes * Tiffani Morales MD - 02/26/2025 2:00 PM EST SMALL BOWEL DISEASES AND NUTRITION FOLLOW-UP VIDEO VISIT Date of direct communication: 02/26/2025 [x] Patient consented to video visit IMPRESSION: Jeri Pineda is a 51 year old female [...] small bowel tumor. DIAGNOSTIC ISSUES AND PLAN: # Overflow diarrhea (R19.7) # Nausea and vomiting, unspecified vomiting type (R11.2) # Incontinence of feces, unspecified fecal incontinence type (R15.9) # Constipation due to outlet dysfunction (K59.02) Chronic severe nausea, vomiting, and fecal incontinence with frequent episodes of diarrhea and abdominal pain, previously managed with Zofran and an anticipatory bowel regimen for primary constipation. Symptoms are debilitating and refractory to current antiemetics and prior bowel regimens. Differential includes motility disorder, overflow diarrhea due to retained stool, and outlet dysfunction. - Ordered abdominal X-ray to assess stool burden and rule out bowel obstruction. - Discussed potential need for stronger bowel regimen if significant stool burden is identified. - Provided education on the relationship between constipation, overflow diarrhea, and the impact ofantiemetics on GI motility. - Start Zofran ODT 8 mg as needed for nausea and vomiting. - Will obtain and review prior records from Dr. Elba Rosado at [facility] to avoid unnecessary repeat testing and inform next steps. - Will determine appropriate surgical referral (colorectal or foregut) once prior records are obtained and reviewed. # Unintentional weight loss (R63.4) # Severe protein-calorie malnutrition (HCC) (E43) History of severe malnutrition with prior weight as low as 101 lbs; weight increased to 157 lbs after initial management but has since declined to 134 lbs, likely secondary to ongoing GI symptoms. - Will review prior labs and nutritional assessments from Dr. Rosado???s records. - Will address underlying GI issues to facilitate nutritional rehabilitation. FOLLOW-UP: 6 weeks or sooner if needed Tiffani Morales MD 02/26/2025 11:19 AM Staff Snagger, [facility] [place] PRIMARY PROBLEM: small bowel tumor, severe malnutrition, last seen INTERVAL HISTORY: The patient is a 54-year-old female with a history of severe malnutrition and chronic nausea, presenting for follow-up of persistent nausea, vomiting, diarrhea, and abdominal pain. She was last seen in 04/2022, at which time she was managed with Zofran and an anticipatory bowel regimen for primary constipation. She initially improved, gaining weight from a low of 101 lbs to a peak of 157 lbs. However, she has since experienced a decline to 134 lbs, associated with a marked change in bowel habits. She now reports diarrhea 1-6 times daily, often accompanied by fecal incontinence and an inability to sense impending bowel movements. Stool consistency varies, with occasional formed stool, but most episodes are loose or liquid. She also reports frequent episodes of simultaneous emesis and diarrhea, sometimes up to 6-7 times per day, particularly during severe nausea. Her chronic nausea is severe and often refractory to Zofran, Phenergan, and Compazine. She describes episodes of intractable vomiting triggered by eating, which can be so severe that she is confined to bed and unable to care for herself or her household. She also reports frequent abdominal pain, worsened by laughing, and significant abdominal distension. She denies any urinary incontinence, retention, or recurrent UTIs. She has undergone extensive prior evaluation, including 12 endoscopies, 12 colonoscopies, a capsuleendoscopy, and multiple CT scans. She has trialed various bowel regimens, including Linzess, with limited benefit. She has not undergone pelvic floor evaluation or anorectal manometry. She has a surgical history of cholecystectomy, appendectomy, and 2 C-sections. She denies any history of pelvic trauma. She was previously under the care of Dr. Christin Rosado, who was planning to refer her for exploratory surgery, but Dr. Rosado left her practice before this could be arranged. The patient expresses significant frustration and distress over her ongoing symptoms, which have been present for years and are now severely impacting her quality of life. She is unable to plan or participate in family events, and her symptoms have led to social isolation and embarrassment. She carries a ???poop bag?? in her purse at all times due to the unpredictability of her symptoms. CURRENT NUTRITION SUPPORT: None Weight history: Low 101 lbs, peak 157 lbs Date: Wt: 02/26/2025 134 lbs 04/04/2022 45.8 kg (101 lb) 01/01/2022 45.8 kg (101 lb) 10/24/2012 63.5 kg (140 lb) CURRENT MEDICATIONS: Current Outpatient Medications Medication Sig Dispense Refill prochlorperazine (COMPAZINE) 5 mg tablet TAKE 1 [...] current facility-administered medications for this visit. ALLERGIES: No Known Allergies PAST MEDICAL/SURGICAL HISTORY, SOCIAL [...] clips were successfully placed (MR conditional). Clip tapper shank: Kangsheng Chuangxiang. There was no bleeding at the end of the maneuver. Exam of the jejunum was otherwise normal. Impression: - Atrophic mucosa. - Jejunal polyp(s). Resected and retrieved. Tattooed. Pathology: A. Jejunum, polyp, biopsy: - Small intestine with gastric heterotopia. - Negative for dysplasia and malignancy. PHYSICAL EXAM: BP 106/55 Pulse 109 Temp 36.7 ??C (98 ??F) Ht 165.1 cm (5' 5 ) Wt 65.3 kg (144 lb) SpO2 96% BMI 23.96 kg/m?? General: Appears healthy and well developed HEENT: No icterus. Oropharynx moist. Neck: No lymphadenopathy. Resp: Normal resp effort. Breath sounds clear bilaterally. CVS: PPP. HS normal. No murmur. Abdo: Non-distended. Soft, non-tender. No masses. Extr: Good muscle bulk and subQ fat reserves. No edema. Skin: No rash. Neuro: Normal gait and station. Psych: Normal memory and affect. Total time spent on this patient encounter today was >45 mins including: preparation for the visit, review and interpretation of records, direct discussion with the patient, physical examination, documentation, and co- ordination of care. Recording using [employer] software for draft documentation of the visit was discussed with the patient/authorized factory representative; all questions welcomed and answered. Patient/authorized factory representative agreed to proceed documented in this encounter Plan of Treatment Not on file documented as of this encounter Results * XR ABDOMEN 2V ROUTINE SUPINE W UPRIGHT/DECUB/CTL (02/26/2025 3:43 PM EST) Anatomical RegionLateralityModalityAbdomenOtherSpecimen (Source)Anatomical Location / LateralityCollection Method / VolumeCollection TimeReceived Time 02/26/2025 3:43 PM EST Impressions 02/26/2025 4:01 PM EST IMPRESSION: Lines, tubes, and devices: None. Bowel: No dilated bowel. Mild colonic fecal burden, predominantly localized within the ascending and descending colon. Other: No free air on the upright view. Dextrocurvature of the spine centered on L1. Cholecystectomy clips. Associate Faculty: PSCB ?? Transcribe Date/Time: Feb 26 2025 ??3:57P Dictated by : YESSI MEZA MD This examination was interpreted and the report reviewed and electronically signed by: YESSI MEZA MD on Feb 26 2025 ??3:59PM ??EST Narrative 02/26/2025 4:01 PM EST * * *Final Report* * * DATE OF EXAM: Feb 26 2025 ??3:43PM ?? AOX ?? [id number] ??- ??XR ABD 2V SUPINE W UPR/DECUB/CTL ??/ PROCEDURE REASON: Overflow diarrhea ? * * * * Physician Interpretation * * * * FLAT AND UPRIGHT/DECUBITUS FILM OF THE ABDOMEN, 2 VIEWS 02/26/2025 CLINICAL INFORMATION: Overflow diarrhea. Evaluate stool burden. TECHNIQUE: Supine and upright views, 4 image(s) COMPARISON: None. RESULT: See impression. Procedure Note Provider, [facility] [place] - 02/26/2025 * * *Final Report* * * DATE OF EXAM: Feb 26 2025 3:43PM AOX [id number] - XR ABD 2V SUPINE W UPR/DECUB/CTL / PROCEDURE REASON: Overflow diarrhea * * * * Physician Interpretation * * * * FLAT AND UPRIGHT/DECUBITUS FILM OF THE ABDOMEN, 2 VIEWS 02/26/2025 CLINICAL INFORMATION: Overflow diarrhea. Evaluate stool burden. TECHNIQUE: Supine and upright views, 4 image(s) COMPARISON: None. RESULT: See impression. IMPRESSION IMPRESSION: Lines, tubes, and devices: None. Bowel: No dilated bowel. Mild colonic fecal burden, predominantly localized within the ascending and descending colon. Other: No free air on the upright view. Dextrocurvature of the spine centered on L1. Cholecystectomy clips. Associate Faculty: FAN Transcribe Date/Time: Feb 26 2025 3:57P Dictated by : YESSI MEZA MD This examination was interpreted and the report reviewed and electronically signed by: YESSI MEZA MD on Feb 26 2025 3:59PM EST Authorizing ProviderResult TypeResult StatusShiralanna Morales MDRAD-PAMAFinal Result documented in this encounter Visit Diagnoses Diagnosis Overflow diarrhea- Primary Diarrhea Nausea and vomiting, unspecified vomiting type Incontinence of feces, unspecified fecal incontinence type Unintentional weight loss Loss of weight Severe protein-calorie malnutrition (HCC) Other severe protein-calorie malnutrition Constipation due to outlet dysfunction Overflow diarrhea Diarrhea documented in this encounter Care Teams Team MemberRelationshipSpecialtyStart DateEnd Date Christin Rosado NP [address] [place] [address] PCP - GeneralFamily Medicine11/20/24 Cristina Iqbal, CREPING MACHINE OPERATOR HELPER [address] [place] [address] ReferringFamily Medicine11/20/24documented as of this encounter
--- OUTSIDE RECORDS SUMMARY | 2025-02-26 15:30 | XMS_ITS | Encounter Summary ---
Author Organization [facility] Address [address] [place], [place] [address] Care Team Providers Care Pure Culture Operator Name Role Phone Christin Rosado OSIEL Primary Care Provider [phone] Cristina Iqbal SENIOR PHYSICAL THERAPIST Unavailable [phone] Source Comments In the event this information is protected by the Federal Confidentiality of Alcohol and Drug AbusePatient Records regulations: The Federal rules restrict any use of the information to criminally investigate or prosecute any alcohol or drug abuse patient.[facility] Reason for Referral * Diagnostic Procedure Only (Routine) - ClosedSpecialtyDiagnoses / Procedures Referred By ContactReferred To ContactXR IMAGING Diagnoses Overflow diarrhea Procedures XR ABDOMEN 2V ROUTINE SUPINE W UPRIGHT/DECUB/CTL RADIOLOGIC EXAM ABDOMEN 2 VIEWS Tiffani Morales MD [place] [id number] Phone: tel: fax: XR [place]ING [place] [address] Referral IDStatusReasonStart DateExpiration DateVisits RequestedVisits [id number] Auto-Generated Referral / Reason for Visit * ReasonCommentsRadio Gen A21 * Diagnostic Procedure Only (Routine) - ClosedSpecialtyDiagnoses / Procedures Referred By ContactReferred To ContactXR IMAGING Diagnoses Overflow diarrhea Procedures XR ABDOMEN 2V ROUTINE SUPINE W UPRIGHT/DECUB/CTL RADIOLOGIC EXAM ABDOMEN 2 VIEWS Tiffani Morales MD [facility] [address] [place] [address] Phone: tel: fax: XR [facility]AGING [place] [address] Referral IDStatusReasonStart DateExpiration DateVisits RequestedVisits [id number] Auto-Generated Referral / Encounter Details DateTypeDepartmentCare Team (Latest Contact Info)Hqjtfubwtdi93/12/2025 3:30 PM EST - 02/26/2025 11:59 PM ESTHospital Encounter Radiology [address] [place] [address] Overflow diarrhea [R19.7] Discharge Disposition: Home Social History Tobacco UseTypesPacks/DayYears UsedDateSmoking Tobacco: Every DayCigarettes0.538 Passive Smoke Exposure: CurrentSmokeless Tobacco: NeverAlcohol UseStandard Drinks/WeekCommentsNot Currently0 (1 standard drink = 0.6 oz pure alcohol)Area Deprivation IndexAnswerDate RecordedNational Score (1-100), lower number is lower ebnc028802/26/2025State Score (1-10), lower number is lower kwjz18604/29/2024 Data from: https://www.neighborhoodatlas.medicine.[facility].edu/. Last address used for paidtcpotts[address] [place], [place] [address]/26/2025CommentsNoSex and Gender InformationValueDate RecordedSex Assigned at FzeukNteatp18/03/2022 9:42 PM EDT Legal WgzWgmldl50/02/2012 8:10 AM ESTGender OzlvnuxlGqhmtl20/03/2022 9:42 PM EDT Sexual UgkifhnnrrwPghxmjcv71/03/2022 9:42 PM EDTdocumented as of this encounter Medications at Time of Discharge MedicationSigDispense QuantityRefillsLast FilledStart DateEnd Date ondansetron orally disintegrating (ZOFRAN ODT) 8 mg disintegrating tablet Take 1 tablet by mouth every 8 hours as needed for nausea/vomiting. 100 tablet 503/02/2026 prochlorperazine (COMPAZINE) 5 mg tablet TAKE 1 TABLET BY MOUTH EVERY 6 HOURS NEEDED FOR NAUSEA AND VOMITING 100 tablet ALPRAZolam (XANAX) 0.5 mg tablet Take 0.5 mg by mouth three times daily as needed.12/20/2021 cloNIDine HCl (CATAPRES) 0.2 mg tablet 12/29/2021 lamoTRIgine (LAMICTAL) 200 mg tablet Take 200 mg by mouth.12/19/2021 OLANZapine 5 mg tablet Take 5 mg by mouth daily at bedtime. pantoprazole 40 mg tablet Take 40 mg by mouth once daily. tiotropium (SPIRIVA WITH HANDIHALER) 18 mcg inhalation capsule Inhale 18 mcg as instructed once daily.documented as of this encounter Progress Notes * Cristina Boston RT(R) - 02/26/2025 3:30 PM EST Radiology Service Progress Note PATIENT NAME: Jeri Pineda DATE OF SERVICE: February 26, 2025 TIME: 3:44 PM PATIENT IDENTITY VERIFICATION COMPLETED USING TWO (2) IDENTIFIERS: Name and Date of confirmedby patient verbally. FALL SCREENING: Has the patient had 2 falls in the last year or 1 fall with injury or currently using an Ambulatory Assistive Device (Walker, Cane, Wheelchair, Crutches, etc.)? No PATIENT GENDER DATA: Assigned female at . status: : No status:NO. PATIENT RELEVANT IMPLANT DATA REVIEWED: Not Applicable PATIENT PRESENTS WITH AN IMPLANTABLE OR ATTACHED PROJECT MANAGEMENT PROFESSIONAL: No RADIOLOGY DEPARTMENT: General X-ray: Exam(s) Completed: Abdomen X-Ray: Abdomen with Upright PERIPHERAL IV DATA: Not applicable SIGNED BY: RT Christiane(Liam) February 26, 2025 3:44 PM * Cristina Boston RT(R) - 02/26/2025 3:30 PM EST Radiology Service Progress Note PATIENT NAME: Jeri Pineda DATE OF SERVICE: February 26, 2025 TIME: 3:51 PM PATIENT IDENTITY VERIFICATION COMPLETED USING TWO (2) IDENTIFIERS: Name and Date of confirmedby patient verbally. FALL SCREENING: Has the patient had 2 falls in the last year or 1 fall with injury or currently using an Ambulatory Assistive Device (Walker, Cane, Wheelchair, Crutches, etc.)? No PATIENT GENDER DATA: Assigned female at . status: : No status:NO. PATIENT RELEVANT IMPLANT DATA REVIEWED: Not Applicable PATIENT PRESENTS WITH AN IMPLANTABLE OR ATTACHED PROJECT MANAGEMENT PROFESSIONAL: No RADIOLOGY DEPARTMENT: General X-ray: Exam(s) Completed: Abdomen X-Ray: Abdomen with Upright PERIPHERAL IV DATA: Not applicable SIGNED BY: RT Christiane(R) February 26, 2025 3:51 PM documented in this encounter Plan of Treatment Not on file documented as of this encounter Procedures Procedure NamePriorityDate/TimeAssociated DiagnosisCommentsXR ABDOMEN 2V ROUTINE SUPINE W UPRIGHT/DECUB/PZCFzcxqpq06/12/2025 3:43 PM EST Overflow diarrhea documented in this encounter Results * XR ABDOMEN 2V [...] the spine centered on L1. Cholecystectomy clips. Warehouse Supervisor: FAN ?? Transcribe Date/Time: Feb 26 2025 ??3:57P [...] None. RESULT: See impression. Procedure Note Provider, [facility] [place] - 02/26/2025 * * *Final Report* * [...] the spine centered on L1. Cholecystectomy clips. Warehouse Supervisor: FAN Transcribe Date/Time: Feb 26 2025 3:57P Dictated by : YESSI MEZA MD This examination was interpreted and the report reviewed and electronically signed by: YESSI MEZA MD on Feb 26 2025 3:59PM EST Authorizing ProviderResult TypeResult StatusTiffani Morales MDRAD-PAMAFinal Result documented in this encounter Visit Diagnoses Diagnosis Overflow diarrhea Diarrhea documented in this encounter Care Teams Team MemberRelationshipSpecialtyStart DateEnd Date Christin Rosado NP [address] [place] [address] PCP - GeneralFamily Medicine11/20/24 Cristina Iqbal, SENIOR PHYSICAL THERAPIST [address] [place] [address] ReferringFamily Medicine11/20/24documented as of this encounter
[2025-03-13] VITALS (16 sets, daily range): BP systolic 117; BP diastolic 92; PULSE 84–106; TEMP 36.7; O2SAT 92–99; BMI 19.8
--- OUTSIDE RECORDS SUMMARY | 2025-03-13 17:15 | XMS_ITS | Clinical Summary ---
Author Organization [facility] Address [address] [place] [address] Phone Care Team Providers Care Brush Cutter Name Role Phone Unavailable Primary Care Provider Unavailabl e Social History Tobacco UseTypesPacks/DayYears UsedDateSmoking Tobacco: Never Assessed CommentsUnknownSex and Gender InformationValueDate RecordedSex Assigned at Not on fileLegal KymHgrooi95/25/2022 8:21 PM ESTGender IdentityNot on fileSexual OrientationNot on file Plan of Treatment Not on file
--- OUTSIDE RECORDS SUMMARY | 2025-03-13 17:15 | XMS_ITS | Clinical Summary ---
Author Organization [facility] Address [address] [place] [address], [address] [place] [address] Care Team Providers Care Poultry Hatchery Man Name Role Phone Cristina Iqbal EXTRUDING DEPARTMENT SUPERVISOR - DINING MANAGER Primary Care Provide r Social History Tobacco UseTypesPacks/DayYears UsedDateSmoking Tobacco: Never Assessed CommentsUnknownSex and Gender InformationValueDate RecordedSex Assigned at Not on fileLegal KsoVhupss40/10/2013 9:23 AM ESTGender IdentityNot on fileSexual OrientationNot on file Plan of Treatment Not on file Care Teams Team MemberRelationshipSpecialtyStart DateEnd Date Cristina Iqbal, EXTRUDING DEPARTMENT SUPERVISOR - DINING MANAGER [address] [place] [address] PCP - GeneralNurse Practitioner11/20/16
--- OUTSIDE RECORDS SUMMARY | 2025-03-13 17:15 | XMS_ITS | Clinical Summary ---
Author Organization [facility] Address [address] [place], [place] [address] Care Team Providers Care Park Worker Name Role Phone Alonzo Christin CARTAGENA Primary Care Provider [phone] Cristina Iqbal HEATING UNIT MECHANIC Unavailable [phone] Allergies No known active allergies Medications MedicationSigDispense QuantityRefillsLast FilledStart DateEnd DateStatus OLANZapine 5 mg tablet Take 5 mg by mouth daily at bedtime.Active pantoprazole 40 mg tablet Take 40 mg by mouth once daily.Active tiotropium (SPIRIVA WITH HANDIHALER) 18 mcg inhalation capsule Inhale 18 mcg as instructed once daily.Active ALPRAZolam (XANAX) 0.5 mg tablet Take 0.5 mg by mouth three times daily as needed.12/20/2021ctive cloNIDine HCl (CATAPRES) 0.2 mg tablet 12/29/2021ctive lamoTRIgine (LAMICTAL) 200 mg tablet Take 200 mg by mouth.12/19/2021ctive prochlorperazine (COMPAZINE) 5 mg tablet TAKE 1 TABLET BY MOUTH EVERY 6 HOURS NEEDED FOR NAUSEA AND VOMITING 100 tablet ctive ondansetron orally disintegrating (ZOFRAN ODT) 8 mg disintegrating tablet Take 1 tablet by mouth every 8 hours as needed for nausea/vomiting. 100 tablet ctive ondansetron orally disintegrating (ZOFRAN ODT) 8 mg disintegrating tablet Take 8 mg by mouth every 8 hours as needed for nausea/vomiting.02/26/2025 Discontinued Active Problems ProblemNoted DateDiagnosed DateSevere protein-calorie koxiwhkiwyux12/16/2022Hand pain10/24/2012Joint unehscto35/09/2013ANA /09/2013Elevated C-reactive protein (CRP)10/24/2012Family history of rheumatoid mwgiqdizl54/09/2013Tobacco abuse10/24/2012Numbness and zayypibz58/09/9088Gnrohmlhvn22/09/2013Raynauds oklzgsfjfd48/09/2013 Encounters DateTypeDepartmentCare KtqaUpjbsvcbtoo75/21/2025Results Follow-Up Gastroenterology [address] [place] [id number] Tiffani Morales MD 02/26/2025 3:30 PM EST - 02/26/2025 11:59 PM ESTHospital Encounter Radiology [address] [place] [id number] Overflow diarrhea [R19.7] Discharge Disposition: Home02/26/2025 2:00 PM ESTOffice Visit Gastroenterology [address] [address] Tiffani Morales MD Overflow diarrhea (Primary Dx); Nausea and vomiting, unspecified vomiting type; Incontinence of feces, unspecified fecal incontinence type; Unintentional weight loss; Severe protein-calorie malnutrition (HCC); Constipation due to outlet /12/2025Travelfrom Last 3 Months Social History Tobacco UseTypesPacks/DayYears UsedDateSmoking Tobacco: Every DayCigarettes0.538 Passive Smoke Exposure: CurrentSmokeless Tobacco: Never Tobacco Cessation:Ready to Q uit: Not Asked; Counseling Given: Not Answered Alcohol UseStandard Drinks/WeekCommentsNot Currently0 (1 standard drink = 0.6 oz pure alcohol)Area Deprivation IndexAnswerDate RecordedNational Score (1-100), lower number is lower dgqe250902/26/2025State Score (1-10), lower number is lower ctuf32404/29/2024Data from: https://www.neighborhoodatlas.medicine.[facility].edu/. Last address used for j[address]/26/2025CommentsNoSex and Gender InformationValueDate RecordedSex Assigned at AyhktNzkmaz78/03/2022 9:42 PM EDTLegal ZuhRubfqc84/02/2012 8:10 AM ESTGender KqovkyyzQcsvrj95/05/2021 9:42 PM EDTSexual ClysckdwwlrKtuugzef08/03/2022 9:42 PM EDT Last Filed Vital Signs Vital SignReadingTime TakenCommentsBlood Guuydpur672/5502/26/2025 2:18 PM EST Sxeki92372/12/2025 2:18 PM DAHDicbvhthuov99.7 ??C (98 ??F)02/26/2025 2:18 PM EST Respiratory Zsmx049104/04/2022 3:50 PM ESTOxygen Xriwdzptpq90%02/26/2025 2:18 PM ESTInhaled Oxygen Concentration--Gjmjze83.3 kg (144 lb)02/26/2025 2:18 PM EST Yrlhjh736.1 cm (5' 5 )02/26/2025 2:18 PM ESTBody Mass Index23.9602/26/2025 2:18 PM EST Plan of Treatment Health MaintenanceDue DateLast DoneCommentsAnxiety Kqazvtjaw87/22/1989Depression Lcidjdzei74/22/1989HIV Zhzyvrxbi95/22/1989Hepatitis B Vaccine (1 of 3 - 19+ 3- dose series)1989Pneumococcal Vaccine: 50+ (1 of 2 - PCV)1989 Mammogram Qhszuxxbh50/22/2011Cervical Cancer Vrrsqozsy71CT Exvwuaeuvubp35/22/2016Cologuard (FIT-DNA)10/07/20153753Geqmpgrnfro06/22/2016 Colorectal Cancer Mvtqpdlvo51/22/2016Diabetes Aiuzssdke92/22/2016Fecal Occult Blood10/07/2015Lipid Mmxpkhlhn10/22/7165Ebbdethhpvvsu41/22/2016Shingrix Vaccine (1 of 2)2020ovid-19 Vaccine (1 - 2024- season)2024Influenza Vaccine (#1)2024DTaP,Tdap,Td Vaccine (2 - Td or Tdap) RSV Vaccine (1 - 1-dose 75+ series)2045Hepatitis C ScreeningCompleted 10/24/2012 Medical Devices ImplantedTypeAreaManufacturerDevice IdentifierShelf Expiration DateModel / Serial / LotNailNailRight: Foot Procedures Procedure NamePriorityDate/TimeAssociated DiagnosisCommentsXR ABDOMEN 2V ROUTINE SUPINE W UPRIGHT/DECUB/OCQNesnbgm21/12/2025 3:43 PM EST Overflow diarrhea HEP REMOTE PANEL LQKkjkkki55/09/2013 4:30 PM EDT Hand pain Joint swelling DESMOND positive Fatigue PAP FLUID CERVICAL ZPLWESMPECmhebld23/18/2010 from Last 3 Months or Most Recently Relevant to Health Maintenance Results * XR ABDOMEN 2V ROUTINE SUPINE [...] the spine centered on L1. Cholecystectomy clips. Bulk Loader: PSCB ?? Transcribe Date/Time: Feb 26 2025 [...] None. RESULT: See impression. Procedure Note Provider, [facility] [place] - 02/26/2025 * * *Final Report* * [...] the spine centered on L1. Cholecystectomy clips. Bulk Loader: FAN Transcribe Date/Time: Feb 26 2025 3:57P Dictated by : YESSI MEZA MD This examination was interpreted and the report reviewed and electronically signed by: YESSI MEZA MD on Feb 26 2025 3:59PM EST Authorizing ProviderResult TypeResult StatusTiffani Morales MDRAD-PAMAFinal Result * HEP REMOTE PANEL BL (10/24/2012 4:30 PM EDT)ComponentValueRef RangeTest Method Analysis TimePerformed AtPathologist SignatureHep B Core Ab, TotalNegative NEGATCLEVELAND CLINIC MAIN LABORATORYHep C Antibody IANegativeNEGATCLEVELAND CLINIC MAIN LABORATORYHBsAgNegativeNEGATCLEVELAND [facility] MAIN LABORATORYHep B Surface Ab, QualNegativeNEGATCLEVELAND CLINIC MAIN LABORATORYComment:No evidence of antibodies to Hepatitis B surface antigen.Specimen (Source) Anatomical Location / LateralityCollection Method / VolumeCollection Time Received TimeBlood specimen (specimen)BLOOD SPECIMEN / Huqjedn9810/24/2012 4:30 PM EDT10/24/2012 5:12 PM EDT Narrative Authorizing ProviderResult TypeResult StatusJovita Covington MDLABORATORYFinal ResultPerforming OrganizationAddressCity/State/ZIP CodePhone Number [facility] [address] [place] [address] * PAP FLUID CERVICAL SCREENING (01/02/2010)ComponentValueRef RangeTest Method Analysis TimePerformed AtPathologist SignatureTranscription Specimen #: [id number] Submitting Physician: SAIDA PALMER M.D. SPECIMEN SUBMITTED A: CERVICAL,SCREENING, FLUID FINAL DIAGNOSIS A. CERVICAL,SCREENING, FLUID Satisfactory for interpretation. Negative for intraepithelial lesion or malignancy. Trichomonas vaginalis. Acute inflammation. This specimen has been analyzed by the ThinPrep Imaging System (Beacon Reader), an automated imaging and review system, which assists the laboratory in evaluating cells on ThinPrep Pap tests. ??Following automated imaging, selected moser from every slide are reviewed by a twitchell operator. Jennifer WILLIAMSON (ASCP) ? (Electronic Signature) CLINICAL DATA Date of Last Menstrual Period: Spotting Clinical History: ROUTINE PREVIOUS PAP SMEAR: 5-6 years ago-wnl STAINS A: ??CERVICAL,SCREENING, FLUID ? THIN PREP SINK CUTTER x 1 Krystle Mcelroy M.D., Trading Assistant : 1970 (Age: 39) F Date of Report: 01/10/2010 Date of Procedure: 01/02/2010 Date of Receipt: 01/04/2010 Submitted by: SAIDA PALMER M.D. Location: Test performed by: ??[facility], [facility] [place], [place] ??[address] COPATHPLUSSpecimen (Source)Anatomical Location / LateralityCollection Method / VolumeCollection TimeReceived Time 6:32 AM EDT Narrative Authorizing ProviderResult TypeResult StatusCcf ProviderCYTOLOGYFinal Result Performing OrganizationAddressCity/State/ZIP CodePhone Number [facility] [address] [place] [address] from Last 3 Months or Most Recently Relevant to Health Maintenance Insurance Care Teams Team MemberRelationshipSpecialtyStart DateEnd Date Christin Rosado NP [address] [place] [address] PCP - GeneralFamily Medicine11/20/24 Cristina Iqbal, HEATING UNIT MECHANIC [address] [place] [phone] ReferringFamily Medicine11/20/24
--- OUTSIDE RECORDS SUMMARY | 2025-03-13 17:15 | XMS_ITS | CCD ---
Author Organization [facility] Care Team Providers Care Child Care Cook Name Role Phone Cristina Iqbal CNP Primary Care Provider [phone] Vipin Pina Attending Unavailable Roshni Werner Attending Unavailable Cristina Iqbal CNP Primary Care Provider CRISTINA IQBAL Primary Care Unavailable GEHLOT, UPENDER Attending Unavailable CRISTINA IQBAL J Primary Care Unavailable GEHLOT, UPENDER Attending Unavailable CRISTINA IQBAL Primary Care Unavailable GEHLOT, UPENDER Attending Unavailable RENEEHSOPHIE, CRISTINA J Primary Care Unavailable GEHLOT, UPENDER Attending Unavailable ReneehholCristina lorenzana CNP Primary Care Provider Cristina Iqbal CNP Primary Care Provider [phone] Farida HOLLEY Cristina J Primary Care Provider [phone] FARIDA CRISTINA ALEE Primary Care Unavailable KIRSTEN DALTON Attending Unavailable RENEEHSOPHIE, CRISTINA ALEE Primary Care Unavailable MUKHDOMI, ANASTASIYA Referring Unavailable MUKHDOMI, ANASTASIYA Attending Unavailable AICHHOLZ, CRISTINA ALEE Primary Care Unavailable MUKHDOMI, ANASTASIYA Attending Unavailable AICHHOLZ, CRISTINA ALEE Referring Unavailable AICHHOLZ, CRISTINA ALEE Primary Care Unavailable AICHHOLZ, CRISTINA ALEE Primary Care Unavailable AICHHOLZ, CRISTINA ALEE Referring Unavailable TIFFANI MORALES Attending Unavailable FREDERICK CHAVES Attending Unavailable AICHHOLZ, CRISTINA ALEE Primary Care Unavailable TIFFANI MORALES Referring Unavailable AICHHOLZ, CRISTINA ALEE Primary Care Unavailable TIFFANI MORALES Referring Unavailable TIFFANI MORALES Attending Unavailable RENEEHHOLZ, CRISTINA ALEE Primary Care Unavailable YAN GARCIA JR Attending Unavailable AICHHOLZ, CRISTINA ALEE Primary Care Unavailable BETHSUPRIYA ANASTASIYA Referring Unavailable AICHHOLZ, THERAPY DIRECTOR CRISTINA Primary Care Unavailable ANNELISE FRAZIER Admitting Unavailable ANNELISE FRAZIER Attending Unavailable ANNELISE FRAZIER Consulting Unavailable BELEN REGAN Consulting Unavailable IRINA SEGURA Admitting Unavailable IRINA SEGURA Attending Unavailable AICHHOLZ, THERAPY DIRECTOR CRISTNIA Primary Care Unavailable MISC, DR DECKER Consulting Unavailable GEHLOT, UPENDER Admitting Unavailable GEHLOT, UPENDER Attending Unavailable AICHOLZ, THERAPY DIRECTOR CRISTINA Referring Unavailable AICHHOLZ, THERAPY DIRECTOR CRISTINA Primary Care Unavailable GEHLOT, UPENDER Consulting Unavailable BENEDICT, DR RYDER Admitting Unavailable BENEDICT, DR RYDER Attending Unavailable AICHHOLZ, THERAPY DIRECTOR CRISTINA Primary Care Unavailable BENEDICT, DR RYDER Consulting Unavailable MISC, DR DECKER Admitting Unavailable MISC, DR DECKER Attending Unavailable AICHOLZ, THERAPY DIRECTOR CRISTINA Primary Care Unavailable MISC, DR DECKER Consulting Unavailable AICHOLZ, THERAPY DIRECTOR CRISTINA Primary Care Unavailable PAY ., DR ZULUAGA Admitting Unavailable PAY ., DR ZULUAGA Attending Unavailable PAY ., DR ZULUAGA Consulting Unavailable CHITRA ALFARO Consulting Unavailable AICHHOLZ, THERAPY DIRECTOR CRISTINA Primary Care Unavailable PAY ., DR ZULUAGA Admitting Unavailable PAY ., DR ZULUAGA Attending Unavailable ZIEBER, DR RYDER R Consulting Unavailable PAY ., DR ZULUAGA Consulting Unavailable AICHOLZ, THERAPY DIRECTOR CRISTINA Primary Care Unavailable TJ .GELA Admitting Unavailable TJ ., GELA Attending Unavailable BARBI HENRY Consulting Unavailable TJ ., GELA Consulting Unavailable [facility] Primary Care Physician [phone] Lala Zarco Primary Care Physician [phone] [facility] Primary Care Unavailable Momichelineli, Paradiseamad A. Admitting Unavailable MoSandoval felipe A. Attending Unavailable Mouchli, Mohamad A. Referring Unavailable Momichelineli, Mohamad A. Attending Unavailable Momichelineli, Mohamad A. Attending Unavailable Momichelineli, Mohamad A. Attending Unavailable Sandoval Rae AYaw Attending Unavailable Lala Zarco Attending Unavailable Lala Zarco Attending Unavailable [facility] Primary Care Unavailable Lala Zarco Attending Unavailable Mouchli, Mohamad A. Admitting Unavailable Sandoval Rae Attending Unavailable Sandoval Rae Referring Unavailable Eligio Noe Attending Unavailable Eligio Noe Admitting Unavailable Cristina Iqbal Primary Care Unavailable Carolee, PLAN REP Lala L Attending Unavailable Carolee, PLAN REP Lala L Attending Unavailable Carolee, PLAN REP Lala L Attending Unavailable Carolee, PLAN REP Lala L Admitting Unavailable Carolee, PLAN REP Lala L Admitting Unavailable Carolee, PLAN REP Lala L Attending Unavailable Alonzo RUBBER CHEMIST, [place] Primary Care Provider Farida HOLLEY, Cristina Brambila Unavailable [phone] Medications Current Medications MedicationDrug Class(es)DatesSig (Normalized)Sig (Original)albuterol 0.83 mg/ml inhalation solution (20 sources)beta2-Adrenergic AgonistStart: 83-05-7110guvz 2.5 mg by inhalation every six hours as neededAlbuterol Sulfate 2.5 mg /3 mL (0.083 %) solution for nebulization Active 2.5 MG INHALATION Every 6hours as needed June 16, 2024 12:00amStart: 19-00-0127Bjrzwfxkw Sulfate 90 mcg/actuation HFA aerosol inhaler Active 2 INH INHALATION Q6H as needed June 16, 2024 12:00amStart: 07-16-2019 albuterol (PROVENTIL) 2.5 mg /3 mL (0.083 %) nebulizer solution 2.5 mg . 0 07/16/2019 ActiveStart: 25-19-8775fkzh 2.5 mg by inhalation every six hours as neededalbuterol 0.083% Inh Misty 3 mL 2.5 mg, 3 mL, Inhalation, q6hr, Refill(s) 12, Q6H and PRN Start Date:07/16/19 Status: Orderedalbuterol 0.833 mg/ml / ipratropium bromide 0.167 mg/ml inhalation solution (1 source)Anticholinergic, beta2-Adrenergic AgonistStart: 62-49-4214Oikacokjirn- Albuterol 0.5 mg-3 mg(2.5 mg base)/3 mL solution for nebulization Active 3 ML INHALATION every 6 to 8 hours as needed June 16, 2024 12:00amALPRAZolam 0.5 mg oral tablet (20 sources)BenzodiazepineStart: 05-31-2021 End: 04-79-9334mqmc 1 tablet by mouth every eight hours as neededALPRAZolam (XANAX) 0.5 mg tablet Take 0.5 mg by mouth three times daily as needed. 12/20/2021 ActiveStart: 88-61-1012jwam 1 tablet by mouth three times daily as needed for anxietyALPRAZolam (XANAX) 0.5 MG tablet Indications: Generalized anxiety disorder Take 1 (one) tablet (0.5mg total) by mouth 3 (three) times a day as needed for sleep or anxiety . 90 tablet 0 04/03/2021 ActiveStart: 10-28-2020 End: 79-40-1398zhki 1 tablet by mouth three times daily as needed for anxiety ALPRAZolam (XANAX) 0.5 MG tablet Indications: Generalized anxiety disorder Take 1 (one) tablet (0.5mg total) by mouth 3 (three) times a day as needed for sleep or anxiety . 90 tablet 0 03/01/2021 04/03/2021 Discontinued (Reorder)Start: 05-24-2020 End: 90-81-9829fjyi 1 tablet by mouth three times daily as needed for anxiety ALPRAZolam (XANAX) 0.5 MG tablet Indications: Generalized anxiety disorder Take 1 (one) tablet (0.5mg total) by mouth 3 (three) times a day as needed for sleep or anxiety . 90 tablet 1 08/22/2020 ActiveStart: 03-18-2017 End: 52-18-8151npbh 0.5 mg by mouth twice dailyAlprazolam 1 mg tablet Discontinued 0.5 MG PO Twice daily March 18, 2017 1:00am May 06, 2019 3:35pmStart: 03-18-2017 End: 84-81-2089emnf 1 tablet by mouth once dailyAlprazolam (Xanax) 1 mg Tablet Discontinued 1 MG PO Daily March 18, 2017 1:00am May 06, 2019 3:35pm Comment on above:Take 0.5 mg by mouth three times daily as needed.amitriptyline hydrochloride 25 mg oral tablet (2 sources)Tricyclic AntidepressantStart: 57-47-6733avvr 1 tablet by mouth once daily at bedtimeAmitriptyline 25 mg tablet Active 25 MG PO Daily at bedtime June 16, 2024 12:00amStart: 11-82-1641cstm 1 tablet by mouth once daily at bedtimeElavil 25 mg Tab 25 mg = 1 tab(s), Oral, Once a day (at bedtime), # 30 tab(s), Refills(s) 5, Pharmacy: [facility]/pharmacy #[id number], 169, cm, 03/23/24 13:17:00 EST, Height/Length Dosing, 64.9, kg, 03/23/24 13:17:00 EST, Weight Dosing Start Date: 03/23/24 Status: OrderedARIPiprazole 5 mg oral tablet (2 sources)Atypical AntipsychoticStart: 41-97-0354oreg 1 tablet by mouth once dailyARIPiprazole (ABILIFY) 5 MG tablet Take 1 (one) tablet (5 mg total) by mouth daily . 30 tablet 2 09/27/2021 Activecephalexin 500 mg oral capsule (1 source)Cephalosporin AntibacterialStart: 09-24-2023 End: 90-32-4528kuxh 1 capsule by mouth every twelve hoursKeflex 500 mg Cap 500 mg = 1 cap(s), Oral, q12hr, X 5 day(s), # 10 cap(s), Refills(s) 0, Pharmacy: [facility]/pharmacy #[id number], 172, cm, 09/24/23 13:02:00 EDT, Height/Length Dosing, 61.2, kg, 09/24/23 13:02:00 EDT, Weight Dosing Start Date: 09/24/23 Stop Date: 09/29/23 Status: Orderedcholestyramine resin 4000 mg powder for oral suspension (5 sources)Bile Acid SequestrantStart: 02-28-3958Agcmzqrt 4 g/9 g oral powder = 1 packet(s), Oral, BID, # 60 EA, Refills(s) 2, Pharmacy: [facility]/pharmacy #[id number], 169, cm, 01/16/24 10:14:00 EDT, Height/Length Dosing, 63.9, kg, 01/16/24 10:14:00 EDT, Weight Dosing Start Date: 01/16/24 Status: OrderedcloNIDine hydrochloride 0.2 mg oral tablet (20 sources)Central alpha-2 Adrenergic AgonistStart: 12-95-7037lxoj 1 tablet by mouth once daily at bedtimeClonidine Hcl 0.2 mg tablet Active 0.2 MG PO Daily at bedtime June 16, 2024 12:00amStart: 05-24-2020 End: 68-18-8435krvp 1 tablet by mouth at bedtimecloNIDine 0.2 mg Tab 0.2 mg = 1 tab(s), Oral, Bedtime, # 30 tab(s), Refills(s) 1, Pharmacy: [facility]/pharmacy #[id number], 173, cm, 05/24/20 14:42:00 EST, Height/Length Dosing, 50.1, kg, 05/24/20 14:42:00 EST, Weight Dosing Start Date: 05/24/20 Status: Orderedenteric contrast (will be provided with radiology test) (1 source)Start: 03-02-2022 End: 39-64-8457lshkwtl contrast (will be provided with radiology test) For CT ENTEROGRAPHY W IVCON order Administer, As Directed One Time Only, via Oral, Rectal, both Oral and Rectal, Enteric Tube, Stoma or Indwelling Catheter, Enteric Contrast as designated per enteric contrast guidelines. 1 Each 0 03/02/2022 03/03/2022 ActiveComment on above:For CT ENTEROGRAPHY W IVCON order Administer, As Directed One Time Only, via Oral, Rectal, both Oral and Rectal, Enteric Tube, Stoma or Indwelling Catheter, Enteric Contrast as designated per entericcontrast guidelines.30 actuat fluticasone furoate 0.1 mg/actuat / vilanterol 0.025 mg/actuat dry powder inhaler (1 source)Corticosteroid, beta2-Adrenergic AgonistStart: 69-35-7951Fftjnykqkvm Furoate-Vilanterol 0 blister with device Active 2 PUFF INHALATION Daily March 18, 2017 1:00amhydrOXYzine hydrochloride 50 mg oral tablet (15 sources)AntihistamineStart: 16-77-0848qjco 1 tablet by mouth three times daily as needed for anxietyhydrOXYzine hydrochloride 50 mg oral tablet 50 mg = 1 tab(s), Oral, TID, PRN as needed for anxiety,# 30 tab(s), Refills(s) 0, Pharmacy: [facility]/pharmacy #[id number], 173, cm, 04/26/20 13:07:00 EST, Height/Length Dosing, 52.8, kg, 04/26/20 13:07:00 EST, Weight Dosing Start Date: 04/26/20 Status: OrderedStart: 03-18-2017 End: 27-67-0366zvph 1 capsule by mouth three times dailyHydroxyzine Pamoate 50 mg capsule Discontinued 50 MG PO Three times daily March 18, 2017 1:00am F ebruary 2019 3:36pm End: 31-00-9363fhwo 1 capsule by mouth every eight hours as neededhydrOXYzine pamoate 25 mg capsule Take 25 mg by mouth three times daily as needed. 0 01/03/2022 Discontinued (Course of therapy completed)Comment on above:Take 25 mg by mouth three times daily as needed.iv contrast (will be provided with radiology test) (1 source)Start: 03-02-2022 End: 61-10-9036kq contrast (will be provided with radiology test) CT Enterography W Inject, intravenously, once for 1 dose.No IV access, insert saline lock prior to the beginning of sedation, infusion, injection ofimaging exam. Discontinue saline lock post exam. If Pt. has a central line or IVAD, may access for administration according to line specific nursing protocol. Once exam is complete flush line and de-access according to line specific nursing protocol in the CT contrast administration guidelines link. 1 Each 0 03/02/2022 03/03/2022 ActiveComment on above:CT Enterography W Inject, intravenously, once for 1 [...] protocol in the CT contrast administration guidelines link.lamoTRIgine 200 mg oral tablet (20 sources)Mood Stabilizer, Anti-epileptic AgentStart: 48-42-6314lzyx 1 tablet by mouth once dailylamotrigine 25 mg Tab See Instructions, TAKE 1 TABLET BY MOUTH EVERY DAY IN THE AFTERNOON, # 30 tab(s), Refills(s) 0, Pharmacy: [facility] STORE [id number], 169.7, cm, 11/26/23 15:32:00 EDT, Height/Length Dosing, 62.1, kg, 11/26/23 15:32:00 EDT, Weight Dosing Start Date: 11/27/23 Status: OrderedStart: 56-52-9370jlhz 1 tablet by mouth once dailyLamotrigine 200 mg tablet Active 200 MG PO Daily June 16, 2024 12:00amStart: 10-28-2020 End: 75-71-3097aibd 1 tablet by mouth once dailylamoTRIgine (LAMICTAL) 200 MG tablet Take 1 (one) tablet (200 mg total) by mouth daily . 30 tablet 5 10/03/2021 ActiveStart: 11-36-0529vmhp 1 tablet by mouth once dailylamoTRIgine (LAMICTAL) 200 MG tablet Take 1 (one) tablet (200 mg total) by mouth daily Start: 08/29/20. 30 tablet 1 08/29/2020 ActiveStart: 07-08-2020 End: 35-76-9352puouUORgyhv (LAMICTAL) 25 MG tabletComment on above:Take 200 mg by mouth.mirtazapine 7.5 mg oral tablet (8 sources)Start: 42-50-7428xuix 1 tablet by mouth once daily at bedtime Mirtazapine 7.5 mg tablet Active 7.5 MG PO Daily at bedtime June 16, 2024 12:00amStart: 23-36-1567cidy 1 tablet by mouth at bedtimemirtazapine 7.5 mg oral tablet 7.5 mg = 1 tab(s), Oral, Bedtime, # 30 tab(s), Refills(s) 0, Pharmacy: [facility]/pharmacy #[id number], 169.7, cm, 10/03/23 9:38:00 EDT, Height/Length Dosing, 62.5, kg, 10/03/23 9:38:00 EDT, Weight Dosing Start Date: 10/31/23 Status: Ordered Start: 05-06-2019 End: 64-32-5234ecqd 1 tablet by mouth once dailyMirtazapine 15 mg tablet Discontinued 15 MG PO Daily May 06, 2019 1:00am June 16, 2024 12:11pm24 hr nicotine 0.875 mg/hr transdermal system (8 sources)Cholinergic Nicotinic AgonistStart: 44-87-7729nggyzobg 21 mg/24 hr Transderm ER Film Refill(s) 0 Start Date: 02/18/24 Status: OrderedStart: 10-24-2012 End: 94-44-1790wlias 1 dose transdermal route every twenty-four hoursnicotine 21 mg/24 hr Indications: Tobacco abuse Apply 1 Patch as directed every 24 hours. 30 Patch 3 10/24/2012 01/03/2022 Discontinued (Course of therapy completed)Comment on above:Apply 1 Patch as directed every 24 hours.OLANZapine 5 mg oral tablet (20 sources)Atypical AntipsychoticStart: 91-05-2191codm 1 tablet by mouth once dailyOLANZapine (ZYPREXA) 5 MG tablet Take 1 (one) tablet (5 mg total) by mouth nightly . 30 tablet 0 04/20/2022 ActiveStart: 12-19-2021 End: 92-58-6688cmhh 1 tablet by mouth once dailyOLANZapine (ZYPREXA) 5 MG tablet Take 1 (one) tablet (5 mg total) by mouth nightly . 30 tablet 0 03/20/2022 04/20/2022 Discontinued (Reorder (Suppress CancelRx Message to Pharmacy))Comment on above:Take 5 mg by mouth daily at bedtime.omeprazole 20 mg delayed release oral capsule (7 sources)Proton Pump InhibitorStart: 07-01-5333bhyk 1 capsule by mouth once dailyOmeprazole 20 mg capsule,delayed release(DR/EC) Active 20 MG PO Daily June 16, 2024 12:00amStart: 75-10-6169kbuo 1 capsule by mouth once dailyomeprazole 20 mg Cap-DR See Instructions, TAKE 1 CAPSULE BY MOUTH EVERY DAY, # 30 cap(s), Refills(s) 0, Pharmacy: [id number], 169, cm, 02/25/24 9:14:00 EST, Height/Length Dosing, 62.2, kg, 02/25/24 9:14:00 EST, Weight Dosing Start Date: 03/23/24 Status: OrderedStart: 56-82-5074vvyi 1 capsule by mouth once daily omeprazole 20 mg Cap-DR See Instructions, TAKE 1 CAPSULE BY MOUTH EVERY DAY, # 30 cap(s), Refills(s) 0, Pharmacy: [facility] ST[id number], 169, cm, 02/21/24 8:47:00 EST, Height/Length Dosing, 62.2, kg, 02/21/24 8:47:00 EST, Weight Dosing Start Date: 02/24/24 Status: OrderedStart: 65-82-9044uzrh 1 capsule by mouth once daily omeprazole 20 mg Cap-DR See Instructions, TAKE 1 CAPSULE BY MOUTH EVERY DAY, # 30 cap(s), Refills(s) 0, Pharmacy: [facility] STORE [id number], 169, cm, 01/16/24 10:14:00 EDT, Height/Length Dosing, 63.9, kg, 01/16/24 10:14:00 EDT, Weight Dosing Start Date: 01/20/24 Status: OrderedStart: 78-68-5519ohha 1 capsule by mouth once daily omeprazole 20 mg Cap-DR See Instructions, TAKE 1 CAPSULE BY MOUTH EVERY DAY, # 30 cap(s), Refills(s) 0, Pharmacy: [facility]/pharmacy #[id number], 169.7, cm, 11/26/23 15:32:00 EDT, Height/Length Dosing, 62.1, kg,11/26/23 15:32:00 EDT, Weight Dosing Start Date: 12/04/23 Status: Orderedondansetron 8 mg disintegrating oral tablet (20 sources)Serotonin-3 Receptor AntagonistStart: 55-02-5986jvhq 1 tablet by mouth every eight hours as neededOndansetron 8 mg tablet,disintegrating Active 8 MG PO Every 8 hours as needed June 16, 2024 12:00amStart: 80-37-7699reqw 1 tablet by mouth every eight hours as needed for nauseaZofran 4 mg Tab 4 mg = 1 tab(s), Oral, q8hr, PRN Nausea, # 30 tab(s), Refills(s) 0, Pharmacy: [facility] #[id number], 169, cm, 02/25/24 9:14:00 EST, Height/Length Dosing, 62.2, kg, 02/25/24 9:14:00 EST, Weight Dosing Start Date: 02/27/24 Status: OrderedStart: 52-76-4273tuidflplcnl 8 mg Dis Tab See Instructions, DISSOLVE 1 TABLET ON THE TONGUE EVERY 8 HOURS NEEDED FOR NAUSEA AND VOMITING, # 24 tab(s), Refills(s) 0, Pharmacy: [facility]/pharmacy #[id number], 169, cm, 02/18/24 11:55:00 EST, Height/Length Dosing, 61.8, kg, 02/18/24 11:55:00 EST, Weight Dosing Start Date: 02/18/24 Status: OrderedStart: 99-89-2443ptou 1 tablet by mouth every six hours as needed for nauseaondansetron 4 mg Dis Tab 4 mg = 1 tab(s), Oral, q6hr, PRN Nausea/Vomiting, # 30 tab(s), Refills(s) 0, Pharmacy: [facility]/pharmacy #[id number], 169.7, cm, 11/26/23 15:32:00 EDT, Height/Length Dosing, 62.1, kg, 11/26/23 15:32:00 EDT, Weight Dosing Start Date: 12/20/23 Status: OrderedStart: 03-01-2022 End: 27-30-2636xxss 1 tablet by mouth every twelve hours as neededondansetron orally disintegrating (ZOFRAN ODT) 8 mg disintegrating tablet Take 1 tablet by mouth every 12 hours as needed for nausea/vomiting. 60 tablet 5 05/10/2022 11/06/2022 ActiveStart: 02-16-2022 End: 47-07-0901itrt 1 tablet by mouth once daily as needed for nauseaondansetron (ZOFRAN) 4 mg tablet Take 1 tablet by mouth once daily as needed for nausea/vomiting (for nausea.) for up to 14 days. 30 tablet 0 02/16/2022 03/02/2022 ActiveStart: 04-26-2020 End: 06-24-6889qpsn 1 tablet by mouth every eight hours as needed for nausea Zofran 4 mg Tab 4 mg = 1 tab(s), Oral, q8hr, PRN Nausea, # 10 tab(s), Refills(s) 0, Pharmacy: [facility]/pharmacy #[id number], 173, cm, 04/26/20 13:07:00 EST, Height/Length Dosing, 52.8, kg, 04/26/20 13:07:00 EST, Weight Dosing Start Date: 04/26/20 Status: OrderedStart: 02-27-2019 End: 70-08-8585qiza 1 tablet by mouth every eight hours as needed for nausea and vomitingOndansetron 8 mg tablet,disintegrating Discontinued 8 MG PO Q8H as needed for nausea and vomiting 04 08February 27, 2019 1:00am May 06, 2019 3:36pmStart: 03-18-2017 End: 13-23-9594Vbuqklpndsy 4 mg tablet,disintegrating Discontinued March 18, 2017 1:00am August 15, 2017 11:53pmComment on above:Take 4 mg by mouth every 8 hours as needed.Take 1 tablet by mouth every 8 hours as needed for nausea/vomiting (for nausea.).Take 1 tablet by mouth once daily as needed for nausea/vomiting (for nausea.) for up to 14 days.Take 1 tablet by mouth every 12 hours as needed for nausea/vomiting.Oxygen unit (2 sources)Start: 22-30-7988Hzraek unit Active 0 .Route June 25, 2024 11:38am As directed 1 L/M DME Rogelio she has POC alsoStart: 06-25-2024 End: 07-44-8106Esdqif unit Discontinued 0 .Route June 25, 2024 12:00am June 25, 2024 11:39am As directedpantoprazole 40 mg delayed release oral tablet (20 sources)Proton Pump InhibitorStart: 74-91-0149Aleaopkn 40 mg Tab-DR Oral, 0 Refill(s), Refills(s) 0 Start Date: 07/16/19 Status: OrderedStart: 76-45-3041ygfq 1 tablet by mouth once dailypantoprazole 40 mg Oral EC Tab 40 mg = 1 tab(s), Oral, Daily, # 30 tab(s), Refills(s) 0 Start Date:07/16/19 Status: OrderedComment on above:Take 40 mg by mouth once daily.polyethylene glycol 3350 21283 mg powder for oral solution (18 sources)Osmotic LaxativeStart: 25-98-6035lbnneukulpea glycol (MIRALAX) 17 gram powder MIX 1 PACKET IN DRINK AND TAKE ONCE DAILY 0 1Active prochlorperazine 5 mg oral tablet (16 sources)PhenothiazineStart: 02-07-2022 End: 22-66-4958fgom 1 tablet by mouth every six hours as needed for nausea and vomitingprochlorperazine (COMPAZINE) 5 mg tablet TAKE 1 TABLET BY MOUTH EVERY 6 HOURS NEEDED FOR NAUSEA AND VOMITING 100 tablet 1 03/14/2022 ActiveStart: 01-05-2022 End: 07-66-1338ingf 1 tablet by mouth every six hours as neededprochlorperazine (COMPAZINE) 5 mg tablet Take 1 tablet by mouth every 6 hours as needed for nausea/vomiting. 120 tablet 0 01/05/2022 02/04/2022 ActiveComment on above:Take 1 tablet by mouth every 6 hours as needed for nausea/vomiting.TAKE 1 TABLET BY MOUTH EVERY 6 HOURS NEEDED FOR NAUSEA AND VOMITINGpromethazine hydrochloride 25 mg oral tablet (11 sources)PhenothiazineStart: 36-38-9305obhh 1 tablet by mouth three times dailyPromethazine 25 mg tablet Active 25 MG PO Three times daily June 16, 2024 12:00amStart: 12-89-9057xvsh 1 tablet by mouth three times dailypromethazine 25 mg Tab 25 mg = 1 tab(s), Oral, TID, # 15 tab(s), Refills(s) 1, Pharmacy: [facility]/pharmacy #[id number], 169, cm, 03/23/24 13:17:00 EST, Height/Length Dosing, 64.9, kg, 03/23/24 13:17:00 EST, Weight Dosing Start Date: 03/23/24 Status: Ordered Start: 88-72-8981qhie 1 tablet by mouth three times dailypromethazine 25 mg Tab 25 mg = 1 tab(s), Oral, TID, # 15 tab(s), Refills(s) 0, Pharmacy: [facility]/pharmacy #[id number], 172, cm, 09/24/23 13:02:00 EDT, Height/Length Dosing, 61.2, kg, 09/24/23 13:02:00 EDT, Weight Dosing Start Date: 09/24/23 Status: OrderedStart: 12-03-2021 take 1 tablet by mouth every four hourspromethazine 25 mg Tab 25 mg = 1 tab(s), Oral, q4hr, # 12 tab(s), Refills(s) 0, Pharmacy: [facility]/pharmacy #[id number], 172.9, cm, 12/03/21 10:15:00 EDT, Height/Length Dosing, 46.2, kg, 12/03/21 10:15:00 EDT, W eight Dosing Start Date: 12/03/21 Status: OrderedStart: 57-14-5016Mbyimanks 25 mg Supp 25 mg = 1 supp, Rectal, q6hr, PRN as needed for nausea, Insert one per rectum every six hours as needed for nausea and vomiting, # 6 EA, Refills(s) 0, Pharmacy: [facility]/pharmacy #[id number], 172.9, cm, 12/03/21 10:15:00 EDT, Height/Length Dosing, 46.2, kg, 12/03/21 10:15:00 EDT, Weight Dosing Start Date: 12/03/21 Status: OrderedrisperiDONE 2 mg oral tablet (16 sources)Atypical AntipsychoticStart: 10-28-2020 End: 95-03-4153uxjy 1 tablet by mouth once dailyrisperiDONE (RISPERDAL) 2 MG tablet Take 1 (one) tablet (2 mg total) by mouth daily . 30 tablet 5 09/19/2021 ActiveStart: 06-24-2020 End: 03-76-3218dovf 1 tablet by mouth once dailyrisperiDONE (RISPERDAL) 4 MG tablet Take 1 (one) tablet (4 mg total) by mouth daily . 30 tablet 5 08/22/2020 Activesucralfate 1000 mg oral tablet (3 sources)Aluminum ComplexStart: 02-21-2024 End: 96-39-0962lfif 1 tablet by mouth four times dailyCarafate 1 gram Tab 1 gm = 1 tab(s), Oral, QID, X 14 day(s), # 56 tab(s), Refills(s) 0, Pharmacy: [facility]/pharmacy #[id number], 169, cm, 02/21/24 8:47:00 EST, Height/Length Dosing, 62.2, kg, 02/21/24 8:47:00 EST, Weight Dosing Start Date: 02/21/24 Stop Date: 03/06/24 Status: OrderedStart: 05-06-2019 End: 12-58-2677mzqj 1 tablet by mouth four times dailySucralfate 1 gram tablet Discontinued 1 GM PO Four times daily May 06, 2019 1:00am June 25, 2024 11:36am60 actuat tiotropium 0.0025 mg/actuat inhalation spray (20 sources)AnticholinergicStart: 23-53-4294zgda 1 puff(s) by inhalation once dailyTiotropium [place] (Spiriva Respimat) 2.5 mcg/actuation mist Active 2 PUFF INHALATION Daily June 16, 2024 12:00amStart: 30-41-5016Tsowwsb Respimat 10 ACT 2.5 mcg/inh inhalation aerosol = 2 puff(s), Inhalation, Daily, Refills(s) 0Start Date: 02/18/24 Status: OrderedStart: 31-10-9389Allodyb Respimat 60 ACT 2.5 mcg/inh inhalation aerosol = 2 inh, Inhalation, Daily, # 4 gm, Refills(s) 11, Pharmacy: [facility]/pharmacy #[id number], 169.7, cm, 11/26/23 15:32:00 EDT, Height/Length Dosing, 62.1, kg, 11/26/23 15:32:00 EDT, Weight Dosing Start Date: 11/27/23 Status: OrderedStart: 87-50-8780Ozzgzai Respimat 10 ACT 2.5 mcg/inh inhalation aerosol = 2 puff(s), Inhalation, Daily, Refills(s) 0Start Date: 07/16/19 Status: OrderedStart: 03-18-2017 End: 75-11-2416ufml 1 puff(s) by inhalation once dailyTiotropium [place] 2.5 mcg/actuation mist Discontinued 2 PUFF INHALATION Daily March 18, 2017 1:00am June 16, 2024 12:44pmtake 1 capsule by inhalation once dailytiotropium (SPIRIVA WITH HANDIHALER) 18 mcg inhalation capsule Inhale 18 mcg as instructed once daily. ActiveComment on above:Inhale 18 mcg as instructed once daily. Ventolin HFA 90 mcg/inh Aerosol (7 sources)Start: 93-07-7565ionw 2 puff(s) by inhalation every four hours for wheezingVentolin HFA 90 mcg/inh Aerosol 2 puff(s), Inhalation, q4hr for wheezing, 18 gram, Refill(s) 0 Start Date: 07/16/19 Status: OrderedZofran ODT 4 mg Tab-Dis (7 sources)Start: 69-83-2555txzk 1 tablet by mouth three times dailyZofran ODT 4 mg Tab-Dis 4 mg = 1 tab(s), Oral, TID, # 15 tab(s), Refills(s) 0, Pharmacy: [facility]/pharmacy #[id number], 172, cm, 09/24/23 13:02:00 EDT, Height/Length Dosing, 61.2, kg, 09/24/23 13:02:00 EDT, Weight Dosing Start Date: 09/24/23 Status: Ordered Zofran ODT 8 mg Tab-Dis (5 sources)Start: 19-16-2940vdeo 1 tablet under the tongue every eight hours as needed for nauseaZofran ODT 8 mg Tab-Dis 8 mg = 1 tab(s), SubLingual, q8hr, PRN Nausea/Vomiting, # 24 tab(s), Refills(s) 0, Pharmacy: [facility]/pharmacy #[id number], 169, cm, 03/23/24 13:17:00 EST, Height/Length Dosing, 64.9, kg, 03/23/24 13:17:00 EST, Weight Dosing Start Date: 03/23/24 Status: OrderedStart: 74-77-8620fcqc 1 tablet under the tongue every eight hours as needed for nauseaZofran ODT 8 mg Tab-Dis 8 mg = 1 tab(s), SubLingual, q8hr, PRN Nausea/Vomiting, # 24 tab(s), Refills(s) 0, [id number], cm, 01/16/24 10:14:00 EDT, Height/Length Dosing, 63.9, kg, 01/16/24 10:14:00 EDT, Weight Dosing Start Date: 02/12/24 Status: OrderedStart: 87-15-4522jnoe 1 tablet under the tongue every eight hours as needed for nauseaZofran ODT 8 mg Tab-Dis 8 mg = 1 tab(s), SubLingual, q8hr, PRN Nausea/Vomiting, # 24 tab(s), Refills(s) 0, Pharmacy: [facility]/pharmacy #[id number], 169, cm, 01/16/24 10:14:00 EDT, Height/Length Dosing, 63.9, kg, 01/16/24 10:14:00 EDT, Weight Dosing Start Date: 01/23/24 Status: Ordered Completed/Discontinued Medications MedicationDrug Class(es)DatesSig (Normalized)Sig (Original)amylase 474266 unt / lipase 33697 unt / protease [id number] unt delayed release oral capsule (1 source)Start: 05-06-2019 End: 84-82-5802chli 1 tablet by mouth three times tkuyoWnfxju-Utfpnjyt-Gvpduxe 40,000-126,000- 168,000 unit capsule,delayed release(DR/EC) Discontinued 1 TAB PO Three times daily May 06, 2019 1:00am June 25, 2024 11:37am clonazePAM 1 mg oral tablet (7 sources)Benzodiazepine End: 83-02-4216hwhq 1 tablet by mouth every twelve hours as neededclonazePAM 1 mg tablet Take 1 mg by mouth twice daily as needed. 0 01/03/2022 Discontinued (Course of therapy completed)Comment on above:Take 1 mg by mouth twice daily as needed.colestipol hydrochloride 1000 mg oral tablet (6 sources)Bile Acid SequestrantStart: 06-16-2024 End: 96-56-1309mclv 2 tablets by mouth twice dailyColestipol 1 gram tablet Discontinued 1 GM PO Twice daily June 16, 2024 12:00am June 25, 2024 1 1:34am 2 tablets BIDStart: 65-43-8509qusm 2 tablets by mouth twice daily colestipol 1 g Tab 2 gm = 2 tab(s), Oral, BID, with a full glass of water, # 120 tab(s), Refills(s)1, Pharmacy: [facility]/pharmacy #[id number], 169, cm, 01/16/24 10:14:00 EDT, Height/Length Dosing, 63.9, kg, 01/16/24 10:14:00 EDT, Weight Dosing Start Date: 01/23/24 Status: Ordereddiclofenac sodium 0.01 mg/mg topical gel (7 sources)Nonsteroidal Anti-inflammatory DrugStart: 10-24-2012 End: 56-02-4080Emvecsnbkl Sodium (VOLTAREN) 1 % gel Indications: Hand pain , Joint swelling apply 2gms to areas ofjoint pain up to four times a day. Avoid contact with eyes. Do not exceed 32gm/day 100 g 5 10/24/2012 01/03/2022 Discontinued (Course of therapy completed)Comment on above:apply 2gms to areas of joint pain up to four times a day. Avoid contact with eyes. Do not exceed 32g m/dayfluticasone / salmeterol (7 sources)Corticosteroid, beta2-Adrenergic Agonist End: 50-92-1214vyvx 1 puff(s) by inhalation twice dailyfluticasone-salmeterol (ADVAIR DISKUS) 100-50 mcg/dose DsDv Inhale 1 Puff as instructed twice daily. 0 01/03/2022 Discontinued (Course of therapy completed)take 1 puff(s) by inhalation twice dailyfluticasone-salmeterol (ADVAIR DISKUS) 100-50 mcg/dose DsDv Inhale 1 Puff as instructed twice daily. 0 ActiveComment on above:Inhale 1 Puff as instructed twice daily.gabapentin 600 mg oral tablet (8 sources)Anti-epileptic AgentStart: 03-18-2017 End: 11-86-4582Gqdlbzajzi 600 mg tablet Discontinued 300 MG PO Three times daily March 18, 2017 1:00am 2019 3:36pmStart: 10-24-2012 End: 72-38-8644naudngkzcf (NEURONTIN) 100 mg capsule Indications: Hand pain , Numbness and tingling , Neuropathy Take 1cap nightly x 3-5days, increase 1cap every 3-5days until 3caps AM/3caps noon/3capsPM thereafterif tolerated/necessary. 270 capsule 3 10/24/2012 01/03/2022 Discontinued (Course of therapy completed)Comment on above:Take 1cap nightly x 3-5days, increase 1cap every 3-5days until 3caps AM/3caps noon/3capsPM thereafter if tolerated/necessary.ibuprofen 800 mg oral tablet (1 source)Nonsteroidal Anti-inflammatory DrugStart: 03-18-2017 End: 45-90-3429Wudofpwuy 800 mg tablet Discontinued TABLET March 18, 2017 1:00am August 15, 2017 11:53pmlevoFLOXacin 750 mg oral tablet (1 source)Quinolone AntimicrobialStart: 06-16-2024 End: 14-14-2168slxk 1 tablet by mouth once dailyLevofloxacin 750 mg tablet Discontinued 750 MG PO Daily June 16, 2024 12:00am June 25, 2024 11:35am lurasidone hydrochloride 120 mg oral tablet (1 source)Atypical AntipsychoticStart: 03-18-2017 End: 45-83-5720ruar 1 tablet by mouth once dailyLurasidone (Latuda) 120 mg tablet Discontinued 120 MG PO Daily March 18, 2017 1:00am May 06, 2019 3:36pmmetoclopramide 10 mg oral tablet (1 source)Dopamine-2 Receptor AntagonistStart: 12-11-2021 End: 65-12-4761okhs 1 tablet by mouth every eight hours as neededmetoclopramide HCl (REGLAN) 10 mg tablet Take 10 mg by mouth every 8 hours as needed. 0 12/11/2021 01/05/2022 Discontinued (Course of therapy completed)Comment on above:Take 10 mg by mouth every 8 hours as needed.prazosin 2 mg oral capsule (7 sources)alpha-Adrenergic Cari End: 25-85-0997ddcm 1 capsule by mouth twice dailyprazosin 2 mg cap Take by mouth twice daily. 0 01/03/2022 Discontinued (Course of therapy completed) Comment on above:Take by mouth twice daily.predniSONE 20 mg oral tablet (1 source)Start: 06-16-2024 End: 73-01-4457ewlb 1 tablet by mouth once dailyPrednisone 20 mg tablet Discontinued 20 MG PO Daily June 16, 2024 12:00am June 25, 2024 11:36am sertraline 100 mg oral tablet (8 sources)Serotonin Reuptake InhibitorStart: 05-06-2019 End: 59-27-2763agit 1 tablet by mouth once dailySertraline 100 mg tablet Discontinued 100 MG PO Daily May 06, 2019 1:00am June 25, 2024 11:36am Comment on above:Take 100 mg by mouth once daily.temazepam 15 mg oral capsule (1 source)BenzodiazepineStart: 03-18-2017 End: 00-48-1822Gdlgkrkqv 15 mg capsule Discontinued March 18, 2017 1:00am August 15, 2017 11:53pm Problems Active Problems Problem ClassificationProblemDateDocumented DateEpisodic/ChronicAbdominal pain (20 sources)Left upper quadrant pain; Translations: [Left upper quadrant pain] Onset: 02-86-2299GxwrxgqrToguyoo-related disorders (7 sources)Gworgfvjom93-51-8222BqogrncDguxcow disorders (20 sources)Generalized anxiety disorder; Translations: [Generalized anxiety disorder]Onset: 79-35-0007UnngrltYhedzrree infection; unspecified site (1 source)Bacterial infectious disease; Translations: [Bacterial infection, unspecified]Onset: 57-19-5996JyosslmaTgbomt of other GI organs; peritoneum (3 sources)Malignant tumor of digestive organ; 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]Onset: 65-25-4628Xqvfsgf Chronic obstructive pulmonary disease and bronchiectasis (20 sources)Chronic obstructive lung disease; Translations: [Chronic obstructive pulmonary disease, unspecified]Onset: 372068-55-8464FvpgalqHncizozqhh disorders (20 sources)Gastroesophageal reflux disease; Translations: [Gastro-esophageal reflux disease without esophagitis]Onset: 875557-55-4145TqbxbftCwiotnssu and duodenitis (1 source)Unspecified chronic gastritis without bleeding; Translations: [UNS CHRONIC GASTRITIS W/O BLEEDING]Onset: 14-81-0985WctkxyyTcjbxnkm; including migraine (1 source)Acute pain in face; Translations: [Acute facial pain]03-18-2017 EpisodicMood disorders (20 sources)Moderate mixed bipolar I disorder; Translations: [Bipolar disorder, current episode mixed, moderate]Onset: 65-21-2609NlxwuweEjelmi and vomiting (20 sources)Nausea and vomiting; Translations: [Nausea with vomiting, unspecified]Onset: 66-56-3909MxugkokkFcxrffohqqkpg gastroenteritis (10 sources)Noninfectious enteritis; Translations: [Noninfective gastroenteritis and colitis, unspecified]Onset: 42-88-5205KwcsubwdKbdcapmovey deficiencies (20 sources)Deficiency of macronutrients; Translations: [Unspecified severe protein-calorie malnutrition]Onset: 01-74-9246KdorcfgQvybq aftercare (5 sources)H/O: high risk medication; Translations: [Other continuous churn buttermaker (current) drug therapy]EpisodicOther and unspecified benign neoplasm (1 source)Intestinal polyposis syndrome; Translations: [Benign neoplasm of colon, unspecified]EpisodicOther and unspecified benign neoplasm (10 sources)History of polyp of colon; Translations: [Personal history of colon polyps, unspecified]Onset: 67-63-4120RrgvwlvsCcqlx circulatory disease (20 sources)Raynaud's phenomenon; Translations: [Raynaud's syndrome without gangrene]Onset: 089016-98-5623LjrogxjZganw circulatory disease (20 sources)Low blood pressure; Translations: [Hypotension, unspecified]Onset: 488107-35-7377MxlkklicGsbin disorders of stomach and duodenum (4 sources)Gastroduodenal disorder; Translations: [Disease of stomach and duodenum, unspecified]Onset: 40-66-8203LbkxnubrGcmfd disorders of stomach and duodenum (6 sources)Disorder of -99-0652BcidqpyqRyixj gastrointestinal disorders (1 source)Irritable bowel syndrome without diarrhea; Translations: [IRRITABLE BOWEL SYND W/O DIARRHEA]Onset: 01-33-2276ZqagzvnZekcg gastrointestinal disorders (20 sources)Incontinence of feces; Translations: [Full incontinence of feces] Onset: 195226-90-4039ZhdepvlmRdjer gastrointestinal disorders (1 source)Polyp of small intestine; Translations: [Other specified diseases of intestine]EpisodicOther gastrointestinal disorders (7 sources)Diarrhea; Translations: [Diarrhea, unspecified]93-86-4223Kfqcvthc Other injuries and conditions due to external causes (1 source)History of fall; Translations: [History of falling]46-96-2435Qynbqrxx Other lower respiratory disease (7 sources)Chronic disease of respiratory -33-7976WarlpnssUebkg nervous system disorders (20 sources)Neuropathy; Translations: [Polyneuropathy, unspecified]Onset: 106057-28-1830BnjexecSxpmv nervous system disorders (1 source)Other chronic pain; Translations: [OTHER CHRONIC PAIN]Onset: 12-65-9253LfbfrcpSwlwz nervous system disorders (1 source)Other symptoms and signs involving cognitive functions and awareness; Translations: [OTH SX SIGNS COG FUNC AND AWARENESS]Onset: 25-51-6037Vxcrsoej Other nutritional; endocrine; and metabolic disorders (3 sources)Weight loss; Translations: [Abnormal weight loss]EpisodicOther nutritional; endocrine; and metabolic disorders (7 sources)Livvjapbhbw43-01-2002ClpgeuhvWjcsvcnz codes; unclassified (20 sources)Sleep apnea; Translations: [Sleep apnea, unspecified]Onset: 774704-26-7319PstsyfbVxlgoold codes; unclassified (4 sources)Obstructive sleep apnea (adult) (pediatric); Translations: [OBSTRUCTIVE SLEEP APNEA]Onset: 88-15-7192FruquqwYzqlfgng codes; unclassified (4 sources)Transient alteration of awareness; Translations: [TRANSIENT ALTERATION OF AWARENESS]Onset: 03-10-8585SqurukyiSnjicamf codes; unclassified (2 sources)Past history of procedure; Translations: [Other specified postprocedural states]Onset: 07-75-5059FkzuqotfKzxiyeve codes; unclassified (1 source)Acquired absence of organ; Translations: [Acquired absence of other specified parts of digestive tract]Onset: 90-03-6909GubblashOpzsuamu codes; unclassified (3 sources)Cmshunf26-18-4519OjkuufxbDtistspl codes; unclassified (3 sources)Family history of obpzxgys33-61-7184IiwikbojTppffxcil-isqambh disorders (13 sources)Nicotine dependence, cigarettes, uncomplicated; Translations: [Nicotine dependence]Onset: 517903-62-8702JmiltevNzxrjku on above:Added secondary to documentation in Social History.Unclassified (1 source)APPOINTMENT CANCELLEDUnclassified (2 sources)Medication ManagementOnset: 65-77-1290Nusrekudbzgt (20 sources)Patient encounter -53-4933Mwytbaftbcix (3 sources)Body mass index 20-24 - tjdovp03-82-7668Aekbmhz tract infections (1 source)Urinary tract infectious disease; Translations: [Urinary tract infection, site not specified]Onset: 16-31-9973Ogiqhkqn Past or Other Problems Problem ClassificationProblemDateDocumented DateEpisodic/ChronicFluid and electrolyte disorders (1 source)Dehydration; Translations: [DEHYDRATION]Onset: 42-98-7134Qgqfdwjd Fracture of lower limb (7 sources)Fracture of footOnset: 884605-64-7053NvigruryBwhzwjjumgbuv symptoms and ill-defined conditions (1 source)Personal history of urinary (tract) infections; Translations: [PERS HX URINARY TRACT INFECTIONS]Onset: 03-09-9246KhiujjsvMaprphzglpbwq and screening for infectious disease (20 sources)Anti-nuclear factor positive; Translations: [Other specified abnormal immunological findings in serum]Onset: 640708-34-4745Htpbjsld Nonspecific chest pain (5 sources)Chest pain, unspecified; Translations: [Other chest pain]Onset: 52-41-2066HrokndiwLcxvc aftercare (7 sources)Other halfway (current) drug therapy; Translations: [Other continuous churn buttermaker (current) drug therapy]Onset: 68-87-1315LqqnwricXnjcw connective tissue disease (20 sources)Hand pain; Translations: [Pain in unspecified hand]Onset: 10-24-2012 29-76-8684IyniaxyfMkhki gastrointestinal disorders (1 source)Diarrhea, unspecified; Translations: [DIARRHEA UNSPECIFIED]Onset: 12-91-3405VcvcftmdHbiyi nervous system disorders (20 sources)Numbness and tingling sensation of skin; Translations: [Anesthesia of skin]Onset: 507272-86-6830LypkxidlIczja non-traumatic joint disorders (20 sources)Joint swelling; Translations: [Effusion, unspecified joint]Onset: 311936-95-3216WqgqqzwgYoubf nutritional; endocrine; and metabolic disorders (1 source)Abnormal weight loss; Translations: [Weight loss]Onset: 12-15-2021 EpisodicOther screening for suspected conditions (not mental disorders or infectious disease) (20 sources)Elevated C-reactive protein; Translations: [Elevated C-reactive protein (CRP)]Onset: 788931-81-1954CznobcsdMrslkpdf codes; unclassified (20 sources)FH: Rheumatoid arthritis; Translations: [Family history of arthritis]Onset: 144383-97-2193AgoouzjhWazltocx codes; unclassified (20 sources)Tobacco user; Translations: [Tobacco use]Onset: EpisodicResidual codes; unclassified (1 source)Acquired absence of both cervix and uterus; Translations: [ACQUIRED ABSENCE BOTH CERVIX AND UTERUS]Onset: 69-69-9376YvhvarscYoayubkz codes; unclassified (1 source)Acquired absence of other specified parts of digestive tract; Translations: [ACQ ABSENCE OTH PART DIGESTV TRACT]Onset: 62-15-3700Polkfwfd Substance-related disorders (1 source)Cannabis use, unspecified, uncomplicated; Translations: [CANNABIS USE UNS UNCOMPLICATED]Onset: 39-26-9629YrbiprrnIslyx infection (1 source)Zoster without complications; Translations: [ZOSTER WITHOUT COMPLICATIONS]Onset: 99-79-2542Uwvfotfc Results Test NameValueInterpretationReference RangeFacilityAmbulatory Visit Summaryon 80-36-3848Zisircjtmb Visit SummaryAmbulatory Visit Summary SAI PINEDA :1970 Visit Date:06/09/2024 [...] Performed Esophagogastroduodenoscopy (02/25/2024), Colonoscopy (05/08/2019), EGD - Esophagogastroduodenoscopy(05/08/2019), CT - Computerized tomography (01/18/2019), Echocardiogram (11/14/2016), [...] 10:20 AM EDT With: Lala Horner Where: [place] [phone] Someone Will Contact You Regarding These Appointments [facility] External Ambulatory Referral, Pulmonology, [facility] pulmonology-see comments, 06/09/24 10:27:00 EDT, COPD with exacerbation Oxygen dependent Former smoker Medications What How Much When Why Instructions Unchanged albuterol (albuterol 0.083% Inh Misty 3 mL) 3 Milliliter Inhalation Every 6 hours as neededfor for wheezing BMI 23.0-23.9, adult Former smoker [...] At bedtime Unchanged omeprazole (omeprazole 20 mg Cap-) See instructions TAKE 1 CAPSULE BY MOUTH EVERY DAY Unchanged ondansetron (ondansetron 8 mg Dis Tab) 1 Tablets By Mouth Every 8 hours as needed for Nausea/Vomiting Unchanged predniSONE (predniSONE 20 mg Tab) 1 Tablets By Mouth As Directed Take three tabs by mouthfor one day, then two tabs for one [...] are no longer receiving (more content not included)...[facility] Medicine Office/Clinic Note on [phone] Medicine Office/Clinic NoteFarobert breck [facility] Medicine Office/Clinic Note HPI Staff Sai is [...] not see her, I will refer to [facility] pulmonology. She declines referral to Dr. Joel. encouraged her to keep her appointment she needs to get establish with a wet suit gluer ELIECER Ordered: [facility] External Ambulatory Referral 2. Insomnia (G47.00: Insomnia, unspecified) pt states in the hospital she was given remeron to help her sleep. will send refill. 3. Former smoker (Z87.891: Personal history of nicotine dependence) continue not smoking Ordered: [facility] External Ambulatory Referral 4. BMI 23.0-23.9, adult (Z68.23: Body mass index [BMI] 23.0-23.9, adult) BMI education given Oxygen dependent (Z99.81: Dependence on supplemental oxygen) pt con 1 Liter nasal cannula Ordered: [facility] External Ambulatory Referral Orders: mirtazapine, 7.5 mg = 1 tab(s), Oral, Once a day (at bedtime), # 30 tab(s), Refills(s) 1, Pharmacy:[facility]/pharmacy #[id number], 169, cm, 06/09/24 10:17:00 EDT, Height/Length [...] History Esophagogastroduodenoscopy (02/25/2024), Colonoscopy (05/08/2019), EGD - Esophagogastroduodenoscopy(05/08/2019), CT - Computerized tomography (01/18/2019), Echocardiogram (11/14/2016), [...] 2.5 mcg/inh inhalation aer (more content not included)...[facility] SystemComment on above:Result Comment: Electronically Signed By: Lala Horner\.br\Date and Time Signed: 06/09/24 10:43 EDTFamily Medicine Office/Clinic Noteon [phone] Medicine Office/Clinic NoteFarobert breck [facility] Medicine Office/Clinic Note HPI Staff Sai is a 53 year old female presenting for TCM TCM: Hospital: [facility] Admission date: 05/29/24 Discharge date: 06/01/24 Symptoms the patient presented with: acute/chronic respiratory failure New medications: Prednisone, levofloxacin, Current concerns: Pt states she is feeling a lot better, does feel weak has been trying to do housework. Pt states her insurance wont cover HH. Pt is on oxygen 1L via nasal cannula. Pt would like Rxfor Zofran would like the dissolving tabs History [...] (Z09: Encounter for follow-up examination after completed treatmentfor conditions other than malignant neoplasm) pt was recently admitted to [facility] for respiratory failure and pneumonia. is feeling much better. is down to 1 liter of O2 via NC. pt states at one pount she was up to 5 liters. some expiratory wheezingnoted on exam. will continue all meds she was given from hospital. RTC 6 weeks just to make sure she is feeling better and no other issues arise. Ordered: E&M of Est. Patient Low 20-29 Min 35952 2. COPD with exacerbation (J44.1: Chronic obstructive pulmonary disease with (acute) exacerbation) pt taking inhalers and oral steroid. see pulmonology on 06/07 Ordered: E&M of Est. Patient Low 20-29 Min 32673 3. Pneumonia (J18.9: Pneumonia, unspecified organism) pt continues taking oral levaquin. she states she has 5 days left Ordered: E&M of Est. Patient Low 20-29 Min 13669 4. BMI 23.0-23.9, adult (Z68.23: Body mass index [BMI] 23.0-23.9, adult) BMI education given Ordered: E&M of Est. Patient Low 20-29 Min 70827 5. Former smoker (Z87.891: Personal history of nicotine dependence) continue not smoking Ordered: E&M of Est. Patient Low 20-29 Min 80113 Orders: ondansetron, 4 mg = 1 tab(s), Oral, q6hr, PRN Nausea/Vomiting, # 30 tab(s), Refills(s) 0, Pharmacy:[facility]/pharmacy #[id number], 169.7, cm, 11/26/23 15:32:00 EDT, Height/Length Dosing, 62.1, kg, 11/26/23 15:32:00 EDT, Weight Dosing ondansetron, 8 mg = 1 tab(s), Oral, q8hr, PRN Nausea/Vomiting, # 20 tab(s), Refills(s) 0, Pharmacy:[facility]/pharmacy #[id number], 169, cm, 06/03/24 10:51:00 EDT, Height/Length Dosing, 66, kg, 06/03/24 10:51:00EDT, Weight Dosing Follow-up No qualifying data available [...] History Esophagogastroduodenoscopy (02/25/2024), Colonoscopy (05/08/2019), EGD - Esophagogastroduodenoscopy(05/08/2019), CT - Computerized tomography (01/18/2019), Echocardiogram (11/14/2016), [...] mg= 1 tab(s), Oral (more content not included)...[facility] SystemComment on above:Result Comment: Electronically Signed By: Lala Horner\.светлана\Date and Time Signed: 06/03/24 11:09 EDTAmbulatory Visit Summaryon 63-46-5639Wreglsnerp Visit SummaryAmbulatory Visit Summary SAI PINEDA :1970 Visit Date:05/12/2024 [...] Performed Esophagogastroduodenoscopy (02/25/2024), Colonoscopy (05/08/2019), EGD - Esophagogastroduodenoscopy(05/08/2019), CT - Computerized tomography (01/18/2019), Echocardiogram (11/14/2016), [...] BMI 23.0-23.9, adult Former smoker Pickup at [facility]/pharmacy #[id number] Changed albuterol (albuterol 0.083% Inh Misty 3 mL) 3 Milliliter Inhalation Every 6 hours Q6H and PRN Changed albuterol (Ventolin HFA 90 mcg/ inh Aerosol) 2 Puffs Inhalation Every 4 hours as needed forfor wheezing Unchanged amitriptyline (Elavil 25 mg Tab) [...] 2 Inhalation Inhalation Every day Pharmacy Information [facility]/pharmacy #[id number]: [address], [place] [phone] Allergies No Known Allergies Problems Ongoing - [...] you for choosing us for your care. [facility] Office/Clinic Noteon [phone] Medicine Office/Clinic NoteFarobert [facility]ck [facility] Medicine Office/Clinic Note HPI Staff Sai is a 53 year old female presenting for TCM follow up TCM: Hospital: [facility] Admission date: 05/05/24 Discharge date: 05/08/24 [...] send in albuterol for nebulizer. all questions answered.RTC 1 month 2. BMI 23.0-23.9, adult (Z68.23: Body mass index [BMI] 23.0-23.9, adult) BMI education given Ordered: albuterol, 2.5 mg, 3 mL, Inhalation, q6hr for wheezing, 60 EA, Refill(s) 1, [facility]/pharmacy #[id number], 169, cm, 05/12/24 10:51:00 EST, Height/Length Dosing, 68, kg, 05/12/24 10:51:00 EST, Weight Dosing 3. Former smoker (Z87.891: Personal history of nicotine dependence) continue not smoking Ordered: albuterol, 2.5 mg, 3 mL, Inhalation, q6hr for wheezing, 60 EA, Refill(s) 1, [id number], cm, 05/12/24 10:51:00 EST, Height/Length Dosing, 68, kg, 05/12/24 10:51:00 EST, Weight Dosing Orders: ondansetron, See Instructions, DISSOLVE 1 TABLET ON THE TONGUE EVERY 8 HOURS NEEDED FOR NAUSEA AND VOMITING, # 24 tab(s), Refills(s) 0, Pharmacy: [facility]/pharmacy #[id number], 169, cm, 02/18/24 11:55:00 EST, Height/Length Dosing, 61.8, kg, 02/18/24 11:55:00 EST, Weight D... promethazine, See Instructions, TAKE 1 TABLET BY MOUTH THREE TIMES A DAY, # 30 tab(s), Refills(s) 1, [id number], cm, 02/18/24 11:55:00 EST, Height/Length Dosing, 61.8, kg, 02/18/24 11:55:00 EST, Weight Dosing promethazine, 25 mg = 1 tab(s), Oral, TID, # 15 tab(s), Refills(s) 0, Pharmacy: [facility]/pharmacy #[id number],169, cm, 01/16/24 10:14:00 EDT, Height/Length Dosing, 63.9, [...] History Esophagogastroduodenoscopy (02/25/2024), Colonoscopy (05/08/2019), EGD - Esophagogastroduodenoscopy(05/08/2019), CT - Computerized tomography (01/18/2019), Echocardiogram (11/14/2016), [...] ACT 2.5 mcg/inh in (more content not included)...Normal [facility] HospitalComment on above:Result Comment: Electronically Signed By: Lala Horner\.br\Date and Time Signed: 05/12/24 11:27 EST Ambulatory Visit Summaryon [id number] Visit SummaryAmbulatory Visit Summary PINEDACARISSA MICHAELA Domo :1970 Visit Date:03/23/2024 Ambulatory Visit Instructions Your [...] Performed Esophagogastroduodenoscopy (02/25/2024), Colonoscopy (05/08/2019), EGD - Esophagogastroduodenoscopy(05/08/2019), CT - Computerized tomography (01/18/2019), Echocardiogram (11/14/2016), [...] Once a day (at bedtime) Nausea and vomitingEpigastric pain Chronic diarrhea History of colon polyps Schatzki's ring Gastropathy Tetrahydrocannabinol (THC) dependence Refills: 5 Pickup at [facility]/pharmacy #[id number] Unchanged albuterol (albuterol 0.083% Inh Misty 3 [...] instructions TAKE 1 TABLET BY MOUTH THREE TIMESA DAY Contact prescribing physician if questions or concerns Unchanged tiotropium (Spiriva Respimat 10 ACT 2.5 mcg/ inh inhalation aerosol) 2 Puffs Inhalation Every day Contact prescribing physician if questions or concerns Unchanged tiotropium (Spiriva Respimat 60 ACT 2 (more content not included)... [facility] Office/Clinic Noteon [id number] Office/Clinic NoteGastroenterology Office/Clinic Note Chief Complaint Nausea, vomiting, abdominal [...] bedtime), # 30 tab(s), Refills(s) 5, [facility]acy: [id number], 169, cm, 03/23/24 13:17:00 EST, Height/Length Dosing, 64.9, kg, 03/23/24 13:17:00 EST, Weight Dosing 2. Epigastric pain (R10.13: Epigastric pain) Ordered: amitriptyline, 25 mg = 1 tab(s), Oral, Once a day (at bedtime), # 30 tab(s), Refills(s) 5, Pharmacy: [id number], 169, cm, 03/23/24 13:17:00 EST, Height/Length Dosing, 64.9, kg, 03/23/24 13:17:00 EST, Weight Dosing 3. Chronic diarrhea (K52.9: Noninfective gastroenteritis and colitis, unspecified) Ordered: amitriptyline, 25 mg = 1 tab(s), Oral, Once a day (at bedtime), # 30 tab(s), Refills(s) 5, [id number] 169, cm, 03/23/24 13:17:00 EST, Height/Length Dosing, 64.9, kg, 03/23/24 13:17:00 EST, Weight Dosing 4. History of colon polyps (Z86.0100: Personal history of colon polyps, unspecified) Ordered: amitriptyline, 25 mg = 1 tab(s), Oral, Once a day (at bedtime), # 30 tab(s), Refills(s) 5, [id number] 169, cm, 03/23/24 13:17:00 EST, Height/Length Dosing, 64.9, kg, 03/23/24 13:17:00 EST, Weight Dosing 5. Schatzki's ring (K22.2: Esophageal obstruction) Ordered: amitriptyline, 25 mg = 1 tab(s), Oral, Once a day (at bedtime), # 30 tab(s), Refills(s) 5, [id number], 169, cm, 03/23/24 13:17:00 EST, Height/Length Dosing, 64.9, kg, 03/23/24 13:17:00 EST, Weight Dosing 6. Gastropathy (K31.9: Disease of stomach and duodenum, unspecified) Ordered: amitriptyline, 25 mg = 1 tab(s), Oral, Once a day (at bedtime), # 30 tab(s), Refills(s) 5, [id number] 169, cm, 03/23/24 13:17:00 EST, Height/Length Dosing, 64.9, kg, 03/23/24 13:17:00 EST, Weight Dosing 7. Tetrahydr (more content not included)...[facility] Comment on above:Result Comment: Electronically Signed By: Butch SANDOVAL, Sandoval Frost\.br\Date and Time Signed: 03/23/2512:45 ESTUrine Cultureon [id number] identified Cx Nom (U)50,000 colonies/ml mixed bacterial skin contaminants including mixed gram negative bacilli - 2 Days PERFORMED BY: [facility] [address] [place] [address] PATHOLOGIST BENCH WORKER BINDING HARRIS CUELLAR M.D.[facility] Physician GroupComment on above: Performed By: #### CUU #### [place] [address] USASurgical Pathology Reporton [id number] [address]- Surgical Pathology Report Collected Date/Time: 02/25/2024 10:41 [...] Entire specimen submitted in one cassette. () [facility] Microscopic Description Microscopic examination performed unless gross only specified. The use of one or more reagents in the above tests is regulated as an analyte specific reagent (ASR). The test or tests are ordered following initial H&E microscopic examination. The Surgical Pathology Report Collected Date/Time: 02/25/2024 10:41 EST Pathologist: Brendon SANDOVAL PhD, [place] Received Date/Time: 02/25/2024 12:53 EST Sandoval Rae MD, MD, Mohamad A. Microscopic Description performance characteristics were determined by the [facility]. They have not been cleared or approved by the US Food and Drug Administration. The FDA has determined that such clearance or approval is not necessary. These tests are used for clinical purposes. They should not be regarded as investigational or for research. Appropriate positive and negative controls are performed and are acceptable. [facility] SystemComment on above:Performed By: #### [id number] #### [facility] [address], [place] [address]Uitp OR Intraoperative Recordon [id number] OR Intraoperative RecordMain OR Intraoperative Record IntraOp Document Type FT Summary Primary Physician: Sandoval Rae MD Finalized Date/Time: 02/27/24 07:51:23 Pt. Name: SAI PINEDA/Sex: 1970 Female Med Rec #: [id number] Physician: Sandoval Rae MD Financial #: [id number] Pt. Type: O Room/Bed: / Admit/Disch: 02/25/24 [...] Sandoval Allen RN, Chucho Calderon Role Performed SOCIAL MEDIA SR STRATEGY MANAGER Surgeon - Primary Motor Express Clerk - Primary Time In 02/25/24 10:32:00 02/25/24 [...] Allen RN, Mouchli MD, Sandoval Frost, Roque CERAMIC WORKER, Luis Manuel Jacob Kirstyn K Time [...] No Outcomes Met? Yes Last Modified By: Tiffany JIM, Chucho Calderon 02/25/24 10:39:40 Post-Care Text: The patient is [...] Feet Uncrossed? Yes Le (more content not included)...[facility] SystemDischarge Instructionson [id number] InstructionsDischarge Instructions SAI PINEDA :1970 Visit Date:02/25/2024 Inpatient [...] History Esophagogastroduodenoscopy (02/25/2024), Colonoscopy (05/08/2019), EGD - Esophagogastroduodenoscopy(05/08/2019), CT - Computerized tomography (01/18/2019), Echocardiogram (11/14/2016), [...] instructions TAKE 1 TABLET BY MOUTH THREE TIMESA DAY Unchanged sucralfate (Carafate 1 gram Tab) [...] caloric intake Vomiting Historical (more content not included)...[facility] Comment on above:Result Comment: Electronically Signed By: Christin Hensley I\.светлана\Date and Time Signed: 02/25/24 11:03 ESTH&P Updateon 02-25-2024H&P Update H&P Update Patient: SAI PINEDA Age: [...] Plan Diagnosis: Nausea, vomiting, and epigastric pain -EGDNBellevue HospitalMain OR PACU II Recordon [id number] OR PACU II RecordMain OR PACU II Record PACU Phase II Document Type FT Summary Primary Physician: Sandoval Rae MD Finalized Date/Time: 02/25/24 11:30:19 Pt. Name: BJ PINEDAHUMPHREY Lobo/Sex: 1970 Female Med Rec #: [id number] Physician: Sandoval Rae MD Financial #: [id number] Pt. Type: O Room/Bed: / Admit/Disch: 02/25/24 [...] and monitors body temperature Evaluates postoperative respiratory statusEvaluates postoperative cardiac status Evaluates postoperative neurological status [...] individualized perioperative plan of care The patient's rightto privacy is maintained The patient's value system, [...] with or improved from baseline levels established preoperativelyThe patient's cardiovascular status is consistent with or improved from baseline levels established preoperatively The patient's neurological status is consistent with or improved from baseline levels established preoperatively The patient demonstrates and/or reports adequate pain control throughout the perioperative period The patient received appropriate medication(s), safely administered during the perioperativeperiod Finalized By: Christin Hensley I Document Signatures Signed By: Christin Hensley I 02/25/24 11:30NoKet[facility] Health [facility]bleMain OR Preoperative Recordon [id number] OR Preoperative RecordMain OR Preoperative Record Holding Area Document Type FT Summary Primary Physician: Sandoval Rae MD Finalized Date/Time: 02/25/24 09:16:52 Pt. Name: PINEDASAI/Sex: 1970 Female Med Rec #: [id number] Physician: Sandoval Rae MD Financial #: [id number] Pt. Type: O Room/Bed: / Admit/Disch: 02/25/24 [...] or her perioperative plan of care The patient'sright to privacy is maintained Surgery Checklist FT [...] Signatures Signed By: Mely Montilla RN 02/25/24 09:16[facility] SystemOperative Reporton [id number] ReportOperative Report Patient: SAI PINEDA Age: 53 years [...] day(s), # 56 tab(s), Refills(s) 0, [id number] 169, cm, 02/21/24 8:47:00 EST, Height/Length Dosing, 62.2, kg, 02/21/24 8:47:00 EST, Weight Dosing Questran 4 g/9 g oral powder: = 1 packet(s), Oral, BID, # 60 EA, Refills(s) 2, [id number], 169, cm, 01/16/24 10:14:00 EDT, Height/Length Dosing, 63.9, kg, 01/16/24 10:14:00 EDT, Weight Dosing Spiriva Respimat 60 ACT 2.5 mcg/inh inhalation aerosol: = 2 inh, Inhalation, Daily, # 4 gm, Refills(s) 11, [id number], 169.7, cm, 11/26/23 15:32:00 EDT, Height/Length Dosing, 62.1, kg, 11/26/23 15:32:00 EDT, Weight Dosing Zofran 4 mg Tab: 4 mg = 1 tab(s), Oral, q8hr, PRN Nausea, # 10 tab(s), Refills(s) 0, [id number], 173, cm, 04/26/20 13:07:00 EST, Height/Length Dosing, 52.8, kg, 04/26/20 13:07:00 EST, Weight Dosing Zofran ODT 4 mg Tab-Dis: 4 mg = 1 tab(s), Oral, TID, # 15 tab(s), Refills(s) 0, [id number], 172, cm, 09/24/23 13:02:00 EDT, Height/Length Dosing, 61.2, kg, 09/24/23 13:02:00 EDT, Weight Dosing Zofran ODT 8 mg Tab-Dis: 8 mg = 1 tab(s), SubLingual, q8hr, PRN Nausea/Vomiting, # 24 tab(s), Refills(s) 0, [id number], 169, cm, 01/16/24 10:14:00 EDT, Height/Length Dosing, 63.9, kg, 01/16/24 10:14:00 EDT, Weight Dosing cloNIDine 0.2 mg Tab: 0.2 mg = 1 tab(s), Oral, Bedtime, # 30 tab(s), Refills(s) 1, [id number], 173, cm, 05/24/20 14:42:00 EST, Height/Length Dosing, 50.1, kg, 05/24/20 14:42:00 EST,Weight Dosing colestipol 1 g Tab: 2 gm = 2 tab(s), Oral, BID, with a full glass of water, # 120 tab(s), Refills(s) 1, [id number], 169, cm, 01/16/24 10:14:00 EDT, Height/Length Dosing, 63.9, kg, 01/16/24 10:14:00 EDT, Weight Dosing hydrOXYzine hydrochloride 50 mg oral tablet: 50 mg = 1 tab(s), Oral, TID, PRN as needed for anxiety, # 30 tab(s), Refills(s) 0, [id number], 173, cm, 04/26/20 13:07:00 EST, Height/Length Dosing, 52.8, kg, 04/26/20 13:07:00 EST, Weight Dosing lamotrigine 25 mg Tab: See Instructions, TAKE 1 TABLET BY MOUTH EVERY DAY IN THE AFTERNOON, # 30 tab(s), Refills(s) 0, Pharmacy: [id number], 169.7, cm, 11/26/23 15:32:00 EDT, Height/Length Dosing, 62.1, kg, 11/26/23 15:32:00 EDT, Weight Dosing mirtazapine 7.5 mg oral tablet: 7.5 mg = 1 tab(s), Oral, Bedtime, # 30 tab(s), Refills(s) 0, [id number], 169.7, cm, 10/03/23 9:38:00 EDT, Height/Length Dosing, 62.5, kg, 10/03/23 9:38:00 EDT, Weight Dosing omeprazole 20 mg Cap-DR: See Instructions, TAKE 1 CAPSULE BY MOUTH EVERY DAY, # 30 cap(s), Refills(s) 0, Pharmacy: [facility] [id number], 169, cm, 02/21/24 8:47:00 EST, Height/Length Dosing, 62.2, kg, 02/21/24 8:47:00 EST, Weight Dosing ondansetron 4 mg Dis Tab: 4 mg = 1 tab(s), Oral, q6hr, PRN Nausea/Vomiting, # 30 tab(s), Refills(s)0, [id number], 169.7, cm, 11/26/23 15:32:00 EDT, Height/Length Dosing, 62.1, kg, 11/26/23 15:32:00 EDT, Weight Dosing ondansetron 8 mg Dis Tab: See Instructions, DISSOLVE 1 TABLET ON THE TONGUE EVERY 8 HOURS NEEDEDFOR NAUSEA AND VOMITING, # 24 tab(s), Refills(s) 0, [id number], 169, cm, 02/17/2411:55:00 EST, Height/Length Dosing, 61.8, kg, 02/18/24 11:55:00 EST, Weight D... promethazine 25 mg Tab: 25 mg = 1 tab(s), Oral, TID, # 15 tab(s), Refills(s) 0, [id number], 169, cm, 01/16/24 10:14:00 EDT, Height/Length Dosing, 63.9, kg, 01/16/24 10:14:00 EDT, Weight Dosing promethazine 25 mg Tab: See Instructions, TAKE 1 TABLET BY MOUTH THREE TIMES A DAY, # 30 tab(s), Refills(s) 1, [id number], 169, cm, 02/18/24 11:55:00 EST, Height/Length Dosing, 61.8, kg, 02/18/24 11:55:00 EST, Weight Dosing Documented Medications Documented Protonix 40 mg Tab-DR: Oral, 0 Refill(s), Refills(s) 0 Spiriva Respimat 10 ACT 2.5 mcg/inh inhalation aerosol: = 2 puff(s), Inhalation, Daily, Refi (more content not included)...[facility] Comment on above:Result Comment: Electronically Signed By: Butch SANDOVAL, Sandoval Frost\.br\Date and Time Signed: 02/24/2410:51 ESTOther Comment: Missing Attachment - attachment storage system not supported [id number] Can be viewed in source systemMissing Attachment - attachment storage system not supported [id number] Can be viewed insource systemMissing Attachment - attachment storage system not supported [id number] Can be viewed in source systemMissing Attachment - attachment storage system not supported [id number] Can be viewed in source systemMissing Attachment - attachment storage system not supported [id number] Can be viewed in source systemMissing Attachment - attachment storage system not supported [id number] Can be viewed in source systemMissing Attachment - attachment storage system not supported [id number] Can be viewed in source systemMissing Attachment - attachment storage system not supported [id number] Can be viewed in source systemMissing Attachment - attachment storage system not supported [id number] Can be viewed in sourcesystemMissing Attachment - attachment storage system not supported [id number] Can be viewed in source systemAmbulatory Visit Summaryon [id number] Visit SummaryAmbulatory Visit Summary SAI PINEDA :1970 Visit Date:02/21/2024 [...] instructions TAKE 1 TABLET BY MOUTH THREE TIMESA DAY Contact prescribing physician if questions or concerns Unchanged tiotropium (Spiriva Respimat 10 ACT 2.5 mcg/ inh inhalation aerosol) 2 Puffs Inhalation Every day Contact prescribing physician if questions or concerns Unchanged tiotropium (Spiriva Respimat 60 ACT 2.5 mcg/ inh inhalation aerosol) (more content not included)...[facility] SystemGastro[facility] Office/Clinic Noteon [id number] Office/Clinic Note Gastroenterology Office/Clinic Note Chief Complaint [...] to discuss capsule. (Had one completed at [id number])- results below Last visit w/ Dr Rae History of Present Illness pt with weight loss, throw up, and diarrhea capsule endoscopy done at [facility] and was found to have stomach [...] sure when and where. Will try to getrecords to decide if we need to repeat [...] clips were successfully placed (MR conditional). 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 There was no bleeding at the end of the maneuver. Exam of the jejunum was otherwise normal. Impression: - Atrophic mucosa. - Jejunal polyp(s). Resected a (more content not included)...[facility] CenterComment on above:Result Comment: Electronically Signed By: Butch SANDOVAL, Sandoval Ortega\Date and Time Signed: 02/20/2409:10 ESTAmbulatory Visit Summaryon [id number] Visit SummaryAmbulatory Visit Summary SAI PINEDA :1970 Visit Date:02/18/2024 [...] Someone Will Contact You Regarding These Appointments [facility] External Ambulatory Referral, Neurology, [place] office, 02/18/24 [...] NAUSEA AND VOMITING Pickup at [facility]/pharmacy #[id number] Unchanged ondansetron (Zofran 4 mg Tab) 1 [...] instructions TAKE 1 TABLET BY MOUTH THREE TIMESA DAY Pickup at [facility]/pharmacy #[id number] Pharmacy Information [facility]/pharmacy #6177: [address], [place] [phone] Allergies No Known Allergies Problems Ongoing - [...] Maternal family history of (more content not included)...[facility] Medicine Office/Clinic Noteon [id number] Medicine Office/Clinic NoteFarobert breck [facility] Medicine Office/Clinic Note Chief Complaint N&V & Diarrhea HPI Staff Sai is a 53 year old female presenting with diarrhea, vomiting. AMILCAR 11/27/23 pt here for the same reason. Sent home with stool sample supplies. Pt did see [facility] 01/16/24 for diarrhea & N&V. Tx'd w/[facility] did order CTE, however pt no showed [...] neuro consult. her mother has dementia. Ordered: [facility] External Ambulatory Referral 2. Maternal family history of dementia (Z81.8: Family history of other mental and behavioral disorders) mother has dementia Ordered: [facility] External Ambulatory Referral 3. Nausea and vomiting [...] then questioned her about the medication that GIprescribed. She says I took it once. and honestly forgot about it. She isn't even sure if she stillhas it. I encouraged her daughter to call [...] 24 tab(s), Refills(s) 0, Pharmacy: [facility]/pharmacy #[id number], 169, cm, 02/18/24 11:55:00 EST, Height/Length Dosing, 61.8, kg, 02/18/24 11:55:00 EST, Weight D... promethazine, See Instructions, TAKE 1 TABLET BY MOUTH THREE TIMES A DAY, # 30 tab(s), Refills(s) 1, Pharmacy: [facility]/pharmacy #[id number], 169, cm, 02/18/24 11:55:00 EST, Height/Length [...] EGD - Esophagogastroduodenoscopy (04/19 (more content not included)...[facility] SystemComment on above:Result Comment: Electronically Signed By: Lala Horner\.br\Date and Time Signed: 02/18/24 13:38 ESTGastroenterology Office/Clinic Noteon 10-31-2024 Gastroenterology Office/Clinic NoteGastroenterology Office/Clinic Note Chief Complaint Episodes of diarrhea, [...] start: Years ago. Had capsule done at [facility] and surgery. Dr Tiffani Morales. Constant? [...] COMPATIBLE WITH REACTIVE GASTROPATHY. Colonoscopy w/ Dr Ketih 04/2019- no op note available Pathological Diagnosis [...] up, and diarrhea capsule endoscopy done at [facility] and was found to have stomach [...] sure when and where. Will try to getrecords to decide if we need to repeat [...] 1 tab(s), Oral, TID, (more content not included)...[facility] SystemComment on above:Result Comment: Electronically Signed By: Butch SANDOVAL, Sandoval Frost\.br\Date and Time Signed: 01/15/2410:34 EDTFamily Medicine Office/Clinic Noteon [id number] Medicine Office/Clinic NoteFarobert breck [facility] Medicine Office/Clinic Note HPI Staff Sai is [...] to get in, will send referral to [facility] 2. Vomiting (R11.10: Vomiting, unspecified) pt is asking for refill on omeprazole 3. Smoker (F17.200: Nicotine dependence, unspecified, uncomplicated) consider not smoking 4. BMI 21.0-21.9, adult (Z68.21: Body mass index [BMI] 21.0-21.9, adult) BMI education given Orders: lamotrigine, See Instructions, TAKE 1 TABLET BY MOUTH EVERY DAY IN THE AFTERNOON, # 30 tab(s), Refills(s) 0, [id number] 169.7, cm, 10/03/23 9:38:00 EDT, Height/Length Dosing, 62.5,kg, 10/03/23 9:38:00 EDT, Weight Dosing lamotrigine, See Instructions, TAKE 1 TABLET EVERY MORNING, # 30 tab(s), Refills(s) 0, [id number], 169.7, cm, 10/03/23 9:38:00 EDT, Height/Length Dosing, 62.5, kg, 10/03/23 9:38:00 EDT, Weight Dosing lamotrigine, See Instructions, TAKE 1 TABLET BY MOUTH EVERY DAY IN THE AFTERNOON, # 30 tab(s), Refills(s) 0, Pharmacy: [facility], 169.7, cm, 11/26/23 15:32:00 EDT, Height/Length Dosing, 62.1, kg, 11/26/23 15:32:00 EDT, Weight Dosing nitrofurantoin, 100 mg = 1 cap(s), Oral, BID, X 7 day(s), # 14 cap(s), Refills(s) 0, [id number], 169.7, cm, 11/26/23 15:32:00 EDT, Height/Length Dosing, 62.1, kg, 11/26/23 15:32:00 EDT, Weight Dosing omeprazole, 20 mg = 1 cap(s), Oral, Daily, # 30 cap(s), Refills(s) 0, [facility],169.7, cm, 10/03/23 9:38:00 EDT, Height/Length Dosing, 62.5, kg, 10/03/23 9:38:00 EDT, Weight Dosing omeprazole, See Instructions, TAKE 1 CAPSULE BY MOUTH EVERY DAY, # 30 cap(s), Refills(s) 0, Pharmacy: [facility], 169.7, cm, 11/26/23 15:32:00 EDT, Height/Length Dosing, 62.1, kg, 11/26/23 15:32:00 EDT, Weight Dosing tiotropium, = 2 inh, Inhalation, Daily, # 4 gm, Refills(s) 11, Pharmacy: [facility]/pharmacy #[id number], 169.7,cm, 11/26/23 15:32:00 EDT, Height/Length Dosing, 62.1, kg, [...] mg= 1 tab(s), Or (more content not included)...[facility] SystemComment on above:Result Comment: Electronically Signed By: Lala Horner\.br\Date and Time Signed: 11/27/23 17:39 EDTAmbulatory Visit Summaryon [id number] Visit SummaryAmbulatory Visit Summary SAI PINEDA :1970 Visit Date:11/26/2023 [...] collect, 11/26/23, Order for future visit, Nurse collect,Diarrhea Vomiting, Print Label By Order Location [facility] [...] needed for Nausea/Vomiting Pickup at [facility]/pharmacy #[id number] Unchanged ondansetron (Zofran 4 mg Tab) 1 [...] Inhalation Every day Pharmacy Information [facility]/pharmacy #[id number]: [address], [place] [phone] Allergies No Known Allergies Problems Ongoing - [...] you for choosing us for your care. [facility] CenterED Note-Physicianon [id number] Note-PhysicianED Note-Physician Basic Information Time Seen: Vj Martinez [...] ED stay. She is overall nontoxic in appearance.She is discharged home with antibiotics, Phenergan and [...] 09/24/23 13:46:00 EDT, 153 mL/hr, Infuse over 20minute(s) Sodium Chloride 0.9% intravenous solution, 1,000 mL, Soln-IV, IV, Once, Stop date 09/24/23 13:02:00EDT, STAT, Start date 09/24/23 13:02:00 EDT, Infuse over 61, minute(s) Basic Metabolic Panel CBC w/ Auto Diff eGFR Hepatic Function Panel Lipase Level UA with Cult Rflx Urine Culture Medications Administered Given morphine 4 mg/mL Inj, 4 mg, IV Push NS 1000 ml Bolus, 1000 mL, IV [id number] [F] 25 mg + Sodium Chloride 0.9% [...] CHANCE SERRANO In 3 days 09/27/[address] [place] [id number] [phone] Business (1) Additional Instructions: Patient Education Urinary [...] made to ensure accuracy, however, inadvertently computerized loan associate mistakes may be present. Appropriate healthcare PPE [...] Underweight due to inadequa (more content not included)...[facility] SystemComment on above:Result Comment: Electronically Signed By: Vj Martinez PA-C\.br\Date and Time Signed: 10/20/2406:39 EDT\.br\Electronically Co-Signed By: José Luis Resendiz DO\.br\Date and Time Co- Signed: 10/21/23 19:15 EDTFamily Medicine Office/Clinic Noteon [id number] Medicine Office/Clinic NoteFailly Medicine Office/Clinic Note HPI Staff Sai is a 52 year old female presenting to [facility] ER 7/9 flu like sxs dxed with UTI MOON: 16 Establish Care: History: anxiety, bipolar, PTSD copd Any previous diagnosis: History of seeing any specialist: psych for mental health When was your last doctors visit: month or so ago Last provider: [facility] Any recent labs: IN ER 7/ Health [...] age 13.0 Years. Previous treatment: Nicotine replacement. Readyto change: No. Household tobacco concerns: Yes., 10/03/2023 Former smoker, quit more than 30 days ago Tobacco Use:., 09/24/2023 Family History Colonic polyp: Father. Immunizations Vaccine Date Status Comments diphtheria/pertussis, acel/tetanus adult 10/11/19 (more content not included)... [facility] SystemComment on above:Result Comment: Electronically Signed By: Lala Horner\.br\Date and Time Signed: 10/03/23 10:12 EDTC Urineon 73-30-2074Mrcqxxaz identified Cx Nom (U)Microbiology PROCEDURE: Urine Culture [R1] SOURCE: U CleanCatch BODY SITE: COLLECTED DATE/TIME: 09/24/2023 13:19 EDT RECEIVED DATE/TIME: 09/24/2023 15:38 EDT START DATE/TIME: 09/24/2023 15:38 EDT FREE TEXT SOURCE: Juan PAIGE, Vj Martinez PA-C, Vj FINAL REPORTS Final Report [] Verified Date/Time: 09/26/2023 09:53 EDT 1,000 cfu/ml Mixed skin contaminants Performing Locations R1: This test was performed at: [facility], [address] [place] [address], [address] , [place], PkomsaNzvsnjBlanchard Valley Health SystemComment on above:Performed By: #### [id number] ####[facility] [address] [place], [place] [address]CHEMISTRYOrdered By: SYSTEM SYSTEM on 67-54-1879Bkyufuk [Mass/Vol]4.9 g/dL Normal3.3 - 5.0 gm/dLRemisol ChemAlbumin/Globulin [Mass ratio]1.8 {ratio}Normal 1.1 - 2.2Remisol ChemALP [Catalytic activity/Vol]76 [iU]/zIbqmii44 - 98 Int._Unit/LRemisol ChemALT No additional P-5'-P [Catalytic activity/Vol]9 [iU]/d Normal6 - 46 Int._Unit/LRemisol ChemAnion gap [Moles/Vol]11 mmol/LNormal6 - 16 mEq/LRemisol ChemAST [Catalytic activity/Vol]14 [iU]/dNormal5 - 43 Int._Unit/L Remisol ChemBilirubin [Mass/Vol]0.5 mg/dLNormal0.0 - 1.1 mg/dLRemisol Chem Bilirubin.direct [Mass/Vol]0.0 mg/dLNormal0.0 - 0.4 mg/dLRemisol Chem Bilirubin.indirect [Mass or moles/Vol]0.5 mg/dLNormal0.1 - 0.9 mg/dLRemisol Chem Calcium [Mass/Vol]9.8 mg/dLNormal8.9 - 11.1 mg/dLRemisol ChemChloride [Moles/Vol]104 mmol/LJctiyr162 - 111 mmol/LRemisol ChemCO2 [Moles/Vol]27 mmol/L Hxsdzx82 - 31 mmol/LRemisol ChemCreatinine [Mass/Vol]1.0 mg/dLNormal0.5 - 1.3 mg/dLRemisol VtfcpTJV61 mL/min/1.73 t6Mleihd>=59mL/min/1.73 u0Eyivqhv Chem Globulin (S) [Mass/Vol]2.8 g/dLNormal1.4 - 4.0 gm/dLRemisol ChemGlucose [Mass/Vol]111 mg/yNTckpcp42 - 199 mg/dLRemisol ChemLipase [Catalytic activity/Vol]9 U/LLow13 - 58 unit/LRemisol ChemPotassium [Moles/Vol]3.6 mmol/L Normal3.5 - 5.3 mmol/LRemisol ChemProtein [Mass/Vol]7.7 g/dLNormal6.0 - 7.8 gm/dLRemisol ChemSodium [Moles/Vol]138 mmol/XTvbqzl732 - 145 mmol/LRemisol Chem Urea nitrogen [Mass/Vol]7 mg/dLNormal5 - 21 mg/dLRemisol ChemUrea nitrogen/Creatinine [Mass ratio]7 mg/mgLow10 - 20Remisol ChemHEMATOLOGYOrdered By: SYSTEM SYSTEM on 30-57-3683Zjcibblfm/100 WBC (Bld)1.3 %Normal0.0 - 2.0 % Remisol HemeBasophils/Leukocytes Auto (Bld) [Pure # fraction]0.1 E9/LNormal0.0 - 0.2 E9/LRemisol HemeEosinophils (Bld) [#/Vol]0.1 E9/LNormal0.0 - 0.5 E9/LRemisol HemeEosinophils/100 WBC (Bld)1.3 %Normal0.0 - 8.0 %Remisol HemeErythrocyte distribution width (RBC) [Ratio]13.1 %Mrcbjz77.9 - 14.2 %Remisol HemeHematocrit (Bld) [Volume fraction]47.1 %High34.0 - 46.0 %Remisol HemeHemoglobin (Bld) [Mass/Vol]15.4 g/bDPuqmka88.0 - 16.0 gm/dLRemisol HemeLymphocytes (Bld) [#/Vol] 2.0 E9/LNormal1.0 - 4.0 E9/LRemisol HemeLymphocytes/100 WBC (Bld)22.6 %Normal 14.0 - 50.0 %Remisol HemeMCH (RBC) [Entitic mass]30.2 loRcejqm28.0 - 34.0 pg Remisol HemeMCHC (RBC) [Mass/Vol]32.7 g/gPDxrago91.4 - 36.0 gm/dLRemisol HemeMCV (RBC) [Entitic vol]92.4 qZYcncpr18.0 - 100.0 fLRemisol HemeMonocytes (Bld) [#/Vol]0.5 E9/LNormal0.2 - 1.0 E9/LRemisol HemeMonocytes/100 WBC (Bld)6.1 % Normal4.0 - 14.0 %Remisol HemeNeutrophils (Bld) [#/Vol]6.1 E9/LNormal2.0 - 7.5 E9/LRemisol HemeNeutrophils/100 WBC (Bld)68.7 %Cxhwhx92.0 - 75.0 %Remisol Heme Platelet mean volume (Bld) [Entitic vol]10.1 fLNormal6.4 - 10.8 fLRemisol Heme Platelets (Bld) [#/Vol]239.0 E9/KQgoann034.0 - 500.0 E9/LRemisol HemeRBC (Bld) [#/Vol]5.1 E12/LNormal4.3 - 5.9 E12/LRemisol HemeWBC corrected for nucl RBC Auto (Bld) [#/Vol]8.9 E9/LNormal4.0 - 11.0 E9/LRemisol HemeURINALYSISOrdered By: SYSTEM SYSTEM on 14-37-0438Ovbsnfwva Ql (U)NegativeNormalNegativemg/dLFTMC UA Auto SSClarity (U)Clear (09/24/23 1:19 PM)NormalClearFTMC UA Auto SSColor (U)Yellow 1 (09/24/23 1:19 PM)NormalYellowFTMC UA Auto SSComment on above:Interpretive Data: Microscopic readings are only performed on those samples that meet specific criteria set forth by [facility].Epithelial cells.squamous Auto (Urine sed) [#/Area]0-2 graded/HPFInvalid Interpretation CodeFTMC UA Auto SSGlucose Ql (U)NegativeNormalNegativemg/dLFTMC UA Auto SS Hemoglobin Auto test strip (U) [Mass/Vol]1+ mg/dLInvalid Interpretation Code Negativemg/dLFTMC UA Auto SSKetones Auto test strip Ql (U)NegativeNormal Negativemg/dLFTMC UA Auto SSLeukocyte esterase Auto test strip Ql (U)250 Peng/uL Peng/uLInvalid Interpretation CodeNegativeLeu/uLFTMC UA Auto SSMucus Auto Ql (U) Trace graded/LPFNormalNegativegraded/LPFFTMC UA Auto SSNitrite Auto test strip Ql (U)NegativeNormalNegativemg/dLFTMC UA Auto SSpH (U)5.5 *NA* (09/24/23 1:19 PM)Invalid Interpretation Code5.0 - 9.0[facility] UA Auto SSProtein Ql (U)NegativeNormalNegativemg/dLBEAVER COUNTY [facility] UA Auto SSRBC Ql (U)4-20 graded/HPFInvalid Interpretation Code0-3graded/HPFMC UA Auto SSSpecific gravity (U) [Rel density]1.015 *NA* (09/24/23 1:19 PM)Invalid Interpretation Code1.005 - 1.030[facility] UA Auto SS Urobilinogen (U) [Mass/Vol]NegativeNormalNegativemg/dLBEAVER COUNTY [facility] UA Auto SSWBC Auto (Urine sed) [#/Area]6-15 graded/HPFInvalid Interpretation Code0-5graded/HPFBEAVER COUNTY [facility] UA Auto SSURINALYSISOrdered By: Vj Martinez on 50-79-4859FA Spec DescClean Catch (09/24/23 1:19 PM)NormalBEAVER COUNTY [facility]OR[facility] UA Auto SS CNPNon 09-50-0685TNACZuncuzcwm (GASTA5) SAI PINEDA ([id number]) 1970 F Date Time Provider Department 05/08/22 TIFFANI MORALES GASTA5 During your visit today, we recorded the following information about you: Eva Chong 05/08/2022 10:45 AM Signed 05/08/22 Patient calling to see if Dr Morales will write her a script for Zofran nausea medication strips. [facility] in [place] [phone] Eva Covarrubias, RN 05/11/2022 10:05 AM Signed [...] Fully Assessed Reason for Visit: Patient Question [8878] Order(s):ondansetron orally disintegrating (ZOFRAN ODT) 8 mg [...] nausea/vomiting. Encounter Status:Closed by TIFFANI MORALES on 05/10/22[facility] HospitalCOPPER, SERUM or PLASMAon 59-56-9835Kippwm, Sbrhg835 ug/mARzsldb26-668 [facility] CenterComhuron valley-sinai hospital on above:Result Comment: Detection Limit = 5 Performed By: #### COPPER #### [facility] [address] [place] [address] Dr. Prince Roper ACID PROFILEon 95-16-0913n-Linolenic Acid C18:3w381 nmol/mL Khaeag56-632ZaxUniversity Hospitals Ahuja Medical CenterComhuron valley-sinai hospital on above:Performed By: #### MMA2 #### [facility] [address] [place] [address] Dr. Prince Couchidic Acid C20:031 nmol/mLNormal8-43[facility] Comment on above:Performed By: #### MMA2 #### [facility] [address] [place] [address] Dr. Prince Couchidojulian Acid, C20:9s3447 nmol/bBEuqfsk239-1855VzdRegency Hospital Cleveland East on above:Performed By: #### MMA2 #### [facility] [address] [address] [address] Prince Castro, C22:6w385 nmol/oMRzfzzz82-608IefRegency Hospital Cleveland East on above:Performed By: #### MMA2 #### [facility] [address] [place] [address] Dr. Prince Brightcosenoic Acid C22:15 nmol/mLNormal1-10ThTrumbull Memorial Hospital Comment on above:Performed By: #### MMA2 #### [facility] [address] [place] [address] Dr. Prince Estrada, C22:5w358 nmol/pAMefqcg26-46WleTrinity Health System West Campusment on above:Performed By: #### MMA2 #### [facility] [address] [address] [address] Prince Estrada, C22:5w618 nmol/mLNormal6-55The [facility] HospitalComment on above:Performed By: #### MMA2 #### [facility] [address] [address] [address] Prince Roe, C22:4w628 nmol/fXEmadtl89-04NemUniversity Hospitals Ahuja Medical CenterComment on above:Performed By: #### MMA2 #### [facility] [address] [address] [address] Prince Zabala Fatty Acid Profile, [facility] Comment on above:Result Comment: Authorized individuals can access the [facility] Enhanced Report using the following link: [email or web address] By: #### MMA2 #### [facility] [address] [address] [address] Prince Garcia, C20:5w390 nmol/mLNormal8-130[facility] on above:Performed By: #### MMA2 #### [facility] [address] [address] [address] Prince Kelly-Linolenic Acid C18:2y1703 nmol/mLCritically rsco39-612JonUniversity Hospitals Ahuja Medical CenterComhuron valley-sinai hospital on above:Performed By: #### MMA2 #### [facility] [address] [address] [address] Prince Gong-Linolenic Acid C20:4h3046 nmol/bFCoyife25-458HhaRegency Hospital Cleveland East on above:Performed By: #### MMA2 #### [facility] [address] [address] [address] Prince OlivasHexadecenoic Acid C16:1w956 nmol/jTSofagy40-61Xvo [facility] HospitalComment on above:Performed By: #### MMA2 #### [facility] [address] [place] [address] Dr. Prince Moise.NormalUniversity Hospitals Ahuja Medical CenterComment on above:Performed By: #### MMA2 #### [facility] [address] [address] [address] Prince Rodriguez, Fatty Acids Profile [facility] Comment on above:Result Comment: Increased concentration of omega-6 gamma- linolenic acid, possibly reflecting dietary artifacts. INTERPRETIVE INFORMATION: Fatty Acids Profile, Essential Ser/Plas This test does not screen for disorders of peroxisomal biogenesis/function. This test was developed and its performance characteristics determined by [employer]. It has not been cleared or approved by the [place] Food and Drug Administration. This test was performed in a CLIA certified laboratory and is intended for clinical purposes.Performed By: #### MMA2 #### [facility] [address] [place] [address] Dr. Prince OlivasLauric Acid C12:012 nmol/mLNormal1-200[facility] Comment on above:Performed By: #### MMA2 #### [facility] [address] [place] [address] Dr. Prince OlivasLinoleic Acid C18:9h02936 nmol/tEMybgts8020-7050HikUniversity Hospitals Ahuja Medical CenterComment on above:Performed By: #### MMA2 #### [facility] [address] [place] [address] Dr. Prince OlivasMead Acid C20:3w929 nmol/mLNormal1-35[facility] Medical CenterComment on above:Performed By: #### MMA2 #### [facility] [address] [place] [address] Dr. Prince OlivasMyristic Acid C14:0178 nmol/cFJvhkls75-119SriUniversity Hospitals Ahuja Medical Center Comment on above:Performed By: #### MMA2 #### [facility] [address] [place] [address] Dr. Prince OlivasNervonic Acid C24:4h7751 nmol/qKOiepdd60-867UoyUniversity Hospitals Ahuja Medical Center Comment on above:Performed By: #### MMA2 #### [facility] [address] [address] [address] Prince OlivasOleic Acid C18:7x20965 nmol/sNIvqurw552-7326StdUniversity Hospitals Ahuja [facility] Center Comment on above:Performed By: #### MMA2 #### [facility] [address] [address] [address] Prince OlivasPalmitic Acid C16:23715 nmol/bZIltwff2441-2669LvbUniversity Hospitals Ahuja Medical CenterComment on above:Performed By: #### MMA2 #### [facility] [address] [address] [address] Prince OlivasPalmitoleic Acid C16:3g5393 nmol/rSQetttf61-694KikUniversity Hospitals Ahuja Medical CenterComment on above:Performed By: #### MMA2 #### [facility] [address] [address] [address] Prince OlivasStearic Acid C18:49289 nmol/mSSceimu560-0015FpwUniversity Hospitals Ahuja Medical Center Comment on above:Performed By: #### MMA2 #### [facility] [address] [address] [address] Prince Bedoya Fatty Acids13.7 mmol/LNormal4.5-15.0[facility] Comment on above:Performed By: #### MMA2 #### [facility] [address] [address] [address] Prince Bedoya Monounsaturated Acid3.6 mmol/LNormal0.9-4.7The [facility] HospitalComment on above:Performed By: #### MMA2 #### [facility] [address] [address] [address] Prince Bedoya Polyunsaturated Acid5.5 mmol/LNormal2.1-6.2[facility] Medical CenterComment on above:Performed By: #### MMA2 #### [facility] [address] [address] [address] Prince Bedoya Saturated Acid4.6 mmol/LNormal1.5-5.3TTrumbull Regional Medical Center Comment on above:Performed By: #### MMA2 #### [facility] [address] [address] [address] Prince Bedoya w30.31 mmol/LNormal0.12-0.55[facility] Medical CenterComment on above:Performed By: #### MMA2 #### [facility] [address] [place] [address] Dr. Prince Bedoya w65.2 mmol/LNormal1.8-5.7ThTrumbull Memorial HospitalComment on above:Performed By: #### MMA2 #### [facility] [address] [place] [address] Dr. Prince Callahan Tetraene Ratio0.058Dhkoeg9.004-0.051[facility] Comment on above:Performed By: #### MMA2 #### [facility] [address] [place] [address] Dr. Prince OlivasVaccenic Acid C18:7z1523 nmol/zQOseplh28-997ZfaUniversity Hospitals Ahuja Medical Center Comment on above:Performed By: #### MMA2 #### [facility] [address] [place] [address] Dr. Prince OlivasVITAMIN Aon 27-52-8839Ospxkaf A54.9 ug/lLYaujpj11.1-62.0[facility] Medical CenterComment on above:Result Comment: Reference intervals for vitamin A determined from [facility] internal studies. Individuals with vitamin A less than 20 ug/dL are considered vitamin A deficient and those with serum concentrations less than 10 ug/dL are considered severely deficient. . This test was developed and its performance characteristics determined by [facility]. It has not been cleared or approved by the Food and Drug Administration.Performed By: #### MMA2 #### [facility] [address] [place] [address] Dr. Prince OlivasVITAMIN Luciano 78-43-9493Sxxdkpp E (Alpha T)9.9 mg/LNormal7.0-25.1 [facility] Medical CenterComment on above:Performed By: #### SELNIUM #### [facility] [address] [place] [address] Dr. Prince OlivasVitamin E (Gamma T)2.1 mg/LNormal0.5-5.5ThTrumbull Memorial Hospital Comment on above:Result Comment: Reference intervals for alpha and gamma- tocopherol determined from National Health and Nutrition Examination Survey, 4459-6554. Individuals with alpha-tocopherol levels less than 5.0 mg/L are considered vitamin E deficient.Performed By: #### SELNIUM #### [facility] [address] [place] [address] Dr. Prince Suazo SERUM OR PLASMAon 23-38-0421Mdgy, Plasma or Serum75 ug/dL Iauqxm71-051Hwz [facility] HospitalComment on above:Result Comment: Detection Limit = 5Performed By: #### LIPID, CMP #### [facility] [address] [place] [address] Dr. Prince Frankelon 13-81-6852HTUSUvcsurpky (GASTA5) SAI PIENDA ([id number]) 1970 F Date Time Provider Department 04/05/22 [...] nausea/vomiting. Encounter Status:Closed by TIFFANI MORALES on 04/05/22NoMercy Health Anderson HospitalMETHYLMALONIC ACID (MMA)on 50-13-0288Utpqxatkxwtll Acid, Fhhsg408 nmol/LCritically high0-378[facility] Medical CenterComment on above:Performed By: #### MMA2 #### [facility] [address] [place] [address] Dr. Prince Baez POSTPROC EVALon 30-92-5351DDUP POSTPROC EVALHNO ID: [id number] Author: Altagracia Salvador MD Service: ? Author [...] Morales MD; Altagracia Salvador MD; [place] Chaves APRN.SOCIAL MEDIA SR STRATEGY MANAGER Responsible Provider: Altagracia Salvador MD Anesthesia [...] with this procedure. Documented by [place] Chaves APRN.SOCIAL MEDIA SR STRATEGY MANAGER 04/04/2022 3:31 PM EST SIGNATURE: Altagracia Salvador MD PATIENT NAME: Sai Pineda DATE: April 04, 2022 TIME: 3:51 PM CSN: [id number] [facility] PRE-OPon 13-91-0604WHCA PRE-OPHNO ID: [id number] Author: Altagracia Salvador MD Service: ? Author Type: Anesthesiologist Type: Anesthesia Preprocedure Evaluation Filed: 04/04/2022 12:56 PM Note Text: ANESTHESIOLOGY DAY OF SURGERY NOTE : 1970 Procedure Information Date/Time: 04/04/22 1300 Scheduled providers: Tiffani Morales MD; Altagracia Salvador MD; [place] Chaves APRN.SOCIAL MEDIA SR STRATEGY MANAGER Procedure: ENTEROSCOPY Location: Gastroenterology Estimated body [...] April 04, 2022 TIME: 12:55 PM CSN: [id number] Clinic ClevelandENTEROSCOPYon 60-13-1643Qqvvjkwch ClinicHISTORY PHYSICALon 95-30-2609FGREOHX PHYSICALHNO ID: [id number] Author: Tiffani Morales MD Service: Gastroenterology Author [...] PATIENT NAME: Sai Pineda DATE: 04/04/2022 TIME: 1302NoMercy Health Anderson HospitalMETHYLMALONIC ACID (MMA)on 04-04-2022 Methylmalonic Acid, Dytys600 nmol/LCritically high0-378[facility] Comment on above:Performed By: #### MMA2 #### [facility] [address] [place] [address] Dr. Prince York 05-12-1978MKHKLID PROGHNO ID: [id number] Author: Eduardo Harrington RN Service: Nursing Author [...] (RECOMMENDATION): None Electronically Signed By: Eduardo Harrington RNEast [facility] Hospital NURSING [facility] ID: [id number] Author: Rima Kirk RN Service: Nursing Author [...] Signed By: Rima Kirk RN In Department: GASTROENTEROLOGYEast Liverpool City HospitalSELENIUM, PLASMAon 04-04-2022 Selenium, Serum/Frhyfk435 ug/RXerzwe08-348Fjg [facility] HospitalComment on above: Performed By: #### SELNIUM #### [facility] [address] [place] [address] Dr. Morrison [facility] PATHOLOGYon 98-55-6139TJJN REPORTNoMercy Health Anderson HospitalComment on above:Order Comment: Specimen Type: TISSUE SPECIMENOrdering Facility: [facility] Address: [address] [place], [place] [address]Result Comment: Surgical Pathology Report Case: [id number] Authorizing Provider: Tiffani Morales MD Collected: 04/04/2022 02:57 PM Ordering Location: Gastroenterology Received: 04/04/2022 05:34 PM Pathologist: Gonzalo Lemons MD Specimen: JEJUNUM BIOPSY, polyp: r/o adenomaPerformed By: #### S ####[facility] LABCLIA [id number] [address] OF PREMIER HEALTHFINAL DIAGNOSISNoMercy Health Anderson Hospital Comment on above:Order Comment: Specimen Type: TISSUE SPECIMENOrdering Facility: [facility] Address: [address] [place] [address] Result Comment: A. Jejunum, polyp, biopsy: - Small intestine with gastric heterotopia. - Negative for dysplasia and malignancy. Performed By: #### S ####[facility] LABCLIA [id number] [place] [address] [place] STATES OF AMERICAFINAL PERFORMING LAB NormalLakehealth Tripoint Medical CenterComment on above:Order Comment: Specimen Type: TISSUE SPECIMENOrdering Facility: [facility] Address: [address] [place], [place] [address]Result Comment: Diagnostic interpretation performed at [facility], [address] [place], [place] [address] CLIA# [id number] Float Nurse: Constantin Quevedo M.D.Performed By: #### S ####[facility] LABIA [id number] [address] STATES OF PREMIER HEALTHGROSS DESCRIPTIONNormalCRegency Hospital Cleveland West Comment on above:Order Comment: Specimen Type: TISSUE SPECIMENOrdering Facility: [facility] Address: [address] [place] [address] Result Comment: A. JEJUNUM BIOPSY Received in formalin is a segment of proctor polypoid tissue measuring 1.2 x 1.0 x 0.4 cm. No stalk is noted. The line of resection is noted. The specimen is bisected and totally submitted in formalin inone cassette. Gross examination performed at [facility], [address] [place] [address] 04/04/2022 10:13 PMPerformed By: #### S ####[facility] LABIA [id number] [place] [address] [place] STATES OF AMERICAFOLATE, RBC AND SERUMon 60-79-1051Rigwnh4.5 ng/mLNormal>3.0[facility] on above:Result Comment: A serum folate concentration of less than 3.1 ng/mL is considered to represent clinical deficiency.Performed By: #### LIPID, CMP #### [facility] [address] [address] [address] Prince OlivasFolate, Wyvoslygld070.0 ng/mLNormalNot Estab.The [facility] HospitalComment on above:Performed By: #### LIPID, CMP #### [facility] [address] [place] [address] Dr. Prince OlivasFolate, LII116 ng/mLNormal>498The [facility] HospitalComment on above:Performed By: #### LIPID, CMP #### [facility] [address] [place] [address] Dr. Prince OlivasHematocrit (Bld) [Volume fraction]41.2 %Hgfduw74.0-46.6The [facility] HospitalComment on above:Performed By: #### LIPID, CMP #### [facility] [address] [place] [address] Dr. Prnice Grace AUTO DIFFon 97-77-3174FSZY #0.1 103/ulNormal0.0-0.1The [facility] HospitalComment on above:Performed By: #### LIPID, CMP #### [facility] [address] [place] [address] Dr. Prince Rojassophils/100 WBC (Bld)0.6 %Normal0.2-2.0[facility] Comment on above:Performed By: #### LIPID, CMP #### [facility] [address] [place] [address] Dr. Prince Roman #0.2 103/ulNormal0.0-0.7The [facility] HospitalComment on above: Performed By: #### LIPID, CMP #### [facility] [address] [place] [address] Dr. Prince Odonnellosinophils/100 WBC (Bld)2.9 %Normal0.9-7.0The [facility] Comment on above:Performed By: #### LIPID, CMP #### [facility] [address] [place] [address] Dr. Prince Odonnellrythrocyte distribution width (RBC) [Ratio]13.2 %Vizbro39.0-15.0 The [facility] HospitalComment on above:Performed By: #### LIPID, CMP #### [facility] [address] [address] [address] Prince OlivasHematocrit (Bld) [Volume fraction]41.1 %Fslhjj67.0-48.0The [facility] HospitalComment on above:Performed By: #### LIPID, CMP #### [facility] [address] [place] [address] Dr. Prince OlivasHemoglobin (Bld) [Mass/Vol]13.6 g/wHMdeiot84.0-16.0The [facility] HospitalComment on above:Performed By: #### LIPID, CMP #### [facility] [address] [place] [address] Dr. Prince Covarrubias #0.04 10e3/ulCritically high0.00-0.03The [facility] Comment on above:Performed By: #### LIPID, CMP #### [facility] [address] [place] [address] Dr. Prince Covarrubias %0.5 %Normal0.0-0.5The The Christ HospitalComment on above: Performed By: #### LIPID, CMP #### [facility] [address] [place] [address] Dr. Prince Bell #2.5 103/ulNormal1.2-3.8The [facility] HospitalComment on above:Performed By: #### LIPID, CMP #### [facility] [address] [place] [address] Dr. Prince Cheryhocytes/100 WBC (Bld)31.5 %Wbngks30.5-60.0The [facility] HospitalComment on above:Performed By: #### LIPID, CMP #### [facility] [address] [place] [address] Dr. Prince FallonUAL DIFF REQNONormalThe [facility] HospitalComment on above: Performed By: #### LIPID, CMP #### [facility] [address] [place] [address] Dr. Prince James (RBC) [Entitic mass]30.5 xdQnswvy46.7-34.0The [facility] HospitalComment on above:Performed By: #### LIPID, CMP #### [facility] [address] [place] [address] Dr. Prince Pinto (RBC) [Mass/Vol]33.1 g/oNToulrf15.9-35.2The [facility] HospitalComment on above:Performed By: #### LIPID, CMP #### [facility] [address] [place] [address] Dr. Prince Pinto (RBC) [Entitic vol]92.2 qTCcsezq26.0-99.0The [facility] HospitalComment on above:Performed By: #### LIPID, CMP #### [facility] [address] [place] [address] Dr. Prince Kee #0.6 103/ulNormal0.3-0.8The [facility] HospitalComment on above:Performed By: #### LIPID, CMP #### [facility] [address] [place] [address] Dr. Prince Dowdocytes/100 WBC (Bld)7.0 %Normal1.7-12.0The [facility] Comment on above:Performed By: #### LIPID, CMP #### [facility] [address] [place] [address] Dr. Prince Mallory #4.5 103/ulNormal1.4-6.5The [facility] HospitalComment on above:Performed By: #### LIPID, CMP #### [facility] [address] [place] [address] Dr. Prince Justinutrophils/100 WBC (Bld)57.5 %Fevazs06.0-75.0The [facility] HospitalComment on above:Performed By: #### LIPID, CMP #### [facility] [address] [place] [address] Dr. Prince Hardenlet mean volume (Bld) [Entitic vol]11.5 fLNormal9.5-13.5The [facility] HospitalComment on above:Performed By: #### LIPID, CMP #### [facility] [address] [place] [address] Dr. Prince DillardT224 103/fuWjiwph483-206Hax [facility] HospitalComment on above: Performed By: #### LIPID, CMP #### [facility] [address] [place] [address] Dr. Prince OlivasRBC4.46 106/ulNormal4.20-5.40The [facility] HospitalComment on above:Performed By: #### LIPID, CMP #### [facility] [address] [place] [address] Dr. Prince OlivasWBC7.9 103/ulNormal4.0-11.0The [facility] HospitalComment on above: Performed By: #### LIPID, CMP #### [facility] [address] [place] [address] Dr. Prince Flores 11-03-8918IZN [Mass/Vol]mg/LNormal<=1.0The [facility] HospitalComment on above:Performed By: #### COPPER #### [facility] [address] [place] [address] Dr. Prince OlivasFERRITINon 89-01-7544Oxzwuoiz [Mass/Vol]99.0 ng/mLNormal8.0-252.0 The [facility] HospitalComment on above:Performed By: #### FERR, VITB12, VITAD, FETIBC #### [facility] [address] [place] [address] Dr. Prince Caldwell AND TIBCon 03-31-2022% DSXUNSOVRF01.3 %NormalThe [facility] Campusment on above:Performed By: #### FERR, VITB12, VITAD, FETIBC #### [facility] [address] [place] [address] Dr. Prince Caldwell [Mass/Vol]90.0 ug/mWJxvosz93.0-170.0The [facility] Comment on above:Performed By: #### FERR, VITB12, VITAD, FETIBC #### [facility] [address] [place] [address] Dr. Prince OlivasTIBOsbaldo SVWMGI072.0 ug/yLWcscvs450.0-450.0The [facility] Comment on above:Performed By: #### FERR, VITB12, VITAD, FETIBC #### [facility] [address] [place] [address] Dr. Prince OlivasMAGNESIUMon 33-41-1386Janrtyivc [Mass/Vol]2.0 mg/dLNormal1.8-2.4 The [facility] HospitalComment on above:Performed By: #### COPPER #### [facility] [address] [place] [address] Dr. Prince OlivasPHOSPHORUSon 45-44-4728Vgmesudzy [Mass/Vol]3.6 mg/dLNormal2.6-4.7 The [facility] HospitalComment on above:Performed By: #### COPPER #### [facility] [address] [place] [address] Dr. Prince OlivasPROF 14(COMP METB)on 69-73-2038Zcxicbx [Mass/Vol]3.9 g/dLNormal 3.4-5.0The [facility] HospitalComment on above:Performed By: #### COPPER #### [facility] [address] [place] [address] Dr. Prince OlivasAlbumin/Globulin [Mass ratio]1.3 {ratio}NormalThe [facility] HospitalComment on above:Performed By: #### COPPER #### [facility] [address] [place] [address] Dr. rPince Lacy [Catalytic activity/Vol]75 U/QZyvhqo04-273Adq [facility] HospitalComment on above:Performed By: #### COPPER #### [facility] [address] [place] [address] Dr. Prince Tompkins [Catalytic activity/Vol]19 U/YXancxa10-40Nrb [facility] HospitalComment on above:Performed By: #### COPPER #### [facility] [address] [place] [address] Dr. Prince Rosas gap [Moles/Vol]11.3 mmol/LNormalThe [facility] Comment on above:Performed By: #### COPPER #### [facility] [address] [address] [address] Prince OlivasAST [Catalytic activity/Vol]19 U/VSkcvvp79-23Eba [facility] HospitalComment on above:Performed By: #### COPPER #### [facility] [address] [address] [address] Prince OlivasBilirubin [Mass/Vol]0.3 mg/dLNormal0.2-1.0The [facility] Comment on above:Performed By: #### COPPER #### [facility] [address] [address] [address] Prince OlivasCalcium [Mass/Vol]9.0 mg/dLNormal8.5-10.1The [facility] Comment on above:Performed By: #### COPPER #### [facility] [address] [address] [address] Prince OlivasChloride [Moles/Vol]105 mmol/SVazskw52-009Xli [facility] Comment on above:Performed By: #### COPPER #### [facility] [address] [address] [address] Prince OlivasCO2 [Moles/Vol]28.9 mmol/YYjczvk34.0-32.0The [facility] Comment on above:Performed By: #### COPPER #### [facility] [address] [address] [address] Prince OlivasCreatinine [Mass/Vol]0.79 mg/dLNormal0.55-1.02The [facility] HospitalComment on above:Performed By: #### COPPER #### [facility] [address] [address] [address] Prince OdonnellGFR-AF ARMENIAN>60Normal>=60The [facility] HospitalComment on above:Performed By: #### COPPER #### [facility] [address] [address] [address] Prince OdonnellGFR-NON AF ARMENIAN>60Normal>=60The [facility] HospitalComment on above:Performed By: #### COPPER #### [facility] [address] [address] [address] Prince OlivasGlobulin (S) [Mass/Vol]3.0 g/dLNormCleveland ClinicComment on above:Performed By: #### COPPER #### [facility] [address] [address] [address] Prince OlivasGlucose [Mass/Vol]91 mg/iQJrlptj58-615TpmUniversity Hospitals Ahuja Medical Center Comment on above:Performed By: #### COPPER #### [facility] [address] [address] [address] Prince OlivasPotassium [Moles/Vol]4.2 mmol/LNormal3.5-5.1The [facility] Comment on above:Performed By: #### COPPER #### [facility] [address] [address] [address] Prince OlivasProtein [Mass/Vol]6.9 g/dLNormal6.4-8.2The [facility] Comment on above:Performed By: #### COPPER #### [facility] [address] [address] [address] Prince OlivasSodium [Moles/Vol]141 mmol/SBhenzz211-434Rfb [facility] Comment on above:Performed By: #### COPPER #### [facility] [address] [place] [address] Dr. Prince OlivasUrea nitrogen [Mass/Vol]10.0 mg/dLNormal7.0-18.0The [facility] HospitalComment on above:Performed By: #### COPPER #### [facility] [address] [place] [address] Dr. Prince Tabor nitrogen/Creatinine [Mass ratio]12.7 mg/mgNoalThTrumbull Memorial HospitalComment on above:Performed By: #### COPPER #### [facility] [address] [address] [address] Prince OlivasPROTIMEon 43-83-3886GJO Coag (PPP) [Relative time]0.94 {INR} NormalThe [facility] HospitalComment on above:Performed By: #### MMA2 #### [facility] [address] [place] [address] Dr. Prince Shepard GUIDELINESSEKvng [facility]aconess HospitalComment on above:Result Comment: DESIRED INR: 2.0 - 3.0 CONDITIONS NOT LISTED BELOW 2.5 - 3.5 FOR PROSTHETIC HEART VALVE REPLACEMENT 2.5 - 3.5 RECURRENT THROMBOSIS Performed By: #### MMA2 #### [facility] [address] [place] [address] Dr. Prince OlivasPT Coag (PPP) [Time]10.0 sNormal9.0-11.6ThTrumbull Memorial Hospital Comment on above:Performed By: #### MMA2 #### [facility] [address] [place] [address] Dr. Prince OlivasTRIGLYCERIDEon 92-51-7022Lknwlqguomhf [Mass/Vol]103 mg/dLNormal <=150The [facility] HospitalComment on above:Performed By: #### COPPER #### [facility] [address] [place] [address] Dr. Prince OlivasVITAMIN B12on 63-27-8470Xblxynkwj (Vitamin B12) [Mass/Vol]259.0 pg/lADivawz795.0-986.0The [facility] HospitalComment on above:Performed By: #### FERR, VITB12, VITAD, FETIBC #### [facility] [address] [place] [address] Dr. Prince OlivasVITAMIN D 25 OHon 05-72-6809JNJ D 25-OH49.0 ng/mLNormalRegency Hospital Cleveland East on above:Performed By: #### FERR, VITB12, VITAD, FETIBC #### [facility] [address] [place] [address] Dr. Prince Jean RANGESSEKvng [facility] HospitalComhuron [facility] on above: Result Comment: <20 ng/mL Vit D deficient 20 - <30 ng/mL Vit D insufficient 30 - 100 ng/mL Vit D sufficient >100 ng/mL Potential ToxicityPerformed By: #### FERR, VITB12, VITAD, FETIBC #### [facility] [address] [place] [address] Dr. Prince Grace AUTO DIFFon 49-56-0003MJWG #0.1 103/ulNormal0.0-0.1The [facility] HospitalComment on above:Performed By: #### SELNIUM #### [facility] [address] [place] [address] Dr. Prince OlivasBasophils/100 WBC (Bld)0.6 %Normal0.2-2.0The [facility] Comment on above:Performed By: #### SELNIUM #### [facility] [address] [place] [address] Dr. Prince Roman #0.2 103/ulNormal0.0-0.7The [facility] HospitalComment on above: Performed By: #### SELNIUM #### [facility] [address] [place] [address] Dr. Prince Odonnellosinophils/100 WBC (Bld)2.4 %Normal0.9-7.0The [facility] Comment on above:Performed By: #### SELNIUM #### [facility] [address] [place] [address] Dr. Prince Odonnellrythrocyte distribution width (RBC) [Ratio]13.2 %Zktana80.0-15.0 The [facility] HospitalComment on above:Performed By: #### SELNIUM #### [facility] [address] [place] [address] Dr. Prince OlivasHematocrit (Bld) [Volume fraction]44.3 %Jimwre40.0-48.0[facility]huja Medical CenterComment on above:Performed By: #### SELNIUM #### [facility] [address] [place] [address] Dr. Prince OlivasHemoglobin (Bld) [Mass/Vol]13.8 g/eEYnkjzi48.0-16.0The [facility] HospitalComment on above:Performed By: #### SELNIUM #### [facility] [address] [place] [address] Dr. Prince Covarrubias #0.02 10e3/ulNormal0.00-0.03The [facility] HospitalComment on above:Performed By: #### SELVETOUM #### [facility] [address] [place] [address] Dr. Prince Covarrubias %0.2 %Normal0.0-0.5The [facility] HospitalComment on above: Performed By: #### SELVETOUM #### [facility] [address] [place] [address] Dr. Prince Bell #3.1 103/ulNormal1.2-3.8The [facility] HospitalComment on above:Performed By: #### SELVETOUM #### [facility] [address] [place] [address] Dr. Prince Cheryhocytes/100 WBC (Bld)34.8 %Ciqyge84.5-60.0The [facility] HospitalComment on above:Performed By: #### BUCK #### [facility] [address] [place] [address] Dr. [address]on[address] [facility] DIFF REQNONormalThe [facility] HospitalComment on above: Performed By: #### BUCK #### [facility] [address] [place] [address] Dr. Prince James (RBC) [Entitic mass]30.5 gmUheajy18.7-34.0The [facility] HospitalComment on above:Performed By: #### DARIOUM #### [facility] [address] [place] [address] Dr. Prince Pinto (RBC) [Mass/Vol]31.2 g/tLPcuicr62.9-35.2The [facility] HospitalComment on above:Performed By: #### SELNIUM #### [facility] [address] [place] [address] Dr. Prince Pinto (RBC) [Entitic vol]98.0 bDOadvch73.0-99.0The [facility] HospitalComment on above:Performed By: #### SELNIUM #### [facility] [address] [place] [address] Dr. Prince Kee #0.5 103/ulNormal0.3-0.8The [facility] HospitalComment on above:Performed By: #### SELNIUM #### [facility] [address] [place] [address] Dr. Prince Dowdocytes/100 WBC (Bld)6.0 %Normal1.7-12.0The [facility] Comment on above:Performed By: #### SELNIUM #### [facility] [address] [place] [address] Dr. Prince JustinUT #5.0 103/ulNormal1.4-6.5The [facility] HospitalComment on above:Performed By: #### SELNIUM #### [facility] [address] [place] [address] Dr. Prince Justinutrophils/100 WBC (Bld)56.0 %Kjigcz24.0-75.0The [facility] HospitalComment on above:Performed By: #### SELNIUM #### [facility] [address] [place] [address] Dr. Prince Hardenlet mean volume (Bld) [Entitic vol]11.5 fLNormal9.5-13.5The [facility] HospitalComment on above:Performed By: #### SELNIUM #### [facility] [address] [place] [address] Dr. Prince OlivasPLT221 103/axMbaahv530-695Yjz [facility] HospitalComment on above: Performed By: #### SELNIUM #### [facility] [address] [place] [address] Dr. Prince OlivasRBC4.52 106/ulNormal4.20-5.40The [facility] HospitalComment on above:Performed By: #### SELNIUM #### [facility] [address] [place] [address] Dr. Prince OlivasWBC8.9 103/ulNormal4.0-11.0The [facility] HospitalComment on above: Performed By: #### SELNIUM #### [facility] [address] [place] [address] Dr. Prince Severino 92-54-1051MTCHLmvkwohxt (GASTPR) SAI PINEDA Domo ([id number]) 1970 F Date Time Provider Department 03/28/22 EDUARDO HARRINGTON GASTRIC During your visit today, we recorded the following information about you: Eduardo Harrington RN 03/28/2022 3:52 PM Signed Attempted to reach the patient at the contact number that they provided [phone] (home) . Unable to speak with patient so without identifying the patient the following information was left on their voice mail: Date of procedure, location and report time A message was left informing the patient/patient technical sales representatives they must have a responsible adult accompany [...] Number to call with questions or concerns [phone] Number to call to cancel their procedure [phone] Eduardo Harrington RN Allergies As of Date: 03/28/2022 (No Known Allergies) Date Reviewed: 01/01/2022 Reviewed by: Juan Carlos Saucedo LPN - Fully Assessed Reason for Visit: Appointment Confirmation [[id number]] Prescriptions as of 03/28/2022 - prochlorperazine (COMPAZINE) [...] 03/02/2022 Encounter Status:Closed by EDUARDO HARRINGTON on [facility]/28/22[facility] 14(COMP METB)on 98-41-7405Ncrehif [Mass/Vol]4.2 g/dLNormal3.4-5.0 The [facility] HospitalComment on above:Performed By: #### LIPID, CMP #### [facility] [address] [place] [address] Dr. Prince OlivasAlbumin/Globulin [Mass ratio]1.4 {ratio}NormalThe [facility] Campusment on above:Performed By: #### LIPID, CMP #### [facility] [address] [place] [address] Dr. Prince Lacy [Catalytic activity/Vol]86 U/FRmlcfo15-569Ngl [facility] Campusment on above:Performed By: #### LIPID, CMP #### [facility] [address] [address] [address] Prince QuesadaT [Catalytic activity/Vol]13 U/LCritically zxp17-03Kdv [facility] HospitalComment on above:Performed By: #### LIPID, CMP #### [facility] [address] [address] [address] Prince OlivasAnion gap [Moles/Vol]9.7 mmol/LNormalThe [facility] HospitalComment on above:Performed By: #### LIPID, CMP #### [facility] [address] [address] [address] Prince OlivasAST [Catalytic activity/Vol]15 U/BZqrfuh31-25Vno [facility] HospitalComment on above:Performed By: #### LIPID, CMP #### [facility] [address] [address] [address] Prince OlivasBilirubin [Mass/Vol]0.2 mg/dLNormal0.2-1.0The [facility] Comment on above:Performed By: #### LIPID, CMP #### [facility] [address] [address] [address] Prince OlivasCalcium [Mass/Vol]9.2 mg/dLNormal8.5-10.1The [facility] Comment on above:Performed By: #### LIPID, CMP #### [facility] [address] [address] [address] Prince OlivasChloride [Moles/Vol]102 mmol/ARfhdua05-472Ujz [facility] Comment on above:Performed By: #### LIPID, CMP #### [facility] [address] [address] [address] Prince OlivasCO2 [Moles/Vol]28.9 mmol/JCfnvgw55.0-32.0The [facility] Comment on above:Performed By: #### LIPID, CMP #### [facility] [address] [address] [address] Prince OlivasCreatinine [Mass/Vol]0.81 mg/dLNormal0.55-1.02The [facility] HospitalComment on above:Performed By: #### LIPID, CMP #### [facility] [address] [address] [address] Prince OdonnellGFR-AF ARMENIAN>60Normal>=60The [facility] HospitalComment on above:Performed By: #### LIPID, CMP #### [facility] [address] [address] [address] Prince OdonnellGFR-NON AF ARMENIAN>60Normal>=60The [facility] HospitalComment on above:Performed By: #### LIPID, CMP #### [facility] [address] [address] [address] Prince OlivasGlobulin (S) [Mass/Vol]3.1 g/dLNormalThe [facility] HospitalComment on above:Performed By: #### LIPID, CMP #### [facility] [address] [address] [address] Prince OlivasGlucose [Mass/Vol]74 mg/aDUlslcf85-932LydUniversity Hospitals Ahuja [facility] Center Comment on above:Performed By: #### LIPID, CMP #### [facility] [address] [address] [address] Prince OlivasPotassium [Moles/Vol]4.1 mmol/LNormal3.5-5.1[facility] Comment on above:Performed By: #### LIPID, CMP #### [facility] [address] [address] [address] Prince OlivasProtein [Mass/Vol]7.3 g/dLNormal6.4-8.2[facility] Comment on above:Performed By: #### LIPID, CMP #### [facility] [address] [address] [address] Prince OlivasSodium [Moles/Vol]138 mmol/VVmnqvv219-560VimUniversity Hospitals Ahuja Medical Center Comment on above:Performed By: #### LIPID, CMP #### [facility] [address] [address] [address] Prince OlivasUrea nitrogen [Mass/Vol]11.0 mg/dLNormal7.0-18.0The [facility] HospitalComment on above:Performed By: #### LIPID, CMP #### [facility] [address] [address] [address] Prince OlivasUrea nitrogen/Creatinine [Mass ratio]13.6 mg/mgNormalThe [facility] HospitalComment on above:Performed By: #### LIPID, CMP #### [facility] [address] [address] [address] Prince HdzHoleif 53-68-9492MML4.948 uIU/mLNormal0.358-3.740The [facility] HospitalComment on above:Performed By: #### LIPID, CMP #### [facility] [address] [place] [address] Dr. Prince GrandaT B12 AND FOLATEon 04-32-0082Barvcfwkz (Vitamin B12) [Mass/Vol] 260.0 pg/iMBaveow774.0-986.0The [facility] HospitalComment on above:Performed By: #### COPPER #### [facility] [address] [place] [address] Dr. Prince OlivasFOLATE7.90 ng/mLCritically low8.60-58.90The [facility] Comment on above:Performed By: #### COPPER #### [facility] [address] [place] [address] Dr. Prince OlivasNM GASTRIC EMPTYING SOLIDon 41-36-9363GI GASTRIC EMPTYING SOLID* * *Final Report* * * DATE OF EXAM: Feb 05 2022 12:26PM [facility] 0017 - NM GASTRIC EMPTYING [...] rate of gastric emptying of solid meal. Supplier Diversity Director: FAN Transcribe Date/Time: Feb 05 2022 1:36P Dictated by : SHER RODRIGUEZ MD This examination was interpreted and the report reviewed and electronically signed by: RENATO PATEL MD on Feb 05 2022 2:03PM EST [id number] Health System [facility] [id number] Telephone (GAPRA3) SAI PINEDA ([id number]) 1970 F Date Time Provider Department 01/05/22 [...] 10/24/2012 Encounter Status:Closed by TIFFANI MORALES on 01/05/22[facility] HospitalCa [id number] (GASTMN) SAI PINEDA ([id number]) 1970 F Date Time Provider Department 01/03/22 ANASTASIYA MOSQUEDA During your visit today, we recorded the following information about you: Anastasiya Mosqueda PA-C 01/03/2022 10:19 AM Signed EGD results discussed with patient as requested, pathology still pending. Will reach out to patient once resulted. Red flags for in person care discussed. GRECIA Castorena [facility] [place]/05/2022 10:02 AM Signed Patient requests return call [phone] Elizabeth Jean Barbara [facility] [place]erg[place] As of Date: 01/03/2022 (No Known [...] daily. Encounter Status:Closed by ANASTASIYA MOSQUEDA on 01/03/22[facility] [id number] (DDQ) SAI PINEDA ([id number]) 1970 F Date Time Provider Department 01/02/22 ANASTASIYA MOSQUEDA DDQ During your visit today, we recorded the following information about you: Leydi Mendiola 01/02/2022 8:52 AM Signed Patient called to get results from her procedure. Please contact her at number listed in system. Thanks Leydi Dumontadehomero Allergies As of Date: 01/02/2022 (No Known [...] 10/24/2012 Encounter Status:Closed by LEYDI HUIZAR on 01/02/22[facility] POSTPROC EVALon [id number] POSTPROC EVALHNO ID: [id number] Author: Sher Hudson MD Service: ? Author [...] Sher Hudson MD PATIENT NAME: Sai Pineda Grimes DATE: January 01, 2022 TIME: 5:13 PM CSN: [id number] Health [facility] PRE-OPon 64-91-8618UJNA PRE-OPHNO ID: [id number] Author: Sher Hudson MD Service: ? Author Type: Anesthesiologist Type: Anesthesia Preprocedure Evaluation Filed: 01/01/2022 3:42 PM Note Text: ANESTHESIOLOGY DAY OF SURGERY NOTE : 1970 Procedure Information Date/Time: 01/01/22 1600 Scheduled providers: Tiffani Morales MD; Sher Hudsno MD; Kirsten Dalton APRN.SOCIAL [employer] SR STRATEGY MANAGER Procedure: EGD DIAGNOSTIC Location: Gastroenterology Estimated [...] January 01, 2022 TIME: 3:42 PM CSN: [id number] [facility] ClevelandEGD DIAGNOSTICon 56-99-7679Pegtlbwfq ClinicHISTORY PHYSICALon 79-48-7729OONFIJX PHYSICALHNO ID: [id number] Author: Tiffani Morales MD Service: Gastroenterology Author [...] PATIENT NAME: Sai Freedovern DATE: 01/01/2022 TIME: [address] [place] [address] [facility] [id number] PROG HNO ID: [id number] Author: Juan Carlos Saucedo LPN Service: ? [...] Instructions REFERRAL (RECOMMENDATION): None Electronically Signed By: EDWARD MichaelormalLakehealth [facility] NURSING [facility] ID: [id number] Author: Rima Coleman RN Service: ? Author [...] Signed By: Rima Coleman RN In Department: GASTROENTEROLOGYNoOhioHealth Grove City [facility] HospitalRGICAL PATHOLOGYon 01-01-2022 CASE REPORTNoGalion Hospital on above:Order Comment: Specimen Type: TISSUE SPECIMENOrdering Facility: [facility] Address: [address] [place], [place] [address] Comment: Surgical Pathology Report Case: [id number] Authorizing Provider: Tiffani Morales MD Collected: 01/01/2022 04:13 PM Ordering Location: Gastroenterology Received: 01/01/2022 08:38 PM Pathologist: Jyotsna Cartwright MD Specimens: A) - DUODENUM BIOPSY, r/o celiac B) - STOMACH BIOPSY, r/o h. pylori C) - STOMACH (GASTRIC) POLYP BIOPSY, r/o adenomaPerformed By: #### S ####[facility] [id number] [place] [address] UNITED STATES OF AMERICADIAGNOSIS COMMENTNoGalion Hospital on above:Order Comment: Specimen Type: TISSUE SPECIMENOrdering Facility: [facility] Address: [address] [place] [id number] Comment: A. Adenovirus stain is negative for viral inclusions. Dr Valorie Jaimes has reviewed thispart of the case and concurs. Laboratory Developed Test (LDT) Disclaimer: Performance characteristics of immunohistochemical, immunofluorescent and chromogenic in-situ hybridization tests have been determined by the performing laboratory within [facility]???s [facility] Laboratory Medicine [place] [facility], [facility] or [facility]) in a manner consistent with CLIA requirements. One or more of these tests have not been cleared or approved by the FDA. [facility] is regulated under CLIA as qualified to perform high-complexity testing. These tests are used for clinical purposes. They should not be regarded as investigational or for research. Positive and negative controls stain appropriately.Performed By: #### S ####[facility] LABCLIA [id number] [address] DIAGNOSISEast Liverpool City HospitalComment on above:Order Comment: Specimen Type: TISSUE SPECIMENOrdering Facility: [facility] Address: [address] [place], [place] [address] Comment: A. Duodenum, biopsy: - Incidental and minute tubular adenoma, negative for high grade dysplasia. See comment. - Duodenal mucosa with no diagnostic alterations. B. Stomach, biopsy: - Oxyntic and antral mucosa with no diagnostic alteration. - No morphologic evidence of H. Pylori microorganisms. C. Stomach, polypectomy: - Hyperplastic polyp. Performed By: #### S ####[facility] LABCLIA [id number] [address]FINMD PERFORMING LAB NormalLakehealth Tripoint Medical CenterComhuron valley-[facility] on above:Order Comment: Specimen Type: TISSUE SPECIMENOrdering Facility: [facility] Address: [address] [place] [address]Result Comment: Diagnostic interpretation performed at [facility], [address] [place], [place] [id number] CLIA# [id number] Float Nurse: Constantin Quevedo M.D.Performed By: #### S ####[facility] LABCLIA [id number] [address] DESCRIPTIONEast [facility] City Hospital Comment on above:Order Comment: Specimen Type: TISSUE SPECIMENOrdering Facility: [facility] Address: [address] [place] [address] [place] [address] Result Comment: A. DUODENUM BIOPSY Received in formalin are multiple pieces [...] in one cassette. Gross examination performed at [facility], [address] [place] [address]., [place] [id number] TTN 01/02/2022 12:06 AMPerformed By: #### S ####[facility] LABCLIA [id number] [facility]ENTERDESK [id number] [place], [place] [id number] [facility]OSPITALUpper GI endoscopyon 56-34-3352Lxttw GI qomycsvulW09 Gastrointestinal Endoscopy Patient Name: Sai Guerrero Procedure Date: 01/01/2022 3:37 PM Date of : 1970 Admit Type: Outpatient Age: 51 Room: A3 [facility] 3 Gender: Female Note Status: Finalized Attending [...] the patient. Procedure Code(s): --- Professional --- 69648, Esophagogastroduodenoscopy, flexible, transoral; with biopsy, single or [...] in this report are preliminary and upon medical insurance coder review may be revised to meet current compliance requirements. Attending Participation: I personally performed the entire procedure. Scope In: 4:09:57 PM Scope Out: 4:21:34 PM MD Tiffani Camargo MD 01/01/2022 4:34:18 PM This report has been signed electronically by Tiffani Morales MD Number of Addenda: 0 Note Initiated On: 01/01/2022 3:37 PMNormalUniversity Hospitals Portage Medical CenterPNon [id number] (GAPRA3) SAI WELLS ([id number]) 1970 F Date Time Provider Department 12/28/21 JOSE ROBERTO VYAS During your visit today, we recorded the following information about you: Jose Roberto Vyas RN 12/28/2021 9:55 AM Signed GI Pre-Procedure Spoke with patient: Yes Confirmed date scheduled and patient report time: Yes Procedure Planned:Esophagogastroduodenoscopy(EGD) with or without biopies based on clinical findings, removal of polyps or lesions Is the patient on blood thinners?no Procedure Instructions given to patient: Yes, and they verbalized their understanding of instructions given Patient instructed to take prescribed preparation prior to procedure:Yes, and they verbalized their understanding of instructions given Patient instructed to have family/friend present for procedure transport home:Patient/patient technical sales representatives was told that if they do not [...] area. Any barriers to Patient learning: Patient/Patient [employer] Draftsman responded appropriately on phone. Type of instruction [...] Encounter Status:Closed by JOSE ROBERTO VYAS on 12/28/21[facility] [id number] (GAPRA3) SAI WELLS ([id number]) 1970 F Date Time Provider Department 12/25/21 [...] 10/24/2012 Encounter Status:Closed by RIMA GERARD on 12/25/21NoPremier Health [facility] CenterPNon [id number] (GAPRA3) SAI WELLS ([id number]) 1970 F Date Time Provider Department 12/18/21 BHUPINDER CARREON GAPRA3 During your visit today, we recorded the following information about you: Bhupinder Carreon MA 12/18/2021 10:51 AM Signed Attempted to reach the patient at the contact number that they provided [phone] (home) . Unable to speak with patient [...] 10/24/2012 Encounter Status:Closed by BHUPINDER CARREON on 12/18/21[facility] [id number] (GASTMN) FATUMA GUERREROSAI Domo ([id number]) 1970 F Date Time Provider Department 12/13/21 ANASTASIYA MOSQUEDA GASTRI During your visit today, we recorded the following information about you: [facility] 12/13/2021 11:20 AM Signed Received a call from patient's health agency concerning virtual visit set up with you today at 11 - Patient has not registered for [employer] (having trouble accessing her email) AND they want to know if you will do a phone visit instead Was told this was an urgent request from the referring doctor's office - the visit was scheduled thru the Referring Physician office There are no records found for this patient AND I attempted to pull records thru Care Everywhere Patient's phone [phone] Elizabeth Jimenez [facility] [place] Jimenez [facility] 12/13/2021 12:33 PM Signed Spoke to patient's daughter - she will contact the [email or web address] support line to assist with setting up patient's Mychart AND assist with set up for virtual visit tomorrow morning [facility] 12/14/2021 12:34 PM Signed Patient phoned again unable to connect with you via [employer] Okay to schedule phone visit tomorrow? [phone] Elizabeth Jimenez [facility] Elizabeth Jimenez [facility] 12/14/2021 1:32 PM Signed Patient scheduled for phone visit Dec 15 at 11 am - patient instructed not to screen her calls at the time of the visit AND to answer her phone Elizabeth Chisholm Elizabeth Jimenez [facility] 12/15/2021 11:46 AM Addendum Patient called the office stating you did not phone her for her 11 am appt today- she confirmed the phone number on file it help desk associate checked the patient in as arrived you should be able to call her back without rescheduling the time [phone] Elizabeth Ted Jimenez [facility] Allergies As of Date: 12/13/2021 (No Known [...] 10/24/2012 Encounter Status:Closed by ELIZABETH RODRIGUEZ on 12/13/21[facility] [id number] peptide B (Bld) [Mass/Vol]134.0 pg/mLNormal<=900.0The [facility] HospitalComment on above:Performed By: #### MMA2 #### [facility] [address] [address] [address] Prince Grace AUTO DIFFon 83-60-2098ZXBG #0.0 103/ulNormal0.0-0.1The [facility] HospitalComment on above:Performed By: #### LIPID, CMP #### [facility] [address] [address] [address] Prince OlivasBasophils/100 WBC (Bld)0.4 %Normal0.2-2.0The [facility] Comment on above:Performed By: #### LIPID, CMP #### [facility] [address] [address] [address] Prince Roman #0.0 103/ulNormal0.0-0.7The [facility] HospitalComment on above: Performed By: #### LIPID, CMP #### [facility] [address] [address] [address] Prince Odonnellosinophils/100 WBC (Bld)0.3 %Critically low0.9-7.0The [facility] HospitalComment on above:Performed By: #### LIPID, CMP #### [facility] [address] [address] [address] Prince Odonnellrythrocyte distribution width (RBC) [Ratio]13.1 %Qfityu55.0-15.0 The [facility] HospitalComment on above:Performed By: #### LIPID, CMP #### [facility] [address] [address] [address] Prince OlivasHematocrit (Bld) [Volume fraction]45.9 %Hplpdf97.0-48.0The [facility] HospitalComment on above:Performed By: #### LIPID, CMP #### [facility] [address] [place] [address] Dr. Prince OlivasHemoglobin (Bld) [Mass/Vol]15.3 g/iHAftcxb54.0-16.0The [facility] HospitalComment on above:Performed By: #### LIPID, CMP #### [facility] [address] [place] [address] Dr. Prince Covarrubias #0.04 10e3/ulCritically high0.00-0.03The [facility] Comment on above:Performed By: #### LIPID, CMP #### [facility] [address] [place] [address] Dr. Prince Covarrubias %0.4 %Normal0.0-0.5The [facility] HospitalComment on above: Performed By: #### LIPID, CMP #### [facility] [address] [place] [address] Dr. Prince Bell #1.9 103/ulNormal1.2-3.8The [facility] HospitalComment on above:Performed By: #### LIPID, CMP #### [facility] [address] [place] [address] Dr. Prince Cheryhocytes/100 WBC (Bld)17.0 %Critically low20.5-60.0The [facility] HospitalComment on above:Performed By: #### LIPID, CMP #### [facility] [address] [place] [address] Dr. Prince FallonUAL DIFF REQNONormalThe [facility] HospitalComment on above: Performed By: #### LIPID, CMP #### [facility] [address] [place] [address] Dr. Prince James (RBC) [Entitic mass]31.4 fvUvehvj68.7-34.0The [facility] HospitalComment on above:Performed By: #### LIPID, CMP #### [facility] [address] [place] [address] Dr. Prince Pinto (RBC) [Mass/Vol]33.3 g/bLSkhetw24.9-35.2The [facility] HospitalComment on above:Performed By: #### LIPID, CMP #### [facility] [address] [place] [address] Dr. Prince Pinto (RBC) [Entitic vol]94.3 gELhbevu57.0-99.0The [facility] HospitalComment on above:Performed By: #### LIPID, CMP #### [facility] [address] [place] [address] Dr. Prince Kee #0.6 103/ulNormal0.3-0.8The [facility] HospitalComment on above:Performed By: #### LIPID, CMP #### [facility] [address] [place] [address] Dr. Prince Dowdocytes/100 WBC (Bld)5.6 %Normal1.7-12.0The [facility] Comment on above:Performed By: #### LIPID, CMP #### [facility] [address] [place] [address] Dr. Prince Mallory #8.3 103/ulCritically high1.4-6.5The [facility] Comment on above:Performed By: #### LIPID, CMP #### [facility] [address] [place] [address] Dr. Prince Justinutrophils/100 WBC (Bld)76.3 %Critically high43.0-75.0The [facility] HospitalComment on above:Performed By: #### LIPID, CMP #### [facility] [address] [place] [address] Dr. Prince Hardenlet mean volume (Bld) [Entitic vol]12.1 fLNormal9.5-13.5The [facility] HospitalComment on above:Performed By: #### LIPID, CMP #### [facility] [address] [place] [address] Dr. Prince OlivasPLT204 103/ygXqzyum238-914Eye [facility] HospitalComment on above: Performed By: #### LIPID, CMP #### [facility] [address] [place] [address] Dr. Prince OlivasRBC4.87 106/ulNormal4.20-5.40The [facility] Campusment on above:Performed By: #### LIPID, CMP #### [facility] [address] [place] [address] Dr. Prince OlivasWBC10.9 103/ulNormal4.0-11.0The [facility] HospitalComment on above:Performed By: #### LIPID, CMP #### [facility] [address] [place] [address] Dr. Pricne OlivasLACTATE/LACTIC ACIDon 17-32-9518Wbbsbem [Moles/Vol]1.9 mmol/L Normal0.4-1.9The [facility] on above:Performed By: #### SELNIUM #### [facility] [address] [place] [address] Dr. Prince OlivasLIPASEon 29-24-9979Cttunr [Catalytic activity/Vol]49.0 U/L Critically low73.0-393.0The [facility] Campusment on above:Performed By: #### MMA2 #### [facility] [address] [place] [address] Dr. Prince OlivasPROF 14(COMP METB)on 41-34-5989Plhkvij [Mass/Vol]4.5 g/dLNormal 3.4-5.0The [facility] Campusment on above:Performed By: #### MMA2 #### [facility] [address] [place] [address] Dr. Prince OlivasAlbumin/Globulin [Mass ratio]1.7 {ratio}NormalThe [facility] HospitalComhuron valley-[facility] hospital on above:Performed By: #### MMA2 #### [facility] [address] [place] [address] Dr. Prince OlivasALP [Catalytic activity/Vol]83 U/IXuekmu65-557Fcb [facility] on above:Performed By: #### MMA2 #### [facility] [address] [address] [address] Prince QuesadaT [Catalytic activity/Vol]19 U/ZCdtuzg78-87Htm [facility] HospitalComment on above:Performed By: #### MMA2 #### [facility] [address] [place] [address] Dr. Prince OlivasAnion gap [Moles/Vol]15.8 mmol/LNormalUniversity [facility]als [facility] Comment on above:Performed By: #### MMA2 #### [facility] [address] [address] [address] Prince OlivasAST [Catalytic activity/Vol]15 U/LUfgnqg54-14Dez [facility] HospitalComment on above:Performed By: #### MMA2 #### [facility] [address] [place] [address] Dr. Prince OlivasBilirubin [Mass/Vol]0.6 mg/dLNormal0.2-1.0[facility] Comment on above:Performed By: #### MMA2 #### [facility] [address] [place] [address] Dr. Prince OlivasCalcium [Mass/Vol]9.3 mg/dLNormal8.5-10.1[facility] Comment on above:Performed By: #### MMA2 #### [facility] [address] [place] [address] Dr. Prince OlivasChloride [Moles/Vol]103 mmol/YFpnehr91-776Teq [facility] Comment on above:Performed By: #### MMA2 #### [facility] [address] [place] [address] Dr. Prince OlivasCO2 [Moles/Vol]25.9 mmol/LDlxith50.0-32.0The [facility] Comment on above:Performed By: #### MMA2 #### [facility] [address] [place] [address] Dr. Prince OlivasCreatinine [Mass/Vol]0.97 mg/dLNormal0.55-1.02The [facility] HospitalComment on above:Performed By: #### MMA2 #### [facility] [address] [address] [address] Prince OdonnellGFR-AF ARMENIAN>60Normal>=60The [facility] HospitalComment on above:Performed By: #### MMA2 #### [facility] [address] [address] [address] Prince OdonnellGFR-NON AF ARMENIAN>60Normal>=60The [facility] HospitalComment on above:Performed By: #### MMA2 #### [facility] [address] [address] [address] Prince OlivasGlobulin (S) [Mass/Vol]2.7 g/dLNormalThe [facility] HospitalComment on above:Performed By: #### MMA2 #### [facility] [address] [place] [address] Dr. Prince OlivasGlucose [Mass/Vol]107 mg/dLCritically nhdd12-653Obx [facility] HospitalComment on above:Performed By: #### MMA2 #### [facility] [address] [place] [address] Dr. Prince OlivasPotassium [Moles/Vol]3.7 mmol/LNormal3.5-5.1The [facility] Comment on above:Performed By: #### MMA2 #### [facility] [address] [place] [address] Dr. Prince OlivasProtein [Mass/Vol]7.2 g/dLNormal6.4-8.2[facility] Comment on above:Performed By: #### MMA2 #### [facility] [address] [place] [address] Dr. Prince OlivasSodium [Moles/Vol]141 mmol/VYuwwsx494-976Ada [facility] Comment on above:Performed By: #### MMA2 #### [facility] [address] [place] [address] Dr. Prince OlivasUrea nitrogen [Mass/Vol]11.0 mg/dLNormal7.0-18.0The [facility] HospitalComment on above:Performed By: #### MMA2 #### [facility] [address] [place] [address] Dr. Prince OlivasUrea nitrogen/Creatinine [Mass ratio]11.3 mg/mgNoSt. Vincent HospitalComment on above:Performed By: #### MMA2 #### [facility] [address] [address] [address] Prince Barth, HIGH SENSITIVITYon 23-26-5135LTIUWT8.5 pg/mLNormal 4.0-51.3The [facility] HospitalComment on above:Result Comment: CUT-OFF POINTS HAVE BEEN ESTABLISHED BASED ON THE FOURTH UNIVERSAL DEFINITIONS OF MYOCARDIAL INFARCTION. THE UPPER REFERENCE LIMIT (URL) OF TROPONIN, DEFINED THE 99TH PERCENTILE OF cTnI DISTRIBUTION IN A REFERENCE POPULATION, HAS BEEN CONFIRMED THE DECISION THRESHOLD FOR RI DIAGNOSIS.Performed By: #### MMA2 #### [facility] [address] [place] [address] Dr. Prince OlivasXR CHEST 1 Von 81-78-0678KT CHEST 1 VEXAMINATION: XR CHEST 1 V HISTORY: CHEST PAIN, UNSPECIFIED , [...] Electronically authenticated by: BRITNI HARRISON Date: 2021-12-11 15:20[facility] Healthcare SystemCoding Summary.on 91-16-5404Tgrmpu Summary. CD:[id number]+PGhlYWQ+KG9KRNToC72ltLYcmF3QH8kWCY8PKLGMFOYTTF5VCB5ia QK8FOkdL0DmsvIz [file] cHNl (more content not included)...NormalSt. Francis HospitalAmylaseon 62-14-6039Ucxshcv [Catalytic activity/Vol]32 U/XAjfdlt98-595SjmlzpSt. Francis HospitalComment on above:Performed By: #### [id number], 7555422, 9426641, 4816956, 4424493, 1929560, 6286639 #### [facility] [address] [place] [address]Lmlu Diffon 51-96-6266Uinlqzmhd/100 WBC (Bld)0.6 %Normal0.0-2.0 St[facility] HospitalComment on above:Order Comment: Order Added by Discern Expert.Performed By: #### [id number], 6129211, 3594772, 5914674, 2377647, 0750593, 6700872 #### [facility] [address] [place] [address]Ovbcdbwae/Leukocytes Auto (Bld) [Pure # fraction]0.1 E9/LNormal 0.0-0.2FSt. Anthony's HospitalComment on above:Order Comment: Order Added by Discern Expert.Performed By: #### [id number], 6842604, 4777024, 6340573, 2045363, 3676885, 7373572 #### [facility] [address] [place] [address]37[address]Pdjjwbyjggw/100 WBC (Bld)0.1 %Normal0.0-8.0St. Francis HospitalComment on above:Order Comment: Order Added by Discern Expert.Performed By: #### [id number], 5904094, 9425068, 3569565, 4069308, 1467838, 8668370 #### [facility] [address] [place] [address]Slwzzeuxlxi/Leukocytes Auto (Bld) [Pure # fraction]0.0 E9/L Normal0.0-0.5FSt. Anthony's HospitalComment on above:Order Comment: Order Added by Discern Expert.Performed By: #### [id number], 6700196, 8032897, 2642824, 4886016, 7935670, 2600211 #### [facility] [address] [place] [address] 139[address]Mbpkebdbxfg/100 WBC (Bld)16.1 %Fcsljs61.0-50.0St. Francis HospitalComment on above:Order Comment: Order Added by Discern Expert. Performed By: #### [id number], 9671334, 3440064, 4488279, 3149347, 7917564, 7741042 #### [facility] [address] [place] [address] 43366Xfdhknrubei/Leukocytes Auto (Bld) [Pure # fraction]1.5 E9/L Normal1.0-4.0St. Francis HospitalComment on above:Order Comment: Order Added by Discern Expert.Performed By: #### [id number], 0542958, 2144425, 4294617, 3726540, 3690120, 1520125 #### [facility] [address] [place] [address]Cfyvifxrz/100 WBC (Bld)4.6 %Normal4.0-14.0St. Francis HospitalComment on above:Order Comment: Order Added by Discern Expert.Performed By: #### [id number], 3489533, 5971148, 4058996, 7893512, 4471852, 1849849 #### [facility] [address] [place] [address] 48631Ollzwyppm/Leukocytes Auto (Bld) [Pure # fraction]0.4 E9/LNormal 0.2-1.0St. Francis HospitalComment on above:Order Comment: Order Added by Discern Expert.Performed By: #### [id number], 8752623, 3236681, 6752077, 8967945, 7351134, 5781570 #### [facility] [address] [place] [address] 01786Ldilyglunkf/100 WBC (Bld)78.6 %High36.0-75.0St. Francis HospitalComment on above:Order Comment: Order Added by Discern Expert. Performed By: #### [id number], 0892756, 9166862, 8729330, 5534691, 1646549, 6895625 #### [facility] [address] [place] [address] 42075Egsfuabmfzb/Leukocytes Auto (Bld) [Pure # fraction]7.6 E9/LHigh 2.0-7.5FSt. Anthony's HospitalComment on above:Order Comment: Order Added by Discern Expert.Performed By: #### [id number], 2346705, 8916341, 0881826, 1701253, 9363968, 9590867 #### [facility] [address], [place] [address]YNCay 99-64-9445Fynzqtmkxk [Mass/Vol]1.1 mg/dLNormal0.5-1.3 [facility] HospitalComment on above:Performed By: #### 63759853, 8705924, 9801015, 0084517, 8380023, 6137305, 8919149 #### [facility] [address], [place] [address]Dsew nitrogen [Mass/Vol]21 mg/dLNormal5-21St. Francis HospitalComment on above:Performed By: #### 26463919, 7179152, 7469902, 8712492, 8430298, 1996964, 3570915 #### [facility] [address], [place] [address]Ctiv nitrogen/Creatinine [Mass ratio]19 No TrjdoDqqohi10-76 St[address] [facility] HospitalComment on above:Performed By: #### 53736391, 3999149, 9548073, 2803244, 5123307, 5256485, 6382217 #### [facility] [address], [place] [address]Elgrn gap [Moles/Vol]22 mmol/LHigh6-16St. [facility] HospitalComment on above:Performed By: #### 38561632, 1588243, 7367208, 8422440, 9536939, 4229932, 3186377 #### [facility] [address], [place] [address]Albrzar [Mass/Vol]9.8 mg/dLNormal8.9-11.1FSt. Anthony's HospitalComment on above:Performed By: #### 10187558, 1442077, 5954144, 3347905, 5124170, 3684097, 8087891 #### [facility] [address], [place] [address]Gxexcdxq [Moles/Vol]96 mmol/XZdl539-554VfngmwSt. Francis HospitalComment on above:Performed By: #### 56449209, 2896414, 5773208, 8120934, 2514980, 5495890, 6041224 #### [facility] [address] [place] [address] 525[address]UZ0 [Moles/Vol]19 mmol/ASuq29-70RryvwfSt. Francis Hospital Comment on above:Performed By: #### 87444694, 3446737, 1188518, 4151334, 1140840, 0591181, 8653911 #### [facility] [address] [place] [address] 37289Nsfeidi [Mass/Vol]64 mg/xCPrrqzo08-505CkugigSt. Francis HospitalComment on above:Result Comment: If this glucose result represents a fasting glucose, interpretation should refer tothe following reference range: 55-99 mg/dLPerformed By: #### [id number], 5824818, 1709335, 0375294, 4257426, 0519187, 2642733 #### [facility] [address] [place] [address]1937Fqcrclwzj [Moles/Vol]4.3 mmol/LNormal3.5-5.3[facility] Hospital Of BaltimoreComment on above:Performed By: #### [id number], 5346844, 8602233, 3779247, 1641859, 3819581, 6246890 #### [facility] [address] [place] [address] 29600Nvbmij [Moles/Vol]133 mmol/TPzi669-581MrqcgdSt. Francis HospitalComment on above:Performed By: #### 96016752, 3855524, 4985220, 0496939, 6064640, 1479475, 6055948 #### [facility] [address] [place] [address] [place] [address]SLH w/ Auto Diffon 63-90-3972Hhlywlletsl distribution width (RBC) [Ratio]13.5 %Tpfscg80.9-14.2FSt. Anthony's HospitalComment on above: Performed By: #### 81013626, 8978589, 3962463, 2763700, 4175912, 7397322, 0126614 #### [facility] [address], [place] [address]Wfvylpiloy (Bld) [Volume fraction]51.0 %High34.0-46.0St. Francis HospitalComment on above:Performed By: #### 13901239, 9988225, 8670403, 5195475, 9343118, 0943462, 5692653 #### [facility] [address], [place] [address]Gmfhypfpgm (Bld) [Mass/Vol]16.8 g/nVSwes39.0-16.0St. Francis HospitalComment on above:Performed By: #### 58998749, 5872300, 2205195, 4876746, 1686681, 1167648, 8310646 #### [facility] [address], [place] [address]SYT (RBC) [Entitic mass]30.9 kcUybiol45.0-34.0St. Francis HospitalComment on above:Performed By: #### 77164876, 8274947, 3648424, 6071074, 3470019, 3389858, 2923634 #### [facility] [address], [place] [address]MCPF (RBC) [Mass/Vol]32.9 g/kJElmwxk69.4-36.0St. Francis HospitalComment on above:Performed By: #### 24631355, 5859175, 6320294, 1913451, 5515301, 2775102, 5991837 #### [facility] [address], [place] [address]QSU (RBC) [Entitic vol]94.0 hPDqhewl66.0-100.0St. Francis HospitalComment on above:Performed By: #### 86768056, 2109267, 4390896, 9930644, 8983626, 2613000, 5855480 #### [facility] [address], [place] [address]Hzbaxytz mean volume (Bld) [Entitic vol]9.8 fLNormal6.4-10.8 St[facility] Francis HospitalComment on above:Performed By: #### 09965041, 2346418, 2342266, 3019754, 7344532, 3404363, 2836164 #### [facility] [address] [place] [address]Hhezmnqim (Bld) [#/Vol]212.0 E9/MOraflm848.0-500.0St. Francis HospitalComment on above:Performed By: #### 57451862, 9612986, 3428913, 0993642, 2146606, 2855958, 7582075 #### [facility] [address] [place] [address]ODR (Bld) [#/Vol]5.4 E12/LNormal4.3-5.9St. Francis HospitalComment on above:Performed By: #### 44281462, 8840138, 0276563, 9482386, 2316334, 0649318, 8529462 #### [facility] [address] [place] [address]NYH corrected for nucl RBC Auto (Bld) [#/Vol]9.6 E9/LNormal 4.0-11.0St. Francis HospitalComment on above:Performed By: #### 06897935, 6584045, 2394412, 0750112, 5886005, 6540194, 1519039 #### [facility] [address], [place] [address]Vzjlxhp for Treatmenton 77-09-1582Lzszrnf for Treatment [id number]:127[facility] SystemDischarge Instructionson 38-59-2895Rowgscbny Instructions [id number]#1.00CD:127[facility] Clinical Summaryon 41-76-2103VG Clinical Summary [place] [id number] ED Clinical Summary Person Information Name: SAI PINEDA Loretta/[facility] Age: 51 Years : 1970 Sex: Female Language: Maltese PCP: CRISTINA IQBAL CNP Marital Status: MRN: Visit Id: Visit Reason: Nausea; Abdominal pain; YSORO-IHCBU-ETKX BREATHING Speciality: Acuity: 3 Enc Type: Emergency [...] 13:54:54 12/03/2021 13:54:54 12/03/2021 13:54:54 ADDRESS: [address] [place] [phone] PHYS DOC NOTES: MEDICAL INFORMATION: Prescriptions Given: New Medications [id number], [address], [place] [id number], [phone] promethazine (Phenergan 25 mg Supp) 1 Suppositories By rectum every 6 hours as needed as needed fornausea. Insert one per rectum every six hours as needed for nausea and vomiting. Refills: 0. promethazine (promethazine 25 mg Tab) 1 Tablets By Mouth every 4 hours. Refills: 0. Medications to Continue Taking That Have Changed [id number], [address], [place] [id number], [phone] START: pantoprazole (Protonix 40 mg Tab-DR) 1 [...] day. PATIENT EDUCATION INFORMATION: Instructions: Gastritis, Adult, Uiae-zk-Quon; Abdominal Pain, Adult Follow up: With: Address: When: CRISTINA IQBAL [address], [place] [phone] Business (1) In 3 days 12/06/2021 DIAGNOSIS: 1:Upper abdominal pain; 2:Gastritis; 3:AnxietyNormalFisher [facility]inai Hospital Of [facility] ED Note-Physicianon [id number] Note-PhysicianBasic Information Time Seen: Vipin Pina MD 12/03/2021 10:38 Chief Complaint Abdomial pain, nausea and vomitng x2 weeks. Anxious. Unable to keep xanax down per pt. 15 lb weightloss in 2 weeks History of Present Illness [...] on a daily basis. Patient states that shedid vomit the Xanax this morning when she tried to take it for her anxiety. Patient states has beensince at least several days since her last bowel movement. She denies any dysuria. Patient states she has had a significant weight loss over the past year. Patient has had a previous appendectomy andcholecystectomy and hysterectomy. Patient is a former alcoholic [...] oriented skin is warm and dry color ispink on room air. Oral mucosa does appear [...] symptoms are closely related to her anxiety. Thefact that she could not keep her Xanax down today may have been an element of the exacerbation. Patient is currently taking Protonix. We can consider using the Phenergan suppositories as a substitutefor the Zofran if it is not effective. [...] Stop date 12/03/21 11:05:00 EDT, STAT, Start date12/03/21 11:05:00 EDT, 12/03/21 11:05:00 EDT pantoprazole, 40 mg = 1 tab(s), Oral, Daily, # 30 tab(s), Refills(s) 0, Pharmacy: [facility] #[id number], 172.9, cm, 12/03/21 10:15:00 EDT, Height/Length Dosing, 46.2, kg, 12/03/21 10:15:00 EDT, Weight Dosing promethazine, 25 mg = 1 tab(s), Oral, q4hr, # 12 tab(s), Refills(s) 0, Pharmacy: [facility]/pharm[facility] #[id number], 172.9, cm, 12/03/21 10:15:00 EDT, Height/Length Dosing, 46.2, kg, 12/03/21 10:15:00 EDT, Weight Dosing promethazine, 25 mg = 1 supp, Rectal, q6hr, PRN as needed for nausea, Insert one per rectum every six hours as needed for nausea and vomiting, # 6 EA, Refills(s) 0, Pharmacy: [facility]/pharm[facility] #[id number], 172.9, cm, 12/03/21 10:15:00 EDT, Height/Length Dosing, 46.2, kg, 11/16... promethazine, 12.5 mg = 0.5 mL, Injection, IV Push, Once, Stop date 12/03/21 11:05:00 EDT, STAT, Start date 12/03/21 11:05:00 EDT, 12/03/21 11:05:00 EDT Sodium Chloride 0.9% intravenous solution, 1,000 mL, Soln-IV, IV, Once, Stop date 12/03/21 11:05:00EDT, STAT, Start date 12/03/21 11:05:00 EDT, mL/hr, [...] mg/mL IV Misty, 20 mg, IV Push [id number] [F], 1000 mL, IV promethazine 25 mg/mL [...] In 3 days 12/06/2021 EDT [address] [place] [address] [phone] Business (1) Additional Instructions: Patient Ed (more content not included)...[facility] Comment on above:Result Comment: Electronically Signed By: Chitra SANDOVAL, Vipin\.br\Date and Time Signed: 12/03/21 13:50 EDTED Patient Education Noteon 60-25-6056UX Patient Education NoteGastroenterology Gastritis, Adult Gastritis is swelling (inflammation) of [...] these instructions at home: Medicines ? Take aejn-huw-lceojsk and prescription medicines only as told by your doctor. ? If you were prescribed an antibiotic medicine, take it as told by your doctor. Do not stop takingit even if you start to feel better. [...] help, your stomach can bleed, and you canget sores (ulcers). ? This condition is diagnosed [...] 08/20/2008 Document Revised: 07/22/2018 Document Reviewed: 07/22/2018 [employer] Patient Education ? 2020 [employer] Abdominal Pain, Adult Pain in the [...] these instructions at home: Medicines ? Take krgf-kal-fbmtlsw and prescription medicines only as told by [...] ? You are cons (more content not included)...[facility] Patient Summaryon [id number] Patient Summary [place] [id number] Patient Discharge Instructions Person Information Name: SAI PINEDA Age: 51 Years Arrival Date: 12/03/2021 09:55:45 Discharge Diagnosis: 1:Upper abdominal pain; 2:Gastritis; 3:Anxiety Primary Care Physician: CRISTINA IQBAL CNP Provider Information Primary Provider: Vipin Pina MD Advanced 911 Dispatcher:None The exam and treatment you received in the Emergency Department were for an urgent problem and are not intended as complete care. It is important that you follow up with a doctor, nurse practitioner,or physician?s residential assistant for ongoing care. If your symptoms [...] With: Address: When: CRISTINA IQBAL [address], [place] [phone] Business (1) In 3 days 12/06/2021 In the event that this physician does not participate in your insurance network, please consult with your insurance company to find a nearby participating provider. Patient Education Materials: Gastritis, Adult, Lirs-bq-Eibu; Abdominal Pain, Adult A MESSAGE TO ALL PATIENTS REGARDING OPIOIDS PRESCRIPTION OPIOIDS: WHAT YOU NEED TO KNOW Prescription opioids can be used to help relieve rftlqaee-eq-nhfhou pain and are often prescribed following a [...] and have fewer risks and side effects. Optionsmay include: ? Pain relievers such as acetaminophen, [...] unused prescription opioids: Find your community drug take- back program or [employer] mail-back program, or flush them down the toilet, following guidance from the Food and Drug Administration (www.fda.gov/Drugs/ResourcesForYou). ? Visit www.cdc.gov/drugoverdose to learn about the risks of opioids abuse and overdose. ? If you believe you may be struggling with addiction, tell your health director long term care and ask for guidance or call [facility]? (more content not included)... NormalSt. Francis HospitalHep Func Panelon 67-96-6072Imkvsfs [Mass/Vol] 5.3 g/dLHigh3.3-5.0St. Francis HospitalComment on above:Performed By: #### 43435999, 1030939, 4904059, 9442133, 3869453, 7189501, 6993478 #### [facility] [address], [place] [address]Kjkkvfj/Globulin (S) [Mass conc ratio]1.0Gcxzki0.1-2.2FSt. Anthony's HospitalComment on above:Performed By: #### 08015246, 7775276, 7440085, 0264707, 2018903, 5835667, 7150503 #### [facility] [address], [place] [address]MHU [Catalytic activity/Vol]79 Int._Unit/YTyjtdh29-33CpldajSt. Francis HospitalComment on above:Performed By: #### 68532578, 4852354, 6650985, 1150822, 3149970, 6155645, 2458623 #### [facility] [address], [place] [address]KSV No additional P-5'-P [Catalytic activity/Vol]14 Int._Unit/L Normal6-46St. Francis HospitalComment on above:Performed By: #### 03965939, 8154427, 1136763, 7059488, 5380156, 5510043, 4549537 #### [facility] [address] [place] [address]TZJ [Catalytic activity/Vol]21 Int._Unit/LNormal5-43St. Francis HospitalComment on above:Performed By: #### 95677953, 6194066, 7684210, 9572204, 2239379, 4629960, 0110011 #### [facility] [address] [place] [address]Twlthygub [Mass/Vol]1.2 mg/dLHigh0.0-1.1FSt. Anthony's HospitalComment on above:Performed By: #### 51411348, 8001481, 1405844, 7600490, 2951659, 8606921, 6054497 #### [facility] [address] [place] [address]Ccpmoihag.direct [Mass/Vol]0.2 mg/dLNormal0.1-0.4FSt. Anthony's HospitalComment on above:Performed By: #### 98596496, 3217146, 1737328, 4086768, 7696721, 7754520, 9350044 #### [facility] [address] [place] [address]Yegduinmm.indirect [Mass or moles/Vol]1.0 mg/dLHigh0.1-0.9 St[facility] HospitalComment on above:Performed By: #### 99223609, 4384928, 1934498, 3648399, 8328103, 3078110, 9036148 #### [facility] [address] [place] [address]Vzomdrdb (S) [Mass/Vol]3.0 g/dLNormal1.4-4.0St. Francis HospitalComment on above:Performed By: #### 03682578, 6442571, 3745606, 0251748, 6365659, 0899353, 2445603 #### [facility] [address], [place] [address]Zxpbbhk [Mass/Vol]8.3 g/dLHigh6.0-7.8St. Francis HospitalComment on above:Performed By: #### 35006551, 4481889, 7979051, 7150778, 7327662, 6081110, 8453534 #### [facility] [address], [place] [address]Fuxfzu Levelon 18-77-0582Ggkgkj [Catalytic activity/Vol]21 U/L Feohsf21-52DcpzlySt. Francis HospitalComment on above:Performed By: #### 30926005, 1000518, 3794919, 4560989, 4793736, 2539280, 8930333 #### [facility] [address], [place] [address]gQSVhj 37-19-7625WNB/1.73 sq M.predicted among blacks MDRD (S/P/Bld) [Vol rate/Area]mL/min/{1.73_m2}Normal>=59[facility] Comment on above:Order Comment: Order added by Discern Expert.Result Comment: eGFR is race adjusted. AA=.Performed By: #### 20583062, 4530374, 3875499, 9603289, 6243131, 3131534, 7622110 #### [facility] [address], [place] [address]UOY/1.73 sq M.predicted among non-blacks MDRD (S/P/Bld) [Vol rate/Area]52 mL/min/1.73 m2Low>=59St. Francis HospitalComment on above: Order Comment: Order added by Discern Expert.Result Comment: Chronic kidney disease could be indicated at eGFR's of less than 60 mL/min/1.73m2. Kidney failure is indicated at less than 15 mL/min/1.73m2.Performed By: #### 77174551, 2027097, 4894057, 4230462, 3468797, 6721354, 8395085 #### [facility] [address] [place], [place] [address]ERQYCQC SIMA ADMITon 80-38-4194YZ [Catalytic activity/Vol]72 U/GSpddqj86-957Wyj [facility] HospitalComment on above:Performed By: #### SELNIUM #### [facility] [address] [place] [address] [address] Prince Amador.MB [Mass/Vol]1.28 ng/mLNormal<=3.60The [facility] Comment on above:Performed By: #### SELNIUM #### [facility] [address] [place] [address] [address] Prince RodriguezTROP5.4 pg/mLNormal4.0-51.3The [facility] HospitalComment on above:Result Comment: CUT-OFF POINTS HAVE BEEN ESTABLISHED BASED ON THE FOURTH UNIVERSAL DEFINITIONS OF MYOCARDIAL INFARCTION. THE UPPER REFERENCE LIMIT (URL) OF TROPONIN, DEFINED THE 99TH PERCENTILE OF cTnI DISTRIBUTION IN A REFERENCE POPULATION, HAS BEEN CONFIRMED THE DECISION THRESHOLD FOR RI DIAGNOSIS.Performed By: #### SELNIUM #### [facility] [address] [place] [address] [address] Prince ObrienO58 ng/mLNormal9-82[facility]huja Medical CenterComment on above: Performed By: #### SELNIUM #### [facility] [address] [place] [address] Dr. Prince Grace AUTO DIFFon 84-78-5030JAUL #0.1 103/ulNormal0.0-0.1The [facility] HospitalComment on above:Performed By: #### LIPID, CMP #### [facility] [address] [place] [address] [address] Prince OlivasBasophils/100 WBC (Bld)0.6 %Normal0.2-2.0[facility] Comment on above:Performed By: #### LIPID, CMP #### [facility] [address] [place] [address] Dr. Prince Roman #0.1 103/ulNormal0.0-0.7The [facility] HospitalComment on above: Performed By: #### LIPID, CMP #### [facility] [address] [place] [address] Dr. Prince Odonnellosinophils/100 WBC (Bld)0.9 %Normal0.9-7.0The [facility] Comment on above:Performed By: #### LIPID, CMP #### [facility] [address] [place] [address] Dr. Prince Odonnellrythrocyte distribution width (RBC) [Ratio]13.0 %Kblhrx30.0-15.0 The [facility] HospitalComment on above:Performed By: #### LIPID, CMP #### [facility] [address] [place] [address] Dr. Prince OlivasHematocrit (Bld) [Volume fraction]46.3 %Nwmgoq40.0-48.0The [facility] HospitalComment on above:Performed By: #### LIPID, CMP #### [facility] [address] [place] [address] Dr. Prince OlivasHemoglobin (Bld) [Mass/Vol]15.8 g/fUXtlzns45.0-16.0The [facility] HospitalComment on above:Performed By: #### LIPID, CMP #### [facility] [address] [place] [address] Dr. Prince Covarrubias #0.03 10e3/ulNormal0.00-0.03The [facility] HospitalComment on above:Performed By: #### LIPID, CMP #### [facility] [address] [place] [address] Dr. Prince Covarrubias %0.3 %Normal0.0-0.5The [facility] HospitalComment on above: Performed By: #### LIPID, CMP #### [facility] [address] [place] [address] Dr. Prince Bell #2.8 103/ulNormal1.2-3.8The [facility] HospitalComment on above:Performed By: #### LIPID, CMP #### [facility] [address] [place] [address] Dr. Prince Ruizmphocytes/100 WBC (Bld)31.8 %Tlkjjz33.5-60.0The [facility] HospitalComment on above:Performed By: #### LIPID, CMP #### [facility] [address] [place] [address] Dr. Prince Reyes DIFF REQNONormalThe [facility] HospitalComment on above: Performed By: #### LIPID, CMP #### [facility] [address] [place] [address] Dr. Prince Pinto (RBC) [Entitic mass]31.5 juLlqhsi27.7-34.0The [facility] HospitalComment on above:Performed By: #### LIPID, CMP #### [facility] [address] [place] [address] Dr. Prince Pinto (RBC) [Mass/Vol]34.1 g/oARpltkb60.9-35.2The [facility] HospitalComment on above:Performed By: #### LIPID, CMP #### [facility] [address] [place] [address] Dr. Prince Roman (RBC) [Entitic vol]92.4 eWCppovt12.0-99.0The [facility] HospitalComment on above:Performed By: #### LIPID, CMP #### [facility] [address] [place] [address] Dr. Prince Kee #0.6 103/ulNormal0.3-0.8The [facility] HospitalComment on above:Performed By: #### LIPID, CMP #### [facility] [address] [place] [address] Dr. Prince Dowdocytes/100 WBC (Bld)6.8 %Normal1.7-12.0The [facility] Comment on above:Performed By: #### LIPID, CMP #### [facility] [address] [place] [address] Dr. Prince Mallory #5.3 103/ulNormal1.4-6.5The [facility] HospitalComment on above:Performed By: #### LIPID, CMP #### [facility] [address] [place] [address] [address] Prince Justinutrophils/100 WBC (Bld)59.6 %Twtqxk66.0-75.0The [facility] on above:Performed By: #### LIPID, CMP #### [facility] [address] [place] [address] Dr. Prince OlivasPlatelet mean volume (Bld) [Entitic vol]11.6 fLNormal9.5-13.5The [facility] HospitalComhuron valley[facility] on above:Performed By: #### LIPID, CMP #### [facility] [address] [place] [address] Dr. Prince OlivasPLT185 103/vlSwnbuq955-397Hnc [facility] on above: Performed By: #### LIPID, CMP #### [facility] [address] [place] [address] Dr. Prince OlivasRBC5.01 106/ulNormal4.20-5.40The [facility] on above:Performed By: #### LIPID, CMP #### [facility] [address] [place] [address] Dr. Prince OlivasWBC8.9 103/ulNormal4.0-11.0The [facility] on above: Performed By: #### LIPID, CMP #### [facility] [address] [place] [address] Dr. Prince OlivasLIPASEon 95-80-0358Olttez [Catalytic activity/Vol]84.0 U/LNormal 73.0-393.0The [facility] HospitalComhuron valley[facility] on above:Performed By: #### SELNIUM #### [facility] [address] [place] [address] Dr. Prince OlivasPROF 14(COMP METB)on 91-11-0036Jaithup [Mass/Vol]4.1 g/dLNormal 3.4-5.0The [facility] on above:Performed By: #### SELNIUM #### [facility] [address] [place] [address] Dr. Prince OlivasAlbumin/Globulin [Mass ratio]1.6 {ratio}NormalUniversity Hospitals Ahuja Medical CenterComment on above:Performed By: #### SELNIUM #### [facility] [address] [place] [address] [address] Prince Lacy [Catalytic activity/Vol]76 U/LIcpllq81-814Dle [facility] HospitalComment on above:Performed By: #### SELNIUM #### [facility] [address] [address] [address] Prince Tompkins [Catalytic activity/Vol]14 U/PKctpsv04-75Laa [facility] HospitalComment on above:Performed By: #### SELNIUM #### [facility] [address] [place] [address] Dr. Prince Rosas gap [Moles/Vol]17.7 mmol/LNormalThe [facility] Comment on above:Performed By: #### SELNIUM #### [facility] [address] [place] [address] Dr. Prince OlivasAST [Catalytic activity/Vol]15 U/YHtymvk37-16Fcw [facility] HospitalComment on above:Performed By: #### SELNIUM #### [facility] [address] [place] [address] Dr. Prince OlivasBilirubin [Mass/Vol]0.7 mg/dLNormal0.2-1.0The [facility] Comment on above:Performed By: #### SELNIUM #### [facility] [address] [place] [address] Dr. Prince OlivasCalcium [Mass/Vol]9.4 mg/dLNormal8.5-10.1The [facility] Comment on above:Performed By: #### SELNIUM #### [facility] [address] [place] [address] Dr. Prince OlivasChloride [Moles/Vol]104 mmol/BXslvfw88-002Ejh [facility] Comment on above:Performed By: #### SELNIUM #### [facility] [address] [address] [address] Prince OlivasCO2 [Moles/Vol]20.8 mmol/LCritically low21.0-32.0The [facility] HospitalComment on above:Performed By: #### SELNIUM #### [facility] [address] [place] [address] Dr. Prince OlivasCreatinine [Mass/Vol]0.96 mg/dLNormal0.55-1.02The [facility] HospitalComment on above:Performed By: #### SELNIUM #### [facility] [address] [place] [address] Dr. Prince OdonnellGFR-AF ARMENIAN>60Normal>=60The [facility] HospitalComment on above:Performed By: #### SELNIUM #### [facility] [address] [place] [address] Dr. Prince Pond-NON AF ARMENIAN>60Normal>=60The [facility] HospitalComment on above:Performed By: #### SELVETOUM #### [facility] [address] [place] [address] Dr. Prince OlivasGlobulin (S) [Mass/Vol]2.6 g/dLNormalThe [facility] HospitalComment on above:Performed By: #### SELNIUM #### [facility] [address] [place] [address] Dr. Prince OlivasGlucose [Mass/Vol]104 mg/fFBujcbt98-656Otg [facility] Comment on above:Performed By: #### SELNIUM #### [facility] [address] [place] [address] Dr. Prince OlivasPotassium [Moles/Vol]3.5 mmol/LNormal3.5-5.1The [facility] Comment on above:Performed By: #### SELNIUM #### [facility] [address] [place] [address] Dr. Prince OlivsaProtein [Mass/Vol]6.7 g/dLNormal6.4-8.2The [facility] Comment on above:Performed By: #### SELNIUM #### [facility] [address] [place] [address] Dr. Yilan ChangSodium [Moles/Vol]139 mmol/JGfmpis511-150KckUniversity Hospitals Ahuja [facility] Center Comment on above:Performed By: #### SELVETOUM #### [facility] [address] [address] [address] Prince Tabor nitrogen [Mass/Vol]10.0 mg/dLNormal7.0-18.0The [facility] HospitalComment on above:Performed By: #### SELVETOUM #### [facility] [address] [address] [address] Prince Tabor nitrogen/Creatinine [Mass ratio]10.4 mg/mgNoSt. Vincent HospitalComment on above:Performed By: #### SELVETOUM #### [facility] [address] [place] [address] Dr. Prince OlivasXR ABD FLAT UP_PA Arnold 15-87-6778VH ABD FLAT UP_PA CHEXAM: XR ABD FLAT UP_PA CH HISTORY: CHEST [...] Electronically authenticated by: CHITRA ALFARO Date: 2021-11-14 18:10[facility] AUTO DIFFon 31-62-5144FDKQ #0.0 103/ulNormal0.0-0.1The [facility] HospitalComment on above:Performed By: #### DARIOUM #### [facility] [address] [place] [address] Dr. Prince OlivasBasophils/100 WBC (Bld)0.3 %Normal0.2-2.0[facility] Comment on above:Performed By: #### BUCK #### [facility] [address] [place] [address] Dr. Prince Roman #0.0 103/ulNormal0.0-0.7The [facility] HospitalComment on above: Performed By: #### SELVETOUM #### [facility] [address] [place] [address] Dr. Prince Odonnellosinophils/100 WBC (Bld)0.3 %Critically low0.9-7.0The [facility] HospitalComment on above:Performed By: #### SELVETOUM #### [facility] [address] [place] [address] Dr. Prince Odonnellrythrocyte distribution width (RBC) [Ratio]13.1 %Fylzlr56.0-15.0 The [facility] HospitalComment on above:Performed By: #### DARIOUM #### [facility] [address] [place] [address] Dr. Prince OlivasHematocrit (Bld) [Volume fraction]46.8 %Jbypoj32.0-48.0The [facility] HospitalComment on above:Performed By: #### SELNIUM #### [facility] [address] [place] [address] Dr. Prince OlivasHemoglobin (Bld) [Mass/Vol]15.8 g/pBLlfiap59.0-16.0The [facility] HospitalComment on above:Performed By: #### DARIOUM #### [facility] [address] [place] [address] Dr. Prince Covarrubias #0.03 10e3/ulNormal0.00-0.03The [facility] HospitalComment on above:Performed By: #### SELNIUM #### [facility] [address] [place] [address] Dr. Prince Covarrubias %0.3 %Normal0.0-0.5The [facility] HospitalComment on above: Performed By: #### SELNIUM #### [facility] [address] [place] [address] Dr. Prince Bell #2.9 103/ulNormal1.2-3.8The [facility] HospitalComment on above:Performed By: #### SELNIUM #### [facility] [address] [place] [address] Dr. Prince Ruizmphocytes/100 WBC (Bld)31.7 %Bbrqig98.5-60.0The [facility] HospitalComment on above:Performed By: #### SELNIUM #### [facility] [address] [place] [address] Dr. Prince Reyes DIFF REQNONormalThe [facility] HospitalComment on above: Performed By: #### SELNIUM #### [facility] [address] [place] [address] Dr. Prince Pinto (RBC) [Entitic mass]31.9 uoEkswza16.7-34.0The [facility] HospitalComment on above:Performed By: #### SELNIUM #### [facility] [address] [place] [address] Dr. Prince Pinto (RBC) [Mass/Vol]33.8 g/lMBtdjbd46.9-35.2The [facility] HospitalComment on above:Performed By: #### SELNIUM #### [facility] [address] [place] [address] Dr. Prince Roman (RBC) [Entitic vol]94.5 iFVovafi94.0-99.0The [facility] HospitalComment on above:Performed By: #### SELNIUM #### [facility] [address] [place] [address] Dr. Prince eKe #0.5 103/ulNormal0.3-0.8The [facility] HospitalComment on above:Performed By: #### SELNIUM #### [facility] [address] [place] [address] Dr. Prince Dowdocytes/100 WBC (Bld)5.2 %Normal1.7-12.0The [facility] on above:Performed By: #### SELNIUM #### [facility] [address] [place] [address] Dr. Prince Mallory #5.8 103/ulNormal1.4-6.5The [facility] HospitalComment on above:Performed By: #### SELNIUM #### [facility] [address] [place] [address] Dr. Prince Justinutrophils/100 WBC (Bld)62.2 %Lkmwzh42.0-75.0The [facility] HospitalComment on above:Performed By: #### SELNIUM #### [facility] [address] [place] [address] Dr. Prince OlivasPlatelet mean volume (Bld) [Entitic vol]11.1 fLNormal9.5-13.5The [facility] HospitalComment on above:Performed By: #### SELNIUM #### [facility] [address] [place] [address] Dr. Prince OlviasPLT218 103/phSpstnk193-165Mzc [facility] HospitalComment on above: Performed By: #### SELNIUM #### [facility] [address] [place] [address] Dr. Prince OlivasRBC4.95 106/ulNormal4.20-5.40The [facility] HospitalComment on above:Performed By: #### SELNIUM #### [facility] [address] [place] [address] Dr. Prince OlivasWBC9.3 103/ulNormal4.0-11.0The [facility] HospitalComment on above: Performed By: #### SELNIUM #### [facility] [address] [place] [address] Dr. Prince OlivasPROF CHEM 8 (BAS METB)on 09-09-4635Nichr gap [Moles/Vol]14.8 mmol/LNormalThe [facility] HospitalComment on above:Performed By: #### COPPER #### [facility] [address] [place] [address] Dr. Prince OlivasCalcium [Mass/Vol]9.3 mg/dLNormal8.5-10.1The [facility] Comment on above:Performed By: #### COPPER #### [facility] [address] [address] [address] Prince OlivasChloride [Moles/Vol]105 mmol/DHpzqva18-617Oss [facility] Comment on above:Performed By: #### COPPER #### [facility] [address] [place] [address] Dr. Prince OlivasCO2 [Moles/Vol]23.7 mmol/ZHiufzh77.0-32.0The [facility] Comment on above:Performed By: #### COPPER #### [facility] [address] [place] [address] Dr. Prince OlivasCreatinine [Mass/Vol]0.95 mg/dLNormal0.55-1.02The [facility] HospitalComment on above:Performed By: #### COPPER #### [facility] [address] [place] [address] Dr. Morrison ChangEGFR-AF ARMENIAN>60Normal>=60The [facility] HospitalComment on above:Performed By: #### COPPER #### [facility] [address] [place] [address] Dr. Prince OdonnellGFR-NON AF ARMENIAN>60Normal>=60[facility] CenterComment on above:Performed By: #### COPPER #### [facility] [address] [place] [address] Dr. Prince OlivasGlucose [Mass/Vol]103 mg/vCIfwmhj09-224LxtUniversity [facility]als [facility] Comment on above:Performed By: #### COPPER #### [facility] [address] [address] [address] Prince OlivasPotassium [Moles/Vol]3.5 mmol/LNormal3.5-5.1The [facility] Comment on above:Performed By: #### COPPER #### [facility] [address] [place] [address] Dr. Prince OlivasSodium [Moles/Vol]140 mmol/YAttajy909-759ZkiUniversity Hospitals Ahuja [facility] Center Comment on above:Performed By: #### COPPER #### [facility] [address] [place] [address] Dr. Yilan ChangUrea nitrogen [Mass/Vol]7.0 mg/dLNormal7.0-18.0The [facility] HospitalComment on above:Performed By: #### COPPER #### [facility] [address] [place] [address] Dr. Prince Tabor nitrogen/Creatinine [Mass ratio]7.4 mg/mgNoSt. Vincent HospitalComment on above:Performed By: #### COPPER #### [facility] [address] [place] [address] Dr. Prince Barth, HIGH SENSITIVITYon 65-47-2059FOVSUM5.3 pg/mLNormal 4.0-51.3The [facility] HospitalComment on above:Result Comment: CUT-OFF POINTS HAVE BEEN ESTABLISHED BASED ON THE FOURTH UNIVERSAL DEFINITIONS OF MYOCARDIAL INFARCTION. THE UPPER REFERENCE LIMIT (URL) OF TROPONIN, DEFINED THE 99TH PERCENTILE OF cTnI DISTRIBUTION IN A REFERENCE POPULATION, HAS BEEN CONFIRMED THE DECISION THRESHOLD FOR RI DIAGNOSIS.Performed By: #### COPPER #### [facility] [address] [place] [address] Dr. Prince OlivasXR CHEST 1 Von [id number] CHEST 1 VEXAM: XR CHEST 1 V at 1629 hours HISTORY: CHEST PAIN, UNSPECIFIED COMPARISON: [...] Electronically authenticated by: BELEN REGAN Date: 2021-11-09 17:05[facility] SystemCARDIAC SIMA ADMITon [id number] [Catalytic activity/Vol]62 U/OZncaxu92-181Xrt [facility] HospitalComment on above:Performed By: #### MMA2 #### [facility] [address] [place] [address] Dr. Prince Amador.MB [Mass/Vol]0.37 ng/mLNormal<=3.60[facility] Comment on above:Performed By: #### MMA2 #### [facility] [address] [place] [address] Dr. Prince OlivasHSTROP3.5 pg/mLCritically low4.0-51.3The [facility] HospitalComment on above:Result Comment: CUT-OFF POINTS HAVE BEEN ESTABLISHED BASED ON THE FOURTH UNIVERSAL DEFINITIONS OF MYOCARDIAL INFARCTION. THE UPPER REFERENCE LIMIT (URL) OF TROPONIN, DEFINED THE 99TH PERCENTILE OF cTnI DISTRIBUTION IN A REFERENCE POPULATION, HAS BEEN CONFIRMED THE DECISION THRESHOLD FOR RI DIAGNOSIS.Performed By: #### MMA2 #### [facility] [address] [place] [address] Dr. Prince OlivasMYO40 ng/mLNormal9-82The [facility] HospitalComment on above: Performed By: #### MMA2 #### [facility] [address] [place] [address] Dr. Prince Grace AUTO DIFFon [id number] #0.0 103/ulNormal0.0-0.1The [facility] HospitalComment on above:Performed By: #### CBC #### [facility] [address] [place] [address] Dr. Prince OlivasBasophils/100 WBC (Bld)0.6 %Normal0.2-2.0[facility] Comment on above:Performed By: #### CBC #### [facility] [address] [place] [address] Dr. Prince Roman #0.3 103/ulNormal0.0-0.7The [facility] HospitalComment on above: Performed By: #### CBC #### [facility] [address] [place] [address] Dr. Prince Odonnellosinophils/100 WBC (Bld)3.7 %Normal0.9-7.0The [facility] Comment on above:Performed By: #### CBC #### [facility] [address] [place] [address] Dr. Prince Odonnellrythrocyte distribution width (RBC) [Ratio]13.4 %Vymvey65.0-15.0 The [facility] HospitalComment on above:Performed By: #### CBC #### [facility] [address] [place] [address] Dr. Prince OlivasHematocrit (Bld) [Volume fraction]42.8 %Makgxs44.0-48.0The [facility] Campusment on above:Performed By: #### CBC #### [facility] [address] [place] [address] Dr. Prince OlivasHemoglobin (Bld) [Mass/Vol]14.1 g/hVPeietk32.0-16.0The [facility] HospitalComment on above:Performed By: #### CBC #### [facility] [address] [place] [address] Dr. Prince OlivasIG #0.02 10e3/ulNormal0.00-0.03The [facility] HospitalComment on above:Performed By: #### CBC #### [facility] [address] [place] [address] Dr. Prince Covarrubias %0.3 %Normal0.0-0.5The [facility] HospitalComment on above: Performed By: #### CBC #### [facility] [address] [place] [address] Dr. Prince Bell #2.0 103/ulNormal1.2-3.8The [facility] HospitalComh[facility] on above:Performed By: #### CBC #### [facility] [address] [place] [address] Dr. Prince Ruizmphocytes/100 WBC (Bld)27.6 %Yswkzh86.5-60.0The [facility] HospitalComment on above:Performed By: #### CBC #### [facility] [address] [place] [address] Dr. Prince OlivasMANUAL DIFF REQNONormalThe [facility] HospitalComment on above: Performed By: #### CBC #### [facility] [address] [place] [address] Dr. Prince James (RBC) [Entitic mass]31.4 hsOsygbe22.7-34.0The [facility] HospitalComment on above:Performed By: #### CBC #### [facility] [address] [address] [address] Prince PintoHC (RBC) [Mass/Vol]32.9 g/dPFfcfad59.9-35.2The [facility] HospitalComment on above:Performed By: #### CBC #### [facility] [address] [address] [address] Prince PintoV (RBC) [Entitic vol]95.3 wAOkqbln53.0-99.0The [facility] HospitalComment on above:Performed By: #### CBC #### [facility] [address] [place] [address] Dr. Prince Kee #0.6 103/ulNormal0.3-0.8The [facility] HospitalComment on above:Performed By: #### CBC #### [facility] [address] [place] [address] Dr. Prince Dowdocytes/100 WBC (Bld)8.2 %Normal1.7-12.0The [facility] Comment on above:Performed By: #### CBC #### [facility] [address] [place] [address] Dr. Prince Mallory #4.2 103/ulNormal1.4-6.5The [facility] HospitalComment on above:Performed By: #### CBC #### [facility] [address] [place] [address] Dr. Prince Justinutrophils/100 WBC (Bld)59.6 %Hqbgfg11.0-75.0The [facility] HospitalComment on above:Performed By: #### CBC #### [facility] [address] [place] [address] Dr. Prince Hardenlet mean volume (Bld) [Entitic vol]11.1 fLNormal9.5-13.5The [facility] HospitalComment on above:Performed By: #### CBC #### [facility] [address] [place] [address] Dr. Prince OlivasPLT194 103/hqKtsjrr765-145Lqx [facility] HospitalComment on above: Performed By: #### CBC #### [facility] [address] [place] [address] Dr. Prince OlivasRBC4.49 106/ulNormal4.20-5.40The [facility] HospitalComment on above:Performed By: #### CBC #### [facility] [address] [place] [address] Dr. Prince OlivasWBC7.1 103/ulNormal4.0-11.0The [facility] HospitalComment on above: Performed By: #### CBC #### [facility] [address] [place] [address] Dr. Prince OlivasPROF 14(COMP METB)on 19-62-6417Upumsci [Mass/Vol]3.9 g/dLNormal 3.4-5.0The [facility] HospitalComment on above:Performed By: #### MMA2 #### [facility] [address] [place] [address] Dr. Prince OlivasAlbumin/Globulin [Mass ratio]1.4 {ratio}NormalThe [facility] Campusment on above:Performed By: #### MMA2 #### [facility] [address] [place] [address] Dr. Prince Lacy [Catalytic activity/Vol]71 U/BKlhnld83-646Cjo [facility] Campusment on above:Performed By: #### MMA2 #### [facility] [address] [place] [address] Dr. Prince Tompkins [Catalytic activity/Vol]18 U/XZxcruo78-73Zkh [facility] Campusment on above:Performed By: #### MMA2 #### [facility] [address] [place] [address] Dr. Prince Rosas gap [Moles/Vol]10.1 mmol/LNormalThe [facility] on above:Performed By: #### MMA2 #### [facility] [address] [place] [address] Dr. Prince OlivasAST [Catalytic activity/Vol]11 U/LCritically yvh26-15Uve Rashaun HospitalComment on above:Performed By: #### MMA2 #### [facility] [address] [address] [address] Prince OlivasBilirubin [Mass/Vol]0.4 mg/dLNormal0.2-1.0The [facility] Comment on above:Performed By: #### MMA2 #### [facility] [address] [address] [address] Prince OlivasCalcium [Mass/Vol]8.8 mg/dLNormal8.5-10.1The [facility] Comment on above:Performed By: #### MMA2 #### [facility] [address] [address] [address] Prince OlivasChloride [Moles/Vol]105 mmol/IXsyfbi38-537LmoUniversity Hospitals [facility] Comment on above:Performed By: #### MMA2 #### [facility] [address] [address] [address] Prince OlivasCO2 [Moles/Vol]27.0 mmol/PMcobmv50.0-32.0[facility] Comment on above:Performed By: #### MMA2 #### [facility] [address] [address] [address] Prince OlivasCreatinine [Mass/Vol]0.67 mg/dLNormal0.55-1.02[facility] CenterComment on above:Performed By: #### MMA2 #### [facility] [address] [address] [address] Prince OdonnellGFR-AF ARMENIAN>60Normal>=60The [facility] HospitalComment on above:Performed By: #### MMA2 #### [facility] [address] [address] [address] Prince OdonnellGFR-NON AF ARMENIAN>60Normal>=60The [facility] HospitalComh[facility] on above:Performed By: #### MMA2 #### [facility] [address] [address] [address] Prince OlivasGlobulin (S) [Mass/Vol]2.7 g/dLNormalThe [facility]ul[facility] HospitalComment on above:Performed By: #### MMA2 #### [facility] [address] [address] [address] Prince OlivasGlucose [Mass/Vol]105 mg/qALjwqjr06-224FklUniversity Hospitals Ahu[facility] Center Comment on above:Performed By: #### MMA2 #### [facility] [address] [address] [address] Prince OlivasPotassium [Moles/Vol]4.1 mmol/LNormal3.5-5.1The [facility] Comment on above:Performed By: #### MMA2 #### [facility] [address] [address] [address] Prince OlivasProtein [Mass/Vol]6.6 g/dLNormal6.4-8.2[facility] Comment on above:Performed By: #### MMA2 #### [facility] [address] [address] [address] Prince OlivasSodium [Moles/Vol]138 mmol/AXyaemw982-474Cwj [facility] Comment on above:Performed By: #### MMA2 #### [facility] [address] [address] [address] Prince OlivasUrea nitrogen [Mass/Vol]7.0 mg/dLNormal7.0-18.0[facility] CenterComment on above:Performed By: #### MMA2 #### [facility] [address] [address] [address] Prince OlivasUrea nitrogen/Creatinine [Mass ratio]10.4 mg/mgNormalThe [facility] HospitalComment on above:Performed By: #### MMA2 #### [facility] [address] [address] [address] Prince OlivasXR CHEST 1 Von [id number] CHEST 1 VEXAM: Portable chest REASON FOR EXAM: Chest pain. TECHNIQUE: A portable frontal view of the chest was obtained. COMPARISON: 05/22/2020. FINDINGS: The lungs are well-inflated and clear. The heart and mediastinum are normal. There is no mass or pathologic adenopathy. Osseous structures are stable in appearance. IMPRESSION: No acute cardiopulmonary process. Electronically authenticated by: BARBI HENRY Date: 2021-10-04 10:58[facility] Healthcare SystemPROLACTINon 41-73-2082Ugjqwdirh003.0 ng/mLCritically high 4.8-23.3The [facility] HospitalComment on above:Performed By: #### LIPID, CMP #### [facility] [address] [address] [address] Prince GranadosID PROFILEon [id number]-HDL RATIO NORMSEE BELOWACMC Healthcare SystemComment on above:Result Comment: 3.3 - 4.4 LOW RISK 4.4 - 7.1 AVERAGE RISK 7.1 - 11.0 MODERATE RISK >11.0 HIGH RISKPerformed By: #### LIPID, CMP #### [facility] [address] [address] [address] Prince Girardesterol [Mass/Vol]205 mg/dLCritically high<=200The [facility] on above:Performed By: #### LIPID, CMP #### [facility] [address] [address] [address] Prince Girardesterol in HDL [Mass/Vol]46 mg/cWLpvsvj60-75KpuRegency Hospital Cleveland East on above:Performed By: #### LIPID, CMP #### [facility] [address] [address] [address] Prince Girardesterol in LDL [Mass/Vol]148.6 mg/dLACMC Healthcare SystemComment on above:Performed By: #### LIPID, CMP #### [facility] [address] [address] [address] Prince Girardestervidhya.total/Cholesterol in HDL [Mass ratio]4.5 {ratio} NormalRegency Hospital Cleveland East on above:Performed By: #### LIPID, CMP #### [facility] [address] [address] [address] Prince OlivasHDL NORMAL> or = 60 mg/dl - LOW CARDIOVASCULAR RISK <40 mg/dl - HIGH CARDIOVASCULAR RISKACMC Healthcare SystemComment on above:Performed By: #### LIPID, CMP #### [facility] [address] [place] [address] Dr. Prince Wesley CALC NORMALSEE BELOWACMC Healthcare SystemComment on above:Result Comment: <100 mg/dl OPTIMAL 100 - 129 mg/dl NEAR OR ABOVE OPTIMAL 130 - 159 mg/dl BORDERLINE HIGH 160 - 189 mg/dl HIGH >190 mg/dl VERY HIGH Performed By: #### LIPID, CMP #### [facility] [address] [address] [address] Prince OlivasTriglyceride [Mass/Vol]52 mg/dLNormal<=150The [facility] Comment on above:Performed By: #### LIPID, CMP #### [facility] [address] [place] [address] Dr. Prince OlivasVLDL CALC10.4 mg/dLNoSt. Vincent HospitalComment on above: Performed By: #### LIPID, CMP #### [facility] [address] [place] [address] Dr. Prince OlivasPROF 14(COMP METB)on 71-64-7079Magcgbw [Mass/Vol]3.7 g/dLNormal 3.4-5.0The [facility] HospitalComment on above:Performed By: #### LIPID, CMP #### [facility] [address] [place] [address] Dr. Prince OlivasAlbumin/Globulin [Mass ratio]1.5 {ratio}NormalThe [facility] HospitalComment on above:Performed By: #### LIPID, CMP #### [facility] [address] [place] [address] Dr. Prince Lacy [Catalytic activity/Vol]66 U/BPyogkl74-908Dtt [facility] HospitalComment on above:Performed By: #### LIPID, CMP #### [facility] [address] [place] [address] Dr. Prince Tompkins [Catalytic activity/Vol]14 U/KKejceo76-36Xcp [facility] HospitalComment on above:Performed By: #### LIPID, CMP #### [facility] [address] [place], [place] [id number] Dr. Prince Rosas gap [Moles/Vol]13.8 mmol/LNormalUniversity Hospitals [facility] Comment on above:Performed By: #### LIPID, CMP #### [facility] [address] [address] [address] Prince OlivasAST [Catalytic activity/Vol]10 U/LCritically kao60-67Tta [facility] HospitalComment on above:Performed By: #### LIPID, CMP #### [facility] [address] [address] [address] Prince OlivasBilirubin [Mass/Vol]0.3 mg/dLNormal0.2-1.0[facility] Comment on above:Performed By: #### LIPID, CMP #### [facility] [address] [address] [address] Prince OlivasCalcium [Mass/Vol]8.9 mg/dLNormal8.5-10.1[facility] Comment on above:Performed By: #### LIPID, CMP #### [facility] [address] [address] [address] Prince OlivasChloride [Moles/Vol]106 mmol/BGzmfux24-412BhmUniversity Hospitals Ahuja Medical Center Comment on above:Performed By: #### LIPID, CMP #### [facility] [address] [place] [address] Dr. Prince OlivasCO2 [Moles/Vol]24.0 mmol/MWukbvl67.0-32.0[facility] Comment on above:Performed By: #### LIPID, CMP #### [facility] [address] [address] [address] Prince OlivasCreatinine [Mass/Vol]1.05 mg/dLCritically high0.55-1.02The [facility] HospitalComment on above:Performed By: #### LIPID, CMP #### [facility] [address] [address] [address] Prince OdonnellGFR-AF ARMENIAN>60Normal>=60The [facility] HospitalComment on above:Performed By: #### LIPID, CMP #### [facility] [address] [address] [address] Prince OdonnellGFR-NON AF HDEGPEPJ29 mL/min/1.14n0Jhqffuhkib low>=60The [facility] HospitalComment on above:Performed By: #### LIPID, CMP #### [facility] [address] [address] [address] Prince OlivasGlobulin (S) [Mass/Vol]2.5 g/dLNoSt. Vincent HospitalComment on above:Performed By: #### LIPID, CMP #### [facility] [address] [address] [address] Prince OlivasGlucose [Mass/Vol]107 mg/dLCritically bjej59-352Aik [facility] HospitalComment on above:Performed By: #### LIPID, CMP #### [facility] [address] [place] [address] Dr. Prince OlivasPotassium [Moles/Vol]3.8 mmol/LNormal3.5-5.1The [facility] Comment on above:Performed By: #### LIPID, CMP #### [facility] [address] [address] [address] Prince OlivasProtein [Mass/Vol]6.2 g/dLCritically low6.4-8.2The [facility] HospitalComment on above:Performed By: #### LIPID, CMP #### [facility] [address] [address] [address] Prince OlivasSodium [Moles/Vol]140 mmol/XPtzbtx338-425Pjh [facility] Comment on above:Performed By: #### LIPID, CMP #### [facility] [address] [address] [address] Prince OlivasUrea nitrogen [Mass/Vol]10.0 mg/dLNormal7.0-18.0The [facility] HospitalComment on above:Performed By: #### LIPID, CMP #### [facility] [address] [place] [address] Dr. Prince OlivasUrea nitrogen/Creatinine [Mass ratio]9.5 mg/mgNoSt. Vincent HospitalComment on above:Performed By: #### LIPID, CMP #### [facility] [address] [address] [address] Prince Olivas Vital Signs Date TimeVital SignValuePerforming OmyexvqptFgnqpyay18-26-8092 11:41-0400Body cdvpau385.99 cmGerman [facility]04-[facility]-2025 11:41-0400Body mass index (BMI) [Ratio]21.7 kg/k4SpdsqycdiGerman [facility]04-[facility] 11:41-0400Body kunkkr91.77 kgGerman [facility]04-10[facility]25 11:41-0400Diastolic blood ytyekprs89 mm[Hg][facility] 06-25-2024 11:41-0400Heart pyoe268 /[facility] 06-25-2024 11:41-0400Inhaled oxygen flow rate1 L/[facility]04-10-2025 11:41-0400Respiratory rate20 /[facility]04-10-2025 11:41-2480RaS9% (BldA) [Mass fraction]96 %[facility]04-10-2025 11:41-0400Systolic blood sindaqze371 mm[Hg][facility]01-06-2025 13:10-0500Blood Pressure LocationMoronan Rae 447-8545Vmhexu-BobwwMary [facility]01-06-2025 13:10-0500Diastolic blood opdaufiq11 mm[Hg]Sandoval Rae 833-8241Ujszeh-WrgsgMary [facility]01-06-2025 13:10-0500Heart rate96 /Barbara Rae 485-6444Bphfor-VoczqMary [facility]01-06-2025 13:10-0500Systolic blood xxojpjjp154 mm[Hg]Sandoval Rae 021-1617Kiojvp-TzvqzMary [facility]12-10-2024 11:16-0500Diastolic blood ccooibtl61 mm[Hg]Mohamad Mouchli [facility]12-10-2024 11:16-0500Heart rate71 /minMohamad Mouchli [address] [place], [place] 1937512-10-2024 11:16-0500Mean blood pgyfkots94 mm[Hg]Mohamad Mouchli [address] [place], [place] 1937512-10-2024 11:16-0500 Respiratory rate10 /minMohamad Mouchli [address] [place], [place] 1937512-10-2024 11:16-4416YhB0% (BldA) [Mass fraction]96 %Mohamad Mouchli [address] [place], [place] 1937512-10-2024 11:16-0500 Systolic blood eiaanwhu679 mm[Hg]Mohemekad Reginalduchli [address] [place], [place] 1937512-10-2024 11:05-0500 Diastolic blood zuquylnq96 mm[Hg]Mohamad Mouchli [address] [place], [place] 1937512-10-2024 11:05-0500Heart rate73 /minMohamad Mouchli [address] [place], [place] 1937512-10-2024 11:05-0500Mean blood iqzftgyz07 mm[Hg]Mohamad Mouchli [address] [place], [place] 1937512-10-2024 11:05-0500 Respiratory rate18 /minMohamad Mouchli [address] [place], [place] 1937512-10-2024 11:05-2014VpH3% (BldA) [Mass fraction]95 %Mohamad Mouchli [address] [place], [place] 1937512-10-2024 11:05-0500 Systolic blood mm[Hg]Mohamad Mouchli [address]12-10-2024 10:51-0500Body koheqlcdptp03.24 [degF]Mohamad Mouchli [address] [place], [place] 1937512-10-2024 10:51-0500 Diastolic blood mm[Hg]Mohamad Mouchli [address] [place], [place] 6153912-10-2024 10:51-0500Heart rate81 /minMohamad Mouchli [address] [place], [place] 1937512-10-2024 10:51-0500Mean blood iroblqtz29 mm[Hg]Mohamad Mouchli [address] [place], [place] 6153912-10-2024 10:51-0500 Respiratory rate18 /minMohamad Mouchli [address] [place], [place] 6153912-10-2024 10:51-9858JdI2% (BldA) [Mass fraction]97 %Mohamad Mouchli [address] [place], [place] 1937512-10-2024 10:51-0500 Systolic blood asbvdtkg169 mm[Hg]Mohamad Mouchli [address] [place], [place] 1937512-10-2024 10:45-0500 Respiratory rate15 /minMohamad Mouchli [address] [place], [place] 1937512-10-2024 10:40-0500 Respiratory rate16 /minMohamad Mouchli [address] [place], [place] 1937512-10-2024 10:35-0500 Respiratory rate17 /minMohamad Mouchli [address] [place], [place] 6153912-10-2024 09:14-0500Blood Pressure LocationMohamad Mouchli [address] [place], [place] 6153912-10-2024 09:14-0500Body dkodxpnyzto84.88 [degF]Mohamad Mouchli [facility]12-06-2024 08:41-0500Blood Pressure LocationMohamad Mouchli [phone]-Iwcde[address] [place], [place] 6642912-06-2024 08:41-0500Diastolic blood mm[Hg]Mohamad Mouchli 939-7206Ygclzz-Hhlwo[address] [place], [place] 6642912-06-2024 08:41-0500Heart rate80 /minMohamad Mouchli 348-4934Lbxjmn-Nbmra[address] [place], [place] 6642912-06-2024 08:41-0500Systolic blood gkrhkkon006 mm[Hg]Sandoval Magañali 518-9614Wtjvhx-Icgee[address] [place], [place] 6642910-31-2024 10:08-0400Blood Pressure LocationMohamad Gómezli 032-6499Rjhncu-Sszdp[address] [place], [place] 6642910-31-2024 10:08-0400Diastolic blood eofxftbt28 mm[Hg]Paradiseemekad Reginalduchli 731-6291Mbfqvc-Hbuaw[address] [place], [place] 6642910-31-2024 10:08-0400Heart rate73 /minMohamad Mouchli 856-3367Sqrzcg-Gtudp[address] [place], [place] 6642910-31-2024 10:08-0400Systolic blood lnblprqa276 mm[Hg]Sandoval Magañali 862-3179Ackwsh-Fojbd[address] [place], [place] 6642907-09-2024 15:00-0400Diastolic blood gtqamwtn53 mm[Hg]José Luis Resendiz [facility]07-09-2024 15:00-0400Heart rate66 /Álvaro Resendiz [facility]07-09-2024 15:00-0400Mean blood tduexfvi66 mm[Hg]José Luis Resendiz [address] [place], [place] 8758307-09-2024 15:00-0400 Respiratory rate16 /minJolex Resendiz [address] [place], [place] 8758307-09-2024 15:00-0400 Systolic blood yermplgq822 mm[Hg]José Luis Resendiz [address] [place], [place] 8758307-09-2024 14:00-0400 Diastolic blood rpbomcux28 mm[Hg]José Luis Resendiz [address] [place], [place] 8758307-09-2024 14:00-0400Heart rate75 /minJohn Astrid [address] [place], [place] 8758307-09-2024 14:00-0400Mean blood abxzvipp96 mm[Hg]José Luis Resendiz [address]07-09-2024 14:00-8817ZlC2% (BldA) [Mass fraction]95 %José Luis Resendiz [address] [place], [place] 8758307-09-2024 14:00-0400 Systolic blood aeumptua991 mm[Hg]José Luis Resendiz [address]07-09-2024 12:58-0400Body dfwqxhtrzhe68.06 [degF]José Luis Resendiz [address]07-09-2024 12:58-0400 Diastolic blood rnqrobws98 mm[Hg]José Luis Resendiz [address] [place], [place] 8758307-09-2024 12:58-0400Heart rate89 /minJohn Astrid [address] [place], [place] 8758307-09-2024 12:58-0400 Respiratory rate18 /minJohn Astrid [address] [place], [place] 8758307-09-2024 12:58-9429IoV3% (BldA) [Mass fraction]96 %José Luis Resendiz [facility]07-09-2024 12:58-0400 Systolic blood ebhmvtkx435 mm[Hg]José Luis Resendiz [facility]01-18-2023 15:50-0500 Diastolic blood ktgujqrv77 mm[Hg]Tiffani Morales MD Work Phone: [facility]01-18-2023 15:50-0500Heart rate73 /min Tiffani Morales MD Work Phone: [facility]01-18-2023 15:50-0500Respiratory rate 16 /minSemma Morales MD Work Phone: [facility]01-18-2023 15:50-7889TvM1% (BldA) [Mass fraction]97 %Tiffani Morales MD Work Phone: [facility]01-18-2023 15:50-0500Systolic blood dvthdani323 mm[Hg]Tiffani Morales MD Work Phone: [facility]01-18-2023 15:26-0500Body temperature 97.2 [degF]Tiffani Morales MD Work Phone: [facility]01-18-2023 12:51-0500Body sdeffo048.7 cmSemma Morales MD Work Phone: [facility]01-18-2023 12:51-0500Body meyrwd78.81 kgTiffani Morales MD Work Phone: [facility]10-17-2022 16:50-0400Diastolic blood uhyulmcv22 mm[Hg]Tiffani Morales MD Work Phone: [phone]10-17-2022 16:50-0400Heart rate69 /min Tiffani Morales MD Work Phone: [facility]10-17-2022 16:50-0400Respiratory rate 16 /Joslyn Morales MD Work Phone: [phone]10-17-2022 16:50-5360BwW4% (BldA) [Mass fraction]95 %Tiffani Morales MD Work Phone: [facility]10-17-2022 16:50-0400Systolic blood awspnqxe162 mm[Hg]Tiffani Morales MD Work Phone: [facility]10-17-2022 16:33-0400Body temperature 98.1 [degF]Tiffani Morales MD Work Phone: [phone]10-17-2022 15:39-0400Body .7 cmShiwerner Morales MD Work Phone: [phone]10-17-2022 15:39-0400Body ltuchq64.81 kgTiffani Morales MD Work Phone: [phone]04-05-2022 13:37-0400Body eeehxd955 cm Upobdulio Evans MD Work Phone: SyvnNtogzv50-394937RbkdBpevrw66-27-5686 13:37-0400Body mass index (BMI) [Ratio]17.98 kg/p1Sfrlapuobdulio Evans MD Work Phone: [phone]) [phone]ibovh77-68-4567 13:37-0400Body razpmy84.43 kg Robb Evans MD Work Phone: IjcgVywyxl12-976098QoocVweaya06-58-4157 13:37-0400Diastolic blood mm[Hg]Robb Evans MD Work Phone: 1(305) [phone]gxnnb81-07-6361 13:37-0400Heart rate77 /min Robb Evans MD Work Phone: 1(841) [phone]jgiit53-04-4154 13:37-0400Respiratory rate16 /min Robb Evans MD Work Phone: 1(260) [phone]kwxJibtsd50-62-1197 13:37-9237KzO0% (BldA) [Mass fraction]95 %Robb Evans MD Work Phone: FgpyGwtwzr76-933905AlkqXtbkqa13-02-5600 13:37-0400Systolic blood pressure 102 mm[Hg]Robb Evans MD Work Phone: 1(635) [phone]hlyJojwpv90-36-6978 14:10-0400Body wbduol832 cm Upobdulio Evans MD Work Phone: 1(676) [phone]uznIlqxnl74-09-9938 14:10-0400Body mass index (BMI) [Ratio]17.38 kg/t0Cgikrjwobdulio Evans MD Work Phone: 1(353) [phone]-334958WuprQxvdzo97-99-7821 14:10-0400Body vapntt10.62 kg Upobdulio Evans MD Work Phone: 1(752) [phone]gBqvody44-00-4470 14:10-0400Diastolic blood gwaqdyow17 mm[Hg]Robb Evans MD Work Phone: 1(157) [phone]rwpZoywpk37-10-5428 14:10-0400Heart rate84 /min Robb Evans MD Work Phone: 1(452) [phone]jmnHkuicg89-09-1843 14:10-0400Respiratory rate16 /min Robb Evans MD Work Phone: 1(704) [phone]ukgAztivf64-60-0270 14:10-6156MoZ2% (BldA) [Mass fraction]96 %Robb Evans MD Work Phone: 1(169) [phone]etgNamuvu69-03-3976 14:10-0400Systolic blood pressure 94 mm[Hg]Robb Evans MD Work Phone: [facility] Encounters Encounter DateEncounter Type[facility] ProviderFacilityStart: 11-20-2024 End: 04-25-1698Kvrlblcuon Teresita Rosado NP Work Phone: Referring PhysicianComment on above:Nausea (Primary Dx); Vomiting without nausea, unspecified vomiting typeStart: 07-15-2024 End: 88-73-4505mttdmbeajjEJK Lala Ch SchwabFacility:[facility] BellevueStart: 06-25-2024 End: 80-31-5625ogsokikavwGqfofqblnKing[facility] [place] Work Phone: Start: 06-25-2024 End: 04-27-3212Loyaoar encounter procedureAt[facility] Work Phone: Start: 06-09-2024 End: 25-27-3387gvjmjpeohlAVJ Lala L SchwabFacility:FT FM BellevueStart: 06-03-2024 End: 70-31-6564mrshxiifptMUX Lala L SchwabFacility:[facility] FM BellevueStart: 06-02-2024 End: 50-14-8044tiawfgmwknTAC Lala L SchwabFacility:CD:[id number]: 05-12-2024 End: 24-76-6145zqydslazvpFAW Lala L SchwabFacility:[facility] BellevueStart: 05-11-2024 End: 63-85-8152faogestzniYPY Lala L SchwabFacility:CD:[id number]: 03-23-2024 End: 76-21-0357ujnkgsttjkDneklel AYaw MagañaliFacility:[facility] Hospitaltart: 03-23-2024 End: 83-34-6232Nmobcfp encounter procedureSandoval Rae 523-3968Ooxteh-MnmxfHolzer Hospital [facility] Start: 03-15-2024 End: 19-01-5134ktjnrextvqWjmmbte ReineckFacility:[facility] Cent[facility]art: 02-25-2024 End: 47-49-6788oatiftemrmAzkrqnr Santosh RaeFacility:FTS[facility]OSPITALtart: 02-25-2024 End: 52-46-2271Rlyfwdp encounter procedureSandoval Rae [facility] Start: 02-21-2024 End: 55-31-9489rcvruaxlkjYbyhmeb A. MouchliFacility:[facility] DHStart: 02-21-2024 End: 39-83-2213Vrfddhx encounter procedureMohamad A. Mouchli 440-1559Qihzgt-LowxnHolzer Hospital [facility] Start: 02-18-2024 End: 54-23-7577ptxikixafsJico L SchwabFacility:[facility] [place]vueStart: 02-05-2024 End: 16-59-8204dsjjkurphyQwyvqra A. MouchliFacility:RadhaOpelika DHStart: 02-05-2024 End: 88-63-7737Jcozhuw encounter procedureMohamad A. Mouchli 352-4996Gihbtb-SwdctHolzer Hospital [facility] Start: 01-27-2024 End: 83-18-6165nlxsyjajaoZmurjcx A. MouchliFacility:FTMCStart: 01-27-2024 End: 98-05-9671Jnhqelk encounter procedureMohamad A. Mouchli [facility] Start: 01-16-2024 End: 41-62-4942dgszsymyfbDuwodai A. MouchliFacility:[facility] DHStart: 01-16-2024 End: 43-70-9162Utlcohg encounter procedureMohamad A. Mouchli [phone]-KaiauHolzer Hospital [facility] Start: 11-26-2023 End: 75-26-0795elvkzqdviaBqym L SchwabFacility:[facility] [place]vueStart: 10-03-2023 End: 95-65-4482bhslennxjvLlzq L SchwabFacility:[facility] BellevueStart: 09-27-2023 ambulatoryFAITH MCNEALFacility:[facility] BellevueStart: 09-24-2023 End: 16-86-6819Neizjjkhv department patient visitE[facility] Start: 12-99-7862Pvrgsdefd encounterSemma Morales MD Work Phone: GastroenterologyComment on above:Patient Question Start: 05-07-2022 End: 57-42-0427pjrsxubiavYKTS LACOURFacility:R7Fmbgn: 04-24-2022 End: 35-46-6582yncjxikzegXSZB JO AICHHOLZFacility:[facility] Start: 04-24-2022 End: 19-10-6768Latjzxyir therapyTiffani Morales MD Work Phone: GastroenterologyComment on above:Severe malnutrition (HCC) (Primary Dx)Start: 04-24-2022 End: 73-63-8898Wywaxiwvmmew consultation with patientSemma Morales MD Work Phone: [facility] MAINStart: 62-83-1206Wnxdup Robb Evans MD Work Phone: [facility] Physicians GroupStart: 67-77-4586Bnpaja Saúl Kaur [facility] Physicians GroupComment on above:Generalized anxiety disorderStart: 77-09-4084Jclgdnxhc encounterSemma Morales MD Work Phone: GastroenterologyComment on above:Refill RequestStart: 04-04-2022 End: 47-69-4577pbxgcxcyujOOWLHJ G FRANCISCOFacility:[facility] Start: 04-04-2022 End: 81-10-4281Hxagiqdtex hospital visit by physicianSemma Morales MD Work Phone: GastroenterologyComment on above: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]Start: 03-31-2022 End: 78-27-6373zwxzbsttbgFU DOCTOR MISCFacility:U8Zlfaz: 03-28-2022 End: 58-52-5735lerkhhwfmzOU BRITNI BELLCTFacility:X3Cwhtn: 47-33-8004Nehkksjdq encounterSdonna Harrington RNGastroenterologyComment on above:Appointment ConfirmationStart: 06-39-6963EfpbalYrihu Henry [facility] Start: 29-88-3919XegyyfMzkqdPedro Luis Mosqueda PA-C Work Phone: GastroenterologyComment on above:Refill RequestStart: 06-36-6933QolhriXittw Samuel [facility] Physicians GroupComment on above: Generalized anxiety disorderStart: 03-01-2022 End: 93-42-0772zcztogtfhxZUDGFidelia Reinosocility:[facility] Start: 03-01-2022 End: 57-52-7704Rhtovtsod therapyTiffani Morales MD Work Phone: GastroenterologyComment on above:Severe protein- calorie malnutrition (HCC) (Primary Dx); 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); Weight loss; Severe malnutrition (HCC)Start: 03-01-2022 End: 19-16-1889Dmcculdexpmk consultation with Parisa Morales MD Work Phone: ccf [facility] MAINStart: 91-51-9437flvpyooror Yan Garcia MD Work Phone: GastroenterologyStart: 95-11-6446Bdugjlw encounter procedureYan Garcia Jr., MD Work Phone: ccf [facility] MAINStart: 24-42-3699BupqoiBvzonYajaira Mosqueda PA-C Work Phone: GastroenterologyComment on above:Refill RequestStart: 02-06-2022 End: 93-53-7442llmkezcnjjHICNFidelia Reinosocility:[facility] Start: 02-05-2022 End: 12-03-4024ypgpzjyehvBUIUKelly Reinosocility:[facility] Start: 69-65-9232bsigwqsixpJxqemv Santisi RNGastroenterologyStart: 01-29-2022 Patient encounter procedureDolores Lopez [facility] MAINStart: 01-29-2022 End: 02-90-2409Rvmtofsqxx hospital visit by Bird Work Phone: GastroenterologyComment on above:ArrivedStart: 71-78-7298kqaoccdxllXmcaMina Sotocility:Thuy DHStart: 01-16-2022 Aicha Braxton Physicians GroupStart: 52-11-3191Yaknxetrh encounterSjacqueline Mosqueda PA-C Work Phone: GastroenterologyComment on above:Patient Question; Returning Patient's Call; ResultsNausea (Primary Dx); Weight loss; Small bowel polypResults (Post-EGD)Start: 22-71-6549Aawfftazj encounterSjacqueline AGUILAR-Osbaldo Work Phone: GastroenterologyComment on above:ResultsStart: 85-53-1217Tpsmvpfda encounterSjacqueline AGUILAR-Osbaldo Work Phone: digestive Disease InstComment on above:ResultsStart: 01-01-2022 End: 86-87-1776yhyknmwqyePTMXZ A LAMARCAFacility:[facility] HospitalStart: 01-01-2022 End: 37-08-7727Lsxyhfmfdg hospital visit by Daya Morales MD Work Phone: GastroenterologyComment on above:Nausea and vomiting, unspecified vomiting type [R11.2]Start: 28-89-4902Nuufftdrh encounterEnriquetarosmery Moustapha RNGastroenterologyComment on above:AppointmentStart: 12-19-2021 End: 47-39-3384ftglyyyphvBDCS J [facility] AmbulatoryStart: 12-15-2021 End: 87-99-9722mkaqbflpsrRobliMukesh AGUILAR-Osbaldo Work Phone: GastroenterologyComment on above:Nausea and vomiting, unspecified vomiting type (Primary Dx); Left upper quadrant abdominal pain; Weight lossStart: 12-15-2021 End: 79-44-0357Pxsjqinpgkck consultation with Juanita Mosqueda PA-C Work Phone: ccf [facility] MAINStart: 12-14-2021 End: 03-12-0286sdbvsrdoffVLKSQ MUKHDOMIFacility:[facility] HospitalStart: 12-14-2021 End: 34-04-8150Pztzlqp encounter procedureSjacqueline Mosqueda PA-C Work Phone: GastroenterologyComment on above:APPOINTMENT CANCELLED (Primary Dx)Start: 12-14-2021 End: 53-74-4187Idsrxxvobakp consultation with Juanita Mosqueda PA-C Work Phone: ccf [facility] MAINStart: 76-28-2341Pbrfpmyna encounterSjacqueline Mosqueda PA-C Work Phone: GastroenterologyComment on above:AppointmentStart: 12-11-2021 End: 57-58-1174gkgfdbjbquCCR CRISTINA FARIDAFacility:H3Btysd: 12-03-2021 End: 11-67-7588Cojrfyxyd department patient visitTim ThomasFacility:FTMCStart: 11-14-2021 End: 02-50-1705mrhbbfbtfnUXM CRISTINA FARIDAFacility:D1Kxpas: 11-09-2021 End: 89-24-6645loywzllirwYBI CRISTINA FARIDAFacility:N0Xlvzi: 10-04-2021 End: 65-89-9296ebfkxxnzpvHKE CRISTINA FARIDAFacility:U9Zjwil: 34-21-8382Tocahj Robb Evans MD Work Phone: [facility] Physicians GroupStart: 09-27-2021 Documentation procedureRobb Evans MD Work Phone: [facility]Start: 09-25-2021 End: 68-29-8951xtuyntguynIDVZHUI GEHLOTFacility:B8Zcihd: 09-19-2021 End: 34-53-9211hyevubvetpYMYHScotland [facility] AmbulatoryStart: 09-19-2021 End: 65-23-9129Izvwmi outpatient visit 25 minutesRobb Evans MD Work Phone: [facility] Physicians GroupComment on above:Bipolar 1 disorder, mixed, mild (HCC) (Primary Dx); Generalized anxiety disorder; Long-term use of high-risk medicationStart: 68-77-1816MlafjzFmvfv Jerger LPN [facility] Neurological PhysiciansComment on above:Generalized anxiety disorder Start: 06-20-2021 End: 01-98-5546rzgixctmvdIWWX [facility] AmbulatoryStart: 06-20-2021 End: 56-80-6311Fgpwws outpatient visit 25 minutesUpobdulio Evans MD Work Phone: [facility] Physicians GroupComment on above: Generalized anxiety disorder (Primary Dx); Bipolar 1 disorder, mixed, mild (HCC); Long-term use of high-risk medication; Post traumatic stress disorder (PTSD)Start: 84-97-5070AgwzhoFulvd Samuel [facility] Physicians GroupComment on above:Generalized anxiety disorderStart: 03-01-2021 End: 43-73-1328Xtjt/qhp telephone evaluation 02-04 Bhupinder Evans MD Work Phone: [facility] Physicians GroupComment on above:Bipolar 1 disorder, mixed, mild (HCC) (Primary Dx); Generalized anxiety disorder; Long-term use of high-risk medicationStart: 03-01-2021 End: 53-43-0591njlovmywhjUZIL [facility] AmbulatoryStart: 01-31-2021 Aicha MUNROEWayne Hospital Physicians GroupComment on above:Generalized anxiety disorderStart: 45-61-4538IkkhqlJuczv Samuel MAOWayne Hospital Physicians GroupComment on above:Generalized anxiety disorderStart: 08-22-2020 End: 79-29-1149Nsfi/qhp telephone evaluation - Bhupinder Evans MD Work Phone: [facility] Physicians GroupComment on above:Moderate mixed bipolar I disorder (HCC) (Primary Dx); Generalized anxiety disorder; Long-term use of high-risk medicationStart: 07-18-2020 End: 38-72-9656Ixsohr outpatient visit 25 minutesUpender Nathan SANDOVAL Work Phone: [facility] Physicians GroupComment on above: Generalized anxiety disorder (Primary Dx); Moderate mixed bipolar I disorder (HCC); Long-term use of high-risk medication Procedures DateProcedureProcedure DetailPerforming ClinicianStart: 02-25-2024 EsophagogastroduodenoscopyMohamkim Rae Start: 96-28-7404Stfeurmir upper small intestineSemma Morales MD Work Phone: Start: 83-76-1185Kxygxzitcdvyinkzbkxyzzkkkl transoral diagnosticSjacqueline Mosqueda PA-C Work Phone: start: 02-90-3827LuisnpgzwkiLgrnt Maurilio MAStart: 04-10-0892VsbnjmaxxyqTmyf Astrid Comment on above:2 small sessile polyps descending colon, 5 small sessile polyps sigmoid.Start: 05-08-2019 EsophagogastroduodenoscopyJosé Luis Astrid Comment on above:mild antral gastristis and small hiatal herniaStart: 13-64-7326Gqlpxauzzxzq axial tomographyJolex Astrid [employer] Comment on above:Abdomen and Pelvis; small left renal cystStart: 75-23-5331JndkjbicxaeaadvfHrpu [employer] Comment on above:ECG Monitoring also performed. Normal , EF 55-60% no vascular abnormaltiesStart: 89-76-0767Ruftcuwispjkwf stress testingJosé Luis [facility] Comment on above:Normal; EF 74%, normal study, nucleur AppendectomyQuottelex [employer] Cesarean sectionJolex [employer] CholecystectomyJolex [employer] Foot repairJolex [employer] H/O: surgeryHistory of abdominal surgeryMoronan Rae History of cholecystectomyS/P cholecystectomyMoronan Rae Oral surgery (qualifier value)José Luis Resendiz Total hysterectomyJosé Luis Resendiz Plan of Treatment DateCare ActivityDetailAuthorStart: 51-47-8884Lvtldvrzo for malignant neoplasm of colonOhioHealthStart: 57-61-9076Mbcmsvdrt vaccinationInfluenza Vaccine (#1) [facility]: 04-27-2022 End: 14-84-0004Wmgxwwl encounter dbtwlrcwy94/10/2023 Office Visit Psychiatry Robb Evans MD [address] [place] [phone] [facility] Physicians GroupStart: 03-26-2022 End: 26-59-5148Hunldxc encounter lignhilxm00/09/2023 Office Visit Psychiatry Robb Evans MD [address] [address] [facility]: 09-19-7867ZKORGMGOPT ASSESSMENTDEPRESSION ASSESSMENTSelect [facility]: 03-02-2022 End: [id number]-rdmzrkfhfcocde D3 [Mass/volume] in Serum or PlasmaVITAMIN D 25 HYDROXY Lab Routine Severe protein-calorie malnutrition (HCC) Expected: 03/02/2022 (Approximate), Expires: 03/01/2023[facility] Work Phone: Comment on above:Expected: 03/02/2022 (Approximate), Expires: 03/01/2023Start: 03-02-2022 End: 98-60-6655Mjqav tocopherol [Mass/volume] in Serum or PlasmaVITAMIN E/TOCOPHEROL Lab Routine Severe protein-calorie malnutrition (HCC) Expected: 03/02/2022 (Approximate), Expires: 03/01/2023[facility] Work Phone: Comment on above:Expected: 03/02/2022 (Approximate), Expires: 03/01/2023Start: 03-02-2022 End: 03-01-2023 reactive protein [Mass/volume] in Serum or PlasmaC-REACTIVE PROTEIN (CRP) Lab Routine Severe protein-calorie malnutrition (HCC) Expected: 03/02/2022(Approximate), Expires: 03/01/2023[facility] Work Phone: Comment on above:Expected: 03/02/2022 (Approximate), Expires: 03/01/2023Start: 03-02-2022 End: 48-87-2287LFS W Auto Differential panel - BloodCBC + DIFF Lab Routine Severe protein-calorie malnutrition (HCC) Expected: 03/02/2022 (Approximate), Expires: 03/01/2023[facility] Work Phone: Comment on above:Expected: 03/02/2022 (Approximate), Expires: 03/01/2023Start: 03-02-2022 End: 59-58-4537Buxnnjqzl (Vitamin B12) [Mass/volume] in Serum or PlasmaVITAMIN B12 BLOOD Lab Routine Severe protein-calorie malnutrition (HCC) Expected: 03/02/2022 (Approximate), Expires: 03/01/2023[facility] Work Phone: Comment on above:Expected: 03/02/2022 (Approximate), Expires: 03/01/2023Start: 03-02-2022 End: 11-32-7525Rxvwcnccejenp metabolic 2000 panel - Serum or PlasmaCOMP METABOLIC PANEL Lab Routine Severe protein-calorie malnutrition (HCC) Expected: 03/02/2022 (Approximate), Expires: 03/01/2023[facility] Work Phone: Comment on above:Expected: 03/02/2022 (Approximate), Expires: 03/01/2023Start: 03-02-2022 End: 23-43-8950LLRXEA BLOODCOPPER BLOOD Lab Routine Severe protein-calorie malnutrition (HCC) Expected: 03/02/2022 (Approximate), Expires: 03/01/2023 [facility] Work Phone: Comment on above:Expected: 03/02/2022 (Approximate), Expires: 03/01/2023Start: 03-02-2022 End: 76-28-1249QGYZG ACIDS PROFILE, ESSENTIALFATTY ACIDS PROFILE, ESSENTIAL Lab Routine Severe protein-calorie malnutrition (HCC) Expected: 03/02/2022 (Approximate), Expires: 03/01/2023[facility] Work Phone: Comment on above:Expected: 03/02/2022 (Approximate), Expires: 03/01/2023Start: 03-02-2022 End: 82-22-0643Qurhopbb [Mass/volume] in Serum or PlasmaFERRITIN BLD Lab Routine Severe protein-calorie malnutrition (HCC) Expected: 03/02/2022 (Approximate), Expires: 03/01/2023[facility] Work Phone: Comment on above:Expected: 03/02/2022 (Approximate), Expires: 03/01/2023Start: 03-02-2022 End: 11-51-5549Muqt and Iron binding capacity panel - Serum or PlasmaIRON + TIBC Lab Routine Severe protein-calorie malnutrition (HCC) Expected: 03/02/2022 (Approximate), Expires: 03/01/2023[facility] Work Phone: Comment on above:Expected: 03/02/2022 (Approximate), Expires: 03/01/2023Start: 03-02-2022 End: 31-52-4128Qpqtjlbww [Mass/volume] in Serum or PlasmaMAGNESIUM BLD Lab Routine Severe protein-calorie malnutrition (HCC) Expected: 03/02/2022 (Approximate), Expires: 03/01/2023[facility] Work Phone: Comment on above:Expected: 03/02/2022 (Approximate), Expires: 03/01/2023Start: 03-02-2022 End: 73-24-3523Zkafvpnhcvgbdu [Moles/volume] in Serum or PlasmaMETHYLMALONIC ACID Lab Routine Severe protein-calorie malnutrition (HCC) Expected: 03/02/2022 (Approximate), Expires: 03/01/2023[facility] Work Phone: Comment on above:Expected: 03/02/2022 (Approximate), Expires: 03/01/2023Start: 03-02-2022 End: 49-76-8026Uylxtxizd [Mass/volume] in Serum or PlasmaPHOSPHORUS INORGANIC Lab Routine Severe protein-calorie malnutrition (HCC) Expected: 03/02/2022 (Robert roximate), Expires: 03/01/2023[facility] Work Phone: Comment on above:Expected: 03/02/2022 (Approximate), Expires: 03/01/2023Start: 03-02-2022 End: 89-94-4027PO panel - Platelet poor plasma by Coagulation assayPROTHROMBIN TIME/PT Lab Routine Severe protein-calorie malnutrition (HCC) Expected: 03/02/2022 (Approximate), Expires: 03/01/2023[facility] Work Phone: Comment on above:Expected: 03/02/2022 (Approximate), Expires: 03/01/2023Start: 03-02-2022 End: 45-72-6131SMA FOLATERBC FOLATE Lab Routine Severe protein-calorie malnutrition (HCC) Expected: 03/02/2022 (Approximate), Expires: 03/01/2023 [facility] Work Phone: Comment on above:Expected: 03/02/2022 (Approximate), Expires: 03/01/2023Start: 03-02-2022 End: 30-54-2127Anunyxr [Mass/volume] in Serum or PlasmaVITAMIN A/RETINOL Lab Routine Severe protein-calorie malnutrition (HCC) Expected: 03/02/2022 (Approx imate), Expires: 03/01/2023[facility] Work Phone: Comment on above:Expected: 03/02/2022 (Approximate), Expires: 03/01/2023Start: 03-02-2022 End: 14-35-3929Kjdgzbgj [Mass/volume] in BloodSELENIUM BLOOD Lab Routine Severe protein-calorie malnutrition (HCC) Expected: 03/02/2022 (Approximate), Expires: 03/01/2023[facility] Work Phone: Comment on above:Expected: 03/02/2022 (Approximate), Expires: 03/01/2023Start: 03-02-2022 End: 00-52-4272Bdpkqofuqwmi [Mass/volume] in Serum or PlasmaTRIGLYCERIDES BLD Lab Routine Severe protein-calorie malnutrition (HCC) Expected: 03/02/2022 (Approximate), Expires: 03/01/2023[facility] Work Phone: Comment on above:Expected: 03/02/2022 (Approximate), Expires: 03/01/2023Start: 03-02-2022 End: 70-23-6414Simn [Mass/volume] in Serum or PlasmaZINC BLD Lab Routine Severe protein-calorie malnutrition (HCC) Expected: 03/02/2022 (Approximate), Expires: 03/01/2023[facility] Work Phone: Comment on above:Expected: 03/02/2022 (Approximate), Expires: 03/01/2023Start: 12-19-2021 End: 36-63-9969Cbxpqmn encounter jnelpayuj41/04/2022 Office Visit Psychiatry Robb Evans MD [address] [place] [address] [facility] GroupStart: 17-77-8088Mqtmtsgqs vaccinationOhioHealthStart: 09-19-2021 End: 34-21-7396Ioemewu encounter hvwaqjitj10/05/2022 Office Visit Psychiatry Robb Evans MD [address] [place] [address] [facility] GroupStart: 09-15-2021 End: 02-50-9251Hhittla encounter bvjebfpsh33/01/2022 Office Visit Psychiatry Robb Evans MD [address] [place] [address] [facility] GroupStart: 05-30-2021 End: 43-10-0625Byaidfc encounter /15/2022 Office Visit Psychiatry Robb Evans MD [address] [place] [address] [facility] Phys[facility] GroupStart: 20-14-9771NAULXVLFLX ASSESSMENTDEPRESSION ASSESSMENTSelect [facility]tart: 02-17-2021 End: 22-89-8974Tdkzgjv encounter kbfvsbsoj40/03/2021 Office Visit Robb Patton MD [address] [place] [address] [facility] GroupStart: 02-03-2021 End: 21-60-6788Tdwgvbz encounter waqabknwt35/19/2021 Office Visit Psychiatry Robb Evans MD [address] [place] [address] [facility] GroupStart: 55-11-0957Itztuapdu vaccinationOhioHealthStart: 10-28-2020 End: 06-82-6343Cahihba encounter nemjeohrd17/13/2021 Office Visit Robb Patton MD [address] [place] [address] [phone] [facility] Phys[facility] GroupStart: 25-35-9666Cfarrxwcppipjf of herpes zoster vaccineZoster Vaccines (1 of 2)[facility]: 2020 Screening for malignant neoplasm of colonMnioHealthStart: 28-50-5127TNSNNJJV VACCINE (1 of 2)SHINGRIX VACCINE (1 of 2)[facility]: 08-22-2020 End: 00-78-5307Ynncqebsrpzu consultation with yxptlul9808/22/2020 Telemedicine Psychiatry Robb Evans MD [facility] [place] [id number] [phone] [facility] Phys[facility] GroupStart: 10-07-2015 COLOGUARD (FIT-DNA)COLOGUARD (FIT-DNA)[facility]: 10-07-2015 ColonoscopyCOLONOSCOPYSelect [facility]tart: 89-69-1839RABJOCTNTP CANCER SCREENINGCOLORECTAL CANCER SCREENINGSelect [facility]tart: 16-00-7392KD COLONOGRAPHYCT COLONOGRAPHYSelect [facility]tart: 28-63-5499RCLFBFWD SCREEN DIABETES SCREENSelect Medical [facility]tart: 66-04-6948Jzqxidwt ScreeningDiabetes ScreeningSelect Medical [facility]tart: 15-44-8030PRUFB OCCULT BLOODFECAL OCCULT BLOOD [facility]: 22-38-5604Gkydh panelLipid ScreeningSelect [facility] Start: 50-95-7298UKJMQ SCREENLIPID SCREENSelect [facility]tart: 10-07-2015 Screening for malignant neoplasm of colonSelect [facility]: 10-07-2015 SIGMOIDOSCOPYSIGMOIDOSCOPYSelect Medical [facility]tart: 26-42-1323AZB TESTINGPAP TESTINGSelect Medical [facility]tart: 03-48-1280Kzpqmndpq for malignant neoplasm of cervixCervical Cancer ScreeningSelect Medical [facility]tart: 47-51-3126Migdpwrmmot MAMMOGRAMSelect Medical [facility]tart: 40-47-3249Wximufzxe for malignant neoplasm of breastOhioHealthStart: 92-22-1067Nwnondqgh mammographyMammogramOhioClermont County HospitalStart: 62-43-2082ABC TESTINGHPV TESTINGSelect [facility]: 33-79-3579Wxtnubyxu B Vaccine (1 of 3 - 19+ 3-dose series)Hepatitis B Vaccine (1 of 3 - 19+ 3-dose series)[facility]: 56-38-7826Vfrneihhwrxh Vaccine: 50+ (1 of 2 - PCV) Pneumococcal Vaccine: 50+ (1 of 2 - PCV)[facility]: 46-86-6289Upyjf microalbumin profileSelect Medical [facility], [facility]tart: 54-29-3081Zghrgyr ScreeningAnxiety ScreeningSelect Medical [facility]tart: 13-56-7445Argzgvieim ScreeningDepression ScreeningSelect [facility]tart: 77-57-4004Fvxyeklnu C screeningHepatitis C ScreeningOhioHealthStart: 76-67-7887HDU SCREENINGHIV SCREENINGSelect [facility] Start: 28-46-3967CIZ screeningHIV ScreeningSelect Medical [facility]tart: 1986 COVID-19 Vaccine (1)COVID-19 Vaccine (1)OhioClermont County HospitalStart: 48-11-7655ICA screening HIV ScreeningOhioHealthStart: 38-41-4450ZQKSW-19 Vaccine (1)COVID-19 Vaccine (1) [facility]: 62-98-6509WZDOMDLDRHIQ (1 - PCV)PNEUMOCOCCAL (1 - PCV)[facility]: 28-26-2188Dqjbypdqhvqa Vaccine: Ped or At-Risk (1 - PCV) Pneumococcal Vaccine: Ped or At-Risk (1 - PCV)OhioHealthStart: 1976 Pneumococcal Vaccine: Ped or At-Risk (1 of 2 - PPSV23)Pneumococcal Vaccine: Ped or At-Risk (1 of 2 - PPSV23)OhioHealthStart: 52-55-7015Fcqvkstyodjg Vaccine: Ped or At-Risk (1 of 4 - PCV13)Pneumococcal Vaccine: Ped or At-Risk (1 of 4 - PCV13)MissouriHealthStart: 63-40-9371LWHZS-19 Vaccine (1)COVID-19 Vaccine (1) [facility]: 23-18-8502Avuvloc and physical examination, annual for [facility] VisitOhioHealthStart: 22-58-9651ZNXUQ-19 Vaccine (#1)COVID- 19 Vaccine (#1)OhioHealthStart: 27-39-5169ZBPTECAPI B (1 of 3 - 3-dose series) HEPATITIS B (1 of 3 - 3-dose series)[facility]: 33-24-9663Aqcifkcuw for malignant neoplasm of cervixPap SmearOhioHealthStart: 01-04-8992Bmlmybzbh for malignant neoplasm of colonOhioHealthStart: 89-51-0183Zncakccfc mammography MammogramOhioHealthStart: 85-80-4874Hhpcnbe vaccinationTetanus: Every 10yrs [facility] End: 45-56-1734Zpwisuitnkcni metabolic 2000 panel - Serum or PlasmaComprehensive Metabolic Panel Lab Routine Generalized anxiety disorder Long-term use of high- risk medication Bipolar 1 disorder, mixed, mild (HCC) 1 Occurrences starting 09/19/2021 until 09/19/2022OhioHealthComment on above:1 Occurrences starting 09/19/2021 until 09/19/2022 End: 51-74-3793Vh abdomen & pelvis w/contrast materialCT ENTEROGRAPHY W IVCON Radiology Routine 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) Weight loss 1 Occurrences starting 03/02/2022 until 04/01/2023 [facility] Work Phone: Comment on above:1 Occurrences starting 03/02/2022 until 04/01/2023 End: 82-02-0726GTZ DIAGNOSTICEGD DIAGNOSTIC Endoscopy Routine Nausea and vomiting, unspecified vomiting type Left upper quadrantabdominal pain 1 Occurrences starting 12/15/2021 until 12/15/2022[facility] Work Phone: comment on above:1 Occurrences starting 12/15/2021 until 12/15/2022 End: 90-77-6856KXGRSNLGUMWKHFWBNNMLKU Endoscopy Routine 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)1 Occurrences starting 03/02/2022 until 03/02/2023[facility] Work Phone: Comment on above:1 Occurrences starting 03/02/2022 until 03/02/2023FAT, FECAL QUALFAT, FECAL QUAL Lab Routine Weight loss Ordered: 01/05/2022[facility] Work Phone: comowzf on above:Ordered: 01/05/2022 End: 89-07-8922Gtnyaag emptying imaging studyNM GASTRIC EMPTYING SOLID Radiology Routine Nausea 1 Occurrences starting 01/05/2022 until 02/04/2023[facility] Work Phone: comulfv on above:1 Occurrences starting 01/05/2022 until 02/04/2023 End: 01-70-9354Bp imag intraluminal esophagus-ileum w/i&rCAPSULE ENDOSCOPY SMALL BOWEL Endoscopy Routine Small bowel polyp 1 Occurrences starting 01/05/2022 until 3C[facility] Work Phone: comment on above:1 Occurrences starting 01/05/2022 until 01/05/2023 End: 81-91-5135Fyomd 1996 panel - Serum or PlasmaLipid Panel Lab Routine Generalized anxiety disorder Long-term use of high-risk medication Bipolar 1 disorder, mixed, mild (HCC) 1 Occurrences starting 09/19/2021 until 09/19/2022 [facility]:1 Occurrences starting 09/19/2021 until 09/19/2022 PANC ELASTASE, FECALPANC ELASTASE, FECAL Lab Routine Weight loss Ordered: 2C[facility] Work Phone: comment on above:Ordered: 01/05/2022 End: 45-15-4626Yilmiavio [Mass/volume] in Serum or PlasmaProlactin Lab Routine Generalized anxiety disorder Long-term use of high-risk medication Bipolar 1 d isorder, mixed, mild (HCC) 1 Occurrences starting 09/19/2021 until 09/19/2022 [facility] Work Phone: Comment on above:1 Occurrences starting 09/19/2021 until 09/19/2022 End: 34-53-7427Thbjqvbspq exam chest 2 viewsXR CHEST 2V FRONTAL/LAT Radiology Routine Weight loss 1 Occurrences starting 03/02/2022 until 4C[facility] Work Phone: Comment on above:1 Occurrences starting 03/02/2022 until 04/01/2023[facility] Work Phone: Comment on above:Release Upon Ordering for 1 Occurrences starting 01/01/2022, 1 completedSURGICAL PATHOLOGYSouthwest General Health Center Work Phone: Comdnxl on above:Release Upon Ordering for 1 Occurrences starting 04/04/2022, [facility] Immun[facility] Immunization DateImmunizationNotesCare ChhntdnhSbgxsiiz26-61-9836dtxnklm toxoid, reduced diphtheria toxoid, and acellular pertussis vaccine, adsorbedMohamad Mouchli [phone]-GoxwqHol[facility] Hospital [facility] Rashaun NEGATED: Highlighted row has not occurred!55-06-5851mfxhdbjwu virus vaccine, unspecified formulationMohamad Mouchli [phone]-XtcguHolzer Hospital Digestive HealthNEGATED: Highlighted row has not occurred!21-22-6166ukrfidztc virus vaccine, unspecified formulationJohn Astrid [phone]-ReumiHolzer Hospital [facility]al Health Payers DatePayer CategoryPayerPolicy [id number]-[id number] 2017Medicaid [id number] 2.840.1.995752.3.57[id number] 2.840.1.215739.3.57[id number] 2.840.1.488035.3.57[id number] 2.840.1.718925.3.57[id number] 2.840.1.732788.3.57[id number] 2.840.1.065681.3.579.2.16132-13-7660Ihytlax7025105 2.16840.1.957978.3.57[id number] 2.16840.1.487962.3.579.2.69593-00-2351Kotuvtf9640651 2.840.1.358461.3.579.2.75890-59-8127Mcinqoj3347138 2.840.1.460017.3.579.2.39142-47-1843Lylaxpa4179288 2.840.1.426924.3.579.2.66523-88-1582Pcybumo4565517 2.0.1.920982.3.579.2.27097-54-3060Zmalvir9349465 2.0.1.331934.3.579.2.79817-38-0184Bvuoxcg0535526 2..1.544497.3.579.2.99869-56-9982Fbvcaaq35546405 2..1.390335.3.579.2.32540-35-0278Tobzurq41553757 2.0.1.631471.3.579.2.48279-83-5412Iarwlia71200937 2..1.716460.3.579.2.05717-51-3855Wgdawgz10338912 2..1.121121.3.579.[id number] 2..1.204390.3.579.2.08522-98-4757Roljhgg54825252 2..1.717513.3.57[id number] 2.0.1.110232.3.579.2.96661-68-2597Ulouzwa28811835 2.0.1.119538.3.579.2.32686-55-2876Pqhslza91001584 2.16.840.1.066771.3.579.[id number] 2..0.1.650690.3.57[id number] 2..840.1.364609.3.579.2.30147-68-0640Zzlwlmi60118374 2.0.1.732866.3.579.2.07523-21-0969Sunuxqz88642400 2.840.1.951694.3.579.2.31247-36-5968Wedfajb1156330034049-22-5979Xiantlq [id number] 2.840.1.338545.3.579.2.531 Social History DateTypeDetailFacilityStart: 07-18-2020 End: 04-47-2765Gdmcpql smoking status NHISCurrent every day smokerOhioHealth Start: 07-18-2020 End: 87-92-3608Ycayfwl use and exposureNever usedOhioHealthStart: 07-18-2020 End: 27-04-7864Crbbeen intakeEx-drinker (finding)MissouriHealthStart: 50-27-6435Xen Assigned At BirthNot on fileOhioHealthStart: 09-09-2021 End: 74-71-4425Brwpqwyl to SARS-CoV-2 (event)Not sureOhioHealthStart: 12-03-2021 End: 91-45-9129Lncmmxrd to SARS-CoV-2 (event)Unable to assessOhioHealthStart: 06-10-2021 End: 75-96-3884Ktsxbuob to SARS-CoV-2 (event)YesOhioHealthTobacco smoking status NHISTobacco smoking consumption unknownSelect Medical [facility]tart: 63-19-6119Yei Assigned At BirthFemaleCleveland ClinicHistory of tobacco useCigarette Smoker [facility]: 01-01-2022 End: 36-38-3459Bjejvdbbmv smoked current (pack per day) - Reported0.5[facility] ClinicHistory of tobacco usePassive smokerSelect Medical [facility]tart: 09-24-2023 End: 45-80-1827Bttswww smoking statusEx-smoker (finding)[facility] HospitalComment on above:quit smoking April 2023Start: 04-04-2022 End: 96-37-9835Llf Assigned At BirthFemalSouthwest General Health Centertart: 01-16-2024 End: 07-48-3776Zjrsxye smoking statusLight tobacco smoker (finding)[facility] Digestive HealthStart: 38-09-3261Jkhdeqj smoking statusNever [facility] HealthStart: 49-84-9017OrvXgpyjz (finding) [facility]: 14-38-4344Tqrulb identityIdentifies as female gender (finding)[facility]: 36-34-5793Rriumr orientation Heterosexual (finding)[facility] Functional Status WpmsSguuwsjskdEhbybbCmlhsadi49-80-4600Oxiipjrsww StatusN/[facility] Wsrzsf11-31-1230Wlgqwnzbio StatusN/[facility]12-06-2024Functional StatusN/[facility] 02-48-3876Czzpyqknlx StatusN/[facility] 41-23-7997Phsqgucolq StatusN/[facility] Clinical Notes 07-20-2020 to 02-25-2024 Note Date & XzpkDyxlIzlxdskl43-69-0007 Evaluation + Plan noteExtracted from: Title:ANES Post-operative Note---GeneralAuthor:Dakota Rivas MDDate:02/25/24 Plan Transfer/Discharge: Transfer/Discharge Discharge when meets criteria ( To home ). Extracted from:Title:TANISHA Pre-operative Note uthor:Dakota Rivas MDDate: 02/25/24 Plan [place] [employer] (ASA) physical status classification: Class III. Anesthetic Preoperative Plan: Anesthesia General. Future Scheduled Tests Laboratory* Giardia lamblia, Direct Detection EIA 11/26/23 * O & P Exam, Routine 11/26/23 * Rotavirus Ab 11/26/23 * Clostridium Difficile PCR 11/26/23 Radiology* CT Abdomen/Pelvis w/contrast (enterography) 01/30/24 * XR Small Bowel w/ Serial Films 02/10/24 [facility] 12-10-2024 Hospital Discharge instructions Patient Education [...] hard liquor (44 mL). General instructions Take evbb-vmq-ywngdyv and prescription medicines only as told by [...] provider. Document Revised: 06/22/2020 Document Reviewed: 06/22/2020 [employer] Patient Education 2023 [employer]. 02/25/2024 11:02:55 Hiatal Hernia Hiatal Hernia A [...] reduce GERD symptoms. Medicines. These may include: ?Vwho-tfa-gcqrhip antacids. ?Medicines that make your stomach empty [...] may include: ?Fatty foods, like fried foods. ?Morris fruits, like oranges or lemon. ?Other foods [...] Do not drink alcohol. General instructions Take cqwk-gxj-cclddkw and prescription medicines only as told by [...] provider. Document Revised: 05/01/2022 Document Reviewed: 05/01/2022 [employer] Patient Education 2023 [employer]. 02/25/2024 11:02:51 Gastritis, Adult, Fyag-yj-Ztpc Gastritis, Adult Gastritis is irritation and swelling [...] Follow these instructions at home: Medicines Take ncvq-zuk-wxxdstf and prescription medicines only as told by [...] away. Call your local emergency services (911 inthe [place] Do not wait to see if [...] provider. Document Revised: 07/08/2021 Document Reviewed: 07/08/2021 [employer] Patient Education 2023 [employer]. 02/25/2024 11:02:46 Endoscopy, Care After Procedure [facility] Endoscopy Care After Procedure Please read the instructions outlined below and refer to this sheet in the next few weeks. These discharge instructions provide you with general information on caring for yourself [facility] Your doctor may also give you specific [...] Document Re-Released: 08/26/2006 [employer]Care Patient Information 2009 [employer]. [facility] [id number] NoteProgress Note-Physician Patient: SAI PINEDA Age: 53 years Sex: Female : 1970 Associated Diagnoses: None Author: Dakota Rivas MD Postoperative Information Postoperative disposition: Postoperative disposition: To PACU. Optimetrix number: Optimetrix number [id number]. Anesthetic utilized: General. Health Status Allergies: Allergic [...] when meets criteria ( To home ).[facility]Comment [facility]:Result Comment: Electronically Signed By: [...] blood. Document Released: 10/16/2004 Document Re-Released: 08/26/2006 [employer]ise??? Patient Information ???2009 [employer]. Gastroenterology Hiatal Hernia A hiatal hernia occurs [...] symptoms. ??? Medicines. These may include: ? Cmok-fkm-yolevoz antacids. ? Medicines that make your stomach [...] health care provide (more content not included)...[facility]12-10-[facility]24 NoteProgress Note-Physician Patient: SAI PINEDA Age: [...] 56 tab(s), Refills(s) 0, Pharmacy: [facility]/pharmacy #[id number], 169, cm, 02/21/24 8:47:00 EST, Height/Length Dosing, 62.2, kg, 02/21/24 8:47:00 EST, Weight Dosing Questran 4 g/9 g oral powder: = 1 packet(s), Oral, BID, # 60 EA, Refills(s) 2, [id number], cm, 01/16/24 10:14:00 EDT, Height/Length Dosing, 63.9, kg, 01/16/24 10:14:00 EDT, Weight Dosing Spiriva Respimat 60 ACT 2.5 mcg/inh inhalation aerosol: = 2 inh, Inhalation, Daily, # 4 gm, Refills(s) 11, [id number], 169.7, cm, 11/26/23 15:32:00 EDT, Height/Length Dosing, 62.1, kg, 11/26/23 15:32:00 EDT, Weight Dosing Zofran 4 mg Tab: 4 mg = 1 tab(s), Oral, q8hr, PRN Nausea, # 10 tab(s), Refills(s) 0, [id number], 173, cm, 04/26/20 13:07:00 EST, Height/Length Dosing, 52.8, kg, 04/26/20 13:07:00 EST, Weight Dosing Zofran ODT 4 mg Tab-Dis: 4 mg = 1 tab(s), Oral, TID, # 15 tab(s), Refills(s) 0, [id number], 172, cm, 09/24/23 13:02:00 EDT, Height/Length Dosing, 61.2, kg, 09/24/23 13:02:00 EDT, Weight Dosing Zofran ODT 8 mg Tab-Dis: 8 mg = 1 tab(s), SubLingual, q8hr, PRN Nausea/Vomiting, # 24 tab(s), Refills(s) 0, [id number], 169, cm, 01/16/24 10:14:00 EDT, Height/Length Dosing, 63.9, kg, 01/16/24 10:14:00 EDT, Weight Dosing cloNIDine 0.2 mg Tab: 0.2 mg = 1 tab(s), Oral, Bedtime, # 30 tab(s), Refills(s) 1, [id number], 173, cm, 05/24/20 14:42:00 EST, Height/Length Dosing, 50.1, kg, 05/24/20 14:42:00 EST,Weight Dosing colestipol 1 g Tab: 2 gm = 2 tab(s), Oral, BID, with a full glass of water, # 120 tab(s), Refills(s) 1, [id number], 169, cm, 01/16/24 10:14:00 EDT, Height/Length Dosing, 63.9, kg, 01/16/24 10:14:00 EDT, Weight Dosing hydrOXYzine hydrochloride 50 mg oral tablet: 50 mg = 1 tab(s), Oral, TID, PRN as needed for anxiety, # 30 tab(s), Refills(s) 0, [id number], 173, cm, 04/26/20 13:07:00 EST, Height/Length Dosing, 52.8, kg, 04/26/20 13:07:00 EST, Weight Dosing lamotrigine 25 mg Tab: See Instructions, TAKE 1 TABLET BY MOUTH EVERY DAY IN THE AFTERNOON, # 30 tab(s), Refills(s) 0, Pharmacy: [facility] [id number], 169.7, cm, 11/26/23 15:32:00 EDT, Height/Length Dosing, 62.1, kg, 11/26/23 15:32:00 EDT, Weight Dosing mirtazapine 7.5 mg oral tablet: 7.5 mg = 1 tab(s), Oral, Bedtime, # 30 tab(s), Refills(s) 0, [id number], 169.7, cm, 10/03/23 9:38:00 EDT, Height/Length Dosing, 62.5, kg, 10/03/23 9:38:00 EDT, Weight Dosing omeprazole 20 mg Cap-DR: See Instructions, TAKE 1 CAPSULE BY MOUTH EVERY DAY, # 30 cap(s), Refills(s) 0, Pharmacy: [facility], 169, cm, 02/21/24 8:47:00 EST, Height/Length Dosing, 62.2, kg, 02/21/24 8:47:00 EST, Weight Dosing ondansetron 4 mg Dis Tab: 4 mg = 1 tab(s), Oral, q6hr, PRN Nausea/Vomiting, # 30 tab(s), Refills(s)0, [id number], 169.7, cm, 11/26/23 15:32:00 EDT, Height/Length Dosing, 62.1, kg, 11/26/23 15:32:00 EDT, Weight Dosing ondansetron 8 mg Dis Tab: See Instructions, DISSOLVE 1 TABLET ON THE TONGUE EVERY 8 HOURS NEEDEDFOR NAUSEA AND VOMITING, # 24 tab(s), Refills(s) 0, [id number], 169, cm, 02/17/2411:55:00 EST, Height/Length Dosing, 61.8, kg, 02/18/24 11:55:00 EST, Weight D... promethazine 25 mg Tab: 25 mg = 1 tab(s), Oral, TID, # 15 tab(s), Refills(s) 0, Pharmacy: [facility] #6177, 169, cm, 01/16/24 10:14:00 EDT, Height/Length Dosing, 63.9, kg, 01/16/24 10:14:00 EDT, Weight Dosing promethazine 25 mg Tab: See Instructions, TAKE 1 TABLET BY MOUTH THREE TIMES A DAY, # 30 tab(s), Refills(s) 1, Pharmacy: [facility] #[id number], 169, cm, 02/18/24 11:55:00 EST, Height/Length Dosing, 61.8, kg, 02/18/24 11:55:00 E (more content not included)...[facility]Result Comment: Electronically Signed By: Rob SANDOVAL, Dakota Shoemaker\.br\Date and Time Signed: 02/25/24 10:18 [id number] Evaluation + Plan note Future Scheduled Tests Laboratory* Giardia lamblia, Direct Detection EIA 11/26/23 * O & P Exam, Routine 11/26/23 * Rotavirus Ab 11/26/23 * Clostridium Difficile PCR 11/26/23 Radiology* XR Small Bowel w/ Serial Films 02/10/24 [facility] 09-10-2024 Evaluation + Plan note Future Scheduled Tests Laboratory* Giardia lamblia, Direct Detection EIA 11/26/23 * O & P Exam, Routine 11/26/23 * Rotavirus Ab 11/26/23 * Clostridium Difficile PCR 11/26/23 Radiology* CT Abdomen/Pelvis w/contrast (enterography) 01/30/24 * XR Small Bowel w/ Serial Films 02/10/24 [facility] 07-09-2024 Hospital Discharge instructions [...] Treatment for this condition includes: Antibiotic medicine. Etds-fzx-qkvzvri medicines to treat discomfort. Drinking enough water [...] Follow these instructions at home: Medicines Take nrfm-ync-xelfran and prescription medicines only as told by [...] provider. Document Revised: 10/14/2020 Document Reviewed: 10/14/2020 [employer] Patient Education 2022 [employer]. Follow Up Care 09/24/2023 12:53:04 With:CHANCE SERRANO Address: [address] [place] [phone] Business (1) When:09/27/2023 15:19:10 [facility]07-09-2024 Evaluation + Plan note Diagnostic Tests Pending * Urine Culture 09/24/23 [facility]02-21-2023 Miscellaneous Notes* Telephone Encounter - Eva Chong - 05/08/2022 10:40 AM EST 05/08/22 Patient calling to see if Dr Moraels will write her a script for Zofran nausea medication strips. [phone] Eva documented in this encounterSelect Medical [facility]-2023 NoteHNO ID: [id number] Author: Tiffani Morales MD Service: ? Author [...] Tiffani Morales MD 04/24/2022 11:19 AM Staff Charge Weigher, [facility] [place] PRIMARY PROBLEM: small bowel tumor, severe malnutrition [...] clips were successfully placed (MR conditional). 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 There was no bleeding at the end [...] patient, physical examination, documentation, and co-ordination of care.[facility]02-07-2023 History of Present illness Narrative* [...] Tiffani Morales MD 04/24/2022 11:19 AM Staff Charge Weigher, Digestive Disease & Surgery [place] PRIMARY PROBLEM: small bowel tumor, severe malnutrition [...] clips were successfully placed (MR conditional). 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 There was no bleeding at the end [...] co- ordination of care. documented in this encounterSelect Medical [facility]01-19-2023 Miscellaneous Notes* Telephone Encounter - Eva Chong - 04/05/2022 9:29 AM EST 04/05/22 Patient wants tow know if y script you can send her script for ZOFRAN, under the tongue tablets. For nausea. Eva documented in this encounterSelect Medical [facility]01-18-2023 NoteHNO ID: [id number] Author: Frederick Chaves APRN.SOCIAL MEDIA SR STRATEGY MANAGER Service: ? Author Type: Nurse Securities Dealer Type: Anesthesia Procedure Notes Filed: 04/04/2022 1:55 PM Note Text: ANESTHESIOLOGY PROCEDURE NOTE Airway General Information Procedure Start Time/Medication Administration: 04/04/2022 1:38 PM Patient location during procedure: OR Timeout Performed Pre-procedure: timeout performed Consent Obtained: Yes Patient identity confirmed: arm band Staffing SOCIAL MEDIA SR STRATEGY MANAGER: Frederick Chaves APRN.SOCIAL MEDIA SR STRATEGY MANAGER Performed by: SOCIAL MEDIA SR STRATEGY MANAGER Indications and Patient Condition Indications for airway management: anesthesia Preoxygenated: yes anesthesia circuit Patient position: sniffing Method: asleep Cricoid Pressure: No Difficult Mask: No Final Airway Details Final airway type: endotracheal airway Final Endotracheal Airway: ETT Cuffed: yes Successful intubation technique: video laryngoscopy Devices used: BEKIZ Endotracheal tube insertion site: oral Blade: [place] Blade size: #3 ETT size (mm): 7.0 Measured from: lips Measurement (cm): 21 Placement verified by: capnometry Cormack-Lehane Classification: grade I - full view of glottis Number of attempts at approach: 1 Airway not difficult SIGNATURE: Frederick Chaves APRN.SOCIAL MEDIA SR STRATEGY MANAGER PATIENT NAME: Sai Pineda DATE: April 04, 2022 TIME: 1:54 PM CSN: [id number]-18-2023 NoteHNO ID: [id number] Author: Frederick Chaves APRN.SOCIAL MEDIA SR STRATEGY MANAGER Service: ? Author Type: Nurse Securities Dealer Type: Anesthesia Procedure Notes Filed: 04/04/2022 1:51 PM Note Text: ANESTHESIOLOGY PROCEDURE NOTE PIV General Information Procedure Start Time/Medication Administration: 04/04/2022 1:26 PM Patient Location: OR Staffing SOCIAL MEDIA SR STRATEGY MANAGER: Frederick Chaves APRN.SOCIAL MEDIA SR STRATEGY MANAGER Performed by: SOCIAL MEDIA SR STRATEGY MANAGER Preparation Sterility Preparation: hand hygiene performed prior to procedure, surgical cap used, mask used, skin prep agent completely dried prior to procedure Site Prep: alcohol Procedure Details Indication: need for IV access Needle Size/Type: 22 gauge angiocath Orientation: Right Location: Foot Imaging Guidance Used: No SIGNATURE: Frederick Chaves APRN.CRNA PATIENT NAME: Sai Pineda DATE: April 04, 2022 TIME: 1:49 PM CSN: [id number] [facility]01-18-2023 Nurse Note* Eduardo Harrington RN - 04/04/2022 [...] RN In Department: GASTROENTEROLOGY documented in this encounterSelect Medical Cleveland Clinic [facility]01-18-2023 NoteQ3 Patient Name: Sai Pineda Procedure Date: [...] clips were successfully placed (MR conditional). 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 There was no bleeding at the end of the maneuver. Exam of the jejunum was otherwise normal. Impression: - Atrophic mucosa. - Jejunal polyp(s). Resected and retrieved. Tattooed. Clips (MR conditional) were placed. Clip continuous still operator: [facility]. Estimated Blood Loss: Estimated blood loss was minimal. Recommendation: - Await pathology results. - Resume previous diet. - Continue present medications. - Return to endoscopist at the next available appointment. Procedure Code(s): --- Professional --- 52973, Small intestinal endoscopy, enteroscopy beyond second portion of duodenum, not including ileum; with removal of tumor(s), polyp(s), or other lesion(s) by snare technique 77029, Unlisted procedure, small intestine Diagnosis Code(s): --- [...] Number of Addenda: 0 (more content not included)...[facility] 04-04-2022 History and physical note* [...] DATE: 04/04/2022 TIME: 1302 documented in this encounterSelect Medical [facility]01-11-2023 Miscellaneous Notes* Telephone Encounter - Eduardo Harrington RN - 03/28/2022 3:50 PM EST Attempted to reach the patient at the contact number that they provided [phone] (home) . Unable to speak with patient so without identifying the patient the following information was left on their voice mail: Date of procedure, location and report time A message was left informing the patient/patient technical sales representatives they must have a responsible adult accompany [...] Number to call with questions or concerns [phone] Number to call to cancel their procedure [phone] Eduardo Harrington RN documented in this encounterSelect Medical [facility]12-27-2022 Note* Addendum Note - Robb Evans MD - 03/13/2022 3:44 PM ESTAddended by: ROBB EVANS on: 03/13/2022 03:44 PM Modules accepted: Orders [id number] Miscellaneous Notes* Addendum Note - Robb Evans MD - 03/13/2022 3:44 PM ESTAddended by: ROBB EVANS on: 03/13/2022 03:44 PM Modules accepted: Orders * Addendum Note - Gokul Montoya MA - 03/13/2022 3:37 PM ESTAddended by: GOKUL MONTOYA on: 03/13/2022 03:37 PM Modules accepted: Orders documented in this [id number] Note* Addendum Note - Gokul Montoya MA - 03/13/2022 3:37 PM ESTAddended by: GOKUL MONTOYA on: 03/13/2022 03:37 PM Modules accepted: Orders [id number] Note* Addendum Note - Gokul Montoya MA - 03/13/2022 3:37 PM ESTAddended by: GOKUL MONTOYA on: 03/13/2022 03:37 PM Modules accepted: Orders [id number] Miscellaneous Notes* Addendum Note - Gokul Montoya MA - 03/13/2022 3:37 PM ESTAddended by: GOKUL MONTOYA on: 03/13/2022 03:37 PM Modules accepted: Orders documented in this [id number] NoteHNO ID: [id number] Author: Tiffani Morales MD Service: ? Author [...] Tiffani Morales MD 03/01/2022 11:19 AM Staff Charge Weigher, Digestive Disease AND Surgery [place] PRIMARY PROBLEM: small bowel tumor, severe malnutrition [...] patient, physical examination, documentation, and co-ordination of care.[facility]12-15-2022 History of Present illness Narrative* [...] Tiffani Morales MD 03/01/2022 11:19 AM Staff Charge Weigher, Digestive Disease & Surgery [place] PRIMARY PROBLEM: small bowel tumor, severe malnutrition [...] co- ordination of care. documented in this encounterSelect Medical [facility]12-02-2022 NoteHNO ID: [id number] Author: Anastasiya Mosqueda PA-C Service: ? Author Type: Physician Cotton Bag Clipper Type: Progress Notes Filed: 02/16/2022 5:07 PM Note Text: Orders placedLakehealth [facility]point [facility] Center11-21-2022 NoteHNO ID: [id number] Author: RT Fabiana(R) Service: Nuclear Medicine Author [...] [address] PERFORMED: No IV SITE: [place] only - not applicable, oral or physician administered agents given to patient POST EXAM PIV STATUS: Discontinued PROCEDURE TYPE: NM GET: 1 mCi Tc99m SULFUR COLLOID was administered orally via 4 ounces of Egg Beaters,2 pieces of toast, 1 ounce of jelly with 8 ounces of water orally ADMINISTRATION TIME: 08:15 PATIENT DISCHARGED TO: Ambulatory patient, left [place] department area. A Diagnostic radioactive procedure has taken place, with no further precautions necessary other than routine body substance precautions. More information regarding radiation safety can be found using this link: [email or web address] SIGNATURE: RT Fabiana(R) PATIENT NAME: Sai Pineda DATE: February 05, 2022 TIME: 10:16 AM PAGER/CONTACT #:[facility]11-14-2022 NoteHNO ID: [id number] Author: Dolores Lopez RN Service: ? Author Type: Registered Nurse Type: Progress Notes Filed: 02/01/2022 4:29 PM Note Text: Summary: capsule endoscopy small bowel Capsule endoscopy small bowel ingested without difficulty @ 1300 on 01-29-2022. Therese Lopez RN [id number] MFW PTF G [id number] Capsule Endoscopy Post Ingestion Patient Information Do [...] cell phones, computers, remote TV appliances, microwaves, [employer] players and digital cameras. Because the capsule endoscopy equipment is somewhat ominous in appearance, we recommend you avoid the airport, bank and [employer] buildings. Many [employer] use a similar technology for security, it [...] hours you may call: HERNÁN Salvador RN [phone] After Business hours: [phone] and ask for GI Chxocp-Vv-IfvIyegjyphbSelect [facility]11-14-2022 History of Present illness Narrative* Dolores Lopez RN - 01/29/2022 1:17 PM ESTSummary: capsule endoscopy small bowel Capsule endoscopy small bowel ingested without difficulty @ 1300 on 01-29-2022. Therese Lopez RN [id number] MFW PTF G [id number] Capsule Endoscopy Post Ingestion Patient Information Do [...] on thebox for return to the main [place]. Place the box in the closest [employer] [...] hours you may call: HERNÁN Salvador RN [phone] After Business hours: [phone] and ask for GI Kzfywp-Ii-Qbo documented in this encounterSelect Medical [facility]10-21-2022 Miscellaneous Notes* Telephone Encounter - Tiffani Morales [...] Morales MD 01-05-2022 17:51 documented in this encounterSelect Medical [facility]10-21-2022 NoteHNO ID: [id number] Author: Anastasiya Mosqueda PA-C Service: ? Author Type: Physician Cotton Bag Clipper Type: Progress Notes Filed: 01/05/2022 2:24 PM Note Text: Per discussion with Dr. Morales, GES, Small bowel capsule study, Fecal fat qual and pancreatic elastase stool studies orders placed. Discussed plan with patient. [facility] History of Present illness Narrative* Anastasiya Mosqueda PA-C - 01/05/2022 2:13 PM EDT Per discussion with Dr. Morales, GES, Small bowel capsule study, Fecal fat qual and pancreatic elastase stool studies orders placed. Discussed plan with patient. Anastasiya Mosqueda PA-C documented in this encounterSelect Medical [facility]10-21-2022 Miscellaneous Notes* Telephone Encounter - Anastasiya Mosqueda [...] testing. Anastasiya Mosqueda PA-C documented in this encounterSelect Medical [facility]10-19-2022 Miscellaneous Notes* Telephone Encounter - Anastasiya Mosqueda PA-C - 01/03/2022 10:17 AM EDT EGD results discussed with patient as requested, pathology still pending. Will reach out to patientonce resulted. Red flags for in person care discussed. Anastasiya Mosqueda PA-C documented in this encounterSelect Medical [facility]10-18-2022 Miscellaneous Notes* Telephone Encounter - Leydi Dumontader - 01/02/2022 8:47 AM EDT Patient called to get results from her procedure. Please contact her at number listed in system. Thanks Leydi Henry Workleader documented in this encounterSelect Medical [facility]10-17-2022 Nurse Note* Juan Carlos Saucedo LPN - [...] RN In Department: GASTROENTEROLOGY documented in this encounterSelect Medical Cleveland [facility]10-17-2022 History and physical note * Tiffani Morales [...] NAME: Sai Freedovern DATE: 01/01/2022 TIME: 1600 documented in this encounterSelect Medical [facility]10-10-2022 Miscellaneous Notes* Telephone Encounter - Rima Gerard RN - 12/25/2021 8:26 AM EDT Patient scheduled incorrectly. Anesthesia not supposed to have 430 case. I called patient to see ifthey can come in early. She said she would call me back Rima Gerard RN documented in this encounterSelect Medical Cleveland Clinic [facility]09-30-2022 NoteHNO ID: [id number] Author: Anastasiya Mosqueda PA-C Service: ? Author Type: Physician Cotton Bag Clipper Type: Progress Notes Filed: 12/15/2021 4:32 PM Note Text: VIRTUAL VISIT NEW PATIENT NAME: Sai Pineda [facility] NO: [id number] DATE: 12/15/2021 REASON FOR VISIT Sai Pineda Grimes [id number] 1970 has requested a video telemedicine initial [...] abdominal rigidity Assessment IMPRESSION (more content not included)...[facility]09-30-2022 History of Present illness Narrative* Anastasiya Mosqueda PA-C - 12/15/2021 11:50 AM EDT VIRTUAL VISIT NEW PATIENT NAME: Sai Guerrero [facility] NO: [id number] DATE: 12/15/2021 REASON FOR VISIT Sai Guerrero [id number] 1970 has requested a video telemedicine initial [...] 15, 2021 11:51 AM documented in this encounterSelect Medical [facility]09-29-2022 NoteHNO ID: [id number] Author: Anastasiya Mosqueda PA-C Service: ? Author Type: Physician Cotton Bag Clipper Type: Progress Notes Filed: 12/14/2021 3:51 PM Note Text: Unable to connect to VV, called multiple times and left multiple VM's. Patient rescheduled for tomorrow.[facility]09-29-20[facility] History of Present illness Narrative* Anastasiya Mosqueda PA-C - 12/14/2021 10:52 AM EDT Unable to connect to VV, called multiple times and left multiple VM's. Patient rescheduled for tomorrow. documented in this encounterSelect Medical [facility]09-28-2022 Miscellaneous Notes* Telephone Encounter - Elizabeth Ricci - 12/13/2021 12:32 PM EDT Spoke to patient's daughter - she will contact the [email or web address] support line to assist with setting up patient's Mychart & assist with set up for virtual visit tomorrow morning Elizabeth Ricci * Telephone Encounter - Elizabeth Ricci - 12/13/2021 11:17 AM EDT Received a call from patient's health agency concerning virtual visit set up with you today at 11 - Patient has not registered for [employer] (having trouble accessing her email) & they want to knowif you will do a phone visit instead Was told this was an urgent request from the referring doctor's office - the visit was scheduled thru the Referring Physician office There are no records found for this patient & I attempted to pull records thru Care Everywhere Patient's phone [phone] Elizabeth Ricci documented in this encounterSelect Medical [facility]07-13-2022 History of Present illness Narrative* Robb Evans MD - 09/27/2021 10:19 AM EDT Prolactin Level Elevated at 146. Will add Abilify 5 mg daily to address that. Pt informed. Pt is denying breast tenderness or documented in this [id number] History of Present illness Narrative* Robb Evans MD - 09/19/2021 2:19 PM EDT BEHAVIORAL HEALTH PSYCHIATRIC PROGRESS NOTE Reason for visit: Psychotropic medication management 09/19/2021 Patient is seen alone in his office for psychotropic medication management. Patient reported they are moving to a new residence, in [place] same place they have been living in. [...] Testing: none Robb Evans documented in this [id number] History of Present illness Narrative* Robb Evans [...] Testing: none Robb Evans documented in this [id number] History of Present illness Narrative* Robb Evans MD - 03/01/2021 1:31 PM EST Telephone Visit Via Phone Call [facility] [address] ([address]) [facility] [address] [facility] [phone] [facility]phone Visit [facility] 03/01/2021 Robb Evans MD Provider Location: [facility] Patient Location Research Associate Professor: None Patient Location: Patient's Home Patient: [...] there are inherent diagnostic limitations compared to agjx-bf-khrg evaluations. We elected toproceed with the telephone [...] and Plan of Care. documented in this [id number] History of Present illness Narrative* Robb Evans MD - 08/22/2020 3:27 PM EDT Telephone Visit Via Phone Call [facility] [phone] Telephone Visit [facility] 08/22/2020 Robb Evans MD Provider Location: [facility] Patient Location Research Associate Professor: None Patient Location: Patient's Home Patient: [...] there are inherent diagnostic limitations compared to tceg-wt-mugt evaluations. We elected toproceed with the telephone [...] and Plan of Care. documented in this [id number] History of Present illness Narrative* Robb Evans MD - 07/20/2020 11:29 AM EDT BEHAVIORAL HEALTH PSYCHIATRIC ASSESSMENT DOS: 07/18/3020 Reason for visit: Psychotropic management follow-up. Patient is here to reestablish care at my new location HPI: Patient is seen in office alone. [facility] Her working diagnosis is bipolar [...] had briefly seen a nurse practitioner in [place] after [place]. Patient reported she she is [...] PFSH: Past Medical History: Diagnosis Date Alcoholism ([facility]), in remission Anxiety Bipolar disorder ([facility]) Depression Drug abuse and dependence ([facility]) in remission Panic disorder Psychosis ([facility]) Social History Substance and Sexual Activity [...] XR Small Bowel w/ Serial Films 01/27/24 [facility] evaluation + Plan note Future Appointments Appointment Date:02/25/2024 11:00:00 AM Scheduled Provider: Location:[facility] Services Appointment Type:Surgery FT Future Scheduled Tests Laboratory* Giardia lamblia, Direct Detection EIA 11/26/23 * O & P Exam, Routine 11/26/23 * Rotavirus Ab 11/26/23 * Clostridium Difficile PCR 11/26/23 Radiology* CT Abdomen/Pelvis w/contrast (enterography) 01/30/24 * XR Small Bowel w/ Serial Films 02/10/24 [facility] evaluation note* Diagnosis Generalized [...] stress disorder (PTSD) documented in this encounter [facility] note* Diagnosis Bipolar 1 disorder, mixed, mild (HCC)- Primary Generalized anxiety disorder Long-term use of high-risk medication documented in this encounter [facility] note* Diagnosis APPOINTMENT CANCELLED- Primary documented in this encounter [facility] note* Diagnosis Nausea and vomiting, unspecified vomiting type- Primary Left upper quadrant abdominal pain Weight loss Loss of weight documented in this encounter [facility] note* Diagnosis Nausea and vomiting, unspecified vomiting type Left upper quadrant abdominal pain documented in this encounter [facility] note* Diagnosis Nausea- Primary Nausea alone Weight loss Loss of weight 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, jejunum, and ileum documented in this encounter [facility] note* Diagnosis Abdominal pain, unspecified abdominal location- Primary documented in this encounter [facility] note* Diagnosis Intestinal polyposis- Primary Benign neoplasm of colon documented in this encounter [facility] note* Diagnosis Severe protein-calorie malnutrition (HCC)- Primary Other severe protein-calorie malnutrition 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 Weight loss Loss of weight Severe malnutrition (HCC) 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 [facility] note* Diagnosis Generalized anxiety disorder documented in this encounter [facility] note* Diagnosis Generalized anxiety disorder documented in this encounter [facility] note* Diagnosis Generalized anxiety disorder documented in this encounter [facility] note* Diagnosis 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 documented in this encounter [facility] note* Diagnosis Generalized anxiety disorder documented in this encounter [facility] note* Diagnosis Severe malnutrition (HCC)- Primary 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 [facility] noteNo assessment information availableSelect [facility] [place] Work Phone: Evaluation note* Diagnosis Nausea- Primary Nausea alone Vomiting without nausea, unspecified vomiting type documented in this encounter [facility] course Narrative No data available for this section [facility] No data available for this section [facility] Progress note No data available for this section [facility] for referral (narrative)* Outpatient Procedure (Routine) - ClosedSpecialtyDiagnoses / ProceduresReferred By Contact Referred [facility] Diagnoses Nausea and vomiting, unspecified vomiting type Left upper quadrant abdominal pain Procedures EGD DIAGNOSTIC ESOPHAGOGASTRODUODENOSCOPY TRANSORAL DIAGNOSTIC Anastasiya Mosqueda PA-C [address] [place] [address] [place] [address] Referral IDStatusTeresaJohn Paul Jones Hospital DateExpiration DateVisits RequestedVisits [id number] Auto-Generated Referral [facility] for referral (narrative)* Outpatient Procedure (Routine) - Pending ReviewSpecialtyDiagnoses / ProceduresReferred By ContactReferred To [facility] Diagnoses Small bowel polyp Procedures CAPSULE ENDOSCOPY SMALL BOWEL GI TRC IMG INTRALUMINAL ESOPHAGUS-ILEUM W/I&R Anastasiya Mosqueda PA-C [address] [place] [address] [facility] [address] [place] [address] Referral IDStatSilveriodallin DateExpiration DateVisits RequestedVisits [id number] Review Auto-Generated Referral * Diagnostic Procedure Only (Routine) - Pending ReviewSpecialtyDiagnoses / ProceduresReferred By ContactReferred To [facility] Diagnoses Nausea Procedures NM GASTRIC EMPTYING SOLID GASTRIC EMPTYING STUDY Anastasiya Mosqueda PA-C [address] [place] [address] Molecular & Functional Imaging [address] [place] [address] Referral IDStatusReasonStart DateExpiration DateVisits RequestedVisits [id number] Review Auto-Generated Referral / [facility] for referral (narrative)* Outpatient Procedure (Routine) - Pending ReviewSpecialtyDiagnoses / ProceduresReferred By ContactReferred To [facility] Diagnoses 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) Procedures ENTEROSCOPY ENDOSCOPY UPPER SMALL INTESTINE Tiffani Morales MD [address] [place] [address] [facility] [place] [address] [place] [address] Referral IDStatusReasonStart DateExpiration DateVisits RequestedVisits [id number] Review Auto-Generated Referral / * MRI/CT (Routine) - Pending ReviewSpecialtyDiagnoses / ProceduresReferred By ContactReferred To [facility] Diagnoses 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) Weight loss Procedures CT ENTEROGRAPHY W IVCON CT ABD & PELVIS W/CONTRAST Tiffani Morales MD [address] [place] [address] Ct Imaging Referral IDStatusReasonStart DateExpiration DateVisits RequestedVisits [id number] Review Auto-Generated Referral / [facility] for referral (narrative)* Outpatient Procedure (Routine) - ClosedSpecialtyDiagnoses / ProceduresReferred By ContactReferred To [facility] [place] Diagnoses 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) Procedures ENTEROSCOPY ENDOSCOPY UPPER SMALL INTESTINE Tiffani Morales MD [phone] [place] [address] Referral IDStatusTeresaJohn Paul Jones Hospital DateExpiration DateVisits RequestedVisits [id number] Auto-Generated Referral [facility] for visit Narrative* Outpatient Procedure (Routine) - ClosedSpecialtyDiagnoses / ProceduresReferred By ContactReferred To Contact [facility] Diagnoses Nausea and vomiting, unspecified vomiting type Left upper quadrant abdominal pain Procedures EGD DIAGNOSTIC ESOPHAGOGASTRODUODENOSCOPY TRANSORAL DIAGNOSTIC Anastasiya Mosqueda PA-C [address] [place] [address] [place] [address] Referral IDStatusReasonProsper DateExpiration DateVisits RequestedVisits [id number] Auto-Generated Referral [facility] for visit Narrative* Outpatient Procedure (Routine) - ClosedSpecialtyDiagnoses / ProceduresReferred By ContactReferred To Contact [facility] Diagnoses 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) Procedures ENTEROSCOPY ENDOSCOPY UPPER SMALL INTESTINE Tiffani Morales MD [address] [place] [address] [id number] Referral IDStatusReasonStreynoldsburg DateExpiration DateVisits RequestedVisits [id number] Auto-Generated Referral [facility] Advance Directives TypeDate RecordedPatient RepresentativeExplanationAdvance Directives and Living Will Advance Directive Response Recorded Date/ Time Advance Directives No March 18, 2017 10:30pm Summary Purpose Family History Relationship Condition Age at Onset Recorded Date/T mayra father Colon disorder Unknown Reason for Referral SpecialtyDiagnoses / ProceduresReferred By ContactReferred To [facility]Lif[facility] Diagnoses Nausea and vomiting, unspecified vomiting type Weight loss Procedures CONSULT TO NUTRITION THERAPY OFFICE/OUTPATIENT NEW HIGH MDM 60-74 MINUTES Anastasiya Mosqueda PA-C [address] [id number] Referral IDStatusReasonStart DateExpiration DateVisits RequestedVisits [id number] PCP Requested Referral [id number] / ProceduresReferred By ContactReferred To [facility] [place] Diagnoses Nausea and vomiting, unspecified vomiting type Left upper quadrant abdominal pain Procedures EGD DIAGNOSTIC ESOPHAGOGASTRODUODENOSCOPY TRANSORAL DIAGNOSTIC Anastasiya Mosqueda PA-C [address] [place] [address] [facility] [address] [place] [address] Referral IDStatMaryann DateExpiration DateVisits RequestedVisits [id number] Auto-Generated Referral Medications Administered Section Medication OrderMAR ActionAction DateDoseRateSite benzocaine 20% (TOPEX) TOPICAL, X (OR/PROCEDURE) PRN, Starting on Sat01/01/22 at 1606, Until Sat01/01/22 at 1606, Intraprocedure Given01/01/2022 4:06 PM EDT1 [place] NaCl 0.9% iv infusion 30 mL/hr, INTRAVENOUS, CONTINUOUS, Starting on Sat01/01/22 at 1600, Until Sat01/02/22 at 0407, Preprocedure New Bag/Syringe/Pbjera0101/01/2022 3:58 PM EDT30 mL/hr30 mL/hr Chief Complaint and Reason for Visit Chief Complaint Admit Date Ref: OSIEL Graham. SOB, COPD June 25, 025 11:29am Additional Source Comments Reason for Visit (unrecogniz ed section and content) ReasonCommentsMedication ManagementReasonOnset DateCommentsMedication Refill 1ReasonOnset DateCommentsMedication [id number] Date CommentsMedication [id number] DateCommentsMedication Refill 2ReasonOnset DateCommentsMedication [id number] AppointmentReasonCommentsAppointment CancelledReasonCommentsAbdominal PainNausea ReasonCommentsResultsReasonCommentsPatient QuestionReturning Patient's Call ResultsReasonCommentsResultsPost-EGDReasonOnset DateCommentsMedication Refill 2ReasonCommentsRefill RequestReasonCommentsMalnutritionReasonOnset Date CommentsMedication [id number]t ConfirmationReason Onset DateCommentsMedication Lugjou1304/20/2022ReasonCommentsMalnutritionReason CommentsPatient Question Care Teams (unrecognized sec tion and content) Team MemberRelationshipSpecialtyStart DateEnd Date Cristina Iqbal CNP [address] [place] [address] PCP - GeneralNurse Practitioner07/18/20Team MemberRelationshipSpecialtyStart Date End Date Cristina Iqbal CNP [address] [place] [address] PCP - GeneralNurse Practitioner07/18/20Team MemberRelationshipSpecialtyStart Date End Date Cristina Iqbal CNP [address] [place] [address] PCP - GeneralNurse Practitioner07/18/20Team MemberRelationshipSpecialtyStart Date End Date Cristina Iqbal CNP [address] [place] [address] PCP - GeneralNurse Practitioner07/18/20Team MemberRelationshipSpecialtyStart Date End Date Cristina Iqbal CNP [address] [place] [address] PCP - GeneralN[facility] [place] [facility] [place] Practitioner07/18/20Team MemberRelationshipSpecialtyStart Date End Date Cristina Iqbal, THERAPY DIRECTOR [address] [place] [address] PCP - GeneralFamily Medicine10/15/12Team MemberRelationshipSpecialtyStart DateEnd Date Cristina Iqbal, THERAPY DIRECTOR [address] [place] [address] PCP - Generalmily Medicine10/15/12Team MemberRelationshipSpecialtyStart DateEnd Date Cristina Iqbal, THERAPY DIRECTOR [address] [place] [address] PCP - GeneralMonroe [facility] Hospital And Clinicsly Medicine10/15/12Team MemberRelationshipSpecialtyStart DateEnd Date Cristina Iqbal, THERAPY DIRECTOR [address] [place] [address] PCP - GeneralMonroe [facility] Hospital And Clinicsly Medicine10/15/12Team MemberRelationshipSpecialtyStart DateEnd Date Cristina Iqbal, THERAPY DIRECTOR [address] [place] [address] PCP - Generalmily Medicine10/15/12Team MemberRelationshipSpecialtyStart DateEnd Date Cristina Iqbal, THERAPY DIRECTOR [address] [place] [address] PCP - GeneralFamily Medicine10/15/12Team MemberRelationshipSpecialtyStart DateEnd Date Cristina Iqbal, THERAPY DIRECTOR [address] [place] [address] PCP - GeneralFamily Medicine10/15/12Team MemberRelationshipSpecialtyStart DateEnd Date Cristina Iqbal, THERAPY DIRECTOR [address] [place] [address] PCP - GeneralFamily Medicine10/15/12Team MemberRelationshipSpecialtyStart DateEnd Date Cristina Iqbal, THERAPY DIRECTOR [address] [place] [address] PCP - GeneralNSaint [facility]07/18/20Team MemberRelationshipSpecialtyStart Date End Date Cristina Iqbal, THERAPY DIRECTOR [address] [place] [address] PCP - GeneralFamily Medicine10/15/12Team MemberRelationshipSpecialtyStart DateEnd Date Cristina Iqbal, THERAPY DIRECTOR [address] [place] [address] PCP - GeneralFamily Medicine10/15/12Team MemberRelationshipSpecialtyStart DateEnd Date Cristina Iqbal, THERAPY DIRECTOR [address] [place] [address] PCP - GeneralFamily Medicine10/15/12Team MemberRelationshipSpecialtyStart DateEnd Date Cristina Iqbal, THERAPY DIRECTOR [address] [place] [address] PCP - GeneralFamily Medicine10/15/12Team MemberRelationshipSpecialtyStart DateEnd Date Cirstina Iqbal, THERAPY DIRECTOR [address] [place] [address] PCP - GeneralNurse Practitioner07/18/20Team MemberRelationshipSpecialtyStart Date End Date Cristina Iqbal, THERAPY DIRECTOR [address] [place] [address] PCP - GeneralNurse Practitioner07/18/20Team MemberRelationshipSpecialtyStart Date End Date Cristina Iqbal, THERAPY DIRECTOR [address] [place] [address] PCP - Generalmily Medicine10/15/12Team MemberRelationshipSpecialtyStart DateEnd Date Cristina Iqbal, THERAPY DIRECTOR [address] [place] [address] PCP - GeneralMonroe [facility] Hospital And Clinicsly Medicine10/15/12Team MemberRelationshipSpecialtyStart DateEnd Date [facility] HospitalCristina macias, THERAPY DIRECTOR [address] [place] [address] PCP - [facility] Medicine10/15/12Team MemberRelationshipSpecialtyStart DateEnd Date Cristina Iqbal, THERAPY DIRECTOR [address] [place] [place] [address] PCP - [facility] Medicine10/15/12 Team Status: Active Member Role Status Dates Lala Zarco NP-C Primary Care Provider Active Team Status: Inactive Member Role Status Dates Cristina Iqbal Referring Provider Active Start: June 25, 2024 End: June 25magda Zuñiga MDAttdawna ProviderActiveStart: June 25, 2024 End: June 25, 2024Lala Zarco NP-[facility] Care ProviderActiveStart: June 25, 2024 End: June 25, 2024Team MemberRelationshipSpecialtyStart DateEnd Date Christin Rosado NP [address] [place] [address] [facility]CP - [facility]11/20/24 Cristina Iqbal CNP [address] [place] [address] ReferringWilliams Hospital Medicine11/20/24 INFORMATION SOURCE (unrecogn ized section and content) DATE CREATED AUTHOR 12/16/2021 [facility] DATE CREATED AUTHOR AUTHOR'S ORGANIZ ATION 12/20/2021 [facility] DATE CREATED AUTHOR AUTHOR'S ORGANIZ ATION 05/12/2022 [facility] DATE CREATED AUTHOR AUTHOR'S ORGANIZ ATION 05/31/2022 [facility] DATE CREATED AUTHOR AUTHOR'S ORGANIZ ATION 03/04/2024 [facility] DATE CREATED AUTHOR AUTHOR'S ORGANIZ ATION 03/29/2024 [facility] DATE CREATED AUTHOR AUTHOR'S ORGANIZ ATION 05/19/2024 [facility] DATE CREATED AUTHOR AUTHOR'S ORGANIZ ATION 07/20/2024 [facility] Source Comments (unrecognize d section and content) In the event this informatio n is protected by the Federal Confidentiality of Alcohol and Drug Abuse Patient Records regulations: The Federal rules restrict any use of the information to criminally investigate or prosecute any alcohol or drug abuse patient.[facility] ShawIn the event this information is protected by the Federal Confidentiality of Alcohol and Drug Abuse Patient Records regulations: The Federal rules restrict any use of the information to criminally investigate or prosecute any alcohol or drug abuse patient.[facility] ShawIn the event this information is protected by the Federal Confidentiality of Alcohol and Drug Abuse Patient Records regulations: The Federal rules restrict any use of the information to criminally investigate or prosecute any alcohol or drug abuse patient.[facility] ShawIn the event this information is protected by the Federal Confidentiality of Alcohol and Drug Abuse Patient Records regulations: The Federal rules restrict any use of the information to criminally investigate or prosecute any alcohol or drug abuse patient.[facility] ShawIn the event this information is protected by the Federal Confidentiality of Alcohol and Drug Abuse Patient Records regulations: The Federal rules restrict any use of the information to criminally investigate or prosecute any alcohol or drug abuse patient.[facility] ShawIn the event this information is protected by the Federal Confidentiality of Alcohol and Drug Abuse Patient Records regulations: The Federal rules restrict any use of the information to criminally investigate or prosecute any alcohol or drug abuse patient.[facility] ShawIn the event this information is protected by the Federal Confidentiality of Alcohol and Drug Abuse Patient Records regulations: The Federal rules restrict any use of the information to criminally investigate or prosecute any alcohol or drug abuse patient.[facility] ShawIn the event this information is protected by the Federal Confidentiality of Alcohol and Drug Abuse Patient Records regulations: The Federal rules restrict any use of the information to criminally investigate or prosecute any alcohol or drug abuse patient.[facility] ShawIn the event this information is protected by the Federal Confidentiality of Alcohol and Drug Abuse Patient Records regulations: The Federal rules restrict any use of the information to criminally investigate or prosecute any alcohol or drug abuse patient.[facility] ShawIn the event this information is protected by the Federal Confidentiality of Alcohol and Drug Abuse Patient Records regulations: The Federal rules restrict any use of the information to criminally investigate or prosecute any alcohol or drug abuse patient.[facility] ShawIn the event this information is protected by the Federal Confidentiality of Alcohol and Drug Abuse Patient Records regulations: The Federal rules restrict any use of the information to criminally investigate or prosecute any alcohol or drug abuse patient.[facility] ShawIn the event this information is protected by the Federal Confidentiality of Alcohol and Drug Abuse Patient Records regulations: The Federal rules restrict any use of the information to criminally investigate or prosecute any alcohol or drug abuse patient.[facility] ShawIn the event this information is protected by the Federal Confidentiality of Alcohol and Drug Abuse Patient Records regulations: The Federal rules restrict any use of the information to criminally investigate or prosecute any alcohol or drug abuse patient.[facility] ShawIn the event this information is protected by the Federal Confidentiality of Alcohol and Drug Abuse Patient Records regulations: The Federal rules restrict any use of the information to criminally investigate or prosecute any alcohol or drug abuse patient.[facility] ShawIn the event this information is protected by the Federal Confidentiality of Alcohol and Drug Abuse Patient Records regulations: The Federal rules restrict any use of the information to criminally investigate or prosecute any alcohol or drug abuse patient.[facility] ShawIn the event this information is protected by the Federal Confidentiality of Alcohol and Drug Abuse Patient Records regulations: The Federal rules restrict any use of the information to criminally investigate or prosecute any alcohol or drug abuse patient.[facility] ShawIn the event this information is protected by the Federal Confidentiality of Alcohol and Drug Abuse Patient Records regulations: The Federal rules restrict any use of the information to criminally investigate or prosecute any alcohol or drug abuse patient.[facility] ShawIn the event this information is protected by the Federal Confidentiality of Alcohol and Drug Abuse Patient Records regulations: The Federal rules restrict any use of the information to criminally investigate or prosecute any alcohol or drug abuse patient.[facility] ShawIn the event this information is protected by the Federal Confidentiality of Alcohol and Drug Abuse Patient Records regulations: The Federal rules restrict any use of the information to criminally investigate or prosecute any alcohol or drug abuse patient.[facility] ShawIn the event this information is protected by the Federal Confidentiality of Alcohol and Drug Abuse Patient Records regulations: The Federal rules restrict any use of the information to criminally investigate or prosecute any alcohol or drug abuse patient.[facility] ShawIn the event this information is protected by the Federal Confidentiality of Alcohol and Drug Abuse Patient Records regulations: The Federal rules restrict any use of the information to criminally investigate or prosecute any alcohol or drug abuse patient.[facility] ShawIn the event this information is protected by the Federal Confidentiality of Alcohol and Drug Abuse Patient Records regulations: The Federal rules restrict any use of the information to criminally investigate or prosecute any alcohol or drug abuse patient.[facility] Goals (unrecognized section and content) Goals may [...] BE BASED ON THE PRIMARY CLINICAL RECORDS. [facility] [employer] [facility]. provides no warranty or guarantee of the accuracy or completeness of information in this document.
--- OUTSIDE RECORDS SUMMARY | 2025-03-13 17:15 | XMS_ITS | Encounter Summary ---
Author Organization [facility] Address [address] [place], [place] [address] Care Team Providers Care Sourcing Consultant Name Role Phone Christin Rosado OSIEL Primary Care Provider Cristina Iqbal GROUP CONTRACT ANALYST Unavailable [phone] Source Comments In the event this information is protected by the Federal Confidentiality of Alcohol and Drug AbusePatient Records regulations: The Federal rules restrict any use of the information to criminally investigate or prosecute any alcohol or drug abuse patient.[facility] Encounter Details DateTypeDepartmentCare Team (Latest Contact Info)Qxbgvatsfhd74/21/2025Results Follow-Up Gastroenterology [address] [place] [address] Tiffani Morales MD [facility] [address] [place] [address] Social History Tobacco UseTypesPacks/DayYears UsedDateSmoking Tobacco: Every DayCigarettes0.538 Passive Smoke Exposure: CurrentSmokeless Tobacco: NeverAlcohol UseStandard Drinks/WeekCommentsNot Currently0 (1 standard drink = 0.6 oz pure alcohol)Area Deprivation IndexAnswerDate RecordedNational Score (1-100), lower number is lower kaya575102/26/2025State Score (1-10), lower number is lower uewq22904/29/2024 Data from: https://www.neighborhoodatlas.medicine.[facility].edu/. Last address used for ysbyrdkcyxi[address]/26/2025CommentsNoSex and Gender InformationValueDate RecordedSex Assigned at VkdsxHrakpd91/03/2022 9:42 PM EDT Legal QxbEcfmdx74/02/2012 8:10 AM ESTGender YrlwbsdoPlqsms45/03/2022 9:42 PM EDT Sexual XyoamohkqihJrblejhl51/03/2022 9:42 PM EDTdocumented as of this encounter Plan of Treatment Not on file documented as of this encounter Visit Diagnoses Not on filedocumented in this encounter Care Teams Team MemberRelationshipSpecialtyStart DateEnd Date Christin Rosado NP [address] [place] [address] PCP - GeneralFamily Medicine11/20/24 Cristina Iqbal, GROUP CONTRACT ANALYST [address] [place] [address] ReferringFamily Medicine11/20/24documented as of this encounter
--- OUTSIDE RECORDS SUMMARY | 2025-03-13 17:16 | XMS_ITS | Clinical Summary ---
Author Organization [facility] Address [address] [place] [address] Care Team Providers Care Hatchery Laborer Name Role Phone ReneeeduardoadrianoCristina Therese HOLLEY Primary Care Provider + [phone] Allergies No known active allergies Medications MedicationSigDispense QuantityRefillsLast FilledStart DateEnd DateStatus albuterol (PROVENTIL) 2.5 mg /3 mL (0.083 %) nebulizer solution 3 mL (2.5 mg total) .07/16/2019Active pantoprazole (PROTONIX) 40 MG tablet Take 1 (one) tablet (40 mg total) by mouth .07/16/2019Active polyethylene glycol (MIRALAX) 17 gram powder MIX 1 PACKET IN DRINK AND TAKE ONCE DAILY05/23/2020ctive Spiriva Respimat 2.5 mcg/actuation Mist TAKE 2 PUFFS BY MOUTH EVERY DAY07/04/2020ctive ALPRAZolam (XANAX) 0.5 MG tablet Indications:Generalized anxiety disorderTake 1 (one) tablet (0.5 mg total) by mouth 3 (three) times a day as needed for anxiety . 90 tablet ctive cloNIDine HCL (CATAPRES) 0.2 MG tablet Take 1 (one) tablet (0.2 mg total) by mouth nightly . 30 tablet ctive lamoTRIgine (LAMICTAL) 200 MG tablet Take 1 (one) tablet (200 mg total) by mouth daily . 30 tablet ctive OLANZapine (ZYPREXA) 10 MG tablet Take 1 (one) tablet (10 mg total) by mouth nightly . 30 tablet ctive Active Problems ProblemNoted DateDiagnosed DateModerate mixed bipolar I ggonnmrw71/03/2021leep apnea07/18/2020Generalized anxiety woysgmtu93/03/2021Incontinence of feces 07/18/20202956Uylqswsolqr22/03/2021hronic post-traumatic stress disorder (PTSD) 07/18/2020hronic obstructive pulmonary gpjwauu7407/18/2020Gastroesophageal reflux ymglxoz3207/18/2020 Social History Tobacco UseTypesPacks/DayYears UsedDateSmoking Tobacco: Every DaySmokeless Tobacco: NeverAlcohol UseStandard Drinks/WeekCommentsNot Currently0 (1 standard drink = 0.6 oz pure alcohol)PHQ-2AnswerDate RecordedPHQ-9 Total Sihph912 CommentsUnknownSex and Gender InformationValueDate RecordedSex Assigned at BirthNot on fileLegal CisLminsh95/09/2021 2:32 PM EDTGender IdentityNot on fileSexual OrientationNot on file Last Filed Vital Signs Vital SignReadingTime TakenCommentsBlood Lfjwkhbt923/72004/27/2022 2:38 PM EST Dxzkw474404/27/2022 2:38 PM ESTTemperature--Respiratory Teqc906504/27/2022 2:38 PM ESTOxygen Xspimryopr30%04/27/2022 2:38 PM ESTInhaled Oxygen Concentration-- Vxmuxh66.4 kg (109 lb)04/27/2022 2:38 PM GIJAzsrct899 cm (5' 8.5 )04/27/2022 2:38 PM ESTBody Mass Index16.33004/27/2022 2:38 PM EST Plan of Treatment Health MaintenanceDue DateLast DoneCommentsCT Htakdogydtcj38/22/1971Fecal DNA 1970Fecal occult blood test (FOBT,FIT)1970Wellness Visit1973 HIV Kfirylcvf83/22/1986Hepatitis C Kpgawvzrw94/22/1989Hepatitis B Vaccines (1 of 3 - 19+ 3-dose series)1989Pneumococcal Vaccine: 50+ Years (1 of 2 - PCV) 1989Tetanus/Diphtheria/Pertussis (1 - Tdap)10/06/19891146Lxpjkmekx89/22/2011 Flexible ktjesbommbzyv22/22/2021RSV Vaccines (1 - Risk 50-74 years 1-dose series)2020Zoster Vaccines (1 of 2)2020OVID-19 Vaccine (1 - 2024- season)2024Influenza Vaccine (#1)0628Epxegdfeioy46 Colorectal Cancer Screening/Yowuusbbyg50/21/2030HIB VaccinesAged OutNo longer eligible based on patient's age to complete this topicHPV VaccinesAged OutNo longer eligible based on patient's age to complete this topicHepatitis A VaccinesAged OutNo longer eligible based on patient's age to complete this topic IPV VaccinesAged OutNo longer eligible based on patient's age to complete this topicMeningococcal ACWY VaccineAged OutNo longer eligible based on patient's age to complete this topicMeningococcal B VaccineAged OutNo longer eligible based on patient's age to complete this topicRotavirus VaccinesAged OutNo longer eligible based on patient's age to complete this topic Insurance Care Teams Team MemberRelationshipSpecialtyStart DateEnd Date Cristina Iqbal, KISHAN [address] [place] [address] PCP - GeneralNurse Practitioner07/18/20
--- OUTSIDE RECORDS SUMMARY | 2025-03-13 17:16 | XMS_ITS | Clinical Summary ---
Author Organization [facility] Address [address] [place] [address] Care Team Providers Care Delivery Driver Name Role Phone Unavailable Primary Care Provider Unavailabl e Social History Tobacco UseTypesPacks/DayYears UsedDateSmoking Tobacco: Never Assessed CommentsUnknownSex and Gender InformationValueDate RecordedSex Assigned at Not on fileLegal BjiQegmas53/30/2022 12:25 AM EDTGender IdentityNot on file Sexual OrientationNot on file Plan of Treatment Not on file
--- OUTSIDE RECORDS SUMMARY | 2025-03-13 17:16 | XMS_ITS | Patient Health Record ---
Author Organization [facility] es Address [address] [place] [address] Care Team Providers Care Account Manager Trainee Name Role Phone Christin Rosado Primary Care Provider [phone] Yi Small Unavailable [phone] Allergies No Known Allergies Reason For Referral Reason PT CALLED 3X Pleas e attach last office visit note. Patient requesting referral to [facility]. Diagnosis 1 Nausea and vomiting in adult (R11.2) Referral Organization [facility] Referring Provider First Name Christin Referring Provider Last Name Alonzo Referring Provider Speciality Nurse Prac titioner Referred Provider [facility], REFERRAL DEPART MENT Referred Provider Specialty Gastroentero logy Referral Priority Routine Medications Medication SIG (Take, Route, Frequency, Duration) Notes Start Date End Date Status Ipratropium-Albuterol 0.5-2. 5 (3) MG/3ML Solution 3 mL as needed Inhalation as needed; Duration: 30 days ActiveDulera 100-5 MCG/ACT Aerosol2 puffs Inhalation daily; Duration: 30 days ActiveAlbuterol Sulfate HFA 108 (90 Base) MCG/ACT Aerosol Solution2 puffs Inhalation twice a day; Duration: 25 daysActiveDoxylamine Succinate (Sleep) 25 MG Tablet1 tablet at bedtime as needed Orally Once a day; Duration: 30 days 5ActiveCVS Sleep Aid Nighttime 25 MG Tablet2 tablet Orally Once a day; Duration: 30 daysActiveMirtazapine 15 MG Tablet1 tablet at bedtime Orally daily ActiveVitamin P3ZCPWkmylfZihcuywuzXnzslbunerZTWobli 200 MG Tablet1 tablet Orally daily; Duration: 30 daysActiveSpiriva Respimat 2.5 MCG/ACT Aerosol Solution2 puffs Inhalation twice a day; Duration: 30 daysActiveOLANZapine 10 MG Tablet1 tablet Orally daily; Duration: 30 daysActiveOLANZapine 2.5 MG Tablet1 tablet Orally daily; Duration: 30 daysActiveAmitriptyline HCl 25 MG Tablet1 tablet at bedtime Oral daily; Duration: 30 daysActiveOndansetron 8 MG Tablet Disintegrating1 tablet on the tongue and allow to dissolve as needed Orally every 8 hours as needed; Duration: 17zbgg765ActivecloNIDine HCl 0.1 MG Tablet1 tablet Orally daily; Duration: 30 daysActiveALPRAZolam 0.25 MG Tablet1 tablet Orally Twice a day; Duration: 30 daysActive Social History Tobacco Use: Social History Observation Description Date Details (start date - stop date) Former Smoker NA - NA Social History GeneralSocial InfoQuestionAnswerNotesDepression Screening (PHQ-9):Little interest or pleasure in doing thingsNearly every dayFeeling down, depressed, or hopelessNearly every dayTrouble falling or staying asleep, or sleeping too much Nearly every dayFeeling tired or having little energyNearly every dayPoor appetite or overeatingNot at allFeeling bad about yourself-or that you are a failure or have let yourself or your family downNearly every dayTrouble concentrating on things, such as reading the newspaper or watching television Nearly every dayMoving or speaking so slowly that other people could have noticed. Or the opposite being so fidgetyor restless that you have been moving around a lot more than usualNot at allThoughts that you would be better off , or of hurting yourself in some wayNot at allTotal Cbqkf01Euhszwhqsatpc Moderately severe depressionSubstance abuse/mental health issues of patient/familyPatient -DeniesAbility to understand healthcare/treatmentPatient: GoodSexual Hx:Had sex in the last 12 months (vaginal, oral, or anal)?Yes? with Men onlySocial/Support Concerns:Patient:NoBehaviors affecting healthPoor/Risky Behaviors:Denies-Communication Barrier:Language Barrier?:NoDrug/Alcohol:Social InfoQuestionAnswerNotesAUDIT-C (Standard)Did you have a drink containing alcohol in the past year?IpHnzswc3PmeqtzxytvtkvgQlakprvbQkjqtox Use:Social InfoQuestion AnswerNotesTobacco Control (Standard)Tobacco use:Former smoker? How long has it been since you last smoked?1-5 years Problems Problem Type SNOMED Code ICD Code Onset Dates Problem Status W/U Status Risk Notes Problem Anxiety (45014067) Anxiety (F41.9) ActiveconfirmedProblemBipolar disorder (62124533)Bipolar disorder (F31.9)Active confirmedProblemChronic obstructive pulmonary disease (64006440)COPD, moderate (J44.9)Activeconfirmed Vital Signs Heart Rate 117 /min 11/17/2024 Brggreobtcj07 degrees Fnqeenlhyy18/02/2025Respiratory Rate20 /min11/17/2024 Tlfzkakz52 %11/17/2024lood pressure oohevboca01 mm Hg11/17/20245049Tztogb6ad 8.5in in11/17/2024lood pressure nvbvviwc346 mm Hg11/17/20242720Wmlvcs762 lbs11/17/2024MI 20.83 kg/m211/17/2024 Encounters Encounter Location Date Provider Diagnosis [facility] [address] [place] [address] 08/12/2024 Christin Rosado Breast cancer screening by mammogram Z12.31 [facility] [address] [place] [address] 09/11/2024 Christin Rosado Nausea and vomiting in adult R11.2 [facility] [address] [place] [address] 11/04/2024 Christin Rosado Nausea and vomiting in adult R11.2 [facility] [address] [place] [address] 11/18/2024 Christinvish Knightoen Nausea and vomiting in adult R11.2 [facility] [address] [place] [address] 11/26/2024 Christin Rosado [facility] [place] [address]/19/2025 [facility] [place] [address]/Hanna SchoenBreast cancer screening by mammogram Z12.31 ; Nausea and vomiting in adult R11.2 ; Bipolar uyjvwwxhF39.9 and Acute respiratory failure, unspecified whether with hypoxia or hypercapnia J96.00FH[facility] SystemKvboplm[address] [place] [address]/Hannah SchoenNausea and vomiting in adult R11.2 and COPD, moderate J44.9[facility] [address] [place] [address]/04/2024Hanna SchoenNausea and vomiting in adult R11.2 Assessments Encounter Date Diagnosis (ICD Code) Assessment Notes Treatment Notes Treatment Clinical Notes Section Notes 09/29/2024 Nausea and vomiting in adult (IC D-10 - R11.2) Continue medication as prescribed. Encourage fluid intake and try to start with small sips of fluid. Watch for signs and symptoms of dehydration including decrease in urine output, dry mucus membranes, etc. Fluid intake is more important than food intake. Follow up with our office improvement of symptoms within the next few days. Seek emergency treatment if signs of dehydration occur such as decrease in urine, dry mouth, etc. Patient verbalizes understanding. 5COPD, moderate (ICD-10 - J44.9)COPD stable. Will continue current medication and treatment plan. F/u 3 months & PRN11/04/2024Nausea and vomiting in adult (ICD-10 - R11.2)11/17/2024Nausea and vomiting in adult (ICD-10 - R11.2) Continue medication as prescribed. Discussed recommendation for referral to GI for further evaluation due to length and severity of symptoms. Patient agreeable and verbalizes understanding.11/18/2024Nausea and vomiting in adult (ICD-10 - R11.2)08/12/2024reast cancer screening by mammogram (ICD-10 - Z12.31)09/11/2024 Nausea and vomiting in adult (ICD-10 - R11.2)08/11/2024reast cancer screening by mammogram (ICD-10 - Z12.31)Discussed breast cancer screening recommendations. Patient requests referral to be sent to [facility].08/11/2024Nausea and vomiting in adult (ICD-10 - R11.2)Use prescribed medication as directed and as needed. Discussed vitamin B6 and Unisom. Encouraged fluid intake and try to start with small sips of fluid. Watch for signs and symptoms of dehydration inc luding decrease in urine output, dry mucus membranes, etc. Fluid intake is more important than foodintake. Seek emergency treatment if signs of dehydration occur such as decrease in urine, dry mouth, etc. Follow up in office in 3 weeks if symptoms are not improved.5Bipolar disorder (ICD-10 - F31.9)Continue management with psych. Continue current medication regimen. Will monitor patient for worsening symptoms. No SI/HI if this occurs go to the ER/911.5Acute respiratory failure, unspecified whether with hypoxia or hypercapnia (ICD-10 - J96.00)Symptoms continue to improve with use of home oxygen and inhaler as needed. Pt should continue medication regimen as directed. Pt denied SOB, wheezing, coughing, chest tightness, activity intolerance, night awakenings at today's appointment. We discussed healthy home practices including but not limi kitty to: avoidance of tobacco smoke/secondhand smoke, 50% humidity in home is ideal moisture level, avoid mold. Pt verbalized understanding. Plan Of Treatment Pending Test Test Name Order Date MA Mamm Screen w/CAD if perf and 3D Kyrie 08/12/2024 Next Appt Details Provider Name:Yi Small, 03/15/2025 10:15:00 AM, [address] [place], [address], Insurance Providers Payer Name Payer Address Payer Phone Subscriber Number Group Number Insured Name Patient Relationship to Insured Coverage Start Date Coverage End Date [employer] [place] Medicaid [address] [place] [address] [id number] Harjinder BURRIS - patient is the [id number] 2024Wrap [facility]BD [facility] [address] [place] [id number], RHONDASelf - patient is the [id number] 2022 Medical (General) History Medical History History ICD Code BIPOLAR DEPRESSIONANXIETYPTSDHX VOMITING/DIARRHEACOPDHERNIASurgical History Surgery Date(Month/Year) CHOLECYSTECTOMY APPENDECTOMYINFECTION FROM THE R-TOQVUSQH-WHDPFPBVKVT IN [place] FOOT TWICE total abdominal hysterectomyCapsule EndoscopyHospitalization History Reason Date(Month/Year) Child [id number] surgicalPSYCH x4COPD/PNEUMONIAHERNIAVOMITING/DIARRHEA for a few days
[2025-03-13 17:22] LABS: SARS-CoV-2 Ag NEGATIVE (NEGATIVE)
--- NOTE | 2025-03-13 17:28 | XR_ITS ---
[facility] [place] [id number] Patient Name: SAI BURRIS MRN: [id number] date: 1970 Sex: F Assigned Patient Location: ER Current Patient Location: ER Accession/Order Number: [id number] Exam Date: 03/13/2025 17:48 Report Date: 03/13/2025 18:11 At the request of: VIOLETA MOCK DO Procedure: XR chest 2V Plain film chest 2 view HISTORY: Cough and shortness of breath COMPARISON: 05/29/2024 FINDINGS: SUPPORT DEVICES: None POSTSURGICAL CHANGES: None HEART: Within normal limits PULMONARY RUTHY: Within normal limits MEDIASTINUM: Unremarkable LUNGS AND PLEURA: No acute lung process, pleural effusion or pneumothorax identified. BONY STRUCTURES: Similar scoliosis ADDITIONAL FINDINGS None XR/XR chest 2V IMPRESSION: No acute process. Impression dictated by: Medardo Santos M.D. 03/13/2025 6:11 PM Dictation Location: [employer] [facility] Electronically authenticated by: [id number] Y Date: 03/13/2025 18:11
--- NOTE | 2025-03-13 17:28 | ECG_ITS ---
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 Measurements Intervals [place] Rate: 90 P: 63 [place]: 156 QRS: 83 QRSD: 76 T: 70 QT: 328 QTc: 376 Interpretive Statements 1100 Sinus rhythm 4068 Nonspecific Twave abnormality 8102 Low QRS voltage in chest leads 9130 borderline ECG Compared to ECG 05/29/2024 14:35:24 Low QRS voltage now present Sinus tachycardia no longer present Electronically Signed On 03-14-2025 13:11:03 EST by NICOLE POST M.D.
--- NOTE | 2025-03-13 17:32 | ED.GENADUL1 ---
HPI HPI - General Adult General Chief complaint: Shortness of Breath/Dyspnea Stated complaint: SOB, BODY ACHES, COUGH Time Seen by Provider: 03/13/25 16:40 Source: patient and family Mode of arrival: walk-in Limitations: no limitations History of Present Illness HPI narrative: Patient is a 55-year-old female, history significant for COPD on as needed home oxygen, presenting to the emergency department for 3-day history of shortness of breath and upper respiratory symptoms. She has been coughing and short of breath for the last 3 days, progressive getting worse. She has been using nebulized albuterol home, with minimal relief. She has some chest tightness, but denies history of previous ID or coronary artery disease. No fevers or chills. No abdominal pain, nausea, or vomiting. No history of DVT/PE. No history of CHF. Denies any leg swelling hemoptysis. No recent surgical procedures or immobilizations. Related Data Home Medications ?Medication ?Instructions ?Recorded ?Confirmed lamotrigine 200 mg tablet 200 mg PO .qhs 03/15/24 05/29/24 mirtazapine 7.5 mg tablet 7.5 mg PO BEDTIME 03/15/24 05/29/24 omeprazole 20 mg capsule,delayed 20 mg PO DAILY 03/15/24 05/29/24 release alprazolam 0.25 mg tablet 0.25 mg PO BID 05/05/24 05/29/24 amitriptyline 25 mg tablet 25 mg PO BEDTIME 05/05/24 05/29/24 olanzapine 10 mg tablet 10 mg PO .QHS 05/05/24 05/29/24 olanzapine 2.5 mg tablet 2.5 mg PO .qhs 05/05/24 05/29/24 tiotropium bromide 2.5 2 puff inhalation DAILY 05/05/24 05/29/24 mcg/actuation mist for inhalation (Spiriva Respimat) Previous Rx's ?Medication ?Instructions ?Recorded albuterol sulfate 90 mcg/actuation 2 inh inhalation Q6H PRN shortness 05/08/24 aerosol inhaler (Ventolin HFA) of breath or wheezing #6.7 grams ondansetron 4 mg disintegrating 4 mg PO Q6H PRN nausea and 05/08/24 tablet vomiting 4 days #10 tabs methocarbamol 750 mg tablet 750 mg PO Q6H PRN pain #30 tabs 05/17/24 fluticasone furoate 100 1 inh inhalation DAILY 30 days #60 06/01/24 mcg-vilanterol 25 mcg/dose ea inhalation powder (Breo Ellipta) ipratropium 0.5 mg-albuterol 3 mg 3 ml inhalation Q6H PRN shortness 06/01/24 (2.5 mg base)/3 mL nebulization of breath or wheezing 30 days #180 soln mL levofloxacin 750 mg tablet 750 mg PO QD 5 days #5 tabs 06/01/24 prednisone 20 mg tablet 40 mg (2 x 20 mg) PO QD 7 days #14 06/01/24 tabs ibuprofen 800 mg tablet 800 mg PO Q8H PRN pain #20 tabs 08/31/24 doxycycline hyclate 100 mg capsule 100 mg PO BID 5 days #10 caps 03/13/25 prednisone 20 mg tablet 40 mg (2 x 20 mg) PO DAILY 4 days 03/13/25 #8 tabs Allergies Allergy/AdvReac Type Severity Reaction Status Date / Time No Known Drug Allergies Allergy Verified 03/13/25 16:42 Opioid HPI Opioid Management Most Recent Opioid Data: Last Pain Scale 8 08/31/24, 09:45 Last ORT Total Score 9 05/29/24, 17:42 Last ORT Risk Category High Risk 05/29/24, 17:42 Ur Phencyclidine Scrn, (NEGATIVE) Negative 03/15/24, 09:10 Review of Systems ROS Status of ROS 10 or more systems reviewed and unremarkable except as noted in history and below PFSH PFSH Medical History Depression ?F32.A - Depression, unspecified (ICD-10) Bipolar 2 disorder ?F31.81 - Bipolar II disorder (ICD-10) Bipolar 1 disorder ?F31.9 - Bipolar disorder, unspecified (ICD-10) History of posttraumatic stress disorder (PTSD) ?Z86.59 - Personal history of other mental and behavioral disorders (ICD-10) Panic disorder ?F41.0 - Panic disorder [episodic paroxysmal anxiety] (ICD-10) COPD (chronic obstructive pulmonary disease) ?J44.9 - Chronic obstructive pulmonary disease, unspecified (ICD-10) Surgical History History of hysterectomy ?Z90.710 - Acquired absence of both cervix and uterus (ICD-10) History of cholecystectomy ?Z90.49 - Acquired absence of other specified parts of digestive tract (ICD-10) Hx of tonsillectomy ?Z90.89 - Acquired absence of other organs (ICD-10) History of appendectomy ?Z90.49 - Acquired absence of other specified parts of digestive tract (ICD-10) Family History Other Family history of CHF (congestive heart failure) Family history of COPD (chronic obstructive pulmonary disease) Family history of hypertension Social History Within the past year, how often did you have a drink containing alcohol: never Within the past year, how often did you have six or more drinks on one occasion: never Score interpretation: A score less than 3 is consistent with normal alcohol consumption. 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 Known occupational exposures/hazards: No Highest level of school completed/degree received: 11th grade Do you want help with school or training: No Are you now , , , , never or living with a partner: In a typical week, how many times do you talk on the telephone with family, friends, or neighbors: 3 or more times per week How often do you get together with friends or relatives: 3 or more times per week How often do you attend pentecostal or alevism services: never Do you belong to any clubs or organizations such as pentecostal groups unions, fraternal or athletic groups, or school groups: no Total score: 2 Score interpretation: A score of greater than or equal to 2 indicates the lowest level of social isolation. Little interest or pleasure in doing things: not at all Feeling down, depressed, or hopeless: not at all Feel stressed/tense/nervous/anxious/difficulty sleeping: not at all Do you think of yourself as: straight/heterosexual Gender Identity: female Exam Narrative Exam Narrative: CONSTITUTIONAL: Well-appearing, speaking full sentences, no acute distress, answering questions and following commands appropriately SKIN: Was warm and dry. EYES: Sclerae white. EARS, NOSE, THROAT: Moist oral mucosa. RESPIRATORY: Diffuse bilateral expiratory wheezing. No accessory muscles. CARDIOVASCULAR: Normal rate and regular rhythm. There is no S3, S4, murmur, rub. GASTROINTESTINAL: Abdomen is nondistended. MUSCULOSKELETAL: No peripheral edema. NEUROLOGIC: Patient is awake and alert. Facies were symmetrical. Constitutional Vital Signs, click to edit/add: Last Vital Signs Temp 98.1 F 03/13/25 16:42 Pulse 101 H 03/13/25 18:10 Resp 20 03/13/25 18:10 BP 117/92 H 03/13/25 16:42 Pulse Ox 98 03/13/25 17:41 O2 Del Method Room Air 03/13/25 17:41 Course Vital Signs Vital signs: Vital Signs Temperature 98.1 F 03/13/25 16:42 Pulse Rate 99 H 03/13/25 16:42 Respiratory Rate 18 03/13/25 16:42 Blood Pressure 117/92 H 03/13/25 16:42 Pulse Oximetry 96 03/13/25 16:42 Oxygen Delivery Method Room Air 03/13/25 16:42 Temperature 98.1 F 03/13/25 16:42 Pulse Rate 101 H 03/13/25 18:10 Respiratory Rate 20 03/13/25 18:10 Blood Pressure 117/92 H 03/13/25 16:42 Pulse Oximetry 98 03/13/25 17:41 Oxygen Delivery Method Room Air 03/13/25 17:41 Medical Decision Making MDM Narrative Medical decision making narrative: Patient is a 54-year-old female, history significant for COPD on as needed home oxygen, presenting to the emergency department for evaluation of progressively worsening shortness of breath and URI symptoms. Her vital signs on arrival are within normal limits. She is afebrile and hemodynamically stable. She is saturating 96% on room air in no respiratory distress. She has diffuse bilateral expiratory wheezing. Differential diagnoses include COPD exacerbation, pneumonia, viral URI, pneumothorax, ACS, or other electrolyte/metabolic derangement. Cardiac workup was obtained. She was treated with nebulized albuterol/ipratropium and oral prednisone. Chest x-ray independently reviewed/interpreted by myself demonstrated no acute cardiopulmonary process. 12 Lead EKG: Normal sinus rhythm at a normal rate. Normal axis. No ST segment elevations. QRS, FL, and QTc interval within normal limits. Final impression: normal sinus rhythm without evidence of acute myocardial ischemia Laboratory studies were unremarkable. No significant electrolyte or metabolic derangement. No evidence of acute kidney injury. No significant anemia, leukocytosis, or thrombocytopenia. Troponin nonelevated. COVID/flu swabs negative. On reevaluation, patient states she feels significantly proved. Her wheezing is improving as well on repeat auscultation. She feels comfortable being discharged home. I do believe she stable for discharge. She was given a prescription for prednisone 40 mg daily x 4 days. She was also given a prescription for doxycycline 100 mg x 5 days for treatment of atypical pneumonia. Return precautions were given including any new or concerning symptoms. Patient has albuterol inhalers and nebulizers at home. She was instructed follow-up with her PCP for further care. Patient understands and agrees to the plan. FINAL IMPRESSION: #Acute COPD exacerbation DISPOSITION: Discharge home CONDITION: Good Medical Records Medical records reviewed: Yes I reviewed the patient's medical records Lab Data Lab results reviewed: Yes I reviewed the patient's lab results Labs: Lab Results 03/13/25 03/13/25 03/13/25 Range/Units 16:48 18:00 18:10 WBC 12.7 H (4.0-11.0) 10^3/uL RBC 4.77 (4.20-5.40) 10^6/uL Hgb 14.3 (12.0-16.0) g/dL Hct 43.7 (36.0-48.0) % MCV 91.6 (81.0-99.0) fL MCH 30.0 (26.7-34.0) pg MCHC 32.7 (29.9-35.2) g/dL RDW 15.0 (11.0-15.0) % Plt Count 259 (150-450) 10^3/uL MPV 11.3 (9.5-13.5) fL Neut % (Auto) 74.9 (43.0-75.0) % Lymph % (Auto) 15.4 L (20.5-60.0) % [place] % (Auto) 8.0 (1.7-12.0) % Eos % (Auto) 1.0 (0.9-7.0) % Baso % (Auto) 0.3 (0.2-2.0) % Neut # (Auto) 9.5 H (1.4-6.5) 10^3/uL Lymph # (Auto) 2.0 (1.2-3.8) 10^3/uL [place] # (Auto) 1.0 H (0.3-0.8) 10^3/uL Eos # (Auto) 0.1 (0.0-0.7) 10^3/uL Baso # (Auto) 0.0 (0.0-0.1) 10^3/uL Abs Immat Gran (auto) 0.05 H (0.00-0.03) 10^3/uL Imm/Tot Granulo (auto) 0.4 (0.0-0.5) % Sodium 138 (136-145) mmol/L Potassium 3.3 L (3.5-5.1) mmol/L Chloride 102 (98-107) mmol/L Carbon Dioxide 28.0 (21.0-32.0) mmol/L Anion Gap 11.3 BUN 6.0 L (7.0-18.0) mg/dL Creatinine 0.89 (0.55-1.02) mg/dL Est GFR ( Amer) >60 (>=60 mL/min/1.73m^2) Est GFR (Non-Af Amer) >60 (>=60 mL/min/1.73m^2) BUN/Creatinine Ratio 6.7 Glucose 106 (74-106) mg/dL Calcium 9.5 (8.5-10.1) mg/dL Troponin I High Sens <4.0 L (4.0-51.3) pg/mL Influenza Type A Ag Negative Influenza Type B Ag Negative SARS-CoV-2 Ag (CV2AG) Negative (NEGATIVE) Imaging Data Chest x-ray: Attestation: I personally reviewed and interpreted this imaging study as follows: Radiologist's impression: ITS Impressions Chest X-Ray 03/13/25 17:28 IMPRESSION: No acute process. Impression dictated by: Medardo Santos M.D. 03/13/2025 6:11 PM Dictation Location: [place] [id number] Electronically authenticated by: [id number] Y Date: 03/13/2025 18:11 ECG Data Attestation: I personally reviewed and interpreted this ECG as follows: Discharge Plan Discharge Chief Complaint: Shortness of Breath/Dyspnea Clinical Impression: COPD exacerbation Patient Disposition: Home, Self-Care Time of Disposition Decision: 18:37 Condition: Good Mode of Transportation: Private Vehicle Prescriptions / Home Meds: New doxycycline hyclate 100 mg capsule 100 mg PO BID 5 Days Qty: 10 0RF prednisone 20 mg tablet 40 mg PO DAILY 4 Days Qty: 8 0RF No Action lamotrigine 200 mg tablet 200 mg PO .qhs omeprazole 20 mg capsule,delayed release(DR/EC) 20 mg PO DAILY mirtazapine 7.5 mg tablet 7.5 mg PO BEDTIME methocarbamol 750 mg tablet 750 mg PO Q6H PRN (Reason: pain) Qty: 30 0RF alprazolam 0.25 mg tablet 0.25 mg PO BID amitriptyline 25 mg tablet 25 mg PO BEDTIME olanzapine 2.5 mg tablet 2.5 mg PO .qhs Spiriva Respimat 2.5 mcg/actuation mist 2 puff INHALATION DAILY olanzapine 10 mg tablet 10 mg PO .QHS ondansetron 4 mg tablet,disintegrating 4 mg PO Q6H PRN (Reason: nausea and vomiting) 4 Days Qty: 10 0RF albuterol sulfate [Ventolin HFA] 90 mcg/actuation HFA aerosol inhaler 2 inh inhalation Q6H PRN (Reason: shortness of breath or wheezing) Qty: 6.7 0RF ipratropium-albuterol 0.5 mg-3 mg(2.5 mg base)/3 mL Solution For Nebulization 3 ml inhalation Q6H PRN (Reason: shortness of breath or wheezing) 30 Days Qty: 180 0RF Rx Instructions: please dispense #1 box prednisone 20 mg Tablet 40 mg PO QD 7 Days Qty: 14 0RF levofloxacin 750 mg Tablet 750 mg PO QD 5 Days Qty: 5 0RF fluticasone furoate-vilanterol [Breo Ellipta] 100-25 mcg/dose blister with device 1 inh inhalation DAILY 30 Days Qty: 60 0RF ibuprofen 800 mg tablet 800 mg PO Q8H PRN (Reason: pain) Qty: 20 0RF Print Language: Macedonian Instructions: COPD (Chronic Obstructive Pulmonary Disease) (ED) Referrals: [facility] [Primary Care Provider] - 1 week
[2025-03-13] MEDS: IPRATROPIUM/ALBUTEROL SULFATE 3 ML AMPUL.NEB 9 ML IH (17:49)
[2025-03-13] MEDS: PREDNISONE 20 MG TABLET 40 MG PO (18:17)
[2025-03-13 18:29] LABS: Hematocrit 43.7 % (36.0-48.0); Hemoglobin 14.3 g/dL (12.0-16.0); Immature Granulocytes Abs Auto 0.05 10^3/uL (0.00-0.03); Immature Granulocytes Pct Auto 0.4 % (0.0-0.5); Lymphocytes Absolute Auto 2.0 10^3/uL (1.2-3.8); Mean Corpuscular HGB Conc 32.7 g/dL (29.9-35.2); Mean Corpuscular Hemoglobin 30.0 pg (26.7-34.0); Mean Corpuscular Volume 91.6 fL (81.0-99.0); Platelet Count 259 10^3/uL (150-450); Red Blood Count 4.77 10^6/uL (4.20-5.40); White Blood Count 12.7 10^3/uL (4.0-11.0)
[2025-03-13 18:58] LABS: Anion Gap 11.3; Blood Urea Nitrogen 6.0 mg/dL (7.0-18.0); Calcium 9.5 mg/dL (8.5-10.1); Carbon Dioxide 28.0 mmol/L (21.0-32.0); Chloride 102 mmol/L (98-107); Estimated GFR (African America >60 (>=60 mL/min/1.73m^2); Estimated GFR (Non-African Ame >60 (>=60 mL/min/1.73m^2); Glucose 106 mg/dL (74-106); Potassium 3.3 mmol/L (3.5-5.1); Sodium 138 mmol/L (136-145)
--- NOTE | 2025-03-13 20:05 | ECG_ITS ---
[facility] Test Date: 2025-03-13 Pat Name: SAI BURRIS Department: Room: - Gender: Female [employer]istics: : 1970 Requested By: [id number] Order Number: [id number] Reading MD: NICOLE POST M.D. Measurements Intervals [place] Rate: 88 P: 58 [place]: 158 QRS: 86 QRSD: 76 T: 90 QT: 316 QTc: 361 Interpretive Statements 1100 Sinus rhythm 4068 Nonspecific [place] abnormality 8102 Low QRS voltage in chest leads 9130 borderline ECG Compared to ECG 03/13/2025 16:52:17 No significant changes Electronically Signed On 03-14-2025 13:11:34 EST by NICOLE POST M.D.
== END 2025-03-13 19:12 | disposition home or self-care (01) ==
PROVIDERS: Emergency Provider Student in an Organized Health Care Education/Training Program
DX: J44.1 Chronic obstructive pulmonary disease with (acute) exacerbation (principal); R05.9 Cough, unspecified; R06.02 Shortness of breath; Z87.891 Personal history of nicotine dependence
CPT/HCPCS: 36415; 71046; 80048; 84484; 85025; 87804; 87811; 93005; 94640; 99285; J7512